=== PATIENT | female | born 1960 | race Caucasian/White ===

== ENCOUNTER 2018-05-06 18:03 | Inpatient (IN) | payer MEDICARE, MEDICAID, SELFPAY ==
[2018-05-06] VITALS (24 sets, daily range): BP systolic 73–143; BP diastolic 42–113; PULSE 85–133; RESP 4–28; TEMP 36.5–38.4; O2SAT 88–95
[2018-05-06 19:19] LABS: Lactate-non-spesis 2.2 mmol/l (0.6-1.4)
[2018-05-06 19:21] LABS: Abs Immature Grans 0.01 k/cumm (0.0-0.09); Absolute Basophil Count 0.02 k/cumm (0.0-0.2); Absolute Eosinophil Count 0.13 k/cumm (0.0-0.7); Absolute Lymphocyte Count 1.55 k/cumm (1.2-3.4); Absolute Monocyte Count 0.46 k/cumm (0.11-0.7); Absolute Neutrophil Count 4.17 k/cumm (1.2-6.7); Basophils % 0.3; Eosinophils % 2.1; HGB 12.2 g/dL (12.0-15.5); Immature Grans % 0.2; Lymphocytes % 24.4; Mean Corp. HGB Concentration 32.1 g/dL (32.0-36.0); Mean Corpuscular Hemoglobin 29.7 pg (27.0-33.0); Mean Corpuscular Volume 92.5 fL (80-95); Mean Platelet Volume 9.3 fL (8.0-11.0); Monocytes % 7.3; Neutrophils % 65.7; Platelet Count 204 x1000/uL (130-400); RBC 4.11 m/cumm (4.00-5.20); RBC Distribution Width 14.9 % (11.7-14.6); White Blood Cell Count 6.34 k/cumm (4.4-10.8)
[2018-05-06 19:34] LABS: ALT 21 U/L (12-78); AST 27 U/L (15-37); Albumin 3.3 g/dL (3.4-5.0); Alkaline Phosphatase 113 U/L (46-116); Anion Gap 7.9 mmol/L (3-11); BUN 12 mg/dL (7-18); Bilirubin, Total 0.4 mg/dL (0.2-1.0); CO2 28.1 mmol/L (21.0-32.0); CREATININE 1.47 mg/dL (0.55-1.02); Calcium 8.2 mg/dL (8.5-10.1); Chloride 100 mmol/L (98-107); Estimated GFR 36.38 (mL/min/1.73m2); Glucose 111 mg/dL (70-100); Potassium 3.7 mmol/L (3.5-5.1); Sodium 136 mmol/L (136-145); Total Protein 7.7 g/dL (6.4-8.2)
[2018-05-06 19:43] LABS: NT-proBNP 284 pg/mL; Troponin I < 0.02 ng/mL (0.00-0.06)
--- NOTE | 2018-05-06 19:50 | NUR.NOTE ---
Nursing Note: Pt awake and alert, no acute distress. currently off unit getting XR. states she normally does not wear oxygen, sating 92% on 2L NC. Port-a-cath accessed by Tyler GRACIA. Pt states she has hx of breat cancer but it not currently on radiation or chemo tx. will continue to monitor.
[2018-05-06 19:53] LABS: D-Dimer 1315 ng/mlFEU (<500)
--- NOTE | 2018-05-06 19:55 | DI.RAD_ITS ---
SYMPTOM/DIAGNOSIS: COUGH, SOB, H/O BREAST CA PA AND LATERAL CHEST: Comparison is made with 04/03/17. Cardiac silhouette appears stable. The tip of the indwelling central venous catheter is in good position in the superior vena cava. Pulmonary vasculature is within normal limits. There are increased lung markings in the left base medially. This may represent atelectasis or pneumonia. No other infiltrates, effusions or pneumothoraces are identified. Degenerative changes are seen in the spine. IMPRESSION: Left basilar infiltrate medially. This may represent atelectasis or pneumonia.
--- NOTE | 2018-05-06 20:05 | DI.VRAD_ITS ---
EXAM: XR Chest, 2 Views EXAM DATE/TIME: 05/06/2018 6:49 PM CLINICAL HISTORY: 58 years old, female; Signs and symptoms; Cough; Prior surgery; Surgery date: 1-6 months; Surgery type: Left mastectomy in march. ; Patient HX: Cough, SOB, abdominal issues since today. TECHNIQUE: XR of the chest, 2 views. COMPARISON: CR CHEST 2 VIEWS PA,LAT 04/03/2017 10:07 AM FINDINGS: Tubes, catheters and devices: Indwelling central venous catheter port tip superimposed over the lower SVC. Lungs: Minimal patchy density in the left medial lung base on the PA radiograph, likely posterior on the lateral study. Differential diagnosis includes atelectasis and small pneumonia. Clear right lung. Pleural space: No pleural effusion or pneumothorax. Heart/Mediastinum: Unremarkable. No cardiomegaly. Bones/joints: Unremarkable. IMPRESSION: Small area of left lower lobe airspace disease. Differential diagnosis includes atelectasis and pneumonia. Dictated and Authenticated by: Ortiz Mclean MD. Ordering:SIMIN Cuevas MD
[2018-05-06] MEDS: Hydrocortisone 10 MG TAB 20 MG PO (20:07)
[2018-05-06] MEDS: Albuterol/Ipratropium 3 ML UPD VIAL UPD (20:20)
[2018-05-06] MEDS: Oseltamivir 75 MG CAP PO (20:21)
--- NOTE | 2018-05-06 20:23 | NUR.NOTE ---
Nursing Note: Pt on neb tx, no acute resp ditress, sob at rest 89% on 2L NC, bumped to 3L . + flu, meds given as ordered. LS exp wheezes and dim throughout. occ productive cough. IVF running through port-a-cath. NSR on personnel monitor. taklen po fluids with out issue. awaiting bed placement for med surg admission. will continue to monitor, call light in reach.
--- NOTE | 2018-05-06 20:43 | ED.GENADUL_ITS ---
Discharge Plan Disposition Condition: Improving Discharge Details Chief Complaint: GenMedical Reason For Visit: INFLUENZA, HYPOTENSION, HYPOXIA Admit Date/Time: 05/06/18 20:30 Admit Provider: Gm Hutson Attending Provider: Terry Fernandez Primary Care Provider: JENNI DELUNA ED Provider: Faith Alcazar Discharge Instructions Activity:: Activity as Tolerated Equipment/Supplies:: Resume home health services and [facility] oxygen home o2 Diet:: Carb Counting Discharge Orders Discharge Orders: Discharge Order (Routine); Ordered 05/10/18 Ordered By: Ami Sanchez Discharge Data Discharge Date/Time-TO BE ENTERED AT DEPARTURE: 05/06/18 21:45 Medical Decision Making Candace Austin is a 58-year-old woman with history of breast cancer status post recent resection now in remission on oral hormonal therapy, COPD, diabetes, hypo-pituitaries him presenting to the emergency department with cough, generalized body aches, mild shortness of breath with exertion for the past week and diarrhea today. On exam patient is hypotensive 91/55. Nontoxic appearing. Lungs are clear to auscultation. Concern for pneumonia versus influenza versus less likely PE, ACS, CHF versus other. Possible early sepsis. Exam/history is not consistent with meningitis, acute aortic process, acute emergent abdominal process. Plan for EKG, chest x-ray, screening labs, flu swab, IV fluid hydration. I discussed the patient with Dr. Johnson of endocrinology at [facility], who recommended patient receive 20 mg of hydrocortisone at this time, with doubling of her hydrocortisone dose for tomorrow. No further recommendations at this time. EKG interpreted by me: Shows sinus rhythm at 89, normal axis, no acute ischemic changes, nondiagnostic EKG. Lactate 2.2, creatinine elevated at 1.47. Normal white count. Influenza positive. On reassessment patient reports that she feels unchanged. She does have some hypoxia to 88-89% on room air. Patient placed on 3 L of nasal cannula with O2 sat 91-92%. Plan for Tamiflu. Chest x-ray shows small area of left lower lobe airspace disease, possible atelectasis versus pneumonia. Given patient is afebrile, no white count and flu positive, will hold antibiotics at this time. D-dimer is elevated, however given patient is not tachycardic, has no chest pain, and shortness of breath is only mild with exertion doubt PE as etiology in setting of overall clinical picture. Will hold CT chest at this time. Plan for admission for influenza and hypoxia, hypotension with underlying comorbidities. Clinical impression: Influenza, hypertension, hypoxia Disposition: [facility] inpatient Medical Records Medical records reviewed: Yes I reviewed the patient's medical records. Lab Data Lab results reviewed: Yes I reviewed the patient's lab results. 05/06/18 19:14 Nasopharynx Influenza Types A,B Antigen - Final Laboratory Tests Range/Units 05/06/18 05/06/18 05/06/18 19:13 19:13 19:13 WBC (4.4-10.8) k/cumm RBC (4.00-5.20) m/cumm Hgb (12.0-15.5) g/dL Hct (36.0-46.0) % MCV (80-95) fL MCH (27.0-33.0) pg MCHC (32.0-36.0) g/dL RDW (11.7-14.6) % Plt Count (130-400) x1000/uL MPV (8.0-11.0) fL Immature Gran % Neutrophils % Lymphocytes % Monocytes % Eosinophils % Basophils % Absolute Neutrophils (1.2-6.7) k/cumm Absolute Lymphocytes (1.2-3.4) k/cumm Absolute Monocytes (0.11-0.7) k/cumm Absolute Eosinophils (0.0-0.7) k/cumm Absolute Basophils (0.0-0.2) k/cumm D-Dimer (<500) ng/mlFEU Sodium (136-145) mmol/L 136 Potassium (3.5-5.1) mmol/L 3.7 Chloride (98-107) mmol/L 100 Carbon Dioxide (21.0-32.0) mmol/L 28.1 Anion Gap (3-11) mmol/L 7.9 BUN (7-18) mg/dL 12 Creatinine (0.55-1.02) mg/dL 1.47 H Estimated GFR/1.73 m2 (mL/min/1.73m2) 36.38 Glucose (70-100) mg/dL 111 H Lactate (0.6-1.4) mmol/l 2.2 H Calcium (8.5-10.1) mg/dL 8.2 L Total Bilirubin (0.2-1.0) mg/dL 0.4 AST (15-37) U/L 27 ALT (12-78) U/L 21 Alkaline Phosphatase (46-116) U/L 113 Troponin I (0.00-0.06) ng/mL < 0.02 NT-Pro-B Natriuret Pep ( - 299) pg/mL 284 Total Protein (6.4-8.2) g/dL 7.7 Albumin (3.4-5.0) g/dL 3.3 L Range/Units 05/06/18 05/06/18 19:13 19:13 WBC (4.4-10.8) k/cumm 6.34 RBC (4.00-5.20) m/cumm 4.11 Hgb (12.0-15.5) g/dL 12.2 Hct (36.0-46.0) % 38.0 MCV (80-95) fL 92.5 MCH (27.0-33.0) pg 29.7 MCHC (32.0-36.0) g/dL 32.1 RDW (11.7-14.6) % 14.9 H Plt Count (130-400) x1000/uL 204 MPV (8.0-11.0) fL 9.3 Immature Gran % 0.2 Neutrophils % 65.7 Lymphocytes % 24.4 Monocytes % 7.3 Eosinophils % 2.1 Basophils % 0.3 Absolute Neutrophils (1.2-6.7) k/cumm 4.17 Absolute Lymphocytes (1.2-3.4) k/cumm 1.55 Absolute Monocytes (0.11-0.7) k/cumm 0.46 Absolute Eosinophils (0.0-0.7) k/cumm 0.13 Absolute Basophils (0.0-0.2) k/cumm 0.02 D-Dimer (<500) ng/mlFEU 1315 H Sodium (136-145) mmol/L Potassium (3.5-5.1) mmol/L Chloride (98-107) mmol/L Carbon Dioxide (21.0-32.0) mmol/L Anion Gap (3-11) mmol/L BUN (7-18) mg/dL Creatinine (0.55-1.02) mg/dL Estimated GFR/1.73 m2 (mL/min/1.73m2) Glucose (70-100) mg/dL Lactate (0.6-1.4) mmol/l Calcium (8.5-10.1) mg/dL Total Bilirubin (0.2-1.0) mg/dL AST (15-37) U/L ALT (12-78) U/L Alkaline Phosphatase (46-116) U/L Troponin I (0.00-0.06) ng/mL NT-Pro-B Natriuret Pep ( - 299) pg/mL Total Protein (6.4-8.2) g/dL Albumin (3.4-5.0) g/dL ECG Data Attestation: I personally reviewed and interpreted this ECG (s) as follows: HPI General Mode of arrival: wheelchair . Date/Time Provider Initiated Documentation: 05/06/18 18:24 . Limitations to Documentation: no limitations . Information obtained by: patient, RN notes reviewed and old records reviewed . HPI Narrative: Candace Austin is a 58-year-old woman with history of obesity, COPD, breast cancer, diabetes, pituitary gland resection presenting to the cough, shortness of breath, diarrhea, generalized body aches. Patient reports that she had left breast resection for breast cancer 1 month ago, and is currently on oral hormonal therapy. No chemotherapy, no radiation. Patient reports that for the past week she has had cough body aches, and mild shortness of breath. She has been drinking fluids but has had some decreased appetite. Had 3 episodes of diarrhea earlier today, the diarrhea seems to have stopped. No vomiting, no fever, no rash, no numbness/weakness. Patient takes hydrocortisone 25 mg daily after pituitary resection in the past. Patient reports that she does have oxygen at home, though very rarely uses it for her COPD. She reports that her baseline O2 saturation is 93%. Related Data Home Medications Medication Instructions Recorded Confirmed Lantus U-100 Insulin 50 units SQ BID 04/03/17 05/06/18 Lyrica 200 mg PO TID 04/03/17 05/06/18 Novolog U-100 Insulin aspart 30 units SQ TID 04/03/17 05/06/18 Spiriva Respimat 1 puff INHALATION DAILY 04/03/17 05/06/18 Symbicort 2 puff INHALATION BID 04/03/17 05/06/18 aspirin [Aspir-81] 81 mg PO DAILY 04/03/17 05/06/18 atorvastatin [Lipitor] 20 mg PO HS 04/03/17 05/06/18 carbamazepine 200 mg PO BID 04/03/17 05/06/18 cetirizine [Zyrtec] 10 mg PO DAILY 04/03/17 05/06/18 cyanocobalamin (vitamin B-12) 1,000 mcg PO DAILY 04/03/17 05/06/18 [Vitamin B-12] diphenoxylate-atropine [Lomotil] 1 tab PO PRN PRN 04/03/17 05/06/18 duloxetine [Cymbalta] 60 mg PO HS 04/03/17 05/06/18 ferrous sulfate 325 mg PO TID 04/03/17 05/06/18 folic acid 1 mg PO DAILY 04/03/17 05/06/18 montelukast [Singulair] 10 mg PO DAILY 04/03/17 05/06/18 ondansetron HCl [Zofran] 8 mg PO TID PRN 04/03/17 05/06/18 dulaglutide [Trulicity] 1.5 mg SUBCUT QWEEK 05/06/18 05/06/18 hydrocortisone 5 mg PO DAILY 05/06/18 05/06/18 hydrocortisone 20 mg PO DAILY 05/06/18 05/06/18 levothyroxine 150 mcg PO DAILY 05/06/18 05/06/18 lisinopril 5 mg PO DAILY 05/06/18 05/06/18 benzonatate 200 mg PO TID PRN #15 cap 05/10/18 guaifenesin [Mucinex] 600 mg PO BID #10 tab 05/10/18 hydrocortisone 10 mg PO DAILY #61 tab 05/10/18 levofloxacin [Levaquin] 750 mg PO DAILY #5 tab 05/10/18 oseltamivir [Tamiflu] 75 mg PO BID #6 cap 05/10/18 Previous Rx's Medication Instructions Recorded benzonatate 200 mg PO TID PRN #15 cap 05/10/18 guaifenesin [Mucinex] 600 mg PO BID #10 tab 05/10/18 hydrocortisone 10 mg PO DAILY #61 tab 05/10/18 levofloxacin [Levaquin] 750 mg PO DAILY #5 tab 05/10/18 oseltamivir [Tamiflu] 75 mg PO BID #6 cap 05/10/18 Allergies Allergy/AdvReac Type Severity Reaction Status Date / Time bee venom protein (honey bee) Allergy Unknown Unverified 05/06/18 18:23 Latex, Natural Rubber AdvReac Intermediate Unverified 05/06/18 18:23 adhesive tape AdvReac Mild Unverified 05/06/18 18:23 General Stated Complaint: GenMedical CARMEN: 3 Review of Systems Review of Systems Constitutional: denies fevers Eyes: denies eye pain ENT: denies facial pain, dental pain, sore throat Cardiovascular: denies chest pain, edema Respiratory: Reports SOB, cough GI: denies abdominal pain, vomiting, diarrhea : denies flank pain MSK: denies back pain, neck pain, arthralgias, myalgias Skin: denies rash Neuro: denies headaches, numbness, weakness PFSH Medical History Obesity (Chronic) Dyslipidemia (Chronic) Hypothyroidism (Chronic) Depression (Chronic) Pneumonia (Acute) Influenza B (Acute) Diabetes mellitus (Chronic) COPD (chronic obstructive pulmonary disease) (Chronic) History of breast cancer (Chronic) Hypopituitarism (Chronic) Social History Smoking/Tobacco Use Status: Former Tobacco Use Do you feel safe in your relationship?: Yes Additional Social history: , with 2 children. She is not working and on disability. Has a history of tobacco, quit in 1992. Reports rare use of alcohol only. Exam Narrative Exam Narrative: Constitutional: [id number], pleasant, conversing normally HENT: head atraumatic/normocephalic/normal inspection, mucous membranes moist Eyes: conjunctiva normal, sclera normal, pupils 3mm b/l Neck: no stridor, normal ROM, trachea midline Chest: Healing surgical incision over left chest, no drainage or fluctuance Resp: normal work of breathing, LCTAB Cardio: normal rate, normal rhythm, no murmur appreciated Back: normal inspection, no rash Skin: warm, dry, normal color, no rash Neuro: alert, not altered, grossly non-focal, normal tone Psych: normal mood, normal affect, normal behavior Course Vital Signs Temperature 36.9 C 05/06/18 18:21 Pulse 97 H 05/06/18 18:21 Respiratory Rate 18 05/06/18 18:21 Blood Pressure 91/55 L 05/06/18 18:21 Pulse Oximetry 91 L 05/06/18 18:21 Temperature 36.9 C 05/06/18 18:21 Pulse 97 H 05/06/18 18:21 Respiratory Rate 18 05/06/18 18:21 Respiratory Effort Incrsd Work of Breathing 05/06/18 18:22 Blood Pressure 91/55 L 05/06/18 18:21 Blood Pressure Position Sitting 05/06/18 18:21 Pulse Oximetry 91 L 05/06/18 18:21 Oxygen Delivery Method Room Air 05/06/18 18:21 Oxygen Flow Rate 0 05/06/18 18:21 Pain Level 0 05/06/18 18:21
--- NOTE | 2018-05-06 22:51 | HPE_ITS ---
Date of service: 05/06/18 Time of Service: 22:48 Assessment and Plan (1) Influenza B: Current visit: Yes Status: Acute Continue oseltamivir. Monitor creatinine carefully and renally dose medication if warranted. (2) Pneumonia: Current visit: Yes Status: Acute Evidence of potential left lower lobe infiltrate by imaging in patient complaining of cough with purulent sputum and found to be hypoxic. Potential for bacterial co-infection with pneumonia in patient currently diagnosed with influenza. Continue oseltamivir as above, and as the patient is at a high risk for serious complications from influenza given her history of chronic lung disease, DM, and morbid obesity will cover her aggressively with broad-spectrum antibiotics for potential pneumonia as well. Initiate Levo floxacin as well as vancomycin for additional MRSA coverage. Also check blood cultures and sputum culture, initiate IV fluids, monitor blood pressure carefully, and recheck lactate. (3) SIERRA (acute kidney injury): Current visit: Yes Status: Acute Potentially prerenal in the setting of fever and acute illness. Continue IV fluids, renally dose medications when appropriate, and avoid nephrotoxins. (4) COPD (chronic obstructive pulmonary disease): Current visit: Yes Status: Chronic Continue home inhalers, duo nebs on a as needed basis. (5) Hypopituitarism: Current visit: Yes Status: Chronic Patient chronically takes hydrocortisone at home. Given acute illness will stress dose with IV hydrocortisone, and wean as infection is treated. (6) DVT prophylaxis: Current visit: Yes Status: Acute Heparin SC. PPI for GI prophylaxis as well, given acute illness as well as need for steroid therapy. (7) Advance directive discussed with patient: Current visit: Yes Status: Acute DNR/DNI confirmed. Daughter present during discussion with patient. History of Present Illness Chief Complaint: Dyspnea Narrative: 58 year woman with a past medical history significant for Obesity and IDDM, being admitted from [facility] Emergency Department with a diagnosis of Influenza and potential pneumonia. Mrs. Maynard has a prior medical history significant for IDDM, COPD, dyslipid emia, depression, hypothyroidism, and obesity. She was diagnosed with breast cancer in the past, s/p resections in the past and now a left-sided mastectomy, chronically maintained on hormonal therapy. She also endorses a history of a pituitary mass, s/p resection with resultant Hypopituitarism. The patient presented to the ED at the behest of her daughter, with complaints of a 2-day history of cough with green sputum production, dyspnea, and myalgias. Workup in the ED was remarkable for mildly elevated lactate, SIERRA, and a positive flu swab. Her CXR also showed a LLL opacity, potentially on the basis of infiltrate and pneumonia. She was also found to be mildly hypoxic on room air, and hypotensive by exam. She was admitted for further evaluation and treatment. Review of Systems Review of Systems All systems reviewed & are unremarkable except as noted in HPI and below [facility] Medical History Obesity (Chronic) Dyslipidemia (Chronic) Hypothyroidism (Chronic) Depression (Chronic) Pneumonia (Acute) Influenza B (Acute) Diabetes mellitus (Chronic) COPD (chronic obstructive pulmonary disease) (Chronic) History of breast cancer (Chronic) Hypopituitarism (Chronic) Social History additional social history: , with 2 children. She is not working and on disability. Has a history of tobacco, quit in 1992. Reports rare use of alcohol only. Meds Home Medications Medication Instructions Recorded Confirmed Type Lantus U-100 Insulin 50 units SQ BID 04/03/17 05/06/18 History Lyrica 200 mg PO TID 04/03/17 05/06/18 History Novolog U-100 Insulin aspart 30 units SQ TID 04/03/17 05/06/18 History Spiriva Respimat 1 puff INHALATION DAILY 04/03/17 05/06/18 History Symbicort 2 puff INHALATION BID 04/03/17 05/06/18 History aspirin [Aspir-81] 81 mg PO DAILY 04/03/17 05/06/18 History atorvastatin [Lipitor] 20 mg PO HS 04/03/17 05/06/18 History carbamazepine 200 mg PO BID 04/03/17 05/06/18 History cetirizine [Zyrtec] 10 mg PO DAILY 04/03/17 05/06/18 History cyanocobalamin (vitamin B-12) 1,000 mcg PO DAILY 04/03/17 05/06/18 History [Vitamin B-12] diphenoxylate-atropine [Lomotil] 1 tab PO PRN PRN 04/03/17 05/06/18 History duloxetine [Cymbalta] 60 mg PO HS 04/03/17 05/06/18 History ferrous sulfate 325 mg PO TID 04/03/17 05/06/18 History folic acid 1 mg PO DAILY 04/03/17 05/06/18 History montelukast [Singulair] 10 mg PO DAILY 04/03/17 05/06/18 History ondansetron HCl [Zofran] 8 mg PO TID PRN 04/03/17 05/06/18 History dulaglutide [Trulicity] 1.5 mg SUBCUT QWEEK 05/06/18 05/06/18 History hydrocortisone 5 mg PO DAILY 05/06/18 05/06/18 History hydrocortisone 20 mg PO DAILY 05/06/18 05/06/18 History levothyroxine 150 mcg PO DAILY 05/06/18 05/06/18 History lisinopril 5 mg PO DAILY 05/06/18 05/06/18 History Allergies Allergy/AdvReac Type Severity Reaction Status Date / Time bee venom protein (honey bee) Allergy Unknown Unverified 05/06/18 18:23 Latex, Natural Rubber AdvReac Intermediate Unverified 05/06/18 18:23 adhesive tape AdvReac Mild Unverified 05/06/18 18:23 Exam Narrative Exam Narrative: General: Patient appears comfortable, AAOX3, NAD Neck: Supple CV: Regular, mildly tachycardic, S1S2, No rubs, murmurs, or gallops. Pulmonary: Minimal bibasilar crackles with clear air entry otherwise. Minimal wheezing limited to the bases Abdomen: + Bowel Sounds, soft, nontender, nondistended, obese in contour Vascular: Bilateral nonpitting lower extremity edema, with chronic appearing hyperpigmentation of the skin Neurologic: CN II-XII grossly intact. No focal deficits. Psych: Normal mood and affect. Results Imaging Chest x-ray: report reviewed Additional studies: EXAM: XR Chest, 2 Views EXAM DATE/TIME: 05/06/2018 6:49 PM CLINICAL HISTORY: 58 years old, female; Signs and symptoms; Cough; Prior surgery; Surgery date: 1-6 months; Surgery type: Left mastectomy in march. ; Patient HX: Cough, SOB, abdominal issues since today. TECHNIQUE: XR of the chest, 2 views. COMPARISON: CR CHEST 2 VIEWS PA,LAT 04/03/2017 10:07 AM FINDINGS: Tubes, catheters and devices: Indwelling central venous catheter port tip superimposed over the lower SVC. Lungs: Minimal patchy density in the left medial lung base on the PA radiograph, likely posterior on the lateral study. Differential diagnosis includes atelectasis and small pneumonia. Clear right lung. Pleural space: No pleural effusion or pneumothorax. Heart/Mediastinum: Unremarkable. No cardiomegaly. Bones/joints: Unremarkable. IMPRESSION: Small area of left lower lobe airspace disease. Differential diagnosis includes atelectasis and pneumonia. Labs : 05/06/18 19:13 05/06/18 19:13 Laboratory Results - last 24 hr 05/06/18 05/06/18 05/06/18 19:13 19:13 19:13 WBC RBC Hgb Hct MCV MCH MCHC RDW Plt Count MPV Immature Gran % Neutrophils % Lymphocytes % Monocytes % Eosinophils % Basophils % Absolute Neutrophils Absolute Lymphocytes Absolute Monocytes Absolute Eosinophils Absolute Basophils D-Dimer Sodium 136 Potassium 3.7 Chloride 100 Carbon Dioxide 28.1 Anion Gap 7.9 BUN 12 Creatinine 1.47 H Estimated GFR/1.73 m2 36.38 Glucose 111 H Lactate 2.2 H Calcium 8.2 L Total Bilirubin 0.4 AST 27 ALT 21 Alkaline Phosphatase 113 Troponin I < 0.02 NT-Pro-B Natriuret Pep 284 Total Protein 7.7 Albumin 3.3 L 05/06/18 05/06/18 19:13 19:13 WBC 6.34 RBC 4.11 Hgb 12.2 Hct 38.0 MCV 92.5 MCH 29.7 MCHC 32.1 RDW 14.9 H Plt Count 204 MPV 9.3 Immature Gran % 0.2 Neutrophils % 65.7 Lymphocytes % 24.4 Monocytes % 7.3 Eosinophils % 2.1 Basophils % 0.3 Absolute Neutrophils 4.17 Absolute Lymphocytes 1.55 Absolute Monocytes 0.46 Absolute Eosinophils 0.13 Absolute Basophils 0.02 D-Dimer 1315 H Sodium Potassium Chloride Carbon Dioxide Anion Gap BUN Creatinine Estimated GFR/1.73 m2 Glucose Lactate Calcium Total Bilirubin AST ALT Alkaline Phosphatase Troponin I NT-Pro-B Natriuret Pep Total Protein Albumin Rapid Influenza A & B Final 05/06/18-1932 RESULT POSITIVE FOR FLU B ANTIGEN. If influenza is suspected and treatment is clinically indicated, antiviral treatment should NOT be withheld from patients despite negative rapid antigen screening result. When a positive rapid antigen screening result would initiate prophylactic treatment of many potential contacts, Last Vital Signs Temp 36.5 C 05/06/18 19:38 Pulse 133 H 05/06/18 21:00 Resp 22 05/06/18 21:00 BP 122/103 H 05/06/18 21:00 Pulse Ox 91 L 05/06/18 20:30
[2018-05-06] MEDS: Pantoprazole 40 MG VIAL IVP (23:29)
[2018-05-06] MEDS: LEVOFLOXACIN 750 MG/150 ML BAG 100 MG IVPB (23:29)
[2018-05-06] MEDS: Normal Saline Flush 10 ML SYR IVP (23:29)
[2018-05-06] MEDS: Acetaminophen 325 MG TAB PO (23:30)
[2018-05-06] MEDS: Heparin 5,000 UNITS/ML VIAL 5000 UNITS SC (23:30)
[2018-05-06] MEDS: Hydrocortisone SOD SUC. 100 MG VIAL 50 MG IVP (23:30)
[2018-05-06] MEDS: DULoxetine 30 MG CAP 60 MG PO (23:30)
[2018-05-06] MEDS: Atorvastatin 20 MG TAB PO (23:30)
[2018-05-06] MEDS: Insulin Glargine 300 UNITS/3 ML PEN 50 UNITS SC (23:46)
[2018-05-07] VITALS (16 sets, daily range): BP systolic 107–152; BP diastolic 48–77; PULSE 86–100; RESP 17–22; TEMP 36.5–37.5; O2SAT 91–96
[2018-05-07] MEDS: Heparin 5,000 UNITS/ML VIAL 5000 UNITS SC ×3 (06:16→22:16)
[2018-05-07] MEDS: Hydrocortisone SOD SUC. 100 MG VIAL 50 MG IVP ×3 (06:16→22:16)
[2018-05-07] MEDS: Levothyroxine 150 MCG TAB PO (06:16)
[2018-05-07 07:13] LABS: Lactate-non-spesis 0.9 mmol/l (0.6-1.4)
[2018-05-07 07:28] LABS: Absolute Basophil Count 0.01 k/cumm (0.0-0.2); Absolute Eosinophil Count 0.04 k/cumm (0.0-0.7); Absolute Lymphocyte Count 0.67 k/cumm (1.2-3.4); Absolute Monocyte Count 0.25 k/cumm (0.11-0.7); Absolute Neutrophil Count 2.83 k/cumm (1.2-6.7); Basophils % 0.3; Eosinophils % 1.1; HCT 34.5 % (36.0-46.0); HGB 10.8 g/dL (12.0-15.5); Lymphocytes % 17.6; Mean Corp. HGB Concentration 31.3 g/dL (32.0-36.0); Mean Corpuscular Hemoglobin 29.3 pg (27.0-33.0); Mean Corpuscular Volume 93.5 fL (80-95); Mean Platelet Volume 9.5 fL (8.0-11.0); Monocytes % 6.6; Neutrophils % 74.4; Platelet Count 194 x1000/uL (130-400); RBC 3.69 m/cumm (4.00-5.20); RBC Distribution Width 14.9 % (11.7-14.6)
[2018-05-07 07:29] LABS: Anion Gap 8.6 mmol/L (3-11); BUN 12 mg/dL (7-18); CO2 27.4 mmol/L (21.0-32.0); CREATININE 1.25 mg/dL (0.55-1.02); Calcium 8.2 mg/dL (8.5-10.1); Chloride 101 mmol/L (98-107); Estimated GFR 43.87 (mL/min/1.73m2); Magnesium 1.8 mg/dL (1.8-2.4); Potassium 4.3 mmol/L (3.5-5.1); Sodium 137 mmol/L (136-145)
[2018-05-07 07:40] LABS: Glucose 212 mg/dL (70-100)
--- NOTE | 2018-05-07 08:11 | PDOC.CMIN ---
- If Service Date Differs Date of service: 05/07/18 Time of Service: 08:11 Care Management Initial Assess REASON FOR HOSPITALIZATION:: Influenza, hypotension, hypoxia PAST MEDICAL HISTORY/PAST SURGICAL HISTORY:: DM, breast CA with left mastectomy, right mastectomy planned for June 2018, COPD, hypothyroid, hypopituitary PREVIOUS FUNCTIONAL STATUS/SOCIAL/FAMILY SUPPORTS:: Candace lives at home with her daughter in [facility]. She is disabled. She has 2 daughters locally. She receives choices for care highest needs, and her daughter Kiki is her primary provider. She uses a walker for ambulation, in a wheeled walker for distance. She is dependent on her daughter for transportation to and from appointments. Her primary care is in [facility]. CURRENT FUNCTIONAL STATUS:: Candace is lying in bed, she is alert and engaged with memory care director during assessment. She states she had a left mastectomy in March 2018 she is planned to have a right mastectomy in June 2018. She is a patient of cancer Center at [facility]. She states she does well at home with her daughter, and that her daughter Kiki is her DPOA ADVANCE DIRECTIVES:: None on file at [facility] Has patient been provided with information about the portal?: Yes Did the patient sign up for the portal?: No INSURANCE COVERAGE / FINANCIAL ISSUES:: Medicare, Medicaid, choices for care highest needs. CURRENT HOME/COMMUNITY SERVICES/EQUIPMENT:: Wheeled walker, choices for care highest needs, caregiver is her daughter Kiki. PRIMARY CARE PHYSICIAN:: Jan [facility] POTENTIAL DISCHARGE NEEDS:: Follow-up appointment scheduled primary care provider prior to discharge. PATIENT/FAMILY EDUCATION NEEDS:: Discharge education, limitations, follow-up plan of care, ask me 3 and self-management. ANTICIPATED BARRIERS TO DISCHARGE:: None identified at this time peer TRANSPORTATION:: Via private car with daughter at time of discharge. PLAN:: Candace is currently receiving antibiotics, and Tamiflu. She remains on precautions in the intensive care unit. Anticipate she will be discharged home resumption of highest needs through choices for care. She will return home with her daughter in [facility].
--- NOTE | 2018-05-07 08:14 | INITIAL_ITS ---
- If Service Date Differs Date of service: 05/07/18 Time of Service: 08:11 Care Management Initial Assess REASON FOR HOSPITALIZATION:: Influenza, hypotension, hypoxia PAST MEDICAL HISTORY/PAST SURGICAL HISTORY:: DM, breast CA with left mastectomy, right mastectomy planned for June 2018, COPD, hypothyroid, hypopituitary PREVIOUS FUNCTIONAL STATUS/SOCIAL/FAMILY SUPPORTS:: Candace lives at home with her daughter in [facility]. She is disabled. She has 2 daughters locally. She receives choices for care highest needs, and her daughter Kiki is her primary provider. She uses a walker for ambulation, in a wheeled walker for distance. She is dependent on her daughter for transportation to and from appointments. Her primary care is in [facility]. CURRENT FUNCTIONAL STATUS:: Candace is lying in bed, she is alert and engaged with care management coordinator during assessment. She states she had a left mastectomy in March 2018 she is planned to have a right mastectomy in June 2018. She is a patient of cancer Center at [facility]. She states she does well at home with her daughter, and that her daughter Kiki is her DPOA ADVANCE DIRECTIVES:: None on file at [facility] Has patient been provided with information about the portal?: Yes Did the patient sign up for the portal?: No INSURANCE COVERAGE / FINANCIAL ISSUES:: Medicare, Medicaid, choices for care highest needs. CURRENT HOME/COMMUNITY SERVICES/EQUIPMENT:: Wheeled walker, choices for care highest needs, caregiver is her daughter Kiki. PRIMARY CARE PHYSICIAN:: Jan Coleman [facility] POTENTIAL DISCHARGE NEEDS:: Follow-up appointment scheduled primary care provider prior to discharge. PATIENT/FAMILY EDUCATION NEEDS:: Discharge education, limitations, follow-up plan of care, ask me 3 and self-management. ANTICIPATED BARRIERS TO DISCHARGE:: None identified at this time peer TRANSPORTATION:: Via private car with daughter at time of discharge. PLAN:: Candace is currently receiving antibiotics, and Tamiflu. She remains on precautions in the intensive care unit. Anticipate she will be discharged home resumption of highest needs through choices for care. She will return home with her daughter in [facility].
[2018-05-07] MEDS: Ferrous Sulfate 325 MG TAB PO ×3 (08:42→19:54)
[2018-05-07] MEDS: Oseltamivir 75 MG CAP PO ×2 (08:43→19:54)
[2018-05-07] MEDS: Aspirin E.C. 81 MG TABEC PO (08:43)
[2018-05-07] MEDS: Folic Acid 1 MG TAB PO (08:43)
[2018-05-07] MEDS: carBAMazepine 200 MG TAB PO ×2 (08:43→19:54)
[2018-05-07] MEDS: Cetirizine 10 MG TAB PO (08:43)
[2018-05-07] MEDS: Montelukast 10 MG TAB PO (08:43)
[2018-05-07] MEDS: Cyanocobalamin 500 MCG TAB 1000 MCG PO (08:43)
[2018-05-07] MEDS: Pregabalin 100 MG CAP 200 MG PO ×3 (08:43→19:54)
[2018-05-07] MEDS: Insulin Aspart 300 UNITS/3 ML PEN SC ×4 (09:12→22:17)
[2018-05-07] MEDS: Insulin Glargine 300 UNITS/3 ML PEN 50 UNITS SC ×2 (09:12→19:55)
--- NOTE | 2018-05-07 09:24 | PHARADMIT ---
Addendum entered by Macarena Johnson 05/08/18 11:04: Pharmacy Note Subjective pt with oneumonia,COPD, influenza, per morning report pt getting better Objective on 3L O2 with saO2 94%, Assessment vancomycin, levofloxacin, tamiflu continues Plan port culture to be drawn, PT/OT to be ordered, nystatin to be ordered Original Note: Admission Pharmacy Clinical Review INFLUENZA, HYPOTENSION, HYPOXIA, (Flu-positive) (nned to check port-tip culture) Code Status DNR/DNI Current Weight Wgt- 157.4 kg Renally Cleared and Narrow Therapeutic Index Meds CrCl~48.8 mL/min Meds-OK QTc Value / Action Taken QTc-423 na BP Control, Fever BP-139/77 Tmax- 38.4C Electrolytes reviewed Na- 137 K+4.3 Mag-1.8 DVT Prophylaxis ASA, Heparin SC Opiate Usage / Scheduled Bowel Regimen Ordered No Yes Plt/SCr for Heparin / Enoxaparin Plts-194 SCr-1.25 INR for Warfarin na H/H stable, WBC/Bands H&H- 10.8/34.5 WBC- 3.80 Antibiotic appropriateness Levaquin, Vancomycin, Tamiflu Cultures and Sensitivities Fliu-Posiitive, Blood-pending Surgical ABX d/c within 24 hr na DM control / Insulin Dosing BG-212 Aspart, Glargine Heart Failure (Check EF%) (MCKENNA's, B-Block, Diuretics) none IV to PO Switch No Home Meds Reviewed Yes Home Meds Not Ordered Lisinopril, Hydrocortisone tabs on hold while on IV Comments PATIENTS' OWN (Dulaglutide [Trulicity] 1.5 MG)
[2018-05-07 10:50] LABS: Troponin I < 0.02 ng/mL (0.00-0.06)
[2018-05-07] MEDS: Acetaminophen 325 MG TAB PO (12:06)
[2018-05-07] MEDS: Normal Saline 1,000 ML 150 ML IV (13:51)
--- NOTE | 2018-05-07 18:15 | W.PM.PROGNOT ---
Date of Service Date of service: 05/07/18 Time of Service: 12:00 Assessment and Plan (1) Influenza B: Current visit: Yes Status: Acute Continue oseltamivir. Improving (2) Pneumonia: Current visit: Yes Status: Acute CAP with hypoxia, present on admission. Now at her baseline oxygen requirement. Continue levofloxacin and vancomycin. Sputum culture pending. Blood cultures still pending. Keep current dose of steroids for tonight, start to taper tomorrow. D/c IVF. (3) COPD (chronic obstructive pulmonary disease): Current visit: Yes Status: Chronic d/c spiriva as duonebs will be scheduled. Continue symbicort, hydrocortisone; add prn albuterol, antitussives (4) SIERRA (acute kidney injury): Current visit: Yes Status: Acute Improved. At this point, clinically euvolemic - will d/c IVF and recheck Cr in am. (5) Hypopituitarism: Current visit: Yes Status: Chronic Continue IV hydrocortisone, and wean as infection is treated. (6) DVT prophylaxis: Current visit: Yes Status: Acute Heparin SC. PPI for GI prophylaxis as well, given acute illness as well as need for steroid therapy. (7) Advance directive discussed with patient: Current visit: Yes Status: Acute DNR/DNI (8) Discharge planning issues: Current visit: Yes Status: Acute Anticipated discharge home within 48 hours Subjective Interval history since last seen: Ms Maynard states she feels a lot better. She denies dizziness, chest pain. She is less short of breath. Her cough is better, but still productive of yellow green stuff. Denies nausea and vomiting. Exam Narrative Exam Narrative: General: Very pleasant obese female, laying comfortably in bed, A&OX3 HEENT: EOMI, MMM Heart: RRR, no m/r/g Lungs: wheezing on expiration B GI: abdomen is soft, nontender, nondidstended Extremities: nonpitting edema BLE's, no clubbing or cyanosis Objective Objective Clinical Data: Abnormal lab results 05/06/18 05/06/18 05/06/18 Range/Units 19:13 19:13 19:13 WBC (4.4-10.8) k/cumm RBC (4.00-5.20) m/cumm Hgb (12.0-15.5) g/dL Hct (36.0-46.0) % MCHC (32.0-36.0) g/dL RDW 14.9 H (11.7-14.6) % Absolute Lymphocytes (1.2-3.4) k/cumm D-Dimer (<500) ng/mlFEU Creatinine 1.47 H (0.55-1.02) mg/dL Glucose 111 H (70-100) mg/dL Lactate 2.2 H (0.6-1.4) mmol/l Calcium 8.2 L (8.5-10.1) mg/dL Albumin 3.3 L (3.4-5.0) g/dL 05/06/18 05/07/18 05/07/18 Range/Units 19:13 06:58 06:58 WBC 3.80 L D (4.4-10.8) k/cumm RBC 3.69 L (4.00-5.20) m/cumm Hgb 10.8 L (12.0-15.5) g/dL Hct 34.5 L (36.0-46.0) % MCHC 31.3 L (32.0-36.0) g/dL RDW 14.9 H (11.7-14.6) % Absolute Lymphocytes 0.67 L (1.2-3.4) k/cumm D-Dimer 1315 H (<500) ng/mlFEU Creatinine 1.25 H (0.55-1.02) mg/dL Glucose 212 H D (70-100) mg/dL Lactate (0.6-1.4) mmol/l Calcium 8.2 L (8.5-10.1) mg/dL Albumin (3.4-5.0) g/dL Vital Signs Temperature 36.5 C 05/07/18 14:48 Temperature Source Temporal Artery Scan 05/07/18 14:48 Pulse 88 05/07/18 14:48 Pulse Rhythm Regular 05/07/18 14:48 Pulse 92 H 05/07/18 08:00 Respiratory Rate 18 05/07/18 14:48 Respiratory Effort 05/07/18 14:48 Respiratory Depth Normal 05/07/18 14:48 Respiratory Pattern Normal 05/07/18 14:48 Blood Pressure 123/54 L 05/07/18 14:48 Blood Pressure Mean 68 05/07/18 12:12 Blood Pressure Position Supine 05/07/18 08:40 Pulse Oximetry 95 05/07/18 14:48 Oxygen Delivery Method Nasal Cannula 05/07/18 14:48 Oxygen Flow Rate 2 05/07/18 14:48 Pain Level 8 05/07/18 14:48 Comment 05/07/18 14:48 Intake & Output 05/06/18 05/07/18 05/07/18 23:59 11:59 23:59 Intake Total 1090 / 1720 630 / 1720 Output Total 250 / 250 Balance 840 / 1470 630 / 1470 Weight 157.397 kg 157.397 kg Intake: IV 500 / 650 150 / 650 Oral 590 / 1070 480 / 1070 Output: Urine 250 / 250 Other: Urine Color Yellow Urine Appearance Clear Urine Odor None Comment incontinent a very large amount Voiding Methods Bedside Commode Laboratory Results WBC 3.80 k/cumm (4.4-10.8) L D 05/07/18 06:58 RBC 3.69 m/cumm (4.00-5.20) L 05/07/18 06:58 Hgb 10.8 g/dL (12.0-15.5) L 05/07/18 06:58 Hct 34.5 % (36.0-46.0) L 05/07/18 06:58 MCV 93.5 fL (80-95) 05/07/18 06:58 MCH 29.3 pg (27.0-33.0) 05/07/18 06:58 MCHC 31.3 g/dL (32.0-36.0) L 05/07/18 06:58 RDW 14.9 % (11.7-14.6) H 05/07/18 06:58 Plt Count 194 x1000/uL (130-400) 05/07/18 06:58 MPV 9.5 fL (8.0-11.0) 05/07/18 06:58 Immature Gran % 0.0 05/07/18 06:58 Neutrophils % 74.4 05/07/18 06:58 Lymphocytes % 17.6 05/07/18 06:58 Monocytes % 6.6 05/07/18 06:58 Eosinophils % 1.1 05/07/18 06:58 Basophils % 0.3 05/07/18 06:58 Absolute Neutrophils 2.83 k/cumm (1.2-6.7) 05/07/18 06:58 Absolute Lymphocytes 0.67 k/cumm (1.2-3.4) L 05/07/18 06:58 Absolute Monocytes 0.25 k/cumm (0.11-0.7) 05/07/18 06:58 Absolute Eosinophils 0.04 k/cumm (0.0-0.7) 05/07/18 06:58 Absolute Basophils 0.01 k/cumm (0.0-0.2) 05/07/18 06:58 D-Dimer 1315 ng/mlFEU (<500) H 05/06/18 19:13 Sodium 137 mmol/L (136-145) 05/07/18 06:58 Potassium 4.3 mmol/L (3.5-5.1) 05/07/18 06:58 Chloride 101 mmol/L (98-107) 05/07/18 06:58 Carbon Dioxide 27.4 mmol/L (21.0-32.0) 05/07/18 06:58 Anion Gap 8.6 mmol/L (3-11) 05/07/18 06:58 BUN 12 mg/dL (7-18) 05/07/18 06:58 Creatinine 1.25 mg/dL (0.55-1.02) H 05/07/18 06:58 Estimated GFR/1.73 m2 43.87 (mL/min/1.73m2) 05/07/18 06:58 Glucose 212 mg/dL (70-100) H D 05/07/18 06:58 Lactate 0.9 mmol/l (0.6-1.4) 05/07/18 06:58 Calcium 8.2 mg/dL (8.5-10.1) L 05/07/18 06:58 Magnesium 1.8 mg/dL (1.8-2.4) 05/07/18 06:58 Total Bilirubin 0.4 mg/dL (0.2-1.0) 05/06/18 19:13 AST 27 U/L (15-37) 05/06/18 19:13 ALT 21 U/L (12-78) 05/06/18 19:13 Alkaline Phosphatase 113 U/L (46-116) 05/06/18 19:13 Troponin I < 0.02 ng/mL (0.00-0.06) 05/07/18 06:58 NT-Pro-B Natriuret Pep 284 pg/mL (-299) 05/06/18 19:13 Total Protein 7.7 g/dL (6.4-8.2) 05/06/18 19:13 Albumin 3.3 g/dL (3.4-5.0) L 05/06/18 19:13
[2018-05-07] MEDS: guaiFENesin 600 MG TABCR PO (19:54)
[2018-05-07] MEDS: DULoxetine 30 MG CAP 60 MG PO (22:16)
[2018-05-07] MEDS: Atorvastatin 20 MG TAB PO (22:16)
[2018-05-07] MEDS: Pantoprazole 40 MG VIAL IVP (23:19)
[2018-05-07] MEDS: LEVOFLOXACIN 750 MG/150 ML BAG 100 MG IVPB (23:19)
[2018-05-07] MEDS: Normal Saline Flush 10 ML SYR IVP (23:20)
[2018-05-08] MEDS: Hydrocortisone SOD SUC. 100 MG VIAL 50 MG IVP ×2 (05:54→13:56)
[2018-05-08] MEDS: Heparin 5,000 UNITS/ML VIAL 5000 UNITS SC ×3 (05:54→21:24)
[2018-05-08] MEDS: Normal Saline Flush 10 ML SYR IVP ×3 (05:54→13:57)
[2018-05-08] MEDS: Levothyroxine 150 MCG TAB PO (05:54)
--- NOTE | 2018-05-08 08:25 | PDOC.CMPRO ---
- If Service Date Differs Date of service: 05/08/18 Time of Service: 08:25 Care Management Progress Note S/O: Candace remains acute today she continues on IV antibiotics and Tamiflu. She will be discharged home when she is medically ready per provider. Her daughter is here with her today providing support. A:Candace is a 58 year old female admitted with influenza and pneumonia P:Candace remains acute she will return home when medically ready. Resumption of choices for care highest needs and oxygen through [facility]. Her daughter will transport her home when medically ready.
--- NOTE | 2018-05-08 08:33 | CMPROGNOTE_ITS ---
- If Service Date Differs Date of service: 05/08/18 Time of Service: 08:25 Care Management Progress Note S/O: Candace remains acute today she continues on IV antibiotics and Tamiflu. She will be discharged home when she is medically ready per provider. Her daughter is here with her today providing support. A:Candace is a 58 year old female admitted with influenza and pneumonia P:Candace remains acute she will return home when medically ready. Resumption of choices for care highest needs and oxygen through [facility]. Her daughter will transport her home when medically ready.
[2018-05-08 08:38] LABS: Absolute Basophil Count 0.01 k/cumm (0.0-0.2); Absolute Eosinophil Count 0.04 k/cumm (0.0-0.7); Absolute Lymphocyte Count 0.79 k/cumm (1.2-3.4); Absolute Monocyte Count 0.36 k/cumm (0.11-0.7); Absolute Neutrophil Count 3.42 k/cumm (1.2-6.7); Basophils % 0.2; Eosinophils % 0.9; HCT 32.6 % (36.0-46.0); HGB 10.5 g/dL (12.0-15.5); Lymphocytes % 17.1; Mean Corp. HGB Concentration 32.2 g/dL (32.0-36.0); Mean Corpuscular Hemoglobin 29.8 pg (27.0-33.0); Mean Corpuscular Volume 92.6 fL (80-95); Mean Platelet Volume 9.5 fL (8.0-11.0); Monocytes % 7.8; Platelet Count 187 x1000/uL (130-400); RBC 3.52 m/cumm (4.00-5.20); RBC Distribution Width 14.8 % (11.7-14.6); White Blood Cell Count 4.62 k/cumm (4.4-10.8)
[2018-05-08 08:54] VITALS: BP 123/78; PULSE 84; RESP 20; TEMP 36.7; O2SAT 92
[2018-05-08] MEDS: Insulin Glargine 300 UNITS/3 ML PEN 50 UNITS SC ×2 (08:55→19:28)
[2018-05-08] MEDS: Insulin Aspart 300 UNITS/3 ML PEN SC ×4 (08:55→21:28)
[2018-05-08] MEDS: Folic Acid 1 MG TAB PO (08:57)
[2018-05-08] MEDS: guaiFENesin 600 MG TABCR PO ×2 (08:57→19:27)
[2018-05-08] MEDS: Pregabalin 100 MG CAP 200 MG PO ×3 (08:57→19:27)
[2018-05-08] MEDS: Ferrous Sulfate 325 MG TAB PO ×3 (08:58→19:27)
[2018-05-08] MEDS: Cyanocobalamin 500 MCG TAB 1000 MCG PO (08:58)
[2018-05-08] MEDS: Oseltamivir 75 MG CAP PO ×2 (08:58→19:27)
[2018-05-08] MEDS: Montelukast 10 MG TAB PO (08:58)
[2018-05-08] MEDS: carBAMazepine 200 MG TAB PO ×2 (08:58→19:27)
[2018-05-08] MEDS: Cetirizine 10 MG TAB PO (08:58)
[2018-05-08] MEDS: Aspirin E.C. 81 MG TABEC PO (08:58)
[2018-05-08 09:05] LABS: Anion Gap 8.9 mmol/L (3-11); BUN 14 mg/dL (7-18); CO2 27.1 mmol/L (21.0-32.0); Calcium 8.3 mg/dL (8.5-10.1); Chloride 101 mmol/L (98-107); Glucose 222 mg/dL (70-100); Magnesium 1.7 mg/dL (1.8-2.4); Potassium 4.2 mmol/L (3.5-5.1); Sodium 137 mmol/L (136-145)
--- NOTE | 2018-05-08 11:37 | W.INDIABCONS ---
Date of service: 05/08/18 Time of Service: 11:37 Diabetes Inpatient Consult DESCRIPTION/ASSESSMENT: Appreciate diabetes consult for Candace Maynard who is hospitalized with influenza. A1c 7.9 BMI 52 Ms. Maynard manages diabetes at home with Trulicity, glargine 50units twice daily, and Novolog 30u with each meal. Here she is receiving the same basal insulin, but only moderate insulin correction, and trulicity. Blood sugars 217-271 during this stay. She is eating ~30-35 grams carbohydrate for recorded meals. She is not visited today due to her condition. INTERVENTION: Suggest addition of mealtime insulin for food given her high blood sugars. She may benefit from a trial of half her usual mealtime insulin at 15 units and increase insulin correction to resistant given her BMI. PLAN: Suggest addition of mealtime insulin at half her usual dose and/or resistant insulin correction Will f/u with her when her condition is improved. Time Spent in Nutritional Counseling and Treatment: 0 face to face inpatient
--- NOTE | 2018-05-08 11:46 | DM INPTCON_ITS ---
Date of service: 05/08/18 Time of Service: 11:37 Diabetes Inpatient Consult DESCRIPTION/ASSESSMENT: Appreciate diabetes consult for Candace Maynard who is hospitalized with influenza. A1c 7.9 BMI 52 Ms. Maynard manages diabetes at home with Trulicity, glargine 50units twice daily, and Novolog 30u with each meal. Here she is receiving the same basal insulin, but only moderate insulin correction, and trulicity. Blood sugars 217- 271 during this stay. She is eating ~30-35 grams carbohydrate for recorded meals. She is not visited today due to her condition. INTERVENTION: Suggest addition of mealtime insulin for food given her high blood sugars. She may benefit from a trial of half her usual mealtime insulin at 15 units and increase insulin correction to resistant given her BMI. PLAN: Suggest addition of mealtime insulin at half her usual dose and/or resistant insulin correction Will f/u with her when her condition is improved. Time Spent in Nutritional Counseling and Treatment: 0 face to face inpatient
[2018-05-08 11:47] VITALS: BP 121/67; PULSE 57; RESP 22; TEMP 36.5; O2SAT 91
[2018-05-08] MEDS: MAGNESIUM SULFATE 1 GM/100 ML BAG IVPB (11:59)
--- NOTE | 2018-05-08 12:05 | OT.INIE ---
Occupational Therapy Notes Inpatient Occupational Therapy Evaluation Date: 05/08/18 Referring Doctor:Sheyla Reno MD OT Orders: Eval and Treat Precautions: Droplet, Standard and Fall PATIENT PROFILE/ADMITTING DIAGNOSIS: Pt is a 58 year old female who was admitted through the ER on 05/06/18 for Influenza B and pneumonia. Past Medical History: Obesity (Chronic) Dyslipidemia (Chronic) Hypothyroidism (Chronic) Depression (Chronic) Pneumonia (Acute) Influenza B (Acute) Diabetes mellitus (Chronic) COPD (chronic obstructive pulmonary disease) (Chronic) History of breast cancer (Chronic) Hypopituitarism (Chronic) Social History/Home Situation: Pt refers to herself as disabled. She lives in a private home with her daughter and reports that her other daughter lives up the road. Pt uses a walker for ambulation. Her daughter is her primary provider and cares for her 24 hours a day. Pt reports that her bathroom is on the second floor of her house so she is unable to access her shower. She reports that she washes up in her room with (A) from her daughter. She uses a commode for toileting. Pt reports that she is able to perform dressing routine with max (A) for (B) socks. She does not perform teeth hygiene and brushes her hair sitting in her bed (I). Pts daughter performs all the driving and pt relies on daughter for meals which pt reports that sometimes she cooks but not as often anymore. Equipment owned/DME: FWW SUBJECTIVE: Pt was sitting in bed when OT arrived. She reports that she was agreeable to OT consult. OBJECTIVE: General Observation: Obese, IV PICC Line chest, Nasal cannula O2, 3 liters Mental Status: A&Ox3 Pain: No c/o pain. ROM: RUE AROM WNL L UE AROM WNL STRENGTH: RUE 5/5 throughout, motorcoach driver is strong and symmetrical LUE 5/5 throughout, motorcoach driver is strong and symmetrical BALANCE: Static sitting Good Dynamic Sitting Good SPECIAL TESTS: Daily Activity Limitations Standardized Measure [facility] AM -PAC ?6 clicks? Daily Activity Inpatient Short Form: Raw score: 15 Standardized score: 34.69 CMS score: 56.46% INFORMED CONSENT/EDUCATION: Pt instructed in purpose of OT Consult and plan of care. ASSESSMENT: Patient is a 58-year-old female referred to occupational therapy services with diagnosis of influenza B and pneumonia. Patient presents with clinical signs and symptoms consistent with dx, as demonstrated by the following impairment level findings/functional limitations: Decreased functional activity tolerance, decreased (I) in LE dressing, not able to perform ADLs at baseline level of function. AMPAC score 15, CMS score 56.46% Patient is assessed as a Moderate 30637 complexity based on the following: History: See Above Examination: See Above Presentation: Evolving Decision Making: AMPAC score 15, CMS score 56.46% GOALS Goals x1 week in hospital setting 1. Transfers SBA, FWW 2. Dressing Sitting in chair with will be able to don and doff LE dressing with min (A) and UE dressing (I) 3. Bathing Standing at sink with FWW, (I) With face, (B) UE and abdomen 4. Toileting on commode (I) PLAN OF CARE/TREATMENT PLAN: 1x/day, 5 days/ week x 1week Initiate Occupational Therapy Services for bathing, dressing, grooming, toileting, eating, transfer training. DISCHARGE RECOMMENDATIONS Home with Home health OT when medically cleared per MD. TREATMENT TIME/MINUTES/CODES 90215, 24 minutes (11:40) Morenita Guajardo OTR/L [facility]
--- NOTE | 2018-05-08 12:10 | OTIE_ITS ---
Occupational Therapy Notes Inpatient Occupational Therapy Evaluation Date: 05/08/18 Referring Doctor:Sheyla Reno MD OT Orders: Eval and Treat Precautions: Droplet, Standard and Fall PATIENT PROFILE/ADMITTING DIAGNOSIS: Pt is a 58 year old female who was admitted through the ER on 05/06/18 for Influenza B and pneumonia. Past Medical History: Obesity (Chronic) Dyslipidemia (Chronic) Hypothyroidism (Chronic) Depression (Chronic) Pneumonia (Acute) Influenza B (Acute) Diabetes mellitus (Chronic) COPD (chronic obstructive pulmonary disease) (Chronic) History of breast cancer (Chronic) Hypopituitarism (Chronic) Social History/Home Situation: Pt refers to herself as disabled. She lives in a private home with her daughter and reports that her other daughter lives up the road. Pt uses a walker for ambulation. Her daughter is her primary provider and cares for her 24 hours a day. Pt reports that her bathroom is on the second floor of her house so she is unable to access her shower. She reports that she washes up in her room with (A) from her daughter. She uses a commode for toileting. Pt reports that she is able to perform dressing routine with max (A) for (B) socks. She does not perform teeth hygiene and brushes her hair sitting in her bed (I). Pts daughter performs all the driving and pt relies on daughter for meals which pt reports that sometimes she cooks but not as often anymore. Equipment owned/DME: [facility]WW SUBJECTIVE: Pt was sitting in bed when OT arrived. She reports that she was agreeable to OT consult. OBJECTIVE: General Observation: Obese, IV PICC Line chest, Nasal cannula O2, 3 liters Mental Status: A&Ox3 Pain: No c/o pain. ROM: RUE AROM WNL L UE AROM WNL STRENGTH: RUE 5/5 throughout, briquette machine operator helper is strong and symmetrical LUE 5/5 throughout, briquette machine operator helper is strong and symmetrical BALANCE: Static sitting Good Dynamic Sitting Good SPECIAL TESTS: Daily Activity Limitations Standardized Measure [facility] AM -PAC ?6 clicks? Daily Activity Inpatient Short Form: Raw score: 15 Standardized score: 34.69 CMS score: 56.46% INFORMED CONSENT/EDUCATION: Pt instructed in purpose of OT Consult and plan of care. ASSESSMENT: Patient is a 58-year-old female referred to occupational therapy services with diagnosis of influenza B and pneumonia. Patient presents with clinical signs and symptoms consistent with dx, as demonstrated by the following impairment level findings/functional limitations: Decreased functional activity tolerance, decreased (I) in LE dressing, not able to perform ADLs at baseline level of function. AMPAC score 15, CMS score 56.46% Patient is assessed as a Moderate 82055 complexity based on the following: History: See Above Examination: See Above Presentation: Evolving Decision Making: AMPAC score 15, CMS score 56.46% GOALS Goals x1 week in hospital setting 1. Transfers SBA, FWW 2. Dressing Sitting in chair with will be able to don and doff LE dressing with min (A) and UE dressing (I) 3. Bathing Standing at sink with FWW, (I) With face, (B) UE and abdomen 4. Toileting on commode (I) PLAN OF CARE/TREATMENT PLAN: 1x/day, 5 days/ week x 1week Initiate Occupational Therapy Services for bathing, dressing, grooming, toileting, eating, transfer training. DISCHARGE RECOMMENDATIONS Home with Home health OT when medically cleared per MD. TREATMENT TIME/MINUTES/CODES 91569, 24 minutes (11:40) Morenita Guajardo OTR/L [facility]
[2018-05-08] MEDS: Nystatin POWDER 60 GM JAR TP ×2 (14:00→19:28)
--- NOTE | 2018-05-08 14:15 | PT.INIE ---
Date of service: 05/08/18 Time of Service: 13:05 PT Notes Inpatient Physical Therapy Evaluation Date: 05/08/2018 Referring Doctor: Sheyla Reno MD PT Orders: PT CONSULT: Eval/treat Precautions: Fall. Standard. Droplet. Morbidly obese. Patient Profile/Admitting Diagnosis: 58-year-old female admitted on 05/06/2018 referred for physical therapy to address impairments and functional deficits resulting from hypotension, hypoxia with diagnoses of Influenza and Pneumonia. PMHX: IDDM, breast CA with left mastectomy, right mastectomy planned for June 2018, COPD, hypothyroid, hypopituitarism. Social History/Home Situation: Candace lives with her daughter in [place], [place] in a two-story house with a ramp to enter rails on both sides. Patient has stairs to the second floor of the house but has everything she needs on the first floor. She is disabled. She has 2 daughters locally. She receives choices for care highest needs, and her daughter Kiki is her primary provider for 12 years now. Kiki's provides assistance with bathing and does although patient states she is able to cook for herself very infrequently. She was independent with walker for ambulation and has to walk about 80-90 feet to get to her car. She is dependent on her daughter for transportation to and from appointments. Daughter also provides assistance with bathing back as patient is only able to do her front part. Equipment Owned/DME: bariatric FWW, bariatric hospital bed, bariatric recliner, bariatric front wheeled walker Subjective: When asked about how she is doing she states Just having my usual pain. Patient was seen resting in bed and is agreeable to a PT evaluation. Objective: General Observation: Patient is seen for this evaluation resting in bed IV in right UE. Hemosiderin staining observed in bilateral distal legs. Abdomen protuberant. Mental Status: Alert and oriented x3 Pain: Patient describes her usual pain as 6-8/10 ROM: Right Upper Extremity: Shoulder flexion 90-100 degrees. Elbow flexion WFL. Good functional opening of hand. Left Upper Extremity: Shoulder flexion 90-100 degrees. Elbow flexion WFL. Good functional opening of hand. Right Lower Extremity: Patient is able to perform straight leg raise to approximately 20-25 degrees. Able to bend knee to about 10 degrees. Dorsiflexion/plantarflexion WFL. Left Lower Extremity: Patient able to perform straight leg raise to 10 degrees. Able to actively bend knee to about 5 degrees. Dorsiflexion/plantarflexion WFL Strength: Right Upper Extremity: Shoulder flexion 3-/5. Elbow flexion 4/5. Shop Fitter strong and functional Left Upper Extremity: Shoulder flexion 3-/5. Elbow flexion 4/5. Shop Fitter strong and functional. Right Lower Extremity: Hip flexion 3-/5. Hip extension 3/5. Knee flexion 3-/5. Knee extension 3+/5. Ankle dorsiflexion/plantarflexion 4/5. Left Lower Extremity: Hip flexion 3-/5. Hip extension 3/5. Knee flexion 3-/5. Knee extension 3+/5. Ankle dorsiflexion/plantarflexion 4/5. Bed Mobility/Transfers: Supine to sit: Mod A, HOB 30 degrees elevated Sit to supine: Mod A, HOB 30 degrees elevated Sit to stand: Min A, requires use of both hands for support on FWW. Patient able to support self while holding onto bed rail and onto recliner armrest. Stand to sit: Min A, requires use of both hands for support on FWW. Patient able to support self while holding onto bed rail and onto recliner armrest. Bed to chair: Min A, requires use of both hands for support on FWW. Patient able to support self while holding onto bed rail and onto recliner armrest. Chair to bed: Min A, requires use of both hands for support on FWW. Patient able to support self while holding onto bed rail and onto recliner armrest. Gait: Patient only able to sidesteps 3-5 times onto her recliner for transfers with BUE support needed and minimal assist provided. Gait deferred today due to fatigue. Balance: Static Sitting: Fair Dynamic Sitting: Fair Static Standing: Fair Dynamic Standing: Fair fluorine 19 over in bed to stand Special Tests: Mobility Limitations Standardized Measure [facility] [place] [facility]-PAC 6 clicks Basic Mobility Inpatient Short Form: Raw Score: 16 CMS Score: 54.16 % deficit Informed Consent/Education: Patient instructed in purpose of PT consult and plan of care. Assessment: Patient is a 58-year-old year old female referred to physical therapy services with the diagnosis of Influenza, pneumonia. Patient presents with clinical signs and symptoms consistent with mobility decline and transfer/ambulation dependence resulting from medical condition. Patient does have chronic functional mobility deficits and has a daughter for her longtime caregiver. PT goals will be aimed at addressing the following impairment level findings: 1. Decreased range of motion for hip and knee bilaterally 2. Impaired strength to BLE 3. Impaired activity tolerance 4. Decreased balance skills Impairments are contributing to the following functional limitations: 1. Increase dependence with bed mobility performance 2. Reduced transfer skills 3. Increased risk for falls due to balance impairments 4. Limited ambulation distance Patient is assessed as a [] Moderate 88461 complexity based on the following: History: Increased dependence with mobility ADL performance due to acute medical issues related to influenza and pneumonia. Patient has been receiving mobility assistance for over 10 years now with a daughter Kiki as a primary caregiver. Full medical history can be found as noted above. Examination: Functional limitations as noted above Presentation: Evolving Decision Making: Moderate complexity 18880 Goals: Goals X1 week 1. Supine-Sit independent 2. Sit-Supine independent 3. Sit-Stand independent 4. Stand-Sit independent 5. Bed-Chair supervision 6. Chair-Bed supervision 7. Gait indoor and outdoor ambulation using FWW for at least 100 feet 8. Independent with home exercise program 9. Balance good Plan of Care/Treatment Plan: 1-2x/day, 7 days/week x 1 week. Plan of care has been reviewed with the TEST TECHNICIAN providing the service under Physical Therapy direction. Initiate Physical Therapy intervention for strengthening, bed mobility, transfers, gait, stairs, balance training, use of assistive device, HEP education/training. DISCHARGE RECOMMENDATIONS: To home with previous support services in place. May benefit from home health services to ensure a smooth transition to home and reduce fall risk. TREATMENT CODE/TIME: 44682, 62306 30 minutes beginning at 13:05 PM. Thank you for this referral. Allie Miguel, PT, DPT, CLT [facility]
--- NOTE | 2018-05-08 14:19 | IN_ITS ---
Date of service: 05/08/18 Time of Service: 13:05 PT Notes Inpatient Physical Therapy Evaluation Date: 05/08/2018 Referring Doctor: Sheyla Reno MD PT Orders: PT CONSULT: Eval/treat Precautions: Fall. Standard. Droplet. Morbidly obese. Patient Profile/Admitting Diagnosis: 58-year-old female admitted on 05/06/2018 referred for physical therapy to address impairments and functional deficits resulting from hypotension, hypoxia with diagnoses of Influenza and Pneumonia. PMHX: IDDM, breast CA with left mastectomy, right mastectomy planned for June 2018, COPD, hypothyroid, hypopituitarism. Social History/Home Situation: Candace lives with her daughter in [place], [place] in a two-story house with a ramp to enter rails on both sides. Patient has stairs to the second floor of the house but has everything she needs on the first floor. She is disabled. She has 2 daughters locally. She receives choices for care highest needs, and her daughter Kiki is her primary provider for 12 years now. Kiki's provides assistance with bathing and does although patient states she is able to cook for herself very infrequently. She was independent with walker for ambulation and has to walk about 80-90 feet to get to her car. She is dependent on her daughter for transportation to and from appointments. Daughter also provides assistance with bathing back as patient is only able to do her front part. Equipment Owned/DME: bariatric FWW, bariatric hospital bed, bariatric recliner, bariatric front wheeled walker Subjective: When asked about how she is doing she states Just having my usual pain. Patient was seen resting in bed and is agreeable to a PT evaluation. Objective: General Observation: Patient is seen for this evaluation resting in bed IV in right UE. Hemosiderin staining observed in bilateral distal legs. Abdomen protuberant. Mental Status: Alert and oriented x3 Pain: Patient describes her usual pain as 6-8/10 ROM: Right Upper Extremity: Shoulder flexion 90-100 degrees. Elbow flexion WFL. Good functional opening of hand. Left Upper Extremity: Shoulder flexion 90-100 degrees. Elbow flexion WFL. Good functional opening of hand. Right Lower Extremity: Patient is able to perform straight leg raise to approximately 20-25 degrees. Able to bend knee to about 10 degrees. Dorsiflexion/plantarflexion WFL. Left Lower Extremity: Patient able to perform straight leg raise to 10 degrees. Able to actively bend knee to about 5 degrees. Dorsiflexion/plantarflexion WFL Strength: Right Upper Extremity: Shoulder flexion 3-/5. Elbow flexion 4/5. Semiconductor Packages Sealer strong and functional Left Upper Extremity: Shoulder flexion 3-/5. Elbow flexion 4/5. Semiconductor Packages Sealer strong and functional. Right Lower Extremity: Hip flexion 3-/5. Hip extension 3/5. Knee flexion 3-/5. Knee extension 3+/5. Ankle dorsiflexion/plantarflexion 4/5. Left Lower Extremity: Hip flexion 3-/5. Hip extension 3/5. Knee flexion 3-/5. Knee extension 3+/5. Ankle dorsiflexion/plantarflexion 4/5. Bed Mobility/Transfers: Supine to sit: Mod A, HOB 30 degrees elevated Sit to supine: Mod A, HOB 30 degrees elevated Sit to stand: Min A, requires use of both hands for support on FWW. Patient able to support self while holding onto bed rail and onto recliner armrest. Stand to sit: Min A, requires use of both hands for support on FWW. Patient able to support self while holding onto bed rail and onto recliner armrest. Bed to chair: Min A, requires use of both hands for support on FWW. Patient a ble to support self while holding onto bed rail and onto recliner armrest. Chair to bed: Min A, requires use of both hands for support on FWW. Patient able to support self while holding onto bed rail and onto recliner armrest. Gait: Patient only able to sidesteps 3-5 times onto her recliner for transfers with BUE support needed and minimal assist provided. Gait deferred today due to fatigue. Balance: Static Sitting: Fair Dynamic Sitting: Fair Static Standing: Fair Dynamic Standing: Fair fluorine 19 over in bed to stand Special Tests: Mobility Limitations Standardized Measure [facility]-PAC 6 clicks Basic Mobility Inpatient Short Form: Raw Score: 16 CMS Score: 54.16 % deficit Informed Consent/Education: Patient instructed in purpose of PT consult and plan of care. Assessment: Patient is a 58-year-old year old female referred to physical therapy services with the diagnosis of Influenza, pneumonia. Patient presents with clinical signs and symptoms consistent with mobility decline and transfer/ambulation dependence resulting from medical condition. Patient does have chronic functional mobility deficits and has a daughter for her longtime caregiver. PT goals will be aimed at addressing the following impairment level findings: 1. Decreased range of motion for hip and knee bilaterally 2. Impaired strength to BLE 3. Impaired activity tolerance 4. Decreased balance skills Impairments are contributing to the following functional limitations: 1. Increase dependence with bed mobility performance 2. Reduced transfer skills 3. Increased risk for falls due to balance impairments 4. Limited ambulation distance Patient is assessed as a [] Moderate 56514 complexity based on the following: History: Increased dependence with mobility ADL performance due to acute medical issues related to influenza and pneumonia. Patient has been receiving mobility assistance for over 10 years now with a daughter Kiki as a primary caregiver. Full medical history can be found as noted above. Examination: Functional limitations as noted above Presentation: Evolving Decision Making: Moderate complexity 28026 Goals: Goals X1 week 1. Supine-Sit independent 2. Sit-Supine independent 3. Sit-Stand independent 4. Stand-Sit independent 5. Bed-Chair supervision 6. Chair-Bed supervision 7. Gait indoor and outdoor ambulation using FWW for at least 100 feet 8. Independent with home exercise program 9. Balance good Plan of Care/Treatment Plan: 1-2x/day, 7 days/week x 1 week. Plan of care has been reviewed with the [employer] providing the service under Physical Therapy direction. Initiate Physical Therapy intervention for strengthening, bed mobility, transfers, gait, stairs, balance training, use of assistive device, HEP education/training. DISCHARGE RECOMMENDATIONS: To home with previous support services in place. May benefit from home health services to ensure a smooth transition to home and reduce fall risk. TREATMENT CODE/TIME: 97116, 29335 30 minutes beginning at 13:05 PM. Thank you for this referral. Allie Miguel, PT, DPT, CLT [facility]
--- NOTE | 2018-05-08 15:26 | CHAPLAIN ---
I had a short visit with Candace and her daughter. I explained my role and offered support. Candace said she lives with he daughter who provides care for her.
[2018-05-08 16:10] VITALS: BP 131/70; PULSE 83; RESP 20; TEMP 36.4; O2SAT 93
--- NOTE | 2018-05-08 20:47 | W.PM.PROGNOT ---
Date of Service Date of service: 05/08/18 Time of Service: 16:00 Assessment and Plan (1) Influenza B: Current visit: Yes Status: Acute Continue oseltamivir. Improving rapidly (2) Pneumonia: Current visit: Yes Status: Acute CAP with hypoxia, present on admission. Now at her baseline oxygen requirement. Continue levofloxacin; d/c vancomyin Sputum culture with normal beverly. Blood cultures show no growth to date. Start to taper hydorcortisone. Will need a steroid taper on discharge to get back to her home hydrocortisone. D/c IVF. (3) COPD (chronic obstructive pulmonary disease): Current visit: Yes Status: Chronic Make duonebs prn. Continue symbicort, hydrocortisone; Continue antitussives (4) SIERRA (acute kidney injury): Current visit: Yes Status: Acute Resolved (5) Hypopituitarism: Current visit: Yes Status: Chronic weaning IV hydrocortisone; to go home on a steroid taper to get back to her outpatient dose (6) DVT prophylaxis: Current visit: Yes Status: Acute Heparin SC. PPI for GI prophylaxis as well, given acute illness as well as need for steroid therapy. (7) Advance directive discussed with patient: Current visit: Yes Status: Acute DNR/DNI (8) Discharge planning issues: Current visit: Yes Status: Acute Anticipated discharge home tomorrow Subjective Interval history since last seen: The patient states she is feeling better today. She has had very little cough today, and sputum is still greenish, but clearing up. Has not heard herself wheeze today. Denies chest pain, shortness of breath, nausea, vomiting. She would like to go home tomorrow. Exam Narrative Exam Narrative: General: Very pleasant obese female, laying comfortably in bed, A&OX3 HEENT: EOMI, MMM Heart: RRR, no m/r/g Lungs: very minimal wheezing on expiration B GI: abdomen is soft, nontender, nondidstended Extremities: nonpitting edema BLE's, no clubbing or cyanosis Objective Objective Clinical Data: Abnormal lab results 05/08/18 05/08/18 Range/Units 08:00 08:00 RBC 3.52 L (4.00-5.20) m/cumm Hgb 10.5 L (12.0-15.5) g/dL Hct 32.6 L (36.0-46.0) % RDW 14.8 H (11.7-14.6) % Absolute Lymphocytes 0.79 L (1.2-3.4) k/cumm Glucose 222 H (70-100) mg/dL Calcium 8.3 L (8.5-10.1) mg/dL Magnesium 1.7 L (1.8-2.4) mg/dL Vital Signs Temperature 36.4 C L 05/08/18 16:10 Temperature Source Tympanic 05/08/18 16:10 Pulse 83 05/08/18 16:10 Pulse Rhythm Regular 05/08/18 19:49 Pulse 92 H 05/07/18 08:00 Respiratory Rate 20 05/08/18 16:10 Respiratory Effort Non-Labored 05/08/18 19:49 Respiratory Depth Normal 05/08/18 19:49 Respiratory Pattern Normal 05/08/18 19:49 Blood Pressure 131/70 05/08/18 16:10 Blood Pressure Mean 70 05/07/18 14:48 Blood Pressure Position Supine 05/07/18 08:40 Pulse Oximetry 93 L 05/08/18 16:10 Oxygen Delivery Method Nasal Cannula 05/08/18 16:10 Oxygen Flow Rate 3 05/08/18 16:10 Pain Level 6 05/07/18 21:31 Comment 05/07/18 14:48 Intake & Output 05/07/18 05/08/18 05/08/18 23:59 11:59 23:59 Intake Total 1930 / 3020 680 / 1160 480 / 1160 Output Total 150 / 400 Balance 1780 / 2620 680 / 1160 480 / 1160 Intake: IV 1150 / 1650 430 / 430 Oral 780 / 1370 250 / 730 480 / 730 Output: Urine 150 / 400 Other: Urine Color Yellow Yellow Urine Appearance Clear Clear Clear Urine Odor None Normal Comment incontinent a very large amount Patient voided urine with stool , Patient was continent Stool Size Large Stool Characteristics Soft Voiding Methods Bedside Commode Incontinent Laboratory Results WBC 4.62 k/cumm (4.4-10.8) 05/08/18 08:00 RBC 3.52 m/cumm (4.00-5.20) L 05/08/18 08:00 Hgb 10.5 g/dL (12.0-15.5) L 05/08/18 08:00 Hct 32.6 % (36.0-46.0) L 05/08/18 08:00 MCV 92.6 fL (80-95) 05/08/18 08:00 MCH 29.8 pg (27.0-33.0) 05/08/18 08:00 MCHC 32.2 g/dL (32.0-36.0) 05/08/18 08:00 RDW 14.8 % (11.7-14.6) H 05/08/18 08:00 Plt Count 187 x1000/uL (130-400) 05/08/18 08:00 MPV 9.5 fL (8.0-11.0) 05/08/18 08:00 Immature Gran % 0.0 05/08/18 08:00 Neutrophils % 74.0 05/08/18 08:00 Lymphocytes % 17.1 05/08/18 08:00 Monocytes % 7.8 05/08/18 08:00 Eosinophils % 0.9 05/08/18 08:00 Basophils % 0.2 05/08/18 08:00 Absolute Neutrophils 3.42 k/cumm (1.2-6.7) 05/08/18 08:00 Absolute Lymphocytes 0.79 k/cumm (1.2-3.4) L 05/08/18 08:00 Absolute Monocytes 0.36 k/cumm (0.11-0.7) 05/08/18 08:00 Absolute Eosinophils 0.04 k/cumm (0.0-0.7) 05/08/18 08:00 Absolute Basophils 0.01 k/cumm (0.0-0.2) 05/08/18 08:00 D-Dimer 1315 ng/mlFEU (<500) H 05/06/18 19:13 Sodium 137 mmol/L (136-145) 05/08/18 08:00 Potassium 4.2 mmol/L (3.5-5.1) 05/08/18 08:00 Chloride 101 mmol/L (98-107) 05/08/18 08:00 Carbon Dioxide 27.1 mmol/L (21.0-32.0) 05/08/18 08:00 Anion Gap 8.9 mmol/L (3-11) 05/08/18 08:00 BUN 14 mg/dL (7-18) 05/08/18 08:00 Creatinine 0.90 mg/dL (0.55-1.02) 05/08/18 08:00 Estimated GFR/1.73 m2 >= 60.00 (mL/min/1.73m2) 05/08/18 08:00 Glucose 222 mg/dL (70-100) H 05/08/18 08:00 Lactate 0.9 mmol/l (0.6-1.4) 05/07/18 06:58 Calcium 8.3 mg/dL (8.5-10.1) L 05/08/18 08:00 Magnesium 1.7 mg/dL (1.8-2.4) L 05/08/18 08:00 Total Bilirubin 0.4 mg/dL (0.2-1.0) 05/06/18 19:13 AST 27 U/L (15-37) 05/06/18 19:13 ALT 21 U/L (12-78) 05/06/18 19:13 Alkaline Phosphatase 113 U/L (46-116) 05/06/18 19:13 Troponin I < 0.02 ng/mL (0.00-0.06) 05/07/18 06:58 NT-Pro-B Natriuret Pep 284 pg/mL (-299) 05/06/18 19:13 Total Protein 7.7 g/dL (6.4-8.2) 05/06/18 19:13 Albumin 3.3 g/dL (3.4-5.0) L 05/06/18 19:13
[2018-05-08] MEDS: DULoxetine 30 MG CAP 60 MG PO (21:24)
[2018-05-08] MEDS: Atorvastatin 20 MG TAB PO (21:24)
[2018-05-08 23:35] VITALS: BP 140/86; PULSE 78; RESP 19; TEMP 36.6; O2SAT 95
[2018-05-09] MEDS: LEVOFLOXACIN 750 MG/150 ML BAG 100 MG IVPB ×2 (00:25→23:08)
[2018-05-09] MEDS: Pantoprazole 40 MG VIAL IVP ×2 (00:25→23:08)
[2018-05-09 03:30] VITALS: BP 158/73; PULSE 86; RESP 18; TEMP 36.5; O2SAT 94
[2018-05-09] MEDS: Heparin 5,000 UNITS/ML VIAL 5000 UNITS SC ×3 (05:04→22:50)
[2018-05-09] MEDS: Levothyroxine 150 MCG TAB PO (05:04)
[2018-05-09 07:10] LABS: Abs Immature Grans 0.01 k/cumm (0.0-0.09); Absolute Basophil Count 0.01 k/cumm (0.0-0.2); Absolute Lymphocyte Count 1.26 k/cumm (1.2-3.4); Absolute Monocyte Count 0.36 k/cumm (0.11-0.7); Basophils % 0.3; Eosinophils % 5.2; HCT 32.4 % (36.0-46.0); HGB 10.4 g/dL (12.0-15.5); Immature Grans % 0.3; Lymphocytes % 32.5; Mean Corp. HGB Concentration 32.1 g/dL (32.0-36.0); Mean Corpuscular Hemoglobin 29.8 pg (27.0-33.0); Mean Corpuscular Volume 92.8 fL (80-95); Mean Platelet Volume 9.6 fL (8.0-11.0); Monocytes % 9.3; Neutrophils % 52.4; Platelet Count 185 x1000/uL (130-400); RBC 3.49 m/cumm (4.00-5.20); RBC Distribution Width 14.9 % (11.7-14.6); White Blood Cell Count 3.88 k/cumm (4.4-10.8)
[2018-05-09 07:12] LABS: Absolute Neutrophil Count 2.03 k/cumm (1.2-6.7)
[2018-05-09 07:30] VITALS: BP 125/78; PULSE 77; RESP 20; TEMP 36.8; O2SAT 95
[2018-05-09 07:40] LABS: Anion Gap 5.6 mmol/L (3-11); BUN 14 mg/dL (7-18); CO2 31.4 mmol/L (21.0-32.0); CREATININE 0.81 mg/dL (0.55-1.02); Calcium 8.5 mg/dL (8.5-10.1); Chloride 103 mmol/L (98-107); Glucose 146 mg/dL (70-100); Magnesium 1.9 mg/dL (1.8-2.4); Potassium 3.7 mmol/L (3.5-5.1); Sodium 140 mmol/L (136-145)
[2018-05-09] MEDS: Hydrocortisone SOD SUC. 100 MG VIAL 50 MG IVP ×2 (08:10→19:52)
[2018-05-09] MEDS: Insulin Aspart 300 UNITS/3 ML PEN SC ×4 (08:12→23:09)
[2018-05-09] MEDS: Insulin Glargine 300 UNITS/3 ML PEN 50 UNITS SC ×2 (08:12→19:53)
[2018-05-09] MEDS: Nystatin POWDER 60 GM JAR TP ×3 (08:12→19:51)
[2018-05-09] MEDS: Pregabalin 100 MG CAP 200 MG PO ×3 (08:13→19:52)
[2018-05-09] MEDS: carBAMazepine 200 MG TAB PO ×2 (08:13→19:52)
[2018-05-09] MEDS: guaiFENesin 600 MG TABCR PO ×2 (08:13→19:52)
[2018-05-09] MEDS: Montelukast 10 MG TAB PO (08:13)
[2018-05-09] MEDS: Cyanocobalamin 500 MCG TAB 1000 MCG PO (08:13)
[2018-05-09] MEDS: Oseltamivir 75 MG CAP PO ×2 (08:13→19:52)
[2018-05-09] MEDS: Ferrous Sulfate 325 MG TAB PO ×3 (08:13→19:53)
[2018-05-09] MEDS: Cetirizine 10 MG TAB PO (08:13)
[2018-05-09] MEDS: Folic Acid 1 MG TAB PO (08:13)
[2018-05-09] MEDS: Aspirin E.C. 81 MG TABEC PO (08:13)
--- NOTE | 2018-05-09 09:54 | CMDISCH_ITS ---
LACE Index Scoring Tool - Questions: Length of Stay (in days): 3 Acuity (Admit via E.D.?): Yes Comorbidities: Diabetes w/o Complication, Chronic Pulmonary Disease, Any Tumor, Liver or Renal Disease E.D. Visits: 3 - Answers: Total Score: 14 Risk of Readmission: High Risk Care Management Discharge Reason for Hospitalization: Influenza, hypotension, hypoxia Discharge Plan: Candace will return home when medically ready. She will follow up with her PCP, resume [facility] highest needs and home O2 through [facility]. She will transport via private vehicle with her daughter. Patient/Family Education Needs: Review of discharge instructions, discuss Ask Me Three. Services Needed at Discharge: Home Health Care Services ([facility]), Homemaking Services (Moderate Needs), Oxygen Therapy ([facility])
--- NOTE | 2018-05-09 11:04 | PT.INNT ---
Date of service: 05/09/18 Time of Service: 11:04 PT Notes 05/09/18 Patient refused PT session x2 today. Will attempt to resume PT services tomorrow morning.
[2018-05-09 11:40] VITALS: BP 128/61; PULSE 86; RESP 20; TEMP 36.9; O2SAT 94
--- NOTE | 2018-05-09 15:20 | W.PM.PROGNOT ---
Date of Service Date of service: 05/09/18 Time of Service: 15:24 Assessment and Plan (1) Influenza B: Start date: 05/09/18 Start time: 15:21 Current visit: Yes Status: Acute Improving, day 2 of tamiflu, continue. (2) Pneumonia: Start date: 05/09/18 Start time: 15:22 Current visit: Yes Status: Acute CAP with hypoxia, present on admission. Now at her baseline oxygen requirement. levaquin day 3 Sputum culture with normal beverly. Blood cultures show no growth to date. Start to taper hydorcortisone. Will need a steroid taper on discharge to get back to her home hydrocortisone. D/c IVF. Discharge tomorrow if feeling ready (3) COPD (chronic obstructive pulmonary disease): Start date: 05/09/18 Start time: 15:23 Current visit: Yes Status: Chronic Make duonebs prn. Continue symbicort, hydrocortisone; Continue antitussives, (4) Hypopituitarism: Start date: 05/09/18 Start time: 15:23 Current visit: Yes Status: Chronic weaning IV hydrocortisone; to go home on a steroid taper to get back to her outpatient dose of 25 mg will taper slowly (5) DVT prophylaxis: Start date: 05/09/18 Start time: 15:24 Current visit: Yes Status: Acute Heparin SC. PPI for GI prophylaxis as well, given acute illness as well as need for steroid therapy. (6) Advance directive discussed with patient: Start date: 05/09/18 Start time: 15:24 Current visit: Yes Status: Acute DNR/DNI (7) Discharge planning issues: Start date: 05/09/18 Start time: 15:24 Current visit: Yes Status: Acute Anticipated discharge home tomorrow (8) SIERRA (acute kidney injury): Current visit: Yes Status: Acute Resolved Subjective Patient reports: feels better Interval history since last seen: Today the patient states she is feeling better. She does have wheezing bilaterally inspiratory and expiratory.She would benefit from one more night with IV steroids. She is breathing easier and should be improved enough to go home tomorrow. Continue to wean down steroids to tapering dose for discharge, she will need services at home. Exam Narrative Exam Narrative: General: Very pleasant obese female, laying comfortably in bed, A&OX3 HEENT: EOMI, MMM Heart: RRR, no m/r/g Lungs: very minimal wheezing on expiration and inspiration GI: abdomen is soft, nontender, nondidstended Extremities: no edema, no clubbing or cyanosis Objective Objective Clinical Data: Abnormal lab results 05/09/18 05/09/18 Range/Units 06:14 06:14 WBC 3.88 L (4.4-10.8) k/cumm RBC 3.49 L (4.00-5.20) m/cumm Hgb 10.4 L (12.0-15.5) g/dL Hct 32.4 L (36.0-46.0) % RDW 14.9 H (11.7-14.6) % Glucose 146 H D (70-100) mg/dL Vital Signs Temperature 36.9 C 05/09/18 11:40 Temperature Source Tympanic 05/09/18 11:40 Pulse 86 05/09/18 11:40 Pulse Rhythm Regular 05/09/18 14:02 Pulse 92 H 05/07/18 08:00 Respiratory Rate 20 05/09/18 11:40 Respiratory Effort 05/09/18 14:02 Respiratory Depth Normal 05/09/18 14:02 Respiratory Pattern Normal 05/09/18 14:02 Blood Pressure 128/61 05/09/18 11:40 Blood Pressure Mean 70 05/07/18 14:48 Blood Pressure Position Supine 05/07/18 08:40 Pulse Oximetry 94 L 05/09/18 11:40 Oxygen Delivery Method Nasal Cannula 05/09/18 11:40 Oxygen Flow Rate 3 05/09/18 11:40 Pain Level 0 05/09/18 03:30 Comment 05/09/18 03:30 Intake & Output 05/08/18 05/09/18 05/09/18 23:59 11:59 23:59 Intake Total 480 / 1160 1000 / 1000 Output Total 240 / 240 Balance 480 / 1160 760 / 760 Weight 158.9 kg Intake: Oral 480 / 730 1000 / 1000 Output: Urine 240 / 240 Other: Urine Color Yellow Urine Appearance Clear Clear Clear Urine Odor None Comment pt went in commode some but was also INC Voiding Methods Diaper Incontinent Laboratory Results WBC 3.88 k/cumm (4.4-10.8) L 05/09/18 06:14 RBC 3.49 m/cumm (4.00-5.20) L 05/09/18 06:14 Hgb 10.4 g/dL (12.0-15.5) L 05/09/18 06:14 Hct 32.4 % (36.0-46.0) L 05/09/18 06:14 MCV 92.8 fL (80-95) 05/09/18 06:14 MCH 29.8 pg (27.0-33.0) 05/09/18 06:14 MCHC 32.1 g/dL (32.0-36.0) 05/09/18 06:14 RDW 14.9 % (11.7-14.6) H 05/09/18 06:14 Plt Count 185 x1000/uL (130-400) 05/09/18 06:14 MPV 9.6 fL (8.0-11.0) 05/09/18 06:14 Immature Gran % 0.3 05/09/18 06:14 Neutrophils % 52.4 05/09/18 06:14 Lymphocytes % 32.5 05/09/18 06:14 Monocytes % 9.3 05/09/18 06:14 Eosinophils % 5.2 05/09/18 06:14 Basophils % 0.3 05/09/18 06:14 Absolute Neutrophils 2.03 k/cumm (1.2-6.7) 05/09/18 06:14 Absolute Lymphocytes 1.26 k/cumm (1.2-3.4) 05/09/18 06:14 Absolute Monocytes 0.36 k/cumm (0.11-0.7) 05/09/18 06:14 Absolute Eosinophils 0.20 k/cumm (0.0-0.7) 05/09/18 06:14 Absolute Basophils 0.01 k/cumm (0.0-0.2) 05/09/18 06:14 D-Dimer 1315 ng/mlFEU (<500) H 05/06/18 19:13 Sodium 140 mmol/L (136-145) 05/09/18 06:14 Potassium 3.7 mmol/L (3.5-5.1) 05/09/18 06:14 Chloride 103 mmol/L (98-107) 05/09/18 06:14 Carbon Dioxide 31.4 mmol/L (21.0-32.0) 05/09/18 06:14 Anion Gap 5.6 mmol/L (3-11) 05/09/18 06:14 BUN 14 mg/dL (7-18) 05/09/18 06:14 Creatinine 0.81 mg/dL (0.55-1.02) 05/09/18 06:14 Estimated GFR/1.73 m2 >= 60.00 (mL/min/1.73m2) 05/09/18 06:14 Glucose 146 mg/dL (70-100) H D 05/09/18 06:14 Lactate 0.9 mmol/l (0.6-1.4) 05/07/18 06:58 Calcium 8.5 mg/dL (8.5-10.1) 05/09/18 06:14 Magnesium 1.9 mg/dL (1.8-2.4) 05/09/18 06:14 Total Bilirubin 0.4 mg/dL (0.2-1.0) 05/06/18 19:13 AST 27 U/L (15-37) 05/06/18 19:13 ALT 21 U/L (12-78) 05/06/18 19:13 Alkaline Phosphatase 113 U/L (46-116) 05/06/18 19:13 Troponin I < 0.02 ng/mL (0.00-0.06) 05/07/18 06:58 NT-Pro-B Natriuret Pep 284 pg/mL (-299) 05/06/18 19:13 Total Protein 7.7 g/dL (6.4-8.2) 05/06/18 19:13 Albumin 3.3 g/dL (3.4-5.0) L 05/06/18 19:13 Vancomycin Trough Cancelled 05/09/18 11:00
--- NOTE | 2018-05-09 16:06 | PDOC.CMPRO ---
Care Management Progress Note S/O: Per Provider, IVF discontinued; Candace will be monitored on orals and will be discharged home when she is medically ready per provider; as soon as tomorrow. No change to overall plan. A: 58 year old female admitted 05/06/18 with influenza and pneumonia P: Candace will return home when medically ready. She will follow up with her PCP, resume [facility] highest needs and home O2 through [facility]. She will transport via private vehicle with her daughter.
[2018-05-09 16:50] VITALS: BP 121/78; PULSE 79; RESP 20; TEMP 36.6; O2SAT 94
[2018-05-09] MEDS: Acetaminophen 325 MG TAB PO (18:00)
[2018-05-09 21:01] VITALS: BP 120/76; PULSE 80; RESP 19; TEMP 36.6; O2SAT 95
[2018-05-09] MEDS: DULoxetine 30 MG CAP 60 MG PO (22:50)
[2018-05-09] MEDS: Normal Saline Flush 10 ML SYR IVP (23:08)
[2018-05-09] MEDS: Atorvastatin 20 MG TAB PO (23:08)
[2018-05-09 23:44] VITALS: BP 143/80; PULSE 74; RESP 20; TEMP 36.3; O2SAT 92
[2018-05-10 03:54] VITALS: BP 126/74; PULSE 62; RESP 20; TEMP 36.4; O2SAT 95
[2018-05-10] MEDS: Heparin 5,000 UNITS/ML VIAL 5000 UNITS SC (05:15)
[2018-05-10] MEDS: Levothyroxine 150 MCG TAB PO (05:15)
[2018-05-10 07:20] VITALS: BP 133/78; PULSE 83; RESP 18; TEMP 36.4; O2SAT 95
[2018-05-10] MEDS: Nystatin POWDER 60 GM JAR TP (09:36)
[2018-05-10] MEDS: Cetirizine 10 MG TAB PO (09:37)
[2018-05-10] MEDS: Ferrous Sulfate 325 MG TAB PO (09:37)
[2018-05-10] MEDS: guaiFENesin 600 MG TABCR PO (09:37)
[2018-05-10] MEDS: Aspirin E.C. 81 MG TABEC PO (09:37)
[2018-05-10] MEDS: carBAMazepine 200 MG TAB PO (09:37)
[2018-05-10] MEDS: Pregabalin 100 MG CAP 200 MG PO (09:37)
[2018-05-10] MEDS: Folic Acid 1 MG TAB PO (09:37)
[2018-05-10] MEDS: Montelukast 10 MG TAB PO (09:37)
[2018-05-10] MEDS: Cyanocobalamin 500 MCG TAB 1000 MCG PO (09:37)
[2018-05-10] MEDS: Oseltamivir 75 MG CAP PO (09:37)
[2018-05-10] MEDS: Insulin Aspart 300 UNITS/3 ML PEN SC (09:38)
[2018-05-10] MEDS: Insulin Glargine 300 UNITS/3 ML PEN 50 UNITS SC (09:38)
--- NOTE | 2018-05-10 10:07 | DSE_ITS ---
Date of service: 05/10/18 Time of Service: 10:01 DS: Diagnosis Discharge Diagnosis (1) Influenza B: Status: Acute (2) Pneumonia: Status: Acute (3) COPD (chronic obstructive pulmonary disease): Status: Chronic (4) Hypopituitarism: Status: Chronic (5) DVT prophylaxis: Status: Acute (6) Advance directive discussed with patient: Status: Acute (7) Discharge planning issues: Status: Acute (8) SIERRA (acute kidney injury): Status: Acute Discharge Plan Disposition Patient Disposition: HOME Condition: Improving Discharge Details Reason For Visit: INFLUENZA, HYPOTENSION, HYPOXIA Admit Date/Time: 05/06/18 20:30 Admit Provider: Gm Hutson Attending Provider: Gm Hutson Primary Care Provider: JENNI DELUNA Hospital Course Hospital Course: Mrs. Maynard has a prior medical history significant for IDDM, COPD, dyslipidemia, depression, hypothyroidism, and obesity. She was diagnosed with breast cancer in the past, s/p resections in the past and now a left-sided mastectomy, chronically maintained on hormonal therapy. She also endorses a history of a pituitary mass, s/p resection with resultant Hypopituitarism. The patient presented to the ED at the behest of her daughter, with complaints of a 2-day history of cough with green sputum production, dyspnea, and myalgias. Workup in the ED was remarkable for mildly elevated lactate, SIERRA, and a positive flu swab. Her CXR also showed a LLL opacity, potentially on the basis of infi ltrate and pneumonia. She was also found to be mildly hypoxic on room air, and hypotensive by exam. She was admitted for further evaluation and treatment. Today she at baseline oxygenation of 3 L and maintaining saturations. Lungs are diminished but clear. She feels much better is ready to go home. She will be going home on Levaquin po 5 day dose, tapering steroid dose, and tamiflu. 1) Influenza B: Improving, day 2 of tamiflu, continue. (2) Pneumonia: CAP with hypoxia, present on admission. Now at her baseline oxygen requirement. levaquin day 3 Sputum culture with normal beverly. Blood cultures show no growth to date. Start to taper hydorcortisone. Will need a steroid taper on discharge to get back to her home hydrocortisone. D/c IVF. Discharge tomorrow if feeling ready (3) COPD (chronic obstructive pulmonary disease): Make duonebs prn. Continue symbicort, hydrocortisone; Continue antitussives, (4) Hypopituitarism: Start date: 05/09/18 weaning IV hydrocortisone; to go home on a steroid taper to get back to her outpatient dose of 25 mg will taper slowly (5) DVT prophylaxis: Heparin SC. PPI for GI prophylaxis as well, given acute illness as well as need for steroid therapy. (6) Advance directive discussed with patient: DNR/DNI (7) Discharge planning issues: Anticipated discharge home tomorrow (8) SIERRA (acute kidney injury): Resolved Home Meds and New Rx's Prescriptions: New benzonatate 200 mg Capsule 200 mg PO TID PRN (Reason: cough) Qty: 15 RF: 0 oseltamivir [Tamiflu] 75 mg Capsule 75 mg PO BID Qty: 6 RF: 0 guaifenesin [Mucinex] 600 mg Tablet Extended Release 12hr 600 mg PO BID Qty: 10 RF: 0 hydrocortisone 10 mg tablet 10 mg PO DAILY Qty: 61 RF: 0 levofloxacin [Levaquin] 750 mg tablet 750 mg PO DAILY Qty: 5 RF: 0 Continued Lyrica 200 MG capsule 200 mg PO TID RF: 0 montelukast [Singulair] 10 MG tablet 10 mg PO DAILY RF: 0 cetirizine [Zyrtec] 10 MG tablet 10 mg PO DAILY RF: 0 ferrous sulfate 325 MG tablet 325 mg PO TID RF: 0 atorvastatin [Lipitor] 20 MG tablet 20 mg PO HS RF: 0 cyanocobalamin (vitamin B-12) [Vitamin B-12] 1,000 MCG tablet 1,000 mcg PO DAILY RF: 0 aspirin [Aspir-81] 81 MG tablet,delayed release (DR/EC) 81 mg PO DAILY RF: 0 folic acid 1 MG tablet 1 mg PO DAILY RF: 0 duloxetine [Cymbalta] 60 MG capsule,delayed release(DR/EC) 60 mg PO HS RF: 0 Spiriva Respimat 4 GM mist 1 puff Inhalation DAILY RF: 0 Symbicort 10.2 GM HFA aerosol inhaler 2 puff Inhalation BID RF: 0 Novolog U-100 Insulin aspart 100 UNITS/ML solution 30 units SQ TID RF: 0 Lantus U-100 Insulin 100 UNIT/ML solution 50 units SQ BID RF: 0 ondansetron HCl [Zofran] 8 MG tablet 8 mg PO TID PRNRF: 0 diphenoxylate-atropine [Lomotil] 1 TAB tablet 1 tab PO PRN PRNRF: 0 hydrocortisone 5 mg Tablet 5 mg PO DAILY RF: 0 levothyroxine 150 mcg Tablet 150 mcg PO DAILY RF: 0 lisinopril 5 mg Tablet 5 mg PO DAILY RF: 0 hydrocortisone 10 mg Tablet 20 mg PO DAILY RF: 0 Trulicity 1.5 mg/0.5 mL Pen Injector 1.5 mg SUBCUT QWEEK RF: 0 No Action carbamazepine 200 MG tablet 200 mg PO BID RF: 0 Discharge Instructions Instructions: Influenza (GEN), COPD (Chronic Obstructive Pulmonary Disease) (GEN), Community Acquired Pneumonia (GEN) Additional Instructions: Follow up with PCP in one week. Take all medications as prescribed. If symptoms worsen, you have chest pain, Shortness of breath, fevers, report to the emergency department immediately. Stand Alone Forms: Nursing Discharge Form Referrals: JENNI DELUNA [Primary Care Provider] - Activity:: Activity as Tolerated Equipment/Supplies:: Resume home health services and [facility] home o2 Diet:: Carb Counting Discharge Orders Discharge Orders: Discharge Order (Routine); Ordered 05/10/18 Ordered By: Ami Sanchez Exam Narrative Exam Narrative: General: Very pleasant obese female, sitting up in chair. HEENT: EOMI, MMM Heart: RRR, no m/r/g Lungs: clear diminshed. on 3 l which is baseline GI: abdomen is soft, nontender, nondidstended Extremities: no edema, no clubbing or cyanosis DS: Data Vitals/I&O Vitals and I&O: Vital Signs Temperature 36.4 C L 05/10/18 07:20 Temperature Source Tympanic 05/10/18 07:20 Pulse 83 05/10/18 07:20 Pulse Rhythm Regular 05/09/18 23:48 Pulse 92 H 05/07/18 08:00 Respiratory Rate 18 05/10/18 07:20 Respiratory Effort Non-Labored 05/09/18 23:48 Respiratory Depth Normal 05/09/18 23:48 Respiratory Pattern Normal 05/09/18 23:48 Blood Pressure 133/78 05/10/18 07:20 Blood Pressure Mean 70 05/07/18 14:48 Blood Pressure Position Supine 05/07/18 08:40 Pulse Oximetry 95 05/10/18 07:20 Oxygen Delivery Method Nasal Cannula 05/10/18 07:20 Oxygen Flow Rate 3 05/10/18 07:20 Pain Level 8 05/10/18 07:20 Comment 05/09/18 03:30 Intake & Output 05/09/18 05/09/18 05/10/18 11:59 23:59 12:59 Intake Total 1150 / 1150 510 / 510 Output Total 240 / 240 400 / 400 Balance 910 / 910 110 / 110 Weight 158.9 kg Intake: IV 150 / 150 170 / 170 Oral 1000 / 1000 340 / 340 Output: Urine 240 / 240 400 / 400 Other: Urine Color Yellow Light Giselle Urine Appearance Clear Clear Clear Urine Odor None Comment pt went in commode some but was also INC moderate amount unmeasured , mixed with stool Stool Size Large Stool Characteristics Soft Formed Voiding Methods Diaper Bedside Commode Incontinent Completed studies during hospitalization [Text1]: EXAM DATE/TIME: 05/06/2018 6:49 PM CLINICAL HISTORY: 58 years old, female; Signs and symptoms; Cough; Prior surgery; Surgery date: 1-6 months; Surgery type: Left mastectomy in march. ; Patient HX: Cough, SOB, abdominal issues since today. TECHNIQUE: XR of the chest, 2 views. COMPARISON: CR CHEST 2 VIEWS PA,LAT 04/03/2017 10:07 AM FINDINGS: Tubes, catheters and devices: Indwelling central venous catheter port tip superimposed over the lower SVC. Lungs: Minimal patchy density in the left medial lung base on the PA radiograph, likely posterior on the lateral study. Differential diagnosis includes atelectasis and small pneumonia. Clear right lung. Pleural space: No pleural effusion or pneumothorax. Heart/Mediastinum: Unremarkable. No cardiomegaly. Bones/joints: Unremarkable. IMPRESSION: Small area of left lower lobe airspace disease. Differential diagnosis includes atelectasis and pneumonia. Admission Date: 05/06/18 : 1960 Age: 58 Exam(s) a RAD:XR chest 2V PA & lateral SYMPTOM/DIAGNOSIS: COUGH, SOB, H/O BREAST CA PA AND LATERAL CHEST: Comparison is made with 04/03/17. Cardiac silhouette appears stable. The tip of the indwelling central venous catheter is in good position in the superior vena cava. Pulmonary vasculature is within normal limits. There are increased lung markings in the left base medially. This may represent atelectasis or pneumonia. No other infiltrates, effusions or pneumothoraces are identified. Degenerative changes are seen in the spine. IMPRESSION: Left basilar infiltrate medially. This may represent atelectasis or pneumonia. Sputum Culture Final 05/10/18-0904 Day 1 Result ISOLATES BELOW DAY 1 GROWTH MODERATE GROWTH ISOLATE 1 APPEARANCE Normal Beverly Day 2 Result ISOLATES BELOW DAY 2 GROWTH HEAVY GROWTH ISOLATE 1 APPEARANCE Normal Beverly Day 3 Result ISOLATES BELOW DAY 3 GROWTH HEAVY GROWTH ISOLATE 1 APPEARANCE Normal Beverly Organism 1 NORMAL BEVERLY GROWTH HEAVY GROWTH Gram Stain Final 05/07/18-1424 GRAM STAIN Moderate White Blood Cells Rare Epithelial Cells Rare Gram Positive Cocci Labs on day of discharge: Labs from last 24 hours 05/10/18 05/10/18 05/09/18 07:30 07:30 11:00 WBC Cancelled RBC Cancelled Hgb Cancelled Hct Cancelled MCV Cancelled MCH Cancelled MCHC Cancelled RDW Cancelled Plt Count Cancelled MPV Cancelled Abs Immat Gran (auto) Cancelled Immature Gran % Cancelled Neutrophils % Cancelled Band Neutrophils % Cancelled Lymphocytes % Cancelled Atypical Lymphs % Cancelled Monocytes % Cancelled Eosinophils % Cancelled Basophils % Cancelled Metamyelocytes % Cancelled Myelocytes % Cancelled Promyelocytes % Cancelled Absolute Neutrophils Cancelled Absolute Lymphocytes Cancelled Absolute Monocytes Cancelled Absolute Eosinophils Cancelled Absolute Basophils Cancelled Nucleated RBCs Cancelled Differential Comment Cancelled Other Cell Type Cancelled RBC Morphology Cancelled Polychromasia Cancelled Hypochromasia Cancelled Poikilocytosis Cancelled Basophilic Stippling Cancelled Anisocytosis Cancelled Microcytosis Cancelled Macrocytosis Cancelled Spherocytes Cancelled Target Cells Cancelled Tear Drop Cells Cancelled Ovalocytes Cancelled Stomatocytes Cancelled [place] Bodies Cancelled Fence Cells Cancelled Acanthocytes (Spur) Cancelled Schistocytes Cancelled Sodium Cancelled Potassium Cancelled Chloride Cancelled Carbon Dioxide Cancelled Anion Gap Cancelled BUN Cancelled Creatinine Cancelled Estimated GFR/1.73 m2 Cancelled Glucose Cancelled Calcium Cancelled Vancomycin Trough Cancelled Preliminary micro results at discharge 05/06/18 19:20 Blood Culture - Preliminary Blood NO GROWTH 72 HOURS 05/06/18 19:20 Blood Culture - Preliminary Blood NO GROWTH 72 HOURS 05/08/18 11:25 Blood Culture - Preliminary Blood NO GROWTH 24 HOURS 05/07/18 10:48 Blood Culture - Preliminary Blood NO GROWTH 48 HOURS [facility] Medical History Obesity (Chronic) Dyslipidemia (Chronic) Hypothyroidism (Chronic) Depression (Chronic) Pneumonia (Acute) Influenza B (Acute) Diabetes mellitus (Chronic) COPD (chronic obstructive pulmonary disease) (Chronic) History of breast cancer (Chronic) Hypopituitarism (Chronic) Social History Smoking and Tabacco status: Former Tobacco Use additional social history: , with 2 children. She is not working and on disability. Has a history of tobacco, quit in 1992. Reports rare use of alcohol only.
[2018-05-10] MEDS: Heparin 500 UNITS/5 ML SYRINGE IVP (10:09)
--- NOTE | 2018-05-10 10:24 | PT.INNT ---
Date of service: 05/10/18 Time of Service: 10:24 PT Notes 05/10/18 Patient refused PT session, stating I'm going home.
[2018-05-10] MEDS: Hydrocortisone 10 MG TAB 50 MG PO (10:55)
--- NOTE | 2018-05-11 08:00 | OT.INDS ---
Date of service: 05/11/18 Time of Service: 08:00 Occupational Therapy Notes Occupational Therapy Inpatient Discharge Summary Dates of Service: 05/08/18-05/10/18 Date: 05/11/18 for 05/10/18 Referring Doctor:Sheyla Reno MD OT Orders: Eval and Treat Precautions: Droplet, Standard and Fall PATIENT PROFILE/ADMITTING DIAGNOSIS: Pt is a 58 year old female who was admitted through the ER on 05/06/18 for Influenza B and pneumonia. Past Medical History: Obesity (Chronic) Dyslipidemia (Chronic) Hypothyroidism (Chronic) Depression (Chronic) Pneumonia (Acute) Influenza B (Acute) Diabetes mellitus (Chronic) COPD (chronic obstructive pulmonary disease) (Chronic) History of breast cancer (Chronic) Hypopituitarism (Chronic) Social History/Home Situation: Pt refers to herself as disabled. She lives in a private home with her daughter and reports that her other daughter lives up the road. Pt uses a walker for ambulation. Her daughter is her primary provider and cares for her 24 hours a day. Pt reports that her bathroom is on the second floor of her house so she is unable to access her shower. She reports that she washes up in her room with (A) from her daughter. She uses a commode for toileting. Pt reports that she is able to perform dressing routine with max (A) for (B) socks. She does not perform teeth hygiene and brushes her hair sitting in her bed (I). Pts daughter performs all the driving and pt relies on daughter for meals which pt reports that sometimes she cooks but not as often anymore. Equipment owned/DME: FWW THIS DOCUMENT SERVES A SUMMARY OF CARE FOR PATIENT, NO SKILLED OT SERVICES PROVIDED FOR THIS NOTE. SUBJECTIVE: NT OBJECTIVE: ROM: RUE AROM WNL L UE AROM WNL STRENGTH: RUE 5/5 throughout, high school coach is strong and symmetrical LUE 5/5 throughout, high school coach is strong and symmetrical BALANCE: Static sitting Good Dynamic Sitting Good ASSESSMENT: Patient is a 58-year-old female referred to occupational therapy services with diagnosis of influenza B and pneumonia. Pt was seen for OT consult only. OT was unable to assess goals at this time. Pt was discharged on 05/10/18 and medically cleared per MD. GOALS (NOT MET) 1. Transfers SBA, FWW 2. Dressing Sitting in chair with will be able to don and doff LE dressing with min (A) and UE dressing (I) 3. Bathing Standing at sink with FWW, (I) With face, (B) UE and abdomen 4. Toileting on commode (I) PLAN OF CARE/TREATMENT PLAN: Pt was discharged on 05/10/18 DISCHARGE RECOMMENDATIONS Home with Home health OT when medically cleared per MD. TREATMENT TIME/MINUTES/CODES N/A Morenita Guajardo OTR/L [facility]
--- NOTE | 2018-05-14 13:03 | PT.INDS ---
PT Notes Patient Location: Med Surg Referring Provider: Sheyla Reno MD Inpatient Physical Therapy Discharge Summary Date: 05/14/2018 Dates of service: 05/08/2018 only PT Orders: PT CONSULT: Eval/treat Precautions: Fall. Standard. Droplet. Morbidly obese. Patient Profile/Admitting Diagnosis: 58-year-old female admitted on 05/06/2018 and referred for physical therapy to address impairments and functional deficits resulting from hypotension, hypoxia with diagnoses of Influenza and Pneumonia. PMHX: IDDM, Breast CA with left mastectomy, right mastectomy planned for June 2018, COPD, hypothyroid, hypopituitarism. Social History/Home Situation: Candace lives with her daughter in [place], [place] in a two-story house with a ramp to enter rails on both sides. Patient has stairs to the second floor of the house but has everything she needs on the first floor. She is disabled. She has 2 daughters locally. She receives choices for care highest needs, and her daughter Kiki is her primary provider for 12 years now. Kiki's provides assistance with bathing and does although patient states she is able to cook for herself very infrequently. She was independent with walker for ambulation and has to walk about 80-90 feet to get to her car. She is dependent on her daughter for transportation to and from appointments. Daughter also provides assistance with bathing back as patient is only able to do her front part. Equipment Owned/DME: bariatric FWW, bariatric hospital bed, bariatric recliner, bariatric front wheeled walker This is a summary of care providd by physical therapy team for the duration of service listed above. No charge was made for this discharge. Subjective: NT Objective: General Observation: Hemosiderin staining observed in bilateral distal legs. Abdomen protuberant. Mental Status: Alert and oriented x3 Pain: NT ROM: Right Upper Extremity: Shoulder flexion 90-100 degrees. Elbow flexion WFL. Good functional opening of hand. Left Upper Extremity: Shoulder flexion 90-100 degrees. Elbow flexion WFL. Good functional opening of hand. Right Lower Extremity: Patient is able to perform straight leg raise to approximately 20-25 degrees. Able to bend knee to about 10 degrees. Dorsiflexion/plantarflexion WFL. Left Lower Extremity: Patient able to perform straight leg raise to 10 degrees. Able to actively bend knee to about 5 degrees. Dorsiflexion/plantarflexion WFL Strength: Right Upper Extremity: Shoulder flexion 3-/5. Elbow flexion 4/5. Leadership Recruiter strong and functional Left Upper Extremity: Shoulder flexion 3-/5. Elbow flexion 4/5. Leadership Recruiter strong and functional. Right Lower Extremity: Hip flexion 3-/5. Hip extension 3/5. Knee flexion 3-/5. Knee extension 3+/5. Ankle dorsiflexion/plantarflexion 4/5. Left Lower Extremity: Hip flexion 3-/5. Hip extension 3/5. Knee flexion 3-/5. Knee extension 3+/5. Ankle dorsiflexion/plantarflexion 4/5. Bed Mobility/Transfers: Supine to sit: Mod A, HOB 30 degrees elevated Sit to supine: Mod A, HOB 30 degrees elevated Sit to stand: Min A, requires use of both hands for support on FWW. Patient able to support self while holding onto bed rail and onto recliner armrest. Stand to sit: Min A, requires use of both hands for support on FWW. Patient able to support self while holding onto bed rail and onto recliner armrest. Bed to chair: Min A, requires use of both hands for support on FWW. Patient able to support self while holding onto bed rail and onto recliner armrest. Chair to bed: Min A, requires use of both hands for support on FWW. Patient able to support self while holding onto bed rail and onto recliner armrest. Gait: As of 05/08/2018, patient only able to sidesteps 3-5 times onto her recliner for transfers with BUE support needed and minimal assist provided. Gait deferred today due to fatigue. Balance: Static Sitting: Fair Dynamic Sitting: Fair Static Standing: Fair Dynamic Standing: Fair fluorine 19 over in bed to stand Special Tests: Mobility Limitations Standardized Measure [facility] AM-PAC 6 clicks Basic Mobility Inpatient Short Form: Raw Score: 16 CMS Score: 54.16 % deficit Assessment: Patient is a 58-year-old year old female referred to physical therapy services with the diagnosis of Influenza, pneumonia. Patient presents with clinical signs and symptoms consistent with mobility decline and transfer/ambulation dependence resulting from medical condition. Patient does have chronic functional mobility deficits and has a daughter for her longtime caregiver. PT goals will be aimed at addressing the following impairment level findings: 1. Decreased range of motion for hip and knee bilaterally 2. Impaired strength to BLE 3. Impaired activity tolerance 4. Decreased balance skills Impairments are contributing to the following functional limitations: 1. Increase dependence with bed mobility performance 2. Reduced transfer skills 3. Increased risk for falls due to balance impairments 4. Limited ambulation distance Goals: Goals X1 week 1. Supine-Sit independent MET 2. Sit-Supine independent MET 3. Sit-Stand independent NOT MET 4. Stand-Sit independent NOT MET 5. Bed-Chair supervision NOT MET 6. Chair-Bed supervision NOT MET 7. Gait indoor and outdoor ambulation using FWW for at least 100 feet NOT MET 8. Independent with home exercise program MET 9. Balance good NOT MET DISCHARGE RECOMMENDATIONS: To home with previous support services in place. May benefit from home health PT services to ensure a smooth transition to home and reduce fall risk. Thank you for this referral. Allie Miguel, PT, DPT, CLT [facility]
== END 2018-05-10 11:12 | disposition home or self-care (01) | DRG 194 ==
LOC: ER 20:47 → ICU 23:58 → MS 05-10 10:00 → ICU 05-18 14:05 → MS 05-18 14:05
PROVIDERS: Internal Medicine; Admitting Provider Internal Medicine; Emergency Provider Student in an Organized Health Care Education/Training Program; PCP Family Medicine; Visit Provider Internal Medicine
DX: J10.00 Influenza due to other identified influenza virus with unspecified type of pneumonia (principal); J44.0 Chronic obstructive pulmonary disease with (acute) lower respiratory infection; E23.0 Hypopituitarism; N17.9 Acute kidney failure, unspecified; R09.02 Hypoxemia; I95.9 Hypotension, unspecified; J44.9 Chronic obstructive pulmonary disease, unspecified; E11.9 Type 2 diabetes mellitus without complications; Z79.4 Long term (current) use of insulin; Z79.810 Long term (current) use of selective estrogen receptor modulators (SERMs); Z85.3 Personal history of malignant neoplasm of breast
CPT/HCPCS: 36415; 36591; 80048; 80053; 87040; 87449; 93005; 94640; 97162; 97166; 97530; 99223; 99232; 99233; 99239; 99285; 71046; 80202; 83605; 83735; 83880; 84484; 85025; 85379; 87070; 87205; 93010; J1644; J1720; J1815; J1956; J3370; J3475; J7620

== ENCOUNTER 2018-10-29 15:38 | Outpatient (REF) | payer MEDICARE, MEDICAID, SELFPAY ==
[2018-10-29 21:46] LABS: Absolute Basophil Count 0.02 k/cumm (0.0-0.2); Absolute Eosinophil Count 0.09 k/cumm (0.0-0.7); Absolute Lymphocyte Count 1.46 k/cumm (1.2-3.4); Absolute Monocyte Count 0.28 k/cumm (0.11-0.7); Absolute Neutrophil Count 2.52 k/cumm (1.2-6.7); Basophils % 0.5; Eosinophils % 2.1; HCT 37.3 % (36.0-46.0); HGB 11.6 g/dL (12.0-15.5); Lymphocytes % 33.4; Mean Corp. HGB Concentration 31.1 g/dL (32.0-36.0); Mean Corpuscular Hemoglobin 29.1 pg (27.0-33.0); Mean Corpuscular Volume 93.5 fL (80-95); Monocytes % 6.4; Neutrophils % 57.6; Platelet Count 261 x1000/uL (130-400); RBC 3.99 m/cumm (4.00-5.20); White Blood Cell Count 4.37 k/cumm (4.4-10.8)
[2018-10-29 22:09] LABS: BUN 16 mg/dL (7-18); CREATININE 1.01 mg/dL (0.55-1.02); Calcium 8.5 mg/dL (8.5-10.1); Chloride 103 mmol/L (98-107); Glucose 230 mg/dL (70-100); Potassium 4.5 mmol/L (3.5-5.1); Sodium 141 mmol/L (136-145)
== END 2018-10-29 15:58 ==
LOC: NCHCN 15:38
PROVIDERS: PCP Family Medicine; Visit Provider Registered Nurse
DX: D69.6 Thrombocytopenia, unspecified (principal); N17.9 Acute kidney failure, unspecified
CPT/HCPCS: 80048; 85025

== ENCOUNTER 2019-02-02 12:12 | Inpatient (IN) | payer MEDICARE, MEDICAID, SELFPAY ==
[2019-02-02] VITALS (7 sets, daily range): BP systolic 82–146; BP diastolic 39–75; PULSE 89–92; RESP 20–22; TEMP 36.7–37.9; O2SAT 89–94
--- NOTE | 2019-02-02 12:43 | W.ED.GENAD ---
Discharge Plan Disposition Patient Disposition: [facility] INPATIENT Condition: Stable Discharge Details Chief Complaint: Nausea/Vomit/Diar Clinical Impression: Recurrent Clostridium difficile diarrhea Admit Date/Time: 02/02/19 15:13 Admit Provider: Sheyla Reno Attending Provider: Sheyla Reno Primary Care Provider: Jan Coleman ED Provider: Gavi Cervantes Medical Decision Making 1230 -- 58-year-old female with a history of morbid obesity, COPD, depression, diabetes, breast cancer, hypothyroidism and recent treatment for C. difficile diarrhea presents with diarrhea for the past 6 days. She was admitted to [facility] earlier last month for diarrhea and diagnosed with C C. difficile colitis. She states she was treated with antibiotics which she finished 3 days after discharge from there 2 weeks ago. She does not know the name of the antibiotics. She states her symptoms completely resolved until 6 days ago after Thanksgiving dinner. She states she has had numerous episodes of watery brown diarrhea daily. She also states the stool is sometimes black and she is taking iron. She denies any fever, vomiting, urinary symptoms. She states she has occasional nausea and abdominal pain but states this is minimal. BP 97/33. O2 sat 91% but patient has a history of COPD and does not appear in any acute respiratory distress. Afebrile. She appears nontoxic. She is morbidly obese. Abdomen is soft and nontender. Will place an IV, bolus IV fluids, screening labs and stool culture. I do not see an indication for imaging at this time as pt symptoms appear c/w previous recent c diff and her abdomen is nontender. 1445 --labs reviewed. White blood cell count 3.49. Hemoglobin 10.9, decreased from 11.6. Lactate 2.3. BP improved to 122/48. 1500 --case d/w hospitalist who accepts pt for admission. Would like IV flagyl and PO Vanc. Confirmed with [facility] and pt was taking PO vancomycin x 10 days and PO levaquin x 4 days recently after her d/c from [facility] for c diff. 1600 --C. difficile screen antigen positive. Medical Records Medical records reviewed: Yes I reviewed the patient's medical records. Lab Data Lab results reviewed: Yes I reviewed the patient's lab results. Labs: Laboratory Tests Range/Units 02/02/19 02/02/19 02/02/19 12:50 12:50 12:50 WBC (4.4-10.8) k/cumm 3.49 L RBC (4.00-5.20) m/cumm 3.53 L Hgb (12.0-15.5) g/dL 10.9 L Hct (36.0-46.0) % 33.8 L MCV (80-95) fL 95.8 H MCH (27.0-33.0) pg 30.9 MCHC (32.0-36.0) g/dL 32.2 RDW (11.7-14.6) % 15.6 H Plt Count (130-400) x1000/uL 222 MPV (8.0-11.0) fL 9.4 Immature Gran % 0.0 Neutrophils % 50.0 Band Neutrophils % Lymphocytes % 35.0 Atypical Lymphs % Monocytes % 9.2 Eosinophils % 5.2 Basophils % 0.6 Metamyelocytes % Myelocytes % Promyelocytes % Absolute Neutrophils (1.2-6.7) k/cumm 1.75 Absolute Lymphocytes (1.2-3.4) k/cumm 1.22 Absolute Monocytes (0.11-0.7) k/cumm 0.32 Absolute Eosinophils (0.0-0.7) k/cumm 0.18 Absolute Basophils (0.0-0.2) k/cumm 0.02 Nucleated RBCs Differential Comment Other Cell Type RBC Morphology Polychromasia Hypochromasia Poikilocytosis Basophilic Stippling Anisocytosis Microcytosis Macrocytosis Spherocytes Target Cells Tear Drop Cells Ovalocytes Stomatocytes [place] Bodies Yoselin Cells Acanthocytes (Spur) Schistocytes Sodium (136-145) mmol/L 139 Potassium (3.5-5.1) mmol/L 3.9 Chloride (98-107) mmol/L 102 Carbon Dioxide (21.0-32.0) mmol/L 29.5 Anion Gap (3-11) mmol/L 7.5 BUN (7-18) mg/dL 20 H Creatinine (0.55-1.02) mg/dL 1.25 H Estimated GFR/1.73 m2 (mL/min/1.73m2) 43.87 Glucose (74-106) mg/dL 164 H Lactate (0.6-1.4) mmol/L 2.3 H* Calcium (8.5-10.1) mg/dL 9.0 Total Bilirubin (0.2-1.0) mg/dL 0.1 L AST (15-37) U/L 24 ALT (14-59) U/L 21 Alkaline Phosphatase (46-116) U/L 115 Troponin I Total Protein (6.4-8.2) g/dL 8.0 Albumin (3.4-5.0) g/dL 3.3 L Lipase (73-393) U/L 119 TSH Free T4 Range/Units 02/02/19 02/02/19 12:58 12:58 WBC (4.4-10.8) k/cumm Cancelled RBC (4.00-5.20) m/cumm Cancelled Hgb (12.0-15.5) g/dL Cancelled Hct (36.0-46.0) % Cancelled MCV (80-95) fL Cancelled MCH (27.0-33.0) pg Cancelled MCHC (32.0-36.0) g/dL Cancelled RDW (11.7-14.6) % Cancelled Plt Count (130-400) x1000/uL Cancelled MPV (8.0-11.0) fL Cancelled Immature Gran % Cancelled Neutrophils % Cancelled Band Neutrophils % Cancelled Lymphocytes % Cancelled Atypical Lymphs % Cancelled Monocytes % Cancelled Eosinophils % Cancelled Basophils % Cancelled Metamyelocytes % Cancelled Myelocytes % Cancelled Promyelocytes % Cancelled Absolute Neutrophils (1.2-6.7) k/cumm Cancelled Absolute Lymphocytes (1.2-3.4) k/cumm Cancelled Absolute Monocytes (0.11-0.7) k/cumm Cancelled Absolute Eosinophils (0.0-0.7) k/cumm Cancelled Absolute Basophils (0.0-0.2) k/cumm Cancelled Nucleated RBCs Cancelled Differential Comment Cancelled Other Cell Type Cancelled RBC Morphology Cancelled Polychromasia Cancelled Hypochromasia Cancelled Poikilocytosis Cancelled Basophilic Stippling Cancelled Anisocytosis Cancelled Microcytosis Cancelled Macrocytosis Cancelled Spherocytes Cancelled Target Cells Cancelled Tear Drop Cells Cancelled Ovalocytes Cancelled Stomatocytes Cancelled [place] Bodies Cancelled Yoselin Cells Cancelled Acanthocytes (Spur) Cancelled Schistocytes Cancelled Sodium (136-145) mmol/L Cancelled Potassium (3.5-5.1) mmol/L Cancelled Chloride (98-107) mmol/L Cancelled Carbon Dioxide (21.0-32.0) mmol/L Cancelled Anion Gap (3-11) mmol/L Cancelled BUN (7-18) mg/dL Cancelled Creatinine (0.55-1.02) mg/dL Cancelled Estimated GFR/1.73 m2 (mL/min/1.73m2) Cancelled Glucose (74-106) mg/dL Cancelled Lactate (0.6-1.4) mmol/L Calcium (8.5-10.1) mg/dL Cancelled Total Bilirubin (0.2-1.0) mg/dL Cancelled AST (15-37) U/L Cancelled ALT (14-59) U/L Cancelled Alkaline Phosphatase (46-116) U/L Cancelled Troponin I Cancelled Total Protein (6.4-8.2) g/dL Cancelled Albumin (3.4-5.0) g/dL Cancelled Lipase (73-393) U/L TSH Cancelled Free T4 Cancelled HPI General Mode of arrival: wheelchair. Date/Time Provider Initiated Documentation: 02/02/19 12:24. Limitations to Documentation: no limitations. Information obtained by: patient. History of Present Illness 58 year old F presents to the emergency department with the chief complaint of Diarrhea, Quality is described as aching and other (Occasional intermittent upper abdominal pain), and is localized to the abdomen. Patient reports no radiation. Patient started experiencing this day(s) (6) and it has been constant. No relieving factors improve symptom(s), No exacerbating factors reported . Patient notes denies confusion, chest pain, cough, diaphoresis, fever/chills, headaches, loss of appetite, malaise, nausea/vomiting, rash, seizure, shortness of breath, syncope and weakness. Patient did receive the following treatments prior to arrival, none Related Data Home Medications Medication Instructions Recorded Confirmed Spiriva Respimat 1 puff INHALATION DAILY 04/03/17 02/02/19 Symbicort 2 puff INHALATION BID 04/03/17 02/02/19 aspirin [Aspir-81] 81 mg PO DAILY 04/03/17 02/02/19 atorvastatin [Lipitor] 40 mg PO HS 04/03/17 02/02/19 carbamazepine 200 mg PO BID 04/03/17 02/02/19 cetirizine [Zyrtec] 10 mg PO DAILY 04/03/17 02/02/19 cyanocobalamin (vitamin B-12) 1,000 mcg PO DAILY 04/03/17 02/02/19 [Vitamin B-12] diphenoxylate-atropine [Lomotil] 1 tab PO PRN PRN 04/03/17 02/02/19 duloxetine [Cymbalta] 60 mg PO HS 04/03/17 02/02/19 ferrous sulfate 325 mg PO TID 04/03/17 02/02/19 folic acid 1 mg PO DAILY 04/03/17 02/02/19 montelukast [Singulair] 10 mg PO DAILY 04/03/17 02/02/19 ondansetron HCl [Zofran] 8 mg PO TID PRN 04/03/17 02/02/19 pregabalin [Lyrica] 200 mg PO TID 04/03/17 02/02/19 dulaglutide [Trulicity] 1.5 mg SUBCUT QWEEK 05/06/18 02/02/19 hydrocortisone 5 mg PO QNOON 05/06/18 02/02/19 hydrocortisone 20 mg PO QAM 05/06/18 02/02/19 levothyroxine 150 mcg PO DAILY 05/06/18 02/02/19 benzonatate 200 mg PO TID PRN #15 cap 05/10/18 02/02/19 guaifenesin [Mucinex] 600 mg PO BID #10 tab 05/10/18 02/02/19 Letozole 2.5 mg PO DAILY 02/02/19 abemaciclib [Verzenio] 150 mg PO BID 02/02/19 02/02/19 duloxetine [Cymbalta] 60 mg PO HS 02/02/19 02/02/19 insulin regular hum U-500 conc 45 unit SUBCUT QNOON 02/02/19 02/02/19 [Humulin R U-500 (Conc) Kwikpen] insulin regular hum U-500 conc 45 unit SUBCUT QPM 02/02/19 02/02/19 [Humulin R U-500 (Conc) Kwikpen] insulin regular hum U-500 conc 85 unit SUBCUT QAM 02/02/19 02/02/19 [Humulin R U-500 (Conc) Kwikpen] loratadine 10 mg PO DAILY 02/02/19 02/02/19 omeprazole 40 mg PO DAILY 02/02/19 02/02/19 Previous Rx's Medication Instructions Recorded benzonatate 200 mg PO TID PRN #15 cap 05/10/18 guaifenesin [Mucinex] 600 mg PO BID #10 tab 05/10/18 Allergies Allergy/AdvReac Type Severity Reaction Status Date / Time bee venom protein (honey bee) Allergy Unknown Unverified 02/02/19 14:22 Latex, Natural Rubber AdvReac Intermediate Unverified 02/02/19 14:22 adhesive tape AdvReac Mild Unverified 02/02/19 14:22 General Stated Complaint: Nausea/Vomit/Diar CARMEN: 3 Review of Systems All systems reviewed & are unremarkable except as noted in HPI and below Constitutional Constitutional: Reports as per HPI, Denies chills and Denies fever(s) Eyes Eyes: Denies blurry vision ENT Ears, Nose, Mouth, and Throat: Denies dizziness, Denies sore throat and Denies throat swelling Cardiovascular Cardiovascular: Denies chest pain and Denies dyspnea Respiratory Respiratory: Denies cough and Denies dyspnea Gastrointestinal Gastrointestinal: Reports abdominal pain, Reports diarrhea and Denies vomiting Genitourinary Genitourinary: Denies hematuria and Denies dysuria Musculoskeletal Musculoskeletal: Denies back pain and Denies numbness Integumentary/Breasts Skin/Breast: Denies lesions and Denies rash Neurologic Neurologic: Denies dizziness, Denies focal weakness and Denies numbness Allergic/Immunologic Allergic/Immunologic: Denies throat swelling [facility] Medical History (Updated 02/02/19 @ 17:13 by Ellen Chapin) C. difficile diarrhea (Acute) COPD (chronic obstructive pulmonary disease) (Chronic) Depression (Chronic) Diabetes mellitus (Chronic) Diverticulosis (Acute) Dyslipidemia (Chronic) History of breast cancer (Chronic) Hypopituitarism (Chronic) Hypothyroidism (Chronic) Influenza B (Acute) Obesity (Chronic) Pneumonia (Acute) Social History Smoking/Tobacco Use Status: Former Tobacco Use Alcohol Intake: never Substance use type: does not use Do you feel safe at home: Yes Do you feel safe in your relationship?: Yes Additional Social history: , with 2 children. She is not working and on disability. Has a history of tobacco, quit in 1992. Reports rare use of alcohol only. Exam Const General: cooperative and no acute distress Nutritional Appearance: obese morbidly obese Orientation: alert, awake and oriented x3 HENMT Head: normal to inspection Face and sinus: normal facial exam Eyes General: appearance normal, both eyes and all related structures Neck Neck: normal visual inspection and No submandibular swelling Lymphatic: no lymphadenopathy noted Chest Chest: normal inspection of the chest and no tenderness Resp Effort & Inspection: normal respiratory effort and able to speak in complete sentences Auscultation: clear to auscultation bilaterally Cardio Rate: regular rate Rhythm: regular rhythm GI Inspection: normal to inspection and obesity Palpation: soft, not firm, not rigid and nontender Auscultation: normal bowel sounds Skin General skin exam: no rashes or lesions noted Neuro General: alert, awake and oriented x3 Cognition: normal cognition Speech: speech normal Motor: muscle tone normal throughout Sensory Exam: no sensory deficits noted Extrem General: normal to inspection, full ROM, normal capillary refill, no calf tenderness bilaterally and no edema Psych Appearance: grossly normal Mental Status: mental status grossly normal Speech and Movement: speech and movement normal Affect: normal affect Course Vital Signs Vital signs: Vital Signs Temperature 98.1 F 02/02/19 12:18 Pulse 89 02/02/19 12:18 Respiratory Rate 20 02/02/19 12:18 Blood Pressure 97/39 L 02/02/19 12:18 Pulse Oximetry 91 L 02/02/19 12:18 Temperature 98.1 F 02/02/19 12:18 Temperature Source Temporal Artery Scan 02/02/19 12:18 Pulse 89 02/02/19 12:18 Respiratory Rate 20 02/02/19 12:18 Respiratory Effort 02/02/19 12:30 Blood Pressure 97/39 L 02/02/19 12:18 Pulse Oximetry 91 L 02/02/19 12:18 Oxygen Delivery Method Room Air 02/02/19 12:18 Oxygen Flow Rate 0 02/02/19 12:18 Pain Level 8 02/02/19 12:18
[2019-02-02] MEDS: Normal Saline 1,000 ML 1000 ML IV ×2 (13:00→14:48)
[2019-02-02 13:15] LABS: Lactate 2.3 mmol/L (0.6-1.4)
[2019-02-02 13:28] LABS: ALT 21 U/L (14-59); AST 24 U/L (15-37); Albumin 3.3 g/dL (3.4-5.0); Alkaline Phosphatase 115 U/L (46-116); Anion Gap 7.5 mmol/L (3-11); BUN 20 mg/dL (7-18); Bilirubin, Total 0.1 mg/dL (0.2-1.0); CO2 29.5 mmol/L (21.0-32.0); CREATININE 1.25 mg/dL (0.55-1.02); Chloride 102 mmol/L (98-107); Estimated GFR 43.87 (mL/min/1.73m2); Glucose 164 mg/dL (74-106); Lipase 119 U/L (73-393); Potassium 3.9 mmol/L (3.5-5.1); Sodium 139 mmol/L (136-145)
[2019-02-02 14:03] LABS: Absolute Basophil Count 0.02 k/cumm (0.0-0.2); Absolute Eosinophil Count 0.18 k/cumm (0.0-0.7); Absolute Lymphocyte Count 1.22 k/cumm (1.2-3.4); Absolute Monocyte Count 0.32 k/cumm (0.11-0.7); Absolute Neutrophil Count 1.75 k/cumm (1.2-6.7); Basophils % 0.6; Eosinophils % 5.2; HCT 33.8 % (36.0-46.0); HGB 10.9 g/dL (12.0-15.5); Mean Corp. HGB Concentration 32.2 g/dL (32.0-36.0); Mean Corpuscular Hemoglobin 30.9 pg (27.0-33.0); Mean Corpuscular Volume 95.8 fL (80-95); Mean Platelet Volume 9.4 fL (8.0-11.0); Monocytes % 9.2; Platelet Count 222 x1000/uL (130-400); RBC 3.53 m/cumm (4.00-5.20); RBC Distribution Width 15.6 % (11.7-14.6); White Blood Cell Count 3.49 k/cumm (4.4-10.8)
[2019-02-02] MEDS: metroNIDAZOLE 500 MG/100 ML BAG 100 MG IVPB (15:30)
[2019-02-02] MEDS: Normal Saline 1,000 ML 150 ML IV ×2 (16:39→18:55)
--- NOTE | 2019-02-02 18:18 | HPE_ITS ---
Date of service: 02/02/19 Time of Service: 18:19 Assessment and Plan Assessment and plan (1) Recurrent Clostridium difficile diarrhea: Status: Acute Assessment and plan: Will treat with IV metronidazole, PO vancomycin; questran to help bind stools. IVF. Hold verzenio. Will discuss safety of probiotics in patients on Verzenio with pharmacy. (2) Diabetes mellitus: Status: Chronic Assessment and plan: Continue home regimen with addition of a resistant SSI. Hold trulicity. (3) Hypopituitarism: Status: Chronic Assessment and plan: No evidence of acute adrenal insufficiency at this time - but low threshold to give stress dose steroids. Will monitor. (4) History of breast cancer: Status: Chronic Assessment and plan: Continue letrozole; hold Verzenio in setting of acute illness. (5) Dehydration: Status: Acute Assessment and plan: IVF (6) Physical deconditioning: Status: Acute Assessment and plan: PT consult (7) Chronic venous stasis dermatitis: Status: Acute Assessment and plan: wound care consult (8) Discharge planning issues: Status: Acute Assessment and plan: Per my conversation with the patient, her code status is full. (9) DVT prophylaxis: Status: Acute Assessment and plan: lovenox sc History of Present Illness History of Present Illness Chief Complaint: Diarrhea, weakness Narrative: Ms Maynard is a 58 year old female with PMHx of metastatic breast cancer with mets to lymphatic spread and bony metastases, s/p B mastectomies, on chemotherapy with Verzenio as well as Letrozole therapy, as well as postsurgical hypopituitarism and chronic adrenal insufficiency, steroid dependent on h ydrocortisone, IDDM2, and 2 prior episodes of C.Diff, most recently treated for this at [facility] in January and finishing her therapy with PO vancomycin in the middle of January, who for the last 2 days has had 8 watery bowel movements a day. She also has been feeling weak, but denies fevers, abdominal pain, diarrhea or blood in stool. Bowel movements have been green in color. She tested positive for C.Diff in the ED, was initiated on IV metronidazole and PO vancomycin. We were asked to admit the patient for further care as she is deconditioned and would be unlikely to succeed in treatment at home. Review of Systems Narrative: 12 systems reviewed. Pertinent positives and negatives are as per HPI. REPLACED BY [facility] Medical History (Updated 02/02/19 @ 18:51 by Sheyla Reno MD) C. difficile diarrhea (Acute) Carpal tunnel syndrome (Acute) Chronic adrenal insufficiency (Acute) Chronic pain (Chronic) Chronic respiratory failure with hypoxia (Acute) Chronic venous stasis dermatitis (Acute) COPD (chronic obstructive pulmonary disease) (Chronic) On nocturnal oxygen - 2L prn Depression (Chronic) Diabetes mellitus (Chronic) Insulin dependent Diverticulosis (Acute) Dyslipidemia (Chronic) History of breast cancer (Chronic) metastatic, with lymphatic spread and bone mets Hyperlipidemia (Acute) Hypopituitarism (Chronic) Hypothyroidism (Chronic) Influenza B (Acute) Iron deficiency anemia (Acute) Obesity (Chronic) Obstructive sleep apnea (Chronic) per [facility] records Pneumonia (Acute) Restless leg syndrome (Acute) Spinal stenosis (Acute) Surgical History (Updated 02/02/19 @ 18:43 by Sheyla Reno MD) H/O bilateral mastectomy (Acute) H/O colonoscopy with polypectomy (Acute) History of carpal tunnel release of both wrists (Acute) Port-A-Cath in place (Acute) Status post transsphenoidal pituitary resection (Acute) Family History (Updated 02/02/19 @ 18:43 by Sheyla Reno MD) Father Prostate cancer Diabetes Social History (Updated 02/02/19 @ 18:44 by Sheyla Reno MD) Smoking/Tobacco Use Status: Former Tobacco Use Alcohol Intake: never Substance use type: does not use Do you feel safe at home: Yes Do you feel safe in your relationship?: Yes Additional Social history: , with 2 children. She is not working and on disability. Has a history of tobacco, quit in 1992. Reports rare use of alcohol only. Lives with daughter. Uses a walker to ambulate. Meds Home Medications and Allergies Home Medications Medication Instructions Recorded Confirmed Type Spiriva Respimat 1 puff INHALATION DAILY 04/03/17 02/02/19 History Symbicort 2 puff INHALATION BID 04/03/17 02/02/19 History aspirin [Aspir-81] 81 mg PO DAILY 04/03/17 02/02/19 History atorvastatin [Lipitor] 40 mg PO HS 04/03/17 02/02/19 History carbamazepine 200 mg PO BID 04/03/17 02/02/19 History cetirizine [Zyrtec] 10 mg PO DAILY 04/03/17 02/02/19 History cyanocobalamin (vitamin B-12) 1,000 mcg PO DAILY 04/03/17 02/02/19 History [Vitamin B-12] diphenoxylate-atropine [Lomotil] 1 tab PO PRN PRN 04/03/17 02/02/19 History duloxetine [Cymbalta] 60 mg PO HS 04/03/17 02/02/19 History ferrous sulfate 325 mg PO TID 04/03/17 02/02/19 History folic acid 1 mg PO DAILY 04/03/17 02/02/19 History montelukast [Singulair] 10 mg PO DAILY 04/03/17 02/02/19 History ondansetron HCl [Zofran] 8 mg PO TID PRN 04/03/17 02/02/19 History pregabalin [Lyrica] 200 mg PO TID 04/03/17 02/02/19 History dulaglutide [Trulicity] 1.5 mg SUBCUT QWEEK 05/06/18 02/02/19 History hydrocortisone 5 mg PO QNOON 05/06/18 02/02/19 History hydrocortisone 20 mg PO QAM 05/06/18 02/02/19 History levothyroxine 150 mcg PO DAILY 05/06/18 02/02/19 History benzonatate 200 mg PO TID PRN #15 cap 05/10/18 02/02/19 Rx guaifenesin [Mucinex] 600 mg PO BID #10 tab 05/10/18 02/02/19 Rx Letozole 2.5 mg PO DAILY 02/02/19 History abemaciclib [Verzenio] 150 mg PO BID 02/02/19 02/02/19 History duloxetine [Cymbalta] 60 mg PO HS 02/02/19 02/02/19 History insulin regular hum U-500 conc 45 unit SUBCUT QNOON 02/02/19 02/02/19 History [Humulin R U-500 (Conc) Kwikpen] insulin regular hum U-500 conc 45 unit SUBCUT QPM 02/02/19 02/02/19 History [Humulin R U-500 (Conc) Kwikpen] insulin regular hum U-500 conc 85 unit SUBCUT QAM 02/02/19 02/02/19 History [Humulin R U-500 (Conc) Kwikpen] loratadine 10 mg PO DAILY 02/02/19 02/02/19 History omeprazole 40 mg PO DAILY 02/02/19 02/02/19 History Allergies Allergy/AdvReac Type Severity Reaction Status Date / Time bee venom protein (honey bee) Allergy Unknown Unverified 02/02/19 14:22 Latex, Natural Rubber AdvReac Intermediate Unverified 02/02/19 14:22 adhesive tape AdvReac Mild Unverified 02/02/19 14:22 Exam Narrative Exam Narrative: General: very pleasant obese female, somewhat forgetful, laying comfortably in bed, A&Ox3 Neuro: A&Ox3, no focal deficits Psych: appropriate speech pattern/content Skin: BLE chronic venous dermatitis with skin tearing - being dressed at the time of my exam HEENT: Atraumatic, normocephalic, EOMI, MMM, clear oropharynx, large neck katie meter, no submandibular or cervical lymphadenopathy, no goiter or JVD Heart: RRR, no m/r/g Lungs: CTAB GI: abdomen is obese, soft, nontender, nondistended Extremities: no e/c/c BLE's, skin changes as above, +1 pedal pulses B Results Labs Result diagrams: 02/02/19 12:58 02/02/19 12:58 Labs: Laboratory Results - last 24 hr 02/02/19 02/02/19 02/02/19 12:50 12:50 12:50 WBC 3.49 L RBC 3.53 L Hgb 10.9 L Hct 33.8 L MCV 95.8 H MCH 30.9 MCHC 32.2 RDW 15.6 H Plt Count 222 MPV 9.4 Immature Gran % 0.0 Neutrophils % 50.0 Band Neutrophils % Lymphocytes % 35.0 Atypical Lymphs % Monocytes % 9.2 Eosinophils % 5.2 Basophils % 0.6 Metamyelocytes % Myelocytes % Promyelocytes % Absolute Neutrophils 1.75 Absolute Lymphocytes 1.22 Absolute Monocytes 0.32 Absolute Eosinophils 0.18 Absolute Basophils 0.02 Nucleated RBCs Differential Comment Other Cell Type RBC Morphology Polychromasia Hypochromasia Poikilocytosis Basophilic Stippling Anisocytosis Microcytosis Macrocytosis Spherocytes Target Cells Tear Drop Cells Ovalocytes Stomatocytes [place] Bodies [place] Cells Acanthocytes (Spur) Schistocytes Sodium 139 Potassium 3.9 Chloride 102 Carbon Dioxide 29.5 Anion Gap 7.5 BUN 20 H Creatinine 1.25 H Estimated GFR/1.73 m2 43.87 Glucose 164 H Lactate 2.3 H* Calcium 9.0 Total Bilirubin 0.1 L AST 24 ALT 21 Alkaline Phosphatase 115 Troponin I Total Protein 8.0 Albumin 3.3 L Lipase 119 TSH Free T4 02/02/19 02/02/19 12:58 12:58 WBC Cancelled RBC Cancelled Hgb Cancelled Hct Cancelled MCV Cancelled MCH Cancelled MCHC Cancelled RDW Cancelled Plt Count Cancelled MPV Cancelled Immature Gran % Cancelled Neutrophils % Cancelled Band Neutrophils % Cancelled Lymphocytes % Cancelled Atypical Lymphs % Cancelled Monocytes % Cancelled Eosinophils % Cancelled Basophils % Cancelled Metamyelocytes % Cancelled Myelocytes % Cancelled Promyelocytes % Cancelled Absolute Neutrophils Cancelled Absolute Lymphocytes Cancelled Absolute Monocytes Cancelled Absolute Eosinophils Cancelled Absolute Basophils Cancelled Nucleated RBCs Cancelled Differential Comment Cancelled Other Cell Type Cancelled RBC Morphology Cancelled Polychromasia Cancelled Hypochromasia Cancelled Poikilocytosis Cancelled Basophilic Stippling Cancelled Anisocytosis Cancelled Microcytosis Cancelled Macrocytosis Cancelled Spherocytes Cancelled Target Cells Cancelled Tear Drop Cells Cancelled Ovalocytes Cancelled Stomatocytes Cancelled [place] Bodies Cancelled Yoselin Cells Cancelled Acanthocytes (Spur) Cancelled Schistocytes Cancelled Sodium Cancelled Potassium Cancelled Chloride Cancelled Carbon Dioxide Cancelled Anion Gap Cancelled BUN Cancelled Creatinine Cancelled Estimated GFR/1.73 m2 Cancelled Glucose Cancelled Lactate Calcium Cancelled Total Bilirubin Cancelled AST Cancelled ALT Cancelled Alkaline Phosphatase Cancelled Troponin I Cancelled Total Protein Cancelled Albumin Cancelled Lipase TSH Cancelled Free T4 Cancelled Last Vital Signs Temp 37.2 C 02/02/19 17:54 Pulse 92 H 02/02/19 17:54 Resp 22 02/02/19 17:54 BP 109/68 02/02/19 17:54 Pulse Ox 94 L 02/02/19 17:54
[2019-02-02] MEDS: Enoxaparin 40 MG/0.4 ML SYR SC (18:55)
[2019-02-02] MEDS: carBAMazepine 200 MG TAB PO (20:50)
[2019-02-02] MEDS: guaiFENesin 600 MG TABCR PO (20:51)
[2019-02-02] MEDS: Cholestyramine/Aspartame PKT 1 EACH PO (20:51)
[2019-02-02] MEDS: Pregabalin 100 MG CAP 200 MG PO (20:51)
[2019-02-02] MEDS: Ferrous Sulfate 325 MG TAB PO (20:51)
[2019-02-02] MEDS: Insulin Aspart 300 UNITS/3 ML PEN SC (21:52)
[2019-02-02] MEDS: DULoxetine 30 MG CAP 60 MG PO (21:53)
[2019-02-02] MEDS: Montelukast 10 MG TAB PO (21:53)
[2019-02-02] MEDS: Atorvastatin 20 MG TAB 40 MG PO (21:53)
[2019-02-02] MEDS: Budesonide/Formoterol 160/4.5 6 GM 60 PUFF INH IH (21:53)
[2019-02-03] VITALS (7 sets, daily range): BP systolic 108–168; BP diastolic 66–87; PULSE 82–92; RESP 16–20; TEMP 36.7–37.3; O2SAT 88–93
[2019-02-03] MEDS: metroNIDAZOLE 500 MG/100 ML BAG 100 MG IVPB ×2 (00:05→08:59)
[2019-02-03] MEDS: Acetaminophen 325 MG TAB PO (00:07)
[2019-02-03] MEDS: Normal Saline 1,000 ML 150 ML IV ×2 (02:41→12:44)
[2019-02-03] MEDS: Levothyroxine 150 MCG TAB PO (05:55)
[2019-02-03 06:45] LABS: Absolute Basophil Count 0.02 k/cumm (0.0-0.2); Absolute Eosinophil Count 0.17 k/cumm (0.0-0.7); Absolute Lymphocyte Count 1.47 k/cumm (1.2-3.4); Absolute Monocyte Count 0.16 k/cumm (0.11-0.7); Absolute Neutrophil Count 1.05 k/cumm (1.2-6.7); Basophils % 0.7; Eosinophils % 5.9; HCT 31.8 % (36.0-46.0); HGB 10.2 g/dL (12.0-15.5); Lymphocytes % 51.2; Mean Corp. HGB Concentration 32.1 g/dL (32.0-36.0); Mean Corpuscular Hemoglobin 30.5 pg (27.0-33.0); Mean Corpuscular Volume 95.2 fL (80-95); Monocytes % 5.6; Neutrophils % 36.6; Platelet Count 185 x1000/uL (130-400); RBC 3.34 m/cumm (4.00-5.20); RBC Distribution Width 15.8 % (11.7-14.6); White Blood Cell Count 2.87 k/cumm (4.4-10.8)
[2019-02-03 06:52] LABS: Anion Gap 8.5 mmol/L (3-11); BUN 17 mg/dL (7-18); CO2 26.5 mmol/L (21.0-32.0); CREATININE 1.14 mg/dL (0.55-1.02); Calcium 8.2 mg/dL (8.5-10.1); Chloride 104 mmol/L (98-107); Estimated GFR 48.79 (mL/min/1.73m2); Glucose 240 mg/dL (74-106); Magnesium 1.6 mg/dL (1.8-2.4); Potassium 3.8 mmol/L (3.5-5.1); Sodium 139 mmol/L (136-145)
[2019-02-03] MEDS: Budesonide/Formoterol 160/4.5 6 GM 60 PUFF INH IH ×2 (07:47→19:28)
[2019-02-03] MEDS: Tiotropium Bromide-Respimat 10 PUFF INH IH (07:58)
--- NOTE | 2019-02-03 08:19 | PDOC.CMIN ---
- If Service Date Differs Date of service: 02/03/19 Time of Service: 08:19 Care Management Initial Assess REASON FOR HOSPITALIZATION:: Recurrent coltits, cdiff. dehydrated PAST MEDICAL HISTORY/PAST SURGICAL HISTORY:: DM, breast CA with left mastectomy, right mastectomy planned for June 2018, COPD, hypothyroid, hypopituitary PREVIOUS FUNCTIONAL STATUS/SOCIAL/FAMILY SUPPORTS:: Candace lives at home with her daughter in [facility]. She is disabled. She has 2 daughters locally. She receives choices for care highest needs, and her daughter Kiki is her primary provider. She uses a walker for ambulation, in a wheeled walker for distance. She is dependent on her daughter for transportation to and from appointments. Her primary care is in [facility]. CURRENT FUNCTIONAL STATUS:: Candace is sitting up in the chair in her room she had just completed her lunch. Candace is engaged with CM during assessment. Candace states she relies on her daughter Kiki to review her medical informaiton.Candace states she was discharged from [facility] [place] [facility] two weeks ago she feels she was not cared for well there. She states this time she had her daughter bring her to [facility] instead of [facility]. Candace states she has been having several bowel movements a day. She has been feeling week at home, her daughter states she would like Candace to stay over the weekend if she remains acute. Candace declines any addtional services in the home she states her daughter takes good care of her and does not need services. CM reviewed this with Kiki over the phone and she agrees to no additional services. Candace's oncology providers are in [place], [place]. ADVANCE DIRECTIVES:: None on file, does not want to complete without her daughter present. Has patient been provided with information about the portal?: Yes Did the patient sign up for the portal?: No CODE STATUS:: Full Code INSURANCE COVERAGE / FINANCIAL ISSUES:: Medicaid, and Medicare CURRENT HOME/COMMUNITY SERVICES/EQUIPMENT:: Medicare, Medicaid, choices for care highest needs. PRIMARY CARE PHYSICIAN:: [facility] POTENTIAL DISCHARGE NEEDS:: Follow up appointment with primary care provider and ongoing follow up with Oncology. New Medications at time of discharge anticipated. PATIENT/FAMILY EDUCATION NEEDS:: Discharge education, limitations and follow up plan of care including ask me three and self management. Daughter should be present for education. ANTICIPATED BARRIERS TO DISCHARGE:: None TRANSPORTATION:: Via private car with daughter PLAN:: Candace will be discharged home when medically ready with her daughter. She is not interested in any additional services at this time. CM will continue to provide support and ongoing discharged planning.
[2019-02-03 08:38] LABS: Lactate 1.1 mmol/L (0.6-1.4)
[2019-02-03] MEDS: Ferrous Sulfate 325 MG TAB PO ×3 (09:00→19:29)
[2019-02-03] MEDS: Omeprazole 20 MG CAPCR 40 MG PO (09:00)
[2019-02-03] MEDS: guaiFENesin 600 MG TABCR PO ×2 (09:00→19:29)
[2019-02-03] MEDS: Loratidine 10 MG TAB PO (09:00)
[2019-02-03] MEDS: Hydrocortisone 10 MG TAB 20 MG PO (09:01)
[2019-02-03] MEDS: Aspirin E.C. 81 MG TABEC PO (09:01)
[2019-02-03] MEDS: Cyanocobalamin 500 MCG TAB 1000 MCG PO (09:01)
[2019-02-03] MEDS: Folic Acid 1 MG TAB PO (09:01)
[2019-02-03] MEDS: Pregabalin 100 MG CAP 200 MG PO ×3 (09:02→19:29)
[2019-02-03] MEDS: Insulin Aspart 300 UNITS/3 ML PEN SC ×2 (09:02→12:42)
[2019-02-03] MEDS: Cetirizine 10 MG TAB PO (09:02)
[2019-02-03] MEDS: carBAMazepine 200 MG TAB PO ×2 (09:02→19:29)
[2019-02-03] MEDS: Letrozole 2.5 MG TAB PO (09:02)
[2019-02-03] MEDS: MAGNESIUM SULFATE 2 GM/50 ML BAG IVPB (10:16)
[2019-02-03] MEDS: Cholestyramine/Aspartame PKT 1 EACH PO ×2 (10:39→19:29)
--- NOTE | 2019-02-03 11:18 | PT.INIE ---
Date of service: 02/03/19 Time of Service: 10:44 PT Notes Visit Reasons: RECURRENT COLITIS,SUSPECTED C.DIFF, DEHYDRATION Physical Therapy Inpatient Initial Evaluation Date: 02/03/2019 Referring Doctor: Sheyla Reno MD PT Orders: PT CONSULT: Limited ability Precautions: Fall. Enteric contact precautions. Activity as tolerated. Patient Profile/Admitting Diagnosis: Patient is a 58-year-old female with past medical history significant for breast carcinoma with metastases to the ymphatic system and bones. She presented to the ED on 02/02/2019 with chief complaints of nausea, vomiting, diarrhea, abdominal pain, and generalized weakness. Patient is diagnosed with recurrent C. difficile infection, dehydration, physical deconditioning, and chronic venous stasis dermatitis. PMHX: Medical History (Updated 02/02/19 @ 18:51 by Sheyla Reno MD) C. difficile diarrhea (Acute) Carpal tunnel syndrome (Acute) Chronic adrenal insufficiency (Acute) Chronic pain (Chronic) Chronic respiratory failure with hypoxia (Acute) Chronic venous stasis dermatitis (Acute) COPD (chronic obstructive pulmonary disease) (Chronic) On nocturnal oxygen - 2L prn Depression (Chronic) Diabetes mellitus (Chronic) Insulin dependent Diverticulosis (Acute) Dyslipidemia (Chronic) History of breast cancer (Chronic) metastatic, with lymphatic spread and bone mets Hyperlipidemia (Acute) Hypopituitarism (Chronic) Hypothyroidism (Chronic) Influenza B (Acute) Iron deficiency anemia (Acute) Obesity (Chronic) Obstructive sleep apnea (Chronic) per [facility] records Pneumonia (Acute) Restless leg syndrome (Acute) Spinal stenosis (Acute) Surgical History (Updated 02/02/19 @ 18:43 by Sheyla Reno MD) H/O bilateral mastectomy (Acute) H/O colonoscopy with polypectomy (Acute) History of carpal tunnel release of both wrists (Acute) Port-A-Cath in place (Acute) Status post transsphenoidal pituitary resection (Acute) Social History/Home Situation: Candace lives with her daughter in [place], [place] in a two-story house with a ramp to enter rails on both sides. Patient has stairs to the second floor of the house but has everything she needs on the first floor. She is disabled. She has 2 daughters locally. She receives choices for care highest needs, and her daughter Kiki is her primary provider for 12 years now. Kiki's provides assistance with bathing and does meal preapration and assistance with lower body dressing. She was independent with front-wheeled walker for in-house ambulation and uses the 4-wheeled walker for outdoor ambulation. She has to walk about 80-90 feet to get to her car. She is dependent on her daughter for transportation to and from appointments. Daughter also provides assistance with bathing patient's back due to body habitus. Equipment Owned/DME: bariatric FWW, bariatric hospital bed, bariatric recliner, bariatric front wheeled walker Subjective: Patient is seen resting in bed and is agreeable to a PT evaluation. She feels just a bit better compared to yesterday but feels tired and week. She reported pain on L knee with weight bearing. She also complained of pain in her low back during mobility assessment. Objective: General Observation: Patient is seen for this evaluation resting in bed IV in right UE. Hemosiderin staining observed in bilateral distal legs. Abdomen protuberant. Mental Status: Alert and oriented x3 Pain: Patient describes her usual pain as 4-5/10 ROM: Right Upper Extremity: Shoulder flexion 90-100 degrees. Elbow flexion WFL. Hands/wrsits and fingers WFL. Left Upper Extremity: Shoulder flexion 90-100 degrees. Elbow flexion WFL. Hands/wrsits and fingers WFL. Right Lower Extremity: Patient is able to bend hip to about 10 degrees beyond 90 whiel seated at edge of bed. She is able to perform straight leg raise to approximately 20-25 degrees. Kne flexion WFL. Dorsiflexion/plantarflexion WFL. Left Lower Extremity: Patient is able to bend hip to about 10 degrees beyond 90 whiel seated at edge of bed. She is able to perform straight leg raise to approximately 20-25 degrees. Kne flexion WFL. Dorsiflexion/plantarflexion WFL. Strength: Right Upper Extremity: Shoulder flexion 3-/5. Elbow flexion 4/5. Auto Clocks Repairer strong and functional Left Upper Extremity: Shoulder flexion 3-/5. Elbow flexion 4/5. Auto Clocks Repairer strong and functional. Right Lower Extremity: Hip flexion 3-/5. Hip extension 3/5. Knee flexion 4-/5. Knee extension 3+/5. Ankle dorsiflexion/plantarflexion 4/5. Left Lower Extremity: Hip flexion 3-/5. Hip extension 3/5. Knee flexion 4-/5. Knee extension 3+/5. Ankle dorsiflexion/plantarflexion 4/5. Bed Mobility/Transfers: Supine to sit: Supervision Sit to supine: Supervision Sit to stand: Supervision Stand to sit:Supervision Bed to chair: Supervision Chair to bed: Supervision Gait: Patient only able to do short distance ambulation of 8 feet to transfer from bedside to recliner chair with FWW requiring only SBA with verbal cues needed for walker management and safety. Decreased step height and length. Reported pain on L knee with weight bearing. Balance: Static Sitting: Normal Dynamic Sitting: Normal Static Standing: Fair Dynamic Standing: Fair Special Tests: Mobility Limitations Standardized Measure [facility] AM-PAC 6 clicks Basic Mobility Inpatient Short Form: Raw Score: 22 CMS Score: 21% deficit Informed Consent/Education: Patient instructed in purpose of PT consult and plan of care. Assessment: Patient is a 58-year-old female with past medical history significant for breast carcinoma with metastases to the ymphatic system and bones. She presented to the ED on 02/02/2019 with chief complaints of nausea, vomiting, diarrhea, abdominal pain, and generalized weakness. Patient is diagnosed with recurrent C. difficile infection, dehydration, physical deconditioning, and chronic venous stasis dermatitis which have contributed to the impairments and functional limitations listed below. Her daughter is her 23/09 caregiver. Her prognosis for regaining prior level of function is fair to good. Patient does have chronic functional mobility deficits and has a daughter for her longtime caregiver. PT goals will be aimed at addressing the following impairment level findings: 1. Decreased range of motion for hip and knee bilaterally 2. Impaired strength to BLE 3. Impaired activity tolerance 4. Decreased balance skills Impairments are contributing to the following functional limitations: 1. Reduced transfer skills 2. Increased risk for falls due to balance impairments 3. Limited ambulation distance Patient is assessed as a Moderate 08508 complexity based on the following: History: Increased dependence with mobility ADL performance due to acute medical issues related to influenza and pneumonia. Patient has been receiving mobility assistance for over 10 years now with a daughter Kiki as a primary caregiver. Full medical history can be found as noted above. Examination: Functional limitations as noted above Presentation: Evolving Decision Making: Moderate complexity 27910 Goals: Goals X1 week 1. Supine-Sit independent 2. Sit-Supine independent 3. Sit-Stand independent 4. Stand-Sit independent 5. Bed-Chair supervision 6. Chair-Bed supervision 7. Gait indoor and outdoor ambulation using FWW for at least 100 feet 8. Independent with home exercise program 9. Balance good Plan of Care/Treatment Plan: 1-2x/day, 7 days/week x 1 week. Plan of care has been reviewed with the ENTRY LEVEL MECHANICAL ENGINEER providing the service under Physical Therapy direction. Initiate Physical Therapy intervention for strengthening, bed mobility, transfers, gait, stairs, balance training, use of assistive device, HEP education/training. DISCHARGE RECOMMENDATIONS: Patient will benefit from home health PT services in order to progress mobility level using four-wheeled walker, assess home safety, identify additional equipment needs, and establish a functional maintenance program that will increase ability of patient to remain at home with daughter. TREATMENT CODE/TIME: 56741 x 26 minutes beginning at 10:44 AM. Thank you for this referral. Allie Miguel, PT, DPT, CLT [facility]
[2019-02-03] MEDS: Hydrocortisone 10 MG TAB 5 MG PO (12:45)
--- NOTE | 2019-02-03 14:31 | CHAPLAIN ---
Candace was sitting up in a chair when I visited. She told me about breast cancer with metastases and has had a tumor removed from her frontal lobe and has had both breasts removed. She said he cancer has now been found in lymph node under her arm and in her tailbone. Her daughter Kiki takes care of her. Candace said she takes chemo pills, and that she will not have radiation. They are not going to burn me, she said. Candace said she has been motivated to get through all this because of her daughters and her grandchildren. 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 Candace is [employer], but believes people don't have to be in temple to connect to God. She talked about times at her home that was remotely located, and sitting on the porch with a cup of coffee and having a garcia come visit her each morning. That experience brought her a great deal of comfort and peace, she said.
--- NOTE | 2019-02-03 14:40 | PGE_ITS ---
Date of Service Date of service: 02/03/19 Time of Service: 14:45 Assessment and Plan Assessment and plan (1) Recurrent Clostridium difficile diarrhea: Status: Acute Assessment and plan: Improved. D/c IV flagyl - transition to PO. Continue PO vanco. D/c IVF. Continue questran and probiotics. Hold verzenio. . (2) Diabetes mellitus: Status: Chronic Assessment and plan: Continue home regimen with addition of a resistant SSI. Hold trulicity. (3) Hypopituitarism: Status: Chronic Assessment and plan: No evidence of acute adrenal insufficiency at this time - but low threshold to give stress dose steroids. Will monitor. (4) History of breast cancer: Status: Chronic Assessment and plan: Continue letrozole; hold Verzenio in setting of acute illness. (5) Dehydration: Status: Resolved Assessment and plan: d/c IVF (6) Physical deconditioning: Status: Acute Assessment and plan: PT consult (7) Chronic venous stasis dermatitis: Status: Acute Assessment and plan: wound care consult (8) Discharge planning issues: Status: Acute Assessment and plan: Per my conversation with the patient, her code status is full. (9) DVT prophylaxis: Status: Acute Assessment and plan: lovenox sc Subjective Subjective Interval history since last seen: Ms Maria states she is feeling much better. No diarrhea since last night. Denies dizziness, chest pain, shortness of breath, nausea, vomiting. Exam Narrative Exam Narrative: General: very pleasant obese female, looks better, laying comfortably in bed, A&Ox3 HEENT: Atraumatic, normocephalic, EOMI, MMM Heart: RRR, no m/r/g Lungs: CTAB GI: abdomen is obese, soft, nontender, nondistended Extremities: no e/c/c BLE's, BLE's dressed, +1 pedal pulses B Objective Objective Clinical Data: Abnormal lab results 02/03/19 02/03/19 Range/Units 06:07 06:07 WBC 2.87 L (4.4-10.8) k/cumm RBC 3.34 L (4.00-5.20) m/cumm Hgb 10.2 L (12.0-15.5) g/dL Hct 31.8 L (36.0-46.0) % MCV 95.2 H (80-95) fL RDW 15.8 H (11.7-14.6) % Absolute Neutrophils 1.05 L (1.2-6.7) k/cumm Creatinine 1.14 H (0.55-1.02) mg/dL Glucose 240 H D (74-106) mg/dL Calcium 8.2 L (8.5-10.1) mg/dL Magnesium 1.6 L (1.8-2.4) mg/dL Vital Signs Temperature 37.1 C 02/03/19 07:40 Temperature Source Temporal Artery Scan 02/03/19 07:40 Pulse 86 02/03/19 07:40 Pulse Rhythm Regular 02/03/19 08:02 Respiratory Rate 16 02/03/19 07:40 Respiratory Effort Non-Labored 02/03/19 08:02 Respiratory Depth Normal 02/03/19 08:02 Respiratory Pattern Normal 02/03/19 08:02 Blood Pressure 168/87 H 02/03/19 07:40 Pulse Oximetry 92 L 02/03/19 07:48 Oxygen Delivery Method Room Air 02/03/19 07:48 Oxygen Flow Rate 0 02/03/19 07:48 Pain Level 0 02/03/19 07:40 Comment 02/03/19 07:40 Intake & Output 02/02/19 02/03/19 02/03/19 23:59 11:59 23:59 Intake Total 3220 / 3220 2099 / 2100 Output Total 900 / 900 300 / 300 Balance 2320 / 2320 1800 / 1800 Weight 155.582 kg 154.3 kg Intake: IV 2450 / 2450 2099 / 2099 Oral 770 / 770 Output: Urine 800 / 800 300 / 300 Stool 100 / 100 Other: Urine Color Yellow Yellow Urine Appearance Clear Clear Urine Odor None Normal Stool Size Copious Small Stool Characteristics Black Formed Voiding Methods Toilet Toilet Laboratory Results WBC 2.87 k/cumm (4.4-10.8) L 02/03/19 06:07 RBC 3.34 m/cumm (4.00-5.20) L 02/03/19 06:07 Hgb 10.2 g/dL (12.0-15.5) L 02/03/19 06:07 Hct 31.8 % (36.0-46.0) L 02/03/19 06:07 MCV 95.2 fL (80-95) H 02/03/19 06:07 MCH 30.5 pg (27.0-33.0) 02/03/19 06:07 MCHC 32.1 g/dL (32.0-36.0) 02/03/19 06:07 RDW 15.8 % (11.7-14.6) H 02/03/19 06:07 Plt Count 185 x1000/uL (130-400) 02/03/19 06:07 MPV 9.0 fL (8.0-11.0) 02/03/19 06:07 Immature Gran % 0.0 02/03/19 06:07 Neutrophils % 36.6 02/03/19 06:07 Band Neutrophils % Cancelled 02/02/19 12:58 Lymphocytes % 51.2 02/03/19 06:07 Atypical Lymphs % Cancelled 02/02/19 12:58 Monocytes % 5.6 02/03/19 06:07 Eosinophils % 5.9 02/03/19 06:07 Basophils % 0.7 02/03/19 06:07 Metamyelocytes % Cancelled 02/02/19 12:58 Myelocytes % Cancelled 02/02/19 12:58 Promyelocytes % Cancelled 02/02/19 12:58 Absolute Neutrophils 1.05 k/cumm (1.2-6.7) L 02/03/19 06:07 Absolute Lymphocytes 1.47 k/cumm (1.2-3.4) 02/03/19 06:07 Absolute Monocytes 0.16 k/cumm (0.11-0.7) 02/03/19 06:07 Absolute Eosinophils 0.17 k/cumm (0.0-0.7) 02/03/19 06:07 Absolute Basophils 0.02 k/cumm (0.0-0.2) 02/03/19 06:07 Nucleated RBCs Cancelled 02/02/19 12:58 Differential Comment Cancelled 02/02/19 12:58 Other Cell Type Cancelled 02/02/19 12:58 RBC Morphology Cancelled 02/02/19 12:58 Polychromasia Cancelled 02/02/19 12:58 Hypochromasia Cancelled 02/02/19 12:58 Poikilocytosis Cancelled 02/02/19 12:58 Basophilic Stippling Cancelled 02/02/19 12:58 Anisocytosis Cancelled 02/02/19 12:58 Microcytosis Cancelled 02/02/19 12:58 Macrocytosis Cancelled 02/02/19 12:58 Spherocytes Cancelled 02/02/19 12:58 Target Cells Cancelled 02/02/19 12:58 Tear Drop Cells Cancelled 02/02/19 12:58 Ovalocytes Cancelled 02/02/19 12:58 Stomatocytes Cancelled 02/02/19 12:58 Flores-Rutherford Bodies Cancelled 02/02/19 12:58 Marcellus Cells Cancelled 02/02/19 12:58 Acanthocytes (Spur) Cancelled 02/02/19 12:58 Schistocytes Cancelled 02/02/19 12:58 Sodium 139 mmol/L (136-145) 02/03/19 06:07 Potassium 3.8 mmol/L (3.5-5.1) 02/03/19 06:07 Chloride 104 mmol/L (98-107) 02/03/19 06:07 Carbon Dioxide 26.5 mmol/L (21.0-32.0) 02/03/19 06:07 Anion Gap 8.5 mmol/L (3-11) 02/03/19 06:07 BUN 17 mg/dL (7-18) 02/03/19 06:07 Creatinine 1.14 mg/dL (0.55-1.02) H 02/03/19 06:07 Estimated GFR/1.73 m2 48.79 (mL/min/1.73m2) 02/03/19 06:07 Glucose 240 mg/dL (74-106) H D 02/03/19 06:07 Lactate 1.1 mmol/L (0.6-1.4) 02/03/19 08:30 Calcium 8.2 mg/dL (8.5-10.1) L 02/03/19 06:07 Magnesium 1.6 mg/dL (1.8-2.4) L 02/03/19 06:07 Total Bilirubin Cancelled 02/02/19 12:58 AST Cancelled 02/02/19 12:58 ALT Cancelled 02/02/19 12:58 Alkaline Phosphatase Cancelled 02/02/19 12:58 Troponin I Cancelled 02/02/19 12:58 Total Protein Cancelled 02/02/19 12:58 Albumin Cancelled 02/02/19 12:58 Lipase 119 U/L (73-393) 02/02/19 12:50 TSH Cancelled 02/02/19 12:58 Free T4 Cancelled 02/02/19 12:58
--- NOTE | 2019-02-03 16:36 | PT.INTREAT ---
Date of service: 02/03/19 Time of Service: 13:16 PT Notes Visit Reasons: RECURRENT COLITIS,SUSPECTED C.DIFF, DEHYDRATION Inpatient Physical Therapy Treatment Note [facility] Date: PRECAUTIONS: Fall. Enteric contact precautions. Activity as tolerated. Morbidly obese. SUBJECTIVE: Patient reports being tired but is agreeable to a PT consult. OBJECTIVE: Patient seen sitting on toilet trying to do a bowel movement upon arrival of PT. Wound dressing to bilateral legs. PAIN: 2-3/10 BED MOBILITY/TRANSFERS Sit-supine: SBA Sit-stand: SBA Stand-sit: SBA Bed-Chair: SBA Chair-bed: SBA GAIT Assistive Device: Front-wheeled walker Weight bearing: Full weightbearing Assist: Distance: SBA 18 feet Deviation: Decreased step height. Decreased step length. Wide-based gait. Decrease gait velocity. THEREX: Seated level exercises consisting of ankle pumps, long arc quads, and seated hip flexion x10 reps with report of increasing fatigue right after activity. 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
[2019-02-03] MEDS: metroNIDAZOLE 500 MG TAB PO ×2 (17:32→21:52)
[2019-02-03] MEDS: Enoxaparin 40 MG/0.4 ML SYR SC (17:39)
--- NOTE | 2019-02-03 18:18 | WOUNDCARE ---
Wound Care Report : 02/03/19 Pt is a 58 year old female seen for bilateral lower leg wounds. Chart reviewed, including H&P, recent labs, and vital signs, and other providers? reports. Medical Hx and labs pertinent to wound healing: Patient has bilat mastectomies and per patient report has been told :about two months ago? that ?my cancer spread to my lymph nodes and my tailbone?. Wound Hx if applicable: Pt reports that these current wounds have been there for about two weeks, although she has had a history of ?ulcers on my legs?. Pt states her doctor told her ?to put Vaseline on them and cover them? which she has been doing at home. Pt reports that she has used ?the pink calamine? unna boots in the past. Wound Assessment Findings Right greco wound: Wound is irregularly round measuring 7.2 cm x 8.3 cm x approximately 0.2 cm in height. Wound is 90 percent hypergranulation tissue which is friable. Serous drainage noted on dressing, with bloody drainage when cleansed. Edges are adherent with islands of purplish skin on 10 percent of wound bed. Pt denies pain, no increased warmth on surrounding skin. Hemocederin staining noted on greco. L Lateral leg wounds: Upper wound measures 1.8 cm x 2.3 cm x less than 0.1 cm. Lower wound measures 1 cm x 1.2 cm x less than 0.1 cm. Both wounds have red non- granulating tissue in 100 percent of wound bed. Scant serous drainage noted. Surround wounds slightly pink with hemocederin staining noted on lower leg. Patients Mobility status- Patient spends much of her day in the chair, occasionally using walker to ambulate. Nutritional Status- nutrition consult recommended Circulatory status Patient has good pedal pulses, LUIS left 1.16, right 1.23. Pain Patient denies pain Recommendations: Right greco: Cleanse wound with normal saline, pat dry. Apply foam dressing. L Lateral lower leg- Cleanse with normal saline, pat dry. Apply calamine unna boots over bilateral lower legs. Please remove if pain or itching occurs Thank you for the consult.
[2019-02-03] MEDS: Heparin 500 UNITS/5 ML SYRINGE IVP (18:39)
[2019-02-03] MEDS: Montelukast 10 MG TAB PO (21:52)
[2019-02-03] MEDS: Atorvastatin 20 MG TAB 40 MG PO (21:53)
[2019-02-03] MEDS: DULoxetine 30 MG CAP 60 MG PO (21:53)
[2019-02-04 00:26] VITALS: BP 114/64; PULSE 80; RESP 20; TEMP 37; O2SAT 92
[2019-02-04 03:29] VITALS: BP 159/81; PULSE 75; RESP 20; TEMP 36.7; O2SAT 92
[2019-02-04] MEDS: metroNIDAZOLE 500 MG TAB PO (05:57)
[2019-02-04] MEDS: Levothyroxine 150 MCG TAB PO (05:57)
[2019-02-04 07:06] LABS: Absolute Basophil Count 0.01 k/cumm (0.0-0.2); Absolute Eosinophil Count 0.15 k/cumm (0.0-0.7); Absolute Lymphocyte Count 1.41 k/cumm (1.2-3.4); Absolute Monocyte Count 0.16 k/cumm (0.11-0.7); Absolute Neutrophil Count 1.23 k/cumm (1.2-6.7); Basophils % 0.3; Eosinophils % 5.1; HGB 10.5 g/dL (12.0-15.5); Lymphocytes % 47.6; Mean Corp. HGB Concentration 32.8 g/dL (32.0-36.0); Mean Corpuscular Hemoglobin 31.3 pg (27.0-33.0); Mean Corpuscular Volume 95.5 fL (80-95); Mean Platelet Volume 9.2 fL (8.0-11.0); Monocytes % 5.4; Neutrophils % 41.6; Platelet Count 177 x1000/uL (130-400); RBC 3.35 m/cumm (4.00-5.20); RBC Distribution Width 15.7 % (11.7-14.6); White Blood Cell Count 2.96 k/cumm (4.4-10.8)
[2019-02-04 07:14] LABS: Anion Gap 7.4 mmol/L (3-11); BUN 13 mg/dL (7-18); CO2 26.6 mmol/L (21.0-32.0); CREATININE 1.03 mg/dL (0.55-1.02); Calcium 8.9 mg/dL (8.5-10.1); Chloride 107 mmol/L (98-107); Estimated GFR 54.85 (mL/min/1.73m2); Glucose 132 mg/dL (74-106); Magnesium 2.1 mg/dL (1.8-2.4); Sodium 141 mmol/L (136-145)
[2019-02-04 07:24] VITALS: BP 139/79; PULSE 78; RESP 20; TEMP 36.7; O2SAT 93
[2019-02-04] MEDS: carBAMazepine 200 MG TAB PO (08:07)
[2019-02-04] MEDS: Pregabalin 100 MG CAP 200 MG PO (08:07)
[2019-02-04] MEDS: Folic Acid 1 MG TAB PO (08:07)
[2019-02-04] MEDS: guaiFENesin 600 MG TABCR PO (08:07)
[2019-02-04] MEDS: Omeprazole 20 MG CAPCR 40 MG PO (08:07)
[2019-02-04] MEDS: Cetirizine 10 MG TAB PO (08:08)
[2019-02-04] MEDS: Ferrous Sulfate 325 MG TAB PO (08:08)
[2019-02-04] MEDS: Letrozole 2.5 MG TAB PO (08:08)
[2019-02-04] MEDS: Aspirin E.C. 81 MG TABEC PO (08:08)
[2019-02-04] MEDS: Hydrocortisone 10 MG TAB 20 MG PO (08:08)
[2019-02-04] MEDS: Loratidine 10 MG TAB PO (08:09)
[2019-02-04] MEDS: Cyanocobalamin 500 MCG TAB 1000 MCG PO (08:09)
[2019-02-04] MEDS: Budesonide/Formoterol 160/4.5 6 GM 60 PUFF INH IH (08:33)
[2019-02-04] MEDS: Tiotropium Bromide-Respimat 10 PUFF INH IH (08:33)
[2019-02-04 08:46] LABS: C Difficile PCR Positive (Negative)
[2019-02-04] MEDS: Cholestyramine/Aspartame PKT 1 EACH PO (09:48)
[2019-02-04 11:10] VITALS: BP 141/75; PULSE 87; RESP 17; TEMP 36.6; O2SAT 93
--- NOTE | 2019-02-04 11:19 | DSE_ITS ---
Date of service: 02/04/19 Time of Service: 11:19 DS: Diagnosis Discharge Diagnosis (1) Recurrent Clostridium difficile diarrhea: Status: Acute (2) Diabetes mellitus: Status: Chronic (3) Hypopituitarism: Status: Chronic (4) Dehydration: Status: Resolved (5) Physical deconditioning: Status: Acute (6) Chronic venous stasis dermatitis: Status: Chronic (7) Venous stasis ulcer: Status: Acute Asessment and Plan: RLE (8) Metastatic breast cancer: Status: Acute (9) COPD (chronic obstructive pulmonary disease): Status: Chronic (10) Obstructive sleep apnea: Status: Chronic (11) Chronic respiratory failure with hypoxia: Status: Chronic Discharge Plan Disposition Patient Disposition: HOME W/HOME HEALTH SERVICE Condition: Stable Discharge Details Chief Complaint: Nausea/Vomit/Diar Clinical Impression: Recurrent Clostridium difficile diarrhea Reason For Visit: RECURRENT COLITIS,SUSPECTED C.DIFF, DEHYDRATION Admit Date/Time: 02/02/19 15:13 Admit Provider: Sheyla Reno Attending Provider: Sheyla Reno Primary Care Provider: Jan Coleman ED Provider: Gavi Cervantes Hospital Course Hospital Course: Ms Maynard is a 58 year old female with PMHx of metastatic breast cancer, on oral chemo with Verzenio as well as on lestrazole, post-surgical hypopituitarsim with chronic adrenal insufficiency, steroid dependent, IDDM2, chronic venous stasis, 2 prior bouts of C.Diff, who was admitted to [facility] 02/02/19 with recurrent C.Diff diarrhea causing dehydration and mild SIERRA. She was treated with IV metronidazole as well as PO vancomycin, started on probiotics with BioK and questran with significant improvement of symptoms and resolution of diarrhea within 24 hours. She was switched to PO metronidazole and continued on PO vancomycin at that point. She did not require stress dose steroids as she presented relatively early in her disease. She was hydrated intravenously with improvement of her kidney function. She was seen by wound care for her BLE venous stasis dermatitis - a wound present on admission on her RLE is thought to be a venous stasis ulcer, and foam dressing to wound as well as B calamine unna boots are recommended. The patient was evaluated by PT for her weakness on presentation - she would benefit from home health PT, but the patient perceives herself to be at her baseline on the day of discharge and refuses home health PT. She agrees to home health nursing services for wound care at least initially. The patient is medically stable for discharge home today with 12 more days of oral metronidazole and vancomycin, home health nursing. Care for patient and completion of her discharge paperwork took 45 minutes on the day of discharge. Home Meds and New Rx's Prescriptions: New Prevalite 4 gram Powder In Packet 4 g PO BID@1000,2000 PRN (Reason: prn diarrhea) Qty: 10 RF: 0 metronidazole 500 mg Tablet 500 mg PO Q8H Qty: 36 RF: 0 vancomycin 250 mg Capsule 250 mg PO Q6H Qty: 48 RF: 0 ranitidine HCl 300 mg capsule 300 mg PO QHS Qty: 30 RF: 0 Lactobacillus acidophilus Capsule 1,000 mmu cells PO DAILY Qty: 30 RF: 0 Continued pregabalin [Lyrica] 200 MG capsule 200 mg PO TID RF: 0 montelukast [Singulair] 10 MG tablet 10 mg PO DAILY RF: 0 cetirizine [Zyrtec] 10 MG tablet 10 mg PO DAILY RF: 0 ferrous sulfate 325 MG tablet 325 mg PO TID RF: 0 carbamazepine 200 MG tablet 200 mg PO BID RF: 0 atorvastatin [Lipitor] 20 MG tablet 40 mg PO HS RF: 0 cyanocobalamin (vitamin B-12) [Vitamin B-12] 1,000 MCG tablet 1,000 mcg PO DAILY RF: 0 aspirin [Aspir-81] 81 MG tablet,delayed release (DR/EC) 81 mg PO DAILY RF: 0 folic acid 1 MG tablet 1 mg PO DAILY RF: 0 duloxetine [Cymbalta] 60 MG capsule,delayed release(DR/EC) 60 mg PO HS RF: 0 Spiriva Respimat 4 GM mist 1 puff Inhalation DAILY RF: 0 Symbicort 10.2 GM HFA aerosol inhaler 2 puff Inhalation BID RF: 0 ondansetron HCl [Zofran] 8 MG tablet 8 mg PO TID PRNRF: 0 hydrocortisone 5 mg Tablet 5 mg PO QNOON RF: 0 levothyroxine 150 mcg Tablet 150 mcg PO DAILY RF: 0 hydrocortisone 10 mg Tablet 20 mg PO QAM RF: 0 Trulicity 1.5 mg/0.5 mL Pen Injector 1.5 mg SUBCUT QWEEK RF: 0 benzonatate 200 mg Capsule 200 mg PO TID PRN (Reason: cough) Qty: 15 RF: 0 guaifenesin [Mucinex] 600 mg Tablet Extended Release 12hr 600 mg PO BID Qty: 10 RF: 0 loratadine 10 mg Tablet 10 mg PO DAILY RF: 0 duloxetine [Cymbalta] 60 mg Capsule,Delayed Release(Dr/Ec) 60 mg PO HS RF: 0 Humulin R U-500 (Conc) Kwikpen 500 unit/mL (3 mL) Insulin Pen 85 unit SUBCUT QAM RF: 0 Humulin R U-500 (Conc) Kwikpen 500 unit/mL (3 mL) Insulin Pen 45 unit SUBCUT QNOON RF: 0 Humulin R U-500 (Conc) Kwikpen 500 unit/mL (3 mL) Insulin Pen 45 unit SUBCUT QPM RF: 0 letrozole 2.5 mg Tablet 2.5 mg PO DAILY RF: 0 Verzenio 150 mg Tablet 150 mg PO BID Qty: 0 RF: 0 Discontinued diphenoxylate-atropine [Lomotil] 1 TAB tablet 1 tab PO PRN PRNRF: 0 omeprazole 40 mg Capsule,Delayed Release(Dr/Ec) 40 mg PO DAILY RF: 0 Discharge Instructions Additional Instructions: Return to the hospital with any fever, bleeding, chest pain, shortness of breath, worsening diarrhea. Finish your antibiotics as prescribed. Home health wound care orders: RLE wound on tibial surface: cleanse with normal saline, pat dry. Apply foam dressing. LLE wounds: cleanse with normal saline, pat dry. Cover bilateral lower legs with calamine unna boots, change Q3 days and prn. Remove for pain or itching on legs. Care Plan Goals: Home with home health nursing for wound care. Stand Alone Forms: Nursing Discharge Form Referrals: Jan Coleman [Primary Care Provider] - Activity:: Activity as Tolerated Equipment/Supplies:: No Equipment Needed Diet:: Carb Counting Discharge Orders Discharge Orders: Discharge Order (Routine); Ordered 02/04/19 Ordered By: Sheyla Reno DS: Summary Status at Discharge Functional status at discharge: uses cane/walker Overall status at discharge: patient is back to baseline Mental Status: mental status grossly normal Speech and Movement: speech and movement normal Mood: congruent mood Affect: normal affect Exam Narrative Exam Narrative: General: very pleasant obese female, looks better, laying comfortably in bed, A&Ox3 HEENT: Atraumatic, normocephalic, EOMI, MMM Heart: RRR, no m/r/g Lungs: CTAB GI: abdomen is obese, soft, nontender, nondistended Extremities: BLE venous stasis dermatitis; venous stasis ulceration without evidence of infection on RLE, 2+ pedal pulses B Psych Mental Status: mental status grossly normal Speech and Movement: speech and movement normal Mood: congruent mood Affect: normal affect DS: Data Vitals/I&O Vitals and I&O: Vital Signs Temperature 36.7 C 02/04/19 07:24 Temperature Source Tympanic 02/04/19 07:24 Pulse 78 02/04/19 07:24 Pulse Rhythm Regular 02/04/19 00:05 Respiratory Rate 20 02/04/19 07:24 Respiratory Effort Non-Labored 02/04/19 00:05 Respiratory Depth Normal 02/04/19 00:05 Respiratory Pattern Normal 02/04/19 00:05 Blood Pressure 139/79 02/04/19 07:24 Pulse Oximetry 93 L 02/04/19 07:24 Oxygen Delivery Method Room Air 02/04/19 07:24 Oxygen Flow Rate 0 02/04/19 07:24 Pain Level 0 02/04/19 07:24 Comment 02/03/19 07:40 Intake & Output 02/03/19 02/03/19 02/04/19 11:59 23:59 11:59 Intake Total 2130 / 3132.95 1002.95 / 3132.95 240 / 240 Output Total 300 / 600 300 / 600 300 / 300 Balance 1830 / 2532.95 702.95 / 2532.95 -60 / -60 Weight 154.3 kg 155 kg Intake: IV 2130 / 2412.95 282.95 / 2412.95 Oral 720 / 720 240 / 240 Output: Urine 300 / 600 300 / 600 300 / 300 Other: Urine Color Yellow Yellow Yellow Urine Appearance Clear Clear Clear Urine Odor Normal Normal Normal Comment pt reports voided 2 or three times today. Not seen by this nurse. pt reports also that she has occasional incontinence Stool Size Small Large Stool Characteristics Formed Soft Brown Black Voiding Methods Toilet Toilet Toilet Diaper Incontinent Data Completed and Pending Labs on day of discharge: Labs from last 24 hours 12/07/1902/04/19 02/02/19 06:50 06:50 13:29 WBC 2.96 L RBC 3.35 L Hgb 10.5 L Hct 32.0 L MCV 95.5 H MCH 31.3 MCHC 32.8 RDW 15.7 H Plt Count 177 MPV 9.2 Immature Gran % 0.0 Neutrophils % 41.6 Lymphocytes % 47.6 Monocytes % 5.4 Eosinophils % 5.1 Basophils % 0.3 Absolute Neutrophils 1.23 Absolute Lymphocytes 1.41 Absolute Monocytes 0.16 Absolute Eosinophils 0.15 Absolute Basophils 0.01 Sodium 141 Potassium 4.0 Chloride 107 Carbon Dioxide 26.6 Anion Gap 7.4 BUN 13 Creatinine 1.03 H Estimated GFR/1.73 m2 54.85 Glucose 132 H D Calcium 8.9 Magnesium 2.1 Stl C.difficile Tox PCR Positive A Preliminary micro results at discharge 02/02/19 13:50 Blood Culture - Preliminary Blood NO GROWTH 24 HOURS 02/02/19 12:50 Blood Culture - Preliminary Blood NO GROWTH 24 HOURS [facility] Medical History (Updated 02/04/19 @ 11:24 by Sheyla Reno MD) C. difficile diarrhea (Acute) Carpal tunnel syndrome (Acute) Chronic adrenal insufficiency (Acute) Chronic pain (Chronic) Chronic respiratory failure with hypoxia (Chronic) Chronic venous stasis dermatitis (Chronic) COPD (chronic obstructive pulmonary disease) (Chronic) On nocturnal oxygen - 2L prn Depression (Chronic) Diabetes mellitus (Chronic) Insulin dependent Diverticulosis (Acute) Dyslipidemia (Chronic) History of breast cancer (Chronic) metastatic, with lymphatic spread and bone mets Hyperlipidemia (Acute) Hypopituitarism (Chronic) Hypothyroidism (Chronic) Influenza B (Acute) Iron deficiency anemia (Acute) Metastatic breast cancer (Acute) Obesity (Chronic) Obstructive sleep apnea (Chronic) per [facility] records Pneumonia (Acute) Restless leg syndrome (Acute) Spinal stenosis (Acute) Surgical History (Updated 02/02/19 @ 18:43 by Sheyla Reno MD) H/O bilateral mastectomy (Acute) H/O colonoscopy with polypectomy (Acute) History of carpal tunnel release of both wrists (Acute) Port-A-Cath in place (Acute) Status post transsphenoidal pituitary resection (Acute) Family History (Updated 02/02/19 @ 18:43 by Sheyla Reno MD) Father Prostate cancer Diabetes Social History (Updated 02/02/19 @ 18:44 by Sheyla Reno MD) Smoking/Tobacco Use Status: Former Tobacco Use Alcohol Intake: never Substance use type: does not use Do you feel safe at home: Yes Do you feel safe in your relationship?: Yes Additional Social history: , with 2 children. She is not working and on disability. Has a history of tobacco, quit in 1992. Reports rare use of alcohol only. Lives with daughter. Uses a walker to ambulate.
--- NOTE | 2019-02-04 11:44 | PDOC.HHF2F ---
Home Health Certification Home Health Certification: 1. Encounter Date and Reason I certify that LITO GONZALEZ was seen by Sheyla Reno on 02/04/19 and that I had a [id number] encounter with this patient that meets the physician face to face encounter requirements. 2. Clinical Findings Supporting Skilled Need and Homebound Status I certify that home health services are medically necessary, include either intermittent detention and/or physical/speech therapy, and that this patient is homebound in that absences from the home require considerable and taxing effort and are infrequent or of short duration, or are attributable to the need to receive medical care. [X] (a) Attached documentation from encounter provides clinical findings supporting skilled need and homebound status (including what assistance patient requires to leave the home). The encounter with the patient was in whole, or in part, for the following medical condition, which is the primary reason for home health care: RECURRENT COLITIS,SUSPECTED C.DIFF, DEHYDRATION Penitentiary: Wound care: RLE wound on tibial surface: cleanse with normal saline, pat dry. Apply foam dressing. LLE wounds: cleanse with normal saline, pat dry. Cover bilateral lower legs with calamine unna boots, change Q3 days and prn. Remove for pain or itching on legs. Homebound: unable to leave home without assistance 3. Certification and Authentication I certify that I composed the above information based on my clinical judgement relating to this patient's medical condition and, if applicable, clinical findings communicated to me by the NPP or inpatient physician who performed the Home Health Referral. All further orders will be obtained through __Dr Coleman (Community Based Physician - PCP)
[2019-02-04] MEDS: Insulin Aspart 300 UNITS/3 ML PEN SC (12:18)
[2019-02-04] MEDS: Hydrocortisone 10 MG TAB 5 MG PO (12:18)
--- NOTE | 2019-02-04 12:37 | PT.INTREAT ---
Date of service: 02/04/19 Time of Service: 12:37 PT Notes Visit Reasons: RECURRENT COLITIS,SUSPECTED C.DIFF, DEHYDRATION Inpatient Physical Therapy Treatment Note [facility] Date: 02/04/19 PRECAUTIONS: Fall, Contact SUBJECTIVE: Candace is agreeable to participating in PT. She states that she is feeling much better compared to several days ago. OBJECTIVE: PAIN: No c/o pain BED MOBILITY/TRANSFERS Supine-sit: I Sit-stand: S Stand-sit: S GAIT Assistive Device: FWW Weight bearing: Full Assist: SBA Distance: 10' + 80' Deviation: C/o L knee pain with gait training TOILETING: Patient toileted with assist for personal care ASSESSMENT: Patient tolerated session well with c/o L knee pain with gait training. She was able to tolerate a progression in gait distance with FWW support and SBA. PLAN: As per primary PT TREATMENT CODE/TIME: 25 minutes; 54891 x2
--- NOTE | 2019-02-04 17:26 | CMDISCH_ITS ---
- If Service Date Differs Date of service: 02/04/19 Time of Service: 17:26 LACE Index Scoring Tool - Questions: Length of Stay (in days): 3 Acuity (Admit via E.D.?): Yes Comorbidities: Diabetes w/o Complication, Chronic Pulmonary Disease E.D. Visits: 4 - Answers: Total Score: 13 Risk of Readmission: High Risk Care Management Discharge Reason for Hospitalization: Recurrent coltits, cdiff. dehydrated Discharge Plan: Candace is being discharged home with new home health services for nursing. CM contacted [facility] and faxed referral including the face to face. CM spoke with Rafaela in intake and provided warm handoff. Candace will be given four doses of vancomycin at time of discharge and CM confirmed with Oliver Vincent that all medications are covered and the Vancomycin will be ready on Friday. Candace will be transported home via private car with her daughter at time of discharge. CM contacted daughter and provided information over the phone. Patient/Family Education Needs: Discharge education, limitations and follow up plan of care including ask me three and self management. Services Needed at Discharge: Home Health Care Services
== END 2019-02-04 13:25 | disposition home health service (06) | DRG 372 ==
LOC: ER 15:26 → MS 17:28
PROVIDERS: Admitting Provider Internal Medicine; Emergency Provider Physician Assistant; PCP Family Medicine; Visit Provider Internal Medicine
DX: A04.71 Enterocolitis due to Clostridium difficile, recurrent (principal); E27.49 Other adrenocortical insufficiency; N17.9 Acute kidney failure, unspecified; Z68.43 Body mass index [BMI] 50.0-59.9, adult; E86.0 Dehydration; C50.919 Malignant neoplasm of unspecified site of unspecified female breast; Z79.899 Other long term (current) drug therapy; Z87.19 Personal history of other diseases of the digestive system; E89.3 Postprocedural hypopituitarism; Z79.52 Long term (current) use of systemic steroids; E11.9 Type 2 diabetes mellitus without complications; Z79.4 Long term (current) use of insulin; I87.2 Venous insufficiency (chronic) (peripheral); I87.8 Other specified disorders of veins; R53.1 Weakness; E03.9 Hypothyroidism, unspecified; E66.9 Obesity, unspecified; G25.81 Restless legs syndrome
CPT/HCPCS: 36415; 36591; 80048; 80053; 82962; 83690; 87040; 94640; 96361; 96365; 97110; 97530; 99223; 99232; 99239; 99285; J1650; 83605; 83735; 84439; 84443; 84484; 85025; 87324; 87798; 99284

== ENCOUNTER 2019-02-18 09:14 | Inpatient (IN) | payer MEDICARE, MEDICAID, SELFPAY ==
[2019-02-18] VITALS (44 sets, daily range): BP systolic 107–151; BP diastolic 49–93; PULSE 88–102; RESP 4–29; TEMP 36.6–37.7; O2SAT 83–100
--- NOTE | 2019-02-18 09:33 | ED.GENADUL_ITS ---
Discharge Plan Disposition Patient Disposition: [facility] INPATIENT Discharge Details Chief Complaint: GenMedical Clinical Impression: Acute UTI, Hyperglycemia, Weakness Admit Date/Time: 02/18/19 11:35 Admit Provider: Liv Gunn Attending Provider: Liv Gunn Primary Care Provider: Jan Coleman ED Provider: Trace Perez Discharge Data Discharge Date/Time-TO BE ENTERED AT DEPARTURE: 02/18/19 12:27 Medical Decision Making This is a chronically ill morbidly obese 58-year-old female who presents to the emergency department with constitutional symptoms of weakness and fatigue. She describes some right hip tenderness with which I was able to elicit with range of motion of the right hip. Vital signs demonstrate slight sinus tachycardia with a stable blood pressure. Physical exam is generally unremarkable. Her work-up thus far demonstrates elevated blood sugars in the 450 range. No DKA. Normal white blood cell count. Urine analysis significant for blood and white blood cells along with leuks and nitrates. Concern for urinary tract infection with her incomplete bladder emptying. She is at risk for opportunistic infections secondary to poorly controlled diabetes along with chemotherapy for metastatic CA. Discussed admission with hospitalist who is in alignment with this plan. Ceftriaxone 2 g IV given. ECG Data Interpretation: Sinus tachycardia. No ST changes. ECG reviewed by Dr. Chang HPI General Date/Time Provider Initiated Documentation: 02/18/19 09:21 . HPI Narrative: Patient is a 58-year-old female with a significant past medical history for recent C. difficile diarrhea on metronidazole status post hospitalization, morbid obesity, COPD, chronic venous stasis dermatitis, chronic adrenal insufficiency, history of metastatic breast cancer who presents to the emergency department with generalized fatigue and weakness. She states that her biggest complaint this time is right hip pain. She denies any nausea vomiting or diarrhea. She states that her C. difficile symptoms have completely resolved. She has had a cough with some yellow/green sputum production, however this is chronic for her. She denies any shortness of breath or chest pain. No abdominal pain. No rashes. She has had elevated sugars in the 360 range at home today. She did not take any insulin prior to arrival. She denies any dysuria or hematuria. Related Data Home Medications Medication Instructions Recorded Confirmed Spiriva Respimat 1 puff INHALATION DAILY 04/03/17 02/18/19 Symbicort 2 puff INHALATION BID 04/03/17 02/18/19 aspirin [Aspir-81] 81 mg PO DAILY 04/03/17 02/18/19 atorvastatin [Lipitor] 40 mg PO HS 04/03/17 02/18/19 carbamazepine 200 mg PO BID 04/03/17 02/18/19 cetirizine [Zyrtec] 10 mg PO DAILY 04/03/17 02/18/19 cyanocobalamin (vitamin B-12) 1,000 mcg PO DAILY 04/03/17 02/18/19 [Vitamin B-12] duloxetine [Cymbalta] 60 mg PO HS 04/03/17 02/18/19 ferrous sulfate 325 mg PO TID 04/03/17 02/18/19 folic acid 1 mg PO DAILY 04/03/17 02/18/19 montelukast [Singulair] 10 mg PO DAILY 04/03/17 02/18/19 ondansetron HCl [Zofran] 8 mg PO TID PRN 04/03/17 02/18/19 pregabalin [Lyrica] 200 mg PO TID 04/03/17 02/18/19 Trulicity 1.5 mg SUBCUT QWEEK 05/06/18 02/18/19 hydrocortisone 5 mg PO QNOON 05/06/18 02/18/19 hydrocortisone 20 mg PO QAM 05/06/18 02/18/19 levothyroxine 150 mcg PO DAILY 05/06/18 02/18/19 benzonatate 200 mg PO TID PRN #15 cap 05/10/18 02/18/19 guaifenesin [Mucinex] 600 mg PO BID #10 tab 05/10/18 02/18/19 Humulin R U-500 (Conc) Kwikpen 45 unit SUBCUT QNOON 02/02/19 02/18/19 Humulin R U-500 (Conc) Kwikpen 45 unit SUBCUT QPM 02/02/19 02/18/19 Humulin R U-500 (Conc) Kwikpen 85 unit SUBCUT QAM 02/02/19 02/18/19 duloxetine [Cymbalta] 60 mg PO HS 02/02/19 02/18/19 loratadine 10 mg PO DAILY 02/02/19 02/18/19 Lactobacillus acidophilus 1,000 mmu cells PO DAILY #30 cap 02/04/19 02/18/19 Verzenio 150 mg PO BID #0 tab 02/04/19 02/18/19 cholestyramine-aspartame 4 g PO BID@1000,2000 PRN #10 each 02/04/19 02/18/19 [Prevalite] letrozole 2.5 mg PO DAILY 02/04/19 02/18/19 metronidazole 500 mg PO Q8H #36 tab 02/04/19 02/18/19 ranitidine HCl 300 mg PO QHS #30 cap 02/04/19 02/18/19 vancomycin 250 mg PO Q6H #48 cap 02/04/19 02/18/19 Previous Rx's Medication Instructions Recorded benzonatate 200 mg PO TID PRN #15 cap 05/10/18 guaifenesin [Mucinex] 600 mg PO BID #10 tab 05/10/18 Lactobacillus acidophilus 1,000 mmu cells PO DAILY #30 cap 02/04/19 Verzenio 150 mg PO BID #0 tab 02/04/19 cholestyramine-aspartame 4 g PO BID@1000,2000 PRN #10 each 02/04/19 [Prevalite] metronidazole 500 mg PO Q8H #36 tab 02/04/19 ranitidine HCl 300 mg PO QHS #30 cap 02/04/19 vancomycin 250 mg PO Q6H #48 cap 02/04/19 Allergies Allergy/AdvReac Type Severity Reaction Status Date / Time bee venom protein (honey bee) Allergy Unknown Unverified 02/18/19 09:27 Latex, Natural Rubber AdvReac Intermediate Unverified 02/18/19 09:27 adhesive tape AdvReac Mild Unverified 02/18/19 09:27 General Stated Complaint: GenMedical CARMEN: 3 Review of Systems Constitutional Constitutional: Denies chills, Reports fatigue, Denies fever(s), Denies headache(s), Reports lethargy, Denies night sweats and Reports weakness Eyes Eyes: Denies floaters, Denies irritation and Denies photophobia ENT Ears, Nose, Mouth, and Throat: Denies dental pain, Denies dysphagia, Denies dizziness, Denies headache(s), Denies neck pain, Denies sinus pain, Denies sinus pressure, Denies sore throat and Denies throat swelling Cardiovascular Cardiovascular: Denies chest pain, Denies chest pain at rest, Reports edema, Denies claudication, Denies dyspnea, Reports dyspnea on exertion and Denies orthopnea Respiratory Respiratory: Denies dyspnea and Reports dyspnea on exertion Gastrointestinal Gastrointestinal: Denies abdominal pain, Denies dysphagia, Denies diarrhea, Denies nausea and Denies vomiting Genitourinary Genitourinary: Denies hematuria, Denies dysuria and Denies pelvic pain Musculoskeletal Musculoskeletal: Denies neck pain and Denies numbness Integumentary/Breasts Skin/Breast: Denies rash Neurologic Neurologic: Denies dizziness, Denies headache(s), Denies numbness and Reports weakness Endocrine Endocrine: Reports fatigue Hematologic/Lymphatic Hematologic/Lymphatic: Denies easy bleeding, Denies easy bruising and Denies lymphadenopathy Allergic/Immunologic Allergic/Immunologic: Denies throat swelling [facility] Medical History C. difficile diarrhea (Acute) Carpal tunnel syndrome (Acute) Chronic adrenal insufficiency (Acute) Chronic pain (Chronic) Chronic respiratory failure with hypoxia (Chronic) Chronic venous stasis dermatitis (Chronic) COPD (chronic obstructive pulmonary disease) (Chronic) On nocturnal oxygen - 2L prn Depression (Chronic) Diabetes mellitus (Chronic) Insulin dependent Diverticulosis (Acute) Dyslipidemia (Chronic) History of breast cancer (Chronic) metastatic, with lymphatic spread and bone mets Hyperlipidemia (Acute) Hypopituitarism (Chronic) Hypothyroidism (Chronic) Influenza B (Acute) Iron deficiency anemia (Acute) Metastatic breast cancer (Acute) Obesity (Chronic) Obstructive sleep apnea (Chronic) per [facility] records Pneumonia (Acute) Restless leg syndrome (Acute) Spinal stenosis (Acute) Surgical History H/O bilateral mastectomy (Acute) H/O colonoscopy with polypectomy (Acute) History of carpal tunnel release of both wrists (Acute) Port-A-Cath in place (Acute) Status post transsphenoidal pituitary resection (Acute) Family History Father Prostate cancer Diabetes Social History Smoking/Tobacco Use Status: Former Tobacco Use Alcohol Intake: never Substance use type: does not use Do you feel safe at home: Yes Do you feel safe in your relationship?: Yes Additional Social history: , with 2 children. She is not working and on disability. Has a history of tobacco, quit in 1992. Reports rare use of alcohol only. Lives with daughter. Uses a walker to ambulate. Exam Const General: cooperative Nutritional Appearance: obese morbidly obese Orientation: alert, awake and oriented x3 HENMT Head: normal to inspection, no palpable skull fracture, normocephalic and atraumatic Ears: hearing grossly normal bilaterally General nose exam: external nose normal Face and sinus: normal facial exam Mouth: oral mucosae normal Eyes General: appearance normal, both eyes and all related structures Pupils: PERRL EOM: EOM intact bilaterally Neck Neck: normal visual inspection and full ROM Chest Chest: normal inspection of the chest and normal palpation of entire chest wall Resp Effort & Inspection: normal respiratory effort and able to speak in complete sentences Auscultation: wheezes expiratory wheezes and upper bilaterally Cardio Rate: regular rate Rhythm: regular rhythm Pulses: normal peripheral pulses GI Inspection: normal to inspection Palpation: soft and nontender Skin Other: Brawny and edema 2+ involving the lower extremities extending from the mid calf to the ankle. Area is nontender. No evidence of secondary infection. Neuro General: alert, awake and oriented x3 Extrem Right lower extremity: normal to inspection and hip/thigh Details: normal to inspection, tenderness Location: of the hip and of the proximal upper leg and abnormal ROM Details: pain with passive ROM during Course Vital Signs Vital signs: Vital Signs Temperature 37 C 02/18/19 09:24 Pulse 95 H 02/18/19 09:24 Respiratory Rate 23 02/18/19 09:24 Blood Pressure 107/93 H 02/18/19 09:24 Pulse Oximetry 90 L 02/18/19 09:24 Temperature 37 C 02/18/19 09:24 Temperature Source Skin 02/18/19 09:24 Pulse 95 H 02/18/19 09:24 Respiratory Rate 23 02/18/19 09:24 Respiratory Effort Non-Labored 02/18/19 09:24 Blood Pressure 107/93 H 02/18/19 09:24 Blood Pressure Position Sitting 02/18/19 09:24 Pulse Oximetry 90 L 02/18/19 09:24 Oxygen Delivery Method Room Air 02/18/19 09:24 Oxygen Flow Rate 0 02/18/19 09:24 Pain Level 8 02/18/19 09:24
[2019-02-18] MEDS: Normal Saline-STERILE FIELD 0.9% 10 ML SYR (09:45)
[2019-02-18 09:52] LABS: Abs Immature Grans 0.02 k/cumm (0.0-0.09); Absolute Basophil Count 0.02 k/cumm (0.0-0.2); Absolute Eosinophil Count 0.01 k/cumm (0.0-0.7); Absolute Lymphocyte Count 1.09 k/cumm (1.2-3.4); Absolute Monocyte Count 0.77 k/cumm (0.11-0.7); Basophils % 0.2; Eosinophils % 0.1; HCT 32.8 % (36.0-46.0); HGB 10.5 g/dL (12.0-15.5); Immature Grans % 0.2; Lymphocytes % 12.5; Mean Corpuscular Hemoglobin 30.3 pg (27.0-33.0); Mean Corpuscular Volume 94.5 fL (80-95); Mean Platelet Volume 9.6 fL (8.0-11.0); Monocytes % 8.8; Neutrophils % 78.2; Platelet Count 244 x1000/uL (130-400); RBC 3.47 m/cumm (4.00-5.20); RBC Distribution Width 15.5 % (11.7-14.6); White Blood Cell Count 8.71 k/cumm (4.4-10.8)
[2019-02-18] MEDS: Normal Saline 1,000 ML 500 ML IV (09:57)
[2019-02-18] MEDS: Albuterol/Ipratropium 3 ML UPD VIAL UPD (10:04)
[2019-02-18 10:15] LABS: AST 19 U/L (15-37); Alkaline Phosphatase 104 U/L (46-116); Anion Gap 10.4 mmol/L (3-11); BUN 16 mg/dL (7-18); Bilirubin, Total 0.7 mg/dL (0.2-1.0); CO2 24.6 mmol/L (21.0-32.0); CREATININE 1.41 mg/dL (0.55-1.02); Calcium 8.4 mg/dL (8.5-10.1); Chloride 96 mmol/L (98-107); Estimated GFR 38.17 (mL/min/1.73m2); Glucose 448 mg/dL (74-106); Magnesium 1.7 mg/dL (1.8-2.4); Potassium 4.1 mmol/L (3.5-5.1); Sodium 131 mmol/L (136-145); Total Protein 7.9 g/dL (6.4-8.2)
[2019-02-18 10:19] LABS: ALT < 6 U/L (14-59); Troponin I < 0.05 ng/Ml (<0.06)
--- NOTE | 2019-02-18 10:50 | DI.RAD_ITS ---
EXAM: XR CHEST 2V PA LATERAL CLINICAL HISTORY: Generalized weakness, fatigue cough TECHNIQUE: COMPARISON: No exams were available for comparison FINDINGS: There is a right subclavian indwelling catheter tip of which overlies the superior vena cava. Cardia c size is mildly enlarged. Lungs are grossly clear. No pleural effusion seen. IMPRESSION: No evidence of acute process.
[2019-02-18 10:52] LABS: Bilirubin Negative (Negative); Blood Moderate (Negative); Clarity Cloudy (Clear); Glucose 500 mg/dL (Negative); Ketones 15 mg/dL (Negative); Leukocyte Esterase Small (Negative); Nitrite Positive (Negative); Specific Gravity 1.015 (1.005-1.025); Urobilinogen 0.2 EU/dL (Up TO 0.2); pH 5.5 (5-8)
[2019-02-18 11:09] LABS: Bacteria Many HPF (Negative); C & S Indicated? C&S Done As Ordered; Casts 0-2 Coarse Granular LPF (Negative); Crystals Negative HPF (Negative); Epithelial Cells Rare HPF (Negative); Mucus Negative (Negative); RBC >50 HPF (0-2); WBC >50 HPF (0-5)
--- NOTE | 2019-02-18 11:20 | DI.RAD_ITS ---
EXAM: XR HIP RT COMPLETE AP PELVIS CLINICAL HISTORY: Severe right hip pain. No trauma. History of CA TECHNIQUE: COMPARISON: No exams were available for comparison FINDINGS: Five views were obtained. There is suboptimal visualization the bones due to the patient's body habi tus. No gross fracture seen, no gross erosive or destructive process. There are osteophytes and sof t tissue calcifications associated with the greater trochanters of the femurs bilaterally. Clinical correlation requested regarding the possibility of trochanteric bursitis. IMPRESSION: No gross fracture or destructive lesion.
--- NOTE | 2019-02-18 11:37 | W.PM.HP.N ---
Date of service: 02/18/19 Time of Service: 11:37 Assessment and Plan Assessment and plan (1) Urinary tract infection: Status: Acute Assessment and plan: UA suggestive of UTI, this may explain lower abdominal pain as well. no prevoius cx date on file. will begin empiric ceftriaxone and follow cultures (2) SIERRA (acute kidney injury): Status: Acute Assessment and plan: likely secondary to UTI. she also appears to have some component of CKD with proteinuria in the setting of her DMII, her baseline cr seems to fluctuate from 1-1.4 (3) Hyperglycemia: Status: Acute Assessment and plan: in setting DMII and infection. she does not have an anion gap to suggest DKA, however she does have ketones in her urine, may be some component of starvation ketosis however she does not report significantly decreased PO intake (4) Adrenal insufficiency: Status: Acute Assessment and plan: continue hydrocortisone. she is HD stable and does not meet crtieria for sepsis, however would have low threshold to increase to stress dose steroids (5) Hyponatremia: Status: Acute Assessment and plan: pseudohyponatremia in setting hyperglycemia, corrected sodium is 139 (6) Recurrent Clostridium difficile diarrhea: Status: Acute Assessment and plan: today is last dose of vancomycin and metronidazole, treated in January for second episode of c. diff. she will be at risk for relapse with initiation of abx for UTI. will continu pro biotics. she may ultimately benefit from fecal transplant if infection recurs (7) Weakness: Status: Acute Assessment and plan: she has poor ambulatory status at baseline and was recommended for home PT which she declined last admission, acute exacerbation may be due to infection (8) Peripheral vascular disease: Status: Chronic Assessment and plan: with RLE wounds, cont wound care (9) History of breast cancer: Status: Chronic Assessment and plan: her verzenio has been held in the setting of infection, will cont letrazole (10) DVT prophylaxis: Status: Acute Assessment and plan: sub q lovenox 40mg daily- currently gfr is above 30 (11) Right hip pain: Status: Acute Assessment and plan: no acute abnormality on x-ray, she does have bilateral osteophytes, likely osteoarthitis, clinical picture not consistent with bursitis. will treat symptomatically with tylenol and lidocaine patch, will avoid NSAIDs in setting SIERRA History of Present Illness History of Present Illness Chief Complaint: weakness, lethargy Narrative: 58 y/o F with PMH morbid obestiy, metastatic breast cancer (with lymphatic spread and shauna metasasis or verzenia and letrozole), steroid dependent chronic adrenal insufficiency, postsurgical hypopitutarism , and recurrent c. diff who presents with weakness and R hip pain and lower abdominal pain. She denies fevers, chills, dysuria, hematuria, cough. Her diarrhea from her c. diff has resolved. She was admitted 02/02-02/04 with recurrent c/ diff and treated with metronidazole and PO vancomycin, with last dose of treatment today. She also had mild SIERRA during this admission which resolved with fluids. She also has RLE venous stasis ulcer which was evaluated by wound care and unna boots recommended Upon arrival to the ED today she was afebrile, slightly tachycardic with stable BP. SHe has no leukocytosis, however her WBC was 8 and baseline appears to be around 3-4 . Labs notable for glucose of 448, no elevation of anion gap and cr of 1.41. UA was suggestive of UTI. SHe was started on ceftriaxone and received 1L NS. CXR negative. hip x rays negative. patient ambulates with walker. lives with her daughter [facility] Medical History C. difficile diarrhea (Acute) Carpal tunnel syndrome (Acute) Chronic adrenal insufficiency (Acute) Chronic pain (Chronic) Chronic respiratory failure with hypoxia (Chronic) Chronic venous stasis dermatitis (Chronic) COPD (chronic obstructive pulmonary disease) (Chronic) On nocturnal oxygen - 2L prn Depression (Chronic) Diabetes mellitus (Chronic) Insulin dependent Diverticulosis (Acute) Dyslipidemia (Chronic) History of breast cancer (Chronic) metastatic, with lymphatic spread and bone mets Hyperlipidemia (Acute) Hypopituitarism (Chronic) Hypothyroidism (Chronic) Influenza B (Acute) Iron deficiency anemia (Acute) Metastatic breast cancer (Acute) Obesity (Chronic) Obstructive sleep apnea (Chronic) per [facility] records Pneumonia (Acute) Restless leg syndrome (Acute) Spinal stenosis (Acute) Surgical History H/O bilateral mastectomy (Acute) H/O colonoscopy with polypectomy (Acute) History of carpal tunnel release of both wrists (Acute) Port-A-Cath in place (Acute) Status post transsphenoidal pituitary resection (Acute) Family History Father Prostate cancer Diabetes Social History Smoking/Tobacco Use Status: Former Tobacco Use Alcohol Intake: never Substance use type: does not use Do you feel safe at home: Yes Do you feel safe in your relationship?: Yes Additional Social history: , with 2 children. She is not working and on disability. Has a history of tobacco, quit in 1992. Reports rare use of alcohol only. Lives with daughter. Uses a walker to ambulate. Meds Home Medications and Allergies Home Medications Medication Instructions Recorded Confirmed Type Spiriva Respimat 1 puff INHALATION DAILY 04/03/17 02/18/19 History Symbicort 2 puff INHALATION BID 04/03/17 02/18/19 History aspirin [Aspir-81] 81 mg PO DAILY 04/03/17 02/18/19 History atorvastatin [Lipitor] 40 mg PO HS 04/03/17 02/18/19 History carbamazepine 200 mg PO BID 04/03/17 02/18/19 History cetirizine [Zyrtec] 10 mg PO DAILY 04/03/17 02/18/19 History cyanocobalamin (vitamin B-12) 1,000 mcg PO DAILY 04/03/17 02/18/19 History [Vitamin B-12] duloxetine [Cymbalta] 60 mg PO HS 04/03/17 02/18/19 History ferrous sulfate 325 mg PO TID 04/03/17 02/18/19 History folic acid 1 mg PO DAILY 04/03/17 02/18/19 History montelukast [Singulair] 10 mg PO DAILY 04/03/17 02/18/19 History ondansetron HCl [Zofran] 8 mg PO TID PRN 04/03/17 02/18/19 History pregabalin [Lyrica] 200 mg PO TID 04/03/17 02/18/19 History Trulicity 1.5 mg SUBCUT QWEEK 05/06/18 02/18/19 History hydrocortisone 5 mg PO QNOON 05/06/18 02/18/19 History hydrocortisone 20 mg PO QAM 05/06/18 02/18/19 History levothyroxine 150 mcg PO DAILY 05/06/18 02/18/19 History benzonatate 200 mg PO TID PRN #15 cap 05/10/18 02/18/19 Rx guaifenesin [Mucinex] 600 mg PO BID #10 tab 05/10/18 02/18/19 Rx Humulin R U-500 (Conc) Kwikpen 45 unit SUBCUT QNOON 02/02/19 02/18/19 History Humulin R U-500 (Conc) Kwikpen 45 unit SUBCUT QPM 02/02/19 02/18/19 History Humulin R U-500 (Conc) Kwikpen 85 unit SUBCUT QAM 02/02/19 02/18/19 History duloxetine [Cymbalta] 60 mg PO HS 02/02/19 02/18/19 History loratadine 10 mg PO DAILY 02/02/19 02/18/19 History Lactobacillus acidophilus 1,000 mmu cells PO DAILY #30 cap 02/04/19 02/18/19 Rx Verzenio 150 mg PO BID #0 tab 02/04/19 02/18/19 Rx cholestyramine-aspartame 4 g PO BID@1000,2000 PRN #10 each 02/04/19 02/18/19 Rx [Prevalite] letrozole 2.5 mg PO DAILY 02/04/19 02/18/19 History metronidazole 500 mg PO Q8H #36 tab 02/04/19 02/18/19 Rx ranitidine HCl 300 mg PO QHS #30 cap 02/04/19 02/18/19 Rx vancomycin 250 mg PO Q6H #48 cap 02/04/19 02/18/19 Rx Allergies Allergy/AdvReac Type Severity Reaction Status Date / Time bee venom protein (honey bee) Allergy Unknown Unverified 02/18/19 09:27 Latex, Natural Rubber AdvReac Intermediate Unverified 02/18/19 09:27 adhesive tape AdvReac Mild Unverified 02/18/19 09:27 Exam Narrative Exam Narrative: GEN: morbidly obese, non toxic HEENT: NCAT, MMM CV: tachycardic, regular, normal s1 and s2 LUNGS: CTAB, no w/r/r ABD: obese, NABS, soft, NT, ND : no suprapubic tenderness, no cva tenderness EXT: severe chronic venous stasis changes, symmetrical, trace edema SKIN: R chest wall port CDI, mild skin breakdown over anterior right greco without drainage Results Labs Result diagrams: 02/18/19 09:45 02/18/19 09:45 Labs: Laboratory Results - last 24 hr 02/18/19 02/18/19 12 09:45 09:45 10:33 WBC 8.71 RBC 3.47 L Hgb 10.5 L Hct 32.8 L MCV 94.5 MCH 30.3 MCHC 32.0 RDW 15.5 H Plt Count 244 MPV 9.6 Immature Gran % 0.2 Neutrophils % 78.2 Lymphocytes % 12.5 Monocytes % 8.8 Eosinophils % 0.1 Basophils % 0.2 Absolute Neutrophils 6.80 H Absolute Lymphocytes 1.09 L Absolute Monocytes 0.77 H Absolute Eosinophils 0.01 Absolute Basophils 0.02 Sodium 131 L Potassium 4.1 Chloride 96 L Carbon Dioxide 24.6 Anion Gap 10.4 BUN 16 Creatinine 1.41 H Estimated GFR/1.73 m2 38.17 Glucose 448 H Calcium 8.4 L Magnesium 1.7 L Total Bilirubin 0.7 AST 19 ALT < 6 L Alkaline Phosphatase 104 Troponin I < 0.05 Total Protein 7.9 Albumin 3.0 L Urine Color Yellow Urine Clarity Cloudy Urine pH 5.5 Ur Specific [place] 1.015 Urine Protein 100 H Urine Ketones 15 H Urine Blood Moderate H Urine Nitrite Positive H Urine Bilirubin Negative Urine Urobilinogen 0.2 Ur Leukocyte Esterase Small H Urine RBC >50 H Urine WBC >50 H Ur Epithelial Cells Rare Urine Crystals Negative Urine Bacteria Many Urine Casts 0-2 coarse granular Urine Mucus Negative Ur Culture Indicated? C&s done as ordered Urine Glucose 500 H Last Vital Signs Temp 37.5 C 02/18/19 11:20 Pulse 100 H 02/18/19 11:22 Resp 26 H 02/18/19 11:22 BP 137/72 02/18/19 11:22 Pulse Ox 92 L 02/18/19 11:22
[2019-02-18] MEDS: cefTRIAXone 2 GM/50 ML BAG IVPB (11:40)
[2019-02-18] MEDS: Ferrous Sulfate 325 MG TAB PO ×2 (13:49→20:21)
[2019-02-18] MEDS: Enoxaparin 40 MG/0.4 ML SYR SC (13:49)
[2019-02-18] MEDS: metroNIDAZOLE 500 MG TAB PO (14:35)
[2019-02-18] MEDS: Insulin Aspart 300 UNITS/3 ML PEN SC (16:46)
[2019-02-18] MEDS: Lidocaine 5% Patch 1 PATCH TP (17:30)
[2019-02-18] MEDS: carBAMazepine 200 MG TAB PO (20:21)
[2019-02-18] MEDS: Pregabalin 100 MG CAP 200 MG PO (20:21)
[2019-02-18] MEDS: Budesonide/Formoterol 160/4.5 6 GM 60 PUFF INH IH (20:23)
[2019-02-18] MEDS: Acetaminophen 500 MG TAB 1000 MG PO (21:35)
[2019-02-18] MEDS: Atorvastatin 20 MG TAB 40 MG PO (21:36)
[2019-02-18] MEDS: DULoxetine 30 MG CAP 60 MG PO (21:36)
[2019-02-19] VITALS (8 sets, daily range): BP systolic 113–127; BP diastolic 65–75; PULSE 85–98; RESP 18–20; TEMP 36.5–38.3; O2SAT 91–94
[2019-02-19] MEDS: Patch Removal 1 EACH TP (05:54)
[2019-02-19] MEDS: Levothyroxine 150 MCG TAB PO (07:05)
[2019-02-19 07:12] LABS: Abs Immature Grans 0.01 k/cumm (0.0-0.09); Absolute Basophil Count 0.01 k/cumm (0.0-0.2); Absolute Eosinophil Count 0.08 k/cumm (0.0-0.7); Absolute Lymphocyte Count 1.22 k/cumm (1.2-3.4); Absolute Monocyte Count 0.43 k/cumm (0.11-0.7); Basophils % 0.2; Eosinophils % 1.4; HCT 31.9 % (36.0-46.0); Immature Grans % 0.2; Mean Corp. HGB Concentration 31.3 g/dL (32.0-36.0); Mean Corpuscular Hemoglobin 29.9 pg (27.0-33.0); Mean Corpuscular Volume 95.2 fL (80-95); Mean Platelet Volume 9.9 fL (8.0-11.0); Monocytes % 7.4; Neutrophils % 69.8; Platelet Count 241 x1000/uL (130-400); RBC 3.35 m/cumm (4.00-5.20); RBC Distribution Width 15.5 % (11.7-14.6); White Blood Cell Count 5.82 k/cumm (4.4-10.8)
[2019-02-19 07:13] LABS: Absolute Neutrophil Count 4.06 k/cumm (1.2-6.7)
[2019-02-19 07:18] LABS: Anion Gap 9.8 mmol/L (3-11); BUN 13 mg/dL (7-18); CO2 27.2 mmol/L (21.0-32.0); CREATININE 1.21 mg/dL (0.55-1.02); Calcium 8.5 mg/dL (8.5-10.1); Chloride 101 mmol/L (98-107); Estimated GFR 45.54 (mL/min/1.73m2); Glucose 219 mg/dL (74-106); Potassium 3.9 mmol/L (3.5-5.1); Sodium 138 mmol/L (136-145)
[2019-02-19] MEDS: Budesonide/Formoterol 160/4.5 6 GM 60 PUFF INH IH ×2 (08:01→21:25)
[2019-02-19] MEDS: Tiotropium Bromide-Respimat 10 PUFF INH IH (08:01)
[2019-02-19] MEDS: Cetirizine 10 MG TAB PO (08:12)
[2019-02-19] MEDS: Pregabalin 100 MG CAP 200 MG PO ×3 (08:13→21:22)
[2019-02-19] MEDS: Hydrocortisone 10 MG TAB 20 MG PO (08:13)
[2019-02-19] MEDS: Aspirin E.C. 81 MG TABEC PO (08:14)
[2019-02-19] MEDS: Cyanocobalamin 500 MCG TAB 1000 MCG PO (08:14)
[2019-02-19] MEDS: Folic Acid 1 MG TAB PO (08:15)
[2019-02-19] MEDS: Montelukast 10 MG TAB PO (08:15)
[2019-02-19] MEDS: Letrozole 2.5 MG TAB PO (08:15)
[2019-02-19] MEDS: Lactobacillus Acidophilus CAP 1 CAP PO (08:15)
[2019-02-19] MEDS: carBAMazepine 200 MG TAB PO ×2 (08:15→21:23)
[2019-02-19] MEDS: Ferrous Sulfate 325 MG TAB PO ×3 (08:16→21:23)
[2019-02-19] MEDS: Loratidine 10 MG TAB PO (08:16)
[2019-02-19] MEDS: Insulin Aspart 300 UNITS/3 ML PEN SC ×2 (08:16→12:47)
[2019-02-19] MEDS: Hydrocortisone 10 MG TAB 5 MG PO (13:04)
[2019-02-19] MEDS: cefTRIAXone 2 GM/50 ML BAG IVPB (13:10)
--- NOTE | 2019-02-19 13:22 | W.NUTCONSULT ---
Date of service: 02/19/19 Time of Service: 13:22 Nutritional Consult ASSESSMENT: 58 year old female hospitalized for rehydration as with C. diff diarrhea s/p chemotherapy for metastatic breast CA. Also presented with hyponatremia, UTI, PVD, hyper glycemia. Nursing reports not taking her insulin and had blood sugar of 450 mg/dl in ER. Attempted to met with Candace today but she declined and wanted to rest. Following CHO diet with poor intake (approx. 25% of breakfast). BMI indicates class 3 obesity. At high nutritional risk in view of poor nutrition intake, high losses as with c. diff diarrhea and uncontrolled IDDM. Will attempt to visit with Candace when more receptive to receive nutrition information regarding nutrient/fluid needs and importance of including probiotics as with C. diff. Currently not meeting nutrient needs, fluid provided by IV hydration. Time Spent in Nutritional Counseling and Treatment: 0 time spent face to face
[2019-02-19] MEDS: Acetaminophen 500 MG TAB 1000 MG PO (13:24)
[2019-02-19] MEDS: Normal Saline Flush 10 ML SYR IVP ×2 (13:52→14:26)
[2019-02-19] MEDS: Enoxaparin 40 MG/0.4 ML SYR SC (14:27)
--- NOTE | 2019-02-19 15:04 | DM INPTCON_ITS ---
Date of service: 02/19/19 Time of Service: 15:05 Diabetes Inpatient Consult DESCRIPTION/ASSESSMENT: Appreciate diabetes consult for Candace Austin who is hospitalized with UTI and c. difficile. BMI 51 A1c not available; states she will be getting this when she goes to her PCP next week. Blood sugars here 327-400 yesterday down to 171=659 today taking her usual 85u U500 at breakfast; 45u U500 at lunch and supper in addition to resistant insulin correction. Candace states she knows what food to eat to manage her diabetes and states her daughter does most of the meal preparation; monitors her blood sugars 3 times a day. States she has had hypoglycemia in the 50s once recently. INTERVENTION: Candace declines invitation for intervention at this time. Her PCP is attentive to her diabetes and without A1c we have little insight into how alva barreto diabetes is managed as outpatient. PLAN: Will follow blood sugars and follow up as she desires Time Spent in Nutritional Counseling and Treatment: 10 minutes face to face
--- NOTE | 2019-02-19 16:09 | CHAPLAIN ---
Candace remembered that we'd met during a previous admission. She is hoping to discharged later today. She gave me updates on her daughters. She is a breast cancer patient and we had talked about who that has changed her life and perspective during her last admission.
--- NOTE | 2019-02-19 17:19 | PGE_ITS ---
Date of Service Date of service: 02/19/19 Time of Service: 17:19 Assessment and Plan Assessment and plan (1) Urinary tract infection: Status: Acute Assessment and plan: Complicated UTI and that she is having fevers now. The preliminary urine culture is showing greater than 100,000 gram-negative rods. Suspicious for E. coli. Further identification and sensitivities are pe nding. Continue on IV ceftriaxone. Blood cultures are pending. (2) Right hip pain: Status: Acute Assessment and plan: X-rays showed no evidence of a fracture. She might have a bursitis there. There is nothing on exam. She is not complaining of right hip pain today. (3) Peripheral vascular disease: Status: Chronic (4) Weakness: Status: Acute Assessment and plan: She is weak and deconditioned. We will ask physical therapy to work with her. (5) Adrenal insufficiency: Status: Acute Assessment and plan: She is on chronic steroids. Her blood pressures stable. (6) Metastatic breast cancer: Status: Acute Assessment and plan: On maintenance doses of the letrozole and biologic for her metastatic breast cancer. This is stable. (7) Venous stasis ulcer: Status: Acute Assessment and plan: The venous stasis ulcer is stable. She was supposed to start on [place] boots. (8) Discharge planning issues: Status: Acute Assessment and plan: She is a full code admitted to observation. If she remains afebrile and normal white count she could transition to an oral antibiotic. She was written for nitrofurantoin which would probably be a good choice for her. Subjective Subjective Interval history since last seen: Patient overall feels well. Denies any dysuria. She is not sure why her blood sugars were so difficult to control as she has been taking her insulin as prescribed. She describes several low blood sugars last week, blood sugar 48, blood sugar 57. She had to eat something to bring her sugar up. She just finished her vancomycin and metronidazole oral tablets to finish a 14- day course to treat her C. difficile. She was set up for discharge but spiked a fever to 38.4 and blood cultures were obtained. Her discharge is delayed. Exam Narrative Exam Narrative: On exam she is lying comfortably in bed. She is in good spirits, joking with the nurses. She has no respiratory difficulty at all. Her heart sounds are regular. Her lungs are clear on the right and left. Her abdomen is quite massively obese but overall nontender. Her lower extremities show fat replacement over the normal contours. She has bandlike venous stasis changes with hemosiderin deposits around both lower legs. She has a small venous stasis ulcer that is bandaged on the right lateral leg. Objective Objective Clinical Data: Abnormal lab results 02/19/19 02/19/19 Range/Units 06:08 06:08 RBC 3.35 L (4.00-5.20) m/cumm Hgb 10.0 L (12.0-15.5) g/dL Hct 31.9 L (36.0-46.0) % MCV 95.2 H (80-95) fL MCHC 31.3 L (32.0-36.0) g/dL RDW 15.5 H (11.7-14.6) % Creatinine 1.21 H (0.55-1.02) mg/dL Glucose 219 H D (74-106) mg/dL Vital Signs Temperature 37.2 C 02/19/19 15:35 Temperature Source Tympanic 02/19/19 15:35 Pulse 91 H 02/19/19 15:35 Pulse Rhythm Regular 02/19/19 10:30 Pulse 99 H 02/18/19 12:20 Respiratory Rate 18 02/19/19 15:35 Respiratory Effort Non-Labored 02/19/19 10:30 Respiratory Depth Shallow 02/19/19 10:30 Respiratory Pattern Normal 02/19/19 10:30 Blood Pressure 123/69 02/19/19 15:35 Blood Pressure Mean 84 02/18/19 12:16 Blood Pressure Position Sitting 02/18/19 09:24 Pulse Oximetry 91 L 02/19/19 15:35 Respiratory End-tidal CO2 33 02/18/19 12:20 Oxygen Delivery Method Room Air 02/19/19 15:35 Oxygen Flow Rate 0 02/19/19 15:35 Pain Level 0 02/19/19 15:35 Intake & Output 02/18/19 02/19/19 02/19/19 23:59 11:59 23:59 Intake Total 50 / 600 50 / 50 Balance 50 / 200 50 / 50 Weight 156.6 kg Intake: IV 50 / 600 50 / 50 Other: Urine Color Yellow Urine Appearance Clear Clear Urine Odor None Voiding Methods Diaper Incontinent Laboratory Results WBC 5.82 k/cumm (4.4-10.8) D 02/19/19 06:08 RBC 3.35 m/cumm (4.00-5.20) L 02/19/19 06:08 Hgb 10.0 g/dL (12.0-15.5) L 02/19/19 06:08 Hct 31.9 % (36.0-46.0) L 02/19/19 06:08 MCV 95.2 fL (80-95) H 02/19/19 06:08 MCH 29.9 pg (27.0-33.0) 02/19/19 06:08 MCHC 31.3 g/dL (32.0-36.0) L 02/19/19 06:08 RDW 15.5 % (11.7-14.6) H 02/19/19 06:08 Plt Count 241 x1000/uL (130-400) 02/19/19 06:08 MPV 9.9 fL (8.0-11.0) 02/19/19 06:08 Immature Gran % 0.2 02/19/19 06:08 Neutrophils % 69.8 02/19/19 06:08 Lymphocytes % 21.0 02/19/19 06:08 Monocytes % 7.4 02/19/19 06:08 Eosinophils % 1.4 02/19/19 06:08 Basophils % 0.2 02/19/19 06:08 Absolute Neutrophils 4.06 k/cumm (1.2-6.7) 02/19/19 06:08 Absolute Lymphocytes 1.22 k/cumm (1.2-3.4) 02/19/19 06:08 Absolute Monocytes 0.43 k/cumm (0.11-0.7) 02/19/19 06:08 Absolute Eosinophils 0.08 k/cumm (0.0-0.7) 02/19/19 06:08 Absolute Basophils 0.01 k/cumm (0.0-0.2) 02/19/19 06:08 Sodium 138 mmol/L (136-145) 02/19/19 06:08 Potassium 3.9 mmol/L (3.5-5.1) 02/19/19 06:08 Chloride 101 mmol/L (98-107) 02/19/19 06:08 Carbon Dioxide 27.2 mmol/L (21.0-32.0) 02/19/19 06:08 Anion Gap 9.8 mmol/L (3-11) 02/19/19 06:08 BUN 13 mg/dL (7-18) 02/19/19 06:08 Creatinine 1.21 mg/dL (0.55-1.02) H 02/19/19 06:08 Estimated GFR/1.73 m2 45.54 (mL/min/1.73m2) 02/19/19 06:08 Glucose 219 mg/dL (74-106) H D 02/19/19 06:08 Calcium 8.5 mg/dL (8.5-10.1) 02/19/19 06:08 Magnesium 1.7 mg/dL (1.8-2.4) L 02/18/19 09:45 Total Bilirubin 0.7 mg/dL (0.2-1.0) 02/18/19 09:45 AST 19 U/L (15-37) 02/18/19 09:45 ALT < 6 U/L (14-59) L 02/18/19 09:45 Alkaline Phosphatase 104 U/L (46-116) 02/18/19 09:45 Troponin I < 0.05 ng/Ml (<0.06) 02/18/19 09:45 Total Protein 7.9 g/dL (6.4-8.2) 02/18/19 09:45 Albumin 3.0 g/dL (3.4-5.0) L 02/18/19 09:45 Urine Color Yellow (Yellow) 02/18/19 10:33 Urine Clarity Cloudy (Clear) 02/18/19 10:33 Urine pH 5.5 (5-8) 02/18/19 10:33 Ur Specific [place] 1.015 (1.005-1.025) 02/18/19 10:33 Urine Protein 100 mg/dL (Negative) H 02/18/19 10:33 Urine Ketones 15 mg/dL (Negative) H 02/18/19 10:33 Urine Blood Moderate (Negative) H 02/18/19 10:33 Urine Nitrite Positive (Negative) H 02/18/19 10:33 Urine Bilirubin Negative (Negative) 02/18/19 10:33 Urine Urobilinogen 0.2 EU/dL (Up TO 0.2) 02/18/19 10:33 Ur Leukocyte Esterase Small (Negative) H 02/18/19 10:33 Urine RBC >50 HPF (0-2) H 02/18/19 10:33 Urine WBC >50 HPF (0-5) H 02/18/19 10:33 Ur Epithelial Cells Rare HPF (Negative) 02/18/19 10:33 Urine Crystals Negative HPF (Negative) 02/18/19 10:33 Urine Bacteria Many HPF (Negative) 02/18/19 10:33 Urine Casts 0-2 coarse granular LPF (Negative) 02/18/19 10:33 Urine Mucus Negative (Negative) 02/18/19 10:33 Ur Culture Indicated? C&s done as ordered 02/18/19 10:33 Urine Glucose 500 mg/dL (Negative) H 02/18/19 10:33
--- NOTE | 2019-02-19 18:12 | PDOC.CMIN ---
- If Service Date Differs Date of service: 02/19/19 Time of Service: 18:12 Care Management Initial Assess REASON FOR HOSPITALIZATION:: UTI PAST MEDICAL HISTORY/PAST SURGICAL HISTORY:: Medical History . C. difficile diarrhea (Acute). Carpal tunnel syndrome (Acute). Chronic adrenal insufficiency (Acute). Chronic pain (Chronic). Chronic respiratory failure with hypoxia (Chronic). Chronic venous stasis dermatitis (Chronic). COPD (chronic obstructive pulmonary disease) (Chronic). On nocturnal oxygen - 2L prn. Depression (Chronic). Diabetes mellitus (Chronic). Insulin dependent. Diverticulosis (Acute). Dyslipidemia (Chronic). History of breast cancer (Chronic). metastatic, with lymphatic spread and bone mets. Hyperlipidemia (Acute). Hypopituitarism (Chronic). Hypothyroidism (Chronic). Influenza B (Acute). Iron deficiency anemia (Acute). Metastatic breast cancer (Acute). Obesity (Chronic). Obstructive sleep apnea (Chronic). per [facility] records. Pneumonia (Acute). Restless leg syndrome (Acute). Spinal stenosis (Acute). Surgical History . H/O bilateral mastectomy (Acute). H/O colonoscopy with polypectomy (Acute). History of carpal tunnel release of both wrists (Acute). Port-A-Cath in place (Acute). Status post transsphenoidal pituitary resection (Acute) PREVIOUS FUNCTIONAL STATUS/SOCIAL/FAMILY SUPPORTS:: Candace lives at home with her daughter in [facility]. She is disabled. She has 2 daughters locally. She receives choices for care highest needs, and her daughter Kiki is her primary provider. She uses a walker for ambulation, in a wheeled walker for distance. She is dependent on her daughter for transportation to and from appointments. Her primary care is in [facility]. CURRENT FUNCTIONAL STATUS:: Candace was sitting up in bed when CM met with her. She was pleasant and cooperated fully with CM. Candace shared that she has been hospitalized twice before in the past couple of months with c. difficile and urinary tract infectioons. She received care at [facility] and most recently has been at [facility]. Candace stated that she does not care for the hospital in [place] but has had wonderful care at [facility]. She was scheduled for discharge today but spiked a fever so will remain until at least tomorrow. ADVANCE DIRECTIVES:: none on file Has patient been provided with information about the portal?: Yes Did the patient sign up for the portal?: No CODE STATUS:: Full Code INSURANCE COVERAGE / FINANCIAL ISSUES:: Medicare. Medicaid CURRENT HOME/COMMUNITY SERVICES/EQUIPMENT:: [facility] highest needs. Has a walker. Has HH nursing through [facility]. PRIMARY CARE PHYSICIAN:: [facility] POTENTIAL DISCHARGE NEEDS:: Follow up with PCP and resumption of nursing PATIENT/FAMILY EDUCATION NEEDS:: Discharge plan, limitations, follow up plan, Ask me Three. TRANSPORTATION:: via private care with daughter PLAN:: Candace will discharge home with a resumption of services through [facility]. She will transport with her daughter via private vehicle. Candace will follow up with her PCP and discharge plan of care. CM will continue to support patient, family and discharge planning needs. Readmission - Within the Past 30 Days Yes or No: Y - Date of First Admission Date of 1st Admission: 02/02/19 - Date of this Admission Date of Admission: 02/18/19 - Office Visit Since 1st Admission Have you seen your PCP in the office since discharge?: Yes - I. Interview patient and/or Family Difficulty reaching your doctor or getting an office appt?: No Have you had trouble purchasing/ or taking medication?: No Have you had trouble with getting meals at home?: No Did you feel ready for discharge when you left the last time: Yes Were services received that you thought were set up on disch: Yes What services were received?: VNA Did you call your physician beore you came to the ED?: No How do you think you became sick enough to come back?: It just happened - If the patient had a VNA ordered Did the patient have a VNA order?: Yes Did you call the VNA before you came?: No - If the patient had home care service Call them to discuss the patient's admission: not available on weekend - Ask the Care Team Members: What do you think caused the patient to be readmitted: she developed another UTI - ED visits How many ED visits in the past 12 months: 3 - Assessment for Readmission Summary of readmission circumstances, based upon interviews: Candace was readmitted because of weakness and hip pain. She did not have symptoms of a UTI however today she spiked a fever and her urine culture is growing >100,000 colonies of gram negative rods. Blood cultures were drawn at that time. Candace does not feel her 2 hospital stays were related.
[2019-02-19] MEDS: DULoxetine 30 MG CAP 60 MG PO (21:22)
[2019-02-19] MEDS: Atorvastatin 20 MG TAB 40 MG PO (21:23)
[2019-02-20] VITALS (9 sets, daily range): BP systolic 112–137; BP diastolic 68–76; PULSE 75–91; RESP 18–24; TEMP 36.3–37; O2SAT 86–94
[2019-02-20] MEDS: Acetaminophen 500 MG TAB 1000 MG PO (03:11)
[2019-02-20 06:43] LABS: Abs Immature Grans 0.02 k/cumm (0.0-0.09); Absolute Basophil Count 0.01 k/cumm (0.0-0.2); Absolute Eosinophil Count 0.15 k/cumm (0.0-0.7); Absolute Lymphocyte Count 1.29 k/cumm (1.2-3.4); Absolute Monocyte Count 0.45 k/cumm (0.11-0.7); Absolute Neutrophil Count 2.89 k/cumm (1.2-6.7); Basophils % 0.2; Eosinophils % 3.1; HCT 31.2 % (36.0-46.0); HGB 9.8 g/dL (12.0-15.5); Immature Grans % 0.4; Lymphocytes % 26.8; Mean Corp. HGB Concentration 31.4 g/dL (32.0-36.0); Mean Corpuscular Hemoglobin 29.9 pg (27.0-33.0); Mean Corpuscular Volume 95.1 fL (80-95); Mean Platelet Volume 9.8 fL (8.0-11.0); Monocytes % 9.4; Neutrophils % 60.1; Platelet Count 246 x1000/uL (130-400); RBC 3.28 m/cumm (4.00-5.20); White Blood Cell Count 4.81 k/cumm (4.4-10.8)
[2019-02-20 06:53] LABS: Anion Gap 9.3 mmol/L (3-11); BUN 14 mg/dL (7-18); CO2 27.7 mmol/L (21.0-32.0); CREATININE 0.97 mg/dL (0.55-1.02); Calcium 8.7 mg/dL (8.5-10.1); Chloride 102 mmol/L (98-107); Estimated GFR 58.78 (mL/min/1.73m2); Glucose 102 mg/dL (74-106); Potassium 3.7 mmol/L (3.5-5.1); Sodium 139 mmol/L (136-145)
[2019-02-20 07:00] LABS: Diff Comment RBC Morph Reviewed
[2019-02-20 07:01] LABS: Anisocytosis 1+; Polychromasia Present
[2019-02-20] MEDS: Levothyroxine 150 MCG TAB PO (07:15)
[2019-02-20] MEDS: Tiotropium Bromide-Respimat 10 PUFF INH IH (08:07)
[2019-02-20] MEDS: Budesonide/Formoterol 160/4.5 6 GM 60 PUFF INH IH ×2 (08:07→19:33)
[2019-02-20] MEDS: Aspirin E.C. 81 MG TABEC PO (08:31)
[2019-02-20] MEDS: Cetirizine 10 MG TAB PO (08:31)
[2019-02-20] MEDS: Letrozole 2.5 MG TAB PO (08:31)
[2019-02-20] MEDS: carBAMazepine 200 MG TAB PO ×2 (08:31→19:33)
[2019-02-20] MEDS: Ferrous Sulfate 325 MG TAB PO ×3 (08:32→19:33)
[2019-02-20] MEDS: Hydrocortisone 10 MG TAB 20 MG PO (08:32)
[2019-02-20] MEDS: Loratidine 10 MG TAB PO (08:32)
[2019-02-20] MEDS: Montelukast 10 MG TAB PO (08:32)
[2019-02-20] MEDS: Lactobacillus Acidophilus CAP 1 CAP PO (08:33)
[2019-02-20] MEDS: Pregabalin 100 MG CAP 200 MG PO ×3 (08:33→19:33)
[2019-02-20] MEDS: Cyanocobalamin 500 MCG TAB 1000 MCG PO (08:33)
[2019-02-20] MEDS: Folic Acid 1 MG TAB PO (08:33)
[2019-02-20] MEDS: cefTRIAXone 2 GM/50 ML BAG IVPB (12:01)
[2019-02-20] MEDS: Normal Saline Flush 10 ML SYR IVP ×3 (12:05→16:28)
[2019-02-20] MEDS: Insulin Aspart 300 UNITS/3 ML PEN SC ×2 (12:06→17:03)
[2019-02-20] MEDS: Hydrocortisone 10 MG TAB 5 MG PO (12:07)
[2019-02-20] MEDS: Ondansetron 4 MG/2 ML VIAL IVP (12:14)
--- NOTE | 2019-02-20 12:40 | PDOC.CMPRO ---
- If Service Date Differs Date of service: 02/20/19 Time of Service: 12:41 Care Management Progress Note S/O: Candace was sitting up in a chair during CM visit. She was smiling and stated that her UTI seemed better. When asked if she felt ready to go home, she answered not yet. She was not clear with CM why she did not feel ready, although this is her third hospitalization in the past couple of months. She did share with Dr. Reno that she had nausea and epigastric pressure. She will be changed from observation to inpatient and remain hospitalized. A: Candace is a 58 year old woman admitted on 02/18/19 with a urinary tract infection and hyperglycemia. P:Candace will discharge home with a resumption of services through [facility]. She will transport with her daughter via private vehicle. Candace will follow up with her PCP and discharge plan of care. CM will continue to support patient, family and discharge planning needs.
--- NOTE | 2019-02-20 12:57 | PGE_ITS ---
Date of Service Date of service: 02/20/19 Time of Service: 12:57 Assessment and Plan Assessment and plan (1) Urinary tract infection: Status: Acute Assessment and plan: Due to Citrobacter Freundii, present on admission. Blood cultures with no growth to date. Citrobacter is sensitive to ceftriaxone - day 3. Continue ceftriaxone. Consider imaging if fevers respike. (2) Right hip pain: Status: Acute Assessment and plan: X-rays showed no evidence of a fracture. ?bursitis - not complaining of pain today. (3) Peripheral vascular disease: Status: Chronic Assessment and plan: with venous insufficiency ulcer on RLE. Continue wound care. (4) Weakness: Status: Acute Assessment and plan: PT consulted. (5) Adrenal insufficiency: Status: Acute Assessment and plan: Continue current therapy (hydrocortisone). No indication for stress dose steroids at this time. (6) Metastatic breast cancer: Status: Acute Assessment and plan: On maintenance doses of the letrozole and biologic for her metastatic breast cancer. Follow up as outpatient (7) Venous stasis ulcer: Status: Acute Assessment and plan: The venous stasis ulcer is stable. Place a wound care consult. (8) Nausea: Status: Acute Assessment and plan: Possible side effect of anticancer meds; however, could also be due to constipation, gastritis, abx. Continue ranitidine; add prn reglan. (9) Discharge planning issues: Status: Acute Assessment and plan: Full code Admit to inpatient status (10) DVT prophylaxis: Status: Acute Assessment and plan: lovenox Subjective Subjective Interval history since last seen: Complains of not feeling well at all today - specifically, nausea and epigastric pressure. She says zofran usually helps her - but it has not so far today. This happens at home sometimes too - the patient believes that her cancer medications makes her feel like this sometimes. I offered her an alternative antiemetic and pain medication - she says she will try rest first and, if she does not feel better soon, then she will ask for the medications. She does not feel well enough to go home. Denies dizziness, chest pain, shortness of breath, dysuria. Exam Narrative Exam Narrative: General: Very pleasant middle-aged female who does not appear to be feeling well HEENT: EOMI, MMM Heart: RRR, no m/r/g Lungs: CTAB Abdomen: abdomen full, soft, minimally tender in epigastrium Extremities: BLE chronic venous stasis changes, mild woody edema, RLE wound dressed - c/d/i Objective Objective Clinical Data: Abnormal lab results 02/20/19 Range/Units 06:25 RBC 3.28 L (4.00-5.20) m/cumm Hgb 9.8 L (12.0-15.5) g/dL Hct 31.2 L (36.0-46.0) % MCV 95.1 H (80-95) fL MCHC 31.4 L (32.0-36.0) g/dL RDW 15.0 H (11.7-14.6) % Vital Signs Temperature 36.5 C 02/20/19 11:40 Temperature Source Tympanic 02/20/19 11:40 Pulse 83 02/20/19 11:40 Pulse Rhythm Regular 02/20/19 07:15 Pulse 99 H 02/18/19 12:20 Respiratory Rate 18 02/20/19 11:40 Respiratory Effort Non-Labored 02/20/19 07:15 Respiratory Depth Normal 02/20/19 07:15 Respiratory Pattern Normal 02/20/19 07:15 Blood Pressure 112/70 02/20/19 11:40 Blood Pressure Mean 84 02/18/19 12:16 Blood Pressure Position Sitting 02/18/19 09:24 Pulse Oximetry 92 L 02/20/19 11:40 Respiratory End-tidal CO2 33 02/18/19 12:20 Oxygen Delivery Method Room Air 02/20/19 11:40 Oxygen Flow Rate 0 02/20/19 11:40 Pain Level 0 02/20/19 11:40 Comment 02/19/19 19:02 Intake & Output 02/19/19 02/20/19 02/20/19 23:59 11:59 23:59 Intake Total 540 / 540 Output Total 300 / 300 Balance 540 / 540 -300 / -300 Intake: IV 50 / 50 Oral 490 / 490 Output: Urine 300 / 300 Other: Urine Color [place] Urine Appearance Clear Urine Odor None Comment pT was incontinent as well as using the commode. Voiding Methods Bedside Commode Diaper Incontinent Laboratory Results WBC 4.81 k/cumm (4.4-10.8) 02/20/19 06:25 RBC 3.28 m/cumm (4.00-5.20) L 02/20/19 06:25 Hgb 9.8 g/dL (12.0-15.5) L 02/20/19 06:25 Hct 31.2 % (36.0-46.0) L 02/20/19 06:25 MCV 95.1 fL (80-95) H 02/20/19 06:25 MCH 29.9 pg (27.0-33.0) 02/20/19 06:25 MCHC 31.4 g/dL (32.0-36.0) L 02/20/19 06:25 RDW 15.0 % (11.7-14.6) H 02/20/19 06:25 Plt Count 246 x1000/uL (130-400) 02/20/19 06:25 MPV 9.8 fL (8.0-11.0) 02/20/19 06:25 Immature Gran % 0.4 02/20/19 06:25 Neutrophils % 60.1 02/20/19 06:25 Lymphocytes % 26.8 02/20/19 06:25 Monocytes % 9.4 02/20/19 06:25 Eosinophils % 3.1 02/20/19 06:25 Basophils % 0.2 02/20/19 06:25 Absolute Neutrophils 2.89 k/cumm (1.2-6.7) 02/20/19 06:25 Absolute Lymphocytes 1.29 k/cumm (1.2-3.4) 02/20/19 06:25 Absolute Monocytes 0.45 k/cumm (0.11-0.7) 02/20/19 06:25 Absolute Eosinophils 0.15 k/cumm (0.0-0.7) 02/20/19 06:25 Absolute Basophils 0.01 k/cumm (0.0-0.2) 02/20/19 06:25 Differential Comment Rbc morph reviewed 02/20/19 06:25 RBC Morphology See below 02/20/19 06:25 Polychromasia Present 02/20/19 06:25 Anisocytosis 1+ 02/20/19 06:25 Sodium 139 mmol/L (136-145) 02/20/19 06:25 Potassium 3.7 mmol/L (3.5-5.1) 02/20/19 06:25 Chloride 102 mmol/L (98-107) 02/20/19 06:25 Carbon Dioxide 27.7 mmol/L (21.0-32.0) 02/20/19 06:25 Anion Gap 9.3 mmol/L (3-11) 02/20/19 06:25 BUN 14 mg/dL (7-18) 02/20/19 06:25 Creatinine 0.97 mg/dL (0.55-1.02) 02/20/19 06:25 Estimated GFR/1.73 m2 58.78 (mL/min/1.73m2) 02/20/19 06:25 Glucose 102 mg/dL (74-106) D 02/20/19 06:25 Calcium 8.7 mg/dL (8.5-10.1) 02/20/19 06:25 Magnesium 1.7 mg/dL (1.8-2.4) L 02/18/19 09:45 Total Bilirubin 0.7 mg/dL (0.2-1.0) 02/18/19 09:45 AST 19 U/L (15-37) 02/18/19 09:45 ALT < 6 U/L (14-59) L 02/18/19 09:45 Alkaline Phosphatase 104 U/L (46-116) 02/18/19 09:45 Troponin I < 0.05 ng/Ml (<0.06) 02/18/19 09:45 Total Protein 7.9 g/dL (6.4-8.2) 02/18/19 09:45 Albumin 3.0 g/dL (3.4-5.0) L 02/18/19 09:45 Urine Color Yellow (Yellow) 02/18/19 10:33 Urine Clarity Cloudy (Clear) 02/18/19 10:33 Urine pH 5.5 (5-8) 02/18/19 10:33 Ur Specific [place] 1.015 (1.005-1.025) 02/18/19 10:33 Urine Protein 100 mg/dL (Negative) H 02/18/19 10:33 Urine Ketones 15 mg/dL (Negative) H 02/18/19 10:33 Urine Blood Moderate (Negative) H 02/18/19 10:33 Urine Nitrite Positive (Negative) H 02/18/19 10:33 Urine Bilirubin Negative (Negative) 02/18/19 10:33 Urine Urobilinogen 0.2 EU/dL (Up TO 0.2) 02/18/19 10:33 Ur Leukocyte Esterase Small (Negative) H 02/18/19 10:33 Urine RBC >50 HPF (0-2) H 02/18/19 10:33 Urine WBC >50 HPF (0-5) H 02/18/19 10:33 Ur Epithelial Cells Rare HPF (Negative) 02/18/19 10:33 Urine Crystals Negative HPF (Negative) 02/18/19 10:33 Urine Bacteria Many HPF (Negative) 02/18/19 10:33 Urine Casts 0-2 coarse granular LPF (Negative) 02/18/19 10:33 Urine Mucus Negative (Negative) 02/18/19 10:33 Ur Culture Indicated? C&s done as ordered 02/18/19 10:33 Urine Glucose 500 mg/dL (Negative) H 02/18/19 10:33
[2019-02-20] MEDS: Enoxaparin 40 MG/0.4 ML SYR SC (14:37)
--- NOTE | 2019-02-20 14:37 | PHARADMIT ---
Admission Pharmacy Clinical Review UTI, hyperglycemia, C.diff Code Status Full Code Current Weight 156.6 kg Renally Cleared and Narrow Therapeutic Index Meds Crcl ~65.2 mL/min (greater if use adjusted body weight) current meds okay QTc Value / Action Taken QTc 456 BP Control, Fever BP 112/70 Tmax 38.3 yesterday afternoon Electrolytes reviewed within normal limits DVT Prophylaxis enoxaparin Opiate Usage / Scheduled Bowel Regimen Ordered no/prn Plt/SCr for Heparin / Enoxaparin plt 246 SCr 0.97 INR for Warfarin n/a H/H stable, WBC/Bands h/h 9.8/31.2 WBC 4.81 Antibiotic appropriateness ceftriaxone day 3 Cultures and Sensitivities blood cultures pending rapid flu negative urine growing Citrobacter freundii- sensitive to ceftriaxone Surgical ABX d/c within 24 hr n/a DM control / Insulin Dosing Bg 102 scheduled insulin regular and sliding scale aspart Heart Failure (Check EF%) (MCKENNA's, B-Block, Diuretics) none IV to PO Switch n/a Home Meds Reviewed -multiple anticholinergic meds increases risk of toxicity: tiotropium, cetirizine, loratadine -carbamazepine may decrease the serum concentration of verzenio/lead to decreased efficacy: avoid concomitant use -carbamazepine may increase the metabolism of atorvastatin and ondansetron: consider alternatives to avoid treatment failure -separate admin of levothyroxine from ferrous sulfate and prevalite -consider insulin dose reductions when using trulicity and insulin together (may enhance hypoglycemic effects) Home Meds Not Ordered guaifenesin, nitrofurantoin(has other abx ordered), prevalite, trulicity, verzenio Comments watch for change to po abx or discontinuation
[2019-02-20] MEDS: Metoclopramide 10 MG/2 ML VIAL IVP (16:27)
[2019-02-20] MEDS: Ondansetron 4 MG TAB 8 MG PO (17:17)
--- NOTE | 2019-02-20 17:46 | NUR.NOTE ---
Nursing Note: Patient rang and complained of feeling dizzy. Patient assisted back to bed. pt still dizzy lying in a semi-sitting position. Vital signs obtained see intervention. Patient states that it is not unusual for her to get dizzy just not this bad
[2019-02-20] MEDS: DULoxetine 30 MG CAP 60 MG PO (19:34)
[2019-02-20] MEDS: Atorvastatin 20 MG TAB 40 MG PO (19:34)
[2019-02-21 04:08] VITALS: BP 119/70; PULSE 80; RESP 18; TEMP 36.3; O2SAT 93
[2019-02-21] MEDS: Levothyroxine 150 MCG TAB PO (06:29)
[2019-02-21] MEDS: Patch Removal 1 EACH TP (06:29)
[2019-02-21 07:05] LABS: Abs Immature Grans 0.01 k/cumm (0.0-0.09); Absolute Basophil Count 0.02 k/cumm (0.0-0.2); Absolute Eosinophil Count 0.16 k/cumm (0.0-0.7); Absolute Lymphocyte Count 1.47 k/cumm (1.2-3.4); Absolute Monocyte Count 0.34 k/cumm (0.11-0.7); Absolute Neutrophil Count 2.19 k/cumm (1.2-6.7); Basophils % 0.5; Eosinophils % 3.8; HCT 30.9 % (36.0-46.0); HGB 9.7 g/dL (12.0-15.5); Immature Grans % 0.2; Lymphocytes % 35.1; Mean Corp. HGB Concentration 31.4 g/dL (32.0-36.0); Mean Corpuscular Hemoglobin 30.1 pg (27.0-33.0); Mean Platelet Volume 9.6 fL (8.0-11.0); Monocytes % 8.1; Neutrophils % 52.3; Platelet Count 273 x1000/uL (130-400); RBC 3.22 m/cumm (4.00-5.20); RBC Distribution Width 14.9 % (11.7-14.6); White Blood Cell Count 4.19 k/cumm (4.4-10.8)
[2019-02-21 07:12] LABS: Anion Gap 7.4 mmol/L (3-11); BUN 15 mg/dL (7-18); CO2 30.6 mmol/L (21.0-32.0); CREATININE 0.96 mg/dL (0.55-1.02); Calcium 8.7 mg/dL (8.5-10.1); Chloride 103 mmol/L (98-107); Estimated GFR 59.49 (mL/min/1.73m2); Glucose 107 mg/dL (74-106); Magnesium 2.2 mg/dL (1.8-2.4); Sodium 141 mmol/L (136-145)
[2019-02-21] MEDS: Tiotropium Bromide-Respimat 10 PUFF INH IH (07:39)
[2019-02-21] MEDS: Budesonide/Formoterol 160/4.5 6 GM 60 PUFF INH IH (07:39)
[2019-02-21 07:40] VITALS: BP 99/63; PULSE 75; RESP 19; TEMP 36; O2SAT 91
[2019-02-21] MEDS: Lactobacillus Acidophilus CAP 1 CAP PO (08:35)
[2019-02-21] MEDS: carBAMazepine 200 MG TAB PO (08:35)
[2019-02-21] MEDS: Hydrocortisone 10 MG TAB 20 MG PO (08:35)
[2019-02-21] MEDS: Cetirizine 10 MG TAB PO (08:35)
[2019-02-21] MEDS: Pregabalin 100 MG CAP 200 MG PO (08:35)
[2019-02-21] MEDS: Montelukast 10 MG TAB PO (08:35)
[2019-02-21] MEDS: Loratidine 10 MG TAB PO (08:35)
[2019-02-21] MEDS: Folic Acid 1 MG TAB PO (08:36)
[2019-02-21] MEDS: Ferrous Sulfate 325 MG TAB PO (08:36)
[2019-02-21] MEDS: Letrozole 2.5 MG TAB PO (08:36)
[2019-02-21] MEDS: Cyanocobalamin 500 MCG TAB 1000 MCG PO (08:36)
[2019-02-21] MEDS: Aspirin E.C. 81 MG TABEC PO (08:36)
[2019-02-21 08:43] VITALS: O2SAT 91
[2019-02-21] MEDS: Acetaminophen 500 MG TAB 1000 MG PO (09:01)
--- NOTE | 2019-02-21 10:31 | W.PM.DS.N ---
Date of service: 02/21/19 Time of Service: 10:31 DS: Diagnosis Discharge Diagnosis (1) Urinary tract infection: Start date: 02/21/19 Start time: 10:32 Status: Acute Asessment and Plan: Symptoms improving with ceftriaxone. Culture with Citrobacter Freundii, sensitive to ceftriaxone. Will send home with cefpodoxime po for a 7 day course of antibiotics, afebrile, no leukocytosis. (2) Right hip pain: Start date: 02/21/19 Start time: 10:38 Status: Acute Asessment and Plan: Likely brusitis, continue tylenol for pain. (3) Peripheral vascular disease: Status: Chronic (4) Weakness: Status: Acute (5) Adrenal insufficiency: Status: Acute (6) Metastatic breast cancer: Status: Acute (7) Venous stasis ulcer: Status: Acute (8) Nausea: Status: Acute (9) Discharge planning issues: Status: Acute (10) DVT prophylaxis: Status: Acute Discharge Plan Disposition Patient Disposition: HOME Condition: Improving Discharge Details Chief Complaint: GenMedical Clinical Impression: Acute UTI, Hyperglycemia, Weakness Reason For Visit: UTI, HYPERGLYCEMIA, C. DIFF Admit Date/Time: 02/20/19 13:15 Admit Provider: Liv Gunn Attending Provider: Liv Gunn Primary Care Provider: Jan Coleman ED Provider: Trace Perez Hospital Course Hospital Course: This is a 58-year-old woman recently recovering from C. difficile infection. She just finished a course of oral antibiotics in the last couple of days. She presented with weakness and lethargy. She was complaining of right hip pain and lower abdominal pain. She denied fever chills or dysuria. Evaluation here in the emergency room showed her to be afebrile without leukocytosis. The urinalysis showed nitrites and leukocytes. Preliminary culture shows greater than 100,000 gram-negative rods citro bacter freundii. She was empirically started on ceftriaxone and received IV fluids. Hip imaging revealing no acute abnormality. She was feeling nauseated yesterday and not ready for discharge. She does have episodes of dizziness, brought on by hypoxia requiring her to wear oxygen, this is not new and patient states happens mainly at night. Chronic wound to lower extremity improving. Continue current mepliex.Overnight she is feeling better. Her blood sugars which were in the 400s have come down to 100's. She is back on her usual insulin regimen. Plan is for discharge with further follow-up as an outpatient on cefpodoxime. She will resume home health services upon discharge. Home Meds and New Rx's Prescriptions: New cefpodoxime 100 mg tablet 100 mg PO BID Qty: 6 RF: 0 Continued pregabalin [Lyrica] 200 MG capsule 200 mg PO TID RF: 0 montelukast [Singulair] 10 MG tablet 10 mg PO DAILY RF: 0 cetirizine [Zyrtec] 10 MG tablet 10 mg PO DAILY RF: 0 ferrous sulfate 325 MG tablet 325 mg PO TID RF: 0 carbamazepine 200 MG tablet 200 mg PO BID RF: 0 atorvastatin [Lipitor] 20 MG tablet 40 mg PO HS RF: 0 cyanocobalamin (vitamin B-12) [Vitamin B-12] 1,000 MCG tablet 1,000 mcg PO DAILY RF: 0 aspirin [Aspir-81] 81 MG tablet,delayed release (DR/EC) 81 mg PO DAILY RF: 0 folic acid 1 MG tablet 1 mg PO DAILY RF: 0 duloxetine [Cymbalta] 60 MG capsule,delayed release(DR/EC) 60 mg PO HS RF: 0 Spiriva Respimat 4 GM mist 1 puff Inhalation DAILY RF: 0 Symbicort 10.2 GM HFA aerosol inhaler 2 puff Inhalation BID RF: 0 ondansetron HCl [Zofran] 8 MG tablet 8 mg PO TID PRNRF: 0 hydrocortisone 5 mg Tablet 5 mg PO QNOON RF: 0 levothyroxine 150 mcg Tablet 150 mcg PO DAILY RF: 0 hydrocortisone 10 mg Tablet 20 mg PO QAM RF: 0 Trulicity 1.5 mg/0.5 mL Pen Injector 1.5 mg SUBCUT QWEEK RF: 0 benzonatate 200 mg Capsule 200 mg PO TID PRN (Reason: cough) Qty: 15 RF: 0 guaifenesin [Mucinex] 600 mg Tablet Extended Release 12hr 600 mg PO BID Qty: 10 RF: 0 loratadine 10 mg Tablet 10 mg PO DAILY RF: 0 duloxetine [Cymbalta] 60 mg Capsule,Delayed Release(Dr/Ec) 60 mg PO HS RF: 0 Humulin R U-500 (Conc) Kwikpen 500 unit/mL (3 mL) Insulin Pen 85 unit SUBCUT QAM RF: 0 Humulin R U-500 (Conc) Kwikpen 500 unit/mL (3 mL) Insulin Pen 45 unit SUBCUT QNOON RF: 0 Humulin R U-500 (Conc) Kwikpen 500 unit/mL (3 mL) Insulin Pen 45 unit SUBCUT QPM RF: 0 letrozole 2.5 mg Tablet 2.5 mg PO DAILY RF: 0 Prevalite 4 gram Powder In Packet 4 g PO BID@1000,2000 PRN (Reason: prn diarrhea) Qty: 10 RF: 0 ranitidine HCl 300 mg capsule 300 mg PO QHS Qty: 30 RF: 0 Verzenio 150 mg Tablet 150 mg PO BID Qty: 0 RF: 0 Lactobacillus acidophilus Capsule 1,000 mmu cells PO DAILY Qty: 30 RF: 0 Discontinued metronidazole 500 mg Tablet 500 mg PO Q8H Qty: 36 RF: 0 vancomycin 250 mg Capsule 250 mg PO Q6H Qty: 48 RF: 0 Discharge Instructions Instructions: Urinary Tract Infection in Women (DC), Managing Diabetes During Sick Days (DC) Additional Instructions: Finish course of antibiotics, take a probiotic with and eat a daily yorgurt. Wear compression boots when not up and moving around. Follow up with PCP in 1 week. Stand Alone Forms: Nursing Discharge Form Referrals: MICHAEL OCHOA NP [NURSE PRACTITIONER] - 02/22/19 9:00 am Activity:: Activity as Tolerated Equipment/Supplies:: No Equipment Needed Diet:: Carb Counting Discharge Orders Discharge Orders: Discharge Order (Routine); Ordered 02/21/19 Ordered By: Ami Sanchez DS: Summary Status at Discharge Functional status at discharge: uses cane/walker Overall status at discharge: patient is progressing back to baseline Mental Status: mental status grossly normal Speech and Movement: speech and movement normal Mood: congruent mood Affect: normal affect Exam Narrative Exam Narrative: General: Very pleasant middle-aged female who appears to be feeling much better today HEENT: EOMI, MMM Heart: RRR, no m/r/g Lungs: CTAB Abdomen: abdomen full, soft, minimally tender in epigastrium Extremities: BLE chronic venous stasis changes, mild woody edema, RLE wound dressed - c/d/i Psych Mental Status: mental status grossly normal Speech and Movement: speech and movement normal Mood: congruent mood Affect: normal affect DS: Data Vitals/I&O Vitals and I&O: Vital Signs Temperature 36.0 C L 02/21/19 07:40 Temperature Source Temporal Artery Scan 02/21/19 07:40 Pulse 75 02/21/19 07:40 Pulse Rhythm Regular 02/21/19 08:44 Pulse 99 H 02/18/19 12:20 Respiratory Rate 19 02/21/19 07:40 Respiratory Effort Non-Labored 02/21/19 08:44 Respiratory Depth Normal 02/21/19 08:44 Respiratory Pattern Normal 02/21/19 08:44 Blood Pressure 99/63 L 02/21/19 07:40 Blood Pressure Mean 84 02/18/19 12:16 Blood Pressure Position Sitting 02/18/19 09:24 Pulse Oximetry 91 L 02/21/19 08:43 Respiratory End-tidal CO2 33 02/18/19 12:20 Oxygen Delivery Method Room Air 02/21/19 08:43 Oxygen Flow Rate 0 02/21/19 08:43 Pain Level 8 02/21/19 09:01 Comment 02/19/19 19:02 Intake & Output 02/20/19 02/20/19 02/21/19 11:59 23:59 11:59 Intake Total 240 / 540 300 / 540 760 / 760 Output Total 300 / 550 250 / 550 Balance -60 / -10 50 / -10 760 / 760 Intake: IV 60 / 60 Oral 240 / 480 240 / 480 760 / 760 Output: Urine 300 / 550 250 / 550 Other: Urine Color [place] Yellow Yellow Urine Appearance Clear Clear Clear Urine Odor None Strong Comment pT was incontinent as well as using the commode. pt was also incontinent of a large amount of urine Stool Size Small Moderate Stool Characteristics Soft Formed Formed Black Black Voiding Methods Bedside Commode Bedside Commode Diaper Diaper Incontinent Incontinent Data Completed and Pending Completed studies during hospitalization [Text1]: a RAD:XR chest 2V PA & lateral EXAM: XR CHEST 2V PA LATERAL CLINICAL HISTORY: Generalized weakness, fatigue cough TECHNIQUE: COMPARISON: No exams were available for comparison FINDINGS: There is a right subclavian indwelling catheter tip of which overlies the superior vena cava. Cardiac size is mildly enlarged. Lungs are grossly clear. No pleural effusion seen. IMPRESSION: No evidence of acute process. EXAM: XR HIP RT COMPLETE AP PELVIS CLINICAL HISTORY: Severe right hip pain. No trauma. History of CA TECHNIQUE: COMPARISON: No exams were available for comparison FINDINGS: Five views were obtained. There is suboptimal visualization the bones due to the patient's body habitus. No gross fracture seen, no gross erosive or destructive process. There are osteophytes and soft tissue calcifications associated with the greater trochanters of the femurs bilaterally. Clinical correlation requested regarding the possibility of trochanteric bursitis. IMPRESSION: No gross fracture or destructive lesion. Labs on day of discharge: Labs from last 24 hours 02/21/19 02/21/19 06:35 06:35 WBC 4.19 L RBC 3.22 L Hgb 9.7 L Hct 30.9 L MCV 96.0 H MCH 30.1 MCHC 31.4 L RDW 14.9 H Plt Count 273 MPV 9.6 Immature Gran % 0.2 Neutrophils % 52.3 Lymphocytes % 35.1 Monocytes % 8.1 Eosinophils % 3.8 Basophils % 0.5 Absolute Neutrophils 2.19 Absolute Lymphocytes 1.47 Absolute Monocytes 0.34 Absolute Eosinophils 0.16 Absolute Basophils 0.02 Sodium 141 Potassium 4.0 Chloride 103 Carbon Dioxide 30.6 Anion Gap 7.4 BUN 15 Creatinine 0.96 Estimated GFR/1.73 m2 59.49 Glucose 107 H Calcium 8.7 Magnesium 2.2 Preliminary micro results at discharge 02/19/19 14:30 Blood Culture - Preliminary Blood NO GROWTH 24 HOURS 02/19/19 14:20 Blood Culture - Preliminary Blood NO GROWTH 24 HOURS [facility] Medical History C. difficile diarrhea (Acute) Carpal tunnel syndrome (Acute) Chronic adrenal insufficiency (Acute) Chronic pain (Chronic) Chronic respiratory failure with hypoxia (Chronic) Chronic venous stasis dermatitis (Chronic) COPD (chronic obstructive pulmonary disease) (Chronic) On nocturnal oxygen - 2L prn Depression (Chronic) Diabetes mellitus (Chronic) Insulin dependent Diverticulosis (Acute) Dyslipidemia (Chronic) History of breast cancer (Chronic) metastatic, with lymphatic spread and bone mets Hyperlipidemia (Acute) Hypopituitarism (Chronic) Hypothyroidism (Chronic) Influenza B (Acute) Iron deficiency anemia (Acute) Metastatic breast cancer (Acute) Obesity (Chronic) Obstructive sleep apnea (Chronic) per [facility] records Pneumonia (Acute) Restless leg syndrome (Acute) Spinal stenosis (Acute) Surgical History H/O bilateral mastectomy (Acute) H/O colonoscopy with polypectomy (Acute) History of carpal tunnel release of both wrists (Acute) Port-A-Cath in place (Acute) Status post transsphenoidal pituitary resection (Acute) Family History Father Prostate cancer Diabetes Social History Smoking/Tobacco Use Status: Former Tobacco Use Alcohol Intake: never Substance use type: does not use Do you feel safe at home: Yes Do you feel safe in your relationship?: Yes Additional Social history: , with 2 children. She is not working and on disability. Has a history of tobacco, quit in 1992. Reports rare use of alcohol only. Lives with daughter. Uses a walker to ambulate.
[2019-02-21 10:43] VITALS: PULSE 105; PULSE 88; O2SAT 89; O2SAT 91; O2SAT 93
--- NOTE | 2019-02-21 10:49 | IN_ITS ---
Date of service: 02/21/19 Time of Service: 10:30 PT Notes Visit Reasons: UTI, HYPERGLYCEMIA, C. DIFF Inpatient Physical Therapy Evaluation Date: 02/21/19 Referring Doctor: Sheyla Reno MD PT Orders: PT CONSULT: Limited Ability Precautions: Standard Patient Profile/Admitting Diagnosis: Orders received for this 58-year-old female who was suffering from nausea at home. Patient states that she was feeling quite under the weather and not able to sustain her home care and was taken to the hospital admitted for monitoring and for medical management. She does state to be feeling quite better and apparently discharge orders have already been signed. PMHX: C. difficile diarrhea (Acute) Carpal tunnel syndrome (Acute) Chronic adrenal insufficiency (Acute) Chronic pain (Chronic) Chronic respiratory failure with hypoxia (Chronic) Chronic venous stasis dermatitis (Chronic) COPD (chronic obstructive pulmonary disease) (Chronic) On nocturnal oxygen - 2L prn Depression (Chronic) Diabetes mellitus (Chronic) Insulin dependent Diverticulosis (Acute) Dyslipidemia (Chronic) History of breast cancer (Chronic) metastatic, with lymphatic spread and bone mets Hyperlipidemia (Acute) Hypopituitarism (Chronic) Hypothyroidism (Chronic) Influenza B (Acute) Iron deficiency anemia (Acute) Metastatic breast cancer (Acute) Obesity (Chronic) Obstructive sleep apnea (Chronic) per [facility] records Pneumonia (Acute) Restless leg syndrome (Acute) Spinal stenosis (Acute) Surgical History H/O bilateral mastectomy (Acute) H/O colonoscopy with polypectomy (Acute) History of carpal tunnel release of both wrists (Acute) Port-A-Cath in place (Acute) Status post transsphenoidal pituitary resection (Acute) Social History/Home Situation: Patient lives at home in [place] Equipment Owned/DME: Front wheel walker Subjective: Patient states she is doing quite better and has already been told that she is going home Objective: Patient sitting in the reclining chair eating oranges no medical lines in place Mental Status: Well oriented alert to person place and time Pain: 0-10 ROM: Right Upper Extremity: Within normal limits Left Upper Extremity: Within normal limits Right Lower Extremity: Within functional limits Left Lower Extremity: Within functional limits Strength: Right Upper Extremity: Globally 5/5 Left Upper Extremity: Globally 5/5 Right Lower Extremity: 5/5 globally Left Lower Extremity: 5/5 globally Bed Mobility/Transfers: NOt assessed Supine-sit: Not assesed Sit-stand: Min A Stand-sit: Min A Gait: 20 feet in room under stand by assist and with FWW Respiratory also with patient at this time when ambulating checking pulse oximetry Balance: Static Sitting: Normal Dynamic Sitting: Normal Static Standing: Good Dynamic Standing: Good Special Tests: Mobility Limitations Standardized Measure [facility] AM-PAC 6 clicks Basic Mobility Inpatient Short Form: Raw Score: 20 Standardized Score: 47.67 CMS Score: 4.06 CMS Modifier: CJ Informed Consent/Education: Patient instructed in purpose of PT consult and plan of care. ASSESSMENT: Patient is a 58 year old female with hx of obesity and good physical health Admitted with Nausea and poor functional status Patient presents with the following impairment level findings: Ambulation intolerance, assist needed for sit to stand Patient is currently in discharge planning and is heading home soon. Physical therapy will not be utilized and patient appears to be ambulating and functioning at baseline level. Impairments are contributing to the following functional limitations: AMPAC score 47.67 CMS Score: 35.83% Patient is assessed as a Moderate complexity initial evaluation 22517 based on the following: History: see above Examination: see above Presentation: evolving Decision Making: moderate based on AMPAC of 35.83% No goals as patient will not be continued on service at this time. Plan of Care/Treatment Plan: DISCHARGE RECOMMENDATIONS: To home once medically stable and cleared by medical staff. TREATMENT CODE/TIME: Moderate Complexity Initial Evaluation [id number] [facility]
[2019-02-21] MEDS: Heparin 500 UNITS/5 ML SYRINGE IVP (11:45)
[2019-02-21] MEDS: Normal Saline Flush 10 ML SYR IVP (11:45)
--- NOTE | 2019-02-21 16:38 | PDOC.CMDIS ---
- If Service Date Differs Date of service: 02/21/19 Time of Service: 16:38 LACE Index Scoring Tool - Questions: Length of Stay (in days): 3 Acuity (Admit via E.D.?): Yes Comorbidities: Diabetes w/o Complication, Chronic Pulmonary Disease, Metastatic Solid Tumor E.D. Visits: 3 - Answers: Total Score: 14 Risk of Readmission: High Risk Care Management Discharge Reason for Hospitalization: UTI Discharge Plan: Candace will discharge home with a resumption of services which includes [facility] highest needs, and nursing for would and lymphedema care. She will transport with her daughter and follow up with her PCP and discharge plan of care. Patient/Family Education Needs: Discharge plan, limitations, follow up plan, Ask Me Three.
== END 2019-02-21 12:06 | disposition home or self-care (01) | DRG 690 ==
LOC: ER 11:57 → MS 12:29
PROVIDERS: Family Medicine; Admitting Provider Internal Medicine; Emergency Provider Physician Assistant; PCP Family Medicine; Visit Provider Internal Medicine
DX: N39.0 Urinary tract infection, site not specified (principal); E27.40 Unspecified adrenocortical insufficiency; L97.919 Non-pressure chronic ulcer of unspecified part of right lower leg with unspecified severity; N17.9 Acute kidney failure, unspecified; E87.1 Hypo-osmolality and hyponatremia; A04.71 Enterocolitis due to Clostridium difficile, recurrent; Z68.43 Body mass index [BMI] 50.0-59.9, adult; Z16.19 Resistance to other specified beta lactam antibiotics; B96.89 Other specified bacterial agents as the cause of diseases classified elsewhere; M70.71 Other bursitis of hip, right hip; I73.9 Peripheral vascular disease, unspecified; R53.1 Weakness; I83.019 Varicose veins of right lower extremity with ulcer of unspecified site; R11.0 Nausea; E11.65 Type 2 diabetes mellitus with hyperglycemia; E66.01 Morbid (severe) obesity due to excess calories; C50.919 Malignant neoplasm of unspecified site of unspecified female breast; Z79.811 Long term (current) use of aromatase inhibitors; E78.5 Hyperlipidemia, unspecified; G47.33 Obstructive sleep apnea (adult) (pediatric); G25.81 Restless legs syndrome; Z79.4 Long term (current) use of insulin; Z71.3 Dietary counseling and surveillance; M25.551 Pain in right hip; Z45.2 Encounter for adjustment and management of vascular access device; E03.9 Hypothyroidism, unspecified
CPT/HCPCS: 36415; 36591; 51701; 80048; 80053; 87040; 87077; 87449; 93005; 94618; 94640; 96361; 96365; 97162; 99222; 99225; 99232; 99239; 99285; J1650; 71046; 73502; 81003; 81015; 83735; 84484; 85025; 87086; 87186; 93010; 99219; G0378; J2405; J2765; J3490; J7620; J8597

== ENCOUNTER 2019-03-18 01:34 | Outpatient (CLI) | payer MEDICARE, MEDICAID, SELFPAY ==
[2019-03-18 09:17] LABS: Hemoglobin A1C 7.9 % (3.8-5.6)
[2019-03-18 09:22] LABS: CREATININE 1.08 mg/dL (0.55-1.02); Calculated LDL 65 mg/dL; Cholesterol 195 mg/dL (<200); Estimated GFR 51.75 (mL/min/1.73m2); HDL Cholesterol 85 mg/dL (40-60); Sodium 142 mmol/L (136-145); Triglyceride 228 mg/dL (<150)
[2019-03-19 16:20] LABS: Adrenocorticotropic Hormone, P 12 pg/mL
== END 2019-03-18 01:54 ==
PROVIDERS: PCP Family Medicine; Visit Provider Internal Medicine
DX: E11.65 Type 2 diabetes mellitus with hyperglycemia (principal); Z79.4 Long term (current) use of insulin
CPT/HCPCS: 36415; 80061; 82533; 82024; 82565; 83036; 84295

== ENCOUNTER 2019-03-23 14:03 | Inpatient (IN) | payer MEDICARE, MEDICAID, SELFPAY ==
[2019-03-23] VITALS (90 sets, daily range): BP systolic 81–161; BP diastolic 24–115; PULSE 86–160; RESP 11–30; TEMP 37.2–39.8; O2SAT 85–97
[2019-03-23] MEDS: Normal Saline 1,000 ML 1000 ML IV (14:46)
[2019-03-23 14:52] LABS: Bilirubin Negative (Negative); Blood Moderate (Negative); Clarity Cloudy (Clear); Glucose 250 mg/dL (Negative); Ketones Negative (Negative); Leukocyte Esterase Small (Negative); Nitrite Negative (Negative); Specific Gravity >= 1.030 (1.005-1.025); Urobilinogen 0.2 EU/dL (Up TO 0.2)
[2019-03-23] MEDS: Ondansetron 4 MG/2 ML VIAL IVP (14:54)
[2019-03-23 14:57] LABS: Abs Immature Grans 0.01 k/cumm (0.0-0.09); Absolute Basophil Count 0.01 k/cumm (0.0-0.2); Absolute Eosinophil Count 0.03 k/cumm (0.0-0.7); Absolute Lymphocyte Count 0.74 k/cumm (1.2-3.4); Absolute Monocyte Count 0.29 k/cumm (0.11-0.7); Absolute Neutrophil Count 3.76 k/cumm (1.2-6.7); Basophils % 0.2; Eosinophils % 0.6; HCT 35.7 % (36.0-46.0); HGB 11.6 g/dL (12.0-15.5); Immature Grans % 0.2 %; Lymphocytes % 15.3; Mean Corp. HGB Concentration 32.5 g/dL (32.0-36.0); Mean Corpuscular Volume 95.5 fL (80-95); Mean Platelet Volume 9.3 fL (8.0-11.0); Neutrophils % 77.7; Platelet Count 208 x1000/uL (130-400); RBC 3.74 m/cumm (4.00-5.20); RBC Distribution Width 16.1 % (11.7-14.6); White Blood Cell Count 4.84 k/cumm (4.4-10.8)
[2019-03-23 14:58] LABS: Lactate 3.6 mmol/L (0.6-1.4)
[2019-03-23 15:03] LABS: Bacteria Packed HPF (Negative); C & S Indicated? C&S Done As Ordered; WBC >50 HPF (0-5)
[2019-03-23 15:20] LABS: ALT 22 U/L (14-59); AST 24 U/L (15-37); Albumin 3.1 g/dL (3.4-5.0); Alkaline Phosphatase 127 U/L (46-116); Anion Gap 10.3 mmol/L (3-11); BUN 18 mg/dL (7-18); Bilirubin, Total 0.5 mg/dL (0.2-1.0); CO2 27.7 mmol/L (21.0-32.0); Calcium 8.8 mg/dL (8.5-10.1); Chloride 99 mmol/L (98-107); Estimated GFR 25.42 (mL/min/1.73m2); Glucose 220 mg/dL (74-106); Potassium 4.1 mmol/L (3.5-5.1); Sodium 137 mmol/L (136-145); Total Protein 7.8 g/dL (6.4-8.2)
[2019-03-23 15:25] LABS: Troponin I < 0.05 ng/Ml (<0.06)
[2019-03-23 15:31] LABS: Lipase 80 U/L (73-393)
[2019-03-23 16:18] LABS: Lactate 2.7 mmol/L (0.6-1.4)
--- NOTE | 2019-03-23 16:18 | DI.CT_ITS ---
EXAM: CT CHEST/ABD/PEL WO CLINICAL HISTORY: back pain, malaise, abd distension. TECHNIQUE: Imaging Protocol: Axial computed tomography images with coronal and sagittal reformatted images were created and reviewed CONTRAST MATERIAL: Intravenous: Omnipaque 350 Contrast volume:0 mL contrast route:IV - Oral: No COMPARISON: No exams were available for comparison FINDINGS: CHEST: Tracheobronchial tree: Patent where visualized. Mediastinum and [place]: No dominant adenopathy or fluid collection. Pulmonary parenchyma: No consolidation or dominant measurable mass. No architectural distortion. Pleura: No effusion or pneumothorax. Aorta: Atherosclerosis. No aneurysmal dilatation. Heart: Cardiomegaly. No pericardial effusion. No significant coronary artery calcification. Bones: Degenerative changes seen in the spine no acute fracture or subluxation. Tubes, catheters and devices: There is an Pjavxy-O-Vjhg catheter in the right chest wall. The tip te rminates in the superior vena cava. Soft tissues: There is a 5 x 2.7 centimeter soft tissue mass in the left axilla with calcification. ABDOMEN: Liver: Normal density. No measurable mass. Hepatomegaly. Gallbladder and biliary tract: No calculi. Distended. Pancreas: Normal density, no abnormal calcifications or inflammatory process. Spleen: Normal. Kidneys: Normal size, contour and axis. No radiodense stones or obstructive uropathy. No masses seen. Adrenal glands: 2.3 centimeter fat density left adrenal mass. This likely reflects a benign adenoma or myelolipoma. Lymph nodes: Within normal limits. Aorta: Mild atherosclerosis. No aneurysmal dilatation. PELVIS: Bladder: Poorly distended which limits evaluation. Bowel: Colonic diverticulosis but no evidence of acute diverticulitis. No evidence of acute appendici tis. Peritoneal cavity: No ascites. Mild stranding in the right retroperitoneum of uncertain if any clini yuko significance. Bones: Sclerosis of the right iliac bone. No associated soft tissue mass or fracture. Degenerative changes seen in the lumbar spine. Reproductive organs: Within normal limits. Soft tissues: Edema in the subcutaneous tissues which may represent anasarca. IMPRESSION: 1. 5 x 2.7 centimeter soft tissue mass in the left axilla. Follow-up with ultrasound is recommended. Biopsy should be considered. 2. Sclerosis of the right iliac bone. Osseous metastatic disease cannot be excluded. Bone scan may b e considered for further evaluation. 3. Colonic diverticulosis but no evidence of acute diverticulitis. 4. Please see the above discussion for complete details. DATA REPOSITORY: All CT scans at this facility are submitted to the National Radiology Data Registry (NRDR) Dose Index Registry (DIR) with the [employer] ([employer]). RADIATION OPTIMIZATION: All CT scans at this facility use at least one of these dose optimization te chniques: automated exposure control; mA and/or kV adjustment per patient size (includes targeted exa ms where dose is matched to clinical indication); or iterative reconstruction.
--- NOTE | 2019-03-23 16:20 | ED.GENADUL_ITS ---
Discharge Plan Disposition Patient Disposition: [facility] INPATIENT Condition: Serious Discharge Details Chief Complaint: Nausea/Vomit/Diar Clinical Impression: UTI (urinary tract infection), Sepsis, Hypoxia Admit Date/Time: 03/23/19 18:37 Admit Provider: Robert Collado Attending Provider: Robert Collado Primary Care Provider: Jan Coleman ED Provider: Payton Gale Discharge Data Discharge Date/Time-TO BE ENTERED AT DEPARTURE: 03/23/19 19:24 Medical Decision Making <MARYSOL Musa - Last Filed: 03/26/19 00:45> Is a 59-year-old patient presenting to the emergency room for vague complaints of malaise and 2 episodes of vomiting since yesterday. Denies nausea at this time. Patient denies any focal complaints of pain although does report a mild headache. Denies striking her head neck or back. Denies any recent falls. Denies fevers or chills. Patient's history is somewhat limited as she very vaguely will answer questions although is alert and oriented. Patient denies any focal weakness of extremities either upper or lower. Patient does report abdominal pain noted yesterday but resolved today. Denies any bowel changes. Patient reports feeling mildly dehydrated. Patient is mildly dry mucous membranes noted on exam. Patient's breath sounds are clear however she does have notable hypoxia per EMS which persists intermittently in the ER, improved with 3 L of nasal cannula patient is tolerating without difficulty. Patient denies any associated chest pain, difficulty breathing or shortness of breath. Denies significant cough. Patient does have a odor of urine possibly incontinent during transfer however is notably malodorous. Patient denies associated dysuria urgency or frequency. On exam patient has mild periumbilical abdominal pain and appears somewhat distended. Again patient reported abdominal pain yesterday but since resolved today. IV fluids ordered, labs ordered, urinalysis via catheter ordered following. Patient did have elevation of lactic acid however patient nurse reports that the lactic acid sat out and they question whether the results are accurate. Patient did receive 1 L of IV fluid and lactic acid was repeated. Patient signed out to oncoming provider pending CT results. <MARYSOL Patton - Last Filed: 03/24/19 00:39> Care transition to Angelica Garcia PA-C, with imaging pending. Please see her initial note regarding presentation, exam and history. In brief, the patient began feeling ill yesterday. Reportedly fatigue and generalized malaise. Denies any fevers or chills. She is endorsing some chronic back pain which she associates with known metastasis from breast cancer to her lumbar spine. No acute change in this pain at this time. Patient was admitted last week, discharged home on 02/21/2019, at which time she had been admitted for UTI with acute kidney injury. Patient was also admitted a month prior to that at [facility] and was treated at that time for C. difficile. She denies any recent diarrhea. No abdominal pain. Denies any chest pain. Endorses shortness of breath, denies any leg pain. Denies history of DVT, PE or other clot that she is aware of. Patient's daughter reports that her mother used to be on oxygen at home. Has not needed this in the past 3 years since her pituitary tumor was excised. However, states that occasionally when she becomes ill she will use it for brief periods. Initial labs show no leukocytosis. She did have an initial lactate of 3.6 but Angelica had question of this associated with the time it took to send the labs and repeat was noted to be 2.7. Creatinine is up to 2.0, this is up from 1.085 days ago. GFR is 25, this is down from 51 5 days ago. Initial troponin is less than 0.05. Urine showed packed bacteria and small leukocyte esterase. This was a catheter obtained urine. Thus far, patient appears to be suffering from urosepsis and hypoxia. At the time I assumed care, patient was in diagnostic imaging for her CT scan. She is requiring 3 L of nasal cannula oxygen. Upon return, plan to have the patient begun on IV ceftriaxone for her urinary tract infection. I am concerned that this does not account for her acute hypoxia. The patient is a fairly poor historian, daughter feels that she is not at her baseline mentation. Chart review shows the patient is typically in the low 90s but is reported today to be 85% on presentation. She is a tachycardic at 112. With the recent admissions, known cancer diagnosis and other comorbidities, patient is at high risk for pulmonary embolism. Will screen a d- dimer. Patient is not able to undergo CTA for PE at this time secondary to her acute kidney injury. S-dimer is elevated at 1660. We will give subcu Lovenox and discuss admission for urosepsis with concern for PE with hospitalist. Hoping that correction of her acute kidney injury may allow for testing later or patient may undergo VQ scan. Spoke with pharmacist regarding sub Q dosing given patients BMI, she recommended QD 150mg SC dosing. Did not recommend the typical BID dosing with her SIERRA. While here, patients BP has been fluctuating greatly, she has not been persistantly hypotensive. Systolic ranging from high 90s to 160s. Has been afebrile. She has receied 1L bolus followed by rate, 1g ceftriaxone and SC lovenox. Discussed case with Dr. Collado who agrees to admission. Patient wishes to be full code. She is eating and drinking while here. All of their questions and concerns were addressed, they are in agreement iwth this plan. HPI <MARYSOL Musa - Last Filed: 03/26/19 00:45> General Date/Time Provider Initiated Documentation: 03/23/19 14:08 . HPI Narrative: This is a 59-year-old patient presenting for complaints of 2 episodes of vomiting, malaise which began yesterday. Patient complaining of back pain which she reports is chronic due to known metastatic disease. Patient presents via EMS due to complaints of malaise, fatigue and vomiting. No measured fever. Patient specifically reports mild headache, no falls or trauma recently. Denies chest pain, patient presents via EMS with mild hypoxia noted in the mid and upper 80s. Patient again denies difficulty breathing at this time. Denies any cough. Patient reports abdominal pain yesterday which has since resolved. Patient denies nasal congestion. Patient denies ear pain. Patient denies obvious bowel changes. Patient was recently admitted for urinary tract infection. Patient discharged on 21 February. Patient also has recent history of C. difficile. Patient denies any bowel changes currently. Patient denies dysuria, urgency or frequency. Patient does present with a odor of urine and likely incontinence. History is limited provided from patient, as she is a poor historian. Does not appear obtunded or confused at this time. Related Data Home Medications Medication Instructions Recorded Confirmed Spiriva Respimat 1 puff INHALATION DAILY 04/03/17 03/23/19 Symbicort 2 puff INHALATION BID 04/03/17 03/23/19 aspirin [Aspir-81] 81 mg PO DAILY 04/03/17 03/23/19 atorvastatin [Lipitor] 40 mg PO HS 04/03/17 03/23/19 carbamazepine 200 mg PO BID 04/03/17 03/23/19 cetirizine [Zyrtec] 10 mg PO DAILY 04/03/17 03/23/19 cyanocobalamin (vitamin B-12) 1,000 mcg PO DAILY 04/03/17 03/23/19 [Vitamin B-12] duloxetine [Cymbalta] 60 mg PO HS 04/03/17 03/23/19 ferrous sulfate 325 mg PO TID 04/03/17 03/23/19 folic acid 1 mg PO DAILY 04/03/17 03/23/19 montelukast [Singulair] 10 mg PO DAILY 04/03/17 03/23/19 ondansetron HCl [Zofran] 8 mg PO TID PRN 04/03/17 03/23/19 pregabalin [Lyrica] 200 mg PO TID 04/03/17 03/23/19 Trulicity 1.5 mg SUBCUT QWEEK 05/06/18 03/23/19 hydrocortisone 5 mg PO QNOON 05/06/18 03/23/19 hydrocortisone 20 mg PO QAM 05/06/18 03/23/19 levothyroxine 150 mcg PO DAILY 05/06/18 03/23/19 benzonatate 200 mg PO TID PRN #15 cap 05/10/18 03/23/19 guaifenesin [Mucinex] 600 mg PO BID #10 tab 05/10/18 03/23/19 Humulin R U-500 (Conc) Kwikpen 50 unit SUBCUT QNOON 02/02/19 03/23/19 Humulin R U-500 (Conc) Kwikpen 50 unit SUBCUT QPM 02/02/19 03/23/19 Humulin R U-500 (Conc) Kwikpen 100 unit SUBCUT QAM 02/02/19 03/23/19 duloxetine [Cymbalta] 60 mg PO HS 02/02/19 03/23/19 loratadine 10 mg PO DAILY 02/02/19 03/23/19 Lactobacillus acidophilus 1,000 mmu cells PO DAILY #30 cap 02/04/19 03/23/19 Prevalite 4 g PO BID@1000,1999 PRN #10 each 02/04/19 02/18/19 Verzenio 150 mg PO BID #0 tab 02/04/19 03/23/19 letrozole 2.5 mg PO DAILY 02/04/19 03/23/19 ranitidine HCl 300 mg PO QHS #30 cap 02/04/19 03/23/19 Previous Rx's Medication Instructions Recorded benzonatate 200 mg PO TID PRN #15 cap 05/10/18 guaifenesin [Mucinex] 600 mg PO BID #10 tab 05/10/18 Lactobacillus acidophilus 1,000 mmu cells PO DAILY #30 cap 02/04/19 Prevalite 4 g PO BID@1000,2000 PRN #10 each 02/04/19 Verzenio 150 mg PO BID #0 tab 02/04/19 ranitidine HCl 300 mg PO QHS #30 cap 02/04/19 Allergies Allergy/AdvReac Type Severity Reaction Status Date / Time bee venom protein (honey bee) Allergy Unknown Unverified 03/23/19 14:18 Latex, Natural Rubber AdvReac Intermediate Unverified 03/23/19 14:18 adhesive tape AdvReac Mild Unverified 03/23/19 14:18 General Stated Complaint: Nausea/Vomit/Diar CARMEN: 2 Review of Systems <MARYSOL Musa - Last Filed: 03/26/19 00:45> All systems reviewed & are unremarkable except as noted in HPI and below Constitutional Constitutional: Denies chills, Denies fever(s), Reports headache(s) and Reports malaise ENT Ears, Nose, Mouth, and Throat: Denies vertigo, Denies dizziness, Reports headache(s), Denies nasal congestion, Denies sinus pain and Denies sore throat Cardiovascular Cardiovascular: Denies chest pain and Denies palpitations Respiratory Respiratory: Denies cough Gastrointestinal Gastrointestinal: Reports abdominal pain, Denies diarrhea, Denies nausea and Reports vomiting Genitourinary Genitourinary: Denies dysuria Integumentary/Breasts Skin/Breast: Denies rash Neurologic Neurologic: Denies vertigo, Denies dizziness and Reports headache(s) Endocrine Endocrine: Denies palpitations PFSH <MARYSOL Musa - Last Filed: 03/26/19 00:45> Medical History (Updated 03/25/19 @ 18:10 by Sheyla Reno MD) C. difficile diarrhea (Acute) Carpal tunnel syndrome (Acute) Chronic adrenal insufficiency (Acute) Chronic pain (Chronic) Chronic respiratory failure with hypoxia (Chronic) Chronic venous stasis dermatitis (Chronic) COPD (chronic obstructive pulmonary disease) (Chronic) On nocturnal oxygen - 2L prn Depression (Chronic) Diabetes mellitus (Chronic) Insulin dependent Diverticulosis (Acute) Dyslipidemia (Chronic) Goals of care, counseling/discussion (Acute) History of breast cancer (Chronic) metastatic, with lymphatic spread and bone mets Hyperlipidemia (Acute) Hypopituitarism (Chronic) Hypothyroidism (Chronic) Influenza B (Acute) Iron deficiency anemia (Acute) Metastatic breast cancer (Chronic) Obesity (Chronic) Obstructive sleep apnea (Chronic) per [facility] records Palliative care patient (Acute) Pneumonia (Acute) Restless leg syndrome (Acute) Spinal stenosis (Acute) Uncontrolled pain (Chronic) Surgical History H/O bilateral mastectomy (Acute) H/O colonoscopy with polypectomy (Acute) History of carpal tunnel release of both wrists (Acute) Port-A-Cath in place (Acute) Status post transsphenoidal pituitary resection (Acute) Family History (Updated 03/24/19 @ 20:43 by Nevaeh Royal MD) Father , age 83 from complications of diabetes Prostate cancer Diabetes Mother , age 79 from complications of Crohn's disease and colitis Crohn's disease Colitis Daughter No problems noted. Daughter No problems noted. Brother No problems noted. Sister Diabetes Obesity Sister No problems noted. Sister No problems noted. Sister No problems noted. Social History (Updated 03/24/19 @ 20:47 by Nevaeh Royal MD) Smoking/Tobacco Use Status: Former Tobacco Use Alcohol Intake: never Substance use type: does not use Caregiver/Support person: Yes Household members: children Number of Children: 2 Communication Needs: Hard of Hearing and Corrective Lenses Education Level: middle school Do you need help understanding health information?: Always current occupation: on disability What is your relationship status?: How often do you talk on the phone with friends or family?: once per week How often do you get together with friends or relatives?: three or more times per week Panel score (0-1 are the most socially isolated patients): 1 What type of physical activity do you participate in: none, sedentary lifestyle, wheelchair-bound and additional Details: needs a new wheelchair, cannot walk far, just a few steps Special pedro pablo needs: No Do you feel safe at home: Yes Do you feel safe in your relationship?: Yes Additional Social history: , with 2 children. She is not working and on disability. Has a history of tobacco, quit in 1992. Reports rare use of alcohol only. Lives with daughter. Uses a walker to ambulate. Hard to do recently, depending more on WC. In a lot of pain. Recent scans show progression of breast cancer. Exam <MARYSOL Musa - Last Filed: 03/26/19 00:45> Narrative Exam Narrative: CONST: Ill appearing patient, in no acute distress. Alert and oriented. HENMT: Head nomocephalic, normal to inspection. Atraumatic. Hearing grossly normal. External ear canal no erythema or swelling. TM normal bilaterally. Nose normal to inspection. No rhinnorhea. Normal facial exam. Oral mucosa appears dry. Tounge normal. Dentition normal. Normal posterior oropharynx. Uvula midline. EYES: General normal appearance. Alignment normal. Eyelids normal. Conjunctiva normal. Sclera normal. PERRL. NECK: Normal visual inspection. FROM. No lymphadenopathy. Trachea midline. No Midline tenderness. CHEST: Normal insepection of the chest. RESP: Normal respiratory effort. Speaking full sentences. No cough. No wheezing. No retractions. Clear to auscaltation. Breath sound equal and present bilaterally. CARDIO: No JVD. Normal PMI. Regular Rate. Regular Rhythm. Normal peripheral pulses. GI: Abdomen appears distended. Soft. Mild periumbilical discomfort with palpation. Bowel sounds hypoactive in all 4 quadrants. No rebound. No gaurding. No peritoneal signs Back no CVA tenderness bilaterally. Mid and lower back pain with palpation. No obvious rashes, skin changes or step-offs. MUSCULOSKELETAL: Normal Gait. FROM of all extremities. Distal neurovascularly intact. Sensation intact distally. Chronic hyperpigmentation bilateral lower extremities without associated edema. SKIN: Normal. Dry. No rashes. NEURO: Alert and awake. Speech clear. Course <MARYSOL Musa - Last Filed: 03/26/19 00:45> Vital Signs Vital signs: Vital Signs Temperature 37.2 C 03/23/19 14:11 Pulse 112 H 03/23/19 14:11 Respiratory Rate 28 H 03/23/19 14:11 Blood Pressure 111/68 03/23/19 14:11 Pulse Oximetry 85 L 03/23/19 14:11 Temperature 37.2 C 03/23/19 14:11 Temperature Source Oral 03/23/19 14:11 Pulse 93 H 03/23/19 15:02 Pulse 108 H 03/23/19 15:20 Respiratory Rate 27 H 03/23/19 15:20 Respiratory Effort 03/23/19 14:11 Blood Pressure 143/98 H 03/23/19 15:02 Blood Pressure Mean 107 03/23/19 15:02 Blood Pressure Position Supine 03/23/19 14:11 Pulse Oximetry 92 L 03/23/19 15:00 Oxygen Delivery Method Room Air 03/23/19 14:11 Oxygen Flow Rate 0 03/23/19 14:11 Lab/Test Results Lab/Test Results: 03/23/19 15:30 Blood Blood Culture - Pending 03/23/19 15:10 Blood Blood Culture - Pending 03/23/19 14:42 Urine - Cath Straight Urine Culture - Pending Laboratory Tests Range/Units 03/23/19 03/23/19 03/23/19 14:35 14:35 14:35 WBC (4.4-10.8) k/cumm 4.84 RBC (4.00-5.20) m/cumm 3.74 L Hgb (12.0-15.5) g/dL 11.6 L Hct (36.0-46.0) % 35.7 L MCV (80-95) fL 95.5 H MCH (27.0-33.0) pg 31.0 MCHC (32.0-36.0) g/dL 32.5 RDW (11.7-14.6) % 16.1 H Plt Count (130-400) x1000/uL 208 MPV (8.0-11.0) fL 9.3 Immature Gran % % 0.2 Neutrophils % 77.7 Lymphocytes % 15.3 Monocytes % 6.0 Eosinophils % 0.6 Basophils % 0.2 Absolute Neutrophils (1.2-6.7) k/cumm 3.76 Absolute Lymphocytes (1.2-3.4) k/cumm 0.74 L Absolute Monocytes (0.11-0.7) k/cumm 0.29 Absolute Eosinophils (0.0-0.7) k/cumm 0.03 Absolute Basophils (0.0-0.2) k/cumm 0.01 Sodium (136-145) mmol/L 137 Potassium (3.5-5.1) mmol/L 4.1 Chloride (98-107) mmol/L 99 Carbon Dioxide (21.0-32.0) mmol/L 27.7 Anion Gap (3-11) mmol/L 10.3 BUN (7-18) mg/dL 18 Creatinine (0.55-1.02) mg/dL 2.00 H Estimated GFR/1.73 m2 (mL/min/1.73m2) 25.42 Glucose (74-106) mg/dL 220 H Lactate (0.6-1.4) mmol/L 3.6 H* Calcium (8.5-10.1) mg/dL 8.8 Total Bilirubin (0.2-1.0) mg/dL 0.5 AST (15-37) U/L 24 ALT (14-59) U/L 22 Alkaline Phosphatase (46-116) U/L 127 H Troponin I (<0.06) ng/Ml < 0.05 Total Protein (6.4-8.2) g/dL 7.8 Albumin (3.4-5.0) g/dL 3.1 L Lipase (73-393) U/L 80 Urine Color (Yellow) Urine Clarity (Clear) Urine pH (5-8) Ur Specific Argyle (1.005-1.025) Urine Protein (Negative) mg/dL Urine Ketones (Negative) mg/dL Urine Blood (Negative) Urine Nitrite (Negative) Urine Bilirubin (Negative) Urine Urobilinogen (Up TO 0.2) EU/dL Ur Leukocyte Esterase (Negative) Urine RBC Urine WBC (0-5) HPF Ur Epithelial Cells Urine Crystals Urine Bacteria (Negative) HPF Urine Mucus Ur Culture Indicated? Urine Glucose (Negative) mg/dL Range/Units 03/23/19 03/23/19 14:42 16:08 WBC (4.4-10.8) k/cumm RBC (4.00-5.20) m/cumm Hgb (12.0-15.5) g/dL Hct (36.0-46.0) % MCV (80-95) fL MCH (27.0-33.0) pg MCHC (32.0-36.0) g/dL RDW (11.7-14.6) % Plt Count (130-400) x1000/uL MPV (8.0-11.0) fL Immature Gran % % Neutrophils % Lymphocytes % Monocytes % Eosinophils % Basophils % Absolute Neutrophils (1.2-6.7) k/cumm Absolute Lymphocytes (1.2-3.4) k/cumm Absolute Monocytes (0.11-0.7) k/cumm Absolute Eosinophils (0.0-0.7) k/cumm Absolute Basophils (0.0-0.2) k/cumm Sodium (136-145) mmol/L Potassium (3.5-5.1) mmol/L Chloride (98-107) mmol/L Carbon Dioxide (21.0-32.0) mmol/L Anion Gap (3-11) mmol/L BUN (7-18) mg/dL Creatinine (0.55-1.02) mg/dL Estimated GFR/1.73 m2 (mL/min/1.73m2) Glucose (74-106) mg/dL Lactate (0.6-1.4) mmol/L 2.7 H* Calcium (8.5-10.1) mg/dL Total Bilirubin (0.2-1.0) mg/dL AST (15-37) U/L ALT (14-59) U/L Alkaline Phosphatase (46-116) U/L Troponin I (<0.06) ng/Ml Total Protein (6.4-8.2) g/dL Albumin (3.4-5.0) g/dL Lipase (73-393) U/L Urine Color (Yellow) Yellow Urine Clarity (Clear) Cloudy Urine pH (5-8) 5.0 Ur Specific Arg[place] (1.005-1.025) >= 1.030 H Urine Protein (Negative) mg/dL 30 H Urine Ketones (Negative) mg/dL Negative Urine Blood (Negative) Moderate H Urine Nitrite (Negative) Negative Urine Bilirubin (Negative) Negative Urine Urobilinogen (Up TO 0.2) EU/dL 0.2 Ur Leukocyte Esterase (Negative) Small H Urine RBC Not Applicable Urine WBC (0-5) HPF >50 H Ur Epithelial Cells Not Applicable Urine Crystals Not Applicable Urine Bacteria (Negative) HPF Packed Urine Mucus Not Applicable Ur Culture Indicated? C&s done as ordered Urine Glucose (Negative) mg/dL 250 H Sign Out <MARYSOL Musa - Last Filed: 03/26/19 00:45> Sign Out Data: Sign Out Comment: Signed out pending the remainder of labs, CT imaging. Last updated by Scarlett Jama PA at 03/23/19 16:28
[2019-03-23] MEDS: cefTRIAXone 1 GM/50 ML BAG IVPB (16:43)
[2019-03-23 16:58] LABS: NT-proBNP 309 pg/mL (<300)
[2019-03-23 17:15] LABS: D-Dimer 1660 ng/mlFEU (<500)
--- NOTE | 2019-03-23 17:24 | DI.VRAD_ITS ---
PROCEDURE INFORMATION: Exam: CT Chest Without Contrast Exam date and time: 03/23/2019 4:10 PM Age: 59 years old Clinical indication: Other: Back pain, malaise, abd distension TECHNIQUE: Imaging protocol: Computed tomography of the chest without contrast. Radiation optimization: All CT scans at this facility use at least one of these dose optimization techniques: automated exposure control; mA and/or kV adjustment per patient size (includes targeted exams where dose is matched to clinical indication); or iterative reconstruction. COMPARISON: CR XR HIP RT COMPLETE AP PELVIS 02/18/2019 11:03 AM FINDINGS: Tubes, catheters and devices: Right chest port terminates in the mid SVC. Lungs: Clear lungs. Respiratory motion limits evaluation for small pulmonary nodules. Pleural space: Unremarkable. No pneumothorax. No pleural effusion. Heart: Cardiomegaly. Small pericardial effusion. Aorta: The aorta demonstrates mild atherosclerotic calcification. Lymph nodes: Unremarkable. No enlarged lymph nodes. Bones/joints: No acute fracture. Vertebral body heights are maintained. Mild degenerative changes of the thoracic spine. Soft tissues: Numerous surgical clips about both anterior chest sparrow. 5.0 x 2.7 cm soft tissue lesion with internal punctate mineralization in the left axilla. IMPRESSION: 1. No acute abnormality in the chest. 2. 5.0 x 2.7 cm soft tissue lesion in the left axilla. Consider further evaluation with ultrasound and tissue sampling if not already performed. PROCEDURE INFORMATION: Exam: CT Abdomen And Pelvis Without Contrast Exam date and time: 03/23/2019 4:10 PM Age: 59 years old Clinical indication: Other: Back pain, malaise, abd distension TECHNIQUE: Imaging protocol: Computed tomography of the abdomen and pelvis without contrast. Radiation optimization: All CT scans at this facility use at least one of these dose optimization techniques: automated exposure control; mA and/or kV adjustment per patient size (includes targeted exams where dose is matched to clinical indication); or iterative reconstruction. COMPARISON: CR XR HIP RT COMPLETE AP PELVIS 02/18/2019 11:03 AM FINDINGS: Liver: The liver is normal. Gallbladder and bile ducts: Distended gallbladder is otherwise unremarkable. Pancreas: The pancreas is normal. Spleen: The spleen is normal. Adrenals: Fat containing left adrenal nodule consistent with benign adenoma or myelolipoma. Kidneys and ureters: The kidneys are normal. Stomach and bowel: Mild diverticulosis is present in the distal colon. Appendix: A normal appendix is identified. Intraperitoneal space: Unremarkable. No free air. No significant fluid collection. Retroperitoneal space: Nonspecific fat stranding and scarring in the right retroperitoneum. Vasculature: The aorta demonstrates mild atherosclerotic calcification. Lymph nodes: Unremarkable. No enlarged lymph nodes. Bladder: Decompressed bladder limits evaluation Reproductive: Unremarkable as visualized. Bones/joints: Irregular sclerotic appearance of the right iliac bone along the right sacroiliac joint. No acute fracture. Soft tissues: Anasarca. IMPRESSION: 1. Sclerotic appearance of the right iliac bone is nonspecific but could represent osseous metastasis in the setting of malignancy. Consider further evaluation with bone scan or PET-CT. 2. Nonspecific fat stranding and scarring in the right retroperitoneum of unclear clinical significance. 3. Mild diverticulosis. Dictated and Authenticated by: Kam Ryan MD. Ordering:RUSH Pantoja MD
[2019-03-23 18:02] LABS: Troponin I < 0.05 ng/Ml (<0.06)
[2019-03-23] MEDS: Normal Saline 1,000 ML 250 ML IV ×2 (18:21→21:30)
--- NOTE | 2019-03-23 18:53 | HPE_ITS ---
Date of service: 03/23/19 Time of Service: 18:53 Assessment and Plan Assessment and plan (1) Urinary tract infection: Start date: 03/23/19 Status: Acute Assessment and plan: This is a 59-year-old lady with acute onset of illness of the last 48 hours now appearing septic with low systolic blood pressure below 100, tachycardic and fever with lactic acidosis clearing with IV hydration in the ED but continues to appear obtunded from her acute process. This is most likely was is a urinary tract infection and we did place a Mendoza to monitor fluid because of fluid resuscitation with her sepsis. She does have a port that can be used if she does require vasopressors. She is a full code. Because of her recent hospitalizations and acute decompensation once brought from the ED, we will place her in ICU for close monitoring with fluid resuscitation and broadening her antibiotic coverage from Rocephin to vancomycin and Zosyn. CT scan of the chest did not reveal any infiltrates at the time of scanning. There was a question of PE with her hypoxemia and for now she is on a once a day dose of Lovenox adjusted to renal function. If there is still concer n of PE once she is hydrated, she may be able to have a repeat CTA of the chest. Qualifiers: Hematuria presence: without hematuria Urinary tract infection type: site unspecified Qualified Code(s): N39.0 - Urinary tract infection, site not specified (2) SIERRA (acute kidney injury): Start date: 03/23/19 Status: Acute Assessment and plan: Patient's renal functions appear to be half of her baseline and she does appear dehydrated. We will acutely rehydrate aggressively with normal saline at 250 cc an hour watching for fluid overload. For now continue Mendoza catheter for monitoring fluid intake and output but this should be removed soon as possible with her UTI. (3) Chronic respiratory failure with hypoxia: Status: Chronic Assessment and plan: Patient appears to be obtunded as if she has RAKAN but is not on treatment for this. Venous blood gas did not reveal CO2 retention and did reveal hypoxemia persisting. We will continue O2 supplementation and consider positive pressure respiratory treatment if necessary. Now she is oxygenating well and breathing comfortably. (4) Adrenal insufficiency: Status: Chronic Assessment and plan: Status post pituitary surgery with patient requiring stress steroids and her acute situation. She does have diabetes and this will be exacerbated by steroid use but also she is a risk for hypoglycemia and hypotension with her inability to respond to acute distress being on chronic prednisone. (5) Diabetes mellitus: Status: Chronic Assessment and plan: While in the hospital we will place her on a before meals and at bedtime sliding scale of insulin with her Trulicity ordered for weekly but no basal insulin. Qualifiers: Chronic kidney disease stage: stage 3 (moderate) Diabetes mellitus complication detail: with chronic kidney disease Diabetes mellitus complication status: with kidney complications Diabetes mellitus jail insulin use: with intermodal customer service use Diabetes mellitus type: type 2 Qualified Code(s): E11.22 - Type 2 diabetes mellitus with diabetic chronic kidney disease; N18.3 - Chronic kidney disease, stage 3 (moderate); Z79.4 - terminal supervisor (current) use of insulin (6) History of breast cancer: Status: Chronic Assessment and plan: Patient does have metastatic breast cancer on treatment presently and she is a full code. It has metastasized to her spine which causes some pain and immobility. History of Present Illness History of Present Illness Chief Complaint: Emesis with malaise and change in mental status Narrative: This is a 59-year-old lady who was admitted through the ED for possible UTI after reporting for evaluation when she had at least 24 to 48 hours feeling ill. She had 2 episodes of vomiting and malaise which started the day prior and in the ED she was slightly more confused than her baseline, requiring oxygen when she uses does not wear this at home though she is morbidly obese and fairly immobile looking and a mild headache though she had no fever or chills. When she was admitted to the [facility] floor she did become febrile and continued to have change in mental status. In the ED a PE was contemplated because of her tachycardia and low blood pressure intermittently though the measurements were not accurate. He did not have fever in the ED and presently she appears to have more for sepsis syndrome with possible urinary tract as a source but also we need to consider pneumonia with the patient in the hospital several times over the last month. Her daughter did not offer much more history and the patient is a poor historian. She states that she does walk at home and usually does not require oxygen and takes care of herself. She is on treatment for metastatic cancer in the pill form at this time and is a full code. She has multiple comorbidities including adrenal insufficiency status post removal of a pituitary tumor, diabetes and morbid obesity. She does have COPD on inhalers and chronic pain with her metastatic breast cancer to her back but also from immobility with chronic myalgias. Review of Systems Narrative: 13 point review of systems otherwise unrevealing or unobtainable. [facility] Medical History C. difficile diarrhea (Acute) Carpal tunnel syndrome (Acute) Chronic adrenal insufficiency (Acute) Chronic pain (Chronic) Chronic respiratory failure with hypoxia (Chronic) Chronic venous stasis dermatitis (Chronic) COPD (chronic obstructive pulmonary disease) (Chronic) On nocturnal oxygen - 2L prn Depression (Chronic) Diabetes mellitus (Chronic) Insulin dependent Diverticulosis (Acute) Dyslipidemia (Chronic) History of breast cancer (Chronic) metastatic, with lymphatic spread and bone mets Hyperlipidemia (Acute) Hypopituitarism (Chronic) Hypothyroidism (Chronic) Influenza B (Acute) Iron deficiency anemia (Acute) Metastatic breast cancer (Acute) Obesity (Chronic) Obstructive sleep apnea (Chronic) per [facility] records Pneumonia (Acute) Restless leg syndrome (Acute) Spinal stenosis (Acute) Surgical History H/O bilateral mastectomy (Acute) H/O colonoscopy with polypectomy (Acute) History of carpal tunnel release of both wrists (Acute) Port-A-Cath in place (Acute) Status post transsphenoidal pituitary resection (Acute) Family History Father Prostate cancer Diabetes Social History Smoking/Tobacco Use Status: Former Tobacco Use Alcohol Intake: never Substance use type: does not use Do you feel safe at home: Yes Do you feel safe in your relationship?: Yes Additional Social history: , with 2 children. She is not working and on disability. Has a history of tobacco, quit in 1992. Reports rare use of alcohol only. Lives with daughter. Uses a walker to ambulate. Meds Home Medications and Allergies Home Medications Medication Instructions Recorded Confirmed Type Spiriva Respimat 1 puff INHALATION DAILY 04/03/17 03/23/19 History Symbicort 2 puff INHALATION BID 04/03/17 03/23/19 History aspirin [Aspir-81] 81 mg PO DAILY 04/03/17 03/23/19 History atorvastatin [Lipitor] 40 mg PO HS 04/03/17 03/23/19 History carbamazepine 200 mg PO BID 04/03/17 03/23/19 History cetirizine [Zyrtec] 10 mg PO DAILY 04/03/17 03/23/19 History cyanocobalamin (vitamin B-12) 1,000 mcg PO DAILY 04/03/17 03/23/19 History [Vitamin B-12] duloxetine [Cymbalta] 60 mg PO HS 04/03/17 03/23/19 History ferrous sulfate 325 mg PO TID 04/03/17 03/23/19 History folic acid 1 mg PO DAILY 04/03/17 03/23/19 History montelukast [Singulair] 10 mg PO DAILY 04/03/17 03/23/19 History ondansetron HCl [Zofran] 8 mg PO TID PRN 04/03/17 03/23/19 History pregabalin [Lyrica] 200 mg PO TID 04/03/17 03/23/19 History Trulicity 1.5 mg SUBCUT QWEEK 05/06/18 03/23/19 History hydrocortisone 5 mg PO QNOON 05/06/18 03/23/19 History hydrocortisone 20 mg PO QAM 05/06/18 03/23/19 History levothyroxine 150 mcg PO DAILY 05/06/18 03/23/19 History benzonatate 200 mg PO TID PRN #15 cap 05/10/18 03/23/19 Rx guaifenesin [Mucinex] 600 mg PO BID #10 tab 05/10/18 03/23/19 Rx Humulin R U-500 (Conc) Kwikpen 50 unit SUBCUT QNOON 02/02/19 03/23/19 History Humulin R U-500 (Conc) Kwikpen 50 unit SUBCUT QPM 02/02/19 03/23/19 History Humulin R U-500 (Conc) Kwikpen 100 unit SUBCUT QAM 02/02/19 03/23/19 History duloxetine [Cymbalta] 60 mg PO HS 02/02/19 03/23/19 History loratadine 10 mg PO DAILY 02/02/19 03/23/19 History Lactobacillus acidophilus 1,000 mmu cells PO DAILY #30 cap 02/04/19 03/23/19 Rx Prevalite 4 g PO BID@1000,2000 PRN #10 each 02/04/19 02/18/19 Rx Verzenio 150 mg PO BID #0 tab 02/04/19 03/23/19 Rx letrozole 2.5 mg PO DAILY 02/04/19 03/23/19 History ranitidine HCl 300 mg PO QHS #30 cap 02/04/19 03/23/19 Rx Allergies Allergy/AdvReac Type Severity Reaction Status Date / Time bee venom protein (honey bee) Allergy Unknown Unverified 03/23/19 14:18 Latex, Natural Rubber AdvReac Intermediate Unverified 03/23/19 14:18 adhesive tape AdvReac Mild Unverified 03/23/19 14:18 Exam Narrative Exam Narrative: General: Patient appears older than stated age in no acute distress and in fact lethargic with slightly slurred speech though she does attempt to answer questions and appears to be alert and oriented at least to person and place. She appears dry. HEENT: Normocephalic, eyes with pupils equal and reactive to light symmetrically and extraocular intact with sclera anicteric. Oropharynx with dry mucosa and the patient being edentulous, no erythema. Ears normal external without drainage. Neck: Supple without JVD. Lungs: Bronchovesicular breath sounds diffusely with fair aeration, no focalizing rales or rhonchi and no expiratory wheeze. Poor respiratory effort with the patient lying supine. Heart: Tachycardic with regular rhythm and 3/6 systolic murmur left sternal border with no gallop or rub appreciated. Chest: Status post bilateral mastectomy. Back: Stooped posture with tenderness over the mid spine. Abdomen: Large pannus with obese contour, soft and nontender without guarding. Bowel sounds are positive all quadrants and normoactive. Genitalia/rectal: Exam deferred, patient has Mendoza catheter intact with cloudy dark urine in the catheter tubing. Extremities: Nonpitting gross edema lower extremities with hyperpigmented circumferential atrophic skin over both ankles and calf areas without ulceration, no cyanosis but decreased capillary refill and decreased pulses with skin dry and cool over the lower extremities. No mottling. No clubbing. Skin: Hot and dry, pale with chronic skin changes lower extremities as mentioned and dry scaly skin over most of her body. No rashes noted. Neuro: Cranial nerves II through XII appear to be grossly intact, motor decreased diffusely but no focalizing. Patient does have slight flexion contracture of her left foot which appears to be from disuse. Psych: Patient has a flattened affect and appears depressed with slow monotonous tone to her voice. She does not have any delusional thoughts. Remote and recent memory is difficult to assess to the patient's obtundation with her acute illness. Results Imaging Imaging Studies: Exam(s) PROCEDURE INFORMATION: Exam: CT Chest Without Contrast Exam date and time: 03/23/2019 4:10 PM Age: 59 years old Clinical indication: Other: Back pain, malaise, abd distension TECHNIQUE: Imaging protocol: Computed tomography of the chest without contrast. Radiation optimization: All CT scans at this facility use at least one of these dose optimization techniques: automated exposure control; mA and/or kV adjustment per patient size (includes targeted exams where dose is matched to clinical indication); or iterative reconstruction. COMPARISON: CR XR HIP RT COMPLETE AP PELVIS 02/18/2019 11:03 AM FINDINGS: Tubes, catheters and devices: Right chest port terminates in the mid SVC. Lungs: Clear lungs. Respiratory motion limits evaluation for small pulmonary nodules. Pleural space: Unremarkable. No pneumothorax. No pleural effusion. Heart: Cardiomegaly. Small pericardial effusion. Aorta: The aorta demonstrates mild atherosclerotic calcification. Lymph nodes: Unremarkable. No enlarged lymph nodes. Bones/joints: No acute fracture. Vertebral body heights are maintained. Mild degenerative changes of the thoracic spine. Soft tissues: Numerous surgical clips about both anterior chest sparrow. 5.0 x 2.7 cm soft tissue lesion with internal punctate mineralization in the left axilla. IMPRESSION: 1. No acute abnormality in the chest. 2. 5.0 x 2.7 cm soft tissue lesion in the left axilla. Consider further evaluation with ultrasound and tissue sampling if not already performed. PROCEDURE INFORMATION: Exam: CT Abdomen And Pelvis Without Contrast Exam date and time: 03/23/2019 4:10 PM Age: 59 years old Clinical indication: Other: Back pain, malaise, abd distension TECHNIQUE: Imaging protocol: Computed tomography of the abdomen and pelvis without contrast. Radiation optimization: All CT scans at this facility use at least one of these dose optimization techniques: automated exposure control; mA and/or kV adjustment per patient size (includes targeted exams where dose is matched to clinical indication); or iterative reconstruction. COMPARISON: CR XR HIP RT COMPLETE AP PELVIS 02/18/2019 11:03 AM FINDINGS: Liver: The liver is normal. Gallbladder and bile ducts: Distended gallbladder is otherwise unremarkable. Pancreas: The pancreas is normal. Spleen: The spleen is normal. Adrenals: Fat containing left adrenal nodule consistent with benign adenoma or myelolipoma. Kidneys and ureters: The kidneys are normal. Stomach and bowel: Mild diverticulosis is present in the distal colon. Appendix: A normal appendix is identified. Intraperitoneal space: Unremarkable. No free air. No significant fluid collection. Retroperitoneal space: Nonspecific fat stranding and scarring in the right retroperitoneum. Vasculature: The aorta demonstrates mild atherosclerotic calcification. Lymph nodes: Unremarkable. No enlarged lymph nodes. Bladder: Decompressed bladder limits evaluation Reproductive: Unremarkable as visualized. Bones/joints: Irregular sclerotic appearance of the right iliac bone along the right sacroiliac joint. No acute fracture. Soft tissues: Anasarca. IMPRESSION: 1. Sclerotic appearance of the right iliac bone is nonspecific but could represent osseous metastasis in the setting of malignancy. Consider further evaluation with bone scan or PET-CT. 2. Nonspecific fat stranding and scarring in the right retroperitoneum of unclear clinical significance. 3. Mild diverticulosis. Dictated and Authenticated by: Kam Ryan MD. Labs Result diagrams: 03/23/19 14:35 03/23/19 14:35 Labs: Laboratory Results - last 24 hr 03/23/19 03/23/19 03/23/19 14:35 14:35 14:35 WBC 4.84 RBC 3.74 L Hgb 11.6 L Hct 35.7 L MCV 95.5 H MCH 31.0 MCHC 32.5 RDW 16.1 H Plt Count 208 MPV 9.3 Immature Gran % 0.2 Neutrophils % 77.7 Lymphocytes % 15.3 Monocytes % 6.0 Eosinophils % 0.6 Basophils % 0.2 Absolute Neutrophils 3.76 Absolute Lymphocytes 0.74 L Absolute Monocytes 0.29 Absolute Eosinophils 0.03 Absolute Basophils 0.01 D-Dimer Sodium 137 Potassium 4.1 Chloride 99 Carbon Dioxide 27.7 Anion Gap 10.3 BUN 18 Creatinine 2.00 H Estimated GFR/1.73 m2 25.42 Glucose 220 H Lactate 3.6 H* Calcium 8.8 Total Bilirubin 0.5 AST 24 ALT 22 Alkaline Phosphatase 127 H Troponin I < 0.05 NT-Pro-B Natriuret Pep Total Protein 7.8 Albumin 3.1 L Lipase 80 Urine Color Urine Clarity Urine pH Ur Specific Sharon Urine Protein Urine Ketones Urine Blood Urine Nitrite Urine Bilirubin Urine Urobilinogen Ur Leukocyte Esterase Urine RBC Urine WBC Ur Epithelial Cells Urine Crystals Urine Bacteria Urine Mucus Ur Culture Indicated? Urine Glucose 03/23/19 03/23/19 03/23/19 14:35 14:35 14:42 WBC RBC Hgb Hct MCV MCH MCHC RDW Plt Count MPV Immature Gran % Neutrophils % Lymphocytes % Monocytes % Eosinophils % Basophils % Absolute Neutrophils Absolute Lymphocytes Absolute Monocytes Absolute Eosinophils Absolute Basophils D-Dimer 1660 H Sodium Potassium Chloride Carbon Dioxide Anion Gap BUN Creatinine Estimated GFR/1.73 m2 Glucose Lactate Calcium Total Bilirubin AST ALT Alkaline Phosphatase Troponin I NT-Pro-B Natriuret Pep 309 H Total Protein Albumin Lipase Urine Color Yellow Urine Clarity Cloudy Urine pH 5.0 Ur Specific Sharon >= 1.030 H Urine Protein 30 H Urine Ketones Negative Urine Blood Moderate H Urine Nitrite Negative Urine Bilirubin Negative Urine Urobilinogen 0.2 Ur Leukocyte Esterase Small H Urine RBC Not Applicable Urine WBC >50 H Ur Epithelial Cells Not Applicable Urine Crystals Not Applicable Urine Bacteria Packed Urine Mucus Not Applicable Ur Culture Indicated? C&s done as ordered Urine Glucose 250 H 03/23/19 03/23/19 16:08 17:38 WBC RBC Hgb Hct MCV MCH MCHC RDW Plt Count MPV Immature Gran % Neutrophils % Lymphocytes % Monocytes % Eosinophils % Basophils % Absolute Neutrophils Absolute Lymphocytes Absolute Monocytes Absolute Eosinophils Absolute Basophils D-Dimer Sodium Potassium Chloride Carbon Dioxide Anion Gap BUN Creatinine Estimated GFR/1.73 m2 Glucose Lactate 2.7 H* Calcium Total Bilirubin AST ALT Alkaline Phosphatase Troponin I < 0.05 NT-Pro-B Natriuret Pep Total Protein Albumin Lipase Urine Color Urine Clarity Urine pH Ur Specific Sharon Urine Protein Urine Ketones Urine Blood Urine Nitrite Urine Bilirubin Urine Urobilinogen Ur Leukocyte Esterase Urine RBC Urine WBC Ur Epithelial Cells Urine Crystals Urine Bacteria Urine Mucus Ur Culture Indicated? Urine Glucose Last Vital Signs Temp 37.2 C 03/23/19 14:11 Pulse 78 03/23/19 17:41 Resp 18 03/23/19 16:48 BP 202/184 H 03/23/19 17:41 Pulse Ox 95 03/23/19 17:58
[2019-03-23 19:34] LABS: Magnesium 1.5 mg/dL (1.8-2.4)
[2019-03-23] MEDS: Hydrocortisone SOD SUC. 100 MG VIAL IVP (20:24)
[2019-03-23] MEDS: Normal Saline Flush 10 ML SYR IVP ×2 (20:24→23:34)
[2019-03-23] MEDS: PIPERACILLIN/TAZO 2.25 GM in Normal Saline 50 ML IV (21:33)
[2019-03-23 22:24] LABS: BE (Venous) 1.1 mmol/L (-3-3); HCO3 (Venous) 26 mmol/L (22-28); O2 Sat (Venous) 89 % (70-80); TCO2 (Venous) 24 mmol/L (22-29); pCO2 (Venous) 40 mm/Hg (34-47); pH (Venous) 7.42 (7.35-7.45); pO2 (Venous) 54 mm/Hg (28-44)
[2019-03-23 22:24] LABS: FREE T4 1.12 ng/dL (0.76-1.46)
[2019-03-23] MEDS: VANCOMYCIN 2,000 MG in Normal Saline 500 ML 250 MG IV (22:27)
[2019-03-23] MEDS: Atorvastatin 20 MG TAB 40 MG PO (23:32)
[2019-03-23] MEDS: Montelukast 10 MG TAB PO (23:33)
[2019-03-23] MEDS: DULoxetine 30 MG CAP 60 MG PO (23:33)
[2019-03-23] MEDS: Acetaminophen 325 MG TAB 650 MG PO (23:33)
[2019-03-23] MEDS: carBAMazepine 200 MG TAB PO (23:33)
[2019-03-23] MEDS: Pregabalin 50 MG CAP 200 MG PO (23:33)
[2019-03-23] MEDS: guaiFENesin 600 MG TABCR PO (23:33)
[2019-03-23] MEDS: Ferrous Sulfate 325 MG TAB PO (23:33)
[2019-03-23] MEDS: Pantoprazole 40 MG VIAL IVP (23:34)
[2019-03-24] VITALS (65 sets, daily range): BP systolic 82–135; BP diastolic 35–71; PULSE 90–117; RESP 0–26; TEMP 36.5–37.4; O2SAT 79–95
[2019-03-24] MEDS: PIPERACILLIN/TAZO 2.25 GM in Normal Saline 50 ML IV ×4 (03:16→21:32)
[2019-03-24] MEDS: Hydrocortisone SOD SUC. 100 MG VIAL IVP ×2 (04:01→12:13)
[2019-03-24] MEDS: Normal Saline 1,000 ML 250 ML IV ×2 (04:06→08:35)
[2019-03-24] MEDS: Normal Saline Flush 10 ML SYR IVP ×2 (06:23→17:01)
[2019-03-24] MEDS: Levothyroxine 75 MCG TAB 150 MCG PO (06:30)
[2019-03-24 06:52] LABS: HCT 31.2 % (36.0-46.0); HGB 9.7 g/dL (12.0-15.5); Mean Corp. HGB Concentration 31.1 g/dL (32.0-36.0); Mean Corpuscular Hemoglobin 30.2 pg (27.0-33.0); Mean Corpuscular Volume 97.2 fL (80-95); Mean Platelet Volume 9.3 fL (8.0-11.0); Platelet Count 171 x1000/uL (130-400); RBC 3.21 m/cumm (4.00-5.20); RBC Distribution Width 16.3 % (11.7-14.6); White Blood Cell Count 6.36 k/cumm (4.4-10.8)
[2019-03-24 07:09] LABS: ALT 18 U/L (14-59); AST 27 U/L (15-37); Albumin 2.5 g/dL (3.4-5.0); Alkaline Phosphatase 100 U/L (46-116); Anion Gap 9.4 mmol/L (3-11); BUN 24 mg/dL (7-18); Bilirubin, Total 0.7 mg/dL (0.2-1.0); CO2 25.6 mmol/L (21.0-32.0); CREATININE 2.13 mg/dL (0.55-1.02); Calcium 7.8 mg/dL (8.5-10.1); Chloride 102 mmol/L (98-107); Estimated GFR 23.63 (mL/min/1.73m2); Glucose 276 mg/dL (74-106); Sodium 137 mmol/L (136-145); Total Protein 6.8 g/dL (6.4-8.2)
--- NOTE | 2019-03-24 08:18 | W.PM.PROGNOT ---
Date of Service Date of service: 03/24/19 Time of Service: 14:19 Assessment and Plan Assessment and plan (1) Urinary tract infection: Status: Acute Assessment and plan: Present on admission. Urine C&S mixed - GNR, mixed gram positive beverly. Await speciation. Continue empiric vancomycin/zosyn (day 2). D/c vancomycin tomorrow pending results of urine culture. 2/4 blood cultures on admission were positive but for 2 different organisms and are likely contaminated. Qualifiers: Urinary tract infection type: site unspecified Hematuria presence: without hematuria Qualified Code(s): N39.0 - Urinary tract infection, site not specified (2) Adrenal insufficiency: Status: Chronic Assessment and plan: Improved BP's indicate resolution of adrenal crisis. Start stress dose steroid taper. (3) Toxic metabolic encephalopathy: Status: Resolved Assessment and plan: Likely due to UTI. Completely resolved, per patient, daughter. I am also familiar with the patient - she is at her baseline. Monitor mental status. (4) Obstructive sleep apnea: Status: Chronic Assessment and plan: Provide HS O2. Suspicion for PE low. (5) Acute kidney injury superimposed on chronic kidney disease: Status: Acute Assessment and plan: Likely due to sepsis/hypoperfused state of adrenal insufficiency. Recheck chemistry pending - we expect improvement in Cr. Would like to d/c IVF as soon as possible - but would like to see Cr improved first. (6) Positive blood cultures: Status: Acute Assessment and plan: As above - likely contaminant. (7) Discharge planning issues: Status: Acute Assessment and plan: Full code. Likely discharge home within the next 48-72 hours. (8) DVT prophylaxis: Status: Acute Assessment and plan: Heparin SC. Also, will rule out current DVT with venous dopplers BLE's. Subjective Subjective Interval history since last seen: Per daughter, the patient is back to baseline mentally. The patient states that she can't remember whether or not she had any UTI symptoms because she was confused, and UTI's usually make her confused. She does not feel them. She denies diarrhea, dizziness, chest pain, states her breathing is at baseline. Denies n/v. States her legs are more swollen than her normal. Afebrile. On 3L overnight. On room air currently. HR now low 100's. last BP 104/52. FBG 225 this am. Exam Narrative Exam Narrative: General: Very pleasant obese female, A&OX3, laying in bed on her side at the time of my exam, getting cleaned up HEENT: EOMI, MMM Heart: RRR, mildly tachycardic Lungs: CTAB Abdomen: soft, obese Extremities: 1+ BLE edema, trace pedal pulses, venous stasis dermatitis; RLE wound nearly completely healed Objective Objective Clinical Data: Abnormal lab results 03/23/19 03/23/19 03/23/19 Range/Units 14:35 14:35 14:35 RBC 3.74 L (4.00-5.20) m/cumm Hgb 11.6 L (12.0-15.5) g/dL Hct 35.7 L (36.0-46.0) % MCV 95.5 H (80-95) fL MCHC (32.0-36.0) g/dL RDW 16.1 H (11.7-14.6) % Absolute Lymphocytes 0.74 L (1.2-3.4) k/cumm D-Dimer (<500) ng/mlFEU VBG pO2 (28-44) mm/Hg VBG O2 Saturation (70-80) % BUN (7-18) mg/dL Creatinine 2.00 H (0.55-1.02) mg/dL Glucose 220 H (74-106) mg/dL Lactate 3.6 H* (0.6-1.4) mmol/L Calcium (8.5-10.1) mg/dL Magnesium (1.8-2.4) mg/dL Alkaline Phosphatase 127 H (46-116) U/L NT-Pro-B Natriuret Pep (<300) pg/mL Albumin 3.1 L (3.4-5.0) g/dL TSH (0.36-3.74) uIU/mL Ur Specific [place] (1.005-1.025) Urine Protein (Negative) mg/dL Urine Blood (Negative) Ur Leukocyte Esterase (Negative) Urine WBC (0-5) HPF Urine Glucose (Negative) mg/dL 03/23/19 03/23/19 03/23/19 Range/Units 14:35 14:35 14:42 RBC (4.00-5.20) m/cumm Hgb (12.0-15.5) g/dL Hct (36.0-46.0) % MCV (80-95) fL MCHC (32.0-36.0) g/dL RDW (11.7-14.6) % Absolute Lymphocytes (1.2-3.4) k/cumm D-Dimer 1660 H (<500) ng/mlFEU VBG pO2 (28-44) mm/Hg VBG O2 Saturation (70-80) % BUN (7-18) mg/dL Creatinine (0.55-1.02) mg/dL Glucose (74-106) mg/dL Lactate (0.6-1.4) mmol/L Calcium (8.5-10.1) mg/dL Magnesium (1.8-2.4) mg/dL Alkaline Phosphatase (46-116) U/L NT-Pro-B Natriuret Pep 309 H (<300) pg/mL Albumin (3.4-5.0) g/dL TSH (0.36-3.74) uIU/mL Ur Specific [place] >= 1.030 H (1.005-1.025) Urine Protein 30 H (Negative) mg/dL Urine Blood Moderate H (Negative) Ur Leukocyte Esterase Small H (Negative) Urine WBC >50 H (0-5) HPF Urine Glucose 250 H (Negative) mg/dL 03/23/19 03/23/19 03/23/19 Range/Units 16:08 18:43 22:17 RBC (4.00-5.20) m/cumm Hgb (12.0-15.5) g/dL Hct (36.0-46.0) % MCV (80-95) fL MCHC (32.0-36.0) g/dL RDW (11.7-14.6) % Absolute Lymphocytes (1.2-3.4) k/cumm D-Dimer (<500) ng/mlFEU VBG pO2 54 H (28-44) mm/Hg VBG O2 Saturation 89 H (70-80) % BUN (7-18) mg/dL Creatinine (0.55-1.02) mg/dL Glucose (74-106) mg/dL Lactate 2.7 H* (0.6-1.4) mmol/L Calcium (8.5-10.1) mg/dL Magnesium 1.5 L (1.8-2.4) mg/dL Alkaline Phosphatase (46-116) U/L NT-Pro-B Natriuret Pep (<300) pg/mL Albumin (3.4-5.0) g/dL TSH 0.10 L (0.36-3.74) uIU/mL Ur Specific [place] (1.005-1.025) Urine Protein (Negative) mg/dL Urine Blood (Negative) Ur Leukocyte Esterase (Negative) Urine WBC (0-5) HPF Urine Glucose (Negative) mg/dL 03/24/19 03/24/19 Range/Units 06:30 06:30 RBC 3.21 L (4.00-5.20) m/cumm Hgb 9.7 L (12.0-15.5) g/dL Hct 31.2 L (36.0-46.0) % MCV 97.2 H (80-95) fL MCHC 31.1 L (32.0-36.0) g/dL RDW 16.3 H (11.7-14.6) % Absolute Lymphocytes (1.2-3.4) k/cumm D-Dimer (<500) ng/mlFEU VBG pO2 (28-44) mm/Hg VBG O2 Saturation (70-80) % BUN 24 H (7-18) mg/dL Creatinine 2.13 H (0.55-1.02) mg/dL Glucose 276 H (74-106) mg/dL Lactate (0.6-1.4) mmol/L Calcium 7.8 L (8.5-10.1) mg/dL Magnesium (1.8-2.4) mg/dL Alkaline Phosphatase (46-116) U/L NT-Pro-B Natriuret Pep (<300) pg/mL Albumin 2.5 L (3.4-5.0) g/dL TSH (0.36-3.74) uIU/mL Ur Specific [place] (1.005-1.025) Urine Protein (Negative) mg/dL Urine Blood (Negative) Ur Leukocyte Esterase (Negative) Urine WBC (0-5) HPF Urine Glucose (Negative) mg/dL Vital Signs Temperature 36.6 C 03/24/19 07:50 Temperature Source Temporal Artery Scan 03/24/19 07:50 Pulse 104 H 01/22/20 07:50 Pulse 104 H 03/24/19 05:01 Respiratory Rate 22 03/24/19 07:50 Respiratory Effort Non-Labored 03/24/19 07:50 Respiratory Depth Normal 03/24/19 07:50 Respiratory Pattern Normal 03/24/19 07:50 Blood Pressure 104/52 L 03/24/19 07:50 Blood Pressure Mean 69 03/24/19 07:50 Blood Pressure Position Supine 03/24/19 07:50 Pulse Oximetry 94 L 03/24/19 07:50 Oxygen Delivery Method Room Air 03/24/19 07:50 Oxygen Flow Rate 3 03/24/19 07:50 Pain Level 0 03/24/19 07:50 Comment 03/23/19 20:01 Intake & Output 03/23/19 03/23/19 03/24/19 11:59 23:59 11:59 Intake Total 2333.333 / 2333.333 740 / 740 Output Total 300 / 300 Balance 2333.333 / 2333.333 440 / 440 Weight 154.6 kg Intake: IV 2333.333 / 2333.333 500 / 500 Oral 240 / 240 Output: Urine 300 / 300 Other: Urine Color Light Giselle Yellow Titus Urine Appearance Cloudy Clear Comment Mendoza in place, patient has baseline urinary incontinence Stool Size Moderate Stool Characteristics Soft Formed Brown Emesis Description Undigested Food Bile Voiding Methods Indwelling Catheter Laboratory Results WBC 6.36 k/cumm (4.4-10.8) D 03/24/19 06:30 RBC 3.21 m/cumm (4.00-5.20) L 03/24/19 06:30 Hgb 9.7 g/dL (12.0-15.5) L 03/24/19 06:30 Hct 31.2 % (36.0-46.0) L 03/24/19 06:30 MCV 97.2 fL (80-95) H 03/24/19 06:30 MCH 30.2 pg (27.0-33.0) 03/24/19 06:30 MCHC 31.1 g/dL (32.0-36.0) L 03/24/19 06:30 RDW 16.3 % (11.7-14.6) H 03/24/19 06:30 Plt Count 171 x1000/uL (130-400) 03/24/19 06:30 MPV 9.3 fL (8.0-11.0) 03/24/19 06:30 Immature Gran % 0.2 % 03/23/19 14:35 Neutrophils % 77.7 03/23/19 14:35 Lymphocytes % 15.3 03/23/19 14:35 Monocytes % 6.0 03/23/19 14:35 Eosinophils % 0.6 03/23/19 14:35 Basophils % 0.2 03/23/19 14:35 Absolute Neutrophils 3.76 k/cumm (1.2-6.7) 03/23/19 14:35 Absolute Lymphocytes 0.74 k/cumm (1.2-3.4) L 03/23/19 14:35 Absolute Monocytes 0.29 k/cumm (0.11-0.7) 03/23/19 14:35 Absolute Eosinophils 0.03 k/cumm (0.0-0.7) 03/23/19 14:35 Absolute Basophils 0.01 k/cumm (0.0-0.2) 03/23/19 14:35 D-Dimer 1660 ng/mlFEU (<500) H 03/23/19 14:35 VBG pH 7.42 (7.35-7.45) 03/23/19 22:17 VBG pCO2 40 mm/Hg (34-47) 03/23/19 22:17 VBG pO2 54 mm/Hg (28-44) H 03/23/19 22:17 VBG HCO3 26 mmol/L (22-28) 03/23/19 22:17 VBG Total CO2 24 mmol/L (22-29) 03/23/19 22:17 VBG O2 Saturation 89 % (70-80) H 03/23/19 22:17 VBG Base Excess 1.1 mmol/L (-3-3) 03/23/19 22:17 Sodium 137 mmol/L (136-145) 03/24/19 06:30 Potassium 5.0 mmol/L (3.5-5.1) D 03/24/19 06:30 Chloride 102 mmol/L (98-107) 03/24/19 06:30 Carbon Dioxide 25.6 mmol/L (21.0-32.0) 03/24/19 06:30 Anion Gap 9.4 mmol/L (3-11) 03/24/19 06:30 BUN 24 mg/dL (7-18) H 03/24/19 06:30 Creatinine 2.13 mg/dL (0.55-1.02) H 03/24/19 06:30 Estimated GFR/1.73 m2 23.63 (mL/min/1.73m2) 03/24/19 06:30 Glucose 276 mg/dL (74-106) H 03/24/19 06:30 Lactate 2.7 mmol/L (0.6-1.4) H* 03/23/19 16:08 Calcium 7.8 mg/dL (8.5-10.1) L 03/24/19 06:30 Magnesium 1.5 mg/dL (1.8-2.4) L 03/23/19 18:43 Total Bilirubin 0.7 mg/dL (0.2-1.0) 03/24/19 06:30 AST 27 U/L (15-37) 03/24/19 06:30 ALT 18 U/L (14-59) 03/24/19 06:30 Alkaline Phosphatase 100 U/L (46-116) 03/24/19 06:30 Troponin I < 0.05 ng/Ml (<0.06) 03/23/19 17:38 NT-Pro-B Natriuret Pep 309 pg/mL (<300) H 03/23/19 14:35 Total Protein 6.8 g/dL (6.4-8.2) 03/24/19 06:30 Albumin 2.5 g/dL (3.4-5.0) L 03/24/19 06:30 Lipase 80 U/L (73-393) 03/23/19 14:35 TSH 0.10 uIU/mL (0.36-3.74) L 03/23/19 18:43 Free T4 1.12 ng/dL (0.76-1.46) 03/23/19 18:43 Urine Color Yellow (Yellow) 03/23/19 14:42 Urine Clarity Cloudy (Clear) 03/23/19 14:42 Urine pH 5.0 (5-8) 03/23/19 14:42 Ur Specific [place] >= 1.030 (1.005-1.025) H 03/23/19 14:42 Urine Protein 30 mg/dL (Negative) H 03/23/19 14:42 Urine Ketones Negative mg/dL (Negative) 03/23/19 14:42 Urine Blood Moderate (Negative) H 03/23/19 14:42 Urine Nitrite Negative (Negative) 03/23/19 14:42 Urine Bilirubin Negative (Negative) 03/23/19 14:42 Urine Urobilinogen 0.2 EU/dL (Up TO 0.2) 03/23/19 14:42 Ur Leukocyte Esterase Small (Negative) H 03/23/19 14:42 Urine RBC Not Applicable 03/23/19 14:42 Urine WBC >50 HPF (0-5) H 03/23/19 14:42 Ur Epithelial Cells Not Applicable 03/23/19 14:42 Urine Crystals Not Applicable 03/23/19 14:42 Urine Bacteria Packed HPF (Negative) 03/23/19 14:42 Urine Mucus Not Applicable 03/23/19 14:42 Ur Culture Indicated? C&s done as ordered 03/23/19 14:42 Urine Glucose 250 mg/dL (Negative) H 03/23/19 14:42
[2019-03-24] MEDS: Insulin Aspart 300 UNITS/3 ML PEN SC ×4 (08:36→22:13)
[2019-03-24] MEDS: carBAMazepine 200 MG TAB PO ×2 (08:38→21:59)
[2019-03-24] MEDS: Pregabalin 50 MG CAP 200 MG PO ×3 (08:38→22:00)
[2019-03-24] MEDS: Ferrous Sulfate 325 MG TAB PO ×3 (08:39→21:59)
[2019-03-24] MEDS: Folic Acid 1 MG TAB PO (08:39)
[2019-03-24] MEDS: guaiFENesin 600 MG TABCR PO ×2 (08:40→21:59)
[2019-03-24] MEDS: Cyanocobalamin 500 MCG TAB 1000 MCG PO (08:40)
[2019-03-24] MEDS: Aspirin E.C. 81 MG TABEC PO (08:40)
[2019-03-24] MEDS: Loratidine 10 MG TAB PO (08:40)
[2019-03-24] MEDS: Letrozole 2.5 MG TAB PO (08:40)
[2019-03-24 09:01] LABS: Magnesium 1.6 mg/dL (1.8-2.4); TSH 0.05 uIU/mL (0.36-3.74)
[2019-03-24] MEDS: Budesonide/Formoterol 160/4.5 6 GM 60 PUFF INH IH ×2 (09:21→22:01)
[2019-03-24 10:38] LABS: Lactate 1.2 mmol/L (0.6-1.4)
--- NOTE | 2019-03-24 11:11 | PHARADMIT ---
Addendum entered by Thee Edwards III 03/25/19 16:37: Pharmacy Note Subjective Here for UTI & SIERRA, Vancomycin & Zosyn continue. Had Palliative consult yesterday, ordered one time Fentanyl Patch which comes off in 2 days. Harris need new order to continue. Objective VS-OK SCr-1.40 FSBS-223 H&H-down (dilutional ?) IV fluids dC'd, Assessment MD weaning steroids, Spiriva (home med ordered) Uses U-500 reguar insulin Plan Patient transferred to [facility] today. Her Home meds (Trulicity & Humalin our in our fridge) Vanco trough not ordered yet. Original Note: Admission Pharmacy Clinical Review UTI, ACUTE KIDNEY INJURY (hx of C-diff) Code Status Full Code Current Weight Wgt-154.6 kg Renally Cleared and Narrow Therapeutic Index Meds CrCl~ 28.3 mL/min Meds-OK QTc Value / Action Taken QTc-456 (in Jan-2019 BP Control, Fever BP-104/52 Tmax- 38.2C Electrolytes reviewed Na- 137 K+5.0 Mag-1.6 DVT Prophylaxis ASA, Opiate Usage / Scheduled Bowel Regimen Ordered No Yes Plt/SCr for Heparin / Enoxaparin Plts- 171 SCr-2.13 INR for Warfarin na H/H stable, WBC/Bands H&H- 9.7/31.2 WBC- 6.36 Antibiotic appropriateness Zosyn, Vancomycin Cultures and Sensitivities Blood- gram-neg Db&Cocci, Repeat Bld & Urine pending Surgical ABX d/c within 24 hr na DM control / Insulin Dosing BG-276 Aspart Heart Failure (Check EF%) (MCKENNA's, B-Block, Diuretics) IV to PO Switch none Home Meds Reviewed YesNo Home Meds Not Ordered Prevalite, Zyrtec, Singulair, Ranitidine, Spiriva Comments Patient's own Verzeio, Trulicity, Humulin-R in Pharmacy Fridge
--- NOTE | 2019-03-24 13:31 | W.NUTCONSULT ---
Date of service: 03/24/19 Time of Service: 13:31 Nutritional Consult ASSESSMENT: 59 year old female admitted with UTI, sepsis, SIERRA. PMH: IDDM, morbid obesity, CKD, metastatic breast cancer (receiving treatment), adrenal insufficiency. DM consult pending as blood sugars elevated and poorly controlled. Poorly controlled diabetes and BMI of 50 puts Candace at high nutritional risk, CDE to follow and educate. NUTRITIONAL DIAGNOSIS: morbid obesity INTERVENTION: DM consult pending MONITORING AND EVALUATION: po intake weights labs Time Spent in Nutritional Counseling and Treatment: 0 time spent face to face
[2019-03-24 14:48] LABS: Anion Gap 8.2 mmol/L (3-11); BUN 25 mg/dL (7-18); CO2 24.8 mmol/L (21.0-32.0); Calcium 7.6 mg/dL (8.5-10.1); Chloride 101 mmol/L (98-107); Estimated GFR 26.96 (mL/min/1.73m2); Glucose 318 mg/dL (74-106); Potassium 4.6 mmol/L (3.5-5.1); Sodium 134 mmol/L (136-145)
--- NOTE | 2019-03-24 14:57 | DI.US_ITS ---
EXAM: US EXTREMITY VENOUS BI CLINICAL HISTORY: BLE EDEMA, CONCERN FOR DVT TECHNIQUE: Ultrasound performed using standard protocol. COMPARISON: No exams were available for comparison FINDINGS: The examination was extremely difficult due to the patient's body habitus. On the right, the femoral vein was visualized and shows normal blood flow and augmentation. On the left, the femoral vein and posterior tibialis veins were visualized and show augmentation and color flow. IMPRESSION: 1. Severely limited examination due to patient body habitus. 2. The visualized vessels show color flow and augmentation. 3. The findings were discussed with Dr. Reno on the date of the examination.
[2019-03-24] MEDS: MAGNESIUM SULFATE 2 GM/50 ML BAG IVPB (15:04)
[2019-03-24] MEDS: Acetaminophen 325 MG TAB 650 MG PO (15:52)
--- NOTE | 2019-03-24 16:18 | PDOC.CMIN ---
- If Service Date Differs Date of service: 03/24/19 Time of Service: 16:18 Care Management Initial Assess REASON FOR HOSPITALIZATION:: UTI PAST MEDICAL HISTORY/PAST SURGICAL HISTORY:: Medical History . C. difficile diarrhea (Acute). Carpal tunnel syndrome (Acute). Chronic adrenal insufficiency (Acute). Chronic pain (Chronic). Chronic respiratory failure with hypoxia (Chronic). Chronic venous stasis dermatitis (Chronic). COPD (chronic obstructive pulmonary disease) (Chronic). On nocturnal oxygen - 2L prn. Depression (Chronic). Diabetes mellitus (Chronic). Insulin dependent. Diverticulosis (Acute). Dyslipidemia (Chronic). History of breast cancer (Chronic). metastatic, with lymphatic spread and bone mets. Hyperlipidemia (Acute). Hypopituitarism (Chronic). Hypothyroidism (Chronic). Influenza B (Acute). Iron deficiency anemia (Acute). Metastatic breast cancer (Acute). Obesity (Chronic). Obstructive sleep apnea (Chronic). per [facility] records. Pneumonia (Acute). Restless leg syndrome (Acute). Spinal stenosis (Acute). Surgical History . H/O bilateral mastectomy (Acute). H/O colonoscopy with polypectomy (Acute). History of carpal tunnel release of both wrists (Acute). Port-A-Cath in place (Acute). Status post transsphenoidal pituitary resection (Acute) PREVIOUS FUNCTIONAL STATUS/SOCIAL/FAMILY SUPPORTS:: Candace lives at home with her daughter in [facility]. She is disabled. She has 2 daughters locally. She receives [facility] highest needs, and her daughter Kiki is her primary provider. She uses a walker for ambulation, and a wheeled walker for distance. She is dependent on her daughter for transportation to and from appointments. Her primary care is in [facility]. CURRENT FUNCTIONAL STATUS:: Candace was sitting up in bed when CM met with her. She stated that she got sick Friday morning when she developed a fever and came to the ED. Candace shared that since her last admission she has had a PET scan that showed cancerous lesions in her hip, shoulders, neck, back and liver. She is not planning to have radiation therapy but may have chemotherapy. Her Oncologist is Dr.Leslie Walden in [place] ([phone]). Candace stated that she is determined to beat the devl (cancer). ADVANCE DIRECTIVES:: Candace wants to complete this admission. CM provided copy of forms and will assist with completion if requested. Has patient been provided with information about the portal?: Yes Did the patient sign up for the portal?: No CODE STATUS:: Full Code INSURANCE COVERAGE / FINANCIAL ISSUES:: Medicare. Medicaid CURRENT HOME/COMMUNITY SERVICES/EQUIPMENT:: walker, wheelchair. was receiving nursing but is soon to be discharged from service PRIMARY CARE PHYSICIAN:: Jan Coleman POTENTIAL DISCHARGE NEEDS:: Follow up with discharge plan, PCP and Oncologist. PATIENT/FAMILY EDUCATION NEEDS:: Discharge plan, limitations, follow up plan and Ask Me Three. TRANSPORTATION:: via private vehicle with daughter PLAN:: Candace will likely be discharged home with new home health services. She will need a new bariatric walker. Candace will transport via private vehicle with her daughter.CM will continue to provide support to patient, family and discharge planning needs.
[2019-03-24] MEDS: fentaNYL 25 MCG PATCH TD (17:00)
[2019-03-24] MEDS: HYDROmorphone 2 MG/ML VIAL IVP (17:00)
--- NOTE | 2019-03-24 17:19 | NT_ITS ---
Date of service: 03/24/19 Time of Service: 17:19 PT Notes Visit Reasons: UTI, ACUTE KIDNEY INJURY Nurse was in patient's room upon arrival of PT who states patient is in significant pain and fatigue and just had a palliative visit with Dr. Royal. Patient refused today's offer at PT assessment as well stating that she needs to rest. Another attempt will be made at evaluation tomorrow morning. Thank you very much for this referral. Allie Miguel PT, DPT, CLT [facility] Inpatient [facility] at [facility]
[2019-03-24] MEDS: Hydrocortisone SOD SUC. 100 MG VIAL 50 MG IVP (18:25)
--- NOTE | 2019-03-24 20:21 | PCNE_ITS ---
Date of service: 03/24/19 History of Present Illness History of Present Illness Chief Complaint: uncontrolled pain, breast cancer mets to bone Narrative: Candace is a 59 severely morbidly obese woman (BMI >50) diagnosed with bilateral breast cancer, s/p bilateral mastectomies, under the care of Dr Walden ([phone]), oncologist. She reports she was diagnosed 2 or 3 years ago. She knows her cancer has spread to her bones and liver and lymph nodes. She is having more pain in the last month. She has had 3 admissions to [facility] recently: on 02/02, 02/18 and now on 03/23. She used to get her inpatient care at [facility]. She lives with her daughter Bhargavi in [place]. However, she now feels more comfortable coming to [facility]. She was admitted with SIERRA on CKD, + blood cultures, UTI and toxic metabolic encephalopathy with delirium. She has cleared since admission. She is in 9/10 pain during most of my visit, despite first treatment with tylenol and then with hydromorphone. She says her pain makes it hard for her to think. Nursing and Care Management report that the family requested palliative care services and want help with AD/COLST, however, given Candace's level of pain, this appears too taxing to address today. Consults Consult date: 03/24/19 Requesting physician: Sheyla Reno Assessment and Plan Assessment and plan (1) Right hip pain: Status: Acute Assessment and plan: Multiple areas of bone pain, but right hip is worst. Not responding to tylenol. Given her CKD, morphine is not the best choice of mary ann n med due to toxic metabolites. Explained to her that fentanyl patches and methadone are the best options for people with CKD. She chose to try fentanyl patches. Given her body habitus, I am starting her on 25 mcg rather than the usual 12 mcg. Certainly, we can back down if needed, but she explained that her pain has been uncontrolled for more than one month, to the point that she is nearly bedridden due to pain. Her goal is get up and moving again. (2) Metastatic breast cancer: Status: Chronic Assessment and plan: Put a call in to Dr Walden to let him know I was starting Candace on fentanyl patch. Did not speak to him directly. I am concerned that increase in pain indicates progression of disease. (3) Physical deconditioning: Status: Chronic Assessment and plan: Candace has asked for a new WC, as the one she was given is in rough shape, hard for her to maneuver. I let Care Management know of her request. (4) Dehydration: Status: Resolved Assessment and plan: Has IVF running. Managed by hospitalist Dr Reno. (5) Weakness: Status: Acute (6) Uncontrolled pain: Status: Chronic Assessment and plan: Ordered 2 mg IVP of hydromorphone x [address] fentanyl patch 25 mcg as soon as it arrives on floor. She was too uncomfortable to day to have a detailed conversation about her CODE status and AD. Asked CM to see if they could set up a meeting on Friday afternoon with her daughter Bhargavi present, too, to fill out COLST, etc. Review of Systems Constitutional Constitutional: Reports body ache(s), Reports fatigue, Reports snoring and Reports weakness Eyes Eyes: Reports dry eyes and Reports requires corrective lenses ENT Ears, Nose, Mouth, and Throat: Reports dizziness, Reports dry mouth, Reports neck pain, Reports disequilibrium and Reports sore throat Cardiovascular Cardiovascular: Reports rapid heart rate, Reports lightheadedness, Reports palpitations and Reports dyspnea on exertion Respiratory Respiratory: Reports dyspnea on exertion and Reports snoring Gastrointestinal Gastrointestinal: Reports constipation and Reports early satiety Genitourinary Genitourinary: Reports urinary incontinence Comments: reports she hit menopause at 24 or 29 years old Musculoskeletal Musculoskeletal: Reports abnormal gait (she reports; was in ICU bed during my visit), Reports back pain, Reports myalgias, Reports arthralgias, Reports limited range of motion, Reports muscle weakness and Reports neck pain Comments: hips and neck and shoulder hurt the most today has not had her pain controlled in a long time --since before Integumentary/Breasts Skin/Breast: Reports breast pain (left axillary pain, has known tumor burden there) and Reports other (bilateral mastectomies) Neurologic Neurologic: Reports abnormal gait (she reports; was in ICU bed during my visit), Reports dizziness, Reports disequilibrium and Reports weakness Psychiatric Psychiatric: Reports abnormal sleep pattern, Reports difficulty concentrating (pain is very distracting), Reports hopelessness and Reports anhedonia Endocrine Endocrine: Reports fatigue, Reports heat intolerance and Reports palpitations Hematologic/Lymphatic Hematologic/Lymphatic: Reports easy bruising [facility] Medical History (Updated 03/24/19 @ 20:59 by Nevaeh Royal MD) C. difficile diarrhea (Acute) Carpal tunnel syndrome (Acute) Chronic adrenal insufficiency (Acute) Chronic pain (Chronic) Chronic respiratory failure with hypoxia (Chronic) Chronic venous stasis dermatitis (Chronic) COPD (chronic obstructive pulmonary disease) (Chronic) On nocturnal oxygen - 2L prn Depression (Chronic) Diabetes mellitus (Chronic) Insulin dependent Diverticulosis (Acute) Dyslipidemia (Chronic) Goals of care, counseling/discussion (Acute) History of breast cancer (Chronic) metastatic, with lymphatic spread and bone mets Hyperlipidemia (Acute) Hypopituitarism (Chronic) Hypothyroidism (Chronic) Influenza B (Acute) Iron deficiency anemia (Acute) Metastatic breast cancer (Chronic) Obesity (Chronic) Obstructive sleep apnea (Chronic) per [facility] records Palliative care patient (Acute) Pneumonia (Acute) Restless leg syndrome (Acute) Spinal stenosis (Acute) Uncontrolled pain (Chronic) Surgical History H/O bilateral mastectomy (Acute) H/O colonoscopy with polypectomy (Acute) History of carpal tunnel release of both wrists (Acute) Port-A-Cath in place (Acute) Status post transsphenoidal pituitary resection (Acute) Family History (Updated 03/24/19 @ 20:43 by Nevaeh Royal MD) Father , age 83 from complications of diabetes Prostate cancer Diabetes Mother , age 79 from complications of Crohn's disease and colitis Crohn's disease Colitis Daughter No problems noted. Daughter No problems noted. Brother No problems noted. Sister Diabetes Obesity Sister No problems noted. Sister No problems noted. Sister No problems noted. Social History (Updated 03/24/19 @ 20:47 by Nevaeh Royal MD) Smoking/Tobacco Use Status: Former Tobacco Use Alcohol Intake: never Substance use type: does not use Caregiver/Support person: Yes Household members: children Number of Children: 2 Communication Needs: Hard of Hearing and Corrective Lenses Education Level: middle school Do you need help understanding health information?: Always current occupation: on disability What is your relationship status?: How often do you talk on the phone with friends or family?: once per week How often do you get together with friends or relatives?: three or more times per week Panel score (0-1 are the most socially isolated patients): 1 What type of physical activity do you participate in: none, sedentary lifestyle, wheelchair-bound and additional Details: needs a new wheelchair, cannot walk far, just a few steps Special pedro pablo needs: No Do you feel safe at home: Yes Do you feel safe in your relationship?: Yes Additional Social history: , with 2 children. She is not working and on disability. Has a history of tobacco, quit in 1992. Reports rare use of alcohol only. Lives with daughter. Uses a walker to ambulate. Hard to do recently, depending more on WC. In a lot of pain. Recent scans show progression of breast cancer. Exam Const General: in distress (pain) moderate and ill appearing Nutritional Appearance: obese Orientation: alert, awake and oriented x3 HENMT Head: normocephalic and atraumatic Ears: hearing grossly normal bilaterally General nose exam: external nose normal Face and sinus: normal facial exam, face symmetric, dry mucous membranes and other (furrowed brow, indicative of pain, most of the time) Eyes Conjunctivae: conjunctivae normal Sclera: sclerae normal Neck Neck: tender and no JVD Chest Breast inspection: abnormal inspection of the breast (bilateral mastectomies) Breast palpation: axillary lymphadenopathy (left) Resp Effort & Inspection: normal respiratory effort and able to speak in complete sentences Auscultation: clear to auscultation bilaterally and diminished lung sounds Cardio Rate: tachycardic Rhythm: regular rhythm Heart Sounds: S1 normal and S2 normal GI Inspection: obesity and striae Palpation: firm Auscultation: normal bowel sounds Back/Spine/Pelvis Cervical Spine: cervical spasm and cervical spinal tenderness Skin General skin exam: dry skin, pallor and scars Hair: general thinning Neuro General: alert, awake and oriented x3 Cognition: normal cognition Speech: speech normal Motor: strength abnormal Extrem General: edema Psych Appearance: grossly normal Mental Status: mental status grossly normal Speech and Movement: speech and movement normal Mood: dysthymic mood (due to physical discomfort, it appeared) Affect: blunted Attitude: cooperative Thought Process: impoverished (low educational level, but appears to understand a fair amount) Insight: fair Judgment: fair Results Last Vital Signs Temp 99.3 F 03/24/19 16:36 Pulse 90 03/24/19 16:36 Resp 21 03/24/19 14:00 BP 117/62 03/24/19 16:35 Pulse Ox 90 L 03/24/19 16:35 Labs Result diagrams: 03/24/19 06:30 03/24/19 14:25 Labs: Laboratory Results - last 24 hr 03/23/19 03/23/19 03/24/19 18:43 22:17 06:30 WBC RBC Hgb Hct MCV MCH MCHC RDW Plt Count MPV VBG pH 7.42 VBG pCO2 40 VBG pO2 54 H VBG HCO3 26 VBG Total CO2 24 VBG O2 Saturation 89 H VBG Base Excess 1.1 Sodium 137 Potassium 5.0 D Chloride 102 Carbon Dioxide 25.6 Anion Gap 9.4 BUN 24 H Creatinine 2.13 H Estimated GFR/1.73 m2 23.63 Glucose 276 H Lactate Calcium 7.8 L Magnesium 1.6 L Total Bilirubin 0.7 AST 27 ALT 18 Alkaline Phosphatase 100 Total Protein 6.8 Albumin 2.5 L TSH 0.05 L Free T4 1.12 03/24/19 03/24/19 03/24/19 06:30 10:30 14:25 WBC 6.36 D RBC 3.21 L Hgb 9.7 L Hct 31.2 L MCV 97.2 H MCH 30.2 MCHC 31.1 L RDW 16.3 H Plt Count 171 MPV 9.3 VBG pH VBG pCO2 VBG pO2 VBG HCO3 VBG Total CO2 VBG O2 Saturation VBG Base Excess Sodium 134 L Potassium 4.6 Chloride 101 Carbon Dioxide 24.8 Anion Gap 8.2 BUN 25 H Creatinine 1.90 H Estimated GFR/1.73 m2 26.96 Glucose 318 H Lactate 1.2 Calcium 7.6 L Magnesium Total Bilirubin AST ALT Alkaline Phosphatase Total Protein Albumin TSH Free T4
[2019-03-24] MEDS: DULoxetine 30 MG CAP 60 MG PO (21:59)
[2019-03-24] MEDS: Atorvastatin 20 MG TAB 40 MG PO (21:59)
[2019-03-24] MEDS: VANCOMYCIN 1,500 MG in Normal Saline 250 ML 166.667 MG IVPB (22:00)
[2019-03-24] MEDS: Heparin 5,000 UNITS/ML VIAL 5000 UNITS SC (22:00)
[2019-03-24] MEDS: Montelukast 10 MG TAB PO (22:00)
[2019-03-25] VITALS (9 sets, daily range): BP systolic 84–133; BP diastolic 51–76; PULSE 72–100; RESP 16–22; TEMP 36.3–37.2; O2SAT 92–97
[2019-03-25] MEDS: PIPERACILLIN/TAZO 2.25 GM in Normal Saline 50 ML IV ×4 (00:58→20:42)
[2019-03-25] MEDS: Hydrocortisone SOD SUC. 100 MG VIAL 50 MG IVP ×4 (00:58→18:09)
[2019-03-25] MEDS: Levothyroxine 150 MCG TAB PO (06:10)
[2019-03-25] MEDS: Heparin 5,000 UNITS/ML VIAL 5000 UNITS SC ×3 (06:10→21:55)
[2019-03-25] MEDS: Normal Saline Flush 10 ML SYR IVP ×4 (06:10→20:42)
[2019-03-25 07:07] LABS: Abs Immature Grans 0.01 k/cumm (0.0-0.09); Absolute Basophil Count 0.01 k/cumm (0.0-0.2); Absolute Lymphocyte Count 0.44 k/cumm (1.2-3.4); Absolute Monocyte Count 0.24 k/cumm (0.11-0.7); Absolute Neutrophil Count 3.35 k/cumm (1.2-6.7); Basophils % 0.2; HCT 27.8 % (36.0-46.0); HGB 8.7 g/dL (12.0-15.5); Immature Grans % 0.2 %; Lymphocytes % 10.9; Mean Corp. HGB Concentration 31.3 g/dL (32.0-36.0); Mean Corpuscular Hemoglobin 30.5 pg (27.0-33.0); Mean Corpuscular Volume 97.5 fL (80-95); Mean Platelet Volume 9.3 fL (8.0-11.0); Monocytes % 5.9; Neutrophils % 82.8; Platelet Count 159 x1000/uL (130-400); RBC 2.85 m/cumm (4.00-5.20); RBC Distribution Width 15.9 % (11.7-14.6); White Blood Cell Count 4.05 k/cumm (4.4-10.8)
[2019-03-25 07:22] LABS: BUN 24 mg/dL (7-18); Calcium 7.2 mg/dL (8.5-10.1); Chloride 104 mmol/L (98-107); Estimated GFR 38.36 (mL/min/1.73m2); Glucose 234 mg/dL (74-106); Magnesium 2.1 mg/dL (1.8-2.4); Potassium 4.3 mmol/L (3.5-5.1); Sodium 139 mmol/L (136-145)
--- NOTE | 2019-03-25 07:35 | HOME_ITS ---
Home Oxygen Equipment: Home care [employer] Home oxygen qualifier: Sleep Qualifying SaO2: Date: 03/25/19 LPM: 2 Useage (hours/day) Portability: Comments: Using Oxygen at night for RAKAN
[2019-03-25] MEDS: Insulin Aspart 300 UNITS/3 ML PEN SC ×4 (07:42→20:32)
[2019-03-25 07:46] LABS: Anisocytosis 1+; Diff Comment RBC Morph Reviewed; Hypochromasia 1+; Polychromasia Present
[2019-03-25 07:47] LABS: Poikilocytes 1+
[2019-03-25] MEDS: Budesonide/Formoterol 160/4.5 6 GM 60 PUFF INH IH ×2 (07:58→20:31)
[2019-03-25] MEDS: Aspirin E.C. 81 MG TABEC PO (08:06)
[2019-03-25] MEDS: carBAMazepine 200 MG TAB PO ×2 (08:06→20:30)
[2019-03-25] MEDS: Ferrous Sulfate 325 MG TAB PO ×3 (08:07→20:30)
[2019-03-25] MEDS: Cetirizine 10 MG TAB PO (08:07)
[2019-03-25] MEDS: Cyanocobalamin 500 MCG TAB 1000 MCG PO (08:07)
[2019-03-25] MEDS: Folic Acid 1 MG TAB PO (08:07)
[2019-03-25] MEDS: Letrozole 2.5 MG TAB PO (08:08)
[2019-03-25] MEDS: guaiFENesin 600 MG TABCR PO ×2 (08:08→20:30)
[2019-03-25] MEDS: Loratidine 10 MG TAB PO (08:08)
[2019-03-25] MEDS: Pregabalin 50 MG CAP 200 MG PO ×3 (08:10→20:30)
--- NOTE | 2019-03-25 08:18 | RESPIRATORY ---
RT spoke with patient concerning her RAKAN that listing in her medical records per [facility]. Pt stated she does not have a machine or uses one. Currently, patient wears 2L NC at night and the DME: [facility].
--- NOTE | 2019-03-25 08:36 | W.PM.PROGNOT ---
Date of Service Date of service: 03/25/19 Time of Service: 17:03 Assessment and Plan Assessment and plan (1) Sepsis: Status: Acute Assessment and plan: Due to E. Coli UTI, POA, with E. Coli bacteremia. Defervesced and improving clinically. D/c vancomyin. Repeat blood cultures pending. Continue zosyn, await sensitivity testing. (2) E. coli bacteremia: Status: Acute Assessment and plan: As above (3) Urinary tract infection: Status: Acute Assessment and plan: Present on admission. As above. Qualifiers: Urinary tract infection type: site unspecified Hematuria presence: without hematuria Qualified Code(s): N39.0 - Urinary tract infection, site not specified (4) Adrenal insufficiency: Status: Chronic Assessment and plan: Continue stress dose steroid taper (5) Toxic metabolic encephalopathy: Status: Resolved Assessment and plan: Likely due to UTI. Completely resolved, per patient, daughter. I am also familiar with the patient - she is at her baseline. Monitor mental status. (6) Obstructive sleep apnea: Status: Chronic Assessment and plan: Provide HS O2. Suspicion for PE low. (7) Acute kidney injury superimposed on chronic kidney disease: Status: Acute Assessment and plan: Improved. IVF d/c'ed. Will diurese gently. (8) Discharge planning issues: Status: Acute Assessment and plan: Full code. Likely discharge home within the next 48-72 hours. (9) DVT prophylaxis: Status: Acute Assessment and plan: Heparin SC. Venous dopplers could not definitively rule out DVT - poor study - but no obvious clots seen. Subjective Subjective Interval history since last seen: States she feels better, but the legs are still bothering her, especially her left knee. Denies dizziness, chest pain, nausea. 2L overnight - No desaturations. 129/69. Good PO intake. Fentanyl patch on. FBG 198. 2/4 blood cultures positive for E. Coli. Exam Narrative Exam Narrative: General: Very pleasant obese female, A&OX3, laying nearly flat in bed, mildly tachypneic HEENT: EOMI, MMM Heart: RRR Lungs: CTAB Abdomen: soft, obese Extremities: 1+ BLE edema, trace pedal pulses, venous stasis dermatitis; RLE wound dressed Objective Objective Clinical Data: Abnormal lab results 03/24/19 03/24/19 03/25/19 Range/Units 06:30 14:25 06:15 WBC (4.4-10.8) k/cumm RBC (4.00-5.20) m/cumm Hgb (12.0-15.5) g/dL Hct (36.0-46.0) % MCV (80-95) fL MCHC (32.0-36.0) g/dL RDW (11.7-14.6) % Absolute Lymphocytes (1.2-3.4) k/cumm Sodium 134 L (136-145) mmol/L BUN 24 H 25 H 24 H (7-18) mg/dL Creatinine 2.13 H 1.90 H 1.40 H (0.55-1.02) mg/dL Glucose 276 H 318 H 234 H D (74-106) mg/dL Calcium 7.8 L 7.6 L 7.2 L (8.5-10.1) mg/dL Magnesium 1.6 L (1.8-2.4) mg/dL Albumin 2.5 L (3.4-5.0) g/dL TSH 0.05 L (0.36-3.74) uIU/mL 03/25/19 Range/Units 06:15 WBC 4.05 L D (4.4-10.8) k/cumm RBC 2.85 L (4.00-5.20) m/cumm Hgb 8.7 L (12.0-15.5) g/dL Hct 27.8 L (36.0-46.0) % MCV 97.5 H (80-95) fL MCHC 31.3 L (32.0-36.0) g/dL RDW 15.9 H (11.7-14.6) % Absolute Lymphocytes 0.44 L (1.2-3.4) k/cumm Sodium (136-145) mmol/L BUN (7-18) mg/dL Creatinine (0.55-1.02) mg/dL Glucose (74-106) mg/dL Calcium (8.5-10.1) mg/dL Magnesium (1.8-2.4) mg/dL Albumin (3.4-5.0) g/dL TSH (0.36-3.74) uIU/mL Vital Signs Temperature 36.3 C L 03/25/19 07:28 Temperature Source Temporal Artery Scan 03/25/19 07:28 Pulse 72 03/25/19 07:28 Pulse Rhythm Regular 03/24/19 23:40 Pulse 104 H 03/24/19 14:00 Respiratory Rate 22 03/25/19 07:28 Respiratory Effort 03/24/19 23:40 Respiratory Depth Normal 03/24/19 23:40 Respiratory Pattern Normal 03/24/19 23:40 Blood Pressure 112/71 03/25/19 07:28 Blood Pressure Mean 81 03/25/19 06:21 Blood Pressure Position Supine 03/24/19 07:50 Pulse Oximetry 94 L 03/25/19 08:15 Oxygen Delivery Method Nasal Cannula 03/25/19 08:15 Oxygen Flow Rate 2 03/25/19 08:15 Pain Level 6 03/25/19 07:28 Comment 03/23/19 20:01 Intake & Output 03/24/19 03/24/19 03/25/19 11:59 23:59 11:59 Intake Total 2090 / 3340 1250 / 3340 900 / 900 Output Total 300 / 1850 1550 / 1850 Balance 1790 / 1490 -300 / 1490 900 / 900 Intake: IV 1600 / 2200 600 / 2200 550 / 550 Oral 490 / 1140 650 / 1140 350 / 350 Output: Urine 300 / 1850 1550 / 1850 Other: Urine Color Yellow Yellow Urine Appearance Clear Sediment Comment Mendoza in place, patient has baseline urinary incontinence Voiding Methods Indwelling Catheter Laboratory Results WBC 4.05 k/cumm (4.4-10.8) L D 03/25/19 06:15 RBC 2.85 m/cumm (4.00-5.20) L 03/25/19 06:15 Hgb 8.7 g/dL (12.0-15.5) L 03/25/19 06:15 Hct 27.8 % (36.0-46.0) L 03/25/19 06:15 MCV 97.5 fL (80-95) H 03/25/19 06:15 MCH 30.5 pg (27.0-33.0) 03/25/19 06:15 MCHC 31.3 g/dL (32.0-36.0) L 03/25/19 06:15 RDW 15.9 % (11.7-14.6) H 03/25/19 06:15 Plt Count 159 x1000/uL (130-400) 03/25/19 06:15 MPV 9.3 fL (8.0-11.0) 03/25/19 06:15 Immature Gran % 0.2 % 03/25/19 06:15 Neutrophils % 82.8 03/25/19 06:15 Lymphocytes % 10.9 03/25/19 06:15 Monocytes % 5.9 03/25/19 06:15 Eosinophils % 0.0 03/25/19 06:15 Basophils % 0.2 03/25/19 06:15 Absolute Neutrophils 3.35 k/cumm (1.2-6.7) 03/25/19 06:15 Absolute Lymphocytes 0.44 k/cumm (1.2-3.4) L 03/25/19 06:15 Absolute Monocytes 0.24 k/cumm (0.11-0.7) 03/25/19 06:15 Absolute Eosinophils 0.00 k/cumm (0.0-0.7) 03/25/19 06:15 Absolute Basophils 0.01 k/cumm (0.0-0.2) 03/25/19 06:15 Differential Comment Rbc morph reviewed 03/25/19 06:15 RBC Morphology See below 03/25/19 06:15 Polychromasia Present 03/25/19 06:15 Hypochromasia 1+ 03/25/19 06:15 Poikilocytosis 1+ 03/25/19 06:15 Anisocytosis 1+ 03/25/19 06:15 D-Dimer 1660 ng/mlFEU (<500) H 03/23/19 14:35 VBG pH 7.42 (7.35-7.45) 03/23/19 22:17 VBG pCO2 40 mm/Hg (34-47) 03/23/19 22:17 VBG pO2 54 mm/Hg (28-44) H 03/23/19 22:17 VBG HCO3 26 mmol/L (22-28) 03/23/19 22:17 VBG Total CO2 24 mmol/L (22-29) 03/23/19 22:17 VBG O2 Saturation 89 % (70-80) H 03/23/19 22:17 VBG Base Excess 1.1 mmol/L (-3-3) 03/23/19 22:17 Sodium 139 mmol/L (136-145) 03/25/19 06:15 Potassium 4.3 mmol/L (3.5-5.1) 03/25/19 06:15 Chloride 104 mmol/L (98-107) 03/25/19 06:15 Carbon Dioxide 26.0 mmol/L (21.0-32.0) 03/25/19 06:15 Anion Gap 9.0 mmol/L (3-11) 03/25/19 06:15 BUN 24 mg/dL (7-18) H 03/25/19 06:15 Creatinine 1.40 mg/dL (0.55-1.02) H 03/25/19 06:15 Estimated GFR/1.73 m2 38.36 (mL/min/1.73m2) 03/25/19 06:15 Glucose 234 mg/dL (74-106) H D 03/25/19 06:15 Lactate 1.2 mmol/L (0.6-1.4) 03/24/19 10:30 Calcium 7.2 mg/dL (8.5-10.1) L 03/25/19 06:15 Magnesium 2.1 mg/dL (1.8-2.4) 03/25/19 06:15 Total Bilirubin 0.7 mg/dL (0.2-1.0) 03/24/19 06:30 AST 27 U/L (15-37) 03/24/19 06:30 ALT 18 U/L (14-59) 03/24/19 06:30 Alkaline Phosphatase 100 U/L (46-116) 03/24/19 06:30 Troponin I < 0.05 ng/Ml (<0.06) 03/23/19 17:38 NT-Pro-B Natriuret Pep 309 pg/mL (<300) H 03/23/19 14:35 Total Protein 6.8 g/dL (6.4-8.2) 03/24/19 06:30 Albumin 2.5 g/dL (3.4-5.0) L 03/24/19 06:30 Lipase 80 U/L (73-393) 03/23/19 14:35 TSH 0.05 uIU/mL (0.36-3.74) L 03/24/19 06:30 Free T4 1.12 ng/dL (0.76-1.46) 03/23/19 18:43 Urine Color Yellow (Yellow) 03/23/19 14:42 Urine Clarity Cloudy (Clear) 03/23/19 14:42 Urine pH 5.0 (5-8) 03/23/19 14:42 Ur Specific [place] >= 1.030 (1.005-1.025) H 03/23/19 14:42 Urine Protein 30 mg/dL (Negative) H 03/23/19 14:42 Urine Ketones Negative mg/dL (Negative) 03/23/19 14:42 Urine Blood Moderate (Negative) H 03/23/19 14:42 Urine Nitrite Negative (Negative) 03/23/19 14:42 Urine Bilirubin Negative (Negative) 03/23/19 14:42 Urine Urobilinogen 0.2 EU/dL (Up TO 0.2) 03/23/19 14:42 Ur Leukocyte Esterase Small (Negative) H 03/23/19 14:42 Urine RBC Not Applicable 03/23/19 14:42 Urine WBC >50 HPF (0-5) H 03/23/19 14:42 Ur Epithelial Cells Not Applicable 03/23/19 14:42 Urine Crystals Not Applicable 03/23/19 14:42 Urine Bacteria Packed HPF (Negative) 03/23/19 14:42 Urine Mucus Not Applicable 03/23/19 14:42 Ur Culture Indicated? C&s done as ordered 03/23/19 14:42 Urine Glucose 250 mg/dL (Negative) H 03/23/19 14:42
[2019-03-25] MEDS: Tiotropium Bromide-Respimat 10 PUFF INH IH (11:23)
[2019-03-25 12:36] LABS: HCT 29.8 % (36.0-46.0); HGB 9.2 g/dL (12.0-15.5)
--- NOTE | 2019-03-25 13:12 | IN_ITS ---
Date of service: 03/25/19 Time of Service: 11:55 PT Notes Visit Reasons: UTI, ACUTE KIDNEY INJURY Physical Therapy Inpatient Initial Evaluation Date: 03/25/2019 Referring Doctor: Sheyla Reno MD PT Orders: PT CONSULT: Limited ability Precautions: Fall. Standard. Activity as tolerated. 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 She presented to the ED on 03/23/2018 with chief complaints of nausea, vomiting, diarrhea, abdominal pain, and generalized body malaise. Patient is diagnosed with urinary tract infection and acute kidney injury. PMHX: Medical History C. difficile diarrhea (Acute) Carpal tunnel syndrome (Acute) Chronic adrenal insufficiency (Acute) Chronic pain (Chronic) Chronic respiratory failure with hypoxia (Chronic) Chronic venous stasis dermatitis (Chronic) COPD (chronic obstructive pulmonary disease) (Chronic) On nocturnal oxygen - 2L prn Depression (Chronic) Diabetes mellitus (Chronic) Insulin dependent Diverticulosis (Acute) Dyslipidemia (Chronic) History of breast cancer (Chronic) metastatic, with lymphatic spread and bone mets Hyperlipidemia (Acute) Hypopituitarism (Chronic) Hypothyroidism (Chronic) Influenza B (Acute) Iron deficiency anemia (Acute) Metastatic breast cancer (Acute) Obesity (Chronic) Obstructive sleep apnea (Chronic) per [facility] records Pneumonia (Acute) Restless leg syndrome (Acute) Spinal stenosis (Acute) Surgical History H/O bilateral mastectomy (Acute) H/O colonoscopy with polypectomy (Acute) History of carpal tunnel release of both wrists (Acute) Port-A-Cath in place (Acute) Status post transsphenoidal pituitary resection (Acute) Social History/Home Situation: Candace lives with her daughter in [place], [place] in a two-story house with a ramp to enter rails on both sides. Patient has stairs to the second floor of the house but has everything she needs on the first floor. She is disabled. She has 2 daughters locally. She receives choices for care highest needs, and her daughter Kiki is her primary provider f or 12 years now. Kiki's provides assistance with bathing and does meal preapration and assistance with lower body dressing. She was independent with front-wheeled walker for in-house ambulation and uses the 4-wheeled walker for outdoor ambulation. She has to walk about 80-90 feet to get to her car. She is dependent on her daughter for transportation to and from appointments. Daughter also provides assistance with bathing patient's back due to body habitus. Equipment Owned/DME: bariatric FWW, bariatric hospital bed, bariatric recliner, bariatric front wheeled walker Subjective: Patient is seen resting in bed and is agreeable to a PT evaluation. She feels just a lot better compared to yesterday but continues to feel tired and weak. She reported pain on L knee with weight bearing. Objective: General Observation: Patient is seen for this evaluation resting in bed. IV in right UE open. Hemosiderin staining observed in bilateral distal legs from CVI. Abdominal panniculus. Obese.. Mental Status: Alert and oriented x 4 Pain: Patient describes her usual pain as 4-5/10 ROM: Right Upper Extremity: Shoulder flexion 90-100 degrees. Elbow flexion WFL. Hands/wrist and fingers are WFL. Left Upper Extremity: Shoulder flexion 90-100 degrees. Elbow flexion WFL. Hands/wrist and fingers are WFL. Right Lower Extremity: Patient is able to bend hip to about 10 degrees beyond 90 while seated at edge of bed. She is able to perform straight leg raise to approximately 20-25 degrees. Kne flexion WFL. Dorsiflexion/plantarflexion WFL. Left Lower Extremity: Patient is able to bend hip to about 10 degrees beyond 90 while seated at edge of bed. She is able to perform straight leg raise to approximately 20-25 degrees. Kne flexion WFL. Dorsiflexion/plantarflexion WFL. Strength: Right Upper Extremity: Shoulder flexion 3-/5. Elbow flexion 4/5. Registration Scheduling Specialist strong and functional Left Upper Extremity: Shoulder flexion 3-/5. Elbow flexion 4/5. Registration Scheduling Specialist strong and functional. Right Lower Extremity: Hip flexion 3-/5. Hip extension 3/5. Knee flexion 4-/5. Knee extension 3+/5. Ankle dorsiflexion/plantarflexion 4/5. Left Lower Extremity: Hip flexion 3-/5. Hip extension 3/5. Knee flexion 4-/5. Knee extension 3+/5. Ankle dorsiflexion/plantarflexion 4/5. Bed Mobility/Transfers: Supine to sit: moderate assist Sit to supine: moderate assist Sit to stand: moderate assist Stand to sit: moderate assist Bed to chair: moderate assist Chair to bed: moderate assist Gait: Patient only able to do 2-3 sidesteps to transfer from bedside to recliner chair with FWW requiring only minimal assist of 2 with verbal cues needed for walker management and safety. Decreased step height and length. Reported pain on L knee with weight bearing. Balance: Static Sitting: Good Dynamic Sitting: Good Static Standing: Poor Dynamic Standing: Poor Special Tests: Mobility Limitations Standardized Measure [facility] AM-PAC 6 clicks Basic Mobility Inpatient Short Form: Raw Score: 11 CMS Score: 73 % deficit Informed Consent/Education: Patient instructed in purpose of PT consult and plan of care. Assessment: Patient is a 58-year-old female with past medical history significant for breast carcinoma with metastases to the ymphatic system and bones. She presented to the ED on 03/23/2018 with chief complaints of nausea, vomiting, diarrhea, abdominal pain, and generalized body malaise. Patient is diagnosed with urinary tract infection and acute kidney injury. Her daughter is her 23/09 caregiver. Her prognosis for regaining prior level of function is fair to good. Patient does have chronic functional mobility deficits and has a daughter for her longtime caregiver. PT goals will be aimed at addressing the following impairment level findings: 1. Decreased range of motion for hip and knee bilaterally 2. Impaired strength to BLE 3. Impaired activity tolerance 4. Decreased balance skills Impairments are contributing to the following functional limitations: 1. Reduced transfer skills 2. Increased risk for falls due to balance impairments 3. Limited ambulation distance Patient is assessed as a Moderate 33096 complexity based on the following: History: Increased dependence with mobility ADL performance due to acute medical issues related to influenza and pneumonia. Patient has been receiving mobility assistance for over 10 years now with a daughter Kiki as a primary caregiver. Full medical history can be found as noted above. Examination: Impairment level findings and functional limitations as noted above Presentation: Evolving Decision Making: Moderate complexity 64047 Goals: Goals X1 week 1. Supine-Sit independent 2. Sit-Supine independent 3. Sit-Stand independent 4. Stand-Sit independent 5. Bed-Chair supervision 6. Chair-Bed supervision 7. Gait indoor and outdoor ambulation using FWW for at least 100 feet 8. Independent with home exercise program 9. Balance good Plan of Care/Treatment Plan: 1-2x/day, 7 days/week x 1 week. Plan of care has been reviewed with the STRAIGHT TRUCK DRIVER providing the service under Physical Therapy direction. Initiate Physical Therapy intervention for strengthening, bed mobility, transfers, gait, stairs, balance training, use of assistive device, HEP education/training. DISCHARGE RECOMMENDATIONS: Patient will highly benefit from the use of a regular bariatric wheelchair upon discharge to home to maximize mobility garments and reduce fall risk. Patient will benefit from home health PT services in order to progress mobility level using four-wheeled walker, assess home safety, identify additional equipment needs, and establish a functional maintenance program that will increase ability of patient to remain at home with daughter. TREATMENT CODE/TIME: 32290 x 30 minutes beginning at 11:55 AM. Thank you very much for this referral. Allie Miguel PT, DPT, CLT [facility] Inpatient PT at [facility]
--- NOTE | 2019-03-25 15:07 | CHAPLAIN ---
I had a short visits with Candace, introduced myself and offered support. She had a friend visiting. After reading the career education teacher's assessment, I realize I have met Candace during other admissions. I will continue to visit.
--- NOTE | 2019-03-25 15:56 | PT.INTREAT ---
Date of service: 03/25/19 Time of Service: 14:40 PT Notes Visit Reasons: UTI, ACUTE KIDNEY INJURY Inpatient Physical Therapy Treatment Note [facility] Date: 03/25/2019 PRECAUTIONS: Fall. Standard. Activity as tolerated. SUBJECTIVE: Patient reports being tired and was wanting to go back to bed. OBJECTIVE: Mendoza catheter in place. IV access open in the right UE. 3 episodes of diarrhea during assistance with sit to stand and bedside commode to bed transfers. PAIN: Reported pain on left popliteal area and bilateral knees with weightbearing. BED MOBILITY/TRANSFERS Sit-supine: Moderate assist of 3 Sit-stand: Moderate assist of 3 Stand-sit: Moderate assist of 3 Bed-Chair: Moderate assist of 3 Chair-bed: Moderate assist of 3 GAIT Assistive Device: FWW Weight bearing: FWB Assist: Moderate assist of 3 Distance: 3 steps forward +3 sidesteps +1 step back from wheelchair to bedside commode and then the same steps from bedside commode to the bed. Deviation: Patient is unable to assume erect standing position with excessive trunk flexion increasing risk for falling despite assistance of 3 caregivers. Patient's activity tolerance is also significantly reduced which required resting x2 prior to transferring back to bed. Assessment: Patient demonstrates significant functional mobility decline since last admission to this hospital in January 2019. Patient is a 58-year-old female with past medical history significant for breast carcinoma with metastases to the ymphatic system and bones. She presented to the ED on 03/23/2018 with chief complaints of nausea, vomiting, diarrhea, abdominal pain, and generalized body malaise. Patient is diagnosed with urinary tract infection and acute kidney injury. Her daughter is her 23/09 caregiver. Her prognosis for regaining prior level of function is fair to good. Patient does have chronic functional mobility deficits and has a daughter for her longtime caregiver. Plan of Care/Treatment Plan: 1-2x/day, 7 days/week x 1 week. Plan of care has been reviewed with the RECEIVING MANAGER providing the service under Physical Therapy direction. Initiate Physical Therapy intervention for strengthening, bed mobility, transfers, gait, stairs, balance training, use of assistive device, HEP education/training. DISCHARGE RECOMMENDATIONS: Patient will highly benefit from the use of a regular bariatric wheelchair upon discharge to home to maximize mobility garments and reduce fall risk. Patient will benefit [facility] for continued skilled physical therapy services in order to progress mobility level, strength, and balance in preparation for a safe discharge to home. Treatment time/code: 9716 2 x 30 minutes beginning at 14:40 p.m.
--- NOTE | 2019-03-25 16:26 | PDOC.CMPRO ---
- If Service Date Differs Date of service: 03/25/19 Time of Service: 16:26 Care Management Progress Note S/O: Candace was sitting up in bed when CM met with her. Her daughter, Bhargavi was in the room. CM assisted Candace with filling out her AD, at her request. CM faxed the AD to the [facility], and also provided Candace with several copies and the original for her records. Candace requested a bariatric w/c. CM stated that she would need to be evaluated by PT prior to ordering one, which she was agreeable to. Candace was transferred out of the ICU to [facility] of care this afternoon. CM will continue to follow. A: Candace is a 59 year old female admitted to [facility] on 03/23/2019 for UTI, SIERRA. P: Anticipate Candace will return home when medically cleared, possibly with new services. She has requested a bariatric w/c, which CM will send orders for. Her daughter will drive her home via private vehicle when ready. She will follow up with her PCP, as recommended. CM will continue to follow and support discharge planning considerations.
[2019-03-25] MEDS: Furosemide 20 MG/2 ML VIAL IVP (17:23)
[2019-03-25] MEDS: Lidocaine 5% Patch 1 PATCH TP (18:10)
[2019-03-25] MEDS: Atorvastatin 20 MG TAB 40 MG PO (21:54)
[2019-03-25] MEDS: DULoxetine 30 MG CAP 60 MG PO (21:54)
[2019-03-25] MEDS: Montelukast 10 MG TAB PO (21:55)
[2019-03-26] VITALS (9 sets, daily range): BP systolic 113–143; BP diastolic 65–75; PULSE 76–88; RESP 18–20; TEMP 35.3–36.8; O2SAT 92–98
[2019-03-26] MEDS: Hydrocortisone SOD SUC. 100 MG VIAL 25 MG IVP ×4 (00:53→18:34)
[2019-03-26] MEDS: Normal Saline Flush 10 ML SYR IVP ×5 (00:55→18:34)
[2019-03-26] MEDS: PIPERACILLIN/TAZO 2.25 GM in Normal Saline 50 ML IV ×2 (01:44→08:35)
[2019-03-26] MEDS: Heparin 5,000 UNITS/ML VIAL 5000 UNITS SC ×3 (05:44→21:33)
[2019-03-26] MEDS: Levothyroxine 150 MCG TAB PO (05:45)
[2019-03-26] MEDS: Patch Removal 1 EACH TP (05:46)
[2019-03-26 07:39] LABS: Abs Immature Grans 0.01 k/cumm (0.0-0.09); Absolute Eosinophil Count 0.02 k/cumm (0.0-0.7); Absolute Lymphocyte Count 0.68 k/cumm (1.2-3.4); Absolute Monocyte Count 0.28 k/cumm (0.11-0.7); Absolute Neutrophil Count 2.77 k/cumm (1.2-6.7); Eosinophils % 0.5; HCT 28.4 % (36.0-46.0); HGB 8.7 g/dL (12.0-15.5); Immature Grans % 0.3 %; Lymphocytes % 18.1; Mean Corp. HGB Concentration 30.6 g/dL (32.0-36.0); Mean Corpuscular Hemoglobin 29.6 pg (27.0-33.0); Mean Corpuscular Volume 96.6 fL (80-95); Mean Platelet Volume 9.4 fL (8.0-11.0); Monocytes % 7.4; Neutrophils % 73.7; Platelet Count 184 x1000/uL (130-400); RBC 2.94 m/cumm (4.00-5.20); RBC Distribution Width 15.5 % (11.7-14.6); White Blood Cell Count 3.76 k/cumm (4.4-10.8)
[2019-03-26 07:54] LABS: Anion Gap 6.9 mmol/L (3-11); BUN 23 mg/dL (7-18); CO2 29.1 mmol/L (21.0-32.0); CREATININE 1.14 mg/dL (0.55-1.02); Calcium 7.7 mg/dL (8.5-10.1); Chloride 105 mmol/L (98-107); Estimated GFR 48.62 (mL/min/1.73m2); Glucose 162 mg/dL (74-106); Magnesium 2.1 mg/dL (1.8-2.4); Potassium 3.6 mmol/L (3.5-5.1); Sodium 141 mmol/L (136-145)
[2019-03-26] MEDS: Furosemide 20 MG/2 ML VIAL IVP (08:34)
[2019-03-26] MEDS: Insulin Aspart 300 UNITS/3 ML PEN SC ×3 (08:35→17:22)
[2019-03-26] MEDS: Cetirizine 10 MG TAB PO (08:36)
[2019-03-26] MEDS: Letrozole 2.5 MG TAB PO (08:36)
[2019-03-26] MEDS: Hydrocortisone 10 MG TAB 20 MG PO (08:36)
[2019-03-26] MEDS: Pregabalin 50 MG CAP 200 MG PO ×3 (08:36→20:04)
[2019-03-26] MEDS: Folic Acid 1 MG TAB PO (08:37)
[2019-03-26] MEDS: Ferrous Sulfate 325 MG TAB PO ×3 (08:37→20:04)
[2019-03-26] MEDS: Loratidine 10 MG TAB PO (08:37)
[2019-03-26] MEDS: Cyanocobalamin 500 MCG TAB 1000 MCG PO (08:37)
[2019-03-26] MEDS: guaiFENesin 600 MG TABCR PO ×2 (08:37→20:04)
[2019-03-26] MEDS: carBAMazepine 200 MG TAB PO ×2 (08:37→20:04)
[2019-03-26] MEDS: Aspirin E.C. 81 MG TABEC PO (08:37)
--- NOTE | 2019-03-26 09:49 | NUR.NOTE ---
Nursing Note: 0845: primary RN, Reyes Mccall pulled out 2 extra lyrica caps when removing medications from [facility]. this scribe hands the lyrica to pharmacist, Zenaida, at the [facility] explaining that it could not easily be returned to [facility] as the count was correct and lyrica is considered a controlled medication so staff cannot return to [facility] properly. this scribe reports to primary RN that pharmacist Zenaida took medication to return to [facility].
[2019-03-26] MEDS: Budesonide/Formoterol 160/4.5 6 GM 60 PUFF INH IH ×2 (10:00→20:04)
[2019-03-26] MEDS: Tiotropium Bromide-Respimat 10 PUFF INH IH (10:01)
[2019-03-26] MEDS: cefTRIAXone 2 GM/50 ML BAG IVPB (12:23)
[2019-03-26] MEDS: Vancomycin 125 MG CAP PO ×3 (12:24→23:46)
[2019-03-26] MEDS: Hydrocortisone 10 MG TAB 5 MG PO (12:24)
--- NOTE | 2019-03-26 12:50 | PT.INTREAT ---
Date of service: 03/27/19 PT Notes Visit Reasons: UTI, ACUTE KIDNEY INJURY PT Inpatient Treatment Note Date: 03/26/2019 PRECAUTIONS: Fall. Contact precautions for suspected C. Difficile infection. Activity as tolerated. SUBJECTIVE: Patient continues to report fatigue and weakness. Hopes that diarrhea will resolve. OBJECTIVE: Mendoza catheter in place. IV access open in the right UE. 2 episodes of diarrhea during PT session. PAIN: Reported pain on left popliteal area and bilateral knees with weightbearing. BED MOBILITY/TRANSFERS Sit-supine: Moderate assist of 3 Sit-stand: Moderate assist of 3 Stand-sit: Moderate assist of 3 Bed-Chair: Moderate assist of 3 Chair-bed: Moderate assist of 3 GAIT Assistive Device: FWW Weight bearing: FWB Assist: Moderate assist of 2, minimal assist of a third CG Distance: 3 steps forward +3 sidesteps +1 step back from wheelchair to bedside commode and then the same steps from bedside commode to the bed. Deviation: Patient is requires moderate cueing to increase trunk extension to increase ant-post stability which is more than she did in yesterday's session. Goes back into flexion after 2-3 minutes of standing when fatigued. Assessment: Patient continues to demonstrate significant functional mobility decline since last admission to this hospital in January 2019. Awaiting results from C.Dificile testing this afternoon. Patient is a 58-year-old female with past medical history significant for breast carcinoma with metastases to the ymphatic system and bones. She presented to the ED on 03/23/2018 with chief complaints of nausea, vomiting, diarrhea, abdominal pain, and generalized body malaise. Patient is diagnosed with urinary tract infection and acute kidney injury. Her daughter is her 23/09 caregiver. Her prognosis for regaining prior level of function is fair to good. Patient does have chronic functional mobility deficits and has a daughter for her longtime caregiver. Plan of Care/Treatment Plan: 1-2x/day, 7 days/week x 1 week. Plan of care has been continually reviewed with the LAWN CARE TECHNICIAN providing the service under Physical Therapy direction. Initiate Physical Therapy intervention for strengthening, bed mobility, transfers, gait, stairs, balance training, use of assistive device, HEP education/training. DISCHARGE RECOMMENDATIONS: Patient will highly benefit from the use of a regular bariatric wheelchair with bariatric gel cushion upon discharge to home to maximize mobility performance, reduce skin breakdown, and minimize fall risk. Patient will benefit from care home facility placement for continued skilled physical therapy services in order to progress mobility level, strength, and balance in preparation for a safe discharge to home. Treatment time/code: 03373 x 45 minutes beginning at 12:50 p.m.
--- NOTE | 2019-03-26 15:27 | W.PALPGNOTE ---
Date of service: 03/26/19 Assessment and Plan Assessment and plan (1) POLST (Physician Orders for Life-Sustaining Treatment): Status: Acute Assessment and plan: Done today, sent to all her care providers. She is a minimalist. Wants little to no intervention, with the exception of ongoing cancer treatment from Dr Walden, as long as she doesn't have to be admitted to hospital. (2) Goals of care, counseling/discussion: Status: Acute Assessment and plan: She looks much better than she was 3 days prior to today's visit. Her sepsis is nearly resolved. She is thinking clearly. Her pain is controlled. She opted for minimal interventions on her COLST form. She has no evidence of any cognitive compromise. (3) Cancer related pain: Status: Chronic Assessment and plan: Well controlled on fentanyl 25 mcg patch. (4) Stage IV breast cancer in female: Status: Chronic Assessment and plan: Followed by Dr Walden. Wants to continue cancer treatment as long as it is offered, depending on side effects. (5) Palliative care patient: Status: Chronic Assessment and plan: Doesn't want IV abx again in the future. Willing to change to po and finish this treatment. Elected PROMOTIONS EXECUTIVE on her COLST form. Subjective Subjective Patient reports: no new complaints, feels better, pain is less (25 mcg fentanyl patch working well), tolerating liquids well, bowel movement and diarrhea Interval history since last seen: She is on precautions for possible c. diff, which she has had before. Results pending. Having multiple stools per day, but they lack the distinctive quality of c diff stools, both she and her nurse report. She filled out an Advance Directive with CM yesterday. Wants to do a COLST form today with me. Is still interested in receiving chemotherapy and other treatment from Dr Walden, her oncologist, for her stage IV breast cancer. but DOES NOT WANT any further hospitalizations or antibiotics. She elected PROMOTIONS EXECUTIVE measures, with the exception of outpatient treatment for her cancer. Exam Const Nutritional Appearance: obese Orientation: alert, awake and oriented x3 HENMT Head: normocephalic and atraumatic Ears: hearing grossly normal bilaterally General nose exam: external nose normal Face and sinus: normal facial exam and face symmetric Eyes Conjunctivae: conjunctivae normal Sclera: sclerae normal Neck Neck: no JVD Chest Breast inspection: abnormal inspection of the breast (bilateral mastectomies) Resp Effort & Inspection: normal respiratory effort and able to speak in complete sentences Auscultation: clear to auscultation bilaterally and diminished lung sounds Cardio Rate: tachycardic Rhythm: regular rhythm Heart Sounds: S1 normal and S2 normal GI Inspection: obesity Palpation: firm Auscultation: normal bowel sounds Skin General skin exam: dry skin and pallor Hair: general thinning Neuro General: alert, awake and oriented x3 Cognition: normal cognition Speech: speech normal Psych Appearance: grossly normal Mental Status: mental status grossly normal Speech and Movement: speech and movement normal Mood: congruent mood Affect: normal affect Attitude: cooperative Thought Content: normal Insight: insight good Judgment: judgment good Other: she understands she has a terminal illness she is willing to accept medical treatment as long as it doesn't cause her side effects that bother her Objective Objective Clinical Data: Abnormal lab results 03/26/19 03/26/19 Range/Units 06:50 06:50 WBC 3.76 L (4.4-10.8) k/cumm RBC 2.94 L (4.00-5.20) m/cumm Hgb 8.7 L (12.0-15.5) g/dL Hct 28.4 L (36.0-46.0) % MCV 96.6 H (80-95) fL MCHC 30.6 L (32.0-36.0) g/dL RDW 15.5 H (11.7-14.6) % Absolute Lymphocytes 0.68 L (1.2-3.4) k/cumm BUN 23 H (7-18) mg/dL Creatinine 1.14 H (0.55-1.02) mg/dL Glucose 162 H (74-106) mg/dL Calcium 7.7 L (8.5-10.1) mg/dL Vital Signs Temperature 97.9 F 03/26/19 11:30 Temperature Source Tympanic 03/26/19 11:30 Pulse 88 03/26/19 11:30 Pulse Rhythm Regular 03/26/19 05:45 Pulse 104 H 03/24/19 14:00 Respiratory Rate 18 03/26/19 11:30 Respiratory Effort Short of Breath 03/26/19 10:37 Respiratory Depth Normal 03/26/19 10:37 Respiratory Pattern Normal 03/26/19 10:37 Blood Pressure 116/68 03/26/19 11:30 Blood Pressure Mean 81 03/25/19 06:21 Blood Pressure Position Supine 03/24/19 07:50 Pulse Oximetry 98 03/26/19 11:30 Oxygen Delivery Method Nasal Cannula 03/26/19 11:30 Oxygen Flow Rate 2 03/26/19 11:30 Pain Level 0 03/26/19 11:30 Comment 03/25/19 12:48 Intake & Output 03/25/19 03/26/19 03/26/19 23:59 11:59 23:59 Intake Total 150 / 1220 320 / 320 Output Total 1300 / 1900 1900 / 2250 350 / 2250 Balance -1150 / -680 -1580 / -1930 -350 / -1930 Weight 347 lb 3.649 oz Intake: IV 150 / 750 80 / 80 Oral 240 / 240 Output: Urine 1300 / 1900 1900 / 2250 350 / 2250 Other: Urine Color Yellow Pale Pale Yellow Yellow Urine Appearance Cloudy Clear Clear Stool Occult Blood Positive Negative Stool Size Large Large Moderate Stool Characteristics Liquid Foamy Soft Brown Liquid Laboratory Results WBC 3.76 k/cumm (4.4-10.8) L 03/26/19 06:50 RBC 2.94 m/cumm (4.00-5.20) L 03/26/19 06:50 Hgb 8.7 g/dL (12.0-15.5) L 03/26/19 06:50 Hct 28.4 % (36.0-46.0) L 03/26/19 06:50 MCV 96.6 fL (80-95) H 03/26/19 06:50 MCH 29.6 pg (27.0-33.0) 03/26/19 06:50 MCHC 30.6 g/dL (32.0-36.0) L 03/26/19 06:50 RDW 15.5 % (11.7-14.6) H 03/26/19 06:50 Plt Count 184 x1000/uL (130-400) 03/26/19 06:50 MPV 9.4 fL (8.0-11.0) 03/26/19 06:50 Immature Gran % 0.3 % 03/26/19 06:50 Neutrophils % 73.7 03/26/19 06:50 Lymphocytes % 18.1 03/26/19 06:50 Monocytes % 7.4 03/26/19 06:50 Eosinophils % 0.5 03/26/19 06:50 Basophils % 0.0 03/26/19 06:50 Absolute Neutrophils 2.77 k/cumm (1.2-6.7) 03/26/19 06:50 Absolute Lymphocytes 0.68 k/cumm (1.2-3.4) L 03/26/19 06:50 Absolute Monocytes 0.28 k/cumm (0.11-0.7) 03/26/19 06:50 Absolute Eosinophils 0.02 k/cumm (0.0-0.7) 03/26/19 06:50 Absolute Basophils 0.00 k/cumm (0.0-0.2) 03/26/19 06:50 Differential Comment Rbc morph reviewed 03/25/19 06:15 RBC Morphology See below 03/25/19 06:15 Polychromasia Present 03/25/19 06:15 Hypochromasia 1+ 03/25/19 06:15 Poikilocytosis 1+ 03/25/19 06:15 Anisocytosis 1+ 03/25/19 06:15 D-Dimer 1660 ng/mlFEU (<500) H 03/23/19 14:35 VBG pH 7.42 (7.35-7.45) 03/23/19 22:17 VBG pCO2 40 mm/Hg (34-47) 03/23/19 22:17 VBG pO2 54 mm/Hg (28-44) H 03/23/19 22:17 VBG HCO3 26 mmol/L (22-28) 03/23/19 22:17 VBG Total CO2 24 mmol/L (22-29) 03/23/19 22:17 VBG O2 Saturation 89 % (70-80) H 03/23/19 22:17 VBG Base Excess 1.1 mmol/L (-3-3) 03/23/19 22:17 Sodium 141 mmol/L (136-145) 03/26/19 06:50 Potassium 3.6 mmol/L (3.5-5.1) 03/26/19 06:50 Chloride 105 mmol/L (98-107) 03/26/19 06:50 Carbon Dioxide 29.1 mmol/L (21.0-32.0) 03/26/19 06:50 Anion Gap 6.9 mmol/L (3-11) 03/26/19 06:50 BUN 23 mg/dL (7-18) H 03/26/19 06:50 Creatinine 1.14 mg/dL (0.55-1.02) H 03/26/19 06:50 Estimated GFR/1.73 m2 48.62 (mL/min/1.73m2) 03/26/19 06:50 Glucose 162 mg/dL (74-106) H 03/26/19 06:50 Lactate 1.2 mmol/L (0.6-1.4) 03/24/19 10:30 Calcium 7.7 mg/dL (8.5-10.1) L 03/26/19 06:50 Magnesium 2.1 mg/dL (1.8-2.4) 03/26/19 06:50 Total Bilirubin 0.7 mg/dL (0.2-1.0) 03/24/19 06:30 AST 27 U/L (15-37) 03/24/19 06:30 ALT 18 U/L (14-59) 03/24/19 06:30 Alkaline Phosphatase 100 U/L (46-116) 03/24/19 06:30 Troponin I < 0.05 ng/Ml (<0.06) 03/23/19 17:38 NT-Pro-B Natriuret Pep 309 pg/mL (<300) H 03/23/19 14:35 Total Protein 6.8 g/dL (6.4-8.2) 03/24/19 06:30 Albumin 2.5 g/dL (3.4-5.0) L 03/24/19 06:30 Lipase 80 U/L (73-393) 03/23/19 14:35 TSH 0.05 uIU/mL (0.36-3.74) L 03/24/19 06:30 Free T4 1.12 ng/dL (0.76-1.46) 03/23/19 18:43 Urine Color Yellow (Yellow) 03/23/19 14:42 Urine Clarity Cloudy (Clear) 03/23/19 14:42 Urine pH 5.0 (5-8) 03/23/19 14:42 Ur Specific [place] >= 1.030 (1.005-1.025) H 03/23/19 14:42 Urine Protein 30 mg/dL (Negative) H 03/23/19 14:42 Urine Ketones Negative mg/dL (Negative) 03/23/19 14:42 Urine Blood Moderate (Negative) H 03/23/19 14:42 Urine Nitrite Negative (Negative) 03/23/19 14:42 Urine Bilirubin Negative (Negative) 03/23/19 14:42 Urine Urobilinogen 0.2 EU/dL (Up TO 0.2) 03/23/19 14:42 Ur Leukocyte Esterase Small (Negative) H 03/23/19 14:42 Urine RBC Not Applicable 03/23/19 14:42 Urine WBC >50 HPF (0-5) H 03/23/19 14:42 Ur Epithelial Cells Not Applicable 03/23/19 14:42 Urine Crystals Not Applicable 03/23/19 14:42 Urine Bacteria Packed HPF (Negative) 03/23/19 14:42 Urine Mucus Not Applicable 03/23/19 14:42 Ur Culture Indicated? C&s done as ordered 03/23/19 14:42 Urine Glucose 250 mg/dL (Negative) H 03/23/19 14:42
--- NOTE | 2019-03-26 16:43 | CMPROGNOTE_ITS ---
- If Service Date Differs Date of service: 03/26/19 Time of Service: 16:43 Care Management Progress Note S/O: Candace was sitting up in bed when CM met with her. She was pleasant and friendly and engaged quickly in conversation. Candace talked about what she would do if she won $1 million. She would want to pay all of her bills and those of her children. She also stated that she would buy [address] land and clear a spot in the middle to build homes for her family and would fence off an area to care for animals. Dr. Royal met with Candace again today and completed COLST forms. (see Dr. Royal's note for details). A: Candace is a 59 year old female admitted to [facility] on 03/23/2019 for UTI, [facility]. P: Anticipate Candace will return home when medically cleared, possibly with new services. She has requested a bariatric w/c, which CM will send orders for. Her daughter will drive her home via private vehicle when ready. She will follow up with her PCP, as recommended. CM will continue to follow and support discharge planning considerations.
[2019-03-26] MEDS: Lidocaine 5% Patch 1 PATCH TP (18:33)
[2019-03-26] MEDS: Cefpodoxime 200 MG TAB 400 MG PO (18:34)
--- NOTE | 2019-03-26 19:33 | PGE_ITS ---
Date of Service Date of service: 03/26/19 Time of Service: 19:34 Assessment and Plan Assessment and plan (1) Sepsis: Status: Acute Assessment and plan: Due to E. Coli UTI, POA, with E. Coli bacteremia. Defervesced and improving clinically. Discussed with [facility] ID: recommended switching to PO cefpodoxime; 10 day course from 1st negative blood culture - end date would be 04/03/2019. Provide PO vancomycin for C. diff prophylaxis. C. diff testing was apparently already sent today. (2) E. coli bacteremia: Status: Acute Assessment and plan: As above (3) Urinary tract infection: Status: Acute Assessment and plan: Present on admission. As above. Qualifiers: Urinary tract infection type: site unspecified Hematuria presence: without hematuria Qualified Code(s): N39.0 - Urinary tract infection, site not specified (4) Adrenal insufficiency: Status: Chronic Assessment and plan: Continue stress dose steroid taper (5) Toxic metabolic encephalopathy: Status: Resolved Assessment and plan: Likely due to UTI. Completely resolved, per patient, daughter. I am also familiar with the patient - she is at her baseline. Monitor mental status. (6) Obstructive sleep apnea: Status: Chronic Assessment and plan: Provide HS O2. Suspicion for PE low. (7) Acute kidney injury superimposed on chronic kidney disease: Status: Acute Assessment and plan: Nearly resolved. Tolerated diuresis. (8) Discharge planning issues: Status: Acute Assessment and plan: Full code. Likely discharge home this weekend. (9) DVT prophylaxis: Status: Acute Assessment and plan: Heparin SC. Venous dopplers could not definitively rule out DVT - poor study - but no obvious clots seen. Subjective Subjective Interval history since last seen: Ms Maynard states that she is feeling well today. Denies dizziness, chest pain, shortness of breath, abdominal pain, nausea, vomiting. Nursing notes fecal oozing, but the patient states that she does not feel like she has C. Diff at this time. She does not think that she is having diarrhea. Having said that, she requests prn questran. Exam Narrative Exam Narrative: General: Very pleasant obese female, A&OX3, laying nearly flat in bed, no tachypnea noted HEENT: EOMI, MMM Heart: RRR Lungs: CTAB Abdomen: soft, obese Extremities: trace BLE edema, trace pedal pulses, venous stasis dermatitis; RLE wound dressed Objective Objective Clinical Data: Abnormal lab results 03/26/19 03/26/19 Range/Units 06:50 06:50 WBC 3.76 L (4.4-10.8) k/cumm RBC 2.94 L (4.00-5.20) m/cumm Hgb 8.7 L (12.0-15.5) g/dL Hct 28.4 L (36.0-46.0) % MCV 96.6 H (80-95) fL MCHC 30.6 L (32.0-36.0) g/dL RDW 15.5 H (11.7-14.6) % Absolute Lymphocytes 0.68 L (1.2-3.4) k/cumm BUN 23 H (7-18) mg/dL Creatinine 1.14 H (0.55-1.02) mg/dL Glucose 162 H (74-106) mg/dL Calcium 7.7 L (8.5-10.1) mg/dL Vital Signs Temperature 36.8 C 03/26/19 15:39 Temperature Source Tympanic 03/26/19 15:39 Pulse 79 03/26/19 15:39 Pulse Rhythm Regular 03/26/19 05:45 Pulse 104 H 03/24/19 14:00 Respiratory Rate 20 03/26/19 15:39 Respiratory Effort Short of Breath 03/26/19 16:39 Respiratory Depth Normal 03/26/19 16:39 Respiratory Pattern Normal 03/26/19 16:39 Blood Pressure 115/72 03/26/19 15:39 Blood Pressure Mean 81 03/25/19 06:21 Blood Pressure Position Supine 03/24/19 07:50 Pulse Oximetry 96 03/26/19 15:39 Oxygen Delivery Method Nasal Cannula 03/26/19 15:39 Oxygen Flow Rate 2 03/26/19 15:39 Pain Level 8 03/26/19 15:39 Comment 03/26/19 15:39 Intake & Output 03/25/19 03/26/19 03/26/19 23:59 11:59 23:59 Intake Total 150 / 1220 320 / 470 150 / 470 Output Total 1300 / 1900 1900 / 2250 350 / 2250 Balance -1150 / -680 -1580 / -1780 -200 / -1780 Weight 157.5 kg Intake: IV 150 / 750 80 / 80 Oral 240 / 390 150 / 390 Output: Urine 1300 / 1900 1900 / 2250 350 / 2250 Other: Urine Color Yellow Pale Pale Yellow Yellow Urine Appearance Cloudy Clear Clear Stool Occult Blood Positive Negative Stool Size Large Large Moderate Stool Characteristics Liquid Foamy Soft Brown Liquid Laboratory Results WBC 3.76 k/cumm (4.4-10.8) L 03/26/19 06:50 RBC 2.94 m/cumm (4.00-5.20) L 03/26/19 06:50 Hgb 8.7 g/dL (12.0-15.5) L 03/26/19 06:50 Hct 28.4 % (36.0-46.0) L 03/26/19 06:50 MCV 96.6 fL (80-95) H 03/26/19 06:50 MCH 29.6 pg (27.0-33.0) 03/26/19 06:50 MCHC 30.6 g/dL (32.0-36.0) L 03/26/19 06:50 RDW 15.5 % (11.7-14.6) H 03/26/19 06:50 Plt Count 184 x1000/uL (130-400) 03/26/19 06:50 MPV 9.4 fL (8.0-11.0) 03/26/19 06:50 Immature Gran % 0.3 % 03/26/19 06:50 Neutrophils % 73.7 03/26/19 06:50 Lymphocytes % 18.1 03/26/19 06:50 Monocytes % 7.4 03/26/19 06:50 Eosinophils % 0.5 03/26/19 06:50 Basophils % 0.0 03/26/19 06:50 Absolute Neutrophils 2.77 k/cumm (1.2-6.7) 03/26/19 06:50 Absolute Lymphocytes 0.68 k/cumm (1.2-3.4) L 03/26/19 06:50 Absolute Monocytes 0.28 k/cumm (0.11-0.7) 03/26/19 06:50 Absolute Eosinophils 0.02 k/cumm (0.0-0.7) 03/26/19 06:50 Absolute Basophils 0.00 k/cumm (0.0-0.2) 03/26/19 06:50 Differential Comment Rbc morph reviewed 03/25/19 06:15 RBC Morphology See below 03/25/19 06:15 Polychromasia Present 03/25/19 06:15 Hypochromasia 1+ 03/25/19 06:15 Poikilocytosis 1+ 03/25/19 06:15 Anisocytosis 1+ 03/25/19 06:15 D-Dimer 1660 ng/mlFEU (<500) H 03/23/19 14:35 VBG pH 7.42 (7.35-7.45) 03/23/19 22:17 VBG pCO2 40 mm/Hg (34-47) 03/23/19 22:17 VBG pO2 54 mm/Hg (28-44) H 03/23/19 22:17 VBG HCO3 26 mmol/L (22-28) 03/23/19 22:17 VBG Total CO2 24 mmol/L (22-29) 03/23/19 22:17 VBG O2 Saturation 89 % (70-80) H 03/23/19 22:17 VBG Base Excess 1.1 mmol/L (-3-3) 03/23/19 22:17 Sodium 141 mmol/L (136-145) 03/26/19 06:50 Potassium 3.6 mmol/L (3.5-5.1) 03/26/19 06:50 Chloride 105 mmol/L (98-107) 03/26/19 06:50 Carbon Dioxide 29.1 mmol/L (21.0-32.0) 03/26/19 06:50 Anion Gap 6.9 mmol/L (3-11) 03/26/19 06:50 BUN 23 mg/dL (7-18) H 03/26/19 06:50 Creatinine 1.14 mg/dL (0.55-1.02) H 03/26/19 06:50 Estimated GFR/1.73 m2 48.62 (mL/min/1.73m2) 03/26/19 06:50 Glucose 162 mg/dL (74-106) H 03/26/19 06:50 Lactate 1.2 mmol/L (0.6-1.4) 03/24/19 10:30 Calcium 7.7 mg/dL (8.5-10.1) L 03/26/19 06:50 Magnesium 2.1 mg/dL (1.8-2.4) 03/26/19 06:50 Total Bilirubin 0.7 mg/dL (0.2-1.0) 03/24/19 06:30 AST 27 U/L (15-37) 03/24/19 06:30 ALT 18 U/L (14-59) 03/24/19 06:30 Alkaline Phosphatase 100 U/L (46-116) 03/24/19 06:30 Troponin I < 0.05 ng/Ml (<0.06) 03/23/19 17:38 NT-Pro-B Natriuret Pep 309 pg/mL (<300) H 03/23/19 14:35 Total Protein 6.8 g/dL (6.4-8.2) 03/24/19 06:30 Albumin 2.5 g/dL (3.4-5.0) L 03/24/19 06:30 Lipase 80 U/L (73-393) 03/23/19 14:35 TSH 0.05 uIU/mL (0.36-3.74) L 03/24/19 06:30 Free T4 1.12 ng/dL (0.76-1.46) 03/23/19 18:43 Urine Color Yellow (Yellow) 03/23/19 14:42 Urine Clarity Cloudy (Clear) 03/23/19 14:42 Urine pH 5.0 (5-8) 03/23/19 14:42 Ur Specific [place] >= 1.030 (1.005-1.025) H 03/23/19 14:42 Urine Protein 30 mg/dL (Negative) H 03/23/19 14:42 Urine Ketones Negative mg/dL (Negative) 03/23/19 14:42 Urine Blood Moderate (Negative) H 03/23/19 14:42 Urine Nitrite Negative (Negative) 03/23/19 14:42 Urine Bilirubin Negative (Negative) 03/23/19 14:42 Urine Urobilinogen 0.2 EU/dL (Up TO 0.2) 03/23/19 14:42 Ur Leukocyte Esterase Small (Negative) H 03/23/19 14:42 Urine RBC Not Applicable 03/23/19 14:42 Urine WBC >50 HPF (0-5) H 03/23/19 14:42 Ur Epithelial Cells Not Applicable 03/23/19 14:42 Urine Crystals Not Applicable 03/23/19 14:42 Urine Bacteria Packed HPF (Negative) 03/23/19 14:42 Urine Mucus Not Applicable 03/23/19 14:42 Ur Culture Indicated? C&s done as ordered 03/23/19 14:42 Urine Glucose 250 mg/dL (Negative) H 03/23/19 14:42
[2019-03-26] MEDS: DULoxetine 30 MG CAP 60 MG PO (21:32)
[2019-03-26] MEDS: Atorvastatin 20 MG TAB 40 MG PO (21:32)
[2019-03-26] MEDS: Montelukast 10 MG TAB PO (21:32)
[2019-03-27] VITALS (9 sets, daily range): BP systolic 100–136; BP diastolic 64–78; PULSE 71–83; RESP 18–20; TEMP 36.4–37.6; O2SAT 86–96
[2019-03-27] MEDS: Hydrocortisone SOD SUC. 100 MG VIAL 25 MG IVP (06:10)
[2019-03-27] MEDS: Cefpodoxime 200 MG TAB 400 MG PO ×2 (06:10→18:21)
[2019-03-27] MEDS: Vancomycin 125 MG CAP PO ×3 (06:10→18:20)
[2019-03-27] MEDS: Heparin 5,000 UNITS/ML VIAL 5000 UNITS SC (06:10)
[2019-03-27] MEDS: Levothyroxine 150 MCG TAB PO (06:10)
[2019-03-27] MEDS: Normal Saline Flush 10 ML SYR IVP ×2 (06:11→08:07)
[2019-03-27] MEDS: Patch Removal 1 EACH TP (06:13)
[2019-03-27 07:35] LABS: Abs Immature Grans 0.01 k/cumm (0.0-0.09); Absolute Eosinophil Count 0.03 k/cumm (0.0-0.7); Absolute Lymphocyte Count 1.25 k/cumm (1.2-3.4); Absolute Monocyte Count 0.41 k/cumm (0.11-0.7); Absolute Neutrophil Count 2.47 k/cumm (1.2-6.7); Eosinophils % 0.7; HCT 29.8 % (36.0-46.0); HGB 9.3 g/dL (12.0-15.5); Immature Grans % 0.2 %; Mean Corp. HGB Concentration 31.2 g/dL (32.0-36.0); Mean Corpuscular Hemoglobin 30.2 pg (27.0-33.0); Mean Corpuscular Volume 96.8 fL (80-95); Mean Platelet Volume 9.4 fL (8.0-11.0); Monocytes % 9.8; Neutrophils % 59.3; Platelet Count 205 x1000/uL (130-400); RBC 3.08 m/cumm (4.00-5.20); RBC Distribution Width 15.4 % (11.7-14.6); White Blood Cell Count 4.17 k/cumm (4.4-10.8)
[2019-03-27 07:37] LABS: Anion Gap 6.5 mmol/L (3-11); BUN 20 mg/dL (7-18); CO2 31.5 mmol/L (21.0-32.0); CREATININE 0.95 mg/dL (0.55-1.02); Calcium 8.1 mg/dL (8.5-10.1); Chloride 106 mmol/L (98-107); Magnesium 1.8 mg/dL (1.8-2.4); Potassium 3.1 mmol/L (3.5-5.1); Sodium 144 mmol/L (136-145)
[2019-03-27 07:52] LABS: Glucose 50 mg/dL (74-106)
[2019-03-27] MEDS: Dextrose 50%-Water 25 GM/50 ML SYR IVP (08:06)
[2019-03-27] MEDS: Furosemide 20 MG/2 ML VIAL IVP (08:47)
[2019-03-27] MEDS: fentaNYL 25 MCG PATCH TD (08:48)
[2019-03-27] MEDS: Aspirin E.C. 81 MG TABEC PO (08:49)
[2019-03-27] MEDS: Pregabalin 50 MG CAP 200 MG PO ×3 (08:49→20:30)
[2019-03-27] MEDS: carBAMazepine 200 MG TAB PO ×2 (08:49→20:31)
[2019-03-27] MEDS: Ferrous Sulfate 325 MG TAB PO ×3 (08:49→20:31)
[2019-03-27] MEDS: Letrozole 2.5 MG TAB PO (08:49)
[2019-03-27] MEDS: Folic Acid 1 MG TAB PO (08:50)
[2019-03-27] MEDS: Cetirizine 10 MG TAB PO (08:50)
[2019-03-27] MEDS: guaiFENesin 600 MG TABCR PO ×2 (08:50→20:30)
[2019-03-27] MEDS: Cyanocobalamin 500 MCG TAB 1000 MCG PO (08:50)
[2019-03-27] MEDS: Loratidine 10 MG TAB PO (08:50)
[2019-03-27] MEDS: Potassium Chloride 20 MEQ TABCR 40 MEQ PO ×2 (09:07→15:08)
[2019-03-27] MEDS: Hydrocortisone 10 MG TAB 20 MG PO (09:07)
--- NOTE | 2019-03-27 09:49 | PT.INTREAT ---
Date of service: 03/27/19 Time of Service: 09:49 PT Notes Visit Reasons: UTI, ACUTE KIDNEY INJURY 03/27/19 SUBJECTIVE: Pt refuses to get out of bed this morning. She notes feeling weak. She did get up out of bed to get on the scale this AM. OBJECTIVE: Supine in bed. Agreeable to supine exercises. Refuses OOB. TRANSFERS/GAIT: No observed. THEREX: Bed exercises performed bilateral UE/R LE. AA ROM at the right LE. Refuses L LE strengthening due to knee pain. See flow sheet for specifics. ASSESSMENT: Refuses mobility today despite encouragement. She notes she will try again tomorrow. Pt continues to require skilled PT services to maximize her mobility and strength. PLAN: Continue current POC. Treatment time: 12 minutes [id number] Adrianne Mera PTA
[2019-03-27] MEDS: Tiotropium Bromide-Respimat 10 PUFF INH IH (10:50)
[2019-03-27] MEDS: Budesonide/Formoterol 160/4.5 6 GM 60 PUFF INH IH ×2 (10:51→20:28)
[2019-03-27] MEDS: Hydrocortisone 10 MG TAB 5 MG PO (12:30)
[2019-03-27] MEDS: Insulin Aspart 300 UNITS/3 ML PEN SC ×3 (12:31→22:31)
[2019-03-27] MEDS: Hydrocortisone 10 MG TAB 25 MG PO ×2 (14:06→20:30)
--- NOTE | 2019-03-27 14:34 | W.PM.PROGNOT ---
Date of Service Date of service: 03/27/19 Time of Service: 14:35 Assessment and Plan Assessment and plan (1) Sepsis: Start date: 03/27/19 Start time: 14:38 Status: Acute Assessment and plan: Due to E. Coli UTI, POA, with E. Coli bacteremia. Defervesced and improving clinically. Discussed with [facility]: recommended switching to PO cefpodoxime; 10 day course from 1st negative blood culture - end date would be 04/04/2019. Provide PO vancomycin for C. diff prophylaxis. C. diff pending. (2) E. coli bacteremia: Start date: 03/27/19 Start time: 14:39 Status: Acute Assessment and plan: As above (3) Urinary tract infection: Start date: 03/27/19 Start time: 14:39 Status: Acute Assessment and plan: Present on admission. As above. Qualifiers: Hematuria presence: without hematuria Urinary tract infection type: site unspecified Qualified Code(s): N39.0 - Urinary tract infection, site not specified (4) Adrenal insufficiency: Start date: 03/27/19 Start time: 14:39 Status: Chronic Assessment and plan: Continue stress dose steroid taper (5) Toxic metabolic encephalopathy: Start date: 03/27/19 Start time: 14:39 Status: Resolved Assessment and plan: Likely due to UTI. Completely resolved, per patient, daughter. Monitor mental status. (6) Obstructive sleep apnea: Start date: 03/27/19 Start time: 14:40 Status: Chronic Assessment and plan: Provide HS O2. Suspicion for PE low. (7) Acute kidney injury superimposed on chronic kidney disease: Start date: 03/27/19 Start time: 14:40 Status: Acute Assessment and plan: Resolved. Tolerated diuresis. (8) Discharge planning issues: Start date: 03/27/19 Start time: 14:43 Status: Acute Assessment and plan: Full code. Likely discharge home this weekend. (9) DVT prophylaxis: Start date: 03/27/19 Start time: 14:43 Status: Acute Assessment and plan: Heparin SC. Venous dopplers could not definitively rule out DVT - poor study - but no obvious clots seen. (10) Hypokalemia: Start date: 03/27/19 Start time: 14:43 Status: Acute Assessment and plan: Replete with PO k+ and recheck bmp in am (11) Hypoglycemia: Start date: 03/27/19 Start time: 14:44 Status: Acute Assessment and plan: By am labs and fingerstick. Feeling weaker. Will monitor overnight and watch fingersticks. Above case discussed with Dr. Huynh who is in agreement. Subjective Subjective Patient reports: other Interval history since last seen: Feeling weaker today. Am glucose 50, fingerstick 64 given amp d50 and meal repeat fingerstick 96. States this does not happen often but when it does usually takes her all day to feel less weak and increase sugar. Will keep overnight. Repeat BMP. She denies CP, SOB, N/V/D Exam Narrative Exam Narrative: General: Very pleasant obese female, A&OX3, sitting up in bed, no tachypnea noted, feeling weaker today HEENT: EOMI, MMM Heart: RRR Lungs: CTAB Abdomen: soft, obese, rash under pannus Extremities: trace BLE edema, trace pedal pulses, venous stasis dermatitis; RLE wound dressed Objective Objective Clinical Data: Abnormal lab results 03/27/19 03/27/19 Range/Units 06:47 06:47 WBC 4.17 L (4.4-10.8) k/cumm RBC 3.08 L (4.00-5.20) m/cumm Hgb 9.3 L (12.0-15.5) g/dL Hct 29.8 L (36.0-46.0) % MCV 96.8 H (80-95) fL MCHC 31.2 L (32.0-36.0) g/dL RDW 15.4 H (11.7-14.6) % Potassium 3.1 L (3.5-5.1) mmol/L BUN 20 H (7-18) mg/dL Glucose 50 L D (74-106) mg/dL Calcium 8.1 L (8.5-10.1) mg/dL Vital Signs Temperature 36.9 C 03/27/19 07:58 Temperature Source Tympanic 03/27/19 07:58 Pulse 83 03/27/19 07:58 Pulse Rhythm Regular 03/27/19 10:48 Pulse 104 H 03/24/19 14:00 Respiratory Rate 18 03/27/19 07:58 Respiratory Effort 03/27/19 10:48 Respiratory Depth Normal 03/27/19 10:48 Respiratory Pattern Normal 03/27/19 10:48 Blood Pressure 109/74 03/27/19 07:58 Blood Pressure Mean 81 03/25/19 06:21 Blood Pressure Position Supine 03/24/19 07:50 Pulse Oximetry 96 03/27/19 07:58 Oxygen Delivery Method Nasal Cannula 03/27/19 07:58 Oxygen Flow Rate 2 03/27/19 07:58 Pain Level 0 03/27/19 07:58 Comment 03/26/19 15:39 Intake & Output 03/26/19 03/27/19 03/27/19 23:59 11:59 23:59 Intake Total 550 / 920 Output Total 1050 / 2950 550 / 550 Balance -500 / -2030 -550 / -550 Weight 153.5 kg Intake: Oral 550 / 790 Output: Urine 1050 / 2950 550 / 550 Other: Urine Color Light Giselle Yellow Urine Appearance Clear Clear Stool Occult Blood Negative Positive Stool Size Moderate Moderate Small Stool Characteristics Soft Liquid Liquid Liquid Laboratory Results WBC 4.17 k/cumm (4.4-10.8) L 03/27/19 06:47 RBC 3.08 m/cumm (4.00-5.20) L 03/27/19 06:47 Hgb 9.3 g/dL (12.0-15.5) L 03/27/19 06:47 Hct 29.8 % (36.0-46.0) L 03/27/19 06:47 MCV 96.8 fL (80-95) H 03/27/19 06:47 MCH 30.2 pg (27.0-33.0) 03/27/19 06:47 MCHC 31.2 g/dL (32.0-36.0) L 03/27/19 06:47 RDW 15.4 % (11.7-14.6) H 03/27/19 06:47 Plt Count 205 x1000/uL (130-400) 03/27/19 06:47 MPV 9.4 fL (8.0-11.0) 03/27/19 06:47 Immature Gran % 0.2 % 03/27/19 06:47 Neutrophils % 59.3 03/27/19 06:47 Lymphocytes % 30.0 03/27/19 06:47 Monocytes % 9.8 03/27/19 06:47 Eosinophils % 0.7 03/27/19 06:47 Basophils % 0.0 03/27/19 06:47 Absolute Neutrophils 2.47 k/cumm (1.2-6.7) 03/27/19 06:47 Absolute Lymphocytes 1.25 k/cumm (1.2-3.4) 03/27/19 06:47 Absolute Monocytes 0.41 k/cumm (0.11-0.7) 03/27/19 06:47 Absolute Eosinophils 0.03 k/cumm (0.0-0.7) 03/27/19 06:47 Absolute Basophils 0.00 k/cumm (0.0-0.2) 03/27/19 06:47 Differential Comment Rbc morph reviewed 03/25/19 06:15 RBC Morphology See below 03/25/19 06:15 Polychromasia Present 03/25/19 06:15 Hypochromasia 1+ 03/25/19 06:15 Poikilocytosis 1+ 03/25/19 06:15 Anisocytosis 1+ 03/25/19 06:15 D-Dimer 1660 ng/mlFEU (<500) H 03/23/19 14:35 VBG pH 7.42 (7.35-7.45) 03/23/19 22:17 VBG pCO2 40 mm/Hg (34-47) 03/23/19 22:17 VBG pO2 54 mm/Hg (28-44) H 03/23/19 22:17 VBG HCO3 26 mmol/L (22-28) 03/23/19 22:17 VBG Total CO2 24 mmol/L (22-29) 03/23/19 22:17 VBG O2 Saturation 89 % (70-80) H 03/23/19 22:17 VBG Base Excess 1.1 mmol/L (-3-3) 03/23/19 22:17 Sodium 144 mmol/L (136-145) 03/27/19 06:47 Potassium 3.1 mmol/L (3.5-5.1) L 03/27/19 06:47 Chloride 106 mmol/L (98-107) 03/27/19 06:47 Carbon Dioxide 31.5 mmol/L (21.0-32.0) 03/27/19 06:47 Anion Gap 6.5 mmol/L (3-11) 03/27/19 06:47 BUN 20 mg/dL (7-18) H 03/27/19 06:47 Creatinine 0.95 mg/dL (0.55-1.02) 03/27/19 06:47 Estimated GFR/1.73 m2 >= 60.00 (mL/min/1.73m2) 03/27/19 06:47 Glucose 50 mg/dL (74-106) L D 03/27/19 06:47 Lactate 1.2 mmol/L (0.6-1.4) 03/24/19 10:30 Calcium 8.1 mg/dL (8.5-10.1) L 03/27/19 06:47 Magnesium 1.8 mg/dL (1.8-2.4) 03/27/19 06:47 Total Bilirubin 0.7 mg/dL (0.2-1.0) 03/24/19 06:30 AST 27 U/L (15-37) 03/24/19 06:30 ALT 18 U/L (14-59) 03/24/19 06:30 Alkaline Phosphatase 100 U/L (46-116) 03/24/19 06:30 Troponin I < 0.05 ng/Ml (<0.06) 03/23/19 17:38 NT-Pro-B Natriuret Pep 309 pg/mL (<300) H 03/23/19 14:35 Total Protein 6.8 g/dL (6.4-8.2) 03/24/19 06:30 Albumin 2.5 g/dL (3.4-5.0) L 03/24/19 06:30 Lipase 80 U/L (73-393) 03/23/19 14:35 TSH 0.05 uIU/mL (0.36-3.74) L 03/24/19 06:30 Free T4 1.12 ng/dL (0.76-1.46) 03/23/19 18:43 Urine Color Yellow (Yellow) 03/23/19 14:42 Urine Clarity Cloudy (Clear) 03/23/19 14:42 Urine pH 5.0 (5-8) 03/23/19 14:42 Ur Specific [place] >= 1.030 (1.005-1.025) H 03/23/19 14:42 Urine Protein 30 mg/dL (Negative) H 03/23/19 14:42 Urine Ketones Negative mg/dL (Negative) 03/23/19 14:42 Urine Blood Moderate (Negative) H 03/23/19 14:42 Urine Nitrite Negative (Negative) 03/23/19 14:42 Urine Bilirubin Negative (Negative) 03/23/19 14:42 Urine Urobilinogen 0.2 EU/dL (Up TO 0.2) 03/23/19 14:42 Ur Leukocyte Esterase Small (Negative) H 03/23/19 14:42 Urine RBC Not Applicable 03/23/19 14:42 Urine WBC >50 HPF (0-5) H 03/23/19 14:42 Ur Epithelial Cells Not Applicable 03/23/19 14:42 Urine Crystals Not Applicable 03/23/19 14:42 Urine Bacteria Packed HPF (Negative) 03/23/19 14:42 Urine Mucus Not Applicable 03/23/19 14:42 Ur Culture Indicated? C&s done as ordered 03/23/19 14:42 Urine Glucose 250 mg/dL (Negative) H 03/23/19 14:42
[2019-03-27] MEDS: Lidocaine 5% Patch 1 PATCH TP (18:21)
--- NOTE | 2019-03-27 19:11 | CMPROGNOTE_ITS ---
- If Service Date Differs Date of service: 03/27/19 Time of Service: 19:11 Care Management Progress Note S/O: Candace was sitting up in a chair when CM met with her briefly. She was having diarrhea and stated that she was not feeling well. She needed to use the commode. CM left the room and Candace was asleep when CM returned. She is scheduled to be discharged tomorrow. A: Candace is a 59 year old female admitted to [facility] on 03/23/2019 for UTI, [place]. P: Anticipate Candace will return home when medically cleared, possibly with new services. She has requested a bariatric w/c, which CM will send orders for. Her daughter will drive her home via private vehicle when ready. She will follow up with her PCP, as recommended. CM will continue to follow and support discharge planning considerations.
[2019-03-27] MEDS: DULoxetine 30 MG CAP 60 MG PO (22:30)
[2019-03-27] MEDS: Atorvastatin 20 MG TAB 40 MG PO (22:30)
[2019-03-27] MEDS: Montelukast 10 MG TAB PO (22:31)
[2019-03-28] VITALS (7 sets, daily range): BP systolic 103–143; BP diastolic 67–78; PULSE 70–78; RESP 18–20; TEMP 36.1–37; O2SAT 88–94
[2019-03-28] MEDS: Vancomycin 125 MG CAP PO ×3 (00:10→12:13)
[2019-03-28] MEDS: Cefpodoxime 200 MG TAB 400 MG PO (05:25)
[2019-03-28] MEDS: Levothyroxine 150 MCG TAB PO (05:26)
[2019-03-28] MEDS: Patch Removal 1 EACH TP (05:27)
[2019-03-28 07:20] LABS: HGB 9.2 g/dL (12.0-15.5); Mean Corp. HGB Concentration 31.7 g/dL (32.0-36.0); Mean Corpuscular Hemoglobin 30.6 pg (27.0-33.0); Mean Corpuscular Volume 96.3 fL (80-95); Mean Platelet Volume 9.3 fL (8.0-11.0); Platelet Count 211 x1000/uL (130-400); RBC 3.01 m/cumm (4.00-5.20); RBC Distribution Width 15.4 % (11.7-14.6); White Blood Cell Count 3.54 k/cumm (4.4-10.8)
[2019-03-28 07:32] LABS: Anion Gap 5.5 mmol/L (3-11); BUN 20 mg/dL (7-18); CO2 31.5 mmol/L (21.0-32.0); CREATININE 0.84 mg/dL (0.55-1.02); Calcium 8.5 mg/dL (8.5-10.1); Chloride 107 mmol/L (98-107); Glucose 85 mg/dL (74-106); Potassium 3.9 mmol/L (3.5-5.1); Sodium 144 mmol/L (136-145)
[2019-03-28] MEDS: Tiotropium Bromide-Respimat 10 PUFF INH IH (08:08)
[2019-03-28] MEDS: Budesonide/Formoterol 160/4.5 6 GM 60 PUFF INH IH (08:08)
[2019-03-28] MEDS: Cyanocobalamin 500 MCG TAB 1000 MCG PO (08:39)
[2019-03-28] MEDS: Folic Acid 1 MG TAB PO (08:39)
[2019-03-28] MEDS: Ferrous Sulfate 325 MG TAB PO ×2 (08:40→13:34)
[2019-03-28] MEDS: Cetirizine 10 MG TAB PO (08:40)
[2019-03-28] MEDS: Loratidine 10 MG TAB PO (08:40)
[2019-03-28] MEDS: Pregabalin 50 MG CAP 200 MG PO ×2 (08:41→13:38)
[2019-03-28] MEDS: carBAMazepine 200 MG TAB PO (08:41)
[2019-03-28] MEDS: Letrozole 2.5 MG TAB PO (08:48)
[2019-03-28] MEDS: Aspirin E.C. 81 MG TABEC PO (08:48)
[2019-03-28] MEDS: guaiFENesin 600 MG TABCR PO (08:48)
[2019-03-28] MEDS: Hydrocortisone 10 MG TAB 50 MG PO (09:57)
--- NOTE | 2019-03-28 10:39 | PTTR_ITS ---
Date of service: 03/28/19 Time of Service: 10:39 PT Notes Visit Reasons: UTI, ACUTE KIDNEY INJURY 03/28/19 SUBJECTIVE: Candace stating she is feeling better today. She may be going home. OBJECTIVE: Agreeable to PT treatment. TRANSFERS Supine to sit: Min A Sit to stand: Mod A x2 Stand to sit: min A x 1 GAIT Device: FWW Weight bearing: WBAT Assist: MIn A x 1 Distance: 3 steps to the chair ASSESSMENT: Progressing well today with her mobility. She has a stander chair at home and this assist her from sit to stand position which is where she requires most of her assist from us today. PLAN: Continue current POC. Treatment time: 15 Adrianne Mera, DIRECTOR [employer] SYSTEM[employer]
--- NOTE | 2019-03-28 11:08 | W.PM.DS.N ---
Date of service: 03/28/19 Time of Service: 11:08 DS: Diagnosis Discharge Diagnosis (1) Sepsis: Start date: 03/28/19 Start time: 11:08 Status: Acute Asessment and Plan: Resolved due to e.coli bacteremia. Will finish a full 10 day course cefpodoxime end date 04/04/2019 (2) E. coli bacteremia: Start date: 03/28/19 Start time: 11:09 Status: Acute Asessment and Plan: from UTI. see above (3) Urinary tract infection: Status: Acute (4) Adrenal insufficiency: Start date: 03/28/19 Start time: 11:10 Status: Chronic Asessment and Plan: Taper stress dose steroids. (5) Toxic metabolic encephalopathy: Start date: 03/28/19 Start time: 11:11 Status: Resolved Asessment and Plan: Back to baseline, from UTI, see above. (6) Obstructive sleep apnea: Start date: 03/28/19 Start time: 11:11 Status: Chronic Asessment and Plan: Continue PRN oxygen (7) Acute kidney injury superimposed on chronic kidney disease: Start date: 03/28/19 Start time: 11:11 Status: Acute Asessment and Plan: Resolved. Back to baseline (8) Discharge planning issues: Start date: 03/28/19 Start time: 11:11 Status: Acute (9) DVT prophylaxis: Status: Acute (10) Hypokalemia: Start date: 03/28/19 Start time: 11:12 Status: Acute Asessment and Plan: Resolved (11) Hypoglycemia: Start date: 03/28/19 Start time: 11:12 Status: Acute Asessment and Plan: Resolved Discharge Plan Disposition Patient Disposition: HOME Condition: Improving Discharge Details Chief Complaint: Nausea/Vomit/Diar Clinical Impression: UTI (urinary tract infection), Sepsis, Hypoxia Reason For Visit: UTI, ACUTE KIDNEY INJURY Admit Date/Time: 03/23/19 18:37 Admit Provider: Robert Collado Attending Provider: Robert Collado Primary Care Provider: Jan Coleman ED Provider: [facility] Course Hospital Course: 59 y.o female with history breast cancer with mets to the bone, adrenal insufficiency, CKD, RAKAN, COPD, DM, and obesity admitted from [facility] ED for sepsis from UTI. She was found to have metabolic encephalopathy, chills, and septic syndrome. Initially thought to have a PE, CT with contrast revealed left axilla mass, metastatic disease, low suspicion for PE though U/S BLE done, was limited due to large body habitus. U/A with small leukocyte estrase, urine culture grew e coli with bacteremia growing e. coli. both pansensitive. [facility] contacted with results recommend cefpodoxime from st negative blood culture. Will finish full course cefpodoxime on 04/04/2019. While in the hospital also found to be in fluid overload, diuresised with good effect. Mental status back to baseline. On stress dose taper, which will be completed over next 2 days at home. Patient is doing well. Ready for discharge. She will need follow up as an outpatient in about 1 week. Palliative will follow her in the community. She denies CP, SOB, N/V/D. Home Meds and New Rx's Prescriptions: New hydrocodone-acetaminophen 5-325 mg Tablet 2 tab PO Q4H PRN PRNQty: 5 RF: 0 fentanyl [Duragesic] 25 mcg/hr Patch 72 Hour 25 mcg transdermal Q72H Qty: 3 RF: 0 vancomycin 125 mg Capsule 125 mg PO Q6H Qty: 30 RF: 0 cefpodoxime 200 mg tablet 400 mg PO BID Qty: 30 RF: 0 Continued pregabalin [Lyrica] 200 MG capsule 200 mg PO TID RF: 0 montelukast [Singulair] 10 MG tablet 10 mg PO DAILY RF: 0 cetirizine [Zyrtec] 10 MG tablet 10 mg PO DAILY RF: 0 ferrous sulfate 325 MG tablet 325 mg PO TID RF: 0 carbamazepine 200 MG tablet 200 mg PO BID RF: 0 atorvastatin [Lipitor] 20 MG tablet 40 mg PO HS RF: 0 cyanocobalamin (vitamin B-12) [Vitamin B-12] 1,000 MCG tablet 1,000 mcg PO DAILY RF: 0 aspirin [Aspir-81] 81 MG tablet,delayed release (DR/EC) 81 mg PO DAILY RF: 0 folic acid 1 MG tablet 1 mg PO DAILY RF: 0 duloxetine [Cymbalta] 60 MG capsule,delayed release(DR/EC) 60 mg PO HS RF: 0 Spiriva Respimat 4 GM mist 1 puff Inhalation DAILY RF: 0 Symbicort 10.2 GM HFA aerosol inhaler 2 puff Inhalation BID RF: 0 ondansetron HCl [Zofran] 8 MG tablet 8 mg PO TID PRNRF: 0 hydrocortisone 5 mg Tablet 5 mg PO QNOON RF: 0 levothyroxine 150 mcg Tablet 150 mcg PO DAILY RF: 0 hydrocortisone 10 mg Tablet 20 mg PO QAM RF: 0 Trulicity 1.5 mg/0.5 mL Pen Injector 1.5 mg SUBCUT QWEEK RF: 0 benzonatate 200 mg Capsule 200 mg PO TID PRN (Reason: cough) Qty: 15 RF: 0 guaifenesin [Mucinex] 600 mg Tablet Extended Release 12hr 600 mg PO BID Qty: 10 RF: 0 loratadine 10 mg Tablet 10 mg PO DAILY RF: 0 duloxetine [Cymbalta] 60 mg Capsule,Delayed Release(Dr/Ec) 60 mg PO HS RF: 0 Humulin R U-500 (Conc) Kwikpen 500 unit/mL (3 mL) Insulin Pen 100 unit SUBCUT QAM RF: 0 Humulin R U-500 (Conc) Kwikpen 500 unit/mL (3 mL) Insulin Pen 50 unit SUBCUT QNOON RF: 0 Humulin R U-500 (Conc) Kwikpen 500 unit/mL (3 mL) Insulin Pen 50 unit SUBCUT QPM RF: 0 letrozole 2.5 mg Tablet 2.5 mg PO DAILY RF: 0 Prevalite 4 gram Powder In Packet 4 g PO BID@1000,2000 PRN (Reason: prn diarrhea) Qty: 10 RF: 0 ranitidine HCl 300 mg capsule 300 mg PO QHS Qty: 30 RF: 0 Verzenio 150 mg Tablet 150 mg PO BID Qty: 0 RF: 0 Lactobacillus acidophilus Capsule 1,000 mmu cells PO DAILY Qty: 30 RF: 0 Discharge Instructions Instructions: Urinary Tract Infection in Women (DC), Pharmacological Management of Cancer Pain (DC), Secondary Adrenal Insufficiency (DC) Additional Instructions: Take all of antibiotics until finished. Take probiotic and eat a yogurt daily, until one month after taking antibiotics Follow up with your primary provider in 1 week. Take an extra 25 mg of hydrocortisone for today for a total of 50 then resume usual dose tomorrow. Make sure to eat a snack before bed so you do not wake up with low blood sugar. Stand Alone Forms: Nursing Discharge Form Referrals: Jan Coleman [Primary Care Provider] - (Please call Friday for make a follow up appointment. ) Activity:: Activity as Tolerated Equipment/Supplies:: No Equipment Needed Diet:: Carb Counting Discharge Orders Discharge Orders: Discharge Order (Routine); Ordered 03/28/19 Ordered By: Ami Sanchez DS: Summary Status at Discharge Functional status at discharge: uses cane/walker Overall status at discharge: patient is back to baseline Mental Status: mental status grossly normal Speech and Movement: speech and movement normal Mood: congruent mood Affect: normal affect Exam Narrative Exam Narrative: General: Very pleasant obese female, A&OX3, sitting up in chair HEENT: EOMI, MMM Heart: RRR Lungs: CTAB Abdomen: soft, obese, rash under pannus Extremities: trace BLE edema, trace pedal pulses, venous stasis dermatitis; RLE wound dressed Psych Mental Status: mental status grossly normal Speech and Movement: speech and movement normal Mood: congruent mood Affect: normal affect DS: Data Vitals/I&O Vitals and I&O: Vital Signs Temperature 36.8 C 03/28/19 07:00 Temperature Source Tympanic 03/28/19 07:00 Pulse 72 03/28/19 07:00 Pulse Rhythm Regular 03/28/19 08:30 Pulse 104 H 03/24/19 14:00 Respiratory Rate 18 03/28/19 07:00 Respiratory Effort Non-Labored 03/28/19 08:30 Respiratory Depth Normal 03/28/19 08:30 Respiratory Pattern Normal 03/28/19 08:30 Blood Pressure 141/75 H 03/28/19 07:00 Blood Pressure Mean 81 03/25/19 06:21 Blood Pressure Position Supine 03/24/19 07:50 Pulse Oximetry 93 L 03/28/19 08:12 Oxygen Delivery Method Nasal Cannula 03/28/19 08:12 Oxygen Flow Rate 1 03/28/19 08:12 Pain Level 0 03/28/19 07:00 Comment 03/26/19 15:39 Intake & Output 03/27/19 03/27/19 03/28/19 11:59 23:59 11:59 Intake Total 170 / 170 Output Total 550 / 1000 450 / 1000 650 / 650 Balance -550 / -830 -280 / -830 -650 / -650 Weight 153.5 kg 153.5 kg Intake: IV 50 / 50 Oral 120 / 120 Output: Urine 550 / 1000 450 / 1000 650 / 650 Other: Urine Color Yellow Light Giselle Straw Urine Appearance Clear Clear Clear Stool Occult Blood Positive Stool Size Moderate Moderate Stool Characteristics Liquid Formed Data Completed and Pending Completed studies during hospitalization [Text1]: Tracheobronchial tree: Patent where visualized. Mediastinum and Mariely: No dominant adenopathy or fluid collection. Pulmonary parenchyma: No consolidation or dominant measurable mass. No architectural distortion. Pleura: No effusion or pneumothorax. Aorta: Atherosclerosis. No aneurysmal dilatation. Heart: Cardiomegaly. No pericardial effusion. No significant coronary artery calcification. Bones: Degenerative changes seen in the spine no acute fracture or subluxation. Tubes, catheters and devices: There is an Mhzfhb-N-Soif catheter in the right chest wall. The tip terminates in the superior vena cava. Soft tissues: There is a 5 x 2.7 centimeter soft tissue mass in the left axilla with calcification. ABDOMEN: Liver: Normal density. No measurable mass. Hepatomegaly. Gallbladder and biliary tract: No calculi. Distended. Pancreas: Normal density, no abnormal calcifications or inflammatory process. Spleen: Normal. Kidneys: Normal size, contour and axis. No radiodense stones or obstructive uropathy. No masses seen. Adrenal glands: 2.3 centimeter fat density left adrenal mass. This likely reflects a benign adenoma or myelolipoma. Lymph nodes: Within normal limits. Aorta: Mild atherosclerosis. No aneurysmal dilatation. PELVIS: Bladder: Poorly distended which limits evaluation. Bowel: Colonic diverticulosis but no evidence of acute diverticulitis. No evidence of acute appendicitis. Peritoneal cavity: No ascites. Mild stranding in the right retroperitoneum of uncertain if any clinical significance. Bones: Sclerosis of the right iliac bone. No associated soft tissue mass or fracture. Degenerative changes seen in the lumbar spine. Reproductive organs: Within normal limits. Soft tissues: Edema in the subcutaneous tissues which may represent anasarca. IMPRESSION: 1. 5 x 2.7 centimeter soft tissue mass in the left axilla. Follow-up with ultrasound is recommended. Biopsy should be considered. 2. Sclerosis of the right iliac bone. Osseous metastatic disease cannot be excluded. Bone scan may be considered for further evaluation. 3. Colonic diverticulosis but no evidence of acute diverticulitis. 4. Please see the above discussion for complete details. Exam(s) PROCEDURE INFORMATION: Exam: CT Chest Without Contrast Exam date and time: 03/23/2019 4:10 PM Age: 59 years old Clinical indication: Other: Back pain, malaise, abd distension TECHNIQUE: Imaging protocol: Computed tomography of the chest without contrast. Radiation optimization: All CT scans at this facility use at least one of these dose optimization techniques: automated exposure control; mA and/or kV adjustment per patient size (includes targeted exams where dose is matched to clinical indication); or iterative reconstruction. COMPARISON: CR XR HIP RT COMPLETE AP PELVIS 02/18/2019 11:03 AM FINDINGS: Tubes, catheters and devices: Right chest port terminates in the mid SVC. Lungs: Clear lungs. Respiratory motion limits evaluation for small pulmonary nodules. Pleural space: Unremarkable. No pneumothorax. No pleural effusion. Heart: Cardiomegaly. Small pericardial effusion. Aorta: The aorta demonstrates mild atherosclerotic calcification. Lymph nodes: Unremarkable. No enlarged lymph nodes. Bones/joints: No acute fracture. Vertebral body heights are maintained. Mild degenerative changes of the thoracic spine. Soft tissues: Numerous surgical clips about both anterior chest sparrow. 5.0 x 2.7 cm soft tissue lesion with internal punctate mineralization in the left axilla. IMPRESSION: 1. No acute abnormality in the chest. 2. 5.0 x 2.7 cm soft tissue lesion in the left axilla. Consider further evaluation with ultrasound and tissue sampling if not already performed. Exam(s) a US:US extremity venous BI EXAM: US EXTREMITY VENOUS BI CLINICAL HISTORY: BLE EDEMA, CONCERN FOR DVT TECHNIQUE: Ultrasound performed using standard protocol. COMPARISON: No exams were available for comparison FINDINGS: The examination was extremely difficult due to the patient's body habitus. On the right, the femoral vein was visualized and shows normal blood flow and augmentation. On the left, the femoral vein and posterior tibialis veins were visualized and show augmentation and color flow. IMPRESSION: 1. Severely limited examination due to patient body habitus. 2. The visualized vessels show color flow and augmentation. 3. The findings were discussed with Dr. Reno on the date of the examinatio Labs on day of discharge: Labs from last 24 hours 03/28/19 03/28/19 07:05 07:05 WBC 3.54 L RBC 3.01 L Hgb 9.2 L Hct 29.0 L MCV 96.3 H MCH 30.6 MCHC 31.7 L RDW 15.4 H Plt Count 211 MPV 9.3 Sodium 144 Potassium 3.9 D Chloride 107 Carbon Dioxide 31.5 Anion Gap 5.5 BUN 20 H Creatinine 0.84 Estimated GFR/1.73 m2 >= 60.00 Glucose 85 Calcium 8.5 Preliminary micro results at discharge 03/25/19 06:15 Blood Culture - Preliminary Blood NO GROWTH 72 HOURS 03/25/19 06:12 Blood Culture - Preliminary Blood NO GROWTH 72 HOURS 03/23/19 15:10 Blood Culture - Preliminary Blood NO GROWTH 96 HOURS [facility] Medical History C. difficile diarrhea (Acute) Cancer related pain (Chronic) much improved with fentanyl patch Carpal tunnel syndrome (Acute) Chronic adrenal insufficiency (Acute) Chronic pain (Chronic) Chronic respiratory failure with hypoxia (Chronic) Chronic venous stasis dermatitis (Chronic) COPD (chronic obstructive pulmonary disease) (Chronic) On nocturnal oxygen - 2L prn Depression (Chronic) Diabetes mellitus (Chronic) Insulin dependent Diverticulosis (Acute) Dyslipidemia (Chronic) Goals of care, counseling/discussion (Acute) History of breast cancer (Chronic) metastatic, with lymphatic spread and bone mets Hyperlipidemia (Acute) Hypopituitarism (Chronic) Hypothyroidism (Chronic) Influenza B (Acute) Iron deficiency anemia (Acute) Metastatic breast cancer (Chronic) Obesity (Chronic) Obstructive sleep apnea (Chronic) per [facility] records Palliative care patient (Chronic) Pneumonia (Acute) POLST (Physician Orders for Life-Sustaining Treatment) (Acute) done 03/26/19; sent to [facility], [facility], [facility], original to her Restless leg syndrome (Acute) Spinal stenosis (Acute) Stage IV breast cancer in female (Chronic) Uncontrolled pain (Resolved) Surgical History H/O bilateral mastectomy (Acute) H/O colonoscopy with polypectomy (Acute) History of carpal tunnel release of both wrists (Acute) Port-A-Cath in place (Acute) Status post transsphenoidal pituitary resection (Acute) Family History Father , age 83 from complications of diabetes Prostate cancer Diabetes Mother , age 79 from complications of Crohn's disease and colitis Crohn's disease Colitis Daughter No problems noted. Daughter No problems noted. Brother No problems noted. Sister Diabetes Obesity Sister No problems noted. Sister No problems noted. Sister No problems noted. Social History Smoking/Tobacco Use Status: Former Tobacco Use Alcohol Intake: never Substance use type: does not use Caregiver/Support person: Yes Household members: children Number of Children: 2 Communication Needs: Hard of Hearing and Corrective Lenses Education Level: middle school Do you need help understanding health information?: Always current occupation: on disability What is your relationship status?: How often do you talk on the phone with friends or family?: once per week How often do you get together with friends or relatives?: three or more times per week Panel score (0-1 are the most socially isolated patients): 1 What type of physical activity do you participate in: none, sedentary lifestyle, wheelchair-bound and additional Details: needs a new wheelchair, cannot walk far, just a few steps Special pedro pablo needs: No Do you feel safe at home: Yes Do you feel safe in your relationship?: Yes Additional Social history: , with 2 children. She is not working and on disability. Has a history of tobacco, quit in 1992. Reports rare use of alcohol only. Lives with daughter. Uses a walker to ambulate. Hard to do recently, depending more on WC. In a lot of pain. Recent scans show progression of breast cancer.
[2019-03-28] MEDS: Insulin Aspart 300 UNITS/3 ML PEN SC (12:07)
[2019-03-28] MEDS: Hydrocortisone 10 MG TAB 25 MG PO (13:34)
[2019-03-28] MEDS: Normal Saline Flush 10 ML SYR IVP (15:08)
[2019-03-28] MEDS: Heparin 500 UNITS/5 ML SYRINGE IVP (15:08)
--- NOTE | 2019-03-28 17:33 | CMPROGNOTE_ITS ---
- If Service Date Differs Date of service: 03/28/19 Time of Service: 17:33 Care Management Progress Note CM was asked to see Candace and her daughter this morning before discharge. There was some confusion about her Advanced Directives completed earlier this admission and they wanted to review them. new AD were completed with [facility] based on changes requested. These were faxed to the [facility] as well as Access by [facility].
--- NOTE | 2019-03-28 17:36 | PDOC.CMDIS ---
- If Service Date Differs Date of service: 03/28/19 Time of Service: 17:36 LACE Index Scoring Tool - Questions: Length of Stay (in days): 4 - 6 Acuity (Admit via E.D.?): Yes Comorbidities: Diabetes w/o Complication, Chronic Pulmonary Disease, Metastatic Solid Tumor E.D. Visits: 3 - Answers: Total Score: 15 Risk of Readmission: High Risk Care Management Discharge Reason for Hospitalization: UTI Discharge Plan: Candace will be discharged home with no new services. She will follow up with her PCP and discharge plan of care. She will transport with family via private vehicle. Patient/Family Education Needs: Discharge plan, limitations, Ask Me Three.
[2019-03-29 14:50] LABS: C Difficile PCR Positive (Negative)
--- NOTE | 2019-03-30 14:59 | PT.INDS ---
Date of service: 03/30/19 Time of Service: 14:59 PT Notes Visit Reasons: UTI, ACUTE KIDNEY INJURY Inpatient Physical Therapy Discharge Summary Dates: 03/30/2019 Dates of Service: 03/25/2019 through 03/28/2019 Referring Doctor: Sheyla Reno MD PT Orders: PT CONSULT: Limited ability Precautions: Fall. Standard. Activity as tolerated. 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 She presented to the ED on 03/23/2018 with chief complaints of nausea, vomiting, diarrhea, abdominal pain, and generalized body malaise. Patient is diagnosed with urinary tract infection and acute kidney injury. PMHX: Medical History C. difficile diarrhea (Acute) Carpal tunnel syndrome (Acute) Chronic adrenal insufficiency (Acute) Chronic pain (Chronic) Chronic respiratory failure with hypoxia (Chronic) Chronic venous stasis dermatitis (Chronic) COPD (chronic obstructive pulmonary disease) (Chronic) On nocturnal oxygen - 2L prn Depression (Chronic) Diabetes mellitus (Chronic) Insulin dependent Diverticulosis (Acute) Dyslipidemia (Chronic) History of breast cancer (Chronic) metastatic, with lymphatic spread and bone mets Hyperlipidemia (Acute) Hypopituitarism (Chronic) Hypothyroidism (Chronic) Influenza B (Acute) Iron deficiency anemia (Acute) Metastatic breast cancer (Acute) Obesity (Chronic) Obstructive sleep apnea (Chronic) per [facility] records Pneumonia (Acute) Restless leg syndrome (Acute) Spinal stenosis (Acute) Surgical History H/O bilateral mastectomy (Acute) H/O colonoscopy with polypectomy (Acute) History of carpal tunnel release of both wrists (Acute) Port-A-Cath in place (Acute) Status post transsphenoidal pituitary resection (Acute) Social History/Home Situation: Candace lives with her daughter in [place], [place] in a two-story house with a ramp to enter rails on both sides. Patient has stairs to the second floor of the house but has everything she needs on the first floor. She is disabled. She has 2 daughters locally. She receives choices for care highest needs, and her daughter Kiki is her primary provider for 12 years now. [facility] provides assistance with bathing and does meal preapration and assistance with lower body dressing. She was independent with front-wheeled walker for in-house ambulation and uses the 4-wheeled walker for outdoor ambulation. She has to walk about 80-90 feet to get to her car. She is dependent on her daughter for transportation to and from appointments. Daughter also provides assistance with bathing patient's back due to body habitus. Equipment Owned/DME: bariatric FWW, bariatric hospital bed, bariatric recliner, bariatric front wheeled walker Subjective: NT Objective: General Observation: NT Mental Status: NT Pain: NT ROM: Right Upper Extremity: Shoulder flexion 90-100 degrees. Elbow flexion WFL. Hands/wrist and fingers are WFL. Left Upper Extremity: Shoulder flexion 90-100 degrees. Elbow flexion WFL. Hands/wrist and fingers are WFL. Right Lower Extremity: Patient is able to bend hip to about 10 degrees beyond 90 while seated at edge of bed. She is able to perform straight leg raise to approximately 20-25 degrees. Kne flexion WFL. Dorsiflexion/plantarflexion WFL. Left Lower Extremity: Patient is able to bend hip to about 10 degrees beyond 90 while seated at edge of bed. She is able to perform straight leg raise to approximately 20-25 degrees. Kne flexion WFL. Dorsiflexion/plantarflexion WFL. Strength: Right Upper Extremity: Shoulder flexion 3-/5. Elbow flexion 4/5. Meter Inspector strong and functional Left Upper Extremity: Shoulder flexion 3-/5. Elbow flexion 4/5. Meter Inspector strong and functional. Right Lower Extremity: Hip flexion 3-/5. Hip extension 3/5. Knee flexion 4-/5. Knee extension 3+/5. Ankle dorsiflexion/plantarflexion 4/5. Left Lower Extremity: Hip flexion 3-/5. Hip extension 3/5. Knee flexion 4-/5. Knee extension 3+/5. Ankle dorsiflexion/plantarflexion 4/5. Bed Mobility/Transfers: Supine to sit: Minimal assist Sit to supine: Minimal assist Sit to stand: Mod assist of 2 Stand to sit: Mod assist of 2 Bed to chair: Minimal assist Chair to bed: Minimal assist Gait: Patient only able to do 2-3 sidesteps to transfer from bedside to recliner chair with FWW requiring only minimal assist of 2 with verbal cues needed for walker management and safety. Decreased step height and length. Reported pain on L knee with weight bearing. Balance: Static Sitting: Good Dynamic Sitting: Good Static Standing: Poor Dynamic Standing: Poor Assessment: Patient is a 58-year-old female with past medical history significant for breast carcinoma with metastases to the ymphatic system and bones. She presented to the ED on 03/23/2018 with chief complaints of nausea, vomiting, diarrhea, abdominal pain, and generalized body malaise. Patient is diagnosed with urinary tract infection and acute kidney injury. Her daughter is her 23/09 caregiver. Her prognosis for regaining prior level of function is fair to good. Patient does have chronic functional mobility deficits and has a daughter for her longtime caregiver. PT goals will be aimed at addressing the following impairment level findings: 1. Decreased range of motion for hip and knee bilaterally 2. Impaired strength to BLE 3. Impaired activity tolerance 4. Decreased balance skills Impairments contributed to the following functional limitations: 1. Reduced transfer skills 2. Increased risk for falls due to balance impairments 3. Limited ambulation distance Goals: Goals X1 week 1. Supine-Sit independent NOT MET 2. Sit-Supine independent NOT MET 3. Sit-Stand independent NOT MET 4. Stand-Sit independent NOT MET 5. Bed-Chair supervision NOT MET 6. Chair-Bed supervision NOT MET 7. Gait indoor and outdoor ambulation using FWW for at least 100 feet NOT MET 8. Independent with home exercise program NOT MET 9. Balance good NOT MET DISCHARGE RECOMMENDATIONS: Patient will highly benefit from the use of a regular bariatric wheelchair upon discharge to home to maximize mobility garments and reduce fall risk. Patient will benefit from home health PT services in order to progress mobility level using four-wheeled walker, assess home safety, identify additional equipment needs, and establish a functional maintenance program that will increase ability of patient to remain at home with daughter. TREATMENT CODE/TIME: NC. Thank you very much for this referral. Allie Miguel PT, DPT, CLT [facility] Inpatient PT at [facility]
== END 2019-03-28 15:07 | disposition home or self-care (01) | DRG 871 ==
LOC: ER 19:18 → MS 19:21 → ICU 03-24 11:13 → MS 03-25 12:42 → ICU 03-29 10:26
PROVIDERS: Nurse Practitioner Family; Physician Assistant; Admitting Provider Family Medicine; Emergency Provider Physician Assistant; PCP Family Medicine; Visit Provider Internal Medicine
DX: A41.51 Sepsis due to Escherichia coli [E. coli] (principal); G92 Toxic encephalopathy; N39.0 Urinary tract infection, site not specified; E27.40 Unspecified adrenocortical insufficiency; N17.9 Acute kidney failure, unspecified; Z68.43 Body mass index [BMI] 50.0-59.9, adult; C79.51 Secondary malignant neoplasm of bone; J96.11 Chronic respiratory failure with hypoxia; G47.33 Obstructive sleep apnea (adult) (pediatric); E11.22 Type 2 diabetes mellitus with diabetic chronic kidney disease; N18.9 Chronic kidney disease, unspecified; E87.6 Hypokalemia; E86.0 Dehydration; G89.3 Neoplasm related pain (acute) (chronic); E11.649 Type 2 diabetes mellitus with hypoglycemia without coma; Z79.4 Long term (current) use of insulin; C50.919 Malignant neoplasm of unspecified site of unspecified female breast; J44.9 Chronic obstructive pulmonary disease, unspecified; E66.9 Obesity, unspecified; E87.70 Fluid overload, unspecified; Z51.5 Encounter for palliative care; E03.9 Hypothyroidism, unspecified; F32.9 Major depressive disorder, single episode, unspecified; E78.5 Hyperlipidemia, unspecified; G25.81 Restless legs syndrome; Z87.891 Personal history of nicotine dependence; Z95.828 Presence of other vascular implants and grafts; Z73.89 Other problems related to life management difficulty; R53.1 Weakness; Z90.13 Acquired absence of bilateral breasts and nipples
CPT/HCPCS: 36410; 36415; 36591; 51701; 71250; 80048; 80053; 82805; 83690; 85027; 87040; 87077; 94640; 96361; 96365; 96372; 96375; 97110; 97162; 97530; 99223; 99232; 99233; 99239; 99255; 99285; 74176; 81003; 81015; 83605; 83735; 83880; 84439; 84443; 84484; 85014; 85018; 85025; 85379; 87086; 87186; 87324; 87798; 93970; 99281; J0696; J1644; J1650; J1720; J1941; J2405; J2543; J3490

== ENCOUNTER 2019-04-16 08:29 | Inpatient (IN) | payer MEDICARE, MEDICAID, SELFPAY ==
[2019-04-16] VITALS (8 sets, daily range): BP systolic 105–157; BP diastolic 54–72; PULSE 87–104; RESP 16–20; TEMP 36.3–37.2; O2SAT 90–98
--- NOTE | 2019-04-16 08:30 | DI.RAD_ITS ---
EXAM: XR CHEST 2V PA LATERAL INDICATION: weakness, SOB. COMPARISON: XR CHEST 2V PA LATERAL from 02/18/2019 TECHNIQUE: 2D digital imaging was performed. FINDINGS: The heart and pulmonary vasculature are within normal limits. The tip of the indwelling central veno us catheter is in good position in the superior vena cava. No focal infiltrates, effusions or pneumo thoraces are identified. There are degenerative changes seen in the spine. IMPRESSION: No acute pulmonary process.
--- NOTE | 2019-04-16 08:33 | ED.GENADUL_ITS ---
Discharge Plan Disposition Patient Disposition: [facility] INPATIENT Condition: Poor Discharge Details Chief Complaint: GenMedical Clinical Impression: Urinary tract infection Admit Date/Time: 04/16/19 10:38 Admit Provider: Vince Ta Attending Provider: Vince Ta Primary Care Provider: Jan Coleman ED Provider: Payton Gale Medical Decision Making Patient is a pleasant 59-year-old female presenting today with chief complaint of fatigue x3 days. She denies any pain. States that she is short of breath with exertion. She denies any chest pain. Is not currently short of breath. She is intermittently on oxygen at home she reports she did use 2 L of O2 last night. She denies any abdominal pain. No change in her bladder or bowel habits per patient report. Denies any recent travel. No recent cough. No fevers or chills. Patient has chronic back pain for which she has a fentanyl patch on and she associates this with her known metastasis. On exam, patient appears chronically ill. She smells strongly of urine. Lungs are clear, normal cardiac exam. Patient has chronic discoloration of the lower extremities, no lower extremity edema. She is centrally obese. No CVA tenderness. No abdominal pain elicited with palpation. Return, patient was admitted a few weeks ago with urosepsis. She does report feeling quite similar. She smells very strongly of urine and I am concerned that she has another UTI. EKG was reviewed by Dr. Encarnacion. Patient does have low voltage in precordial leads but this is similar symptoms previous EKGs no acute ischemic changes. Patient's otherwise a normal sinus rhythm with a rate of 97. We are contacted by the lab who advised the patient's lactate is 5.0. Patient is afebrile and actually looks quite improved when I saw her at the time of her last admission. We are hydrating the patient but I am hesitant to give her large quantities of fluid, I am concerned for possible fluid overload. BNP is pending. We will start with a 500 cc bolus and increase is appropriate. Patient does have hx of CHF Labs reviewed. No leukocytosis. Her creatinine is elevated once again at 2.07. This is up 1.84 on 03/28/2019. Glucose is 153. TSH 1.27 with free T4 pending. BNP is within normal limits. Will increase fluids. There was an error in patient's urinalysis being obtained. Awaiting for second. However, as the patient's lungs are clear, she has no evidence of upper respiratory infection, abdomen is benign and she has had multiple UTIs recently, I feel that treatment for UTI is appropriate again. We will begin with 1 g of IV ceftriaxone continue with IV hydration. Patient has been normotensive. FINDINGS: The heart and pulmonary vasculature are within normal limits. The tip of the indwelling central venous catheter is in good position in the superior vena cava. No focal infiltrates, effusions or pneumothoraces are identified. There are degenerative changes seen in the spine. IMPRESSION: No acute pulmonary process. With the patient's degree of weakness, feel that admission is appropriate. Patients daughter is reporting that she started having confusion last night. Discussed case with Dr. Ta who agrees to admission. Patient is continuing with fluids, has received IV antibiotics. I did also speak with chronic care nurse. We discussed that the patient's repeat admissions, I feel the rehab would be appropriate for this patient. She appears chronically unwell and is morbidly obese. I am concerned that these recurrent admissions are decreasing her overall reserve and strength which may be contributing to the repeat symptoms and inability to cope at home. Patient adamantly declines this at this time and I am hoping that during the admission this may be discussed further. Postvoid 44. Reviewed recent notes from [facility]. Patient was actually seen by urology on 03/11/2019. They advised the patient has a stress incontinence particularly with coughing, laughing, sneezing. Also exhibited features of urge incontinence. Patient does wear briefs continuously. Patient reported to me that she typically changes these 3-4 times daily. At this time they are evaluated, they did discuss urinary habits, behavioral therapies, skin care, weight loss, physical therapy for pelvic floor strengthening, restarted on oxybutynin. Patient denies any improvement with this. Also reviewed primary care note from follow-up after her recent admission. Visit was dated 03/30/2019. At that time they had discussed starting prophylaxis and per patient, she was recently started on daily keflex. HPI General Mode of arrival: wheelchair . Date/Time Provider Initiated Documentation: 04/16/19 08:33 . Limitations to Documentation: no limitations . Information obtained by: patient, family (daughter who is primary home care provider) and RN notes reviewed . History of Present Illness 59 year old F presents to the emergency department with the chief complaint of weakness/fatigue, described as moderate and similar to prior episodes, Patient started experiencing this day(s) (4) and it has been constant. No relieving factors improve symptom(s), No exacerbating factors reported . Patient notes confusion and headaches; denies chest pain, cough, diaphoresis, fever/chills, loss of appetite, nausea/vomiting, rash and shortness of breath. Patient did receive the following treatments prior to arrival, none Related Data Home Medications Medication Instructions Recorded Confirmed Spiriva Respimat 1 puff INHALATION DAILY 04/03/17 04/16/19 aspirin [Aspir-81] 81 mg PO DAILY 04/03/17 04/16/19 atorvastatin [Lipitor] 40 mg PO HS 04/03/17 04/16/19 budesonide-formoterol [Symbicort] 2 puff INHALATION BID 04/03/17 04/16/19 carbamazepine 200 mg PO BID 04/03/17 04/16/19 cetirizine [Zyrtec] 10 mg PO DAILY 04/03/17 04/16/19 cyanocobalamin (vitamin B-12) 1,000 mcg PO DAILY 04/03/17 04/16/19 [Vitamin B-12] duloxetine [Cymbalta] 60 mg PO HS 04/03/17 04/16/19 ferrous sulfate 325 mg PO TID 04/03/17 04/16/19 folic acid 1 mg PO DAILY 04/03/17 04/16/19 montelukast [Singulair] 10 mg PO DAILY 04/03/17 04/16/19 ondansetron HCl [Zofran] 8 mg PO TID PRN 04/03/17 04/16/19 pregabalin [Lyrica] 200 mg PO TID 04/03/17 04/16/19 Trulicity 1.5 mg SUBCUT QWEEK 05/06/18 04/16/19 hydrocortisone 5 mg PO QNOON 05/06/18 04/16/19 hydrocortisone 20 mg PO QAM 05/06/18 04/16/19 levothyroxine 150 mcg PO DAILY 05/06/18 04/16/19 benzonatate 200 mg PO TID PRN #15 cap 05/10/18 04/16/19 guaifenesin [Mucinex] 600 mg PO BID #10 tab 05/10/18 04/16/19 Humulin R U-500 (Conc) Kwikpen 50 unit SUBCUT QNOON 02/02/19 04/16/19 Humulin R U-500 (Conc) Kwikpen 50 unit SUBCUT QPM 02/02/19 04/16/19 Humulin R U-500 (Conc) Kwikpen 100 unit SUBCUT QAM 02/02/19 04/16/19 duloxetine [Cymbalta] 60 mg PO HS 02/02/19 04/16/19 loratadine 10 mg PO DAILY 02/02/19 04/16/19 Lactobacillus acidophilus 1,000 mmu cells PO DAILY #30 cap 02/04/19 04/16/19 Prevalite 4 g PO BID@1000,2000 PRN #10 each 02/04/19 04/16/19 Verzenio 150 mg PO BID #0 tab 02/04/19 04/16/19 letrozole 2.5 mg PO DAILY 02/04/19 04/16/19 ranitidine HCl 300 mg PO QHS #30 cap 02/04/19 04/16/19 cefpodoxime 400 mg PO BID #30 tab 03/28/19 04/16/19 fentanyl [Duragesic] 25 mcg TRANSDERMAL Q72H #3 ea 03/28/19 04/16/19 hydrocodone-acetaminophen 2 tab PO Q4H PRN PRN #5 tab 03/28/19 04/16/19 vancomycin 125 mg PO Q6H #30 cap 03/28/19 04/16/19 cholestyramine-aspartame 4 g PO BID PRN 04/16/19 04/16/19 [Cholestyramine Light] Previous Rx's Medication Instructions Recorded benzonatate 200 mg PO TID PRN #15 cap 05/10/18 guaifenesin [Mucinex] 600 mg PO BID #10 tab 05/10/18 Lactobacillus acidophilus 1,000 mmu cells PO DAILY #30 cap 02/04/19 Prevalite 4 g PO BID@1000,2000 PRN #10 each 02/04/19 Verzenio 150 mg PO BID #0 tab 02/04/19 ranitidine HCl 300 mg PO QHS #30 cap 02/04/19 cefpodoxime 400 mg PO BID #30 tab 03/28/19 fentanyl [Duragesic] 25 mcg TRANSDERMAL Q72H #3 ea 03/28/19 hydrocodone-acetaminophen 2 tab PO Q4H PRN PRN #5 tab 03/28/19 vancomycin 125 mg PO Q6H #30 cap 03/28/19 Allergies Allergy/AdvReac Type Severity Reaction Status Date / Time bee venom protein (honey bee) Allergy Unknown Unverified 03/23/19 14:18 Latex, Natural Rubber AdvReac Intermediate Unverified 03/23/19 14:18 adhesive tape AdvReac Mild Unverified 03/23/19 14:18 General CARMEN: 2 Review of Systems Constitutional Constitutional: Reports as per HPI, Denies chills, Reports fatigue, Denies fever(s), Reports headache(s), Denies lethargy and Reports poor appetite Eyes Eyes: Denies change in vision ENT Ears, Nose, Mouth, and Throat: Denies dizziness and Reports headache(s) Cardiovascular Cardiovascular: Reports as per HPI, Denies chest pain, Denies chest pain at rest, Denies chest pain with activity, Denies pedal edema, Denies lightheaded ness, Denies radiating jaw, neck or arm pain, Denies palpitations, Denies dyspnea and Reports dyspnea on exertion Respiratory Respiratory: Reports as per HPI, Denies chest congestion, Denies cough, Denies pain on inspiration, Denies pain with cough, Denies dyspnea, Reports dyspnea on exertion and Denies wheezing Gastrointestinal Gastrointestinal: Reports as per HPI, Denies abdominal pain, Denies diarrhea, Denies nausea and Denies vomiting Genitourinary Genitourinary: Reports system reviewed and no additional complaints, except as docu (patient is incontinent at baseline, no change in urinary habits, no dysurea) Musculoskeletal Musculoskeletal: Reports as per HPI and Denies back pain Integumentary/Breasts Skin/Breast: Reports as per HPI and Denies rash Neurologic Neurologic: Reports as per HPI, Denies dizziness and Reports headache(s) Endocrine Endocrine: Reports fatigue and Denies palpitations Allergic/Immunologic Allergic/Immunologic: Denies wheezing [facility] Medical History C. difficile diarrhea (Acute) Cancer related pain (Chronic) much improved with fentanyl patch Carpal tunnel syndrome (Acute) Chronic adrenal insufficiency (Acute) Chronic pain (Chronic) Chronic respiratory failure with hypoxia (Chronic) Chronic venous stasis dermatitis (Chronic) COPD (chronic obstructive pulmonary disease) (Chronic) On nocturnal oxygen - 2L prn Depression (Chronic) Diabetes mellitus (Chronic) Insulin dependent Diverticulosis (Acute) Dyslipidemia (Chronic) Goals of care, counseling/discussion (Acute) History of breast cancer (Chronic) metastatic, with lymphatic spread and bone mets Hyperlipidemia (Acute) Hypopituitarism (Chronic) Hypothyroidism (Chronic) Influenza B (Acute) Iron deficiency anemia (Acute) Metastatic breast cancer (Chronic) Obesity (Chronic) Obstructive sleep apnea (Chronic) per [facility] records Palliative care patient (Chronic) Pneumonia (Acute) POLST (Physician Orders for Life-Sustaining Treatment) (Acute) done 03/26/19; sent to [facility], [facility], [facility], original to her Restless leg syndrome (Acute) Spinal stenosis (Acute) Stage IV breast cancer in female (Chronic) Uncontrolled pain (Resolved) Social History Smoking/Tobacco Use Status: Former Tobacco Use Alcohol Intake: never Substance use type: does not use Caregiver/Support person: Yes Household members: children Number of Children: 2 Communication Needs: Hard of Hearing and Corrective Lenses Education Level: middle school Do you need help understanding health information?: Always current occupation: on disability What is your relationship status?: How often do you talk on the phone with friends or family?: once per week How often do you get together with friends or relatives?: three or more times per week Panel score (0-1 are the most socially isolated patients): 1 What type of physical activity do you participate in: none, sedentary lifestyle, wheelchair-bound and additional Details: needs a new wheelchair, cannot walk far, just a few steps Special pedro pablo needs: No Do you feel safe at home: Yes Do you feel safe in your relationship?: Yes Additional Social history: , with 2 children. She is not working and on disability. Has a history of tobacco, quit in 1992. Reports rare use of alcohol only. Lives with daughter. Uses a walker to ambulate. Hard to do recently, depending more on WC. In a lot of pain. Recent scans show progression of breast cancer. Exam Const General: cooperative, not healthy appearing, comfortable, no acute distress, well developed, No well groomed and ill appearing chronically Nutritional Appearance: well nourished and obese morbidly obese Orientation: alert, awake and oriented x3 [facility] Head: normal to inspection Ears: hearing grossly normal bilaterally Mouth: mucous membranes dry (appears dry) Chest Chest: normal inspection of the chest, normal palpation of entire chest wall and no crepitus Resp Effort & Inspection: normal respiratory effort, able to speak in complete sentences and no respiratory distress Auscultation: clear to auscultation bilaterally, no rales, no rhonchi and no wheezes Cardio Rate: regular rate Rhythm: regular rhythm Heart Sounds: S1 normal and S2 normal GI Inspection: normal to inspection, no edema, non-distended, large pannus and obesity Palpation: soft, no hepatosplenomegaly, not firm, no guarding, not rigid and nontender Auscultation: normal bowel sounds Back/Spine/Pelvis Back: no CVA tenderness Thoracic/Lumbar Spine: thoracic and lumbar spine normal to inspection Skin General skin exam: no rashes or lesions noted Trauma: no lacerations or abrasions Neuro General: alert, awake and oriented x3 Cognition: normal cognition Speech: speech normal Gait: normal gait Extrem General: normal to inspection, normal capillary refill, no pedal edema, no calf tenderness and normal gait Psych Appearance: grossly normal and well kempt Mental Status: mental status grossly normal Speech and Movement: speech and movement normal
[2019-04-16 09:23] LABS: Abs Immature Grans 0.01 k/cumm (0.0-0.09); Absolute Basophil Count 0.02 k/cumm (0.0-0.2); Absolute Eosinophil Count 0.07 k/cumm (0.0-0.7); Absolute Lymphocyte Count 1.39 k/cumm (1.2-3.4); Absolute Monocyte Count 0.35 k/cumm (0.11-0.7); Absolute Neutrophil Count 3.22 k/cumm (1.2-6.7); Basophils % 0.4; Eosinophils % 1.4; HCT 36.9 % (36.0-46.0); HGB 11.9 g/dL (12.0-15.5); Immature Grans % 0.2 %; Lymphocytes % 27.5; Mean Corp. HGB Concentration 32.2 g/dL (32.0-36.0); Mean Corpuscular Hemoglobin 30.7 pg (27.0-33.0); Mean Corpuscular Volume 95.3 fL (80-95); Mean Platelet Volume 9.4 fL (8.0-11.0); Monocytes % 6.9; Neutrophils % 63.6; Platelet Count 239 x1000/uL (130-400); RBC 3.87 m/cumm (4.00-5.20); White Blood Cell Count 5.06 k/cumm (4.4-10.8)
[2019-04-16] MEDS: Normal Saline 500 ML IV (09:46)
[2019-04-16 09:51] LABS: ALT 14 U/L (14-59); AST 17 U/L (15-37); Albumin 3.4 g/dL (3.4-5.0); Alkaline Phosphatase 119 U/L (46-116); BUN 16 mg/dL (7-18); Bilirubin, Total 0.7 mg/dL (0.2-1.0); CREATININE 2.07 mg/dL (0.55-1.02); Calcium 9.6 mg/dL (8.5-10.1); Chloride 98 mmol/L (98-107); Estimated GFR 24.43 (mL/min/1.73m2); Glucose 153 mg/dL (74-106); Magnesium 1.5 mg/dL (1.8-2.4); NT-proBNP 79 pg/mL (<300); Potassium 3.5 mmol/L (3.5-5.1); Sodium 137 mmol/L (136-145); TSH (W/Ref FT4) 0.27 uIU/mL (0.36-3.74); Total Protein 8.6 g/dL (6.4-8.2)
[2019-04-16 09:53] LABS: Troponin I < 0.05 ng/Ml (<0.06)
[2019-04-16 10:09] LABS: FREE T4 0.99 ng/dL (0.76-1.46)
[2019-04-16] MEDS: cefTRIAXone 1 GM/50 ML BAG IVPB (10:28)
--- NOTE | 2019-04-16 10:28 | NUR.NOTE ---
Nursing Note: RA sat 90%, Pt placed on 2lpm NC.
--- NOTE | 2019-04-16 10:43 | NUR.NOTE ---
Nursing Note: bladder scan .44ml
[2019-04-16 11:33] LABS: Bilirubin Negative (Negative); Blood Small (Negative); Clarity Cloudy (Clear); Glucose Negative (Negative); Ketones Negative (Negative); Leukocyte Esterase Large (Negative); Nitrite Positive (Negative); Urobilinogen 0.2 EU/dL (Up TO 0.2)
[2019-04-16] MEDS: Normal Saline 1,000 ML 1000 ML IV (11:39)
[2019-04-16 11:43] LABS: WBC >50 HPF (0-5)
[2019-04-16 11:44] LABS: Bacteria Many HPF (Negative); C & S Indicated? Yes
--- NOTE | 2019-04-16 16:05 | W.PM.HP.N ---
Date of service: 04/16/19 Time of Service: 16:05 Assessment and Plan Assessment and plan (1) Weakness: Status: Acute Assessment and plan: Differential diagnosis is wide given the patient's complex medical history. Looks like she went up on her fentanyl from 25-50 at the end of March, and again up to 75 as of today. She is not clearly overtly opioid toxic, but this may be playing a role. Will back down on her fentanyl back to 50 mcg and use as needed hydrocodone. It does look like the patient has UTI we will treat this. This could be a cause of her mental status changes. Given the patient's body mass index, her untreated sleep apnea, and use of oxygen, I did have a concern for hypercapnia causing the status changes. Initially ordered ABG, but this point she is up moving around and is at her baseline mental status so unlikely to find current hypercapnia. Continue to monitor and consider blood gas if acute mental status changes recur. Patient is certainly at risk for over sedation due to polypharmacy with worsening renal function as well. Her PCP has a goal of decreasing her medication burden overall, which I agree would be a good idea. (2) Stage IV breast cancer in female: Status: Chronic Assessment and plan: Will continue outpatient oral therapy (3) Adrenal insufficiency: Status: Chronic Assessment and plan: Patient has a history of adrenal insufficiency secondary to pituitary apoplexy. She is on oral hydrocortisone chronically at 25 mg/day. I will give her moderate stress dose steroids at 50 mg IV hydrocortisone twice daily, consider increasing if she starts looking adrenal insufficient. (4) Obstructive sleep apnea: Status: Chronic Assessment and plan: Chronic obstructive sleep apnea, she does not tolerate BiPAP. (5) Cancer related pain: Status: Chronic Assessment and plan: Patient has a history of chronic pain that was disabling, is also has metastatic breast cancer and is maintained on chronic opiates. Her dose has increased a great deal of the past month with fentanyl patch going up from 25 to 75 mcg. As above concerned with oversedation. Decreased the patch to 50 mcg with as needed oral opioids. (6) Urinary tract infection: Status: Acute Assessment and plan: Her urinalysis is very consistent with UTI. Continue treatment ceftriaxone as her last culture was pansensitive E. coli, although she has been on oral cephalosporins to prevent UTIs and it does not seem to be working. Given her history of C. difficile, will start prophylactic oral vancomycin along with probiotics while she is on IV antibiotics. She was just seen within the month at [facility] [place] this issue of recurrent urine tract infections. Qualifiers: Hematuria presence: without hematuria Urinary tract infection type: site unspecified Qualified Code(s): N39.0 - Urinary tract infection, site not specified (7) SIERRA (acute kidney injury): Status: Acute Assessment and plan: Creatinine is up to 2 from baseline 0.8. She does seem to be dehydrated as she looks clinically improved after getting 2 L of fluid in emergency room. Her bladder scan is not consistent with retention. I will monitor her renal function. I will get a renal ultrasound to assess this and the recurrent infection. (8) COPD (chronic obstructive pulmonary disease): Status: Chronic Assessment and plan: Continue outpatient inhalers. Does not appear to be active at this point. (9) Hypothyroidism: Status: Chronic Assessment and plan: TSH low, but this is seen with central hypothyroidism. Free T4 is appropriate, so we will continue current levothyroxine dose. (10) Diabetes mellitus: Status: Chronic Assessment and plan: Last A1c is 7.9 last month. This is reasonable control given her comorbidities. She has experienced some recent hypoglycemia and her insulin was cut back. We will continue with a lower dose and follow her glucose. 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 She is stable on the medical floor. She has had a palliative care consult in the past, consider reconsulting palliative care if she still around on Friday History of Present Illness History of Present Illness Chief Complaint: Generalized weakness Narrative: 59-year-old female with complex medical history including morbid obesity, metastatic breast cancer on chronic opioids, type 2 diabetes on insulin, hypopituitarism, and recurrent UTIs with recent admission for E. coli bacteremia who is presenting with 2 days of generalized weakness and malaise. Patient states she was in her normal state of health until about 2 days ago. Her family is noted her more confused, sitting and staring into space this morning. She is not aware of any inciting events. She is urinating frequently with incontinence, but this is chronic. No dysuria or hematuria. She does she does confirm that she has been taking prophylactic antibiotics to prevent urine infection. She has chronic pain in her neck back and tailbone area related to metastatic breast cancer. She did just increase her fentanyl from 50 to 75 mcg patches, but the first patch was just placed on today and the symptoms started before the placement of the higher dose patch. She is presented with similar manner with previous urine infections. She has diagnosis of COPD and obstructive sleep apnea. She does not use her CPAP but uses oxygen at night and as needed during the day. Review of Systems Narrative: General: No fevers or chills. No recent weight changes. Appetite normal. No headaches or vision changes. No sore throat or congestion or other cold symptoms. No difficulty swallowing. No cough or wheezing. No chest pain or palpitations. No nausea or vomiting or abdominal pain. She is a history of C. difficile and was recently taken off of oral vancomycin, but no recurrence of her diarrhea. No blood in the stool or melena. No bleeding or bruising. No new joint pain, though she does have chronic back and neck pain as above. No open wounds and no rashes. Otherwise per HPI. [facility] Medical History C. difficile diarrhea (Acute) Cancer related pain (Chronic) much improved with fentanyl patch Carpal tunnel syndrome (Acute) Chronic adrenal insufficiency (Acute) Chronic pain (Chronic) Chronic respiratory failure with hypoxia (Chronic) Chronic venous stasis dermatitis (Chronic) COPD (chronic obstructive pulmonary disease) (Chronic) On nocturnal oxygen - 2L prn Depression (Chronic) Diabetes mellitus (Chronic) Insulin dependent Diverticulosis (Acute) Dyslipidemia (Chronic) Goals of care, counseling/discussion (Acute) History of breast cancer (Chronic) metastatic, with lymphatic spread and bone mets Hyperlipidemia (Acute) Hypopituitarism (Chronic) Hypothyroidism (Chronic) Influenza B (Acute) Iron deficiency anemia (Acute) Metastatic breast cancer (Chronic) Obesity (Chronic) Obstructive sleep apnea (Chronic) per [facility] records Palliative care patient (Chronic) Pneumonia (Acute) POLST (Physician Orders for Life-Sustaining Treatment) (Acute) done 03/26/19; sent to [facility], [facility], [facility] of [facility], original to her Restless leg syndrome (Acute) Spinal stenosis (Acute) Stage IV breast cancer in female (Chronic) Uncontrolled pain (Resolved) Surgical History H/O bilateral mastectomy (Acute) H/O colonoscopy with polypectomy (Acute) History of carpal tunnel release of both wrists (Acute) Port-A-Cath in place (Acute) Status post transsphenoidal pituitary resection (Acute) Family History Father , age 83 from complications of diabetes Prostate cancer Diabetes Mother , age 79 from complications of Crohn's disease and colitis Crohn's disease Colitis Daughter No problems noted. Daughter No problems noted. Brother No problems noted. Sister Diabetes Obesity Sister No problems noted. Sister No problems noted. Sister No problems noted. Social History Smoking/Tobacco Use Status: Former Tobacco Use Alcohol Intake: never Substance use type: does not use Caregiver/Support person: Yes Household members: children Number of Children: 2 Communication Needs: Hard of Hearing and Corrective Lenses Education Level: middle school Do you need help understanding health information?: Always current occupation: on disability What is your relationship status?: How often do you talk on the phone with friends or family?: once per week How often do you get together with friends or relatives?: three or more times per week Panel score (0-1 are the most socially isolated patients): 1 What type of physical activity do you participate in: none, sedentary lifestyle, wheelchair-bound and additional Details: needs a new wheelchair, cannot walk far, just a few steps Special pedro pablo needs: No Do you feel safe at home: Yes Do you feel safe in your relationship?: Yes Additional Social history: , with 2 children. She is not working and on disability. Has a history of tobacco, quit in 1992. Reports rare use of alcohol only. Lives with daughter. Uses a walker to ambulate. Hard to do recently, depending more on WC. In a lot of pain. Recent scans show progression of breast cancer. Meds Home Medications and Allergies Home Medications Medication Instructions Recorded Confirmed Type Spiriva Respimat 1 puff INHALATION DAILY 04/03/17 04/16/19 History aspirin [Aspir-81] 81 mg PO DAILY 04/03/17 04/16/19 History atorvastatin [Lipitor] 40 mg PO HS 04/03/17 04/16/19 History budesonide-formoterol [Symbicort] 2 puff INHALATION BID 04/03/17 04/16/19 History carbamazepine 200 mg PO BID 04/03/17 04/16/19 History cetirizine [Zyrtec] 10 mg PO DAILY 04/03/17 04/16/19 History cyanocobalamin (vitamin B-12) 1,000 mcg PO DAILY 04/03/17 04/16/19 History [Vitamin B-12] duloxetine [Cymbalta] 60 mg PO HS 04/03/17 04/16/19 History ferrous sulfate 325 mg PO TID 04/03/17 04/16/19 History folic acid 1 mg PO DAILY 04/03/17 04/16/19 History montelukast [Singulair] 10 mg PO DAILY 04/03/17 04/16/19 History ondansetron HCl [Zofran] 8 mg PO TID PRN 04/03/17 04/16/19 History pregabalin [Lyrica] 200 mg PO TID 04/03/17 04/16/19 History Trulicity 1.5 mg SUBCUT QWEEK 05/06/18 04/16/19 History hydrocortisone 5 mg PO QNOON 05/06/18 04/16/19 History hydrocortisone 20 mg PO QAM 05/06/18 04/16/19 History levothyroxine 150 mcg PO DAILY 05/06/18 04/16/19 History benzonatate 200 mg PO TID PRN #15 cap 05/10/18 04/16/19 Rx guaifenesin [Mucinex] 600 mg PO BID #10 tab 05/10/18 04/16/19 Rx Humulin R U-500 (Conc) Kwikpen 50 unit SUBCUT QNOON 02/02/19 04/16/19 History Humulin R U-500 (Conc) Kwikpen 50 unit SUBCUT QPM 02/02/19 04/16/19 History Humulin R U-500 (Conc) Kwikpen 100 unit SUBCUT QAM 02/02/19 04/16/19 History duloxetine [Cymbalta] 60 mg PO HS 02/02/19 04/16/19 History loratadine 10 mg PO DAILY 02/02/19 04/16/19 History Lactobacillus acidophilus 1,000 mmu cells PO DAILY #30 cap 02/04/19 04/16/19 Rx Prevalite 4 g PO BID@1000,2000 PRN #10 each 02/04/19 04/16/19 Rx Verzenio 150 mg PO BID #0 tab 02/04/19 04/16/19 Rx letrozole 2.5 mg PO DAILY 02/04/19 04/16/19 History ranitidine HCl 300 mg PO QHS #30 cap 02/04/19 04/16/19 Rx cefpodoxime 400 mg PO BID #30 tab 03/28/19 04/16/19 Rx fentanyl [Duragesic] 25 mcg TRANSDERMAL Q72H #3 ea 03/28/19 04/16/19 Rx hydrocodone-acetaminophen 2 tab PO Q4H PRN PRN #5 tab 03/28/19 04/16/19 Rx vancomycin 125 mg PO Q6H #30 cap 03/28/19 04/16/19 Rx cholestyramine-aspartame 4 g PO BID PRN 04/16/19 04/16/19 History [Cholestyramine Light] Allergies Allergy/AdvReac Type Severity Reaction Status Date / Time bee venom protein (honey bee) Allergy Unknown Unverified 03/23/19 14:18 Latex, Natural Rubber AdvReac Intermediate Unverified 03/23/19 14:18 adhesive tape AdvReac Mild Unverified 03/23/19 14:18 Exam Narrative Exam Narrative: General: Sleepy, but when aroused alert and oriented x3 and appropriately answers all questions and remembers recent events. She is not nodding off. She is able to sit up on side of the bed. HEENT: Normocephalic atraumatic. Pupils 3 mm in the room light with the window open, equal round reactive to light with extraocular motion intact. Conjunctiva clear, no icterus. No rhinorrhea. Mucous membranes moist with oropharynx benign. Neck is supple with no masses or lymphadenopathy. Lungs clear to auscultation bilaterally with normal effort Cardiovascular: Regular rate and rhythm no murmurs gallops or rubs. Abdomen: Active bowel sounds, soft, nontender, large pannus but not distended, no palpable organomegaly. Extremities: No cyanosis or clubbing. Trace bilateral edema the ankles, with dark venous stasis changes noted bilateral ankles. Legs nontender to palpation. Back: No focal point tenderness lumbar spine. No CVA tenderness Neurologic: Cranial nerves II through XII intact. Normal movement of 4 extremities with grossly normal coordination. No tremor. Skin: No rashes or open wounds. Psychiatric: Normal mood and affect. Normal thought process. Results Chest x-ray: No acute pulmonary process Labs Result diagrams: 04/16/19 09:07 04/16/19 09:07 Labs: Laboratory Results - last 24 hr 04/16/19 04/16/19 04/16/19 09:07 09:07 09:07 WBC 5.06 RBC 3.87 L Hgb 11.9 L Hct 36.9 MCV 95.3 H MCH 30.7 MCHC 32.2 RDW 17.0 H Plt Count 239 MPV 9.4 Immature Gran % 0.2 Neutrophils % 63.6 Lymphocytes % 27.5 Monocytes % 6.9 Eosinophils % 1.4 Basophils % 0.4 Absolute Neutrophils 3.22 Absolute Lymphocytes 1.39 Absolute Monocytes 0.35 Absolute Eosinophils 0.07 Absolute Basophils 0.02 Sodium 137 Potassium 3.5 Chloride 98 Carbon Dioxide 28.0 Anion Gap 11.0 BUN 16 Creatinine 2.07 H Estimated GFR/1.73 m2 24.43 Glucose 153 H Lactate 5.0 H* Calcium 9.6 Magnesium 1.5 L Total Bilirubin 0.7 AST 17 ALT 14 Alkaline Phosphatase 119 H Troponin I < 0.05 NT-Pro-B Natriuret Pep 79 Total Protein 8.6 H Albumin 3.4 TSH 0.27 L Free T4 0.99 Urine Color Urine Clarity Urine pH Ur Specific Parnell Urine Protein Urine Ketones Urine Blood Urine Nitrite Urine Bilirubin Urine Urobilinogen Ur Leukocyte Esterase Urine RBC Urine WBC Ur Epithelial Cells Urine Crystals Urine Bacteria Urine Mucus Ur Culture Indicated? Urine Glucose 04/16/19 11:03 WBC RBC Hgb Hct MCV MCH MCHC RDW Plt Count MPV Immature Gran % Neutrophils % Lymphocytes % Monocytes % Eosinophils % Basophils % Absolute Neutrophils Absolute Lymphocytes Absolute Monocytes Absolute Eosinophils Absolute Basophils Sodium Potassium Chloride Carbon Dioxide Anion Gap BUN Creatinine Estimated GFR/1.73 m2 Glucose Lactate Calcium Magnesium Total Bilirubin AST ALT Alkaline Phosphatase Troponin I NT-Pro-B Natriuret Pep Total Protein Albumin TSH Free T4 Urine Color Yellow Urine Clarity Cloudy Urine pH 6.0 Ur Specific Parnell 1.010 Urine Protein 30 H Urine Ketones Negative Urine Blood Small H Urine Nitrite Positive H Urine Bilirubin Negative Urine Urobilinogen 0.2 Ur Leukocyte Esterase Large H Urine RBC Urine WBC >50 H Ur Epithelial Cells Not Applicable Urine Crystals Not Applicable Urine Bacteria Many Urine Mucus Not Applicable Ur Culture Indicated? Yes Urine Glucose Negative Last Vital Signs Temp 37.2 C 04/16/19 15:25 Pulse 96 H 04/16/19 15:25 Resp 20 04/16/19 15:25 BP 157/69 H 04/16/19 15:25 Pulse Ox 95 04/16/19 15:25
[2019-04-16] MEDS: fentaNYL 50 MCG PATCH TD (17:00)
[2019-04-16] MEDS: Enoxaparin 30 MG/0.3 ML SYR SC (17:00)
[2019-04-16] MEDS: Patch Removal 1 EACH TP (17:11)
[2019-04-16] MEDS: carBAMazepine 200 MG TAB PO (19:11)
[2019-04-16] MEDS: Pregabalin 100 MG CAP 200 MG PO (19:11)
[2019-04-16] MEDS: Normal Saline Flush 10 ML SYR IVP (19:12)
[2019-04-16] MEDS: Hydrocortisone SOD SUC. 100 MG VIAL 50 MG IVP (19:14)
[2019-04-16] MEDS: Budesonide/Formoterol 160/4.5 6 GM 60 PUFF INH IH (19:23)
[2019-04-16] MEDS: DULoxetine 30 MG CAP 60 MG PO (21:09)
[2019-04-16] MEDS: Atorvastatin 20 MG TAB 40 MG PO (21:09)
[2019-04-17 01:45] VITALS: BP 114/66; PULSE 92; RESP 20; TEMP 37.2; O2SAT 94
[2019-04-17] MEDS: Hydrocortisone SOD SUC. 100 MG VIAL 50 MG IVP (06:27)
[2019-04-17] MEDS: Normal Saline Flush 10 ML SYR IVP ×3 (06:28→17:45)
[2019-04-17 06:43] LABS: Lactate 0.7 mmol/L (0.6-1.4)
[2019-04-17 06:45] LABS: Absolute Basophil Count 0.01 k/cumm (0.0-0.2); Absolute Eosinophil Count 0.06 k/cumm (0.0-0.7); Absolute Lymphocyte Count 1.35 k/cumm (1.2-3.4); Absolute Neutrophil Count 2.08 k/cumm (1.2-6.7); Basophils % 0.3; Eosinophils % 1.6; HCT 30.9 % (36.0-46.0); HGB 9.8 g/dL (12.0-15.5); Lymphocytes % 35.5; Mean Corp. HGB Concentration 31.7 g/dL (32.0-36.0); Mean Corpuscular Hemoglobin 30.4 pg (27.0-33.0); Mean Platelet Volume 9.1 fL (8.0-11.0); Monocytes % 7.9; Neutrophils % 54.7; Platelet Count 188 x1000/uL (130-400); RBC 3.22 m/cumm (4.00-5.20); RBC Distribution Width 16.3 % (11.7-14.6)
[2019-04-17 06:54] LABS: Anion Gap 5.4 mmol/L (3-11); BUN 15 mg/dL (7-18); CO2 32.6 mmol/L (21.0-32.0); CREATININE 1.46 mg/dL (0.55-1.02); Calcium 8.6 mg/dL (8.5-10.1); Chloride 100 mmol/L (98-107); Estimated GFR 36.54 (mL/min/1.73m2); Glucose 205 mg/dL (74-106); Magnesium 1.8 mg/dL (1.8-2.4); Potassium 4.2 mmol/L (3.5-5.1); Sodium 138 mmol/L (136-145)
[2019-04-17 07:06] LABS: Anisocytosis 1+; Basophilic Stippling Present; Diff Comment RBC Morph Reviewed; Hypochromasia 1+; Polychromasia Present
[2019-04-17 07:54] VITALS: O2SAT 93
[2019-04-17] MEDS: Budesonide/Formoterol 160/4.5 6 GM 60 PUFF INH IH ×2 (07:55→20:01)
[2019-04-17] MEDS: Tiotropium Bromide-Respimat 10 PUFF INH IH (07:57)
[2019-04-17 08:15] VITALS: BP 115/71; PULSE 88; RESP 18; TEMP 36.5; O2SAT 94
[2019-04-17 08:20] VITALS: O2SAT 94
[2019-04-17] MEDS: Letrozole 2.5 MG TAB PO (08:29)
[2019-04-17] MEDS: Pregabalin 100 MG CAP 200 MG PO ×3 (08:29→20:01)
[2019-04-17] MEDS: Levothyroxine 150 MCG TAB PO (08:29)
[2019-04-17] MEDS: Cyanocobalamin 500 MCG TAB 1000 MCG PO (08:29)
[2019-04-17] MEDS: carBAMazepine 200 MG TAB PO ×2 (08:30→20:01)
[2019-04-17] MEDS: Lactobacillus Acidophilus CAP 1 CAP PO (08:30)
[2019-04-17] MEDS: Montelukast 10 MG TAB PO (08:31)
[2019-04-17] MEDS: Folic Acid 1 MG TAB PO (08:31)
[2019-04-17] MEDS: Cetirizine 10 MG TAB PO (08:31)
[2019-04-17] MEDS: Aspirin E.C. 81 MG TABEC PO (08:31)
[2019-04-17] MEDS: Vancomycin 125 MG CAP PO ×3 (08:33→18:40)
[2019-04-17] MEDS: cefTRIAXone 1 GM/50 ML BAG IVPB ×2 (11:04→17:44)
--- NOTE | 2019-04-17 11:19 | PDOC.CMIN ---
Care Management Initial Assess REASON FOR HOSPITALIZATION:: UTI PAST MEDICAL HISTORY/PAST SURGICAL HISTORY:: C. diff, cancer related pain, carpal tunnel syndrome, chronic adrenal insufficency, chronic pain, chronic respiratory failure with hypoxia, chronic venous stasis dermatitis, COPD, Depression, DM, Diverticulosis, Dyslipidemia, hx of breast cancer, hyperlipidemia, hypopituitarism, hypothyroidism, influenza B, iron deficiency anemia, metastatic breast cancer, obesity, RAKAN, palliative care patient, pneumonia, POLST, restless leg syndrome, spinal stenosis, stage IV breast cancer in female, uncontrolled pain, bilateral mastectomy, colonoscopy with polypectomy, hx of carpal tunnel release bilat, port-a-cath in place, s/p transphenoidal pituitary resection PREVIOUS FUNCTIONAL STATUS/SOCIAL/FAMILY SUPPORTS:: Candace lives at home with her daughter in [facility]. She has two daughters who reside locally. She is currently disabled and receives [facility] highest needs; her daughter Kiki is her primary caregiver. Candace utilizes a walker for ambulation, and a wheeled walker for distance. She is dependent on her daughter for transportation to and from appointments. ADVANCE DIRECTIVES:: [facility]ST form on file states [employer], no hospitalization, no ABX. CM notifed provider. Has patient been provided with information about the portal?: Yes Did the patient sign up for the portal?: No CODE STATUS:: DNR/DNI INSURANCE COVERAGE / FINANCIAL ISSUES:: Medicare. Medicaid CURRENT HOME/COMMUNITY SERVICES/EQUIPMENT:: Her Oncologist is Dr.Leslie Walden in [place] ([phone]). FWW, rollator, wheelchair. VNA RN through [place] PRIMARY CARE PHYSICIAN:: Jan Coleman POTENTIAL DISCHARGE NEEDS:: Follow up with discharge plan, PCP and Oncologist. PATIENT/FAMILY EDUCATION NEEDS:: Discharge plan, limitations, follow up plan and Ask Me Three. ANTICIPATED BARRIERS TO DISCHARGE:: None identified. TRANSPORTATION:: Via private vehicle with daughter PLAN:: Candace will discharge home with resumption of home health services. She will transport via private vehicle with her daughter. CM will continue to provide support to patient, family and discharge planning needs.
--- NOTE | 2019-04-17 11:24 | PT.INIE ---
Date of service: 04/17/19 Time of Service: 10:55 PT Notes Visit Reasons: Urinary tract infection Physical Therapy Inpatient Initial Evaluation 04/17/2019 Referring Doctor: Sheyla Reno MD PT Orders: PT CONSULT: Limited ability Precautions: Fall. Standard. Activity as tolerated. Patient Profile/Admitting Diagnosis: Patient is a 59-year-old female with past medical history significant for stage IV breast carcinoma with metastases to the lymphatic system and bones, and renal insufficiency, RAKAN, and cancer related pain who presented to the ED on 04/16/2018 with chief complaints of fatigue and shortness of breath with exertion. Patient is diagnosed with urinary tract infection and acute kidney injury, acute kidney injury, and weakness with referral to skilled physical therapy services to address impairments and strength and activity tolerance. PMHX: Medical History C. difficile diarrhea (Acute) Cancer related pain (Chronic) much improved with fentanyl patch Carpal tunnel syndrome (Acute) Chronic adrenal insufficiency (Acute) Chronic pain (Chronic) Chronic respiratory failure with hypoxia (Chronic) Chronic venous stasis dermatitis (Chronic) COPD (chronic obstructive pulmonary disease) (Chronic) On nocturnal oxygen - 2L prn Depression (Chronic) Diabetes mellitus (Chronic) Insulin dependent Diverticulosis (Acute) Dyslipidemia (Chronic) Goals of care, counseling/discussion (Acute) History of breast cancer (Chronic) metastatic, with lymphatic spread and bone mets Hyperlipidemia (Acute) Hypopituitarism (Chronic) Hypothyroidism (Chronic) Influenza B (Acute) Iron deficiency anemia (Acute) Metastatic breast cancer (Chronic) Obesity (Chronic) Obstructive sleep apnea (Chronic) per [facility] records Palliative care patient (Chronic) Pneumonia (Acute) POLST (Physician Orders for Life-Sustaining Treatment) (Acute) done 03/26/19; sent to [facility], [facility], original to her Restless leg syndrome (Acute) Spinal stenosis (Acute) Stage IV breast cancer in female (Chronic) Uncontrolled pain (Resolved) Surgical History H/O bilateral mastectomy (Acute) H/O colonoscopy with polypectomy (Acute) History of carpal tunnel release of both wrists (Acute) Port-A-Cath in place (Acute) Status post transsphenoidal pituitary resection (Acute) Social History/Home Situation: Candace lives with her daughter in [place], [place] in a two-story house with a ramp to enter with rails on both sides. Patient has stairs to the second floor of the house but has everything she needs on the first floor. She is disabled. She has 2 daughters locally. She receives choices for care highest needs, and her daughter Kiki is her primary provider for 12 years now. Kiki's provides assistance with bathing and does meal preapration and assistance with lower body dressing. She was independent with front-wheeled walker for in-house ambulation and uses the 4-wheeled walker for outdoor ambulation. She has to walk about 80-90 feet to get to her car. She is dependent on her daughter for transportation to and from appointments. Daughter also provides assistance with bathing patient's back due to body habitus. Equipment Owned/DME: bariatric FWW, bariatric hospital bed, bariatric recliner, bariatric front wheeled walker Subjective: Patient is seen resting in bedside chair and is agreeable to a PT evaluation. She feels just a lot better compared to yesterday but continues to feel tired and weak. She continues to report continued weakness and tenderness on left knee. Objective: General Observation: IV in right UE open. Hemosiderin staining observed in bilateral distal legs from CVI. Abdominal panniculus. Obese. Mental Status: Alert and oriented x 4 Pain: Patient describes her usual pain as 4/10 ROM: Right Upper Extremity: Shoulder flexion 90-100 degrees. Elbow flexion WFL. Hands/wrist and fingers are WFL. Left Upper Extremity: Shoulder flexion 90-100 degrees. Elbow flexion WFL. Hands/wrist and fingers are WFL. Right Lower Extremity: Patient is able to bend hip to about 20 degrees beyond 90 while seated at edge of bed. Knee flexion WFL. Dorsiflexion/plantarflexion WFL. Left Lower Extremity: Patient is able to bend hip to about 10 degrees beyond 90 while seated at edge of bed. Knee flexion WFL. Dorsiflexion/plantarflexion WFL. Strength: Right Upper Extremity: Shoulder flexion 3-/5. Elbow flexion 4/5. Research Kennel [employer]visor strong and functional Left Upper Extremity: Shoulder flexion 3-/5. Elbow flexion 4/5. Research Kennel Supervisor strong and functional. Right Lower Extremity: Hip flexion 3-/5. Hip extension 3/5. Knee flexion 4/5. Knee extension 4/5. Ankle dorsiflexion/plantarflexion 4/5. Left Lower Extremity: Hip flexion 3-/5. Hip extension 3/5. Knee flexion 4-/5. Knee extension 4-/5. Ankle dorsiflexion/plantarflexion 4/5. Bed Mobility/Transfers: Sit to stand: SBA Stand to sit: SBA Bed to chair: SBA Chair to bed: SBA Gait: Patient tolerated level surface ambulation of 80 feet using bariatric front wheeled walker with CGA and wheelchair follow of PT. Decreased julia. Reciprocal step-to gait pattern. Reported some discomfort on left knee. Oxygen saturation went down to 86% on room air but was able to re-saturate back up to 96% after 1 to 2 minutes of rest without the need for oxygen supplementation. Balance: Static Sitting: Normal Dynamic Sitting: Good Static Standing: Fair Dynamic Standing: Fair Special Tests: Mobility Limitations Standardized Measure [facility] AM-PAC 6 clicks Basic Mobility Inpatient Short Form: Raw Score: 19 CMS Score: 42 % deficit Informed Consent/Education: Patient was instructed in purpose of PT consult and plan of care. 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 Patient is diagnosed with urinary tract infection, acute kidney injury, and weakness with referral to skilled physical therapy services to address impairments and strength and activity tolerance. Her daughter is her /7 caregiver. Her prognosis for regaining prior level of function is fair to good. Patient does have chronic functional mobility deficits and has a daughter for her longtime caregiver. PT goals will be aimed at addressing the following impairment level findings: 1. Decreased range of motion for hip and kneess bilaterally 2. Impaired strength to B LE 3. Impaired activity tolerance 4. Decreased balance skills Impairments are contributing to the following functional limitations: 1. Increased risk for falls due to balance impairments 2. Limited ambulation distance Patient is assessed as a Moderate 44435 complexity based on the following: History: 59-year-old female with past medical history, impairment level findings, functional limitations, and [facility] deficit score of 42% Examination: Decline in mobility level, strength deficits, and activity tolerance limitations as above due to current diagnoses Presentation: Evolving Decision Making: Moderate complexity [id number] Goals: Goals X1 week 1. Supine-Sit independent 2. Sit-Supine independent 3. Sit-Stand independent 4. Stand-Sit independent 5. Bed-Chair supervision 6. Chair-Bed supervision 7. Gait indoor and outdoor ambulation using FWW for at least 200 feet 8. Independent with home exercise program 9. Balance good Plan of Care/Treatment Plan: 1-2x/day, 7 days/week x 1 week. Plan of care has been reviewed with the CERTIFIED NEURODIAGNOSTIC TECHNOLOGIST providing the service under Physical Therapy direction. Initiate Physical Therapy intervention for strengthening, bed mobility, transfers, gait, stairs, balance training, use of assistive device, HEP education/training. DISCHARGE RECOMMENDATIONS: Patient will benefit from home health PT services in order to progress mobility level using four-wheeled walker, assess home safety, identify additional equipment needs, and cotninue with a functional maintenance program that will increase ability of patient to remain at home with daughter. TREATMENT CODE/TIME: 00392 x 30 minutes beginning at 10:55 AM. Thank you very much for this referral. Allie Miguel PT, DPT, CLT [facility] In[facility] at [place], [place]
[2019-04-17] MEDS: Cholestyramine/Aspartame PKT 1 EACH PO (12:26)
--- NOTE | 2019-04-17 13:54 | PHARADMIT ---
Addendum entered by Macarena Johnson 04/18/19 10:43: Pharmacy Note Subjective GNR UTI, present on admission. 1 bottle of blood cultures is also growing GNR - septic. Objective FS 194, Scr coming down. crcl ~62.5ml/min per global RPH using Adj body wt Assessment ceftriaxone stopped and levofloxacin started due to urine culture results. Plan need to repeat BC Original Note: Admission Pharmacy Clinical Review UTI Code Status DNR/DNI Current Weight 138 kg Renally Cleared and Narrow Therapeutic Index Meds CRCL ~37ML/MIN QTc Value / Action Taken 434 BP Control, Fever 115/71 AFEBRILE Electrolytes reviewed OK DVT Prophylaxis ENOXAPARIN Opiate Usage / Scheduled Bowel Regimen Ordered PRN/NO Plt/SCr for Heparin / Enoxaparin 188/1.46 INR for Warfarin NA H/H stable, WBC/Bands 9.8/30.9 WBC 3.8 Antibiotic appropriateness CEFTRIAXONE Cultures and Sensitivities UC GRAM NEG AIDAN Surgical ABX d/c within 24 hr NA DM control / Insulin Dosing FS 321, INSULIN REGULAR Heart Failure (Check EF%) (MCKENNA's, B-Block, Diuretics) IV to PO Switch Home Meds Reviewed Home Meds Not Ordered Spiriva Respimat 1 puff INHALATION DAILY ferrous sulfate 325 mg PO TID hydrocortisone 5 mg PO QNOON hydrocortisone 20 mg PO QAM guaifenesin [Mucinex] 600 mg PO BID #10 tab loratadine 10 mg PO DAILY Lactobacillus acidophilus 1,000 mmu cells PO DAILY #30 cap cefpodoxime 400 mg PO BID #30 tab 03/28/19 Comments
[2019-04-17 15:10] VITALS: BP 122/70; PULSE 79; RESP 18; TEMP 36.8; O2SAT 93
[2019-04-17] MEDS: Enoxaparin 30 MG/0.3 ML SYR SC (15:12)
[2019-04-17] MEDS: HYDROcodone 5/Acetaminophen 325 TAB PO (16:10)
--- NOTE | 2019-04-17 16:16 | PGE_ITS ---
Date of Service Date of service: 04/17/19 Time of Service: 16:18 Assessment and Plan Assessment and plan (1) Urinary tract infection: Status: Acute Assessment and plan: GNR UTI, present on admission. 1 bottle of blood cultures is also growing GNR - septic. Continue empiric ceftriaxone, awaiting speciation/sensitivities. Increase dose to 2 gram IV daily. As she is on systemic abx, will cover with prophylactic oral vancomycin given h/o C.Diff. Qualifiers: Urinary tract infection type: site unspecified Hematuria presence: without hematuria Qualified Code(s): N39.0 - Urinary tract infection, site not specified (2) Weakness: Status: Acute Assessment and plan: Multifactorial - due to GNR UTI Present on admission, as well as likely effects of fentanyl and possibly adrenal insufficiency setting in. Improving. Continue empiric abx, current dose of fentanyl, stress dose steroid taper. PT consulted. (3) Stage IV breast cancer in female: Status: Chronic Assessment and plan: Continue current tx. (4) Adrenal insufficiency: Status: Chronic Assessment and plan: Start to taper IV hydrocortisone. (5) Obstructive sleep apnea: Status: Chronic Assessment and plan: Continue home O2. (6) Cancer related pain: Status: Chronic Assessment and plan: Would not change dose of fentanyl patch today - ho wever, if still in a lot of pain tomorrow, would raise the dose then. (7) SIERRA (acute kidney injury): Status: Acute Assessment and plan: Cr better. Will attempt to obtain a renal US over the weekend. (8) COPD (chronic obstructive pulmonary disease): Status: Chronic Assessment and plan: Continue outpatient inhalers. Not in acute exacerbation. (9) Hypothyroidism: Status: Chronic Assessment and plan: continue current levothyroxine dose. 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 Consider palliative care consult. Subjective Subjective Interval history since last seen: Feels a lot better today. States she has not walked the way she did today with PT in a long time. Denies dizziness, chest pain, states she is no longer short of breath, though she was short of breath yesterday. Denies n/v. She thinks she might be ready to go home in 1 more day. Reports 8/10 pain in her lower back. Exam Narrative Exam Narrative: General: Very pleasant middle-aged female, laying comfortably in bed, quick to respond, recognizes me HEENT: EOMI, MMM Heart: RRR, no m/r/g Lungs: CTAB anteriorly; does cough several times Abdomen: soft, nontender, nondistended Extremities: chronic venous stasis dermatitis; no open wounds; trace edema BLE's, no c/c. Objective Objective Clinical Data: Abnormal lab results 04/17/19 04/17/19 Range/Units 06:35 06:35 WBC 3.80 L (4.4-10.8) k/cumm RBC 3.22 L (4.00-5.20) m/cumm Hgb 9.8 L D (12.0-15.5) g/dL Hct 30.9 L (36.0-46.0) % MCV 96.0 H (80-95) fL MCHC 31.7 L (32.0-36.0) g/dL RDW 16.3 H (11.7-14.6) % Carbon Dioxide 32.6 H (21.0-32.0) mmol/L Creatinine 1.46 H (0.55-1.02) mg/dL Glucose 205 H (74-106) mg/dL Vital Signs Temperature 36.8 C 04/17/19 15:10 Temperature Source Tympanic 04/17/19 15:10 Pulse 79 04/17/19 15:10 Pulse Rhythm Regular 04/17/19 08:20 Respiratory Rate 18 04/17/19 15:10 Respiratory Effort 04/17/19 08:20 Respiratory Depth Normal 04/16/19 11:00 Respiratory Pattern Normal 04/17/19 08:20 Blood Pressure 122/70 04/17/19 15:10 Pulse Oximetry 93 L 04/17/19 15:10 Oxygen Delivery Method Nasal Cannula 04/17/19 08:20 Oxygen Flow Rate 2 04/17/19 08:20 Pain Level 9 04/17/19 16:10 Intake & Output 04/16/19 04/17/19 04/17/19 23:59 11:59 23:59 Intake Total 1249 50 / 50 Output Total 300 / 300 Balance 1249 50 / -250 -300 / -250 Weight 138 kg Intake: IV 1000 / 1550 50 / 50 Oral 250 / 450 Output: Urine 300 / 300 Other: Urine Color Yellow Yellow Yellow Urine Appearance Cloudy Urine Odor Strong Normal Normal Comment sat on commode but had no more urine- Voiding Methods Diaper Bedside Commode Incontinent Laboratory Results WBC 3.80 k/cumm (4.4-10.8) L 04/17/19 06:35 RBC 3.22 m/cumm (4.00-5.20) L 04/17/19 06:35 Hgb 9.8 g/dL (12.0-15.5) L D 04/17/19 06:35 Hct 30.9 % (36.0-46.0) L 04/17/19 06:35 MCV 96.0 fL (80-95) H 04/17/19 06:35 MCH 30.4 pg (27.0-33.0) 04/17/19 06:35 MCHC 31.7 g/dL (32.0-36.0) L 04/17/19 06:35 RDW 16.3 % (11.7-14.6) H 04/17/19 06:35 Plt Count 188 x1000/uL (130-400) 04/17/19 06:35 MPV 9.1 fL (8.0-11.0) 04/17/19 06:35 Immature Gran % 0.0 % 04/17/19 06:35 Neutrophils % 54.7 04/17/19 06:35 Lymphocytes % 35.5 04/17/19 06:35 Monocytes % 7.9 04/17/19 06:35 Eosinophils % 1.6 04/17/19 06:35 Basophils % 0.3 04/17/19 06:35 Absolute Neutrophils 2.08 k/cumm (1.2-6.7) 04/17/19 06:35 Absolute Lymphocytes 1.35 k/cumm (1.2-3.4) 04/17/19 06:35 Absolute Monocytes 0.30 k/cumm (0.11-0.7) 04/17/19 06:35 Absolute Eosinophils 0.06 k/cumm (0.0-0.7) 04/17/19 06:35 Absolute Basophils 0.01 k/cumm (0.0-0.2) 04/17/19 06:35 Differential Comment Rbc morph reviewed 04/17/19 06:35 RBC Morphology See below 04/17/19 06:35 Polychromasia Present 04/17/19 06:35 Hypochromasia 1+ 04/17/19 06:35 Basophilic Stippling Present 04/17/19 06:35 Anisocytosis 1+ 04/17/19 06:35 ABG Sample Site Cancelled 04/16/19 Unknown ABG pH Cancelled 04/16/19 Unknown ABG pCO2 Cancelled 04/16/19 Unknown ABG pO2 Cancelled 04/16/19 Unknown ABG HCO3 Cancelled 04/16/19 Unknown ABG Total CO2 Cancelled 04/16/19 Unknown ABG O2 Saturation Cancelled 04/16/19 Unknown ABG Base Excess Cancelled 04/16/19 Unknown Oxygen Liter Flow Cancelled 04/16/19 Unknown FiO2 Cancelled 04/16/19 Unknown Sodium 138 mmol/L (136-145) 04/17/19 06:35 Potassium 4.2 mmol/L (3.5-5.1) 04/17/19 06:35 Chloride 100 mmol/L (98-107) 04/17/19 06:35 Carbon Dioxide 32.6 mmol/L (21.0-32.0) H 04/17/19 06:35 Anion Gap 5.4 mmol/L (3-11) 04/17/19 06:35 BUN 15 mg/dL (7-18) 04/17/19 06:35 Creatinine 1.46 mg/dL (0.55-1.02) H 04/17/19 06:35 Estimated GFR/1.73 m2 36.54 (mL/min/1.73m2) 04/17/19 06:35 Glucose 205 mg/dL (74-106) H 04/17/19 06:35 Lactate 0.7 mmol/L (0.6-1.4) 04/17/19 06:35 Calcium 8.6 mg/dL (8.5-10.1) 04/17/19 06:35 Magnesium 1.8 mg/dL (1.8-2.4) 04/17/19 06:35 Total Bilirubin 0.7 mg/dL (0.2-1.0) 04/16/19 09:07 AST 17 U/L (15-37) 04/16/19 09:07 ALT 14 U/L (14-59) 04/16/19 09:07 Alkaline Phosphatase 119 U/L (46-116) H 04/16/19 09:07 Troponin I < 0.05 ng/Ml (<0.06) 04/16/19 09:07 NT-Pro-B Natriuret Pep 79 pg/mL (<300) 04/16/19 09:07 Total Protein 8.6 g/dL (6.4-8.2) H 04/16/19 09:07 Albumin 3.4 g/dL (3.4-5.0) 04/16/19 09:07 TSH 0.27 uIU/mL (0.36-3.74) L 04/16/19 09:07 Free T4 0.99 ng/dL (0.76-1.46) 04/16/19 09:07 Urine Color Yellow (Yellow) 04/16/19 11:03 Urine Clarity Cloudy (Clear) 04/16/19 11:03 Urine pH 6.0 (5-8) 04/16/19 11:03 Ur Specific [place] 1.010 (1.005-1.025) 04/16/19 11:03 Urine Protein 30 mg/dL (Negative) H 04/16/19 11:03 Urine Ketones Negative mg/dL (Negative) 04/16/19 11:03 Urine Blood Small (Negative) H 04/16/19 11:03 Urine Nitrite Positive (Negative) H 04/16/19 11:03 Urine Bilirubin Negative (Negative) 04/16/19 11:03 Urine Urobilinogen 0.2 EU/dL (Up TO 0.2) 04/16/19 11:03 Ur Leukocyte Esterase Large (Negative) H 04/16/19 11:03 Urine RBC HPF (0-2) 04/16/19 11:03 Urine WBC >50 HPF (0-5) H 04/16/19 11:03 Ur Epithelial Cells Not Applicable 04/16/19 11:03 Urine Crystals Not Applicable 04/16/19 11:03 Urine Bacteria Many HPF (Negative) 04/16/19 11:03 Urine Mucus Not Applicable 04/16/19 11:03 Ur Culture Indicated? Yes 04/16/19 11:03 Urine Glucose Negative mg/dL (Negative) 04/16/19 11:03
[2019-04-17] MEDS: Hydrocortisone SOD SUC. 100 MG VIAL 25 MG IVP (17:45)
[2019-04-17] MEDS: Atorvastatin 20 MG TAB 40 MG PO (22:17)
[2019-04-17] MEDS: DULoxetine 30 MG CAP 60 MG PO (22:17)
[2019-04-17 23:03] VITALS: BP 118/68; PULSE 80; RESP 18; TEMP 36.7; O2SAT 92
[2019-04-18] MEDS: Vancomycin 125 MG CAP PO ×4 (00:32→17:50)
[2019-04-18] MEDS: Hydrocortisone SOD SUC. 100 MG VIAL 25 MG IVP ×2 (06:19→17:50)
[2019-04-18] MEDS: Normal Saline Flush 10 ML SYR IVP ×2 (06:20→06:21)
[2019-04-18 07:00] LABS: Abs Immature Grans 0.01 k/cumm (0.0-0.09); Absolute Basophil Count 0.02 k/cumm (0.0-0.2); Absolute Eosinophil Count 0.14 k/cumm (0.0-0.7); Absolute Lymphocyte Count 1.61 k/cumm (1.2-3.4); Absolute Monocyte Count 0.19 k/cumm (0.11-0.7); Absolute Neutrophil Count 1.64 k/cumm (1.2-6.7); Basophils % 0.6; Eosinophils % 3.9; HCT 30.2 % (36.0-46.0); HGB 9.6 g/dL (12.0-15.5); Immature Grans % 0.3 %; Lymphocytes % 44.6; Mean Corp. HGB Concentration 31.8 g/dL (32.0-36.0); Mean Corpuscular Hemoglobin 30.6 pg (27.0-33.0); Mean Corpuscular Volume 96.2 fL (80-95); Monocytes % 5.3; Neutrophils % 45.3; Platelet Count 191 x1000/uL (130-400); RBC 3.14 m/cumm (4.00-5.20); RBC Distribution Width 16.4 % (11.7-14.6); White Blood Cell Count 3.61 k/cumm (4.4-10.8)
[2019-04-18 07:45] LABS: Anion Gap 7.3 mmol/L (3-11); BUN 13 mg/dL (7-18); CO2 30.7 mmol/L (21.0-32.0); CREATININE 1.35 mg/dL (0.55-1.02); Calcium 8.5 mg/dL (8.5-10.1); Chloride 102 mmol/L (98-107); Glucose 162 mg/dL (74-106); Magnesium 1.9 mg/dL (1.8-2.4); Potassium 3.8 mmol/L (3.5-5.1); Sodium 140 mmol/L (136-145)
[2019-04-18 07:49] VITALS: O2SAT 93
[2019-04-18] MEDS: Budesonide/Formoterol 160/4.5 6 GM 60 PUFF INH IH ×2 (07:50→20:02)
[2019-04-18] MEDS: Tiotropium Bromide-Respimat 10 PUFF INH IH (07:50)
[2019-04-18 08:03] VITALS: BP 121/74; PULSE 71; RESP 22; TEMP 36.6; O2SAT 91
[2019-04-18 08:30] VITALS: O2SAT 92
[2019-04-18] MEDS: Cyanocobalamin 500 MCG TAB 1000 MCG PO (08:32)
[2019-04-18] MEDS: Folic Acid 1 MG TAB PO (08:32)
[2019-04-18] MEDS: Montelukast 10 MG TAB PO (08:32)
[2019-04-18] MEDS: Pregabalin 100 MG CAP 200 MG PO ×3 (08:33→20:04)
[2019-04-18] MEDS: Cetirizine 10 MG TAB PO (08:33)
[2019-04-18] MEDS: Letrozole 2.5 MG TAB PO (08:33)
[2019-04-18] MEDS: Aspirin E.C. 81 MG TABEC PO (08:33)
[2019-04-18] MEDS: Levothyroxine 150 MCG TAB PO (08:33)
[2019-04-18] MEDS: carBAMazepine 200 MG TAB PO ×2 (08:33→20:04)
--- NOTE | 2019-04-18 10:25 | PT.INNT ---
PT Notes Visit Reasons: Urinary tract infection pt refused exercises and walking today. Reports increased cancer pain from tailbone radiating into hip and knee. Will check back with her tomorrow.
[2019-04-18] MEDS: levoFLOXacin 750 MG/150 ML BAG 100 MG IVPB (12:16)
[2019-04-18 15:16] VITALS: BP 119/74; PULSE 71; RESP 20; TEMP 36.3; O2SAT 94
--- NOTE | 2019-04-18 16:49 | PGE_ITS ---
Date of Service Date of service: 04/18/19 Time of Service: 16:50 Assessment and Plan Assessment and plan (1) Urinary tract infection: Status: Acute Assessment and plan: Causing sepsis/bacteremia; due to citrobacter, present on admission. 1 bottle of blood cultures is also growing GNR - speciation not available until tomorrow. Sensitivity to ceftriaxone was intermediate - changed abx to levofloxacin. Continue prophylactic oral vancomycin given h/o C.Diff. Repeat blood cultures done today. Qualifiers: Urinary tract infection type: site unspecified Hematuria presence: without hematuria Qualified Code(s): N39.0 - Urinary tract infection, site not specified (2) Weakness: Status: Acute Assessment and plan: Multifactorial - due to UTI/sepsis, as well as likely effects of fentanyl and possibly adrenal insufficiency setting in. Improving. Continue current dose of fentanyl, stress dose steroids at current dose Continue PT. (3) Stage IV breast cancer in female: Status: Chronic Assessment and plan: Continue current tx. (4) Adrenal insufficiency: Status: Chronic Assessment and plan: Keep dose of hydrocortisone the same today. (5) Obstructive sleep apnea: Status: Chronic Assessment and plan: Continue home O2. (6) Cancer related pain: Status: Chronic Assessment and plan: Would not change dose of fentanyl patch today. (7) SIERRA (acute kidney injury): Status: Acute Assessment and plan: Cr better. Await renal US over the weekend. (8) COPD (chronic obstructive pulmonary disease): Status: Chronic Assessment and plan: Continue outpatient inhalers. Not in acute exacerbation. (9) Hypothyroidism: Status: Chronic Assessment and plan: continue current levothyroxine dose. 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 palliative care consult. Subjective Subjective Interval history since last seen: Feels better. Denies dizziness, chest pain, shortness of breath, nausea, vomiting. Didn't feel so good in general this morning, so did not work with PT. [place] better by afternoon - but PT was gone, so she did not get to walk in the hallway. Exam Narrative Exam Narrative: General: Very pleasant middle-aged female, laying comfortably in bed, looks tired HEENT: EOMI, MMM Heart: RRR, no m/r/g Lungs: CTAB anteriorly Abdomen: soft, nontender, nondistended Extremities: chronic venous stasis dermatitis; no open wounds; trace edema BLE's, no c/c. Objective Objective Clinical Data: Abnormal lab results 04/18/19 04/18/19 Range/Units 06:30 06:30 WBC 3.61 L (4.4-10.8) k/cumm RBC 3.14 L (4.00-5.20) m/cumm Hgb 9.6 L (12.0-15.5) g/dL Hct 30.2 L (36.0-46.0) % MCV 96.2 H (80-95) fL MCHC 31.8 L (32.0-36.0) g/dL RDW 16.4 H (11.7-14.6) % Creatinine 1.35 H (0.55-1.02) mg/dL Glucose 162 H (74-106) mg/dL Vital Signs Temperature 36.3 C L 04/18/19 15:16 Temperature Source Tympanic 04/18/19 15:16 Pulse 71 04/18/19 15:16 Pulse Rhythm Regular 04/18/19 08:30 Respiratory Rate 20 04/18/19 15:16 Respiratory Effort 04/18/19 08:30 Respiratory Depth Normal 04/16/19 11:00 Respiratory Pattern Normal 04/18/19 08:30 Blood Pressure 119/74 04/18/19 15:16 Pulse Oximetry 94 L 04/18/19 15:16 Oxygen Delivery Method Room Air 04/18/19 15:16 Oxygen Flow Rate 0 04/18/19 15:16 Pain Level 8 04/18/19 08:03 Intake & Output 04/17/19 04/18/19 04/18/19 23:59 11:59 23:59 Intake Total 530 / 830 250 / 500 250 / 500 Output Total 550 / 550 300 / 300 Balance -20 / 280 -50 / 200 250 / 200 Weight 138 kg Intake: IV 50 / 100 Oral 480 / 730 250 / 500 250 / 500 Output: Urine 550 / 550 300 / 300 Other: Urine Color Straw Yellow Yellow Urine Appearance Cloudy Clear Urine Odor Normal Normal Normal Voiding Methods Bedside Commode Incontinent Incontinent Laboratory Results WBC 3.61 k/cumm (4.4-10.8) L 04/18/19 06:30 RBC 3.14 m/cumm (4.00-5.20) L 04/18/19 06:30 Hgb 9.6 g/dL (12.0-15.5) L 04/18/19 06:30 Hct 30.2 % (36.0-46.0) L 04/18/19 06:30 MCV 96.2 fL (80-95) H 04/18/19 06:30 MCH 30.6 pg (27.0-33.0) 04/18/19 06:30 MCHC 31.8 g/dL (32.0-36.0) L 04/18/19 06:30 RDW 16.4 % (11.7-14.6) H 04/18/19 06:30 Plt Count 191 x1000/uL (130-400) 04/18/19 06:30 MPV 9.0 fL (8.0-11.0) 04/18/19 06:30 Immature Gran % 0.3 % 04/18/19 06:30 Neutrophils % 45.3 04/18/19 06:30 Lymphocytes % 44.6 04/18/19 06:30 Monocytes % 5.3 04/18/19 06:30 Eosinophils % 3.9 04/18/19 06:30 Basophils % 0.6 04/18/19 06:30 Absolute Neutrophils 1.64 k/cumm (1.2-6.7) 04/18/19 06:30 Absolute Lymphocytes 1.61 k/cumm (1.2-3.4) 04/18/19 06:30 Absolute Monocytes 0.19 k/cumm (0.11-0.7) 04/18/19 06:30 Absolute Eosinophils 0.14 k/cumm (0.0-0.7) 04/18/19 06:30 Absolute Basophils 0.02 k/cumm (0.0-0.2) 04/18/19 06:30 Differential Comment Rbc morph reviewed 04/17/19 06:35 RBC Morphology See below 04/17/19 06:35 Polychromasia Present 04/17/19 06:35 Hypochromasia 1+ 04/17/19 06:35 Basophilic Stippling Present 04/17/19 06:35 Anisocytosis 1+ 04/17/19 06:35 ABG Sample Site Cancelled 04/16/19 Unknown ABG pH Cancelled 04/16/19 Unknown ABG pCO2 Cancelled 04/16/19 Unknown ABG pO2 Cancelled 04/16/19 Unknown ABG HCO3 Cancelled 04/16/19 Unknown ABG Total CO2 Cancelled 04/16/19 Unknown ABG O2 Saturation Cancelled 04/16/19 Unknown ABG Base Excess Cancelled 04/16/19 Unknown Oxygen Liter Flow Cancelled 04/16/19 Unknown FiO2 Cancelled 04/16/19 Unknown Sodium 140 mmol/L (136-145) 04/18/19 06:30 Potassium 3.8 mmol/L (3.5-5.1) 04/18/19 06:30 Chloride 102 mmol/L (98-107) 04/18/19 06:30 Carbon Dioxide 30.7 mmol/L (21.0-32.0) 04/18/19 06:30 Anion Gap 7.3 mmol/L (3-11) 04/18/19 06:30 BUN 13 mg/dL (7-18) 04/18/19 06:30 Creatinine 1.35 mg/dL (0.55-1.02) H 04/18/19 06:30 Estimated GFR/1.73 m2 40.00 (mL/min/1.73m2) 04/18/19 06:30 Glucose 162 mg/dL (74-106) H 04/18/19 06:30 Lactate 0.7 mmol/L (0.6-1.4) 04/17/19 06:35 Calcium 8.5 mg/dL (8.5-10.1) 04/18/19 06:30 Magnesium 1.9 mg/dL (1.8-2.4) 04/18/19 06:30 Total Bilirubin 0.7 mg/dL (0.2-1.0) 04/16/19 09:07 AST 17 U/L (15-37) 04/16/19 09:07 ALT 14 U/L (14-59) 04/16/19 09:07 Alkaline Phosphatase 119 U/L (46-116) H 04/16/19 09:07 Troponin I < 0.05 ng/Ml (<0.06) 04/16/19 09:07 NT-Pro-B Natriuret Pep 79 pg/mL (<300) 04/16/19 09:07 Total Protein 8.6 g/dL (6.4-8.2) H 04/16/19 09:07 Albumin 3.4 g/dL (3.4-5.0) 04/16/19 09:07 TSH 0.27 uIU/mL (0.36-3.74) L 04/16/19 09:07 Free T4 0.99 ng/dL (0.76-1.46) 04/16/19 09:07 Urine Color Yellow (Yellow) 04/16/19 11:03 Urine Clarity Cloudy (Clear) 04/16/19 11:03 Urine pH 6.0 (5-8) 04/16/19 11:03 Ur Specific [place] 1.010 (1.005-1.025) 04/16/19 11:03 Urine Protein 30 mg/dL (Negative) H 04/16/19 11:03 Urine Ketones Negative mg/dL (Negative) 04/16/19 11:03 Urine Blood Small (Negative) H 04/16/19 11:03 Urine Nitrite Positive (Negative) H 04/16/19 11:03 Urine Bilirubin Negative (Negative) 04/16/19 11:03 Urine Urobilinogen 0.2 EU/dL (Up TO 0.2) 04/16/19 11:03 Ur Leukocyte Esterase Large (Negative) H 04/16/19 11:03 Urine RBC HPF (0-2) 04/16/19 11:03 Urine WBC >50 HPF (0-5) H 04/16/19 11:03 Ur Epithelial Cells Not Applicable 04/16/19 11:03 Urine Crystals Not Applicable 04/16/19 11:03 Urine Bacteria Many HPF (Negative) 04/16/19 11:03 Urine Mucus Not Applicable 04/16/19 11:03 Ur Culture Indicated? Yes 04/16/19 11:03 Urine Glucose Negative mg/dL (Negative) 04/16/19 11:03
[2019-04-18] MEDS: Enoxaparin 30 MG/0.3 ML SYR SC (17:51)
[2019-04-18] MEDS: HYDROcodone 5/Acetaminophen 325 TAB PO (20:03)
--- NOTE | 2019-04-18 20:14 | PDOC.CMPRO ---
- If Service Date Differs Date of service: 04/18/19 Time of Service: 20:14 Care Management Progress Note S/O: Candace continues to be monitored for UTI as it is causing sepsis/bacteremia. Palliative has been consulted to discuss goals of care. Candace's daughter lives with her and provides her care. Candace was unable to meet with CM when attempted today. CM will continue to follow. A: Candace is a 59 year old female admitted to [facility] on 04/16/19 with a UTI. P: Anticipate Candace will discharge home with resumption of home health services. She will transport via private vehicle with her daughter. CM will continue to provide support to patient, family and discharge planning needs.
[2019-04-18] MEDS: Atorvastatin 20 MG TAB 40 MG PO (22:57)
[2019-04-18] MEDS: DULoxetine 30 MG CAP 60 MG PO (22:57)
[2019-04-18 23:09] VITALS: BP 125/73; PULSE 22; RESP 22; TEMP 36.8; O2SAT 92
[2019-04-19] MEDS: Vancomycin 125 MG CAP PO ×5 (00:07→23:33)
[2019-04-19] MEDS: Hydrocortisone SOD SUC. 100 MG VIAL 25 MG IVP (06:18)
[2019-04-19] MEDS: Normal Saline Flush 10 ML SYR IVP ×2 (06:19→12:15)
[2019-04-19 06:28] LABS: Abs Immature Grans 0.01 k/cumm (0.0-0.09); Absolute Basophil Count 0.01 k/cumm (0.0-0.2); Absolute Eosinophil Count 0.06 k/cumm (0.0-0.7); Absolute Lymphocyte Count 1.55 k/cumm (1.2-3.4); Absolute Monocyte Count 0.23 k/cumm (0.11-0.7); Absolute Neutrophil Count 1.63 k/cumm (1.2-6.7); Basophils % 0.3; Eosinophils % 1.7; HCT 30.8 % (36.0-46.0); HGB 9.9 g/dL (12.0-15.5); Immature Grans % 0.3 %; Lymphocytes % 44.4; Mean Corp. HGB Concentration 32.1 g/dL (32.0-36.0); Mean Corpuscular Hemoglobin 30.7 pg (27.0-33.0); Mean Corpuscular Volume 95.4 fL (80-95); Monocytes % 6.6; Neutrophils % 46.7; Platelet Count 211 x1000/uL (130-400); RBC 3.23 m/cumm (4.00-5.20); RBC Distribution Width 16.1 % (11.7-14.6); White Blood Cell Count 3.49 k/cumm (4.4-10.8)
[2019-04-19 06:37] LABS: Anion Gap 6.5 mmol/L (3-11); BUN 17 mg/dL (7-18); CO2 32.5 mmol/L (21.0-32.0); CREATININE 1.26 mg/dL (0.55-1.02); Calcium 8.3 mg/dL (8.5-10.1); Chloride 102 mmol/L (98-107); Estimated GFR 43.32 (mL/min/1.73m2); Glucose 128 mg/dL (74-106); Potassium 4.1 mmol/L (3.5-5.1); Sodium 141 mmol/L (136-145)
[2019-04-19 07:56] VITALS: BP 108/62; PULSE 62; RESP 18; TEMP 36.8; O2SAT 98
--- NOTE | 2019-04-19 08:00 | DI.US_ITS ---
EXAM: US RENAL CLINICAL HISTORY: complicated UTI. TECHNIQUE: Heard scale, color and spectral Doppler were used. COMPARISON: US EXTREMITY VENOUS BI from 03/24/2019 FINDINGS: Renal size in cm: Right: 10.9 left: 11.3 Echogenicity: Normal Hydronephrosis: No Cyst or mass: No Nephrolithiasis: No Other findings: None Bladder:Not visualized on this examination. IMPRESSION: 1. The kidneys are grossly unremarkable. 2. Urinary bladder was not visualized during this examination.
[2019-04-19] MEDS: Budesonide/Formoterol 160/4.5 6 GM 60 PUFF INH IH ×2 (08:02→20:10)
[2019-04-19] MEDS: Tiotropium Bromide-Respimat 10 PUFF INH IH (08:02)
[2019-04-19 08:03] VITALS: O2SAT 99
[2019-04-19] MEDS: Aspirin E.C. 81 MG TABEC PO (08:26)
[2019-04-19] MEDS: carBAMazepine 200 MG TAB PO ×2 (08:26→20:11)
[2019-04-19] MEDS: Folic Acid 1 MG TAB PO (08:27)
[2019-04-19] MEDS: Cyanocobalamin 500 MCG TAB 1000 MCG PO (08:27)
[2019-04-19] MEDS: Cetirizine 10 MG TAB PO (08:27)
[2019-04-19] MEDS: Letrozole 2.5 MG TAB PO (08:28)
[2019-04-19] MEDS: Pregabalin 100 MG CAP 200 MG PO ×3 (08:28→20:10)
[2019-04-19] MEDS: Levothyroxine 150 MCG TAB PO (08:28)
[2019-04-19] MEDS: Montelukast 10 MG TAB PO (08:28)
--- NOTE | 2019-04-19 10:36 | CHAPLAIN ---
Candace was here about two weeks ago and said she is back to determine what is causing her UTI. She said she is feeling better. She has three daughters, one, Kiki lives with Candace and provides her care. Candace lives in [place], but prefers coming to [facility] for her care. One daughter visited on Friday, and she expects another may visit with granddaughters later today. I will continue to visit.
[2019-04-19] MEDS: Hydrocortisone 10 MG TAB 5 MG PO (12:11)
[2019-04-19] MEDS: levoFLOXacin 750 MG/150 ML BAG 100 MG IVPB (12:14)
[2019-04-19] MEDS: HYDROcodone 5/Acetaminophen 325 TAB PO ×2 (13:40→21:17)
--- NOTE | 2019-04-19 13:43 | W.NUTCONSULT ---
Date of service: 04/19/19 Time of Service: 13:43 Nutritional Consult ASSESSMENT: 59 year old female admitted with UTI. PMH: stage 4 breast cancer with mets, COPD, IDDM. Medicated with opiods for pain. Following Diabetic diet with adequate intake. BMI of 54 indicates morbid obesity. DM consult pending. Not at nutritional risk at this time. MONITORING AND EVALUATION: weight, po intake, labs Time Spent in Nutritional Counseling and Treatment: 0 time spent face to face
--- NOTE | 2019-04-19 14:23 | PT.INTREAT ---
Date of service: 04/19/19 Time of Service: 02:05 PT Notes Visit Reasons: Urinary tract infection Inpatient Physical Therapy Treatment Note [facility] Date: 04/19/2019 PRECAUTIONS: Fall. Standard. activity as tolerated. SUBJECTIVE: Patient reports significantly better being able to eat and sleep a lot better. She reports she has been going in and out of the bathroom on her own with the walker. She hopes to go back home as soon as she is cleared. B LE edema improving. States that her L knee feels better. OBJECTIVE: Central IV port in place. Morbidly obese. PAIN: Decreased distance covered compared to Friday due to discomfort on left knee with weight bearing. BED MOBILITY/TRANSFERS Sit-stand: SBA Stand-sit: SBA Bed-Chair: SBA Chair-bed: SBA GAIT Assistive Device: Bariatric FWW Weight bearing: FWB Assist: SBA Distance: 100 feet Deviation: Reciprocal step-to. Mild discomfort on L knee. THEREX: Patient tolerated seated LAQs, seated marches, and ankle pumps. ASSESSMENT: Patient is almost at baseline with her mobility level using the front-wheeled walker. She has her daughter as her caregiver for quite a while now. She has all equipment she needs at home. PLAN: Continue with PT POC as initially established. TREATMENT CODE/TIME: 45541 x 20 minutes beginning at 14:05 PM.
[2019-04-19 16:04] VITALS: BP 110/62; PULSE 66; RESP 18; TEMP 36.8; O2SAT 97
[2019-04-19] MEDS: fentaNYL 50 MCG PATCH TD (16:07)
[2019-04-19] MEDS: Patch Removal 1 EACH TP (16:08)
[2019-04-19] MEDS: Enoxaparin 30 MG/0.3 ML SYR SC (16:08)
--- NOTE | 2019-04-19 18:05 | PGE_ITS ---
Date of Service Date of service: 04/19/19 Time of Service: 17:20 Assessment and Plan Assessment and plan (1) Urinary tract infection: Status: Acute Assessment and plan: Causing sepsis/bacteremia; due to citrobacter, present on admission. Interestingly, sensitivities on urine and blood cultures are slightly discordant. The patient was changed to levofloxacin yesterday - officially on day 2. Repeat blood cultures are negative. Continue prophylactic oral vancomycin given h/o C.Diff. Will discuss length of antibiotics with ID. I expect the patient will be discharged home tomorrow on oral antibiotics. Qualifiers: Urinary tract infection type: site unspecified Hematuria presence: without hematuria Qualified Code(s): N39.0 - Urinary tract infection, site not specified (2) Weakness: Status: Resolved Assessment and plan: Multifactorial - due to UTI/sepsis, as well as likely effects of fentanyl and possibly adrenal insufficiency setting in. Resolved. Continue current dose of fentanyl, Transition stress dose steroids to PO. Continue PT. (3) Stage IV breast cancer in female: Status: Chronic Assessment and plan: Continue current tx. (4) Adrenal insufficiency: Status: Chronic Assessment and plan: Transition to PO hydrocortisone. (5) Obstructive sleep apnea: Status: Chronic Assessment and plan: Continue home O2. (6) Cancer related pain: Status: Chronic Assessment and plan: Would not change dose of fentanyl patch - pain is controlled, per patient. (7) SIERRA (acute kidney injury): Status: Acute Assessment and plan: Cr better. No renal pathology on the US. Will give 1 L of NS overnight. (8) COPD (chronic obstructive pulmonary disease): Status: Chronic Assessment and plan: Continue outpatient inhalers. Not in acute exacerbation. (9) Hypothyroidism: Status: Chronic Assessment and plan: continue current levothyroxine dose. 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 palliative care consult. Expect discharge home on oral abx tomorrow. Subjective Subjective Interval history since last seen: Ms Maynard states she is doing better today. She was able to ambulate 50 feet and transfer from bed to chair, chair to commode independently. She denies dizziness, chest pain, shortness of breath, nausea, vomiting. She feels she will be ready to go home tomorrow. Exam Narrative Exam Narrative: General: Very pleasant middle-aged female, laying comfortably in bed, looks more energetic, but slightly dry HEENT: EOMI, MMM Heart: RRR, no m/r/g Lungs: CTAB anteriorly Abdomen: soft, nontender, nondistended Extremities: chronic venous stasis dermatitis; no open wounds; trace edema BLE's, no c/c. Objective Objective Clinical Data: Abnormal lab results 04/19/19 04/19/19 Range/Units 06:14 06:14 WBC 3.49 L (4.4-10.8) k/cumm RBC 3.23 L (4.00-5.20) m/cumm Hgb 9.9 L (12.0-15.5) g/dL Hct 30.8 L (36.0-46.0) % MCV 95.4 H (80-95) fL RDW 16.1 H (11.7-14.6) % Carbon Dioxide 32.5 H (21.0-32.0) mmol/L Creatinine 1.26 H (0.55-1.02) mg/dL Glucose 128 H (74-106) mg/dL Calcium 8.3 L (8.5-10.1) mg/dL Vital Signs Temperature 36.8 C 04/19/19 16:04 Temperature Source Tympanic 04/19/19 16:04 Pulse 66 04/19/19 16:04 Pulse Rhythm Regular 04/19/19 15:25 Respiratory Rate 18 04/19/19 16:04 Respiratory Effort 04/19/19 15:25 Respiratory Depth Normal 04/19/19 15:25 Respiratory Pattern Normal 04/19/19 15:25 Blood Pressure 110/62 04/19/19 16:04 Pulse Oximetry 97 04/19/19 16:04 Oxygen Delivery Method Room Air 04/19/19 16:04 Oxygen Flow Rate 0 04/19/19 16:04 Pain Level 0 04/19/19 16:04 Intake & Output 04/18/19 04/19/19 04/19/19 23:59 11:59 23:59 Intake Total 640 / 890 240 / 240 Output Total 400 / 400 Balance 640 / 590 -160 / -160 Weight 148.8 kg Intake: IV 150 / 150 Oral 490 / 740 240 / 240 Output: Urine 400 / 400 Other: Urine Color Yellow Yellow Urine Appearance Clear Clear Clear Urine Odor Normal Stool Size Copious Stool Characteristics Formed Brown Voiding Methods Incontinent Incontinent Laboratory Results WBC 3.49 k/cumm (4.4-10.8) L 04/19/19 06:14 RBC 3.23 m/cumm (4.00-5.20) L 04/19/19 06:14 Hgb 9.9 g/dL (12.0-15.5) L 04/19/19 06:14 Hct 30.8 % (36.0-46.0) L 04/19/19 06:14 MCV 95.4 fL (80-95) H 04/19/19 06:14 MCH 30.7 pg (27.0-33.0) 04/19/19 06:14 MCHC 32.1 g/dL (32.0-36.0) 04/19/19 06:14 RDW 16.1 % (11.7-14.6) H 04/19/19 06:14 Plt Count 211 x1000/uL (130-400) 04/19/19 06:14 MPV 9.0 fL (8.0-11.0) 04/19/19 06:14 Immature Gran % 0.3 % 04/19/19 06:14 Neutrophils % 46.7 04/19/19 06:14 Lymphocytes % 44.4 04/19/19 06:14 Monocytes % 6.6 04/19/19 06:14 Eosinophils % 1.7 04/19/19 06:14 Basophils % 0.3 04/19/19 06:14 Absolute Neutrophils 1.63 k/cumm (1.2-6.7) 04/19/19 06:14 Absolute Lymphocytes 1.55 k/cumm (1.2-3.4) 04/19/19 06:14 Absolute Monocytes 0.23 k/cumm (0.11-0.7) 04/19/19 06:14 Absolute Eosinophils 0.06 k/cumm (0.0-0.7) 04/19/19 06:14 Absolute Basophils 0.01 k/cumm (0.0-0.2) 04/19/19 06:14 Differential Comment Rbc morph reviewed 04/17/19 06:35 RBC Morphology See below 04/17/19 06:35 Polychromasia Present 04/17/19 06:35 Hypochromasia 1+ 04/17/19 06:35 Basophilic Stippling Present 04/17/19 06:35 Anisocytosis 1+ 04/17/19 06:35 ABG Sample Site Cancelled 04/16/19 Unknown ABG pH Cancelled 04/16/19 Unknown ABG pCO2 Cancelled 04/16/19 Unknown ABG pO2 Cancelled 04/16/19 Unknown ABG HCO3 Cancelled 04/16/19 Unknown ABG Total CO2 Cancelled 04/16/19 Unknown ABG O2 Saturation Cancelled 04/16/19 Unknown ABG Base Excess Cancelled 04/16/19 Unknown Oxygen Liter Flow Cancelled 04/16/19 Unknown FiO2 Cancelled 04/16/19 Unknown Sodium 141 mmol/L (136-145) 04/19/19 06:14 Potassium 4.1 mmol/L (3.5-5.1) 04/19/19 06:14 Chloride 102 mmol/L (98-107) 04/19/19 06:14 Carbon Dioxide 32.5 mmol/L (21.0-32.0) H 04/19/19 06:14 Anion Gap 6.5 mmol/L (3-11) 04/19/19 06:14 BUN 17 mg/dL (7-18) 04/19/19 06:14 Creatinine 1.26 mg/dL (0.55-1.02) H 04/19/19 06:14 Estimated GFR/1.73 m2 43.32 (mL/min/1.73m2) 04/19/19 06:14 Glucose 128 mg/dL (74-106) H 04/19/19 06:14 Lactate 0.7 mmol/L (0.6-1.4) 04/17/19 06:35 Calcium 8.3 mg/dL (8.5-10.1) L 04/19/19 06:14 Magnesium 2.0 mg/dL (1.8-2.4) 04/19/19 06:14 Total Bilirubin 0.7 mg/dL (0.2-1.0) 04/16/19 09:07 AST 17 U/L (15-37) 04/16/19 09:07 ALT 14 U/L (14-59) 04/16/19 09:07 Alkaline Phosphatase 119 U/L (46-116) H 04/16/19 09:07 Troponin I < 0.05 ng/Ml (<0.06) 04/16/19 09:07 NT-Pro-B Natriuret Pep 79 pg/mL (<300) 04/16/19 09:07 Total Protein 8.6 g/dL (6.4-8.2) H 04/16/19 09:07 Albumin 3.4 g/dL (3.4-5.0) 04/16/19 09:07 TSH 0.27 uIU/mL (0.36-3.74) L 04/16/19 09:07 Free T4 0.99 ng/dL (0.76-1.46) 04/16/19 09:07 Urine Color Yellow (Yellow) 04/16/19 11:03 Urine Clarity Cloudy (Clear) 04/16/19 11:03 Urine pH 6.0 (5-8) 04/16/19 11:03 Ur Specific [place] 1.010 (1.005-1.025) 04/16/19 11:03 Urine Protein 30 mg/dL (Negative) H 04/16/19 11:03 Urine Ketones Negative mg/dL (Negative) 04/16/19 11:03 Urine Blood Small (Negative) H 04/16/19 11:03 Urine Nitrite Positive (Negative) H 04/16/19 11:03 Urine Bilirubin Negative (Negative) 04/16/19 11:03 Urine Urobilinogen 0.2 EU/dL (Up TO 0.2) 04/16/19 11:03 Ur Leukocyte Esterase Large (Negative) H 04/16/19 11:03 Urine RBC HPF (0-2) 04/16/19 11:03 Urine WBC >50 HPF (0-5) H 04/16/19 11:03 Ur Epithelial Cells Not Applicable 04/16/19 11:03 Urine Crystals Not Applicable 04/16/19 11:03 Urine Bacteria Many HPF (Negative) 04/16/19 11:03 Urine Mucus Not Applicable 04/16/19 11:03 Ur Culture Indicated? Yes 04/16/19 11:03 Urine Glucose Negative mg/dL (Negative) 04/16/19 11:03
--- NOTE | 2019-04-19 18:46 | PDOC.CMPRO ---
- If Service Date Differs Date of service: 04/19/19 Time of Service: 18:46 Care Management Progress Note Care Management Progress Note S/O: Candace was sitting up in bed when CM met with her. Her daughter and grandchildren were visiting at the time. Candace stated that she is feeling better and hopes to be discharged within the next couple of days. She shared that things had been going pretty well since her discharge before she got sick again. A: Candace is a 59 year old female admitted to [facility] on 04/16/19 with a UTI. P: Anticipate Candace will discharge home with resumption of home health services. She will transport via private vehicle with her daughter. CM will continue to provide support to patient, family and discharge planning needs.
[2019-04-19 20:00] VITALS: BP 115/81; PULSE 73; RESP 18; TEMP 35.9; O2SAT 94
[2019-04-19 20:02] VITALS: O2SAT 94
[2019-04-19] MEDS: Nystatin POWDER 60 GM JAR TP (20:10)
[2019-04-19] MEDS: Oseltamivir 75 MG CAP PO (20:11)
[2019-04-19 20:30] VITALS: O2SAT 94
[2019-04-19] MEDS: Normal Saline 1,000 ML 75 ML IV (20:40)
[2019-04-19] MEDS: Atorvastatin 20 MG TAB 40 MG PO (21:17)
[2019-04-19] MEDS: DULoxetine 30 MG CAP 60 MG PO (21:17)
[2019-04-20 00:25] VITALS: BP 116/54; PULSE 67; RESP 18; TEMP 36.2; O2SAT 91
[2019-04-20] MEDS: Vancomycin 125 MG CAP PO ×2 (05:58→11:58)
[2019-04-20 07:27] VITALS: BP 91/58; PULSE 66; RESP 17; TEMP 37; O2SAT 95
[2019-04-20 07:34] LABS: Anion Gap 8.6 mmol/L (3-11); BUN 20 mg/dL (7-18); CO2 30.4 mmol/L (21.0-32.0); CREATININE 1.42 mg/dL (0.55-1.02); Calcium 8.7 mg/dL (8.5-10.1); Chloride 102 mmol/L (98-107); Estimated GFR 37.73 (mL/min/1.73m2); Glucose 106 mg/dL (74-106); Magnesium 2.1 mg/dL (1.8-2.4); Potassium 3.8 mmol/L (3.5-5.1); Sodium 141 mmol/L (136-145)
[2019-04-20] MEDS: HYDROcodone 5/Acetaminophen 325 TAB PO (08:06)
[2019-04-20] MEDS: Budesonide/Formoterol 160/4.5 6 GM 60 PUFF INH IH (08:10)
[2019-04-20] MEDS: Tiotropium Bromide-Respimat 10 PUFF INH IH (08:11)
[2019-04-20] MEDS: Nystatin POWDER 60 GM JAR TP (08:45)
[2019-04-20] MEDS: Pregabalin 100 MG CAP 200 MG PO ×2 (08:45→14:13)
[2019-04-20] MEDS: Levothyroxine 150 MCG TAB PO (08:45)
[2019-04-20] MEDS: Montelukast 10 MG TAB PO (08:46)
[2019-04-20] MEDS: Letrozole 2.5 MG TAB PO (08:46)
[2019-04-20] MEDS: Hydrocortisone 10 MG TAB 20 MG PO (08:47)
[2019-04-20] MEDS: carBAMazepine 200 MG TAB PO (08:48)
[2019-04-20] MEDS: Oseltamivir 75 MG CAP PO (08:48)
[2019-04-20] MEDS: Aspirin E.C. 81 MG TABEC PO (08:48)
[2019-04-20] MEDS: Cyanocobalamin 500 MCG TAB 1000 MCG PO (08:48)
[2019-04-20] MEDS: Folic Acid 1 MG TAB PO (08:48)
[2019-04-20] MEDS: Cetirizine 10 MG TAB PO (08:48)
[2019-04-20 09:27] VITALS: O2SAT 95
--- NOTE | 2019-04-20 11:28 | PTTR_ITS ---
Date of service: 04/20/19 Time of Service: 11:28 PT Notes Visit Reasons: Urinary tract infection 04/20/2019 SUBJECTIVE: Candace stating she is feeling quite good. She thinks she is going to be discharged home today. OBJECTIVE: Pt seated in her recliner. Agreeable to PT treatment. TRANSFERS Sit to stand: S Stand to sit: S GAIT Device: Bariatric walker Weight bearing: Full Assist: S Distance: 100' Deviation: Step to pattern THEREX: Seated LAQ, march and ankle pumps x 20 each. ASSESSMENT: Pt mobilizing well with PT. She feels she is back to her baseline level of mobility. She demonstrates good safety awareness with her transfers and gait. PLAN: Continue per POC. Treatment time: 20 minutes [id number] Adrianne Mera, CENTER MACHINE SET UP OPERATOR
[2019-04-20 11:41] VITALS: BP 96/67; PULSE 68; RESP 16; TEMP 36.4; O2SAT 94
[2019-04-20] MEDS: levoFLOXacin 750 MG/150 ML BAG 100 MG IVPB (11:58)
[2019-04-20] MEDS: Hydrocortisone 10 MG TAB 5 MG PO (11:58)
--- NOTE | 2019-04-20 12:37 | W.PM.DS.N ---
Date of service: 04/20/19 Time of Service: 13:47 DS: Diagnosis Discharge Diagnosis (1) Urinary tract infection: Status: Acute Asessment and Plan: Due to citrobacter, present on admission (2) Bacteremia: Status: Acute Asessment and Plan: Due to citrobacter, present on admission (3) Weakness: Status: Resolved (4) Stage IV breast cancer in female: Status: Chronic (5) Adrenal insufficiency: Status: Chronic (6) Obstructive sleep apnea: Status: Chronic Asessment and Plan: on nocturnal oxygen (7) Cancer related pain: Status: Chronic (8) SIERRA (acute kidney injury): Status: Acute (9) COPD (chronic obstructive pulmonary disease): Status: Chronic Asessment and Plan: not in acute exacerbation (10) Hypothyroidism: Status: Chronic (11) Diabetes mellitus: Status: Chronic (12) Toxic metabolic encephalopathy: Status: Resolved Discharge Plan Disposition Patient Disposition: HOME W/HOME HEALTH SERVICE Condition: Improving Discharge Details Chief Complaint: GenMedical Clinical Impression: Urinary tract infection Reason For Visit: UTI Admit Date/Time: 04/16/19 10:38 Admit Provider: Vince Ta Attending Provider: Vince Ta Primary Care Provider: Jan Coleman [facility]: Ms Maynard is a 59 year old female with PMHx of Stage IV breast ca, on oral chemo, as well as chronic adrenal insufficiency on hydrocortisone, prior h/o recurrent UTIs and COPD, who was admitted to [facility] hospitalist service on 04/16/2019 with sepsis due to citrobacter UTI with bacteremia, acute on chronic adrenal insufficiency, and toxic metabolic encephalopathy due to UTI. She also had evidence of SIERRA, likely in setting of sepsis, but with likely contribution by her oral chemotherapy. She was initiated on empiric IV ceftriaxone, to which she had been previously sensitive. Unfortunately, her urine and blood cultures grew Citrobacter, which this time was resistant to ceftriaxone, so she had to be transitioned to levofloxacin. Repeat blood cultures done on 04/18/2019 were negative. Given the patient's history of C. Diff, the duration of antibiotics for this patient will be 10 days since the first negative blood culture, i.e. 1 week from the day of discharge. Meanwhile, to prevent recurrence of C.Diff, the patient will continue on prophylactic oral vancomycin for 4 more days after finishing levofloxacin. She was transitioned from stress dose steroids to her regular dose of hydrocortisone. Her insulin requirement is not as high at the time of this hospitalization - her insulin doses had been decreased as below. She does not have evidence of acute adrenal insufficiency at this time - her BP is 104/56, sodium and glucoses are normal, potassium is normal, and she is not hypothermic. Her SIERRA improved on this admission, but ultimately will need to be monitored as outpatient with oral chemotherapy on hold. The patient is being ordered home health nursing for a blood draw (BMP) on 04/22/2019 - results to PCP. She is also being ordered home health PT. Finally, because the patient was exposed to influenza on her hospitalization here, she is getting discharged home with a balance of 14 days of prophylactic course of tamiflu (total of 12 doses remain). She is medically stable for discharge home today. Her discharge summary and process took 1 hour to complete. Home Meds and New Rx's Prescriptions: New fentanyl [Duragesic] 50 mcg/hr Patch 72 Hour 50 mcg transdermal Q72H Qty: 2 RF: 0 oseltamivir [Tamiflu] 75 mg Capsule 75 mg PO DAILY Qty: 12 RF: 0 levofloxacin 750 mg tablet 750 mg PO DAILY Qty: 11 RF: 0 Continued pregabalin [Lyrica] 200 MG capsule 200 mg PO TID RF: 0 montelukast [Singulair] 10 MG tablet 10 mg PO DAILY RF: 0 cetirizine [Zyrtec] 10 MG tablet 10 mg PO DAILY RF: 0 ferrous sulfate 325 MG tablet 325 mg PO TID RF: 0 carbamazepine 200 MG tablet 200 mg PO BID RF: 0 atorvastatin [Lipitor] 20 MG tablet 40 mg PO HS RF: 0 cyanocobalamin (vitamin B-12) [Vitamin B-12] 1,000 MCG tablet 1,000 mcg PO DAILY RF: 0 aspirin [Aspir-81] 81 MG tablet,delayed release (DR/EC) 81 mg PO DAILY RF: 0 folic acid 1 MG tablet 1 mg PO DAILY RF: 0 duloxetine [Cymbalta] 60 MG capsule,delayed release(DR/EC) 60 mg PO HS RF: 0 Spiriva Respimat 4 GM mist 1 puff Inhalation DAILY RF: 0 budesonide-formoterol [Symbicort] 10.2 GM HFA aerosol inhaler 2 puff Inhalation BID RF: 0 ondansetron HCl [Zofran] 8 MG tablet 8 mg PO TID PRNRF: 0 hydrocortisone 5 mg Tablet 5 mg PO QNOON RF: 0 levothyroxine 150 mcg Tablet 150 mcg PO DAILY RF: 0 hydrocortisone 10 mg Tablet 20 mg PO QAM RF: 0 Trulicity 1.5 mg/0.5 mL Pen Injector 1.5 mg SUBCUT QWEEK RF: 0 benzonatate 200 mg Capsule 200 mg PO TID PRN (Reason: cough) Qty: 15 RF: 0 guaifenesin [Mucinex] 600 mg Tablet Extended Release 12hr 600 mg PO BID Qty: 10 RF: 0 Cholestyramine Light 4 gram Powder 4 g PO BID PRNRF: 0 loratadine 10 mg Tablet 10 mg PO DAILY RF: 0 duloxetine [Cymbalta] 60 mg Capsule,Delayed Release(Dr/Ec) 60 mg PO HS RF: 0 letrozole 2.5 mg Tablet 2.5 mg PO DAILY RF: 0 Prevalite 4 gram Powder In Packet 4 g PO BID@1000,2000 PRN (Reason: prn diarrhea) Qty: 10 RF: 0 ranitidine HCl 300 mg capsule 300 mg PO QHS Qty: 30 RF: 0 Lactobacillus acidophilus Capsule 1,000 mmu cells PO DAILY Qty: 30 RF: 0 hydrocodone-acetaminophen 5-325 mg Tablet 2 tab PO Q4H PRN PRNQty: 5 RF: 0 Changed vancomycin 125 mg Capsule 125 mg PO Q12H Qty: 30 RF: 0 Humulin R U-500 (Conc) Kwikpen 500 unit/mL (3 mL) Insulin Pen 30 unit SUBCUT QNOON Qty: 0 RF: 0 Humulin R U-500 (Conc) Kwikpen 500 unit/mL (3 mL) Insulin Pen 70 unit SUBCUT QAM Qty: 0 RF: 0 Humulin R U-500 (Conc) Kwikpen 500 unit/mL (3 mL) Insulin Pen 30 unit SUBCUT QPM Qty: 0 RF: 0 Discontinued Verzenio 150 mg Tablet 150 mg PO BID Qty: 0 RF: 0 fentanyl [Duragesic] 25 mcg/hr Patch 72 Hour 25 mcg transdermal Q72H Qty: 3 RF: 0 cefpodoxime 200 mg tablet 400 mg PO BID Qty: 30 RF: 0 Discharge Instructions Instructions: Levofloxacin (By mouth), Urinary Tract Infection in Women (DC), Bacteremia (DC) Additional Instructions: Return to the hospital with any fever, bleeding, chest pain, shortness of breath, changes to mental status. Finish your antibiotics as prescribed. Do not take your oral chemotherapy until cleared by your oncologist. Care Plan Goals: Home with home health nursing/PT. Home health nursing to check BMP on 04/22/2019 - results to PCP. Stand Alone Forms: Nursing Discharge Form Referrals: Jan Coleman [Primary Care Provider] - Activity:: Activity as Tolerated Equipment/Supplies:: No Equipment Needed Diet:: Normal Diet Discharge Orders Discharge Orders: Discharge Order (Routine); Ordered 04/20/19 Ordered By: Sheyla Reno DS: Summary Status at Discharge Functional status at discharge: uses cane/walker Overall status at discharge: patient is back to baseline Mental Status: mental status grossly normal Speech and Movement: speech and movement normal Mood: congruent mood Affect: normal affect Exam Narrative Exam Narrative: General: Very pleasant middle-aged female, sitting in a chair, appears to be doing well HEENT: EOMI, MMM Heart: RRR, no m/r/g Lungs: CTAB anteriorly Abdomen: soft, nontender, nondistended Extremities: chronic venous stasis dermatitis; no open wounds; trace edema BLE's, no c/c. Psych Mental Status: mental status grossly normal Speech and Movement: speech and movement normal Mood: congruent mood Affect: normal affect DS: Data Vitals/I&O Vitals and I&O: Vital Signs Temperature 36.4 C L 04/20/19 11:41 Temperature Source Tympanic 04/20/19 11:41 Pulse 68 04/20/19 11:41 Pulse Rhythm Regular 04/20/19 07:37 Respiratory Rate 16 04/20/19 11:41 Respiratory Effort Non-Labored 04/20/19 07:37 Respiratory Depth Normal 04/20/19 07:37 Respiratory Pattern Normal 04/20/19 07:37 Blood Pressure 96/67 L 04/20/19 11:41 Pulse Oximetry 94 L 04/20/19 11:41 Oxygen Delivery Method Room Air 04/20/19 11:41 Oxygen Flow Rate 0 04/20/19 11:41 Pain Level 0 04/20/19 11:41 Comment 04/20/19 07:27 Intake & Output 04/19/19 04/20/19 04/20/19 23:59 11:59 23:59 Intake Total 880 / 1120 1177.5 / 1177.5 Output Total 300 / 300 Balance 880 / 720 877.5 / 877.5 Weight 149.2 kg Intake: IV 150 / 150 937.5 / 937.5 Oral 730 / 970 240 / 240 Output: Urine 300 / 300 Other: Urine Color Pale Yellow Urine Appearance Clear Clear Urine Odor None Stool Occult Blood Negative Stool Size Copious Stool Characteristics Soft Liquid Voiding Methods Bedside Commode Data Completed and Pending Completed studies during hospitalization [Text1]: CXR 04/16/2019: No acute pulmonary process. US Renal 04/19/2019: 1. The kidneys are grossly unremarkable. 2. Urinary bladder was not visualized during this examination. Labs on day of discharge: Labs from last 24 hours 04/20/19 06:54 Sodium 141 Potassium 3.8 Chloride 102 Carbon Dioxide 30.4 Anion Gap 8.6 BUN 20 H Creatinine 1.42 H Estimated GFR/1.73 m2 37.73 Glucose 106 Calcium 8.7 Magnesium 2.1 Preliminary micro results at discharge 04/16/19 09:07 Blood Culture - Preliminary Blood NO GROWTH 96 HOURS 04/16/19 10:10 Blood Culture - Preliminary Blood Citrobacter Freundii 04/18/19 10:55 Blood Culture - Preliminary Blood NO GROWTH 24 HOURS 04/18/19 10:45 Blood Culture - Preliminary Blood NO GROWTH 24 HOURS [facility] Medical History C. difficile diarrhea (Acute) Cancer related pain (Chronic) much improved with fentanyl patch Carpal tunnel syndrome (Acute) Chronic adrenal insufficiency (Acute) Chronic pain (Chronic) Chronic respiratory failure with hypoxia (Chronic) Chronic venous stasis dermatitis (Chronic) COPD (chronic obstructive pulmonary disease) (Chronic) On nocturnal oxygen - 2L prn Depression (Chronic) Diabetes mellitus (Chronic) Insulin dependent Diverticulosis (Acute) Dyslipidemia (Chronic) Goals of care, counseling/discussion (Acute) History of breast cancer (Chronic) metastatic, with lymphatic spread and bone mets Hyperlipidemia (Acute) Hypopituitarism (Chronic) Hypothyroidism (Chronic) Influenza B (Acute) Iron deficiency anemia (Acute) Metastatic breast cancer (Chronic) Obesity (Chronic) Obstructive sleep apnea (Chronic) per [facility] records Palliative care patient (Chronic) Pneumonia (Acute) POLST (Physician Orders for Life-Sustaining Treatment) (Acute) done 03/26/19; sent to [facility], [facility], original to her Restless leg syndrome (Acute) Spinal stenosis (Acute) Stage IV breast cancer in female (Chronic) Uncontrolled pain (Resolved) Surgical History H/O bilateral mastectomy (Acute) H/O colonoscopy with polypectomy (Acute) History of carpal tunnel release of both wrists (Acute) Port-A-Cath in place (Acute) Status post transsphenoidal pituitary resection (Acute) Family History Father , age 83 from complications of diabetes Prostate cancer Diabetes Mother , age 79 from complications of Crohn's disease and colitis Crohn's disease Colitis Daughter No problems noted. Daughter No problems noted. Brother No problems noted. Sister Diabetes Obesity Sister No problems noted. Sister No problems noted. Sister No problems noted. Social History Smoking/Tobacco Use Status: Former Tobacco Use Alcohol Intake: never Substance use type: does not use Caregiver/Support person: Yes Household members: children Number of Children: 2 Communication Needs: Hard of Hearing and Corrective Lenses Education Level: middle school Do you need help understanding health information?: Always current occupation: on disability What is your relationship status?: How often do you talk on the phone with friends or family?: once per week How often do you get together with friends or relatives?: three or more times per week Panel score (0-1 are the most socially isolated patients): 1 What type of physical activity do you participate in: none, sedentary lifestyle, wheelchair-bound and additional Details: needs a new wheelchair, cannot walk far, just a few steps Special pedro pablo needs: No Do you feel safe at home: Yes Do you feel safe in your relationship?: Yes Additional Social history: , with 2 children. She is not working and on disability. Has a history of tobacco, quit in 1992. Reports rare use of alcohol only. Lives with daughter. Uses a walker to ambulate. Hard to do recently, depending more on WC. In a lot of pain. Recent scans show progression of breast cancer.
--- NOTE | 2019-04-20 14:29 | PDOC.HHF2F_ITS ---
Home Health Certification Home Health Certification: 1. Encounter Date and Reason I certify that LITO GONZALEZ was seen by Sheyla Reno on 04/20/19 and that I had a [id number] encounter with this patient that meets the physician face to face encounter requirements. 2. Clinical Findings Supporting Skilled Need and Homebound Status I certify that home health services are medically necessary, include either intermittent long term and/or physical/speech therapy, and that this patient is homebound in that absences from the home require considerable and taxing effort and are infrequent or of short duration, or are attributable to the need to receive medical care. [X] (a) Attached documentation from encounter provides clinical findings supporting skilled need and homebound status (including what assistance patient requires to leave the home). The encounter with the patient was in whole, or in part, for the following medical condition, which is the primary reason for home health care: UTI Mcc: UTI/sepsis; adjustments to insulin doses. SIERRA - need BMP checked on 04/22/2019 - results to PCP Physical Therapy: eval and treat Homebound: unable to leave home without assistance 3. Certification and Authentication I certify that I composed the above information based on my clinical judgement relating to this patient's medical condition and, if applicable, clinical findings communicated to me by the NPP or inpatient physician who performed the Home Health Referral. All further orders will be obtained through __Jan Nicholas her (Community Based Physician - PCP)
[2019-04-20] MEDS: Normal Saline Flush 10 ML SYR IVP (15:49)
[2019-04-20] MEDS: Heparin 500 UNITS/5 ML SYRINGE IVP (15:50)
--- NOTE | 2019-04-20 18:49 | PDOC.CMDIS ---
- If Service Date Differs Date of service: 04/20/19 Time of Service: 18:49 LACE Index Scoring Tool - Questions: Length of Stay (in days): 4 - 6 Acuity (Admit via E.D.?): Yes Comorbidities: Diabetes w/o Complication, Chronic Pulmonary Disease, Metastatic Solid Tumor E.D. Visits: 5 - Answers: Total Score: 16 Risk of Readmission: High Risk Care Management Discharge Reason for Hospitalization: UTI Discharge Plan: Candace will be discharged home with new orders for PT and nursing. She will follow up with her PCP, Oncologist and discharge plan of care. Candace will transport with her daughter via private vehicle. Patient/Family Education Needs: Discharge plan, limitations, follow up plan and Ask Me Three. Services Needed at Discharge: Home Health Care Services
--- NOTE | 2019-04-21 10:08 | INDS_ITS ---
Date of service: 04/21/19 Time of Service: 10:08 PT Notes Visit Reasons: Urinary tract infection Physical Therapy Inpatient Discharge Summary Date: 04/21/2019 Date of service: 04/17/2019 through 03/04/20172019 This is a clinical summary of care provided on the duration of dates listed above. No charge was made in the completion of this documentation. Referring Doctor: Sheyla Reno MD PT Orders: PT CONSULT: Limited ability Precautions: Fall. Standard. Activity as tolerated. Patient Profile/Admitting Diagnosis: Patient is a 59-year-old female with past medical history significant for stage IV breast carcinoma with metastases to the lymphatic system and bones, and renal insufficiency, RAKAN, and cancer related pain who presented to the ED on 04/16/2018 with chief complaints of fatigue and shortness of breath with exertion. Patient is diagnosed with urinary tract infection and acute kidney injury, acute kidney injury, and weakness with referral to skilled physical therapy services to address impairments and strength and activity tolerance. PMHX: Medical History C. difficile diarrhea (Acute) Cancer related pain (Chronic) much improved with fentanyl patch Carpal tunnel syndrome (Acute) Chronic adrenal insufficiency (Acute) Chronic pain (Chronic) Chronic respiratory failure with hypoxia (Chronic) Chronic venous stasis dermatitis (Chronic) COPD (chronic obstructive pulmonary disease) (Chronic) On nocturnal oxygen - 2L prn Depression (Chronic) Diabetes mellitus (Chronic) Insulin dependent Diverticulosis (Acute) Dyslipidemia (Chronic) Goals of care, counseling/discussion (Acute) History of breast cancer (Chronic) metastatic, with lymphatic spread and bone mets Hyperlipidemia (Acute) Hypopituitarism (Chronic) Hypothyroidism (Chronic) Influenza B (Acute) Iron deficiency anemia (Acute) Metastatic breast cancer (Chronic) Obesity (Chronic) Obstructive sleep apnea (Chronic) per [facility] records Palliative care patient (Chronic) Pneumonia (Acute) POLST (Physician Orders for Life-Sustaining Treatment) (Acute) done 03/26/19; sent to [facility], [facility], original to her Restless leg syndrome (Acute) Spinal stenosis (Acute) Stage IV breast cancer in female (Chronic) Uncontrolled pain (Resolved) Surgical History H/O bilateral mastectomy (Acute) H/O colonoscopy with polypectomy (Acute) History of carpal tunnel release of both wrists (Acute) Port-A-Cath in place (Acute) Status post transsphenoidal pituitary resection (Acute) Social History/Home Situation: Candace lives with her daughter in [place], [place] in a two-story house with a ramp to enter with rails on both sides. Patient has stairs to the second floor of the house but has everything she needs on the first floor. She is disabled. She has 2 daughters locally. She receives choices for care highest needs, and her daughter Kiki is her primary provider for 12 years now. [facility] provides assistance with bathing and does meal preapration and assistance with lower body dressing. She was independent with front-wheeled walker for in-house ambulation and uses the 4-wheeled walker for outdoor ambulation. She has to walk about 80-90 feet to get to her car. She is dependent on her daughter for transportation to and from appointments. Daughter also provides assistance with bathing patient's back due to body habitus. Equipment Owned/DME: bariatric FWW, bariatric hospital bed, bariatric recliner, bariatric front wheeled walker Subjective: NT Objective: General Observation: NT Mental Status: NT Pain: NT ROM: Right Upper Extremity: Shoulder flexion 90-100 degrees. Elbow flexion WFL. Hands/wrist and fingers are WFL. Left Upper Extremity: Shoulder flexion 90-100 degrees. Elbow flexion WFL. Hands/wrist and fingers are WFL. Right Lower Extremity: Patient is able to bend hip to about 20 degrees beyond 90 while seated at edge of bed. Knee flexion WFL. Dorsiflexion/plantarflexion WFL. Left Lower Extremity: Patient is able to bend hip to about 10 degrees beyond 90 while seated at edge of bed. Knee flexion WFL. Dorsiflexion/plantarflexion WFL. Strength: Right Upper Extremity: Shoulder flexion 3-/5. Elbow flexion 4/5. Film Splicer strong and functional Left Upper Extremity: Shoulder flexion 3-/5. Elbow flexion 4/5. Film Splicer strong and functional. Right Lower Extremity: Hip flexion 3-/5. Hip extension 3/5. Knee flexion 4/5. Knee extension 4/5. Ankle dorsiflexion/plantarflexion 4/5. Left Lower Extremity: Hip flexion 3-/5. Hip extension 3/5. Knee flexion 4-/5. Knee extension 4-/5. Ankle dorsiflexion/plantarflexion 4/5. Bed Mobility/Transfers: Sit to stand: Supervision Stand to sit: Supervision Bed to chair: Supervision Chair to bed: Supervision BA Gait: Patient tolerated level surface ambulation of 100 feet using bariatric front wheeled walker with CGA and wheelchair follow of PT. Decreased julia. Reciprocal step-to gait pattern. Balance: Static Sitting: Normal Dynamic Sitting: Good Static Standing: Fair Dynamic Standing: Fair Assessment: Patient is a 59-year-old female with past medical history significant for stage IV breast carcinoma with metastases to the lymphatic system and bones, and renal insufficiency, RAKAN, and cancer related pain who presented to the ED on 04/16/2018 with chief complaints of fatigue and shortness of breath with exertion. Patient is diagnosed with urinary tract infection, acute kidney injury, and weakness with referral to skilled physical therapy services to address impairments and strength and activity tolerance. Her daughter is her 23/09 caregiver. Her prognosis for regaining prior level of function is fair to good. Patient does have chronic functional mobility deficits and has a daughter for her longtime caregiver. Goals: Goals X1 week 1. Supine-Sit independent MET 2. Sit-Supine independent MET 3. Sit-Stand independent NOT MET 4. Stand-Sit independent NOT MET 5. Bed-Chair supervision NOT MET 6. Chair-Bed supervision NOT MET 7. Gait indoor and outdoor ambulation using FWW for at least 200 feet NOT MET 8. Independent with home exercise program NOT MET 9. Balance good NOT MET DISCHARGE RECOMMENDATIONS: Patient will benefit from home health PT services in order to progress mobility level using four-wheeled walker, assess home safety, identify additional equipment needs, and cotninue with a functional maintenance program that will increase ability of patient to remain at home with daughter. TREATMENT CODE/TIME: NC. Thank you very much for this referral. Allie Miguel PT, DPT, CLT [facility] Inpatient PT at [place], [place]
== END 2019-04-20 16:07 | disposition home health service (06) | DRG 871 ==
LOC: ER 09:45 → MS 11:49
PROVIDERS: Admitting Provider Family Medicine; Emergency Provider Physician Assistant; PCP Family Medicine; Visit Provider Internal Medicine
DX: A41.89 Other specified sepsis (principal); G92 Toxic encephalopathy; N39.0 Urinary tract infection, site not specified; Z16.23 Resistance to quinolones and fluoroquinolones; E27.49 Other adrenocortical insufficiency; N17.9 Acute kidney failure, unspecified; Z68.43 Body mass index [BMI] 50.0-59.9, adult; E23.0 Hypopituitarism; Z16.19 Resistance to other specified beta lactam antibiotics; Z87.440 Personal history of urinary (tract) infections; J44.9 Chronic obstructive pulmonary disease, unspecified; B96.89 Other specified bacterial agents as the cause of diseases classified elsewhere; E86.0 Dehydration; C50.919 Malignant neoplasm of unspecified site of unspecified female breast; Z79.899 Other long term (current) drug therapy; G47.33 Obstructive sleep apnea (adult) (pediatric); G89.3 Neoplasm related pain (acute) (chronic); E03.9 Hypothyroidism, unspecified; E11.22 Type 2 diabetes mellitus with diabetic chronic kidney disease; N18.3 Chronic kidney disease, stage 3 (moderate); Z79.4 Long term (current) use of insulin; Z20.828 Contact with and (suspected) exposure to other viral communicable diseases; Z79.52 Long term (current) use of systemic steroids; Z86.19 Personal history of other infectious and parasitic diseases; Z87.19 Personal history of other diseases of the digestive system; R53.1 Weakness; E66.9 Obesity, unspecified; Z79.2 Long term (current) use of antibiotics; Z66 Do not resuscitate
CPT/HCPCS: 36415; 76770; 80048; 80053; 87040; 87077; 93005; 94640; 96361; 96374; 97162; 97530; 99223; 99232; 99239; 99285; 71046; 81003; 81015; 83605; 83735; 83880; 84439; 84443; 84484; 85025; 87086; 87186; 93010; J0696; J1650; J1720; J1956; J3490

== ENCOUNTER 2019-05-06 10:15 | Inpatient (IN) | payer MEDICARE, MEDICAID, SELFPAY ==
[2019-05-06] VITALS (83 sets, daily range): BP systolic 73–141; BP diastolic 46–81; PULSE 88–104; RESP 20–22; TEMP 36–38.2; O2SAT 88–100
[2019-05-06 11:56] LABS: Abs Immature Grans 0.01 k/cumm (0.0-0.09); Absolute Basophil Count 0.01 k/cumm (0.0-0.2); Absolute Eosinophil Count 0.04 k/cumm (0.0-0.7); Absolute Lymphocyte Count 0.91 k/cumm (1.2-3.4); Absolute Neutrophil Count 3.83 k/cumm (1.2-6.7); Basophils % 0.2; Eosinophils % 0.8; HCT 30.4 % (36.0-46.0); HGB 9.8 g/dL (12.0-15.5); Immature Grans % 0.2 %; Lymphocytes % 17.5; Mean Corp. HGB Concentration 32.2 g/dL (32.0-36.0); Mean Platelet Volume 8.9 fL (8.0-11.0); Monocytes % 7.7; Neutrophils % 73.6; Platelet Count 230 x1000/uL (130-400); RBC 3.27 m/cumm (4.00-5.20); RBC Distribution Width 15.7 % (11.7-14.6)
[2019-05-06 12:22] LABS: ALT 13 U/L (14-59); AST 21 U/L (15-37); Albumin 2.8 g/dL (3.4-5.0); Alkaline Phosphatase 130 U/L (46-116); Anion Gap 7.4 mmol/L (3-11); BUN 15 mg/dL (7-18); Bilirubin, Total 0.3 mg/dL (0.2-1.0); CO2 29.6 mmol/L (21.0-32.0); CREATININE 1.36 mg/dL (0.55-1.02); Calcium 8.7 mg/dL (8.5-10.1); Chloride 98 mmol/L (98-107); Estimated GFR 39.66 (mL/min/1.73m2); Glucose 286 mg/dL (74-106); Potassium 4.2 mmol/L (3.5-5.1); Sodium 135 mmol/L (136-145); Total Protein 7.2 g/dL (6.4-8.2)
[2019-05-06 12:38] LABS: Bilirubin Negative (Negative); Blood Small (Negative); Clarity Sl Cloudy (Clear); Glucose 100 mg/dL (Negative); Ketones Negative (Negative); Leukocyte Esterase Small (Negative); Nitrite Negative (Negative); Urobilinogen 0.2 EU/dL (Up TO 0.2); pH 5.5 (5-8)
[2019-05-06 12:48] LABS: Epithelial Cells Few HPF (Negative); WBC >50 HPF (0-5)
[2019-05-06] MEDS: Normal Saline 1,000 ML 1000 ML IV (12:48)
[2019-05-06] MEDS: Normal Saline Flush 10 ML SYR IVP ×3 (12:48→21:54)
[2019-05-06 12:49] LABS: Bacteria Many HPF (Negative); C & S Indicated? C&S Done As Ordered; Crystals Negative HPF (Negative); Mucus Trace (Negative)
[2019-05-06] MEDS: Vancomycin 125 MG CAP PO (14:28)
[2019-05-06] MEDS: Hydrocortisone SOD SUC. 100 MG VIAL IVP (15:11)
[2019-05-06] MEDS: Normal Saline 1,000 ML 75 ML IV (17:57)
[2019-05-06] MEDS: Insulin Aspart 300 UNITS/3 ML PEN SC ×2 (17:57→21:55)
[2019-05-06] MEDS: Heparin 5,000 UNITS/ML VIAL 5000 UNITS SC (17:58)
[2019-05-06] MEDS: metroNIDAZOLE 500 MG/100 ML BAG 100 MG IVPB (18:09)
--- NOTE | 2019-05-06 18:39 | W.PM.HP.N ---
Date of service: 05/06/19 Time of Service: 18:40 Assessment and Plan Assessment and plan (1) C. difficile colitis: Status: Acute Assessment and plan: Recurrent. Treating with PO vanco/IV flagyl. Avoid PPI - on pepcid. Contiue questran BID, probiotics. Will talk to [facility] re possibility of stool transplant. (2) Adrenal insufficiency: Status: Chronic Assessment and plan: Acute on chronic, as evidenced by borderline low BPs, hypoglycemia yesterday, weakness. Will be receiving stress dose steroids in a taper. (3) Stage IV breast cancer in female: Status: Chronic Assessment and plan: Hold oral chemo (4) Diabetes mellitus: Status: Chronic Assessment and plan: Family to bring in U500 insulin if we do not have it Qualifiers: Diabetes mellitus type: type 2 Diabetes mellitus moth exterminator insulin use: with moth exterminator use Diabetes mellitus complication status: with kidney complications Diabetes mellitus complication detail: with chronic kidney disease Chronic kidney disease stage: stage 3 (moderate) Qualified Code(s): E11.22 - Type 2 diabetes mellitus with diabetic chronic kidney disease; N18.3 - Chronic kidney disease, stage 3 (moderate); Z79.4 - senior care (current) use of insulin (5) Discharge planning issues: Status: Acute Assessment and plan: DNR/DNI (6) DVT prophylaxis: Status: Acute Assessment and plan: heparin/TEDs/SCDs History of Present Illness History of Present Illness Chief Complaint: Diarrhea Narrative: Ms Maynard is a 59 year old female with PMHx of 3 episodes of prior C.diff, breast cancer on oral chemotherapy, recent UTI with bacteremia, having completed antibiotics last week with prophylactic oral vancomycin, as well as chronic adrenal insufficiency and IDDM2, who presented to [facility] today complaining of 2 days of pasty diarrhea without fevers, abdominal pain, or nausea. She again tested positive for C.Diff. While there was a suspicion for a UTI in the ED, the patient does not have any symptoms of it and, while it usually presents with Ms Maynard being confused/lethargic, she is not at all this way today. She was started on oral vancomycin/IV metronidazole. Review of Systems Narrative: 12 systems reviewed. Pertinent positives and negatives are as per HPI. Additionally, was hypoglycemic to 60-70 yesterday - recovered with food. Endorses gurgling sound in her abdomen. [facility] Social History Smoking/Tobacco Use Status: Former Tobacco Use Alcohol Intake: never Drug use: Never Substance use type: does not use Caregiver/Support person: Yes Household members: children Number of Children: 2 Communication Needs: Hard of Hearing and Corrective Lenses Education Level: middle school Do you need help understanding health information?: Always current occupation: on disability What is your relationship status?: How often do you talk on the phone with friends or family?: once per week How often do you get together with friends or relatives?: three or more times per week Panel score (0-1 are the most socially isolated patients): 1 What type of physical activity do you participate in: none, sedentary lifestyle, wheelchair-bound and additional Details: needs a new wheelchair, cannot walk far, just a few steps Special pedro pablo needs: No Do you feel safe at home: Yes Do you feel safe in your relationship?: Yes Additional Social history: , with 2 children. She is not working and on disability. Has a history of tobacco, quit in 1992. Reports rare use of alcohol only. Lives with daughter. Uses a walker to ambulate. Hard to do recently, depending more on WC. In a lot of pain. Recent scans show progression of breast cancer. Meds Home Medications and Allergies Home Medications Medication Instructions Recorded Confirmed Type Spiriva Respimat 1 puff INHALATION DAILY 04/03/17 05/06/19 History atorvastatin [Lipitor] 40 mg PO HS 04/03/17 05/06/19 History budesonide-formoterol [Symbicort] 2 puff INHALATION BID 04/03/17 05/06/19 History carbamazepine 200 mg PO BID 04/03/17 05/06/19 History cetirizine [Zyrtec] 10 mg PO DAILY 04/03/17 05/06/19 History cyanocobalamin (vitamin B-12) 1,000 mcg PO DAILY 04/03/17 05/06/19 History [Vitamin B-12] ferrous sulfate 325 mg PO TID 04/03/17 05/06/19 History folic acid 1 mg PO DAILY 04/03/17 05/06/19 History montelukast [Singulair] 10 mg PO DAILY 04/03/17 05/06/19 History ondansetron HCl [Zofran] 8 mg PO TID PRN 04/03/17 05/06/19 History pregabalin [Lyrica] 200 mg PO TID 04/03/17 05/06/19 History Trulicity 1.5 mg SUBCUT QWEEK 05/06/18 05/06/19 History hydrocortisone 5 mg PO QNOON 05/06/18 05/06/19 History hydrocortisone 20 mg PO QAM 05/06/18 05/06/19 History levothyroxine 150 mcg PO DAILY 05/06/18 05/06/19 History benzonatate 200 mg PO TID PRN #15 cap 05/10/18 05/06/19 Rx guaifenesin [Mucinex] 600 mg PO BID #10 tab 05/10/18 05/06/19 Rx duloxetine [Cymbalta] 60 mg PO HS 02/02/19 05/06/19 History loratadine 10 mg PO DAILY 02/02/19 05/06/19 History Lactobacillus acidophilus 1,000 mmu cells PO DAILY #30 cap 02/04/19 05/06/19 Rx Prevalite 4 g PO BID@1000,2000 PRN #10 each 02/04/19 05/06/19 Rx letrozole 2.5 mg PO DAILY 02/04/19 05/06/19 History ranitidine HCl 300 mg PO QHS #30 cap 02/04/19 05/06/19 Rx hydrocodone-acetaminophen 2 tab PO Q4H PRN PRN #5 tab 03/28/19 05/06/19 Rx Cholestyramine Light 4 g PO BID PRN 04/16/19 05/06/19 History Humulin R U-500 (Conc) Kwikpen 30 unit SUBCUT QNOON #0 ml 04/20/19 05/06/19 Rx Humulin R U-500 (Conc) Kwikpen 30 unit SUBCUT QPM #0 ml 04/20/19 05/06/19 Rx Humulin R U-500 (Conc) Kwikpen 70 unit SUBCUT QAM #0 ml 04/20/19 05/06/19 Rx fentanyl 1 patch TD Q72H #2 each 04/20/19 05/06/19 Rx Allergies Allergy/AdvReac Type Severity Reaction Status Date / Time bee venom protein (honey bee) Allergy Unknown Unverified 05/06/19 10:35 Latex, Natural Rubber AdvReac Intermediate Unverified 05/06/19 10:35 adhesive tape AdvReac Mild Unverified 05/06/19 10:35 Exam Narrative Exam Narrative: General: Very pleasant, obese female, feels warm to touch, at her baseline mental status Neurological: A&Ox3, no focal deficits Psychiatric: appropriate speech pattern/content Skin: visible skin intact HEENT: ATraumatic, normocephalic, EOMI, dry MM, clear oropharynx, no submandibular or cervical lymphadenopathy, ?small goiter, no JVD Cardiovascular: RRR, slightly tachycardic, no m/r/g Lungs: CTAB Gastrointestinal: soft, distended, nontender, + BS Genitourinary: deferred Extremities: chronic edema BLE's, no c/c Results Labs Result diagrams: 05/06/19 11:43 05/06/19 11:43 Labs: Laboratory Results - last 24 hr 05/06/19 05/06/19 05/06/19 11:43 11:43 11:43 WBC 5.20 RBC 3.27 L Hgb 9.8 L Hct 30.4 L MCV 93.0 MCH 30.0 MCHC 32.2 RDW 15.7 H Plt Count 230 MPV 8.9 Immature Gran % 0.2 Neutrophils % 73.6 Lymphocytes % 17.5 Monocytes % 7.7 Eosinophils % 0.8 Basophils % 0.2 Absolute Neutrophils 3.83 Absolute Lymphocytes 0.91 L Absolute Monocytes 0.40 Absolute Eosinophils 0.04 Absolute Basophils 0.01 Sodium 135 L Potassium 4.2 Chloride 98 Carbon Dioxide 29.6 Anion Gap 7.4 BUN 15 Creatinine 1.36 H Estimated GFR/1.73 m2 39.66 Glucose 286 H Lactate 2.0 H Calcium 8.7 Total Bilirubin 0.3 AST 21 ALT 13 L Alkaline Phosphatase 130 H Total Protein 7.2 Albumin 2.8 L Urine Color Urine Clarity Urine pH Ur Specific [place] Urine Protein Urine Ketones Urine Blood Urine Nitrite Urine Bilirubin Urine Urobilinogen Ur Leukocyte Esterase Urine RBC Urine WBC Ur Epithelial Cells Urine Crystals Urine Bacteria Urine Casts Urine Mucus Urine Other Ur Culture Indicated? Urine Glucose 05/06/19 12:24 WBC RBC Hgb Hct MCV MCH MCHC RDW Plt Count MPV Immature Gran % Neutrophils % Lymphocytes % Monocytes % Eosinophils % Basophils % Absolute Neutrophils Absolute Lymphocytes Absolute Monocytes Absolute Eosinophils Absolute Basophils Sodium Potassium Chloride Carbon Dioxide Anion Gap BUN Creatinine Estimated GFR/1.73 m2 Glucose Lactate Calcium Total Bilirubin AST ALT Alkaline Phosphatase Total Protein Albumin Urine Color Yellow Urine Clarity Sl cloudy Urine pH 5.5 Ur Specific [place] 1.020 Urine Protein 30 H Urine Ketones Negative Urine Blood Small H Urine Nitrite Negative Urine Bilirubin Negative Urine Urobilinogen 0.2 Ur Leukocyte Esterase Small H Urine RBC 10-20 H Urine WBC >50 H Ur Epithelial Cells Few Urine Crystals Negative Urine Bacteria Many Urine Casts >50 coarse granular Urine Mucus Trace Urine Other Many yeast Ur Culture Indicated? C&s done as ordered Urine Glucose 100 Last Vital Signs Temp 37.7 C H 05/06/19 16:21 Pulse 89 05/06/19 16:21 Resp 20 05/06/19 16:21 BP 103/69 05/06/19 16:21 Pulse Ox 92 L 05/06/19 16:21
[2019-05-06] MEDS: Acetaminophen 325 MG TAB PO (20:34)
[2019-05-06] MEDS: HYDROcodone 5/Acetaminophen 325 TAB PO (20:34)
[2019-05-06] MEDS: Ferrous Sulfate 325 MG TAB PO (20:35)
[2019-05-06] MEDS: carBAMazepine 200 MG TAB PO (20:36)
[2019-05-06 21:46] LABS: Lactate 0.9 mmol/L (0.6-1.4)
[2019-05-06] MEDS: Budesonide/Formoterol 160/4.5 6 GM 60 PUFF INH IH (21:51)
[2019-05-06] MEDS: Hydrocortisone SOD SUC. 100 MG VIAL 50 MG IVP (21:53)
[2019-05-06] MEDS: DULoxetine 30 MG CAP 60 MG PO (21:55)
[2019-05-06] MEDS: Atorvastatin 20 MG TAB 40 MG PO (21:55)
[2019-05-06] MEDS: fentaNYL 50 MCG PATCH TD (21:56)
[2019-05-06] MEDS: MEROPENEM 1 GM in Normal Saline 100 ML IVPB (22:31)
[2019-05-06 22:50] LABS: Procalcitonin 0.2 ng/mL
[2019-05-07] VITALS (10 sets, daily range): BP systolic 114–141; BP diastolic 61–80; PULSE 63–76; RESP 16–20; TEMP 35.6–36.8; O2SAT 90–98
[2019-05-07] MEDS: Heparin 5,000 UNITS/ML VIAL 5000 UNITS SC ×3 (01:42→17:52)
[2019-05-07] MEDS: metroNIDAZOLE 500 MG/100 ML BAG 100 MG IVPB ×3 (01:42→17:52)
[2019-05-07] MEDS: Hydrocortisone SOD SUC. 100 MG VIAL 50 MG IVP ×4 (04:11→21:35)
[2019-05-07] MEDS: Normal Saline Flush 10 ML SYR IVP ×3 (04:12→21:35)
[2019-05-07] MEDS: Levothyroxine 150 MCG TAB PO (06:09)
[2019-05-07] MEDS: Normal Saline 1,000 ML 75 ML IV (06:11)
[2019-05-07 07:30] LABS: Absolute Eosinophil Count 0.01 k/cumm (0.0-0.7); Absolute Lymphocyte Count 0.76 k/cumm (1.2-3.4); Absolute Monocyte Count 0.19 k/cumm (0.11-0.7); Absolute Neutrophil Count 2.82 k/cumm (1.2-6.7); Eosinophils % 0.3; HCT 29.5 % (36.0-46.0); HGB 9.5 g/dL (12.0-15.5); Lymphocytes % 20.1; Mean Corp. HGB Concentration 32.2 g/dL (32.0-36.0); Mean Corpuscular Volume 93.1 fL (80-95); Mean Platelet Volume 8.8 fL (8.0-11.0); Neutrophils % 74.6; Platelet Count 211 x1000/uL (130-400); RBC 3.17 m/cumm (4.00-5.20); RBC Distribution Width 14.9 % (11.7-14.6); White Blood Cell Count 3.78 k/cumm (4.4-10.8)
[2019-05-07 07:48] LABS: Anion Gap 6.9 mmol/L (3-11); BUN 17 mg/dL (7-18); CO2 29.1 mmol/L (21.0-32.0); CREATININE 1.13 mg/dL (0.55-1.02); Calcium 8.9 mg/dL (8.5-10.1); Chloride 100 mmol/L (98-107); Estimated GFR 49.12 (mL/min/1.73m2); Glucose 318 mg/dL (74-106); Magnesium 2.1 mg/dL (1.8-2.4); Potassium 4.7 mmol/L (3.5-5.1); Sodium 136 mmol/L (136-145)
[2019-05-07 08:03] LABS: Anisocytosis 2+; Diff Comment RBC Morph Reviewed
[2019-05-07 08:04] LABS: Polychromasia Present
[2019-05-07] MEDS: Cyanocobalamin 500 MCG TAB 1000 MCG PO (08:40)
[2019-05-07] MEDS: Loratidine 10 MG TAB PO (08:41)
[2019-05-07] MEDS: Hydrocortisone 10 MG TAB 20 MG PO (08:41)
[2019-05-07] MEDS: Ferrous Sulfate 325 MG TAB PO ×3 (08:42→19:37)
[2019-05-07] MEDS: Cetirizine 10 MG TAB PO (08:42)
[2019-05-07] MEDS: Insulin Aspart 300 UNITS/3 ML PEN SC ×4 (08:43→21:31)
[2019-05-07] MEDS: Folic Acid 1 MG TAB PO (08:43)
[2019-05-07] MEDS: carBAMazepine 200 MG TAB PO ×2 (08:43→19:37)
--- NOTE | 2019-05-07 08:48 | IN_ITS ---
Date of service: 05/07/19 Time of Service: 08:48 PT Notes Visit Reasons: RECURRENT C. DIFF Physical Therapy Inpatient Initial Evaluation Date: 05/07/2019 Referring Doctor: Sheyla Reno MD PT Orders: PT CONSULT: Limited ability Precautions: Fall. Enteric contact precautions. Activity as tolerated. Patient Profile/Admitting Diagnosis: Patient is a 59-year-old female with past medical history significant for stage IV breast carcinoma with metastases to the lymphatic system and bones, and renal insufficiency, RAKAN, and cancer related pain who presented to the ED on 05/06/2019 with chief complaints of diarrhea for the past 2 days prior to admission. Patient is diagnosed with C. difficile colitis with referral to skilled physical therapy services to address impairments in strength and activity tolerance. PMHX: Medical History C. difficile diarrhea (Acute) Cancer related pain (Chronic) much improved with fentanyl patch Carpal tunnel syndrome (Acute) Chronic adrenal insufficiency (Acute) Chronic pain (Chronic) Chronic respiratory failure with hypoxia (Chronic) Chronic venous stasis dermatitis (Chronic) COPD (chronic obstructive pulmonary disease) (Chronic) On nocturnal oxygen - 2L prn Depression (Chronic) Diabetes mellitus (Chronic) Insulin dependent Diverticulosis (Acute) Dyslipidemia (Chronic) Goals of care, counseling/discussion (Acute) History of breast cancer (Chronic) metastatic, with lymphatic spread and bone mets Hyperlipidemia (Acute) Hypopituitarism (Chronic) Hypothyroidism (Chronic) Influenza B (Acute) Iron deficiency anemia (Acute) Metastatic breast cancer (Chronic) Obesity (Chronic) Obstructive sleep apnea (Chronic) per [facility] records Palliative care patient (Chronic) Pneumonia (Acute) POLST (Physician Orders for Life-Sustaining Treatment) (Acute) done 03/26/19; sent to [facility], [facility], [facility], original to her Restless leg syndrome (Acute) Spinal stenosis (Acute) Stage IV breast cancer in female (Chronic) Uncontrolled pain (Resolved) Surgical History H/O bilateral mastectomy (Acute) H/O colonoscopy with polypectomy (Acute) History of carpal tunnel release of both wrists (Acute) Port-A-Cath in place (Acute) Status post transsphenoidal pituitary resection (Acute) Social History/Home Situation: Candace lives with her daughter in [place], [place] in a two-story house with a ramp to enter with rails on both sides. Patient has stairs to the second floor of the house but has everything she needs on the first floor. She is disabled. She has 2 daughters locally. She receives choices for care highest needs, and her daughter Kiki is her primary provider for 12 years now. Kiki's provides assistance with bathing and does meal preapration and assistance with lower body dressing. She was independent with front-wheeled walker for in-house ambulation and uses the 4-wheeled walker for outdoor ambulation. She has to walk about 80-90 feet to get to her car. She is dependent on her daughter for transportation to and from appointments. Daughter also provides assistance with bathing patient's back due to body habitus. Equipment Owned/DME: Bariatric FWW, bariatric hospital bed, bariatric recliner, bariatric front wheeled walker, new bariatric wheelchair with seat and back cushions Subjective: Patient is seen resting in bed and is agreeable to a PT evaluation. Denies any headache, chest pain, and lightheadedness. Objective: General Observation: IV in right UE open. Hemosiderin staining observed in bilateral distal legs from CVI. Abdominal panniculus. Mental Status: Alert and oriented x 4 Pain: 0/10 ROM: Right Upper Extremity: Shoulder flexion 90-100 degrees. Elbow flexion WFL. Hands/wrist and fingers are WFL. Left Upper Extremity: Shoulder flexion 90-100 degrees. Elbow flexion WFL. Hands/wrist and fingers are WFL. Right Lower Extremity: Patient is able to bend hip to about 20 degrees beyond 90 while seated at edge of bed. Knee flexion WFL. Dorsiflexion/plantarflexion WFL. Left Lower Extremity: Patient is able to bend hip to about 10 degrees beyond 90 while seated at edge of bed. Knee flexion WFL. Dorsiflexion/plantarflexion WFL. Strength: Right Upper Extremity: Shoulder flexion 3-/5. Elbow flexion 4/5. Plug Paster strong and functional Left Upper Extremity: Shoulder flexion 3-/5. Elbow flexion 4/5. Plug Paster strong and functional. Right Lower Extremity: Hip flexion 3-/5. Hip extension 3/5. Knee flexion 4/-5. Knee extension 4-/5. Ankle dorsiflexion/plantarflexion 4/5. Left Lower Extremity: Hip flexion 3-/5. Hip extension 3/5. Knee flexion 4-/5. Knee extension 4-/5. Ankle dorsiflexion/plantarflexion 4/5. Bed Mobility/Transfers: Sit to stand: CGA Stand to sit: CGA Bed to chair: CGA Chair to bed: CGA Gait: Patient tolerated level surface ambulation of 12 feet using front wheeled walker with minimal assist. Decreased julia. Reciprocal step-to gait pattern. Balance: Static Sitting: Normal Dynamic Sitting: Good Static Standing: Fair Dynamic Standing: Fair Special Tests: Mobility Limitations Standardized Measure [facility] 6 clicks Basic Mobility Inpatient Short Form: Raw Score: 17 CMS Score: 50 % deficit Informed Consent/Education: Patient was instructed in purpose of PT consult and plan of care. Assessment: Patient is a 59-year-old female with past medical history significant for stage IV breast carcinoma with metastases to the lymphatic system and bones, and renal insufficiency, RAKAN, and cancer related pain with difficulty with walking, impaired mobility ADL performance, and generalized weakness who presented to the ED on 05/06/2019 with chief complaints of diarrhea for the past 2 days prior to admission. Patient is diagnosed with C. difficile colitis with referral to skilled physical therapy services to address impairments in strength and activity tolerance. Her daughter is her 23/09 caregiver. Her prognosis for regaining prior level of function is fair to good. PT goals will be aimed at addressing the following impairment level findings: 1. Decreased range of motion for hip and knees bilaterally 2. Impaired strength to B LE 3. Impaired activity tolerance 4. Decreased balance skills Impairments are contributing to the following functional limitations: 1. Increased risk for falls due to balance impairments 2. Limited ambulation distance 3. Need for assistive device for all mobility ADL performance 4. Increased fall risk Patient is assessed as a Moderate 24136 complexity based on the following: History: 59-year-old female with impairment level findings, functional limitations, and [facility] deficits score of Examination: Decline in mobility level, strength deficits, and activity tolerance limitations as above due to current diagnoses Presentation: Evolving Decision Making: Moderate complexity [id number] Goals: Goals X1 week 1. Supine-Sit independent 2. Sit-Supine independent 3. Sit-Stand independent 4. Stand-Sit independent 5. Bed-Chair independent 6. Chair-Bed independent 7. Gait indoor and outdoor ambulation using FWW for at least 200 feet 8. Independent with home exercise program 9. Static/dynamic standing balance/tolerance good Plan of Care/Treatment Plan: 1-2x/day, 7 days/week x 1 week. Plan of care has been reviewed with the BARREL TURNER providing the service under Physical Therapy direction. Initiate Physical Therapy intervention for strengthening, bed mobility, transfers, gait, stairs, balance training, use of assistive device, HEP education/training. DISCHARGE RECOMMENDATIONS: Patient will benefit from home health PT services in order to progress mobility level using four-wheeled walker, assess home safety, identify additional equipment needs, and cotninue with a functional maintenance program that will increase ability of patient to remain at home with daughter. TREATMENT CODE/TIME: 22693 x 27 minutes beginning at 8:48 AM. Thank you very much for this referral. Allie Miguel PT, DPT, CLT [facility] Inpatient PT at [place], [place]
[2019-05-07] MEDS: Letrozole 2.5 MG TAB PO (08:49)
[2019-05-07] MEDS: Tiotropium Bromide-Respimat 10 PUFF INH IH (09:53)
[2019-05-07] MEDS: Budesonide/Formoterol 160/4.5 6 GM 60 PUFF INH IH ×2 (09:56→19:36)
[2019-05-07] MEDS: MEROPENEM 1 GM in Normal Saline 100 ML IVPB (11:41)
[2019-05-07] MEDS: Hydrocortisone 10 MG TAB 5 MG PO (13:11)
[2019-05-07] MEDS: HYDROcodone 5/Acetaminophen 325 TAB PO (14:14)
--- NOTE | 2019-05-07 14:41 | W.NUTCONSULT ---
Date of service: 05/07/19 Time of Service: 14:41 Nutritional Consult ASSESSMENT: 59 year old female admitted with n/v/d with C diff colitis (has had 3 episodes) may need fecal transplant. PMH: stage 4 breast cancer s/p chemo. Now with hypoglycemia, hypokalemia, IV repletion in place. Labs indicate elevated blood sugars (>300 mg/dl), CDE on board making warranted recommendations for optimal blood sugar management. Following diabetic diet with 100% intake per documentation. BMI >50 indicating morbid obesity. At risk for nutritional decline in view of multiple episodes of c. diff colitis, n/v/d limiting po intake episodically. Currently meeting 100% nutrient and fluid needs by mouth. Dietary aware to provide yogurt daily, avoid beets for optimal digestion. NUTRITIONAL DIAGNOSIS: Morbid Obesity as evidenced by BMI of 55 INTERVENTION: Diabetic Diet daily weight daily meal monitoring MONITORING AND EVALUATION: po intake, labs, weights, stool frequency Time Spent in Nutritional Counseling and Treatment: 0 time spent face to face
--- NOTE | 2019-05-07 15:10 | NT_ITS ---
Date of service: 05/07/19 Time of Service: 15:10 PT Notes Visit Reasons: RECURRENT C. DIFF 05/07/2019 Pt declined PT services this afternoon. Adrianne Mera, HOUSING COUNSELOR
--- NOTE | 2019-05-07 15:28 | PDOC.CMIN ---
- If Service Date Differs Date of service: 05/07/19 Time of Service: 15:28 Care Management Initial Assess REASON FOR HOSPITALIZATION:: C. difficile colitis PAST MEDICAL HISTORY/PAST SURGICAL HISTORY:: C. diff, cancer related pain, carpal tunnel syndrome, chronic adrenal insufficency, chronic pain, chronic respiratory failure with hypoxia, chronic venous stasis dermatitis, COPD, Depression, DM, Diverticulosis, Dyslipidemia, hx of breast cancer, hyperlipidemia, hypopituitarism, hypothyroidism, influenza B, iron deficiency anemia, metastatic breast cancer, obesity, RAKAN, palliative care patient, pneumonia, POLST, restless leg syndrome, spinal stenosis, stage IV breast cancer in female, uncontrolled pain, bilateral mastectomy, colonoscopy with polypectomy, hx of carpal tunnel release bilat, port-a-cath in place, s/p transphenoidal pituitary resection PREVIOUS FUNCTIONAL STATUS/SOCIAL/FAMILY SUPPORTS:: Candace lives at home with her daughter in [facility]. She has two daughters who reside locally. She is currently disabled and receives [facility] highest needs; her daughter Kiki is her primary caregiver. Candace utilizes a walker for ambulation, and a wheeled walker for distance. She is dependent on her daughter for transportation to and from appointments. CURRENT FUNCTIONAL STATUS:: Candace was sitting up in a chair when CM met with her. She acknowledged that she is becoming discouraged with all of the hospitalizations (6) she has had in the past year. Candace shared that she just completed her course of antibiotics on Friday and her symptoms began Friday. She rstated that she really hopes that a permanent cure for her colitis can be found. ADVANCE DIRECTIVES:: yes. Thuy Swanson [facility] Has patient been provided with information about the portal?: Yes Did the patient sign up for the portal?: No CODE STATUS:: DNR/DNI INSURANCE COVERAGE / FINANCIAL ISSUES:: Medicaid CURRENT HOME/COMMUNITY SERVICES/EQUIPMENT:: FWW, rollater, wheelchair, VNA nursing and PT PRIMARY CARE PHYSICIAN:: Jan Coleman POTENTIAL DISCHARGE NEEDS:: Follow up with PCP, Oncologist and discharge plan of care PATIENT/FAMILY EDUCATION NEEDS:: Discharge plan, limitations, follow up plan and Ask Me Three. TRANSPORTATION:: via private vehicle with family PLAN:: Candace will likely be discharged home with a resumption of home health services. She will follow up with her oncologist, PCP and discharghe plan. CM will continue to support patient, family and discharge planning concerns. Readmission - Within the Past 30 Days Yes or No: Y - Date of First Admission Date of 1st Admission: 04/16/19 - Date of this Admission Date of Admission: 05/06/19 This admission was: Through ED - Office Visit Since 1st Admission Have you seen your PCP in the office since discharge?: Yes - I. Interview patient and/or Family Difficulty reaching your doctor or getting an office appt?: No Have you had trouble purchasing/ or taking medication?: No Have you had trouble with getting meals at home?: No Did you feel ready for discharge when you left the last time: Yes Were services received that you thought were set up on disch: Yes Did you call your physician beore you came to the ED?: Yes Did your physician tell you to come in?: Yes How do you think you became sick enough to come back?: Took antibiotics and C. difficile returned. Has had it 3 or 4 times before. - If the patient had a VNA ordered Did the patient have a VNA order?: Yes Did you call the VNA before you came?: No - If the patient had home care service Call them to discuss the patient's admission: CM called [facility] to inform them that Candace has been hospitalized again. They were unaware. She had been doing well until Friday.The C. difficile had onset late Friday and Candace knew, from past experience, what it most likely was. - Assessment for Readmission Summary of readmission circumstances, based upon interviews: Candace has had 6 hospitalizations at [facility] and at least 1 in [facility] [place] [facility] in the past year. Most of these were for infections. She has taken many courses of antibiotics and has developed C. difficile 4 times.
--- NOTE | 2019-05-07 19:57 | W.PM.PROGNOT ---
Date of Service Date of service: 05/07/19 Time of Service: 19:57 Assessment and Plan Assessment and plan (1) C. difficile colitis: Status: Acute Assessment and plan: Recurrent. Improving on PO vanco/IV flagyl - continue. Avoid PPI - on pepcid. Contiue questran BID, probiotics. Conversation with [facility] re stool transplant: patient is felt to be stable to follow up for this with GI at [facility] as outpatient. On discharge, she is recommended a vancomycin taper as per UpToDate guidelines. (2) Adrenal insufficiency: Status: Chronic Assessment and plan: Acute on chronic, as evidenced by borderline low BPs, hypoglycemia, weakness as outpatient. Today, hypothermic and hyponatremic; Continue stress dose steroids. (3) Stage IV breast cancer in female: Status: Chronic Assessment and plan: Hold oral chemo (4) Diabetes mellitus: Status: Chronic Assessment and plan: Increase current doses of insulins Qualifiers: Diabetes mellitus type: type 2 Diabetes mellitus alf insulin use: with termite exterminator use Diabetes mellitus complication status: with kidney complications Diabetes mellitus complication detail: with chronic kidney disease Chronic kidney disease stage: stage 3 (moderate) Qualified Code(s): E11.22 - Type 2 diabetes mellitus with diabetic chronic kidney disease; N18.3 - Chronic kidney disease, stage 3 (moderate); Z79.4 - [employer] (current) use of insulin (5) Discharge planning issues: Status: Acute Assessment and plan: DNR/DNI (6) DVT prophylaxis: Status: Acute Assessment and plan: heparin/TEDs/SCDs Subjective Subjective Interval history since last seen: Ms Maynard feels much better today. Denies dizziness, chest pains, shortness of breath, nausea, vomiting. Reports her diarrhea has stopped. Was initiated on empiric meropenem overnight as spiked a fever for a presumed UTI. Her daughter also agrees that she does not behave like she has a UTI. This is her 4th or 5th episode of C.Diff, depending on which one of them you ask. Exam Narrative Exam Narrative: General: Very pleasant, obese female, in great spirits, looks to be at her baseline, A&Ox3 HEENT: ATraumatic, normocephalic, EOMI, MMM Cardiovascular: RRR, slightly tachycardic, no m/r/g Lungs: CTAB Gastrointestinal: soft, distended, nontender, + BS Extremities: chronic edema BLE's, no c/c Objective Objective Clinical Data: Abnormal lab results 05/07/19 05/07/19 Range/Units 07:20 07:20 WBC 3.78 L (4.4-10.8) k/cumm RBC 3.17 L (4.00-5.20) m/cumm Hgb 9.5 L (12.0-15.5) g/dL Hct 29.5 L (36.0-46.0) % RDW 14.9 H (11.7-14.6) % Absolute Lymphocytes 0.76 L (1.2-3.4) k/cumm Creatinine 1.13 H (0.55-1.02) mg/dL Glucose 318 H (74-106) mg/dL Vital Signs Temperature 36.2 C L 05/07/19 19:03 Temperature Source Tympanic 05/07/19 19:03 Pulse 75 05/07/19 19:03 Pulse Rhythm Regular 05/07/19 16:34 Respiratory Rate 17 05/07/19 19:03 Respiratory Effort 05/07/19 16:34 Respiratory Depth Normal 05/07/19 16:34 Respiratory Pattern Normal 05/07/19 16:34 Blood Pressure 115/61 05/07/19 19:03 Blood Pressure Mean 74 05/06/19 15:30 Blood Pressure Position Sitting 05/06/19 12:06 Pulse Oximetry 91 L 05/07/19 19:03 Oxygen Delivery Method Room Air 05/07/19 19:03 Oxygen Flow Rate 0 05/07/19 19:03 Pain Level 0 05/07/19 19:03 Intake & Output 05/06/19 05/07/19 05/07/19 23:59 11:59 23:59 Intake Total 1200 / 1210 1617.5 / 1817.5 200 / 1817.5 Balance 1200 / 1210 1617.5 / 1817.5 200 / 1817.5 Weight 153 kg 152.1 kg Intake: IV 1200 / 1210 1377.5 / 1577.5 200 / 1577.5 Oral 240 / 240 0 / 240 Other: Urine Color Yellow Yellow Yellow Urine Appearance Clear Clear Urine Odor None Normal Voiding Methods Incontinent Incontinent Laboratory Results WBC 3.78 k/cumm (4.4-10.8) L 05/07/19 07:20 RBC 3.17 m/cumm (4.00-5.20) L 05/07/19 07:20 Hgb 9.5 g/dL (12.0-15.5) L 05/07/19 07:20 Hct 29.5 % (36.0-46.0) L 05/07/19 07:20 MCV 93.1 fL (80-95) 05/07/19 07:20 MCH 30.0 pg (27.0-33.0) 05/07/19 07:20 MCHC 32.2 g/dL (32.0-36.0) 05/07/19 07:20 RDW 14.9 % (11.7-14.6) H 05/07/19 07:20 Plt Count 211 x1000/uL (130-400) 05/07/19 07:20 MPV 8.8 fL (8.0-11.0) 05/07/19 07:20 Immature Gran % 0.0 % 05/07/19 07:20 Neutrophils % 74.6 05/07/19 07:20 Lymphocytes % 20.1 05/07/19 07:20 Monocytes % 5.0 05/07/19 07:20 Eosinophils % 0.3 05/07/19 07:20 Basophils % 0.0 05/07/19 07:20 Absolute Neutrophils 2.82 k/cumm (1.2-6.7) 05/07/19 07:20 Absolute Lymphocytes 0.76 k/cumm (1.2-3.4) L 05/07/19 07:20 Absolute Monocytes 0.19 k/cumm (0.11-0.7) 05/07/19 07:20 Absolute Eosinophils 0.01 k/cumm (0.0-0.7) 05/07/19 07:20 Absolute Basophils 0.00 k/cumm (0.0-0.2) 05/07/19 07:20 Differential Comment Rbc morph reviewed 05/07/19 07:20 RBC Morphology See below 05/07/19 07:20 Polychromasia Present 05/07/19 07:20 Anisocytosis 2+ 05/07/19 07:20 Sodium 136 mmol/L (136-145) 05/07/19 07:20 Potassium 4.7 mmol/L (3.5-5.1) 05/07/19 07:20 Chloride 100 mmol/L (98-107) 05/07/19 07:20 Carbon Dioxide 29.1 mmol/L (21.0-32.0) 05/07/19 07:20 Anion Gap 6.9 mmol/L (3-11) 05/07/19 07:20 BUN 17 mg/dL (7-18) 05/07/19 07:20 Creatinine 1.13 mg/dL (0.55-1.02) H 05/07/19 07:20 Estimated GFR/1.73 m2 49.12 (mL/min/1.73m2) 05/07/19 07:20 Glucose 318 mg/dL (74-106) H 05/07/19 07:20 Lactate 0.9 mmol/L (0.6-1.4) 05/06/19 21:25 Calcium 8.9 mg/dL (8.5-10.1) 05/07/19 07:20 Magnesium 2.1 mg/dL (1.8-2.4) 05/07/19 07:20 Total Bilirubin 0.3 mg/dL (0.2-1.0) 05/06/19 11:43 AST 21 U/L (15-37) 05/06/19 11:43 ALT 13 U/L (14-59) L 05/06/19 11:43 Alkaline Phosphatase 130 U/L (46-116) H 05/06/19 11:43 Total Protein 7.2 g/dL (6.4-8.2) 05/06/19 11:43 Albumin 2.8 g/dL (3.4-5.0) L 05/06/19 11:43 Procalcitonin 0.2 ng/mL 05/06/19 21:25 Urine Color Yellow (Yellow) 05/06/19 12:24 Urine Clarity Sl cloudy (Clear) 05/06/19 12:24 Urine pH 5.5 (5-8) 05/06/19 12:24 Ur Specific [place] 1.020 (1.005-1.025) 05/06/19 12:24 Urine Protein 30 mg/dL (Negative) H 05/06/19 12:24 Urine Ketones Negative mg/dL (Negative) 05/06/19 12:24 Urine Blood Small (Negative) H 05/06/19 12:24 Urine Nitrite Negative (Negative) 05/06/19 12:24 Urine Bilirubin Negative (Negative) 05/06/19 12:24 Urine Urobilinogen 0.2 EU/dL (Up TO 0.2) 05/06/19 12:24 Ur Leukocyte Esterase Small (Negative) H 05/06/19 12:24 Urine RBC 10-20 HPF (0-2) H 05/06/19 12:24 Urine WBC >50 HPF (0-5) H 05/06/19 12:24 Ur Epithelial Cells Few HPF (Negative) 05/06/19 12:24 Urine Crystals Negative HPF (Negative) 05/06/19 12:24 Urine Bacteria Many HPF (Negative) 05/06/19 12:24 Urine Casts >50 coarse granular LPF (Negative) 05/06/19 12:24 Urine Mucus Trace (Negative) 05/06/19 12:24 Urine Other Many yeast (Negative) 05/06/19 12:24 Ur Culture Indicated? C&s done as ordered 05/06/19 12:24 Urine Glucose 100 mg/dL (Negative) 05/06/19 12:24
[2019-05-07] MEDS: Atorvastatin 20 MG TAB 40 MG PO (21:36)
[2019-05-07] MEDS: Pregabalin 100 MG CAP PO (21:36)
[2019-05-07] MEDS: DULoxetine 30 MG CAP 60 MG PO (21:36)
[2019-05-07] MEDS: Montelukast 10 MG TAB PO (21:37)
[2019-05-08] MEDS: Heparin 5,000 UNITS/ML VIAL 5000 UNITS SC ×2 (01:02→10:07)
[2019-05-08] MEDS: metroNIDAZOLE 500 MG/100 ML BAG 100 MG IVPB ×3 (01:03→09:56)
[2019-05-08] MEDS: Normal Saline Flush 10 ML SYR IVP ×2 (01:36→09:58)
[2019-05-08] MEDS: Hydrocortisone SOD SUC. 100 MG VIAL 50 MG IVP ×3 (03:22→09:57)
[2019-05-08] MEDS: HYDROcodone 5/Acetaminophen 325 TAB PO (03:22)
[2019-05-08 03:37] VITALS: BP 131/79; PULSE 56; RESP 18; TEMP 36.5; O2SAT 97
[2019-05-08] MEDS: Levothyroxine 150 MCG TAB PO (06:09)
[2019-05-08 07:24] VITALS: BP 122/78; PULSE 60; RESP 16; TEMP 36.4; O2SAT 96
[2019-05-08] MEDS: Tiotropium Bromide-Respimat 10 PUFF INH IH (07:52)
[2019-05-08] MEDS: Budesonide/Formoterol 160/4.5 6 GM 60 PUFF INH IH (07:52)
[2019-05-08 07:55] LABS: Abs Immature Grans 0.01 k/cumm (0.0-0.09); Absolute Basophil Count 0.01 k/cumm (0.0-0.2); Absolute Eosinophil Count 0.01 k/cumm (0.0-0.7); Absolute Lymphocyte Count 1.05 k/cumm (1.2-3.4); Absolute Monocyte Count 0.29 k/cumm (0.11-0.7); Absolute Neutrophil Count 3.56 k/cumm (1.2-6.7); Basophils % 0.2; Eosinophils % 0.2; HCT 29.2 % (36.0-46.0); HGB 9.3 g/dL (12.0-15.5); Immature Grans % 0.2 %; Lymphocytes % 21.3; Mean Corp. HGB Concentration 31.8 g/dL (32.0-36.0); Mean Corpuscular Hemoglobin 29.5 pg (27.0-33.0); Mean Corpuscular Volume 92.7 fL (80-95); Mean Platelet Volume 9.4 fL (8.0-11.0); Monocytes % 5.9; Neutrophils % 72.2; Platelet Count 222 x1000/uL (130-400); RBC 3.15 m/cumm (4.00-5.20); RBC Distribution Width 14.8 % (11.7-14.6); White Blood Cell Count 4.93 k/cumm (4.4-10.8)
[2019-05-08 07:59] LABS: Anion Gap 5.8 mmol/L (3-11); BUN 20 mg/dL (7-18); CO2 30.2 mmol/L (21.0-32.0); CREATININE 1.04 mg/dL (0.55-1.02); Chloride 102 mmol/L (98-107); Estimated GFR 54.05 (mL/min/1.73m2); Glucose 219 mg/dL (74-106); Potassium 4.2 mmol/L (3.5-5.1); Sodium 138 mmol/L (136-145)
[2019-05-08] MEDS: Cyanocobalamin 500 MCG TAB 1000 MCG PO (08:17)
[2019-05-08] MEDS: Folic Acid 1 MG TAB PO (08:17)
[2019-05-08] MEDS: Ferrous Sulfate 325 MG TAB PO ×2 (08:18→13:23)
[2019-05-08] MEDS: Pregabalin 100 MG CAP PO ×2 (08:18→13:23)
[2019-05-08] MEDS: Cetirizine 10 MG TAB PO (08:18)
[2019-05-08] MEDS: Loratidine 10 MG TAB PO (08:18)
[2019-05-08] MEDS: Letrozole 2.5 MG TAB PO (08:18)
[2019-05-08] MEDS: Hydrocortisone 10 MG TAB 20 MG PO (08:18)
[2019-05-08] MEDS: carBAMazepine 200 MG TAB PO (08:18)
[2019-05-08] MEDS: Insulin Aspart 300 UNITS/3 ML PEN SC ×2 (08:27→11:44)
[2019-05-08 08:44] VITALS: O2SAT 96
--- NOTE | 2019-05-08 09:13 | CMPROGNOTE_ITS ---
Care Management Progress Note S/O: Candace continues to be closely monitored at this time. CM continues to follow. A: 59 year old female admitted to [facility] with recurrent C.Diff P: Candace will be discharged home with a resumption of home health services. She will follow up with her oncologist, PCP and discharge plan as prescribed. CM will continue to support patient, family and discharge planning concerns.
[2019-05-08] MEDS: Cholestyramine/Aspartame PKT 1 EACH PO (09:52)
--- NOTE | 2019-05-08 10:33 | W.ED.GENAD ---
Discharge Plan Discharge Details Chief Complaint: Abd Prob Admit Date/Time: 05/06/19 14:14 Admit Provider: Sheyla Reno Attending Provider: Sheyla Reno Primary Care Provider: ANNA TORO ED Provider: Scarlett Jama Discharge Data Discharge Date/Time-TO BE ENTERED AT DEPARTURE: 05/06/19 15:54 HPI General Date/Time Provider Initiated Documentation: 05/06/19 10:44. HPI Narrative: This is a 59-year-old patient presenting to the emergency room for complaints of onset of nausea which she does report she has at baseline but is increased to the last 2 days as well as development of diarrhea in the last 2 days. Patient reports in the last 24 hours noting onset of diffuse weakness. Family at the bedside with whom she lives reports she had some difficulty transitioning to get her into the emergency room today. Patient reports feeling weak overall. Patient does report 6 episodes of diarrhea in the last 48 hours. Patient reports watery diarrhea. Patient does report a history of recent C. difficile. Patient also reports serial urinary tract infections. Patient recently discharged from the hospital within the week after completing a course of antibiotics for UTI. Patient does have a history of urosepsis. Patient denies any headache or dizziness currently. Patient reports she is able to eat and drink without difficulty although does have nausea intermittently which she has taken Zofran with mild relief. Patient denies any active vomiting. Patient denies any abdominal pain whatsoever. No radiating pain to her back. Patient denies cough, difficulty breathing of shortness of breath or wheezing. No chest pain associated. Patient predominantly concerned with the possibility of return of C. difficile as she was on antibiotics for her UTI 1 week ago. Patient reports symptoms are remnant of early C. difficile. Patient denies any blood in bowel movements. Patient reports urinating without difficulty, frequency, urgency or dysuria. No hematuria noted. No other concerns or complaints at this time. Related Data Home Medications Medication Instructions Recorded Confirmed Spiriva Respimat 1 puff INHALATION DAILY 04/03/17 05/06/19 atorvastatin [Lipitor] 40 mg PO HS 04/03/17 05/06/19 budesonide-formoterol [Symbicort] 2 puff INHALATION BID 04/03/17 05/06/19 carbamazepine 200 mg PO BID 04/03/17 05/06/19 cetirizine [Zyrtec] 10 mg PO DAILY 04/03/17 05/06/19 cyanocobalamin (vitamin B-12) 1,000 mcg PO DAILY 04/03/17 05/06/19 [Vitamin B-12] ferrous sulfate 325 mg PO TID 04/03/17 05/06/19 folic acid 1 mg PO DAILY 04/03/17 05/06/19 montelukast [Singulair] 10 mg PO DAILY 04/03/17 05/06/19 ondansetron HCl [Zofran] 8 mg PO TID PRN 04/03/17 05/06/19 pregabalin [Lyrica] 200 mg PO TID 04/03/17 05/06/19 Trulicity 1.5 mg SUBCUT QWEEK 05/06/18 05/06/19 hydrocortisone 5 mg PO QNOON 05/06/18 05/06/19 hydrocortisone 20 mg PO QAM 05/06/18 05/06/19 levothyroxine 150 mcg PO DAILY 05/06/18 05/06/19 benzonatate 200 mg PO TID PRN #15 cap 05/10/18 05/06/19 guaifenesin [Mucinex] 600 mg PO BID #10 tab 05/10/18 05/06/19 duloxetine [Cymbalta] 60 mg PO HS 02/02/19 05/06/19 loratadine 10 mg PO DAILY 02/02/19 05/06/19 Lactobacillus acidophilus 1,000 mmu cells PO DAILY #30 cap 02/04/19 05/06/19 Prevalite 4 g PO BID@1000,2000 PRN #10 each 02/04/19 05/06/19 letrozole 2.5 mg PO DAILY 02/04/19 05/06/19 ranitidine HCl 300 mg PO QHS #30 cap 02/04/19 05/06/19 hydrocodone-acetaminophen 2 tab PO Q4H PRN PRN #5 tab 03/28/19 05/06/19 Cholestyramine Light 4 g PO BID PRN 04/16/19 05/06/19 Humulin R U-500 (Conc) Kwikpen 30 unit SUBCUT QNOON #0 ml 04/20/19 05/06/19 Humulin R U-500 (Conc) Kwikpen 30 unit SUBCUT QPM #0 ml 04/20/19 05/06/19 Humulin R U-500 (Conc) Kwikpen 70 unit SUBCUT QAM #0 ml 04/20/19 05/06/19 fentanyl 1 patch TD Q72H #2 each 04/20/19 05/06/19 Previous Rx's Medication Instructions Recorded benzonatate 200 mg PO TID PRN #15 cap 05/10/18 guaifenesin [Mucinex] 600 mg PO BID #10 tab 05/10/18 Lactobacillus acidophilus 1,000 mmu cells PO DAILY #30 cap 02/04/19 Prevalite 4 g PO BID@1000,2000 PRN #10 each 02/04/19 ranitidine HCl 300 mg PO QHS #30 cap 02/04/19 hydrocodone-acetaminophen 2 tab PO Q4H PRN PRN #5 tab 03/28/19 Humulin R U-500 (Conc) Kwikpen 30 unit SUBCUT QNOON #0 ml 04/20/19 Humulin R U-500 (Conc) Kwikpen 30 unit SUBCUT QPM #0 ml 04/20/19 Humulin R U-500 (Conc) Kwikpen 70 unit SUBCUT QAM #0 ml 04/20/19 fentanyl 1 patch TD Q72H #2 each 04/20/19 Allergies Allergy/AdvReac Type Severity Reaction Status Date / Time bee venom protein (honey bee) Allergy Unknown Unverified 05/06/19 10:35 Latex, Natural Rubber AdvReac Intermediate Unverified 05/06/19 10:35 adhesive tape AdvReac Mild Unverified 05/06/19 10:35 General Stated Complaint: Abd Prob CARMEN: 3 Review of Systems All systems reviewed & are unremarkable except as noted in HPI and below Constitutional Constitutional: Denies chills, Reports fatigue, Denies fever(s), Denies headache(s) and Reports malaise ENT Ears, Nose, Mouth, and Throat: Denies vertigo, Denies dizziness, Denies otalgia, Denies headache(s), Denies neck pain, Denies sinus pain, Denies sinus pressure and Denies sore throat Cardiovascular Cardiovascular: Denies chest pain, Denies chest pain with activity, Denies palpitations, Denies dyspnea and Denies dyspnea on exertion Respiratory Respiratory: Denies cough, Denies pain on inspiration, Denies pain with cough, Denies dyspnea, Denies dyspnea on exertion and Denies wheezing Gastrointestinal Gastrointestinal: Denies abdominal pain, Denies cramping, Reports diarrhea, Reports nausea and Denies vomiting Genitourinary Genitourinary: Denies hematuria, Denies dysuria, Denies flank pain, Denies urinary incontinence, Denies urinary hesitancy and Denies urinary urgency Musculoskeletal Musculoskeletal: Denies back pain and Denies neck pain Neurologic Neurologic: Denies vertigo, Denies dizziness and Denies headache(s) Endocrine Endocrine: Reports fatigue and Denies palpitations Allergic/Immunologic Allergic/Immunologic: Denies wheezing [facility] Medical History C. difficile diarrhea (Acute) Cancer related pain (Chronic) much improved with fentanyl patch Carpal tunnel syndrome (Acute) Chronic adrenal insufficiency (Acute) Chronic pain (Chronic) Chronic respiratory failure with hypoxia (Chronic) Chronic venous stasis dermatitis (Chronic) COPD (chronic obstructive pulmonary disease) (Chronic) On nocturnal oxygen - 2L prn Depression (Chronic) Diabetes mellitus (Chronic) Insulin dependent Diverticulosis (Acute) Dyslipidemia (Chronic) Goals of care, counseling/discussion (Acute) History of breast cancer (Chronic) metastatic, with lymphatic spread and bone mets Hyperlipidemia (Acute) Hypopituitarism (Chronic) Hypothyroidism (Chronic) Influenza B (Acute) Iron deficiency anemia (Acute) Metastatic breast cancer (Chronic) Obesity (Chronic) Obstructive sleep apnea (Chronic) per [facility] records Palliative care patient (Chronic) Pneumonia (Acute) POLST (Physician Orders for Life-Sustaining Treatment) (Acute) done 03/26/19; sent to [facility], [place], original to her Restless leg syndrome (Acute) Spinal stenosis (Acute) Stage IV breast cancer in female (Chronic) Uncontrolled pain (Resolved) Social History Smoking/Tobacco Use Status: Former Tobacco Use Alcohol Intake: never Drug use: Never Substance use type: does not use Caregiver/Support person: Yes Household members: children Number of Children: 2 Communication Needs: Hard of Hearing and Corrective Lenses Education Level: middle school Do you need help understanding health information?: Always current occupation: on disability What is your relationship status?: How often do you talk on the phone with friends or family?: once per week How often do you get together with friends or relatives?: three or more times per week Panel score (0-1 are the most socially isolated patients): 1 What type of physical activity do you participate in: none, sedentary lifestyle, wheelchair-bound and additional Details: needs a new wheelchair, cannot walk far, just a few steps Special pedro pablo needs: No Do you feel safe at home: Yes Do you feel safe in your relationship?: Yes Additional Social history: , with 2 children. She is not working and on disability. Has a history of tobacco, quit in 1992. Reports rare use of alcohol only. Lives with daughter. Uses a walker to ambulate. Hard to do recently, depending more on WC. In a lot of pain. Recent scans show progression of breast cancer. Exam Narrative Exam Narrative: Is a 59-year-old patient presenting to the emergency room today for complaints of diarrhea and nausea for the last 2 days now associated with weakness in the last 24 hours. Family concerned as she typically will quickly decline once she develops weakness. Patient reports she was recently discharged from the hospital after urinary tract infection and recently completed her course of antibiotics this week. Patient is concerned as she is had 6 episodes of diarrhea in the last 2 days and has a recent history of C. difficile 4 months ago. Patient is concerned she is redeveloping C. difficile. Patient denies associated abdominal or back pain. Denies fever, chills. Patient is eating and drinking without difficulty although has mild decrease in appetite in the last 24 hours. Patient denies headache, dizziness, chest pain. Patient again is predominantly concerned with the possibility of C. difficile today. Patient denies any dysuria or new urinary tract symptoms. 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 Patient reports pain in the area due to cancer. Patient denies any change. Patient does a history of chronic adrenal insufficiency, chronic pain, chronic respiratory hypoxia as well as COPD occasionally requiring oxygen at home. History of depression, diabetes, hyperlipidemia, hypopituitary is him, hypothyroidism, anemia, obesity which is noted predominantly central obesity, spinal stenosis, sleep apnea. On exam patient has clear breath sounds bilaterally, initial O2 sat noted to be 88 however at the bedside she is approximately 95 improves to 98 with a few liters of oxygen nasal cannula. Again patient has no respiratory complaints at this time she reports this to be her baseline. Patient has notable central obesity however has no significant abdominal pain on palpation, patient does report increase in bowel sounds, gurgling for the last 2 days since onset of symptoms but again benign abdominal exam is noted with no peritoneal signs at this time. No CVA tenderness noted. Patient has chronic peripheral skin changes in the lower extremities which appears unchanged and is patient's baseline. Denies any new swelling of the lower legs or pain. Patient's vital signs reviewed. We will check baseline labs as well C. difficile testing and urinalysis. Will recommend IV fluids given patient's complaint of weakness and recent diarrhea to be sure patient is well hydrated. Patient denies any history of congestive heart failure, none listed in her medical chart. Will provide 1 L of fluid. Patient's initial labs reveal no significant leukocytosis, BUN and creatinine at patient's baseline, blood sugar is mildly elevated. Of note patient did report an episode of hypoglycemia last evening. She reports her blood sugar at home was approximately 70 then when rechecked was 60 she required dextrose tabs and had pumpkin pie. Patient reports blood sugars improved this morning. Patient's urinalysis is consistent with urinary tract infection currently 2 months patient with leukocyte esterase small amount positive, small blood and greater than 50 white blood cells noted on differential. Will send for urine culture. Patient C. difficile testing is positive today. Discussed patient's C. difficile result being positive. Initial dose of vancomycin orally was ordered. Patient agrees with this plan of care. Discussed admission versus outpatient management. Patient and family both feel inpatient admission is best plan of action at this time as patient is moderately weak today and they did have difficulty transitioning her and if she continues to decline in the next few days they will be unable to transfer her. Patient's preference is hospital admission until feeling stronger. Patient did have a brief episode of hypotension in the ER however blood pressures improved with fluids. Patient reports low blood pressure is typical for her. Patient denies any dizziness associated. Again continues to deny chest pain or abdominal pain. Spoke with the hospitalist who agrees with plan of care and admission for C. difficile management and weakness. Course Vital Signs Vital signs: Vital Signs Temperature 37.2 C 05/06/19 10:28 Pulse 104 H 03/05/20 10:28 Blood Pressure 133/66 05/06/19 10:28 Pulse Oximetry 88 L 05/06/19 10:28 Temperature 36.4 C L 05/08/19 07:24 Temperature Source Tympanic 05/08/19 07:24 Pulse 60 05/08/19 07:24 Pulse Rhythm Regular 05/08/19 08:45 Respiratory Rate 16 05/08/19 07:24 Respiratory Effort 05/08/19 08:45 Respiratory Depth Normal 05/08/19 08:45 Respiratory Pattern Normal 05/08/19 08:45 Blood Pressure 122/78 05/08/19 07:24 Blood Pressure Mean 74 05/06/19 15:30 Blood Pressure Position Sitting 05/06/19 12:06 Pulse Oximetry 96 05/08/19 08:44 Oxygen Delivery Method Nasal Cannula 05/08/19 08:44 Oxygen Flow Rate 2.5 05/08/19 08:44 Pain Level 0 05/08/19 07:24 Lab/Test Results Lab/Test Results: 05/06/19 12:24 Urine - Clean Catch Urine Culture - Preliminary YEAST 05/06/19 12:00 Stool Clostridioides difficile Screen - Final 05/06/19 12:10 Nasopharynx Influenza Types A,B Antigen - Final Laboratory Tests Range/Units 05/06/19 05/06/19 05/06/19 11:43 11:43 11:43 WBC (4.4-10.8) k/cumm 5.20 RBC (4.00-5.20) m/cumm 3.27 L Hgb (12.0-15.5) g/dL 9.8 L Hct (36.0-46.0) % 30.4 L MCV (80-95) fL 93.0 MCH (27.0-33.0) pg 30.0 MCHC (32.0-36.0) g/dL 32.2 RDW (11.7-14.6) % 15.7 H Plt Count (130-400) x1000/uL 230 MPV (8.0-11.0) fL 8.9 Immature Gran % % 0.2 Neutrophils % 73.6 Lymphocytes % 17.5 Monocytes % 7.7 Eosinophils % 0.8 Basophils % 0.2 Absolute Neutrophils (1.2-6.7) k/cumm 3.83 Absolute Lymphocytes (1.2-3.4) k/cumm 0.91 L Absolute Monocytes (0.11-0.7) k/cumm 0.40 Absolute Eosinophils (0.0-0.7) k/cumm 0.04 Absolute Basophils (0.0-0.2) k/cumm 0.01 Sodium (136-145) mmol/L 135 L Potassium (3.5-5.1) mmol/L 4.2 Chloride (98-107) mmol/L 98 Carbon Dioxide (21.0-32.0) mmol/L 29.6 Anion Gap (3-11) mmol/L 7.4 BUN (7-18) mg/dL 15 Creatinine (0.55-1.02) mg/dL 1.36 H Estimated GFR/1.73 m2 (mL/min/1.73m2) 39.66 Glucose (74-106) mg/dL 286 H Lactate (0.6-1.4) mmol/L 2.0 H Calcium (8.5-10.1) mg/dL 8.7 Total Bilirubin (0.2-1.0) mg/dL 0.3 AST (15-37) U/L 21 ALT (14-59) U/L 13 L Alkaline Phosphatase (46-116) U/L 130 H Total Protein (6.4-8.2) g/dL 7.2 Albumin (3.4-5.0) g/dL 2.8 L Urine Color (Yellow) Urine Clarity (Clear) Urine pH (5-8) Ur Specific Broussard (1.005-1.025) Urine Protein (Negative) mg/dL Urine Ketones (Negative) mg/dL Urine Blood (Negative) Urine Nitrite (Negative) Urine Bilirubin (Negative) Urine Urobilinogen (Up TO 0.2) EU/dL Ur Leukocyte Esterase (Negative) Urine RBC (0-2) HPF Urine WBC (0-5) HPF Ur Epithelial Cells (Negative) HPF Urine Crystals (Negative) HPF Urine Bacteria (Negative) HPF Urine Casts (Negative) LPF Urine Mucus (Negative) Urine Other (Negative) Ur Culture Indicated? Urine Glucose (Negative) mg/dL Range/Units 05/06/19 12:24 WBC (4.4-10.8) k/cumm RBC (4.00-5.20) m/cumm Hgb (12.0-15.5) g/dL Hct (36.0-46.0) % MCV (80-95) fL MCH (27.0-33.0) pg MCHC (32.0-36.0) g/dL RDW (11.7-14.6) % Plt Count (130-400) x1000/uL MPV (8.0-11.0) fL Immature Gran % % Neutrophils % Lymphocytes % Monocytes % Eosinophils % Basophils % Absolute Neutrophils (1.2-6.7) k/cumm Absolute Lymphocytes (1.2-3.4) k/cumm Absolute Monocytes (0.11-0.7) k/cumm Absolute Eosinophils (0.0-0.7) k/cumm Absolute Basophils (0.0-0.2) k/cumm Sodium (136-145) mmol/L Potassium (3.5-5.1) mmol/L Chloride (98-107) mmol/L Carbon Dioxide (21.0-32.0) mmol/L Anion Gap (3-11) mmol/L BUN (7-18) mg/dL Creatinine (0.55-1.02) mg/dL Estimated GFR/1.73 m2 (mL/min/1.73m2) Glucose (74-106) mg/dL Lactate (0.6-1.4) mmol/L Calcium (8.5-10.1) mg/dL Total Bilirubin (0.2-1.0) mg/dL AST (15-37) U/L ALT (14-59) U/L Alkaline Phosphatase (46-116) U/L Total Protein (6.4-8.2) g/dL Albumin (3.4-5.0) g/dL Urine Color (Yellow) Yellow Urine Clarity (Clear) Sl cloudy Urine pH (5-8) 5.5 Ur Specific Broussard (1.005-1.025) 1.020 Urine Protein (Negative) mg/dL 30 H Urine Ketones (Negative) mg/dL Negative Urine Blood (Negative) Small H Urine Nitrite (Negative) Negative Urine Bilirubin (Negative) Negative Urine Urobilinogen (Up TO 0.2) EU/dL 0.2 Ur Leukocyte Esterase (Negative) Small H Urine RBC (0-2) HPF 10-20 H Urine WBC (0-5) HPF >50 H Ur Epithelial Cells (Negative) HPF Few Urine Crystals (Negative) HPF Negative Urine Bacteria (Negative) HPF Many Urine Casts (Negative) LPF >50 coarse granular Urine Mucus (Negative) Trace Urine Other (Negative) Many yeast Ur Culture Indicated? C&s done as ordered Urine Glucose (Negative) mg/dL 100
[2019-05-08 11:37] VITALS: BP 126/68; PULSE 64; RESP 18; TEMP 36; O2SAT 94
[2019-05-08] MEDS: Hydrocortisone 10 MG TAB 5 MG PO (11:42)
--- NOTE | 2019-05-08 11:56 | PT.INTREAT ---
PT Notes Visit Reasons: RECURRENT C. DIFF Pt refused x2
--- NOTE | 2019-05-08 12:03 | DSE_ITS ---
Date of service: 05/08/19 Time of Service: 12:03 DS: Diagnosis Discharge Diagnosis (1) C. difficile colitis: Start date: 05/08/19 Start time: 12:03 Status: Acute Asessment and Plan: No BM since . Continue taper vanco, if reoccurrence consider Dificid. Continue flagyl. Follow up with PCP in 1 week will give taper for vanco with follow up by PCP. Probiotic, pepcid, questran as needed. Follow up with [facility] (2) Adrenal insufficiency: Start date: 05/08/19 Start time: 12:06 Status: Chronic Asessment and Plan: Resolved. Continue steroid taper until baseline dose. (3) Stage IV breast cancer in female: Start date: 05/08/19 Start time: 12:06 Status: Chronic Asessment and Plan: on oral chemo, continue (4) Diabetes mellitus: Start date: 05/08/19 Start time: 12:07 Status: Chronic Asessment and Plan: Continue fingersticks and home regimen of insulin Discharge Plan Disposition Patient Disposition: HOME Condition: Improving Discharge Details Chief Complaint: Abd Prob Reason For Visit: RECURRENT C. DIFF Admit Date/Time: 05/06/19 14:14 Admit Provider: Sheyla Reno Attending Provider: Sheyla Reno Primary Care Provider: ANNA TORO ED Provider: Scarlett Jama Hospital Course Hospital Course: 59 y.o female PMH 3 episodes c-diff, breast ca on oral therapy, UTI with bactermia, adrenal insufficiency, IDDM2 admitted from [facility] ED after cc of 2 days pasty diarrhea without fevers, abd. pain or nausea. She was found to have a positive antigen and toxin for cdiff and started on vancomycin with IV flagyl. This is her 4th round of c-diff, she will be treated with both po flagyl and v anco taper per guidelines. She has a follow up appt with [facility] to discuss fecal transplant. On admission she was in acute on chronic adrenal insufficiency, today her electrolytes have normalized she will be discharged with PO taper of steroids. She feels well. She did not present with symptoms of UTI this admission however her urine culture grew yeast greater than 100,000 colonies. She will be treated with fluconizole 200 mg daily x 2 weeks for yeast given her risk for bacteremia and immune suppression. She states no BM since , she feels well and is agreeable to discharge. She denies CP, SOB, N/V/D Home Meds and New Rx's Prescriptions: New hydrocortisone 20 mg tablet 20 mg PO DAILY Qty: 29 RF: 0 fluconazole 200 mg tablet 200 mg PO DAILY Qty: 14 RF: 0 metronidazole [Flagyl] 500 mg tablet 500 mg PO TID Qty: 27 RF: 0 vancomycin [Vancocin] 125 mg capsule 125 mg PO QID Qty: 56 RF: 0 vancomycin [Vancocin] 125 mg capsule 125 mg PO BID Qty: 14 RF: 0 vancomycin [Vancocin] 125 mg capsule 125 mg PO DAILY Qty: 7 RF: 0 vancomycin [Vancocin] 125 mg capsule 125 mg PO .Q2-3D Qty: 16 RF: 0 Continued pregabalin [Lyrica] 200 MG capsule 200 mg PO TID RF: 0 montelukast [Singulair] 10 MG tablet 10 mg PO DAILY RF: 0 cetirizine [Zyrtec] 10 MG tablet 10 mg PO DAILY RF: 0 ferrous sulfate 325 MG tablet 325 mg PO TID RF: 0 carbamazepine 200 MG tablet 200 mg PO BID RF: 0 atorvastatin [Lipitor] 20 MG tablet 40 mg PO HS RF: 0 cyanocobalamin (vitamin B-12) [Vitamin B-12] 1,000 MCG tablet 1,000 mcg PO DAILY RF: 0 folic acid 1 MG tablet 1 mg PO DAILY RF: 0 Spiriva Respimat 4 GM mist 1 puff Inhalation DAILY RF: 0 budesonide-formoterol [Symbicort] 10.2 GM HFA aerosol inhaler 2 puff Inhalation BID RF: 0 ondansetron HCl [Zofran] 8 MG tablet 8 mg PO TID PRNRF: 0 hydrocortisone 5 mg Tablet 5 mg PO QNOON RF: 0 levothyroxine 150 mcg Tablet 150 mcg PO DAILY RF: 0 hydrocortisone 10 mg Tablet 20 mg PO QAM RF: 0 Trulicity 1.5 mg/0.5 mL Pen Injector 1.5 mg SUBCUT QWEEK RF: 0 benzonatate 200 mg Capsule 200 mg PO TID PRN (Reason: cough) Qty: 15 RF: 0 guaifenesin [Mucinex] 600 mg Tablet Extended Release 12hr 600 mg PO BID Qty: 10 RF: 0 Cholestyramine Light 4 gram Powder 4 g PO BID PRNRF: 0 Humulin R U-500 (Conc) Kwikpen 500 unit/mL (3 mL) Insulin Pen 30 unit SUBCUT QNOON Qty: 0 RF: 0 Humulin R U-500 (Conc) Kwikpen 500 unit/mL (3 mL) Insulin Pen 70 unit SUBCUT QAM Qty: 0 RF: 0 Humulin R U-500 (Conc) Kwikpen 500 unit/mL (3 mL) Insulin Pen 30 unit SUBCUT QPM Qty: 0 RF: 0 fentanyl 50 mcg/hr patch 72 hour 1 patch TD Q72H Qty: 2 RF: 0 loratadine 10 mg Tablet 10 mg PO DAILY RF: 0 duloxetine [Cymbalta] 60 mg Capsule,Delayed Release(Dr/Ec) 60 mg PO HS RF: 0 letrozole 2.5 mg Tablet 2.5 mg PO DAILY RF: 0 Prevalite 4 gram Powder In Packet 4 g PO BID@1000,2000 PRN (Reason: prn diarrhea) Qty: 10 RF: 0 ranitidine HCl 300 mg capsule 300 mg PO QHS Qty: 30 RF: 0 Lactobacillus acidophilus Capsule 1,000 mmu cells PO DAILY Qty: 30 RF: 0 hydrocodone-acetaminophen 5-325 mg Tablet 2 tab PO Q4H PRN PRNQty: 5 RF: 0 Discharge Instructions Instructions: Urinary Tract Infection in Women (DC), Secondary Adrenal Insufficiency (DC), Infectious Colitis (GEN) Additional Instructions: Follow up with your PCP in 1 week. Follow up with [facility] for possible stool transplant. YOUR PRESCRIPTIONS WILL BE READY AT [facility] New medications prescribed: Vancomycin pulsed-tapered regimen: 125 mg orally 4 times daily for 10 to 14 days, then 125 mg orally twice daily for 7 days, then 125 mg orally once daily for 7 days, then 125 mg orally every 2 or 3 days for 2 to 8 weeks, Fluconzaole 200 mg daily x 14 days, for yeast infection in your urine. Hydrocortisone: 100 mg po x 2 days 75 mg po x 3 days 50 mg po x 3 days Resume 25 mg daily Stand Alone Forms: Nursing Discharge Form Referrals: [facility] [Other] (Please go to your schdulded appointment [facility]. ) ANNA TORO [Primary Care Provider] - (Please call PCP office on Friday to make a 1 week follow up appointment. ) Activity:: Activity as Tolerated Equipment/Supplies:: No Equipment Needed Diet:: Carb Counting Discharge Orders Discharge Orders: Discharge Order (Routine); Ordered 05/08/19 Ordered By: Ami Sanchez DS: Summary Status at Discharge Functional status at discharge: independent ambulation Overall status at discharge: patient is progressing back to baseline Mental Status: mental status grossly normal Speech and Movement: speech and movement normal Mood: congruent mood Affect: normal affect Exam Narrative Exam Narrative: General: Very pleasant, obese female, in great spirits, looks to be at her baseline, A&Ox3 sitting up in chair. HEENT: ATraumatic, normocephalic, EOMI, MMM Cardiovascular: RRR, slightly tachycardic, no m/r/g Lungs: CTAB Gastrointestinal: soft, distended, nontender, + BS Extremities: chronic edema BLE's, no c/c Psych Mental Status: mental status grossly normal Speech and Movement: speech and movement normal Mood: congruent mood Affect: normal affect DS: Data Vitals/I&O Vitals and I&O: Vital Signs Temperature 36 C L 05/08/19 11:37 Temperature Source Tympanic 05/08/19 11:37 Pulse 64 05/08/19 11:37 Pulse Rhythm Regular 05/08/19 08:45 Respiratory Rate 18 05/08/19 11:37 Respiratory Effort 05/08/19 08:45 Respiratory Depth Normal 05/08/19 08:45 Respiratory Pattern Normal 05/08/19 08:45 Blood Pressure 126/68 05/08/19 11:37 Blood Pressure Mean 74 05/06/19 15:30 Blood Pressure Position Sitting 05/06/19 12:06 Pulse Oximetry 94 L 05/08/19 11:37 Oxygen Delivery Method Room Air 05/08/19 11:37 Oxygen Flow Rate 0 05/08/19 11:37 Pain Level 0 05/08/19 11:37 Intake & Output 05/07/19 05/08/19 05/08/19 23:59 11:59 23:59 Intake Total 620 / 2237.5 140 / 140 Balance 620 / 2237.5 140 / 140 Intake: IV 320 / 1697.5 140 / 140 Oral 300 / 540 Other: Urine Color Yellow Urine Odor Normal Comment Incontinent large amount of urine Voiding Methods Incontinent Data Completed and Pending Labs on day of discharge: Labs from last 24 hours 05/08/19 05/08/19 06:15 06:15 WBC 4.93 D RBC 3.15 L Hgb 9.3 L Hct 29.2 L MCV 92.7 MCH 29.5 MCHC 31.8 L RDW 14.8 H Plt Count 222 MPV 9.4 Immature Gran % 0.2 Neutrophils % 72.2 Lymphocytes % 21.3 Monocytes % 5.9 Eosinophils % 0.2 Basophils % 0.2 Absolute Neutrophils 3.56 Absolute Lymphocytes 1.05 L Absolute Monocytes 0.29 Absolute Eosinophils 0.01 Absolute Basophils 0.01 Sodium 138 Potassium 4.2 Chloride 102 Carbon Dioxide 30.2 Anion Gap 5.8 BUN 20 H Creatinine 1.04 H Estimated GFR/1.73 m2 54.05 Glucose 219 H D Calcium 8.0 L Magnesium 2.0 Preliminary micro results at discharge 05/06/19 21:36 Blood Culture - Preliminary Blood NO GROWTH 24 HOURS 05/06/19 21:25 Blood Culture - Preliminary Blood NO GROWTH 24 HOURS [facility] Medical History C. difficile diarrhea (Acute) Cancer related pain (Chronic) much improved with fentanyl patch Carpal tunnel syndrome (Acute) Chronic adrenal insufficiency (Acute) Chronic pain (Chronic) Chronic respiratory failure with hypoxia (Chronic) Chronic venous stasis dermatitis (Chronic) COPD (chronic obstructive pulmonary disease) (Chronic) On nocturnal oxygen - 2L prn Depression (Chronic) Diabetes mellitus (Chronic) Insulin dependent Diverticulosis (Acute) Dyslipidemia (Chronic) Goals of care, counseling/discussion (Acute) History of breast cancer (Chronic) metastatic, with lymphatic spread and bone mets Hyperlipidemia (Acute) Hypopituitarism (Chronic) Hypothyroidism (Chronic) Influenza B (Acute) Iron deficiency anemia (Acute) Metastatic breast cancer (Chronic) Obesity (Chronic) Obstructive sleep apnea (Chronic) per [facility] records Palliative care patient (Chronic) Pneumonia (Acute) POLST (Physician Orders for Life-Sustaining Treatment) (Acute) done 03/26/19; sent to [facility], [facility], [facility], original to her Restless leg syndrome (Acute) Spinal stenosis (Acute) Stage IV breast cancer in female (Chronic) Uncontrolled pain (Resolved) Social History Smoking/Tobacco Use Status: Former Tobacco Use Alcohol Intake: never Drug use: Never Substance use type: does not use Caregiver/Support person: Yes Household members: children Number of Children: 2 Communication Needs: Hard of Hearing and Corrective Lenses Education Level: middle school Do you need help understanding health information?: Always current occupation: on disability What is your relationship status?: How often do you talk on the phone with friends or family?: once per week How often do you get together with friends or relatives?: three or more times per week Panel score (0-1 are the most socially isolated patients): 1 What type of physical activity do you participate in: none, sedentary lifestyle, wheelchair-bound and additional Details: needs a new wheelchair, cannot walk far, just a few steps Special pedro pablo needs: No Do you feel safe at home: Yes Do you feel safe in your relationship?: Yes Additional Social history: , with 2 children. She is not working and on disability. Has a history of tobacco, quit in 1992. Reports rare use of alcohol only. Lives with daughter. Uses a walker to ambulate. Hard to do recently, depending more on WC. In a lot of pain. Recent scans show progression of breast cancer.
[2019-05-08] MEDS: Heparin 500 UNITS/5 ML SYRINGE IVP (13:39)
--- NOTE | 2019-05-08 15:30 | PDOC.CMDIS ---
LACE Index Scoring Tool - Questions: Length of Stay (in days): 2 Acuity (Admit via E.D.?): Yes Comorbidities: Diabetes w/o Complication, Chronic Pulmonary Disease, Mild Liver/Renal Disease, Any Tumor E.D. Visits: 6 - Answers: Total Score: 14 Risk of Readmission: High Risk Care Management Discharge Reason for Hospitalization: C. difficile colitis Discharge Plan: Candace will be discharged home with a resumption of home health services. She will follow up with her oncologist, PCP and discharge plan as prescribed. CM will continue to support patient, family and discharge planning concerns. Patient/Family Education Needs: Review discharge instructions, discuss Ask Me Three. Services Needed at Discharge: DME Agency (Resume), Home Health Care Services (Resume RN/PT. )
--- NOTE | 2019-05-10 13:05 | PT.INDS ---
Date of service: 05/10/19 PT Notes Visit Reasons: RECURRENT C. DIFF Inpatient Physical Therapy Discharge Summary Dates: 05/10/2019 Dates of Service: 05/07/2019 through 05/08/2019 This is a clinical summary of care provided on the duration of dates listed above. No charge was made in the completion of this documentation. Referring Doctor: Sheyla Reno MD PT Orders: PT CONSULT: Limited ability Precautions: Fall. Enteric contact precautions. Activity as tolerated. Patient Profile/Admitting Diagnosis: Patient is a 59-year-old female with past medical history significant for stage IV breast carcinoma with metastases to the lymphatic system and bones, and renal insufficiency, RAKAN, and cancer related pain who presented to the ED on 05/06/2019 with chief complaints of diarrhea for the past 2 days prior to admission. Patient is diagnosed with C. difficile colitis with referral to skilled physical therapy services to address impairments in strength and activity tolerance. PMHX: Medical History C. difficile diarrhea (Acute) Cancer related pain (Chronic) much improved with fentanyl patch Carpal tunnel syndrome (Acute) Chronic adrenal insufficiency (Acute) Chronic pain (Chronic) Chronic respiratory failure with hypoxia (Chronic) Chronic venous stasis dermatitis (Chronic) COPD (chronic obstructive pulmonary disease) (Chronic) On nocturnal oxygen - 2L prn Depression (Chronic) Diabetes mellitus (Chronic) Insulin dependent Diverticulosis (Acute) Dyslipidemia (Chronic) Goals of care, counseling/discussion (Acute) History of breast cancer (Chronic) metastatic, with lymphatic spread and bone mets Hyperlipidemia (Acute) Hypopituitarism (Chronic) Hypothyroidism (Chronic) Influenza B (Acute) Iron deficiency anemia (Acute) Metastatic breast cancer (Chronic) Obesity (Chronic) Obstructive sleep apnea (Chronic) per [facility] records Palliative care patient (Chronic) Pneumonia (Acute) POLST (Physician Orders for Life-Sustaining Treatment) (Acute) done 03/26/19; sent to [facility], [facility], original to her Restless leg syndrome (Acute) Spinal stenosis (Acute) Stage IV breast cancer in female (Chronic) Uncontrolled pain (Resolved) Surgical History H/O bilateral mastectomy (Acute) H/O colonoscopy with polypectomy (Acute) History of carpal tunnel release of both wrists (Acute) Port-A-Cath in place (Acute) Status post transsphenoidal pituitary resection (Acute) Social History/Home Situation: Candace lives with her daughter in [place], [place] in a two-story house with a ramp to enter with rails on both sides. Patient has stairs to the second floor of the house but has everything she needs on the first floor. She is disabled. She has 2 daughters locally. She receives choices for care highest needs, and her daughter Kiki is her primary provider for 12 years now. [facility] provides assistance with bathing and does meal preapration and assistance with lower body dressing. She was independent with front-wheeled walker for in-house ambulation and uses the 4-wheeled walker for outdoor ambulation. She has to walk about 80-90 feet to get to her car. She is dependent on her daughter for transportation to and from appointments. Daughter also provides assistance with bathing patient's back due to body habitus. Equipment Owned/DME: Bariatric FWW, bariatric hospital bed, bariatric recliner, bariatric front wheeled walker, new bariatric wheelchair with seat and back cushions Subjective: NT Objective: General Observation: NT Mental Status: NT Pain: NT ROM: Right Upper Extremity: Shoulder flexion 90-100 degrees. Elbow flexion WFL. Hands/wrist and fingers are WFL. Left Upper Extremity: Shoulder flexion 90-100 degrees. Elbow flexion WFL. Hands/wrist and fingers are WFL. Right Lower Extremity: Patient is able to bend hip to about 20 degrees beyond 90 while seated at edge of bed. Knee flexion WFL. Dorsiflexion/plantarflexion WFL. Left Lower Extremity: Patient is able to bend hip to about 10 degrees beyond 90 while seated at edge of bed. Knee flexion WFL. Dorsiflexion/plantarflexion WFL. Strength: Right Upper Extremity: Shoulder flexion 3-/5. Elbow flexion 4/5. Footwear Sales Representative strong and functional Left Upper Extremity: Shoulder flexion 3-/5. Elbow flexion 4/5. Footwear Sales Representative strong and functional. Right Lower Extremity: Hip flexion 3-/5. Hip extension 3/5. Knee flexion 4/-5. Knee extension 4-/5. Ankle dorsiflexion/plantarflexion 4/5. Left Lower Extremity: Hip flexion 3-/5. Hip extension 3/5. Knee flexion 4-/5. Knee extension 4-/5. Ankle dorsiflexion/plantarflexion 4/5. Bed Mobility/Transfers: Sit to stand: CGA Stand to sit: CGA Bed to chair: CGA Chair to bed: CGA Gait: Patient tolerated level surface ambulation of 12 feet using front wheeled walker with minimal assist. Decreased julia. Reciprocal step-to gait pattern. Balance: Static Sitting: Normal Dynamic Sitting: Good Static Standing: Fair Dynamic Standing: Fair Assessment: Patient is a 59-year-old female with past medical history significant for stage IV breast carcinoma with metastases to the lymphatic system and bones, and renal insufficiency, RAKAN, and cancer related pain with difficulty with walking, impaired mobility ADL performance, and generalized weakness who presented to the ED on 05/06/2019 with chief complaints of diarrhea for the past 2 days prior to admission. Patient is diagnosed with C. difficile colitis with referral to skilled physical therapy services to address impairments in strength and activity tolerance. Her daughter is her 23/09 caregiver. Her prognosis for regaining prior level of function is fair to good. PT goals was aimed at addressing the following impairment level findings: 1. Decreased range of motion for hip and knees bilaterally 2. Impaired strength to B LE 3. Impaired activity tolerance 4. Decreased balance skills Impairments constipated to the following functional limitations: 1. Increased risk for falls due to balance impairments 2. Limited ambulation distance 3. Need for assistive device for all mobility ADL performance 4. Increased fall risk Goals: Goals X1 week 1. Supine-Sit independent NOT MET 2. Sit-Supine independent NOT MET 3. Sit-Stand independent NOT MET 4. Stand-Sit independent NOT MET 5. Bed-Chair independent NOT MET 6. Chair-Bed independent NOT MET 7. Gait indoor and outdoor ambulation using FWW for at least 200 feet NOT MET 8. Independent with home exercise program NOT MET 9. Static/dynamic standing balance/tolerance good NOT MET DISCHARGE RECOMMENDATIONS: Patient will benefit from home health PT services in order to progress mobility level using four-wheeled walker, assess home safety, identify additional equipment needs, and cotninue with a functional maintenance program that will increase ability of patient to remain at home with daughter. TREATMENT CODE/TIME: NC. Thank you very much for this referral. Allie Miguel PT, DPT, CLT [facility] Inpatient PT at [place], [place]
== END 2019-05-08 14:17 | disposition home or self-care (01) | DRG 372 ==
LOC: ER 14:50 → MS 15:50
PROVIDERS: Internal Medicine; Admitting Provider Internal Medicine; Emergency Provider Physician Assistant; PCP Nurse Practitioner Family; Visit Provider Internal Medicine
DX: J96.11 Chronic respiratory failure with hypoxia; C77.9 Secondary and unspecified malignant neoplasm of lymph node, unspecified; C79.51 Secondary malignant neoplasm of bone; E23.0 Hypopituitarism; E27.49 Other adrenocortical insufficiency; Z68.43 Body mass index [BMI] 50.0-59.9, adult; E87.1 Hypo-osmolality and hyponatremia; C50.919 Malignant neoplasm of unspecified site of unspecified female breast; Z87.440 Personal history of urinary (tract) infections; Z79.899 Other long term (current) drug therapy; I87.8 Other specified disorders of veins; J44.9 Chronic obstructive pulmonary disease, unspecified; Z99.81 Dependence on supplemental oxygen; F32.9 Major depressive disorder, single episode, unspecified; E78.5 Hyperlipidemia, unspecified; G89.3 Neoplasm related pain (acute) (chronic); E03.9 Hypothyroidism, unspecified; D50.9 Iron deficiency anemia, unspecified; G25.81 Restless legs syndrome; Z87.891 Personal history of nicotine dependence; Z66 Do not resuscitate; E66.8 Other obesity; A04.71 Enterocolitis due to Clostridium difficile, recurrent
CPT/HCPCS: 36410; 36415; 36591; 51701; 80048; 80053; 84145; 87040; 87449; 94640; 96361; 96374; 97162; 99223; 99232; 99239; 99285; 81003; 81015; 83605; 83735; 85025; 87086; 87324; 99284; J1644; J1720

== ENCOUNTER 2019-06-11 20:04 | Emergency (ER) | payer MEDICARE, MEDICAID, SELFPAY ==
[2019-06-11 20:19] VITALS: BP 120/67; PULSE 88; RESP 16; TEMP 36.6; O2SAT 94
--- NOTE | 2019-06-11 20:40 | ED.GENADUL_ITS ---
Discharge Plan Disposition Patient Disposition: HOME Condition: Stable Discharge Details Chief Complaint: Nk/Back Pain Clinical Impression: Urinary tract infection Primary Care Provider: ANNA TORO ED Provider: Kenia Melgoza Home Meds and New Rx's Prescriptions: New cephalexin 500 mg tablet 500 mg PO BID 7 Days Qty: 14 RF: 0 Continued pregabalin [Lyrica] 200 MG capsule 200 mg PO TID RF: 0 montelukast [Singulair] 10 MG tablet 10 mg PO DAILY RF: 0 cetirizine [Zyrtec] 10 MG tablet 10 mg PO DAILY RF: 0 ferrous sulfate 325 MG tablet 325 mg PO TID RF: 0 carbamazepine 200 MG tablet 200 mg PO BID RF: 0 atorvastatin [Lipitor] 20 MG tablet 40 mg PO HS RF: 0 cyanocobalamin (vitamin B-12) [Vitamin B-12] 1,000 MCG tablet 1,000 mcg PO DAILY RF: 0 folic acid 1 MG tablet 1 mg PO DAILY RF: 0 Spiriva Respimat 4 GM mist 1 puff Inhalation DAILY RF: 0 budesonide-formoterol [Symbicort] 10.2 GM HFA aerosol inhaler 2 puff Inhalation BID RF: 0 ondansetron HCl [Zofran] 8 MG tablet 8 mg PO TID PRNRF: 0 hydrocortisone 5 mg Tablet 5 mg PO QNOON RF: 0 levothyroxine 150 mcg Tablet 150 mcg PO DAILY RF: 0 Trulicity 1.5 mg/0.5 mL Pen Injector 1.5 mg SUBCUT QWEEK RF: 0 benzonatate 200 mg Capsule 200 mg PO TID PRN (Reason: cough) Qty: 15 RF: 0 guaifenesin [Mucinex] 600 mg Tablet Extended Release 12hr 600 mg PO BID Qty: 10 RF: 0 Cholestyramine Light 4 gram Powder 4 g PO BID PRNRF: 0 Humulin R U-500 (Conc) Kwikpen 500 unit/mL (3 mL) Insulin Pen 30 unit SUBCUT QNOON Qty: 0 RF: 0 Humulin R U-500 (Conc) Kwikpen 500 unit/mL (3 mL) Insulin Pen 70 unit SUBCUT QAM Qty: 0 RF: 0 Humulin R U-500 (Conc) Kwikpen 500 unit/mL (3 mL) Insulin Pen 30 unit SUBCUT QPM Qty: 0 RF: 0 fentanyl 50 mcg/hr patch 72 hour 1 patch TD Q72H Qty: 2 RF: 0 loratadine 10 mg Tablet 10 mg PO DAILY RF: 0 duloxetine [Cymbalta] 60 mg Capsule,Delayed Release(Dr/Ec) 60 mg PO HS RF: 0 letrozole 2.5 mg Tablet 2.5 mg PO DAILY RF: 0 Prevalite 4 gram Powder In Packet 4 g PO BID@1000,2000 PRN (Reason: prn diarrhea) Qty: 10 RF: 0 ranitidine HCl 300 mg capsule 300 mg PO QHS Qty: 30 RF: 0 Lactobacillus acidophilus Capsule 1,000 mmu cells PO DAILY Qty: 30 RF: 0 hydrocodone-acetaminophen 5-325 mg Tablet 2 tab PO Q4H PRN PRNQty: 5 RF: 0 metronidazole [Flagyl] 500 mg tablet 500 mg PO TID Qty: 27 RF: 0 vancomycin [Vancocin] 125 mg capsule 125 mg PO DAILY Qty: 7 RF: 0 vancomycin [Vancocin] 125 mg capsule 125 mg PO .Q2-3D Qty: 16 RF: 0 Discharge Instructions Instructions: Urinary Tract Infection in Women (ED) Additional Instructions: Follow up with primary care provider in 3-5 days. Return to ED sooner if any worsening or concerns. Increase oral fluids. Take medications as directed. You were given your first dose of antibiotic here in the department tonight so begin your twice a day antibiotic tomorrow. Return if greater than 7-10 episodes of diarrhea a day, increased abdominal pain, fever, vomiting. Referrals: ANNA TORO [Primary Care Provider] - Medical Decision Making 59-year-old female presents with weakness right flank pain diarrhea and weakness. She does have a history of C. difficile diagnosed approximately 1 month ago she states that she has 4-6 episodes of diarrhea day. Associated with abdominal bloating. She also is concerned for UTI. No chest pain, no cough no shortness of breath. She lives with her daughter who is her caregiver. She has a history of hypoglycemia hypokalemia stage IV breast cancer sepsis, obesity, COPD, diabetes. 2215: Spoke with patient's daughter Bhargavi who is her caregiver relayed information that patient is due to be discharged home soon as she does have a UTI. Daughter states that she will call Dr. Kitchen with [facility] regarding increasing her vancomycin dose while on current antibiotics. Instructed to follow-up with her primary care for this to return if any worsening fever vomiting or any concerns. At this time patient's labs are largely at baseline, no leukocytosis, patient remained afebrile while in department. She is received approximately 500 cc of normal saline and she is states upon reevaluation that she feels better. At this time I feel it is safe for her to be discharged home. Antibiotic order cephalexin 500 mg twice daily x7 days first dose given in d epartment. Patient remained hemodynamically stable throughout her stay ambulated without difficulty upon discharge. C. difficile order requisition filled out for outpatient stool collection. Differential diagnosis includes kidney stone, pyelonephritis, worsening C. difficile, gastroenteritis, dehydration, electrolyte abnormality. This text was generated using [employer] system, please disregard any oddities of phrase or misspellings. HPI General Mode of arrival: wheelchair . Date/Time Provider Initiated Documentation: 06/11/19 20:24 . Limitations to Documentation: no limitations . Information obtained by: patient . HPI Narrative: 59-year-old female presents with weakness right flank pain diarrhea and weakness. She does have a history of C. difficile diagnosed approximately 1 month ago she states that she has 4-6 episodes of diarrhea day. Associated with abdominal bloating. She also is concerned for UTI. No chest pain, no cough no shortness of breath. She lives with her daughter who is her caregiver. She has a history of hypoglycemia hypokalemia stage IV breast cancer sepsis, obesity, COPD, diabetes. Related Data Home Medications Medication Instructions Recorded Confirmed Spiriva Respimat 1 puff INHALATION DAILY 04/03/17 06/11/19 atorvastatin [Lipitor] 40 mg PO HS 04/03/17 06/11/19 budesonide-formoterol [Symbicort] 2 puff INHALATION BID 04/03/17 06/11/19 carbamazepine 200 mg PO BID 04/03/17 06/11/19 cetirizine [Zyrtec] 10 mg PO DAILY 04/03/17 06/11/19 cyanocobalamin (vitamin B-12) 1,000 mcg PO DAILY 04/03/17 06/11/19 [Vitamin B-12] ferrous sulfate 325 mg PO TID 04/03/17 06/11/19 folic acid 1 mg PO DAILY 04/03/17 06/11/19 montelukast [Singulair] 10 mg PO DAILY 04/03/17 06/11/19 ondansetron HCl [Zofran] 8 mg PO TID PRN 04/03/17 06/11/19 pregabalin [Lyrica] 200 mg PO TID 04/03/17 06/11/19 Trulicity 1.5 mg SUBCUT QWEEK 05/06/18 06/11/19 hydrocortisone 5 mg PO QNOON 05/06/18 06/11/19 levothyroxine 150 mcg PO DAILY 05/06/18 06/11/19 benzonatate 200 mg PO TID PRN #15 cap 05/10/18 06/11/19 guaifenesin [Mucinex] 600 mg PO BID #10 tab 05/10/18 06/11/19 duloxetine [Cymbalta] 60 mg PO HS 02/02/19 06/11/19 loratadine 10 mg PO DAILY 02/02/19 06/11/19 Lactobacillus acidophilus 1,000 mmu cells PO DAILY #30 cap 02/04/19 06/11/19 Prevalite 4 g PO BID@1000,2000 PRN #10 each 02/04/19 06/11/19 letrozole 2.5 mg PO DAILY 02/04/19 06/11/19 ranitidine HCl 300 mg PO QHS #30 cap 02/04/19 06/11/19 hydrocodone-acetaminophen 2 tab PO Q4H PRN PRN #5 tab 03/28/19 06/11/19 Cholestyramine Light 4 g PO BID PRN 04/16/19 06/11/19 Humulin R U-500 (Conc) Kwikpen 30 unit SUBCUT QNOON #0 ml 04/20/19 06/11/19 Humulin R U-500 (Conc) Kwikpen 30 unit SUBCUT QPM #0 ml 04/20/19 06/11/19 Humulin R U-500 (Conc) Kwikpen 70 unit SUBCUT QAM #0 ml 04/20/19 06/11/19 fentanyl 1 patch TD Q72H #2 each 04/20/19 06/11/19 metronidazole [Flagyl] 500 mg PO TID #27 tab 05/08/19 vancomycin [Vancocin] 125 mg PO .Q2-3D #16 cap 05/08/19 vancomycin [Vancocin] 125 mg PO DAILY #7 cap 05/08/19 06/11/19 cephalexin 500 mg PO BID 7 Days #14 tab 06/11/19 Previous Rx's Medication Instructions Recorded benzonatate 200 mg PO TID PRN #15 cap 05/10/18 guaifenesin [Mucinex] 600 mg PO BID #10 tab 05/10/18 Lactobacillus acidophilus 1,000 mmu cells PO DAILY #30 cap 02/04/19 Prevalite 4 g PO BID@1000,2000 PRN #10 each 02/04/19 ranitidine HCl 300 mg PO QHS #30 cap 02/04/19 hydrocodone-acetaminophen 2 tab PO Q4H PRN PRN #5 tab 03/28/19 Humulin R U-500 (Conc) Kwikpen 30 unit SUBCUT QNOON #0 ml 04/20/19 Humulin R U-500 (Conc) Kwikpen 30 unit SUBCUT QPM #0 ml 04/20/19 Humulin R U-500 (Conc) Kwikpen 70 unit SUBCUT QAM #0 ml 04/20/19 fentanyl 1 patch TD Q72H #2 each 04/20/19 metronidazole [Flagyl] 500 mg PO TID #27 tab 05/08/19 vancomycin [Vancocin] 125 mg PO .Q2-3D #16 cap 05/08/19 vancomycin [Vancocin] 125 mg PO DAILY #7 cap 05/08/19 cephalexin 500 mg PO BID 7 Days #14 tab 06/11/19 Allergies Allergy/AdvReac Type Severity Reaction Status Date / Time bee venom protein (honey bee) Allergy Unknown Unverified 06/11/19 20:23 Latex, Natural Rubber AdvReac Intermediate Unverified 06/11/19 20:23 adhesive tape AdvReac Mild Unverified 06/11/19 20:23 General Stated Complaint: Nk/Back Pain CARMEN: 3 Review of Systems Narrative: Constitutional: Negative for weight loss, alert and oriented, well groomed morbidly obese body habitus, appears comfortable. HEENT: Denies trauma, headaches, blurry vision, nasal discharge, sore throat, trouble swallowing. Chest: Denies chest pain, palpitations, irregular rhythm, hypertension. Respiratory: Denies Shortness of breath, cough, hemoptysis. GI: Reports abdominal bloating, diarrhea, denies nausea or vomiting. : Denies rectal bleeding, positive flank pain, positive increased frequency. Neuro: Denies dizziness, blurry vision, syncope, headache or facial numbness. Positive weakness Hematologic: Denies easy bruising, intolerance to heat or cold, hair loss. [facility] Medical History C. difficile diarrhea (Acute) Cancer related pain (Chronic) much improved with fentanyl patch Carpal tunnel syndrome (Acute) Chronic adrenal insufficiency (Acute) Chronic pain (Chronic) Chronic respiratory failure with hypoxia (Chronic) Chronic venous stasis dermatitis (Chronic) COPD (chronic obstructive pulmonary disease) (Chronic) On nocturnal oxygen - 2L prn Depression (Chronic) Diabetes mellitus (Chronic) Insulin dependent Diverticulosis (Acute) Dyslipidemia (Chronic) Goals of care, counseling/discussion (Acute) History of breast cancer (Chronic) metastatic, with lymphatic spread and bone mets Hyperlipidemia (Acute) Hypopituitarism (Chronic) Hypothyroidism (Chronic) Influenza B (Acute) Iron deficiency anemia (Acute) Metastatic breast cancer (Chronic) Obesity (Chronic) Obstructive sleep apnea (Chronic) per [facility] records Palliative care patient (Chronic) Pneumonia (Acute) POLST (Physician Orders for Life-Sustaining Treatment) (Acute) done 03/26/19; sent to [facility], [facility], [facility], original to her Restless leg syndrome (Acute) Spinal stenosis (Acute) Stage IV breast cancer in female (Chronic) Uncontrolled pain (Resolved) Surgical History H/O bilateral mastectomy (Acute) H/O colonoscopy with polypectomy (Acute) History of carpal tunnel release of both wrists (Acute) Port-A-Cath in place (Acute) Status post transsphenoidal pituitary resection (Acute) Family History Father , age 83 from complications of diabetes Prostate cancer Diabetes Mother , age 79 from complications of Crohn's disease and colitis Crohn's disease Colitis Daughter No problems noted. Daughter No problems noted. Brother No problems noted. Sister Diabetes Obesity Sister No problems noted. Sister No problems noted. Sister No problems noted. Social History Smoking/Tobacco Use Status: Former Tobacco Use Alcohol Intake: never Drug use: Never Substance use type: does not use Caregiver/Support person: Yes Household members: children Number of Children: 2 Communication Needs: Hard of Hearing and Corrective Lenses Education Level: middle school Do you need help understanding health information?: Always current occupation: on disability What is your relationship status?: How often do you talk on the phone with friends or family?: once per week How often do you get together with friends or relatives?: three or more times per week Panel score (0-1 are the most socially isolated patients): 1 What type of physical activity do you participate in: none, sedentary lifestyle, wheelchair-bound and additional Details: needs a new wheelchair, cannot walk far, just a few steps Special pedro pablo needs: No Do you feel safe at home: Yes Do you feel safe in your relationship?: Yes Additional Social history: , with 2 children. She is not working and on disability. Has a history of tobacco, quit in 1992. Reports rare use of alcohol only. Lives with daughter. Uses a walker to ambulate. Hard to do recently, depending more on WC. In a lot of pain. Recent scans show progression of breast cancer. Exam Narrative Exam Narrative: Constitutional: Alert and oriented x3. Appears older than stated age. Obese body habitus. Head: Normocephalic, no trauma. Eyes: Pupils PERRLA, Red reflex noted, EOM's intact. Eyelids symmetrical without lesions, discharge, or swelling. ENT: Bilateral TM's WNL, External ear normal to inspection, no mastoid TTP, swelling, or erythema, Nasal turbinates WNL, no nasal discharge. Normal dentition, Posterior pharynx WNL, no exudate. Chest: RRR, Normal S1, S2, distal pulses intact. Resp: Lungs clear to auscultation bilaterally, no wheezes, rales, or rhonchi. Musculoskeletal: Normal gait, 5/5 strength to all four extremities. Abdomen: Obese, firm, nondistended. Hypoactive bowel sounds. Skin: No suspicious rashes or lesions. Bilateral lower extremities are darkened peripheral vascular disease. Dry. Capillary refill less than 2 sec. Neurologic: Cranial nerves II-XII intact. Alert and oriented x 3. DTR's intact. Hematologic/Lymphatic: No ecchymosis, no lymphadenopathy. Course Vital Signs Vital signs: Vital Signs Temperature 36.6 C 06/11/19 20:19 Pulse 88 06/11/19 20:19 Respiratory Rate 16 06/11/19 20:19 Blood Pressure 120/67 06/11/19 20:19 Pulse Oximetry 94 L 06/11/19 20:19 Temperature 36.6 C 06/11/19 20:19 Temperature Source Skin 06/11/19 20:19 Pulse 88 06/11/19 20:19 Respiratory Rate 16 06/11/19 20:19 Respiratory Effort Non-Labored 06/11/19 20:29 Blood Pressure 120/67 06/11/19 20:19 Pulse Oximetry 94 L 06/11/19 20:19 Oxygen Delivery Method Room Air 06/11/19 20:19 Oxygen Flow Rate 0 06/11/19 20:19 Pain Level 7 06/11/19 20:19
[2019-06-11] MEDS: Normal Saline 1,000 ML 150 ML IV (21:05)
[2019-06-11 21:06] LABS: Abs Immature Grans 0.01 k/cumm (0.0-0.09); Absolute Basophil Count 0.01 k/cumm (0.0-0.2); Absolute Eosinophil Count 0.05 k/cumm (0.0-0.7); Absolute Monocyte Count 0.24 k/cumm (0.11-0.7); Basophils % 0.2; Eosinophils % 1.2; HCT 31.3 % (36.0-46.0); HGB 10.3 g/dL (12.0-15.5); Immature Grans % 0.2 %; Lymphocytes % 36.5; Mean Corp. HGB Concentration 32.9 g/dL (32.0-36.0); Mean Corpuscular Hemoglobin 30.2 pg (27.0-33.0); Mean Corpuscular Volume 91.8 fL (80-95); Mean Platelet Volume 8.8 fL (8.0-11.0); Monocytes % 5.8; Neutrophils % 56.1; Platelet Count 318 x1000/uL (130-400); RBC 3.41 m/cumm (4.00-5.20); RBC Distribution Width 16.4 % (11.7-14.6); White Blood Cell Count 4.11 k/cumm (4.4-10.8)
[2019-06-11 21:07] LABS: Absolute Neutrophil Count 2.31 k/cumm (1.2-6.7)
[2019-06-11 21:19] LABS: ALT 13 U/L (14-59); AST 20 U/L (15-37); Alkaline Phosphatase 113 U/L (46-116); Anion Gap 7.7 mmol/L (3-11); BUN 10 mg/dL (7-18); Bilirubin, Total 0.3 mg/dL (0.2-1.0); CO2 27.3 mmol/L (21.0-32.0); CREATININE 1.29 mg/dL (0.55-1.02); Calcium 8.8 mg/dL (8.5-10.1); Chloride 102 mmol/L (98-107); Estimated GFR 42.16 (mL/min/1.73m2); Glucose 140 mg/dL (74-106); Magnesium 2.1 mg/dL (1.8-2.4); Sodium 137 mmol/L (136-145); Total Protein 7.9 g/dL (6.4-8.2)
[2019-06-11 22:07] LABS: Bilirubin Negative (Negative); Blood Small (Negative); Clarity Cloudy (Clear); Glucose Negative (Negative); Ketones Negative (Negative); Leukocyte Esterase Small (Negative); Nitrite Positive (Negative); Specific Gravity >= 1.030 (1.005-1.025); Urobilinogen 0.2 EU/dL (Up TO 0.2); pH 5.5 (5-8)
[2019-06-11 22:20] LABS: WBC >50 HPF (0-5)
[2019-06-11 22:21] LABS: C & S Indicated? Yes
[2019-06-11] MEDS: Cephalexin 500 MG CAP PO (22:41)
[2019-06-11] MEDS: Heparin 500 UNITS/5 ML SYRINGE (22:41)
[2019-06-11 22:42] VITALS: BP 126/61; PULSE 79; RESP 16; O2SAT 93
[2019-06-15 22:11] LABS: C Difficile PCR Negative (Negative)
== END 2019-06-11 23:05 | disposition home or self-care (01) ==
PROVIDERS: Emergency Provider Registered Nurse Emergency; PCP Nurse Practitioner Family
DX: N39.0 Urinary tract infection, site not specified (principal); B96.20 Unspecified Escherichia coli [E. coli] as the cause of diseases classified elsewhere; Z86.19 Personal history of other infectious and parasitic diseases; J44.9 Chronic obstructive pulmonary disease, unspecified; Z87.891 Personal history of nicotine dependence; E11.9 Type 2 diabetes mellitus without complications; Z79.4 Long term (current) use of insulin
CPT/HCPCS: 80053; 87077; 96360; 96361; 99284; 81003; 81015; 83735; 85025; 87086; 87186; 87798

== ENCOUNTER 2019-06-29 12:55 | Observation (INO) | payer MEDICARE, MEDICAID, SELFPAY ==
[2019-06-29] VITALS (22 sets, daily range): BP systolic 105–131; BP diastolic 42–88; PULSE 73–107; RESP 17–22; TEMP 36.8; O2SAT 69–100
--- NOTE | 2019-06-29 13:00 | DI.CT_ITS ---
EXAM: CT CHEST PE CTA CLINICAL HISTORY: breast cancer, SOB, r/o PE TECHNIQUE: COMPARISON: CT CHEST/ABD/PEL WO from 03/23/2019 FINDINGS: CT angiography of the chest was performed with intravenous infusion of 100 cc of Omnipaque 350. Imag es obtained through the upper abdomen show probable splenomegaly. Visualized portions of liver appea r intact. There is no gross mediastinal or hilar adenopathy. The heart appears mildly enlarged with a small pe ricardial effusion dependently. Thoracic aorta and major branches are unremarkable. There is signif icant motion artifact limiting evaluation of lower lobe pulmonary segmental and subsegmental vessels, no definite pulmonary embolus identified, but there are a couple of tiny questionable subsegmental f illing defects noted and a question of minimal peripheral emboli in subsegmental vessels in left lowe r lobe is raised. The lungs are generally clear. No pleural effusion. IMPRESSION: There is question of a a couple tiny peripheral emboli in left lower lobe subsegmental pulmonary heraclio rial vessels, otherwise the examination is within normal limits.
--- NOTE | 2019-06-29 13:14 | W.ED.GENAD ---
Discharge Plan Disposition Patient Disposition: [facility] INPATIENT Condition: Good Discharge Details Chief Complaint: SOB Clinical Impression: Pulmonary embolism, Acute dyspnea Admit Date/Time: 06/29/19 16:03 Admit Provider: Sheyla Reno Attending Provider: Sheyla Reno Primary Care Provider: ANNA TORO ED Provider: Jairon Olivera Medical Decision Making 59-year-old female with a past medical history of breast cancer currently receiving oral letrozole, as well as recent hospital admission with adrenal insufficiency, diabetes complication, and C. difficile colitis, with still taking oral therapy for her C. difficile but states that her diarrhea has completely resolved. She presents today for evaluation of shortness of breath. She states that for the last 2 to 3 days she has had mild to moderate shortness of breath, productive cough with green and epstein sputum, she denies fever or chills. She denies long trips surgeries or procedures. She denies any calf tenderness. She denies history of blood clots. She denies any chest pain, chest tightness, chest heaviness or pleuritic chest pain. She denies any nausea vomiting or diarrhea. No other complaints at this time. No other modifying factors. Physical exam demonstrates unremarkable vital signs, mild tachycardia. Blood pressure stable. Differential includes PE, pneumonia, less likely coronavirus as she has been self isolating. We will monitor closely, and CTA, laboratory work-up, and reassess. Cardiac etiology unlikely. 4 PM Patient's laboratory work-up is returned, no white count, bandemia or other abnormality, oxygenation stable. Renal function is certainly reduced, however clinical suspicion and concern for PE is notably high. Reduce dye load was used, CT scan was ordered, and does demonstrate evidence of small emboli peripherally in the left lower lobe. proBNP normal which in the [place] no evidence of significant right heart strain, troponin normal, also indicative of no signs of significant strain. Initially the option was discussed for potential outpatient management however because of insurance, medication availability, patient compliance, and patient comorbidities the decision was made to keep the patient here overnight. I did contact the patient's primary care provider about these options and they to requested and recommended inpatient care. Discussed the case with the hospitalist Dr. Reno, she agrees with the assessment and plan the patient will be started on heparin and Coumadin, admitted for further management. I have extensively reviewed the treatment plan with the patient. I have addressed all patient concerns at this time. I have also discussed the plan with the admitting physician and they agree with the current assessment and plan and have agreed to assume responsibility for the patient. All parties demonstrate verbal understanding and agreement with our assessment and plan at this time. EKG 13: 39 Rate 94, intervals normal, sinus rhythm, no significant ST elevations or depressions, patient does demonstrate Q waves in lead III, as well as inverted T waves there as well. However review of prior EKG from 04/16/2019 demonstrates similar findings. IMPRESSION: There is question of a a couple tiny peripheral emboli in left lower lobe subsegmental pulmonary arterial vessels, otherwise the examination is within normal limits. HPI General Date/Time Provider Initiated Documentation: 06/29/19 12:56. HPI Narrative: 59-year-old female with a past medical history of breast cancer currently receiving oral letrozole, as well as recent hospital admission with adrenal insufficiency, diabetes complication, and C. difficile colitis, with still taking oral therapy for her C. difficile but states that her diarrhea has completely resolved. She presents today for evaluation of shortness of breath. She states that for the last 2 to 3 days she has had mild to moderate shortness of breath, productive cough with green and epstein sputum, she denies fever or chills. She denies long trips surgeries or procedures. She denies any calf tenderness. She denies history of blood clots. She denies any chest pain, chest tightness, chest heaviness or pleuritic chest pain. She denies any nausea vomiting or diarrhea. No other complaints at this time. No other modifying factors. Related Data Home Medications Medication Instructions Recorded Confirmed Spiriva Respimat 1 puff INHALATION DAILY 04/03/17 06/29/19 atorvastatin [Lipitor] 40 mg PO HS 04/03/17 06/29/19 budesonide-formoterol [Symbicort] 2 puff INHALATION BID 04/03/17 06/29/19 carbamazepine 200 mg PO BID 04/03/17 06/29/19 cetirizine [Zyrtec] 10 mg PO DAILY 04/03/17 06/29/19 cyanocobalamin (vitamin B-12) 1,000 mcg PO DAILY 04/03/17 06/29/19 [Vitamin B-12] ferrous sulfate 325 mg PO TID 04/03/17 06/29/19 folic acid 1 mg PO DAILY 04/03/17 06/29/19 montelukast [Singulair] 10 mg PO DAILY 04/03/17 06/29/19 ondansetron HCl [Zofran] 8 mg PO TID PRN 04/03/17 06/29/19 pregabalin [Lyrica] 200 mg PO TID 04/03/17 06/29/19 Trulicity 1.5 mg SUBCUT QWEEK 05/06/18 06/29/19 hydrocortisone 5 mg PO QNOON 05/06/18 06/29/19 levothyroxine 150 mcg PO DAILY 05/06/18 06/29/19 benzonatate 200 mg PO TID PRN #15 cap 05/10/18 06/29/19 guaifenesin [Mucinex] 600 mg PO BID #10 tab 05/10/18 06/29/19 duloxetine [Cymbalta] 60 mg PO HS 02/02/19 06/29/19 loratadine 10 mg PO DAILY 02/02/19 06/29/19 Lactobacillus acidophilus 1,000 mmu cells PO DAILY #30 cap 02/04/19 06/29/19 Prevalite 4 g PO BID@1000,2000 PRN #10 each 02/04/19 06/29/19 letrozole 2.5 mg PO DAILY 02/04/19 06/29/19 ranitidine HCl 300 mg PO QHS #30 cap 02/04/19 06/29/19 hydrocodone-acetaminophen 2 tab PO Q4H PRN PRN #5 tab 03/28/19 06/29/19 Cholestyramine Light 4 g PO BID PRN 04/16/19 06/29/19 Humulin R U-500 (Conc) Kwikpen 30 unit SUBCUT QNOON #0 ml 04/20/19 06/29/19 Humulin R U-500 (Conc) Kwikpen 30 unit SUBCUT QPM #0 ml 04/20/19 06/29/19 Humulin R U-500 (Conc) Kwikpen 70 unit SUBCUT QAM #0 ml 04/20/19 06/29/19 fentanyl 1 patch TD Q72H #2 each 04/20/19 06/29/19 metronidazole [Flagyl] 500 mg PO TID #27 tab 05/08/19 06/29/19 vancomycin [Vancocin] 125 mg PO .Q2-3D #16 cap 05/08/19 06/29/19 vancomycin [Vancocin] 125 mg PO DAILY #7 cap 05/08/19 06/29/19 Previous Rx's Medication Instructions Recorded benzonatate 200 mg PO TID PRN #15 cap 05/10/18 guaifenesin [Mucinex] 600 mg PO BID #10 tab 05/10/18 Lactobacillus acidophilus 1,000 mmu cells PO DAILY #30 cap 02/04/19 Prevalite 4 g PO BID@1000,2000 PRN #10 each 02/04/19 ranitidine HCl 300 mg PO QHS #30 cap 02/04/19 hydrocodone-acetaminophen 2 tab PO Q4H PRN PRN #5 tab 03/28/19 Humulin R U-500 (Conc) Kwikpen 30 unit SUBCUT QNOON #0 ml 04/20/19 Humulin R U-500 (Conc) Kwikpen 30 unit SUBCUT QPM #0 ml 04/20/19 Humulin R U-500 (Conc) Kwikpen 70 unit SUBCUT QAM #0 ml 04/20/19 fentanyl 1 patch TD Q72H #2 each 04/20/19 metronidazole [Flagyl] 500 mg PO TID #27 tab 05/08/19 vancomycin [Vancocin] 125 mg PO .Q2-3D #16 cap 05/08/19 vancomycin [Vancocin] 125 mg PO DAILY #7 cap 05/08/19 Allergies Allergy/AdvReac Type Severity Reaction Status Date / Time bee venom protein (honey bee) Allergy Unknown Unverified 06/11/19 20:23 Latex, Natural Rubber AdvReac Intermediate Unverified 06/11/19 20:23 adhesive tape AdvReac Mild Unverified 06/11/19 20:23 General Stated Complaint: SOB CARMEN: 2 Review of Systems All systems reviewed & are unremarkable except as noted in HPI and below PFSH Social History Smoking/Tobacco Use Status: Former Tobacco Use Alcohol Intake: never Drug use: Never Substance use type: does not use Caregiver/Support person: Yes Household members: children Number of Children: 2 Communication Needs: Hard of Hearing and Corrective Lenses Education Level: middle school Do you need help understanding health information?: Always current occupation: on disability What is your relationship status?: How often do you talk on the phone with friends or family?: once per week How often do you get together with friends or relatives?: three or more times per week Panel score (0-1 are the most socially isolated patients): 1 What type of physical activity do you participate in: none, sedentary lifestyle, wheelchair-bound and additional Details: needs a new wheelchair, cannot walk far, just a few steps Special pedro pablo needs: No Do you feel safe at home: Yes Do you feel safe in your relationship?: Yes Additional Social history: , with 2 children. She is not working and on disability. Has a history of tobacco, quit in 1992. Reports rare use of alcohol only. Lives with daughter. Uses a walker to ambulate. Hard to do recently, depending more on WC. In a lot of pain. Recent scans show progression of breast cancer. Exam Narrative Exam Narrative: 1.Const: Well-nourished, Well-developed, appearing stated age 2.Eyes: PERRL, no conjunctival injection, and symmetrical lids. 3.ENT: Atraumatic external nose and ears. Moist MM. Neck: Symmetric, trachea midline, No thyromegaly. 4.CVS: +S1/S2, No murmurs or gallops. Peripheral pulses 2+ and equal in all extremities. Brisk capillary refill in all extremities. 5.RESP: Unlabored respiratory effort. Clear to auscultation bilaterally. No wheezes rales or rhonchi 6.GI: Soft, Nontender/Nondistended, No hepatosplenomegaly. No guarding or rebound. 7.MSK: Normocephalic/Atraumatic, Extremities w/o deformity or ttp No cyanosis or clubbing, Normal movement of all extremities. No calf tenderness. 8.Skin: Warm, Dry. No rashes or lesions. 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 Sensation grossly intact, no focal neurologic deficits. 10.Psych: (AAO) x3. Appropriate mood and affect Course Vital Signs Vital signs: Vital Signs Temperature 36.8 C 06/29/19 13:07 Pulse 107 H 06/29/19 13:07 Respiratory Rate 22 06/29/19 13:07 Blood Pressure 105/53 L 06/29/19 13:07 Pulse Oximetry 95 06/29/19 13:07 Temperature 36.8 C 06/29/19 13:07 Temperature Source Tympanic 06/29/19 13:07 Pulse 107 H 06/29/19 13:07 Respiratory Rate 22 06/29/19 13:07 Respiratory Effort 06/29/19 13:11 Blood Pressure 105/53 L 06/29/19 13:07 Pulse Oximetry 95 06/29/19 13:07 Oxygen Delivery Method Nasal Cannula 06/29/19 13:07 Oxygen Flow Rate 2 06/29/19 13:07 Pain Level 0 06/29/19 13:07
[2019-06-29 13:47] LABS: Abs Immature Grans 0.01 k/cumm (0.0-0.09); Absolute Basophil Count 0.02 k/cumm (0.0-0.2); Absolute Eosinophil Count 0.14 k/cumm (0.0-0.7); Absolute Lymphocyte Count 1.32 k/cumm (1.2-3.4); Absolute Monocyte Count 0.15 k/cumm (0.11-0.7); Absolute Neutrophil Count 3.23 k/cumm (1.2-6.7); Basophils % 0.4; Eosinophils % 2.9; HCT 32.6 % (36.0-46.0); HGB 10.5 g/dL (12.0-15.5); Immature Grans % 0.2 %; Lymphocytes % 27.1; Mean Corp. HGB Concentration 32.2 g/dL (32.0-36.0); Mean Corpuscular Hemoglobin 30.3 pg (27.0-33.0); Mean Corpuscular Volume 94.2 fL (80-95); Mean Platelet Volume 9.2 fL (8.0-11.0); Monocytes % 3.1; Neutrophils % 66.3; Platelet Count 275 x1000/uL (130-400); RBC 3.46 m/cumm (4.00-5.20); RBC Distribution Width 16.9 % (11.7-14.6); White Blood Cell Count 4.87 k/cumm (4.4-10.8)
[2019-06-29 13:50] LABS: BE (Venous) 0.4 mmol/L (-3-3); HCO3 (Venous) 26 mmol/L (22-28); O2 Sat (Venous) 98 % (70-80); TCO2 (Venous) 24 mmol/L (22-29); pCO2 (Venous) 44 mm/Hg (34-47); pH (Venous) 7.37 (7.35-7.45); pO2 (Venous) 108 mm/Hg (28-44)
[2019-06-29 14:15] LABS: ALT 41 U/L (14-59); AST 44 U/L (15-37); Alkaline Phosphatase 165 U/L (46-116); Anion Gap 8.9 mmol/L (3-11); BUN 18 mg/dL (7-18); Bilirubin, Total 0.3 mg/dL (0.2-1.0); CO2 26.1 mmol/L (21.0-32.0); CREATININE 1.51 mg/dL (0.55-1.02); Calcium 8.7 mg/dL (8.5-10.1); Chloride 98 mmol/L (98-107); Estimated GFR 35.15 (mL/min/1.73m2); Glucose 392 mg/dL (74-106); NT-proBNP 52 pg/mL (<300); Potassium 4.1 mmol/L (3.5-5.1); Sodium 133 mmol/L (136-145); Total Protein 7.7 g/dL (6.4-8.2); Troponin I < 0.05 ng/Ml (<0.06)
[2019-06-29] MEDS: Omnipaque 350 MG/ML 100 ML BTL IJ (14:46)
[2019-06-29] MEDS: Normal Saline - Diluent 50 ML VIAL IV (14:46)
--- NOTE | 2019-06-29 16:08 | HPE_ITS ---
Date of service: 06/29/19 Time of Service: 16:08 Assessment and Plan Assessment and plan (1) Pulmonary emboli: Status: Chronic Assessment and plan: will treat with enoxaparin bridge to coumadin. will start with 5 mg daily and adjust as needed for INR goal of 2-3. will consult with hem/onc at [facility]. echo, bilateral venous US lower extremities for tomorrow. (2) Diabetes mellitus: Status: Chronic Assessment and plan: diabetic diet, continue home insulin regimen, check blood sugars ac/hs and cover as needed. continue trulicity, blood sugar poorly controlled on admission. add A1C last A1C was 7.9 in Mar 2019. 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 continue home medications and inhalers (4) History of breast cancer: Status: Chronic Assessment and plan: on letrozole daily. palliative patient (5) Acute kidney injury superimposed on chronic kidney disease: Status: Acute Assessment and plan: creatinine baseline appears to be around 1.1-1.3, will avoid nephrotoxic drugs, provide gentle IV hydration, renal dose medications as needed. (6) Palliative care patient: Status: Chronic Assessment and plan: DNR/DNI (7) Recurrent Clostridium difficile diarrhea: Status: Acute Assessment and plan: on vanco and flagyl, questran and lactobacillus. (8) Hypothyroidism: Status: Chronic Assessment and plan: continue levothyroxine . last TSH april 2019 0.27 (9) DVT prophylaxis: Status: Acute Assessment and plan: will be fully anticoagulated. (10) Discharge planning issues: Status: Acute Assessment and plan: anticipate a discharge to home when medically stable. History of Present Illness History of Present Illness Chief Complaint: shortness of breath Narrative: 59-year-old female with a past medical history of breast cancer currently receiving oral letrozole, as well as recent hospital admission with adrenal insufficiency, diabetes complication, and C. difficile colitis, with still taking oral therapy for her C. difficile but states that her diarrhea has completely resolved. She presents today for evaluation of shortness of breath. She states that for the last 2 to 3 days she has had mild to moderate shortness of breath, productive cough with green and epstein sputum, she denies fever or chills. She denies long trips surgeries or procedures. She denies any calf te nderness. She denies history of blood clots. She denies any chest pain, chest tightness, chest heaviness or pleuritic chest pain. She denies any nausea vomiting or diarrhea. work up in the ED included a chest CT which showed a question of tiny peripheral emboli in left lower subsegmental pulmonary arterial vessels Review of Systems Constitutional Constitutional: Denies fever(s) Eyes Eyes: Denies change in vision ENT Ears, Nose, Mouth, and Throat: Denies dysphagia and Denies vertigo Cardiovascular Cardiovascular: Denies chest pain, Reports dyspnea and Reports dyspnea on exertion Respiratory Respiratory: Denies change in phlegm color, Denies cough, Reports dyspnea and Reports dyspnea on exertion Gastrointestinal Gastrointestinal: Denies dysphagia and Denies diarrhea Musculoskeletal Musculoskeletal: Denies myalgias Neurologic Neurologic: Denies confusion and Denies vertigo Psychiatric Psychiatric: Denies confusion Hematologic/Lymphatic Hematologic/Lymphatic: Denies easy bleeding and Denies easy bruising [facility] Social History Smoking/Tobacco Use Status: Former Tobacco Use Alcohol Intake: never Drug use: Never Substance use type: does not use Caregiver/Support person: Yes Household members: children Number of Children: 2 Communication Needs: Hard of Hearing and Corrective Lenses Education Level: middle school Do you need help understanding health information?: Always current occupation: on disability What is your relationship status?: How often do you talk on the phone with friends or family?: once per week How often do you get together with friends or relatives?: three or more times per week Panel score (0-1 are the most socially isolated patients): 1 What type of physical activity do you participate in: none, sedentary lifestyle, wheelchair-bound and additional Details: needs a new wheelchair, cannot walk far, just a few steps Special pedro pablo needs: No Do you feel safe at home: Yes Do you feel safe in your relationship?: Yes Additional Social history: , with 2 children. She is not working and on disability. Has a history of tobacco, quit in 1992. Reports rare use of alcohol only. Lives with daughter. Uses a walker to ambulate. Hard to do recently, depending more on WC. In a lot of pain. Recent scans show progression of breast cancer. Meds Home Medications and Allergies Home Medications Medication Instructions Recorded Confirmed Type Spiriva Respimat 1 puff INHALATION DAILY 04/03/17 06/29/19 History atorvastatin [Lipitor] 40 mg PO HS 04/03/17 06/29/19 History budesonide-formoterol [Symbicort] 2 puff INHALATION BID 04/03/17 06/29/19 History carbamazepine 200 mg PO BID 04/03/17 06/29/19 History cetirizine [Zyrtec] 10 mg PO DAILY 04/03/17 06/29/19 History cyanocobalamin (vitamin B-12) 1,000 mcg PO DAILY 04/03/17 06/29/19 History [Vitamin B-12] ferrous sulfate 325 mg PO TID 04/03/17 06/29/19 History folic acid 1 mg PO DAILY 04/03/17 06/29/19 History montelukast [Singulair] 10 mg PO DAILY 04/03/17 06/29/19 History ondansetron HCl [Zofran] 8 mg PO TID PRN 04/03/17 06/29/19 History pregabalin [Lyrica] 200 mg PO TID 04/03/17 06/29/19 History Trulicity 1.5 mg SUBCUT QWEEK 05/06/18 06/29/19 History hydrocortisone 5 mg PO QNOON 05/06/18 06/29/19 History levothyroxine 150 mcg PO DAILY 05/06/18 06/29/19 History benzonatate 200 mg PO TID PRN #15 cap 05/10/18 06/29/19 Rx guaifenesin [Mucinex] 600 mg PO BID #10 tab 05/10/18 06/29/19 Rx duloxetine [Cymbalta] 60 mg PO HS 02/02/19 06/29/19 History loratadine 10 mg PO DAILY 02/02/19 06/29/19 History Lactobacillus acidophilus 1,000 mmu cells PO DAILY #30 cap 02/04/19 06/29/19 Rx Prevalite 4 g PO BID@1000,2000 PRN #10 each 02/04/19 06/29/19 Rx letrozole 2.5 mg PO DAILY 02/04/19 06/29/19 History ranitidine HCl 300 mg PO QHS #30 cap 02/04/19 06/29/19 Rx hydrocodone-acetaminophen 2 tab PO Q4H PRN PRN #5 tab 03/28/19 06/29/19 Rx Cholestyramine Light 4 g PO BID PRN 04/16/19 06/29/19 History Humulin R U-500 (Conc) Kwikpen 30 unit SUBCUT QNOON #0 ml 04/20/19 06/29/19 Rx Humulin R U-500 (Conc) Kwikpen 30 unit SUBCUT QPM #0 ml 04/20/19 06/29/19 Rx Humulin R U-500 (Conc) Kwikpen 70 unit SUBCUT QAM #0 ml 04/20/19 06/29/19 Rx fentanyl 1 patch TD Q72H #2 each 04/20/19 06/29/19 Rx metronidazole [Flagyl] 500 mg PO TID #27 tab 05/08/19 06/29/19 Rx vancomycin [Vancocin] 125 mg PO .Q2-3D #16 cap 05/08/19 06/29/19 Rx vancomycin [Vancocin] 125 mg PO DAILY #7 cap 05/08/19 06/29/19 Rx Allergies Allergy/AdvReac Type Severity Reaction Status Date / Time bee venom protein (honey bee) Allergy Unknown Unverified 06/11/19 20:23 Latex, Natural Rubber AdvReac Intermediate Unverified 06/11/19 20:23 adhesive tape AdvReac Mild Unverified 06/11/19 20:23 Exam Const General: cooperative, no acute distress, frail appearing and ill appearing chronically Nutritional Appearance: obese morbidly obese Orientation: alert, awake and oriented x3 HENMT Head: normal to inspection, normocephalic and atraumatic Mouth: oral mucosae normal Resp Effort & Inspection: normal respiratory effort, able to speak in complete sent ences, no cough and not labored Auscultation: diminished lung sounds bilaterally Cardio Rate: regular rate Rhythm: regular rhythm GI Inspection: large pannus and obesity Palpation: soft Auscultation: normal bowel sounds Neuro General: patient alert, patient awake and patient oriented x3 Cranial Nerves: CN's II-XI intact bilaterally Extrem General: normal to inspection, full ROM and edema (generalized obesity) Laterality: bilateral Psych Appearance: grossly normal Mental Status: mental status grossly normal Mood: congruent mood Affect: normal affect Results Labs Result diagrams: 06/30/19 06:20 06/30/19 06:20 Labs: Laboratory Results - last 24 hr 06/29/19 06/29/19 06/29/19 13:23 13:23 13:23 WBC 4.87 RBC 3.46 L Hgb 10.5 L Hct 32.6 L MCV 94.2 MCH 30.3 MCHC 32.2 RDW 16.9 H Plt Count 275 MPV 9.2 Immature Gran % 0.2 Neutrophils % 66.3 Band Neutrophils % Lymphocytes % 27.1 Atypical Lymphs % Monocytes % 3.1 Eosinophils % 2.9 Basophils % 0.4 Metamyelocytes % Myelocytes % Promyelocytes % Absolute Neutrophils 3.23 Absolute Lymphocytes 1.32 Absolute Monocytes 0.15 Absolute Eosinophils 0.14 Absolute Basophils 0.02 Nucleated RBCs Differential Comment Other Cell Type RBC Morphology Polychromasia Hypochromasia Poikilocytosis Basophilic Stippling Anisocytosis Microcytosis Macrocytosis Spherocytes Target Cells Tear Drop Cells Ovalocytes Stomatocytes [place] Bodies [place] Cells Acanthocytes (Spur) Schistocytes VBG pH 7.37 VBG pCO2 44 VBG pO2 108 H VBG HCO3 26 VBG Total CO2 24 VBG O2 Saturation 98 H VBG Base Excess 0.4 Sodium 133 L Potassium 4.1 Chloride 98 Carbon Dioxide 26.1 Anion Gap 8.9 BUN 18 Creatinine 1.51 H Estimated GFR/1.73 m2 35.15 Glucose 392 H Calcium 8.7 Total Bilirubin 0.3 AST 44 H ALT 41 Alkaline Phosphatase 165 H Troponin I < 0.05 NT-Pro-B Natriuret Pep 52 Total Protein 7.7 Albumin 3.0 L 06/29/19 16:06 WBC Cancelled RBC Cancelled Hgb Cancelled Hct Cancelled MCV Cancelled MCH Cancelled MCHC Cancelled RDW Cancelled Plt Count Cancelled MPV Cancelled Immature Gran % Cancelled Neutrophils % Cancelled Band Neutrophils % Cancelled Lymphocytes % Cancelled Atypical Lymphs % Cancelled Monocytes % Cancelled Eosinophils % Cancelled Basophils % Cancelled Metamyelocytes % Cancelled Myelocytes % Cancelled Promyelocytes % Cancelled Absolute Neutrophils Cancelled Absolute Lymphocytes Cancelled Absolute Monocytes Cancelled Absolute Eosinophils Cancelled Absolute Basophils Cancelled Nucleated RBCs Cancelled Differential Comment Cancelled Other Cell Type Cancelled RBC Morphology Cancelled Polychromasia Cancelled Hypochromasia Cancelled Poikilocytosis Cancelled Basophilic Stippling Cancelled Anisocytosis Cancelled Microcytosis Cancelled Macrocytosis Cancelled Spherocytes Cancelled Target Cells Cancelled Tear Drop Cells Cancelled Ovalocytes Cancelled Stomatocytes Cancelled [place] Bodies Cancelled [place] Cells Cancelled Acanthocytes (Spur) Cancelled Schistocytes Cancelled VBG pH VBG pCO2 VBG pO2 VBG HCO3 VBG Total CO2 VBG O2 Saturation VBG Base Excess Sodium Potassium Chloride Carbon Dioxide Anion Gap BUN Creatinine Estimated GFR/1.73 m2 Glucose Calcium Total Bilirubin AST ALT Alkaline Phosphatase Troponin I NT-Pro-B Natriuret Pep Total Protein Albumin Last Vital Signs Temp 36.8 C 06/29/19 13:07 Pulse 92 H 06/29/19 15:31 Resp 20 06/29/19 14:40 BP 124/59 L 06/29/19 15:31 Pulse Ox 99 06/29/19 15:50 COVID-19 Screening Traveled to [place] from one of the affected countries or regions?: NO Recent travel in the [place] within the last 14 days?: No Recent out of the country travel within the last 14 days?: No Exposure or possible exposure to illness during travel?: No Had IN PERSON contact w/suspected or confirmed C-19 person: No Have you had the following symptoms in the past few days?: No
[2019-06-29 16:53] LABS: Troponin I < 0.05 ng/Ml (<0.06)
[2019-06-29 17:23] LABS: Anion Gap 5.9 mmol/L (3-11); BUN 16 mg/dL (7-18); CO2 30.1 mmol/L (21.0-32.0); CREATININE 1.37 mg/dL (0.55-1.02); Calcium 8.6 mg/dL (8.5-10.1); Chloride 98 mmol/L (98-107); Estimated GFR 39.33 (mL/min/1.73m2); Glucose 300 mg/dL (74-106); Sodium 134 mmol/L (136-145)
[2019-06-29] MEDS: Insulin Aspart 300 UNITS/3 ML PEN SC (18:19)
[2019-06-29] MEDS: Normal Saline 500 ML 100 ML IV (18:29)
[2019-06-29] MEDS: Pregabalin 100 MG CAP 200 MG PO (20:32)
[2019-06-29] MEDS: metroNIDAZOLE 500 MG TAB PO (20:32)
[2019-06-29] MEDS: Vancomycin 125 MG CAP PO (20:32)
[2019-06-29] MEDS: Warfarin 5 MG TAB PO (20:32)
[2019-06-29] MEDS: guaiFENesin 600 MG TABCR PO (20:32)
[2019-06-29] MEDS: carBAMazepine 200 MG TAB PO (20:33)
[2019-06-29] MEDS: Ferrous Sulfate 325 MG TAB PO (20:33)
[2019-06-29] MEDS: Budesonide/Formoterol 160/4.5 6 GM 60 PUFF INH IH (20:33)
[2019-06-29 21:05] LABS: Hemoglobin A1C 8.5 % (3.8-5.6); Troponin I < 0.05 ng/Ml (<0.06)
[2019-06-29] MEDS: DULoxetine 30 MG CAP 60 MG PO (22:19)
[2019-06-29] MEDS: Atorvastatin 20 MG TAB 40 MG PO (22:19)
[2019-06-29] MEDS: Melatonin 3 MG TAB 6 MG PO (22:19)
--- NOTE | 2019-06-30 | DI.US_ITS ---
EXAM: US EXTREMITY VENOUS BI CLINICAL HISTORY: pulmonary embolism TECHNIQUE: Ultrasound performed using standard protocol. COMPARISON: US RENAL from 04/19/2019 FINDINGS: Duplex venous ultrasound was performed according to the usual protocol. The deep veins are freely com pressible throughout and there is normal flow augmentation with manual calf compression. 2D and Doppl er evaluation are unremarkable. IMPRESSION: No evidence of deep venous thrombosis of the right or left lower extremity
[2019-06-30] MEDS: HYDROcodone 5/Acetaminophen 325 TAB PO ×2 (00:37→08:56)
[2019-06-30 03:21] VITALS: BP 131/81; PULSE 81; RESP 19; TEMP 36.6; O2SAT 91
[2019-06-30 05:37] VITALS: BP 114/67; PULSE 81; RESP 22; TEMP 36.4; O2SAT 92
[2019-06-30 06:46] LABS: Absolute Basophil Count 0.01 k/cumm (0.0-0.2); Absolute Eosinophil Count 0.12 k/cumm (0.0-0.7); Absolute Lymphocyte Count 1.28 k/cumm (1.2-3.4); Absolute Monocyte Count 0.24 k/cumm (0.11-0.7); Absolute Neutrophil Count 2.36 k/cumm (1.2-6.7); Basophils % 0.2; HCT 30.5 % (36.0-46.0); HGB 9.6 g/dL (12.0-15.5); Lymphocytes % 31.9; Mean Corp. HGB Concentration 31.5 g/dL (32.0-36.0); Mean Corpuscular Hemoglobin 29.9 pg (27.0-33.0); Mean Platelet Volume 9.1 fL (8.0-11.0); Neutrophils % 58.9; Platelet Count 244 x1000/uL (130-400); RBC 3.21 m/cumm (4.00-5.20); RBC Distribution Width 16.8 % (11.7-14.6); White Blood Cell Count 4.01 k/cumm (4.4-10.8)
[2019-06-30 06:55] LABS: COVID-19 RT-PCR UVMMC Result Negative (Negative)
[2019-06-30 07:02] LABS: Anion Gap 5.4 mmol/L (3-11); BUN 15 mg/dL (7-18); CO2 29.6 mmol/L (21.0-32.0); CREATININE 1.28 mg/dL (0.55-1.02); Calcium 8.7 mg/dL (8.5-10.1); Chloride 101 mmol/L (98-107); Estimated GFR 42.54 (mL/min/1.73m2); Glucose 163 mg/dL (74-106); Potassium 3.7 mmol/L (3.5-5.1); Sodium 136 mmol/L (136-145)
[2019-06-30 07:10] LABS: INR 1.1 (0.9-1.1); Prothrombin Time 11.2 sec (9.3-11.0)
[2019-06-30 07:25] LABS: Anisocytosis 1+; Diff Comment RBC Morph Reviewed; Hypochromasia 1+
[2019-06-30 07:32] VITALS: BP 115/69; PULSE 76; RESP 17; TEMP 36.5; O2SAT 90
[2019-06-30] MEDS: Insulin Aspart 300 UNITS/3 ML PEN SC ×2 (08:49→11:59)
[2019-06-30] MEDS: Letrozole 2.5 MG TAB PO (08:51)
[2019-06-30] MEDS: Pregabalin 100 MG CAP 200 MG PO ×3 (08:51→20:49)
[2019-06-30] MEDS: Montelukast 10 MG TAB PO (08:51)
[2019-06-30] MEDS: Ferrous Sulfate 325 MG TAB PO ×3 (08:52→20:49)
[2019-06-30] MEDS: Cetirizine 10 MG TAB PO (08:52)
[2019-06-30] MEDS: Loratidine 10 MG TAB PO (08:52)
[2019-06-30] MEDS: metroNIDAZOLE 500 MG TAB PO ×3 (08:52→20:49)
[2019-06-30] MEDS: Levothyroxine 75 MCG TAB 150 MCG PO (08:52)
[2019-06-30] MEDS: Folic Acid 1 MG TAB PO (08:52)
[2019-06-30] MEDS: carBAMazepine 200 MG TAB PO ×2 (08:52→20:50)
[2019-06-30] MEDS: Cyanocobalamin 500 MCG TAB 1000 MCG PO (08:52)
[2019-06-30] MEDS: guaiFENesin 600 MG TABCR PO ×2 (08:52→20:50)
--- NOTE | 2019-06-30 11:44 | DI.US_ITS ---
APPROVED REPORT EXAM: Comprehensive 2D, Doppler, and color-flow Echocardiogram Patient Location: In-Patient Room/Bed: 217 Director Of Marketing: Samra Yanez RDCS (AE) Indications: Pulmonary Embolism, COPD, SOB Other Information Study Quality: Poor. Technically limited study due to body habitus. Conclusion This is a technically limited study. Left Ventricle : The left ventricle is normal size. The left ventricular systolic function is normal. The left ventricular ejection fraction is within the normal range. There is normal left ventricular wall thickness. There is normal LV segmental wall motion. Transmitral Doppler flow pattern suggests i mpaired LV relaxation. Ejection fraction is estimated to be 55???60%. Right Ventricle : Right ventricle is not well visualized. Right ventricular systolic function could n ot be assessed. The RVSP is 23 mmHg. Atria : The left atrium size is normal. Right atrium is not well visualized. Valves: There are no hemodynamically significant valvular lesions. Great Vessels : IVC is normal in size and collapses >50% with inspiration. There is no prior echocardiogram available for comparison. Wall motion Left Ventricle The left ventricle is normal size. The left ventricular systolic function is normal. The left ventric ular ejection fraction is within the normal range. There is normal left ventricular wall thickness. T here is normal LV segmental wall motion. Transmitral Doppler flow pattern suggests impaired LV relaxa tion. There is no ventricular septal defect visualized. Ejection fraction is estimated to be 55???60% . Right Ventricle Right ventricle is not well visualized. Right ventricular systolic function could not be assessed. Th e RVSP is 23 mmHg. Atria The left atrium size is normal. Right atrium is not well visualized. The interatrial septum is intact with no evidence for an atrial septal defect. Aortic Valve Aortic valve is trileaflet. There is no aortic valvular stenosis. No aortic regurgitation is present. Mitral Valve There is mitral annular calcification. No evidence of mitral valve stenosis. Trace mitral regurgitati on. Tricuspid Valve The tricuspid valve is normal in structure. There is no tricuspid valve stenosis. Trace tricuspid reg urgitation. Pulmonic Valve The pulmonary valve is normal in structure. There is no pulmonic valvular stenosis. Trace pulmonic re gurgitation. Great Vessels The aortic root is normal in size. The ascending aorta is normal in size. IVC is normal in size and c ollapses >50% with inspiration. Pericardium Mild circumferential pericardial effusion. 2D Dimensions IVSD d PLAX 0.88 cm F: 0.6-1.0 LVPW d PLAX 0.90 cm F: 0.6 - 1.0 LVID d PLAX 4.81 cm F: 3.8 - 5.2 LVDs 3.15 cm F: 2.2 - 3.5 Ao Root d 2.80 cm F: 2.7 - 3.3 Ao Asc Diam d 2.56 cm F: 2.3 - 3.1 LV EF Teichholz 62.4 % FS 33.65 % LV Diastology E Decel Time 323.00 (160-240 msec) E/A Ratio 1.0 MV E' medial 0.053 (>0.07 m/s) MV E Vmax 0.74 (0.4-1.3 m/s) LV E/e MED 14.00 (<14) MV A Vmax 0.75 (0.4-1.3 m/s) MV E' lateral 0.087 (>0.1 m/s) MV E/A Ratio 0.94 LV E/e LAT 8.50 (<14) MV E/E' medial 14.00 MV E/E' lateral 8.50 E Peak Velocity 0.74 m/s A Peak Velocity 0.79 m/s Aortic Valve LVOT Vmax 1.02 m/s LVOT Mean Ramos. 0.80 m/s LVOT Peak Grad 4.1 mmHg LVOT Mean Grad 2.8 mmHg LVOT VTI 0.212 m LVOT Diam s 1.80 cm (M/F) 1.5-2.5 AoV Vmax 1.33 (0.5-1.3 m/s) Velocity Ratio 0.76 AoV Mean Ramos. 1.01 m/s AoV Peak Grad 7.0 mmHg AoV Mean Grad 4.4 (<5 mmHg) AoV VTI 0.293 (0.18-0.25 m) AoV Area VTI 1.90 (2.5-4.5 cm2) AoV Area/ BSA (VTI) 0.74 cm/m2 Mitral Valve MV DT 323 (160-240 msec) MV PHT 94 msec MV Area PHT 2.35 cm2 Pulmonary Valve PV Vmax 1.30 (0.5-1.5 m/s) RVOT Peak Gr. 2.86 mmHg PV Peak Grad 6.8 mmHg RVOT Mean Gr. 1.35 mmHg PV Mean Grad 3.4 mmHg RVOT VTI 0.180 m PV VTI 0.266 m RVOT Vmax 0.85 m/s Tricuspid Valve TR Peak Grad 20.7 mmHg TR Vmax 2.28 m/s RA Pressure 3.00 mmHg RVSP (TR) 23.8 mmHg
[2019-06-30] MEDS: Hydrocortisone 10 MG TAB 5 MG PO (11:58)
[2019-06-30] MEDS: Tiotropium Bromide-Respimat 10 PUFF INH IH (12:07)
[2019-06-30] MEDS: Budesonide/Formoterol 160/4.5 6 GM 60 PUFF INH IH ×2 (12:08→20:48)
--- NOTE | 2019-06-30 12:34 | PHACLINREV_ITS ---
Pharmacy Admission Review - Admission Clinical Review (Last Reviewed 06/11/19 @ 20:44 by Kenia Melgoza) Discharge planning issues (Acute) Acute kidney injury superimposed on chronic kidney disease (Acute) Recurrent Clostridium difficile diarrhea (Acute) DVT prophylaxis (Acute) bee venom protein (honey bee) Allergy (Unknown, Unverified 06/11/19 20:23) Latex, Natural Rubber Adverse Reaction (Intermediate, Unverified 06/11/19 20:23) adhesive tape Adverse Reaction (Mild, Unverified 06/11/19 20:23) Height 5 ft 9 in Weight 155.1 kg - Comments Comments/Follow Ups: [place] [facility] [place] can start eliquis 10mg BID x10 days, will do this as opposed to original plan to start coumadin with a LMWH bridge - Renal Dosing Renal Dosing: BUN 15 mg/dL (7-18) 06/30/19 06:20 Creatinine 1.28 mg/dL (0.55-1.02) H 06/30/19 06:20 Medications needing adjustments: Reviewed - Anticoagulation Anticoagulation: Hgb 9.6 g/dL (12.0-15.5) L 06/30/19 06:20 Hct 30.5 % (36.0-46.0) L 06/30/19 06:20 Plt Count 244 x1000/uL (130-400) 06/30/19 06:20 INR 1.1 (0.9-1.1) 06/30/19 06:20 Creatinine 1.28 mg/dL (0.55-1.02) H 06/30/19 06:20 DVT Prohphylaxis: N/A Therapeutic Anticoagulation: Reviewed Medications: Apixaban - Opiate Usage Evaluate Pain Scale/Pains Meds: Reviewed (chronic pain tx with fentanyl patch) Scheduled Bowel Reg ordered if on Opiates?: No - Relevant Labs Sodium 136 mmol/L (136-145) 06/30/19 06:20 Potassium 3.7 mmol/L (3.5-5.1) 06/30/19 06:20 Chloride 101 mmol/L (98-107) 06/30/19 06:20 - DM Control DM Control: Glucose 163 mg/dL (74-106) H D 06/30/19 06:20 Hemoglobin A1c 8.5 % (3.8-5.6) H 06/29/19 20:26 Finger Stick Blood Glucose 165 Finger Stick Blood Glucose 165 Finger Stick Blood Glucose 198 Finger Stick Blood Glucose 198 Insulin Dosing: Reviewed (Humulin TID + aspart per SS) - Heart Failure/MA Heart Failure/MA: Troponin I < 0.05 ng/Ml (<0.06) 06/29/19 20:26 NT-Pro-B Natriuret Pep 52 pg/mL (<300) 06/29/19 13:23 EF%, MCKENNA's, B-Blockers, Diuretics: N/A - BP Control BP Control: Blood Pressure 115/69 Blood Pressure 114/67 If elevated: N/A - Qtc Review If Elevated: Reviewed (QTc 450) - Current meds Current Medication Order Review: Reviewed - Comments Comments/Follow Ups: Recurrent C. Diff -- on oral vanco and metronidazole
--- NOTE | 2019-06-30 13:59 | W.PM.PROGNOT ---
Date of Service Date of service: 06/30/19 Time of Service: 13:59 Assessment and Plan Assessment and plan (1) Pulmonary emboli: Status: Chronic Assessment and plan: discussed anticoagulation with Dr Gatica from Hem/onc at [facility] [place]. she states coagulation team discussed patient case with CKD, morbid obesity and history of breast cancer and their recommendations at this time are for apixaban with dosing of 10 mg BID for one week and then reduce to 5 mg BID. patient is oxygenating well on room air and reports improvement in symptoms. (2) Diabetes mellitus: Status: Chronic Assessment and plan: hemoglobin A1C increased from 7.9 to 8.5 blood sugars seem controlled on diet and home medications here while hospitalized. continue current regimen with sliding scale with meals prn. Qualifiers: Chronic kidney disease stage: stage 3 (moderate) Diabetes mellitus complication detail: with chronic kidney disease Diabetes mellitus complication status: with kidney complications Diabetes mellitus superintendent terminal insulin use: with retirement use Diabetes mellitus type: type 2 Qualified Code(s): E11.22 - Type 2 diabetes mellitus with diabetic chronic kidney disease; N18.3 - Chronic kidney disease, stage 3 (moderate); Z79.4 - prison (current) use of insulin (3) Recurrent Clostridium difficile diarrhea: Status: Acute Assessment and plan: will recheck stool. continue flagyl, increase vancomycin to 250 mg qid, continue questran and lactobacillus. (4) Hypothyroidism: Status: Chronic Assessment and plan: continue levothyroxine . last TSH april 2019 0.27 (5) DVT prophylaxis: Status: Acute Assessment and plan: will be fully anticoagulated on apixaban (6) Discharge planning issues: Status: Acute Assessment and plan: anticipate a discharge to home tomorrow if remains stable. Subjective Subjective Patient reports: no new complaints and feels better Interval history since last seen: reports breathing is better. has some episodes of diarrhea overnight. no abdominal pain or nausea, eating and drinking well. Exam Const General: cooperative, no acute distress, frail appearing and ill appearing chronically Nutritional Appearance: obese Orientation: alert, awake and oriented x3 HENMT Head: normal to inspection, normocephalic and atraumatic Mouth: oral mucosae normal Resp Effort & Inspection: normal respiratory effort Auscultation: clear to auscultation bilaterally and diminished lung sounds Cardio Rate: regular rate Rhythm: regular rhythm Skin Rashes: no rashes Neuro General: patient alert, patient awake and patient oriented x3 Cognition: normal cognition Speech: speech normal Extrem General: edema Laterality: bilateral Psych Mental Status: mental status grossly normal Speech and Movement: speech and movement normal Affect: blunted Attitude: cooperative Objective Objective Clinical Data: Abnormal lab results 06/29/19 06/29/19 06/29/19 Range/Units 13:23 16:00 20:26 WBC (4.4-10.8) k/cumm RBC (4.00-5.20) m/cumm Hgb (12.0-15.5) g/dL Hct (36.0-46.0) % MCHC (32.0-36.0) g/dL RDW (11.7-14.6) % PT (9.3-11.0) sec Sodium 133 L 134 L (136-145) mmol/L Creatinine 1.51 H 1.37 H (0.55-1.02) mg/dL Glucose 392 H 300 H (74-106) mg/dL Hemoglobin A1c 8.5 H (3.8-5.6) % AST 44 H (15-37) U/L Alkaline Phosphatase 165 H (46-116) U/L Albumin 3.0 L (3.4-5.0) g/dL 06/30/19 06/30/19 06/30/19 Range/Units 06:20 06:20 06:20 WBC 4.01 L (4.4-10.8) k/cumm RBC 3.21 L (4.00-5.20) m/cumm Hgb 9.6 L (12.0-15.5) g/dL Hct 30.5 L (36.0-46.0) % MCHC 31.5 L (32.0-36.0) g/dL RDW 16.8 H (11.7-14.6) % PT 11.2 H (9.3-11.0) sec Sodium (136-145) mmol/L Creatinine 1.28 H (0.55-1.02) mg/dL Glucose 163 H D (74-106) mg/dL Hemoglobin A1c (3.8-5.6) % AST (15-37) U/L Alkaline Phosphatase (46-116) U/L Albumin (3.4-5.0) g/dL Vital Signs Temperature 36.5 C 06/30/19 07:32 Temperature Source Temporal Artery Scan 06/30/19 07:32 Pulse 76 06/30/19 07:32 Pulse Rhythm Regular 06/30/19 11:01 Pulse 93 H 06/29/19 14:40 Respiratory Rate 17 06/30/19 07:32 Respiratory Effort 06/30/19 11:01 Respiratory Depth Normal 06/30/19 11:01 Respiratory Pattern Normal 06/30/19 03:08 Blood Pressure 115/69 06/30/19 07:32 Blood Pressure Mean 73 06/29/19 15:31 Pulse Oximetry 90 L 06/30/19 07:32 Oxygen Delivery Method Room Air 06/30/19 07:32 Oxygen Flow Rate 0 06/30/19 07:32 Pain Level 9 06/30/19 08:56 Intake & Output 06/29/19 06/30/19 06/30/19 23:59 11:59 23:59 Intake Total 200 / 200 700 / 700 Output Total 100 / 100 Balance 100 / 100 700 / 700 Weight 153.314 kg 155.1 kg Intake: IV 500 / 500 Oral 200 / 200 200 / 200 Output: Urine 100 / 100 Other: Urine Color Yellow Urine Odor Normal Comment estimated 100ml plus large incontinence lg incontinence Stool Size Small Large Stool Characteristics Soft Brown Formed Voiding Methods Toilet Laboratory Results WBC 4.01 k/cumm (4.4-10.8) L 06/30/19 06:20 RBC 3.21 m/cumm (4.00-5.20) L 06/30/19 06:20 Hgb 9.6 g/dL (12.0-15.5) L 06/30/19 06:20 Hct 30.5 % (36.0-46.0) L 06/30/19 06:20 MCV 95.0 fL (80-95) 06/30/19 06:20 MCH 29.9 pg (27.0-33.0) 06/30/19 06:20 MCHC 31.5 g/dL (32.0-36.0) L 06/30/19 06:20 RDW 16.8 % (11.7-14.6) H 06/30/19 06:20 Plt Count 244 x1000/uL (130-400) 06/30/19 06:20 MPV 9.1 fL (8.0-11.0) 06/30/19 06:20 Immature Gran % 0.0 % 06/30/19 06:20 Neutrophils % 58.9 06/30/19 06:20 Band Neutrophils % Cancelled 06/29/19 16:06 Lymphocytes % 31.9 06/30/19 06:20 Atypical Lymphs % Cancelled 06/29/19 16:06 Monocytes % 6.0 06/30/19 06:20 Eosinophils % 3.0 06/30/19 06:20 Basophils % 0.2 06/30/19 06:20 Metamyelocytes % Cancelled 06/29/19 16:06 Myelocytes % Cancelled 06/29/19 16:06 Promyelocytes % Cancelled 06/29/19 16:06 Absolute Neutrophils 2.36 k/cumm (1.2-6.7) 06/30/19 06:20 Absolute Lymphocytes 1.28 k/cumm (1.2-3.4) 06/30/19 06:20 Absolute Monocytes 0.24 k/cumm (0.11-0.7) 06/30/19 06:20 Absolute Eosinophils 0.12 k/cumm (0.0-0.7) 06/30/19 06:20 Absolute Basophils 0.01 k/cumm (0.0-0.2) 06/30/19 06:20 Nucleated RBCs Cancelled 06/29/19 16:06 Differential Comment Rbc morph reviewed 06/30/19 06:20 Other Cell Type Cancelled 06/29/19 16:06 RBC Morphology See below 06/30/19 06:20 Polychromasia Cancelled 06/29/19 16:06 Hypochromasia 1+ 06/30/19 06:20 Poikilocytosis Cancelled 06/29/19 16:06 Basophilic Stippling Cancelled 06/29/19 16:06 Anisocytosis 1+ 06/30/19 06:20 Microcytosis Cancelled 06/29/19 16:06 Macrocytosis Cancelled 06/29/19 16:06 Spherocytes Cancelled 06/29/19 16:06 Target Cells Cancelled 06/29/19 16:06 Tear Drop Cells Cancelled 06/29/19 16:06 Ovalocytes Cancelled 06/29/19 16:06 Stomatocytes Cancelled 06/29/19 16:06 [place] Bodies Cancelled 06/29/19 16:06 [place] Cells Cancelled 06/29/19 16:06 Acanthocytes (Spur) Cancelled 06/29/19 16:06 Schistocytes Cancelled 06/29/19 16:06 PT 11.2 sec (9.3-11.0) H 06/30/19 06:20 INR 1.1 (0.9-1.1) 06/30/19 06:20 VBG pH 7.37 (7.35-7.45) 06/29/19 13:23 VBG pCO2 44 mm/Hg (34-47) 06/29/19 13:23 VBG pO2 108 mm/Hg (28-44) H 06/29/19 13:23 VBG HCO3 26 mmol/L (22-28) 06/29/19 13:23 VBG Total CO2 24 mmol/L (22-29) 06/29/19 13:23 VBG O2 Saturation 98 % (70-80) H 06/29/19 13:23 VBG Base Excess 0.4 mmol/L (-3-3) 06/29/19 13:23 Sodium 136 mmol/L (136-145) 06/30/19 06:20 Potassium 3.7 mmol/L (3.5-5.1) 06/30/19 06:20 Chloride 101 mmol/L (98-107) 06/30/19 06:20 Carbon Dioxide 29.6 mmol/L (21.0-32.0) 06/30/19 06:20 Anion Gap 5.4 mmol/L (3-11) 06/30/19 06:20 BUN 15 mg/dL (7-18) 06/30/19 06:20 Creatinine 1.28 mg/dL (0.55-1.02) H 06/30/19 06:20 Estimated GFR/1.73 m2 42.54 (mL/min/1.73m2) 06/30/19 06:20 Glucose 163 mg/dL (74-106) H D 06/30/19 06:20 Hemoglobin A1c 8.5 % (3.8-5.6) H 06/29/19 20:26 Calcium 8.7 mg/dL (8.5-10.1) 06/30/19 06:20 Total Bilirubin 0.3 mg/dL (0.2-1.0) 06/29/19 13:23 AST 44 U/L (15-37) H 06/29/19 13:23 ALT 41 U/L (14-59) 06/29/19 13:23 Alkaline Phosphatase 165 U/L (46-116) H 06/29/19 13:23 Troponin I < 0.05 ng/Ml (<0.06) 06/29/19 20:26 NT-Pro-B Natriuret Pep 52 pg/mL (<300) 06/29/19 13:23 Total Protein 7.7 g/dL (6.4-8.2) 06/29/19 13:23 Albumin 3.0 g/dL (3.4-5.0) L 06/29/19 13:23 COVID-19 PCR Negative (Negative) 06/29/19 16:35 Nasopharyn COVID-19 PCR Not Applicable 06/29/19 16:35 Ref Test Perform Site [facility] hospital lab 06/29/19 16:35
--- NOTE | 2019-06-30 16:44 | PDOC.CMIN ---
- If Service Date Differs Date of service: 06/30/19 Time of Service: 16:44 Care Management Initial Assess REASON FOR HOSPITALIZATION:: Pulmonary Embolism PAST MEDICAL HISTORY/PAST SURGICAL HISTORY:: C. diff, cancer related pain, carpal tunnel syndrome, chronic adrenal insufficency, chronic pain, chronic respiratory failure with hypoxia, chronic venous stasis dermatitis, COPD, Depression, DM, Diverticulosis, Dyslipidemia, hx of breast cancer, hyperlipidemia, hypopituitarism, hypothyroidism, influenza B, iron deficiency anemia, metastatic breast cancer, obesity, RAKAN, palliative care patient, pneumonia, POLST, restless leg syndrome, spinal stenosis, stage IV breast cancer in female, uncontrolled pain, bilateral mastectomy, colonoscopy with polypectomy, hx of carpal tunnel release bilat, port-a-cath in place, s/p transphenoidal pituitary resection PREVIOUS FUNCTIONAL STATUS/SOCIAL/FAMILY SUPPORTS:: Candace lives at home with her daughter in [facility]. She has two daughters who reside locally. She is currently disabled and receives [facility] highest needs; her daughter Kiki is her primary caregiver. Candace utilizes a walker for ambulation, and a wheeled walker for distance. She is dependent on her daughter for transportation to and from appointments. CURRENT FUNCTIONAL STATUS:: Candace was lying in bed when CM met with her. She stated that she was doing ok. CM asked if she still had HH services at this time, which she replied stating that she no longer has nursing, but she has PT. CM asked how things were going at home, which she said they were going well. She reported that, per provider, she may be ready for discharge tomorrow. She stated that she will be happy to return home. CM will continue to follow. ADVANCE DIRECTIVES:: On file, Kiki, daughter, listed as agent Has patient been provided with information about the portal?: Yes Did the patient sign up for the portal?: No CODE STATUS:: DNR/DNI INSURANCE COVERAGE / FINANCIAL ISSUES:: [employer], [employer] Highest Needs CURRENT HOME/COMMUNITY SERVICES/EQUIPMENT:: FWW, rollater, wheelchair, VNA PT PRIMARY CARE PHYSICIAN:: Jan Coleman POTENTIAL DISCHARGE NEEDS:: Follow up with PCP, Oncologist and discharge plan of care PATIENT/FAMILY EDUCATION NEEDS:: Review discharge instructions regarding activity levels and medications, discussion of goals of care ANTICIPATED BARRIERS TO DISCHARGE:: None identified at this time. TRANSPORTATION:: Candace will transport home via private vehicle. PLAN:: Candace will likely be discharged home with a resumption of home health services. She will follow up with her oncologist, PCP and discharghe plan. CM will continue to support patient, family and discharge planning concerns.
[2019-06-30] MEDS: fentaNYL 50 MCG PATCH TD (17:21)
[2019-06-30] MEDS: Patch Removal 1 EACH TP (17:22)
--- NOTE | 2019-06-30 18:52 | NUR.NOTE ---
Nursing Note: Patient s IV extravasated, amiphase was ordered and administered to the patient per protocol.
--- NOTE | 2019-06-30 20:41 | PCNE_ITS ---
Date of service: 06/30/19 History of Present Illness History of Present Illness Chief Complaint: c diff diarrhea, fatigue, small peripheral PE, SOB Narrative: I am familiar with Candace from previous admissions. She is chronically ill with a h.o breast cancer, recurrent sepsis, CKD, DM2, PVD. Her ECHO done today, though technially limited due to her body habitus, was relatively normal. She appears significantly older than stated age. She is very sedentary for mu ltiple reasons. Her severe obesity limits her mobility and causes dyspnea. Her CT scan was not that impressive. She was started on oral anti-coagulation today. She will transition home on it tomorrow. She looked exhausted, as she usually does. She was minimally communicative. Consults Consult date: 06/30/19 Requesting physician: Bhargavi Myers Assessment and Plan Assessment and plan (1) Pulmonary emboli: Status: Chronic Assessment and plan: small, peripheral likely due to combination of cancer and sedentary lifestyle will try oral anticoagulation (2) Toxic metabolic encephalopathy: Status: Resolved Assessment and plan: very sleepy when I was seeing her drowsy not alert (3) C. difficile colitis: Status: Acute Assessment and plan: on appropriate abx from hospitalist team (4) Stage IV breast cancer in female: Status: Chronic Assessment and plan: continuing treatment pain is well controlled Review of Systems Narrative: Constitutional: Negative for weight loss, alert and oriented, well groomed morbidly obese body habitus, appears comfortable. HEENT: Denies trauma, headaches, blurry vision, nasal discharge, sore throat, trouble swallowing. Chest: Denies chest pain, palpitations, irregular rhythm, hypertension. Respiratory: Denies Shortness of breath, cough, hemoptysis. GI: Reports abdominal bloating, diarrhea, denies nausea or vomiting. : Denies rectal bleeding, positive flank pain, positive increased frequency. Neuro: Denies dizziness, blurry vision, syncope, headache or facial numbness. Positive weakness Hematologic: Denies easy bruising, intolerance to heat or cold, hair loss. [facility] Medical History C. difficile diarrhea (Acute) Cancer related pain (Chronic) much improved with fentanyl patch Carpal tunnel syndrome (Acute) Chronic adrenal insufficiency (Acute) Chronic pain (Chronic) Chronic respiratory failure with hypoxia (Chronic) Chronic venous stasis dermatitis (Chronic) COPD (chronic obstructive pulmonary disease) (Chronic) On nocturnal oxygen - 2L prn Depression (Chronic) Diabetes mellitus (Chronic) Insulin dependent Diverticulosis (Acute) Dyslipidemia (Chronic) Goals of care, counseling/discussion (Acute) History of breast cancer (Chronic) metastatic, with lymphatic spread and bone mets Hyperlipidemia (Acute) Hypopituitarism (Chronic) Hypothyroidism (Chronic) Influenza B (Acute) Iron deficiency anemia (Acute) Metastatic breast cancer (Chronic) Obesity (Chronic) Obstructive sleep apnea (Chronic) per [facility] records Palliative care patient (Chronic) Pneumonia (Acute) POLST (Physician Orders for Life-Sustaining Treatment) (Acute) done 03/26/19; sent to [facility], [facility], [facility], original to her Restless leg syndrome (Acute) Spinal stenosis (Acute) Stage IV breast cancer in female (Chronic) Uncontrolled pain (Resolved) Surgical History H/O bilateral mastectomy (Acute) H/O colonoscopy with polypectomy (Acute) History of carpal tunnel release of both wrists (Acute) Port-A-Cath in place (Acute) Status post transsphenoidal pituitary resection (Acute) Family History Father , age 83 from complications of diabetes Prostate cancer Diabetes Mother , age 79 from complications of Crohn's disease and colitis Crohn's disease Colitis Daughter No problems noted. Daughter No problems noted. Brother No problems noted. Sister Diabetes Obesity Sister No problems noted. Sister No problems noted. Sister No problems noted. Social History Smoking/Tobacco Use Status: Former Tobacco Use Alcohol Intake: never Drug use: Never Substance use type: does not use Caregiver/Support person: Yes Household members: children Number of Children: 2 Communication Needs: Hard of Hearing and Corrective Lenses Education Level: middle school Do you need help understanding health information?: Always current occupation: on disability What is your relationship status?: How often do you talk on the phone with friends or family?: once per week How often do you get together with friends or relatives?: three or more times per week Panel score (0-1 are the most socially isolated patients): 1 What type of physical activity do you participate in: none, sedentary lifestyle, wheelchair-bound and additional Details: needs a new wheelchair, cannot walk far, just a few steps Special pedro pablo needs: No Do you feel safe at home: Yes Do you feel safe in your relationship?: Yes Additional Social history: , with 2 children. She is not working and on disability. Has a history of tobacco, quit in 1992. Reports rare use of alco hol only. Lives with daughter. Uses a walker to ambulate. Hard to do recently, depending more on WC. In a lot of pain. Recent scans show progression of breast cancer. Exam Const General: cooperative, no acute distress and ill appearing chronically Nutritional Appearance: obese Orientation: alert, awake and oriented x3 HENMT Head: normal to inspection, normocephalic and atraumatic Mouth: oral mucosae normal Resp Effort & Inspection: normal respiratory effort Auscultation: clear to auscultation bilaterally and diminished lung sounds Cardio Rate: regular rate Rhythm: regular rhythm Skin Rashes: no rashes Neuro General: patient alert, patient awake and patient oriented x3 Cognition: normal cognition Speech: speech normal Extrem General: edema Laterality: bilateral Psych Mental Status: mental status grossly normal Speech and Movement: speech and movement normal Affect: blunted Attitude: cooperative Results Last Vital Signs Temp 97.7 F 06/30/19 07:32 Pulse 76 06/30/19 07:32 Resp 17 06/30/19 07:32 BP 115/69 06/30/19 07:32 Pulse Ox 90 L 06/30/19 07:32 Labs Result diagrams: 06/30/19 06:20 06/30/19 06:20 Labs: Laboratory Results - last 24 hr 06/29/19 06/29/19 06/29/19 16:35 20:26 20:26 WBC RBC Hgb Hct MCV MCH MCHC RDW Plt Count MPV Immature Gran % Neutrophils % Lymphocytes % Monocytes % Eosinophils % Basophils % Absolute Neutrophils Absolute Lymphocytes Absolute Monocytes Absolute Eosinophils Absolute Basophils Differential Comment RBC Morphology Hypochromasia Anisocytosis PT INR Sodium Potassium Chloride Carbon Dioxide Anion Gap BUN Creatinine Estimated GFR/1.73 m2 Glucose Hemoglobin A1c 8.5 H Calcium Troponin I < 0.05 COVID-19 PCR Negative Nasopharyn COVID-19 PCR Not Applicable Ref Test Perform Site [facility] lab 06/30/19 06/30/19 06/30/19 06:20 06:20 06:20 WBC 4.01 L RBC 3.21 L Hgb 9.6 L Hct 30.5 L MCV 95.0 MCH 29.9 MCHC 31.5 L RDW 16.8 H Plt Count 244 MPV 9.1 Immature Gran % 0.0 Neutrophils % 58.9 Lymphocytes % 31.9 Monocytes % 6.0 Eosinophils % 3.0 Basophils % 0.2 Absolute Neutrophils 2.36 Absolute Lymphocytes 1.28 Absolute Monocytes 0.24 Absolute Eosinophils 0.12 Absolute Basophils 0.01 Differential Comment Rbc morph reviewed RBC Morphology See below Hypochromasia 1+ Anisocytosis 1+ PT 11.2 H INR 1.1 Sodium 136 Potassium 3.7 Chloride 101 Carbon Dioxide 29.6 Anion Gap 5.4 BUN 15 Creatinine 1.28 H Estimated GFR/1.73 m2 42.54 Glucose 163 H D Hemoglobin A1c Calcium 8.7 Troponin I COVID-19 PCR Nasopharyn COVID-19 PCR Ref Test Perform Site
[2019-06-30] MEDS: Apixaban 5 MG TAB 10 MG PO (20:50)
[2019-06-30] MEDS: DULoxetine 30 MG CAP 60 MG PO (21:20)
[2019-06-30] MEDS: Atorvastatin 20 MG TAB 40 MG PO (21:20)
[2019-06-30] MEDS: Melatonin 3 MG TAB 6 MG PO (21:20)
[2019-07-01 00:54] VITALS: BP 97/53; PULSE 80; RESP 18; TEMP 37.3; O2SAT 88
[2019-07-01 07:06] LABS: INR 1.2 (0.9-1.1); Prothrombin Time 11.6 sec (9.3-11.0)
[2019-07-01 07:15] VITALS: BP 127/66; PULSE 78; RESP 19; TEMP 36.6; O2SAT 92
[2019-07-01] MEDS: Tiotropium Bromide-Respimat 10 PUFF INH IH (08:01)
[2019-07-01] MEDS: Budesonide/Formoterol 160/4.5 6 GM 60 PUFF INH IH (08:01)
[2019-07-01 08:05] VITALS: O2SAT 87
[2019-07-01 08:06] VITALS: O2SAT 93
[2019-07-01] MEDS: Insulin Aspart 300 UNITS/3 ML PEN SC (08:21)
[2019-07-01] MEDS: metroNIDAZOLE 500 MG TAB PO (08:22)
[2019-07-01] MEDS: Pregabalin 100 MG CAP 200 MG PO (08:22)
[2019-07-01] MEDS: Ferrous Sulfate 325 MG TAB PO (08:22)
[2019-07-01] MEDS: Folic Acid 1 MG TAB PO (08:22)
[2019-07-01] MEDS: guaiFENesin 600 MG TABCR PO (08:22)
[2019-07-01] MEDS: Cetirizine 10 MG TAB PO (08:22)
[2019-07-01] MEDS: Levothyroxine 75 MCG TAB 150 MCG PO (08:22)
[2019-07-01] MEDS: Montelukast 10 MG TAB PO (08:22)
[2019-07-01] MEDS: Loratidine 10 MG TAB PO (08:23)
[2019-07-01] MEDS: carBAMazepine 200 MG TAB PO (08:23)
[2019-07-01] MEDS: Cyanocobalamin 500 MCG TAB 1000 MCG PO (08:23)
[2019-07-01] MEDS: Apixaban 5 MG TAB 10 MG PO (08:23)
[2019-07-01] MEDS: Letrozole 2.5 MG TAB PO (08:23)
--- NOTE | 2019-07-01 09:47 | DM INPTCON_ITS ---
Date of service: 07/05/19 Time of Service: 09:47 Diabetes Inpatient Consult DESCRIPTION/ASSESSMENT: 59 year old female admitted with pulmonary emboli and C diff colitis. History of Breast CA, IDDM, COPD, CKD3. BMI of 50 indicates morbid obesity. Blood sugar since admission moderately elevated (150-200 mg/dl), recent A1C 8.5%(06/29/19) indicating elevated blood sugars in last 90 days. Met with Candace today bedside and provided diabetes and weight management education. She was very tired but accepted written materials ([facility] Diabetes Meal Guidelines) and contact information. Recommended follow up with PCP when discharged to fine tune insulin dosage for optimal blood sugar control and follow up with [facility] CDE outpatient counseling. Following diabetic diet with adequate intake (>75%), colitis not affecting po intake at this time. Not at risk for nutritional decline at this time. INTERVENTION: Diabetes education Diabetic Diet PLAN: Follow up with PCP and CDE after discharge for optimal blood sugar contrik will monitor po intake, labs and weight and adjust meal plan as needed while in house Time Spent in Nutritional Counseling and Treatment: 10 min spent face to face
--- NOTE | 2019-07-01 10:36 | W.PM.DS.N ---
Date of service: 07/01/19 Time of Service: 10:36 DS: Diagnosis Discharge Diagnosis (1) Pulmonary emboli: Status: Chronic Asessment and Plan: Was started on apixaban and is receiving 10 milligrams twice daily for total of 7 days and then will reduce to 5 mg twice daily as recommended per heme-onc at [facility]. Respiratory status has been stable and echocardiogram shows no RV strain (2) C. difficile colitis: Status: Acute Asessment and Plan: , No longer having loose stools will continue her previous regimen with Flagyl and vancomycin as previously recommended. (3) Stage IV breast cancer in female: Status: Chronic Asessment and Plan: Palliative care patient Discharge Plan Disposition Patient Disposition: HOME W/HOME HEALTH SERVICE Condition: Good Discharge Details Chief Complaint: SOB Clinical Impression: Pulmonary embolism, Acute dyspnea Reason For Visit: PULMONARY EMBOLISM Admit Date/Time: 06/29/19 16:03 Admit Provider: Sheyla Reno Attending Provider: Sheyla Reno Primary Care Provider: ANNA TORO ED Provider: Jairon Olivera Hospital Course Hospital Course: , This is a chronically ill 59-year-old female patient with a past medical history significant for breast cancer diabetes mellitus type 2 chronic kidney disease who [facility] with a 2 to 3-day history of what she reports shortness of breath she denied any chest pain. Work-up in the emergency department included a CT a which did show left subsegmental suspicion for pulmonary emboli the rest of her work-up was unremarkable. There was no evidence of pneumonia she was not wheezing so no evidence of COPD exacerbation. There was no cough her COVID screen was negative. She initially was placed on Lovenox with plan to transition to warfarin but after discussion with heme-onc at [facility] it was decided that she would be best on apixaban. She was complaining of vague complaints of fatigue she reported her respiratory status was improved. She was eating and drinking and hemodynamically stable. She did have an echocardiogram which did not demonstrate any strain on her right ventricle. EKG echo limited due to her body habitus but was relatively normal. She did see Dr Nevaeh Braswell who follows her on palliative care. She did not have any new recommendations to the current treatment plan. When discussing discharge to home patient was reluctant to go appearing quite fatigued with that is her chief complaint but when we discussed rehab potential as a discharge option she became quite alert and much more at what is likely her baseline. I do wonder if there is a component of depression with her vague symptoms. Plan for discharge home was discussed with patient and her daughter and both are in agreement as she is medically stable. She will be discharged on apixaban 10 mg twice daily to complete 7 days of a loading dose then will decrease to 5 mg twice daily as recommended by Dr. Gatica at [facility]. Her home health services including nursing PT and certified medical transcriptionist will continue as prior to observation stay. Home Meds and New Rx's Prescriptions: New Eliquis 5 mg Tablet 10 mg PO BID Qty: 41 RF: 0 Continued pregabalin [Lyrica] 200 MG capsule 200 mg PO TID RF: 0 montelukast [Singulair] 10 MG tablet 10 mg PO DAILY RF: 0 cetirizine [Zyrtec] 10 MG tablet 10 mg PO DAILY RF: 0 ferrous sulfate 325 MG tablet 325 mg PO TID RF: 0 carbamazepine 200 MG tablet 200 mg PO BID RF: 0 atorvastatin [Lipitor] 20 MG tablet 40 mg PO HS RF: 0 cyanocobalamin (vitamin B-12) [Vitamin B-12] 1,000 MCG tablet 1,000 mcg PO DAILY RF: 0 folic acid 1 MG tablet 1 mg PO DAILY RF: 0 Spiriva Respimat 4 GM mist 1 puff Inhalation DAILY RF: 0 budesonide-formoterol [Symbicort] 10.2 GM HFA aerosol inhaler 2 puff Inhalation BID RF: 0 ondansetron HCl [Zofran] 8 MG tablet 8 mg PO TID PRNRF: 0 hydrocortisone 5 mg Tablet 5 mg PO QNOON RF: 0 levothyroxine 150 mcg Tablet 150 mcg PO DAILY RF: 0 Trulicity 1.5 mg/0.5 mL Pen Injector 1.5 mg SUBCUT QWEEK RF: 0 benzonatate 200 mg Capsule 200 mg PO TID PRN (Reason: cough) Qty: 15 RF: 0 guaifenesin [Mucinex] 600 mg Tablet Extended Release 12hr 600 mg PO BID Qty: 10 RF: 0 Cholestyramine Light 4 gram Powder 4 g PO BID PRNRF: 0 Humulin R U-500 (Conc) Kwikpen 500 unit/mL (3 mL) Insulin Pen 30 unit SUBCUT QNOON Qty: 0 RF: 0 Humulin R U-500 (Conc) Kwikpen 500 unit/mL (3 mL) Insulin Pen 70 unit SUBCUT QAM Qty: 0 RF: 0 Humulin R U-500 (Conc) Kwikpen 500 unit/mL (3 mL) Insulin Pen 30 unit SUBCUT QPM Qty: 0 RF: 0 fentanyl 50 mcg/hr patch 72 hour 1 patch TD Q72H Qty: 2 RF: 0 loratadine 10 mg Tablet 10 mg PO DAILY RF: 0 duloxetine [Cymbalta] 60 mg Capsule,Delayed Release(Dr/Ec) 60 mg PO HS RF: 0 letrozole 2.5 mg Tablet 2.5 mg PO DAILY RF: 0 Prevalite 4 gram Powder In Packet 4 g PO BID@1000,2000 PRN (Reason: prn diarrhea) Qty: 10 RF: 0 ranitidine HCl 300 mg capsule 300 mg PO QHS Qty: 30 RF: 0 Lactobacillus acidophilus Capsule 1,000 mmu cells PO DAILY Qty: 30 RF: 0 hydrocodone-acetaminophen 5-325 mg Tablet 2 tab PO Q4H PRN PRNQty: 5 RF: 0 metronidazole [Flagyl] 500 mg tablet 500 mg PO TID Qty: 27 RF: 0 vancomycin [Vancocin] 125 mg capsule 125 mg PO DAILY Qty: 7 RF: 0 vancomycin [Vancocin] 125 mg capsule 125 mg PO .Q2-3D Qty: 16 RF: 0 Discharge Instructions Instructions: Pulmonary Embolism (DC) Additional Instructions: you need to continue taking eliquis 10 mg 2 times daily for 5 more days, then decreased to 5 mg twice daily. Stand Alone Forms: Nursing Discharge Form Referrals: ANNA TORO [Primary Care Provider] - 07/08/19 10:20 am (BY [facility]) Activity:: Activity as Tolerated Equipment/Supplies:: No Equipment Needed Diet:: Carb Counting Discharge Orders Discharge Orders: Discharge Order (Routine); Ordered 07/01/19 Ordered By: Bhargavi Myers Discharge Data Discharge Date/Time-TO BE ENTERED AT DEPARTURE: 07/01/19 11:48 DS: Summary Status at Discharge Functional status at discharge: bed bound Overall status at discharge: other (patient plan of care was discussed with Dr Reno who is in agreement, covid 19 testing was negative.) Mental Status: mental status grossly normal and other (Depressed) Speech and Movement: speech and movement normal Mood: other (Depressed) Affect: other (Flat affect) Exam Const General: no acute distress, frail appearing and ill appearing chronically Nutritional Appearance: obese Orientation: awake and oriented x3 HENMT Head: normal to inspection, normocephalic and atraumatic Face and sinus: normal facial exam Mouth: oral mucosae normal Resp Effort & Inspection: normal respiratory effort, able to speak in complete sentences, no cough, no respiratory distress and not tachypneic Auscultation: clear to auscultation bilaterally and diminished lung sounds (Due to body habitus and poor inspiratory effort) bilaterally Cardio Rate: regular rate Rhythm: regular rhythm GI Inspection: large pannus and obesity Skin General skin exam: no rashes or lesions noted Neuro General: patient awake and patient oriented x3 Cognition: normal cognition Speech: speech normal Motor: muscle tone normal throughout Extrem General: normal to inspection and full ROM Psych Appearance: grossly normal Mental Status: mental status grossly normal and other (Depressed) Speech and Movement: speech and movement normal Mood: other (Depressed) Affect: other (Flat affect) Attitude: cooperative and guarded Thought Process: normal Thought Content: normal Insight: fair Judgment: fair DS: Data Vitals/I&O Vitals and I&O: Vital Signs Temperature 36.6 C 07/01/19 07:15 Temperature Source Tympanic 07/01/19 07:15 Pulse 78 07/01/19 07:15 Pulse Rhythm Regular 07/01/19 02:10 Pulse 93 H 06/29/19 14:40 Respiratory Rate 19 07/01/19 07:15 Respiratory Effort Non-Labored 07/01/19 02:10 Respiratory Depth Normal 07/01/19 02:10 Respiratory Pattern Normal 07/01/19 02:10 Blood Pressure 127/66 07/01/19 07:15 Blood Pressure Mean 73 06/29/19 15:31 Pulse Oximetry 93 L 07/01/19 08:06 Oxygen Delivery Method Nasal Cannula 07/01/19 08:06 Oxygen Flow Rate 1 07/01/19 08:06 Pain Level 9 07/01/19 07:15 Comment 07/01/19 00:54 Intake & Output 06/30/19 06/30/19 07/01/19 11:59 23:59 11:59 Intake Total 700 / 700 Balance 700 / 700 Weight 155.1 kg 155.1 kg Intake: IV 500 / 500 Oral 200 / 200 Other: Urine Color Yellow Straw Urine Appearance Clear Clear Urine Odor None Normal Comment lg incontinence patient is incontinent of urine +++++ Stool Size Large Moderate Stool Characteristics Brown Soft Liquid Voiding Methods Diaper Diaper Incontinent Data Completed and Pending Labs on day of discharge: Labs from last 24 hours 07/01/19 06:05 PT 11.6 H INR 1.2 H PFSH Medical History C. difficile diarrhea (Acute) Cancer related pain (Chronic) much improved with fentanyl patch Carpal tunnel syndrome (Acute) Chronic adrenal insufficiency (Acute) Chronic pain (Chronic) Chronic respiratory failure with hypoxia (Chronic) Chronic venous stasis dermatitis (Chronic) COPD (chronic obstructive pulmonary disease) (Chronic) On nocturnal oxygen - 2L prn Depression (Chronic) Diabetes mellitus (Chronic) Insulin dependent Diverticulosis (Acute) Dyslipidemia (Chronic) Goals of care, counseling/discussion (Acute) History of breast cancer (Chronic) metastatic, with lymphatic spread and bone mets Hyperlipidemia (Acute) Hypopituitarism (Chronic) Hypothyroidism (Chronic) Influenza B (Acute) Iron deficiency anemia (Acute) Metastatic breast cancer (Chronic) Obesity (Chronic) Obstructive sleep apnea (Chronic) per [facility] records Palliative care patient (Chronic) Pneumonia (Acute) POLST (Physician Orders for Life-Sustaining Treatment) (Acute) done 03/26/19; sent to [facility], [facility], [facility], original to her Restless leg syndrome (Acute) Spinal stenosis (Acute) Stage IV breast cancer in female (Chronic) Uncontrolled pain (Resolved) Surgical History H/O bilateral mastectomy (Acute) H/O colonoscopy with polypectomy (Acute) History of carpal tunnel release of both wrists (Acute) Port-A-Cath in place (Acute) Status post transsphenoidal pituitary resection (Acute) Family History Father , age 83 from complications of diabetes Prostate cancer Diabetes Mother , age 79 from complications of Crohn's disease and colitis Crohn's disease Colitis Daughter No problems noted. Daughter No problems noted. Brother No problems noted. Sister Diabetes Obesity Sister No problems noted. Sister No problems noted. Sister No problems noted. Social History Smoking/Tobacco Use Status: Former Tobacco Use Alcohol Intake: never Drug use: Never Substance use type: does not use Caregiver/Support person: Yes Household members: children Number of Children: 2 Communication Needs: Hard of Hearing and Corrective Lenses Education Level: middle school Do you need help understanding health information?: Always current occupation: on disability What is your relationship status?: How often do you talk on the phone with friends or family?: once per week How often do you get together with friends or relatives?: three or more times per week Panel score (0-1 are the most socially isolated patients): 1 What type of physical activity do you participate in: none, sedentary lifestyle, wheelchair-bound and additional Details: needs a new wheelchair, cannot walk far, just a few steps Special pedro pablo needs: No Do you feel safe at home: Yes Do you feel safe in your relationship?: Yes Additional Social history: , with 2 children. She is not working and on disability. Has a history of tobacco, quit in 1992. Reports rare use of alcohol only. Lives with daughter. Uses a walker to ambulate. Hard to do recently, depending more on WC. In a lot of pain. Recent scans show progression of breast cancer.
[2019-07-01 11:10] VITALS: BP 133/24; PULSE 77; RESP 18; TEMP 37.2; O2SAT 93
--- NOTE | 2019-07-01 15:39 | CMDISCH_ITS ---
- If Service Date Differs Date of service: 07/01/19 Time of Service: 15:39 LACE Index Scoring Tool - Questions: Length of Stay (in days): 3 Acuity (Admit via E.D.?): Yes Comorbidities: Diabetes w/o Complication, Chronic Pulmonary Disease, Mild Liver/Renal Disease E.D. Visits: 7 - Answers: Total Score: 15 Risk of Readmission: High Risk Care Management Discharge Reason for Hospitalization: Pulmonary Embolism Discharge Plan: Candace will return home with a resumption of services. Her daughter, Kiki, who is her primary personal care service provider, will drive her home via private vehicle. She will have a new prescription for Eloquis, which CM called to confirm copay from the pharmacy ($0 copay). She will follow up with her PCP, and discharge plan of care. She is agreeable to returning home. Patient/Family Education Needs: Review discharge instructions regarding activity levels and medications, discussion of self care needs including ask me three and goals of care. Services Needed at Discharge: Home Health Care Services (Chuy daniel/Janel ELI)
== END 2019-07-01 11:48 | disposition home health service (06) ==
LOC: ER 16:40 → MS 16:43
PROVIDERS: Nurse Practitioner Acute Care; Admitting Provider Internal Medicine; Emergency Provider Student in an Organized Health Care Education/Training Program; PCP Nurse Practitioner Family; Visit Provider Internal Medicine
DX: I26.94 Multiple subsegmental thrombotic pulmonary emboli without acute cor pulmonale (principal); A04.71 Enterocolitis due to Clostridium difficile, recurrent; C34.90 Malignant neoplasm of unspecified part of unspecified bronchus or lung; N17.9 Acute kidney failure, unspecified; Z11.59 Encounter for screening for other viral diseases; R53.83 Other fatigue; Z51.5 Encounter for palliative care; E11.22 Type 2 diabetes mellitus with diabetic chronic kidney disease; N18.9 Chronic kidney disease, unspecified; R06.09 Other forms of dyspnea; E03.9 Hypothyroidism, unspecified; E66.01 Morbid (severe) obesity due to excess calories; Z68.43 Body mass index [BMI] 50.0-59.9, adult
CPT/HCPCS: 36415; 71275; 80048; 80053; 82805; 93005; 93306; 94640; 97161; 99220; 99226; 99239; 99253; 99285; U0003; 83036; 83880; 84484; 85025; 85610; 93010; 93970; 99217; G0378; J1650; J3490

== ENCOUNTER 2019-07-25 11:32 | Emergency (ER) | payer MEDICARE, MEDICAID, SELFPAY ==
[2019-07-25] VITALS (10 sets, daily range): BP systolic 123; BP diastolic 49; PULSE 93–100; RESP 18; TEMP 36.5; O2SAT 93–97
--- NOTE | 2019-07-25 11:35 | ED.GENADUL_ITS ---
Discharge Plan Disposition Patient Disposition: HOME Condition: Fair Discharge Details Chief Complaint: GenMedical Clinical Impression: Acute kidney injury superimposed on chronic kidney disease, Pneumonia, Hyperglycemia, Acute dehydration Primary Care Provider: ANNA TORO ED Provider: Payton Gale Home Meds and New Rx's Prescriptions: New doxycycline hyclate 100 mg capsule 100 mg PO BID Qty: 14 RF: 0 Continued pregabalin [Lyrica] 200 MG capsule 200 mg PO TID RF: 0 montelukast [Singulair] 10 MG tablet 10 mg PO DAILY RF: 0 cetirizine [Zyrtec] 10 MG tablet 10 mg PO DAILY RF: 0 carbamazepine 200 MG tablet 200 mg PO BID RF: 0 atorvastatin [Lipitor] 20 MG tablet 40 mg PO HS RF: 0 cyanocobalamin (vitamin B-12) [Vitamin B-12] 1,000 MCG tablet 1,000 mcg PO DAILY RF: 0 folic acid 1 MG tablet 1 mg PO DAILY RF: 0 Spiriva Respimat 4 GM mist 1 puff Inhalation DAILY RF: 0 budesonide-formoterol [Symbicort] 10.2 GM HFA aerosol inhaler 2 puff Inhalation BID RF: 0 ondansetron HCl [Zofran] 8 MG tablet 8 mg PO TID PRNRF: 0 hydrocortisone 5 mg Tablet 5 mg PO QNOON RF: 0 levothyroxine 150 mcg Tablet 150 mcg PO DAILY RF: 0 Trulicity 1.5 mg/0.5 mL Pen Injector 1.5 mg SUBCUT QWEEK RF: 0 benzonatate 200 mg Capsule 200 mg PO TID PRN (Reason: cough) Qty: 15 RF: 0 guaifenesin [Mucinex] 600 mg Tablet Extended Release 12hr 600 mg PO BID Qty: 10 RF: 0 Cholestyramine Light 4 gram Powder 4 g PO BID PRNRF: 0 Humulin R U-500 (Conc) Kwikpen 500 unit/mL (3 mL) Insulin Pen 30 unit SUBCUT QNOON Qty: 0 RF: 0 Humulin R U-500 (Conc) Kwikpen 500 unit/mL (3 mL) Insulin Pen 70 unit SUBCUT QAM Qty: 0 RF: 0 Humulin R U-500 (Conc) Kwikpen 500 unit/mL (3 mL) Insulin Pen 30 unit SUBCUT QPM Qty: 0 RF: 0 fentanyl 50 mcg/hr patch 72 hour 1 patch TD Q72H Qty: 2 RF: 0 Eliquis 5 mg Tablet 10 mg PO BID Qty: 41 RF: 0 loratadine 10 mg Tablet 10 mg PO DAILY RF: 0 duloxetine [Cymbalta] 60 mg Capsule,Delayed Release(Dr/Ec) 60 mg PO HS RF: 0 letrozole 2.5 mg Tablet 2.5 mg PO DAILY RF: 0 Prevalite 4 gram Powder In Packet 4 g PO BID@1000,2000 PRN (Reason: prn diarrhea) Qty: 10 RF: 0 ranitidine HCl 300 mg capsule 300 mg PO QHS Qty: 30 RF: 0 Lactobacillus acidophilus Capsule 1,000 mmu cells PO DAILY Qty: 30 RF: 0 hydrocodone-acetaminophen 5-325 mg Tablet 2 tab PO Q4H PRN PRNQty: 5 RF: 0 metronidazole [Flagyl] 500 mg tablet 500 mg PO TID Qty: 27 RF: 0 vancomycin [Vancocin] 125 mg capsule 125 mg PO DAILY Qty: 7 RF: 0 vancomycin [Vancocin] 125 mg capsule 125 mg PO .Q2-3D Qty: 16 RF: 0 Discontinued ferrous sulfate 325 MG tablet 325 mg PO TID RF: 0 Discharge Instructions Instructions: Dehydration (ED), Pneumonia (ED) Additional Instructions: Encourage water intake. You had a change in your kidney function likely associated with dehydration. I would like for this to be reassessed by her primary care this week. Your x-rays show findings of pneumonia. Please take the doxycycline as prescribed. Please hold off on taking your iron supplement while on the doxycycline. Please contact your primary care on Friday to schedule prompt follow-up appointment and to discuss continuation of the vancomycin as discussed. You may continue with your home oxygen as she typically would. Your oxygen has been maintained while here. COVID-19 testing will be ordered to be completed at outpatient tent. Please remain quarantined until testing has been completed and you have results. If you develop chest pain, increased work of breathing or other new/worsening symptoms please seek care urgently once again. Referrals: ANNA TORO [Primary Care Provider] - Medical Decision Making Patient is a pleasant 59-year-old female, well-known to myself, presenting today with chief complaint of shortness of breath that began suddenly yesterday at 2 PM. She reports that this is worse with exertion. She is chronically on home O2. Past medical history significant for pulmonary emboli for which the patient is on Eliquis. She has states that she has been taking this as prescribed. Also significant for C. difficile colitis, toxic metabolic encephalopathy, peripheral vascular disease, weakness, RAKAN, metastatic breast cancer, DVT, dyslipidemia morbid obesity, diabetes, COPD, hypopituitary. Patient is chronically on vancomycin for her C. difficile. Patient has chronic shortness of breath for which she uses home O2 intermittently. She reports that this does not feel like her previous pulmonary emboli. Denies any GI upset. Denies fevers or chills. No cough. Denies any recent change in medications. Has been taking her medications on a daily basis. On exam, patient appears to be at her baseline. Patient is morbidly obese. She does appear short of breath with exertion and movement but otherwise is oxygenating well. Oxygen is 95% on room air. Her lungs are clear. Normal cardiac exam. Patient does have some lower extremity edema that this is baseline and reported to be unchanged. Chronic skin discoloration of bilateral lower extremities are also noted. Abdominal exam is benign. EKG was reviewed by Dr. Encarnacion. Patient she also showed more than 98. No acute ischemic changes noted. Patient is not hypoxic, not tachycardic. Patient reports this does not feel like her pulmonary embolism has historically. She has been taking her Eliquis as prescribed and has not missed any doses. For this reason, I do not feel that screening for pulmonary embolism is warranted at this time and may lead to a needed testing BNP will be obtained as the patient has been short of breath and has a history of CHF. Patient is denying any infectious symptoms but pneumonia is on the differential, as is COPD exacerbation or ACS. Patient has had no chest pain and is otherwise appearing well, I find ACS less likely. Lungs are clear without wheezing. Labs reviewed. No leukocytosis. Patient is anemic but this is baseline. Creatinine is elevated 1.60. This is not unusual for her. She did appear dehydrated on exam. Will give a 500 cc bolus. Hesitant to give more than this the patient's history of CHF. Glucose is elevated at 325 but this is baseline for the patient. Troponin less than 0.05. BNP within normal limits. FINDINGS: Lungs: Opacity in the left base may represent atelectasis or pneumonia. Pleural space: Unremarkable. No pleural effusion. No pneumothorax. Heart/Mediastinum: Cardiomegaly Vasculature: MediPort terminates in the superior vena cava Bones/joints: Stable IMPRESSION: Opacity in the left base may represent atelectasis or pneumonia. Discussed these findings with patient. She is feeling improved after the 500 cc bolus. Tolerated the doxycycline well. Advised that she hold off on her own and will take the doxycycline. At the patient's request, I did speak with her daughter. The daughter advised that she must complete her course of vancomycin. She has enough the next few days. However, team concern with patient doxycycline she should likely continue on the oral Vanco and will defer this change to primary care. I have asked that she have her kidney function rechecked this week as she did have the bump in her creatinine. Patient feels that she is to be discharged home. We discussed return precautions. As patient was endorsing shortness of breath, I feel that COVID-19 testing is appropriate although patient denies any sick contacts. #8 outpatient testing and will asked that the 10 to call to schedule follow-up appointment. In the interim, I have asked the patient to quarantine. All of the patient's questions and concerns were addressed and she is in agreement with this plan. HPI General Mode of arrival: wheelchair . Date/Time Provider Initiated Documentation: 07/25/19 11:35 . Limitations to Documentation: no limitations . Information obtained by: patient and RN notes reviewed . History of Present Illness 59 year old F presents to the emergency department with the chief complaint of SOB, fatigue and weakness, described as moderate, and is localized to the chest. Patient started experiencing this day(s) (1400 yesterday) and it has been constant. Immobilization improves symptom(s), Movement worsens symptoms . Patient notes shortness of breath and weakness ( generalized); denies chest pain, cough, diaphoresis, fever/chills, loss of appetite and nausea/vomiting. Patient did receive the following treatments prior to arrival, none Related Data Home Medications Medication Instructions Recorded Confirmed Spiriva Respimat 1 puff INHALATION DAILY 04/03/17 06/29/19 atorvastatin [Lipitor] 40 mg PO HS 04/03/17 06/29/19 budesonide-formoterol [Symbicort] 2 puff INHALATION BID 04/03/17 06/29/19 carbamazepine 200 mg PO BID 04/03/17 06/29/19 cetirizine [Zyrtec] 10 mg PO DAILY 04/03/17 06/29/19 cyanocobalamin (vitamin B-12) 1,000 mcg PO DAILY 04/03/17 06/29/19 [Vitamin B-12] folic acid 1 mg PO DAILY 04/03/17 06/29/19 montelukast [Singulair] 10 mg PO DAILY 04/03/17 06/29/19 ondansetron HCl [Zofran] 8 mg PO TID PRN 04/03/17 06/29/19 pregabalin [Lyrica] 200 mg PO TID 04/03/17 06/29/19 Trulicity 1.5 mg SUBCUT QWEEK 05/06/18 06/29/19 hydrocortisone 5 mg PO QNOON 05/06/18 06/29/19 levothyroxine 150 mcg PO DAILY 05/06/18 06/29/19 benzonatate 200 mg PO TID PRN #15 cap 05/10/18 06/29/19 guaifenesin [Mucinex] 600 mg PO BID #10 tab 05/10/18 06/29/19 duloxetine [Cymbalta] 60 mg PO HS 02/02/19 06/29/19 loratadine 10 mg PO DAILY 02/02/19 06/29/19 Lactobacillus acidophilus 1,000 mmu cells PO DAILY #30 cap 02/04/19 06/29/19 Prevalite 4 g PO BID@1000,2000 PRN #10 each 02/04/19 06/29/19 letrozole 2.5 mg PO DAILY 02/04/19 06/29/19 ranitidine HCl 300 mg PO QHS #30 cap 02/04/19 06/29/19 hydrocodone-acetaminophen 2 tab PO Q4H PRN PRN #5 tab 03/28/19 06/29/19 Cholestyramine Light 4 g PO BID PRN 04/16/19 06/29/19 Humulin R U-500 (Conc) Kwikpen 30 unit SUBCUT QNOON #0 ml 04/20/19 06/29/19 Humulin R U-500 (Conc) Kwikpen 30 unit SUBCUT QPM #0 ml 04/20/19 06/29/19 Humulin R U-500 (Conc) Kwikpen 70 unit SUBCUT QAM #0 ml 04/20/19 06/29/19 fentanyl 1 patch TD Q72H #2 each 04/20/19 06/29/19 metronidazole [Flagyl] 500 mg PO TID #27 tab 05/08/19 06/29/19 vancomycin [Vancocin] 125 mg PO .Q2-3D #16 cap 05/08/19 06/29/19 vancomycin [Vancocin] 125 mg PO DAILY #7 cap 05/08/19 06/29/19 Eliquis 10 mg PO BID #41 tab 07/01/19 doxycycline hyclate 100 mg PO BID #14 cap 07/25/19 Previous Rx's Medication Instructions Recorded benzonatate 200 mg PO TID PRN #15 cap 05/10/18 guaifenesin [Mucinex] 600 mg PO BID #10 tab 05/10/18 Lactobacillus acidophilus 1,000 mmu cells PO DAILY #30 cap 02/04/19 Prevalite 4 g PO BID@1000,2000 PRN #10 each 02/04/19 ranitidine HCl 300 mg PO QHS #30 cap 02/04/19 hydrocodone-acetaminophen 2 tab PO Q4H PRN PRN #5 tab 03/28/19 Humulin R U-500 (Conc) Kwikpen 30 unit SUBCUT QNOON #0 ml 04/20/19 Humulin R U-500 (Conc) Kwikpen 30 unit SUBCUT QPM #0 ml 04/20/19 Humulin R U-500 (Conc) Kwikpen 70 unit SUBCUT QAM #0 ml 04/20/19 fentanyl 1 patch TD Q72H #2 each 04/20/19 metronidazole [Flagyl] 500 mg PO TID #27 tab 05/08/19 vancomycin [Vancocin] 125 mg PO .Q2-3D #16 cap 05/08/19 vancomycin [Vancocin] 125 mg PO DAILY #7 cap 05/08/19 Eliquis 10 mg PO BID #41 tab 07/01/19 doxycycline hyclate 100 mg PO BID #14 cap 07/25/19 Allergies Allergy/AdvReac Type Severity Reaction Status Date / Time bee venom protein (honey bee) Allergy Unknown Unverified 07/25/19 11:57 Latex, Natural Rubber AdvReac Intermediate Unverified 07/25/19 11:57 adhesive tape AdvReac Mild Unverified 07/25/19 11:57 General CARMEN: 2 Review of Systems Constitutional Constitutional: Reports as per HPI, Denies chills, Denies fever(s), Denies headache(s), Denies lethargy and Denies poor appetite Eyes Eyes: Denies change in vision ENT Ears, Nose, Mouth, and Throat: Denies dizziness and Denies headache(s) Cardiovascular Cardiovascular: Reports as per HPI, Denies chest pain, Denies chest pain at rest, Denies chest pain with activity, Denies edema, Denies leg edema, Denies lightheadedness, Denies radiating jaw, neck or arm pain, Denies palpitations, Reports dyspnea and Reports dyspnea on exertion Respiratory Respiratory: Reports as per HPI, Denies chest congestion, Denies cough, Denies pain on inspiration, Denies pain with cough, Reports dyspnea, Reports dyspnea on exertion and Denies wheezing Gastrointestinal Gastrointestinal: Reports as per HPI, Denies abdominal pain, Denies diarrhea, Denies nausea and Denies vomiting Musculoskeletal Musculoskeletal: Reports as per HPI and Denies back pain Integumentary/Breasts Skin/Breast: Reports as per HPI and Denies rash Neurologic Neurologic: Reports as per HPI, Denies dizziness and Denies headache(s) Endocrine Endocrine: Denies palpitations Allergic/Immunologic Allergic/Immunologic: Denies wheezing PFSH Social History Smoking/Tobacco Use Status: Former Tobacco Use Alcohol Intake: never Drug use: Never Substance use type: does not use Caregiver/Support person: Yes Household members: children Number of Children: 2 Communication Needs: Hard of Hearing and Corrective Lenses Education Level: middle school Do you need help understanding health information?: Always current occupation: on disability What is your relationship status?: How often do you talk on the phone with friends or family?: once per week How often do you get together with friends or relatives?: three or more times per week Panel score (0-1 are the most socially isolated patients): 1 What type of physical activity do you participate in: none, sedentary lifest yle, wheelchair-bound and additional Details: needs a new wheelchair, cannot walk far, just a few steps Special pedro pablo needs: No Do you feel safe at home: Yes Do you feel safe in your relationship?: Yes Additional Social history: , with 2 children. She is not working and on disability. Has a history of tobacco, quit in 1992. Reports rare use of alcohol only. Lives with daughter. Uses a walker to ambulate. Hard to do rec ently, depending more on WC. In a lot of pain. Recent scans show progression of breast cancer. Exam Const General: cooperative, comfortable, no acute distress, well developed and ill appearing (appears to be at baseline from previous visits) chronically Nutritional Appearance: well nourished and obese Orientation: alert, awake and oriented x3 HENMT Head: normal to inspection Ears: hearing grossly normal bilaterally Mouth: mucous membranes dry Chest Chest: normal inspection of the chest, normal palpation of entire chest wall and no crepitus Resp Effort & Inspection: normal respiratory effort, able to speak in complete sentences and no respiratory distress Auscultation: clear to auscultation bilaterally, no rales, no rhonchi and no wheezes Cardio Rate: regular rate Rhythm: regular rhythm Heart Sounds: S1 normal and S2 normal GI Inspection: normal to inspection, no edema, non-distended and obesity Palpation: soft, no hepatosplenomegaly, not firm, no guarding, not rigid and nontender Auscultation: normal bowel sounds Back/Spine/Pelvis Back: no CVA tenderness Thoracic/Lumbar Spine: thoracic and lumbar spine normal to inspection Skin General skin exam: no rashes or lesions noted Trauma: no lacerations or abrasions Neuro General: patient alert, patient awake and patient oriented x3 Cognition: normal cognition Speech: speech normal Gait: gait abnormal (needed assistance, baseline) Extrem General: normal to inspection, capillary refill normal, no calf tenderness and pedal edema Psych Appearance: grossly normal and well kempt Mental Status: mental status grossly normal Speech and Movement: speech and movement normal
[2019-07-25 12:44] LABS: Abs Immature Grans 0.02 k/cumm (0.0-0.09); Absolute Basophil Count 0.01 k/cumm (0.0-0.2); Absolute Eosinophil Count 0.02 k/cumm (0.0-0.7); Absolute Monocyte Count 0.24 k/cumm (0.11-0.7); Absolute Neutrophil Count 4.27 k/cumm (1.2-6.7); Basophils % 0.2; Eosinophils % 0.4; HCT 31.7 % (36.0-46.0); HGB 10.1 g/dL (12.0-15.5); Immature Grans % 0.4 %; Mean Corp. HGB Concentration 31.9 g/dL (32.0-36.0); Mean Corpuscular Hemoglobin 30.1 pg (27.0-33.0); Mean Corpuscular Volume 94.3 fL (80-95); Monocytes % 4.3; Neutrophils % 76.7; Platelet Count 202 x1000/uL (130-400); RBC 3.36 m/cumm (4.00-5.20); RBC Distribution Width 16.9 % (11.7-14.6); White Blood Cell Count 5.56 k/cumm (4.4-10.8)
--- NOTE | 2019-07-25 12:58 | DI.RAD_ITS ---
EXAM: XR PORTABLE CHEST AP CLINICAL HISTORY: SOB TECHNIQUE: 2D digital imaging was performed. COMPARISON: CR XR CHEST 2V PA LATERAL from 02/18/2019 CR XR CHEST 2V PA LATERAL from 04/16/[address] CHEST PE CTA from 06/29/2019 FINDINGS: The exam is limited by the patient's body habitus. The left lung base is not well penetrated. Left basilar infiltrate and a small effusion cannot be excluded. The heart size is within normal limits. A port is again noted of over the right upper chest. Electronic device projects in the midline. S urgical clips are noted bilaterally in the anterior chest wall. IMPRESSION: Somewhat limited exam. Left basilar infiltrate cannot be excluded.
[2019-07-25 13:03] LABS: ALT 15 U/L (14-59); AST 24 U/L (15-37); Albumin 3.1 g/dL (3.4-5.0); Alkaline Phosphatase 117 U/L (46-116); Anion Gap 7.5 mmol/L (3-11); BUN 13 mg/dL (7-18); Bilirubin, Total 0.4 mg/dL (0.2-1.0); CO2 27.5 mmol/L (21.0-32.0); Calcium 8.9 mg/dL (8.5-10.1); Chloride 99 mmol/L (98-107); Estimated GFR 32.88 (mL/min/1.73m2); Glucose 325 mg/dL (74-106); Magnesium 1.9 mg/dL (1.8-2.4); NT-proBNP 293 pg/mL (<300); Potassium 4.3 mmol/L (3.5-5.1); Sodium 134 mmol/L (136-145)
[2019-07-25 13:04] LABS: Troponin I < 0.05 ng/Ml (<0.06)
--- NOTE | 2019-07-25 13:10 | DI.VRAD_ITS ---
PROCEDURE INFORMATION: Exam: XR Chest, 1 View Exam date and time: 07/25/2019 12:51 PM Age: 59 years old Clinical indication: Shortness of breath TECHNIQUE: Imaging protocol: XR of the chest Views: 1 view. COMPARISON: CR XR CHEST 2V PA LATERAL 04/16/2019 9:30 AM FINDINGS: Lungs: Opacity in the left base may represent atelectasis or pneumonia. Pleural space: Unremarkable. No pleural effusion. No pneumothorax. Heart/Mediastinum: Cardiomegaly Vasculature: MediPort terminates in the superior vena cava Bones/joints: Stable IMPRESSION: Opacity in the left base may represent atelectasis or pneumonia. Dictated and Authenticated by: Olga Mckenna MD. Ordering:ELVIA Cain MD
[2019-07-25] MEDS: Lactated Ringers 500 ML IV (13:42)
[2019-07-25] MEDS: Doxycycline Hyclate 100 MG CAP PO (13:42)
[2019-07-26 01:27] LABS: Bilirubin Negative (Negative); Blood Large (Negative); Clarity Clear (Clear); Glucose 100 mg/dL (Negative); Ketones Negative (Negative); Leukocyte Esterase Small (Negative); Nitrite Positive (Negative); Specific Gravity 1.025 (1.005-1.025); Urobilinogen 0.2 EU/dL (Up TO 0.2); pH 5.5 (5-8)
[2019-07-26 01:30] LABS: WBC 20-50 HPF (0-5)
[2019-07-26 01:31] LABS: Bacteria Few HPF (Negative); C & S Indicated? Yes; Casts Negative LPF (Negative); Crystals Negative HPF (Negative); Epithelial Cells Few HPF (Negative); Mucus Negative (Negative)
== END 2019-07-25 14:26 | disposition home or self-care (01) ==
PROVIDERS: Emergency Provider Physician Assistant; PCP Nurse Practitioner Family
DX: N17.8 Other acute kidney failure (principal); N18.9 Chronic kidney disease, unspecified; J18.9 Pneumonia, unspecified organism; E86.0 Dehydration; J44.9 Chronic obstructive pulmonary disease, unspecified; Z99.81 Dependence on supplemental oxygen; Z87.891 Personal history of nicotine dependence; E11.22 Type 2 diabetes mellitus with diabetic chronic kidney disease; Z79.4 Long term (current) use of insulin; Z86.711 Personal history of pulmonary embolism; Z79.01 Long term (current) use of anticoagulants
CPT/HCPCS: 80053; 71045; 83735; 83880; 84484; 85025; 85379

== ENCOUNTER 2019-07-25 17:04 | Inpatient (IN) | payer MEDICARE, MEDICAID, SELFPAY ==
[2019-07-25] VITALS (11 sets, daily range): BP systolic 107–129; BP diastolic 45–93; PULSE 93–100; RESP 15–25; TEMP 36.9–39; O2SAT 91–100
--- NOTE | 2019-07-25 17:52 | W.ED.GENAD ---
Discharge Plan Disposition Patient Disposition: [facility] INPATIENT Condition: Stable Discharge Details Chief Complaint: SOB Clinical Impression: Pneumonia, SOB (shortness of breath) Admit Date/Time: 07/25/19 17:53 Admit Provider: Robert Collado Attending Provider: Robert Collado Primary Care Provider: ANNA TORO ED Provider: Scarlett Jama Discharge Data Discharge Date/Time-TO BE ENTERED AT DEPARTURE: 07/25/19 18:43 Medical Decision Making This is a 59-year-old patient who has a complicated medical history most specifically history of COPD, diabetes, dyslipidemia, morbid obesity, pulmonary embolism, acute kidney injury, breast cancer, weakness, peripheral vascular disease, C. difficile colitis, electrolyte abnormalities. Patient was seen earlier today in the emergency room for complaints of shortness of breath and malaise. Patient reports that her symptoms began 1-1/2 days ago. Patient ultimately was diagnosed with pneumonia, acute kidney injury and dehydration. She received doxycycline p.o. as well as 500 cc of fluid IV. Patient had a chest x-ray which revealed FINDINGS: Lungs: Opacity in the left base may represent atelectasis or pneumonia. Pleural space: Unremarkable. No pleural effusion. No pneumothorax. Heart/Mediastinum: Cardiomegaly Vasculature: MediPort terminates in the superior vena cava Bones/joints: Stable IMPRESSION: Opacity in the left base may represent atelectasis or pneumonia. Dictated and Authenticated by: Olga Mckenna MD. Ordering:ELVIA Cain MD Patient was discharged home. She did report that she felt presyncopal at home, did not feel strong enough to be at home, feels as if she requires admission. Patient was not feeling well, called EMS. EMS reported temperature of 102.9 and transfer her back to the ER. Spoke with hospitalist regarding plan of admission to the hospital. Hospitalist preference is to repeat CBC and CMP after patient had previously received fluids. He will order fluid management, antibiotics IV and admission orders. Spoke with the patient's daughter who is also her security lead agrees with this plan of care of admission. She does add that the patient was Covid testing 2 weeks ago when admitted to the hospital. Will order blood cultures prior to any new antibiotic administration although patient is chronically on vancomycin due to C. difficile and did receive doxycycline this morning. Plan to admit HPI General Date/Time Provider Initiated Documentation: 07/25/19 17:07. HPI Narrative: This is a 59-year-old patient presenting to the emergency room for shortness of breath complaints of malaise per approximately 1-1/2 days. Patient is complaining of weakness. Patient was seen in the emergency room earlier today for her complaints. Patient reportedly was diagnosed with pneumonia, acute kidney injury as well as dehydration received IV fluids and a dose of doxycycline. Patient was discharged home. Patient lives at home with her family. Patient reports that she went home felt syncopal. She called EMS. Per EMS patient had a temperature of 102.9 noted. Vital signs otherwise normal. Patient's daughter concerned that she is not appropriate for home care at this time and family is requesting patient be admitted. Patient is requesting admission to the hospital as she does not feel well at home. Patient denies any active chest pain. Patient denies abdominal pain. Patient denies dysuria, urgency or frequency. Denies any changes in bowels. Patient denies any lower extremity swelling outside of her baseline. Denies numbness, tingling or weakness of extremities. Patient denies headache or dizziness but does report chills. No rashes. Related Data Home Medications Medication Instructions Recorded Confirmed Spiriva Respimat 1 puff INHALATION DAILY 04/03/17 07/25/19 budesonide-formoterol [Symbicort] 2 puff INHALATION BID 04/03/17 07/25/19 cyanocobalamin (vitamin B-12) 1,000 mcg PO DAILY 04/03/17 07/25/19 [Vitamin B-12] folic acid 1 mg PO DAILY 04/03/17 07/25/19 montelukast [Singulair] 10 mg PO DAILY 04/03/17 07/25/19 ondansetron HCl [Zofran] 8 mg PO TID PRN 04/03/17 07/25/19 pregabalin [Lyrica] 200 mg PO TID 04/03/17 07/25/19 Trulicity 1.5 mg SUBCUT QWEEK 05/06/18 07/25/19 hydrocortisone 25 mg PO DAILY 05/06/18 07/25/19 levothyroxine 150 mcg PO DAILY 05/06/18 07/25/19 benzonatate 200 mg PO TID PRN #15 cap 05/10/18 07/25/19 duloxetine [Cymbalta] 60 mg PO HS 02/02/19 07/25/19 loratadine 10 mg PO DAILY 02/02/19 07/25/19 Lactobacillus acidophilus 1,000 mmu cells PO DAILY #30 cap 02/04/19 07/25/19 letrozole 2.5 mg PO DAILY 02/04/19 07/25/19 hydrocodone-acetaminophen 2 tab PO Q4H PRN PRN #5 tab 03/28/19 07/25/19 Cholestyramine Light 4 g PO BID PRN 04/16/19 07/25/19 fentanyl 1 patch TD Q72H #2 each 04/20/19 07/25/19 vancomycin [Vancocin] 125 mg PO .Q2-3D #16 cap 05/08/19 07/25/19 Eliquis 5 mg PO BID 07/25/19 07/25/19 Humulin R U-500 (Conc) Kwikpen 50 unit SUBCUT QNOON 07/25/19 07/25/19 Humulin R U-500 (Conc) Kwikpen 50 unit SUBCUT QPM 07/25/19 07/25/19 Humulin R U-500 (Conc) Kwikpen 100 unit SUBCUT QAM 07/25/19 07/25/19 Lactobacillus acidophilus 1 cap DAILY 07/25/19 07/25/19 [Acidophilus] abemaciclib [Verzenio] 150 mg PO BID 07/25/19 07/25/19 carbamazepine [Tegretol XR] 200 mg PO BID 07/25/19 07/25/19 cranberry 450 mg PO DAILY 07/25/19 07/25/19 ferrous sulfate 325 mg PO DAILY 07/25/19 07/25/19 glucagon HCl [Glucagon (HCl) 1 mg PRN PRN 07/25/19 07/25/19 Emergency Kit] guaifenesin [Mucinex] 600 mg PO BID PRN 07/25/19 07/25/19 naloxone [Narcan] 1 spray INTRANASAL PRN PRN 07/25/19 07/25/19 omeprazole 40 mg PO DAILY 07/25/19 07/25/19 oxybutynin chloride 5 mg PO TID 07/25/19 07/25/19 Previous Rx's Medication Instructions Recorded benzonatate 200 mg PO TID PRN #15 cap 05/10/18 Lactobacillus acidophilus 1,000 mmu cells PO DAILY #30 cap 02/04/19 hydrocodone-acetaminophen 2 tab PO Q4H PRN PRN #5 tab 03/28/19 fentanyl 1 patch TD Q72H #2 each 04/20/19 vancomycin [Vancocin] 125 mg PO .Q2-3D #16 cap 05/08/19 Allergies Allergy/AdvReac Type Severity Reaction Status Date / Time bee venom protein (honey bee) Allergy Unknown Unverified 07/25/19 17:16 Latex, Natural Rubber AdvReac Intermediate Unverified 07/25/19 17:16 adhesive tape AdvReac Mild Unverified 07/25/19 17:16 General Stated Complaint: SOB CARMEN: 3 Review of Systems All systems reviewed & are unremarkable except as noted in HPI and below PFSH Medical History C. difficile diarrhea (Acute) Cancer related pain (Chronic) much improved with fentanyl patch Carpal tunnel syndrome (Acute) Chronic adrenal insufficiency (Acute) Chronic pain (Chronic) Chronic respiratory failure with hypoxia (Chronic) Chronic venous stasis dermatitis (Chronic) COPD (chronic obstructive pulmonary disease) (Chronic) On nocturnal oxygen - 2L prn Depression (Chronic) Diabetes mellitus (Chronic) Insulin dependent Diverticulosis (Acute) Dyslipidemia (Chronic) Goals of care, counseling/discussion (Acute) History of breast cancer (Chronic) metastatic, with lymphatic spread and bone mets Hyperlipidemia (Acute) Hypopituitarism (Chronic) Hypothyroidism (Chronic) Influenza B (Acute) Iron deficiency anemia (Acute) Metastatic breast cancer (Chronic) Obesity (Chronic) Obstructive sleep apnea (Chronic) per [facility] records Palliative care patient (Chronic) Pneumonia (Acute) POLST (Physician Orders for Life-Sustaining Treatment) (Acute) done 03/26/19; sent to [facility], [facility], original to her Restless leg syndrome (Acute) Spinal stenosis (Acute) Stage IV breast cancer in female (Chronic) Uncontrolled pain (Resolved) Surgical History H/O bilateral mastectomy (Acute) H/O colonoscopy with polypectomy (Acute) History of carpal tunnel release of both wrists (Acute) Port-A-Cath in place (Acute) Status post transsphenoidal pituitary resection (Acute) Family History Father , age 83 from complications of diabetes Prostate cancer Diabetes Mother , age 79 from complications of Crohn's disease and colitis Crohn's disease Colitis Daughter No problems noted. Daughter No problems noted. Brother No problems noted. Sister Diabetes Obesity Sister No problems noted. Sister No problems noted. Sister No problems noted. Social History Smoking/Tobacco Use Status: Former Tobacco Use Alcohol Intake: never Drug use: Never Substance use type: does not use Caregiver/Support person: Yes Household members: children Number of Children: 2 Communication Needs: Hard of Hearing and Corrective Lenses Education Level: middle school Do you need help understanding health information?: Always current occupation: on disability What is your relationship status?: How often do you talk on the phone with friends or family?: once per week How often do you get together with friends or relatives?: three or more times per week Panel score (0-1 are the most socially isolated patients): 1 What type of physical activity do you participate in: none, sedentary lifestyle, wheelchair-bound and additional Details: needs a new wheelchair, cannot walk far, just a few steps Special pedro pablo needs: No Do you feel safe at home: Yes Do you feel safe in your relationship?: Yes Additional Social history: , with 2 children. She is not working and on disability. Has a history of tobacco, quit in 1992. Reports rare use of alcohol only. Lives with daughter. Uses a walker to ambulate. Hard to do recently, depending more on WC. In a lot of pain. Recent scans show progression of breast cancer. Exam Narrative Exam Narrative: CONST: Morbidly obese. patient in no acute distress. Alert and oriented. HENMT: Head nomocephalic, normal to inspection. Atraumatic. Hearing grossly normal. External ear canal no erythema or swelling. TM normal bilaterally. Nose normal to inspection. No rhinnorhea. Normal facial exam. Oral mucosa mildly dry. Tounge normal. Dentition normal. Normal posterior oropharynx. Uvula midline. EYES: General normal appearance. Alignment normal. Eyelids normal. Conjunctiva normal. Sclera normal. PERRL. NECK: Normal visual inspection. FROM. No lymphadenopathy. Trachea midline. No Midline tenderness. CHEST: Normal insepection of the chest. RESP: Normal respiratory effort. Speaking full sentences. No cough. No wheezing. No retractions. Clear to auscaltation. Breath sound equal and present bilaterally. CARDIO: No JVD. Normal PMI. Regular Rate. Regular Rhythm. Normal peripheral pulses. GI: Normal inspection of abdomen. No distension. Soft. Nontender. Bowel sounds present in all 4 quadrants. No rebound. No gaurding. MUSCULOSKELETAL: Normal Gait. FROM of all extremities. Distal neurovascularly intact. Sensation intact distally. Patient is able to straight leg raise with significant effort. Patient is clearly not mobile in her bed. Chronic vascular changes noted bilaterally to the pretibial greco. SKIN: Normal. Dry. No rashes. NEURO: Alert and awake. Speech clear. PSYCH: Normal affect. Cooperative. Course Vital Signs Vital signs: Vital Signs Temperature 36.9 C 07/25/19 17:02 Pulse 94 H 07/25/19 17:02 Respiratory Rate 15 07/25/19 17:02 Blood Pressure 129/93 H 07/25/19 17:02 Pulse Oximetry 95 07/25/19 17:02 Temperature 36.9 C 07/25/19 17:02 Temperature Source Oral 07/25/19 17:02 Pulse 93 H 07/25/19 17:47 Pulse 94 H 07/25/19 17:47 Respiratory Rate 22 07/25/19 17:47 Respiratory Effort Non-Labored 07/25/19 17:14 Blood Pressure 127/88 07/25/19 17:47 Blood Pressure Mean 95 07/25/19 17:47 Blood Pressure Position Supine 07/25/19 17:02 Pulse Oximetry 100 07/25/19 17:47 Oxygen Delivery Method Nasal Cannula 07/25/19 17:02 Oxygen Flow Rate 3 07/25/19 17:02
[2019-07-25 17:55] LABS: Abs Immature Grans 0.01 k/cumm (0.0-0.09); Absolute Basophil Count 0.01 k/cumm (0.0-0.2); Absolute Eosinophil Count 0.02 k/cumm (0.0-0.7); Absolute Lymphocyte Count 1.14 k/cumm (1.2-3.4); Absolute Monocyte Count 0.32 k/cumm (0.11-0.7); Absolute Neutrophil Count 4.05 k/cumm (1.2-6.7); Basophils % 0.2; Eosinophils % 0.4; HCT 30.5 % (36.0-46.0); HGB 9.8 g/dL (12.0-15.5); Immature Grans % 0.2 %; Lymphocytes % 20.5; Mean Corp. HGB Concentration 32.1 g/dL (32.0-36.0); Mean Corpuscular Hemoglobin 30.2 pg (27.0-33.0); Mean Corpuscular Volume 94.1 fL (80-95); Mean Platelet Volume 9.4 fL (8.0-11.0); Monocytes % 5.8; Neutrophils % 72.9; Platelet Count 190 x1000/uL (130-400); RBC 3.24 m/cumm (4.00-5.20); RBC Distribution Width 16.8 % (11.7-14.6); White Blood Cell Count 5.55 k/cumm (4.4-10.8)
--- NOTE | 2019-07-25 18:07 | HPE_ITS ---
Date of service: 07/25/19 Time of Service: 18:07 Assessment and Plan Assessment and plan (1) Pneumonia: Start date: 07/25/19 Status: Acute Assessment and plan: This is a 59-year-old lady with multiple medical problems and end-stage metastatic breast cancer who reported to the ED this morning and then later today with shortness of breath and weakness. She has a left lower lobe pneumonia and is severely deconditioned with her morbid obesity and lack of mobility. She had a fever upon presentation later in the day and has had a fever while in the hospital. She has been cultured and is on Rocephin with doxycycline IV which will be continued. We will also continue her respiratory medicines and encourage mobility once she is improved. Prognosis is poor for her to become more active and mobile with her restrictions physically with obesity and metastatic disease with pain. Qualifiers: Laterality: left Lung location: lower lobe of lung Pneumonia type: due to unspecified organism Qualified Code(s): J18.9 - Pneumonia, unspecified organism (2) Acute dehydration: Start date: 07/25/19 Status: Acute Assessment and plan: IV hydration watching for fluid overload and then encourage oral hydration with patient has improved. (3) Stage IV breast cancer in female: Status: Chronic Assessment and plan: Continue pain control and patient on oral hormone therapy. Prognosis poor and she should consider hospice with maximized comfort measures at home to avoid repeated hospitalizations for anticipated recurrent acute processes associated with her immobility and progressive disease. (4) Adrenal insufficiency: Status: Chronic Assessment and plan: Patient will receive IV hydrocortisone 100 mg every 8 hours for stress steroids while she is in hospital. (5) Obstructive sleep apnea: Status: Chronic Assessment and plan: Patient not wearing CPAP at home and will continue oxygen supplementation while in the hospital. (6) Obesity: Status: Chronic Assessment and plan: This is a comorbid but significant associated medical problem with her end-stage disease. She appears to be less active at home over time this will increase risk of infections and decompensation. This is an unchangable problem. Qualifiers: Body mass index: BMI 50.0-59.9 Obesity classification: adult class 3 (BMI >= 40) Obesity type: due to excess calories Serious obesity comorbidity presence: with serious comorbidity Qualified Code(s): E66.01 - Morbid (severe) obesity due to excess calories; Z68.43 - Body mass index (BMI) 50.0-59.9, adult (7) C. difficile colitis: Status: Acute Assessment and plan: Patient has had a problem with recurrent and persistent C. difficile colitis and is on a weaning course of oral vancomycin which needs to be reviewed and restarted in the morning. History of Present Illness History of Present Illness Chief Complaint: Leg weakness with shortness of breath. Narrative: This is unfortunate 59-year-old lady with stage IV metastatic breast cancer status post bilateral mastectomy presents with general malaise and shortness of breath been evaluated in the ED earlier this morning and discharged home after IV hydration and being started on doxycycline. She is a DNR/DNI but not yet on hospice. She has multiple hospitalizations for complications of her morbid obesity, immobility and respiratory symptoms. She returned to the ED with continued malaise and weakness with shortness of breath and was admitted for treatment of her pneumonia with IV therapy. She also spiked a fever at home and had a recurrent fever once hospitalized. Blood cultures and urine cultures were obtained. She does have some adrenal insufficiency and this will be treated with stress steroids while she is in the hospital. She has not had any recent diarrhea but does have C. difficile colitis on a weaning course of oral vancomycin which needs to be verified in the morning. She also has sleep apnea with her morbid obesity but only wears oxygen at home. Patient is a very poor historian and her family was not available at my visit. I did review the ED visits. Review of Systems Narrative: 13 point review of systems otherwise unrevealing or stable and as allowed to review with the patient being confused. This was by review of chart. The patient is deconditioned and worsening with her end-stage disease process though she continues to report to the ED at hospital for treatments. Hopefully she will consider hospice in the near future. [facility] Medical History (Updated 07/26/19 @ 02:12 by Robert Collado) C. difficile diarrhea (Acute) Cancer related pain (Chronic) much improved with fentanyl patch Carpal tunnel syndrome (Acute) Chronic adrenal insufficiency (Acute) Chronic pain (Chronic) Chronic respiratory failure with hypoxia (Chronic) Chronic venous stasis dermatitis (Chronic) COPD (chronic obstructive pulmonary disease) (Chronic) On nocturnal oxygen - 2L prn Depression (Chronic) Diabetes mellitus (Chronic) Insulin dependent Diverticulosis (Acute) Dyslipidemia (Chronic) Goals of care, counseling/discussion (Acute) History of breast cancer (Chronic) metastatic, with lymphatic spread and bone mets Hyperlipidemia (Acute) Hypopituitarism (Chronic) Hypothyroidism (Chronic) Influenza B (Acute) Iron deficiency anemia (Acute) Metastatic breast cancer (Chronic) Obesity (Chronic) Obstructive sleep apnea (Chronic) per [facility] records Palliative care patient (Chronic) Pneumonia (Acute) POLST (Physician Orders for Life-Sustaining Treatment) (Acute) done 03/26/19; sent to [facility], [facility], [facility], original to her Restless leg syndrome (Acute) Spinal stenosis (Acute) Stage IV breast cancer in female (Chronic) Uncontrolled pain (Resolved) Surgical History H/O bilateral mastectomy (Acute) H/O colonoscopy with polypectomy (Acute) History of carpal tunnel release of both wrists (Acute) Port-A-Cath in place (Acute) Status post transsphenoidal pituitary resection (Acute) Family History Father , age 83 from complications of diabetes Prostate cancer Diabetes Mother , age 79 from complications of Crohn's disease and colitis Crohn's disease Colitis Daughter No problems noted. Daughter No problems noted. Brother No problems noted. Sister Diabetes Obesity Sister No problems noted. Sister No problems noted. Sister No problems noted. Social History Smoking/Tobacco Use Status: Former Tobacco Use Alcohol Intake: never Drug use: Never Substance use type: does not use Caregiver/Support person: Yes Household members: children Number of Children: 2 Communication Needs: Hard of Hearing and Corrective Lenses Education Level: middle school Do you need help understanding health information?: Always current occupation: on disability What is your relationship status?: How often do you talk on the phone with friends or family?: once per week How often do you get together with friends or relatives?: three or more times per week Panel score (0-1 are the most socially isolated patients): 1 What type of physical activity do you participate in: none, sedentary lifestyle, wheelchair-bound and additional Details: needs a new wheelchair, cannot walk far, just a few steps Special pedro pablo needs: No Do you feel safe at home: Yes Do you feel safe in your relationship?: Yes Additional Social history: , with 2 children. She is not working and on disability. Has a history of tobacco, quit in 1992. Reports rare use of alcohol only. Lives with daughter. Uses a walker to ambulate. Hard to do recently, depending more on WC. In a lot of pain. Recent scans show progression of breast cancer. Meds Home Medications and Allergies Home Medications Medication Instructions Recorded Confirmed Type Spiriva Respimat 1 puff INHALATION DAILY 04/03/17 07/25/19 History budesonide-formoterol [Symbicort] 2 puff INHALATION BID 04/03/17 07/25/19 History cyanocobalamin (vitamin B-12) 1,000 mcg PO DAILY 04/03/17 07/25/19 History [Vitamin B-12] folic acid 1 mg PO DAILY 04/03/17 07/25/19 History montelukast [Singulair] 10 mg PO DAILY 04/03/17 07/25/19 History ondansetron HCl [Zofran] 8 mg PO TID PRN 04/03/17 07/25/19 History pregabalin [Lyrica] 200 mg PO TID 04/03/17 07/25/19 History Trulicity 1.5 mg SUBCUT QWEEK 05/06/18 07/25/19 History hydrocortisone 25 mg PO DAILY 05/06/18 07/25/19 History levothyroxine 150 mcg PO DAILY 05/06/18 07/25/19 History benzonatate 200 mg PO TID PRN #15 cap 05/10/18 07/25/19 Rx duloxetine [Cymbalta] 60 mg PO HS 02/02/19 07/25/19 History loratadine 10 mg PO DAILY 02/02/19 07/25/19 History Lactobacillus acidophilus 1,000 mmu cells PO DAILY #30 cap 02/04/19 07/25/19 Rx letrozole 2.5 mg PO DAILY 02/04/19 07/25/19 History hydrocodone-acetaminophen 2 tab PO Q4H PRN PRN #5 tab 03/28/19 07/25/19 Rx Cholestyramine Light 4 g PO BID PRN 04/16/19 07/25/19 History fentanyl 1 patch TD Q72H #2 each 04/20/19 07/25/19 Rx vancomycin [Vancocin] 125 mg PO .Q2-3D #16 cap 05/08/19 07/25/19 Rx Eliquis 5 mg PO BID 07/25/19 07/25/19 History Humulin R U-500 (Conc) Kwikpen 50 unit SUBCUT QNOON 07/25/19 07/25/19 History Humulin R U-500 (Conc) Kwikpen 50 unit SUBCUT QPM 07/25/19 07/25/19 History Humulin R U-500 (Conc) Kwikpen 100 unit SUBCUT QAM 07/25/19 07/25/19 History Lactobacillus acidophilus 1 cap DAILY 07/25/19 07/25/19 History [Acidophilus] abemaciclib [Verzenio] 150 mg PO BID 07/25/19 07/25/19 History carbamazepine [Tegretol XR] 200 mg PO BID 07/25/19 07/25/19 History cranberry 450 mg PO DAILY 07/25/19 07/25/19 History ferrous sulfate 325 mg PO DAILY 07/25/19 07/25/19 History glucagon HCl [Glucagon (HCl) 1 mg PRN PRN 07/25/19 07/25/19 History Emergency Kit] guaifenesin [Mucinex] 600 mg PO BID PRN 07/25/19 07/25/19 History naloxone [Narcan] 1 spray INTRANASAL PRN PRN 07/25/19 07/25/19 History omeprazole 40 mg PO DAILY 07/25/19 07/25/19 History oxybutynin chloride 5 mg PO TID 07/25/19 07/25/19 History Allergies Allergy/AdvReac Type Severity Reaction Status Date / Time bee venom protein (honey bee) Allergy Unknown Unverified 07/25/19 17:16 Latex, Natural Rubber AdvReac Intermediate Unverified 07/25/19 17:16 adhesive tape AdvReac Mild Unverified 07/25/19 17:16 Exam Narrative Exam Narrative: General: Patient is morbidly obese with flattened affect and poor eye contact as well as slow speech with some slurring. She is not oriented to time and does know that she is in the hospital and knows herself. She appears confused. She does not appear to be in acute distress. She is lethargic. HEENT: Normocephalic with thinning hair, face with pain and swelling and coarsened features, eyes with pupils equal and reactive light symmetrically, extraocular movement intact and sclera anicteric. Oropharynx with dry oral mucosa and patient being edentulous. Neck: Supple without JVD. Lungs: Limited exam with patient not able to sit up reveals fair aeration with poor inspiratory effort, no focalizing rales or rhonchi and no expiratory wheeze or increased expiratory phase. Heart: Distant heart sounds with regular rhythm and rate and by systolic murmur over left sternal border which is variable. No gallops. No rubs. Chest: Bilateral mastectomy with clean scars. Abdomen: Morbidly obese contour, soft with no appreciable hepatosplenomegaly but difficult exam because of obesity. Bowel sounds hypoactive but present in all quadrants. Genitalia/rectal: Exam deferred. Extremities: Chronic, nonpitting edema both lower extremities with chronic venous stasis changes of both legs with circumferential hyperpigmentation which is confluent, shiny atrophic skin with atrophy over these hyperpigmented areas. Peripheral pulses are not palpated but capillary refill is fair. Skin: Pale, warm and dry with skin changes over lower extremities as described. Neuro: Got agitated 12 appear to be grossly intact, no focalizing motor or sensory deficits and the patient is lethargic and moving slowly with difficulty moving secondary to obesity. He has very gentle leg weightbearing with her acute illness. Psych: Patient appears to have short-term memory loss, unable to give history with lethargy but manifesting no delusions or abnormal thought processes. Results Imaging Imaging Studies: PROCEDURE INFORMATION: Exam: XR Chest, 1 View Exam date and time: 07/25/2019 12:51 PM Age: 59 years old Clinical indication: Shortness of breath TECHNIQUE: Imaging protocol: XR of the chest Views: 1 view. COMPARISON: CR XR CHEST 2V PA LATERAL 04/16/2019 9:30 AM FINDINGS: Lungs: Opacity in the left base may represent atelectasis or pneumonia. Pleural space: Unremarkable. No pleural effusion. No pneumothorax. Heart/Mediastinum: Cardiomegaly Vasculature: MediPort terminates in the superior vena cava Bones/joints: Stable IMPRESSION: Opacity in the left base may represent atelectasis or pneumonia. Dictated and Authenticated by: Olga Mckenna MD. Labs Result diagrams: 07/25/19 17:11 07/25/19 17:11 Labs: Laboratory Results - last 24 hr 07/25/19 17:11 WBC 5.55 RBC 3.24 L Hgb 9.8 L Hct 30.5 L MCV 94.1 MCH 30.2 MCHC 32.1 RDW 16.8 H Plt Count 190 MPV 9.4 Immature Gran % 0.2 Neutrophils % 72.9 Lymphocytes % 20.5 Monocytes % 5.8 Eosinophils % 0.4 Basophils % 0.2 Absolute Neutrophils 4.05 Absolute Lymphocytes 1.14 L Absolute Monocytes 0.32 Absolute Eosinophils 0.02 Absolute Basophils 0.01 Last Vital Signs Temp 36.9 C 07/25/19 17:02 Pulse 93 H 07/25/19 17:47 Resp 22 07/25/19 17:47 BP 127/88 07/25/19 17:47 Pulse Ox 100 07/25/19 17:47 COVID-19 Screening In the past 14 days, have you traveled outside of [place] or [place]?: NO Had IN PERSON contact w/suspected or confirmed C-19 person: No
[2019-07-25 18:11] LABS: ALT 15 U/L (14-59); AST 25 U/L (15-37); Albumin 3.1 g/dL (3.4-5.0); Alkaline Phosphatase 112 U/L (46-116); Anion Gap 6.7 mmol/L (3-11); BUN 13 mg/dL (7-18); Bilirubin, Total 0.5 mg/dL (0.2-1.0); CO2 28.3 mmol/L (21.0-32.0); CREATININE 1.58 mg/dL (0.55-1.02); Calcium 8.6 mg/dL (8.5-10.1); Chloride 98 mmol/L (98-107); Estimated GFR 33.36 (mL/min/1.73m2); Glucose 225 mg/dL (74-106); Potassium 3.9 mmol/L (3.5-5.1); Sodium 133 mmol/L (136-145); Total Protein 8.1 g/dL (6.4-8.2)
[2019-07-25] MEDS: cefTRIAXone 1 GM/50 ML BAG IVPB (20:22)
[2019-07-25] MEDS: Normal Saline 1,000 ML 125 ML IV (20:22)
[2019-07-25] MEDS: Acetaminophen 325 MG TAB PO (20:36)
[2019-07-25] MEDS: DOXYCYCLINE 100 MG in Normal Saline 100 ML IVPB (21:04)
[2019-07-25 21:08] LABS: TSH 0.06 uIU/mL (0.36-3.74)
[2019-07-25] MEDS: Insulin Aspart 300 UNITS/3 ML PEN SC (21:58)
[2019-07-25] MEDS: DULoxetine 30 MG CAP 60 MG PO (23:09)
[2019-07-26] MEDS: Hydrocortisone SOD SUC. 100 MG VIAL IVP ×2 (00:32→08:14)
[2019-07-26] MEDS: Normal Saline Flush 10 ML SYR IVP ×2 (00:32→08:18)
[2019-07-26] MEDS: HYDROcodone 5/Acetaminophen 325 TAB PO ×2 (02:48→14:23)
[2019-07-26] MEDS: Levothyroxine 150 MCG TAB PO (05:56)
[2019-07-26] MEDS: Normal Saline 1,000 ML 125 ML IV (05:57)
[2019-07-26 07:41] LABS: HCT 29.2 % (36.0-46.0); HGB 9.3 g/dL (12.0-15.5); Mean Corp. HGB Concentration 31.8 g/dL (32.0-36.0); Mean Corpuscular Hemoglobin 29.8 pg (27.0-33.0); Mean Corpuscular Volume 93.6 fL (80-95); Mean Platelet Volume 9.3 fL (8.0-11.0); Platelet Count 181 x1000/uL (130-400); RBC 3.12 m/cumm (4.00-5.20); RBC Distribution Width 16.3 % (11.7-14.6); White Blood Cell Count 4.25 k/cumm (4.4-10.8)
[2019-07-26 07:55] LABS: ALT 14 U/L (14-59); AST 26 U/L (15-37); Albumin 2.7 g/dL (3.4-5.0); Alkaline Phosphatase 99 U/L (46-116); Anion Gap 10.6 mmol/L (3-11); BUN 14 mg/dL (7-18); Bilirubin, Total 0.6 mg/dL (0.2-1.0); CO2 23.4 mmol/L (21.0-32.0); CREATININE 1.32 mg/dL (0.55-1.02); Calcium 8.3 mg/dL (8.5-10.1); Chloride 99 mmol/L (98-107); Estimated GFR 41.05 (mL/min/1.73m2); Glucose 344 mg/dL (74-106); Potassium 4.5 mmol/L (3.5-5.1); Sodium 133 mmol/L (136-145); Total Protein 7.5 g/dL (6.4-8.2)
[2019-07-26 08:07] VITALS: BP 123/75; PULSE 97; RESP 20; TEMP 35.7; O2SAT 93
[2019-07-26] MEDS: DOXYCYCLINE 100 MG in Normal Saline 100 ML IVPB ×2 (08:14→19:49)
[2019-07-26] MEDS: Omeprazole 20 MG CAPCR 40 MG PO (08:14)
[2019-07-26] MEDS: Insulin Aspart 300 UNITS/3 ML PEN SC ×4 (08:26→21:54)
[2019-07-26] MEDS: Budesonide/Formoterol 160/4.5 6 GM 60 PUFF INH IH ×2 (09:33→19:47)
[2019-07-26] MEDS: Tiotropium Bromide-Respimat 10 PUFF INH IH (09:34)
[2019-07-26 09:36] VITALS: O2SAT 93
[2019-07-26 10:15] LABS: FREE T4 1.07 ng/dL (0.76-1.46)
[2019-07-26] MEDS: Montelukast 10 MG TAB PO (10:37)
[2019-07-26] MEDS: Oxybutynin 5 MG TAB PO ×3 (10:37→19:46)
[2019-07-26] MEDS: Loratidine 10 MG TAB PO (10:37)
[2019-07-26] MEDS: carBAMazepine 200 MG TAB PO ×2 (10:37→19:47)
[2019-07-26] MEDS: Pregabalin 100 MG CAP 200 MG PO ×3 (10:37→19:46)
[2019-07-26] MEDS: Apixaban 5 MG TAB PO ×2 (10:37→19:47)
[2019-07-26] MEDS: Cyanocobalamin 500 MCG TAB 1000 MCG PO (10:37)
[2019-07-26] MEDS: Ferrous Sulfate 325 MG TAB PO (10:37)
[2019-07-26] MEDS: Folic Acid 1 MG TAB PO (10:38)
[2019-07-26] MEDS: fentaNYL 50 MCG PATCH TD (10:38)
[2019-07-26] MEDS: Cholestyramine/Aspartame PKT 1 EACH PO ×2 (11:56→19:45)
[2019-07-26] MEDS: Vancomycin 125 MG CAP PO ×2 (11:57→17:32)
[2019-07-26] MEDS: Hydrocortisone SOD SUC. 100 MG VIAL 50 MG IVP ×2 (14:08→19:50)
[2019-07-26 14:18] VITALS: BP 92/51; PULSE 83; RESP 18; TEMP 36.2; O2SAT 93
--- NOTE | 2019-07-26 15:01 | PGE_ITS ---
Date of Service Date of service: 07/26/19 Time of Service: 15:01 Assessment and Plan Assessment and plan (1) Pneumonia: Status: Acute Assessment and plan: Present on admission. Given presence of adrenal insufficiency and cough productive of green sputum, I do think the patient has it. While pneumonia can be considered health care acquired (discharged from our service on 06/30), the patient seems to be clinically improving on chronic IV doxycycline and ceftriaxone. Will obtain sputum sample. COVID-19 SUBCONTRACT MANAGER PCR pending. Continue stress dose steroids. Wean O2 as tolerated. Will schedule combivent. Continue prn albuterol. Given h/o recurrent CDiff infections, start prophylactic PO vancomycin and probiotics. Hold oral chemo. Qualifiers: Pneumonia type: due to unspecified organism Laterality: left Lung location: lower lobe of lung Qualified Code(s): J18.9 - Pneumonia, unspecified organism (2) Acute dehydration: Status: Acute Assessment and plan: Clinically resolved. D/c IVF. (3) Stage IV breast cancer in female: Status: Chronic Assessment and plan: Continue pain control with fentanyl patch and prn norco. Consult palliative care. Hold oral chemo while getting treatment for acute infection. (4) Adrenal insufficiency: Status: Chronic Assessment and plan: Taper stress dose steroids. (5) Obstructive sleep apnea: Status: Chronic Assessment and plan: Continue O2 HS. (6) History of pulmonary embolism: Status: Acute Assessment and plan: Continue eliquis as recommended by hematology, despite her weight. (7) Discharge planning issues: Status: Acute Assessment and plan: DNR/DNI Consult palliative care. Subjective Subjective Interval history since last seen: Candace states she is feeling better. She was able to produce green sputum today. Denies diarrhea. Breathing is better. Denies dizziness, chest pain, nausea. Still does not feel overall. Exam Narrative Exam Narrative: General: Very pleasant obese female, A&Ox3, appears more tired than I am used to seeing HEENT: EOMI, MMM Heart: RRR, no m/r/g Lungs: diminished breath sounds B, no adventitious sounds Abdomen: soft, obese, nontender Extremities: +1 BLE edema, chronic venous stasis dermatitis Objective Objective Clinical Data: Abnormal lab results 07/25/19 07/25/19 07/25/19 Range/Units 17:11 17:11 17:11 WBC (4.4-10.8) k/cumm RBC 3.24 L (4.00-5.20) m/cumm Hgb 9.8 L (12.0-15.5) g/dL Hct 30.5 L (36.0-46.0) % MCHC (32.0-36.0) g/dL RDW 16.8 H (11.7-14.6) % Absolute Lymphocytes 1.14 L (1.2-3.4) k/cumm Sodium 133 L (136-145) mmol/L Creatinine 1.58 H (0.55-1.02) mg/dL Glucose 225 H D (74-106) mg/dL Calcium (8.5-10.1) mg/dL Albumin 3.1 L (3.4-5.0) g/dL TSH 0.06 L (0.36-3.74) uIU/mL 07/26/19 07/26/19 Range/Units 06:30 06:30 WBC 4.25 L (4.4-10.8) k/cumm RBC 3.12 L (4.00-5.20) m/cumm Hgb 9.3 L (12.0-15.5) g/dL Hct 29.2 L (36.0-46.0) % MCHC 31.8 L (32.0-36.0) g/dL RDW 16.3 H (11.7-14.6) % Absolute Lymphocytes (1.2-3.4) k/cumm Sodium 133 L (136-145) mmol/L Creatinine 1.32 H (0.55-1.02) mg/dL Glucose 344 H D (74-106) mg/dL Calcium 8.3 L (8.5-10.1) mg/dL Albumin 2.7 L (3.4-5.0) g/dL TSH (0.36-3.74) uIU/mL Vital Signs Temperature 36.2 C L 07/26/19 14:18 Temperature Source Tympanic 07/26/19 14:18 Pulse 83 07/26/19 14:18 Pulse Rhythm Regular 07/26/19 05:52 Pulse 94 H 07/25/19 17:47 Respiratory Rate 18 07/26/19 14:18 Respiratory Effort 07/26/19 05:52 Respiratory Depth Normal 07/26/19 05:52 Respiratory Pattern Normal 07/26/19 05:52 Blood Pressure 92/51 L 07/26/19 14:18 Blood Pressure Mean 95 07/25/19 17:47 Blood Pressure Position Supine 07/25/19 17:02 Pulse Oximetry 93 L 07/26/19 14:18 Oxygen Delivery Method Hi Flow Nasal Cannula 07/26/19 14:18 Oxygen Flow Rate 2 07/26/19 14:18 Pain Level 8 07/26/19 14:23 Intake & Output 07/25/19 07/26/19 07/26/19 23:59 11:59 23:59 Intake Total 350 / 350 1100 / 1100 Output Total 300 / 1200 900 / 1200 Balance 350 / 350 800 / -100 -900 / -100 Weight 154.2 kg Intake: IV 100 / 100 1100 / 1100 Oral 250 / 250 Output: Urine 300 / 1200 900 / 1200 Other: Urine Color Yellow Light Giselle Light Giselle Urine Appearance Clear Clear Urine Odor Strong Comment Moderate incontinent Diaper. Stool Size Moderate Smear Stool Characteristics Soft Brown Voiding Methods Diaper Diaper Incontinent Laboratory Results WBC 4.25 k/cumm (4.4-10.8) L 07/26/19 06:30 RBC 3.12 m/cumm (4.00-5.20) L 07/26/19 06:30 Hgb 9.3 g/dL (12.0-15.5) L 07/26/19 06:30 Hct 29.2 % (36.0-46.0) L 07/26/19 06:30 MCV 93.6 fL (80-95) 07/26/19 06:30 MCH 29.8 pg (27.0-33.0) 07/26/19 06:30 MCHC 31.8 g/dL (32.0-36.0) L 07/26/19 06:30 RDW 16.3 % (11.7-14.6) H 07/26/19 06:30 Plt Count 181 x1000/uL (130-400) 07/26/19 06:30 MPV 9.3 fL (8.0-11.0) 07/26/19 06:30 Immature Gran % 0.2 % 07/25/19 17:11 Neutrophils % 72.9 07/25/19 17:11 Lymphocytes % 20.5 07/25/19 17:11 Monocytes % 5.8 07/25/19 17:11 Eosinophils % 0.4 07/25/19 17:11 Basophils % 0.2 07/25/19 17:11 Absolute Neutrophils 4.05 k/cumm (1.2-6.7) 07/25/19 17:11 Absolute Lymphocytes 1.14 k/cumm (1.2-3.4) L 07/25/19 17:11 Absolute Monocytes 0.32 k/cumm (0.11-0.7) 07/25/19 17:11 Absolute Eosinophils 0.02 k/cumm (0.0-0.7) 07/25/19 17:11 Absolute Basophils 0.01 k/cumm (0.0-0.2) 07/25/19 17:11 Sodium 133 mmol/L (136-145) L 07/26/19 06:30 Potassium 4.5 mmol/L (3.5-5.1) 07/26/19 06:30 Chloride 99 mmol/L (98-107) 07/26/19 06:30 Carbon Dioxide 23.4 mmol/L (21.0-32.0) 07/26/19 06:30 Anion Gap 10.6 mmol/L (3-11) 07/26/19 06:30 BUN 14 mg/dL (7-18) 07/26/19 06:30 Creatinine 1.32 mg/dL (0.55-1.02) H 07/26/19 06:30 Estimated GFR/1.73 m2 41.05 (mL/min/1.73m2) 07/26/19 06:30 Glucose 344 mg/dL (74-106) H D 07/26/19 06:30 Calcium 8.3 mg/dL (8.5-10.1) L 07/26/19 06:30 Magnesium 2.0 mg/dL (1.8-2.4) 07/25/19 17:11 Total Bilirubin 0.6 mg/dL (0.2-1.0) 07/26/19 06:30 AST 26 U/L (15-37) 07/26/19 06:30 ALT 14 U/L (14-59) 07/26/19 06:30 Alkaline Phosphatase 99 U/L (46-116) 07/26/19 06:30 Total Protein 7.5 g/dL (6.4-8.2) 07/26/19 06:30 Albumin 2.7 g/dL (3.4-5.0) L 07/26/19 06:30 TSH 0.06 uIU/mL (0.36-3.74) L 07/25/19 17:11 Free T4 1.07 ng/dL (0.76-1.46) 07/26/19 06:30 Urine Color Cancelled 07/26/19 01:18 Urine Clarity Cancelled 07/26/19 01:18 Urine pH Cancelled 07/26/19 01:18 Ur Specific [place] Cancelled 07/26/19 01:18 Urine Protein Cancelled 07/26/19 01:18 Urine Ketones Cancelled 07/26/19 01:18 Urine Blood Cancelled 07/26/19 01:18 Urine Nitrite Cancelled 07/26/19 01:18 Urine Bilirubin Cancelled 07/26/19 01:18 Urine Urobilinogen Cancelled 07/26/19 01:18 Ur Leukocyte Esterase Cancelled 07/26/19 01:18 Urine Glucose Cancelled 07/26/19 01:18
--- NOTE | 2019-07-26 16:28 | INITIAL_ITS ---
- If Service Date Differs Date of service: 07/26/19 Time of Service: 16:28 Care Management Initial Assess REASON FOR HOSPITALIZATION:: Pneumonia, dehydration PAST MEDICAL HISTORY/PAST SURGICAL HISTORY:: Medical History (Updated 07/26/19 @ 02:12 by Robert Collado). C. difficile diarrhea (Acute). Cancer related pain (Chronic). much improved with fentanyl patch. Carpal tunnel syndrome (Acute). Chronic adrenal insufficiency (Acute). Chronic pain (Chronic). Chronic respiratory failure with hypoxia (Chronic). Chronic venous stasis dermatitis (Chronic). COPD (chronic obstructive pulmonary disease) (Chronic). On nocturnal oxygen - 2L prn. Depression (Chronic). Diabetes mellitus (Chronic). Insulin dependent. Diverticulosis (Acute). Dyslipidemia (Chronic). Goals of care, counseling/discussion (Acute). History of breast cancer (Chronic). metastatic, with lymphatic spread and bone mets. Hyperlipidemia (Acute). Hypopituitarism (Chronic). Hypothyroidism (Chronic). Influenza B (Acute). Iron deficiency anemia (Acute). Metastatic breast cancer (Chronic). Obesity (Chronic). Obstructive sleep apnea (Chronic). per [facility] records. Palliative care patient (Chronic). Pneumonia (Acute). POLST (Physician Orders for Life-Sustaining Treatment) (Acute). done 03/26/19; sent to [facility], [facility], [facility] to her. Restless leg syndrome (Acute). Spinal stenosis (Acute). Stage IV breast cancer in female (Chronic). Uncontrolled pain (Resolved). Surgical History . H/O bilateral mastectomy (Acute). H/O colonoscopy with polypectomy (Acute). History of carpal tunnel release of both wrists (Acute). Port-A-Cath in place (Acute). Status post transsphenoidal pituitary resection (Acute) PREVIOUS FUNCTIONAL STATUS/SOCIAL/FAMILY SUPPORTS:: Candace lives at home with her daughter in [facility]. She has two daughters who reside locally. She is currently disabled and receives [employer] highest needs; her daughter Kiki is her primary caregiver. Candace utilizes a walker for ambulation, and a wheeled walker for distance. She is dependent on her daughter for transportation to and from appointments. CURRENT FUNCTIONAL STATUS:: Candace is on precautions for Covid 19 rule out, so CM did not attempt to visit with her today. CM inquired about contacting her daughter, Kiki, but the RN had already given her an update and did not feel it necessary at this time. Per report, Candace is being treated for pneumonia. Palliative care was consulted. CM will continue to follow. ADVANCE DIRECTIVES:: On file, Kiki, daughter, listed as agent. Has patient been provided with information about the portal?: Yes Did the patient sign up for the portal?: No CODE STATUS:: DNR/DNI INSURANCE COVERAGE / FINANCIAL ISSUES:: [employer], [employer] highest needs CURRENT HOME/COMMUNITY SERVICES/EQUIPMENT:: FWW, rollater, wheelchair, VNA PT. Home care provided by her daughterKiki. PRIMARY CARE PHYSICIAN:: Jan Coleman POTENTIAL DISCHARGE NEEDS:: Follow up with PCP, Oncologist and discharge plan of care PATIENT/FAMILY EDUCATION NEEDS:: Review discharge instructions regarding activity levels and medications, discussion of goals of care. ANTICIPATED BARRIERS TO DISCHARGE:: None identified at this time. TRANSPORTATION:: Private vehicle by her daughterKiki. PLAN:: Candace will likely be discharged home with a resumption of home health services. She will follow up with her oncologist, PCP and discharghe plan. CM will continue to support patient, family and discharge planning concerns.
[2019-07-26] MEDS: Acetaminophen 325 MG TAB PO (16:45)
[2019-07-26] MEDS: cefTRIAXone 1 GM/50 ML BAG IVPB (17:32)
[2019-07-26 19:20] VITALS: BP 97/63; PULSE 75; RESP 16; TEMP 37.1; O2SAT 94
[2019-07-26] MEDS: DULoxetine 30 MG CAP 60 MG PO (21:47)
[2019-07-26 22:02] VITALS: BP 98/64; PULSE 73; RESP 17; TEMP 37; O2SAT 94
[2019-07-27] MEDS: Vancomycin 125 MG CAP PO ×4 (01:00→18:18)
[2019-07-27] MEDS: Hydrocortisone SOD SUC. 100 MG VIAL 50 MG IVP ×3 (01:00→13:53)
[2019-07-27] MEDS: Normal Saline Flush 10 ML SYR IVP ×2 (01:01→08:05)
[2019-07-27 03:15] VITALS: BP 105/61; PULSE 72; RESP 17; TEMP 36.8; O2SAT 94
[2019-07-27] MEDS: Levothyroxine 150 MCG TAB PO (06:54)
[2019-07-27 07:15] LABS: Absolute Eosinophil Count 0.01 k/cumm (0.0-0.7); Absolute Lymphocyte Count 0.81 k/cumm (1.2-3.4); Absolute Monocyte Count 0.17 k/cumm (0.11-0.7); Absolute Neutrophil Count 3.24 k/cumm (1.2-6.7); Eosinophils % 0.2; HCT 27.9 % (36.0-46.0); HGB 8.9 g/dL (12.0-15.5); Lymphocytes % 19.1; Mean Corp. HGB Concentration 31.9 g/dL (32.0-36.0); Mean Corpuscular Hemoglobin 29.8 pg (27.0-33.0); Mean Corpuscular Volume 93.3 fL (80-95); Mean Platelet Volume 9.5 fL (8.0-11.0); Neutrophils % 76.7; Platelet Count 224 x1000/uL (130-400); RBC 2.99 m/cumm (4.00-5.20); RBC Distribution Width 15.9 % (11.7-14.6); White Blood Cell Count 4.23 k/cumm (4.4-10.8)
[2019-07-27 07:22] LABS: Anion Gap 6.2 mmol/L (3-11); BUN 17 mg/dL (7-18); CO2 27.8 mmol/L (21.0-32.0); CREATININE 1.17 mg/dL (0.55-1.02); Calcium 8.6 mg/dL (8.5-10.1); Chloride 100 mmol/L (98-107); Estimated GFR 47.18 (mL/min/1.73m2); Glucose 290 mg/dL (74-106); Magnesium 1.9 mg/dL (1.8-2.4); Potassium 4.3 mmol/L (3.5-5.1); Sodium 134 mmol/L (136-145)
[2019-07-27 07:39] LABS: Anisocytosis 1+; Diff Comment RBC Morph Reviewed; Polychromasia Present
[2019-07-27 08:03] VITALS: BP 121/65; PULSE 76; RESP 20; TEMP 36.3; O2SAT 94
[2019-07-27] MEDS: Ferrous Sulfate 325 MG TAB PO (08:04)
[2019-07-27] MEDS: Apixaban 5 MG TAB PO ×2 (08:04→20:06)
[2019-07-27] MEDS: Oxybutynin 5 MG TAB PO ×3 (08:04→20:06)
[2019-07-27] MEDS: Pregabalin 100 MG CAP 200 MG PO ×3 (08:05→20:06)
[2019-07-27] MEDS: Folic Acid 1 MG TAB PO (08:05)
[2019-07-27] MEDS: DOXYCYCLINE 100 MG in Normal Saline 100 ML IVPB ×2 (08:05→20:07)
[2019-07-27] MEDS: carBAMazepine 200 MG TAB PO ×2 (08:05→20:06)
[2019-07-27] MEDS: Cyanocobalamin 500 MCG TAB 1000 MCG PO (08:05)
[2019-07-27] MEDS: Montelukast 10 MG TAB PO (08:06)
[2019-07-27] MEDS: Omeprazole 20 MG CAPCR 40 MG PO (08:06)
[2019-07-27] MEDS: Loratidine 10 MG TAB PO (08:06)
[2019-07-27] MEDS: Insulin Aspart 300 UNITS/3 ML PEN SC ×4 (08:08→23:05)
[2019-07-27] MEDS: Ipratropium/Albuterol 4 GM 120 PUFF INH IH ×4 (08:57→20:08)
[2019-07-27] MEDS: Budesonide/Formoterol 160/4.5 6 GM 60 PUFF INH IH ×2 (08:58→20:05)
[2019-07-27] MEDS: HYDROcodone 5/Acetaminophen 325 TAB PO ×2 (09:53→13:53)
[2019-07-27] MEDS: Cholestyramine/Aspartame PKT 1 EACH PO ×2 (09:53→18:46)
--- NOTE | 2019-07-27 10:37 | CMPROGNOTE_ITS ---
- If Service Date Differs Date of service: 07/27/19 Time of Service: 10:37 Care Management Progress Note S/O: Candace was sitting up in bed when CM met with her. She was pleasant and readily engaged in conversation with CM. She shared that she has been doing well at home until Friday when she became very weak. She denied having fever or cough at home. She is still receiving chemotherapy with an oral agent and is possibly going to start a new IV treatment. Candace visits with her Oncologist on line on her tablet. She is currently receiving nursing and will likely need a resumption of services. A: Candace is a 59 year old woman admitted to [facility] on 07/25/19 with pneumonia P: Candace will likely be discharged home with a resumption of home health services. She will follow up with her oncologist, PCP and discharge plan. CM will continue to support patient, family and discharge planning concerns.
[2019-07-27 11:59] VITALS: BP 122/67; PULSE 78; RESP 20; TEMP 36.4; O2SAT 92
--- NOTE | 2019-07-27 11:59 | PHA.REVIEW ---
Pharmacy Admission Review - Admission Clinical Review (Last Updated 07/26/19 @ 02:11 by Robert Collado) Discharge planning issues (Acute) History of pulmonary embolism (Acute) Pneumonia (Acute) Acute dehydration (Acute) Pneumonia (Acute) SOB (shortness of breath) (Acute) C. difficile colitis (Acute) bee venom protein (honey bee) Allergy (Unknown, Unverified 07/25/19 17:16) Latex, Natural Rubber Adverse Reaction (Intermediate, Unverified 07/25/19 17:16) adhesive tape Adverse Reaction (Mild, Unverified 07/25/19 17:16) Height 5 ft 8.9 in Weight 154.2 kg - Renal Dosing Renal Dosing: BUN 17 mg/dL (7-18) 07/27/19 06:20 Creatinine 1.17 mg/dL (0.55-1.02) H 07/27/19 06:20 Medications needing adjustments: Reviewed (CRCL ~52ML/MIN) - Anticoagulation Anticoagulation: Hgb 8.9 g/dL (12.0-15.5) L 07/27/19 06:20 Hct 27.9 % (36.0-46.0) L 07/27/19 06:20 Plt Count 224 x1000/uL (130-400) 07/27/19 06:20 Creatinine 1.17 mg/dL (0.55-1.02) H 07/27/19 06:20 DVT Prohphylaxis: Reviewed Medications: Apixaban Therapeutic Anticoagulation: Reviewed Medications: Apixaban - Opiate Usage Scheduled Bowel Reg ordered if on Opiates?: No (PRN LAST BM 07/24) - Relevant Labs Sodium 134 mmol/L (136-145) L 07/27/19 06:20 Potassium 4.3 mmol/L (3.5-5.1) 07/27/19 06:20 Chloride 100 mmol/L (98-107) 07/27/19 06:20 Magnesium 1.9 mg/dL (1.8-2.4) 07/27/19 06:20 Electrolytes, C-Reactive P, ESR: Reviewed (NA 134) - DM Control DM Control: Glucose 290 mg/dL (74-106) H 07/27/19 06:20 Finger Stick Blood Glucose 286 Finger Stick Blood Glucose 286 Finger Stick Blood Glucose 292 Finger Stick Blood Glucose 292 Insulin Dosing: Reviewed (HUMAN REGULAR ADJUSTED TODAY) - Heart Failure/PA EF%, MCKENNA's, B-Blockers, Diuretics: N/A - BP Control BP Control: Blood Pressure 121/65 Blood Pressure 105/61 If elevated: N/A - Qtc Review If Elevated: Reviewed (444) - IV to PO Switch IV Medications: Reviewed (ABX IV,) - Home Meds Home Med List reviewed: Reviewed (NOT ORDERED: VERZENIO, TRULICITY, GUAIFENESIN, BENZONATATE, spiriva(pt on combivent)) - Current meds Current Medication Order Review: Reviewed (covid testing pending, pt has recurrent CDiff and adreanl insuff, stage 4 breast CA)
[2019-07-27 13:32] LABS: COVID-19 RT-PCR UVMMC Result Negative (Negative)
[2019-07-27 15:30] VITALS: BP 111/55; PULSE 75; RESP 20; TEMP 36.4; O2SAT 97
[2019-07-27] MEDS: fentaNYL 50 MCG PATCH TD (16:05)
--- NOTE | 2019-07-27 16:33 | W.PM.PROGNOT ---
Date of Service Date of service: 07/27/19 Time of Service: 16:33 Assessment and Plan Assessment and plan (1) Pneumonia: Status: Acute Assessment and plan: Present on admission. Continue IV doxycycline and ceftriaxone. COVID-19 negative Taper stress dose steroids. Wean O2 as tolerated. Will schedule combivent. Continue prn albuterol. Given h/o recurrent CDiff infections, continue prophylactic PO vancomycin and probiotics. Hold oral chemo. Qualifiers: Pneumonia type: due to unspecified organism Laterality: left Lung location: lower lobe of lung Qualified Code(s): J18.9 - Pneumonia, unspecified organism (2) UTI (urinary tract infection): Status: Acute Assessment and plan: present on admission. Urine C&S with GNR. Await culture. Continue empiric abx (3) Acute dehydration: Status: Resolved Assessment and plan: Clinically resolved. (4) Stage IV breast cancer in female: Status: Chronic Assessment and plan: Continue pain control with fentanyl patch and prn norco. Palliative care consulted. Hold oral chemo while getting treatment for acute infection. (5) Adrenal insufficiency: Status: Chronic Assessment and plan: Taper stress dose steroids. (6) Obstructive sleep apnea: Status: Chronic Assessment and plan: Continue O2 HS. (7) History of pulmonary embolism: Status: Acute Assessment and plan: Continue eliquis as recommended by hematology, despite her weight. (8) Discharge planning issues: Status: Acute Assessment and plan: DNR/DNI Consult palliative care. Subjective Subjective Interval history since last seen: Ms Maynard states she is feeling better today. No dizziness, chest pain, breathing is better, no n/v, diarrhea. Exam Narrative Exam Narrative: General: Very pleasant obese female, A&Ox3, looks better HEENT: EOMI, MMM Heart: RRR, no m/r/g Lungs: diminished breath sounds B, no adventitious sounds Abdomen: soft, obese, nontender Extremities: +1 BLE edema, chronic venous stasis dermatitis Objective Objective Clinical Data: Abnormal lab results 07/27/19 07/27/19 Range/Units 06:20 06:20 WBC 4.23 L (4.4-10.8) k/cumm RBC 2.99 L (4.00-5.20) m/cumm Hgb 8.9 L (12.0-15.5) g/dL Hct 27.9 L (36.0-46.0) % MCHC 31.9 L (32.0-36.0) g/dL RDW 15.9 H (11.7-14.6) % Absolute Lymphocytes 0.81 L (1.2-3.4) k/cumm Sodium 134 L (136-145) mmol/L Creatinine 1.17 H (0.55-1.02) mg/dL Glucose 290 H (74-106) mg/dL Vital Signs Temperature 36.4 C L 07/27/19 11:59 Temperature Source Temporal Artery Scan 07/27/19 11:59 Pulse 78 07/27/19 11:59 Pulse Rhythm Regular 07/27/19 08:00 Pulse 94 H 07/25/19 17:47 Respiratory Rate 20 07/27/19 11:59 Respiratory Effort Non-Labored 07/27/19 08:00 Respiratory Depth Normal 07/27/19 08:00 Respiratory Pattern Normal 07/27/19 08:00 Blood Pressure 122/67 07/27/19 11:59 Blood Pressure Mean 95 07/25/19 17:47 Blood Pressure Position Supine 07/25/19 17:02 Pulse Oximetry 92 L 07/27/19 11:59 Oxygen Delivery Method Nasal Cannula 07/27/19 11:59 Oxygen Flow Rate 1.5 07/27/19 11:59 Pain Level 9 07/27/19 13:53 Intake & Output 07/26/19 07/27/19 07/27/19 23:59 11:59 23:59 Intake Total 0 / 3170 100 / 100 Output Total 900 / 1200 850 / 850 Balance 1170 / 1970 -750 / -750 Intake: IV 1200 / 2300 100 / 100 Oral 870 / 870 Output: Urine 900 / 1200 850 / 850 Other: Urine Color Light Giselle Yellow Urine Appearance Clear Clear Laboratory Results WBC 4.23 k/cumm (4.4-10.8) L 07/27/19 06:20 RBC 2.99 m/cumm (4.00-5.20) L 07/27/19 06:20 Hgb 8.9 g/dL (12.0-15.5) L 07/27/19 06:20 Hct 27.9 % (36.0-46.0) L 07/27/19 06:20 MCV 93.3 fL (80-95) 07/27/19 06:20 MCH 29.8 pg (27.0-33.0) 07/27/19 06:20 MCHC 31.9 g/dL (32.0-36.0) L 07/27/19 06:20 RDW 15.9 % (11.7-14.6) H 07/27/19 06:20 Plt Count 224 x1000/uL (130-400) 07/27/19 06:20 MPV 9.5 fL (8.0-11.0) 07/27/19 06:20 Immature Gran % 0.0 % 07/27/19 06:20 Neutrophils % 76.7 07/27/19 06:20 Lymphocytes % 19.1 07/27/19 06:20 Monocytes % 4.0 07/27/19 06:20 Eosinophils % 0.2 07/27/19 06:20 Basophils % 0.0 07/27/19 06:20 Absolute Neutrophils 3.24 k/cumm (1.2-6.7) 07/27/19 06:20 Absolute Lymphocytes 0.81 k/cumm (1.2-3.4) L 07/27/19 06:20 Absolute Monocytes 0.17 k/cumm (0.11-0.7) 07/27/19 06:20 Absolute Eosinophils 0.01 k/cumm (0.0-0.7) 07/27/19 06:20 Absolute Basophils 0.00 k/cumm (0.0-0.2) 07/27/19 06:20 Differential Comment Rbc morph reviewed 07/27/19 06:20 RBC Morphology See below 07/27/19 06:20 Polychromasia Present 07/27/19 06:20 Anisocytosis 1+ 07/27/19 06:20 Sodium 134 mmol/L (136-145) L 07/27/19 06:20 Potassium 4.3 mmol/L (3.5-5.1) 07/27/19 06:20 Chloride 100 mmol/L (98-107) 07/27/19 06:20 Carbon Dioxide 27.8 mmol/L (21.0-32.0) 07/27/19 06:20 Anion Gap 6.2 mmol/L (3-11) 07/27/19 06:20 BUN 17 mg/dL (7-18) 07/27/19 06:20 Creatinine 1.17 mg/dL (0.55-1.02) H 07/27/19 06:20 Estimated GFR/1.73 m2 47.18 (mL/min/1.73m2) 07/27/19 06:20 Glucose 290 mg/dL (74-106) H 07/27/19 06:20 Calcium 8.6 mg/dL (8.5-10.1) 07/27/19 06:20 Magnesium 1.9 mg/dL (1.8-2.4) 07/27/19 06:20 Total Bilirubin 0.6 mg/dL (0.2-1.0) 07/26/19 06:30 AST 26 U/L (15-37) 07/26/19 06:30 ALT 14 U/L (14-59) 07/26/19 06:30 Alkaline Phosphatase 99 U/L (46-116) 07/26/19 06:30 Total Protein 7.5 g/dL (6.4-8.2) 07/26/19 06:30 Albumin 2.7 g/dL (3.4-5.0) L 07/26/19 06:30 TSH 0.06 uIU/mL (0.36-3.74) L 07/25/19 17:11 Free T4 1.07 ng/dL (0.76-1.46) 07/26/19 06:30 Urine Color Cancelled 07/26/19 01:18 Urine Clarity Cancelled 07/26/19 01:18 Urine pH Cancelled 07/26/19 01:18 Ur Specific [place] Cancelled 07/26/19 01:18 Urine Protein Cancelled 07/26/19 01:18 Urine Ketones Cancelled 07/26/19 01:18 Urine Blood Cancelled 07/26/19 01:18 Urine Nitrite Cancelled 07/26/19 01:18 Urine Bilirubin Cancelled 07/26/19 01:18 Urine Urobilinogen Cancelled 07/26/19 01:18 Ur Leukocyte Esterase Cancelled 07/26/19 01:18 Urine Glucose Cancelled 07/26/19 01:18 COVID-19 PCR Negative (Negative) 07/25/19 17:58 Nasopharyn COVID-19 PCR Not Applicable 05/24/20 17:58 Ref Test Perform Site [facility] lab 07/25/19 17:58
[2019-07-27] MEDS: cefTRIAXone 1 GM/50 ML BAG IVPB (18:18)
[2019-07-27 19:05] VITALS: BP 122/72; PULSE 77; RESP 20; TEMP 36.7; O2SAT 96
[2019-07-27] MEDS: DULoxetine 30 MG CAP 60 MG PO (20:06)
[2019-07-27] MEDS: Hydrocortisone SOD SUC. 100 MG VIAL 25 MG IVP (20:07)
[2019-07-27 23:10] VITALS: BP 123/73; PULSE 74; RESP 21; TEMP 36.6; O2SAT 94
[2019-07-28] MEDS: Vancomycin 125 MG CAP PO ×5 (00:47→23:38)
[2019-07-28] MEDS: Hydrocortisone SOD SUC. 100 MG VIAL 25 MG IVP ×4 (00:47→22:27)
[2019-07-28 03:54] VITALS: BP 103/64; PULSE 70; RESP 19; TEMP 36.9; O2SAT 96
[2019-07-28] MEDS: Levothyroxine 150 MCG TAB PO (06:05)
[2019-07-28 07:01] LABS: Abs Immature Grans 0.01 k/cumm (0.0-0.09); Absolute Eosinophil Count 0.03 k/cumm (0.0-0.7); Absolute Lymphocyte Count 1.64 k/cumm (1.2-3.4); Absolute Monocyte Count 0.27 k/cumm (0.11-0.7); Absolute Neutrophil Count 2.83 k/cumm (1.2-6.7); Eosinophils % 0.6; HCT 27.2 % (36.0-46.0); HGB 8.9 g/dL (12.0-15.5); Immature Grans % 0.2 %; Lymphocytes % 34.3; Mean Corp. HGB Concentration 32.7 g/dL (32.0-36.0); Mean Corpuscular Volume 91.6 fL (80-95); Monocytes % 5.6; Neutrophils % 59.3; Platelet Count 236 x1000/uL (130-400); RBC 2.97 m/cumm (4.00-5.20); RBC Distribution Width 15.8 % (11.7-14.6); White Blood Cell Count 4.78 k/cumm (4.4-10.8)
[2019-07-28 07:03] LABS: Anion Gap 7.8 mmol/L (3-11); BUN 20 mg/dL (7-18); CO2 26.2 mmol/L (21.0-32.0); Calcium 8.3 mg/dL (8.5-10.1); Chloride 101 mmol/L (98-107); Estimated GFR 50.67 (mL/min/1.73m2); Glucose 93 mg/dL (74-106); Magnesium 1.8 mg/dL (1.8-2.4); Potassium 3.9 mmol/L (3.5-5.1); Sodium 135 mmol/L (136-145)
[2019-07-28 07:28] VITALS: BP 118/72; PULSE 90; RESP 18; TEMP 36.2; O2SAT 93
[2019-07-28] MEDS: DOXYCYCLINE 100 MG in Normal Saline 100 ML IVPB ×2 (08:41→20:53)
[2019-07-28] MEDS: Pregabalin 100 MG CAP 200 MG PO ×3 (08:42→20:45)
[2019-07-28] MEDS: Montelukast 10 MG TAB PO (08:42)
[2019-07-28] MEDS: Omeprazole 20 MG CAPCR 40 MG PO (08:42)
[2019-07-28] MEDS: Normal Saline Flush 10 ML SYR IVP ×4 (08:42→22:28)
[2019-07-28] MEDS: Apixaban 5 MG TAB PO ×2 (08:42→20:45)
[2019-07-28] MEDS: Folic Acid 1 MG TAB PO (08:42)
[2019-07-28] MEDS: Cyanocobalamin 500 MCG TAB 1000 MCG PO (08:42)
[2019-07-28] MEDS: Oxybutynin 5 MG TAB PO ×3 (08:42→20:45)
[2019-07-28] MEDS: Loratidine 10 MG TAB PO (08:43)
[2019-07-28] MEDS: carBAMazepine 200 MG TAB PO ×2 (08:43→20:45)
[2019-07-28] MEDS: HYDROcodone 5/Acetaminophen 325 TAB PO ×3 (08:43→20:46)
[2019-07-28] MEDS: Ferrous Sulfate 325 MG TAB PO (08:43)
[2019-07-28] MEDS: Ipratropium/Albuterol 4 GM 120 PUFF INH IH ×4 (09:30→20:42)
[2019-07-28] MEDS: Budesonide/Formoterol 160/4.5 6 GM 60 PUFF INH IH ×2 (09:30→20:44)
--- NOTE | 2019-07-28 09:45 | PT.INIE ---
Date of service: 07/28/19 PT Notes Visit Reasons: PNEUMONIA, DEHYDRATION Physical Therapy Inpatient Initial Evaluation Date: 07/28/2019 Referring Doctor: Sheyla Reno MD PT Orders: PT CONSULT: Limited ability Precautions: Fall. Standard. Activity as tolerated. Patient Profile/Admitting Diagnosis: Candace is a 59-year-old female who presented to the ED on 07/25/2019 with chief complaints of SOB and generalized body malaise worsened for the past 1 to 1-1/2 days prior to admission. Patient is diagnosed with pneumonia, UTI, and acute dehydration with referral for skilled physical therapy services in order to address resulting impairments in mobility performance. PMHX: Medical History (Updated 07/26/19 @ 02:12 by Robert Collado) C. difficile diarrhea (Acute) Cancer related pain (Chronic) Carpal tunnel syndrome (Acute) Chronic adrenal insufficiency (Acute) Chronic pain (Chronic) Chronic respiratory failure with hypoxia (Chronic) Chronic venous stasis dermatitis (Chronic) COPD (chronic obstructive pulmonary disease) (Chronic) On nocturnal oxygen - 2L prn Depression (Chronic) Diabetes mellitus (Chronic) Insulin dependent Diverticulosis (Acute) Dyslipidemia (Chronic) Goals of care, counseling/discussion (Acute) History of breast cancer (Chronic) metastatic, with lymphatic spread and bone mets Hyperlipidemia (Acute) Hypopituitarism (Chronic) Hypothyroidism (Chronic) Influenza B (Acute) Iron deficiency anemia (Acute) Metastatic breast cancer (Chronic) Obesity (Chronic) Obstructive sleep apnea (Chronic) per [facility] records Palliative care patient (Chronic) Pneumonia (Acute) hospitalized once they come homeocial History/Home Situation: POLST (Physician Orders for Life-Sustaining Treatment) (Acute) done 03/26/19; sent to [facility], [facility], original to her Restless leg syndrome (Acute) Spinal stenosis (Acute) Stage IV breast cancer in female (Chronic) Uncontrolled pain (Resolved) Surgical History H/O bilateral mastectomy (Acute) H/O colonoscopy with polypectomy (Acute) History of carpal tunnel release of both wrists (Acute) Port-A-Cath in place (Acute) Status post transsphenoidal pituitary resection (Acute) Social History/Home Situation: Candace lives with her daughter in [place], [place] in a two-story house with a ramp to enter with rails on both sides. Patient has stairs to the second floor of the house but has everything she needs on the first floor. She is disabled. She has 2 daughters locally. She receives choices for care highest needs, and her daughter Kiki is her primary provider for 12 years now. [facility] provides assistance with bathing and does meal preapration and assistance with lower body dressing. She was independent with front-wheeled walker for in-house ambulation and uses the 4-wheeled walker for outdoor ambulation. She has to walk about 80-90 feet to get to her car. She is dependent on her daughter for transportation to and from appointments. Daughter also provides assistance with bathing patient's back due to body habitus. Equipment Owned/DME: Bariatric FWW, bariatric hospital bed, bariatric recliner, bariatric front wheeled walker, new bariatric wheelchair with seat and back cushions Subjective: Patient is seen resting in bed and is agreeable to a PT evaluation. Denies any headache, chest pain, and lightheadedness. Patient reports that 8?9/10 has been her baseline pain level for the past several months. Objective: General Observation: IV in right UE open. Hemosiderin staining observed in bilateral distal legs from CVI. Abdominal panniculus. Mental Status: Alert and oriented x 4 Pain: 9/10 ROM: Right Upper Extremity: Shoulder flexion 90-100 degrees. Elbow flexion WFL. Hands/wrist and fingers are WFL. Left Upper Extremity: Shoulder flexion 90-100 degrees. Elbow flexion WFL. Hands/wrist and fingers are WFL. Right Lower Extremity: Patient is able to bend hip to about 20 degrees beyond 90 while seated at edge of bed. Knee flexion WFL. Dorsiflexion/plantarflexion WFL. Left Lower Extremity: Patient is able to bend hip to about 10 degrees beyond 90 while seated at edge of bed. Knee flexion WFL. Dorsiflexion/plantarflexion WFL. Strength: Right Upper Extremity: Shoulder flexion 3-/5. Elbow flexion 4/5. Volleyball Referee strong and functional Left Upper Extremity: Shoulder flexion 3-/5. Elbow flexion 4/5. Volleyball Referee strong and functional. Right Lower Extremity: Hip flexion 3-/5. Hip extension 3/5. Knee flexion 4/-5. Knee extension 4-/5. Ankle dorsiflexion/plantarflexion 4/5. Left Lower Extremity: Hip flexion 3-/5. Hip extension 3/5. Knee flexion 4-/5. Knee extension 4-/5. Ankle dorsiflexion/plantarflexion 4/5. Bed Mobility/Transfers: Refused transfer and ambulation assessment due to severe cancer pain in hips with movement Gait: NT Balance: Static Sitting: NT Dynamic Sitting: NT Static Standing: NT Dynamic Standing: NT Special Tests: Mobility Limitations Standardized Measure [facility] 6 clicks Basic Mobility Inpatient Short Form: Raw Score: 9 CMS Score: 81% deficit Informed Consent/Education: Patient was instructed in purpose of PT consult and plan of care. Assessment: Patient declined any out of activities today due to report of significant pain on bilateral hips with any kind of movement she states that she feels most comfortable lying in bed at this time. She did agree to attempting to get out of bed tomorrow morning hoping that she can get the rest that she needed today. Patient demonstrates significant functional mobility decline, need for assistive device for all mobility ADL performance, inability to bear weight on B LE due to pain, and decreased activity tolerance resulting from admitting diagnoses. Candace is a 59-year-old female who presented to the ED on 07/25/2019 with chief complaints of SOB and generalized body malaise that worsened for the past 1 to 1-1/2 days prior to admission. Patient is diagnosed with pneumonia, UTI, and acute dehydration with referral for skilled physical therapy services in order to address resulting impairments in mobility performance. PT goals will be aimed at addressing the following impairment level findings: 1. Decreased range of motion for hip and knees bilaterally 2. Impaired strength to B LE 3. Impaired activity tolerance 4. Decreased balance skills 5. Pain on B hips Impairments are contributing to the following functional limitations: 1. Increased risk for falls due to balance impairments 2. Limited ambulation distance 3. Need for assistive device for all mobility ADL performance 4. Increased fall risk 5. Dependent bed mobility 6. Inability to perform transfer activities due to pain on both in both hips Patient is assessed as a high 74308 complexity based on the following: History: 59-year-old female with impairment level findings, functional limitations, and [facility] deficits score of Examination: Decline in mobility level, strength deficits, and activity tolerance limitations as above due to current diagnoses Presentation: Evolving Decision Making: High complexity [id number] Goals: Goals X 1 week 1. Supine-Sit minimal assist 2. Sit-Supine minimal assist 3. Sit-Stand minimal assist 4. Stand-Sit minimal assist 5. Bed-Chair minimal assist 6. Chair-Bed minimal assist 7. Indoor ambulation using FWW for at least 50 feet 8. Independent with home exercise program 9. Static/dynamic standing balance/tolerance good Plan of Care/Treatment Plan: 1-2x/day, 7 days/week x 1 week. Plan of care has been reviewed with the OPERATING ROOM SPECIALIST providing the service under Physical Therapy direction. Initiate Physical Therapy intervention for strengthening, bed mobility, transfers, gait, stairs, balance training, use of assistive device, HEP education/training. DISCHARGE RECOMMENDATIONS: Patient will benefit from home health PT services in order to progress mobility level using four-wheeled walker, assess home safety, identify additional equipment needs, and cotninue with a functional maintenance program that will increase ability of patient to remain at home with daughter. TREATMENT CODE/TIME: 99843 x 30, 60923 x 10 minutes beginning at 9:45 AM. Thank you very much for this referral. Allie Miguel PT, DPT, CLT [facility] at [place], [place]
--- NOTE | 2019-07-28 10:46 | CMPROGNOTE_ITS ---
- If Service Date Differs Date of service: 07/28/19 Time of Service: 10:46 Care Management Progress Note S/O: Candace was sitting up in bed when CM met with her. She was pleasant and cooperative but sleepy. Candace stated that her bed broke last night and that she did not get much sleep. 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 She stated that she misses that life. A: Candace is a 59 year old woman admitted to [facility] on 07/25/19 with pneumonia P: Candace will likely be discharged home with a resumption of home health services. She will follow up with her oncologist, PCP and discharge plan. CM will continue to support patient, family and discharge planning concerns.
[2019-07-28] MEDS: Cholestyramine/Aspartame PKT 1 EACH PO ×2 (10:53→19:08)
--- NOTE | 2019-07-28 11:09 | DM INPTCON_ITS ---
Date of service: 07/28/19 Time of Service: 11:10 Diabetes Inpatient Consult DESCRIPTION/ASSESSMENT: Diabetes Education Consult received. Candace admitted with PNA, hyperglycmia, dehydration with morbid obesity and end stage metastatic Breast CA. On pallative care currently. Following CHO diet but FS continue to have wide fluctuations from 93-344mg/dl in last couple of days. Elevated BS most likely due to infection. Most recent A1C 8.5% (06/29/19. Candace reports she checks her blood sugars regularly and tends to follow a lower carb diet. She is frustrated that she no longer can get out of bed and that her blood sugars get elevated whenever she gets ill. Reviewed diet principles for optimal blood sugar control. She reports checking her sugars 3 times daily. Home insulin regime may need to be adjusted at d/c as recent A1C elevated. Home meds include humulin R-U 500 70 units q am, 40 u q noon, 40 units q pm. INTERVENTION: Provided education on DM including Hyper/hypoglycemia s/s with action plan for each scenario. Definition and types of CHO with examples, CHO counting, DASH diet materials, DM meal planning and label reading literature. Reviewed desirable BG levels with patient with food choices and portions for optimal outcomes. Provided contact information for this RD and encouraged her to call with any f/u questions r/t to DM self management. CDM from [employer] has been helping Candace to count his CHO's and achieve intake of ~65g/CHO per meal period. PLAN: Candace will review literature provided, use hospital resources and home health services for support of DM self management techniques. Time Spent in Nutritional Counseling and Treatment: 15 min spent face to face
[2019-07-28] MEDS: Insulin Aspart 300 UNITS/3 ML PEN SC (12:08)
[2019-07-28 15:50] VITALS: BP 91/58; PULSE 79; RESP 19; TEMP 36.5; O2SAT 96
--- NOTE | 2019-07-28 16:00 | PT.INNT ---
Date of service: 07/28/19 Time of Service: 04:00 PT Notes Visit Reasons: PNEUMONIA, DEHYDRATION Patient reported significant pain on bilateral hips which she stresses has been due to the spread of her cancer. She states that her baseline right now is a 8?9/10 pain level and any movement aggravates the pain. She stated that she would like to rest for today and would be glad to try out out of bed activities tomorrow. Patient reports that nurse is aware of said complaint. We will plan on seeing patient as scheduled for functional mobility training.
--- NOTE | 2019-07-28 16:32 | PGE_ITS ---
Date of Service Date of service: 07/28/19 Time of Service: 16:32 Assessment and Plan Assessment and plan (1) Pneumonia: Status: Acute Assessment and plan: Present on admission. Continue IV doxycycline and ceftriaxone (day 4). COVID-19 negative Continue to taper stress dose steroids. Wean O2 as tolerated. Will schedule combivent. Continue prn albuterol. Given h/o recurrent C.Diff infections, continue prophylactic PO vancomycin and probiotics. Hold oral chemo. Qualifiers: Pneumonia type: due to unspecified organism Laterality: left Lung location: lower lobe of lung Qualified Code(s): J18.9 - Pneumonia, unspecified organism (2) UTI (urinary tract infection): Status: Acute Assessment and plan: Due to E. Coli and gram positive beverly, present on admission. Sensitivities of E. Coli are pending, but previously has grown pansensitive organism. Continue ceftriaxone. (3) Acute dehydration: Status: Resolved Assessment and plan: Clinically resolved. (4) Stage IV breast cancer in female: Status: Chronic Assessment and plan: Continue pain control with fentanyl patch and prn norco. Palliative care consulted. Hold oral chemo while getting treatment for acute infection. (5) Adrenal insufficiency: Status: Chronic Assessment and plan: Continue to taper stress dose steroids. (6) Obstructive sleep apnea: Status: Chronic Assessment and plan: Continue O2 HS. (7) History of pulmonary embolism: Status: Acute Assessment and plan: Continue eliquis as recommended by hematology, despite her weight. (8) Discharge planning issues: Status: Acute Assessment and plan: DNR/DNI Consult palliative care. Subjective Subjective Interval history since last seen: Feels a lot better. Denies dizziness, chest pain, states breathing is good, denies n/v. Didn't sleep last night due to the bed malfunction. Exam Narrative Exam Narrative: General: Very pleasant obese female, A&Ox3, looks herself today HEENT: EOMI, MMM Heart: RRR, no m/r/g Lungs: diminished breath sounds B, no adventitious sounds Abdomen: soft, obese, nontender; has a alex Extremities: trace BLE edema, chronic venous stasis dermatitis Objective Objective Clinical Data: Abnormal lab results 07/28/19 07/28/19 Range/Units 06:10 06:10 RBC 2.97 L (4.00-5.20) m/cumm Hgb 8.9 L (12.0-15.5) g/dL Hct 27.2 L (36.0-46.0) % RDW 15.8 H (11.7-14.6) % Sodium 135 L (136-145) mmol/L BUN 20 H (7-18) mg/dL Creatinine 1.10 H (0.55-1.02) mg/dL Calcium 8.3 L (8.5-10.1) mg/dL Vital Signs Temperature 36.2 C L 07/28/19 07:28 Temperature Source Tympanic 07/28/19 07:28 Pulse 90 07/28/19 07:28 Pulse Rhythm Regular 07/27/19 15:30 Pulse 94 H 07/25/19 17:47 Respiratory Rate 18 07/28/19 07:28 Respiratory Effort Non-Labored 07/27/19 15:30 Respiratory Depth Normal 07/27/19 15:30 Respiratory Pattern Normal 07/27/19 15:30 Blood Pressure 118/72 07/28/19 07:28 Blood Pressure Mean 95 07/25/19 17:47 Blood Pressure Position Supine 07/25/19 17:02 Pulse Oximetry 93 L 07/28/19 07:28 Oxygen Delivery Method Room Air 07/28/19 07:28 Oxygen Flow Rate 0 07/28/19 07:28 Pain Level 9 07/28/19 14:41 Intake & Output 07/27/19 07/28/19 07/28/19 23:59 11:59 23:59 Intake Total 400 / 740 730 / 730 Output Total 400 / 1250 1725 / 1725 Balance 0 / -510 -995 / -995 Weight 152.4 kg Intake: IV 250 / 250 Oral 400 / 640 480 / 480 Output: Urine 400 / 1250 1725 / 1725 Other: Urine Color Yellow Yellow Urine Appearance Clear Clear Urine Odor Normal Stool Size Moderate Stool Characteristics Soft Voiding Methods Indwelling Catheter Laboratory Results WBC 4.78 k/cumm (4.4-10.8) 07/28/19 06:10 RBC 2.97 m/cumm (4.00-5.20) L 07/28/19 06:10 Hgb 8.9 g/dL (12.0-15.5) L 07/28/19 06:10 Hct 27.2 % (36.0-46.0) L 07/28/19 06:10 MCV 91.6 fL (80-95) 07/28/19 06:10 MCH 30.0 pg (27.0-33.0) 07/28/19 06:10 MCHC 32.7 g/dL (32.0-36.0) 07/28/19 06:10 RDW 15.8 % (11.7-14.6) H 07/28/19 06:10 Plt Count 236 x1000/uL (130-400) 07/28/19 06:10 MPV 9.0 fL (8.0-11.0) 07/28/19 06:10 Immature Gran % 0.2 % 07/28/19 06:10 Neutrophils % 59.3 07/28/19 06:10 Lymphocytes % 34.3 07/28/19 06:10 Monocytes % 5.6 07/28/19 06:10 Eosinophils % 0.6 07/28/19 06:10 Basophils % 0.0 07/28/19 06:10 Absolute Neutrophils 2.83 k/cumm (1.2-6.7) 07/28/19 06:10 Absolute Lymphocytes 1.64 k/cumm (1.2-3.4) 07/28/19 06:10 Absolute Monocytes 0.27 k/cumm (0.11-0.7) 07/28/19 06:10 Absolute Eosinophils 0.03 k/cumm (0.0-0.7) 07/28/19 06:10 Absolute Basophils 0.00 k/cumm (0.0-0.2) 07/28/19 06:10 Differential Comment Rbc morph reviewed 07/27/19 06:20 RBC Morphology See below 07/27/19 06:20 Polychromasia Present 07/27/19 06:20 Anisocytosis 1+ 07/27/19 06:20 Sodium 135 mmol/L (136-145) L 07/28/19 06:10 Potassium 3.9 mmol/L (3.5-5.1) 07/28/19 06:10 Chloride 101 mmol/L (98-107) 07/28/19 06:10 Carbon Dioxide 26.2 mmol/L (21.0-32.0) 07/28/19 06:10 Anion Gap 7.8 mmol/L (3-11) 07/28/19 06:10 BUN 20 mg/dL (7-18) H 07/28/19 06:10 Creatinine 1.10 mg/dL (0.55-1.02) H 07/28/19 06:10 Estimated GFR/1.73 m2 50.67 (mL/min/1.73m2) 07/28/19 06:10 Glucose 93 mg/dL (74-106) D 07/28/19 06:10 Calcium 8.3 mg/dL (8.5-10.1) L 07/28/19 06:10 Magnesium 1.8 mg/dL (1.8-2.4) 07/28/19 06:10 Total Bilirubin 0.6 mg/dL (0.2-1.0) 07/26/19 06:30 AST 26 U/L (15-37) 07/26/19 06:30 ALT 14 U/L (14-59) 07/26/19 06:30 Alkaline Phosphatase 99 U/L (46-116) 07/26/19 06:30 Total Protein 7.5 g/dL (6.4-8.2) 07/26/19 06:30 Albumin 2.7 g/dL (3.4-5.0) L 07/26/19 06:30 TSH 0.06 uIU/mL (0.36-3.74) L 07/25/19 17:11 Free T4 1.07 ng/dL (0.76-1.46) 07/26/19 06:30 Urine Color Cancelled 07/26/19 01:18 Urine Clarity Cancelled 07/26/19 01:18 Urine pH Cancelled 07/26/19 01:18 Ur Specific [place] Cancelled 07/26/19 01:18 Urine Protein Cancelled 07/26/19 01:18 Urine Ketones Cancelled 07/26/19 01:18 Urine Blood Cancelled 07/26/19 01:18 Urine Nitrite Cancelled 07/26/19 01:18 Urine Bilirubin Cancelled 07/26/19 01:18 Urine Urobilinogen Cancelled 07/26/19 01:18 Ur Leukocyte Esterase Cancelled 07/26/19 01:18 Urine Glucose Cancelled 07/26/19 01:18 COVID-19 PCR Negative (Negative) 07/25/19 17:58 Nasopharyn COVID-19 PCR Not Applicable 07/25/19 17:58 Ref Test [facility] 07/25/19 17:58
[2019-07-28] MEDS: cefTRIAXone 1 GM/50 ML BAG IVPB (17:49)
[2019-07-28 20:00] VITALS: BP 112/69; PULSE 80; RESP 20; TEMP 36.2; O2SAT 95
[2019-07-28] MEDS: DULoxetine 30 MG CAP 60 MG PO (22:25)
[2019-07-29] VITALS (8 sets, daily range): BP systolic 107–148; BP diastolic 61–77; PULSE 65–81; RESP 17–20; TEMP 36.1–36.9; O2SAT 95–100
[2019-07-29] MEDS: Levothyroxine 150 MCG TAB PO (06:22)
[2019-07-29] MEDS: Vancomycin 125 MG CAP PO ×3 (06:22→18:18)
[2019-07-29] MEDS: Normal Saline Flush 10 ML SYR IVP ×2 (06:23→11:03)
[2019-07-29] MEDS: Hydrocortisone SOD SUC. 100 MG VIAL 25 MG IVP (06:23)
[2019-07-29] MEDS: Ipratropium/Albuterol 4 GM 120 PUFF INH IH ×4 (08:12→19:42)
[2019-07-29] MEDS: Budesonide/Formoterol 160/4.5 6 GM 60 PUFF INH IH ×2 (08:12→19:42)
[2019-07-29] MEDS: Pregabalin 100 MG CAP 200 MG PO ×3 (08:36→19:43)
[2019-07-29] MEDS: Cyanocobalamin 500 MCG TAB 1000 MCG PO (08:36)
[2019-07-29] MEDS: Apixaban 5 MG TAB PO ×2 (08:36→19:43)
[2019-07-29] MEDS: HYDROcodone 5/Acetaminophen 325 TAB PO (08:36)
[2019-07-29] MEDS: Folic Acid 1 MG TAB PO (08:36)
[2019-07-29] MEDS: Omeprazole 20 MG CAPCR 40 MG PO (08:37)
[2019-07-29] MEDS: Loratidine 10 MG TAB PO (08:37)
[2019-07-29] MEDS: carBAMazepine 200 MG TAB PO ×2 (08:37→19:43)
[2019-07-29] MEDS: Oxybutynin 5 MG TAB PO ×3 (08:37→19:43)
[2019-07-29] MEDS: Ferrous Sulfate 325 MG TAB PO (08:37)
[2019-07-29] MEDS: Montelukast 10 MG TAB PO (08:38)
[2019-07-29] MEDS: DOXYCYCLINE 100 MG in Normal Saline 100 ML IVPB ×2 (08:38→19:42)
--- NOTE | 2019-07-29 10:31 | CHAPLAIN ---
Candace was up in a chair when I visited this morning. We know each other from previous admissions. Candace is familiar with many of the staff and seems to feel very comfortable with them. She told me about having trouble sleeping because of the bed she's been in before she moved to this room. Candace reminisced about visiting with her cousins when she was young. They came to visit her in [place] and she visited them in [facility] and visited [facility] with them. Candace recently got back in touch with a cousin she hasn't seen in 35 years. Candace's daughter Kiki is her primary care givers. She said it's frustrating that Kiki can't visit here because Kiki knows Candace's medication and can better answer some of the hospitalists questions. Candace is in touch with both her daughters by phone.
[2019-07-29] MEDS: Cholestyramine/Aspartame PKT 1 EACH PO ×2 (10:35→19:43)
[2019-07-29] MEDS: Insulin Aspart 300 UNITS/3 ML PEN SC (11:48)
--- NOTE | 2019-07-29 12:56 | PCNE_ITS ---
Date of service: 07/29/19 Time of Service: 12:56 History of Present Illness Narrative: Candace Maynard is a 59 year old female, currently being treated for pneumonia with doxycycline and ceftriaxone (COVID negative), also being treated for UTI, and on prophylactic oral vancomycin and probiotics for recurrent c.diff. She also has stage IV breast cancer, currently being treated with oral chemo, followed by [facility]. She reports that the cancer has spread all over her body, in her bones, causes pain. She is on fentanyl patch 50 mcg which helps, she takes hydrocodone 7.5 mg for breakthrough pain (PCP Rx). Today, she reports that her breathing has been better, worse today, little more short of breath, denies coughing except when she was eating her lunch, she had some pork go down the wrong way. Denies wheezing. Denies CP/Pressure, palpitations, appetite is up and down, denies nausea,vomiting or diarrhea. Stools are soft, not watery. Sometimes has stool incontinence and urinary incontinence. Has had recurrent c-diff. Hoping to go to [facility] for fecal transplant in the near future. She sleeps well at home, has been sleeping well in hospital also. Candace lives with daughter, Kiki, in [place], she reports that her daughter takes good care of her. She helps with everything including helping getting her bathed and dressed. Her granddaughter, Anne helps as well, she is 12 years old. She uses walker around the house, uses wheelchair when she goes out. Has 2 dogs, 4 cats, a rabbit, and a bird. She states that life is important to her. She enjoys being with her children, grandchildren, friends and siblings. She has 2, daughter Kiki and daughter Nevaeh. Lives with Kiki. Nevaeh lives nearby. She has 3 grandkids that she is close to and 5 or 6 that she does not see as much. Some are from step children. She has a great-grandson as well. She has a brother that she is close to and talks to frequently but does not see often. She feels sad that she has had to give up a lot. She cannot drive anymore due to difficulty moving her legs. She used to enjoy walking outside, cannot go out walking now. Used to enjoy bird and rabbit hunting. Feels like she is losing a l ot of her independence. She is dealing with changes well. She has good family support. Goals: In regard to cancer treatment, she states she is, doing what I have to do. She received PET scan results recently, shows cancer progression. We discussed what she expects from her cancer treatment, she states she wants to live. I'm a fighter. Wants to keep pain under control. Wants to stay living at home with her daughter. Hopes for next few months: Wants to be doing better than she is right now, wants to stay out of the hospital. Hopes to have fecal transplant and be able to get out. Does not like to leave house because she is worried about fecal incontinence. Used to go to [facility], scared to go now due to recurrent C-diff and fecal incontinence. She would like to get back to [facility], goes to [facility] in [place]. Has own spiritual beliefs and pedro pablo. Has beliefs, she is part . Part of [facility] [place]. Assessment and Plan Assessment and plan (1) UTI (urinary tract infection): Status: Acute Assessment and plan: Alex in place. Has been treated with doxycycline and ceftriaxone, should cover urinary tract infection as well. Previous cultures have grown E. coli. (2) History of pulmonary embolism: Status: Acute Assessment and plan: Chronically on anticoagulation with Eliquis, despite weight. (3) Pneumonia: Status: Acute Assessment and plan: Has been treated with doxycycline and ceftriaxone as well as stress dose steroids. Also has adrenal insufficiency. Qualifiers: Laterality: left Lung location: lower lobe of lung Pneumonia type: due to unspecified organism Qualified Code(s): J18.9 - Pneumonia, unspecified organism (4) C. difficile colitis: Status: Acute Assessment and plan: Has had several episodes of C. difficile colitis. Had visit with GI at [facility] to discuss possibility of fecal transplant. She is hopeful that she will receive a fecal transplant in the near future. Is c urrently on oral vancomycin and probiotics for prophylaxis while on antibiotics. (5) Stage IV breast cancer in female: Status: Chronic Assessment and plan: She is followed by Dr. Walden in [place]. She has a history of bilateral mastectomies. She is currently on oral chemo therapy. S he reports that her recent PET scan showed progression of her cancer, she reports that she has cancer all through her bones. She has cancer related pain for which she is on a fentanyl patch and takes hydromorphone for breakthrough pain. Her pain is well controlled at this time. She wishes to continue treatment for her breast cancer as her goal is to live longer. We discussed palliative care following her as an outpatient after her discharge and she is agreeable. (6) Cancer related pain: Status: Chronic Assessment and plan: As above. (7) POLST (Physician Orders for Life-Sustaining Treatment): Status: Acute Assessment and plan: She is a DNR/DNI. (8) Palliative care patient: Status: Chronic Assessment and plan: Candace has multiple medical comorbidities including m etastatic breast cancer. She is currently on palliative oral chemo. She reports that her most recent scan showed progression of the cancer. She wishes to continue with the oral chemotherapy at this time. She has had 7 hospital admissions here at [facility] in the last 6 months. She would benefit from being followed by palliative care as an outpatient as her disease and cancer burden progress. She is agreeable to follow-up in the palliative care office as she lives in [place], [place]. Follow-up as an outpatient in the next 2 to 3 months. Review of Systems Narrative: As noted in HPI. Also denies CP/pressure, palpitations. Reports that she occasionally has swelling in her lower extremities, not often. Has alex in place. [facility] Medical History C. difficile diarrhea (Acute) Cancer related pain (Chronic) much improved with fentanyl patch Carpal tunnel syndrome (Acute) Chronic adrenal insufficiency (Acute) Chronic pain (Chronic) Chronic respiratory failure with hypoxia (Chronic) Chronic venous stasis dermatitis (Chronic) COPD (chronic obstructive pulmonary disease) (Chronic) On nocturnal oxygen - 2L prn Depression (Chronic) Diabetes mellitus (Chronic) Insulin dependent Diverticulosis (Acute) Dyslipidemia (Chronic) Goals of care, counseling/discussion (Acute) History of breast cancer (Chronic) metastatic, with lymphatic spread and bone mets Hyperlipidemia (Acute) Hypopituitarism (Chronic) Hypothyroidism (Chronic) Influenza B (Acute) Iron deficiency anemia (Acute) Metastatic breast cancer (Chronic) Obesity (Chronic) Obstructive sleep apnea (Chronic) per [facility] records Palliative care patient (Chronic) Pneumonia (Acute) POLST (Physician Orders for Life-Sustaining Treatment) (Acute) done 03/26/19; sent to [facility], original to her Restless leg syndrome (Acute) Spinal stenosis (Acute) Stage IV breast cancer in female (Chronic) Uncontrolled pain (Resolved) Surgical History H/O bilateral mastectomy (Acute) H/O colonoscopy with polypectomy (Acute) History of carpal tunnel release of both wrists (Acute) Port-A-Cath in place (Acute) Status post transsphenoidal pituitary resection (Acute) Family History Father , age 83 from complications of diabetes Prostate cancer Diabetes Mother , age 79 from complications of Crohn's disease and coli tis Crohn's disease Colitis Daughter No problems noted. Daughter No problems noted. Brother No problems noted. Sister Diabetes Obesity Sister No problems noted. Sister No problems noted. Sister No problems noted. Social History Smoking/Tobacco Use Status: Former Tobacco Use Alcohol Intake: never Drug use: Never Substance use type: does not use Caregiver/Support person: Yes Household members: children Number of Children: 2 Communication Needs: Hard of Hearing and Corrective Lenses Education Level: middle school Do you need help understanding health information?: Always current occupation: on disability What is your relationship status?: How often do you talk on the phone with friends or family?: once per week How often do you get together with friends or relatives?: three or more times per week Panel score (0-1 are the most socially isolated patients): 1 What type of physical activity do you participate in: none, sedentary lifestyle, wheelchair-bound and additional Details: needs a new wheelchair, cannot walk far, just a few steps Special pedro pablo needs: No Do you feel safe at home: Yes Do you feel safe in your relationship?: Yes Additional Social history: , with 2 children. She is not working and on disability. Has a history of tobacco, quit in 1992. Reports rare use of alcohol only. Lives with daughter. Uses a walker to ambulate. Hard to do recently, depending more on WC. In a lot of pain. Recent scans show progression of breast cancer. Exam Narrative Exam Narrative: General: awake, alert and oriented, pleasant and talkative. HEENT: normocephalic, atraumatic. Pupils equal and round. Edentulous. mucous membranes moist. Neck: supple, large, unable to assess for JVD. Respiratory: respirations even and unlabored, Lungs sounds clear bilaterally. Cardiovascular: distand heart sounds, regular, no murmur appreciated. On oxygen via nasal cannula. Breasts: Bilateral mastectomy. GI: abdomen large, round, +BS, nontender on palpation. Extremities: venous stasis changes BLEs. Trace pitting edema bilaterally. Pedal pulses are faint but palpable. Results Last Vital Signs Temp 36.7 C 07/29/19 11:13 Pulse 81 07/29/19 11:13 Resp 17 07/29/19 11:13 BP 130/73 07/29/19 11:13 Pulse Ox 95 07/29/19 11:13 Labs Result diagrams: 07/28/19 06:10 07/28/19 06:10
--- NOTE | 2019-07-29 14:38 | PTTR_ITS ---
Date of service: 07/29/19 Time of Service: 14:38 PT Notes Visit Reasons: PNEUMONIA, DEHYDRATION Inpatient Physical Therapy Treatment Note [facility] Date: 07/29/2019 PRECAUTIONS: Fall. Standard. Activity as tolerated. SUBJECTIVE: Patient was looking forward to working with physical therapy this afternoon. She reports less pain on her hips that allowed her to do more for this session. She states that she may go home on Friday if everything goes well. OBJECTIVE: Telemetry monitoring in place. Morbidly obese. PAIN: Reported discomfort in bilateral hips with weight bearing. BED MOBILITY/TRANSFERS Sit-stand: From bedside recliner required minimal assist of 2 using both hands for support and needed help with preventing bilateral feet from sliding forward Stand-sit: Onto the edge of bed standby assist with minimal verbal cueing for hand placement Bed-Chair: Standby assist requiring minimal verbal cueing for hand placement Chair-bed: Standby assist requiring minimal verbal cueing for hand placement GAIT Assistive Device: Front wheeled walker Weight bearing: Full weightbearing Assist: Contact-guard assist with wheelchair follow of nurse Christoph Distance: 40 feet Deviation: Wide-based gait, reciprocal swing to gait pattern, decreased julia, minimal shortness of breath seen at end of activity, distance limited by fatigue and chronic hip pain Assessment: Patient demonstrates better pain control with mobility ADL performance today. Will continue to coordinate with nurse for pre-medication for pain for physical therapy. Mobility-ryan, patient is nearing her baseline as she does not require to be walk too far when she is at home. She is seen once a day to achieve the remainder of her goals with a tentative discharge date on Friday. Plan of Care/Treatment Plan: 1-2x/day, 7 days/week x 1 week. Plan of care has been reviewed with the MARKETING PROGRAM COORDINATOR providing the service under Physical Therapy direction. Initiate Physical Therapy intervention for strengthening, bed mobility, transfers, gait, stairs, balance training, use of assistive device, HEP education/training. DISCHARGE RECOMMENDATIONS: Patient will benefit from home health PT services in order to progress mobility level using four-wheeled walker, assess home safety, identify additional equipment needs, and cotninue with a functional maintenance program that will increase ability of patient to remain at home with daughter. TREATMENT CODE/TIME: 95210 x 31 minutes beginning at 14:38 PM.
[2019-07-29] MEDS: Hydrocortisone 10 MG TAB PO (14:39)
[2019-07-29] MEDS: Hydrocortisone 10 MG TAB 25 MG PO (17:05)
--- NOTE | 2019-07-29 17:55 | CMPROGNOTE_ITS ---
- If Service Date Differs Date of service: 07/29/19 Time of Service: 17:55 Care Management Progress Note S/O: Candace was sitting up in a chair when CM met with her. As usual, she was pleasant and engaged. She stated that she had a much better night last night but was still tired. This afternoon Candace had a visit from Aarti Kaye, Palliative Care OUTBOUND TELEMARKETING REPRESENTATIVE. Candace lives in [facility] but has agreed to come to [facility] to meet with Aarti again after discharge. She found the interaction helpful. A: Candace is a 59 year old woman admitted to [facility] on 07/25/19 with pneumonia P: Candace will likely be discharged home with a resumption of home health services. She will follow up with her oncologist, PCP and discharge plan. CM will continue to support patient, family and discharge planning concerns.
--- NOTE | 2019-07-29 17:59 | PGE_ITS ---
Date of Service Date of service: 07/29/19 Time of Service: 17:59 Assessment and Plan Assessment and plan (1) Pneumonia: Status: Resolved Assessment and plan: Present on admission. Finished doxycycline; continue ceftriaxone (day 5). COVID-19 negative Continue to taper stress dose steroids, but more slowly. On room air during the day - at baseline. Continue prn albuterol. Given h/o recurrent C.Diff infections, continue prophylactic PO vancomycin and probiotics. Hold oral chemo. Qualifiers: Pneumonia type: due to unspecified organism Laterality: left Lung location: lower lobe of lung Qualified Code(s): J18.9 - Pneumonia, unspecified organism (2) UTI (urinary tract infection): Status: Acute Assessment and plan: Due to E. Coli and gram positive beverly, present on admission. Sensitive to ceftriaxone - continue for 2 more days. (3) Acute dehydration: Status: Resolved Assessment and plan: Clinically resolved. (4) Stage IV breast cancer in female: Status: Chronic Assessment and plan: Continue pain control with fentanyl patch and prn norco. Palliative care consulted. Hold oral chemo while getting treatment for acute infection. (5) Adrenal insufficiency: Status: Chronic Assessment and plan: I think the taper was too quick, as evidenced by hypoglycemia. There is also a question of whether the patient is absorbing the hydrocortisone because she is on questran. Giving a dose of IV hydrocortisone 50 mg (in case 20 mg PO did not get absorbed). Start D5 fluids for now as repeat BG only 76. Hold evening insulin - decrease dose for tomorrow (6) Obstructive sleep apnea: Status: Chronic Assessment and plan: Continue O2 HS. (7) History of pulmonary embolism: Status: Acute Assessment and plan: Continue eliquis as recommended by hematology, despite her weight. (8) Discharge planning issues: Status: Acute Assessment and plan: DNR/DNI Consult palliative care. Subjective Subjective Interval history since last seen: Hypoglycemic to 51 before dinner. Denies feeling it. Per daughter, was only hypoglycemic a couple of times at home. Denies dizziness, chest pain, shortness of breath, nausea. Exam Narrative Exam Narrative: General: Very pleasant obese female, A&Ox3, drinking coca cola when I saw her (hypoglycemic) HEENT: EOMI, MMM Heart: RRR, no m/r/g Lungs: diminished breath sounds B, no adventitious sounds Abdomen: soft, obese, nontender; has a alex Extremities: trace BLE edema, chronic venous stasis dermatitis Objective Objective Clinical Data: Vital Signs Temperature 36.8 C 07/29/19 15:15 Temperature Source Tympanic 07/29/19 15:15 Pulse 69 07/29/19 15:15 Pulse Rhythm Regular 07/29/19 14:40 Pulse 94 H 07/25/19 17:47 Respiratory Rate 19 07/29/19 15:15 Respiratory Effort Non-Labored 07/29/19 14:40 Respiratory Depth Normal 07/29/19 14:40 Respiratory Pattern Normal 07/29/19 14:40 Blood Pressure 120/72 07/29/19 15:15 Blood Pressure Mean 95 07/25/19 17:47 Blood Pressure Position Supine 07/25/19 17:02 Pulse Oximetry 96 07/29/19 15:15 Oxygen Delivery Method Room Air 07/29/19 15:15 Oxygen Flow Rate 0 07/29/19 15:15 Pain Level 0 07/29/19 15:15 Intake & Output 07/28/19 07/29/19 07/29/19 23:59 11:59 23:59 Intake Total 490 / 1250 240 / 480 240 / 480 Output Total 600 / 2325 2600 / 2600 Balance -110 / -1075 -2360 / -2120 240 / -2120 Weight 153.1 kg Intake: IV 250 / 530 Oral 240 / 720 240 / 480 240 / 480 Output: Urine 600 / 2325 2600 / 2600 Other: Urine Color Yellow Yellow Urine Appearance Cloudy Clear Clear Stool Occult Blood Positive Stool Size Moderate Large Stool Characteristics Soft Soft Black Laboratory Results WBC 4.78 k/cumm (4.4-10.8) 07/28/19 06:10 RBC 2.97 m/cumm (4.00-5.20) L 07/28/19 06:10 Hgb 8.9 g/dL (12.0-15.5) L 07/28/19 06:10 Hct 27.2 % (36.0-46.0) L 07/28/19 06:10 MCV 91.6 fL (80-95) 07/28/19 06:10 MCH 30.0 pg (27.0-33.0) 07/28/19 06:10 MCHC 32.7 g/dL (32.0-36.0) 07/28/19 06:10 RDW 15.8 % (11.7-14.6) H 07/28/19 06:10 Plt Count 236 x1000/uL (130-400) 07/28/19 06:10 MPV 9.0 fL (8.0-11.0) 07/28/19 06:10 Immature Gran % 0.2 % 07/28/19 06:10 Neutrophils % 59.3 07/28/19 06:10 Lymphocytes % 34.3 07/28/19 06:10 Monocytes % 5.6 07/28/19 06:10 Eosinophils % 0.6 07/28/19 06:10 Basophils % 0.0 07/28/19 06:10 Absolute Neutrophils 2.83 k/cumm (1.2-6.7) 07/28/19 06:10 Absolute Lymphocytes 1.64 k/cumm (1.2-3.4) 07/28/19 06:10 Absolute Monocytes 0.27 k/cumm (0.11-0.7) 07/28/19 06:10 Absolute Eosinophils 0.03 k/cumm (0.0-0.7) 07/28/19 06:10 Absolute Basophils 0.00 k/cumm (0.0-0.2) 07/28/19 06:10 Differential Comment Rbc morph reviewed 07/27/19 06:20 RBC Morphology See below 07/27/19 06:20 Polychromasia Present 07/27/19 06:20 Anisocytosis 1+ 07/27/19 06:20 Sodium 135 mmol/L (136-145) L 07/28/19 06:10 Potassium 3.9 mmol/L (3.5-5.1) 07/28/19 06:10 Chloride 101 mmol/L (98-107) 07/28/19 06:10 Carbon Dioxide 26.2 mmol/L (21.0-32.0) 07/28/19 06:10 Anion Gap 7.8 mmol/L (3-11) 07/28/19 06:10 BUN 20 mg/dL (7-18) H 07/28/19 06:10 Creatinine 1.10 mg/dL (0.55-1.02) H 07/28/19 06:10 Estimated GFR/1.73 m2 50.67 (mL/min/1.73m2) 07/28/19 06:10 Glucose 93 mg/dL (74-106) D 07/28/19 06:10 Calcium 8.3 mg/dL (8.5-10.1) L 07/28/19 06:10 Magnesium 1.8 mg/dL (1.8-2.4) 07/28/19 06:10 Total Bilirubin 0.6 mg/dL (0.2-1.0) 07/26/19 06:30 AST 26 U/L (15-37) 07/26/19 06:30 ALT 14 U/L (14-59) 07/26/19 06:30 Alkaline Phosphatase 99 U/L (46-116) 07/26/19 06:30 Total Protein 7.5 g/dL (6.4-8.2) 07/26/19 06:30 Albumin 2.7 g/dL (3.4-5.0) L 07/26/19 06:30 TSH 0.06 uIU/mL (0.36-3.74) L 07/25/19 17:11 Free T4 1.07 ng/dL (0.76-1.46) 07/26/19 06:30 Urine Color Cancelled 07/26/19 01:18 Urine Clarity Cancelled 07/26/19 01:18 Urine pH Cancelled 07/26/19 01:18 Ur Specific [place] Cancelled 07/26/19 01:18 Urine Protein Cancelled 07/26/19 01:18 Urine Ketones Cancelled 07/26/19 01:18 Urine Blood Cancelled 07/26/19 01:18 Urine Nitrite Cancelled 07/26/19 01:18 Urine Bilirubin Cancelled 07/26/19 01:18 Urine Urobilinogen Cancelled 07/26/19 01:18 Ur Leukocyte Esterase Cancelled 07/26/19 01:18 Urine Glucose Cancelled 07/26/19 01:18 COVID-19 PCR Negative (Negative) 07/25/19 17:58 Nasopharyn COVID-19 PCR Not Applicable 07/25/19 17:58 Ref Test Perform Site [facility] 07/25/19 17:58
[2019-07-29] MEDS: DEXTROSE 5%-0.9% SALINE 1,000 ML 100 ML IV (18:16)
[2019-07-29] MEDS: Hydrocortisone SOD SUC. 100 MG VIAL 50 MG IVP (18:17)
[2019-07-29] MEDS: cefTRIAXone 1 GM/50 ML BAG IVPB (18:17)
[2019-07-29] MEDS: DULoxetine 30 MG CAP 60 MG PO (22:10)
[2019-07-30] VITALS (9 sets, daily range): BP systolic 105–143; BP diastolic 65–79; PULSE 66–75; RESP 16–19; TEMP 36.2–36.6; O2SAT 93–98
[2019-07-30] MEDS: Vancomycin 125 MG CAP PO ×4 (00:41→18:10)
[2019-07-30] MEDS: HYDROcodone 5/Acetaminophen 325 TAB PO ×3 (05:54→16:39)
[2019-07-30] MEDS: Levothyroxine 150 MCG TAB PO (05:54)
[2019-07-30] MEDS: DEXTROSE 5%-0.9% SALINE 1,000 ML 100 ML IV (05:54)
[2019-07-30] MEDS: Omeprazole 20 MG CAPCR 40 MG PO (08:03)
[2019-07-30] MEDS: Oxybutynin 5 MG TAB PO ×3 (08:03→20:30)
[2019-07-30] MEDS: Cyanocobalamin 500 MCG TAB 1000 MCG PO (08:03)
[2019-07-30] MEDS: Folic Acid 1 MG TAB PO (08:04)
[2019-07-30] MEDS: Apixaban 5 MG TAB PO ×2 (08:04→20:30)
[2019-07-30] MEDS: Hydrocortisone 10 MG TAB 30 MG PO (08:04)
[2019-07-30] MEDS: Pregabalin 100 MG CAP 200 MG PO ×3 (08:04→20:30)
[2019-07-30] MEDS: Montelukast 10 MG TAB PO (08:05)
[2019-07-30] MEDS: carBAMazepine 200 MG TAB PO ×2 (08:05→20:30)
[2019-07-30] MEDS: Loratidine 10 MG TAB PO (08:05)
[2019-07-30] MEDS: Ferrous Sulfate 325 MG TAB PO (08:05)
--- NOTE | 2019-07-30 08:25 | CMPROGNOTE_ITS ---
- If Service Date Differs Date of service: 07/30/19 Time of Service: 08:25 Care Management Progress Note S/O: Candace was sitting up in bed when CM met with her. As usual, she was pleasant and engaged. Candace stated that she is feeling tired today. This morning it appeared that Candace had stool in her vagina. After consultation with Gynecology, her provider ordered a barium enema to determine if there is a colo-vaginal fistula. Candace and her daughter Kiki agreed to the procedure. Candace shared that she is bored in the hospital so CM provided her with colored pencils and pictures from an adult coloring book. A: Candace is a 59 year old woman admitted to [facility] on 07/25/19 with pneumonia P: Candaec will likely be discharged home with a resumption of home health services. She will follow up with her oncologist, PCP and discharge plan. CM will continue to support patient, family and discharge planning concerns.
[2019-07-30] MEDS: Ipratropium/Albuterol 4 GM 120 PUFF INH IH ×4 (10:05→20:30)
[2019-07-30] MEDS: Budesonide/Formoterol 160/4.5 6 GM 60 PUFF INH IH ×2 (10:05→20:30)
[2019-07-30] MEDS: Cholestyramine/Aspartame PKT 1 EACH PO (10:29)
[2019-07-30] MEDS: Insulin Aspart 300 UNITS/3 ML PEN SC (12:34)
[2019-07-30] MEDS: Acetaminophen 325 MG TAB PO (12:40)
--- NOTE | 2019-07-30 14:00 | DI.RAD_ITS ---
EXAM: RF BARIUM ENEMA CLINICAL HISTORY: CONCERN FOR RECTOVAGINAL FISTULA COMPARISON: No exams were available for comparison TECHNIQUE: 2D and realtime digital imaging was performed. CONTRAST MATERIAL: Water soluble contrast was administered. FINDINGS: A limited exam was performed to assess for a rectovaginal fistula. Exam is limited by patient body h abitus and immobility. No contrast extravasation is seen from the rectum. The rectal contour appear s smooth and normal in diameter. IMPRESSION: No evidence of rectovaginal fistula. Fluoro Time: 50 seconds
--- NOTE | 2019-07-30 14:42 | W.PM.PROGNOT ---
Date of Service Date of service: 07/30/19 Time of Service: 14:42 Assessment and Plan Assessment and plan (1) Rectovaginal fistula: Status: Suspected Assessment and plan: While it is entirely possible that the findings today happened simply because of geographic proximity, the patient is at high risk for developing a fistula, given her recurrent bouts of C.Diff and chronic inflammation in the area. It would also explain her frequent UTIs. Await barium enema. If exam positive, consult general surgery. (2) Pneumonia: Status: Resolved Assessment and plan: Present on admission. Finished doxycycline; continue ceftriaxone (day 6). COVID-19 negative Continue current dose of hydrocortisone (30 mg in am, 10 in the pm). On room air during the day - at baseline. Continue prn albuterol. Given h/o recurrent C.Diff infections, continue prophylactic PO vancomycin and probiotics. (Was on vancomycin taper as outpatient, could have it repeated on discharge). Hold oral chemo. Qualifiers: Pneumonia type: due to unspecified organism Laterality: left Lung location: lower lobe of lung Qualified Code(s): J18.9 - Pneumonia, unspecified organism (3) UTI (urinary tract infection): Status: Acute Assessment and plan: Due to E. Coli and gram positive beverly, present on admission. Sensitive to ceftriaxone - continue through tomorrow. (4) Acute dehydration: Status: Resolved Assessment and plan: Clinically resolved. (5) Stage IV breast cancer in female: Status: Chronic Assessment and plan: Continue pain control with fentanyl patch and prn norco. Palliative care saw patient on this admission. Hold oral chemo while getting treatment for acute infection. (6) Adrenal insufficiency: Status: Chronic Assessment and plan: There is also a question of whether the patient is absorbing the oral hydrocortisone because she is on questran. No hypoglycemia today, but Candace looks and feels a little tired today, and we did have to decrease her insulin yesterday, put her on D5 and increase her hydrocortisone. Low threshould to repeat IV stress dose steroids. (7) Obstructive sleep apnea: Status: Chronic Assessment and plan: Continue O2 HS. (8) History of pulmonary embolism: Status: Acute Assessment and plan: Continue eliquis as recommended by hematology, despite her weight. (9) Discharge planning issues: Status: Acute Assessment and plan: DNR/DNI Not yet medically ready for discharge. Subjective Subjective Interval history since last seen: Feels tired today, but no hypoglycemia since yesterday early evening. Denies dizziness, chest pain, shortness of breath, nausea. Nursing this morning found stool in patient's vaginal vault. The patient agreed to go for barium enema. Exam Narrative Exam Narrative: General: Very pleasant obese female, A&Ox3, looks tired HEENT: EOMI, MMM Heart: RRR, no m/r/g Lungs: diminished breath sounds B, no adventitious sounds Abdomen: soft, obese, nontender; has a alex Extremities: trace BLE edema, chronic venous stasis dermatitis Objective Objective Clinical Data: Vital Signs Temperature 36.4 C L 07/30/19 11:35 Temperature Source Tympanic 07/30/19 11:35 Pulse 75 07/30/19 11:35 Pulse Rhythm Regular 07/29/19 20:00 Pulse 94 H 07/25/19 17:47 Respiratory Rate 18 07/30/19 11:35 Respiratory Effort Non-Labored 07/29/19 20:00 Respiratory Depth Normal 07/29/19 20:00 Respiratory Pattern Normal 07/29/19 20:00 Blood Pressure 138/72 07/30/19 11:35 Blood Pressure Mean 95 07/25/19 17:47 Blood Pressure Position Supine 07/25/19 17:02 Pulse Oximetry 94 L 07/30/19 11:35 Oxygen Delivery Method Room Air 07/30/19 11:35 Oxygen Flow Rate 0 07/30/19 11:35 Pain Level 5 07/30/19 11:35 Intake & Output 07/29/19 07/30/19 07/30/19 23:59 11:59 23:59 Intake Total 480 / 820 1240 / 1480 240 / 1480 Output Total 1000 / 3600 1350 / 1700 350 / 1700 Balance -520 / -2780 -110 / -220 -110 / -220 Weight 153 kg Intake: IV 1000 / 1000 Oral 480 / 720 240 / 480 240 / 480 Output: Urine 1000 / 3600 1350 / 1700 350 / 1700 Other: Urine Color Yellow Yellow Yellow Urine Appearance Clear Clear Clear Stool Size Moderate Small Stool Characteristics Soft Soft [place] Brown Laboratory Results WBC 4.78 k/cumm (4.4-10.8) 07/28/19 06:10 RBC 2.97 m/cumm (4.00-5.20) L 07/28/19 06:10 Hgb 8.9 g/dL (12.0-15.5) L 07/28/19 06:10 Hct 27.2 % (36.0-46.0) L 07/28/19 06:10 MCV 91.6 fL (80-95) 07/28/19 06:10 MCH 30.0 pg (27.0-33.0) 07/28/19 06:10 MCHC 32.7 g/dL (32.0-36.0) 07/28/19 06:10 RDW 15.8 % (11.7-14.6) H 07/28/19 06:10 Plt Count 236 x1000/uL (130-400) 07/28/19 06:10 MPV 9.0 fL (8.0-11.0) 07/28/19 06:10 Immature Gran % 0.2 % 07/28/19 06:10 Neutrophils % 59.3 07/28/19 06:10 Lymphocytes % 34.3 07/28/19 06:10 Monocytes % 5.6 07/28/19 06:10 Eosinophils % 0.6 07/28/19 06:10 Basophils % 0.0 07/28/19 06:10 Absolute Neutrophils 2.83 k/cumm (1.2-6.7) 07/28/19 06:10 Absolute Lymphocytes 1.64 k/cumm (1.2-3.4) 07/28/19 06:10 Absolute Monocytes 0.27 k/cumm (0.11-0.7) 07/28/19 06:10 Absolute Eosinophils 0.03 k/cumm (0.0-0.7) 07/28/19 06:10 Absolute Basophils 0.00 k/cumm (0.0-0.2) 07/28/19 06:10 Differential Comment Rbc morph reviewed 07/27/19 06:20 RBC Morphology See below 07/27/19 06:20 Polychromasia Present 07/27/19 06:20 Anisocytosis 1+ 07/27/19 06:20 Sodium 135 mmol/L (136-145) L 07/28/19 06:10 Potassium 3.9 mmol/L (3.5-5.1) 07/28/19 06:10 Chloride 101 mmol/L (98-107) 07/28/19 06:10 Carbon Dioxide 26.2 mmol/L (21.0-32.0) 07/28/19 06:10 Anion Gap 7.8 mmol/L (3-11) 07/28/19 06:10 BUN 20 mg/dL (7-18) H 07/28/19 06:10 Creatinine 1.10 mg/dL (0.55-1.02) H 07/28/19 06:10 Estimated GFR/1.73 m2 50.67 (mL/min/1.73m2) 07/28/19 06:10 Glucose 93 mg/dL (74-106) D 07/28/19 06:10 Calcium 8.3 mg/dL (8.5-10.1) L 07/28/19 06:10 Magnesium 1.8 mg/dL (1.8-2.4) 07/28/19 06:10 Total Bilirubin 0.6 mg/dL (0.2-1.0) 07/26/19 06:30 AST 26 U/L (15-37) 07/26/19 06:30 ALT 14 U/L (14-59) 07/26/19 06:30 Alkaline Phosphatase 99 U/L (46-116) 07/26/19 06:30 Total Protein 7.5 g/dL (6.4-8.2) 07/26/19 06:30 Albumin 2.7 g/dL (3.4-5.0) L 07/26/19 06:30 TSH 0.06 uIU/mL (0.36-3.74) L 07/25/19 17:11 Free T4 1.07 ng/dL (0.76-1.46) 07/26/19 06:30 Urine Color Cancelled 07/26/19 01:18 Urine Clarity Cancelled 07/26/19 01:18 Urine pH Cancelled 07/26/19 01:18 Ur Specific [place] Cancelled 07/26/19 01:18 Urine Protein Cancelled 07/26/19 01:18 Urine Ketones Cancelled 07/26/19 01:18 Urine Blood Cancelled 07/26/19 01:18 Urine Nitrite Cancelled 07/26/19 01:18 Urine Bilirubin Cancelled 07/26/19 01:18 Urine Urobilinogen Cancelled 07/26/19 01:18 Ur Leukocyte Esterase Cancelled 07/26/19 01:18 Urine Glucose Cancelled 07/26/19 01:18 COVID-19 PCR Negative (Negative) 07/25/19 17:58 Nasopharyn COVID-19 PCR Not Applicable 07/25/19 17:58 Ref Test [facility] 07/25/19 17:58
[2019-07-30] MEDS: Hydrocortisone 10 MG TAB PO (14:43)
[2019-07-30] MEDS: fentaNYL 50 MCG PATCH TD (14:43)
--- NOTE | 2019-07-30 15:05 | PT.INTREAT ---
Date of service: 07/30/19 Time of Service: 15:05 PT Notes Visit Reasons: PNEUMONIA, DEHYDRATION Inpatient Physical Therapy Treatment Note [facility] Date: 07/30/2019 PRECAUTIONS: Fall. Standard. Activity as tolerated. SUBJECTIVE: Patient states that her sugar crashed yesterday afternoon to the low 50s which gave her quite the scare. She did not have a good night. She only is agreeable to one day sessions as she states that she does not do a lot at home and does not walk too far to reach most frequently visited areas of the house. OBJECTIVE: Telemetry monitoring in place. Morbidly obese. PAIN: Reported discomfort in bilateral hips with weight bearing. BED MOBILITY/TRANSFERS Sit-stand: From bedside recliner required minimal assist of 2 using both hands for support and needed help with preventing bilateral feet from sliding forward Bed-Chair: Minimal assist requiring minimal verbal cueing for hand placement Chair-bed: Minimal assist requiring minimal verbal cueing for hand placement GAIT Assistive Device: Front wheeled walker Weight bearing: Full weightbearing Assist: Contact-guard assist with wheelchair follow of nurse Christoph Distance: 8 feet Deviation: Wide-based gait, reciprocal swing to gait pattern, decreased julia, minimal shortness of breath seen at end of activity, distance limited by fatigue and chronic hip pain Assessment: Patient was not able to do a lot today due to previous night's sugar issue which made her feel tired and weak early this morning. She needed to go down for testing which limited time spent with patient for physical therapy. Mobility-ryan, patient is nearing her baseline as she does not require to be walk too far when she is at home. She is seen once a day to achieve the remainder of her goals with a tentative discharge date on Friday. Plan of Care/Treatment Plan: Continue with PT POC as initially established DISCHARGE RECOMMENDATIONS: Patient will benefit from home health PT services in order to progress mobility level using four-wheeled walker, assess home safety, identify additional equipment needs, and cotninue with a functional maintenance program that will increase ability of patient to remain at home with daughter. TREATMENT CODE/TIME: 78190 x 10 minutes beginning at 15:05 PM.
[2019-07-30] MEDS: Omnipaque 350 MG/ML 100 ML BTL PO ×2 (16:13→16:14)
[2019-07-30] MEDS: Omnipaque 350 MG/ML 50 ML BTL PO (16:14)
[2019-07-30] MEDS: cefTRIAXone 1 GM/50 ML BAG IVPB (18:09)
[2019-07-30] MEDS: DULoxetine 30 MG CAP 60 MG PO (22:18)
--- NOTE | 2019-07-31 | DI.RAD_ITS ---
EXAM: XR CHEST 1V IN DI DEPT CLINICAL HISTORY: follow up pneumonia vs atelectasis TECHNIQUE: COMPARISON: CR,XR XR PORTABLE CHEST AP from 07/25/2019 FINDINGS: Heart is enlarged. There is a right Port-A-Cath in position. The lungs appear generally clear. No pleural effusion seen on this frontal film. IMPRESSION: No evidence of acute process.
[2019-07-31] MEDS: Normal Saline Flush 10 ML SYR IVP ×3 (00:15→17:05)
[2019-07-31] MEDS: Vancomycin 125 MG CAP PO ×5 (00:15→23:24)
[2019-07-31 03:30] VITALS: BP 134/69; PULSE 73; RESP 18; TEMP 36.4; O2SAT 95
[2019-07-31] MEDS: Levothyroxine 150 MCG TAB PO (06:14)
[2019-07-31 07:40] VITALS: BP 118/71; PULSE 73; RESP 17; TEMP 36.7; O2SAT 97
[2019-07-31] MEDS: Ipratropium/Albuterol 4 GM 120 PUFF INH IH ×3 (08:01→19:29)
[2019-07-31] MEDS: Budesonide/Formoterol 160/4.5 6 GM 60 PUFF INH IH ×2 (08:01→19:29)
[2019-07-31] MEDS: Cyanocobalamin 500 MCG TAB 1000 MCG PO (08:45)
[2019-07-31] MEDS: Apixaban 5 MG TAB PO ×2 (08:45→19:29)
[2019-07-31] MEDS: Omeprazole 20 MG CAPCR 40 MG PO (08:45)
[2019-07-31] MEDS: Pregabalin 100 MG CAP 200 MG PO ×3 (08:45→19:29)
[2019-07-31] MEDS: Acetaminophen 325 MG TAB PO (08:45)
[2019-07-31] MEDS: Montelukast 10 MG TAB PO (08:45)
[2019-07-31] MEDS: Hydrocortisone 10 MG TAB 30 MG PO (08:46)
[2019-07-31] MEDS: Ferrous Sulfate 325 MG TAB PO (08:46)
[2019-07-31] MEDS: Oxybutynin 5 MG TAB PO ×3 (08:47→19:29)
[2019-07-31] MEDS: Loratidine 10 MG TAB PO (08:47)
[2019-07-31] MEDS: carBAMazepine 200 MG TAB PO ×2 (08:47→19:29)
[2019-07-31] MEDS: Folic Acid 1 MG TAB PO (08:57)
[2019-07-31] MEDS: HYDROcodone 5/Acetaminophen 325 TAB PO ×2 (10:17→14:24)
[2019-07-31 11:10] VITALS: BP 134/79; PULSE 72; RESP 18; TEMP 36.5; O2SAT 94
--- NOTE | 2019-07-31 11:27 | PT.INNT ---
Date of service: 07/31/19 Time of Service: 11:25 PT Notes Visit Reasons: PNEUMONIA, DEHYDRATION Patient denies treatment today. She is uncomfortable and tired from procedures completed yesterday. She will try tomorrow.
[2019-07-31] MEDS: Insulin Aspart 300 UNITS/3 ML PEN SC (12:07)
--- NOTE | 2019-07-31 14:06 | DI.VRAD_ITS ---
PROCEDURE INFORMATION: Exam: XR Chest, 1 View Exam date and time: 07/31/2019 1:49 PM Age: 59 years old Clinical indication: Other: Follow up pneumonia vs atelectasis TECHNIQUE: Imaging protocol: XR of the chest Views: 1 view. COMPARISON: CR XR PORTABLE CHEST AP 07/25/2019 12:46 PM FINDINGS: Tubes, catheters and devices: Right-sided Port-A-Cath in good position. Lungs: Mild interstitial lung scarring. No focal pulmonary consolidation. Pleural space: No pleural effusion. No pneumothorax. Heart/Mediastinum: Moderate cardiomegaly unchanged. Bones/joints: Unremarkable. IMPRESSION: No definite evidence of acute cardiopulmonary disease. Dictated and Authenticated by: Tanner Reyez MD. Ordering:[facility] Amina Butler MD
[2019-07-31] MEDS: Hydrocortisone 10 MG TAB PO (14:24)
--- NOTE | 2019-07-31 14:28 | W.PM.PROGNOT ---
Date of Service Date of service: 07/31/19 Time of Service: 14:28 Assessment and Plan Assessment and plan (1) Rectovaginal fistula: Status: Resolved Assessment and plan: Limited barium enema was performed yesterday. No rectovaginal fistula was seen. Rectal wall was intact. (2) Pneumonia: Status: Ruled-out Assessment and plan: It is my opinion that the patient never had a pneumonia to begin with. I reviewed her admission chest x-ray and compared to the one done today. While the left base along was somewhat obscured clearly you can see the left hemidiaphragm and Dr. Dumont was equivocal as to whether there was an infiltrate or not. The patient denies ever having any shortness of breath or cough or sputum production. For this reason I am going to consider her pneumonia as having been ruled out. Qualifiers: Pneumonia type: due to unspecified organism Laterality: left Lung location: lower lobe of lung Qualified Code(s): J18.9 - Pneumonia, unspecified organism (3) UTI (urinary tract infection): Status: Acute Assessment and plan: Due to E. Coli and gram positive beverly, present on admission. Sensitive to ceftriaxone - Patient will complete her ceftriaxone today and be discharged home tomorrow. I will have nursing staff obtain a fresh urine specimen from her Mendoza catheter and then discontinue her catheter. She did not have an indwelling Mendoza catheter on admission Qualifiers: Urinary tract infection type: acute cystitis (4) Acute dehydration: Status: Resolved Assessment and plan: Clinically resolved. (5) Stage IV breast cancer in female: Status: Chronic Assessment and plan: Continue pain control with fentanyl patch and prn norco. Palliative care saw patient on this admission. Hold oral chemo while getting treatment for acute infection. (6) Adrenal insufficiency: Status: Chronic Assessment and plan: Patient is currently on hydrocortisone 30 mg in the morning and 10 mg in the afternoon. Her home dose is 25 mg daily. She is not experiencing any hypotension. I am not going to increase her hydrocortisone at this point. Blood sugars however are running in the low normal range I think is related to the fact she is on a controlled diet here in the hospital. Her doses of U 500 have been decreased from her usual doses at home (U500 70 units at breakfast and 40 units at lunch and dinner) and currently she is on U500 50 units at breakfast and 20 units at lunch and supper. Her glucose this a.m. was 130 and 160 at lunch. I think that her glucose will run higher once she is home as she will be back on her home diet. I will monitor overnight and make adjustments as needed. She does feel some fatigue but attributes this to her back pain from her metastatic disease. (7) Obstructive sleep apnea: Status: Chronic Assessment and plan: Continue O2 HS. (8) History of pulmonary embolism: Status: Acute Assessment and plan: Continue eliquis as recommended by hematology, despite her weight. (9) Discharge planning issues: Status: Acute Assessment and plan: DNR/DNI Probable discharge in the morning Subjective Subjective Interval history since last seen: Overall the patient continues to improve. She denies any shortness of breath or cough or sputum production. She has no fever. She still has a urinary catheter in place. Her can have that removed today. I will have the nurse recheck her urine culture and urinalysis. Today is day 7 of ceftriaxone. Once this is completed we will discontinue antibiotics and discharge her home. I repeat her chest x-ray today and there is no acute pulmonary process. I doubt that she ever had a pneumonia to begin with. Exam Narrative Exam Narrative: Obese female lying in bed in no acute distress. She is alert and oriented person place time circumstance. Lungs are clear to auscultation. Heart regular rate and rhythm without murmur rub or gallop. Abdomen is obese soft and nontender with no guarding or rebound tenderness she has normal active bowel sounds. Mendoza catheter is draining clear yellow urine. Lower extremities without peripheral cyanosis or calf tenderness. She has chronic bilateral leg edema. Objective Objective Clinical Data: Vital Signs Temperature 36.5 C 07/31/19 11:10 Temperature Source Tympanic 07/31/19 11:10 Pulse 72 07/31/19 11:10 Pulse Rhythm Regular 07/31/19 10:32 Pulse 94 H 07/25/19 17:47 Respiratory Rate 18 07/31/19 11:10 Respiratory Effort Non-Labored 07/31/19 10:32 Respiratory Depth Normal 07/31/19 10:32 Respiratory Pattern Normal 07/31/19 10:32 Blood Pressure 134/79 07/31/19 11:10 Blood Pressure Mean 95 07/25/19 17:47 Blood Pressure Position Supine 07/25/19 17:02 Pulse Oximetry 94 L 07/31/19 11:10 Oxygen Delivery Method Room Air 07/31/19 11:10 Oxygen Flow Rate 0 07/31/19 11:10 Pain Level 8 07/31/19 14:24 Intake & Output 07/30/19 07/31/19 07/31/19 23:59 11:59 23:59 Intake Total 530 / 1770 200 / 440 240 / 440 Output Total 1974 1050 / 1650 600 / 1650 Balance -95 / -205 -850 / -1210 -360 / -1210 Weight 145 kg Intake: IV 50 / 1050 Oral 480 / 720 200 / 440 240 / 440 Output: Urine 1974 1050 / 1650 600 / 1650 Other: Urine Color Yellow Yellow Yellow Urine Appearance Clear Clear Clear Stool Size Smear Stool Characteristics Soft Laboratory Results WBC 4.78 k/cumm (4.4-10.8) 07/28/19 06:10 RBC 2.97 m/cumm (4.00-5.20) L 07/28/19 06:10 Hgb 8.9 g/dL (12.0-15.5) L 07/28/19 06:10 Hct 27.2 % (36.0-46.0) L 07/28/19 06:10 MCV 91.6 fL (80-95) 07/28/19 06:10 MCH 30.0 pg (27.0-33.0) 07/28/19 06:10 MCHC 32.7 g/dL (32.0-36.0) 07/28/19 06:10 RDW 15.8 % (11.7-14.6) H 07/28/19 06:10 Plt Count 236 x1000/uL (130-400) 07/28/19 06:10 MPV 9.0 fL (8.0-11.0) 07/28/19 06:10 Immature Gran % 0.2 % 07/28/19 06:10 Neutrophils % 59.3 07/28/19 06:10 Lymphocytes % 34.3 07/28/19 06:10 Monocytes % 5.6 07/28/19 06:10 Eosinophils % 0.6 07/28/19 06:10 Basophils % 0.0 07/28/19 06:10 Absolute Neutrophils 2.83 k/cumm (1.2-6.7) 07/28/19 06:10 Absolute Lymphocytes 1.64 k/cumm (1.2-3.4) 07/28/19 06:10 Absolute Monocytes 0.27 k/cumm (0.11-0.7) 07/28/19 06:10 Absolute Eosinophils 0.03 k/cumm (0.0-0.7) 07/28/19 06:10 Absolute Basophils 0.00 k/cumm (0.0-0.2) 07/28/19 06:10 Differential Comment Rbc morph reviewed 07/27/19 06:20 RBC Morphology See below 07/27/19 06:20 Polychromasia Present 07/27/19 06:20 Anisocytosis 1+ 07/27/19 06:20 Sodium 135 mmol/L (136-145) L 07/28/19 06:10 Potassium 3.9 mmol/L (3.5-5.1) 07/28/19 06:10 Chloride 101 mmol/L (98-107) 07/28/19 06:10 Carbon Dioxide 26.2 mmol/L (21.0-32.0) 07/28/19 06:10 Anion Gap 7.8 mmol/L (3-11) 07/28/19 06:10 BUN 20 mg/dL (7-18) H 07/28/19 06:10 Creatinine 1.10 mg/dL (0.55-1.02) H 07/28/19 06:10 Estimated GFR/1.73 m2 50.67 (mL/min/1.73m2) 07/28/19 06:10 Glucose 93 mg/dL (74-106) D 07/28/19 06:10 Calcium 8.3 mg/dL (8.5-10.1) L 07/28/19 06:10 Magnesium 1.8 mg/dL (1.8-2.4) 07/28/19 06:10 Total Bilirubin 0.6 mg/dL (0.2-1.0) 07/26/19 06:30 AST 26 U/L (15-37) 07/26/19 06:30 ALT 14 U/L (14-59) 07/26/19 06:30 Alkaline Phosphatase 99 U/L (46-116) 07/26/19 06:30 Total Protein 7.5 g/dL (6.4-8.2) 07/26/19 06:30 Albumin 2.7 g/dL (3.4-5.0) L 07/26/19 06:30 TSH 0.06 uIU/mL (0.36-3.74) L 07/25/19 17:11 Free T4 1.07 ng/dL (0.76-1.46) 07/26/19 06:30 Urine Color Cancelled 07/26/19 01:18 Urine Clarity Cancelled 07/26/19 01:18 Urine pH Cancelled 07/26/19 01:18 Ur Specific [place] Cancelled 07/26/19 01:18 Urine Protein Cancelled 07/26/19 01:18 Urine Ketones Cancelled 07/26/19 01:18 Urine Blood Cancelled 07/26/19 01:18 Urine Nitrite Cancelled 07/26/19 01:18 Urine Bilirubin Cancelled 07/26/19 01:18 Urine Urobilinogen Cancelled 07/26/19 01:18 Ur Leukocyte Esterase Cancelled 07/26/19 01:18 Urine Glucose Cancelled 07/26/19 01:18 COVID-19 PCR Negative (Negative) 07/25/19 17:58 Nasopharyn COVID-19 PCR Not Applicable 07/25/19 17:58 Ref Test Perform Site [facility] 07/25/19 17:58
[2019-07-31 15:34] VITALS: BP 118/63; PULSE 72; RESP 21; TEMP 36.4; O2SAT 96
[2019-07-31] MEDS: cefTRIAXone 1 GM/50 ML BAG IVPB (17:02)
[2019-07-31 17:46] LABS: Bilirubin Negative (Negative); Blood Moderate (Negative); Clarity Clear (Clear); Glucose Negative (Negative); Ketones Negative (Negative); Leukocyte Esterase Trace (Negative); Nitrite Negative (Negative); Urobilinogen 0.2 EU/dL (Up TO 0.2); pH 5.5 (5-8)
[2019-07-31 18:00] LABS: Bacteria Rare HPF (Negative); C & S Indicated? Yes; Casts 0-2 Hyaline LPF (Negative); Crystals Negative HPF (Negative); Epithelial Cells Few HPF (Negative); Mucus Negative (Negative); Other Cells Few Transitional (Negative); RBC >50 HPF (0-2)
--- NOTE | 2019-07-31 18:21 | PDOC.CMPRO ---
Care Management Progress Note S/O: Candace continues to be closely monitored at this time. She continues to feel weak and was unable to engage with PT today due to fatigue. CM continues to follow. A: Candace is a 59 year old woman admitted to [facility] on 07/25/19 with pneumonia P: Candace will likely be discharged home with a resumption of home health services to include RN, PT. She will follow up with her oncologist, PCP and discharge plan. CM will continue to support patient, family and discharge planning concerns.
[2019-07-31] MEDS: DULoxetine 30 MG CAP 60 MG PO (21:22)
[2019-07-31 22:10] VITALS: O2SAT 95
[2019-07-31 23:30] VITALS: BP 143/72; PULSE 64; RESP 19; TEMP 36.4; O2SAT 97
[2019-08-01] MEDS: Levothyroxine 150 MCG TAB PO (06:02)
[2019-08-01] MEDS: Vancomycin 125 MG CAP PO (06:02)
[2019-08-01 06:53] LABS: Abs Immature Grans 0.03 k/cumm (0.0-0.09); Absolute Basophil Count 0.01 k/cumm (0.0-0.2); Absolute Eosinophil Count 0.12 k/cumm (0.0-0.7); Absolute Lymphocyte Count 1.78 k/cumm (1.2-3.4); Absolute Monocyte Count 0.38 k/cumm (0.11-0.7); Absolute Neutrophil Count 2.27 k/cumm (1.2-6.7); Basophils % 0.2; Eosinophils % 2.6; HCT 29.2 % (36.0-46.0); HGB 9.3 g/dL (12.0-15.5); Immature Grans % 0.7 %; Lymphocytes % 38.8; Mean Corp. HGB Concentration 31.8 g/dL (32.0-36.0); Mean Corpuscular Hemoglobin 29.9 pg (27.0-33.0); Mean Corpuscular Volume 93.9 fL (80-95); Monocytes % 8.3; Neutrophils % 49.4; Platelet Count 260 x1000/uL (130-400); RBC 3.11 m/cumm (4.00-5.20); RBC Distribution Width 16.7 % (11.7-14.6); White Blood Cell Count 4.59 k/cumm (4.4-10.8)
[2019-08-01 07:12] VITALS: BP 143/75; PULSE 68; RESP 19; TEMP 36.5; O2SAT 97
[2019-08-01 07:18] LABS: Anion Gap 7.6 mmol/L (3-11); BUN 20 mg/dL (7-18); CO2 27.4 mmol/L (21.0-32.0); CREATININE 1.06 mg/dL (0.55-1.02); Calcium 8.8 mg/dL (8.5-10.1); Chloride 102 mmol/L (98-107); Estimated GFR 52.88 (mL/min/1.73m2); Glucose 108 mg/dL (74-106); Potassium 3.9 mmol/L (3.5-5.1); Sodium 137 mmol/L (136-145)
[2019-08-01] MEDS: Hydrocortisone 10 MG TAB 30 MG PO (07:55)
[2019-08-01] MEDS: Loratidine 10 MG TAB PO (07:55)
[2019-08-01] MEDS: Ferrous Sulfate 325 MG TAB PO (07:55)
[2019-08-01] MEDS: Montelukast 10 MG TAB PO (07:55)
[2019-08-01] MEDS: Oxybutynin 5 MG TAB PO (07:55)
[2019-08-01] MEDS: Cyanocobalamin 500 MCG TAB 1000 MCG PO (07:55)
[2019-08-01] MEDS: Folic Acid 1 MG TAB PO (07:55)
[2019-08-01] MEDS: Apixaban 5 MG TAB PO (07:55)
[2019-08-01] MEDS: Omeprazole 20 MG CAPCR 40 MG PO (07:55)
[2019-08-01] MEDS: Pregabalin 100 MG CAP 200 MG PO (07:55)
[2019-08-01] MEDS: carBAMazepine 200 MG TAB PO (07:55)
[2019-08-01] MEDS: Acetaminophen 325 MG TAB PO (07:56)
[2019-08-01] MEDS: Normal Saline Flush 10 ML SYR IVP ×2 (08:02→11:19)
[2019-08-01] MEDS: Ipratropium/Albuterol 4 GM 120 PUFF INH IH (08:05)
[2019-08-01] MEDS: Budesonide/Formoterol 160/4.5 6 GM 60 PUFF INH IH (08:05)
--- NOTE | 2019-08-01 09:49 | PDOC.CMDIS ---
Care Management Discharge Reason for Hospitalization: Pneumonia, dehydration
--- NOTE | 2019-08-01 11:16 | W.PM.DS.N ---
Date of service: 08/01/19 Time of Service: 11:17 DS: Diagnosis Discharge Diagnosis (1) Pneumonia: Status: Resolved Asessment and Plan: Patient completed 7 days of Rocephin and 5 days of doxycycline. follow up CXR from 07/30 showed resolution of her L basilar infiltrate. She showed improved oxygenation w/ no daytime oxygen desaturation. She requires chronic home oxygen at night and whenever she sleeps d/t RAKAN and hypoventilation. (2) UTI (urinary tract infection): Status: Resolved Asessment and Plan: she completed adequate treatment (7 days of Rocephin) for simple UTI of E. coli. Repeat urine culture is pending from 07/30 which was taken from her catheter. Mendoza catheter has been removed on 07/30 and she is voiding freely w/out dysuria. Barium enema was performed to rule out rectal-vaginal fistula and none was found. (3) Acute dehydration: Status: Resolved Asessment and Plan: resolved w/ iv fluid hydration. (4) Stage IV breast cancer in female: Status: Chronic Asessment and Plan: follow up w/ Dr. Yary Walden (5) Adrenal insufficiency: Status: Chronic Asessment and Plan: patient was treated w/ stress dose iv hydrocortisone and then transitioned back to oral hydrocortisone but at increased dose of 30 mg qam and 10 mg q pm. This dose will need to be tapered over the next week by the patient's PCP. (6) Obstructive sleep apnea: Status: Chronic Asessment and Plan: continue home oxygen at 3 lpm while asleep. (7) History of pulmonary embolism: Status: Chronic Asessment and Plan: continue current dose of apixaban. I would recommend monitoring factor Xa levels to ensure that she is adequately anticoagulated. (8) C. difficile colitis: Status: Acute Asessment and Plan: stool for C diff screen including antigen and toxin were negative this admission. cont. current oral vancomycin taper and follow up with [facility] regarding fecal transplant (9) Diabetes mellitus: Status: Chronic Asessment and Plan: continue home dose of insulin. discuss management w/ your PCP. (10) Rectovaginal fistula: Status: Ruled-out Asessment and Plan: has been ruled out by normal barium enema (11) Discharge planning issues: Status: Resolved Asessment and Plan: discharge home w/ resumption of home health services including visiting nurse to treat skin wounds (superficial ulcerations of groin and gluteal folds from diarrhea) as well as monitoring of hydration/electrolytes, diabetes and adrenal insufficiency, monitor BP and oxygen levels. P.T. to assess and treat for generalized weakness and ambulatory dysfunction from acute and chronic illnesses. Discharge Plan Disposition Patient Disposition: HOME W/HOME HEALTH SERVICE Condition: Good Discharge Details Chief Complaint: SOB Clinical Impression: Pneumonia, SOB (shortness of breath) Reason For Visit: PNEUMONIA, DEHYDRATION, UTI Admit Date/Time: 07/25/19 17:53 Admit Provider: Robert Collado Attending Provider: Robert Collado Primary Care Provider: ANNA TORO ED Provider: Scarlett Jama Hospital Course Hospital Course: 59-year-old female with advanced breast cancer status post previous bilateral mastectomies now with bone metastasis, COPD, type 2 diabetes mellitus requiring insulin, dyslipidemia, morbid obesity, pulmonary embolism, recurrent C. difficile colitis who was admitted through the emergency department on 07/25/2019 after she was initially seen in the morning and diagnosed with pneumonia and treated with IV fluids and p.o. doxycycline. Patient had had symptoms of fatigue shortness of breath decreased oral intake for the last couple days. However she felt severe weakness and had a fever 102.9 and had near syncopal feeling at home and called EMS and was brought back to the emergency department. Patient is currently on tapering dose of vancomycin orally for recurrent C. difficile diarrhea. Blood and urine cultures were obtained and a chest x-ray had been obtained. Initial CBC failed to show a leukocytosis as her total white cell count was 5500. She has a stable chronic anemia with a hemoglobin 9.8 g hematocrit 30% normal platelet count 108,000. Chemistry panel on admission showed elevated creatinine 1.32 with a normal BUN of 14 and a glucose of 344 rest her electrolytes are unremarkable. Magnesium was 1.9. Blood cultures from 10/25/2019 eventually came back no growth. Urine culture came back positive for E. coli and stool for C. difficile screen was negative for antigen and toxin. The E. coli in her urine culture was pansensitive with the exception of nitrofurantoin for which there was an intermediate sensitivity. Patient was admitted to the hospital given IV fluids started on IV Rocephin and iv doxycycline. Doxycycline was continued from July 24 through July 29, 2019 and Rocephin was continued up through July 31, 2019. Repeat urinalysis was performed on the day prior to discharge and was taken from a Mendoza catheter specimen it showed 30 mg/dL of protein moderate amount of blood but was negative for nitrites but had a trace of leukocyte Estrace. Rare bacteria was seen. Repeat urine culture is pending at this time however is felt the patient had sufficient antibiotic coverage for both community-acquired pneumonia as well as simple cystitis. During her hospital stay there was concern that she may have rectovaginal fistula as the patient was found to be sitting in stool which was found in the opening to her vagina. Patient underwent a barium enema which showed complete integrity of the rectal wall and no fistula was seen. She complete her course of doxycycline and finished out her ceftriaxone the day prior to discharge. There is a said repeat urine culture is pending at this time however she has no fever and no urinary tract symptoms. Because of her history of C. difficile colitis it is felt that we should minimize the duration of her antibiotics to the least amount of time necessary. She had a repeat chest x-ray taken on the day prior to discharge and this showed resolution of the previously seen infiltrate. The initial x-ray diagnosis of a left basilar infiltrate was speculative as the left lung base was not well penetrated and the radiologist indicated that a left basilar infiltrate or small effusion could not be excluded however the repeat chest x-ray from July 31, 2019 was read as showing no acute pulmonary pathology. During her hospital stay she did require stress dose IV hydrocortisone which was then transition to oral hydrocortisone. Because of some transient low blood glucose readings her oral dose of hydrocortisone was increased. She will go home on a higher dose of hydrocortisone at 30 mg in the morning and 10 mg in the evening. Her PCP can taper her over the next week back to her home maintenance dose. Patient should follow-up with [facility] gastroenterology service regarding her recurrent C. difficile infections. At present time her stool was negative for both antigen and toxin. However the patient was under consideration for fecal transplant by [facility] gastroenterology. Patient should also follow-up with her all round logger/oncologist Dr. Vicente in [place], [place]. Home Meds and New Rx's Prescriptions: New hydrocortisone 10 mg Tablet 10 mg PO DAILY@1500 Qty: 0 RF: 0 Continued pregabalin [Lyrica] 200 MG capsule 200 mg PO TID RF: 0 montelukast [Singulair] 10 MG tablet 10 mg PO DAILY RF: 0 cyanocobalamin (vitamin B-12) [Vitamin B-12] 1,000 MCG tablet 1,000 mcg PO DAILY RF: 0 folic acid 1 MG tablet 1 mg PO DAILY RF: 0 Spiriva Respimat 4 GM mist 1 puff Inhalation DAILY RF: 0 budesonide-formoterol [Symbicort] 10.2 GM HFA aerosol inhaler 2 puff Inhalation BID RF: 0 ondansetron HCl [Zofran] 8 MG tablet 8 mg PO TID PRNRF: 0 levothyroxine 150 mcg Tablet 150 mcg PO DAILY RF: 0 Trulicity 1.5 mg/0.5 mL Pen Injector 1.5 mg SUBCUT QWEEK RF: 0 benzonatate 200 mg Capsule 200 mg PO TID PRN (Reason: cough) Qty: 15 RF: 0 fentanyl 50 mcg/hr patch 72 hour 1 patch TD Q72H Qty: 2 RF: 0 loratadine 10 mg Tablet 10 mg PO DAILY RF: 0 duloxetine [Cymbalta] 60 mg Capsule,Delayed Release(Dr/Ec) 60 mg PO HS RF: 0 letrozole 2.5 mg Tablet 2.5 mg PO DAILY RF: 0 hydrocodone-acetaminophen 5-325 mg Tablet 2 tab PO Q4H PRN PRNQty: 5 RF: 0 vancomycin [Vancocin] 125 mg capsule 125 mg PO .Q2-3D Qty: 16 RF: 0 omeprazole 40 mg Capsule,Delayed Release(Dr/Ec) 40 mg PO DAILY RF: 0 carbamazepine [Tegretol XR] 200 mg Tablet Extended Release 12 Hr 200 mg PO BID RF: 0 ferrous sulfate 325 mg (65 mg iron) Tablet 325 mg PO DAILY RF: 0 Verzenio 150 mg Tablet 150 mg PO BID RF: 0 oxybutynin chloride 5 mg Tablet 5 mg PO TID RF: 0 cranberry 450 mg Tablet 450 mg PO DAILY RF: 0 Narcan 4 mg/actuation Center [place],Non-Aerosol 1 spray INTRANASAL PRN PRNRF: 0 Glucagon (HCl) Emergency Kit 1 mg Recon Soln 1 mg PRN PRNRF: 0 Eliquis 5 mg tablet 5 mg PO BID RF: 0 guaifenesin [Mucinex] 600 mg tablet extended release 12hr 600 mg PO BID PRNRF: 0 Humulin R U-500 (Conc) Kwikpen 500 unit/mL (3 mL) insulin pen 40 unit SUBCUT QNOON RF: 0 Humulin R U-500 (Conc) Kwikpen 500 unit/mL (3 mL) insulin pen 40 unit SUBCUT QPM RF: 0 Humulin R U-500 (Conc) Kwikpen 500 unit/mL (3 mL) insulin pen 70 unit SUBCUT QAM RF: 0 Changed hydrocortisone 5 mg Tablet 30 mg PO DAILY Qty: 0 RF: 0 Lactobacillus acidophilus Capsule 1,000 mmu cells PO BID Qty: 30 RF: 0 Discontinued Cholestyramine Light 4 gram Powder 4 g PO BID PRNRF: 0 No Action Lactobacillus acidophilus [Acidophilus] Capsule 1 cap DAILY RF: 0 Discharge Instructions Instructions: Dehydration (DC), Urinary Tract Infection in Women (DC), C Diff (Clostridium Difficile) Infection (DC), Bacterial Pneumonia (DC) Stand Alone Forms: Nursing Discharge Form Referrals: ANNA TORO [Primary Care Provider] - (call the office tomorrow for follow up appointment in the next week) Activity:: Activity as Tolerated Equipment/Supplies:: No Equipment Needed Diet:: Carb Counting Discharge Orders Discharge Orders: Discharge Order (Routine); Ordered 08/01/19 Ordered By: Luke Huynh Discharge Data Discharge Date/Time-TO BE ENTERED AT DEPARTURE: 08/01/19 11:48 DS: Summary Status at Discharge Functional status at discharge: uses cane/walker Overall status at discharge: patient is progressing back to baseline Mental Status: mental status grossly normal Speech and Movement: speech and movement normal Mood: congruent mood Affect: normal affect Time Spent with Patient providing and/or coordinating discharge services: Greater than 30 minutes Exam Narrative Exam Narrative: Obese female lying in bed in no acute distress. She is alert and oriented person place time circumstance. Lungs are clear to auscultation. Heart regular rate and rhythm without murmur rub or gallop. Abdomen is obese soft and nontender with no guarding or rebound tenderness she has normal active bowel sounds. Lower extremities without peripheral cyanosis or calf tenderness. She has chronic bilateral leg edema. Psych Mental Status: mental status grossly normal Speech and Movement: speech and movement normal Mood: congruent mood Affect: normal affect DS: Data Vitals/I&O Vitals and I&O: Vital Signs Temperature 36.5 C 08/01/19 07:12 Temperature Source Tympanic 08/01/19 07:12 Pulse 68 08/01/19 07:12 Pulse Rhythm Regular 08/01/19 09:32 Pulse 94 H 07/25/19 17:47 Respiratory Rate 19 08/01/19 07:12 Respiratory Effort Non-Labored 08/01/19 09:32 Respiratory Depth Normal 08/01/19 09:32 Respiratory Pattern Normal 08/01/19 09:32 Blood Pressure 143/75 H 08/01/19 07:12 Blood Pressure Mean 95 07/25/19 17:47 Blood Pressure Position Supine 07/25/19 17:02 Pulse Oximetry 97 08/01/19 07:12 Oxygen Delivery Method Room Air 08/01/19 07:12 Oxygen Flow Rate 0 08/01/19 07:12 Pain Level 9 08/01/19 07:56 Intake & Output 07/31/19 07/31/19 08/01/19 11:59 23:59 11:59 Intake Total 300 / 550 250 / 550 Output Total 1050 / 1950 900 / 1950 Balance -750 / -1400 -650 / -1400 Weight 145 kg 152 kg Intake: IV Oral 300 / 540 240 / 540 Output: Urine 1050 / 1950 900 / 1950 Other: Urine Color Yellow Pale Yellow Yellow Urine Appearance Clear Clear Clear Cloudy Urine Odor None Normal Comment via F/C urine mixed with stool Stool Size Moderate Large Stool Characteristics Soft Soft Liquid Formed Brown Brown Black Voiding Methods Incontinent Bedside Commode Data Completed and Pending Labs on day of discharge: Labs from last 24 hours 08/01/19 08/01/19 07/31/19 06:25 06:25 17:21 WBC 4.59 RBC 3.11 L Hgb 9.3 L Hct 29.2 L MCV 93.9 MCH 29.9 MCHC 31.8 L RDW 16.7 H Plt Count 260 MPV 9.0 Immature Gran % 0.7 Neutrophils % 49.4 Lymphocytes % 38.8 Monocytes % 8.3 Eosinophils % 2.6 Basophils % 0.2 Absolute Neutrophils 2.27 Absolute Lymphocytes 1.78 Absolute Monocytes 0.38 Absolute Eosinophils 0.12 Absolute Basophils 0.01 Sodium 137 Potassium 3.9 Chloride 102 Carbon Dioxide 27.4 Anion Gap 7.6 BUN 20 H Creatinine 1.06 H Estimated GFR/1.73 m2 52.88 Glucose 108 H Calcium 8.8 Urine Color Yellow Urine Clarity Clear Urine pH 5.5 Ur Specific [place] 1.020 Urine Protein 30 H Urine Ketones Negative Urine Blood Moderate H Urine Nitrite Negative Urine Bilirubin Negative Urine Urobilinogen 0.2 Ur Leukocyte Esterase Trace H Urine RBC >50 H Urine WBC 5-10 Ur Epithelial Cells Few Urine Crystals Negative Urine Bacteria Rare Urine Casts 0-2 hyaline Urine Mucus Negative Urine Other Few transitional Ur Culture Indicated? Yes Urine Glucose Negative 07/31/19 17:21 Urine - Reflex from Urine Culture - Pending Preliminary micro results at discharge 07/31/19 17:21 Urine Culture - Pending Urine - Reflex from [facility] Medical History C. difficile diarrhea (Acute) Cancer related pain (Chronic) much improved with fentanyl patch Carpal tunnel syndrome (Acute) Chronic adrenal insufficiency (Acute) Chronic pain (Chronic) Chronic respiratory failure with hypoxia (Chronic) Chronic venous stasis dermatitis (Chronic) COPD (chronic obstructive pulmonary disease) (Chronic) On nocturnal oxygen - 2L prn Depression (Chronic) Diabetes mellitus (Chronic) Insulin dependent Diverticulosis (Acute) Dyslipidemia (Chronic) Goals of care, counseling/discussion (Acute) History of breast cancer (Chronic) metastatic, with lymphatic spread and bone mets Hyperlipidemia (Acute) Hypopituitarism (Chronic) Hypothyroidism (Chronic) Influenza B (Acute) Iron deficiency anemia (Acute) Metastatic breast cancer (Chronic) Obesity (Chronic) Obstructive sleep apnea (Chronic) per [facility] records Palliative care patient (Chronic) Pneumonia (Acute) POLST (Physician Orders for Life-Sustaining Treatment) (Acute) done 03/26/19; sent to [facility], [facility], [facility], original to her Restless leg syndrome (Acute) Spinal stenosis (Acute) Stage IV breast cancer in female (Chronic) Uncontrolled pain (Resolved) Surgical History H/O bilateral mastectomy (Acute) H/O colonoscopy with polypectomy (Acute) History of carpal tunnel release of both wrists (Acute) Port-A-Cath in place (Acute) Status post transsphenoidal pituitary resection (Acute) Family History Father , age 83 from complications of diabetes Prostate cancer Diabetes Mother , age 79 from complications of Crohn's disease and colitis Crohn's disease Colitis Daughter No problems noted. Daughter No problems noted. Brother No problems noted. Sister Diabetes Obesity Sister No problems noted. Sister No problems noted. Sister No problems noted. Social History Smoking/Tobacco Use Status: Former Tobacco Use Alcohol Intake: never Drug use: Never Substance use type: does not use Caregiver/Support person: Yes Household members: children Number of Children: 2 Communication Needs: Hard of Hearing and Corrective Lenses Education Level: middle school Do you need help understanding health information?: Always current occupation: on disability What is your relationship status?: How often do you talk on the phone with friends or family?: once per week How often do you get together with friends or relatives?: three or more times per week Panel score (0-1 are the most socially isolated patients): 1 What type of physical activity do you participate in: none, sedentary lifestyle, wheelchair-bound and additional Details: needs a new wheelchair, cannot walk far, just a few steps Special pedro pablo needs: No Do you feel safe at home: Yes Do you feel safe in your relationship?: Yes Additional Social history: , with 2 children. She is not working and on disability. Has a history of tobacco, quit in 1992. Reports rare use of alcohol only. Lives with daughter. Uses a walker to ambulate. Hard to do recently, depending more on WC. In a lot of pain. Recent scans show progression of breast cancer.
[2019-08-01] MEDS: Heparin 500 UNITS/5 ML SYRINGE IVP (11:19)
--- NOTE | 2019-08-01 11:30 | PDOC.CMDIS ---
LACE Index Scoring Tool - Questions: Length of Stay (in days): 7 - 13 Acuity (Admit via E.D.?): Yes Comorbidities: Diabetes w/o Complication, Chronic Pulmonary Disease, Mild Liver/Renal Disease, Metastatic Solid Tumor E.D. Visits: 9 - Answers: Total Score: 17 Risk of Readmission: High Risk Care Management Discharge Reason for Hospitalization: Pneumonia, dehydration Discharge Plan: Candace will discharged home with new orders for [facility]: RN, PT. CM faxed orders and clinical information to [facility]. Candace will follow up with her oncologist, PCP and discharge plan. Candace will transport via private vehicle with her daughter. Patient/Family Education Needs: Review discharge instructions, discuss Ask Me Three. Services Needed at Discharge: Home Health Care Services
--- NOTE | 2019-08-01 11:35 | PDOC.HHF2F ---
Home Health Certification Home Health Certification: 1. Encounter Date and Reason I certify that LITO GONZALEZ was seen by Luke Huynh on 08/01/19 and that I had a [id number] encounter with this patient that meets the physician face to face encounter requirements. 2. Clinical Findings Supporting Skilled Need and Homebound Status I certify that home health services are medically necessary, include either intermittent intermediate and/or physical/speech therapy, and that this patient is homebound in that absences from the home require considerable and taxing effort and are infrequent or of short duration, or are attributable to the need to receive medical care. [X] (a) Attached documentation from encounter provides clinical findings supporting skilled need and homebound status (including what assistance patient requires to leave the home). The encounter with the patient was in whole, or in part, for the following medical condition, which is the primary reason for home health care: PNEUMONIA, DEHYDRATION, UTI Mcc: Patient needs home intermediate to monitor/treat and prevent dehydration, medication managment and wound care for superficial skin ulcerations d/t chronic diarrhea; also to obtain blood work for monitoring of anemia, electrolytes and renal function. Monitor blood pressures and monitor of her diabetes. Physical Therapy: to evaluate and treat for deconditioning and generalized weakness related to her acute hospitalization for pneumonia, UTI and diarrhea and dehydration and her chronic illness from metastatic breast cancer and adrenal insufficiency. Work on independent ambulation, strength exericises and work towards independent peformance of ADL Speech Therapy: Homebound: due to severity of her weakness from her acute and chronic illnesses, puts her at risk for further injury or illness with any unnecessary travel outside of her home 3. Certification and Authentication I certify that I composed the above information based on my clinical judgement relating to this patient's medical condition and, if applicable, clinical findings communicated to me by the NPP or inpatient physician who performed the Home Health Referral. All further orders will be obtained through __Nurys Martinez (Community Based Physician - PCP)
--- NOTE | 2019-08-02 08:33 | PT.INDS ---
Date of service: 08/02/19 PT Notes Visit Reasons: PNEUMONIA, DEHYDRATION, UTI Inpatient Physical Therapy Discharge Summary Dates: 08/02/2019 Dates of Service: 07/28/2019 through 07/30/2019 This is a clinical summary of care provided on the duration of dates listed above. No charge was made in the completion of this documentation. Referring Doctor: Sheyla Reno MD PT Orders: PT CONSULT: Limited ability Precautions: Fall. Standard. Activity as tolerated. Patient Profile/Admitting Diagnosis: Candace is a 59-year-old female who presented to the ED on 07/25/2019 with chief complaints of SOB and generalized body malaise worsened for the past 1 to 1-1/2 days prior to admission. Patient is diagnosed with pneumonia, UTI, and acute dehydration with referral for skilled physical therapy services in order to address resulting impairments in mobility performance. PMHX: Medical History (Updated 07/26/19 @ 02:12 by Robert Collado) C. difficile diarrhea (Acute) Cancer related pain (Chronic) Carpal tunnel syndrome (Acute) Chronic adrenal insufficiency (Acute) Chronic pain (Chronic) Chronic respiratory failure with hypoxia (Chronic) Chronic venous stasis dermatitis (Chronic) COPD (chronic obstructive pulmonary disease) (Chronic) On nocturnal oxygen - 2L prn Depression (Chronic) Diabetes mellitus (Chronic) Insulin dependent Diverticulosis (Acute) Dyslipidemia (Chronic) Goals of care, counseling/discussion (Acute) History of breast cancer (Chronic) metastatic, with lymphatic spread and bone mets Hyperlipidemia (Acute) Hypopituitarism (Chronic) Hypothyroidism (Chronic) Influenza B (Acute) Iron deficiency anemia (Acute) Metastatic breast cancer (Chronic) Obesity (Chronic) Obstructive sleep apnea (Chronic) per [facility] [place] [facility] records Palliative care patient (Chronic) Pneumonia (Acute) hospitalized once they come homeocial History/Home Situation: POLST (Physician Orders for Life-Sustaining Treatment) (Acute) done 03/26/19; sent to [facility], [facility], original to her Restless leg syndrome (Acute) Spinal stenosis (Acute) Stage IV breast cancer in female (Chronic) Uncontrolled pain (Resolved) Surgical History H/O bilateral mastectomy (Acute) H/O colonoscopy with polypectomy (Acute) History of carpal tunnel release of both wrists (Acute) Port-A-Cath in place (Acute) Status post transsphenoidal pituitary resection (Acute) Social History/Home Situation: Candace lives with her daughter in [place], [place] in a two-story house with a ramp to enter with rails on both sides. Patient has stairs to the second floor of the house but has everything she needs on the first floor. She is disabled. She has 2 daughters locally. She receives choices for care highest needs, and her daughter Kiki is her primary provider for 12 years now. Kiki's provides assistance with bathing and does meal preapration and assistance with lower body dressing. She was independent with front-wheeled walker for in-house ambulation and uses the 4-wheeled walker for outdoor ambulation. She has to walk about 80-90 feet to get to her car. She is dependent on her daughter for transportation to and from appointments. Daughter also provides assistance with bathing patient's back due to body habitus. Equipment Owned/DME: Bariatric FWW, bariatric hospital bed, bariatric recliner, bariatric front wheeled walker, new bariatric wheelchair with seat and back cushions Subjective: NT Objective: General Observation: NT Mental Status: NT Pain: NT ROM: Right Upper Extremity: Shoulder flexion 90-100 degrees. Elbow flexion WFL. Hands/wrist and fingers are WFL. Left Upper Extremity: Shoulder flexion 90-100 degrees. Elbow flexion WFL. Hands/wrist and fingers are WFL. Right Lower Extremity: Patient is able to bend hip to about 20 degrees beyond 90 while seated at edge of bed. Knee flexion WFL. Dorsiflexion/plantarflexion WFL. Left Lower Extremity: Patient is able to bend hip to about 10 degrees beyond 90 while seated at edge of bed. Knee flexion WFL. Dorsiflexion/plantarflexion WFL. Strength: Right Upper Extremity: Shoulder flexion 3-/5. Elbow flexion 4/5. [employer] strong and functional Left Upper Extremity: Shoulder flexion 3-/5. Elbow flexion 4/5. [employer] Operator strong and functional. Right Lower Extremity: Hip flexion 3-/5. Hip extension 3/5. Knee flexion 4/-5. Knee extension 4-/5. Ankle dorsiflexion/plantarflexion 4/5. Left Lower Extremity: Hip flexion 3-/5. Hip extension 3/5. Knee flexion 4-/5. Knee extension 4-/5. Ankle dorsiflexion/plantarflexion 4/5. Bed Mobility/Transfers: Supine to sit minimal assist with HOB elevated to 30 degrees Sit to supine minimal assist Sit to stand minimal assist Stand to sit minimal assist with use of BUE for support, requires front wheeled walker Bed to chair minimal assist with use of BUE for support, requires front wheeled walker Chair to bed minimal assist with use of BUE for support, requires front wheeled walker Gait: Patient is able to tolerate up to 40 feet of level surface ambulation but requires front wheeled walker and wheelchair follow and contact-guard assist for safety with moderate breathlessness seen at the end of activity. Decreased julia. Balance: Static Sitting: NT Dynamic Sitting: NT Static Standing: NT Dynamic Standing: NT Assessment: Candace is a 59-year-old female who presented to the ED on 07/25/2019 with chief complaints of SOB and generalized body malaise that worsened for the past 1 to 1-1/2 days prior to admission. Patient is diagnosed with pneumonia, UTI, and acute dehydration with referral for skilled physical therapy services in order to address resulting impairments in mobility performance. She will continue to benefit from skilled PT services to facilitate a smooth transition to home. PT goals will be aimed at addressing the following impairment level findings: 1. Decreased range of motion for hip and knees bilaterally 2. Impaired strength to B LE 3. Impaired activity tolerance 4. Decreased balance skills 5. Pain on B hips Impairments are contributing to the following functional limitations: 1. Increased risk for falls due to balance impairments 2. Limited ambulation distance 3. Need for assistive device for all mobility ADL performance 4. Increased fall risk 5. Dependent bed mobility 6. Inability to perform transfer activities due to pain on both in both hips Goals: Goals X 1 week 1. Supine-Sit minimal assist MET 2. Sit-Supine minimal assist MET 3. Sit-Stand minimal assist NOT MET 4. Stand-Sit minimal assist NOT MET 5. Bed-Chair minimal assist NOT MET 6. Chair-Bed minimal assist NOT MET 7. Indoor ambulation using FWW for at least 50 feet NOT MET 8. Independent with home exercise program NOT MET 9. Static/dynamic standing balance/tolerance good NOT MET DISCHARGE RECOMMENDATIONS: Patient will benefit from home health PT services in order to progress mobility level using four-wheeled walker, assess home safety, identify additional equipment needs, and cotninue with a functional maintenance program that will increase ability of patient to remain at home with daughter. TREATMENT CODE/TIME: NC. Thank you very much for this referral. Allie Miguel PT, DPT, CLT [facility] Inpatient PT at [place], [place]
== END 2019-08-01 11:48 | disposition home health service (06) | DRG 194 ==
LOC: ER 18:36 → MS 18:42
PROVIDERS: Internal Medicine; Admitting Provider Family Medicine; Emergency Provider Physician Assistant; PCP Nurse Practitioner Family; Visit Provider Internal Medicine
DX: J18.9 Pneumonia, unspecified organism (principal); N39.0 Urinary tract infection, site not specified; E27.40 Unspecified adrenocortical insufficiency; A04.71 Enterocolitis due to Clostridium difficile, recurrent; C79.51 Secondary malignant neoplasm of bone; Z68.42 Body mass index [BMI] 45.0-49.9, adult; B96.20 Unspecified Escherichia coli [E. coli] as the cause of diseases classified elsewhere; E86.0 Dehydration; G47.33 Obstructive sleep apnea (adult) (pediatric); G47.36 Sleep related hypoventilation in conditions classified elsewhere; C50.919 Malignant neoplasm of unspecified site of unspecified female breast; Z79.01 Long term (current) use of anticoagulants; Z86.711 Personal history of pulmonary embolism; E11.649 Type 2 diabetes mellitus with hypoglycemia without coma; Z79.4 Long term (current) use of insulin; L98.411 Non-pressure chronic ulcer of buttock limited to breakdown of skin; L98.491 Non-pressure chronic ulcer of skin of other sites limited to breakdown of skin; R53.1 Weakness; R26.2 Difficulty in walking, not elsewhere classified; J44.9 Chronic obstructive pulmonary disease, unspecified; E78.5 Hyperlipidemia, unspecified; E66.01 Morbid (severe) obesity due to excess calories; D50.9 Iron deficiency anemia, unspecified; F32.9 Major depressive disorder, single episode, unspecified; Z45.2 Encounter for adjustment and management of vascular access device; E03.9 Hypothyroidism, unspecified; Z03.818 Encounter for observation for suspected exposure to other biological agents ruled out; Z79.899 Other long term (current) drug therapy; Z51.5 Encounter for palliative care; Z71.3 Dietary counseling and surveillance; Z66 Do not resuscitate
CPT/HCPCS: 36415; 80048; 80053; 85027; 87040; 87077; 93005; 94640; 96360; 97163; 97530; 99223; 99232; 99233; 99239; 99255; 99284; 99285; U0003; 71045; 74270; 81003; 81015; 83735; 84439; 84443; 85025; 87086; 87186; 87324; 93010; J0696; J1720; J3490; J7042; Q9967

== ENCOUNTER 2019-08-10 12:17 | Inpatient (IN) | payer MEDICARE, MEDICAID, SELFPAY ==
[2019-08-10] VITALS (41 sets, daily range): BP systolic 103–145; BP diastolic 52–88; PULSE 83–105; RESP 15–23; TEMP 36.6–37; O2SAT 91–98
[2019-08-10] MEDS: Normal Saline Flush 10 ML SYR IVP (12:40)
[2019-08-10] MEDS: Normal Saline 1,000 ML 125 ML IV ×2 (12:45→21:40)
[2019-08-10 13:01] LABS: Abs Immature Grans 0.01 k/cumm (0.0-0.09); Absolute Basophil Count 0.01 k/cumm (0.0-0.2); Absolute Eosinophil Count 0.05 k/cumm (0.0-0.7); Absolute Lymphocyte Count 0.77 k/cumm (1.2-3.4); Absolute Monocyte Count 0.25 k/cumm (0.11-0.7); Absolute Neutrophil Count 3.91 k/cumm (1.2-6.7); Basophils % 0.2; HCT 30.2 % (36.0-46.0); HGB 9.3 g/dL (12.0-15.5); Immature Grans % 0.2 %; Lymphocytes % 15.4; Mean Corp. HGB Concentration 30.8 g/dL (32.0-36.0); Mean Corpuscular Hemoglobin 29.4 pg (27.0-33.0); Mean Corpuscular Volume 95.6 fL (80-95); Mean Platelet Volume 9.4 fL (8.0-11.0); Neutrophils % 78.2; Platelet Count 246 x1000/uL (130-400); RBC 3.16 m/cumm (4.00-5.20); RBC Distribution Width 16.4 % (11.7-14.6)
[2019-08-10 13:13] LABS: ALT 22 U/L (14-59); AST 62 U/L (15-37); Albumin 3.1 g/dL (3.4-5.0); Alkaline Phosphatase 162 U/L (46-116); BUN 25 mg/dL (7-18); Bilirubin, Total 0.4 mg/dL (0.2-1.0); CREATININE 1.53 mg/dL (0.55-1.02); Calcium 9.3 mg/dL (8.5-10.1); Chloride 101 mmol/L (98-107); Estimated GFR 34.62 (mL/min/1.73m2); Glucose 320 mg/dL (74-106); Lipase 56 U/L (73-393); Magnesium 1.8 mg/dL (1.8-2.4); Potassium 4.5 mmol/L (3.5-5.1); Sodium 135 mmol/L (136-145); Total Protein 7.7 g/dL (6.4-8.2)
[2019-08-10 13:26] LABS: Bilirubin Negative (Negative); Blood Small (Negative); Clarity Clear (Clear); Glucose 100 mg/dL (Negative); Ketones Trace mg/dL (Negative); Leukocyte Esterase Negative (Negative); Nitrite Negative (Negative); Urobilinogen 0.2 EU/dL (Up TO 0.2); pH 5.5 (5-8)
--- NOTE | 2019-08-10 13:35 | W.ED.GENAD ---
Discharge Plan Disposition Patient Disposition: [facility] INPATIENT Condition: Stable Discharge Details Chief Complaint: Abd Prob Clinical Impression: C. difficile colitis, Intractable diarrhea Admit Date/Time: 08/10/19 16:37 Admit Provider: Sheyla Reno Attending Provider: Sheyla Reno Primary Care Provider: ANNA TORO ED Provider: Kenia Melgoza Medical Decision Making <Kenia Melgoza - Last Filed: 08/10/19 17:01> 59-year-old female presents with abdominal pain diarrhea. She does have a history of C. difficile, obesity, diabetes mellitus, COPD, breast cancer with bilateral mastectomy, in place Port-A-Cath, hyponatremia, pneumonia, UTI.. She was on vancomycin for approximately 8 weeks in May was recently admitted to the hospital with pneumonia and UTI and discharged on 08/05/2019. She reports diarrhea began Friday night after eating a questionable meal. She has generalized abdominal pain associated with this complaint. 1338: Patient did have an episode of diarrhea while in department, she does state that she continued to have diarrhea for the last 4 days. Associated with abdominal pain and bloating. At this time work-up is ordered including CBC, CMP, lipase, urinalysis, BUN and creatinine are slightly elevated from previous results but are also largely within baseline. Glucose is 320 upon initial presentation. 1425: Patient requesting hydrocodone is complaining of pain low back pain, which is chronic. Hydrocodone/acetaminophen 1 tablet p.o. given. 1555: Spoke with radiologist Dr. Abdi regarding CT result, nothing acute, no diverticulitis no small bowel obstruction. There is some diverticula. On patient reevaluation she is still complaining of abdominal pain, shared decision making discussed with patient versus for admission for pending C. difficile work-up and diarrhea. Versus discharge home. At this time patient does live with her daughter does not feel safe going home at this time due to constant diarrhea, wearing a depends. Patient has received 1 L normal saline at 125 mL an hour, Zofran 4 mg IV, hydrocodone Tylenol 1 tablet p.o. She is hyponatremic at a level of 135,, slightly anemic, labs are largely within patient's baseline. 1608: Hospitalist paged for possible admission, for irretractable diarrhea and positive C. difficile diarrhea. 1625: Spoke with Dr. Reno regarding patient who with whom she is aware of. She states that per the GI note, patient is on fecal transplant list and may need a different medication than vancomycin and is calling pharmacy to see if we carry that medication and will call back. 1652: Spoke with patients daughter who reports that patient has been off vancomycin for approximately 1 month but this is questionable. She states the patient has to be off any antibiotics for approximately 1 month in order to qualify for fecal transplant. Patient sees Dr. Luda Thompson with gastroenterology at [facility]. 1701: Patient to be admitted for C. difficile colitis.. <MARYSOL Patton - Last Filed: 08/10/19 18:38> Name entered in error, I did not see the patient. HPI <Kenia Melgoza - Last Filed: 08/10/19 17:01> General Date/Time Provider Initiated Documentation: 08/10/19 12:34. Limitations to Documentation: physical limitation. Information obtained by: patient. HPI Narrative: 59-year-old female presents with abdominal pain diarrhea. She does have a history of C. difficile, obesity, diabetes mellitus, COPD, breast cancer with bilateral mastectomy, in place Port-A-Cath, hyponatremia, pneumonia, UTI.. She was on vancomycin for approximately 8 weeks in May was recently admitted to the hospital with pneumonia and UTI and discharged on 08/05/2019. She reports diarrhea began Friday night after eating a questionable meal. She has generalized abdominal pain associated with this complaint. Related Data Home Medications Medication Instructions Recorded Confirmed Spiriva Respimat 1 puff INHALATION DAILY 04/03/17 08/10/19 budesonide-formoterol [Symbicort] 2 puff INHALATION BID 04/03/17 08/10/19 cyanocobalamin (vitamin B-12) 1,000 mcg PO DAILY 04/03/17 08/10/19 [Vitamin B-12] folic acid 1 mg PO DAILY 04/03/17 08/10/19 montelukast [Singulair] 10 mg PO DAILY 04/03/17 08/10/19 ondansetron HCl [Zofran] 8 mg PO TID PRN 04/03/17 08/10/19 pregabalin [Lyrica] 200 mg PO TID 04/03/17 08/10/19 Trulicity 1.5 mg SUBCUT QWEEK 05/06/18 08/10/19 levothyroxine 150 mcg PO DAILY 05/06/18 08/10/19 benzonatate 200 mg PO TID PRN #15 cap 05/10/18 08/10/19 duloxetine [Cymbalta] 60 mg PO HS 02/02/19 08/10/19 loratadine 10 mg PO DAILY 02/02/19 08/10/19 letrozole 2.5 mg PO DAILY 02/04/19 08/10/19 hydrocodone-acetaminophen 2 tab PO Q4H PRN PRN #5 tab 03/28/19 08/10/19 fentanyl 1 patch TD Q72H #2 each 04/20/19 08/10/19 Eliquis 5 mg PO BID 07/25/19 08/10/19 Glucagon (HCl) Emergency Kit 1 mg PRN PRN 07/25/19 08/10/19 Humulin R U-500 (Conc) Kwikpen 40 unit SUBCUT QNOON 07/25/19 08/10/19 Humulin R U-500 (Conc) Kwikpen 40 unit SUBCUT QPM 07/25/19 08/10/19 Humulin R U-500 (Conc) Kwikpen 70 unit SUBCUT QAM 07/25/19 08/10/19 Lactobacillus acidophilus 1 cap DAILY 07/25/19 08/10/19 [Acidophilus] Narcan 1 spray INTRANASAL PRN PRN 07/25/19 08/10/19 Verzenio 150 mg PO BID 07/25/19 08/10/19 carbamazepine [Tegretol XR] 200 mg PO BID 07/25/19 08/10/19 cranberry 450 mg PO DAILY 07/25/19 08/10/19 ferrous sulfate 325 mg PO DAILY 07/25/19 08/10/19 guaifenesin [Mucinex] 600 mg PO BID PRN 07/25/19 08/10/19 omeprazole 40 mg PO DAILY 07/25/19 08/10/19 oxybutynin chloride 5 mg PO TID 07/25/19 08/10/19 Lactobacillus acidophilus 1,000 mmu cells PO BID #30 cap 08/01/19 08/10/19 hydrocortisone 10 mg PO DAILY@1500 #0 tab 08/01/19 08/10/19 hydrocortisone 30 mg PO DAILY #0 tab 08/01/19 08/10/19 Previous Rx's Medication Instructions Recorded benzonatate 200 mg PO TID PRN #15 cap 05/10/18 hydrocodone-acetaminophen 2 tab PO Q4H PRN PRN #5 tab 03/28/19 fentanyl 1 patch TD Q72H #2 each 04/20/19 Lactobacillus acidophilus 1,000 mmu cells PO BID #30 cap 08/01/19 hydrocortisone 10 mg PO DAILY@1500 #0 tab 08/01/19 hydrocortisone 30 mg PO DAILY #0 tab 08/01/19 Allergies Allergy/AdvReac Type Severity Reaction Status Date / Time bee venom protein (honey bee) Allergy Unknown Unverified 08/10/19 12:34 Latex, Natural Rubber AdvReac Intermediate Unverified 08/10/19 12:34 adhesive tape AdvReac Mild Unverified 08/10/19 12:34 General Stated Complaint: Abd Prob CARMEN: 3 Review of Systems <Kenia Melgoza - Last Filed: 08/10/19 17:01> Narrative: Constitutional: Negative for weight loss, alert and oriented, well groomed, normal body habitus, appears comfortable. HEENT: Denies trauma, headaches, blurry vision, nasal discharge, sore throat, trouble swallowing. Chest: Denies chest pain, palpitations, irregular rhythm, hypertension. Respiratory: Denies Shortness of breath, cough, hemoptysis. GI: Denies positive diarrhea and generalized abdominal pain. : Denies dysuria, hematuria, flank pain, rectal bleeding. Neuro: Denies dizziness, blurry vision, weakness, syncope, headache or facial numbness. Hematologic: Denies easy bruising, intolerance to heat or cold, hair loss. All systems reviewed & are unremarkable except as noted in HPI and below PFSH <Kenia Melgoza - Last Filed: 08/10/19 17:01> Medical History C. difficile diarrhea (Acute) Cancer related pain (Chronic) much improved with fentanyl patch Carpal tunnel syndrome (Acute) Chronic adrenal insufficiency (Acute) Chronic pain (Chronic) Chronic respiratory failure with hypoxia (Chronic) Chronic venous stasis dermatitis (Chronic) COPD (chronic obstructive pulmonary disease) (Chronic) On nocturnal oxygen - 2L prn Depression (Chronic) Diabetes mellitus (Chronic) Insulin dependent Diverticulosis (Acute) Dyslipidemia (Chronic) Goals of care, counseling/discussion (Acute) History of breast cancer (Chronic) metastatic, with lymphatic spread and bone mets Hyperlipidemia (Acute) Hypopituitarism (Chronic) Hypothyroidism (Chronic) Influenza B (Acute) Iron deficiency anemia (Acute) Metastatic breast cancer (Chronic) Obesity (Chronic) Obstructive sleep apnea (Chronic) per [facility] records Palliative care patient (Chronic) Pneumonia (Acute) POLST (Physician Orders for Life-Sustaining Treatment) (Acute) done 03/26/19; sent to [facility], [facility], original to her Restless leg syndrome (Acute) Spinal stenosis (Acute) Stage IV breast cancer in female (Chronic) Uncontrolled pain (Resolved) Surgical History H/O bilateral mastectomy (Acute) H/O colonoscopy with polypectomy (Acute) History of carpal tunnel release of both wrists (Acute) Port-A-Cath in place (Acute) Status post transsphenoidal pituitary resection (Acute) Family History Father , age 83 from complications of diabetes Prostate cancer Diabetes Mother , age 79 from complications of Crohn's disease and colitis Crohn's disease Colitis Daughter No problems noted. Daughter No problems noted. Brother No problems noted. Sister Diabetes Obesity Sister No problems noted. Sister No problems noted. Sister No problems noted. Social History Smoking/Tobacco Use Status: Former Tobacco Use Alcohol Intake: never Drug use: Never Substance use type: does not use Caregiver/Support person: Yes Household members: children Number of Children: 2 Communication Needs: Hard of Hearing and Corrective Lenses Education Level: middle school Do you need help understanding health information?: Always current occupation: on disability What is your relationship status?: How often do you talk on the phone with friends or family?: once per week How often do you get together with friends or relatives?: three or more times per week Panel score (0-1 are the most socially isolated patients): 1 What type of physical activity do you participate in: none, sedentary lifestyle, wheelchair-bound and additional Details: needs a new wheelchair, cannot walk far, just a few steps Special pedro pablo needs: No Do you feel safe at home: Yes Do you feel safe in your relationship?: Yes Additional Social history: , with 2 children. She is not working and on disability. Has a history of tobacco, quit in 1992. Reports rare use of alcohol only. Lives with daughter. Uses a walker to ambulate. Hard to do recently, depending more on WC. In a lot of pain. Recent scans show progression of breast cancer. Exam <Kenia Melgoza - [facility] Filed: 08/10/19 17:01> Narrative Exam Narrative: Constitutional: Alert and oriented x3. Appears stated age. Obese body habitus. Head: Normocephalic, no trauma. Eyes: Pupils PERRLA, Red reflex noted, EOM's intact. Eyelids symmetrical without lesions, discharge, or swelling. ENT: Bilateral TM's WNL, External ear normal to inspection, no mastoid TTP, swelling, or erythema, Nasal turbinates WNL, no nasal discharge. Normal dentition, Posterior pharynx WNL, no exudate. Chest: RRR, Normal S1, S2, distal pulses intact. Port-A-Cath noted to the right anterior chest, no surrounding erythema or swelling easily accessed Resp: Lungs clear to auscultation bilaterally, no wheezes, rales, or rhonchi. Musculoskeletal: Normal gait, 5/5 strength to all four extremities. Skin: Has bilateral lower extremity ecchymosis consistent with peripheral vascular disease which appears chronic in nature. Neurologic: Cranial nerves II-XII intact. Alert and oriented x 3. DTR's intact. Hematologic/Lymphatic: No ecchymosis, no lymphadenopathy. Course <eKnia Melgoza - [facility] Filed: 08/10/19 17:01> Vital Signs Vital signs: Vital Signs Temperature 36.6 C 08/10/19 12:29 Pulse 96 H 08/10/19 12:29 Respiratory Rate 18 08/10/19 12:29 Blood Pressure 126/59 L 08/10/19 12:29 Pulse Oximetry 95 08/10/19 12:29 Temperature 36.6 C 08/10/19 12:29 Temperature Source Temporal Artery Scan 08/10/19 12:29 Pulse 96 H 08/10/19 12:29 Respiratory Rate 18 08/10/19 12:29 Respiratory Effort Non-Labored 08/10/19 12:33 Blood Pressure 126/59 L 08/10/19 12:29 Blood Pressure Position Supine 08/10/19 12:29 Pulse Oximetry 95 08/10/19 12:29 Oxygen Delivery Method Room Air 08/10/19 12:29 Oxygen Flow Rate 0 08/10/19 12:29 Pain Level 10 08/10/19 12:29 Lab/Test Results Lab/Test Results: Laboratory Tests Range/Units 08/10/19 08/10/19 08/10/19 12:30 12:40 12:40 WBC (4.4-10.8) k/cumm 5.00 RBC (4.00-5.20) m/cumm 3.16 L Hgb (12.0-15.5) g/dL 9.3 L Hct (36.0-46.0) % 30.2 L MCV (80-95) fL 95.6 H MCH (27.0-33.0) pg 29.4 MCHC (32.0-36.0) g/dL 30.8 L RDW (11.7-14.6) % 16.4 H Plt Count (130-400) x1000/uL 246 MPV (8.0-11.0) fL 9.4 Immature Gran % % 0.2 Neutrophils % 78.2 Lymphocytes % 15.4 Monocytes % 5.0 Eosinophils % 1.0 Basophils % 0.2 Absolute Neutrophils (1.2-6.7) k/cumm 3.91 Absolute Lymphocytes (1.2-3.4) k/cumm 0.77 L Absolute Monocytes (0.11-0.7) k/cumm 0.25 Absolute Eosinophils (0.0-0.7) k/cumm 0.05 Absolute Basophils (0.0-0.2) k/cumm 0.01 Sodium (136-145) mmol/L 135 L Potassium (3.5-5.1) mmol/L 4.5 Chloride (98-107) mmol/L 101 Carbon Dioxide (21.0-32.0) mmol/L 26.0 Anion Gap (3-11) mmol/L 8.0 BUN (7-18) mg/dL 25 H Creatinine (0.55-1.02) mg/dL 1.53 H Estimated GFR/1.73 m2 (mL/min/1.73m2) 34.62 Glucose (74-106) mg/dL 320 H Calcium (8.5-10.1) mg/dL 9.3 Magnesium (1.8-2.4) mg/dL 1.8 Total Bilirubin (0.2-1.0) mg/dL 0.4 AST (15-37) U/L 62 H ALT (14-59) U/L 22 Alkaline Phosphatase (46-116) U/L 162 H Total Protein (6.4-8.2) g/dL 7.7 Albumin (3.4-5.0) g/dL 3.1 L Lipase (73-393) U/L 56 Urine Color (Yellow) Yellow Urine Clarity (Clear) Clear Urine pH (5-8) 5.5 Ur Specific [place] (1.005-1.025) 1.020 Urine Protein (Negative) mg/dL 30 H Urine Ketones (Negative) mg/dL Trace H Urine Blood (Negative) Small H Urine Nitrite (Negative) Negative Urine Bilirubin (Negative) Negative Urine Urobilinogen (Up TO 0.2) EU/dL 0.2 Ur Leukocyte Esterase (Negative) Negative Urine Glucose (Negative) mg/dL 100
[2019-08-10 13:39] LABS: Epithelial Cells Moderate HPF (Negative); RBC 20-50 HPF (0-2)
[2019-08-10 13:40] LABS: Bacteria Moderate HPF (Negative); C & S Indicated? No/Sq. Contamination; Crystals Negative HPF (Negative); Mucus Moderate (Negative)
[2019-08-10] MEDS: Ondansetron 4 MG/2 ML VIAL IVP (13:53)
[2019-08-10] MEDS: HYDROcodone 5/Acetaminophen 325 TAB PO ×2 (14:25→16:29)
--- NOTE | 2019-08-10 15:35 | DI.CT_ITS ---
EXAM: CT ABDOMEN PELVIS WO CLINICAL HISTORY: Generalized abdominal pain history of C. difficile. TECHNIQUE: Imaging Protocol: Axial computed tomography images with coronal and sagittal reformatted images were created and reviewed. COMPARISON: CT CT CHEST/ABD/PEL WO from 03/23/[address] CHEST PE CTA from 06/29/2019 CR,RF RF BARIUM ENEMA from 07/30/2019 FINDINGS: Patient motion artifact is present. ABDOMEN: Lung Bases: Dependent atelectasis bilaterally Liver: Normal density. No measurable mass. Hepatomegaly. Gallbladder and biliary tract: No radiodense calculus or biliary ductal dilation. Pancreas: Normal density, no abnormal calcifications or inflammatory process. Spleen: Normal. Kidneys: Normal size, contour and axis. No radiodense stones or obstructive uropathy. No masses seen. Adrenal glands: Stable left adrenal nodule. Lymph nodes: Within normal limits. Abdominal Aorta: Abdominal portion non-dilated. Atherosclerosis. PELVIS: Bladder: Symmetric distention, no gross wall thickening. Bowel: No obstruction or bowel wall thickening. No evidence of acute appendicitis. Colonic diverticu losis but no evidence of acute diverticulitis. Peritoneal cavity: No ascites, collection or mesenteric inflammatory response. Reproductive organs: Within normal limits. Bones: There is again seen sclerosis associated with the right iliac bone. Soft Tissues: Within normal limits. IMPRESSION: No acute abdominal or pelvic process. Findings were discussed with the emergency department on the date of the examination. RADIATION DOSE DELIVERED: 1,647.25mGy.cm Total DLP DATA REPOSITORY: All CT scans at this facility are submitted to the National Radiology Data Registry (NRDR) Dose Index Registry (DIR) with the [employer] (A[employer]). RADIATION OPTIMIZATION: All CT scans at this facility use at least one of these dose optimization te chniques: automated exposure control; mA and/or kV adjustment per patient size (includes targeted exa ms where dose is matched to clinical indication); or iterative reconstruction.
--- NOTE | 2019-08-10 16:50 | W.PM.HP.N ---
Date of service: 08/10/19 Time of Service: 16:50 Assessment and Plan Assessment and plan (1) Recurrent Clostridium difficile diarrhea: Status: Acute Assessment and plan: admit to med/surg. will order dificid per previous GI recommendations, this is not available tonight so will given PO vanco and IV flagyl. contact precautions. (2) Acute kidney injury superimposed on chronic kidney disease: Status: Acute Assessment and plan: creatinine up to 1.53 from baseline of 1.1, likely pre-renal from GI losses. (3) History of pulmonary embolism: Status: Chronic Assessment and plan: respiratory status stable, continue anticoagulation (4) Adrenal insufficiency: Status: Chronic Assessment and plan: no evidence of untreated adrenal insufficiency at this time. will continue home hydrocortisone dosing, give stress dose steroids if needed. monitor closely (5) Diabetes mellitus: Status: Chronic Assessment and plan: continue diabetic diet and current insulin regimen. will check blood sugar ac/hs and provide sliding scale coverage as needed. 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 (7) Stage IV breast cancer in female: Status: Chronic Assessment and plan: followed outpatient (8) DVT prophylaxis: Status: Acute Assessment and plan: fully anticoagulated on eliquis (9) Discharge planning issues: Status: Acute Assessment and plan: case management following for discharge planning. anticipate discharge to home once medically stable. plan of care discussed with Dr Reno who is in agreement. History of Present Illness History of Present Illness Chief Complaint: diarrhea Narrative: This is a 59-year-old female well known to the hospitalist services who presents to the ED with abdominal pain and diarrhea. She does have a history of C. difficile, obesity, diabetes mellitus, COPD, breast cancer with bilateral mastectomy, in place Port-A-Cath, hyponatremia, pneumonia, UTI.. She was on vancomycin for approximately 8 weeks in May was recently admitted to the hospital with pneumonia and UTI and discharged on 08/05/2019. She reports diarrhea began Friday night. She has generalized abdominal pain associated with this complaint. work up in the ED shows dehydration and cdiff colitis. She had about 4 loose stools while in the ED and required max nursing assistance for personal hygiene. she will be admitted to hospitalist services for IV hydration and further management and monitoring of her chronic diseases. She will be started on vancomycin and flagyl pending arrival of dificid anticipated tomorrow. Review of Systems Constitutional Constitutional: Reports system reviewed and no additional complaints, except as documented, Reports fatigue, Denies fever(s) and Reports lethargy Cardiovascular Cardiovascular: Denies chest pain and Denies dyspnea Respiratory Respiratory: Denies dyspnea Gastrointestinal Gastrointestinal: Reports change in bowel habits, Reports fecal incontinence, Reports diarrhea and Reports nausea Neurologic Neurologic: Denies confusion Psychiatric Psychiatric: Denies confusion Endocrine Endocrine: Reports fatigue COUNTS INCLUDE 234 BEDS AT THE [facility] Medical History C. difficile diarrhea (Acute) Cancer related pain (Chronic) much improved with fentanyl patch Carpal tunnel syndrome (Acute) Chronic adrenal insufficiency (Acute) Chronic pain (Chronic) Chronic respiratory failure with hypoxia (Chronic) Chronic venous stasis dermatitis (Chronic) COPD (chronic obstructive pulmonary disease) (Chronic) On nocturnal oxygen - 2L prn Depression (Chronic) Diabetes mellitus (Chronic) Insulin dependent Diverticulosis (Acute) Dyslipidemia (Chronic) Goals of care, counseling/discussion (Acute) History of breast cancer (Chronic) metastatic, with lymphatic spread and bone mets Hyperlipidemia (Acute) Hypopituitarism (Chronic) Hypothyroidism (Chronic) Influenza B (Acute) Iron deficiency anemia (Acute) Metastatic breast cancer (Chronic) Obesity (Chronic) Obstructive sleep apnea (Chronic) per [facility] records Palliative care patient (Chronic) Pneumonia (Acute) POLST (Physician Orders for Life-Sustaining Treatment) (Acute) done 03/26/19; sent to [facility], [facility], [facility], original to her Restless leg syndrome (Acute) Spinal stenosis (Acute) Stage IV breast cancer in female (Chronic) Uncontrolled pain (Resolved) Surgical History H/O bilateral mastectomy (Acute) H/O colonoscopy with polypectomy (Acute) History of carpal tunnel release of both wrists (Acute) Port-A-Cath in place (Acute) Status post transsphenoidal pituitary resection (Acute) Family History Father , age 83 from complications of diabetes Prostate cancer Diabetes Mother , age 79 from complications of Crohn's disease and colitis Crohn's disease Colitis Daughter No problems noted. Daughter No problems noted. Brother No problems noted. Sister Diabetes Obesity Sister No problems noted. Sister No problems noted. Sister No problems noted. Social History Smoking/Tobacco Use Status: Former Tobacco Use Alcohol Intake: never Drug use: Never Substance use type: does not use Caregiver/Support person: Yes Household members: children Number of Children: 2 Communication Needs: Hard of Hearing and Corrective Lenses Education Level: middle school Do you need help understanding health information?: Always current occupation: on disability What is your relationship status?: How often do you talk on the phone with friends or family?: once per week How often do you get together with friends or relatives?: three or more times per week Panel score (0-1 are the most socially isolated patients): 1 What type of physical activity do you participate in: none, sedentary lifestyle, wheelchair-bound and additional Details: needs a new wheelchair, cannot walk far, just a few steps Special pedro pablo needs: No Do you feel safe at home: Yes Do you feel safe in your relationship?: Yes Additional Social history: , with 2 children. She is not working and on disability. Has a history of tobacco, quit in 1992. Reports rare use of alcohol only. Lives with daughter. Uses a walker to ambulate. Hard to do recently, depending more on WC. In a lot of pain. Recent scans show progression of breast cancer. Meds Home Medications and Allergies Home Medications Medication Instructions Recorded Confirmed Type Spiriva Respimat 1 puff INHALATION DAILY 04/03/17 08/10/19 History budesonide-formoterol [Symbicort] 2 puff INHALATION BID 04/03/17 08/10/19 History cyanocobalamin (vitamin B-12) 1,000 mcg PO DAILY 04/03/17 08/10/19 History [Vitamin B-12] folic acid 1 mg PO DAILY 04/03/17 08/10/19 History montelukast [Singulair] 10 mg PO DAILY 04/03/17 08/10/19 History ondansetron HCl [Zofran] 8 mg PO TID PRN 04/03/17 08/10/19 History pregabalin [Lyrica] 200 mg PO TID 04/03/17 08/10/19 History Trulicity 1.5 mg SUBCUT QWEEK 05/06/18 08/10/19 History levothyroxine 150 mcg PO DAILY 05/06/18 08/10/19 History benzonatate 200 mg PO TID PRN #15 cap 05/10/18 08/10/19 Rx duloxetine [Cymbalta] 60 mg PO HS 02/02/19 08/10/19 History loratadine 10 mg PO DAILY 02/02/19 08/10/19 History letrozole 2.5 mg PO DAILY 02/04/19 08/10/19 History hydrocodone-acetaminophen 2 tab PO Q4H PRN PRN #5 tab 03/28/19 08/10/19 Rx fentanyl 1 patch TD Q72H #2 each 04/20/19 08/10/19 Rx Eliquis 5 mg PO BID 07/25/19 08/10/19 History Glucagon (HCl) Emergency Kit 1 mg PRN PRN 07/25/19 08/10/19 History Humulin R U-500 (Conc) Kwikpen 40 unit SUBCUT QNOON 07/25/19 08/10/19 History Humulin R U-500 (Conc) Kwikpen 40 unit SUBCUT QPM 07/25/19 08/10/19 History Humulin R U-500 (Conc) Kwikpen 70 unit SUBCUT QAM 07/25/19 08/10/19 History Lactobacillus acidophilus 1 cap DAILY 07/25/19 08/10/19 History [Acidophilus] Narcan 1 spray INTRANASAL PRN PRN 07/25/19 08/10/19 History Verzenio 150 mg PO BID 07/25/19 08/10/19 History carbamazepine [Tegretol XR] 200 mg PO BID 07/25/19 08/10/19 History cranberry 450 mg PO DAILY 07/25/19 08/10/19 History ferrous sulfate 325 mg PO DAILY 07/25/19 08/10/19 History guaifenesin [Mucinex] 600 mg PO BID PRN 07/25/19 08/10/19 History omeprazole 40 mg PO DAILY 07/25/19 08/10/19 History oxybutynin chloride 5 mg PO TID 07/25/19 08/10/19 History Lactobacillus acidophilus 1,000 mmu cells PO BID #30 cap 08/01/19 08/10/19 Rx hydrocortisone 10 mg PO DAILY@1500 #0 tab 08/01/19 08/10/19 Rx hydrocortisone 30 mg PO DAILY #0 tab 08/01/19 08/10/19 Rx Allergies Allergy/AdvReac Type Severity Reaction Status Date / Time bee venom protein (honey bee) Allergy Unknown Unverified 08/10/19 12:34 Latex, Natural Rubber AdvReac Intermediate Unverified 08/10/19 12:34 adhesive tape AdvReac Mild Unverified 08/10/19 12:34 Exam Const General: cooperative and no acute distress Nutritional Appearance: obese Orientation: alert, awake and oriented x3 Results Labs Result diagrams: 08/11/19 06:30 08/11/19 06:30 Labs: Laboratory Results - last 24 hr 08/10/19 08/10/19 08/10/19 12:30 12:40 12:40 WBC 5.00 RBC 3.16 L Hgb 9.3 L Hct 30.2 L MCV 95.6 H MCH 29.4 MCHC 30.8 L RDW 16.4 H Plt Count 246 MPV 9.4 Immature Gran % 0.2 Neutrophils % 78.2 Lymphocytes % 15.4 Monocytes % 5.0 Eosinophils % 1.0 Basophils % 0.2 Absolute Neutrophils 3.91 Absolute Lymphocytes 0.77 L Absolute Monocytes 0.25 Absolute Eosinophils 0.05 Absolute Basophils 0.01 Sodium 135 L Potassium 4.5 Chloride 101 Carbon Dioxide 26.0 Anion Gap 8.0 BUN 25 H Creatinine 1.53 H Estimated GFR/1.73 m2 34.62 Glucose 320 H Calcium 9.3 Magnesium 1.8 Total Bilirubin 0.4 AST 62 H ALT 22 Alkaline Phosphatase 162 H Total Protein 7.7 Albumin 3.1 L Lipase 56 Urine Color Yellow Urine Clarity Clear Urine pH 5.5 Ur Specific [place] 1.020 Urine Protein 30 H Urine Ketones Trace H Urine Blood Small H Urine Nitrite Negative Urine Bilirubin Negative Urine Urobilinogen 0.2 Ur Leukocyte Esterase Negative Urine RBC 20-50 H Urine WBC 3-5 Ur Epithelial Cells Moderate Urine Crystals Negative Urine Bacteria Moderate Urine Casts 5-10 coarse granular Urine Mucus Moderate Urine Other Ur Culture Indicated? No/sq. contamination Urine Glucose 100 Last Vital Signs Temp 36.6 C 08/10/19 12:29 Pulse 89 08/10/19 16:17 Resp 19 08/10/19 16:30 BP 133/61 08/10/19 16:17 Pulse Ox 93 L 08/10/19 16:30 COVID-19 Screening In the past 14 days, have you traveled outside of [place] or [place]?: NO Had IN PERSON contact w/suspected or confirmed C-19 person: No
[2019-08-10] MEDS: metroNIDAZOLE 500 MG/100 ML BAG 100 MG IVPB (18:17)
[2019-08-10] MEDS: Insulin Aspart 300 UNITS/3 ML PEN SC (18:25)
[2019-08-10] MEDS: Budesonide/Formoterol 160/4.5 6 GM 60 PUFF INH IH (20:08)
[2019-08-10] MEDS: fentaNYL 50 MCG PATCH TD (20:08)
[2019-08-10] MEDS: Pregabalin 100 MG CAP 200 MG PO (20:09)
[2019-08-10] MEDS: Oxybutynin 5 MG TAB PO (20:10)
[2019-08-10] MEDS: Famotidine 20 MG TAB PO (20:10)
[2019-08-10] MEDS: Apixaban 5 MG TAB PO (20:10)
[2019-08-10] MEDS: DULoxetine 30 MG CAP 60 MG PO (21:39)
[2019-08-11] MEDS: metroNIDAZOLE 500 MG/100 ML BAG 100 MG IVPB ×2 (00:11→05:24)
[2019-08-11] MEDS: Levothyroxine 150 MCG TAB PO (05:23)
[2019-08-11] MEDS: Normal Saline 1,000 ML 125 ML IV ×3 (05:24→22:49)
[2019-08-11 06:57] LABS: Absolute Basophil Count 0.01 k/cumm (0.0-0.2); Absolute Eosinophil Count 0.08 k/cumm (0.0-0.7); Absolute Lymphocyte Count 1.07 k/cumm (1.2-3.4); Absolute Monocyte Count 0.23 k/cumm (0.11-0.7); Basophils % 0.3; HCT 27.7 % (36.0-46.0); HGB 8.6 g/dL (12.0-15.5); Lymphocytes % 26.8; Mean Corpuscular Hemoglobin 29.6 pg (27.0-33.0); Mean Corpuscular Volume 95.2 fL (80-95); Mean Platelet Volume 9.2 fL (8.0-11.0); Monocytes % 5.8; Neutrophils % 65.1; Platelet Count 220 x1000/uL (130-400); RBC 2.91 m/cumm (4.00-5.20); RBC Distribution Width 16.2 % (11.7-14.6); White Blood Cell Count 3.99 k/cumm (4.4-10.8)
[2019-08-11 07:07] LABS: Anion Gap 9.6 mmol/L (3-11); BUN 18 mg/dL (7-18); CO2 25.4 mmol/L (21.0-32.0); CREATININE 1.23 mg/dL (0.55-1.02); Calcium 8.7 mg/dL (8.5-10.1); Chloride 102 mmol/L (98-107); Estimated GFR 44.54 (mL/min/1.73m2); Glucose 180 mg/dL (74-106); Potassium 3.6 mmol/L (3.5-5.1); Sodium 137 mmol/L (136-145)
[2019-08-11 07:30] VITALS: BP 127/73; PULSE 83; RESP 19; TEMP 36.5; O2SAT 93
[2019-08-11] MEDS: Famotidine 20 MG TAB PO ×2 (07:43→19:25)
[2019-08-11] MEDS: Folic Acid 1 MG TAB PO (07:43)
[2019-08-11] MEDS: Letrozole 2.5 MG TAB PO (07:43)
[2019-08-11] MEDS: Hydrocortisone 10 MG TAB 30 MG PO (07:43)
[2019-08-11] MEDS: Oxybutynin 5 MG TAB PO ×3 (07:43→19:25)
[2019-08-11] MEDS: Montelukast 10 MG TAB PO (07:43)
[2019-08-11] MEDS: Cyanocobalamin 500 MCG TAB 1000 MCG PO (07:43)
[2019-08-11] MEDS: Pregabalin 100 MG CAP 200 MG PO ×3 (07:43→19:25)
[2019-08-11] MEDS: Apixaban 5 MG TAB PO ×2 (07:44→19:25)
[2019-08-11] MEDS: Ferrous Sulfate 325 MG TAB PO (07:44)
[2019-08-11] MEDS: Loratidine 10 MG TAB PO (07:44)
[2019-08-11] MEDS: Insulin Aspart 300 UNITS/3 ML PEN SC ×3 (07:45→16:53)
[2019-08-11] MEDS: HYDROcodone 5/Acetaminophen 325 TAB PO (08:03)
[2019-08-11] MEDS: Fidaxomicin 200 MG TAB PO ×2 (08:45→19:25)
--- NOTE | 2019-08-11 09:36 | PDOC.CMIN ---
- If Service Date Differs Date of service: 08/11/19 Time of Service: 09:36 Care Management Initial Assess REASON FOR HOSPITALIZATION:: Recurrent C. difficile colitis PAST MEDICAL HISTORY/PAST SURGICAL HISTORY:: Medical History . C. difficile diarrhea (Acute). Cancer related pain (Chronic). much improved with fentanyl patch. Carpal tunnel syndrome (Acute). Chronic adrenal insufficiency (Acute). Chronic pain (Chronic). Chronic respiratory failure with hypoxia (Chronic). Chronic venous stasis dermatitis (Chronic). COPD (chronic obstructive pulmonary disease) (Chronic). On nocturnal oxygen - 2L prn. Depression (Chronic). Diabetes mellitus (Chronic). Insulin dependent. Diverticulosis (Acute). Dyslipidemia (Chronic). Goals of care, counseling/discussion (Acute). History of breast cancer (Chronic). metastatic, with lymphatic spread and bone mets. Hyperlipidemia (Acute). Hypopituitarism (Chronic). Hypothyroidism (Chronic). Influenza B (Acute). Iron deficiency anemia (Acute). Metastatic breast cancer (Chronic). Obesity (Chronic). Obstructive sleep apnea (Chronic). per [facility] records. Palliative care patient (Chronic). Pneumonia (Acute). POLST (Physician Orders for Life-Sustaining Treatment) (Acute). done 03/26/19; sent to [facility], [facility], [facility], [facility] to her. Restless leg syndrome (Acute). Spinal stenosis (Acute). Stage IV breast cancer in female (Chronic). Uncontrolled pain (Resolved). Surgical History . H/O bilateral mastectomy (Acute). H/O colonoscopy with polypectomy (Acute). History of carpal tunnel release of both wrists (Acute). Port-A-Cath in place (Acute). Status post transsphenoidal pituitary resection (Acute) PREVIOUS FUNCTIONAL STATUS/SOCIAL/FAMILY SUPPORTS:: Candace lives in a single family home with her daughter Kiki and her children, in [facility] [place] [place]. She has two daughters who reside locally. She is currently disabled and receives [facility] highest needs. Kiki is her primary caregiver. Candace utilizes a walker for ambulation, and a wheeled walker for distance. She is dependent on her daughter for transportation to and from appointments. CURRENT FUNCTIONAL STATUS:: Candace was sitting up in bed eating lunch when CM met with her. She was pleasant, as always, but discouraged about being back in the hospital. Candace shared the details of what transpired over the weekend and how she believes she came to be sick again. She shared that her daughter brought her home a dinner from a [employer] function and that she began vomiting shortly after eating it. Candace also discussed that she has C. difficile again and that she really hopes she will be able to have a fecal transplant as has been discussed with her. ADVANCE DIRECTIVES:: On file. Kiki MARIE. Has patient been provided with info about the portal/API?: Yes Did the patient sign up for the portal?: No CODE STATUS:: DNR/DNI INSURANCE COVERAGE / FINANCIAL ISSUES:: Medicare. Medicaid CURRENT HOME/COMMUNITY SERVICES/EQUIPMENT:: Candace has [employer] [facility], high highest. She uses a walker for ambulation and has home health nursing through [facility] PRIMARY CARE PHYSICIAN:: Nurys Martinez POTENTIAL DISCHARGE NEEDS:: Follow up with PCP and discharge plan of care PATIENT/FAMILY EDUCATION NEEDS:: Discharge plan, limitations, follow up plan, Ask Me Three TRANSPORTATION:: via private vehicle with Kiki PLAN:: Candace will likely be discharged home with a resumption of home health services through [facility]. She will follow up with her PCP, computer trainer and discharge plan of care.CM will continue to support patient, family and discharge planning concerns.
[2019-08-11] MEDS: Tiotropium Bromide-Respimat 10 PUFF INH IH (09:52)
[2019-08-11] MEDS: Budesonide/Formoterol 160/4.5 6 GM 60 PUFF INH IH ×2 (09:53→19:25)
[2019-08-11 09:54] VITALS: O2SAT 95
--- NOTE | 2019-08-11 10:19 | W.PM.PROGNOT ---
Date of Service Date of service: 08/11/19 Time of Service: 10:19 Assessment and Plan Assessment and plan (1) Recurrent Clostridium difficile diarrhea: Status: Acute Assessment and plan: started dificid per previous GI recommendations, reports symptoms improving. continue contact precautions. case discussed with GI [facility] Dr Tinoco. recommendations to complete 10 day course as ordered and to f/u outpatient with GI if symptoms reoccur or continue. (2) Acute kidney injury superimposed on chronic kidney disease: Status: Acute Assessment and plan: creatinine improved overnight with hydration, likely pre-renal from GI losses. (3) History of pulmonary embolism: Status: Chronic Assessment and plan: respiratory status stable, continue anticoagulation (4) Adrenal insufficiency: Status: Chronic Assessment and plan: no evidence of untreated adrenal insufficiency at this time. will continue home hydrocortisone dosing, give stress dose steroids if needed. monitor closely (5) Diabetes mellitus: Status: Chronic Assessment and plan: blood sugars have been controlled. continue diabetic diet and current insulin regimen. will check blood sugar ac/hs and provide sliding scale coverage as needed. 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 (7) Stage IV breast cancer in female: Status: Chronic Assessment and plan: followed outpatient (8) DVT prophylaxis: Status: Acute Assessment and plan: fully anticoagulated on eliquis (9) Discharge planning issues: Status: Acute Assessment and plan: case management following for discharge planning. anticipate discharge to home once medically stable. plan of care discussed with Dr Reno who is in agreement. Subjective Subjective Patient reports: no new complaints, feels better, tolerating liquids well and tolerating a regular diet Exam Const General: cooperative and no acute distress Nutritional Appearance: obese Orientation: alert, awake and oriented x3 HENMT Head: normal to inspection, normocephalic and atraumatic Mouth: oral mucosae normal Teeth and gingiva: edentulous Resp Effort & Inspection: normal respiratory effort Auscultation: clear to auscultation bilaterally and diminished lung sounds bilaterally Cardio Rate: regular rate Rhythm: regular rhythm GI Inspection: large pannus and obesity Palpation: soft Auscultation: normal bowel sounds Skin Lesions: lesion noted Neuro General: patient alert, patient awake and patient oriented x3 Cranial Nerves: CN's II-XI intact bilaterally Cognition: normal cognition Speech: speech normal Motor: muscle tone normal throughout Extrem General: full ROM and edema (trace, reports no increased edema, chronic discoloration to BLE) Laterality: bilateral Objective Objective Clinical Data: Abnormal lab results 08/10/19 08/10/19 08/10/19 Range/Units 12:30 12:40 12:40 WBC (4.4-10.8) k/cumm RBC 3.16 L (4.00-5.20) m/cumm Hgb 9.3 L (12.0-15.5) g/dL Hct 30.2 L (36.0-46.0) % MCV 95.6 H (80-95) fL MCHC 30.8 L (32.0-36.0) g/dL RDW 16.4 H (11.7-14.6) % Absolute Lymphocytes 0.77 L (1.2-3.4) k/cumm Sodium 135 L (136-145) mmol/L BUN 25 H (7-18) mg/dL Creatinine 1.53 H (0.55-1.02) mg/dL Glucose 320 H (74-106) mg/dL AST 62 H (15-37) U/L Alkaline Phosphatase 162 H (46-116) U/L Albumin 3.1 L (3.4-5.0) g/dL Urine Protein 30 H (Negative) mg/dL Urine Ketones Trace H (Negative) mg/dL Urine Blood Small H (Negative) Urine RBC 20-50 H (0-2) HPF 08/11/19 08/11/19 Range/Units 06:30 06:30 WBC 3.99 L (4.4-10.8) k/cumm RBC 2.91 L (4.00-5.20) m/cumm Hgb 8.6 L (12.0-15.5) g/dL Hct 27.7 L (36.0-46.0) % MCV 95.2 H (80-95) fL MCHC 31.0 L (32.0-36.0) g/dL RDW 16.2 H (11.7-14.6) % Absolute Lymphocytes 1.07 L (1.2-3.4) k/cumm Sodium (136-145) mmol/L BUN (7-18) mg/dL Creatinine 1.23 H (0.55-1.02) mg/dL Glucose 180 H D (74-106) mg/dL AST (15-37) U/L Alkaline Phosphatase (46-116) U/L Albumin (3.4-5.0) g/dL Urine Protein (Negative) mg/dL Urine Ketones (Negative) mg/dL Urine Blood (Negative) Urine RBC (0-2) HPF Vital Signs Temperature 36.5 C 08/11/19 07:30 Temperature Source Tympanic 08/11/19 07:30 Pulse 83 08/11/19 07:30 Pulse Rhythm Regular 08/11/19 01:34 Pulse 88 08/10/19 16:30 Respiratory Rate 19 08/11/19 07:30 Respiratory Effort Non-Labored 08/11/19 01:34 Respiratory Depth Normal 08/11/19 01:34 Respiratory Pattern Normal 08/11/19 01:34 Blood Pressure 127/73 08/11/19 07:30 Blood Pressure Mean 76 08/10/19 16:17 Blood Pressure Position Supine 08/10/19 12:29 Pulse Oximetry 95 08/11/19 09:54 Oxygen Delivery Method Room Air 08/11/19 09:54 Oxygen Flow Rate 0 08/11/19 09:54 Pain Level 8 08/11/19 08:03 Intake & Output 08/10/19 08/10/19 08/11/19 11:59 23:59 11:59 Intake Total 1350 / 1350 1086.667 / 1086.667 Balance 1350 / 1350 1086.667 / 1086.667 Weight 152.407 kg 146 kg Intake: IV 1100 / 1100 1086.667 / 1086.667 Oral 250 / 250 Other: Urine Color Yellow Yellow Urine Appearance Clear Clear Urine Odor None None Comment urine was mixed with liquid stool unable to measure urine. pt was also incontinent before getting her to the commode Stool Size Large Stool Characteristics Liquid Brown Voiding Methods Incontinent Bedside Commode Incontinent Laboratory Results WBC 3.99 k/cumm (4.4-10.8) L 08/11/19 06:30 RBC 2.91 m/cumm (4.00-5.20) L 08/11/19 06:30 Hgb 8.6 g/dL (12.0-15.5) L 08/11/19 06:30 Hct 27.7 % (36.0-46.0) L 08/11/19 06:30 MCV 95.2 fL (80-95) H 08/11/19 06:30 MCH 29.6 pg (27.0-33.0) 08/11/19 06:30 MCHC 31.0 g/dL (32.0-36.0) L 08/11/19 06:30 RDW 16.2 % (11.7-14.6) H 08/11/19 06:30 Plt Count 220 x1000/uL (130-400) 08/11/19 06:30 MPV 9.2 fL (8.0-11.0) 08/11/19 06:30 Immature Gran % 0.0 % 08/11/19 06:30 Neutrophils % 65.1 08/11/19 06:30 Lymphocytes % 26.8 08/11/19 06:30 Monocytes % 5.8 08/11/19 06:30 Eosinophils % 2.0 08/11/19 06:30 Basophils % 0.3 08/11/19 06:30 Absolute Neutrophils 2.60 k/cumm (1.2-6.7) 08/11/19 06:30 Absolute Lymphocytes 1.07 k/cumm (1.2-3.4) L 08/11/19 06:30 Absolute Monocytes 0.23 k/cumm (0.11-0.7) 08/11/19 06:30 Absolute Eosinophils 0.08 k/cumm (0.0-0.7) 08/11/19 06:30 Absolute Basophils 0.01 k/cumm (0.0-0.2) 08/11/19 06:30 Sodium 137 mmol/L (136-145) 08/11/19 06:30 Potassium 3.6 mmol/L (3.5-5.1) 08/11/19 06:30 Chloride 102 mmol/L (98-107) 08/11/19 06:30 Carbon Dioxide 25.4 mmol/L (21.0-32.0) 08/11/19 06:30 Anion Gap 9.6 mmol/L (3-11) 08/11/19 06:30 BUN 18 mg/dL (7-18) D 08/11/19 06:30 Creatinine 1.23 mg/dL (0.55-1.02) H 08/11/19 06:30 Estimated GFR/1.73 m2 44.54 (mL/min/1.73m2) 08/11/19 06:30 Glucose 180 mg/dL (74-106) H D 08/11/19 06:30 Calcium 8.7 mg/dL (8.5-10.1) 08/11/19 06:30 Magnesium 1.8 mg/dL (1.8-2.4) 08/10/19 12:40 Total Bilirubin 0.4 mg/dL (0.2-1.0) 08/10/19 12:40 AST 62 U/L (15-37) H 08/10/19 12:40 ALT 22 U/L (14-59) 08/10/19 12:40 Alkaline Phosphatase 162 U/L (46-116) H 08/10/19 12:40 Total Protein 7.7 g/dL (6.4-8.2) 08/10/19 12:40 Albumin 3.1 g/dL (3.4-5.0) L 08/10/19 12:40 Lipase 56 U/L (73-393) 08/10/19 12:40 Urine Color Yellow (Yellow) 08/10/19 12:30 Urine Clarity Clear (Clear) 08/10/19 12:30 Urine pH 5.5 (5-8) 08/10/19 12:30 Ur Specific [place] 1.020 (1.005-1.025) 08/10/19 12:30 Urine Protein 30 mg/dL (Negative) H 08/10/19 12:30 Urine Ketones Trace mg/dL (Negative) H 08/10/19 12:30 Urine Blood Small (Negative) H 08/10/19 12:30 Urine Nitrite Negative (Negative) 08/10/19 12:30 Urine Bilirubin Negative (Negative) 08/10/19 12:30 Urine Urobilinogen 0.2 EU/dL (Up TO 0.2) 08/10/19 12:30 Ur Leukocyte Esterase Negative (Negative) 08/10/19 12:30 Urine RBC 20-50 HPF (0-2) H 08/10/19 12:30 Urine WBC 3-5 HPF (0-5) 08/10/19 12:30 Ur Epithelial Cells Moderate HPF (Negative) 08/10/19 12:30 Urine Crystals Negative HPF (Negative) 08/10/19 12:30 Urine Bacteria Moderate HPF (Negative) 08/10/19 12:30 Urine Casts 5-10 coarse granular LPF (Negative) 08/10/19 12:30 Urine Mucus Moderate (Negative) 08/10/19 12:30 Urine Other (Negative) 08/10/19 12:30 Ur Culture Indicated? No/sq. contamination 08/10/19 12:30 Urine Glucose 100 mg/dL (Negative) 08/10/19 12:30
[2019-08-11 10:42] LABS: Campylobacter PCR Negative (Negative); Salmonella PCR Negative (Negative); Shiga Toxin PCR Negative (Negative); Shigella/Enteroinvasive Ecoli Negative (Negative)
[2019-08-11 13:09] LABS: C Difficile PCR Positive (Negative)
--- NOTE | 2019-08-11 15:21 | CHAPLAIN ---
Candace and I know each other from previous admissions. She said on Friday her daughter brought her home a meal from a auto body repair teacher dinner, and Candace go began throwing up and having diarrhea after that. Symptoms continued for a couple of days so she came into the ER yesterday. She's in touch with her daughter,Kiki, who is her caregiver, by phone. Candace's frustrated that Kiki can go into the ER with her and visit her on Med/Surg because Kiki knows more about Candace's medication and care than Candace does.
[2019-08-11] MEDS: Hydrocortisone 10 MG TAB PO (15:37)
[2019-08-11 16:45] VITALS: BP 115/72; PULSE 74; RESP 18; TEMP 36.2; O2SAT 97
[2019-08-11] MEDS: Melatonin 3 MG TAB 9 MG PO (21:18)
[2019-08-11] MEDS: DULoxetine 30 MG CAP 60 MG PO (21:18)
[2019-08-12 04:37] VITALS: BP 107/69; PULSE 71; RESP 18; TEMP 36.6; O2SAT 97
[2019-08-12] MEDS: Levothyroxine 150 MCG TAB PO (06:03)
[2019-08-12] MEDS: Normal Saline 1,000 ML 125 ML IV ×3 (06:03→22:30)
[2019-08-12] MEDS: Budesonide/Formoterol 160/4.5 6 GM 60 PUFF INH IH ×2 (07:40→20:28)
[2019-08-12 07:45] VITALS: BP 106/62; PULSE 68; RESP 20; TEMP 36.5; O2SAT 92
[2019-08-12] MEDS: Ferrous Sulfate 325 MG TAB PO (07:59)
[2019-08-12] MEDS: Apixaban 5 MG TAB PO ×2 (07:59→20:34)
[2019-08-12] MEDS: Cyanocobalamin 500 MCG TAB 1000 MCG PO (07:59)
[2019-08-12] MEDS: Oxybutynin 5 MG TAB PO ×3 (07:59→20:28)
[2019-08-12] MEDS: Letrozole 2.5 MG TAB PO (08:00)
[2019-08-12] MEDS: Pregabalin 100 MG CAP 200 MG PO ×3 (08:00→20:28)
[2019-08-12] MEDS: Hydrocortisone 10 MG TAB 30 MG PO (08:00)
[2019-08-12] MEDS: Montelukast 10 MG TAB PO (08:00)
[2019-08-12] MEDS: Folic Acid 1 MG TAB PO (08:01)
[2019-08-12] MEDS: Fidaxomicin 200 MG TAB PO ×2 (08:01→20:28)
[2019-08-12] MEDS: HYDROcodone 5/Acetaminophen 325 TAB PO ×2 (08:01→17:21)
[2019-08-12] MEDS: Famotidine 20 MG TAB PO ×2 (08:01→20:29)
[2019-08-12] MEDS: Loratidine 10 MG TAB PO (08:01)
[2019-08-12] MEDS: Tiotropium Bromide-Respimat 10 PUFF INH IH (08:17)
--- NOTE | 2019-08-12 08:40 | CMPROGNOTE_ITS ---
- If Service Date Differs Date of service: 08/12/19 Time of Service: 08:40 Care Management Progress Note S/O:Candace was OOB sitting up in a chair when CM met with her. She was dozing at the time and admitted that she had not slept last night, even after taking Melatonin. She was not sure why, she stated that she just couldn't get to sleep. Candace shared that her diarrhea is much improved and that her provider informed her that she will likely be discharged tomorrow. A: Candace is a 59 year old woman admitted on 08/10/19 with C. difficile colitis P:Candace will likely be discharged home with a resumption of home health services through [facility]. 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
--- NOTE | 2019-08-12 09:07 | PGE_ITS ---
Date of Service Date of service: 08/12/19 Time of Service: 09:07 Assessment and Plan Assessment and plan (1) Recurrent Clostridium difficile diarrhea: Status: Acute Assessment and plan: started dificid per previous GI recommendations, reports symptoms improving. continue contact precautions. case discussed with GI [facility] Dr Tinoco. recommendations to complete 10 day course as ordered and to f/u outpatient with GI if symptoms reoccur or continue. labs and CT scan sent to [facility] gastroenterology yesterday afternoon as requested (2) Acute kidney injury superimposed on chronic kidney disease: Status: Acute Assessment and plan: creatinine improved overnight with hydration, likely pre-renal from GI losses. IV fluids stopped (3) History of pulmonary embolism: Status: Chronic Assessment and plan: respiratory status stable, continue anticoagulation (4) Adrenal insufficiency: Status: Chronic Assessment and plan: no evidence of untreated adrenal insufficiency at this time. will continue home hydrocortisone dosing, give stress dose steroids if needed. monitor closely (5) Diabetes mellitus: Status: Chronic Assessment and plan: blood sugars have been controlled 81-195. continue diabetic diet and current insulin regimen. will check blood sugar ac/hs and provide sliding scale coverage as needed. hemoglobin A1C 8.06 June 2019 Qualifiers: Chronic kidney disease stage: stage 3 (moderate) Diabetes mellitus complication detail: with chronic kidney disease Diabetes mellitus complication status: with kidney complications Diabetes mellitus supervisor intermediates insulin use: with supervisor intermediates use Diabetes mellitus type: type 2 Qualified Code(s): E11.22 - Type 2 diabetes mellitus with diabetic chronic kidney disease; N18.3 - Chronic kidney disease, stage 3 (moderate); Z79.4 - shelter (current) use of insulin (6) COPD (chronic obstructive pulmonary disease): Status: Chronic Assessment and plan: stable, continue home medications. (7) Stage IV breast cancer in female: Status: Chronic Assessment and plan: followed outpatient (8) DVT prophylaxis: Status: Acute Assessment and plan: fully anticoagulated on eliquis (9) Discharge planning issues: Status: Acute Assessment and plan: case management following for discharge planning. anticipate discharge to home once medically stable. plan of care discussed with Dr Reno who is in agreement. Subjective Subjective Patient reports: no new complaints, feels better, tolerating liquids well and tolerating a regular diet Exam Const General: cooperative and no acute distress Nutritional Appearance: obese Orientation: alert, awake and oriented x3 HENMT Head: normal to inspection, normocephalic and atraumatic Mouth: oral mucosae normal Teeth and gingiva: edentulous Resp Effort & Inspection: normal respiratory effort Auscultation: clear to auscultation bilaterally and diminished lung sounds bilaterally Cardio Rate: regular rate Rhythm: regular rhythm GI Inspection: large pannus and obesity Palpation: soft Auscultation: normal bowel sounds Skin Lesions: lesion noted Neuro General: patient alert, patient awake and patient oriented x3 Cranial Nerves: CN's II-XI intact bilaterally Cognition: normal cognition Speech: speech normal Motor: muscle tone normal throughout Extrem General: full ROM and edema (trace, reports no increased edema, chronic discoloration to BLE) Laterality: bilateral Objective Objective Clinical Data: Abnormal lab results 08/10/19 Range/Units 15:00 Stl C.difficile Tox PCR Positive A (Negative) Vital Signs Temperature 36.5 C 08/12/19 07:45 Temperature Source Tympanic 08/12/19 07:45 Pulse 68 08/12/19 07:45 Pulse Rhythm Regular 08/11/19 19:45 Pulse 88 08/10/19 16:30 Respiratory Rate 20 08/12/19 07:45 Respiratory Effort 08/11/19 19:45 Respiratory Depth Normal 08/11/19 19:45 Respiratory Pattern Normal 08/11/19 19:45 Blood Pressure 106/62 08/12/19 07:45 Blood Pressure Mean 76 08/10/19 16:17 Blood Pressure Position Supine 08/10/19 12:29 Pulse Oximetry 92 L 08/12/19 07:45 Oxygen Delivery Method Room Air 08/12/19 07:45 Oxygen Flow Rate 0 08/12/19 07:45 Pain Level 8 08/12/19 08:01 Intake & Output 08/11/19 08/11/19 08/12/19 11:59 23:59 11:59 Intake Total 1326.667 / 3566.667 2240 / 3566.667 904.167 / 904.167 Balance 1326.667 / 3566.667 224 / 3566.667 904.167 / 904.167 Weight 146 kg 147.3 kg Intake: IV 1086.667 / 3086.667 1999 / 3086.667 904.167 / 904.167 Oral 240 / 480 240 / 480 Other: Urine Color Yellow Urine Appearance Clear Urine Odor None Comment urine was mixed with liquid stool unable to measure urine. pt was also incontinent before getting her to the commode incontinent Stool Size Large Small Stool Characteristics Liquid Liquid Brown Brown Voiding Methods Bedside Commode Incontinent Incontinent Laboratory Results WBC 3.99 k/cumm (4.4-10.8) L 08/11/19 06:30 RBC 2.91 m/cumm (4.00-5.20) L 08/11/19 06:30 Hgb 8.6 g/dL (12.0-15.5) L 08/11/19 06:30 Hct 27.7 % (36.0-46.0) L 08/11/19 06:30 MCV 95.2 fL (80-95) H 08/11/19 06:30 MCH 29.6 pg (27.0-33.0) 08/11/19 06:30 MCHC 31.0 g/dL (32.0-36.0) L 08/11/19 06:30 RDW 16.2 % (11.7-14.6) H 08/11/19 06:30 Plt Count 220 x1000/uL (130-400) 08/11/19 06:30 MPV 9.2 fL (8.0-11.0) 08/11/19 06:30 Immature Gran % 0.0 % 08/11/19 06:30 Neutrophils % 65.1 08/11/19 06:30 Lymphocytes % 26.8 08/11/19 06:30 Monocytes % 5.8 08/11/19 06:30 Eosinophils % 2.0 08/11/19 06:30 Basophils % 0.3 08/11/19 06:30 Absolute Neutrophils 2.60 k/cumm (1.2-6.7) 08/11/19 06:30 Absolute Lymphocytes 1.07 k/cumm (1.2-3.4) L 08/11/19 06:30 Absolute Monocytes 0.23 k/cumm (0.11-0.7) 08/11/19 06:30 Absolute Eosinophils 0.08 k/cumm (0.0-0.7) 08/11/19 06:30 Absolute Basophils 0.01 k/cumm (0.0-0.2) 08/11/19 06:30 Sodium 137 mmol/L (136-145) 08/11/19 06:30 Potassium 3.6 mmol/L (3.5-5.1) 08/11/19 06:30 Chloride 102 mmol/L (98-107) 08/11/19 06:30 Carbon Dioxide 25.4 mmol/L (21.0-32.0) 08/11/19 06:30 Anion Gap 9.6 mmol/L (3-11) 08/11/19 06:30 BUN 18 mg/dL (7-18) D 08/11/19 06:30 Creatinine 1.23 mg/dL (0.55-1.02) H 08/11/19 06:30 Estimated GFR/1.73 m2 44.54 (mL/min/1.73m2) 08/11/19 06:30 Glucose 180 mg/dL (74-106) H D 08/11/19 06:30 Calcium 8.7 mg/dL (8.5-10.1) 08/11/19 06:30 Magnesium 1.8 mg/dL (1.8-2.4) 08/10/19 12:40 Total Bilirubin 0.4 mg/dL (0.2-1.0) 08/10/19 12:40 AST 62 U/L (15-37) H 08/10/19 12:40 ALT 22 U/L (14-59) 08/10/19 12:40 Alkaline Phosphatase 162 U/L (46-116) H 08/10/19 12:40 Total Protein 7.7 g/dL (6.4-8.2) 08/10/19 12:40 Albumin 3.1 g/dL (3.4-5.0) L 08/10/19 12:40 Lipase 56 U/L (73-393) 08/10/19 12:40 Urine Color Yellow (Yellow) 08/10/19 12:30 Urine Clarity Clear (Clear) 08/10/19 12:30 Urine pH 5.5 (5-8) 08/10/19 12:30 Ur Specific [place] 1.020 (1.005-1.025) 08/10/19 12:30 Urine Protein 30 mg/dL (Negative) H 08/10/19 12:30 Urine Ketones Trace mg/dL (Negative) H 08/10/19 12:30 Urine Blood Small (Negative) H 08/10/19 12:30 Urine Nitrite Negative (Negative) 08/10/19 12:30 Urine Bilirubin Negative (Negative) 08/10/19 12:30 Urine Urobilinogen 0.2 EU/dL (Up TO 0.2) 08/10/19 12:30 Ur Leukocyte Esterase Negative (Negative) 08/10/19 12:30 Urine RBC 20-50 HPF (0-2) H 08/10/19 12:30 Urine WBC 3-5 HPF (0-5) 08/10/19 12:30 Ur Epithelial Cells Moderate HPF (Negative) 08/10/19 12:30 Urine Crystals Negative HPF (Negative) 08/10/19 12:30 Urine Bacteria Moderate HPF (Negative) 08/10/19 12:30 Urine Casts 5-10 coarse granular LPF (Negative) 08/10/19 12:30 Urine Mucus Moderate (Negative) 08/10/19 12:30 Urine Other (Negative) 08/10/19 12:30 Ur Culture Indicated? No/sq. contamination 08/10/19 12:30 Urine Glucose 100 mg/dL (Negative) 08/10/19 12:30 Stool Campylobacter PCR Negative (Negative) 08/10/19 15:00 Stl C.difficile Tox PCR Positive (Negative) A 08/10/19 15:00 Stool Salmonella PCR Negative (Negative) 08/10/19 15:00 Stool Shigella PCR Negative (Negative) 08/10/19 15:00 Shiga Toxin (PCR) Negative (Negative) 08/10/19 15:00
[2019-08-12] MEDS: Insulin Aspart 300 UNITS/3 ML PEN SC ×2 (11:53→17:04)
[2019-08-12 11:56] VITALS: BP 110/70; PULSE 72; RESP 15; TEMP 36.1; O2SAT 95
--- NOTE | 2019-08-12 13:43 | DM INPTCON_ITS ---
Date of service: 08/12/19 Time of Service: 13:43 Diabetes Inpatient Consult DESCRIPTION/ASSESSMENT: 59 year old female admitted with intractiable diarrhea, reoccurent C. Diff. PMH: Uncontrolled DM, morbid obesity, stage 4 breast CA. 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 Recent labs include A1C 8.5% (06/29/19) indicating elevated BS. Met with Candace again and she declined diabetes education at this time. She states she know what to eat. Provided Candace with my contact information if has future concerns. Time Spent in Nutritional Counseling and Treatment: 10 min
[2019-08-12] MEDS: Hydrocortisone 10 MG TAB PO (14:05)
--- NOTE | 2019-08-12 14:59 | PHA.REVIEW ---
Pharmacy Admission Review - Admission Clinical Review (Last Reviewed 08/10/19 @ 13:37 by Kenia Melgoza) Intractable diarrhea (Acute) Discharge planning issues (Acute) C. difficile colitis (Acute) Acute kidney injury superimposed on chronic kidney disease (Acute) Recurrent Clostridium difficile diarrhea (Acute) DVT prophylaxis (Acute) bee venom protein (honey bee) Allergy (Unknown, Unverified 08/10/19 12:34) Latex, Natural Rubber Adverse Reaction (Intermediate, Unverified 08/10/19 12:34) adhesive tape Adverse Reaction (Mild, Unverified 08/10/19 12:34) Height 5 ft 9 in Weight 147.3 kg - Comments Comments/Follow Ups: C-DIFF ( RECURRENT) COLITIS, DEHYDRATION - Renal Dosing Renal Dosing: BUN 18 mg/dL (7-18) D 08/11/19 06:30 Creatinine 1.23 mg/dL (0.55-1.02) H 08/11/19 06:30 Medications needing adjustments: Reviewed (est CrCl~ 50.8 ml/min Meds-OK) - Anticoagulation Anticoagulation: Hgb 8.6 g/dL (12.0-15.5) L 08/11/19 06:30 Hct 27.7 % (36.0-46.0) L 08/11/19 06:30 Plt Count 220 x1000/uL (130-400) 08/11/19 06:30 Creatinine 1.23 mg/dL (0.55-1.02) H 08/11/19 06:30 Medications: Apixaban - Opiate Usage Evaluate Pain Scale/Pains Meds: Reviewed (Fentanyl Patch 50mcg, [place] 5/325 2 tabs po q4h prn) Scheduled Bowel Reg ordered if on Opiates?: No (having diarrhea) - Relevant Labs Sodium 137 mmol/L (136-145) 08/11/19 06:30 Potassium 3.6 mmol/L (3.5-5.1) 08/11/19 06:30 Chloride 102 mmol/L (98-107) 08/11/19 06:30 Magnesium 1.8 mg/dL (1.8-2.4) 08/10/19 12:40 - DM Control DM Control: Glucose 180 mg/dL (74-106) H D 08/11/19 06:30 Finger Stick Blood Glucose 259 Finger Stick Blood Glucose 259 Finger Stick Blood Glucose 126 Finger Stick Blood Glucose 126 Insulin Dosing: Reviewed (Uses Regular Insulin U-500 home dose ordered) - Heart Failure/AL EF%, MCKENNA's, B-Blockers, Diuretics: N/A - BP Control BP Control: Blood Pressure 110/70 Blood Pressure 106/62 Blood Pressure 107/69 If elevated: N/A - Qtc Review If Elevated: Reviewed (Last EKG 07/25/19 QTc- 444) - IV to PO Switch IV Medications: N/A - Home Meds Home Med List reviewed: Reviewed (ordered) - Current meds Current Medication Order Review: Reviewed (Patient own meds Jose and Judi) - Comments Comments/Follow Ups: Patient was ordered Dificid tablets 200mg ( Fidaxomicin) po id x 10 days. all 20 tablets were loaded into the pyxis.
[2019-08-12 19:10] VITALS: BP 141/66; PULSE 68; RESP 19; TEMP 36.5; O2SAT 94
[2019-08-12] MEDS: Melatonin 3 MG TAB 9 MG PO (21:48)
[2019-08-12] MEDS: DULoxetine 30 MG CAP 60 MG PO (21:49)
[2019-08-13 00:25] VITALS: BP 127/70; PULSE 71; RESP 18; TEMP 36.5; O2SAT 98
[2019-08-13] MEDS: Levothyroxine 150 MCG TAB PO (06:23)
[2019-08-13] MEDS: Normal Saline 1,000 ML 125 ML IV (06:23)
[2019-08-13 07:45] LABS: Abs Immature Grans 0.01 k/cumm (0.0-0.09); Absolute Basophil Count 0.01 k/cumm (0.0-0.2); Absolute Lymphocyte Count 1.41 k/cumm (1.2-3.4); Absolute Monocyte Count 0.26 k/cumm (0.11-0.7); Basophils % 0.2; Eosinophils % 2.4; HCT 26.4 % (36.0-46.0); HGB 8.2 g/dL (12.0-15.5); Immature Grans % 0.2 %; Lymphocytes % 34.5; Mean Corp. HGB Concentration 31.1 g/dL (32.0-36.0); Mean Corpuscular Hemoglobin 29.6 pg (27.0-33.0); Mean Corpuscular Volume 95.3 fL (80-95); Mean Platelet Volume 9.4 fL (8.0-11.0); Monocytes % 6.4; Neutrophils % 56.3; Platelet Count 218 x1000/uL (130-400); RBC 2.77 m/cumm (4.00-5.20); White Blood Cell Count 4.09 k/cumm (4.4-10.8)
[2019-08-13 08:05] VITALS: BP 108/64; PULSE 72; RESP 18; TEMP 36.9; O2SAT 95
[2019-08-13] MEDS: Tiotropium Bromide-Respimat 10 PUFF INH IH (08:10)
[2019-08-13] MEDS: Budesonide/Formoterol 160/4.5 6 GM 60 PUFF INH IH (08:10)
[2019-08-13] MEDS: Folic Acid 1 MG TAB PO (08:13)
[2019-08-13] MEDS: Hydrocortisone 10 MG TAB 30 MG PO (08:13)
[2019-08-13] MEDS: Cyanocobalamin 500 MCG TAB 1000 MCG PO (08:14)
[2019-08-13] MEDS: Famotidine 20 MG TAB PO (08:14)
[2019-08-13] MEDS: Fidaxomicin 200 MG TAB PO (08:14)
[2019-08-13] MEDS: Ferrous Sulfate 325 MG TAB PO (08:14)
[2019-08-13] MEDS: Montelukast 10 MG TAB PO (08:14)
[2019-08-13] MEDS: Letrozole 2.5 MG TAB PO (08:14)
[2019-08-13] MEDS: Apixaban 5 MG TAB PO (08:14)
[2019-08-13] MEDS: Loratidine 10 MG TAB PO (08:15)
[2019-08-13] MEDS: Pregabalin 100 MG CAP 200 MG PO (08:15)
[2019-08-13] MEDS: HYDROcodone 5/Acetaminophen 325 TAB PO (08:15)
[2019-08-13] MEDS: Oxybutynin 5 MG TAB PO (08:15)
[2019-08-13 08:39] LABS: Anisocytosis 1+; Diff Comment RBC Morph Reviewed; Hypochromasia 1+; Polychromasia Present
[2019-08-13 08:43] LABS: Anion Gap 9.9 mmol/L (3-11); BUN 10 mg/dL (7-18); CO2 25.1 mmol/L (21.0-32.0); CREATININE 1.16 mg/dL (0.55-1.02); Calcium 8.2 mg/dL (8.5-10.1); Chloride 103 mmol/L (98-107); Estimated GFR 47.65 (mL/min/1.73m2); Glucose 114 mg/dL (74-106); Potassium 3.6 mmol/L (3.5-5.1); Sodium 138 mmol/L (136-145)
--- NOTE | 2019-08-13 11:12 | DSE_ITS ---
Date of service: 08/13/19 Time of Service: 11:12 DS: Diagnosis Discharge Diagnosis (1) Recurrent Clostridium difficile diarrhea: Status: Acute (2) Acute kidney injury superimposed on chronic kidney disease: Status: Acute (3) History of pulmonary embolism: Status: Chronic (4) Adrenal insufficiency: Status: Chronic (5) Diabetes mellitus: Status: Chronic (6) COPD (chronic obstructive pulmonary disease): Status: Chronic (7) Stage IV breast cancer in female: Status: Chronic Discharge Plan Disposition Patient Disposition: HOME W/HOME HEALTH SERVICE Condition: Stable Discharge Details Chief Complaint: Abd Prob Clinical Impression: C. difficile colitis, Intractable diarrhea Reason For Visit: CDIFF COLITIS DEHYDRATION Admit Date/Time: 08/10/19 16:37 Admit Provider: Sheyla Reno Attending Provider: Sheyla Reno Primary Care Provider: ANNA TORO ED Provider: [facility] Course Hospital Course: This is a 59-year-old female well known to the hospitalist services who presents to the ED with abdominal pain and diarrhea. She does have a history of C. difficile, obesity, diabetes mellitus, COPD, breast cancer with bilateral mastectomy, in place Port-A-Cath, hyponatremia, pneumonia, UTI.. She was on vancomycin for approximately 8 weeks in May was recently admitted to the hospital with pneumonia and UTI and discharged on 08/05/2019. She reports diarrhea began Friday night. She has generalized abdominal pain associated with this complaint. work up in the ED shows dehydration and cdiff colitis. Her case discussed with GI [facility] Dr Tinoco. recommendations to complete 10 day course as ordered and to f/u outpatient with GI if symptoms reoccur or continue. labs and CT scan sent to [facility] gastroenterology yesterday afternoon as requested. She will be discharged to home with the prescription for dificid from this pharmacy. She was advised to resume the rest of her medications as previously prescribed. She will follow up outpatient with her primary care provider and gastroenterology at [facility]. She has remained hemodynamically stable she is tolerating oral intake without difficulties her abdominal pain has resolved as well as her diarrhea she is now passing soft formed stools. Her case and discharge plan was discussed with Dr. Reno who is in agreement Home Meds and New Rx's Prescriptions: New Dificid 200 mg Tablet 200 mg PO BID Qty: 15 RF: 0 Continued pregabalin [Lyrica] 200 MG capsule 200 mg PO TID RF: 0 montelukast [Singulair] 10 MG tablet 10 mg PO DAILY RF: 0 cyanocobalamin (vitamin B-12) [Vitamin B-12] 1,000 MCG tablet 1,000 mcg PO DAILY RF: 0 folic acid 1 MG tablet 1 mg PO DAILY RF: 0 Spiriva Respimat 4 GM mist 1 puff Inhalation DAILY RF: 0 budesonide-formoterol [Symbicort] 10.2 GM HFA aerosol inhaler 2 puff Inhalation BID RF: 0 ondansetron HCl [Zofran] 8 MG tablet 8 mg PO TID PRNRF: 0 levothyroxine 150 mcg Tablet 150 mcg PO DAILY RF: 0 Trulicity 1.5 mg/0.5 mL Pen Injector 1.5 mg SUBCUT QWEEK RF: 0 benzonatate 200 mg Capsule 200 mg PO TID PRN (Reason: cough) Qty: 15 RF: 0 fentanyl 50 mcg/hr patch 72 hour 1 patch TD Q72H Qty: 2 RF: 0 loratadine 10 mg Tablet 10 mg PO DAILY RF: 0 duloxetine [Cymbalta] 60 mg Capsule,Delayed Release(Dr/Ec) 60 mg PO HS RF: 0 letrozole 2.5 mg Tablet 2.5 mg PO DAILY RF: 0 hydrocodone-acetaminophen 5-325 mg Tablet 2 tab PO Q4H PRN PRNQty: 5 RF: 0 omeprazole 40 mg Capsule,Delayed Release(Dr/Ec) 40 mg PO DAILY RF: 0 carbamazepine [Tegretol XR] 200 mg Tablet Extended Release 12 Hr 200 mg PO BID RF: 0 ferrous sulfate 325 mg (65 mg iron) Tablet 325 mg PO DAILY RF: 0 Lactobacillus acidophilus [Acidophilus] Capsule 1 cap DAILY RF: 0 Verzenio 150 mg Tablet 150 mg PO BID RF: 0 oxybutynin chloride 5 mg Tablet 5 mg PO TID RF: 0 cranberry 450 mg Tablet 450 mg PO DAILY RF: 0 Narcan 4 mg/actuation [place],Non-Aerosol 1 spray INTRANASAL PRN PRNRF: 0 Glucagon (HCl) Emergency Kit 1 mg Recon Soln 1 mg PRN PRNRF: 0 Eliquis 5 mg tablet 5 mg PO BID RF: 0 guaifenesin [Mucinex] 600 mg tablet extended release 12hr 600 mg PO BID PRNRF: 0 Humulin R U-500 (Conc) Kwikpen 500 unit/mL (3 mL) insulin pen 40 unit SUBCUT QNOON RF: 0 Humulin R U-500 (Conc) Kwikpen 500 unit/mL (3 mL) insulin pen 40 unit SUBCUT QPM RF: 0 Humulin R U-500 (Conc) Kwikpen 500 unit/mL (3 mL) insulin pen 70 unit SUBCUT QAM RF: 0 hydrocortisone 10 mg Tablet 10 mg PO DAILY@1500 Qty: 0 RF: 0 hydrocortisone 5 mg Tablet 30 mg PO DAILY Qty: 0 RF: 0 Lactobacillus acidophilus Capsule 1,000 mmu cells PO BID Qty: 30 RF: 0 Discharge Instructions Instructions: C Diff (Clostridium Difficile) Infection (DC) Additional Instructions: resume usual medications complete the 10 day course of dificid as directed. Stand Alone Forms: Nursing Discharge Form Referrals: GASTROENTEROLOGY,[facility] [OTHER] - (Dr Tinoco) Karley Vu [NURSE PRACTITIONER] - 08/23/19 1:00 pm Activity:: Activity as Tolerated Equipment/Supplies:: No Equipment Needed Diet:: Carb Counting Discharge Orders Discharge Orders: Discharge Order (Routine); Ordered 08/13/19 Ordered By: Bhargavi Meyrs Discharge Data Discharge Date/Time-TO BE ENTERED AT DEPARTURE: 08/13/19 13:26 DS: Summary Status at Discharge Functional status at discharge: wheelchair bound Overall status at discharge: patient is progressing back to baseline Mental Status: mental status grossly normal Speech and Movement: speech and movement normal Mood: congruent mood Affect: normal affect Exam Const General: cooperative and no acute distress Nutritional Appearance: obese Orientation: alert, awake and oriented x3 HENMT Head: normal to inspection, normocephalic and atraumatic Mouth: oral mucosae normal Teeth and gingiva: edentulous Resp Effort & Inspection: normal respiratory effort Auscultation: clear to auscultation bilaterally and diminished lung sounds bilaterally Cardio Rate: regular rate Rhythm: regular rhythm GI Inspection: large pannus and obesity Palpation: soft Auscultation: normal bowel sounds Skin Lesions: lesion noted Neuro General: patient alert, patient awake and patient oriented x3 Cranial Nerves: CN's II-XI intact bilaterally Cognition: normal cognition Speech: speech normal Motor: muscle tone normal throughout Extrem General: full ROM and edema (trace, reports no increased edema, chronic discoloration to BLE) Laterality: bilateral Psych Mental Status: mental status grossly normal Speech and Movement: speech and movement normal Mood: congruent mood Affect: normal affect DS: Data Vitals/I&O Vitals and I&O: Vital Signs Temperature 36.5 C 08/13/19 00:25 Temperature Source Tympanic 08/13/19 00:25 Pulse 71 08/13/19 00:25 Pulse Rhythm Regular 08/13/19 08:15 Pulse 88 08/10/19 16:30 Respiratory Rate 18 08/13/19 00:25 Respiratory Effort Non-Labored 08/13/19 08:15 Respiratory Depth Normal 08/13/19 08:15 Respiratory Pattern Normal 08/13/19 08:15 Blood Pressure 127/70 08/13/19 00:25 Blood Pressure Mean 76 08/10/19 16:17 Blood Pressure Position Supine 08/10/19 12:29 Pulse Oximetry 98 08/13/19 00:25 Oxygen Delivery Method Nasal Cannula 08/13/19 00:25 Oxygen Flow Rate 2 08/13/19 00:25 Pain Level 8 08/13/19 08:15 Intake & Output 08/12/19 08/12/19 08/13/19 11:59 23:59 11:59 Intake Total 1384.167 / 3847.084 2462.917 / 3847.084 1225.417 / 1225.417 Balance 1384.167 / 3847.084 2462.917 / 3847.084 1225.417 / 1225.417 Weight 147.3 kg 149 kg Intake: IV 904.167 / 2877.084 1972.917 / 2877.084 985.417 / 985.417 Oral 480 / 970 490 / 970 240 / 240 Other: Urine Color Yellow Stool Size Moderate Stool Characteristics Liquid Brown Voiding Methods Incontinent Incontinent Data Completed and Pending Labs on day of discharge: Labs from last 24 hours 08/13/19 08/13/19 06:45 06:45 WBC 4.09 L RBC 2.77 L Hgb 8.2 L Hct 26.4 L MCV 95.3 H MCH 29.6 MCHC 31.1 L RDW 16.0 H Plt Count 218 MPV 9.4 Immature Gran % 0.2 Neutrophils % 56.3 Lymphocytes % 34.5 Monocytes % 6.4 Eosinophils % 2.4 Basophils % 0.2 Absolute Neutrophils 2.30 Absolute Lymphocytes 1.41 Absolute Monocytes 0.26 Absolute Eosinophils 0.10 Absolute Basophils 0.01 Differential Comment Rbc morph reviewed RBC Morphology See below Polychromasia Present Hypochromasia 1+ Anisocytosis 1+ Sodium 138 Potassium 3.6 Chloride 103 Carbon Dioxide 25.1 Anion Gap 9.9 BUN 10 D Creatinine 1.16 H Estimated GFR/1.73 m2 47.65 Glucose 114 H Calcium 8.2 L [facility] Medical History C. difficile diarrhea (Acute) Cancer related pain (Chronic) much improved with fentanyl patch Carpal tunnel syndrome (Acute) Chronic adrenal insufficiency (Acute) Chronic pain (Chronic) Chronic respiratory failure with hypoxia (Chronic) Chronic venous stasis dermatitis (Chronic) COPD (chronic obstructive pulmonary disease) (Chronic) On nocturnal oxygen - 2L prn Depression (Chronic) Diabetes mellitus (Chronic) Insulin dependent Diverticulosis (Acute) Dyslipidemia (Chronic) Goals of care, counseling/discussion (Acute) History of breast cancer (Chronic) metastatic, with lymphatic spread and bone mets Hyperlipidemia (Acute) Hypopituitarism (Chronic) Hypothyroidism (Chronic) Influenza B (Acute) Iron deficiency anemia (Acute) Metastatic breast cancer (Chronic) Obesity (Chronic) Obstructive sleep apnea (Chronic) per [facility] records Palliative care patient (Chronic) Pneumonia (Acute) POLST (Physician Orders for Life-Sustaining Treatment) (Acute) done 03/26/19; [facility], original to her Restless leg syndrome (Acute) Spinal stenosis (Acute) Stage IV breast cancer in female (Chronic) Uncontrolled pain (Resolved) Surgical History H/O bilateral mastectomy (Acute) H/O colonoscopy with polypectomy (Acute) History of carpal tunnel release of both wrists (Acute) Port-A-Cath in place (Acute) Status post transsphenoidal pituitary resection (Acute) Family History Father , age 83 from complications of diabetes Prostate cancer Diabetes Mother , age 79 from complications of Crohn's disease and colitis Crohn's disease Colitis Daughter No problems noted. Daughter No problems noted. Brother No problems noted. Sister Diabetes Obesity Sister No problems noted. Sister No problems noted. Sister No problems noted. Social History Smoking/Tobacco Use Status: Former Tobacco Use Alcohol Intake: never Drug use: Never Substance use type: does not use Caregiver/Support person: Yes Household members: children Number of Children: 2 Communication Needs: Hard of Hearing and Corrective Lenses Education Level: middle school Do you need help understanding health information?: Always current occupation: on disability What is your relationship status?: How often do you talk on the phone with friends or family?: once per week How often do you get together with friends or relatives?: three or more times per week Panel score (0-1 are the most socially isolated patients): 1 What type of physical activity do you participate in: none, sedentary lifestyle, wheelchair-bound and additional Details: needs a new wheelchair, cannot walk far, just a few steps Special pedro pablo needs: No Do you feel safe at home: Yes Do you feel safe in your relationship?: Yes Additional Social history: , with 2 children. She is not working and on disability. Has a history of tobacco, quit in 1992. Reports rare use of alcohol only. Lives with daughter. Uses a walker to ambulate. Hard to do recently, depending more on WC. In a lot of pain. Recent scans show progression of breast cancer.
[2019-08-13] MEDS: Insulin Aspart 300 UNITS/3 ML PEN SC (12:21)
[2019-08-13] MEDS: Heparin 500 UNITS/5 ML SYRINGE IVP (12:40)
[2019-08-13] MEDS: Normal Saline Flush 10 ML SYR IVP (12:40)
--- NOTE | 2019-08-13 13:31 | PDOC.CMDIS ---
- If Service Date Differs Date of service: 08/13/19 Time of Service: 13:31 LACE Index Scoring Tool - Questions: Length of Stay (in days): 3 Acuity (Admit via E.D.?): Yes Comorbidities: Diabetes w/o Complication, Chronic Pulmonary Disease, Metastatic Solid Tumor E.D. Visits: 10 - Answers: Total Score: 15 Risk of Readmission: High Risk Care Management Discharge Reason for Hospitalization: Recurrent C. difficile colitis Discharge Plan: Candace will discharge home with a resumption of home health nursing and new PT from [facility]. CM communicated the discharge to the agency. Candace will transport with her daughter Kiki via private vehicle and follow up with her PCP and discharge plan of care. She will also follow up with [facility] regarding the possibility of having a fecal implant. Patient/Family Education Needs: Discharge plan, limitations, follow up plan and Ask Me Three.
== END 2019-08-13 13:26 | disposition home health service (06) | DRG 372 ==
LOC: ER 17:29 → MS 17:54
PROVIDERS: Nurse Practitioner Acute Care; Admitting Provider Internal Medicine; Emergency Provider Registered Nurse Emergency; PCP Nurse Practitioner Family; Visit Provider Family Medicine
DX: A04.71 Enterocolitis due to Clostridium difficile, recurrent (principal); N17.9 Acute kidney failure, unspecified; E27.40 Unspecified adrenocortical insufficiency; Z68.42 Body mass index [BMI] 45.0-49.9, adult; E86.0 Dehydration; N18.3 Chronic kidney disease, stage 3 (moderate); Z86.711 Personal history of pulmonary embolism; J44.9 Chronic obstructive pulmonary disease, unspecified; E11.22 Type 2 diabetes mellitus with diabetic chronic kidney disease; Z71.3 Dietary counseling and surveillance; E66.9 Obesity, unspecified; Z90.13 Acquired absence of bilateral breasts and nipples; Z45.2 Encounter for adjustment and management of vascular access device; Z79.01 Long term (current) use of anticoagulants; Z79.4 Long term (current) use of insulin; E03.9 Hypothyroidism, unspecified; E78.5 Hyperlipidemia, unspecified; G25.81 Restless legs syndrome; Z87.891 Personal history of nicotine dependence; F32.9 Major depressive disorder, single episode, unspecified
CPT/HCPCS: 36591; 80048; 80053; 83690; 87505; 94640; 96361; 96374; 99223; 99233; 99239; 99285; 74176; 81003; 81015; 82270; 83630; 83735; 85025; 87324; 87798; J2405

== ENCOUNTER 2019-08-17 08:57 | Inpatient (IN) | payer MEDICARE, MEDICAID, SELFPAY ==
[2019-08-17 08:59] VITALS: BP 109/39; PULSE 91; RESP 13; TEMP 36.6; O2SAT 93
--- NOTE | 2019-08-17 09:26 | ED.GENADUL_ITS ---
Discharge Plan Discharge Details Chief Complaint: GenMedical Admit Date/Time: 08/17/19 10:59 Admit Provider: Luke Huynh Attending Provider: Luke Huynh Primary Care Provider: ANNA TORO ED Provider: Inocencio Alcazar Discharge Data Discharge Date/Time-TO BE ENTERED AT DEPARTURE: 08/17/19 11:37 Medical Decision Making 9:30 --59 year-old female with multiple medical problems, recently hospitalized and discharged on 08/13/2019 after being treated for C. difficile colitis, returns now with generalized weakness since this morning. Unable to ambulate. Patient does appear dehydrated. Suspect hypovolemia likely secondary to recent diarrheal disease and decreased fluid intake. We will give IV fluid resuscitation. Consider acute kidney injury. I will check creatinine. Weakness is generalized with no focal neurologic deficits. Consider ACS. Screening ECG was reviewed and interpreted by me: Sinus rhythm 90 bpm, normal axis, no STEMI. Will check troponin. Consider infectious etiology as patient has had chills. Will check lactate, CBC, blood cultures, urinalysis and chest x-ray. 10:30 --labs reviewed and acute kidney injury noted. Creatinine elevated from prior recent. Continue IV fluid volume resuscitation. Patient received 500 bolus. Will repeat additional 500 bolus. Urinalysis reviewed: Positive nitrite. Large blood. Small leukocyte esterase. Lactate is 3.5. We will initiate treatment for urinary tract infection with ceftriaxone 1 g IV, this is in addition to Dificid which she is currently prescribed for the C. difficile colitis. Patient reassessed and continues to be generally weak. Plan to admit given ambulatory dysfunction, hypovolemia with acute kidney injury, and superimposed urinary tract infection. 10:58 --I spoke with hospitalist on-call, Dr. Cosme, discussed ED presentation and course. He will admit the patient. Care transition to Dr. Huynh. Diagnosis: Generalized weakness, hyperkalemia with acute kidney injury, UTI Disposition: Admit HPI General Mode of arrival: EMS . Date/Time Provider Initiated Documentation: 08/17/19 09:00 . Limitations to Documentation: other (Patient is poor historian) . Information obtained by: patient, EMS and old records reviewed . HPI Narrative: 59-year-old female with multiple medical problems including history of recent recurrent C. difficile colitis, recent acute kidney injury superimposed on chronic kidney disease, history of pulmonary embolism, adrenal insufficiency, diabetes, COPD, stage IV breast cancer, metastatic cancer to her spine, recently hospitalized for C. difficile colitis and intractable diarrhea and discharged on 08/13/2019 on Dificid. Patient is on a chemotherapeutic agent. Patient presents today with chief complaint of weakness. Weakness is generalized. She has no focal weakness or numbness. Symptoms started this morning. She notes she feels she was doing pretty well after discharge on the but today woke up and was quite weak and unable to ambulate. Patient notes she does have some chills. Denies fever. Denies cough. No shortness of breath. No chest pain. No abdominal pain. No dysuria, hematuria, or increased urinary frequency. Patient notes she is not currently having diarrhea. Related Data Home Medications Medication Instructions Recorded Confirmed Spiriva Respimat 1 puff INHALATION DAILY 04/03/17 08/17/19 budesonide-formoterol [Symbicort] 2 puff INHALATION BID 04/03/17 08/17/19 cyanocobalamin (vitamin B-12) 1,000 mcg PO DAILY 04/03/17 08/17/19 [Vitamin B-12] folic acid 1 mg PO DAILY 04/03/17 08/17/19 montelukast [Singulair] 10 mg PO DAILY 04/03/17 08/17/19 ondansetron HCl [Zofran] 8 mg PO TID PRN 04/03/17 08/17/19 pregabalin [Lyrica] 200 mg PO TID 04/03/17 08/17/19 Trulicity 1.5 mg SUBCUT QWEEK 05/06/18 08/17/19 levothyroxine 150 mcg PO DAILY 05/06/18 08/17/19 benzonatate 200 mg PO TID PRN #15 cap 05/10/18 08/17/19 duloxetine [Cymbalta] 60 mg PO HS 02/02/19 08/17/19 loratadine 10 mg PO DAILY 02/02/19 08/17/19 letrozole 2.5 mg PO DAILY 02/04/19 08/17/19 hydrocodone-acetaminophen 2 tab PO Q4H PRN PRN #5 tab 03/28/19 08/17/19 fentanyl 1 patch TD Q72H #2 each 04/20/19 08/17/19 Eliquis 5 mg PO BID 07/25/19 08/17/19 Glucagon (HCl) Emergency Kit 1 mg PRN PRN 07/25/19 08/17/19 Humulin R U-500 (Conc) Kwikpen 40 unit SUBCUT QNOON 07/25/19 08/17/19 Humulin R U-500 (Conc) Kwikpen 40 unit SUBCUT QPM 07/25/19 08/17/19 Humulin R U-500 (Conc) Kwikpen 70 unit SUBCUT QAM 07/25/19 08/17/19 Lactobacillus acidophilus 1 cap DAILY 07/25/19 08/17/19 [Acidophilus] Narcan 1 spray INTRANASAL PRN PRN 07/25/19 08/17/19 Verzenio 150 mg PO BID 07/25/19 08/17/19 carbamazepine [Tegretol XR] 200 mg PO BID 07/25/19 08/17/19 cranberry 450 mg PO DAILY 07/25/19 08/17/19 ferrous sulfate 325 mg PO DAILY 07/25/19 08/17/19 guaifenesin [Mucinex] 600 mg PO BID PRN 07/25/19 08/17/19 omeprazole 40 mg PO DAILY 07/25/19 08/17/19 oxybutynin chloride 5 mg PO TID 07/25/19 08/17/19 Lactobacillus acidophilus 1,000 mmu cells PO BID #30 cap 08/01/19 08/17/19 hydrocortisone 10 mg PO DAILY@1500 #0 tab 08/01/19 08/17/19 hydrocortisone 30 mg PO DAILY #0 tab 08/01/19 08/17/19 fidaxomicin [Dificid] 200 mg PO BID #15 tab 08/13/19 08/17/19 Previous Rx's Medication Instructions Recorded benzonatate 200 mg PO TID PRN #15 cap 05/10/18 hydrocodone-acetaminophen 2 tab PO Q4H PRN PRN #5 tab 03/28/19 fentanyl 1 patch TD Q72H #2 each 04/20/19 Lactobacillus acidophilus 1,000 mmu cells PO BID #30 cap 08/01/19 hydrocortisone 10 mg PO DAILY@1500 #0 tab 08/01/19 hydrocortisone 30 mg PO DAILY #0 tab 08/01/19 fidaxomicin [Dificid] 200 mg PO BID #15 tab 08/13/19 Allergies Allergy/AdvReac Type Severity Reaction Status Date / Time bee venom protein (honey bee) Allergy Unknown Unverified 08/17/19 09:07 Latex, Natural Rubber AdvReac Intermediate Unverified 08/17/19 09:07 adhesive tape AdvReac Mild Unverified 08/17/19 09:07 General Stated Complaint: GenMedical CARMEN: 3 Review of Systems All systems reviewed & are unremarkable except as noted in HPI and below Constitutional Constitutional: Reports as per HPI Respiratory Respiratory: Denies cough Gastrointestinal Gastrointestinal: Denies abdominal pain and Denies diarrhea Genitourinary Genitourinary: Reports as per HPI [facility] Medical History C. difficile diarrhea (Acute) Cancer related pain (Chronic) much improved with fentanyl patch Carpal tunnel syndrome (Acute) Chronic adrenal insufficiency (Acute) Chronic pain (Chronic) Chronic respiratory failure with hypoxia (Chronic) Chronic venous stasis dermatitis (Chronic) COPD (chronic obstructive pulmonary disease) (Chronic) On nocturnal oxygen - 2L prn Depression (Chronic) Diabetes mellitus (Chronic) Insulin dependent Diverticulosis (Acute) Dyslipidemia (Chronic) Goals of care, counseling/discussion (Acute) History of breast cancer (Chronic) metastatic, with lymphatic spread and bone mets Hyperlipidemia (Acute) Hypopituitarism (Chronic) Hypothyroidism (Chronic) Influenza B (Acute) Iron deficiency anemia (Acute) Metastatic breast cancer (Chronic) Obesity (Chronic) Obstructive sleep apnea (Chronic) per [facility] records Palliative care 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 (Chronic) Pneumonia (Acute) POLST (Physician Orders for Life-Sustaining Treatment) (Acute) done 03/26/19; sent to [facility], [facility], original to her Restless leg syndrome (Acute) Spinal stenosis (Acute) Stage IV breast cancer in female (Chronic) Uncontrolled pain (Resolved) Surgical History H/O bilateral mastectomy (Acute) H/O colonoscopy with polypectomy (Acute) History of carpal tunnel release of both wrists (Acute) Port-A-Cath in place (Acute) Status post transsphenoidal pituitary resection (Acute) Family History Father , age 83 from complications of diabetes Prostate cancer Diabetes Mother , age 79 from complications of Crohn's disease and colitis Crohn's disease Colitis Daughter No problems noted. Daughter No problems noted. Brother No problems noted. Sister Diabetes Obesity Sister No problems noted. Sister No problems noted. Sister No problems noted. Social History Smoking/Tobacco Use Status: Former Tobacco Use Alcohol Intake: never Drug use: Never Substance use type: does not use Caregiver/Support person: Yes Household members: children Number of Children: 2 Communication Needs: Hard of Hearing and Corrective Lenses Education Level: middle school Do you need help understanding health information?: Always current occupation: on disability What is your relationship status?: How often do you talk on the phone with friends or family?: once per week How often do you get together with friends or relatives?: three or more times per week Panel score (0-1 are the most socially isolated patients): 1 What type of physical activity do you participate in: none, sedentary lifestyle , wheelchair-bound and additional Details: needs a new wheelchair, cannot walk far, just a few steps Special pedro pablo needs: No Do you feel safe at home: Yes Do you feel safe in your relationship?: Yes Additional Social history: , with 2 children. She is not working and on disability. Has a history of tobacco, quit in 1992. Reports rare use of alcohol only. Lives with daughter. Uses a walker to ambulate. Hard to do recent ly, depending more on WC. In a lot of pain. Recent scans show progression of breast cancer. Exam Const General: cooperative and no acute distress HENMT Mouth: mucous membranes dry Eyes Conjunctivae: normal conjunctivae Sclera: normal sclerae Neck Neck: supple Resp Auscultation: clear to auscultation bilaterally, no rales, no rhonchi and no wheezes Cardio Jugular venous pressure: no JVD Rate: regular rate and not tachycardic Rhythm: regular rhythm GI Palpation: soft, not firm, no guarding, no masses, not rigid and nontender Skin General skin exam: no rashes or lesions noted Neuro General: patient alert, patient awake, patient oriented x3 and tone normal Extrem General: edema Laterality: bilateral (Trace, patient notes chronic) Psych Appearance: grossly normal Course Vital Signs Vital signs: Vital Signs Temperature 36.6 C 08/17/19 08:59 Pulse 91 H 08/17/19 08:59 Respiratory Rate 13 08/17/19 08:59 Blood Pressure 109/39 L 08/17/19 08:59 Pulse Oximetry 93 L 08/17/19 08:59 Temperature 36.6 C 08/17/19 08:59 Temperature Source Skin 08/17/19 08:59 Pulse 91 H 08/17/19 08:59 Respiratory Rate 13 08/17/19 08:59 Blood Pressure 109/39 L 08/17/19 08:59 Blood Pressure Position Sitting 08/17/19 08:59 Pulse Oximetry 93 L 08/17/19 08:59 Oxygen Delivery Method Nasal Cannula 08/17/19 08:59 Oxygen Flow Rate 2 08/17/19 08:59 Pain Level 10 08/17/19 08:59 Comment 08/17/19 08:59 Lab/Test Results Lab/Test Results: 08/17/19 09:17 Blood Blood Culture - Pending 08/17/19 09:17 Blood Blood Culture - Pending
[2019-08-17 09:39] LABS: Abs Immature Grans 0.01 k/cumm (0.0-0.09); Absolute Basophil Count 0.01 k/cumm (0.0-0.2); Absolute Eosinophil Count 0.09 k/cumm (0.0-0.7); Absolute Lymphocyte Count 1.27 k/cumm (1.2-3.4); Absolute Monocyte Count 0.32 k/cumm (0.11-0.7); Absolute Neutrophil Count 4.07 k/cumm (1.2-6.7); Basophils % 0.2; Eosinophils % 1.6; HCT 31.5 % (36.0-46.0); HGB 9.8 g/dL (12.0-15.5); Immature Grans % 0.2 %; Mean Corp. HGB Concentration 31.1 g/dL (32.0-36.0); Mean Corpuscular Hemoglobin 29.7 pg (27.0-33.0); Mean Corpuscular Volume 95.5 fL (80-95); Mean Platelet Volume 9.2 fL (8.0-11.0); Monocytes % 5.5; Neutrophils % 70.5; Platelet Count 306 x1000/uL (130-400); RBC Distribution Width 16.4 % (11.7-14.6); White Blood Cell Count 5.77 k/cumm (4.4-10.8)
[2019-08-17 09:41] LABS: Lactate 3.5 mmol/L (0.6-1.4)
[2019-08-17 09:53] LABS: INR 1.1 (0.9-1.1); Prothrombin Time 11.5 sec (9.3-11.0)
--- NOTE | 2019-08-17 09:53 | DI.RAD_ITS ---
EXAM: XR PORTABLE CHEST AP CLINICAL HISTORY: chills, weakness TECHNIQUE: 2D digital imaging was performed. COMPARISON: CR,XR XR CHEST 1V IN DI DEPT from 07/31/2019 FINDINGS: The exam is somewhat limited by the patient's body habitus. The heart is enlarged, stable. The left lung base is partially obscured by overlying abdominal soft tissues. The lungs appear grossly clear .. A port is an noted over the right upper chest with the tip in the SVC. IMPRESSION: No acute pulmonary findings. Cardiomegaly. DATA REPOSITORY: RADIATION DOSE DELIVERED:
[2019-08-17] MEDS: Lactated Ringers 500 ML IV ×2 (09:54→10:22)
[2019-08-17] MEDS: HYDROcodone 10/Acetaminophen 325 TAB PO (09:54)
[2019-08-17 09:55] VITALS: RESP 14
[2019-08-17 09:59] LABS: Troponin I < 0.05 ng/mL (<0.06)
[2019-08-17 10:09] LABS: ALT 13 U/L (14-59); AST 25 U/L (15-37); Albumin 2.9 g/dL (3.4-5.0); Alkaline Phosphatase 133 U/L (46-116); Anion Gap 11.4 mmol/L (3-11); BUN 10 mg/dL (7-18); Bilirubin, Total 0.5 mg/dL (0.2-1.0); CO2 25.6 mmol/L (21.0-32.0); CREATININE 1.84 mg/dL (0.55-1.02); Calcium 8.6 mg/dL (8.5-10.1); Chloride 101 mmol/L (98-107); Estimated GFR 27.98 (mL/min/1.73m2); Glucose 244 mg/dL (74-106); Potassium 3.5 mmol/L (3.5-5.1); Sodium 138 mmol/L (136-145); Total Protein 7.5 g/dL (6.4-8.2)
[2019-08-17 10:26] LABS: Bilirubin Negative (Negative); Blood Large (Negative); Clarity Clear (Clear); Glucose Negative (Negative); Ketones Negative (Negative); Leukocyte Esterase Small (Negative); Nitrite Positive (Negative); Specific Gravity 1.025 (1.005-1.025); Urobilinogen 0.2 EU/dL (Up TO 0.2); pH 5.5 (5-8)
[2019-08-17 10:35] LABS: Bacteria Many HPF (Negative); RBC >50 HPF (0-2); WBC >50 HPF (0-5)
[2019-08-17 10:36] LABS: C & S Indicated? Yes
--- NOTE | 2019-08-17 11:09 | HPE_ITS ---
Date of service: 08/17/19 Time of Service: 11:09 Assessment and Plan Assessment and plan (1) Urinary tract infection: Status: Acute Assessment and plan: admit to med/surg, continue ceftriaxone day 1 while awaiting culture for ID and sensitivites. Qualifiers: Urinary tract infection type: site unspecified Hematuria presence: without hematuria Qualified Code(s): N39.0 - Urinary tract infection, site not specified (2) C. difficile colitis: Status: Acute Assessment and plan: stable at this time, continue dificid (3) Acute kidney injury superimposed on chronic kidney disease: Status: Acute Assessment and plan: likely prerenal, will continue IV fluids, monitor kidney function, I&O, renal dose medication, (4) History of pulmonary embolism: Status: Chronic Assessment and plan: respiratory status stable, continue anticoagulation (5) Adrenal insufficiency: Status: Chronic Assessment and plan: low threshold for stress dose steroids. (6) Diabetes mellitus: Status: Chronic Assessment and plan: continue diabetic diet and current insulin regimen. will check blood sugar ac/hs and provide sliding scale coverage as needed. 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 History of Present Illness History of Present Illness Chief Complaint: weakness Narrative: Review of Systems Constitutional Constitutional: Reports lethargy, Reports poor appetite and Reports weakness Neurologic Neurologic: Reports weakness [facility] Medical History C. difficile diarrhea (Acute) Cancer related pain (Chronic) much improved with fentanyl patch Carpal tunnel syndrome (Acute) Chronic adrenal insufficiency (Acute) Chronic pain (Chronic) Chronic respiratory failure with hypoxia (Chronic) Chronic venous stasis dermatitis (Chronic) COPD (chronic obstructive pulmonary disease) (Chronic) On nocturnal oxygen - 2L prn Depression (Chronic) Diabetes mellitus (Chronic) Insulin dependent Diverticulosis (Acute) Dyslipidemia (Chronic) Goals of care, counseling/discussion (Acute) History of breast cancer (Chronic) metastatic, with lymphatic spread and bone mets Hyperlipidemia (Acute) Hypopituitarism (Chronic) Hypothyroidism (Chronic) Influenza B (Acute) Iron deficiency anemia (Acute) Metastatic breast cancer (Chronic) Obesity (Chronic) Obstructive sleep apnea (Chronic) per [facility] records Palliative care patient (Chronic) Pneumonia (Acute) POLST (Physician Orders for Life-Sustaining Treatment) (Acute) done 03/26/19; sent to [facility], [facility], [facility], original to her Restless leg syndrome (Acute) Spinal stenosis (Acute) Stage IV breast cancer in female (Chronic) Uncontrolled pain (Resolved) Surgical History H/O bilateral mastectomy (Acute) H/O colonoscopy with polypectomy (Acute) History of carpal tunnel release of both wrists (Acute) Port-A-Cath in place (Acute) Status post transsphenoidal pituitary resection (Acute) Family History Father , age 83 from complications of diabetes Prostate cancer Diabetes Mother , age 79 from complications of Crohn's disease and colitis Crohn's disease Colitis Daughter No problems noted. Daughter No problems noted. Brother No problems noted. Sister Diabetes Obesity Sister No problems noted. Sister No problems noted. Sister No problems noted. Social History Smoking/Tobacco Use Status: Former Tobacco Use Alcohol Intake: never Drug use: Never Substance use type: does not use Caregiver/Support person: Yes Household members: children Number of Children: 2 Communication Needs: Hard of Hearing and Corrective Lenses Education Level: middle school Do you need help understanding health information?: Always current occupation: on disability What is your relationship status?: How often do you talk on the phone with friends or family?: once per week How often do you get together with friends or relatives?: three or more times per week Panel score (0-1 are the most socially isolated patients): 1 What type of physical activity do you participate in: none, sedentary lifestyle, wheelchair-bound and additional Details: needs a new wheelchair, cannot walk far, just a few steps Special pedro pablo needs: No Do you feel safe at home: Yes Do you feel safe in your relationship?: Yes Additional Social history: , with 2 children. She is not working and on disability. Has a history of tobacco, quit in 1992. Reports rare use of alcohol only. Lives with daughter. Uses a walker to ambulate. Hard to do recently, depending more on WC. In a lot of pain. Recent scans show progression of breast cancer. Meds Home Medications and Allergies Home Medications Medication Instructions Recorded Confirmed Type Spiriva Respimat 1 puff INHALATION DAILY 04/03/17 08/17/19 History budesonide-formoterol [Symbicort] 2 puff INHALATION BID 04/03/17 08/17/19 History cyanocobalamin (vitamin B-12) 1,000 mcg PO DAILY 04/03/17 08/17/19 History [Vitamin B-12] folic acid 1 mg PO DAILY 04/03/17 08/17/19 History montelukast [Singulair] 10 mg PO DAILY 04/03/17 08/17/19 History ondansetron HCl [Zofran] 8 mg PO TID PRN 04/03/17 08/17/19 History pregabalin [Lyrica] 200 mg PO TID 04/03/17 08/17/19 History Trulicity 1.5 mg SUBCUT QWEEK 05/06/18 08/17/19 History levothyroxine 150 mcg PO DAILY 05/06/18 08/17/19 History benzonatate 200 mg PO TID PRN #15 cap 05/10/18 08/17/19 Rx duloxetine [Cymbalta] 60 mg PO HS 02/02/19 08/17/19 History loratadine 10 mg PO DAILY 02/02/19 08/17/19 History letrozole 2.5 mg PO DAILY 02/04/19 08/17/19 History hydrocodone-acetaminophen 2 tab PO Q4H PRN PRN #5 tab 03/28/19 08/17/19 Rx fentanyl 1 patch TD Q72H #2 each 04/20/19 08/17/19 Rx Eliquis 5 mg PO BID 07/25/19 08/17/19 History Glucagon (HCl) Emergency Kit 1 mg PRN PRN 07/25/19 08/17/19 History Humulin R U-500 (Conc) Kwikpen 40 unit SUBCUT QNOON 07/25/19 08/17/19 History Humulin R U-500 (Conc) Kwikpen 40 unit SUBCUT QPM 07/25/19 08/17/19 History Humulin R U-500 (Conc) Kwikpen 70 unit SUBCUT QAM 07/25/19 08/17/19 History Lactobacillus acidophilus 1 cap DAILY 07/25/19 08/17/19 History [Acidophilus] Narcan 1 spray INTRANASAL PRN PRN 07/25/19 08/17/19 History Verzenio 150 mg PO BID 07/25/19 08/17/19 History carbamazepine [Tegretol XR] 200 mg PO BID 07/25/19 08/17/19 History cranberry 450 mg PO DAILY 07/25/19 08/17/19 History ferrous sulfate 325 mg PO DAILY 07/25/19 08/17/19 History guaifenesin [Mucinex] 600 mg PO BID PRN 07/25/19 08/17/19 History omeprazole 40 mg PO DAILY 07/25/19 08/17/19 History oxybutynin chloride 5 mg PO TID 07/25/19 08/17/19 History Lactobacillus acidophilus 1,000 mmu cells PO BID #30 cap 08/01/19 08/17/19 Rx hydrocortisone 10 mg PO DAILY@1500 #0 tab 08/01/19 08/17/19 Rx hydrocortisone 30 mg PO DAILY #0 tab 08/01/19 08/17/19 Rx fidaxomicin [Dificid] 200 mg PO BID #15 tab 08/13/19 08/17/19 Rx Allergies Allergy/AdvReac Type Severity Reaction Status Date / Time bee venom protein (honey bee) Allergy Unknown Unverified 08/17/19 09:07 Latex, Natural Rubber AdvReac Intermediate Unverified 08/17/19 09:07 adhesive tape AdvReac Mild Unverified 08/17/19 09:07 Results Labs Result diagrams: 08/17/19 09:20 08/17/19 09:20 Labs: Laboratory Results - last 24 hr 08/17/19 08/17/19 08/17/19 09:20 09:20 09:20 WBC 5.77 RBC 3.30 L Hgb 9.8 L Hct 31.5 L MCV 95.5 H MCH 29.7 MCHC 31.1 L RDW 16.4 H Plt Count 306 MPV 9.2 Immature Gran % 0.2 Neutrophils % 70.5 Lymphocytes % 22.0 Monocytes % 5.5 Eosinophils % 1.6 Basophils % 0.2 Absolute Neutrophils 4.07 Absolute Lymphocytes 1.27 Absolute Monocytes 0.32 Absolute Eosinophils 0.09 Absolute Basophils 0.01 PT INR Sodium 138 Potassium 3.5 Chloride 101 Carbon Dioxide 25.6 Anion Gap 11.4 H BUN 10 Creatinine 1.84 H Estimated GFR/1.73 m2 27.98 Glucose 244 H Lactate 3.5 H* Calcium 8.6 Total Bilirubin 0.5 AST 25 ALT 13 L Alkaline Phosphatase 133 H Troponin I Total Protein 7.5 Albumin 2.9 L Urine Color Urine Clarity Urine pH Ur Specific [place] Urine Protein Urine Ketones Urine Blood Urine Nitrite Urine Bilirubin Urine Urobilinogen Ur Leukocyte Esterase Urine RBC Urine WBC Ur Epithelial Cells Urine Crystals Urine Bacteria Urine Mucus Ur Culture Indicated? Urine Glucose 08/17/19 08/17/19 08/17/19 09:20 09:20 10:18 WBC RBC Hgb Hct MCV MCH MCHC RDW Plt Count MPV Immature Gran % Neutrophils % Lymphocytes % Monocytes % Eosinophils % Basophils % Absolute Neutrophils Absolute Lymphocytes Absolute Monocytes Absolute Eosinophils Absolute Basophils PT 11.5 H INR 1.1 Sodium Potassium Chloride Carbon Dioxide Anion Gap BUN Creatinine Estimated GFR/1.73 m2 Glucose Lactate Calcium Total Bilirubin AST ALT Alkaline Phosphatase Troponin I < 0.05 Total Protein Albumin Urine Color Green Urine Clarity Clear Urine pH 5.5 Ur Specific [place] 1.025 Urine Protein >=300 H Urine Ketones Negative Urine Blood Large H Urine Nitrite Positive H Urine Bilirubin Negative Urine Urobilinogen 0.2 Ur Leukocyte Esterase Small H Urine RBC >50 H Urine WBC >50 H Ur Epithelial Cells Not Applicable Urine Crystals Not Applicable Urine Bacteria Many Urine Mucus Not Applicable Ur Culture Indicated? Yes Urine Glucose Negative Last Vital Signs Temp 36.6 C 08/17/19 08:59 Pulse 91 H 08/17/19 08:59 Resp 14 08/17/19 09:55 BP 109/39 L 08/17/19 08:59 Pulse Ox 93 L 08/17/19 08:59 COVID-19 Screening In the past 14 days, have you traveled outside of [place] or [place]?: NO Had IN PERSON contact w/suspected or confirmed C-19 person: No
[2019-08-17] MEDS: cefTRIAXone 1 GM/50 ML BAG IVPB (11:34)
[2019-08-17 12:17] VITALS: BP 95/61; PULSE 84; RESP 20; TEMP 37.9; O2SAT 99
[2019-08-17] MEDS: Lactated Ringers 1,000 ML 125 ML IV ×2 (12:25→20:01)
[2019-08-17 12:27] VITALS: BP 95/61; PULSE 84; RESP 20; TEMP 37.9; O2SAT 99
[2019-08-17] MEDS: Insulin Aspart 300 UNITS/3 ML PEN SC ×2 (12:54→17:44)
[2019-08-17 13:09] LABS: Troponin I < 0.05 ng/mL (<0.06)
--- NOTE | 2019-08-17 14:12 | NUR.NOTE ---
Nursing Note: pt arrived from ED at 1200. See page 2 for initial assessment and vitals
[2019-08-17] MEDS: Hydrocortisone 10 MG TAB PO (14:47)
[2019-08-17] MEDS: Pregabalin 100 MG CAP 200 MG PO ×2 (14:47→19:40)
[2019-08-17] MEDS: Oxybutynin 5 MG TAB PO ×2 (14:48→19:41)
[2019-08-17 15:31] VITALS: BP 145/69; PULSE 99; RESP 20; TEMP 37.6; O2SAT 96
[2019-08-17] MEDS: HYDROcodone 5/Acetaminophen 325 TAB PO (16:28)
--- NOTE | 2019-08-17 17:05 | PT.INNT ---
Date of service: 08/17/19 Time of Service: 13:18 PT Notes Visit Reasons: UTI,DEHYDRATION Patient declined to be seen for PT evaluation today stating that she would want to rest as she had a very exhausting day. She requested to be seen tomorrow morning instead. We will plan to see patient for initial physical therapy evaluation as ordered. Thank you very much for this referral. Allie Miguel PT, DPT, CLT [facility] In[facility] at [place], [place]
[2019-08-17 19:14] LABS: Lactate 1.8 mmol/L (0.6-1.4)
[2019-08-17] MEDS: Apixaban 5 MG TAB PO (19:40)
[2019-08-17] MEDS: Budesonide/Formoterol 160/4.5 6 GM 60 PUFF INH IH (19:42)
[2019-08-17] MEDS: DULoxetine 30 MG CAP 60 MG PO (21:29)
[2019-08-17 22:04] LABS: COVID-19 RT-PCR UVMMC Result Negative (Negative)
[2019-08-17 23:45] VITALS: BP 91/54; PULSE 98; RESP 22; TEMP 39.2; O2SAT 95
[2019-08-18] MEDS: Hydrocortisone SOD SUC. 100 MG VIAL IVP (00:15)
[2019-08-18] MEDS: Acetaminophen 325 MG TAB 650 MG PO (00:15)
[2019-08-18] MEDS: CIPROFLOXACIN 400 MG/200 ML BAG 200 MG IVPB ×3 (00:15→12:19)
[2019-08-18 00:26] VITALS: BP 126/52
[2019-08-18] MEDS: Lactated Ringers 500 ML IV (01:36)
[2019-08-18] MEDS: Lactated Ringers 1,000 ML 125 ML IV ×3 (02:42→19:43)
[2019-08-18 02:49] VITALS: BP 100/58; PULSE 107; RESP 16; TEMP 38; O2SAT 93
[2019-08-18] MEDS: Hydrocortisone SOD SUC. 100 MG VIAL 50 MG IVP ×3 (05:32→17:55)
[2019-08-18 05:35] VITALS: BP 107/64; PULSE 104; RESP 18; TEMP 37.4; O2SAT 93
[2019-08-18] MEDS: Levothyroxine 50 MCG TAB ×2 (05:59→06:06)
[2019-08-18] MEDS: Levothyroxine 100 MCG TAB (06:00)
[2019-08-18 07:29] LABS: Abs Immature Grans 0.01 k/cumm (0.0-0.09); Absolute Eosinophil Count 0.01 k/cumm (0.0-0.7); Absolute Lymphocyte Count 0.63 k/cumm (1.2-3.4); Absolute Monocyte Count 0.22 k/cumm (0.11-0.7); Absolute Neutrophil Count 4.23 k/cumm (1.2-6.7); Eosinophils % 0.2; HCT 26.2 % (36.0-46.0); HGB 8.1 g/dL (12.0-15.5); Immature Grans % 0.2 %; Lymphocytes % 12.4; Mean Corp. HGB Concentration 30.9 g/dL (32.0-36.0); Mean Corpuscular Hemoglobin 29.6 pg (27.0-33.0); Mean Corpuscular Volume 95.6 fL (80-95); Mean Platelet Volume 8.7 fL (8.0-11.0); Monocytes % 4.3; Neutrophils % 82.9; Platelet Count 201 x1000/uL (130-400); RBC 2.74 m/cumm (4.00-5.20); RBC Distribution Width 16.2 % (11.7-14.6)
[2019-08-18 07:32] VITALS: BP 92/63; PULSE 103; RESP 16; TEMP 37; O2SAT 94
[2019-08-18 07:45] LABS: Anion Gap 8.6 mmol/L (3-11); BUN 14 mg/dL (7-18); CO2 26.4 mmol/L (21.0-32.0); CREATININE 1.71 mg/dL (0.55-1.02); Calcium 8.7 mg/dL (8.5-10.1); Chloride 103 mmol/L (98-107); Estimated GFR 30.45 (mL/min/1.73m2); Glucose 218 mg/dL (74-106); Magnesium 1.9 mg/dL (1.8-2.4); Potassium 4.3 mmol/L (3.5-5.1); Sodium 138 mmol/L (136-145)
[2019-08-18] MEDS: Tiotropium Bromide-Respimat 10 PUFF INH IH (07:54)
[2019-08-18] MEDS: Budesonide/Formoterol 160/4.5 6 GM 60 PUFF INH IH ×2 (07:54→19:46)
[2019-08-18 08:00] LABS: Anisocytosis 1+; Diff Comment RBC Morph Reviewed; Hypochromasia 1+
[2019-08-18] MEDS: Insulin Aspart 300 UNITS/3 ML PEN SC ×3 (08:16→17:11)
[2019-08-18] MEDS: Pregabalin 100 MG CAP 200 MG PO ×3 (08:25→19:49)
[2019-08-18] MEDS: Oxybutynin 5 MG TAB PO ×3 (08:26→19:49)
[2019-08-18] MEDS: Montelukast 10 MG TAB PO (08:26)
[2019-08-18] MEDS: Loratidine 10 MG TAB PO (08:26)
[2019-08-18] MEDS: Famotidine 20 MG TAB PO (08:26)
[2019-08-18] MEDS: Ferrous Sulfate 325 MG TAB PO (08:27)
[2019-08-18] MEDS: Cyanocobalamin 500 MCG TAB 1000 MCG PO (08:27)
[2019-08-18] MEDS: Folic Acid 1 MG TAB PO (08:27)
[2019-08-18] MEDS: Apixaban 5 MG TAB PO ×2 (08:27→19:49)
--- NOTE | 2019-08-18 09:21 | W.PM.PROGNOT ---
Date of Service Date of service: 08/18/19 Time of Service: 09:21 Assessment and Plan Assessment and plan (1) Urinary tract infection: Status: Acute Assessment and plan: awaiting culture reports, continue ceftriaxone day 2 cipro added as she was febrile last night. Qualifiers: Hematuria presence: without hematuria Urinary tract infection type: site unspecified Qualified Code(s): N39.0 - Urinary tract infection, site not specified (2) C. difficile colitis: Status: Acute Assessment and plan: stable at this time, continue dificid (3) Acute kidney injury superimposed on chronic kidney disease: Status: Acute Assessment and plan: likely prerenal, improving with IV fluids, monitor kidney function, I&O, renal dose medication, (4) History of pulmonary embolism: Status: Chronic Assessment and plan: respiratory status stable, continue anticoagulation (5) Adrenal insufficiency: Status: Chronic Assessment and plan: on stress dose steroids as she was hypotensive last night. will resume usual dosing after completed. (6) Diabetes mellitus: Status: Chronic Assessment and plan: continue diabetic diet and current insulin regimen. will check blood sugar ac/hs and provide sliding scale coverage as needed. hemoglobin A1C 8.06 June 2019 Qualifiers: Chronic kidney disease stage: stage 3 (moderate) Diabetes mellitus complication detail: with chronic kidney disease Diabetes mellitus complication status: with kidney complications Diabetes mellitus retirement insulin use: with bed bug exterminator use Diabetes mellitus type: type 2 Qualified Code(s): E11.22 - Type 2 diabetes mellitus with diabetic chronic kidney disease; N18.3 - Chronic kidney disease, stage 3 (moderate); Z79.4 - FPC (current) use of insulin (7) COPD (chronic obstructive pulmonary disease): Status: Chronic Assessment and plan: stable, continue home medication (8) Physical deconditioning: Status: Chronic Assessment and plan: PT consult (9) DVT prophylaxis: Status: Acute Assessment and plan: fully anticoagulated (10) Discharge planning issues: Status: Acute Assessment and plan: case management will be following. plan is to discharge to home with resumption of services. case and plan of care discussed with Dr Bahena who is in agreement Subjective Subjective Patient reports: afebrile Interval history since last seen: no diarrhea or abdominal pain, reports she feels weak and tired still. last night with hypotension and fever. received stress dose steroids and cipro added. still awaking cultures. Exam Narrative Exam Narrative: Const General: cooperative and no acute distress Nutritional Appearance: obese Orientation: alert, awake and oriented x3 HENMT Head: normal to inspection, normocephalic and atraumatic Mouth: oral mucosae normal Teeth and gingiva: edentulous Resp Effort & Inspection: normal respiratory effort Auscultation: clear to auscultation bilaterally and diminished lung sounds bilaterally Cardio Rate: regular rate Rhythm: regular rhythm GI Inspection: large pannus and obesity Palpation: soft Auscultation: normal bowel sounds Skin Lesions: lesion noted Neuro General: patient alert, patient awake and patient oriented x3 Cranial Nerves: CN's II-XI intact bilaterally Cognition: normal cognition Speech: speech normal Motor: muscle tone normal throughout Extrem General: full ROM and edema (trace, reports no increased edema, chronic discoloration to BLE) Laterality: bilateral Psych Mental Status: mental status grossly normal Speech and Movement: speech and movement normal Mood: congruent mood Affect: normal affect Objective Objective Clinical Data: Abnormal lab results 08/17/19 08/17/19 08/17/19 Range/Units 09:20 09:20 09:20 RBC 3.30 L (4.00-5.20) m/cumm Hgb 9.8 L (12.0-15.5) g/dL Hct 31.5 L (36.0-46.0) % MCV 95.5 H (80-95) fL MCHC 31.1 L (32.0-36.0) g/dL RDW 16.4 H (11.7-14.6) % Absolute Lymphocytes (1.2-3.4) k/cumm PT (9.3-11.0) sec Anion Gap 11.4 H (3-11) mmol/L Creatinine 1.84 H (0.55-1.02) mg/dL Glucose 244 H (74-106) mg/dL Lactate 3.5 H* (0.6-1.4) mmol/L ALT 13 L (14-59) U/L Alkaline Phosphatase 133 H (46-116) U/L Albumin 2.9 L (3.4-5.0) g/dL Urine Protein (Negative) mg/dL Urine Blood (Negative) Urine Nitrite (Negative) Ur Leukocyte Esterase (Negative) Urine RBC (0-2) HPF Urine WBC (0-5) HPF 08/17/19 08/17/19 08/17/19 Range/Units 09:20 10:18 19:00 RBC (4.00-5.20) m/cumm Hgb (12.0-15.5) g/dL Hct (36.0-46.0) % MCV (80-95) fL MCHC (32.0-36.0) g/dL RDW (11.7-14.6) % Absolute Lymphocytes (1.2-3.4) k/cumm PT 11.5 H (9.3-11.0) sec Anion Gap (3-11) mmol/L Creatinine (0.55-1.02) mg/dL Glucose (74-106) mg/dL Lactate 1.8 H (0.6-1.4) mmol/L ALT (14-59) U/L Alkaline Phosphatase (46-116) U/L Albumin (3.4-5.0) g/dL Urine Protein >=300 H (Negative) mg/dL Urine Blood Large H (Negative) Urine Nitrite Positive H (Negative) Ur Leukocyte Esterase Small H (Negative) Urine RBC >50 H (0-2) HPF Urine WBC >50 H (0-5) [facility] 08/18/19 08/18/19 Range/Units 07:15 07:15 RBC 2.74 L (4.00-5.20) m/cumm Hgb 8.1 L (12.0-15.5) g/dL Hct 26.2 L (36.0-46.0) % MCV 95.6 H (80-95) fL MCHC 30.9 L (32.0-36.0) g/dL RDW 16.2 H (11.7-14.6) % Absolute Lymphocytes 0.63 L (1.2-3.4) k/cumm PT (9.3-11.0) sec Anion Gap (3-11) mmol/L Creatinine 1.71 H (0.55-1.02) mg/dL Glucose 218 H (74-106) mg/dL Lactate (0.6-1.4) mmol/L ALT (14-59) U/L Alkaline Phosphatase (46-116) U/L Albumin (3.4-5.0) g/dL Urine Protein (Negative) mg/dL Urine Blood (Negative) Urine Nitrite (Negative) Ur Leukocyte Esterase (Negative) Urine RBC (0-2) HPF Urine WBC (0-5) HPF Vital Signs Temperature 37.4 C 08/18/19 05:35 Temperature Source Tympanic 08/18/19 05:35 Pulse 104 H 08/18/19 05:35 Pulse Rhythm Regular 08/18/19 02:16 Respiratory Rate 18 08/18/19 05:35 Respiratory Effort 08/18/19 02:16 Respiratory Depth Shallow 08/18/19 02:16 Respiratory Pattern Normal 08/18/19 02:16 Blood Pressure 107/64 08/18/19 05:35 Blood Pressure Position Sitting 08/17/19 08:59 Pulse Oximetry 93 L 08/18/19 05:35 Oxygen Delivery Method Nasal Cannula 08/18/19 05:35 Oxygen Flow Rate 2 08/18/19 05:35 Pain Level 0 08/18/19 05:35 Comment 08/18/19 00:26 Intake & Output 08/17/19 08/17/19 08/18/19 11:59 23:59 11:59 Intake Total 243.333 / 5908.226 9230 / 9251.557 8859.417 / 1565.417 Output Total 200 / 275 75 / 275 1700 / 1700 Balance 43.333 / 1153.429 8634 / 1218.333 -134.583 / -134.583 Weight 152.4 kg 152.4 kg 154.6 kg Intake: IV 243.333 / 4786.057 3018 / 2560.822 6195.417 / 1035.417 Oral 250 / 250 530 / 530 Output: Urine 200 / 275 75 / 275 1700 / 1700 Other: Urine Color Dark Giselle Dark Giselle Yellow Urine Appearance Cloudy Cloudy Clear Urine Odor Normal Voiding Methods Indwelling Catheter Laboratory Results WBC 5.10 k/cumm (4.4-10.8) 08/18/19 07:15 RBC 2.74 m/cumm (4.00-5.20) L 08/18/19 07:15 Hgb 8.1 g/dL (12.0-15.5) L 08/18/19 07:15 Hct 26.2 % (36.0-46.0) L 08/18/19 07:15 MCV 95.6 fL (80-95) H 08/18/19 07:15 MCH 29.6 pg (27.0-33.0) 08/18/19 07:15 MCHC 30.9 g/dL (32.0-36.0) L 08/18/19 07:15 RDW 16.2 % (11.7-14.6) H 08/18/19 07:15 Plt Count 201 x1000/uL (130-400) D 08/18/19 07:15 MPV 8.7 fL (8.0-11.0) 08/18/19 07:15 Immature Gran % 0.2 % 08/18/19 07:15 Neutrophils % 82.9 08/18/19 07:15 Lymphocytes % 12.4 08/18/19 07:15 Monocytes % 4.3 08/18/19 07:15 Eosinophils % 0.2 08/18/19 07:15 Basophils % 0.0 08/18/19 07:15 Absolute Neutrophils 4.23 k/cumm (1.2-6.7) 08/18/19 07:15 Absolute Lymphocytes 0.63 k/cumm (1.2-3.4) L 08/18/19 07:15 Absolute Monocytes 0.22 k/cumm (0.11-0.7) 08/18/19 07:15 Absolute Eosinophils 0.01 k/cumm (0.0-0.7) 08/18/19 07:15 Absolute Basophils 0.00 k/cumm (0.0-0.2) 08/18/19 07:15 Differential Comment Rbc morph reviewed 08/18/19 07:15 RBC Morphology See below 08/18/19 07:15 Hypochromasia 1+ 08/18/19 07:15 Anisocytosis 1+ 08/18/19 07:15 PT 11.5 sec (9.3-11.0) H 08/17/19 09:20 INR 1.1 (0.9-1.1) 08/17/19 09:20 Sodium 138 mmol/L (136-145) 08/18/19 07:15 Potassium 4.3 mmol/L (3.5-5.1) D 08/18/19 07:15 Chloride 103 mmol/L (98-107) 08/18/19 07:15 Carbon Dioxide 26.4 mmol/L (21.0-32.0) 08/18/19 07:15 Anion Gap 8.6 mmol/L (3-11) 08/18/19 07:15 BUN 14 mg/dL (7-18) 08/18/19 07:15 Creatinine 1.71 mg/dL (0.55-1.02) H 08/18/19 07:15 Estimated GFR/1.73 m2 30.45 (mL/min/1.73m2) 08/18/19 07:15 Glucose 218 mg/dL (74-106) H 08/18/19 07:15 Lactate 1.8 mmol/L (0.6-1.4) H 08/17/19 19:00 Calcium 8.7 mg/dL (8.5-10.1) 08/18/19 07:15 Magnesium 1.9 mg/dL (1.8-2.4) 08/18/19 07:15 Total Bilirubin 0.5 mg/dL (0.2-1.0) 08/17/19 09:20 AST 25 U/L (15-37) 08/17/19 09:20 ALT 13 U/L (14-59) L 08/17/19 09:20 Alkaline Phosphatase 133 U/L (46-116) H 08/17/19 09:20 Troponin I < 0.05 ng/mL (<0.06) 08/17/19 12:15 Total Protein 7.5 g/dL (6.4-8.2) 08/17/19 09:20 Albumin 2.9 g/dL (3.4-5.0) L 08/17/19 09:20 Urine Color Loyal (Yellow) 08/17/19 10:18 Urine Clarity Clear (Clear) 08/17/19 10:18 Urine pH 5.5 (5-8) 08/17/19 10:18 Ur Specific [place]ley 1.025 (1.005-1.025) 08/17/19 10:18 Urine Protein >=300 mg/dL (Negative) H 08/17/19 10:18 Urine Ketones Negative mg/dL (Negative) 08/17/19 10:18 Urine Blood Large (Negative) H 08/17/19 10:18 Urine Nitrite Positive (Negative) H 08/17/19 10:18 Urine Bilirubin Negative (Negative) 08/17/19 10:18 Urine Urobilinogen 0.2 EU/dL (Up TO 0.2) 08/17/19 10:18 Ur Leukocyte Esterase Small (Negative) H 08/17/19 10:18 Urine RBC >50 HPF (0-2) H 08/17/19 10:18 Urine WBC >50 HPF (0-5) H 08/17/19 10:18 Ur Epithelial Cells Not Applicable 08/17/19 10:18 Urine Crystals Not Applicable 08/17/19 10:18 Urine Bacteria Many HPF (Negative) 08/17/19 10:18 Urine Mucus Not Applicable 08/17/19 10:18 Ur Culture Indicated? Yes 08/17/19 10:18 Urine Glucose Negative mg/dL (Negative) 08/17/19 10:18 COVID-19 PCR Negative (Negative) 08/17/19 11:00 Nasopharyn COVID-19 PCR Not Applicable 08/17/19 11:00 Ref Test [facility] 08/17/19 11:00
--- NOTE | 2019-08-18 09:35 | IN_ITS ---
Date of service: 08/18/19 Time of Service: 09:35 PT Notes Visit Reasons: UTI,DEHYDRATION Physical Therapy Inpatient Initial Evaluation Date: 08/18/2019 Referring Doctor: Bhargavi Myers NP PT Orders: PT CONSULT: Limited ability Precautions: Fall. Standard. Activity as tolerated. Patient Profile/Admitting Diagnosis: Candace is a 59-year-old female who presented to the ED on 08/17/2019 with chief complaints of generalized weakness and inability to safely ambulate. Patient is diagnosed with UTI,acute dehydration, C. difficile colitis, acute kidney injury, and pulmonary embolism and with referral for skilled physical therapy services in order to address resulting impairments in mobility performance. PMHX: Medical History C. difficile diarrhea (Acute) Cancer related pain (Chronic) much improved with fentanyl patch Carpal tunnel syndrome (Acute) Chronic adrenal insufficiency (Acute) Chronic pain (Chronic) Chronic respiratory failure with hypoxia (Chronic) Chronic venous stasis dermatitis (Chronic) COPD (chronic obstructive pulmonary disease) (Chronic) On nocturnal oxygen - 2L prn Depression (Chronic) Diabetes mellitus (Chronic) Insulin dependent Diverticulosis (Acute) Dyslipidemia (Chronic) Goals of care, counseling/discussion (Acute) History of breast cancer (Chronic) metastatic, with lymphatic spread and bone mets Hyperlipidemia (Acute) Hypopituitarism (Chronic) Hypothyroidism (Chronic) Influenza B (Acute) Iron deficiency anemia (Acute) Metastatic breast cancer (Chronic) Obesity (Chronic) Obstructive sleep apnea (Chronic) per [facility] [place] [facility] records Palliative care patient (Chronic) Pneumonia (Acute) POLST (Physician Orders for Life-Sustaining Treatment) (Acute) done 03/26/19; sent to [facility], [facility], [facility] to her Restless leg syndrome (Acute) Spinal stenosis (Acute) Stage IV breast cancer in female (Chronic) Uncontrolled pain (Resolved) Surgical History H/O bilateral mastectomy (Acute) H/O colonoscopy with polypectomy (Acute) History of carpal tunnel release of both wrists (Acute) Port-A-Cath in place (Acute) Status post transsphenoidal pituitary resection (Acute) Social History/Home Situation: Candace lives with her daughter in [place], [place] in a two-story house with a ramp to enter with rails on both sides. Patient has stairs to the second floor of the house but has everything she needs on the first floor. She is disabled. She has 2 daughters locally. She receives choices for care highest needs, and her daughter Kiki is her primary provider for 12 years now. Kiki's provides assistance with bathing and does meal preapration and assistance with lower body dressing. She was independent with front-wheeled walker for in-house ambulation and uses the 4-wheeled walker for outdoor ambulation. She has to walk about 80-90 feet to get to her car. She is dependent on her daughter for transportation to and from appointments. Daughter also provides assistance with bathing patient's back due to body habitus. Equipment Owned/DME: Bariatric FWW, bariatric hospital bed, bariatric recliner, bariatric front wheeled walker, new bariatric wheelchair with seat and back cushions Subjective: Patient is seen resting recliner chair. Denies any headache, chest pain, and lightheadedness. Patient reports that 6-7/10 in her low back area that is aggravated with weight bearing activity Objective: General Observation: Hemosiderin staining observed in bilateral distal legs from CVI. Abdominal panniculus. Mental Status: Alert and oriented x 4 Pain: 6-7/10 low back area ROM: Right Upper Extremity: Shoulder flexion 90-100 degrees. Elbow flexion WFL. Hands/wrist and fingers are WFL. Left Upper Extremity: Shoulder flexion 90-100 degrees. Elbow flexion WFL. Hands/wrist and fingers are WFL. Right Lower Extremity: Patient is able to bend hip to about 20 degrees beyond 90 while seated at edge of bed. Knee flexion WFL. Dorsiflexion/plantarflexion WFL. Left Lower Extremity: Patient is able to bend hip to about 10 degrees beyond 90 while seated at edge of bed. Knee flexion WFL. Dorsiflexion/plantarflexion WFL. Strength: Right Upper Extremity: Shoulder flexion 3-/5. Elbow flexion 4/5. Palm And Back Forger strong and functional Left Upper Extremity: Shoulder flexion 3-/5. Elbow flexion 4/5. Palm And Back Forger strong and functional. Right Lower Extremity: Hip flexion 3-/5. Hip extension 3/5. Knee flexion 4/-5. Knee extension 4-/5. Ankle dorsiflexion/plantarflexion 4/5. Left Lower Extremity: Hip flexion 3-/5. Hip extension 3/5. Knee flexion 4-/5. Knee extension 4-/5. Ankle dorsiflexion/plantarflexion 4/5. Bed Mobility/Transfers: Sit to stand from bedside recliner moderate assist of 2 requiring use of B hands and assistance of CATTLE EXAMINER Mary Carmen and PT for safety Stand to sit minimal assist of 1 Bed to chair moderate assist of 2 requiring use of B hands and assistance of CATTLE EXAMINER Mary Carmen and PT for safety Chair to bed moderate assist of 2 requiring use of B hands and assistance of CATTLE EXAMINER Mary Carmen and PT for safety Gait: Patient tolerated level surface ambulation of 50 feet using bariatric front wheeled walker with minimal assist of PT and wheelchair follow of nurse Amy for safety. Patient demonstrated significant breathlessness and fatigue after activity. Step to gait pattern. Balance: Static Sitting: Good Dynamic Sitting: Good Static Standing: Fair Dynamic Standing: Fair Special Tests: Mobility Limitations Standardized Measure [facility] 6 clicks Basic Mobility Inpatient Short Form: Raw Score: 12 CMS Score: 69 % deficit Informed Consent/Education: Patient was instructed in purpose of PT consult and plan of care. Assessment: Candace demonstrates functional mobility decline requiring use of front wheeled walker for mobility ADL performance, unsteadiness of gait, decreased activity tolerance, and generalized weakness resulting from admitting diagnoses. Candace is a 59-year-old female who presented to the ED on 08/17/2019 with chief complaints generalized weakness, and inability to safely ambulate. Patient presents with clinical signs and symptoms consistent with current/ad mitting diagnoses that have resulted to mobility limitations, gait instability, generalized weakness, and impairment of motor control as demonstrated by the following impairment level findings: 1. Decreased range of motion for hip and knees bilaterally 2. Impaired strength to B LE 3. Impaired activity tolerance 4. Decreased balance skills 5. Pain on B hips Impairments are contributing to the following functional limitations: 1. Increased risk for falls due to balance impairments 2. Limited ambulation distance 3. Need for assistive device for all mobility ADL performance 4. Increased fall risk 5. Dependent bed mobility 6. Inability to perform transfer activities due to pain on both in both hips Patient is assessed as a moderate 45050 complexity based on the following: History: 59-year-old female with impairment level findings, functional limitations, and [facility] deficits score of Examination: Decline in mobility level, strength deficits, and activity tolerance limitations as above due to current diagnoses Presentation: Evolving Decision Making: Moderate complexity 99381 Goals: Goals X 1 week 1. Supine-Sit minimal assist 2. Sit-Supine minimal assist 3. Sit-Stand minimal assist 4. Stand-Sit minimal assist 5. Bed-Chair minimal assist 6. Chair-Bed minimal assist 7. Indoor ambulation using FWW for at least 50 feet 8. Independent with home exercise program 9. Static/dynamic standing balance/tolerance good Plan of Care/Treatment Plan: 1-2x/day, 7 days/week x 1 week. Plan of care has been reviewed with the ON AWAKE COUNSELOR providing the service under Physical Therapy direction. Initiate Physical Therapy intervention for strengthening, bed mobility, transfers, gait, stairs, balance training, use of assistive device, HEP education/training. DISCHARGE RECOMMENDATIONS: Patient will benefit from home health PT services in order to progress mobility level using four-wheeled walker, assess home safety, identify additional equipment needs, and cotninue with a functional maintenance program that will increase ability of patient to remain at home with daughter. TREATMENT CODE/TIME: 79311 x 20, 38796 x 15 minutes beginning at 9:35 AM. Thank you very much for this referral. Allie Miguel PT, DPT, CLT [facility] Inpatient PT at [place], [place]
--- NOTE | 2019-08-18 10:08 | INITIAL_ITS ---
- If Service Date Differs Date of service: 08/18/19 Time of Service: 10:08 Care Management Initial Assess REASON FOR HOSPITALIZATION:: UTI, Dehydration PAST MEDICAL HISTORY/PAST SURGICAL HISTORY:: Medical History . C. difficile diarrhea (Acute). Cancer related pain (Chronic). much improved with fentanyl patch. Carpal tunnel syndrome (Acute). Chronic adrenal insufficiency (Acute). Chronic pain (Chronic). Chronic respiratory failure with hypoxia (Chronic). Chronic venous stasis dermatitis (Chronic). COPD (chronic obstructive pulmonary disease) (Chronic). On nocturnal oxygen - 2L prn. Depression (Chronic). Diabetes mellitus (Chronic). Insulin dependent. Diverticulosis (Acute). Dyslipidemia (Chronic). Goals of care, counseling/discussion (Acute). History of breast cancer (Chronic). metastatic, with lymphatic spread and bone mets. Hyperlipidemia (Acute). Hypopituitarism (Chronic). Hypothyroidism (Chronic). Influenza B (Acute). Iron deficiency anemia (Acute). Metastatic breast cancer (Chronic). Obesity (Chronic). Obstructive sleep apnea (Chronic). per [facility] [place] [facility] records. Palliative care patient (Chronic). Pneumonia (Acute). POLST (Physician Orders for Life-Sustaining Treatment) (Acute). done 03/26/19; sent to [facility], [facility], [facility] to her. Restless leg syndrome (Acute). Spinal stenosis (Acute). Stage IV breast cancer in female (Chronic). Uncontrolled pain (Resolved). Surgical History . H/O bilateral mastectomy (Acute). H/O colonoscopy with polypectomy (Acute). History of carpal tunnel release of both wrists (Acute). Port-A-Cath in place (Acute). Status post transsphenoidal pituitary resection (Acute) PREVIOUS FUNCTIONAL STATUS/SOCIAL/FAMILY SUPPORTS:: Candace lives in a single family home with her daughter Kiki and her children, in [facility]. She has two daughters who reside locally. She is currently disabled and receives [facility] highest needs. Kiki is her primary caregiver. Candace utilizes a walker for ambulation, and a wheeled walker for distance. She is dependent on her daughter for transportation to and from appointments. CURRENT FUNCTIONAL STATUS:: Candace was sitting up in her chair when CM met with her. She was very pleasant and engaged in conversation. She stated that things have been going very well at home, but she is having recurrent infections. She is starting to feel better today. She will work with PT. CM will continue to follow. ADVANCE DIRECTIVES:: On file, Kiki MARIE. Has patient been provided with info about the portal/API?: Yes Did the patient sign up for the portal?: No CODE STATUS:: DNR/DNI INSURANCE COVERAGE / FINANCIAL ISSUES:: MCR/ KARUNA CURRENT HOME/COMMUNITY SERVICES/EQUIPMENT:: Candace has [facility], [facility]. She uses a walker for ambulation and has home health nursing through [facility] PRIMARY CARE PHYSICIAN:: Nurys Martinez POTENTIAL DISCHARGE NEEDS:: Evaluations for further needs, follow up appointments PATIENT/FAMILY EDUCATION NEEDS:: Discharge plan, limitations, follow up plan, Ask Me Three ANTICIPATED BARRIERS TO DISCHARGE:: None identified at this time. TRANSPORTATION:: via private vehicle by Kiki PLAN:: Candace will likely be discharged home with a resumption of home health services through [facility]. She will follow up with her PCP, rug cleaning supervisor and discharge plan of care.CM will continue to support patient, family and discharge planning concerns. Readmission - Within the Past 30 Days Yes or No: Y - Date of First Admission Date of 1st Admission: 08/10/19 - Date of this Admission Date of Admission: 08/17/19 This admission was: Through ED - If the patient had a VNA ordered Did the patient have a VNA order?: Yes Did you call the VNA before you came?: Yes Did the VNA tell you to come to the hospital?: Yes Do you know if the VNA called your physician?: No - If the patient had home care service Call them to discuss the patient's admission: CM talked to [facility], who stated that she currently has RN and PT. They stated that she is cared for by her daughter, Kiki, who is very supportive and does her best to keep her out of the hospital. They are unsure why there have been so many admissions recently. In the past they have not been open to Palliative/Hospice care, but they will discuss it again. - ED visits How many ED visits in the past 12 months: 11 - Assessment for Readmission Summary of readmission circumstances, based upon interviews: Candace has had several readmissions recently. CM spoke to Candace, who stated that things are going well at home, but she keeps having recurrent infections and is not sure how to stop them from happening. She reported that she may be a candidate for stool replacement, which she is happy about. CM spoke to [facility] who stated that Kiki takes good care of her at home, and that they were alerted that she was inpatient. CM will continue to follow.
[2019-08-18] MEDS: fentaNYL 50 MCG PATCH TD (10:20)
[2019-08-18] MEDS: cefTRIAXone 1 GM/50 ML BAG IVPB (11:40)
[2019-08-18] MEDS: Normal Saline Flush 10 ML SYR IVP ×2 (12:13→17:55)
--- NOTE | 2019-08-18 13:49 | CHAPLAIN ---
Candace was in her chair watching tv when I visited. She was here last week, and then a couple of weeks before that. She said she was mistakenly taken off one of her antibiotics that she was taking usp, and developed a UTI. Candace's daughter Kiki cares for Candace at home. Candace said she is missing being home and sitting outside listening to the birds. She is in touch with Kiki by phone.
--- NOTE | 2019-08-18 14:49 | PTTR_ITS ---
Date of service: 08/18/19 Time of Service: 14:49 PT Notes Visit Reasons: UTI,DEHYDRATION Inpatient Physical Therapy Treatment Note [facility] Date: 08/18/2019 PRECAUTIONS: Fall. Standard. Activity as tolerated. SUBJECTIVE: Patient reported that she did well after ambulation activity from this morning. She is agreeable to trying out another walk for this session. When asked if she would consider going to a group home facility, she was firm about not going anywhere else but home and she was adamant that her daughter would know best. OBJECTIVE: PAIN: Baseline pain of 6?7/10 in low back area specially during weightbearing activity. BED MOBILITY/TRANSFERS Sit-stand from bedside reclining chair moderate assist x2 Stand-sit: Minimal assist of 1 Bed to chair: Minimal assist x2 GAIT Assistive Device: Front wheeled walker Weight bearing: Full weight bearing Assist: Contact-guard assist Distance: 75 feet Deviation: Wide-based gait. Step to gait pattern. Decreased julia. Minimal breathlessness seen after gait activity. ASSESSMENT: Patient is agreeable to slow progression of ambulation activity twice a day. She will continue to benefit from skilled physical therapy services progress mobility level. PLAN: Patient will benefit from home health PT services in order to progress mobility level using least restrictive assistive ambulatory device, assess home safety, identify additional equipment needs, and establish a functional maintenance program that will increase ability of patient to remain at home. TREATMENT CODE/TIME: 86207 x 30 minutes beginning at 14:49 PM.
[2019-08-18 16:10] VITALS: BP 120/61; PULSE 88; RESP 20; TEMP 36.4; O2SAT 94
[2019-08-18 19:53] VITALS: BP 147/79; PULSE 89; RESP 20; TEMP 36.5; O2SAT 94
[2019-08-18] MEDS: DULoxetine 30 MG CAP 60 MG PO (21:44)
[2019-08-19] MEDS: Normal Saline Flush 10 ML SYR IVP ×5 (00:41→19:49)
[2019-08-19] MEDS: Hydrocortisone SOD SUC. 100 MG VIAL 50 MG IVP ×3 (00:42→12:22)
[2019-08-19] MEDS: CIPROFLOXACIN 400 MG/200 ML BAG 200 MG IVPB ×3 (00:43→23:28)
[2019-08-19 03:33] VITALS: BP 145/76; PULSE 79; RESP 18; TEMP 36.5; O2SAT 96
[2019-08-19] MEDS: Lactated Ringers 1,000 ML 125 ML IV (04:53)
[2019-08-19] MEDS: Levothyroxine 150 MCG TAB PO (06:39)
[2019-08-19 07:17] VITALS: BP 131/63; PULSE 74; RESP 16; TEMP 36.5; O2SAT 94
[2019-08-19] MEDS: Tiotropium Bromide-Respimat 10 PUFF INH IH (07:47)
[2019-08-19] MEDS: Budesonide/Formoterol 160/4.5 6 GM 60 PUFF INH IH ×2 (07:47→19:45)
[2019-08-19] MEDS: Pregabalin 100 MG CAP 200 MG PO ×3 (08:03→19:45)
[2019-08-19] MEDS: Montelukast 10 MG TAB PO (08:04)
[2019-08-19] MEDS: Oxybutynin 5 MG TAB PO ×3 (08:04→19:45)
[2019-08-19] MEDS: Ferrous Sulfate 325 MG TAB PO (08:04)
[2019-08-19] MEDS: Folic Acid 1 MG TAB PO (08:04)
[2019-08-19] MEDS: Loratidine 10 MG TAB PO (08:04)
[2019-08-19] MEDS: Famotidine 20 MG TAB PO (08:04)
[2019-08-19] MEDS: Apixaban 5 MG TAB PO ×2 (08:05→19:45)
[2019-08-19] MEDS: Insulin Aspart 300 UNITS/3 ML PEN SC ×3 (08:07→17:45)
[2019-08-19] MEDS: Cyanocobalamin 500 MCG TAB 1000 MCG PO (09:24)
[2019-08-19] MEDS: cefTRIAXone 1 GM/50 ML BAG IVPB (09:45)
--- NOTE | 2019-08-19 10:49 | W.PM.PROGNOT ---
Date of Service Date of service: 08/19/19 Time of Service: 10:49 Assessment and Plan Assessment and plan (1) Urinary tract infection: Status: Acute Assessment and plan: no further fevers, still awaiting culture reports, continue ceftriaxone day 3 cipro day 2. Qualifiers: Hematuria presence: without hematuria Urinary tract infection type: site unspecified Qualified Code(s): N39.0 - Urinary tract infection, site not specified (2) C. difficile colitis: Status: Acute Assessment and plan: stable at this time, continue dificid (3) Acute kidney injury superimposed on chronic kidney disease: Status: Acute Assessment and plan: likely prerenal, improving with IV fluids, monitor kidney function, I&O, renal dose medication, (4) History of pulmonary embolism: Status: Chronic Assessment and plan: respiratory status stable, continue anticoagulation (5) Adrenal insufficiency: Status: Chronic Assessment and plan: received stress dose steroids as she was hypotensive night of admission. will resume usual home dosing after completed. (6) Diabetes mellitus: Status: Chronic Assessment and plan: blood sugars elevated d/t increased steroid dosing, continue diabetic diet and current insulin regimen. will check blood sugar ac/hs and provide sliding scale coverage as needed. 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 plan is to discharge to home with resumption of services. case and plan of care discussed with Dr Bahena who is in agreement Subjective Subjective Patient reports: no new complaints, tolerating liquids well, tolerating a regular diet, bowel movement (soft) and afebrile Exam Narrative Exam Narrative: Const General: cooperative and no acute distress Nutritional Appearance: obese Orientation: alert, awake and oriented x3 HENMT Head: normal to inspection, normocephalic and atraumatic Mouth: oral mucosae normal Teeth and gingiva: edentulous Resp Effort & Inspection: normal respiratory effort Auscultation: clear to auscultation bilaterally and diminished lung sounds bilaterally Cardio Rate: regular rate Rhythm: regular rhythm GI Inspection: large pannus and obesity Palpation: soft Auscultation: normal bowel sounds Skin Lesions: lesion noted Neuro General: patient alert, patient awake and patient oriented x3 Cranial Nerves: CN's II-XI intact bilaterally Cognition: normal cognition Speech: speech normal Motor: muscle tone normal throughout Extrem General: full ROM and edema (trace, reports no increased edema, chronic discoloration to BLE) Laterality: bilateral Psych Mental Status: mental status grossly normal Speech and Movement: speech and movement normal Mood: congruent mood Affect: normal affect Objective Objective Clinical Data: Vital Signs Temperature 36.5 C 08/19/19 07:17 Temperature Source Tympanic 08/19/19 07:17 Pulse 74 08/19/19 07:17 Pulse Rhythm Regular 08/19/19 10:31 Respiratory Rate 16 08/19/19 07:17 Respiratory Effort Non-Labored 08/19/19 10:31 Respiratory Depth Normal 08/19/19 10:31 Respiratory Pattern Normal 08/19/19 10:31 Blood Pressure 131/63 08/19/19 07:17 Blood Pressure Position Sitting 08/17/19 08:59 Pulse Oximetry 94 L 08/19/19 07:17 Oxygen Delivery Method Room Air 08/19/19 07:17 Oxygen Flow Rate 0 08/19/19 07:17 Pain Level 6 08/19/19 07:17 Comment 08/18/19 00:26 Intake & Output 08/18/19 08/18/19 08/19/19 11:59 23:59 11:59 Intake Total 2632.917 / 4235.000 1602.083 / 4235.000 1300 / 1300 Output Total 1700 / 2550 850 / 2550 600 / 600 Balance 932.917 / 1685.000 752.083 / 1685.000 700 / 700 Weight 154.6 kg 155.1 kg Intake: IV 2102.917 / 3105.000 1002.083 / 3105.000 1000 / 1000 Oral 530 / 1130 600 / 1130 300 / 300 Output: Urine 1700 / 2550 850 / 2550 600 / 600 Other: Urine Color Yellow Yellow Straw Urine Appearance Cloudy Sediment Clear Urine Odor Normal Comment dk yellow Stool Occult Blood Negative Stool Size Large Stool Characteristics Soft Brown Heard Voiding Methods Indwelling Catheter Laboratory Results WBC 5.10 k/cumm (4.4-10.8) 08/18/19 07:15 RBC 2.74 m/cumm (4.00-5.20) L 08/18/19 07:15 Hgb 8.1 g/dL (12.0-15.5) L 08/18/19 07:15 Hct 26.2 % (36.0-46.0) L 08/18/19 07:15 MCV 95.6 fL (80-95) H 08/18/19 07:15 MCH 29.6 pg (27.0-33.0) 08/18/19 07:15 MCHC 30.9 g/dL (32.0-36.0) L 08/18/19 07:15 RDW 16.2 % (11.7-14.6) H 08/18/19 07:15 Plt Count 201 x1000/uL (130-400) D 08/18/19 07:15 MPV 8.7 fL (8.0-11.0) 08/18/19 07:15 Immature Gran % 0.2 % 08/18/19 07:15 Neutrophils % 82.9 08/18/19 07:15 Lymphocytes % 12.4 08/18/19 07:15 Monocytes % 4.3 08/18/19 07:15 Eosinophils % 0.2 08/18/19 07:15 Basophils % 0.0 08/18/19 07:15 Absolute Neutrophils 4.23 k/cumm (1.2-6.7) 08/18/19 07:15 Absolute Lymphocytes 0.63 k/cumm (1.2-3.4) L 08/18/19 07:15 Absolute Monocytes 0.22 k/cumm (0.11-0.7) 08/18/19 07:15 Absolute Eosinophils 0.01 k/cumm (0.0-0.7) 08/18/19 07:15 Absolute Basophils 0.00 k/cumm (0.0-0.2) 08/18/19 07:15 Differential Comment Rbc morph reviewed 08/18/19 07:15 RBC Morphology See below 08/18/19 07:15 Hypochromasia 1+ 08/18/19 07:15 Anisocytosis 1+ 08/18/19 07:15 PT 11.5 sec (9.3-11.0) H 08/17/19 09:20 INR 1.1 (0.9-1.1) 08/17/19 09:20 Sodium 138 mmol/L (136-145) 08/18/19 07:15 Potassium 4.3 mmol/L (3.5-5.1) D 08/18/19 07:15 Chloride 103 mmol/L (98-107) 08/18/19 07:15 Carbon Dioxide 26.4 mmol/L (21.0-32.0) 08/18/19 07:15 Anion Gap 8.6 mmol/L (3-11) 08/18/19 07:15 BUN 14 mg/dL (7-18) 08/18/19 07:15 Creatinine 1.71 mg/dL (0.55-1.02) H 08/18/19 07:15 Estimated GFR/1.73 m2 30.45 (mL/min/1.73m2) 08/18/19 07:15 Glucose 218 mg/dL (74-106) H 08/18/19 07:15 Lactate 1.8 mmol/L (0.6-1.4) H 08/17/19 19:00 Calcium 8.7 mg/dL (8.5-10.1) 08/18/19 07:15 Magnesium 1.9 mg/dL (1.8-2.4) 08/18/19 07:15 Total Bilirubin 0.5 mg/dL (0.2-1.0) 08/17/19 09:20 AST 25 U/L (15-37) 08/17/19 09:20 ALT 13 U/L (14-59) L 08/17/19 09:20 Alkaline Phosphatase 133 U/L (46-116) H 08/17/19 09:20 Troponin I < 0.05 ng/mL (<0.06) 08/17/19 12:15 Total Protein 7.5 g/dL (6.4-8.2) 08/17/19 09:20 Albumin 2.9 g/dL (3.4-5.0) L 08/17/19 09:20 Urine Color Mora (Yellow) 08/17/19 10:18 Urine Clarity Clear (Clear) 08/17/19 10:18 Urine pH 5.5 (5-8) 08/17/19 10:18 Ur Specific [place] 1.025 (1.005-1.025) 08/17/19 10:18 Urine Protein >=300 mg/dL (Negative) H 08/17/19 10:18 Urine Ketones Negative mg/dL (Negative) 08/17/19 10:18 Urine Blood Large (Negative) H 08/17/19 10:18 Urine Nitrite Positive (Negative) H 08/17/19 10:18 Urine Bilirubin Negative (Negative) 08/17/19 10:18 Urine Urobilinogen 0.2 EU/dL (Up TO 0.2) 08/17/19 10:18 Ur Leukocyte Esterase Small (Negative) H 08/17/19 10:18 Urine RBC >50 HPF (0-2) H 08/17/19 10:18 Urine WBC >50 HPF (0-5) H 08/17/19 10:18 Ur Epithelial Cells Not Applicable 08/17/19 10:18 Urine Crystals Not Applicable 08/17/19 10:18 Urine Bacteria Many HPF (Negative) 08/17/19 10:18 Urine Mucus Not Applicable 08/17/19 10:18 Ur Culture Indicated? Yes 08/17/19 10:18 Urine Glucose Negative mg/dL (Negative) 08/17/19 10:18 COVID-19 PCR Negative (Negative) 08/17/19 11:00 Nasopharyn COVID-19 PCR Not Applicable 08/17/19 11:00 Ref Test Perform Site [facility] 08/17/19 11:00
--- NOTE | 2019-08-19 11:45 | W.INDIABCONS ---
Date of service: 08/19/19 Time of Service: 11:45 Diabetes Inpatient Consult DESCRIPTION/ASSESSMENT: 59 year old female admitted with UTI. PMH: morbid obesity, poorly controlled DM, Hx of C. Diff, stage 4 breast CA. Familiar with pt from previous admissions. Candace states that her daughter cooks and cares for her. Reports taking regular insulin at meals: 50 u @730, 30 u 1130, 30 u 1730. Reports poorly controlled BS after previous discharge, often >250mg/dl. High sugars most likely due to underlying infection. Recent A1C in June 2019 elevated. Met with Candace today, she is very frustrated with her multiple conditions. She reports eating well balanced meals but due to meds, infection, inflammation gets freq. elevated BS. She is aware of diabetes management principles but is focused on quality of life and chooses to eat some meals that are not low glycemic. She is bed/chair bound. INTERVENTION: Provided education on DM including Hyper/hypoglycemia s/s with action plan for each scenario. Definition and types of CHO with examples, CHO counting, DASH diet materials, DM meal planning and label reading literature. Provided a blood sugar and food record chart and materials to reiterate CHO counting techniques. Reviewed desirable BG levels with patient with food choices and portions for optimal outcomes. Provided contact information for this RD and encouraged him to call with any f/u questions r/t to DM self management. CDM from kitchen has been helping to count CHO's and achieve intake of ~65g/CHO per meal period. PLAN: continue current meal plan, insulin regime for optimal BS management will continue to follow Time Spent in Nutritional Counseling and Treatment: 15 min
--- NOTE | 2019-08-19 13:50 | PT.INTREAT ---
Date of service: 08/19/19 Time of Service: 13:50 PT Notes Visit Reasons: UTI,DEHYDRATION [facility]patient Physical [facility] Date: 08/19/2019 PRECAUTIONS: Fall. Standard. Activity as tolerated. SUBJECTIVE: Patient is agreeable to continuing with ambulation distance progression as scheduled. OBJECTIVE: PAIN: Baseline pain of 6?7/10 in low back area specially during weight bearing activity. BED MOBILITY/TRANSFERS Sit-stand from bedside reclining chair moderate assist x2 Stand-sit: Minimal assist of 1 Bed to chair: Minimal assist x2 GAIT Assistive Device: Front wheeled walker Weight bearing: Full weight bearing Assist: Contact-guard assist Distance: 90 feet Deviation: Wide-based gait. Step to gait pattern. Increasing julia. Minimal breathlessness seen after gait activity. ASSESSMENT: Patient demonstrates continued assistance needed for all mobility ADL performance. Patient is agreeable to slow progression of ambulation activity twice a day. She will continue to benefit from skilled physical therapy services to progress mobility level. PLAN: Patient will benefit from home health PT services in order to progress mobility level using least restrictive assistive ambulatory device, assess home safety, identify additional equipment needs, and establish a functional maintenance program that will increase ability of patient to remain at home. TREATMENT CODE/TIME: 62535 x 43 minutes beginning at 13:50 PM.
--- NOTE | 2019-08-19 15:00 | PDOC.CMPRO ---
- If Service Date Differs Date of service: 08/19/19 Time of Service: 15:00 Care Management Progress Note S/O: Candace was sitting up in her chair when CM met with her. She reported that she is working with PT, and is hoping to gain her strength back. She stated that she has been able to recover in the past, and plans to again. She stated that per provider, she would remain at [facility] for a few more days for IV abx and to work with PT. CM will continue to follow. A: Candace is a 59 year old female admitted to [facility] on 08/17/19 for UTI, Dehydration. P: Anticipate Candace will return home when medically cleared with a resumption of RN, PT through [facility]. She will follow up with her PCP and discharge plan of care. Her daughter, Kiki will drive her home via private vehicle when ready. CM will continue to follow.
[2019-08-19 15:25] VITALS: BP 146/79; PULSE 72; RESP 19; TEMP 36.5; O2SAT 94
--- NOTE | 2019-08-19 16:19 | PHA.REVIEW ---
Pharmacy Admission Review - Admission Clinical Review (Last Reviewed 08/17/19 @ 09:30 by Inocencio Alcazar MD) C. difficile colitis (Acute) Acute kidney injury superimposed on chronic kidney disease (Acute) Urinary tract infection (Acute) DVT prophylaxis (Acute) Discharge planning issues (Acute) bee venom protein (honey bee) Allergy (Unknown, Unverified 08/17/19 09:07) Latex, Natural Rubber Adverse Reaction (Intermediate, Unverified 08/17/19 09:07) adhesive tape Adverse Reaction (Mild, Unverified 08/17/19 09:07) Height 5 ft 8.9 in Weight 155.1 kg - Renal Dosing Renal Dosing: BUN 14 mg/dL (7-18) 08/18/19 07:15 Creatinine 1.71 mg/dL (0.55-1.02) H 08/18/19 07:15 Medications needing adjustments: Reviewed - Anticoagulation Anticoagulation: Hgb 8.1 g/dL (12.0-15.5) L 08/18/19 07:15 Hct 26.2 % (36.0-46.0) L 08/18/19 07:15 Plt Count 201 x1000/uL (130-400) D 08/18/19 07:15 INR 1.1 (0.9-1.1) 08/17/19 09:20 Creatinine 1.71 mg/dL (0.55-1.02) H 08/18/19 07:15 DVT Prohphylaxis: N/A Therapeutic Anticoagulation: Reviewed Medications: Apixaban - Opiate Usage Evaluate Pain Scale/Pains Meds: Reviewed Scheduled Bowel Reg ordered if on Opiates?: Yes (PRN) - Relevant Labs Sodium 138 mmol/L (136-145) 08/18/19 07:15 Potassium 4.3 mmol/L (3.5-5.1) D 08/18/19 07:15 Chloride 103 mmol/L (98-107) 08/18/19 07:15 Magnesium 1.9 mg/dL (1.8-2.4) 08/18/19 07:15 - DM Control DM Control: Glucose 218 mg/dL (74-106) H 08/18/19 07:15 Finger Stick Blood Glucose 263 Finger Stick Blood Glucose 263 Insulin Dosing: Reviewed (U500 dosed TID -- 50 U@0730, 30U@1130 and 1630 with aspart per SS) - Heart Failure/MS Heart Failure/MS: Troponin I < 0.05 ng/mL (<0.06) 08/17/19 12:15 EF%, MCKENNA's, B-Blockers, Diuretics: N/A - BP Control BP Control: Blood Pressure 146/79 Blood Pressure 131/63 If elevated: Reviewed - Current meds Current Medication Order Review: Reviewed (PT to complete home order of Dificid on 08/20; ordered in and will send up evening of 08/20 for continuation of treatment while she is on antibiotics)
[2019-08-19 19:13] LABS: C Difficile PCR Negative (Negative)
[2019-08-19 20:06] VITALS: BP 142/68; PULSE 70; RESP 18; TEMP 36.4; O2SAT 94
[2019-08-19] MEDS: DULoxetine 30 MG CAP 60 MG PO (21:19)
[2019-08-20 03:36] VITALS: BP 114/20; PULSE 71; RESP 18; TEMP 36.1; O2SAT 98
[2019-08-20] MEDS: Levothyroxine 150 MCG TAB PO (05:40)
[2019-08-20 07:05] VITALS: BP 134/74; PULSE 69; RESP 16; TEMP 35.8; O2SAT 94
[2019-08-20] MEDS: Budesonide/Formoterol 160/4.5 6 GM 60 PUFF INH IH ×2 (07:54→20:10)
[2019-08-20] MEDS: Tiotropium Bromide-Respimat 10 PUFF INH IH (07:54)
[2019-08-20] MEDS: Pregabalin 100 MG CAP 200 MG PO ×3 (08:04→20:11)
[2019-08-20] MEDS: Hydrocortisone 10 MG TAB 30 MG PO (08:04)
[2019-08-20] MEDS: Ferrous Sulfate 325 MG TAB PO (08:05)
[2019-08-20] MEDS: Oxybutynin 5 MG TAB PO ×3 (08:05→20:11)
[2019-08-20] MEDS: Montelukast 10 MG TAB PO (08:05)
[2019-08-20] MEDS: Cyanocobalamin 500 MCG TAB 1000 MCG PO (08:05)
[2019-08-20] MEDS: Loratidine 10 MG TAB PO (08:05)
[2019-08-20] MEDS: Famotidine 20 MG TAB PO (08:06)
[2019-08-20] MEDS: Folic Acid 1 MG TAB PO (08:06)
[2019-08-20] MEDS: Apixaban 5 MG TAB PO ×2 (08:06→20:11)
[2019-08-20] MEDS: cefTRIAXone 1 GM/50 ML BAG IVPB (09:55)
[2019-08-20] MEDS: Normal Saline Flush 10 ML SYR IVP ×2 (09:56→12:03)
[2019-08-20 11:20] LABS: Abs Immature Grans 0.02 k/cumm (0.0-0.09); Absolute Basophil Count 0.01 k/cumm (0.0-0.2); Absolute Eosinophil Count 0.05 k/cumm (0.0-0.7); Absolute Lymphocyte Count 0.77 k/cumm (1.2-3.4); Absolute Monocyte Count 0.34 k/cumm (0.11-0.7); Absolute Neutrophil Count 3.43 k/cumm (1.2-6.7); Basophils % 0.2; Eosinophils % 1.1; HCT 24.9 % (36.0-46.0); HGB 7.9 g/dL (12.0-15.5); Immature Grans % 0.4 %; Lymphocytes % 16.7; Mean Corp. HGB Concentration 31.7 g/dL (32.0-36.0); Mean Corpuscular Hemoglobin 29.9 pg (27.0-33.0); Mean Corpuscular Volume 94.3 fL (80-95); Mean Platelet Volume 8.6 fL (8.0-11.0); Monocytes % 7.4; Neutrophils % 74.2; Platelet Count 216 x1000/uL (130-400); RBC 2.64 m/cumm (4.00-5.20); RBC Distribution Width 15.6 % (11.7-14.6); White Blood Cell Count 4.62 k/cumm (4.4-10.8)
[2019-08-20 11:28] LABS: Anion Gap 5.8 mmol/L (3-11); BUN 18 mg/dL (7-18); CO2 30.2 mmol/L (21.0-32.0); CREATININE 1.15 mg/dL (0.55-1.02); Calcium 8.4 mg/dL (8.5-10.1); Chloride 100 mmol/L (98-107); Estimated GFR 48.13 (mL/min/1.73m2); Glucose 171 mg/dL (74-106); Magnesium 1.7 mg/dL (1.8-2.4); Potassium 3.4 mmol/L (3.5-5.1); Sodium 136 mmol/L (136-145)
[2019-08-20] MEDS: Insulin Aspart 300 UNITS/3 ML PEN SC (11:35)
[2019-08-20] MEDS: CIPROFLOXACIN 400 MG/200 ML BAG 200 MG IVPB (12:02)
--- NOTE | 2019-08-20 15:19 | PT.INTREAT ---
Date of service: 08/20/19 Time of Service: 15:19 PT Notes Visit Reasons: UTI,DEHYDRATION Inpatient Physical Therapy Treatment Note [facility] Date: 08/20/2019 PRECAUTIONS: Fall. Standard. Activity as tolerated. SUBJECTIVE: Patient reports that last night was not a good night for her. She also is febrile when PT came in according to COTY Encarnacion. She requested that session be done tomorrow instead as she wants to rest. OBJECTIVE: PAIN: Baseline pain of 6?7/10 in low back area specially during weight bearing activity. BED MOBILITY/TRANSFERS Sit>supine minimal assist to B LE Straightening self up in bed: set up with use of overhead trapeze ASSESSMENT: Assistance with bed mobility was provided for patient with additional help from COTY Encarnacion. Patient refused any out of bed activities today stating that she does not feel up to it. Further session is withheld in light of new onset fever. PLAN: Patient will benefit from home health PT services in order to progress mobility level using least restrictive assistive ambulatory device, assess home safety, identify additional equipment needs, and establish a functional maintenance program that will increase ability of patient to remain at home. TREATMENT CODE/TIME: 24227 x 15 minutes beginning at 15:19 PM.
--- NOTE | 2019-08-20 15:28 | CHAPLAIN ---
Candace was sitting up in her chair when I visited. She shared some information and stories about her role in the [place] in the [facility]. 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 Candace said she will likely be be here a few more days to get more antibiotics and work with PT. She knows that she's now allowed one support person to visit and she said her daughter Kiki, who provides here care at home is likely to visit this weekend.
--- NOTE | 2019-08-20 16:03 | PGE_ITS ---
Date of Service Date of service: 08/20/19 Time of Service: 16:03 Assessment and Plan Assessment and plan (1) Urinary tract infection: Status: Acute Assessment and plan: recurrent fever this afternoon, still awaiting culture reports, growing gram negative rods > 100k, white count normal. Will continue ceftriaxone day 4 cipro day 3. blood cultures have been negative to date, repeat urine today as it's possible she has a MDRO. no other source of infection identified. will order I/S and recommend pulmonary toileting. Qualifiers: Hematuria presence: without hematuria Urinary tract infection type: site unspecified Qualified Code(s): N39.0 - Urinary tract infection, site not specified (2) C. difficile colitis: Status: Acute Assessment and plan: stable at this time, continue dificid while on antibiotics (3) Acute kidney injury superimposed on chronic kidney disease: Status: Acute Assessment and plan: likely prerenal, resolved with IV fluids, monitor kidney function, I&O, renal dose medication, (4) History of pulmonary embolism: Status: Chronic Assessment and plan: respiratory status stable, continue anticoagulation (5) Adrenal insufficiency: Status: Chronic Assessment and plan: received stress dose steroids stable on usual home dosing now. (6) Diabetes mellitus: Status: Chronic Assessment and plan: blood sugars elevated d/t increased steroid dosing, continue diabetic diet and current insulin regimen. will check blood sugar ac/hs and provide sliding scale coverage as needed. 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 plan is to discharge to home with resumption of services. case and plan of care discussed with Dr Bahena who is in agreement Subjective Subjective Patient reports: tolerating liquids well, tolerating a regular diet and fever Interval history since last seen: patient with non specific c/o fatigue and malaise, no shortness of breath or cough, no abdominal pain or nausea, no new rashes or lesions. no obvious source of infection other than UTI. Exam Narrative Exam Narrative: Const General: cooperative and no acute distress Nutritional Appearance: obese Orientation: alert, awake and oriented x3 HENMT Head: normal to inspection, normocephalic and atraumatic Mouth: oral mucosae normal Teeth and gingiva: edentulous Resp Effort & Inspection: normal respiratory effort Auscultation: clear to auscultation bilaterally and diminished lung sounds bilaterally Cardio Rate: regular rate Rhythm: regular rhythm GI Inspection: large pannus and obesity Palpation: soft Auscultation: normal bowel sounds Skin Lesions: lesion noted Neuro General: patient alert, patient awake and patient oriented x3 Cranial Nerves: CN's II-XI intact bilaterally Cognition: normal cognition Speech: speech normal Motor: muscle tone normal throughout Extrem General: full ROM and edema (trace, reports no increased edema, chronic discoloration to BLE) Laterality: bilateral Psych Mental Status: mental status grossly normal Speech and Movement: speech and movement normal Mood: congruent mood Affect: normal affect Objective Objective Clinical Data: Abnormal lab results 08/20/19 08/20/19 Range/Units 11:10 11:10 RBC 2.64 L (4.00-5.20) m/cumm Hgb 7.9 L (12.0-15.5) g/dL Hct 24.9 L (36.0-46.0) % MCHC 31.7 L (32.0-36.0) g/dL RDW 15.6 H (11.7-14.6) % Absolute Lymphocytes 0.77 L (1.2-3.4) k/cumm Potassium 3.4 L (3.5-5.1) mmol/L Creatinine 1.15 H D (0.55-1.02) mg/dL Glucose 171 H (74-106) mg/dL Calcium 8.4 L (8.5-10.1) mg/dL Magnesium 1.7 L (1.8-2.4) mg/dL Vital Signs Temperature 35.8 C L 08/20/19 07:05 Temperature Source Tympanic 08/20/19 07:05 Pulse 69 08/20/19 07:05 Pulse Rhythm Regular 08/20/19 09:28 Respiratory Rate 16 08/20/19 07:05 Respiratory Effort Non-Labored 08/20/19 09:28 Respiratory Depth Normal 08/20/19 09:28 Respiratory Pattern Normal 08/20/19 09:28 Blood Pressure 134/74 08/20/19 07:05 Blood Pressure Position Sitting 08/17/19 08:59 Pulse Oximetry 94 L 08/20/19 07:05 Oxygen Delivery Method Room Air 08/20/19 07:05 Oxygen Flow Rate 0 08/20/19 07:05 Pain Level 0 08/20/19 07:05 Comment 08/18/19 00:26 Intake & Output 08/19/19 08/20/19 08/20/19 23:59 11:59 23:59 Intake Total 610 / 3102.083 210 / 210 Output Total 500 / 1100 1000 / 1800 800 / 1800 Balance 110 / 2002.083 -790 / -1590 -800 / -1590 Weight 153.7 kg Intake: IV 260 / 2212.083 210 / 210 Oral 350 / 890 Output: Urine 500 / 1100 1000 / 1800 800 / 1800 Other: Urine Color Yellow Pale Straw Yellow Light Giselle Urine Appearance Clear Sediment Clear Stool Size Copious Stool Characteristics Soft Formed Laboratory Results WBC 4.62 k/cumm (4.4-10.8) 08/20/19 11:10 RBC 2.64 m/cumm (4.00-5.20) L 08/20/19 11:10 Hgb 7.9 g/dL (12.0-15.5) L 08/20/19 11:10 Hct 24.9 % (36.0-46.0) L 08/20/19 11:10 MCV 94.3 fL (80-95) 08/20/19 11:10 MCH 29.9 pg (27.0-33.0) 08/20/19 11:10 MCHC 31.7 g/dL (32.0-36.0) L 08/20/19 11:10 RDW 15.6 % (11.7-14.6) H 08/20/19 11:10 Plt Count 216 x1000/uL (130-400) 08/20/19 11:10 MPV 8.6 fL (8.0-11.0) 08/20/19 11:10 Immature Gran % 0.4 % 08/20/19 11:10 Neutrophils % 74.2 08/20/19 11:10 Lymphocytes % 16.7 08/20/19 11:10 Monocytes % 7.4 08/20/19 11:10 Eosinophils % 1.1 08/20/19 11:10 Basophils % 0.2 08/20/19 11:10 Absolute Neutrophils 3.43 k/cumm (1.2-6.7) 08/20/19 11:10 Absolute Lymphocytes 0.77 k/cumm (1.2-3.4) L 08/20/19 11:10 Absolute Monocytes 0.34 k/cumm (0.11-0.7) 08/20/19 11:10 Absolute Eosinophils 0.05 k/cumm (0.0-0.7) 08/20/19 11:10 Absolute Basophils 0.01 k/cumm (0.0-0.2) 08/20/19 11:10 Differential Comment Rbc morph reviewed 08/18/19 07:15 RBC Morphology See below 08/18/19 07:15 Hypochromasia 1+ 08/18/19 07:15 Anisocytosis 1+ 08/18/19 07:15 PT 11.5 sec (9.3-11.0) H 08/17/19 09:20 INR 1.1 (0.9-1.1) 08/17/19 09:20 Sodium 136 mmol/L (136-145) 08/20/19 11:10 Potassium 3.4 mmol/L (3.5-5.1) L 08/20/19 11:10 Chloride 100 mmol/L (98-107) 08/20/19 11:10 Carbon Dioxide 30.2 mmol/L (21.0-32.0) 08/20/19 11:10 Anion Gap 5.8 mmol/L (3-11) 08/20/19 11:10 BUN 18 mg/dL (7-18) 08/20/19 11:10 Creatinine 1.15 mg/dL (0.55-1.02) H D 08/20/19 11:10 Estimated GFR/1.73 m2 48.13 (mL/min/1.73m2) 08/20/19 11:10 Glucose 171 mg/dL (74-106) H 08/20/19 11:10 Lactate 1.8 mmol/L (0.6-1.4) H 08/17/19 19:00 Calcium 8.4 mg/dL (8.5-10.1) L 08/20/19 11:10 Magnesium 1.7 mg/dL (1.8-2.4) L 08/20/19 11:10 Total Bilirubin 0.5 mg/dL (0.2-1.0) 08/17/19 09:20 AST 25 U/L (15-37) 08/17/19 09:20 ALT 13 U/L (14-59) L 08/17/19 09:20 Alkaline Phosphatase 133 U/L (46-116) H 08/17/19 09:20 Troponin I < 0.05 ng/mL (<0.06) 08/17/19 12:15 Total Protein 7.5 g/dL (6.4-8.2) 08/17/19 09:20 Albumin 2.9 g/dL (3.4-5.0) L 08/17/19 09:20 Urine Color [place] (Yellow) 08/17/19 10:18 Urine Clarity Clear (Clear) 08/17/19 10:18 Urine pH 5.5 (5-8) 08/17/19 10:18 Ur Specific [place] 1.025 (1.005-1.025) 08/17/19 10:18 Urine Protein >=300 mg/dL (Negative) H 08/17/19 10:18 Urine Ketones Negative mg/dL (Negative) 08/17/19 10:18 Urine Blood Large (Negative) H 08/17/19 10:18 Urine Nitrite Positive (Negative) H 08/17/19 10:18 Urine Bilirubin Negative (Negative) 08/17/19 10:18 Urine Urobilinogen 0.2 EU/dL (Up TO 0.2) 08/17/19 10:18 Ur Leukocyte Esterase Small (Negative) H 08/17/19 10:18 Urine RBC >50 HPF (0-2) H 08/17/19 10:18 Urine WBC >50 HPF (0-5) H 08/17/19 10:18 Ur Epithelial Cells Not Applicable 08/17/19 10:18 Urine Crystals Not Applicable 08/17/19 10:18 Urine Bacteria Many HPF (Negative) 08/17/19 10:18 Urine Mucus Not Applicable 08/17/19 10:18 Ur Culture Indicated? Yes 08/17/19 10:18 Urine Glucose Negative mg/dL (Negative) 08/17/19 10:18 Stl C.difficile Tox PCR Negative (Negative) 08/19/19 09:40 COVID-19 PCR Negative (Negative) 08/17/19 11:00 Nasopharyn COVID-19 PCR Not Applicable 08/17/19 11:00 Ref Test Perform Site [facility] 08/17/19 11:00
[2019-08-20 16:11] VITALS: TEMP 38.9
[2019-08-20] MEDS: Acetaminophen 325 MG TAB 650 MG PO (16:11)
[2019-08-20] MEDS: MAGNESIUM SULFATE 1 GM/100 ML BAG IVPB (16:25)
[2019-08-20 16:28] LABS: Bilirubin Negative (Negative); Blood Moderate (Negative); Clarity Clear (Clear); Glucose Negative (Negative); Ketones Negative (Negative); Leukocyte Esterase Trace (Negative); Nitrite Negative (Negative); Specific Gravity 1.015 (1.005-1.025); Urobilinogen 0.2 EU/dL (Up TO 0.2); pH 5.5 (5-8)
[2019-08-20 16:43] LABS: Bacteria Moderate HPF (Negative); C & S Indicated? Yes; Casts Negative LPF (Negative); Crystals Few Uric Acid HPF (Negative); Epithelial Cells Few HPF (Negative); Mucus Negative (Negative); Other Cells Few Transitional (Negative); RBC >50 HPF (0-2); WBC 20-50 HPF (0-5)
[2019-08-20 16:55] VITALS: BP 118/76; PULSE 69; RESP 20; TEMP 38; O2SAT 93
[2019-08-20] MEDS: Potassium Chloride 20 MEQ TABCR PO ×2 (16:55→20:11)
[2019-08-20 17:35] VITALS: TEMP 36.5
--- NOTE | 2019-08-20 17:41 | CMPROGNOTE_ITS ---
- If Service Date Differs Date of service: 08/20/19 Time of Service: 17:41 Care Management Progress Note S/O: Candace was sitting up in her chair when CM met with her. She stated that she was feeling good today. She stated that per provider, she will need a couple more days of abx here prior to returning home. She is pleasant and engaged in conversation. All needs are met. CM will continue to follow. A: Candace is a 59 year old female admitted to [facility] on 08/17/19 for UTI, Dehydration. P: Anticipate Candace will return home when medically cleared with a resumption of RN, PT through [place]. She will follow up with her PCP and discharge plan of care. Her daughter, Kiki will drive her home via private vehicle when ready. CM will continue to follow.
[2019-08-20] MEDS: IMIPENEM/CILASTATIN 500 MG in Normal Saline 100 ML 200 MG IVPB (18:03)
[2019-08-20] MEDS: DULoxetine 30 MG CAP 60 MG PO (21:35)
[2019-08-20 23:10] VITALS: BP 141/75; PULSE 74; RESP 18; TEMP 36.6; O2SAT 97
[2019-08-21] MEDS: IMIPENEM/CILASTATIN 500 MG in Normal Saline 100 ML 200 MG IVPB ×4 (00:36→18:17)
[2019-08-21] MEDS: Normal Saline Flush 10 ML SYR IVP ×3 (00:37→18:18)
[2019-08-21] MEDS: Levothyroxine 150 MCG TAB PO (05:21)
[2019-08-21 07:15] VITALS: BP 133/73; PULSE 75; RESP 18; TEMP 36.3; O2SAT 91
[2019-08-21 07:18] LABS: Abs Immature Grans 0.02 k/cumm (0.0-0.09); Absolute Basophil Count 0.01 k/cumm (0.0-0.2); Absolute Lymphocyte Count 1.12 k/cumm (1.2-3.4); Absolute Monocyte Count 0.31 k/cumm (0.11-0.7); Absolute Neutrophil Count 1.71 k/cumm (1.2-6.7); Basophils % 0.3; Eosinophils % 3.1; HGB 7.8 g/dL (12.0-15.5); Immature Grans % 0.6 %; Lymphocytes % 34.3; Mean Corp. HGB Concentration 31.2 g/dL (32.0-36.0); Mean Corpuscular Hemoglobin 29.5 pg (27.0-33.0); Mean Corpuscular Volume 94.7 fL (80-95); Mean Platelet Volume 8.9 fL (8.0-11.0); Monocytes % 9.5; Neutrophils % 52.2; Platelet Count 217 x1000/uL (130-400); RBC 2.64 m/cumm (4.00-5.20); RBC Distribution Width 15.6 % (11.7-14.6); White Blood Cell Count 3.27 k/cumm (4.4-10.8)
[2019-08-21 07:32] LABS: Anion Gap 6.8 mmol/L (3-11); BUN 17 mg/dL (7-18); CO2 30.2 mmol/L (21.0-32.0); CREATININE 1.17 mg/dL (0.55-1.02); Calcium 8.3 mg/dL (8.5-10.1); Chloride 102 mmol/L (98-107); Estimated GFR 47.18 (mL/min/1.73m2); Glucose 139 mg/dL (74-106); Magnesium 1.9 mg/dL (1.8-2.4); Potassium 3.7 mmol/L (3.5-5.1); Sodium 139 mmol/L (136-145)
[2019-08-21] MEDS: fentaNYL 50 MCG PATCH TD (08:12)
[2019-08-21] MEDS: HYDROcodone 5/Acetaminophen 325 TAB PO (08:14)
[2019-08-21] MEDS: Pregabalin 100 MG CAP 200 MG PO ×3 (08:14→20:01)
[2019-08-21] MEDS: Hydrocortisone 10 MG TAB 30 MG PO (08:14)
[2019-08-21] MEDS: Cyanocobalamin 500 MCG TAB 1000 MCG PO (08:14)
[2019-08-21] MEDS: Folic Acid 1 MG TAB PO (08:14)
[2019-08-21] MEDS: Famotidine 20 MG TAB PO (08:15)
[2019-08-21] MEDS: Oxybutynin 5 MG TAB PO ×3 (08:15→20:02)
[2019-08-21] MEDS: Loratidine 10 MG TAB PO (08:15)
[2019-08-21] MEDS: Apixaban 5 MG TAB PO ×2 (08:15→20:02)
[2019-08-21] MEDS: Montelukast 10 MG TAB PO (08:15)
[2019-08-21] MEDS: Ferrous Sulfate 325 MG TAB PO (08:15)
[2019-08-21] MEDS: Insulin Aspart 300 UNITS/3 ML PEN SC ×2 (08:15→12:12)
--- NOTE | 2019-08-21 09:30 | PT.INTREAT ---
Date of service: 08/21/19 Time of Service: 09:30 PT Notes Visit Reasons: UTI,DEHYDRATION Inpatient Physical Therapy Treatment Note [facility] Date: 08/21/2019 PRECAUTIONS: Fall. Standard. Activity as tolerated. SUBJECTIVE: Patient feels very much invigorated with the bath that [employer]CE[employer]HER [employer] Joycelyn helped her with. She states that her fever broke last night and that she feels a lot better today. OBJECTIVE: PAIN: Baseline pain of 6?7/10 in low back area specially during weight bearing activity. BED MOBILITY/TRANSFERS Sit-stand from bedside reclining chair CGA with a new high recliner chair Stand-sit: SBA Bed to chair: CGA GAIT Assistive Device: Front wheeled walker Weight bearing: Full weight bearing Assist: Contact-guard assist Distance: 150 feet Deviation: Wide-based gait. Step to gait pattern. Increasing dianne. Minimal breathlessness seen after gait activity. THERA EX: Tolerated ankle DF/PF x 20, quadriceps sets x 10, and gluteal sets x 10 without any undue difficulty. ASSESSMENT: Patient demonstrates increased tolerance for longer distance during ambulation activity. Dianne has improved and with only minimal breathlessness reported that subsided with rest. Patient is agreeable to slow progression of ambulation activity twice a day. She will continue to benefit from skilled physical therapy services to progress mobility level. PLAN: Patient will benefit from home health PT services in order to progress mobility level using least restrictive assistive ambulatory device, assess home safety, identify additional equipment needs, and establish a functional maintenance program that will increase ability of patient to remain at home. TREATMENT CODE/TIME: 53773 x 15 minutes, 86545 x 10 minutes beginning at 9:30 AM.
[2019-08-21] MEDS: Budesonide/Formoterol 160/4.5 6 GM 60 PUFF INH IH ×2 (09:54→20:01)
[2019-08-21] MEDS: Tiotropium Bromide-Respimat 10 PUFF INH IH (09:54)
--- NOTE | 2019-08-21 10:38 | PDOC.CMPRO ---
- If Service Date Differs Date of service: 08/21/19 Time of Service: 10:38 Care Management Progress Note S/O: A review of Candace's medical chart reveals she is feeling better today and is currently afebrile. She worked with physical therapy this morning and showed improvement in her julia and ability to walk longer distances. PT recommends she continue with home health PT services at home to assist in progressing mobility level and to identify additional equipment needs. CM will continue to follow. A: Candace is a 59 year old female admitted to [facility] on 08/17/19 for UTI and dehydration. P: No change in plan. Anticipate Candace will return home when medically cleared with a resumption of RN, PT through [place]. She will follow up with her PCP and discharge plan of care as directed. Her daughter, Kiki, will drive her home via private vehicle when ready. CM will continue to follow.
--- NOTE | 2019-08-21 14:04 | PGE_ITS ---
Date of Service Date of service: 08/21/19 Time of Service: 14:04 Assessment and Plan Assessment and plan (1) Urinary tract infection: Status: Acute Assessment and plan: after having fevers day 4 (yesterday) on ceftriaxone day 4 cipro day 3 and growing gram negative rods > 100k, white count normal. repeat urine still shows pyuria so concern was for possible MDRO as no other source of infection identified. she was switched to imipenem now day 2. urine grew citrobacter freundii which is sensitive to imipenem. will change out alex catheter this afternoon. Qualifiers: Hematuria presence: without hematuria Urinary tract infection type: site unspecified Qualified Code(s): N39.0 - Urinary tract infection, site not specified (2) C. difficile colitis: Status: Acute Assessment and plan: stable at this time, continue dificid while on antibiotics. PCR negative (3) Acute kidney injury superimposed on chronic kidney disease: Status: Acute Assessment and plan: likely prerenal, resolved with IV fluids, monitor k idney function, I&O, renal dose medication, (4) History of pulmonary embolism: Status: Chronic Assessment and plan: respiratory status stable, continue anticoagulation (5) Adrenal insufficiency: Status: Chronic Assessment and plan: received stress dose steroids stable on usual home dosing now. (6) Diabetes mellitus: Status: Chronic Assessment and plan: blood sugars better controlled now that stress dose steroids done, continue diabetic diet and current insulin regimen. will check blood sugar ac/hs and provide sliding scale coverage as needed. hemoglobin A1C 8.06 June 2019 Qualifiers: Chronic kidney disease stage: stage 3 (moderate) Diabetes mellitus complication detail: with chronic kidney disease Diabetes mellitus complication status: with kidney complications Diabetes mellitus group home insulin use: with group home use Diabetes mellitus type: type 2 Qualified Code(s): E11.22 - Type 2 diabetes mellitus with diabetic chronic kidney disease; N18.3 - Chronic kidney disease, stage 3 (moderate); Z79.4 - intermediate (current) use of insulin (7) COPD (chronic obstructive pulmonary disease): Status: Chronic Assessment and plan: stable, continue home medication (8) Physical deconditioning: Status: Chronic Assessment and plan: PT consult (9) DVT prophylaxis: Status: Acute Assessment and plan: fully anticoagulated (10) Discharge planning issues: Status: Acute Assessment and plan: case management will be following. plan is to discharge to home with resumption of services. case and plan of care discussed with Dr Reno who is in agreement Subjective Subjective Patient reports: no new complaints, tolerating liquids well, tolerating a regular diet and afebrile Interval history since last seen: patient with no new c/o today. no fevers overnight, no diarrhea, eating and drinking well. Exam Narrative Exam Narrative: Const General: cooperative and no acute distress Nutritional Appearance: obese Orientation: alert, awake and oriented x3 HENMT Head: normal to inspection, normocephalic and atraumatic Mouth: oral mucosae normal Teeth and gingiva: edentulous Resp Effort & Inspection: normal respiratory effort Auscultation: clear to auscultation bilaterally and diminished lung sounds bilaterally Cardio Rate: regular rate Rhythm: regular rhythm GI Inspection: large pannus and obesity Palpation: soft Auscultation: normal bowel sounds Skin Lesions: lesion noted Neuro General: patient alert, patient awake and patient oriented x3 Cranial Nerves: CN's II-XI intact bilaterally Cognition: normal cognition Speech: speech normal Motor: muscle tone normal throughout Extrem General: full ROM and edema (trace, reports no increased edema, chronic discoloration to BLE) Laterality: bilateral Psych Mental Status: mental status grossly normal Speech and Movement: speech and movement normal Mood: congruent mood Affect: normal affect Objective Objective Clinical Data: Abnormal lab results 08/20/19 08/21/19 08/21/19 Range/Units 16:10 06:30 06:30 WBC 3.27 L (4.4-10.8) k/cumm RBC 2.64 L (4.00-5.20) m/cumm Hgb 7.8 L (12.0-15.5) g/dL Hct 25.0 L (36.0-46.0) % MCHC 31.2 L (32.0-36.0) g/dL RDW 15.6 H (11.7-14.6) % Absolute Lymphocytes 1.12 L (1.2-3.4) k/cumm Creatinine 1.17 H (0.55-1.02) mg/dL Glucose 139 H (74-106) mg/dL Calcium 8.3 L (8.5-10.1) mg/dL Urine Protein 100 H (Negative) mg/dL Urine Blood Moderate H (Negative) Ur Leukocyte Esterase Trace H (Negative) Urine RBC >50 H (0-2) HPF Urine WBC 20-50 H (0-5) HPF Vital Signs Temperature 36.3 C L 08/21/19 07:15 Temperature Source Tympanic 08/21/19 07:15 Pulse 75 08/21/19 07:15 Pulse Rhythm Regular 08/21/19 05:24 Respiratory Rate 18 08/21/19 07:15 Respiratory Effort Non-Labored 08/21/19 05:24 Respiratory Depth Normal 08/21/19 05:24 Respiratory Pattern Normal 08/21/19 05:24 Blood Pressure 133/73 08/21/19 07:15 Blood Pressure Position Sitting 08/17/19 08:59 Pulse Oximetry 91 L 08/21/19 07:15 Oxygen Delivery Method Room Air 08/21/19 07:15 Oxygen Flow Rate 0 08/21/19 07:15 Pain Level 5 08/21/19 08:14 Comment 08/20/19 23:10 Intake & Output 08/20/19 08/21/19 08/21/19 23:59 11:59 23:59 Intake Total 400 / 610 760 / 760 Output Total 1925 / 2925 1500 / 1500 Balance -1525 / -2315 -740 / -740 Weight 154.2 kg Intake: IV 200 / 410 200 / 200 Oral 200 / 200 560 / 560 Output: Urine 1925 / 2925 1500 / 1500 Other: Urine Color Pale Pale Urine Appearance Clear Clear Stool Size Moderate Stool Characteristics Soft Brown Laboratory Results WBC 3.27 k/cumm (4.4-10.8) L 08/21/19 06:30 RBC 2.64 m/cumm (4.00-5.20) L 08/21/19 06:30 Hgb 7.8 g/dL (12.0-15.5) L 08/21/19 06:30 Hct 25.0 % (36.0-46.0) L 08/21/19 06:30 MCV 94.7 fL (80-95) 08/21/19 06:30 MCH 29.5 pg (27.0-33.0) 08/21/19 06:30 MCHC 31.2 g/dL (32.0-36.0) L 08/21/19 06:30 RDW 15.6 % (11.7-14.6) H 08/21/19 06:30 Plt Count 217 x1000/uL (130-400) 08/21/19 06:30 MPV 8.9 fL (8.0-11.0) 08/21/19 06:30 Immature Gran % 0.6 % 08/21/19 06:30 Neutrophils % 52.2 08/21/19 06:30 Lymphocytes % 34.3 08/21/19 06:30 Monocytes % 9.5 08/21/19 06:30 Eosinophils % 3.1 08/21/19 06:30 Basophils % 0.3 08/21/19 06:30 Absolute Neutrophils 1.71 k/cumm (1.2-6.7) 08/21/19 06:30 Absolute Lymphocytes 1.12 k/cumm (1.2-3.4) L 08/21/19 06:30 Absolute Monocytes 0.31 k/cumm (0.11-0.7) 08/21/19 06:30 Absolute Eosinophils 0.10 k/cumm (0.0-0.7) 08/21/19 06:30 Absolute Basophils 0.01 k/cumm (0.0-0.2) 08/21/19 06:30 Differential Comment Rbc morph reviewed 08/18/19 07:15 RBC Morphology See below 08/18/19 07:15 Hypochromasia 1+ 08/18/19 07:15 Anisocytosis 1+ 08/18/19 07:15 PT 11.5 sec (9.3-11.0) H 08/17/19 09:20 INR 1.1 (0.9-1.1) 08/17/19 09:20 Sodium 139 mmol/L (136-145) 08/21/19 06:30 Potassium 3.7 mmol/L (3.5-5.1) 08/21/19 06:30 Chloride 102 mmol/L (98-107) 08/21/19 06:30 Carbon Dioxide 30.2 mmol/L (21.0-32.0) 08/21/19 06:30 Anion Gap 6.8 mmol/L (3-11) 08/21/19 06:30 BUN 17 mg/dL (7-18) 08/21/19 06:30 Creatinine 1.17 mg/dL (0.55-1.02) H 08/21/19 06:30 Estimated GFR/1.73 m2 47.18 (mL/min/1.73m2) 08/21/19 06:30 Glucose 139 mg/dL (74-106) H 08/21/19 06:30 Lactate 1.8 mmol/L (0.6-1.4) H 08/17/19 19:00 Calcium 8.3 mg/dL (8.5-10.1) L 08/21/19 06:30 Magnesium 1.9 mg/dL (1.8-2.4) 08/21/19 06:30 Total Bilirubin 0.5 mg/dL (0.2-1.0) 08/17/19 09:20 AST 25 U/L (15-37) 08/17/19 09:20 ALT 13 U/L (14-59) L 08/17/19 09:20 Alkaline Phosphatase 133 U/L (46-116) H 08/17/19 09:20 Troponin I < 0.05 ng/mL (<0.06) 08/17/19 12:15 Total Protein 7.5 g/dL (6.4-8.2) 08/17/19 09:20 Albumin 2.9 g/dL (3.4-5.0) L 08/17/19 09:20 Urine Color Yellow (Yellow) 08/20/19 16:10 Urine Clarity Clear (Clear) 08/20/19 16:10 Urine pH 5.5 (5-8) 08/20/19 16:10 Ur Specific [place] 1.015 (1.005-1.025) 08/20/19 16:10 Urine Protein 100 mg/dL (Negative) H 08/20/19 16:10 Urine Ketones Negative mg/dL (Negative) 08/20/19 16:10 Urine Blood Moderate (Negative) H 08/20/19 16:10 Urine Nitrite Negative (Negative) 08/20/19 16:10 Urine Bilirubin Negative (Negative) 08/20/19 16:10 Urine Urobilinogen 0.2 EU/dL (Up TO 0.2) 08/20/19 16:10 Ur Leukocyte Esterase Trace (Negative) H 08/20/19 16:10 Urine RBC >50 HPF (0-2) H 08/20/19 16:10 Urine WBC 20-50 HPF (0-5) H 08/20/19 16:10 Ur Epithelial Cells Few HPF (Negative) 08/20/19 16:10 Urine Crystals Few uric acid HPF (Negative) 08/20/19 16:10 Urine Bacteria Moderate HPF (Negative) 08/20/19 16:10 Urine Casts Negative LPF (Negative) 08/20/19 16:10 Urine Mucus Negative (Negative) 08/20/19 16:10 Urine Other Few transitional (Negative) 08/20/19 16:10 Ur Culture Indicated? Yes 08/20/19 16:10 Urine Glucose Negative mg/dL (Negative) 08/20/19 16:10 Stl C.difficile Tox PCR Negative (Negative) 08/19/19 09:40 COVID-19 PCR Negative (Negative) 08/17/19 11:00 Nasopharyn COVID-19 PCR Not Applicable 08/17/19 11:00 Ref Test Perform [facility] 08/17/19 11:00
[2019-08-21 15:20] VITALS: BP 142/73; PULSE 64; RESP 19; TEMP 37.5; O2SAT 96
[2019-08-21 19:10] VITALS: BP 149/76; PULSE 72; RESP 17; TEMP 36.3; O2SAT 97
[2019-08-21] MEDS: Fidaxomicin 200 MG TAB PO (20:02)
[2019-08-21] MEDS: DULoxetine 30 MG CAP 60 MG PO (22:25)
[2019-08-21 23:56] VITALS: BP 141/74; PULSE 68; RESP 17; TEMP 36; O2SAT 97
[2019-08-22] MEDS: Normal Saline Flush 10 ML SYR IVP ×3 (01:01→23:50)
[2019-08-22] MEDS: IMIPENEM/CILASTATIN 500 MG in Normal Saline 100 ML 200 MG IVPB ×5 (01:02→23:50)
[2019-08-22] MEDS: Normal Saline 500 ML IV (01:04)
[2019-08-22] MEDS: HYDROcodone 5/Acetaminophen 325 TAB PO ×2 (01:35→19:47)
[2019-08-22 04:15] VITALS: BP 130/77; PULSE 64; RESP 16; TEMP 36.1; O2SAT 97
[2019-08-22] MEDS: fentaNYL 50 MCG PATCH TD (06:42)
[2019-08-22] MEDS: Levothyroxine 150 MCG TAB PO (06:43)
[2019-08-22 07:15] VITALS: BP 146/81; PULSE 60; RESP 18; TEMP 36.7; O2SAT 94
[2019-08-22] MEDS: Fidaxomicin 200 MG TAB PO ×2 (08:03→19:43)
[2019-08-22] MEDS: Pregabalin 100 MG CAP 200 MG PO ×3 (08:03→19:43)
[2019-08-22] MEDS: Folic Acid 1 MG TAB PO (08:03)
[2019-08-22] MEDS: Apixaban 5 MG TAB PO ×2 (08:04→19:43)
[2019-08-22] MEDS: Cyanocobalamin 500 MCG TAB 1000 MCG PO (08:04)
[2019-08-22] MEDS: Famotidine 20 MG TAB PO (08:04)
[2019-08-22] MEDS: Ferrous Sulfate 325 MG TAB PO ×2 (08:04→19:43)
[2019-08-22] MEDS: Hydrocortisone 10 MG TAB 30 MG PO (08:04)
[2019-08-22] MEDS: Montelukast 10 MG TAB PO (08:04)
[2019-08-22] MEDS: Oxybutynin 5 MG TAB PO ×3 (08:04→19:43)
[2019-08-22] MEDS: Loratidine 10 MG TAB PO (08:04)
[2019-08-22] MEDS: Tiotropium Bromide-Respimat 10 PUFF INH IH (08:07)
[2019-08-22] MEDS: Budesonide/Formoterol 160/4.5 6 GM 60 PUFF INH IH ×2 (08:07→19:42)
--- NOTE | 2019-08-22 08:58 | W.PM.PROGNOT ---
Date of Service Date of service: 08/22/19 Time of Service: 08:58 Assessment and Plan Assessment and plan (1) Urinary tract infection: Status: Acute Assessment and plan: afebrile on imipenem now day 3. urine grew citrobacter freundii which is sensitive to imipenem. alex discontinued Qualifiers: Hematuria presence: without hematuria Urinary tract infection type: site unspecified Qualified Code(s): N39.0 - Urinary tract infection, site not specified (2) C. difficile colitis: Status: Acute Assessment and plan: stable at this time, continue dificid while on antibiotics. PCR negative (3) Acute kidney injury superimposed on chronic kidney disease: Status: Acute Assessment and plan: likely prerenal, resolved with IV fluids, monitor kidney function, I&O, renal dose medication, (4) History of pulmonary embolism: Status: Chronic Assessment and plan: respiratory status stable, continue anticoagulation (5) Adrenal insufficiency: Status: Chronic Assessment and plan: received stress dose steroids stable on usual home dosing now. (6) Diabetes mellitus: Status: Chronic Assessment and plan: blood sugars better controlled now that stress dose steroids done, continue diabetic diet and current insulin regimen. will check blood sugar ac/hs and provide sliding scale coverage as needed. hemoglobin A1C 8.06 June 2019 Qualifiers: Chronic kidney disease stage: stage 3 (moderate) Diabetes mellitus complication detail: with chronic kidney disease Diabetes mellitus complication status: with kidney complications Diabetes mellitus prison insulin use: with prison use Diabetes mellitus type: type 2 Qualified Code(s): E11.22 - Type 2 diabetes mellitus with diabetic chronic kidney disease; N18.3 - Chronic kidney disease, stage 3 (moderate); Z79.4 - FDC (current) use of insulin (7) COPD (chronic obstructive pulmonary disease): Status: Chronic Assessment and plan: stable, continue home medication (8) Physical deconditioning: Status: Chronic Assessment and plan: PT consult (9) DVT prophylaxis: Status: Acute Assessment and plan: fully anticoagulated (10) Discharge planning issues: Status: Acute Assessment and plan: case management will be following. plan is to discharge to home with resumption of services. case and plan of care discussed with Dr Reno who is in agreement Subjective Subjective Patient reports: no new complaints Interval history since last seen: patient with no new c/o today. no fevers overnight, no diarrhea, eating and drinking well. Exam Narrative Exam Narrative: Const General: cooperative and no acute distress Nutritional Appearance: obese Orientation: alert, awake and oriented x3 HENMT Head: normal to inspection, normocephalic and atraumatic Mouth: oral mucosae normal Teeth and gingiva: edentulous Resp Effort & Inspection: normal respiratory effort Auscultation: clear to auscultation bilaterally and diminished lung sounds bilaterally Cardio Rate: regular rate Rhythm: regular rhythm GI Inspection: large pannus and obesity Palpation: soft Auscultation: normal bowel sounds Skin Lesions: lesion noted Neuro General: patient alert, patient awake and patient oriented x3 Cranial Nerves: CN's II-XI intact bilaterally Cognition: normal cognition Speech: speech normal Motor: muscle tone normal throughout Extrem General: full ROM and edema (trace, reports no increased edema, chronic discoloration to BLE) Laterality: bilateral Psych Mental Status: mental status grossly normal Speech and Movement: speech and movement normal Mood: congruent mood Affect: normal affect Objective Objective Clinical Data: Vital Signs Temperature 36.7 C 08/22/19 07:15 Temperature Source Tympanic 08/22/19 07:15 Pulse 60 08/22/19 07:15 Pulse Rhythm Regular 08/22/19 01:05 Respiratory Rate 18 08/22/19 07:15 Respiratory Effort Non-Labored 08/22/19 01:05 Respiratory Depth Normal 08/22/19 01:05 Respiratory Pattern Normal 08/22/19 01:05 Blood Pressure 146/81 H 08/22/19 07:15 Blood Pressure Position Sitting 08/17/19 08:59 Pulse Oximetry 94 L 08/22/19 07:15 Oxygen Delivery Method Room Air 08/22/19 07:15 Oxygen Flow Rate 0 08/22/19 07:15 Pain Level 0 08/22/19 07:15 Comment 08/21/19 23:56 Intake & Output 08/21/19 08/21/19 08/22/19 11:59 23:59 11:59 Intake Total 760 / 1200 440 / 1200 170.052 / 170.052 Output Total 1500 / 2500 1000 / 2500 450 / 450 Balance -740 / -1300 -560 / -1300 -279.948 / -279.948 Weight 154.2 kg Intake: IV 200 / 400 200 / 400 170.052 / 170.052 Oral 560 / 800 240 / 800 Output: Urine 1500 / 2500 1000 / 2500 450 / 450 Other: Urine Color Pale Straw Yellow Urine Appearance Clear Clear Clear Urine Odor Strong Comment LARGE VOID EMPTIED BY ADZ WORKER AT THIS TIME, PT DRY. Stool Size Moderate Stool Characteristics Soft Brown Voiding Methods Incontinent Bedside Commode Incontinent Laboratory Results WBC 3.27 k/cumm (4.4-10.8) L 08/21/19 06:30 RBC 2.64 m/cumm (4.00-5.20) L 08/21/19 06:30 Hgb 7.8 g/dL (12.0-15.5) L 08/21/19 06:30 Hct 25.0 % (36.0-46.0) L 08/21/19 06:30 MCV 94.7 fL (80-95) 08/21/19 06:30 MCH 29.5 pg (27.0-33.0) 08/21/19 06:30 MCHC 31.2 g/dL (32.0-36.0) L 08/21/19 06:30 RDW 15.6 % (11.7-14.6) H 08/21/19 06:30 Plt Count 217 x1000/uL (130-400) 08/21/19 06:30 MPV 8.9 fL (8.0-11.0) 08/21/19 06:30 Immature Gran % 0.6 % 08/21/19 06:30 Neutrophils % 52.2 08/21/19 06:30 Lymphocytes % 34.3 08/21/19 06:30 Monocytes % 9.5 08/21/19 06:30 Eosinophils % 3.1 08/21/19 06:30 Basophils % 0.3 08/21/19 06:30 Absolute Neutrophils 1.71 k/cumm (1.2-6.7) 08/21/19 06:30 Absolute Lymphocytes 1.12 k/cumm (1.2-3.4) L 08/21/19 06:30 Absolute Monocytes 0.31 k/cumm (0.11-0.7) 08/21/19 06:30 Absolute Eosinophils 0.10 k/cumm (0.0-0.7) 08/21/19 06:30 Absolute Basophils 0.01 k/cumm (0.0-0.2) 08/21/19 06:30 Differential Comment Rbc morph reviewed 08/18/19 07:15 RBC Morphology See below 08/18/19 07:15 Hypochromasia 1+ 08/18/19 07:15 Anisocytosis 1+ 08/18/19 07:15 PT 11.5 sec (9.3-11.0) H 08/17/19 09:20 INR 1.1 (0.9-1.1) 08/17/19 09:20 Sodium 139 mmol/L (136-145) 08/21/19 06:30 Potassium 3.7 mmol/L (3.5-5.1) 08/21/19 06:30 Chloride 102 mmol/L (98-107) 08/21/19 06:30 Carbon Dioxide 30.2 mmol/L (21.0-32.0) 08/21/19 06:30 Anion Gap 6.8 mmol/L (3-11) 08/21/19 06:30 BUN 17 mg/dL (7-18) 08/21/19 06:30 Creatinine 1.17 mg/dL (0.55-1.02) H 08/21/19 06:30 Estimated GFR/1.73 m2 47.18 (mL/min/1.73m2) 08/21/19 06:30 Glucose 139 mg/dL (74-106) H 08/21/19 06:30 Lactate 1.8 mmol/L (0.6-1.4) H 08/17/19 19:00 Calcium 8.3 mg/dL (8.5-10.1) L 08/21/19 06:30 Magnesium 1.9 mg/dL (1.8-2.4) 08/21/19 06:30 Total Bilirubin 0.5 mg/dL (0.2-1.0) 08/17/19 09:20 AST 25 U/L (15-37) 08/17/19 09:20 ALT 13 U/L (14-59) L 08/17/19 09:20 Alkaline Phosphatase 133 U/L (46-116) H 08/17/19 09:20 Troponin I < 0.05 ng/mL (<0.06) 08/17/19 12:15 Total Protein 7.5 g/dL (6.4-8.2) 08/17/19 09:20 Albumin 2.9 g/dL (3.4-5.0) L 08/17/19 09:20 Urine Color Yellow (Yellow) 08/20/19 16:10 Urine Clarity Clear (Clear) 08/20/19 16:10 Urine pH 5.5 (5-8) 08/20/19 16:10 Ur Specific [place] 1.015 (1.005-1.025) 08/20/19 16:10 Urine Protein 100 mg/dL (Negative) H 08/20/19 16:10 Urine Ketones Negative mg/dL (Negative) 08/20/19 16:10 Urine Blood Moderate (Negative) H 08/20/19 16:10 Urine Nitrite Negative (Negative) 08/20/19 16:10 Urine Bilirubin Negative (Negative) 08/20/19 16:10 Urine Urobilinogen 0.2 EU/dL (Up TO 0.2) 08/20/19 16:10 Ur Leukocyte Esterase Trace (Negative) H 08/20/19 16:10 Urine RBC >50 HPF (0-2) H 08/20/19 16:10 Urine WBC 20-50 HPF (0-5) H 08/20/19 16:10 Ur Epithelial Cells Few HPF (Negative) 08/20/19 16:10 Urine Crystals Few uric acid HPF (Negative) 08/20/19 16:10 Urine Bacteria Moderate HPF (Negative) 08/20/19 16:10 Urine Casts Negative LPF (Negative) 08/20/19 16:10 Urine Mucus Negative (Negative) 08/20/19 16:10 Urine Other Few transitional (Negative) 08/20/19 16:10 Ur Culture Indicated? Yes 08/20/19 16:10 Urine Glucose Negative mg/dL (Negative) 08/20/19 16:10 Stl C.difficile Tox PCR Negative (Negative) 08/19/19 09:40 COVID-19 PCR Negative (Negative) 08/17/19 11:00 Nasopharyn COVID-19 PCR Not Applicable 08/17/19 11:00 Ref Test Perform Site [facility] 08/17/19 11:00
--- NOTE | 2019-08-22 09:33 | CMPROGNOTE_ITS ---
- If Service Date Differs Date of service: 08/22/19 Time of Service: 09:34 Care Management Progress Note S/O: Candace remains afebrile. Her alex catheter was removed yesterday. This is day 3 of her antibiotic treatment. CM will continue to follow. A: Candace is a 59 year old female admitted to [facility] on 08/17/19 for UTI and dehydration. P: No change in plan. Anticipate Candace will return home when medically cleared with a resumption of RN, PT through [facility]. She will follow up with her PCP and discharge plan of care as directed. Her daughter, Kiki, will drive her home via private vehicle when ready. CM will continue to follow.
--- NOTE | 2019-08-22 11:42 | PT.INTREAT ---
Date of service: 08/22/19 Time of Service: 11:42 PT Notes Visit Reasons: UTI,DEHYDRATION Inpatient Physical Therapy Treatment Note [facility] Date: 08/22/2019 PRECAUTIONS: Fall. Standard. Activity as tolerated. SUBJECTIVE: I do not feel safe walking today as my blood sugar is way below baseline (87mg/dL). Patient states that she is only agreeable to seated exercises right now and hopes to do more tomorrow. OBJECTIVE: PAIN: Baseline pain of 6?7/10 in low back area specially during weight bearing activity. THERA EX: Tolerated ankle DF/PF x 20, quadriceps sets x 10, and gluteal sets x 10, LAQ x 10 for 2 sets, and seated hip flexion x 10 for 2 sets without any undue difficulty. ASSESSMENT: Limited ability today due to low blood sugar. She will continue to benefit from skilled physical therapy services to progress mobility level. PLAN: Patient will benefit from home health PT services in order to progress mobility level using least restrictive assistive ambulatory device, assess home safety, identify additional equipment needs, and establish a functional maintenance program that will increase ability of patient to remain at home. TREATMENT CODE/TIME: 20994 x 28 minutes beginning at 11:42 AM.
[2019-08-22] MEDS: Ondansetron 4 MG TAB 8 MG PO (12:17)
[2019-08-22] MEDS: Potassium Chloride 20 MEQ TABCR PO (12:18)
[2019-08-22 16:00] VITALS: BP 148/77; PULSE 63; RESP 18; TEMP 36.8; O2SAT 93
[2019-08-22 16:04] VITALS: O2SAT 94
[2019-08-22 19:45] VITALS: O2SAT 98
[2019-08-22] MEDS: DULoxetine 30 MG CAP 60 MG PO (21:55)
[2019-08-22 22:00] VITALS: BP 144/74; PULSE 71; RESP 18; TEMP 35.9; O2SAT 98
[2019-08-23 03:50] VITALS: BP 142/78; PULSE 68; RESP 16; TEMP 36.8; O2SAT 98
[2019-08-23] MEDS: Normal Saline Flush 10 ML SYR IVP ×3 (05:47→18:03)
[2019-08-23] MEDS: IMIPENEM/CILASTATIN 500 MG in Normal Saline 100 ML 200 MG IVPB ×3 (05:48→18:03)
[2019-08-23] MEDS: Levothyroxine 150 MCG TAB PO (05:48)
[2019-08-23] MEDS: Hydrocortisone 10 MG TAB 30 MG PO (07:48)
[2019-08-23] MEDS: Cyanocobalamin 500 MCG TAB 1000 MCG PO (07:49)
[2019-08-23] MEDS: Apixaban 5 MG TAB PO ×2 (07:49→21:20)
[2019-08-23] MEDS: Famotidine 20 MG TAB PO (07:49)
[2019-08-23] MEDS: Ferrous Sulfate 325 MG TAB PO ×2 (07:49→21:20)
[2019-08-23] MEDS: Pregabalin 100 MG CAP 200 MG PO ×3 (07:49→21:20)
[2019-08-23] MEDS: Fidaxomicin 200 MG TAB PO ×2 (07:49→21:20)
[2019-08-23] MEDS: Loratidine 10 MG TAB PO (07:49)
[2019-08-23] MEDS: Montelukast 10 MG TAB PO (07:49)
[2019-08-23] MEDS: Oxybutynin 5 MG TAB PO ×3 (07:49→21:20)
[2019-08-23] MEDS: Folic Acid 1 MG TAB PO (07:49)
[2019-08-23] MEDS: Tiotropium Bromide-Respimat 10 PUFF INH IH (07:58)
[2019-08-23] MEDS: Budesonide/Formoterol 160/4.5 6 GM 60 PUFF INH IH ×2 (07:58→21:19)
[2019-08-23 08:08] VITALS: PULSE 50; O2SAT 95
[2019-08-23] MEDS: HYDROcodone 5/Acetaminophen 325 TAB PO ×2 (09:18→16:45)
[2019-08-23 11:05] LABS: Abs Immature Grans 0.04 k/cumm (0.0-0.09); Absolute Basophil Count 0.01 k/cumm (0.0-0.2); Absolute Eosinophil Count 0.11 k/cumm (0.0-0.7); Absolute Lymphocyte Count 1.17 k/cumm (1.2-3.4); Absolute Monocyte Count 0.31 k/cumm (0.11-0.7); Absolute Neutrophil Count 3.95 k/cumm (1.2-6.7); Basophils % 0.2; HCT 28.4 % (36.0-46.0); HGB 8.7 g/dL (12.0-15.5); Immature Grans % 0.7 %; Lymphocytes % 20.9; Mean Corp. HGB Concentration 30.6 g/dL (32.0-36.0); Mean Corpuscular Hemoglobin 29.2 pg (27.0-33.0); Mean Corpuscular Volume 95.3 fL (80-95); Mean Platelet Volume 8.6 fL (8.0-11.0); Monocytes % 5.5; Neutrophils % 70.7; Platelet Count 233 x1000/uL (130-400); RBC 2.98 m/cumm (4.00-5.20); RBC Distribution Width 15.9 % (11.7-14.6); White Blood Cell Count 5.59 k/cumm (4.4-10.8)
[2019-08-23 11:18] LABS: Anion Gap 4.3 mmol/L (3-11); BUN 18 mg/dL (7-18); CO2 32.7 mmol/L (21.0-32.0); CREATININE 1.05 mg/dL (0.55-1.02); Calcium 8.5 mg/dL (8.5-10.1); Chloride 101 mmol/L (98-107); Estimated GFR 53.46 (mL/min/1.73m2); Glucose 203 mg/dL (74-106); Magnesium 2.1 mg/dL (1.8-2.4); Sodium 138 mmol/L (136-145); Troponin I < 0.05 ng/mL (<0.06)
[2019-08-23 11:24] LABS: TSH (W/Ref FT4) 0.15 uIU/mL (0.36-3.74)
[2019-08-23 11:40] LABS: FREE T4 0.96 ng/dL (0.76-1.46)
[2019-08-23] MEDS: Insulin Aspart 300 UNITS/3 ML PEN SC (12:14)
[2019-08-23] MEDS: Ondansetron 4 MG TAB 8 MG PO (12:53)
[2019-08-23] MEDS: Hydrocortisone 10 MG TAB PO (14:57)
--- NOTE | 2019-08-23 15:58 | CHAPLAIN ---
Candace told me more personal history today, telling me about the pets she has adopted over the years and the care she has given them. She the weekend wasn't great because her blood sugar levels were low. Candace's Daughter Kiki, is her primary home care administrator, but she has not been able to see Candace lately because of visiting police. Candace is in touch with Kiki by phone. I will continue to visit.
[2019-08-23 16:21] VITALS: BP 124/75; PULSE 54; RESP 15; TEMP 36.5; O2SAT 97
--- NOTE | 2019-08-23 16:35 | W.PM.PROGNOT ---
Date of Service Date of service: 08/23/19 Time of Service: 16:36 Assessment and Plan Assessment and plan (1) Urinary tract infection: Status: Acute Assessment and plan: Due to ESBL citrobacter, present on admission. Seems to be improving on imipenem (day 4). Recheck UA tomorrow - if cured, can be d/c'ed home. Qualifiers: Urinary tract infection type: site unspecified Hematuria presence: without hematuria Qualified Code(s): N39.0 - Urinary tract infection, site not specified (2) C. difficile colitis: Status: Acute Assessment and plan: Continue dificid. No recurrences of diarrhea so far. (3) Acute kidney injury superimposed on chronic kidney disease: Status: Resolved Assessment and plan: Consider resuming lasix, (4) History of pulmonary embolism: Status: Chronic Assessment and plan: No evidence of unusual hypoxia/symptoms. Continue anticoagulation (5) Adrenal insufficiency: Status: Chronic Assessment and plan: Adjusted hydrocortisone to also include 10 mg in the afternoon. (6) Diabetes mellitus: Status: Chronic Assessment and plan: Would not change insulin dose at this time Qualifiers: Diabetes mellitus type: type 2 Diabetes mellitus manager terminal insulin use: with manager terminal use Diabetes mellitus complication status: with kidney complications Diabetes mellitus complication detail: with chronic kidney disease Chronic kidney disease stage: stage 3 (moderate) Qualified Code(s): E11.22 - Type 2 diabetes mellitus with diabetic chronic kidney disease; N18.3 - Chronic kidney disease, stage 3 (moderate); Z79.4 - terminal gauger (current) use of insulin (7) COPD (chronic obstructive pulmonary disease): Status: Chronic Assessment and plan: Not in acute exacerbation. Continue current management. (8) Physical deconditioning: Status: Chronic Assessment and plan: Continue working with PT (9) DVT prophylaxis: Status: Acute Assessment and plan: fully anticoagulated (10) Discharge planning issues: Status: Acute Assessment and plan: DNR/DNI Possible discharge tomorrow Subjective Subjective Interval history since last seen: Ms Maynard states she feels better this afternoon than she did this morning and definitely better than yesterday. Pills help with nausea. Denies dizziness, chest pain, shortness of breath. No diarrhea. No dysuria. Exam Narrative Exam Narrative: General: Very pleasant Obese female, A&Ox3, sitting comfortably in a chair HEENT: EOMI, MMM Heart: RRR, no m/r/g Lungs: CTAB Abdomen: soft, obese, nontender Extremities: +1 BLE edema, no c/c. Objective Objective Clinical Data: Abnormal lab results 08/23/19 08/23/19 08/23/19 Range/Units 10:20 10:20 10:20 RBC 2.98 L (4.00-5.20) m/cumm Hgb 8.7 L (12.0-15.5) g/dL Hct 28.4 L (36.0-46.0) % MCV 95.3 H (80-95) fL MCHC 30.6 L (32.0-36.0) g/dL RDW 15.9 H (11.7-14.6) % Absolute Lymphocytes 1.17 L (1.2-3.4) k/cumm Carbon Dioxide 32.7 H (21.0-32.0) mmol/L Creatinine 1.05 H (0.55-1.02) mg/dL Glucose 203 H (74-106) mg/dL TSH 0.15 L (0.36-3.74) uIU/mL Vital Signs Temperature 36.5 C 08/23/19 16:21 Temperature Source Tympanic 08/23/19 16:21 Pulse 54 L 08/23/19 16:21 Pulse Rhythm Regular 08/23/19 07:50 Respiratory Rate 15 08/23/19 16:21 Respiratory Effort Non-Labored 08/23/19 07:50 Respiratory Depth Normal 08/23/19 07:50 Respiratory Pattern Normal 08/23/19 07:50 Blood Pressure 124/75 08/23/19 16:21 Blood Pressure Position Sitting 08/17/19 08:59 Pulse Oximetry 97 08/23/19 16:21 Oxygen Delivery Method Room Air 08/23/19 16:21 Oxygen Flow Rate 0 08/23/19 16:21 Pain Level 8 08/23/19 09:18 Comment 08/21/19 23:56 Intake & Output 08/22/19 08/23/19 08/23/19 23:59 11:59 23:59 Intake Total 780 / 1660.052 200 / 200 Output Total 150 / 850 Balance 630 / 810.052 200 / 200 Weight 153.2 kg Intake: IV 300 / 570.052 200 / 200 Oral 480 / 1090 Output: Urine 150 / 850 Other: Urine Color Yellow Urine Appearance Clear Clear Urine Odor None Stool Size Copious Stool Characteristics Soft Voiding Methods Bedside Commode Laboratory Results WBC 5.59 k/cumm (4.4-10.8) 08/23/19 10:20 RBC 2.98 m/cumm (4.00-5.20) L 08/23/19 10:20 Hgb 8.7 g/dL (12.0-15.5) L 08/23/19 10:20 Hct 28.4 % (36.0-46.0) L 08/23/19 10:20 MCV 95.3 fL (80-95) H 08/23/19 10:20 MCH 29.2 pg (27.0-33.0) 08/23/19 10:20 MCHC 30.6 g/dL (32.0-36.0) L 08/23/19 10:20 RDW 15.9 % (11.7-14.6) H 08/23/19 10:20 Plt Count 233 x1000/uL (130-400) 08/23/19 10:20 MPV 8.6 fL (8.0-11.0) 08/23/19 10:20 Immature Gran % 0.7 % 08/23/19 10:20 Neutrophils % 70.7 08/23/19 10:20 Lymphocytes % 20.9 08/23/19 10:20 Monocytes % 5.5 08/23/19 10:20 Eosinophils % 2.0 08/23/19 10:20 Basophils % 0.2 08/23/19 10:20 Absolute Neutrophils 3.95 k/cumm (1.2-6.7) 08/23/19 10:20 Absolute Lymphocytes 1.17 k/cumm (1.2-3.4) L 08/23/19 10:20 Absolute Monocytes 0.31 k/cumm (0.11-0.7) 08/23/19 10:20 Absolute Eosinophils 0.11 k/cumm (0.0-0.7) 08/23/19 10:20 Absolute Basophils 0.01 k/cumm (0.0-0.2) 08/23/19 10:20 Differential Comment Rbc morph reviewed 08/18/19 07:15 RBC Morphology See below 08/18/19 07:15 Hypochromasia 1+ 08/18/19 07:15 Anisocytosis 1+ 08/18/19 07:15 PT 11.5 sec (9.3-11.0) H 08/17/19 09:20 INR 1.1 (0.9-1.1) 08/17/19 09:20 Sodium 138 mmol/L (136-145) 08/23/19 10:20 Potassium 4.0 mmol/L (3.5-5.1) 08/23/19 10:20 Chloride 101 mmol/L (98-107) 08/23/19 10:20 Carbon Dioxide 32.7 mmol/L (21.0-32.0) H 08/23/19 10:20 Anion Gap 4.3 mmol/L (3-11) 08/23/19 10:20 BUN 18 mg/dL (7-18) 08/23/19 10:20 Creatinine 1.05 mg/dL (0.55-1.02) H 08/23/19 10:20 Estimated GFR/1.73 m2 53.46 (mL/min/1.73m2) 08/23/19 10:20 Glucose 203 mg/dL (74-106) H 08/23/19 10:20 Lactate 1.8 mmol/L (0.6-1.4) H 08/17/19 19:00 Calcium 8.5 mg/dL (8.5-10.1) 08/23/19 10:20 Magnesium 2.1 mg/dL (1.8-2.4) 08/23/19 10:20 Total Bilirubin 0.5 mg/dL (0.2-1.0) 08/17/19 09:20 AST 25 U/L (15-37) 08/17/19 09:20 ALT 13 U/L (14-59) L 08/17/19 09:20 Alkaline Phosphatase 133 U/L (46-116) H 08/17/19 09:20 Troponin I < 0.05 ng/mL (<0.06) 08/23/19 10:20 Total Protein 7.5 g/dL (6.4-8.2) 08/17/19 09:20 Albumin 2.9 g/dL (3.4-5.0) L 06/16/20 09:20 TSH 0.15 uIU/mL (0.36-3.74) L 08/23/19 10:20 Free T4 0.96 ng/dL (0.76-1.46) 08/23/19 10:20 Urine Color Yellow (Yellow) 08/20/19 16:10 Urine Clarity Clear (Clear) 08/20/19 16:10 Urine pH 5.5 (5-8) 08/20/19 16:10 Ur Specific [place] 1.015 (1.005-1.025) 08/20/19 16:10 Urine Protein 100 mg/dL (Negative) H 08/20/19 16:10 Urine Ketones Negative mg/dL (Negative) 08/20/19 16:10 Urine Blood Moderate (Negative) H 08/20/19 16:10 Urine Nitrite Negative (Negative) 08/20/19 16:10 Urine Bilirubin Negative (Negative) 08/20/19 16:10 Urine Urobilinogen 0.2 EU/dL (Up TO 0.2) 08/20/19 16:10 Ur Leukocyte Esterase Trace (Negative) H 08/20/19 16:10 Urine RBC >50 HPF (0-2) H 08/20/19 16:10 Urine WBC 20-50 HPF (0-5) H 08/20/19 16:10 Ur Epithelial Cells Few HPF (Negative) 08/20/19 16:10 Urine Crystals Few uric acid HPF (Negative) 08/20/19 16:10 Urine Bacteria Moderate HPF (Negative) 08/20/19 16:10 Urine Casts Negative LPF (Negative) 08/20/19 16:10 Urine Mucus Negative (Negative) 08/20/19 16:10 Urine Other Few transitional (Negative) 08/20/19 16:10 Ur Culture Indicated? Yes 08/20/19 16:10 Urine Glucose Negative mg/dL (Negative) 08/20/19 16:10 Stl C.difficile Tox PCR Negative (Negative) 08/19/19 09:40 COVID-19 PCR Negative (Negative) 08/17/19 11:00 Nasopharyn COVID-19 PCR Not Applicable 08/17/19 11:00 [facility] 08/17/19 11:00
--- NOTE | 2019-08-23 17:10 | PDOC.CMPRO ---
- If Service Date Differs Date of service: 08/23/19 Time of Service: 17:14 Care Management Progress Note S/O: Candace was sitting up in her chair when CM met with her. She stated that she wasn't feeling well today. Per provider, if her UTI is cleared tomorrow she may be ready for discharge. CM will continue to follow. A: Candace is a 59 year old female admitted to [facility] on 08/17/19 for UTI and dehydration. P: No change in plan. Anticipate Candace will return home when medically cleared with a resumption of RN, PT [facility]. She will follow up with her PCP and discharge plan of care as directed. Her daughter, Kiki, will drive her home via private vehicle when ready. CM will continue to follow
[2019-08-23 17:24] LABS: Troponin I < 0.05 ng/mL (<0.06)
[2019-08-23 19:55] VITALS: BP 124/63; PULSE 61; RESP 19; TEMP 36.2; O2SAT 99
[2019-08-23] MEDS: DULoxetine 30 MG CAP 60 MG PO (21:19)
[2019-08-24] MEDS: IMIPENEM/CILASTATIN 500 MG in Normal Saline 100 ML 200 MG IVPB ×2 (00:04→05:56)
[2019-08-24 00:22] VITALS: BP 132/66; PULSE 73; RESP 21; TEMP 36.6; O2SAT 94
[2019-08-24] MEDS: Normal Saline Flush 10 ML SYR IVP (05:55)
[2019-08-24] MEDS: Levothyroxine 150 MCG TAB PO (05:56)
[2019-08-24] MEDS: Ondansetron 4 MG TAB 8 MG PO (05:56)
[2019-08-24 06:58] VITALS: BP 119/63; PULSE 57; RESP 19; TEMP 36.5; O2SAT 98
[2019-08-24 07:38] LABS: Anion Gap 4.2 mmol/L (3-11); BUN 18 mg/dL (7-18); CO2 32.8 mmol/L (21.0-32.0); CREATININE 1.08 mg/dL (0.55-1.02); Calcium 8.4 mg/dL (8.5-10.1); Chloride 102 mmol/L (98-107); Estimated GFR 51.75 (mL/min/1.73m2); Glucose 99 mg/dL (74-106); Sodium 139 mmol/L (136-145)
[2019-08-24] MEDS: Hydrocortisone 10 MG TAB 30 MG PO (08:45)
[2019-08-24] MEDS: Pregabalin 100 MG CAP 200 MG PO (08:46)
[2019-08-24] MEDS: Fidaxomicin 200 MG TAB PO (08:46)
[2019-08-24 08:47] LABS: Bilirubin Negative (Negative); Blood Negative (Negative); Clarity Clear (Clear); Glucose Negative (Negative); Ketones Negative (Negative); Leukocyte Esterase Negative (Negative); Nitrite Negative (Negative); Urobilinogen 0.2 EU/dL (Up TO 0.2); pH 5.5 (5-8)
[2019-08-24] MEDS: Ferrous Sulfate 325 MG TAB PO (08:48)
[2019-08-24] MEDS: Famotidine 20 MG TAB PO (08:48)
[2019-08-24] MEDS: Loratidine 10 MG TAB PO (08:48)
[2019-08-24] MEDS: Apixaban 5 MG TAB PO (08:48)
[2019-08-24] MEDS: Folic Acid 1 MG TAB PO (08:49)
[2019-08-24] MEDS: Oxybutynin 5 MG TAB PO (08:49)
[2019-08-24] MEDS: Montelukast 10 MG TAB PO (08:49)
[2019-08-24] MEDS: Cyanocobalamin 500 MCG TAB 1000 MCG PO (08:56)
[2019-08-24] MEDS: Budesonide/Formoterol 160/4.5 6 GM 60 PUFF INH IH (09:34)
[2019-08-24] MEDS: Tiotropium Bromide-Respimat 10 PUFF INH IH (09:34)
[2019-08-24] MEDS: HYDROcodone 5/Acetaminophen 325 TAB PO (11:44)
[2019-08-24] MEDS: Insulin Aspart 300 UNITS/3 ML PEN SC (11:45)
--- NOTE | 2019-08-24 12:02 | W.PM.DS.N ---
Date of service: 08/24/19 Time of Service: 12:02 DS: Diagnosis Discharge Diagnosis (1) Urinary tract infection: Status: Acute (2) C. difficile colitis: Status: Acute (3) Acute kidney injury superimposed on chronic kidney disease: Status: Resolved (4) History of pulmonary embolism: Status: Chronic (5) Adrenal insufficiency: Status: Chronic (6) Diabetes mellitus: Status: Chronic (7) COPD (chronic obstructive pulmonary disease): Status: Chronic (8) Physical deconditioning: Status: Chronic Discharge Plan Disposition Patient Disposition: HOME W/HOME HEALTH SERVICE Condition: Improving Discharge Details Chief Complaint: GenMedical Reason For Visit: UTI,DEHYDRATION Admit Date/Time: 08/17/19 10:59 Admit Provider: Luke Huynh Attending Provider: Luke Hyunh Primary Care Provider: ANNA TORO ED Provider: Inocencio Alcazar Hospital Course Hospital Course: This is a 59-year-old female patient well-known to the hospitalist service with a past medical history significant for recurrent C. difficile colitis stage IV breast cancer chronic kidney disease adrenal insufficiency on chronic steroids hypothyroidism morbid obesity diabetes mellitus recently hospitalized for C. difficilecolitis sent home on Dificid and was doing well until she developed weakness over the weekend she did come to the emergency department for evaluation and was found to have a urinary tract infection. She was admitted under hospitalist service on ceftriaxone. On her first hospital night she spiked a fever ciprofloxacin was added she also was placed on stress dose steroids for hypotension. Hemodynamically she stabilized and remained afebrile but she remained quite weak and fatigued. Day 3 of Cipro and 4 of ceftriaxone she started running fevers again. Hemodynamically she was stable but I did change her antibiotics to cover for ESBL urinary tract infection as she did not seem to be responding to the Cipro and ceftriaxone repeat urine did show ongoing pyuria. We started imipenem 500 mg 4 times daily. Her urine ultimately grew Citrobacter which was sensitive to the imipenem. She now began improving feeling stronger working with physical therapy. She no longer had fevers and feels at her baseline. A repeat urinalysis does show no evidence of ongoing pyuria. She is to be discharged to home with resumption of her home health services. She was advised to continue dificid for 2 more days. She was no longer having diarrhea on this hospitalization and a C. difficile result was negative for untreated infection. Case and discharge plan discussed with Dr. Reno who is in agreement Home Meds and New Rx's Prescriptions: Continued pregabalin [Lyrica] 200 MG capsule 200 mg PO TID RF: 0 montelukast [Singulair] 10 MG tablet 10 mg PO DAILY RF: 0 cyanocobalamin (vitamin B-12) [Vitamin B-12] 1,000 MCG tablet 1,000 mcg PO DAILY RF: 0 folic acid 1 MG tablet 1 mg PO DAILY RF: 0 Spiriva Respimat 4 GM mist 1 puff Inhalation DAILY RF: 0 budesonide-formoterol [Symbicort] 10.2 GM HFA aerosol inhaler 2 puff Inhalation BID RF: 0 ondansetron HCl [Zofran] 8 MG tablet 8 mg PO TID PRNRF: 0 levothyroxine 150 mcg Tablet 150 mcg PO DAILY RF: 0 Trulicity 1.5 mg/0.5 mL Pen Injector 1.5 mg SUBCUT QWEEK RF: 0 benzonatate 200 mg Capsule 200 mg PO TID PRN (Reason: cough) Qty: 15 RF: 0 fentanyl 50 mcg/hr patch 72 hour 1 patch TD Q72H Qty: 2 RF: 0 Dificid 200 mg Tablet 200 mg PO BID Qty: 15 RF: 0 loratadine 10 mg Tablet 10 mg PO DAILY RF: 0 duloxetine [Cymbalta] 60 mg Capsule,Delayed Release(Dr/Ec) 60 mg PO HS RF: 0 letrozole 2.5 mg Tablet 2.5 mg PO DAILY RF: 0 hydrocodone-acetaminophen 5-325 mg Tablet 2 tab PO Q4H PRN PRNQty: 5 RF: 0 omeprazole 40 mg Capsule,Delayed Release(Dr/Ec) 40 mg PO DAILY RF: 0 carbamazepine [Tegretol XR] 200 mg Tablet Extended Release 12 Hr 200 mg PO BID RF: 0 ferrous sulfate 325 mg (65 mg iron) Tablet 325 mg PO DAILY RF: 0 Lactobacillus acidophilus [Acidophilus] Capsule 1 cap DAILY RF: 0 Verzenio 150 mg Tablet 150 mg PO BID RF: 0 oxybutynin chloride 5 mg Tablet 5 mg PO TID RF: 0 cranberry 450 mg Tablet 450 mg PO DAILY RF: 0 Narcan 4 mg/actuation Hubert,Non-Aerosol 1 spray INTRANASAL PRN PRNRF: 0 Glucagon (HCl) Emergency Kit 1 mg Recon Soln 1 mg PRN PRNRF: 0 Eliquis 5 mg tablet 5 mg PO BID RF: 0 guaifenesin [Mucinex] 600 mg tablet extended release 12hr 600 mg PO BID PRNRF: 0 Humulin R U-500 (Conc) Kwikpen 500 unit/mL (3 mL) insulin pen 40 unit SUBCUT QNOON RF: 0 Humulin R U-500 (Conc) Kwikpen 500 unit/mL (3 mL) insulin pen 40 unit SUBCUT QPM RF: 0 Humulin R U-500 (Conc) Kwikpen 500 unit/mL (3 mL) insulin pen 70 unit SUBCUT QAM RF: 0 Lactobacillus acidophilus Capsule 1,000 mmu cells PO BID Qty: 30 RF: 0 Changed hydrocortisone 10 mg Tablet 5 mg PO DAILY@1500 Qty: 0 RF: 0 hydrocortisone 5 mg Tablet 20 mg PO DAILY Qty: 0 RF: 0 Discontinued hydrocortisone 5 mg Tablet 30 mg PO DAILY Qty: 0 RF: 0 Discharge Instructions Instructions: Urinary Tract Infection in Women (DC), C Diff (Clostridium Difficile) Infection (DC) Additional Instructions: you completed your antibiotics for urinary tract infection continue you dificid for 2 more days then stop. drink at least 6-8 glasses of water daily to stay well hydrated. Stand Alone Forms: Nursing Discharge Form Referrals: ANNA TORO [Primary Care Provider] - 08/30/19 2:40 pm (one week) Activity:: Activity as Tolerated Equipment/Supplies:: No Equipment Needed Diet:: As Tolerated Discharge Orders Discharge Orders: Discharge Order (Routine); Ordered 08/24/19 Ordered By: Bhargavi Myers DS: Summary Status at Discharge Functional status at discharge: uses cane/walker Overall status at discharge: patient is progressing back to baseline Mental Status: mental status grossly normal Speech and Movement: speech and movement normal Mood: congruent mood Affect: normal affect Exam Narrative Exam Narrative: Const General: cooperative and no acute distress Nutritional Appearance: obese Orientation: alert, awake and oriented x3 HENMT Head: normal to inspection, normocephalic and atraumatic Mouth: oral mucosae normal Teeth and gingiva: edentulous Resp Effort & Inspection: normal respiratory effort Auscultation: clear to auscultation bilaterally and diminished lung sounds bilaterally Cardio Rate: regular rate Rhythm: regular rhythm GI Inspection: large pannus and obesity Palpation: soft Auscultation: normal bowel sounds Skin Lesions: lesion noted Neuro General: patient alert, patient awake and patient oriented x3 Cranial Nerves: CN's II-XI intact bilaterally Cognition: normal cognition Speech: speech normal Motor: muscle tone normal throughout Extrem General: full ROM and edema (trace, reports no increased edema, chronic discoloration to BLE) Laterality: bilateral Psych Mental Status: mental status grossly normal Speech and Movement: speech and movement normal Mood: congruent mood Affect: normal affect Psych Mental Status: mental status grossly normal Speech and Movement: speech and movement normal Mood: congruent mood Affect: normal affect DS: Data Vitals/I&O Vitals and I&O: Vital Signs Temperature 36.5 C 08/24/19 06:58 Temperature Source Temporal Artery Scan 08/24/19 06:58 Pulse 57 L 08/24/19 06:58 Pulse Rhythm Regular 08/24/19 08:30 Respiratory Rate 19 08/24/19 06:58 Respiratory Effort Non-Labored 08/24/19 08:30 Respiratory Depth Normal 08/24/19 08:30 Respiratory Pattern Normal 08/24/19 08:30 Blood Pressure 119/63 08/24/19 06:58 Blood Pressure Position Sitting 08/17/19 08:59 Pulse Oximetry 98 08/24/19 06:58 Oxygen Delivery Method Room Air 08/24/19 06:58 Oxygen Flow Rate 0 08/24/19 06:58 Pain Level 8 08/24/19 06:58 Comment 08/21/19 23:56 Intake & Output 08/23/19 08/24/19 08/24/19 23:59 11:59 23:59 Intake Total 680 / 880 340 / 340 Output Total 350 / 350 Balance 680 / 880 -10 / -10 Weight 151.8 kg Intake: IV 200 / 400 100 / 100 Oral 480 / 480 240 / 240 Output: Urine 350 / 350 Other: Urine Color Pale Yellow Urine Appearance Clear Clear Urine Odor None Comment Pt got up to the commode to urinate Stool Size Moderate Moderate Stool Characteristics Soft Liquid Liquid Voiding Methods Incontinent Data Completed and Pending Labs on day of discharge: Labs from last 24 hours 08/24/19 08/24/19 08/23/19 06:49 06:08 16:50 Sodium 139 Potassium 4.0 Chloride 102 Carbon Dioxide 32.8 H Anion Gap 4.2 BUN 18 Creatinine 1.08 H Estimated GFR/1.73 m2 51.75 Glucose 99 D Calcium 8.4 L Magnesium 2.0 Troponin I < 0.05 Urine Color Yellow Urine Clarity Clear Urine pH 5.5 Ur Specific [place] 1.020 Urine Protein Negative Urine Ketones Negative Urine Blood Negative Urine Nitrite Negative Urine Bilirubin Negative Urine Urobilinogen 0.2 Ur Leukocyte Esterase Negative Urine Glucose Negative [facility] Medical History C. difficile diarrhea (Acute) Cancer related pain (Chronic) much improved with fentanyl patch Carpal tunnel syndrome (Acute) Chronic adrenal insufficiency (Acute) Chronic pain (Chronic) Chronic respiratory failure with hypoxia (Chronic) Chronic venous stasis dermatitis (Chronic) COPD (chronic obstructive pulmonary disease) (Chronic) On nocturnal oxygen - 2L prn Depression (Chronic) Diabetes mellitus (Chronic) Insulin dependent Diverticulosis (Acute) Dyslipidemia (Chronic) Goals of care, counseling/discussion (Acute) History of breast cancer (Chronic) metastatic, with lymphatic spread and bone mets Hyperlipidemia (Acute) Hypopituitarism (Chronic) Hypothyroidism (Chronic) Influenza B (Acute) Iron deficiency anemia (Acute) Metastatic breast cancer (Chronic) Obesity (Chronic) Obstructive sleep apnea (Chronic) per [facility] records Palliative care patient (Chronic) Pneumonia (Acute) POLST (Physician Orders for Life-Sustaining Treatment) (Acute) done 03/26/19; sent to [facility], [facility], [facility], original to her Restless leg syndrome (Acute) Spinal stenosis (Acute) Stage IV breast cancer in female (Chronic) Uncontrolled pain (Resolved) Surgical History H/O bilateral mastectomy (Acute) H/O colonoscopy with polypectomy (Acute) History of carpal tunnel release of both wrists (Acute) Port-A-Cath in place (Acute) Status post transsphenoidal pituitary resection (Acute) Family History Father , age 83 from complications of diabetes Prostate cancer Diabetes Mother , age 79 from complications of Crohn's disease and colitis Crohn's disease Colitis Daughter No problems noted. Daughter No problems noted. Brother No problems noted. Sister Diabetes Obesity Sister No problems noted. Sister No problems noted. Sister No problems noted. Social History Smoking/Tobacco Use Status: Former Tobacco Use Alcohol Intake: never Drug use: Never Substance use type: does not use Caregiver/Support person: Yes Household members: children Number of Children: 2 Communication Needs: Hard of Hearing and Corrective Lenses Education Level: middle school Do you need help understanding health information?: Always current occupation: on disability What is your relationship status?: How often do you talk on the phone with friends or family?: once per week How often do you get together with friends or relatives?: three or more times per week Panel score (0-1 are the most socially isolated patients): 1 What type of physical activity do you participate in: none, sedentary lifestyle, wheelchair-bound and additional Details: needs a new wheelchair, cannot walk far, just a few steps Special pedro pablo needs: No Do you feel safe at home: Yes Do you feel safe in your relationship?: Yes Additional Social history: , with 2 children. She is not working and on disability. Has a history of tobacco, quit in 1992. Reports rare use of alcohol only. Lives with daughter. Uses a walker to ambulate. Hard to do recently, depending more on WC. In a lot of pain. Recent scans show progression of breast cancer.
--- NOTE | 2019-08-24 14:18 | PDOC.CMDIS ---
- If Service Date Differs Date of service: 08/24/19 Time of Service: 14:19 LACE Index Scoring Tool - Questions: Length of Stay (in days): 7 - 13 Acuity (Admit via E.D.?): Yes Comorbidities: Diabetes w/o Complication, Chronic Pulmonary Disease, Metastatic Solid Tumor E.D. Visits: 11 - Answers: Total Score: 17 Risk of Readmission: High Risk Care Management Discharge Reason for Hospitalization: UTI, Dehydration Discharge Plan: Candace will return home with a resumption of HH RN, PT through [facility]. CM contacted [facility] to alert them of her d/c, and also sent her discharge summary to their intake. Her daughter, Kiki will drive her home via private vehicle. She will follow up with her PCP, Palliative Care and her discharge plan of care. She is happy to be going home. Patient/Family Education Needs: Review discharge instructions regarding activity levels and medications, discussion of self care needs and goals of care. Services Needed at Discharge: Home Health Care Services ([facility])
--- NOTE | 2019-08-24 17:00 | PT.INDS ---
Date of service: 08/24/19 Time of Service: 15:43 PT Notes Visit Reasons: UTI,DEHYDRATION Inpatient Physical Therapy Discharge Summary Dates: 08/24/2019 Dates of Service: 08/18/2019 through 08/24/2019 Referring Doctor: Bhargavi Myers NP PT Orders: PT CONSULT: Limited ability Precautions: Fall. Standard. Activity as tolerated. Patient Profile/Admitting Diagnosis: Candace is a 59-year-old female who presented to the ED on 08/17/2019 with chief complaints of generalized weakness and inability to safely ambulate. Patient is diagnosed with UTI,acute dehydration, C. difficile colitis, acute kidney injury, and pulmonary embolism and with referral for skilled physical therapy services in order to address resulting impairments in mobility performance. PMHX: Medical History C. difficile diarrhea (Acute) Cancer related pain (Chronic) much improved with fentanyl patch Carpal tunnel syndrome (Acute) Chronic adrenal insufficiency (Acute) Chronic pain (Chronic) Chronic respiratory failure with hypoxia (Chronic) Chronic venous stasis dermatitis (Chronic) COPD (chronic obstructive pulmonary disease) (Chronic) On nocturnal oxygen - 2L prn Depression (Chronic) Diabetes mellitus (Chronic) Insulin dependent Diverticulosis (Acute) Dyslipidemia (Chronic) Goals of care, counseling/discussion (Acute) History of breast cancer (Chronic) metastatic, with lymphatic spread and bone mets Hyperlipidemia (Acute) Hypopituitarism (Chronic) Hypothyroidism (Chronic) Influenza B (Acute) Iron deficiency anemia (Acute) Metastatic breast cancer (Chronic) Obesity (Chronic) Obstructive sleep apnea (Chronic) per [facility] records Palliative care patient (Chronic) Pneumonia (Acute) POLST (Physician Orders for Life-Sustaining Treatment) (Acute) done 03/26/19; sent to [facility], [facility], original to her Restless leg syndrome (Acute) Spinal stenosis (Acute) Stage IV breast cancer in female (Chronic) Uncontrolled pain (Resolved) Surgical History H/O bilateral mastectomy (Acute) H/O colonoscopy with polypectomy (Acute) History of carpal tunnel release of both wrists (Acute) Port-A-Cath in place (Acute) Status post transsphenoidal pituitary resection (Acute) Social History/Home Situation: Candace lives with her daughter in [place], [place] in a two-story house with a ramp to enter with rails on both sides. Patient has stairs to the second floor of the house but has everything she needs on the first floor. She is disabled. She has 2 daughters locally. She receives choices for care highest needs, and her daughter Kiki is her primary provider for 12 years now. Kiki's provides assistance with bathing and does meal preapration and assistance with lower body dressing. She was independent with front-wheeled walker for in-house ambulation and uses the 4-wheeled walker for outdoor ambulation. She has to walk about 80-90 feet to get to her car. She is dependent on her daughter for transportation to and from appointments. Daughter also provides assistance with bathing patient's back due to body habitus. Equipment Owned/DME: Bariatric FWW, bariatric hospital bed, bariatric recliner, bariatric front wheeled walker, new bariatric wheelchair with seat and back cushions Subjective: Candace is okay with going home today as long as her infection is resolved. She reports that her ability to move is very much improved and hopes to have HH PT once she goes home. Objective: General Observation: Hemosiderin staining observed in bilateral distal legs from CVI. Abdominal panniculus. Mental Status: Alert and oriented x 4 Pain: 3-4/10 low back area ROM: Right Upper Extremity: Shoulder flexion 90-100 degrees. Elbow flexion WFL. Hands/wrist and fingers are WFL. Left Upper Extremity: Shoulder flexion 90-100 degrees. Elbow flexion WFL. Hands/wrist and fingers are WFL. Right Lower Extremity: Patient is able to bend hip to about 20 degrees beyond 90 while seated at edge of bed. Knee flexion WFL. Dorsiflexion/plantarflexion WFL. Left Lower Extremity: Patient is able to bend hip to about 10 degrees beyond 90 while seated at edge of bed. Knee flexion WFL. Dorsiflexion/plantarflexion WFL. Strength: Right Upper Extremity: Shoulder flexion 3-/5. Elbow flexion 4/5. Flat Folding Machine Operator strong and functional Left Upper Extremity: Shoulder flexion 3-/5. Elbow flexion 4/5. Flat Folding Machine Operator strong and functional. Right Lower Extremity: Hip flexion 3-/5. Hip extension 3/5. Knee flexion 4/-5. Knee extension 4-/5. Ankle dorsiflexion/plantarflexion 4/5. Left Lower Extremity: Hip flexion 3-/5. Hip extension 3/5. Knee flexion 4-/5. Knee extension 4-/5. Ankle dorsiflexion/plantarflexion 4/5. Bed Mobility/Transfers: Sit to stand from bedside recliner SBA requiring use of B hands Stand to sit SBA Bed to chair SBA requiring use of B hands Chair to bed SBA requiring use of B hands Gait: Patient tolerated level surface ambulation of 150 feet using bariatric front wheeled walker with SBA of PT and NO wheelchair follow. Patient demonstrated minimal breathlessness and fatigue after activity. Step to gait pattern. Balance: Static Sitting: Good Dynamic Sitting: Good Static Standing: Fair Dynamic Standing: Fair Assessment: Candace demonstrates improved functional mobility level but continues to require use of front wheeled walker for mobility ADL performance. She will continue to benefit from continued services at home to facilitate a smooth transition and progress mobility level. Goals: Goals X 1 week 1. Supine-Sit minimal assist MET 2. Sit-Supine minimal assist MET 3. Sit-Stand minimal assist MET 4. Stand-Sit minimal assist MET 5. Bed-Chair minimal assist MET 6. Chair-Bed minimal assist MET 7. Indoor ambulation using FWW for at least 50 feet MET needing SBA 8. Independent with home exercise program MET 9. Static/dynamic standing balance/tolerance good NOT MET DISCHARGE RECOMMENDATIONS: Patient will benefit from home health PT services in order to progress mobility level using four-wheeled walker, assess home safety, identify additional equipment needs, and cotninue with a functional maintenance program that will increase ability of patient to remain at home with daughter. TREATMENT CODE/TIME: 31366 x 1 unit and 27424 for . Thank you very much for this referral. Allie Miguel PT, DPT, CLT [facility] at [place], [place]
== END 2019-08-24 13:46 | disposition home health service (06) | DRG 690 ==
LOC: ER 11:32 → MS 11:40
PROVIDERS: Internal Medicine; Nurse Practitioner Acute Care; Admitting Provider Internal Medicine; Emergency Provider Student in an Organized Health Care Education/Training Program; PCP Nurse Practitioner Family; Visit Provider Internal Medicine
DX: N39.0 Urinary tract infection, site not specified (principal); C79.51 Secondary malignant neoplasm of bone; J96.11 Chronic respiratory failure with hypoxia; E23.0 Hypopituitarism; Z68.42 Body mass index [BMI] 45.0-49.9, adult; Z16.29 Resistance to other single specified antibiotic; Z16.12 Extended spectrum beta lactamase (ESBL) resistance; E87.5 Hyperkalemia; R53.1 Weakness; C50.919 Malignant neoplasm of unspecified site of unspecified female breast; Z79.899 Other long term (current) drug therapy; I87.2 Venous insufficiency (chronic) (peripheral); F32.9 Major depressive disorder, single episode, unspecified; G89.3 Neoplasm related pain (acute) (chronic); E78.5 Hyperlipidemia, unspecified; E03.9 Hypothyroidism, unspecified; D50.9 Iron deficiency anemia, unspecified; E66.9 Obesity, unspecified; G47.33 Obstructive sleep apnea (adult) (pediatric); G25.81 Restless legs syndrome; M48.00 Spinal stenosis, site unspecified; Z90.13 Acquired absence of bilateral breasts and nipples; Z87.891 Personal history of nicotine dependence; B96.89 Other specified bacterial agents as the cause of diseases classified elsewhere; Z79.52 Long term (current) use of systemic steroids; E86.0 Dehydration; I95.9 Hypotension, unspecified; Z79.01 Long term (current) use of anticoagulants
CPT/HCPCS: 36410; 36415; 51702; 80048; 80053; 87040; 87077; 93005; 94640; 96361; 96374; 97110; 97162; 97530; 99223; 99232; 99233; 99239; 99285; U0003; 71045; 81003; 81015; 83605; 83735; 84439; 84443; 84484; 85025; 85610; 87086; 87186; 87324; 87798; 93010; J0696; J0743; J0744; J1720; J3475; J3490; J8597

== ENCOUNTER 2019-09-09 21:56 | Inpatient (IN) | payer MEDICARE, MEDICAID, SELFPAY ==
[2019-09-09] VITALS (14 sets, daily range): BP systolic 109–132; BP diastolic 66–99; PULSE 110–138; RESP 16–28; TEMP 38; O2SAT 93–97
--- NOTE | 2019-09-09 22:00 | RT.EKG_ITS ---
APPROVED REPORT Exam: Resting ECG Patient Location: E HR:115 bpm ECG Measurements Heart Rate 115 AXIS PA 178 P 66 QRSd 100 QRS 48 QT 315 T 39 QTc 435 <Conclusion> Sinus tachycardia...rate> 99 Low voltage, precordial leads...precordial leads <1.0mV Normal [place] Non-specific ST changes with mild ST depression laterally. No change from previous dated 08/17/2019.
--- NOTE | 2019-09-09 22:35 | ED.GENADUL_ITS ---
Discharge Plan Disposition Patient Disposition: [facility] INPATIENT Condition: Stable Discharge Details Chief Complaint: GenMedical Clinical Impression: Urinary tract infection, Weakness generalized, Acute confusion due to infection, Left lower lobe pneumonia Admit Date/Time: 09/10/19 00:43 Admit Provider: Vince Ta Attending Provider: Vince Ta Primary Care Provider: ANNA TORO ED Provider: Kenia Melgoza Discharge Data Discharge Date/Time-TO BE ENTERED AT DEPARTURE: 09/10/19 01:50 Medical Decision Making 59-year-old obese female presents to the ER via EMS with chief complaint of altered mental status. Patient was with her daughter who thought that patient was incoherent may be dehydrated. Patient's only complaint upon initial exam is that she is tired. She has no focal neuro deficits but does have confused verbal responses to questioning. Her BGL upon arrival was 231. She does have a history of chronic renal insufficiency, chronic regional adrenal insufficiency, C. difficile and UTI was recently admitted and discharged August 23. She is incontinent of urine upon arrival. She does have a history of diabetes mellitus, diverticulosis, stage IV breast cancer, obesity, sleep apnea, pneumonia. She does have an in place Port-A-Cath in her right anterior chest wall which is not been accessed in quite some time. 2245: At this time work-up ordered including CBC, CMP, lactate, blood cultures x2, urinalysis, serial troponins, magnesium head CT, chest x-ray, EKG was obtained and reviewed by ER attending Dr. Ramu Presley MD which is unchanged from previous. At this time strongly suspected of UTI or recurrence of C. difficile colitis due to patient's history. She is incontinent of urine and smell strongly foul urine. 2311: Spoke with Daughter Bhargavi who reports that at approximately 1600 patient became very confused and weak. Daughter states that this is the presentation when she has UTI's. Daughter states that she is not currently on any antibiotics at this time. At this time expected disposition is admission for recurrent UTI, confusion, and weakness. 0001: Imipenem 500 mg IV piggyback ordered due to med record review and noted that it last admission patient was treated with imipenem 500 mg 4 times a day and had a negative urine culture after that. COVID-19 test ordered in anticipation of patient admission. Additional 500 mils normal saline ordered. Initial output Mendoza catheter was 100 mils of dark urine or less. TECHNIQUE: Imaging protocol: XR of the chest Views: 2 views. COMPARISON: CR XR PORTABLE CHEST AP 08/17/2019 9:40 AM FINDINGS: Tubes, catheters and devices: Central infusion device unchanged in position. Lungs: Retrocardiac left lower lobe infiltrate. Pleural space: Unremarkable. No pleural effusion. No pneumothorax. Heart/Mediastinum: Unremarkable. No cardiomegaly. Bones/joints: Unremarkable. Soft tissues: Surgical clips inferolaterally about right chest wall as well as overlying lower left hemithorax and soft tissues about inferolateral left chest wall. IMPRESSION: Left lower lobe pneumonia. Thank you for allowing us to participate in the care of your patient COMPARISON: CT HEAD WITH/WITHOUT CONTRAST 04/03/2017 12:34 PM FINDINGS: Brain: There is moderate diffuse cerebral atrophy present, consistent with this patient's age. No hemorrhage. Unremarkable white matter. No mass effect. Ventricles: Normal. No ventriculomegaly. Bones/joints: Unremarkable. No acute fracture. Sinuses: Several opacified ethmoid air cells. Small cyst or polyp in right maxillary sinus. No fluid levels. Mastoid air cells: Visualized mastoid air cells are well aerated. Soft tissues: Unremarkable. IMPRESSION: 1. No acute intracranial abnormality. 2. Sinus disease. Differential diagnosis includes pneumonia, UTI, recurrence of C. difficile colitis, dehydration, CVA (low this is unlikely due to no focal neuro deficits), 0031: Spoke with Dr. Vince Ta who is on for hospitalist who agrees to accept patient for admission for left lower lobe pneumonia and recurrent UTI this is complicated by weakness and confusion. He does recommend stress dose of steroids IV due to adrenal insufficiency. 100 milligrams hydrocortisone IV piggyback ordered. At the time of this dictation patient was resting quietly in bed breathing eupneic on monitor, informed of plan to admit patient to the hospital, verbalized understanding. Will call and speak with Bhargavi her daughter again and inform her of the plan of care. Patient's vital signs are somewhat improving her heart rate is now 108, she is satting 100% on 2 L nasal cannula, blood pressure is 133/56, imipenem is done infusing and she is received 1 L normal saline. Patient remained hemodynamically stable throughout stay and was hemodynamically stable at the time of this dictation. This text was generated using Dragon dictation system, please disregard any oddities of phrase or misspellings. HPI General Mode of arrival: EMS . Date/Time Provider Initiated Documentation: 09/09/19 22:10 . Limitations to Documentation: altered mental status . Information obtained by: patient and EMS . HPI Narrative: 59-year-old obese female presents to the ER via EMS with chief complaint of altered mental status. Patient was with her daughter who thought that patient was incoherent may be dehydrated. Patient's only complaint upon initial exam is that she is tired. She has no focal neuro deficits but does have confused verbal responses to questioning. Her BGL upon arrival was 231. She does have a history of C. difficile and UTI was recently admitted and discharged August 23. She is incontinent of urine upon arrival. She does have a history of diabetes mellitus, diverticulosis, stage IV breast cancer, obesity, sleep apnea, pneumonia and she is on palliative care. Related Data Home Medications Medication Instructions Recorded Confirmed Spiriva Respimat 1 puff INHALATION DAILY 04/03/17 09/09/19 budesonide-formoterol [Symbicort] 2 puff INHALATION BID 04/03/17 09/09/19 cyanocobalamin (vitamin B-12) 1,000 mcg PO DAILY 04/03/17 09/09/19 [Vitamin B-12] folic acid 1 mg PO DAILY 04/03/17 09/09/19 montelukast [Singulair] 10 mg PO DAILY 04/03/17 09/09/19 ondansetron HCl [Zofran] 8 mg PO TID PRN 04/03/17 09/09/19 pregabalin [Lyrica] 200 mg PO TID 04/03/17 09/09/19 Trulicity 1.5 mg SUBCUT QWEEK 05/06/18 09/09/19 levothyroxine 150 mcg PO DAILY 05/06/18 09/09/19 benzonatate 200 mg PO TID PRN #15 cap 05/10/18 09/09/19 duloxetine [Cymbalta] 60 mg PO HS 02/02/19 09/09/19 loratadine 10 mg PO DAILY 02/02/19 09/09/19 letrozole 2.5 mg PO DAILY 02/04/19 09/09/19 hydrocodone-acetaminophen 2 tab PO Q4H PRN PRN #5 tab 03/28/19 09/09/19 fentanyl 1 patch TD Q72H #2 each 04/20/19 09/09/19 Eliquis 5 mg PO BID 07/25/19 09/09/19 Glucagon (HCl) Emergency Kit 1 mg PRN PRN 07/25/19 09/09/19 Humulin R U-500 (Conc) Kwikpen 40 unit SUBCUT QNOON 07/25/19 09/09/19 Humulin R U-500 (Conc) Kwikpen 40 unit SUBCUT QPM 07/25/19 09/09/19 Humulin R U-500 (Conc) Kwikpen 70 unit SUBCUT QAM 07/25/19 09/09/19 Lactobacillus acidophilus 1 cap DAILY 07/25/19 09/09/19 [Acidophilus] Narcan 1 spray INTRANASAL PRN PRN 07/25/19 09/09/19 Verzenio 150 mg PO BID 07/25/19 09/09/19 carbamazepine [Tegretol XR] 200 mg PO BID 07/25/19 09/09/19 cranberry 450 mg PO DAILY 07/25/19 09/09/19 ferrous sulfate 325 mg PO DAILY 07/25/19 09/09/19 guaifenesin [Mucinex] 600 mg PO BID PRN 07/25/19 09/09/19 omeprazole 40 mg PO DAILY 07/25/19 09/09/19 oxybutynin chloride 5 mg PO TID 07/25/19 09/09/19 Lactobacillus acidophilus 1,000 mmu cells PO BID #30 cap 08/01/19 09/09/19 Dificid 200 mg PO BID #15 tab 08/13/19 09/09/19 hydrocortisone 5 mg PO DAILY@1500 #0 tab 08/24/19 09/09/19 hydrocortisone 20 mg PO DAILY #0 tab 08/24/19 09/09/19 Previous Rx's Medication Instructions Recorded benzonatate 200 mg PO TID PRN #15 cap 05/10/18 hydrocodone-acetaminophen 2 tab PO Q4H PRN PRN #5 tab 03/28/19 fentanyl 1 patch TD Q72H #2 each 04/20/19 Lactobacillus acidophilus 1,000 mmu cells PO BID #30 cap 08/01/19 Dificid 200 mg PO BID #15 tab 08/13/19 hydrocortisone 5 mg PO DAILY@1500 #0 tab 08/24/19 hydrocortisone 20 mg PO DAILY #0 tab 08/24/19 Allergies Allergy/AdvReac Type Severity Reaction Status Date / Time bee venom protein (honey bee) Allergy Unknown Unverified 09/09/19 22:14 Latex, Natural Rubber AdvReac Intermediate Unverified 09/09/19 22:14 adhesive tape AdvReac Mild Unverified 09/09/19 22:14 General Stated Complaint: GenMedical CARMNE: 3 Review of Systems Narrative: Review of systems limited due to patient presentation and confusion. Constitutional: Negative for weight loss, obese body habitus, disheveled appearance, does have some feces noted to her bilateral lower extremities, appears uncomfortable, HEENT: Denies trauma, headaches, blurry vision, double vision,2 nasal discharge, sore throat, trouble swallowing. Chest: Denies chest pain, palpitations, irregular rhythm. Respiratory: Denies Shortness of breath, cough, hemoptysis. GI: Has a history of C. difficile colitis : Denies has a history of chronic UTIs patient is incontinent of urine upon arrival. Neuro: Denies headache or facial numbness, positive weakness and fatigue, is slightly confused upon initial exam.. Hematologic: Denies easy bruising, intolerance to heat or cold, hair loss. [facility] Medical History C. difficile diarrhea (Acute) Cancer related pain (Chronic) much improved with fentanyl patch Carpal tunnel syndrome (Acute) Chronic adrenal insufficiency (Acute) Chronic pain (Chronic) Chronic respiratory failure with hypoxia (Chronic) Chronic venous stasis dermatitis (Chronic) COPD (chronic obstructive pulmonary disease) (Chronic) On nocturnal oxygen - 2L prn Depression (Chronic) Diabetes mellitus (Chronic) Insulin dependent Diverticulosis (Acute) Dyslipidemia (Chronic) Goals of care, counseling/discussion (Acute) History of breast cancer (Chronic) metastatic, with lymphatic spread and bone mets Hyperlipidemia (Acute) Hypopituitarism (Chronic) Hypothyroidism (Chronic) Influenza B (Acute) Iron deficiency anemia (Acute) Metastatic breast cancer (Chronic) Obesity (Chronic) Obstructive sleep apnea (Chronic) per [facility] records Palliative care patient (Chronic) Pneumonia (Acute) POLST (Physician Orders for Life-Sustaining Treatment) (Acute) done 03/26/19; sent to [facility], original to her Restless leg syndrome (Acute) Spinal stenosis (Acute) Stage IV breast cancer in female (Chronic) Uncontrolled pain (Resolved) Surgical History H/O bilateral mastectomy (Acute) H/O colonoscopy with polypectomy (Acute) History of carpal tunnel release of both wrists (Acute) Port-A-Cath in place (Acute) Status post transsphenoidal pituitary resection (Acute) Family History Father , age 83 from complications of diabetes Prostate cancer Diabetes Mother , age 79 from complications of Crohn's disease and colitis Crohn's disease Colitis Daughter No problems noted. Daughter No problems noted. Brother No problems noted. Sister Diabetes Obesity Sister No problems noted. Sister No problems noted. Sister No problems noted. Social History (Updated 09/10/19 @ 06:31 by Vince Ta) Smoking/Tobacco Use Status: Former Tobacco Use Alcohol Intake: never Drug use: Never Substance use type: does not use Caregiver/Support person: Yes Household members: children Number of Children: 2 Communication Needs: Hard of Hearing and Corrective Lenses Education Level: middle school Do you need help understanding health information?: Always current occupation: on disability What is your relationship status?: How often do you talk on the phone with friends or family?: once per week How often do you get together with friends or relatives?: three or more times per week Panel score (0-1 are the most socially isolated patients): 1 What type of physical activity do you participate in: none, sedentary lifestyle, wheelchair-bound and additional Details: needs a new wheelchair, cannot walk far, just a few steps Special pedro pablo needs: No Do you feel safe at home: Yes Do you feel safe in your relationship?: Yes Additional Social history: , with 2 children. 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 She is not currently working and is on disability. Has a history of tobacco, quit in 1992. Reports rare use of alcohol only. Lives with daughter Bhargavi and Oliver, and her other daughter is close. Uses a walker to ambulate. Hard to do recently, depending more on WC. In a lot of pain. Recent scans show progression of breast cancer. Exam Narrative Exam Narrative: Constitutional: Alert and oriented x2. Appears stated age. Obese body habitus. Is disheveled, is febrile upon initial presentation, confused, weak. Head: Normocephalic, no trauma. Eyes: Pupils PERRLA, Red reflex noted, EOM's intact. Eyelids symmetrical without lesions, discharge, or swelling. ENT: Bilateral TM's WNL, External ear normal to inspection, no mastoid TTP, swelling, or erythema, Nasal turbinates WNL, no nasal discharge. Posterior pharynx WNL, no exudate. Chest: Tachycardic, RRR, Normal S1, S2, distal pulses intact. Resp: Lungs diminished to auscultation bilaterally, no wheezes, rales, or rhonchi. Abdomen: Obese girth, nondistended, soft nontender to palpation. Patient denies diarrhea but does have a history of C. difficile colitis and does have feces noted on her bilateral lower legs. : Patient is incontinent of urine, strong foul smell noted, Musculoskeletal: 5/5 strength to all four extremities. Appears to have chronic peripheral vascular disease noted to her bilateral lower extremities Skin: Capillary refill less than 3 sec. Neurologic: Cranial nerves II-XII intact. Alert and oriented x2, does have confused verbal responses with questioning, and slow responses, responses are somewhat garbled and incomprehensible, DTR's intact. No nystagmus no diplopia. Hematologic/Lymphatic: no palpable lymphadenopathy. Course Vital Signs Vital signs: Vital Signs Temperature 38 C H 09/09/19 21:54 Pulse 119 H 09/09/19 21:54 Respiratory Rate 16 09/09/19 21:54 Blood Pressure 109/85 09/09/19 21:54 Pulse Oximetry 94 L 09/09/19 21:54 Temperature 38 C H 09/09/19 21:54 Temperature Source Skin 09/09/19 21:54 Pulse 118 H 09/09/19 22:11 Pulse 115 H 09/09/19 22:12 Respiratory Rate 25 H 09/09/19 22:12 Respiratory Effort Non-Labored 09/09/19 22:13 Blood Pressure 109/85 09/09/19 22:11 Blood Pressure Mean 90 09/09/19 22:11 Blood Pressure Position Supine 09/09/19 21:54 Pulse Oximetry 94 L 09/09/19 22:12 Oxygen Delivery Method Nasal Cannula 09/09/19 21:54 Oxygen Flow Rate 4 09/09/19 21:54 Comment 09/09/19 21:54 Lab/Test Results Lab/Test Results: 09/09/19 22:15 Blood Blood Culture - Pending 09/09/19 22:15 Blood Blood Culture - Pending
[2019-09-09 22:58] LABS: Abs Immature Grans 0.03 k/cumm (0.0-0.09); Absolute Basophil Count 0.01 k/cumm (0.0-0.2); Absolute Eosinophil Count 0.06 k/cumm (0.0-0.7); Absolute Lymphocyte Count 1.43 k/cumm (1.2-3.4); Absolute Monocyte Count 0.32 k/cumm (0.11-0.7); Absolute Neutrophil Count 3.84 k/cumm (1.2-6.7); Basophils % 0.2; Eosinophils % 1.1; HCT 31.5 % (36.0-46.0); HGB 9.9 g/dL (12.0-15.5); Immature Grans % 0.5 %; Lymphocytes % 25.1; Mean Corp. HGB Concentration 31.4 g/dL (32.0-36.0); Mean Corpuscular Hemoglobin 29.6 pg (27.0-33.0); Mean Corpuscular Volume 94.3 fL (80-95); Mean Platelet Volume 8.9 fL (8.0-11.0); Monocytes % 5.6; Neutrophils % 67.5; Platelet Count 253 x1000/uL (130-400); RBC 3.34 m/cumm (4.00-5.20); RBC Distribution Width 15.8 % (11.7-14.6); White Blood Cell Count 5.69 k/cumm (4.4-10.8)
[2019-09-09 23:15] LABS: Bilirubin Negative (Negative); Blood Trace-intact (Negative); Clarity Cloudy (Clear); Glucose Negative (Negative); Ketones Negative (Negative); Leukocyte Esterase Small (Negative); Nitrite Positive (Negative); Specific Gravity 1.015 (1.005-1.025); Urobilinogen 0.2 EU/dL (Up TO 0.2)
[2019-09-09 23:15] LABS: ALT 29 U/L (14-59); AST 58 U/L (15-37); Albumin 3.1 g/dL (3.4-5.0); Alkaline Phosphatase 239 U/L (46-116); Anion Gap 7.6 mmol/L (3-11); BUN 17 mg/dL (7-18); Bilirubin, Total 0.4 mg/dL (0.2-1.0); CO2 29.4 mmol/L (21.0-32.0); CREATININE 1.32 mg/dL (0.55-1.02); Calcium 8.9 mg/dL (8.5-10.1); Chloride 99 mmol/L (98-107); Estimated GFR 41.05 (mL/min/1.73m2); Glucose 231 mg/dL (74-106); Magnesium 1.9 mg/dL (1.8-2.4); Potassium 4.6 mmol/L (3.5-5.1); Sodium 136 mmol/L (136-145); Total Protein 8.4 g/dL (6.4-8.2); Troponin I < 0.05 ng/mL (<0.06)
--- NOTE | 2019-09-09 23:28 | DI.CT_ITS ---
EXAM: CT HEAD WO CLINICAL HISTORY: Altered mental status, fever. TECHNIQUE: Imaging Protocol: Axial computed tomography images with coronal and sagittal reformatted images were created and reviewed COMPARISON: CT CERVICAL SPINE WITHOUT CONTRA from 08/13/2017 FINDINGS: Ventricles and Extra axial spaces: Normal in size and morphology for the patient's age. Hemorrhage: None. Cerebral parenchyma: Atrophy. White matter changes consistent with small vessel disease. Midline shift: None. Brainstem/Cerebellum: Normal. Calvarium: Normal. Visualized Paranasal sinuses/Mastoids: Previous sinus surgery. There is some mucosal thickening main ly in the ethmoid region.. Mastoid air cells are clear. IMPRESSION: No acute abnormality. RADIATION DOSE DELIVERED: 871.12mGy.cm Total DLP 871.12mGy.cm Total DLP DATA REPOSITORY: All CT scans at this facility are submitted to the National Radiology Data Registry (NRDR) Dose Index Registry (DIR) with the [employer] ([employer]). RADIATION OPTIMIZATION: All CT scans at this facility use at least one of these dose optimization te chniques: automated exposure control; mA and/or kV adjustment per patient size (includes targeted exa ms where dose is matched to clinical indication); or iterative reconstruction.
[2019-09-09 23:29] LABS: Bacteria Moderate HPF (Negative); C & S Indicated? Yes; Casts Negative LPF (Negative); Crystals Negative HPF (Negative); Epithelial Cells Negative HPF (Negative); Mucus Moderate (Negative); Other Cells Few Renal (Negative); RBC Negative HPF (0-2); WBC >50 HPF (0-5)
[2019-09-09] MEDS: Normal Saline 250 ML 500 ML IV (23:35)
--- NOTE | 2019-09-09 23:42 | DI.RAD_ITS ---
EXAM: XR CHEST 2V PA LATERAL CLINICAL HISTORY: Weakness AMS, R/O pneumonia TECHNIQUE: 2D digital imaging was performed. COMPARISON: CR XR PORTABLE CHEST AP from 08/17/2019 FINDINGS: The exam was performed with the patient in a stretcher. Abdominal soft tissues overlie the lung base s on the AP view. A port is again noted over the right upper chest. The heart is enlarged, unchange d. There is question of some increased densities at the lung bases which could represent dependent a telectasis versus pneumonia. IMPRESSION: Left lower lobe infiltrate versus atelectasis. Limited exam.
--- NOTE | 2019-09-09 23:59 | DI.VRAD_ITS ---
PROCEDURE INFORMATION: Exam: XR Chest, 2 Views Exam date and time: 09/09/2019 11:39 PM Age: 59 years old Clinical indication: Fever and other: AMS TECHNIQUE: Imaging protocol: XR of the chest Views: 2 views. COMPARISON: CR XR PORTABLE CHEST AP 08/17/2019 9:40 AM FINDINGS: Tubes, catheters and devices: Central infusion device unchanged in position. Lungs: Retrocardiac left lower lobe infiltrate. Pleural space: Unremarkable. No pleural effusion. No pneumothorax. Heart/Mediastinum: Unremarkable. No cardiomegaly. Bones/joints: Unremarkable. Soft tissues: Surgical clips inferolaterally about right chest wall as well as overlying lower left hemithorax and soft tissues about inferolateral left chest wall. IMPRESSION: Left lower lobe pneumonia. Dictated and Authenticated by: Angel Gonzalez MD. Ordering:LOUIS Aquino MD
[2019-09-10] VITALS (12 sets, daily range): BP systolic 92–130; BP diastolic 54–70; PULSE 89–111; RESP 18–29; TEMP 36.2–38.4; O2SAT 95–98
--- NOTE | 2019-09-10 00:08 | DI.VRAD_ITS ---
PROCEDURE INFORMATION: Exam: CT Head Without Contrast Exam date and time: 09/09/2019 11:28 PM Age: 59 years old Clinical indication: Alteration of consciousness and fever; Other: Not specified TECHNIQUE: Imaging protocol: Computed tomography of the head without contrast. Radiation optimization: All CT scans at this facility use at least one of these dose optimization techniques: automated exposure control; mA and/or kV adjustment per patient size (includes targeted exams where dose is matched to clinical indication); or iterative reconstruction. COMPARISON: CT HEAD WITH/WITHOUT CONTRAST 04/03/2017 12:34 PM FINDINGS: Brain: There is moderate diffuse cerebral atrophy present, consistent with this patient's age. No hemorrhage. Unremarkable white matter. No mass effect. Ventricles: Normal. No ventriculomegaly. Bones/joints: Unremarkable. No acute fracture. Sinuses: Several opacified ethmoid air cells. Small cyst or polyp in right maxillary sinus. No fluid levels. Mastoid air cells: Visualized mastoid air cells are well aerated. Soft tissues: Unremarkable. IMPRESSION: 1. No acute intracranial abnormality. 2. Sinus disease. Dictated and Authenticated by: Angel Gonzalez MD. Ordering:LOUIS Aquino MD
[2019-09-10] MEDS: IMIPENEM/CILASTATIN 500 MG in Normal Saline 100 ML 200 MG IVPB ×4 (00:17→23:18)
[2019-09-10] MEDS: Hydrocortisone SOD SUC. 100 MG VIAL IVP ×2 (00:30→09:17)
[2019-09-10] MEDS: Normal Saline 500 ML IV (00:51)
[2019-09-10 01:54] LABS: Troponin I < 0.05 ng/mL (<0.06)
[2019-09-10] MEDS: HYDROcodone 5/Acetaminophen 325 TAB PO ×2 (02:22→20:50)
[2019-09-10] MEDS: Normal Saline 1,000 ML 250 ML IV (03:02)
[2019-09-10] MEDS: Levothyroxine 150 MCG TAB PO (05:55)
--- NOTE | 2019-09-10 06:19 | W.PM.HP.N ---
Date of service: 09/10/19 Time of Service: 05:19 Assessment and Plan Assessment and plan (1) UTI (urinary tract infection): Status: Acute Assessment and plan: Patient's presentation is consistent with a recurrent urinary tract infection with resultant systemic inflammatory response and toxic metabolic encephalopathy. Mental status has cleared this morning. Given her history on recent admission, I agree with the use of independent/cilastatin with cultures pending. Her blood pressures have been soft, which is not uncommon for her. I gave additional liter this morning, but I will stop at this point with the crackles audible bilaterally on her lung exam (she does have a recent echocardiogram showing possible diastolic dysfunction but normal ejection fraction). Given the recurrent severe urinary infections, have ordered a renal ultrasound for today as well as urology consult. Prophylactic antibiotics may be considered, though their use must be balanced with the risk of recurrent C. difficile colitis. (2) Left lower lobe pneumonia: Status: Acute Assessment and plan: Patient has chest x-ray findings as well as some mild symptoms consistent with pneumonia, though the symptoms seem to started this morning. I do not think this is what precipitated her presentation. She may have had a mild aspiration while she was confused. She denies any dysphagia or aspiration issues chronically. Her current antibiotics will cover pneumonia as well. (3) C. difficile colitis: Status: Acute Assessment and plan: Symptoms of difficile have resolved. Continue probiotics. (4) Cancer related pain: Status: Chronic Assessment and plan: Patient is on chronic opioids for cancer related pain. She has been followed by palliative care, and have asked them to consult. Her pain appears adequately controlled at this point. She is not appear to be intoxicated or overdosed. Continue her outpatient regimen. (5) Stage IV breast cancer in female: Status: Chronic Assessment and plan: Patient is on Verzenio chronically, will continue. (6) Diabetes mellitus: Status: Chronic Assessment and plan: Patient is on a regular insulin regimen with meals, as well as Trulicity. We will continue these and follow blood sugars as inpatient. Her last A1c was 8.5 at the end of June 2019. Given her metastatic disease I think less than 9 is a reasonable level of control. Qualifiers: Diabetes mellitus type: type 2 Diabetes mellitus group home insulin use: with keno terminal operator use Diabetes mellitus complication status: with kidney complications Diabetes mellitus complication detail: with chronic kidney disease Chronic kidney disease stage: stage 3 (moderate) Qualified Code(s): E11.22 - Type 2 diabetes mellitus with diabetic chronic kidney disease; N18.3 - Chronic kidney disease, stage 3 (moderate); Z79.4 - custodial (current) use of insulin (7) COPD (chronic obstructive pulmonary disease): Status: Chronic Assessment and plan: No active wheezing. Continue do troponin. (8) Hypothyroidism: Status: Chronic Assessment and plan: Patient has had low TSH levels in the past 2 months. She may benefit from decreasing her levothyroxine dose, but I will defer this to her regular treating team. (9) History of pulmonary embolism: Status: Chronic Assessment and plan: Continue apixaban. Of note, the patient's carbamazepine will decrease levels of apixaban. The indication for carbamazepine is not totally clear to me on reviewing the record. Will defer to primary treating team. (10) Iron deficiency anemia: Status: Acute Assessment and plan: Anemia improved from last several visits. Continue iron supplementation. (11) Acute kidney injury superimposed on chronic kidney disease: Status: Resolved Assessment and plan: Mild increase in creatinine from baseline closer to 1, though she has frequently had similar episodes. Will monitor. (12) Chronic respiratory failure with hypoxia: Status: Chronic Assessment and plan: Patient has a diagnosis of COPD, as well as untreated sleep apnea, and respiratory failure is also likely complicated by her body mass index. She is at risk for hypercarbia causing confusion, but does not appear that this is what happened this case. (13) Adrenal insufficiency: Status: Chronic Assessment and plan: Given acute infection with systemic inflammatory response, I have treated Ms. Maynard with stress dose steroids IV. (14) Discharge planning issues: Status: Acute Assessment and plan: The patient is currently stable on the medical floor. I did confirm she is DNR/DNI. Palliative care consult as above. History of Present Illness History of Present Illness Chief Complaint: Confusion Narrative: 59-year-old female with several recent admissions and complex medical history that includes metastatic breast cancer on chronic opioids, recent resistant urinary tract infection, recent C. difficile colitis, BMI of 49, and chronic respiratory failure with untreated sleep apnea who was brought to the emergency room by her daughter after she was found to be incoherent at home. According to the daughter, the patient became confused and weak at around 1600 the afternoon prior to admission. She had a similar presentation with previous urine tract infection. At the time of presentation the emergency room, the patient feeling tired. This morning, she states she felt well until last night after dinner when she got confused. She felt well during the day, but she did note she needed a little more oxygen up to 3 L during the day which she attributed to the humidity. He only uses oxygen at night and as needed. She does endorse a mild cough that is productive of some stringy sputum, but she just noticed this in the morning while here at the hospital. Morning, she states she feels much better in terms of the overall weakness and confusion. Admitted August 16 for urosepsis. At that point, she did not respond to ceftriaxone or the addition of ciprofloxacin. She did finally improve with imipenem. The culture grew out Citrobacter, which was sensitive in the lab to ciprofloxacin. She was admitted August 09 with C. difficile colitis. She denies any ongoing diarrhea. Prior to that, she was admitted July 24 with pneumonia. Patient denies any change in her medication or additional medication use that may have triggered her confusion. Review of Systems All systems reviewed & are unremarkable except as noted in HPI and below ENT Ears, Nose, Mouth, and Throat: Reports dry mouth Comments: No runny nose, sore throat, or other cold symptoms. Integumentary/Breasts Comments: Lower extremity skin changes are chronic. [facility] Medical History C. difficile diarrhea (Acute) Cancer related pain (Chronic) much improved with fentanyl patch Carpal tunnel syndrome (Acute) Chronic adrenal insufficiency (Acute) Chronic pain (Chronic) Chronic respiratory failure with hypoxia (Chronic) Chronic venous stasis dermatitis (Chronic) COPD (chronic obstructive pulmonary disease) (Chronic) On nocturnal oxygen - 2L prn Depression (Chronic) Diabetes mellitus (Chronic) Insulin dependent Diverticulosis (Acute) Dyslipidemia (Chronic) Goals of care, counseling/discussion (Acute) History of breast cancer (Chronic) metastatic, with lymphatic spread and bone mets Hyperlipidemia (Acute) Hypopituitarism (Chronic) Hypothyroidism (Chronic) Influenza B (Acute) Iron deficiency anemia (Acute) Metastatic breast cancer (Chronic) Obesity (Chronic) Obstructive sleep apnea (Chronic) per [facility] records Palliative care patient (Chronic) Pneumonia (Acute) POLST (Physician Orders for Life-Sustaining Treatment) (Acute) done 03/26/19; sent to [facility], [facility], [facility], original to her Restless leg syndrome (Acute) Spinal stenosis (Acute) Stage IV breast cancer in female (Chronic) Uncontrolled pain (Resolved) Surgical History H/O bilateral mastectomy (Acute) H/O colonoscopy with polypectomy (Acute) History of carpal tunnel release of both wrists (Acute) Port-A-Cath in place (Acute) Status post transsphenoidal pituitary resection (Acute) Family History Father , age 83 from complications of diabetes Prostate cancer Diabetes Mother , age 79 from complications of Crohn's disease and colitis Crohn's disease Colitis Daughter No problems noted. Daughter No problems noted. Brother No problems noted. Sister Diabetes Obesity Sister No problems noted. Sister No problems noted. Sister No problems noted. Social History (Updated 09/10/19 @ 06:31 by Vince Ta) Smoking/Tobacco Use Status: Former Tobacco Use Alcohol Intake: never Drug use: Never Substance use type: does not use Caregiver/Support person: Yes Household members: children Number of Children: 2 Communication Needs: Hard of Hearing and Corrective Lenses Education Level: middle school Do you need help understanding health information?: Always current occupation: on disability What is your relationship status?: How often do you talk on the phone with friends or family?: once per week How often do you get together with friends or relatives?: three or more times per week Panel score (0-1 are the most socially isolated patients): 1 What type of physical activity do you participate in: none, sedentary lifestyle, wheelchair-bound and additional Details: needs a new wheelchair, cannot walk far, just a few steps Special pedro pablo needs: No Do you feel safe at home: Yes Do you feel safe in your relationship?: Yes Additional Social history: , with 2 children. 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 She is not currently working and is on disability. Has a history of tobacco, quit in 1992. Reports rare use of alcohol only. Lives with daughter Bhargavi and Oliver, and her other daughter is close. Uses a walker to ambulate. Hard to do recently, depending more on WC. In a lot of pain. Recent scans show progression of breast cancer. Meds Home Medications and Allergies Home Medications Medication Instructions Recorded Confirmed Type Spiriva Respimat 1 puff INHALATION DAILY 04/03/17 09/09/19 History budesonide-formoterol [Symbicort] 2 puff INHALATION BID 04/03/17 09/09/19 History cyanocobalamin (vitamin B-12) 1,000 mcg PO DAILY 04/03/17 09/09/19 History [Vitamin B-12] folic acid 1 mg PO DAILY 04/03/17 09/09/19 History montelukast [Singulair] 10 mg PO DAILY 04/03/17 09/09/19 History ondansetron HCl [Zofran] 8 mg PO TID PRN 04/03/17 09/09/19 History pregabalin [Lyrica] 200 mg PO TID 04/03/17 09/09/19 History Trulicity 1.5 mg SUBCUT QWEEK 05/06/18 09/09/19 History levothyroxine 150 mcg PO DAILY 05/06/18 09/09/19 History benzonatate 200 mg PO TID PRN #15 cap 05/10/18 09/09/19 Rx duloxetine [Cymbalta] 60 mg PO HS 02/02/19 09/09/19 History loratadine 10 mg PO DAILY 02/02/19 09/09/19 History letrozole 2.5 mg PO DAILY 02/04/19 09/09/19 History hydrocodone-acetaminophen 2 tab PO Q4H PRN PRN #5 tab 03/28/19 09/09/19 Rx fentanyl 1 patch TD Q72H #2 each 04/20/19 09/09/19 Rx Eliquis 5 mg PO BID 07/25/19 09/09/19 History Glucagon (HCl) Emergency Kit 1 mg PRN PRN 07/25/19 09/09/19 History Humulin R U-500 (Conc) Kwikpen 40 unit SUBCUT QNOON 07/25/19 09/09/19 History Humulin R U-500 (Conc) Kwikpen 40 unit SUBCUT QPM 07/25/19 09/09/19 History Humulin R U-500 (Conc) Kwikpen 70 unit SUBCUT QAM 07/25/19 09/09/19 History Lactobacillus acidophilus 1 cap DAILY 07/25/19 09/09/19 History [Acidophilus] Narcan 1 spray INTRANASAL PRN PRN 07/25/19 09/09/19 History Verzenio 150 mg PO BID 07/25/19 09/09/19 History carbamazepine [Tegretol XR] 200 mg PO BID 07/25/19 09/09/19 History cranberry 450 mg PO DAILY 07/25/19 09/09/19 History ferrous sulfate 325 mg PO DAILY 07/25/19 09/09/19 History guaifenesin [Mucinex] 600 mg PO BID PRN 07/25/19 09/09/19 History omeprazole 40 mg PO DAILY 07/25/19 09/09/19 History oxybutynin chloride 5 mg PO TID 07/25/19 09/09/19 History Lactobacillus acidophilus 1,000 mmu cells PO BID #30 cap 08/01/19 09/09/19 Rx Dificid 200 mg PO BID #15 tab 08/13/19 09/09/19 Rx hydrocortisone 5 mg PO DAILY@1500 #0 tab 08/24/19 09/09/19 Rx hydrocortisone 20 mg PO DAILY #0 tab 08/24/19 09/09/19 Rx Allergies Allergy/AdvReac Type Severity Reaction Status Date / Time bee venom protein (honey bee) Allergy Unknown Unverified 09/09/19 22:14 Latex, Natural Rubber AdvReac Intermediate Unverified 09/09/19 22:14 adhesive tape AdvReac Mild Unverified 09/09/19 22:14 Exam Narrative Exam Narrative: General: Alert and oriented x3, lying in bed comfortably, but mildly dyspneic when speaking in full sentences. Pleasant, coherent and appropriate when responding to questions. HEENT: Normocephalic and atraumatic. Conjunctive are clear with no icterus. Pupils 2 to 3 mm bilaterally, reactive to light. No rhinorrhea. Edentulous, no mouth or pharyngeal lesions. Mucous membranes are somewhat tacky. Neck is supple with no masses, thyromegaly, or lymphadenopathy palpable. No elevation of jugular venous distention, though exam is limited. Lungs: Mildly dyspneic patient as above. Lungs are clear to auscultation bilaterally with exception of slight crackles at the bases bilaterally. No wheezes. Cardiovascular: Regular rate and rhythm, no murmurs audible. Abdomen: Active bowel sounds. Soft, nontender and nondistended. No lesions on or under pannus. Extremities: No cyanosis, clubbing, or edema. Legs are nontender to palpation. MSK: No joint redness or swelling. Skin: Hyperpigmented patches on shins bilaterally, no open wounds. Port-A-Cath in right chest is clean and without any surrounding erythema. Neurologic: Cranial nerves II through XII grossly intact. Moving 4 extremities with normal coordination. No tremor. Normal speech. Psychiatric: Normal mood and affect. Normal thought process. Results Chest x-ray: Left cardiac infiltrate consistent with left lower lobe pneumonia CT head without contrast: No acute intracranial abnormality. Sinus disease and ethmoid sinuses and maxillary sinus polyp versus cyst. EKG: Sinus tachycardia with a rate of 115. Normal axis. Nonspecific mild ST depression laterally unchanged from August 16 Labs Result diagrams: 09/09/19 22:46 09/09/19 22:46 Labs: Laboratory Results - last 24 hr 09/09/19 09/09/19 09/09/19 22:46 22:46 22:46 WBC 5.69 RBC 3.34 L Hgb 9.9 L Hct 31.5 L MCV 94.3 MCH 29.6 MCHC 31.4 L RDW 15.8 H Plt Count 253 MPV 8.9 Immature Gran % 0.5 Neutrophils % 67.5 Lymphocytes % 25.1 Monocytes % 5.6 Eosinophils % 1.1 Basophils % 0.2 Absolute Neutrophils 3.84 Absolute Lymphocytes 1.43 Absolute Monocytes 0.32 Absolute Eosinophils 0.06 Absolute Basophils 0.01 Sodium 136 Potassium 4.6 Chloride 99 Carbon Dioxide 29.4 Anion Gap 7.6 BUN 17 Creatinine 1.32 H Estimated GFR/1.73 m2 41.05 Glucose 231 H Lactate 2.0 H Calcium 8.9 Magnesium 1.9 Total Bilirubin 0.4 AST 58 H ALT 29 Alkaline Phosphatase 239 H Troponin I < 0.05 Total Protein 8.4 H Albumin 3.1 L Urine Color Urine Clarity Urine pH Ur Specific Harper Urine Protein Urine Ketones Urine Blood Urine Nitrite Urine Bilirubin Urine Urobilinogen Ur Leukocyte Esterase Urine RBC Urine WBC Ur Epithelial Cells Urine Crystals Urine Bacteria Urine Casts Urine Mucus Urine Other Ur Culture Indicated? Urine Glucose 09/09/19 09/10/19 23:10 01:35 WBC RBC Hgb Hct MCV MCH MCHC RDW Plt Count MPV Immature Gran % Neutrophils % Lymphocytes % Monocytes % Eosinophils % Basophils % Absolute Neutrophils Absolute Lymphocytes Absolute Monocytes Absolute Eosinophils Absolute Basophils Sodium Potassium Chloride Carbon Dioxide Anion Gap BUN Creatinine Estimated GFR/1.73 m2 Glucose Lactate Calcium Magnesium Total Bilirubin AST ALT Alkaline Phosphatase Troponin I < 0.05 Total Protein Albumin Urine Color Yellow Urine Clarity Cloudy Urine pH 6.0 Ur Specific Harper 1.015 Urine Protein 30 H Urine Ketones Negative Urine Blood Trace-intact H Urine Nitrite Positive H Urine Bilirubin Negative Urine Urobilinogen 0.2 Ur Leukocyte Esterase Small H Urine RBC Negative Urine WBC >50 H Ur Epithelial Cells Negative Urine Crystals Negative Urine Bacteria Moderate Urine Casts Negative Urine Mucus Moderate Urine Other Few renal Ur Culture Indicated? Yes Urine Glucose Negative Last Vital Signs Temp 36.9 C 09/10/19 05:12 Pulse 106 H 09/10/19 05:12 Resp 18 09/10/19 05:12 BP 92/60 L 09/10/19 05:12 Pulse Ox 95 09/10/19 05:12 COVID-19 Screening Have you,or household,traveled outside [place] in last 14 days?: No Had IN PERSON contact w/suspected or confirmed C-19 person: No
--- NOTE | 2019-09-10 06:55 | UCONE_ITS ---
Date of service: 09/10/19 Time of Service: 12:30 Assessment and Plan Assessment and plan (1) UTI (urinary tract infection): Status: Acute Assessment and plan: With different organisms being present over the years, it is unlikely that we are dealing with any type of struvite stone. In fact, her most recent CT scan from a month ago is reassuring for the absence of hydronephrosis or stone. In the short-term, our recommendation will be antibiotics based on the culture and sensitivity of her admission urine sample. In the longer term, our general recommendations for postmenopausal women with recurrent UTIs include optimizing their urinary incontinence, optimizing their bowel function, using vaginal hormone replacement and making sure they are emptying the bladder appropriately. With her history of stage IV breast cancer, I certainly would not start her on hormone replacement. With her history of diabetes, her risk of voiding dysfunction/incomplete bladder emptying is increased. She likely will need a urodynamic study to evaluate her incontinence. Unfortunately, with her size and mobility issues, we would not be able to accommodate her on the equipment in our office. She will likely need to reschedule her previously canceled appointment with the urology service down at [facility]. Once her initial evaluation and testing has been completed, I would be more than happy to continue her care up in my office. History of Present Illness History of Present Illness Chief Complaint: Recurrent urinary tract infections Narrative: This is a 59-year-old morbidly obese woman who has a history of recurring urinary tract infections. She cannot really recall when her first infection was diagnosed. It appears that she has had multiple organisms over the years rather than the same organism over and over. She tells me she is not able to tell when she develops infections. She tends to have mental status changes prompting emergency room visits, here and samples and diagnosis of UTI. She did have a scheduled appointment with the urology service at [facility] this past spring. The appointment had to be canceled due to the COVID pandemic. She describes urinary incontinence without sensory awareness. She believes the incontinence started about 15 years ago and has gotten progressively worse. She has no history of constipation, but does have intractable diarrhea and fecal incontinence. She has a history of metastatic breast cancer. She has never had any type of urologic surgery. She has not had a hysterectomy. She has had 2 previous vaginal deliveries. Review of Systems Constitutional Constitutional: Denies chills and Denies fever(s) Cardiovascular Cardiovascular: Denies chest pain and Denies irregular heart rhythm Gastrointestinal Gastrointestinal: Reports fecal incontinence, Reports diarrhea and Reports loose stools Musculoskeletal Musculoskeletal: Reports abnormal gait and Reports back pain Neurologic Neurologic: Reports abnormal gait [facility] Medical History C. difficile diarrhea (Acute) Cancer related pain (Chronic) much improved with fentanyl patch Carpal tunnel syndrome (Acute) Chronic adrenal insufficiency (Acute) Chronic pain (Chronic) Chronic respiratory failure with hypoxia (Chronic) Chronic venous stasis dermatitis (Chronic) COPD (chronic obstructive pulmonary disease) (Chronic) On nocturnal oxygen - 2L prn Depression (Chronic) Diabetes mellitus (Chronic) Insulin dependent Diverticulosis (Acute) Dyslipidemia (Chronic) Goals of care, counseling/discussion (Acute) History of breast cancer (Chronic) metastatic, with lymphatic spread and bone mets Hyperlipidemia (Acute) Hypopituitarism (Chronic) Hypothyroidism (Chronic) Influenza B (Acute) Iron deficiency anemia (Acute) Metastatic breast cancer (Chronic) Obesity (Chronic) Obstructive sleep apnea (Chronic) per [facility] records Palliative care patient (Chronic) Pneumonia (Acute) POLST (Physician Orders for Life-Sustaining Treatment) (Acute) done 03/26/19; sent to [facility], [facility], [facility], original to her Restless leg syndrome (Acute) Spinal stenosis (Acute) Stage IV breast cancer in female (Chronic) Uncontrolled pain (Resolved) Surgical History H/O bilateral mastectomy (Acute) H/O colonoscopy with polypectomy (Acute) History of carpal tunnel release of both wrists (Acute) Port-A-Cath in place (Acute) Status post transsphenoidal pituitary resection (Acute) Family History Father , age 83 from complications of diabetes Prostate cancer Diabetes Mother , age 79 from complications of Crohn's disease and colitis Crohn's disease Colitis Daughter No problems noted. Daughter No problems noted. Brother No problems noted. Sister Diabetes Obesity Sister No problems noted. Sister No problems noted. Sister No problems noted. Social History (Updated 09/10/19 @ 06:31 by Vince Ta) Smoking/Tobacco Use Status: Former Tobacco Use Alcohol Intake: never Drug use: Never Substance use type: does not use Caregiver/Support person: Yes Household members: children Number of Children: 2 Communication Needs: Hard of Hearing and Corrective Lenses Education Level: middle school Do you need help understanding health information?: Always current occupation: on disability What is your relationship status?: How often do you talk on the phone with friends or family?: once per week How often do you get together with friends or relatives?: three or more times per week Panel score (0-1 are the most socially isolated patients): 1 What type of physical activity do you participate in: none, sedentary lifestyle, wheelchair-bound and additional Details: needs a new wheelchair, cannot walk far, just a few steps Special pedro pablo needs: No Do you feel safe at home: Yes Do you feel safe in your relationship?: Yes Additional Social history: , with 2 children. 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 She is not currently working and is on disability. Has a history of tobacco, quit in 1992. Reports rare use of alcohol only. Lives with daughter Bhargavi and Oliver, and her other daughter is close. Uses a walker to ambulate. Hard to do recently, depending more on WC. In a lot of pain. Recent scans show progression of breast cancer. Exam Narrative Exam Narrative: She is morbidly obese. She does not appear septic or toxic. Her vital signs are documented elsewhere Her abdomen is nontender with no mass palpable She is awake and alert Her urine culture is still pending I reviewed her records from [facility]. It looks as if she receives most of her medical care at that facility (heme-onc, endocrine, wound care, GI, neurosurgery). She did have an appointment with the urology service in June of this year (for evaluation of her incontinence and recurrent UTIs). That appointment had to be canceled due to the COVID-19 pandemic. I reviewed her previous positive urine cultures. She has had multiple organisms over the years including E. coli, Citrobacter and yeast. She does not have the same organism over and over. Results Last Vital Signs Temp 36.9 C 09/10/19 05:12 Pulse 106 H 09/10/19 05:12 Resp 18 09/10/19 05:12 BP 92/60 L 09/10/19 05:12 Pulse Ox 95 09/10/19 05:12 Labs Result diagrams: 09/10/19 06:35 09/10/19 06:35 Labs: Laboratory Results - last 24 hr 09/09/19 09/09/19 09/09/19 22:46 22:46 22:46 WBC 5.69 RBC 3.34 L Hgb 9.9 L Hct 31.5 L MCV 94.3 MCH 29.6 MCHC 31.4 L RDW 15.8 H Plt Count 253 MPV 8.9 Immature Gran % 0.5 Neutrophils % 67.5 Lymphocytes % 25.1 Monocytes % 5.6 Eosinophils % 1.1 Basophils % 0.2 Absolute Neutrophils 3.84 Absolute Lymphocytes 1.43 Absolute Monocytes 0.32 Absolute Eosinophils 0.06 Absolute Basophils 0.01 Sodium 136 Potassium 4.6 Chloride 99 Carbon Dioxide 29.4 Anion Gap 7.6 BUN 17 Creatinine 1.32 H Estimated GFR/1.73 m2 41.05 Glucose 231 H Lactate 2.0 H Calcium 8.9 Magnesium 1.9 Total Bilirubin 0.4 AST 58 H ALT 29 Alkaline Phosphatase 239 H Troponin I < 0.05 Total Protein 8.4 H Albumin 3.1 L Urine Color Urine Clarity Urine pH Ur Specific [place] Urine Protein Urine Ketones Urine Blood Urine Nitrite Urine Bilirubin Urine Urobilinogen Ur Leukocyte Esterase Urine RBC Urine WBC Ur Epithelial Cells Urine Crystals Urine Bacteria Urine Casts Urine Mucus Urine Other Ur Culture Indicated? Urine Glucose 09/09/19 09/10/19 23:10 01:35 WBC RBC Hgb Hct MCV MCH MCHC RDW Plt Count MPV Immature Gran % Neutrophils % Lymphocytes % Monocytes % Eosinophils % Basophils % Absolute Neutrophils Absolute Lymphocytes Absolute Monocytes Absolute Eosinophils Absolute Basophils Sodium Potassium Chloride Carbon Dioxide Anion Gap BUN Creatinine Estimated GFR/1.73 m2 Glucose Lactate Calcium Magnesium Total Bilirubin AST ALT Alkaline Phosphatase Troponin I < 0.05 Total Protein Albumin Urine Color Yellow Urine Clarity Cloudy Urine pH 6.0 Ur Specific [place] 1.015 Urine Protein 30 H Urine Ketones Negative Urine Blood Trace-intact H Urine Nitrite Positive H Urine Bilirubin Negative Urine Urobilinogen 0.2 Ur Leukocyte Esterase Small H Urine RBC Negative Urine WBC >50 H Ur Epithelial Cells Negative Urine Crystals Negative Urine Bacteria Moderate Urine Casts Negative Urine Mucus Moderate Urine Other Few renal Ur Culture Indicated? Yes Urine Glucose Negative
[2019-09-10 07:06] LABS: Abs Immature Grans 0.01 k/cumm (0.0-0.09); Absolute Eosinophil Count 0.01 k/cumm (0.0-0.7); Absolute Lymphocyte Count 0.84 k/cumm (1.2-3.4); Absolute Monocyte Count 0.36 k/cumm (0.11-0.7); Absolute Neutrophil Count 4.93 k/cumm (1.2-6.7); Eosinophils % 0.2; HCT 27.9 % (36.0-46.0); HGB 8.6 g/dL (12.0-15.5); Immature Grans % 0.2 %; Lymphocytes % 13.7; Mean Corp. HGB Concentration 30.8 g/dL (32.0-36.0); Mean Corpuscular Hemoglobin 29.2 pg (27.0-33.0); Mean Corpuscular Volume 94.6 fL (80-95); Mean Platelet Volume 9.2 fL (8.0-11.0); Monocytes % 5.9; Platelet Count 228 x1000/uL (130-400); RBC 2.95 m/cumm (4.00-5.20); White Blood Cell Count 6.15 k/cumm (4.4-10.8)
[2019-09-10 07:13] LABS: Anion Gap 9.3 mmol/L (3-11); BUN 16 mg/dL (7-18); CO2 25.7 mmol/L (21.0-32.0); CREATININE 1.32 mg/dL (0.55-1.02); Calcium 8.2 mg/dL (8.5-10.1); Chloride 101 mmol/L (98-107); Estimated GFR 41.05 (mL/min/1.73m2); Glucose 327 mg/dL (74-106); Potassium 4.1 mmol/L (3.5-5.1); Sodium 136 mmol/L (136-145)
[2019-09-10] MEDS: Pregabalin 100 MG CAP 200 MG PO ×3 (09:08→19:49)
[2019-09-10] MEDS: Letrozole 2.5 MG TAB PO (09:08)
[2019-09-10] MEDS: Omeprazole 20 MG CAPCR 40 MG PO (09:08)
[2019-09-10] MEDS: Montelukast 10 MG TAB PO (09:08)
[2019-09-10] MEDS: Apixaban 5 MG TAB PO ×2 (09:09→19:50)
[2019-09-10] MEDS: Loratidine 10 MG TAB PO (09:09)
[2019-09-10] MEDS: Folic Acid 1 MG TAB PO (09:09)
[2019-09-10] MEDS: carBAMazepine 200 MG TAB PO ×2 (09:09→19:50)
[2019-09-10] MEDS: Cyanocobalamin 500 MCG TAB 1000 MCG PO (09:09)
[2019-09-10] MEDS: Oxybutynin 5 MG TAB PO ×3 (09:09→19:50)
[2019-09-10] MEDS: Ferrous Sulfate 325 MG TAB PO (09:09)
--- NOTE | 2019-09-10 09:09 | DI.US_ITS ---
EXAM: US RENAL CLINICAL HISTORY: recurrent UTI. TECHNIQUE: Heard scale, color and spectral Doppler were used. COMPARISON: CT CT ABDOMEN PELVIS WO from 08/10/2019 FINDINGS: Exam is limited by patient body habitus. Renal size in cm: Right: 10.8 left: 11.5 Echogenicity: Normal Hydronephrosis: No Cyst or mass: No Nephrolithiasis: No Other findings: None Bladder:Not well evaluated due to under distension Prevoid vol:31 cc Postvoid vol:0 cc Ureteral jets not visualized IMPRESSION: Limited exam. No acute abnormality. DATA REPOSITORY:
[2019-09-10] MEDS: Lactobacillus Acidophilus CAP 1 CAP PO ×2 (09:10→19:50)
[2019-09-10] MEDS: Normal Saline Flush 10 ML SYR IVP ×2 (09:17→23:19)
[2019-09-10] MEDS: Budesonide/Formoterol 160/4.5 6 GM 60 PUFF INH IH ×2 (09:28→19:51)
[2019-09-10] MEDS: Tiotropium Bromide-Respimat 10 PUFF INH IH (09:28)
--- NOTE | 2019-09-10 10:07 | INITIAL_ITS ---
- If Service Date Differs Date of service: 09/10/19 Time of Service: 10:07 Care Management Initial Assess REASON FOR HOSPITALIZATION:: UTI PAST MEDICAL HISTORY/PAST SURGICAL HISTORY:: Medical History . C. difficile diarrhea (Acute). Cancer related pain (Chronic). much improved with fentanyl patch. Carpal tunnel syndrome (Acute). Chronic adrenal insufficiency (Acute). Chronic pain (Chronic). Chronic respiratory failure with hypoxia (Chronic). Chronic venous stasis dermatitis (Chronic). COPD (chronic obstructive pulmonary disease) (Chronic). On nocturnal oxygen - 2L prn. Depression (Chronic). Diabetes mellitus (Chronic). Insulin dependent. Diverticulosis (Acute). Dyslipidemia (Chronic). Goals of care, counseling/discussion (Acute). History of breast cancer (Chronic). metastatic, with lymphatic spread and bone mets. Hyperlipidemia (Acute). Hypopituitarism (Chronic). Hypothyroidism (Chronic). Influenza B (Acute). Iron deficiency anemia (Acute). Metastatic breast cancer (Chronic). Obesity (Chronic). Obstructive sleep apnea (Chronic). per [facility] records. Palliative care patient (Chronic). Pneumonia (Acute). POLST (Physician Orders for Life-Sustaining Treatment) (Acute). done 03/26/19; sent to [facility], [facility], [facility], [facility] to her. Restless leg syndrome (Acute). Spinal stenosis (Acute). Stage IV breast cancer in female (Chronic). Uncontrolled pain (Resolved). Surgical History . H/O bilateral mastectomy (Acute). H/O colonoscopy with polypectomy (Acute). History of carpal tunnel release of both wrists (Acute). Port-A-Cath in place (Acute). Status post transsphenoidal pituitary resection (Acute) PREVIOUS FUNCTIONAL STATUS/SOCIAL/FAMILY SUPPORTS:: Candace lives in a single family home with her daughter Kiki and her children, in [place]. She has two daughters who reside locally. She is currently disabled and receives [facility] highest needs. Kiki is her primary caregiver. Candace utilizes a walker for ambulation, and a wheeled walker for distance. She is dependent on her daughter for transportation to and from appointments. CURRENT FUNCTIONAL STATUS:: Candace was sitting up in a chair when CM met with her. She was pleasant and smiling and engaged readily with CM. Candace stated that she had been doing well until yesterday when her daughter Kiki found her to be cionfused and disoriented. Since this has happened in the past when Candace has developed a UTI, Kiki brought her to the ED. Candace stated that she is feeling much better today and had been unaware of what was happening until she got to [facility]. She is receiving IV antibiotics for the UTI and po vancomycin for c. difficile prevention. Candace shared pictures of her new puppy - an 8 week old puggle (pug/beagle mix) that joined their family about 10 days ago. Candace went on to discuss the many dogs she has or has had recently and some of their stories. ADVANCE DIRECTIVES:: On File at [facility]. Daughter Kiki is her HCA Has patient been provided with info about the portal/API?: Yes Did the patient sign up for the portal?: No CODE STATUS:: DNR/DNI INSURANCE COVERAGE / FINANCIAL ISSUES:: Medicare. Medicaid CURRENT HOME/COMMUNITY SERVICES/EQUIPMENT:: Candace has [facility], highest needs. She uses a walker for ambulation and has home health nursing through [facility] PRIMARY CARE PHYSICIAN:: Nurys Martinez POTENTIAL DISCHARGE NEEDS:: Follow up with PCP and discharge plan of care PATIENT/FAMILY EDUCATION NEEDS:: Discharge plan, limitations, follow up plan, Ask Me Three TRANSPORTATION:: via private vehicle with Kiki PLAN:: Candace will return home with a resumption of home health services through [facility] when medically cleared. She will follow up with her PCP and discharge plan of care. Candace will transport with Kiki via private vehicle. w [facility] continue to support Candace and her family and discharge planning needs Readmission - Within the Past 30 Days Yes or No: Y - Date of First Admission Date of 1st Admission: 08/17/19 - Date of this Admission Date of Admission: 09/10/19 This admission was: Through ED - Office Visit Since 1st Admission Have you seen your PCP in the office since discharge?: Yes - Speicalist Appointments Have you seen any other specialist since your 1st Admission?: No Specialist Seen: Candace will be following up with providers at [facility] after disch arge for a Urological procedure. - I. Interview patient and/or Family Difficulty reaching your doctor or getting an office appt?: No Have you had trouble purchasing/ or taking medication?: No Have you had trouble with getting meals at home?: No Did you feel ready for discharge when you left the last time: Yes Were services received that you thought were set up on disch: Yes Did you call your physician beore you came to the ED?: No How do you think you became sick enough to come back?: Candace has frequent, recurrent UTIs. She had a planned urological workup at [facility] scheduled for this spring but it was cancelled due to the covid epidemic. It will be rescheduled for after discharge. - If the patient had a VNA ordered Did the patient have a VNA order?: Yes Did you call the VNA before you came?: No - Assessment for Readmission Summary of readmission circumstances, based upon interviews: Candace is a very pleasant 59 year old woman who has had many admissions to [facility] in the past year, often for UTIs. She has metastatic breast cancer and a host of co-morbidities. Candace is incontinent of bowel and bladder and was going to have a urological workup when the Covid pandemic struck. This will be completed at [facility] after discharge in hopes of preventing future infections and hospitalizations and admissions.
[2019-09-10] MEDS: Vancomycin 125 MG CAP PO ×3 (12:07→23:19)
--- NOTE | 2019-09-10 12:57 | W.INDIABCONS ---
Date of service: 09/10/19 Time of Service: 12:57 Diabetes Inpatient Consult DESCRIPTION/ASSESSMENT: I met with Candace today. Familiar to me from previous admissions in last couple of weeks. Admitted with reoccurent UTI, anemia and mild PNA. PNH: stage 4 breast CA, DM, obesity. Following diabetic diet with excellent intake. Meeting 100% nutrient and fluid needs at this time. Endentulous however able to chew regular meal plan. A1C < 9 % on recent lab, reasonable control in view of multiple co morbidities. INTERVENTION: reviewed diabetic diet principles, no new recommendations at this time. Candace is cared for by her daughter. Diabetes reasonably well controlled. PLAN: Conitnue current meal plan, follow up with database report writer as outpatient if further diabetic education desired. Time Spent in Nutritional Counseling and Treatment: 15 min spent face to face
[2019-09-10 14:06] LABS: COVID-19 RT-PCR UVMMC Result Negative (Negative)
--- NOTE | 2019-09-10 14:33 | CHAPLAIN ---
Candace and I know each other from her frequent admissions. She said she spoke with Dr. Camargo today and she will be going to [facility] [place] to have some tests on her bladder to see if they can figure out why she keeps getting UTIs. She also has pneumonia, she said. Being readmitted is taking it's toll, Candace said, and she'd like to figure out what is causing the UTIs. Candace is aware that her daughter Kiki, who is her caregiver, can visit now, but Candace said Kiki wouldn't be in today. Candace remains pleasant despite all she is dealing with. She relies on Kiki for care and transportation.
--- NOTE | 2019-09-10 15:17 | PHA.REVIEW ---
Pharmacy Admission Review - Admission Clinical Review (Last Reviewed 09/10/19 @ 06:30 by Vince Ta) UTI (urinary tract infection) (Acute) Iron deficiency anemia (Acute) Weakness generalized (Acute) Acute confusion due to infection (Acute) Left lower lobe pneumonia (Acute) Discharge planning issues (Acute) C. difficile colitis (Acute) Urinary tract infection (Acute) bee venom protein (honey bee) Allergy (Unknown, Unverified 09/09/19 22:14) Latex, Natural Rubber Adverse Reaction (Intermediate, Unverified 09/09/19 22:14) adhesive tape Adverse Reaction (Mild, Unverified 09/09/19 22:14) Height 5 ft 8.9 in Weight 146.1 kg - Renal Dosing Renal Dosing: BUN 16 mg/dL (7-18) 09/10/19 06:35 Creatinine 1.32 mg/dL (0.55-1.02) H 09/10/19 06:35 Medications needing adjustments: Reviewed - Anticoagulation Anticoagulation: Hgb 8.6 g/dL (12.0-15.5) L 09/10/19 06:35 Hct 27.9 % (36.0-46.0) L 09/10/19 06:35 Plt Count 228 x1000/uL (130-400) 09/10/19 06:35 Creatinine 1.32 mg/dL (0.55-1.02) H 09/10/19 06:35 DVT Prohphylaxis: Reviewed Medications: Apixaban - Opiate Usage Evaluate Pain Scale/Pains Meds: Reviewed Scheduled Bowel Reg ordered if on Opiates?: No - Relevant Labs Sodium 136 mmol/L (136-145) 09/10/19 06:35 Potassium 4.1 mmol/L (3.5-5.1) 09/10/19 06:35 Chloride 101 mmol/L (98-107) 09/10/19 06:35 Magnesium 1.9 mg/dL (1.8-2.4) 09/09/19 22:46 Electrolytes, C-Reactive P, ESR: Reviewed - DM Control DM Control: Glucose 327 mg/dL (74-106) H 09/10/19 06:35 Finger Stick Blood Glucose 407 Finger Stick Blood Glucose 336 Insulin Dosing: Reviewed (U500 TID; aspart SS not ordered yet...) - Heart Failure/FL Heart Failure/FL: Troponin I < 0.05 ng/mL (<0.06) 09/10/19 01:35 EF%, MCKENNA's, B-Blockers, Diuretics: Reviewed - BP Control BP Control: Blood Pressure 110/70 Blood Pressure 92/60 If elevated: Reviewed - Qtc Review If Elevated: N/A - IV to PO Switch IV Medications: Reviewed - Home Meds Home Med List reviewed: Reviewed Relevent Home Meds Not ordered & why?: leteverardo, calli smith -- aware - Current meds Current Medication Order Review: Intervened (corrected a few order entries)
[2019-09-10] MEDS: Hydrocortisone SOD SUC. 100 MG VIAL 50 MG IVP ×2 (16:51→23:18)
[2019-09-10] MEDS: Insulin Aspart 300 UNITS/3 ML PEN SC ×2 (17:16→22:32)
--- NOTE | 2019-09-10 18:14 | PGE_ITS ---
Date of Service Date of service: 09/10/19 Time of Service: 18:16 Subjective Subjective Interval history since last seen: Candace states that she is feeling better. She did cough up some epstein sputum. Denies dizziness, chest pain, shortness of breath, nausea, abdominal pain, diarrhea. She feels better, but does not even remember yesterday. I discussed with her the fact that Dr Camargo is referring her to [facility]. I did add prophylactic PO vanco to her regimen because of Candace's frequent bouts of C.Diff. Palliative care consulted. Will also consult PT. Continue to wean stress dose steroids. Add insulin sliding scale and increase her U500. Objective Objective Clinical Data: Abnormal lab results 09/09/19 09/09/19 09/09/19 Range/Units 22:46 22:46 22:46 RBC 3.34 L (4.00-5.20) m/cumm Hgb 9.9 L (12.0-15.5) g/dL Hct 31.5 L (36.0-46.0) % MCHC 31.4 L (32.0-36.0) g/dL RDW 15.8 H (11.7-14.6) % Absolute Lymphocytes (1.2-3.4) k/cumm Creatinine 1.32 H (0.55-1.02) mg/dL Glucose 231 H (74-106) mg/dL Lactate 2.0 H (0.6-1.4) mmol/L Calcium (8.5-10.1) mg/dL AST 58 H (15-37) U/L Alkaline Phosphatase 239 H (46-116) U/L Total Protein 8.4 H (6.4-8.2) g/dL Albumin 3.1 L (3.4-5.0) g/dL Urine Protein (Negative) mg/dL Urine Blood (Negative) Urine Nitrite (Negative) Ur Leukocyte Esterase (Negative) Urine WBC (0-5) HPF 09/09/19 09/10/19 09/10/19 Range/Units 23:10 06:35 06:35 RBC 2.95 L (4.00-5.20) m/cumm Hgb 8.6 L (12.0-15.5) g/dL Hct 27.9 L (36.0-46.0) % MCHC 30.8 L (32.0-36.0) g/dL RDW 16.0 H (11.7-14.6) % Absolute Lymphocytes 0.84 L (1.2-3.4) k/cumm Creatinine 1.32 H (0.55-1.02) mg/dL Glucose 327 H (74-106) mg/dL Lactate (0.6-1.4) mmol/L Calcium 8.2 L (8.5-10.1) mg/dL AST (15-37) U/L Alkaline Phosphatase (46-116) U/L Total Protein (6.4-8.2) g/dL Albumin (3.4-5.0) g/dL Urine Protein 30 H (Negative) mg/dL Urine Blood Trace-intact H (Negative) Urine Nitrite Positive H (Negative) Ur Leukocyte Esterase Small H (Negative) Urine WBC >50 H (0-5) HPF Vital Signs Temperature 36.2 C L 09/10/19 07:45 Temperature Source Tympanic 09/10/19 07:45 Pulse 96 H 09/10/19 07:45 Pulse Rhythm Regular 09/10/19 10:32 Pulse 109 H 09/10/19 01:40 Respiratory Rate 20 09/10/19 07:45 Respiratory Effort Non-Labored 09/10/19 10:32 Respiratory Depth Normal 09/10/19 10:32 Respiratory Pattern Normal 09/10/19 10:32 Blood Pressure 110/70 09/10/19 07:45 Blood Pressure Mean 76 09/10/19 01:30 Blood Pressure Position Supine 09/09/19 21:54 Pulse Oximetry 98 09/10/19 09:25 Oxygen Delivery Method Nasal Cannula 09/10/19 09:25 Oxygen Flow Rate 2 09/10/19 09:25 Pain Level 0 09/10/19 07:45 Comment 09/10/19 02:15 Intake & Output 09/09/19 09/10/19 09/10/19 23:59 11:59 23:59 Intake Total 220 / 1220 1000 / 1220 Output Total 100 / 100 550 / 1050 500 / 1050 Balance -100 / -100 -330 / 170 500 / 170 Weight 150.593 kg 146.1 kg Intake: IV 100 / 1100 1000 / 1100 Oral 120 / 120 Output: Urine 100 / 100 550 / 1050 500 / 1050 Other: Urine Color Light Giselle Dark Giselle Dark Giselle Urine Appearance Clear Clear Clear Stool Size Large Stool Characteristics Soft Formed Brown Laboratory Results WBC 6.15 k/cumm (4.4-10.8) 09/10/19 06:35 RBC 2.95 m/cumm (4.00-5.20) L 09/10/19 06:35 Hgb 8.6 g/dL (12.0-15.5) L 09/10/19 06:35 Hct 27.9 % (36.0-46.0) L 09/10/19 06:35 MCV 94.6 fL (80-95) 09/10/19 06:35 MCH 29.2 pg (27.0-33.0) 09/10/19 06:35 MCHC 30.8 g/dL (32.0-36.0) L 09/10/19 06:35 RDW 16.0 % (11.7-14.6) H 09/10/19 06:35 Plt Count 228 x1000/uL (130-400) 09/10/19 06:35 MPV 9.2 fL (8.0-11.0) 09/10/19 06:35 Immature Gran % 0.2 % 09/10/19 06:35 Neutrophils % 80.0 09/10/19 06:35 Lymphocytes % 13.7 09/10/19 06:35 Monocytes % 5.9 09/10/19 06:35 Eosinophils % 0.2 09/10/19 06:35 Basophils % 0.0 09/10/19 06:35 Absolute Neutrophils 4.93 k/cumm (1.2-6.7) 09/10/19 06:35 Absolute Lymphocytes 0.84 k/cumm (1.2-3.4) L 09/10/19 06:35 Absolute Monocytes 0.36 k/cumm (0.11-0.7) 09/10/19 06:35 Absolute Eosinophils 0.01 k/cumm (0.0-0.7) 09/10/19 06:35 Absolute Basophils 0.00 k/cumm (0.0-0.2) 09/10/19 06:35 Sodium 136 mmol/L (136-145) 09/10/19 06:35 Potassium 4.1 mmol/L (3.5-5.1) 09/10/19 06:35 Chloride 101 mmol/L (98-107) 09/10/19 06:35 Carbon Dioxide 25.7 mmol/L (21.0-32.0) 09/10/19 06:35 Anion Gap 9.3 mmol/L (3-11) 09/10/19 06:35 BUN 16 mg/dL (7-18) 09/10/19 06:35 Creatinine 1.32 mg/dL (0.55-1.02) H 09/10/19 06:35 Estimated GFR/1.73 m2 41.05 (mL/min/1.73m2) 09/10/19 06:35 Glucose 327 mg/dL (74-106) H 09/10/19 06:35 Lactate 2.0 mmol/L (0.6-1.4) H 09/09/19 22:46 Calcium 8.2 mg/dL (8.5-10.1) L 09/10/19 06:35 Magnesium 1.9 mg/dL (1.8-2.4) 09/09/19 22:46 Total Bilirubin 0.4 mg/dL (0.2-1.0) 09/09/19 22:46 AST 58 U/L (15-37) H 09/09/19 22:46 ALT 29 U/L (14-59) 09/09/19 22:46 Alkaline Phosphatase 239 U/L (46-116) H 09/09/19 22:46 Troponin I < 0.05 ng/mL (<0.06) 09/10/19 01:35 Total Protein 8.4 g/dL (6.4-8.2) H 09/09/19 22:46 Albumin 3.1 g/dL (3.4-5.0) L 09/09/19 22:46 Urine Color Yellow (Yellow) 09/09/19 23:10 Urine Clarity Cloudy (Clear) 09/09/19 23:10 Urine pH 6.0 (5-8) 09/09/19 23:10 Ur Specific [place] 1.015 (1.005-1.025) 09/09/19 23:10 Urine Protein 30 mg/dL (Negative) H 09/09/19 23:10 Urine Ketones Negative mg/dL (Negative) 09/09/19 23:10 Urine Blood Trace-intact (Negative) H 09/09/19 23:10 Urine Nitrite Positive (Negative) H 09/09/19 23:10 Urine Bilirubin Negative (Negative) 09/09/19 23:10 Urine Urobilinogen 0.2 EU/dL (Up TO 0.2) 09/09/19 23:10 Ur Leukocyte Esterase Small (Negative) H 09/09/19 23:10 Urine RBC Negative HPF (0-2) 09/09/19 23:10 Urine WBC >50 HPF (0-5) H 09/09/19 23:10 Ur Epithelial Cells Negative HPF (Negative) 09/09/19 23:10 Urine Crystals Negative HPF (Negative) 09/09/19 23:10 Urine Bacteria Moderate HPF (Negative) 09/09/19 23:10 Urine Casts Negative LPF (Negative) 09/09/19 23:10 Urine Mucus Moderate (Negative) 09/09/19 23:10 Urine Other Few renal (Negative) 09/09/19 23:10 Ur Culture Indicated? Yes 09/09/19 23:10 Urine Glucose Negative mg/dL (Negative) 09/09/19 23:10 COVID-19 PCR Negative (Negative) 09/10/19 00:08 Nasopharyn COVID-19 PCR Not Applicable 09/10/19 00:08 Ref Test Perform Site [facility] lab 09/10/19 00:08
[2019-09-10] MEDS: DULoxetine 30 MG CAP 60 MG PO (22:32)
[2019-09-11] MEDS: Vancomycin 125 MG CAP PO ×4 (06:18→23:27)
[2019-09-11] MEDS: Levothyroxine 150 MCG TAB PO (06:18)
[2019-09-11 07:37] VITALS: BP 128/79; PULSE 74; RESP 19; TEMP 36.6; O2SAT 96
[2019-09-11] MEDS: IMIPENEM/CILASTATIN 500 MG in Normal Saline 100 ML 200 MG IVPB ×3 (08:13→23:28)
[2019-09-11] MEDS: Hydrocortisone SOD SUC. 100 MG VIAL 50 MG IVP ×3 (08:14→23:28)
[2019-09-11] MEDS: Normal Saline Flush 10 ML SYR IVP ×3 (08:14→23:02)
[2019-09-11] MEDS: Pregabalin 100 MG CAP 200 MG PO ×3 (08:15→20:18)
[2019-09-11] MEDS: Omeprazole 20 MG CAPCR 40 MG PO (08:15)
[2019-09-11] MEDS: Lactobacillus Acidophilus CAP 1 CAP PO ×2 (08:16→20:18)
[2019-09-11] MEDS: Loratidine 10 MG TAB PO (08:16)
[2019-09-11] MEDS: Cyanocobalamin 500 MCG TAB 1000 MCG PO (08:16)
[2019-09-11] MEDS: Folic Acid 1 MG TAB PO (08:16)
[2019-09-11] MEDS: Oxybutynin 5 MG TAB PO ×3 (08:16→20:18)
[2019-09-11] MEDS: Apixaban 5 MG TAB PO ×2 (08:16→20:18)
[2019-09-11] MEDS: carBAMazepine 200 MG TAB PO ×2 (08:16→20:18)
[2019-09-11] MEDS: Montelukast 10 MG TAB PO (08:16)
[2019-09-11] MEDS: Ferrous Sulfate 325 MG TAB PO (08:16)
[2019-09-11] MEDS: Insulin Aspart 300 UNITS/3 ML PEN SC ×3 (08:17→22:59)
[2019-09-11] MEDS: Budesonide/Formoterol 160/4.5 6 GM 60 PUFF INH IH ×2 (08:18→20:17)
[2019-09-11] MEDS: Tiotropium Bromide-Respimat 10 PUFF INH IH (08:19)
[2019-09-11 08:41] LABS: Lactate 1.1 mmol/L (0.6-1.4)
--- NOTE | 2019-09-11 08:42 | W.PM.PROGNOT ---
Date of Service Date of service: 09/11/19 Time of Service: 08:42 Assessment and Plan Assessment and plan (1) Positive blood cultures: Status: Acute Assessment and plan: possible contaminant, no antibiotic change she is improving significantly. (2) UTI (urinary tract infection): Status: Acute Assessment and plan: imipenem day 2 based on previous cultures the showed ESBL citrobacter that did not respond to ceftriaxone and cipro, ID and sensitivities pending. will need catheter change when infection cleared. (3) Recurrent Clostridium difficile diarrhea: Status: Acute Assessment and plan: stable at this time, will continue prophylactic vancomycin and continue to monitor. last admission infection cleared with dificid as recommended by GI at [facility]. her PCR was negative. she has been considered for stool transplant and should she have another cdiff infection she needs to follow up with them. (4) Diabetes mellitus: Status: Chronic Assessment and plan: blood sugars well controlled at 149-179 today. will continue diabetic diet, current insulin regimen with sliding scale coverage as needed. continue to monitor and adjust as needed. Her last A1c was 8.5 at the end of June 2019 Qualifiers: Chronic kidney disease stage: stage 3 (moderate) Diabetes mellitus complication detail: with chronic kidney disease Diabetes mellitus complication status: with kidney complications Diabetes mellitus senior living insulin use: with senior living use Diabetes mellitus type: type 2 Qualified Code(s): E11.22 - Type 2 diabetes mellitus with diabetic chronic kidney disease; N18.3 - Chronic kidney disease, stage 3 (moderate); Z79.4 - group home (current) use of insulin (5) Adrenal insufficiency: Status: Chronic Assessment and plan: received stress dose steroids and is hemodynamically stable. (6) Cancer related pain: Status: Chronic Assessment and plan: stable and well controlled, continue current regimen, no changes needed. (7) History of pulmonary embolism: Status: Chronic Assessment and plan: respiratory status is stable, continue eliquis (8) Hypothyroidism: Status: Chronic Assessment and plan: TSH 0.15 in august 2019. will continue current dose, defer changes to outpatient team (9) History of breast cancer: Status: Chronic Assessment and plan: on letrozole (10) DVT prophylaxis: Status: Acute Assessment and plan: fully anticoagulated on eliquis (11) Discharge planning issues: Status: Acute Assessment and plan: home with no services when medically stable. case and plan discussed with Dr Hernandes who is in agreement Subjective Subjective Patient reports: no new complaints, feels better, tolerating liquids well, tolerating a regular diet and afebrile; denies diarrhea Exam Const General: cooperative, no acute distress, frail appearing and ill appearing chronically Nutritional Appearance: obese Orientation: alert, awake and oriented x3 HENMT Head: normal to inspection, normocephalic and atraumatic Resp Effort & Inspection: normal respiratory effort Auscultation: diminished lung sounds bilaterally in the lower lung sinclair Cardio Rate: regular rate Rhythm: regular rhythm GI Inspection: normal to inspection and large pannus Palpation: soft Neuro General: patient alert, patient awake and patient oriented x3 Extrem General: normal to inspection, full ROM and edema (generalized) Objective Objective Clinical Data: Vital Signs Temperature 36.6 C 09/11/19 07:37 Temperature Source Temporal Artery Scan 09/11/19 07:37 Pulse 74 09/11/19 07:37 Pulse Rhythm Regular 09/11/19 03:49 Pulse 109 H 09/10/19 01:40 Respiratory Rate 19 09/11/19 07:37 Respiratory Effort Non-Labored 09/11/19 03:49 Respiratory Depth Normal 09/11/19 03:49 Respiratory Pattern Normal 09/11/19 03:49 Blood Pressure 128/79 09/11/19 07:37 Blood Pressure Mean 76 09/10/19 01:30 Blood Pressure Position Supine 09/09/19 21:54 Pulse Oximetry 96 09/11/19 07:37 Oxygen Delivery Method Nasal Cannula 09/11/19 07:37 Oxygen Flow Rate 2 09/11/19 07:37 Pain Level 0 09/11/19 07:37 Comment 09/10/19 02:15 Intake & Output 09/10/19 09/10/19 09/11/19 11:59 23:59 11:59 Intake Total 220 / 1670 1450 / 1670 400 / 400 Output Total 550 / 1650 1100 / 1650 425 / 425 Balance -330 / 20 350 / 20 -25 / -25 Weight 146.1 kg 144.2 kg Intake: IV 100 / 1300 1200 / 1300 Oral 120 / 370 250 / 370 400 / 400 Output: Urine 550 / 1650 1100 / 1650 425 / 425 Other: Urine Color Dark Giselle Yellow Light Giselle Urine Appearance Clear Clear Clear Stool Size Large Stool Characteristics Soft Formed Brown Laboratory Results WBC 6.15 k/cumm (4.4-10.8) 09/10/19 06:35 RBC 2.95 m/cumm (4.00-5.20) L 09/10/19 06:35 Hgb 8.6 g/dL (12.0-15.5) L 09/10/19 06:35 Hct 27.9 % (36.0-46.0) L 09/10/19 06:35 MCV 94.6 fL (80-95) 09/10/19 06:35 MCH 29.2 pg (27.0-33.0) 09/10/19 06:35 MCHC 30.8 g/dL (32.0-36.0) L 09/10/19 06:35 RDW 16.0 % (11.7-14.6) H 09/10/19 06:35 Plt Count 228 x1000/uL (130-400) 09/10/19 06:35 MPV 9.2 fL (8.0-11.0) 09/10/19 06:35 Immature Gran % 0.2 % 09/10/19 06:35 Neutrophils % 80.0 09/10/19 06:35 Lymphocytes % 13.7 09/10/19 06:35 Monocytes % 5.9 09/10/19 06:35 Eosinophils % 0.2 09/10/19 06:35 Basophils % 0.0 09/10/19 06:35 Absolute Neutrophils 4.93 k/cumm (1.2-6.7) 09/10/19 06:35 Absolute Lymphocytes 0.84 k/cumm (1.2-3.4) L 09/10/19 06:35 Absolute Monocytes 0.36 k/cumm (0.11-0.7) 09/10/19 06:35 Absolute Eosinophils 0.01 k/cumm (0.0-0.7) 09/10/19 06:35 Absolute Basophils 0.00 k/cumm (0.0-0.2) 09/10/19 06:35 Sodium 136 mmol/L (136-145) 09/10/19 06:35 Potassium 4.1 mmol/L (3.5-5.1) 09/10/19 06:35 Chloride 101 mmol/L (98-107) 09/10/19 06:35 Carbon Dioxide 25.7 mmol/L (21.0-32.0) 09/10/19 06:35 Anion Gap 9.3 mmol/L (3-11) 09/10/19 06:35 BUN 16 mg/dL (7-18) 09/10/19 06:35 Creatinine 1.32 mg/dL (0.55-1.02) H 09/10/19 06:35 Estimated GFR/1.73 m2 41.05 (mL/min/1.73m2) 09/10/19 06:35 Glucose 327 mg/dL (74-106) H 09/10/19 06:35 Lactate 2.0 mmol/L (0.6-1.4) H 09/09/19 22:46 Calcium 8.2 mg/dL (8.5-10.1) L 09/10/19 06:35 Magnesium 1.9 mg/dL (1.8-2.4) 09/09/19 22:46 Total Bilirubin 0.4 mg/dL (0.2-1.0) 09/09/19 22:46 AST 58 U/L (15-37) H 09/09/19 22:46 ALT 29 U/L (14-59) 09/09/19 22:46 Alkaline Phosphatase 239 U/L (46-116) H 09/09/19 22:46 Troponin I < 0.05 ng/mL (<0.06) 09/10/19 01:35 Total Protein 8.4 g/dL (6.4-8.2) H 09/09/19 22:46 Albumin 3.1 g/dL (3.4-5.0) L 09/09/19 22:46 Urine Color Yellow (Yellow) 09/09/19 23:10 Urine Clarity Cloudy (Clear) 09/09/19 23:10 Urine pH 6.0 (5-8) 09/09/19 23:10 Ur Specific [place] 1.015 (1.005-1.025) 09/09/19 23:10 Urine Protein 30 mg/dL (Negative) H 09/09/19 23:10 Urine Ketones Negative mg/dL (Negative) 09/09/19 23:10 Urine Blood Trace-intact (Negative) H 09/09/19 23:10 Urine Nitrite Positive (Negative) H 09/09/19 23:10 Urine Bilirubin Negative (Negative) 09/09/19 23:10 Urine Urobilinogen 0.2 EU/dL (Up TO 0.2) 09/09/19 23:10 Ur Leukocyte Esterase Small (Negative) H 09/09/19 23:10 Urine RBC Negative HPF (0-2) 09/09/19 23:10 Urine WBC >50 HPF (0-5) H 09/09/19 23:10 Ur Epithelial Cells Negative HPF (Negative) 09/09/19 23:10 Urine Crystals Negative HPF (Negative) 09/09/19 23:10 Urine Bacteria Moderate HPF (Negative) 09/09/19 23:10 Urine Casts Negative LPF (Negative) 09/09/19 23:10 Urine Mucus Moderate (Negative) 09/09/19 23:10 Urine Other Few renal (Negative) 09/09/19 23:10 Ur Culture Indicated? Yes 09/09/19 23:10 Urine Glucose Negative mg/dL (Negative) 09/09/19 23:10 COVID-19 PCR Negative (Negative) 09/10/19 00:08 Nasopharyn COVID-19 PCR Not Applicable 09/10/19 00:08 Ref Test Perform Site [place] [facility] lab 09/10/19 00:08
[2019-09-11 08:45] LABS: Abs Immature Grans 0.01 k/cumm (0.0-0.09); Absolute Eosinophil Count 0.01 k/cumm (0.0-0.7); Absolute Lymphocyte Count 1.25 k/cumm (1.2-3.4); Absolute Neutrophil Count 4.77 k/cumm (1.2-6.7); Eosinophils % 0.2; HCT 27.7 % (36.0-46.0); HGB 8.6 g/dL (12.0-15.5); Immature Grans % 0.2 %; Mean Corpuscular Hemoglobin 29.1 pg (27.0-33.0); Mean Corpuscular Volume 93.6 fL (80-95); Monocytes % 3.2; Neutrophils % 76.4; Platelet Count 236 x1000/uL (130-400); RBC 2.96 m/cumm (4.00-5.20); RBC Distribution Width 15.8 % (11.7-14.6); White Blood Cell Count 6.24 k/cumm (4.4-10.8)
[2019-09-11 08:56] LABS: Anion Gap 9.9 mmol/L (3-11); BUN 20 mg/dL (7-18); CO2 27.1 mmol/L (21.0-32.0); CREATININE 1.14 mg/dL (0.55-1.02); Calcium 8.8 mg/dL (8.5-10.1); Chloride 101 mmol/L (98-107); Estimated GFR 48.62 (mL/min/1.73m2); Glucose 150 mg/dL (74-106); Potassium 3.7 mmol/L (3.5-5.1); Sodium 138 mmol/L (136-145)
--- NOTE | 2019-09-11 11:26 | PDOC.CMPRO ---
- If Service Date Differs Date of service: 09/11/19 Time of Service: 11:29 Care Management Progress Note S/O: Candace was sitting up in her chair when CM met with her. She is very pleasant and engaged in conversation, as usual. She reports that she is feeling better. Per report, she is on day two of Imipenem, as the infection did not respond to ceftriaxone and cipro. CM will continue to follow. A: Candace is a 59 year old female admitted to [facility] on 09/10/19 with UTI. P: Anticipate Candace will return home with a resumption of HH services once she is medically ready for discharge. Her HH is through [facility], CM will send discharge summary once it is available. Her daughter, Kiki, is identified as her support person/visitor for this admission. Kiki will drive her home via private vehicle when ready. CM will continue to follow and support discharge planning considerations.
[2019-09-11 15:38] VITALS: BP 114/69; PULSE 77; RESP 20; TEMP 36.6; O2SAT 97
--- NOTE | 2019-09-11 16:49 | NUR.NOTE ---
Nursing Note: Told Kassy capacity analyst about positive blood cultures and that lab said that they might be contaminated.
[2019-09-11] MEDS: DULoxetine 30 MG CAP 60 MG PO (22:58)
[2019-09-12 00:01] VITALS: BP 128/76; PULSE 73; RESP 19; TEMP 36.6; O2SAT 95
[2019-09-12] MEDS: Vancomycin 125 MG CAP PO ×4 (06:05→23:14)
[2019-09-12] MEDS: Levothyroxine 150 MCG TAB PO (06:05)
[2019-09-12] MEDS: Loratidine 10 MG TAB PO (07:43)
[2019-09-12] MEDS: Montelukast 10 MG TAB PO (07:43)
[2019-09-12] MEDS: Apixaban 5 MG TAB PO ×2 (07:43→20:39)
[2019-09-12] MEDS: Folic Acid 1 MG TAB PO (07:43)
[2019-09-12] MEDS: Ferrous Sulfate 325 MG TAB PO (07:43)
[2019-09-12] MEDS: Oxybutynin 5 MG TAB PO ×3 (07:43→20:40)
[2019-09-12] MEDS: Pregabalin 100 MG CAP 200 MG PO ×3 (07:44→20:39)
[2019-09-12] MEDS: Cyanocobalamin 500 MCG TAB 1000 MCG PO (07:44)
[2019-09-12] MEDS: Lactobacillus Acidophilus CAP 1 CAP PO (07:44)
[2019-09-12] MEDS: carBAMazepine 200 MG TAB PO ×2 (07:44→20:39)
[2019-09-12] MEDS: Omeprazole 20 MG CAPCR 40 MG PO (07:44)
[2019-09-12] MEDS: guaiFENesin 600 MG TABCR PO ×2 (07:44→20:39)
[2019-09-12] MEDS: fentaNYL 50 MCG PATCH TD (07:45)
[2019-09-12] MEDS: IMIPENEM/CILASTATIN 500 MG in Normal Saline 100 ML 200 MG IVPB ×3 (07:45→23:15)
[2019-09-12] MEDS: HYDROcodone 5/Acetaminophen 325 TAB PO ×3 (07:46→20:40)
[2019-09-12] MEDS: Hydrocortisone SOD SUC. 100 MG VIAL 50 MG IVP ×2 (07:47→20:41)
[2019-09-12 07:50] VITALS: BP 123/73; PULSE 68; RESP 18; TEMP 35.6; O2SAT 96
[2019-09-12] MEDS: Normal Saline Flush 10 ML SYR IVP ×4 (07:55→23:14)
[2019-09-12] MEDS: Budesonide/Formoterol 160/4.5 6 GM 60 PUFF INH IH ×2 (08:05→20:42)
[2019-09-12] MEDS: Tiotropium Bromide-Respimat 10 PUFF INH IH (08:05)
[2019-09-12 09:09] LABS: Abs Immature Grans 0.01 k/cumm (0.0-0.09); Absolute Basophil Count 0.01 k/cumm (0.0-0.2); Absolute Eosinophil Count 0.03 k/cumm (0.0-0.7); Absolute Lymphocyte Count 1.54 k/cumm (1.2-3.4); Absolute Monocyte Count 0.22 k/cumm (0.11-0.7); Absolute Neutrophil Count 3.16 k/cumm (1.2-6.7); Basophils % 0.2; Eosinophils % 0.6; HCT 27.2 % (36.0-46.0); HGB 8.7 g/dL (12.0-15.5); Immature Grans % 0.2 %; Mean Corpuscular Hemoglobin 29.8 pg (27.0-33.0); Mean Corpuscular Volume 93.2 fL (80-95); Mean Platelet Volume 8.7 fL (8.0-11.0); Monocytes % 4.4; Neutrophils % 63.6; Platelet Count 226 x1000/uL (130-400); RBC 2.92 m/cumm (4.00-5.20); RBC Distribution Width 15.7 % (11.7-14.6); White Blood Cell Count 4.97 k/cumm (4.4-10.8)
[2019-09-12 09:16] LABS: Anion Gap 8.6 mmol/L (3-11); BUN 20 mg/dL (7-18); CO2 28.4 mmol/L (21.0-32.0); CREATININE 1.04 mg/dL (0.55-1.02); Calcium 8.8 mg/dL (8.5-10.1); Chloride 100 mmol/L (98-107); Estimated GFR 54.05 (mL/min/1.73m2); Glucose 100 mg/dL (74-106); Potassium 3.6 mmol/L (3.5-5.1); Sodium 137 mmol/L (136-145)
[2019-09-12 09:57] LABS: Bilirubin Negative (Negative); Blood Large (Negative); Clarity Sl Cloudy (Clear); Glucose Negative (Negative); Ketones Trace mg/dL (Negative); Leukocyte Esterase Negative (Negative); Nitrite Negative (Negative); Urobilinogen 0.2 EU/dL (Up TO 0.2)
[2019-09-12 10:10] LABS: C & S Indicated? No; Epithelial Cells Few HPF (Negative); Other Cells Moderate Renal (Negative)
[2019-09-12 10:11] LABS: RBC >50 HPF (0-2)
[2019-09-12 11:50] VITALS: BP 127/80; PULSE 64; RESP 20; TEMP 36.7; O2SAT 95
--- NOTE | 2019-09-12 12:01 | PGE_ITS ---
Date of Service Date of service: 09/12/19 Time of Service: 12:04 Assessment and Plan Assessment and plan (1) Positive blood cultures: Start date: 09/12/19 Start time: 12:10 Status: Acute Assessment and plan: possible contaminant, no antibiotic change she is improving significantly. Will repeat blood cultures. (2) UTI (urinary tract infection): Start date: 09/12/19 Start time: 12:10 Status: Acute Assessment and plan: Imipenem Day 3 sensitivities to Cipro, Levoflaxacin, Nitrofurantion, tobramycin, Repeat urine cx and exchage alex when negative cx will also change to PO antibiotic. (3) Recurrent Clostridium difficile diarrhea: Start date: 09/12/19 Start time: 12:12 Status: Acute Assessment and plan: stable at this time, will continue prophylactic vancomycin and continue to monitor. last admission infection cleared with dificid as [place] [facility] PCR was negative. she has been considered for stool transplant and should she have another cdiff infection she needs to follow up with them. (4) Diabetes mellitus: Start date: 09/12/19 Start time: 12:13 Status: Chronic Assessment and plan: blood sugars well controlled at 85-108 today. will continue diabetic diet, current insulin regimen with sliding scale coverage as needed. continue to monitor and adjust as needed. 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 (6) Cancer related pain: Start date: 09/12/19 Start time: 12:15 Status: Chronic Assessment and plan: stable and well controlled, continue current regimen, no changes needed. (7) History of pulmonary embolism: Start date: 09/12/19 Start time: 12:15 Status: Chronic Assessment and plan: respiratory status is stable, continue eliquis (8) Hypothyroidism: Start date: 09/12/19 Start time: Status: Chronic Assessment and plan: TSH 0.15 in august 2019. will continue current dose, defer changes to outpatient team (9) History of breast cancer: Start date: 09/12/19 Start time: Status: Chronic Assessment and plan: on letrozole (10) DVT prophylaxis: Start date: 09/12/19 Start time: Status: Acute Assessment and plan: fully anticoagulated on eliquis (11) Discharge planning issues: Start date: 09/12/19 Start time: Status: Acute Assessment and plan: home with no services when medically stable. case and plan discussed with Dr Hernandes who is in agreement Subjective Subjective Patient reports: no new complaints Interval history since last seen: sitting up in chair. States doing leg exercises trying to keep strength. Eating ok, toileting. Exam Const General: cooperative, no acute distress, frail appearing and ill appearing chronically Nutritional Appearance: obese Orientation: alert, awake and oriented x3 HENMT Head: normal to inspection, normocephalic and atraumatic Resp Effort & Inspection: normal respiratory effort Auscultation: diminished lung sounds bilaterally in the lower lung sinclair Cardio Rate: regular rate Rhythm: regular rhythm GI Inspection: normal to inspection and large pannus Palpation: soft Neuro General: patient alert, patient awake and patient oriented x3 Extrem General: normal to inspection, full ROM and edema (generalized) Objective Objective Clinical Data: Abnormal lab results 09/12/19 09/12/19 09/12/19 Range/Units 09:02 09:02 09:30 RBC 2.92 L (4.00-5.20) m/cumm Hgb 8.7 L (12.0-15.5) g/dL Hct 27.2 L (36.0-46.0) % RDW 15.7 H (11.7-14.6) % BUN 20 H (7-18) mg/dL Creatinine 1.04 H (0.55-1.02) mg/dL Urine Protein 30 H (Negative) mg/dL Urine Ketones Trace H (Negative) mg/dL Urine Blood Large H (Negative) Urine RBC >50 H (0-2) HPF Vital Signs Temperature 35.6 C L 07/12/20 07:50 Temperature Source Tympanic 09/12/19 07:50 Pulse 68 09/12/19 07:50 Pulse Rhythm Regular 09/12/19 11:46 Pulse 109 H 09/10/19 01:40 Respiratory Rate 18 09/12/19 07:50 Respiratory Effort Non-Labored 09/12/19 11:46 Respiratory Depth Normal 09/12/19 11:46 Respiratory Pattern Normal 09/12/19 11:46 Blood Pressure 123/73 09/12/19 07:50 Blood Pressure Mean 76 09/10/19 01:30 Blood Pressure Position Supine 09/09/19 21:54 Pulse Oximetry 96 09/12/19 07:50 Oxygen Delivery Method Room Air 09/12/19 07:50 Oxygen Flow Rate 0 09/12/19 07:50 Pain Level 8 09/12/19 07:46 Comment 09/10/19 02:15 Intake & Output 09/11/19 09/12/19 09/12/19 23:59 11:59 23:59 Intake Total 920 / 1420 1210 / 1210 Output Total 1150 / 1575 600 / 600 Balance -230 / -155 610 / 610 Weight 144.7 kg Intake: IV 200 / 300 230 / 230 Oral 720 / 1120 980 / 980 Output: Urine 1150 / 1575 600 / 600 Other: Urine Color Light Giselle Yellow Urine Appearance Clear Clear Laboratory Results WBC 4.97 k/cumm (4.4-10.8) 09/12/19 09:02 RBC 2.92 m/cumm (4.00-5.20) L 09/12/19 09:02 Hgb 8.7 g/dL (12.0-15.5) L 09/12/19 09:02 Hct 27.2 % (36.0-46.0) L 09/12/19 09:02 MCV 93.2 fL (80-95) 09/12/19 09:02 MCH 29.8 pg (27.0-33.0) 09/12/19 09:02 MCHC 32.0 g/dL (32.0-36.0) 09/12/19 09:02 RDW 15.7 % (11.7-14.6) H 09/12/19 09:02 Plt Count 226 x1000/uL (130-400) 09/12/19 09:02 MPV 8.7 fL (8.0-11.0) 09/12/19 09:02 Immature Gran % 0.2 % 09/12/19 09:02 Neutrophils % 63.6 09/12/19 09:02 Lymphocytes % 31.0 09/12/19 09:02 Monocytes % 4.4 09/12/19 09:02 Eosinophils % 0.6 09/12/19 09:02 Basophils % 0.2 09/12/19 09:02 Absolute Neutrophils 3.16 k/cumm (1.2-6.7) 09/12/19 09:02 Absolute Lymphocytes 1.54 k/cumm (1.2-3.4) 09/12/19 09:02 Absolute Monocytes 0.22 k/cumm (0.11-0.7) 09/12/19 09:02 Absolute Eosinophils 0.03 k/cumm (0.0-0.7) 09/12/19 09:02 Absolute Basophils 0.01 k/cumm (0.0-0.2) 09/12/19 09:02 Sodium 137 mmol/L (136-145) 09/12/19 09:02 Potassium 3.6 mmol/L (3.5-5.1) 09/12/19 09:02 Chloride 100 mmol/L (98-107) 09/12/19 09:02 Carbon Dioxide 28.4 mmol/L (21.0-32.0) 09/12/19 09:02 Anion Gap 8.6 mmol/L (3-11) 09/12/19 09:02 BUN 20 mg/dL (7-18) H 09/12/19 09:02 Creatinine 1.04 mg/dL (0.55-1.02) H 09/12/19 09:02 Estimated GFR/1.73 m2 54.05 (mL/min/1.73m2) 09/12/19 09:02 Glucose 100 mg/dL (74-106) D 09/12/19 09:02 Lactate 1.1 mmol/L (0.6-1.4) 09/11/19 08:38 Calcium 8.8 mg/dL (8.5-10.1) 09/12/19 09:02 Magnesium 2.0 mg/dL (1.8-2.4) 09/11/19 08:38 Total Bilirubin 0.4 mg/dL (0.2-1.0) 09/09/19 22:46 AST 58 U/L (15-37) H 09/09/19 22:46 ALT 29 U/L (14-59) 09/09/19 22:46 Alkaline Phosphatase 239 U/L (46-116) H 09/09/19 22:46 Troponin I < 0.05 ng/mL (<0.06) 09/10/19 01:35 Total Protein 8.4 g/dL (6.4-8.2) H 09/09/19 22:46 Albumin 3.1 g/dL (3.4-5.0) L 09/09/19 22:46 Urine Color [place] (Yellow) 09/12/19 09:30 Urine Clarity Sl cloudy (Clear) 09/12/19 09:30 Urine pH 6.0 (5-8) 09/12/19 09:30 Ur Specific [place] 1.020 (1.005-1.025) 09/12/19 09:30 Urine Protein 30 mg/dL (Negative) H 09/12/19 09:30 Urine Ketones Trace mg/dL (Negative) H 09/12/19 09:30 Urine Blood Large (Negative) H 09/12/19 09:30 Urine Nitrite Negative (Negative) 09/12/19 09:30 Urine Bilirubin Negative (Negative) 09/12/19 09:30 Urine Urobilinogen 0.2 EU/dL (Up TO 0.2) 09/12/19 09:30 Ur Leukocyte Esterase Negative (Negative) 09/12/19 09:30 Urine RBC >50 HPF (0-2) H 09/12/19 09:30 Urine WBC Not Applicable 09/12/19 09:30 Ur Epithelial Cells Few HPF (Negative) 09/12/19 09:30 Urine Crystals Not Applicable 09/12/19 09:30 Urine Bacteria Not Applicable 09/12/19 09:30 Urine Casts Negative LPF (Negative) 09/09/19 23:10 Urine Mucus Not Applicable 09/12/19 09:30 Urine Other Moderate renal (Negative) 09/12/19 09:30 Ur Culture Indicated? No 09/12/19 09:30 Urine Glucose Negative mg/dL (Negative) 09/12/19 09:30 COVID-19 PCR Negative (Negative) 09/10/19 00:08 Nasopharyn COVID-19 PCR Not Applicable 09/10/19 00:08 Ref Test Perform Site [facility] lab 09/10/19 00:08
[2019-09-12] MEDS: Hydrocortisone 10 MG TAB 5 MG PO (15:55)
--- NOTE | 2019-09-12 16:24 | PDOC.CMPRO ---
- If Service Date Differs Date of service: 09/12/19 Time of Service: 16:24 Care Management Progress Note S/O: Candace was sitting up in her chair when CM met with her. She is very pleasant and engaged in conversation, as usual. She reports that she is feeling better, although she feels that she is getting weaker. Candace talked a bit about her cancer history and past and current therapy. She stated that she has metastasis to her back and may need to receive a steroid injection from her oncologist to control the pain. A repeat urinalysis was done to see if her urine has cleared in preparation for changing her alex catheter. Candace will likely be discharged with a alex since it does not appear that she is emptying her bladder and this may be contributing to her recurrent UTIs. A: Candace is a 59 year old female admitted to [facility] on 09/10/19 with UTI. P: Anticipate Candace will return home with a resumption of services once she is medically ready for discharge. Her HH is through [facility], CM will send discharge summary once it is available. Her daughter, Kiki, is identified as her support person/visitor for this admission. Kiki will drive her home via private vehicle when ready. CM will continue to follow and support discharge planning considerations. cc:
[2019-09-12 17:20] VITALS: BP 117/74; PULSE 66; RESP 19; TEMP 36.6; O2SAT 96
--- NOTE | 2019-09-12 17:32 | NUR.NOTE ---
Nursing Note: Dinner BG 67,as per protocol gave pt snack containing 27 G of carbs. Pt totally asymptomatic.
[2019-09-12] MEDS: DULoxetine 30 MG CAP 60 MG PO (21:48)
[2019-09-12 23:43] VITALS: BP 151/71; PULSE 72; RESP 17; TEMP 36.5; O2SAT 97
[2019-09-13] MEDS: Vancomycin 125 MG CAP PO ×3 (05:39→17:12)
[2019-09-13] MEDS: Levothyroxine 150 MCG TAB PO (05:39)
[2019-09-13] MEDS: HYDROcodone 5/Acetaminophen 325 TAB PO ×2 (06:45→11:07)
[2019-09-13 06:50] LABS: Abs Immature Grans 0.03 k/cumm (0.0-0.09); Absolute Eosinophil Count 0.04 k/cumm (0.0-0.7); Absolute Lymphocyte Count 1.44 k/cumm (1.2-3.4); Absolute Monocyte Count 0.21 k/cumm (0.11-0.7); Eosinophils % 1.1; HGB 8.1 g/dL (12.0-15.5); Immature Grans % 0.8 %; Lymphocytes % 38.7; Mean Corp. HGB Concentration 31.2 g/dL (32.0-36.0); Mean Corpuscular Hemoglobin 29.3 pg (27.0-33.0); Mean Corpuscular Volume 94.2 fL (80-95); Mean Platelet Volume 9.1 fL (8.0-11.0); Monocytes % 5.6; Neutrophils % 53.8; Platelet Count 232 x1000/uL (130-400); RBC 2.76 m/cumm (4.00-5.20); RBC Distribution Width 15.7 % (11.7-14.6); White Blood Cell Count 3.72 k/cumm (4.4-10.8)
[2019-09-13 07:00] LABS: Anion Gap 6.5 mmol/L (3-11); BUN 19 mg/dL (7-18); CO2 30.5 mmol/L (21.0-32.0); CREATININE 1.01 mg/dL (0.55-1.02); Calcium 8.9 mg/dL (8.5-10.1); Chloride 101 mmol/L (98-107); Estimated GFR 55.91 (mL/min/1.73m2); Glucose 90 mg/dL (74-106); Potassium 4.1 mmol/L (3.5-5.1); Sodium 138 mmol/L (136-145)
[2019-09-13 07:12] LABS: Anisocytosis 1+; Diff Comment RBC Morph Reviewed; Polychromasia Present
[2019-09-13] MEDS: Pregabalin 100 MG CAP 200 MG PO ×3 (07:49→19:55)
[2019-09-13 07:50] VITALS: BP 121/51; PULSE 63; RESP 17; TEMP 36.5; O2SAT 98
[2019-09-13] MEDS: Loratidine 10 MG TAB PO (07:50)
[2019-09-13] MEDS: Omeprazole 20 MG CAPCR 40 MG PO (07:50)
[2019-09-13] MEDS: Montelukast 10 MG TAB PO (07:50)
[2019-09-13] MEDS: Oxybutynin 5 MG TAB PO ×3 (07:50→19:56)
[2019-09-13] MEDS: carBAMazepine 200 MG TAB PO ×2 (07:51→19:55)
[2019-09-13] MEDS: Folic Acid 1 MG TAB PO (07:51)
[2019-09-13] MEDS: Cyanocobalamin 500 MCG TAB 1000 MCG PO (07:51)
[2019-09-13] MEDS: Ferrous Sulfate 325 MG TAB PO (07:51)
[2019-09-13] MEDS: Apixaban 5 MG TAB PO ×2 (07:52→19:55)
[2019-09-13] MEDS: Hydrocortisone SOD SUC. 100 MG VIAL 50 MG IVP ×2 (07:52→19:55)
[2019-09-13] MEDS: Normal Saline Flush 10 ML SYR IVP ×3 (07:55→19:56)
[2019-09-13] MEDS: IMIPENEM/CILASTATIN 500 MG in Normal Saline 100 ML 200 MG IVPB ×2 (07:56→16:42)
[2019-09-13] MEDS: Budesonide/Formoterol 160/4.5 6 GM 60 PUFF INH IH ×2 (08:24→19:56)
[2019-09-13] MEDS: Tiotropium Bromide-Respimat 10 PUFF INH IH (08:25)
--- NOTE | 2019-09-13 08:34 | PDOC.CMPRO ---
- If Service Date Differs Date of service: 09/13/19 Time of Service: 08:35 Care Management Progress Note S/O: Candace was sitting up in a chair interacting with staff when CM met with her. She was in good spirits, as usual, and engaged readily. Candace appeared a bit more subdued today and admitted to being tired. Her last urinalysis was negative and so far her blood cultures are as well. If all cultures remain negative, Candace will likely discharge home tomorrow. A: Candace is a 59 year old female admitted to [facility] on 09/10/19 with UTI. P: Anticipate Candace will return home with a resumption of HH services once she is medically ready for discharge. Her HH is through [facility], CM will send discharge summary once it is available. Her daughter, Kiki, is identified as her support person/visitor for this admission. Kiki will drive her home via private vehicle when ready. CM will continue to follow and support discharge planning considerations. cc:
--- NOTE | 2019-09-13 08:57 | IN_ITS ---
Date of service: 09/13/19 Time of Service: 08:57 PT Notes Visit Reasons: UTI WITH SYSTEMIC INFLAMMATORY RESPONSE Physical Therapy Inpatient Initial Evaluation Dates: 09/13/2019 Referring Doctor: Ami Sanchez NP PT Orders: PT CONSULT: Limited ability Precautions: Fall. Standard. Activity as tolerated. Patient Profile/Admitting Diagnosis: Candace is a 59-year-old female who presented to the ED on 2019 with chief presentation of altered mental status and dehydration. Patient is diagnosed with UTI and lower lobe pneumonia with referral for skilled physical therapy services in order to address resulting impairments in mobility performance. PMHX: Medical History C. difficile diarrhea (Acute) Cancer related pain (Chronic) much improved with fentanyl patch Carpal tunnel syndrome (Acute) Chronic adrenal insufficiency (Acute) Chronic pain (Chronic) Chronic respiratory failure with hypoxia (Chronic) Chronic venous stasis dermatitis (Chronic) COPD (chronic obstructive pulmonary disease) (Chronic) On nocturnal oxygen - 2L prn Depression (Chronic) Diabetes mellitus (Chronic) Insulin dependent Diverticulosis (Acute) Dyslipidemia (Chronic) Goals of care, counseling/discussion (Acute) History of breast cancer (Chronic) metastatic, with lymphatic spread and bone mets Hyperlipidemia (Acute) Hypopituitarism (Chronic) Hypothyroidism (Chronic) Influenza B (Acute) Iron deficiency anemia (Acute) Metastatic breast cancer (Chronic) Obesity (Chronic) Obstructive sleep apnea (Chronic) per [facility] [place] [facility] records Palliative care patient (Chronic) Pneumonia (Acute) POLST (Physician Orders for Life-Sustaining Treatment) (Acute) done 03/26/19; sent to [facility] [place] [facility], [facility], [facility], [facility] to her Restless leg syndrome (Acute) Spinal stenosis (Acute) Stage IV breast cancer in female (Chronic) Uncontrolled pain (Resolved) Surgical History H/O bilateral mastectomy (Acute) H/O colonoscopy with polypectomy (Acute) History of carpal tunnel release of both wrists (Acute) Port-A-Cath in place (Acute) Status post transsphenoidal pituitary resection (Acute) Social History/Home Situation: Candace lives with her daughter in [place], [place] in a two-story house with a ramp to enter with rails on both sides. Patient has stairs to the second floor of the house but has everything she needs on the first floor. She is disabled. She has 2 daughters locally. She receives choices for care highest needs, and her daughter Kiki is her primary provider for 12 years now. Kiki provides assistance with bathing and does meal preapration and assistance with lower body dressing. She was independent with front-wheeled walker for in-house ambulation and uses the 4-wheeled walker for outdoor ambulation. She has to walk about 80-90 feet to get to her car. She is dependent on her daughter for transportation to and from appointments. Daughter also provides assistance with bathing patient's back due to body habitus. Equipment Owned/DME: Bariatric FWW, bariatric hospital bed, bariatric recliner, bariatric front wheeled walker, new bariatric wheelchair with seat and back cushions Subjective: Candace complains 8/10 pain in her right hip at rest and with movement. She says she is been dealing with this kind of pain for a long time now. She states that she has taken hydrocodone for it with good response. Objective: General Observation: [id number] in place. Hemosiderin staining observed in bilateral distal legs from CVI. Abdominal panniculus. Mental Status: Alert and oriented x 4 Pain: 8/10 in right hip at rest and with movement ROM: Right Upper Extremity: Shoulder flexion WFL. Elbow flexion WFL. Hands/wrist and fingers are WFL. Left Upper Extremity: Shoulder flexion WFL. Elbow flexion WFL. Hands/wrist and fingers are WFL. Right Lower Extremity: Patient is able to bend hip to about 20 degrees beyond 90 while seated at edge of bed. Knee flexion WFL. Dorsiflexion/plantarflexion WFL. Left Lower Extremity: Patient is able to bend hip to about 10 degrees beyond 90 while seated at edge of bed. Knee flexion WFL. Dorsiflexion/plantarflexion WFL. Strength: Right Upper Extremity: Shoulder flexion 4/5. Elbow flexion 4/5. Us Administrative Law Judge strong and functional Left Upper Extremity: Shoulder flexion 4/5. Elbow flexion 4/5. Us Administrative Law Judge strong and functional. Right Lower Extremity: Hip flexion 3-/5. Hip extension 3/5. Knee flexion 4/-5. Knee extension 4-/5. Ankle dorsiflexion/plantarflexion 4/5. Left Lower Extremity: Hip flexion 3-/5. Hip extension 3/5. Knee flexion 4-/5. Knee extension 4-/5. Ankle dorsiflexion/plantarflexion 4/5. Bed Mobility/Transfers: Sit to stand SBA, uses B UE for support Stand to sit SBA, needs front wheeled walker Bed to chair SBA, needs front wheeled walker Chair to bed SBA, needs front wheeled walker Gait: Patient tolerated level surface ambulation of 150 feet using bariatric front wheeled walker with SBA of PT, no wheelchair follow. Patient demonstrated minimal breathlessness and fatigue after activity that resolved with rest. Step-through gait pattern. 8/10 pain in the right hip with ambulation. Balance: Static Sitting: Good Dynamic Sitting: Good Static Standing: Fair Dynamic Standing: Fair Assessment: Candace demonstrates need for an assistive ambulatory device for all mobility ADL performance, minimal breathlessness, right hip pain limiting ambulation tolerance, and balance impairment diagnoses listed above. Candace is a 59-year-old female who presented to the ED on 2019 with chief presentation of altered mental status and dehydration. Patient is diagnosed with UTI and lower lobe pneumonia with referral for skilled physical therapy services in order to address resulting impairments in mobility performance. Goals: Goals X 1 week 1. Supine-Sit minimal assist 2. Sit-Supine minimal assist 3. Sit-Stand minimal assist 4. Stand-Sit minimal assist 5. Bed-Chair minimal assist 6. Chair-Bed minimal assist 7. Independent indoor ambulation using FWW for at least 200 feet without dyspnea and 2/10 pain in R hip 8. Independent with home exercise program 9. Static/dynamic standing balance/tolerance good DISCHARGE RECOMMENDATIONS: Patient will benefit from continued home health PT services in order to progress mobility level using four-wheeled walker, assess home safety, identify additional equipment needs, and cotninue with a functional maintenance program that will increase ability of patient to remain at home with daughter. No equipment needs at this time. PT Intervention: Session today consisted of initial physical therapy evaluation as well as education training on mobility ADL performance using front wheeled walker. TREATMENT CODE/TIME: 30288 x 30 minutes beginning at 8:57 AM. Thank you very much for this referral. Allie Miguel PT, DPT, CLT [facility] Inpatient PT at [place], [place]
[2019-09-13] MEDS: Insulin Aspart 300 UNITS/3 ML PEN SC (12:04)
--- NOTE | 2019-09-13 12:51 | PT.INTREAT ---
Date of service: 09/13/19 Time of Service: 12:51 PT Notes Visit Reasons: UTI WITH SYSTEMIC INFLAMMATORY RESPONSE Inpatient Physical Therapy Treatment Note [facility] Date: 09/13/2019 PRECAUTIONS: Fall. Standard. Activity as tolerated. SUBJECTIVE: Agreeable to a second PT session in the afternoon. Reported that she just got feel better in her right hip from walking this afternoon. She states that she may go home tomorrow if everything goes well. OBJECTIVE: General Observation: [id number]-i-[id number] in place. Hemosiderin staining observed in bilateral distal legs from CVI. Abdominal panniculus. Mental Status: Alert and oriented x 4 Pain: 8/10 in right hip at rest and with movement THERA EX: With 2.5 AW, patient tolerated long arc quads x10, seated hip abduction and adduction x10, and resisted knee flexion with additional use of a red TB x10.use of 1 pound dumbbell patient tolerated shoulder flexion x10, elbow extension times 10, elbow flexion x 10 with good response. ASSESSMENT: Patient tolerated exercise session this morning and this afternoon. His hips with ambulation activity Anette was notified. PLAN: Patient will benefit from home health PT services in order to progress mobility level using least restrictive assistive ambulatory device, assess home safety, identify additional equipment needs, and establish a functional maintenance program that will increase ability of patient to remain at home. TREATMENT CODE/TIME: 62915 x 23 minutes beginning at 12:51 PM.
--- NOTE | 2019-09-13 13:01 | PGE_ITS ---
Date of Service Date of service: 09/13/19 Time of Service: 13:11 Assessment and Plan Assessment and plan (1) Positive blood cultures: Start date: 09/13/19 Start time: 14:29 Status: Acute Assessment and plan: Repeat blood cultures NGTD at 24 hours. (2) UTI (urinary tract infection): Start date: 09/13/19 Start time: 14:29 Status: Acute Assessment and plan: Repeat ua, negative nitrates, negative Leukocyte est. Repeat culture. Pending at this time. She states feeling better. Continue current antbx regimen. (3) Recurrent Clostridium difficile diarrhea: Start date: 09/13/19 Start time: 14:30 Status: Acute Assessment and plan: stable at this time, will continue prophylactic vancomycin and continue to monitor. last admission infection cleared with dificid as recommended by GI at [facility]. her PCR was negative. she has been considered for stool transplant and should she have another cdiff infection she needs to follow up with them. (4) Diabetes mellitus: Start date: 09/13/19 Start time: 14:30 Status: Chronic Assessment and plan: Controlled, decreased am insulin yesterday, her steroids were decreased, bgl 163 today. Qualifiers: Diabetes mellitus type: type 2 Diabetes mellitus terminal operations supervisor insulin use: with group home use Diabetes mellitus complication status: with kidney complications Diabetes mellitus complication detail: with chronic kidney disease Chronic kidney disease stage: stage 3 (moderate) Qualified Code(s): E11.22 - Type 2 diabetes mellitus with diabetic chronic kidney disease; N18.3 - Chronic kidney disease, stage 3 (moderate); Z79.4 - joint terminal attack controller (current) use of insulin (5) Adrenal insufficiency: Start date: 09/13/19 Start time: 14:35 Status: Chronic Assessment and plan: receiving stress dose steroids in addition to daily dose steroids, weaning down IV and is hemodynamically stable. (6) Cancer related pain: Start date: 09/13/19 Start time: 14:35 Status: Chronic Assessment and plan: stable and well controlled, continue current regimen, no changes needed. (7) History of pulmonary embolism: Start date: 09/13/19 Start time: 14:35 Status: Chronic Assessment and plan: respiratory status is stable, continue eliquis (8) History of breast cancer: Start date: 09/13/19 Start time: 14:35 Status: Chronic Assessment and plan: on letrozole (9) DVT prophylaxis: Start date: 09/13/19 Start time: 14:35 Status: Acute Assessment and plan: fully anticoagulated on eliquis (10) Discharge planning issues: Start date: 09/13/19 Start time: 14:35 Status: Acute Assessment and plan: home with no services when medically stable. case and plan discussed with Dr Hernandes who is in agreement Subjective Subjective Patient reports: other Interval history since last seen: Candace, seemed not her self today. She was sitting up in the chair upon entering the room she stared with a confused look. I asked her if she remembered me she said oh yeah I know you, however she was not as talkative as usual and appeared distant. Repeat urine culture pending and repeat blood culture. She denies CP, SOB, N/V/D. Exam Const General: cooperative, no acute distress, frail appearing and ill appearing chronically Nutritional Appearance: obese Orientation: alert, awake and oriented x3 HENMT Head: normal to inspection, normocephalic and atraumatic Resp Effort & Inspection: normal respiratory effort Auscultation: diminished lung sounds bilaterally in the lower lung sinclair Cardio Rate: regular rate Rhythm: regular rhythm GI Inspection: normal to inspection and large pannus Palpation: soft Neuro General: patient alert, patient awake and patient oriented x3 Extrem General: normal to inspection, full ROM and edema (generalized) Objective Objective Clinical Data: Abnormal lab results 09/13/19 09/13/19 Range/Units 06:17 06:17 WBC 3.72 L (4.4-10.8) k/cumm RBC 2.76 L (4.00-5.20) m/cumm Hgb 8.1 L (12.0-15.5) g/dL Hct 26.0 L (36.0-46.0) % MCHC 31.2 L (32.0-36.0) g/dL RDW 15.7 H (11.7-14.6) % BUN 19 H (7-18) mg/dL Vital Signs Temperature 36.5 C 09/13/19 07:50 Temperature Source Tympanic 09/13/19 07:50 Pulse 63 09/13/19 07:50 Pulse Rhythm Regular 09/13/19 07:12 Pulse 109 H 09/10/19 01:40 Respiratory Rate 17 09/13/19 07:50 Respiratory Effort Non-Labored 09/13/19 07:12 Respiratory Depth Normal 09/13/19 07:12 Respiratory Pattern Normal 09/13/19 07:12 Blood Pressure 121/51 L 09/13/19 07:50 Blood Pressure Mean 76 09/10/19 01:30 Blood Pressure Position Supine 09/09/19 21:54 Pulse Oximetry 98 09/13/19 07:50 Oxygen Delivery Method Nasal Cannula 09/13/19 07:50 Oxygen Flow Rate 2 09/13/19 07:50 Pain Level 9 09/13/19 11:07 Comment 09/10/19 02:15 Intake & Output 09/12/19 09/13/19 09/13/19 23:59 11:59 23:59 Intake Total 560 / 1770 440 / 440 Output Total 800 / 1400 1000 / 1000 Balance -240 / 370 -560 / -560 Weight 147.3 kg Intake: IV 200 / 430 Oral 360 / 1340 440 / 440 Output: Urine 800 / 1400 1000 / 1000 Other: Urine Color Dark Giselle Yellow Urine Appearance Clear Clear Comment 1 small blood clot noted Laboratory Results WBC 3.72 k/cumm (4.4-10.8) L 09/13/19 06:17 RBC 2.76 m/cumm (4.00-5.20) L 09/13/19 06:17 Hgb 8.1 g/dL (12.0-15.5) L 09/13/19 06:17 Hct 26.0 % (36.0-46.0) L 09/13/19 06:17 MCV 94.2 fL (80-95) 09/13/19 06:17 MCH 29.3 pg (27.0-33.0) 09/13/19 06:17 MCHC 31.2 g/dL (32.0-36.0) L 09/13/19 06:17 RDW 15.7 % (11.7-14.6) H 09/13/19 06:17 Plt Count 232 x1000/uL (130-400) 09/13/19 06:17 MPV 9.1 fL (8.0-11.0) 09/13/19 06:17 Immature Gran % 0.8 % 09/13/19 06:17 Neutrophils % 53.8 09/13/19 06:17 Lymphocytes % 38.7 09/13/19 06:17 Monocytes % 5.6 09/13/19 06:17 Eosinophils % 1.1 09/13/19 06:17 Basophils % 0.0 09/13/19 06:17 Absolute Neutrophils 2.00 k/cumm (1.2-6.7) 09/13/19 06:17 Absolute Lymphocytes 1.44 k/cumm (1.2-3.4) 09/13/19 06:17 Absolute Monocytes 0.21 k/cumm (0.11-0.7) 09/13/19 06:17 Absolute Eosinophils 0.04 k/cumm (0.0-0.7) 09/13/19 06:17 Absolute Basophils 0.00 k/cumm (0.0-0.2) 09/13/19 06:17 Differential Comment Rbc morph reviewed 09/13/19 06:17 RBC Morphology See below 09/13/19 06:17 Polychromasia Present 09/13/19 06:17 Anisocytosis 1+ 09/13/19 06:17 Sodium 138 mmol/L (136-145) 09/13/19 06:17 Potassium 4.1 mmol/L (3.5-5.1) 09/13/19 06:17 Chloride 101 mmol/L (98-107) 09/13/19 06:17 Carbon Dioxide 30.5 mmol/L (21.0-32.0) 09/13/19 06:17 Anion Gap 6.5 mmol/L (3-11) 09/13/19 06:17 BUN 19 mg/dL (7-18) H 09/13/19 06:17 Creatinine 1.01 mg/dL (0.55-1.02) 09/13/19 06:17 Estimated GFR/1.73 m2 55.91 (mL/min/1.73m2) 09/13/19 06:17 Glucose 90 mg/dL (74-106) 09/13/19 06:17 Lactate 1.1 mmol/L (0.6-1.4) 09/11/19 08:38 Calcium 8.9 mg/dL (8.5-10.1) 09/13/19 06:17 Magnesium 2.0 mg/dL (1.8-2.4) 09/11/19 08:38 Total Bilirubin 0.4 mg/dL (0.2-1.0) 09/09/19 22:46 AST 58 U/L (15-37) H 09/09/19 22:46 ALT 29 U/L (14-59) 09/09/19 22:46 Alkaline Phosphatase 239 U/L (46-116) H 09/09/19 22:46 Troponin I < 0.05 ng/mL (<0.06) 09/10/19 01:35 Total Protein 8.4 g/dL (6.4-8.2) H 09/09/19 22:46 Albumin 3.1 g/dL (3.4-5.0) L 09/09/19 22:46 Urine Color [place] (Yellow) 09/12/19 09:30 Urine Clarity Sl cloudy (Clear) 09/12/19 09:30 Urine pH 6.0 (5-8) 09/12/19 09:30 Ur Specific [place] 1.020 (1.005-1.025) 09/12/19 09:30 Urine Protein 30 mg/dL (Negative) H 09/12/19 09:30 Urine Ketones Trace mg/dL (Negative) H 09/12/19 09:30 Urine Blood Large (Negative) H 09/12/19 09:30 Urine Nitrite Negative (Negative) 09/12/19 09:30 Urine Bilirubin Negative (Negative) 09/12/19 09:30 Urine Urobilinogen 0.2 EU/dL (Up TO 0.2) 09/12/19 09:30 Ur Leukocyte Esterase Negative (Negative) 09/12/19 09:30 Urine RBC >50 HPF (0-2) H 09/12/19 09:30 Urine WBC Not Applicable 09/12/19 09:30 Ur Epithelial Cells Few HPF (Negative) 09/12/19 09:30 Urine Crystals Not Applicable 09/12/19 09:30 Urine Bacteria Not Applicable 09/12/19 09:30 Urine Casts Negative LPF (Negative) 09/09/19 23:10 Urine Mucus Not Applicable 09/12/19 09:30 Urine Other Moderate renal (Negative) 09/12/19 09:30 Ur Culture Indicated? No 09/12/19 09:30 Urine Glucose Negative mg/dL (Negative) 09/12/19 09:30 COVID-19 PCR Negative (Negative) 09/10/19 00:08 Nasopharyn COVID-19 PCR Not Applicable 09/10/19 00:08 Ref Test Perform Site Pending sale to [facility] lab 09/10/19 00:08
--- NOTE | 2019-09-13 13:17 | CHAPLAIN ---
Candace was sitting up in the recliner, having a conversation with her nurse and showing photos of her dogs, when I visited. She said her back has been hurting, but medication is keeping in under control. Although she's allowed a visitor, Candace said she doesn't want her daughter Kiki, who is her caregiver, to come into the hospital, until it's time for Candace to be discharged. I will continue to visit.
[2019-09-13 15:10] VITALS: BP 123/71; PULSE 76; RESP 16; TEMP 36.6; O2SAT 93
[2019-09-13] MEDS: Hydrocortisone 10 MG TAB 5 MG PO (15:59)
[2019-09-13 19:30] VITALS: BP 137/81; PULSE 69; RESP 18; TEMP 35.9; O2SAT 99
[2019-09-13] MEDS: DULoxetine 30 MG CAP 60 MG PO (21:38)
[2019-09-14] MEDS: Vancomycin 125 MG CAP PO ×5 (00:06→23:28)
[2019-09-14] MEDS: Normal Saline Flush 10 ML SYR IVP ×5 (00:06→23:28)
[2019-09-14] MEDS: IMIPENEM/CILASTATIN 500 MG in Normal Saline 100 ML 200 MG IVPB ×4 (00:06→23:29)
[2019-09-14] MEDS: Levothyroxine 150 MCG TAB PO (06:12)
[2019-09-14] MEDS: HYDROcodone 5/Acetaminophen 325 TAB PO ×3 (06:55→22:39)
[2019-09-14 06:59] LABS: Abs Immature Grans 0.04 k/cumm (0.0-0.09); Absolute Basophil Count 0.01 k/cumm (0.0-0.2); Absolute Eosinophil Count 0.09 k/cumm (0.0-0.7); Absolute Lymphocyte Count 1.73 k/cumm (1.2-3.4); Absolute Monocyte Count 0.35 k/cumm (0.11-0.7); Absolute Neutrophil Count 2.25 k/cumm (1.2-6.7); Basophils % 0.2; HCT 27.6 % (36.0-46.0); HGB 8.6 g/dL (12.0-15.5); Immature Grans % 0.9 %; Lymphocytes % 38.7; Mean Corp. HGB Concentration 31.2 g/dL (32.0-36.0); Mean Corpuscular Hemoglobin 29.3 pg (27.0-33.0); Mean Corpuscular Volume 93.9 fL (80-95); Mean Platelet Volume 8.9 fL (8.0-11.0); Monocytes % 7.8; Neutrophils % 50.4; Platelet Count 263 x1000/uL (130-400); RBC 2.94 m/cumm (4.00-5.20); RBC Distribution Width 15.7 % (11.7-14.6); White Blood Cell Count 4.47 k/cumm (4.4-10.8)
[2019-09-14 07:20] LABS: Anion Gap 7.3 mmol/L (3-11); BUN 21 mg/dL (7-18); CO2 30.7 mmol/L (21.0-32.0); CREATININE 1.03 mg/dL (0.55-1.02); Calcium 8.8 mg/dL (8.5-10.1); Chloride 101 mmol/L (98-107); Estimated GFR 54.66 (mL/min/1.73m2); Glucose 90 mg/dL (74-106); Sodium 139 mmol/L (136-145)
[2019-09-14] MEDS: Omeprazole 20 MG CAPCR 40 MG PO (07:23)
[2019-09-14] MEDS: Budesonide/Formoterol 160/4.5 6 GM 60 PUFF INH IH ×2 (07:56→19:55)
[2019-09-14] MEDS: Tiotropium Bromide-Respimat 10 PUFF INH IH (07:56)
[2019-09-14 07:57] VITALS: O2SAT 94
[2019-09-14 08:13] VITALS: BP 133/78; PULSE 66; RESP 16; TEMP 36.4; O2SAT 96
[2019-09-14] MEDS: Hydrocortisone SOD SUC. 100 MG VIAL 50 MG IVP (09:02)
[2019-09-14] MEDS: Apixaban 5 MG TAB PO ×2 (09:03→19:56)
[2019-09-14] MEDS: Pregabalin 100 MG CAP 200 MG PO ×3 (09:03→19:56)
[2019-09-14] MEDS: Oxybutynin 5 MG TAB PO ×3 (09:04→19:56)
[2019-09-14] MEDS: carBAMazepine 200 MG TAB PO ×2 (09:04→19:56)
[2019-09-14] MEDS: Ferrous Sulfate 325 MG TAB PO (09:04)
[2019-09-14] MEDS: Cyanocobalamin 500 MCG TAB 1000 MCG PO (09:04)
[2019-09-14] MEDS: Folic Acid 1 MG TAB PO (09:04)
[2019-09-14] MEDS: Loratidine 10 MG TAB PO (09:05)
[2019-09-14] MEDS: Montelukast 10 MG TAB PO (09:05)
--- NOTE | 2019-09-14 12:17 | PGE_ITS ---
Date of Service Date of service: 09/14/19 Time of Service: 12:18 Assessment and Plan Assessment and plan (1) Positive blood cultures: Status: Acute Assessment and plan: possible contaminant, no antibiotic change she continues to improve. (2) UTI (urinary tract infection): Status: Acute Assessment and plan: imipenem day 07/10 ID and sensitivities show citrobacter freundii sensitive to imipenem. will discontinue catheter today, she does not have chronic catheter. (3) Recurrent Clostridium difficile diarrhea: Status: Acute Assessment and plan: stable at this time, will continue prophylactic vancomycin and continue to monitor. last admission infection cleared with dificid as recommended by GI at [facility]. her PCR was negative. she has been considered for stool transplant and should she have another cdiff infection she needs to follow up with them. (4) Diabetes mellitus: Status: Chronic Assessment and plan: blood sugars better controlled at 95-117 today. will continue diabetic diet, current insulin regimen with sliding scale coverage as needed. continue to monitor and adjust as needed. she is now on her home dosing. 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 weaning steroids. (6) Cancer related pain: Status: Chronic Assessment and plan: stable and well controlled, continue current regimen, no changes needed. (7) History of pulmonary embolism: Status: Chronic Assessment and plan: respiratory status is stable, continue eliquis (8) Hypothyroidism: Status: Chronic Assessment and plan: TSH 0.15 in august 2019. will continue current dose, defer changes to outpatient team (9) History of breast cancer: Status: Chronic Assessment and plan: on letrozole (10) DVT prophylaxis: Status: Acute Assessment and plan: fully anticoagulated on eliquis (11) Discharge planning issues: Status: Acute Assessment and plan: home with no services when medically stable. case and plan discussed with Dr Hernandes who is in agreement Subjective Subjective Patient reports: no new complaints, feels better, tolerating liquids well, tolerating a regular diet and afebrile; denies diarrhea Exam Const General: cooperative, no acute distress, frail appearing and ill appearing chronically Nutritional Appearance: obese Orientation: alert, awake and oriented x3 HENMT Head: normal to inspection, normocephalic and atraumatic Resp Effort & Inspection: normal respiratory effort Auscultation: diminished lung sounds bilaterally in the lower lung sinclair Cardio Rate: regular rate Rhythm: regular rhythm GI Inspection: normal to inspection and large pannus Palpation: soft Neuro General: patient alert, patient awake and patient oriented x3 Extrem General: normal to inspection, full ROM and edema (generalized) Objective Objective Clinical Data: Abnormal lab results 09/14/19 09/14/19 Range/Units 06:30 06:30 RBC 2.94 L (4.00-5.20) m/cumm Hgb 8.6 L (12.0-15.5) g/dL Hct 27.6 L (36.0-46.0) % MCHC 31.2 L (32.0-36.0) g/dL RDW 15.7 H (11.7-14.6) % BUN 21 H (7-18) mg/dL Creatinine 1.03 H (0.55-1.02) mg/dL Vital Signs Temperature 36.4 C L 09/14/19 08:13 Temperature Source Tympanic 09/14/19 08:13 Pulse 66 09/14/19 08:13 Pulse Rhythm Regular 09/14/19 07:20 Pulse 109 H 09/10/19 01:40 Respiratory Rate 16 09/14/19 08:13 Respiratory Effort Non-Labored 09/14/19 07:20 Respiratory Depth Normal 09/14/19 07:20 Respiratory Pattern Normal 09/14/19 07:20 Blood Pressure 133/78 09/14/19 08:13 Blood Pressure Mean 76 09/10/19 01:30 Blood Pressure Position Supine 09/09/19 21:54 Pulse Oximetry 96 09/14/19 08:13 Oxygen Delivery Method Room Air 09/14/19 08:13 Oxygen Flow Rate 0 09/14/19 08:13 Pain Level 9 09/14/19 08:13 Comment 09/10/19 02:15 Intake & Output 09/13/19 09/14/19 09/14/19 23:59 11:59 23:59 Intake Total 610 / 1150 340 / 340 Output Total / 1949 2374 / 237 Balance 310 / -800 -2034 / -2034 Weight 146.5 kg Intake: IV 130 / 230 100 / 100 Oral 480 / 920 240 / 240 Output: Urine 300 / 1949 2374 / 2374 Other: Urine Color Yellow Yellow Urine Appearance Clear Clear Stool Size Large Large Stool Characteristics Formed Soft Brown Brown Black Laboratory Results WBC 4.47 k/cumm (4.4-10.8) 09/14/19 06:30 RBC 2.94 m/cumm (4.00-5.20) L 09/14/19 06:30 Hgb 8.6 g/dL (12.0-15.5) L 09/14/19 06:30 Hct 27.6 % (36.0-46.0) L 09/14/19 06:30 MCV 93.9 fL (80-95) 09/14/19 06:30 MCH 29.3 pg (27.0-33.0) 09/14/19 06:30 MCHC 31.2 g/dL (32.0-36.0) L 09/14/19 06:30 RDW 15.7 % (11.7-14.6) H 09/14/19 06:30 Plt Count 263 x1000/uL (130-400) 09/14/19 06:30 MPV 8.9 fL (8.0-11.0) 09/14/19 06:30 Immature Gran % 0.9 % 09/14/19 06:30 Neutrophils % 50.4 09/14/19 06:30 Lymphocytes % 38.7 09/14/19 06:30 Monocytes % 7.8 09/14/19 06:30 Eosinophils % 2.0 09/14/19 06:30 Basophils % 0.2 09/14/19 06:30 Absolute Neutrophils 2.25 k/cumm (1.2-6.7) 09/14/19 06:30 Absolute Lymphocytes 1.73 k/cumm (1.2-3.4) 09/14/19 06:30 Absolute Monocytes 0.35 k/cumm (0.11-0.7) 09/14/19 06:30 Absolute Eosinophils 0.09 k/cumm (0.0-0.7) 09/14/19 06:30 Absolute Basophils 0.01 k/cumm (0.0-0.2) 09/14/19 06:30 Differential Comment Rbc morph reviewed 09/13/19 06:17 RBC Morphology See below 09/13/19 06:17 Polychromasia Present 09/13/19 06:17 Anisocytosis 1+ 09/13/19 06:17 Sodium 139 mmol/L (136-145) 09/14/19 06:30 Potassium 4.0 mmol/L (3.5-5.1) 09/14/19 06:30 Chloride 101 mmol/L (98-107) 09/14/19 06:30 Carbon Dioxide 30.7 mmol/L (21.0-32.0) 09/14/19 06:30 Anion Gap 7.3 mmol/L (3-11) 09/14/19 06:30 BUN 21 mg/dL (7-18) H 09/14/19 06:30 Creatinine 1.03 mg/dL (0.55-1.02) H 09/14/19 06:30 Estimated GFR/1.73 m2 54.66 (mL/min/1.73m2) 09/14/19 06:30 Glucose 90 mg/dL (74-106) 09/14/19 06:30 Lactate 1.1 mmol/L (0.6-1.4) 09/11/19 08:38 Calcium 8.8 mg/dL (8.5-10.1) 09/14/19 06:30 Magnesium 2.0 mg/dL (1.8-2.4) 09/11/19 08:38 Total Bilirubin 0.4 mg/dL (0.2-1.0) 09/09/19 22:46 AST 58 U/L (15-37) H 09/09/19 22:46 ALT 29 U/L (14-59) 09/09/19 22:46 Alkaline Phosphatase 239 U/L (46-116) H 09/09/19 22:46 Troponin I < 0.05 ng/mL (<0.06) 09/10/19 01:35 Total Protein 8.4 g/dL (6.4-8.2) H 09/09/19 22:46 Albumin 3.1 g/dL (3.4-5.0) L 09/09/19 22:46 Urine Color [place] (Yellow) 09/12/19 09:30 Urine Clarity Sl cloudy (Clear) 09/12/19 09:30 Urine pH 6.0 (5-8) 09/12/19 09:30 Ur Specific [place] 1.020 (1.005-1.025) 09/12/19 09:30 Urine Protein 30 mg/dL (Negative) H 09/12/19 09:30 Urine Ketones Trace mg/dL (Negative) H 09/12/19 09:30 Urine Blood Large (Negative) H 09/12/19 09:30 Urine Nitrite Negative (Negative) 09/12/19 09:30 Urine Bilirubin Negative (Negative) 09/12/19 09:30 Urine Urobilinogen 0.2 EU/dL (Up TO 0.2) 09/12/19 09:30 Ur Leukocyte Esterase Negative (Negative) 09/12/19 09:30 Urine RBC >50 HPF (0-2) H 09/12/19 09:30 Urine WBC Not Applicable 09/12/19 09:30 Ur Epithelial Cells Few HPF (Negative) 09/12/19 09:30 Urine Crystals Not Applicable 09/12/19 09:30 Urine Bacteria Not Applicable 09/12/19 09:30 Urine Casts Negative LPF (Negative) 09/09/19 23:10 Urine Mucus Not Applicable 09/12/19 09:30 Urine Other Moderate renal (Negative) 09/12/19 09:30 Ur Culture Indicated? No 09/12/19 09:30 Urine Glucose Negative mg/dL (Negative) 09/12/19 09:30 COVID-19 PCR Negative (Negative) 09/10/19 00:08 Nasopharyn COVID-19 PCR Not Applicable 09/10/19 00:08 Ref Test Perform Site [facility] 09/10/19 00:08
--- NOTE | 2019-09-14 12:22 | CMPROGNOTE_ITS ---
<Lauren Wilkerson - Last Filed: 09/14/19 12:22> - If Service Date Differs Date of service: 09/14/19 Time of Service: 12:22 Care Management Progress Note S/O: Candace was sitting up in a chair when CM met with her. She stated that she is having a lot of pain in her right hip and leg, which is from metastatic disease according to Candace. She also stated that she sees a physician in [place] who plans to inject the hip with steroids. Awaiting final results of urine and blood cultures; they are negative at 24 hours. If they remain negative, Candace will likely discharge home tomorrow. A: Candace is a 59 year old female admitted to [facility] on 09/10/19 with UTI. P: Anticipate Candace will return home with a resumption of HH services once she is medically ready for discharge. Her HH is through [facility], CM will send discharge summary once it is available. Her daughter, Kiki, is identified as her support person/visitor for this admission. Kiki will drive her home via private vehicle when ready. CM will continue to follow and support discharge planning considerations. <Adriana Pichardo - Last Filed: 09/14/19 14:42> Care Management Progress Note Jazz, [facility] called to inquire as to the plan for Candace as her recurrent UTIs have resulted in multiple admissions. Jazz shared concerns for the possibility of Candace becoming septic and was hopeful an intervention was being considered. CM reviewed MD notes with Jazz including Dr. Camargo's consultation and agreed to keep Jazz updated with discharge planning considerations. Appears Candace will follow up with [facility].
--- NOTE | 2019-09-14 12:27 | PT.INTREAT ---
Date of service: 09/14/19 Time of Service: 12:27 PT Notes Visit Reasons: UTI WITH SYSTEMIC INFLAMMATORY RESPONSE Inpatient Physical Therapy Treatment Note [facility] Date: 09/14/19 PRECAUTIONS: Fall, activity as tolerated SUBJECTIVE: Candace reports that her right lower extremity is really painful this morning. OBJECTIVE: PAIN: Patient c/o R LE pain at rest and with ther ex BED MOBILITY/TRANSFERS: Refused in a.m. due to R LE pain GAIT: Refused in a.m. due to R LE pain THEREX: Patient completed a LE strengthening and resisted UE strengthening program, in a seated position, as per flow sheet. ASSESSMENT: Patient tolerated session with continued c/o R LE pain with ther ex. Patient would benefit from continued global strengthening for improved mobility. PLAN: Continue with PT's POC TREATMENT CODE/TIME: 25 minutes; 30391 x2
--- NOTE | 2019-09-14 12:57 | NT_ITS ---
Date of service: 09/14/19 Time of Service: 12:58 PT Notes Visit Reasons: UTI WITH SYSTEMIC INFLAMMATORY RESPONSE 09/14/19 Patient refused PT services this afternoon, due to continued R LE pain. She reports that her pain increased following morning PT session. Will attempt to resume PT services tomorrow morning. Trudy Freeman, PLEATING SUPERVISOR
[2019-09-14] MEDS: Hydrocortisone 10 MG TAB 5 MG PO (15:48)
[2019-09-14 16:01] VITALS: BP 126/76; PULSE 60; RESP 17; TEMP 36.7; O2SAT 94
[2019-09-14] MEDS: DULoxetine 30 MG CAP 60 MG PO (21:22)
[2019-09-14 22:33] VITALS: BP 95/61; PULSE 68; RESP 19; TEMP 35.9; O2SAT 99
[2019-09-15] MEDS: Vancomycin 125 MG CAP PO ×4 (06:22→23:25)
[2019-09-15] MEDS: Levothyroxine 150 MCG TAB PO (06:22)
[2019-09-15 06:31] VITALS: BP 112/70; PULSE 65; RESP 16; TEMP 36.3; O2SAT 92
[2019-09-15] MEDS: HYDROcodone 5/Acetaminophen 325 TAB PO ×4 (06:39→23:25)
[2019-09-15 07:23] LABS: Abs Immature Grans 0.04 k/cumm (0.0-0.09); Absolute Basophil Count 0.01 k/cumm (0.0-0.2); Absolute Lymphocyte Count 1.66 k/cumm (1.2-3.4); Absolute Monocyte Count 0.34 k/cumm (0.11-0.7); Basophils % 0.2; Eosinophils % 1.8; HCT 28.5 % (36.0-46.0); HGB 8.6 g/dL (12.0-15.5); Immature Grans % 0.7 %; Lymphocytes % 30.5; Mean Corp. HGB Concentration 30.2 g/dL (32.0-36.0); Mean Corpuscular Hemoglobin 28.5 pg (27.0-33.0); Mean Corpuscular Volume 94.4 fL (80-95); Mean Platelet Volume 8.9 fL (8.0-11.0); Monocytes % 6.2; Neutrophils % 60.6; Platelet Count 260 x1000/uL (130-400); RBC 3.02 m/cumm (4.00-5.20); White Blood Cell Count 5.45 k/cumm (4.4-10.8)
[2019-09-15 07:27] LABS: Anion Gap 8.8 mmol/L (3-11); BUN 22 mg/dL (7-18); CO2 29.2 mmol/L (21.0-32.0); CREATININE 1.17 mg/dL (0.55-1.02); Calcium 8.5 mg/dL (8.5-10.1); Chloride 100 mmol/L (98-107); Estimated GFR 47.18 (mL/min/1.73m2); Glucose 84 mg/dL (74-106); Potassium 3.9 mmol/L (3.5-5.1); Sodium 138 mmol/L (136-145)
[2019-09-15 07:29] VITALS: BP 100/63; PULSE 61; RESP 17; TEMP 36.7; O2SAT 92
[2019-09-15] MEDS: Budesonide/Formoterol 160/4.5 6 GM 60 PUFF INH IH ×2 (07:48→19:47)
[2019-09-15 07:49] LABS: Anisocytosis 1+; Diff Comment RBC Morph Reviewed; Poikilocytes 1+; Polychromasia Present
[2019-09-15] MEDS: Tiotropium Bromide-Respimat 10 PUFF INH IH (07:49)
[2019-09-15] MEDS: Folic Acid 1 MG TAB PO (08:30)
[2019-09-15] MEDS: Cyanocobalamin 500 MCG TAB 1000 MCG PO (08:30)
[2019-09-15] MEDS: Apixaban 5 MG TAB PO ×2 (08:30→19:46)
[2019-09-15] MEDS: carBAMazepine 200 MG TAB PO ×2 (08:31→19:46)
[2019-09-15] MEDS: Ferrous Sulfate 325 MG TAB PO (08:31)
[2019-09-15] MEDS: Loratidine 10 MG TAB PO (08:31)
[2019-09-15] MEDS: Oxybutynin 5 MG TAB PO ×3 (08:31→19:46)
[2019-09-15] MEDS: Omeprazole 20 MG CAPCR 40 MG PO (08:32)
[2019-09-15] MEDS: Hydrocortisone 10 MG TAB 20 MG PO (08:32)
[2019-09-15] MEDS: Pregabalin 100 MG CAP 200 MG PO ×3 (08:33→19:46)
[2019-09-15] MEDS: Montelukast 10 MG TAB PO (08:33)
[2019-09-15] MEDS: fentaNYL 50 MCG PATCH TD (08:40)
[2019-09-15] MEDS: Normal Saline Flush 10 ML SYR IVP ×2 (08:45→17:11)
[2019-09-15] MEDS: IMIPENEM/CILASTATIN 500 MG in Normal Saline 100 ML 200 MG IVPB ×3 (08:46→23:26)
--- NOTE | 2019-09-15 09:43 | W.PM.PROGNOT ---
Date of Service Date of service: 09/15/19 Time of Service: 09:43 Assessment and Plan Assessment and plan (1) Positive blood cultures: Status: Acute Assessment and plan: possible contaminant, no antibiotic change she continues to improve. (2) UTI (urinary tract infection): Status: Acute Assessment and plan: imipenem day 08/10 ID and sensitivities show citrobacter freundii sensitive to imipenem. catheter discontinue yesterday, will repeat UA tomorrow morning, she does not have chronic catheter. (3) Recurrent Clostridium difficile diarrhea: Status: Acute Assessment and plan: stable at this time, will continue prophylactic vancomycin and continue to monitor. last admission infection cleared with dificid as recommended by GI at [facility] [place]. her PCR was negative. she has been considered for stool transplant and should she have another cdiff infection she needs to follow up with them. (4) Diabetes mellitus: Status: Chronic Assessment and plan: blood sugars low at 53. will continue diabetic diet, decreased insulin regimen with sliding scale coverage as needed. continue to monitor and adjust as needed. 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 weaning steroids. (6) Cancer related pain: Status: Chronic Assessment and plan: stable and well controlled, continue current regimen, no changes needed. (7) History of pulmonary embolism: Status: Chronic Assessment and plan: respiratory status is stable, continue eliquis (8) Hypothyroidism: Status: Chronic Assessment and plan: TSH 0.15 in august 2019. will continue current dose, defer changes to outpatient team (9) History of breast cancer: Status: Chronic Assessment and plan: on letrozole (10) DVT prophylaxis: Status: Acute Assessment and plan: fully anticoagulated on eliquis (11) Discharge planning issues: Status: Acute Assessment and plan: home with no services when medically stable. case and plan discussed with Dr Hernandes who is in agreement Subjective Subjective Patient reports: no new complaints, feels better, tolerating liquids well, tolerating a regular diet and afebrile; denies diarrhea Interval history since last seen: low blood sugars overnight, down to 53 Exam Const General: cooperative, no acute distress, frail appearing and ill appearing chronically Nutritional Appearance: obese Orientation: alert, awake and oriented x3 HENMT Head: normal to inspection, normocephalic and atraumatic Resp Effort & Inspection: normal respiratory effort Auscultation: diminished lung sounds bilaterally in the lower lung sinclair Cardio Rate: regular rate Rhythm: regular rhythm GI Inspection: normal to inspection and large pannus Palpation: soft Neuro General: patient alert, patient awake and patient oriented x3 Extrem General: normal to inspection, full ROM and edema (generalized) Objective Objective Clinical Data: Abnormal lab results 09/15/19 09/15/19 Range/Units 06:50 06:50 RBC 3.02 L (4.00-5.20) m/cumm Hgb 8.6 L (12.0-15.5) g/dL Hct 28.5 L (36.0-46.0) % MCHC 30.2 L (32.0-36.0) g/dL RDW 16.0 H (11.7-14.6) % BUN 22 H (7-18) mg/dL Creatinine 1.17 H (0.55-1.02) mg/dL Vital Signs Temperature 36.7 C 09/15/19 07:29 Temperature Source Tympanic 09/15/19 07:29 Pulse 61 09/15/19 07:29 Pulse Rhythm Regular 09/15/19 06:15 Pulse 109 H 09/10/19 01:40 Respiratory Rate 17 09/15/19 07:29 Respiratory Effort 09/15/19 06:15 Respiratory Depth Normal 09/15/19 06:15 Respiratory Pattern Normal 09/15/19 06:15 Blood Pressure 100/63 09/15/19 07:29 Blood Pressure Mean 76 09/10/19 01:30 Blood Pressure Position Supine 09/09/19 21:54 Pulse Oximetry 92 L 09/15/19 07:29 Oxygen Delivery Method Room Air 09/15/19 07:29 Oxygen Flow Rate 0 09/15/19 07:29 Pain Level 5 09/15/19 07:39 Comment 09/14/19 22:33 Intake & Output 09/14/19 09/14/19 09/15/19 11:59 23:59 11:59 Intake Total 440 / 1360 920 / 1360 250 / 250 Output Total 2375 / 3175 800 / 3175 Balance -1935 / -1815 120 / -1815 250 / 250 Weight 146.5 kg 146.6 kg Intake: IV 200 / 400 200 / 400 Oral 240 / 960 720 / 960 250 / 250 Output: Urine 2375 / 2675 300 / 2675 Stool 500 / 500 Other: Urine Color Yellow Yellow Urine Appearance Clear Clear Clear Urine Odor Normal Comment alex removed per order Grossly incontinent. Stool Size Large Moderate Moderate Stool Characteristics Soft Liquid Liquid Brown Brown Brown Black Voiding Methods Bedside Commode Incontinent Laboratory Results WBC 5.45 k/cumm (4.4-10.8) 09/15/19 06:50 RBC 3.02 m/cumm (4.00-5.20) L 09/15/19 06:50 Hgb 8.6 g/dL (12.0-15.5) L 09/15/19 06:50 Hct 28.5 % (36.0-46.0) L 09/15/19 06:50 MCV 94.4 fL (80-95) 09/15/19 06:50 MCH 28.5 pg (27.0-33.0) 09/15/19 06:50 MCHC 30.2 g/dL (32.0-36.0) L 09/15/19 06:50 RDW 16.0 % (11.7-14.6) H 09/15/19 06:50 Plt Count 260 x1000/uL (130-400) 09/15/19 06:50 MPV 8.9 fL (8.0-11.0) 09/15/19 06:50 Immature Gran % 0.7 % 09/15/19 06:50 Neutrophils % 60.6 09/15/19 06:50 Lymphocytes % 30.5 09/15/19 06:50 Monocytes % 6.2 09/15/19 06:50 Eosinophils % 1.8 09/15/19 06:50 Basophils % 0.2 09/15/19 06:50 Absolute Neutrophils 3.30 k/cumm (1.2-6.7) 09/15/19 06:50 Absolute Lymphocytes 1.66 k/cumm (1.2-3.4) 09/15/19 06:50 Absolute Monocytes 0.34 k/cumm (0.11-0.7) 09/15/19 06:50 Absolute Eosinophils 0.10 k/cumm (0.0-0.7) 09/15/19 06:50 Absolute Basophils 0.01 k/cumm (0.0-0.2) 09/15/19 06:50 Differential Comment Rbc morph reviewed 09/15/19 06:50 RBC Morphology See below 09/15/19 06:50 Polychromasia Present 09/15/19 06:50 Poikilocytosis 1+ 09/15/19 06:50 Anisocytosis 1+ 09/15/19 06:50 Sodium 138 mmol/L (136-145) 09/15/19 06:50 Potassium 3.9 mmol/L (3.5-5.1) 09/15/19 06:50 Chloride 100 mmol/L (98-107) 09/15/19 06:50 Carbon Dioxide 29.2 mmol/L (21.0-32.0) 09/15/19 06:50 Anion Gap 8.8 mmol/L (3-11) 09/15/19 06:50 BUN 22 mg/dL (7-18) H 09/15/19 06:50 Creatinine 1.17 mg/dL (0.55-1.02) H 09/15/19 06:50 Estimated GFR/1.73 m2 47.18 (mL/min/1.73m2) 09/15/19 06:50 Glucose 84 mg/dL (74-106) 09/15/19 06:50 Lactate 1.1 mmol/L (0.6-1.4) 09/11/19 08:38 Calcium 8.5 mg/dL (8.5-10.1) 09/15/19 06:50 Magnesium 2.0 mg/dL (1.8-2.4) 09/11/19 08:38 Total Bilirubin 0.4 mg/dL (0.2-1.0) 09/09/19 22:46 AST 58 U/L (15-37) H 09/09/19 22:46 ALT 29 U/L (14-59) 09/09/19 22:46 Alkaline Phosphatase 239 U/L (46-116) H 09/09/19 22:46 Troponin I < 0.05 ng/mL (<0.06) 09/10/19 01:35 Total Protein 8.4 g/dL (6.4-8.2) H 09/09/19 22:46 Albumin 3.1 g/dL (3.4-5.0) L 09/09/19 22:46 Urine Color [place] (Yellow) 09/12/19 09:30 Urine Clarity Sl cloudy (Clear) 09/12/19 09:30 Urine pH 6.0 (5-8) 09/12/19 09:30 Ur Specific [place] 1.020 (1.005-1.025) 09/12/19 09:30 Urine Protein 30 mg/dL (Negative) H 09/12/19 09:30 Urine Ketones Trace mg/dL (Negative) H 09/12/19 09:30 Urine Blood Large (Negative) H 09/12/19 09:30 Urine Nitrite Negative (Negative) 09/12/19 09:30 Urine Bilirubin Negative (Negative) 09/12/19 09:30 Urine Urobilinogen 0.2 EU/dL (Up TO 0.2) 09/12/19 09:30 Ur Leukocyte Esterase Negative (Negative) 09/12/19 09:30 Urine RBC >50 HPF (0-2) H 09/12/19 09:30 Urine WBC Not Applicable 09/12/19 09:30 Ur Epithelial Cells Few HPF (Negative) 09/12/19 09:30 Urine Crystals Not Applicable 09/12/19 09:30 Urine Bacteria Not Applicable 09/12/19 09:30 Urine Casts Negative LPF (Negative) 09/09/19 23:10 Urine Mucus Not Applicable 09/12/19 09:30 Urine Other Moderate renal (Negative) 09/12/19 09:30 Ur Culture Indicated? No 09/12/19 09:30 Urine Glucose Negative mg/dL (Negative) 09/12/19 09:30 COVID-19 PCR Negative (Negative) 09/10/19 00:08 Nasopharyn COVID-19 PCR Not Applicable 09/10/19 00:08 Ref Test Perform Site [place] [facility] 09/10/19 00:08
--- NOTE | 2019-09-15 12:36 | PT.INTREAT ---
Date of service: 09/15/19 Time of Service: 12:37 PT Notes Visit Reasons: UTI WITH SYSTEMIC INFLAMMATORY RESPONSE Inpatient Physical Therapy Treatment Note [facility] Date: 09/15/19 PRECAUTIONS: Fall, activity as tolerated SUBJECTIVE: Candace reports that her R LE is still very painful and she doesn't want to take a walk. OBJECTIVE: PAIN: Patient c/o R LE pain at rest, worsening with ther ex BED MOBILITY/TRANSFERS: Refused due to R LE pain GAIT: Refused due to R LE pain THEREX: Patient completed a LE strengthening and resisted UE strengthening program, in a seated position, as per flow sheet. ASSESSMENT: Patient tolerated session with c/o increased R LE pain with ther ex. Patient would benefit from continued global strengthening for improved mobility. PLAN: Continue with PT's POC TREATMENT CODE/TIME: 20 minutes; [id number]
--- NOTE | 2019-09-15 15:28 | NT_ITS ---
Date of service: 09/15/19 Time of Service: 15:28 PT Notes Visit Reasons: UTI WITH SYSTEMIC INFLAMMATORY RESPONSE 09/15/19 Patient refused PT services this afternoon, due to significant R LE pain. Will attempt to resume PT services tomorrow morning. Trudy Freeman, PAPER MACHINE OPERATOR
[2019-09-15 15:36] VITALS: BP 107/69; PULSE 63; RESP 18; TEMP 36.7; O2SAT 95
--- NOTE | 2019-09-15 16:07 | CMPROGNOTE_ITS ---
- If Service Date Differs Date of service: 09/15/19 Time of Service: 16:07 Care Management Progress Note S/O: Candace was sitting up in her chair when CM met with her. She stated that she was doing ok, but that she has been having low blood sugars, which don't make her feel well. Per report, she continues to improve. CM will continue to follow. A: Candace is a 59 year old female admitted to [facility] on 09/10/19 with UTI. P: Anticipate Candace will return home with a resumption of HH services once she is medically ready for discharge. Her HH is through [facility], CM will send discharge summary once it is available. Her daughter, Kiki, is identified as her support person/visitor for this admission. Kiki will drive her home via private vehicle when ready. CM will continue to follow and support discharge planning considerations.
--- NOTE | 2019-09-15 16:19 | CHAPLAIN ---
Candace was sitting in her chair when I visited. She said low blood sugar levels have kept her here, but she may be able to go home tomorrow. She was tired today. We talked about her dogs and her children. Candace said she takes things as they come, and had learned to be patient.
[2019-09-15] MEDS: Hydrocortisone 10 MG TAB 5 MG PO (17:06)
[2019-09-15 19:35] VITALS: BP 118/73; PULSE 74; RESP 20; TEMP 36.7; O2SAT 95
[2019-09-15] MEDS: DULoxetine 30 MG CAP 60 MG PO (23:25)
[2019-09-16 03:47] VITALS: BP 116/72; PULSE 71; RESP 17; TEMP 36; O2SAT 99
[2019-09-16] MEDS: Levothyroxine 150 MCG TAB PO (05:11)
[2019-09-16] MEDS: HYDROcodone 5/Acetaminophen 325 TAB PO ×3 (05:11→20:34)
[2019-09-16] MEDS: Vancomycin 125 MG CAP PO ×4 (05:11→23:39)
[2019-09-16] MEDS: Omeprazole 20 MG CAPCR 40 MG PO (07:21)
[2019-09-16] MEDS: Loratidine 10 MG TAB PO (08:01)
[2019-09-16] MEDS: Apixaban 5 MG TAB PO ×2 (08:01→20:11)
[2019-09-16 08:02] VITALS: BP 122/75; PULSE 63; RESP 17; TEMP 36.6; O2SAT 95
[2019-09-16] MEDS: Hydrocortisone 10 MG TAB 20 MG PO (08:02)
[2019-09-16] MEDS: Montelukast 10 MG TAB PO (08:02)
[2019-09-16] MEDS: Oxybutynin 5 MG TAB PO ×3 (08:02→20:11)
[2019-09-16] MEDS: Folic Acid 1 MG TAB PO (08:03)
[2019-09-16] MEDS: carBAMazepine 200 MG TAB PO ×2 (08:03→20:12)
[2019-09-16] MEDS: Pregabalin 100 MG CAP 200 MG PO ×3 (08:03→20:12)
[2019-09-16] MEDS: Ferrous Sulfate 325 MG TAB PO (08:03)
[2019-09-16] MEDS: Normal Saline Flush 10 ML SYR IVP ×2 (08:04→15:07)
[2019-09-16] MEDS: Cyanocobalamin 500 MCG TAB 1000 MCG PO (08:04)
[2019-09-16] MEDS: IMIPENEM/CILASTATIN 500 MG in Normal Saline 100 ML 200 MG IVPB ×3 (08:12→23:39)
[2019-09-16] MEDS: Budesonide/Formoterol 160/4.5 6 GM 60 PUFF INH IH ×2 (08:20→20:12)
[2019-09-16] MEDS: Tiotropium Bromide-Respimat 10 PUFF INH IH (08:20)
[2019-09-16 08:30] LABS: Bilirubin Negative (Negative); Blood Negative (Negative); Clarity Sl Cloudy (Clear); Glucose Negative (Negative); Ketones Negative (Negative); Leukocyte Esterase Small (Negative); Nitrite Negative (Negative); Urobilinogen 0.2 EU/dL (Up TO 0.2); pH 5.5 (5-8)
[2019-09-16 08:46] LABS: Bacteria Rare HPF (Negative); Casts Negative LPF (Negative); Crystals Negative HPF (Negative); Epithelial Cells Few HPF (Negative); Mucus Trace (Negative); RBC 0-2 HPF (0-2)
[2019-09-16 08:47] LABS: C & S Indicated? Yes
--- NOTE | 2019-09-16 14:05 | PGE_ITS ---
Date of Service Date of service: 09/16/19 Time of Service: 14:05 Assessment and Plan Assessment and plan (1) Positive blood cultures: Start date: 09/16/19 Start time: 14:07 Status: Acute Assessment and plan: Unlikely a contaminant. Per Up to date more than 2 positive blood culture with Stap epi within 24 hours should be treated for 5 days with oxicillin. Started on oxicillin will repeat bc in am. Echo negative for vegetations. (2) UTI (urinary tract infection): Start date: 09/16/19 Start time: 14:09 Status: Acute Assessment and plan: imipenem day &/10 ID and sensitivities show citrobacter freundii sensitive to imipenem. catheter discontinue yesterday, will repeat UA tomorrow morning, she does not have chronic catheter. (3) Recurrent Clostridium difficile diarrhea: Start date: 09/16/19 Start time: 14:09 Status: Acute Assessment and plan: stable at this time, will continue prophylactic vanc omycin and continue to monitor. last admission infection cleared with dificid as recommended by GI at [facility]. her PCR was negative. she has been considered for stool transplant and should she have another cdiff infection she needs to follow up with them. (4) Diabetes mellitus: Start date: 09/16/19 Start time: 14:09 Status: Chronic Assessment and plan: blood sugars stable continue to monitor. 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 weaning steroids. (6) Cancer related pain: Start date: 09/16/19 Start time: 14:11 Status: Chronic Assessment and plan: stable and well controlled, continue current regimen, no changes needed. (7) History of pulmonary embolism: Start date: 09/16/19 Start time: 14:11 Status: Chronic Assessment and plan: respiratory status is stable, continue eliquis (8) Hypothyroidism: Start date: 09/16/19 Start time: 14:11 Status: Chronic Assessment and plan: TSH 0.15 in august 2019. will continue current dose, defer changes to outpatient team (9) History of breast cancer: Start date: 09/16/19 Start time: 14:11 Status: Chronic Assessment and plan: on letrozole (10) DVT prophylaxis: Start date: 09/16/19 Start time: 14:11 Status: Acute Assessment and plan: fully anticoagulated on eliquis (11) Discharge planning issues: Start date: 09/16/19 Start time: 14:11 Status: Acute Assessment and plan: home with no services when medically stable. case and plan discussed with Dr Hernandes who is in agreement Subjective Subjective Patient reports: no new complaints Interval history since last seen: Patient sitting up in the chair. No complaints. Eating and drinking ok. Exam Const General: cooperative, no acute distress, frail appearing and ill appearing chronically Nutritional Appearance: obese Orientation: alert, awake and oriented x3 HENMT Head: normal to inspection, normocephalic and atraumatic Resp Effort & Inspection: normal respiratory effort Auscultation: diminished lung sounds bilaterally in the lower lung sinclair Cardio Rate: regular rate Rhythm: regular rhythm GI Inspection: normal to inspection and large pannus Palpation: soft Neuro General: patient alert, patient awake and patient oriented x3 Extrem General: normal to inspection, full ROM and edema (generalized) Objective Objective Clinical Data: Abnormal lab results 09/16/19 Range/Units 08:09 Ur Leukocyte Esterase Small H (Negative) Vital Signs Temperature 36.6 C 09/16/19 08:02 Temperature Source Temporal Artery Scan 09/16/19 08:02 Pulse 63 09/16/19 08:02 Pulse Rhythm Regular 09/16/19 02:23 Pulse 109 H 09/10/19 01:40 Respiratory Rate 17 09/16/19 08:02 Respiratory Effort Non-Labored 09/16/19 02:23 Respiratory Depth Normal 09/16/19 02:23 Respiratory Pattern Normal 09/16/19 02:23 Blood Pressure 122/75 09/16/19 08:02 Blood Pressure Mean 76 09/10/19 01:30 Blood Pressure Position Supine 09/09/19 21:54 Pulse Oximetry 95 09/16/19 08:02 Oxygen Delivery Method Room Air 09/16/19 08:02 Oxygen Flow Rate 0 09/16/19 08:02 Pain Level 9 09/16/19 11:30 Comment 09/14/19 22:33 Intake & Output 09/15/19 09/16/19 09/16/19 23:59 11:59 23:59 Intake Total 1167 / 1517 240 / 480 240 / 480 Output Total 1100 / 1300 Balance 67 / 217 240 / 480 240 / 480 Weight 147.7 kg Intake: IV 200 / 300 Oral 967 / 1217 240 / 480 240 / 480 Output: Urine 1100 / 1300 Other: Urine Color Yellow Urine Appearance Clear Clear Voiding Methods Incontinent Laboratory Results WBC 5.45 k/cumm (4.4-10.8) 09/15/19 06:50 RBC 3.02 m/cumm (4.00-5.20) L 09/15/19 06:50 Hgb 8.6 g/dL (12.0-15.5) L 09/15/19 06:50 Hct 28.5 % (36.0-46.0) L 09/15/19 06:50 MCV 94.4 fL (80-95) 09/15/19 06:50 MCH 28.5 pg (27.0-33.0) 09/15/19 06:50 MCHC 30.2 g/dL (32.0-36.0) L 09/15/19 06:50 RDW 16.0 % (11.7-14.6) H 09/15/19 06:50 Plt Count 260 x1000/uL (130-400) 09/15/19 06:50 MPV 8.9 fL (8.0-11.0) 09/15/19 06:50 Immature Gran % 0.7 % 09/15/19 06:50 Neutrophils % 60.6 09/15/19 06:50 Lymphocytes % 30.5 09/15/19 06:50 Monocytes % 6.2 09/15/19 06:50 Eosinophils % 1.8 09/15/19 06:50 Basophils % 0.2 09/15/19 06:50 Absolute Neutrophils 3.30 k/cumm (1.2-6.7) 09/15/19 06:50 Absolute Lymphocytes 1.66 k/cumm (1.2-3.4) 09/15/19 06:50 Absolute Monocytes 0.34 k/cumm (0.11-0.7) 09/15/19 06:50 Absolute Eosinophils 0.10 k/cumm (0.0-0.7) 09/15/19 06:50 Absolute Basophils 0.01 k/cumm (0.0-0.2) 09/15/19 06:50 Differential Comment Rbc morph reviewed 09/15/19 06:50 RBC Morphology See below 09/15/19 06:50 Polychromasia Present 09/15/19 06:50 Poikilocytosis 1+ 09/15/19 06:50 Anisocytosis 1+ 09/15/19 06:50 Sodium 138 mmol/L (136-145) 09/15/19 06:50 Potassium 3.9 mmol/L (3.5-5.1) 09/15/19 06:50 Chloride 100 mmol/L (98-107) 09/15/19 06:50 Carbon Dioxide 29.2 mmol/L (21.0-32.0) 09/15/19 06:50 Anion Gap 8.8 mmol/L (3-11) 09/15/19 06:50 BUN 22 mg/dL (7-18) H 09/15/19 06:50 Creatinine 1.17 mg/dL (0.55-1.02) H 09/15/19 06:50 Estimated GFR/1.73 m2 47.18 (mL/min/1.73m2) 09/15/19 06:50 Glucose 84 mg/dL (74-106) 09/15/19 06:50 Lactate 1.1 mmol/L (0.6-1.4) 09/11/19 08:38 Calcium 8.5 mg/dL (8.5-10.1) 09/15/19 06:50 Magnesium 2.0 mg/dL (1.8-2.4) 09/11/19 08:38 Total Bilirubin 0.4 mg/dL (0.2-1.0) 09/09/19 22:46 AST 58 U/L (15-37) H 09/09/19 22:46 ALT 29 U/L (14-59) 09/09/19 22:46 Alkaline Phosphatase 239 U/L (46-116) H 09/09/19 22:46 Troponin I < 0.05 ng/mL (<0.06) 09/10/19 01:35 Total Protein 8.4 g/dL (6.4-8.2) H 09/09/19 22:46 Albumin 3.1 g/dL (3.4-5.0) L 09/09/19 22:46 Urine Color Yellow (Yellow) 09/16/19 08:09 Urine Clarity Sl cloudy (Clear) 09/16/19 08:09 Urine pH 5.5 (5-8) 09/16/19 08:09 Ur Specific [place] 1.020 (1.005-1.025) 09/16/19 08:09 Urine Protein Negative mg/dL (Negative) 09/16/19 08:09 Urine Ketones Negative mg/dL (Negative) 09/16/19 08:09 Urine Blood Negative (Negative) 09/16/19 08:09 Urine Nitrite Negative (Negative) 09/16/19 08:09 Urine Bilirubin Negative (Negative) 09/16/19 08:09 Urine Urobilinogen 0.2 EU/dL (Up TO 0.2) 09/16/19 08:09 Ur Leukocyte Esterase Small (Negative) H 09/16/19 08:09 Urine RBC 0-2 HPF (0-2) 09/16/19 08:09 Urine WBC 5-10 HPF (0-5) 09/16/19 08:09 Ur Epithelial Cells Few HPF (Negative) 09/16/19 08:09 Urine Crystals Negative HPF (Negative) 09/16/19 08:09 Urine Bacteria Rare HPF (Negative) 09/16/19 08:09 Urine Casts Negative LPF (Negative) 09/16/19 08:09 Urine Mucus Trace (Negative) 09/16/19 08:09 Urine Other Moderate renal (Negative) 09/12/19 09:30 Ur Culture Indicated? Yes 09/16/19 08:09 Urine Glucose Negative mg/dL (Negative) 09/16/19 08:09 COVID-19 PCR Negative (Negative) 09/10/19 00:08 Nasopharyn COVID-19 PCR Not Applicable 09/10/19 00:08 Ref Test Perform Site [facility] [place] [facility] 09/10/19 00:08
--- NOTE | 2019-09-16 14:28 | CHAPLAIN ---
Candace said she had an echo cardiogram today, and now isn't sure when she'll be discharged. She has been having low blood sugars which need attention. Candace talked about her daughters, Kiki, who takes care of her, and her other daughter who lives about 5 minutes away, but doesn't visit as often as Candace would like. She's always coming up with excuses, Candace said.
--- NOTE | 2019-09-16 15:30 | PT.INNT ---
Date of service: 09/16/19 Time of Service: 15:30 PT Notes Visit Reasons: UTI WITH SYSTEMIC INFLAMMATORY RESPONSE Candace reports, I am not doing PT today. She c/o increased right LE pain. Will check on her again in am.
[2019-09-16 15:52] VITALS: BP 111/69; PULSE 62; RESP 20; TEMP 36; O2SAT 94
[2019-09-16] MEDS: Hydrocortisone 10 MG TAB 5 MG PO (15:55)
--- NOTE | 2019-09-16 16:45 | CMPROGNOTE_ITS ---
- If Service Date Differs Date of service: 09/16/19 Time of Service: 16:45 Care Management Progress Note S/O: Candace was sitting up in her chair when CM met with her. She reported that she is doing ok. Per report, she may need 5 days of abx for her positive blood cultures. She was started on oxicillin today. She was pleasant to speak with, as usual. She misses her family and her dog. CM will continue to follow. A: Candace is a 59 year old female admitted to [facility] on 09/10/19 with UTI. P: Anticipate Candace will return home with a resumption of HH services once she is medically ready for discharge. Her HH is through [facility], CM will send discharge summary once it is available. Her daughter, Kiki, is identified as her support person/visitor for this admission. Kiki will drive her home via private vehicle when ready. CM will continue to follow and support discharge planning considerations.
[2019-09-16 20:16] VITALS: BP 131/71; PULSE 66; RESP 18; TEMP 36; O2SAT 92
[2019-09-16] MEDS: DULoxetine 30 MG CAP 60 MG PO (21:32)
[2019-09-17] MEDS: Normal Saline Flush 10 ML SYR IVP ×3 (00:50→14:08)
[2019-09-17] MEDS: Levothyroxine 150 MCG TAB PO (05:24)
[2019-09-17] MEDS: Vancomycin 125 MG CAP PO ×2 (05:24→12:03)
[2019-09-17 05:29] VITALS: BP 135/61; PULSE 78; RESP 18; TEMP 36.4; O2SAT 94
[2019-09-17 07:23] VITALS: BP 126/79; PULSE 68; RESP 17; TEMP 36.2; O2SAT 94
[2019-09-17] MEDS: Omeprazole 20 MG CAPCR 40 MG PO (07:30)
[2019-09-17 07:49] LABS: Abs Immature Grans 0.02 k/cumm (0.0-0.09); Absolute Basophil Count 0.01 k/cumm (0.0-0.2); Absolute Eosinophil Count 0.06 k/cumm (0.0-0.7); Absolute Lymphocyte Count 1.38 k/cumm (1.2-3.4); Absolute Monocyte Count 0.32 k/cumm (0.11-0.7); Basophils % 0.3; Eosinophils % 1.6; HCT 27.6 % (36.0-46.0); HGB 8.5 g/dL (12.0-15.5); Immature Grans % 0.5 %; Lymphocytes % 35.7; Mean Corp. HGB Concentration 30.8 g/dL (32.0-36.0); Mean Corpuscular Hemoglobin 29.1 pg (27.0-33.0); Mean Corpuscular Volume 94.5 fL (80-95); Monocytes % 8.3; Neutrophils % 53.6; Platelet Count 213 x1000/uL (130-400); RBC 2.92 m/cumm (4.00-5.20); RBC Distribution Width 16.2 % (11.7-14.6); White Blood Cell Count 3.87 k/cumm (4.4-10.8)
[2019-09-17 07:58] LABS: Absolute Neutrophil Count 2.07 k/cumm (1.2-6.7)
[2019-09-17 07:59] LABS: BUN 21 mg/dL (7-18); C-Reactive Protein 8.58 mg/dL (0.0-0.3); CREATININE 1.04 mg/dL (0.55-1.02); Calcium 8.8 mg/dL (8.5-10.1); Chloride 100 mmol/L (98-107); Estimated GFR 54.05 (mL/min/1.73m2); Glucose 115 mg/dL (74-106); Potassium 3.9 mmol/L (3.5-5.1); Sodium 136 mmol/L (136-145)
[2019-09-17] MEDS: Tiotropium Bromide-Respimat 10 PUFF INH IH (08:01)
[2019-09-17] MEDS: Budesonide/Formoterol 160/4.5 6 GM 60 PUFF INH IH (08:01)
[2019-09-17] MEDS: Montelukast 10 MG TAB PO (08:19)
[2019-09-17] MEDS: Hydrocortisone 10 MG TAB PO ×2 (08:20→14:08)
[2019-09-17] MEDS: Cyanocobalamin 500 MCG TAB 1000 MCG PO (08:20)
[2019-09-17] MEDS: Pregabalin 100 MG CAP 200 MG PO ×2 (08:21→13:29)
[2019-09-17] MEDS: carBAMazepine 200 MG TAB PO (08:22)
[2019-09-17] MEDS: Ferrous Sulfate 325 MG TAB PO (08:22)
[2019-09-17] MEDS: Loratidine 10 MG TAB PO (08:22)
[2019-09-17] MEDS: Apixaban 5 MG TAB PO (08:23)
[2019-09-17] MEDS: IMIPENEM/CILASTATIN 500 MG in Normal Saline 100 ML 200 MG IVPB (08:24)
[2019-09-17] MEDS: Folic Acid 1 MG TAB PO (08:25)
[2019-09-17] MEDS: Oxybutynin 5 MG TAB PO ×2 (08:25→13:28)
--- NOTE | 2019-09-17 09:31 | PDOC.CMPRO ---
- If Service Date Differs Date of service: 09/17/19 Time of Service: 09:31 Care Management Progress Note S/O: Candace was sitting up in a chair when CM met with her. Her daughter Kiki was visiting and both appeared to be in good spirits. Candace admitted to feeling much better and is looking forward to discharge tomorrow. A: Candace is a 59 year old female admitted to [facility] on 09/10/19 with UTI. P: Anticipate Candace will return home with a resumption of HH services once she is medically ready for discharge. Her HH is through [facility], CM will send discharge summary once it is available. Her daughter, Kiki, is identified as her support person/visitor for this admission. Kiki will drive her home via private vehicle when ready. CM will continue to follow and support discharge planning considerations.
[2019-09-17] MEDS: HYDROcodone 5/Acetaminophen 325 TAB PO (09:54)
--- NOTE | 2019-09-17 11:07 | PT.INTREAT ---
Date of service: 09/17/19 Time of Service: 11:07 PT Notes Visit Reasons: UTI WITH SYSTEMIC INFLAMMATORY RESPONSE Inpatient Physical Therapy Treatment Note [facility] Date: 09/17/2019 SUBJECTIVE: Candace is agreeable to taking a walk with me today. OBJECTIVE: [] BED MOBILITY/TRANSFERS Sit-stand: S Stand-sit: S GAIT Assistive Device: FWW Weight bearing: FWB Assist:SBA Distance: 100' ASSESSMENT: tolerated session fairly well. She has increased pain in right hip and into leg with prolonged wt bearing. She is independent and safe with her transfers and functional mobility. PLAN: will continue per PT POC. TREATMENT CODE/TIME: 15 min. [id number].
[2019-09-17] MEDS: Insulin Aspart 300 UNITS/3 ML PEN SC (12:03)
--- NOTE | 2019-09-17 13:16 | DSE_ITS ---
Date of service: 09/17/19 Time of Service: 13:16 DS: Diagnosis Discharge Diagnosis (1) Positive blood cultures: Start date: 09/17/19 Start time: 13:17 Status: Ruled-out Asessment and Plan: Contaminate. Repeat cultures negative (2) UTI (urinary tract infection): Start date: 09/17/19 Start time: 13:18 Status: Acute Asessment and Plan: With AMS, Grew Cirtorbacter sensitive to levaquin, she did receive a 7 day course of imipenim transition to oral levaquin to finish 1o day course antibiotics. (3) Recurrent Clostridium difficile diarrhea: Start date: 09/17/19 Start time: 13:22 Status: Acute Asessment and Plan: Continue vanco po x 10 days for prophylaxis (4) Diabetes mellitus: Start date: 09/17/19 Start time: 13:24 Status: Chronic Asessment and Plan: She did have some low bgl. Her doses were adjusted accordingly she will be going home on same dosing prior to admission as she does endorsing snacking more at home. (5) Adrenal insufficiency: Start date: 09/17/19 Start time: 13:26 Status: Chronic Asessment and Plan: She received stress dose steroids. She appears at baseline and stable. (6) Cancer related pain: Start date: 09/17/19 Start time: 13:27 Status: Chronic Asessment and Plan: continue home dosing for pain (7) History of pulmonary embolism: Start date: 09/17/19 Start time: 13:28 Status: Chronic Asessment and Plan: resp status stable. Above case discussed with Dr. Huynh who is in agreement. Discharge Plan Disposition Patient Disposition: HOME W/HOME HEALTH SERVICE Condition: Stable Discharge Details Chief Complaint: GenMedical Clinical Impression: Urinary tract infection, Weakness generalized, Acute confusion due to infection, Left lower lobe pneumonia Reason For Visit: UTI WITH SYSTEMIC INFLAMMATORY RESPONSE Admit Date/Time: 09/10/19 00:43 Admit Provider: Vince Ta Attending Provider: Vince Ta Primary Care Provider: ANNA TORO [facility] Hospital Course: 59-year-old female with several recent admissions and complex medical history that includes metastatic breast cancer on chronic opioids, recent resistant urinary tract infection, recent C. difficile colitis, BMI of 49, and chronic respiratory failure with untreated sleep apnea who was brought to the emergency room by her daughter after she was found to be incoherent at home. According to the daughter, the patient became confused and weak in the afternoon prior to admission. She had a similar presentation with previous urine tract infection. At the time of presentation the emergency room, the patient was feeling tired. At morning of admission she states she felt well until the previous night after dinner when she got confused. She felt well during the day, but she did note she needed a little more oxygen up to 3 L during the day which she attributed to the humidity. She only uses oxygen at night and as needed. On presentation she did have a cough with sputum production. Admitted August 16 for urosepsis. At that point, she did not respond to ceftriaxone or the addition of ciprofloxacin. She did finally improve with imipenem. The culture grew out Citrobacter, which was sensitive in the lab to ciprofloxacin. She was admitted August 09 with C. difficile colitis. She denies any ongoing diarrhea. Prior to that, she was admitted July 24 with pneumonia. During this admission she did grow out Citrobacter sensitive to imipenem and l evaquin, she improved with stress dose steroids and antibx. She was transitioned to PO augmentin to finish a 10 day course, with a 10 day cours of vanco po for prophylaxis. She is being discharged home with follow up appt with urology at [facility] on at 140. All services will be resumed for home health, PT/OT and Nursing. Home Meds and New Rx's Prescriptions: New levofloxacin [Levaquin] 750 mg Tablet 750 mg PO QAM Qty: 3 RF: 0 Bio-K plus 50 billion cell Capsule,Delayed Release(Dr/Ec) 1 cap PO BID Qty: 30 RF: 0 vancomycin [Vancocin] 125 mg capsule 125 mg PO QID Qty: 140 RF: 0 Continued pregabalin [Lyrica] 200 MG capsule 200 mg PO TID RF: 0 montelukast [Singulair] 10 MG tablet 10 mg PO DAILY RF: 0 cyanocobalamin (vitamin B-12) [Vitamin B-12] 1,000 MCG tablet 1,000 mcg PO DAILY RF: 0 folic acid 1 MG tablet 1 mg PO DAILY RF: 0 Spiriva Respimat 4 GM mist 1 puff Inhalation DAILY RF: 0 budesonide-formoterol [Symbicort] 10.2 GM HFA aerosol inhaler 2 puff Inhalation BID RF: 0 ondansetron HCl [Zofran] 8 MG tablet 8 mg PO TID PRNRF: 0 levothyroxine 150 mcg Tablet 150 mcg PO DAILY RF: 0 Trulicity 1.5 mg/0.5 mL Pen Injector 1.5 mg SUBCUT QWEEK RF: 0 benzonatate 200 mg Capsule 200 mg PO TID PRN (Reason: cough) Qty: 15 RF: 0 fentanyl 50 mcg/hr patch 72 hour 1 patch TD Q72H Qty: 2 RF: 0 loratadine 10 mg Tablet 10 mg PO DAILY RF: 0 duloxetine [Cymbalta] 60 mg Capsule,Delayed Release(Dr/Ec) 60 mg PO HS RF: 0 letrozole 2.5 mg Tablet 2.5 mg PO DAILY RF: 0 hydrocodone-acetaminophen 5-325 mg Tablet 2 tab PO Q4H PRN PRNQty: 5 RF: 0 omeprazole 40 mg Capsule,Delayed Release(Dr/Ec) 40 mg PO DAILY RF: 0 carbamazepine [Tegretol XR] 200 mg Tablet Extended Release 12 Hr 200 mg PO BID RF: 0 ferrous sulfate 325 mg (65 mg iron) Tablet 325 mg PO DAILY RF: 0 Lactobacillus acidophilus [Acidophilus] Capsule 1 cap DAILY RF: 0 Verzenio 150 mg Tablet 150 mg PO BID RF: 0 oxybutynin chloride 5 mg Tablet 5 mg PO TID RF: 0 cranberry 450 mg Tablet 450 mg PO DAILY RF: 0 Narcan 4 mg/actuation [place],Non-Aerosol 1 spray INTRANASAL PRN PRNRF: 0 Glucagon (HCl) Emergency Kit 1 mg Recon Soln 1 mg PRN PRNRF: 0 Eliquis 5 mg tablet 5 mg PO BID RF: 0 guaifenesin [Mucinex] 600 mg tablet extended release 12hr 600 mg PO BID PRNRF: 0 Humulin R U-500 (Conc) Kwikpen 500 unit/mL (3 mL) insulin pen 40 unit SUBCUT QNOON RF: 0 Humulin R U-500 (Conc) Kwikpen 500 unit/mL (3 mL) insulin pen 40 unit SUBCUT QPM RF: 0 Humulin R U-500 (Conc) Kwikpen 500 unit/mL (3 mL) insulin pen 70 unit SUBCUT QAM RF: 0 Lactobacillus acidophilus Capsule 1,000 mmu cells PO BID Qty: 30 RF: 0 hydrocortisone 10 mg Tablet 5 mg PO DAILY@1500 Qty: 0 RF: 0 hydrocortisone 5 mg Tablet 20 mg PO DAILY Qty: 0 RF: 0 Discontinued Dificid 200 mg Tablet 200 mg PO BID Qty: 15 RF: 0 Discharge Instructions Instructions: Urinary Tract Infection in Women (DC) Additional Instructions: Follow up with [facility] Urology on 10/28/2019 at 140 pm. If you can not make this appointment please call and change it. Take levaquin for 3 more days. Take vancomycin for 10 days Continue Bio K twice daily for at least 15 days Referrals: UROLOGY,[facility] [OTHER] - (Needs follow up for further diagnostic testing. serial UTI's with sepsis) Activity:: Activity as Tolerated Equipment/Supplies:: No Equipment Needed Diet:: Carb Counting Discharge Orders Discharge Orders: Discharge Order (Routine); Ordered 09/17/19 Ordered By: Ami Sanchez DS: Summary Status at Discharge Functional status at discharge: uses cane/walker Overall status at discharge: patient is back to baseline Mental Status: mental status grossly normal Speech and Movement: speech and movement normal Mood: congruent mood Affect: normal affect Exam Const General: cooperative, no acute distress, frail appearing and ill appearing chronically Nutritional Appearance: obese Orientation: alert, awake and oriented x3 HENMT Head: normal to inspection, normocephalic and atraumatic Resp Effort & Inspection: normal respiratory effort Auscultation: diminished lung sounds bilaterally in the lower lung sinclair Cardio Rate: regular rate Rhythm: regular rhythm GI Inspection: normal to inspection and large pannus Palpation: soft Neuro General: patient alert, patient awake and patient oriented x3 Extrem General: normal to inspection, full ROM and edema (generalized) Psych Mental Status: mental status grossly normal Speech and Movement: speech and movement normal Mood: congruent mood Affect: normal affect DS: Data Vitals/I&O Vitals and I&O: Vital Signs Temperature 36.2 C L 09/17/19 07:23 Temperature Source Tympanic 09/17/19 07:23 Pulse 68 09/17/19 07:23 Pulse Rhythm Regular 09/17/19 07:25 Pulse 109 H 09/10/19 01:40 Respiratory Rate 17 09/17/19 07:23 Respiratory Effort Non-Labored 09/17/19 07:25 Respiratory Depth Normal 09/17/19 07:25 Respiratory Pattern Normal 09/17/19 07:25 Blood Pressure 126/79 09/17/19 07:23 Blood Pressure Mean 76 09/10/19 01:30 Blood Pressure Position Supine 09/09/19 21:54 Pulse Oximetry 94 L 09/17/19 07:23 Oxygen Delivery Method Room Air 09/17/19 07:23 Oxygen Flow Rate 0 09/17/19 07:23 Pain Level 0 09/17/19 07:23 Comment 09/14/19 22:33 Intake & Output 09/16/19 09/17/19 09/17/19 23:59 11:59 23:59 Intake Total 1100 / 1490 460 / 460 Output Total 450 / 450 Balance 650 / 1040 460 / 460 Weight 146.5 kg Intake: IV 260 / 410 210 / 210 Oral 840 / 1080 250 / 250 Output: Urine 450 / 450 Other: Urine Color Yellow Straw Urine Appearance Clear Clear Urine Odor Normal Stool Size Large Stool Characteristics Soft Brown Voiding Methods Bedside Commode Incontinent Data Completed and Pending Completed studies during hospitalization [Text1]: FINDINGS: Exam is limited by patient body habitus. Renal size in cm: Right: 10.8 left: 11.5 Echogenicity: Normal Hydronephrosis: No Cyst or mass: No Nephrolithiasis: No Other findings: None Bladder:Not well evaluated due to under distension Prevoid vol:31 cc Postvoid vol:0 cc Ureteral jets not visualized IMPRESSION: Limited exam. No acute abnormality. Left Ventricle The left ventricle is normal size. The left ventricular systolic function is normal. The left ventricular ejection fraction is within the normal range. There is normal left ventricular wall thickness. There is normal LV segmental wall motion. There is no ventricular septal defect visualized. Right Ventricle The right ventricle is normal size. The RVSP is 26.6mmHg. The right ventricular systolic function is normal. Atria The left atrium size is normal. The right atrium size is normal. The interatrial septum is intact with no evidence for an atrial septal defect. Aortic Valve Aortic valve is trileaflet. There is no aortic valvular stenosis. No aortic regurgitation is present. Mitral Valve Mild mitral annular calcification. No evidence of mitral valve stenosis. Trace mitral regurgitation. Tricuspid Valve The tricuspid valve is normal in structure. There is no tricuspid valve stenosis. Trace tricuspid regurgitation. Pulmonic Valve The pulmonary valve is normal in structure. There is no pulmonic valvular stenosis. Trace pulmonic regurgitation. Great Vessels The aortic root is normal in size. Ascending aorta is not well visualized. Aortic arch is not well visualized. IVC is normal in size and collapses >50% with inspiration. Labs on day of discharge: Labs from last 24 hours 09/17/19 09/17/19 07:30 07:30 WBC 3.87 L RBC 2.92 L Hgb 8.5 L Hct 27.6 L MCV 94.5 MCH 29.1 MCHC 30.8 L RDW 16.2 H Plt Count 213 MPV 9.0 Immature Gran % 0.5 Neutrophils % 53.6 Lymphocytes % 35.7 Monocytes % 8.3 Eosinophils % 1.6 Basophils % 0.3 Absolute Neutrophils 2.07 Absolute Lymphocytes 1.38 Absolute Monocytes 0.32 Absolute Eosinophils 0.06 Absolute Basophils 0.01 Sodium 136 Potassium 3.9 Chloride 100 Carbon Dioxide 30.0 Anion Gap 6.0 BUN 21 H Creatinine 1.04 H Estimated GFR/1.73 m2 54.05 Glucose 115 H Calcium 8.8 C-Reactive Protein 8.58 H 09/17/19 08:15 Blood Blood Culture - Pending 09/17/19 07:30 Blood Blood Culture - Pending Preliminary micro results at discharge 09/16/19 08:09 Urine Culture - Preliminary Urine - Reflex from Ua Gram Positive Candida Gram Negative Db 09/17/19 08:15 Blood Culture - Pending Blood 09/17/19 07:30 Blood Culture - Pending Blood [facility] Medical History C. difficile diarrhea (Acute) Cancer related pain (Chronic) much improved with fentanyl patch Carpal tunnel syndrome (Acute) Chronic adrenal insufficiency (Acute) Chronic pain (Chronic) Chronic respiratory failure with hypoxia (Chronic) Chronic venous stasis dermatitis (Chronic) COPD (chronic obstructive pulmonary disease) (Chronic) On nocturnal oxygen - 2L prn Depression (Chronic) Diabetes mellitus (Chronic) Insulin dependent Diverticulosis (Acute) Dyslipidemia (Chronic) Goals of care, counseling/discussion (Acute) History of breast cancer (Chronic) metastatic, with lymphatic spread and bone mets Hyperlipidemia (Acute) Hypopituitarism (Chronic) Hypothyroidism (Chronic) Influenza B (Acute) Iron deficiency anemia (Acute) Metastatic breast cancer (Chronic) Obesity (Chronic) Obstructive sleep apnea (Chronic) per [facility] records Palliative care patient (Chronic) Pneumonia (Acute) POLST (Physician Orders for Life-Sustaining Treatment) (Acute) done 03/26/19; sent to [facility], [facility], [facility], original to her Restless leg syndrome (Acute) Spinal stenosis (Acute) Stage IV breast cancer in female (Chronic) Uncontrolled pain (Resolved) Surgical History H/O bilateral mastectomy (Acute) H/O colonoscopy with polypectomy (Acute) History of carpal tunnel release of both wrists (Acute) Port-A-Cath in place (Acute) Status post transsphenoidal pituitary resection (Acute) Family History Father , age 83 from complications of diabetes Prostate cancer Diabetes Mother , age 79 from complications of Crohn's disease and colitis Crohn's disease Colitis Daughter No problems noted. Daughter No problems noted. Brother No problems noted. Sister Diabetes Obesity Sister No problems noted. Sister No problems noted. Sister No problems noted. Social History Smoking/Tobacco Use Status: Former Tobacco Use Alcohol Intake: never Drug use: Never Substance use type: does not use Caregiver/Support person: Yes Household members: children Number of Children: 2 Communication Needs: Hard of Hearing and Corrective Lenses Education Level: middle school Do you need help understanding health information?: Always current occupation: on disability What is your relationship status?: How often do you talk on the phone with friends or family?: once per week How often do you get together with friends or relatives?: three or more times per week Panel score (0-1 are the most socially isolated patients): 1 What type of physical activity do you participate in: none, sedentary lifestyle, wheelchair-bound and additional Details: needs a new wheelchair, cannot walk far, just a few steps Special pedro pablo needs: No Do you feel safe at home: Yes Do you feel safe in your relationship?: Yes Additional Social history: , with 2 children. 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 She is not currently working and is on disability. Has a history of tobacco, quit in 1992. Reports rare use of alcohol only. Lives with daughter Bhargavi and Oliver, and her other daughter is close. Uses a walker to ambulate. Hard to do recently, depending more on WC. In a lot of pain. Recent scans show progression of breast cancer.
[2019-09-17] MEDS: levoFLOXacin 500 MG, levoFLOXacin 250 MG 750 MG PO (13:28)
[2019-09-17] MEDS: Heparin 500 UNITS/5 ML SYRINGE IVP (14:11)
--- NOTE | 2019-09-17 15:06 | CHAPLAIN ---
After being told she was here for the weekend, Candace was discharged this afternoon. Her daughter Kiki came to pick her up and Candace was looking forward to being home, seeing her do and sleeping in her own bed.
--- NOTE | 2019-09-17 17:15 | PDOC.CMDIS ---
- If Service Date Differs Date of service: 09/17/19 Time of Service: 17:15 LACE Index Scoring Tool - Questions: Length of Stay (in days): 7 - 13 Acuity (Admit via E.D.?): Yes Comorbidities: PVD, Diabetes w/o Complication, Chronic Pulmonary Disease, Metastatic Solid Tumor E.D. Visits: 12 - Answers: Total Score: 17 Risk of Readmission: High Risk Care Management Discharge Reason for Hospitalization: UTI
--- NOTE | 2019-09-20 18:00 | PT.INDS ---
Date of service: 09/20/19 PT Notes Visit Reasons: UTI WITH SYSTEMIC INFLAMMATORY RESPONSE Inpatient Physical Therapy Discharge Summary Dates: 09/20/2019 Dates of Service: 09/13/2019 through 09/17/2019 This is a clinical summary of care provided on the duration of dates listed above. No charge was made in the completion of this documentation. Referring Doctor: Ami Sanchez NP PT Orders: PT CONSULT: Limited ability Precautions: Fall. Standard. Activity as tolerated. Patient Profile/Admitting Diagnosis: Candace is a 59-year-old female who presented to the ED on 2019 with chief presentation of altered mental status and dehydration. Patient is diagnosed with UTI and lower lobe pneumonia with referral for skilled physical therapy services in order to address resulting impairments in mobility performance. PMHX: Medical History C. difficile diarrhea (Acute) Cancer related pain (Chronic) much improved with fentanyl patch Carpal tunnel syndrome (Acute) Chronic adrenal insufficiency (Acute) Chronic pain (Chronic) Chronic respiratory failure with hypoxia (Chronic) Chronic venous stasis dermatitis (Chronic) COPD (chronic obstructive pulmonary disease) (Chronic) On nocturnal oxygen - 2L prn Depression (Chronic) Diabetes mellitus (Chronic) Insulin dependent Diverticulosis (Acute) Dyslipidemia (Chronic) Goals of care, counseling/discussion (Acute) History of breast cancer (Chronic) metastatic, with lymphatic spread and bone mets Hyperlipidemia (Acute) Hypopituitarism (Chronic) Hypothyroidism (Chronic) Influenza B (Acute) Iron deficiency anemia (Acute) Metastatic breast cancer (Chronic) Obesity (Chronic) Obstructive sleep apnea (Chronic) per [facility] records Palliative care patient (Chronic) Pneumonia (Acute) POLST (Physician Orders for Life-Sustaining Treatment) (Acute) done 03/26/19; sent to [facility], [facility], original to her Restless leg syndrome (Acute) Spinal stenosis (Acute) Stage IV breast cancer in female (Chronic) Uncontrolled pain (Resolved) Surgical History H/O bilateral mastectomy (Acute) H/O colonoscopy with polypectomy (Acute) History of carpal tunnel release of both wrists (Acute) Port-A-Cath in place (Acute) Status post transsphenoidal pituitary resection (Acute) Social History/Home Situation: Candace lives with her daughter in [place], [place] in a two-story house with a ramp to enter with rails on both sides. Patient has stairs to the second floor of the house but has everything she needs on the first floor. She is disabled. She has 2 daughters locally. She receives choices for care highest needs, and her daughter Kiki is her primary provider for 12 years now. Kiki provides assistance with bathing and does meal preapration and assistance with lower body dressing. She was independent with front-wheeled walker for in-house ambulation and uses the 4-wheeled walker for outdoor ambulation. She has to walk about 80-90 feet to get to her car. She is dependent on her daughter for transportation to and from appointments. Daughter also provides assistance with bathing patient's back due to body habitus. Equipment Owned/DME: Bariatric FWW, bariatric hospital bed, bariatric recliner, bariatric front wheeled walker, new bariatric wheelchair with seat and back cushions Subjective: NT. See most recent EMBOSSING MACHINE OPERATOR notes. Objective: General Observation: NT. See most recent EMBOSSING MACHINE OPERATOR notes. Mental Status: NT. See most recent EMBOSSING MACHINE OPERATOR notes. Pain:NT. See most recent EMBOSSING MACHINE OPERATOR notes. ROM: Right Upper Extremity: Shoulder flexion WFL. Elbow flexion WFL. Hands/wrist and fingers are WFL. Left Upper Extremity: Shoulder flexion WFL. Elbow flexion WFL. Hands/wrist and fingers are WFL. Right Lower Extremity: Patient is able to bend hip to about 20 degrees beyond 90 while seated at edge of bed. Knee flexion WFL. Dorsiflexion/plantarflexion WFL. Left Lower Extremity: Patient is able to bend hip to about 10 degrees beyond 90 while seated at edge of bed. Knee flexion WFL. Dorsiflexion/plantarflexion WFL. Strength: Right Upper Extremity: Shoulder flexion 4/5. Elbow flexion 4/5. Polysomnography Tech strong and functional Left Upper Extremity: Shoulder flexion 4/5. Elbow flexion 4/5. Polysomnography Tech strong and functional. Right Lower Extremity: Hip flexion 3-/5. Hip extension 3/5. Knee flexion 4/-5. Knee extension 4-/5. Ankle dorsiflexion/plantarflexion 4/5. Left Lower Extremity: Hip flexion 3-/5. Hip extension 3/5. Knee flexion 4-/5. Knee extension 4-/5. Ankle dorsiflexion/plantarflexion 4/5. Bed Mobility/Transfers: Sit to stand supervision Stand to sit supervision Bed to chair supervision Chair to bed supervision Gait: Patient tolerated level surface ambulation of 150 feet using bariatric front wheeled walker with SBA of PT, no wheelchair follow. Patient demonstrated minimal breathlessness and fatigue after activity that resolved with rest. Step-through gait pattern. 8/10 pain in the right hip with ambulation. Balance: Static Sitting: Good Dynamic Sitting: Good Static Standing: Fair Dynamic Standing: Fair Assessment: Candace continues to demonstrate need for an assistive ambulatory device for all mobility ADL performance, minimal breathlessness, right hip pain limiting ambulation tolerance, and balance impairment diagnoses listed above. Candace is a 59-year-old female who presented to the ED on 2019 with chief presentation of altered mental status and dehydration. Patient is diagnosed with UTI and lower lobe pneumonia with referral for skilled physical therapy services in order to address resulting impairments in mobility performance. She will continue to benefit from continued from skilled physical therapy services at home to maximize mobility level. Goals: Goals X 1 week 1. Supine-Sit minimal assist MET 2. Sit-Supine minimal assist MET 3. Sit-Stand minimal assist MET 4. Stand-Sit minimal assist MET 5. Bed-Chair minimal assist MET 6. Chair-Bed minimal assist MET 7. Independent indoor ambulation using FWW for at least 200 feet without dyspnea and 2/10 pain in R hip NOT MET 8. Independent with home exercise program NOT MET 9. Static/dynamic standing balance/tolerance good NOT MET DISCHARGE RECOMMENDATIONS: Patient will benefit from continued home health PT services in order to progress mobility level using four-wheeled walker, assess home safety, identify additional equipment needs, and cotninue with a functional maintenance program that will increase ability of patient to remain at home with daughter. No equipment needs at this time. TREATMENT CODE/TIME: FL Thank you very much for this referral. Allie Miguel PT, DPT, CLT [facility] Inpatient PT at [place], [place]
== END 2019-09-17 14:34 | disposition home health service (06) | DRG 689 ==
LOC: ER 09-10 00:56 → MS 09-10 01:35
PROVIDERS: Internal Medicine; Nurse Practitioner Acute Care; Nurse Practitioner Family; Admitting Provider Family Medicine; Emergency Provider Registered Nurse Emergency; PCP Nurse Practitioner Family; Visit Provider Internal Medicine
DX: N39.0 Urinary tract infection, site not specified (principal); J18.9 Pneumonia, unspecified organism; J96.11 Chronic respiratory failure with hypoxia; Z16.19 Resistance to other specified beta lactam antibiotics; A04.71 Enterocolitis due to Clostridium difficile, recurrent; E27.40 Unspecified adrenocortical insufficiency; C79.89 Secondary malignant neoplasm of other specified sites; N17.9 Acute kidney failure, unspecified; Z68.42 Body mass index [BMI] 45.0-49.9, adult; J44.0 Chronic obstructive pulmonary disease with (acute) lower respiratory infection; G89.3 Neoplasm related pain (acute) (chronic); R41.82 Altered mental status, unspecified; R53.83 Other fatigue; Z87.440 Personal history of urinary (tract) infections; G47.33 Obstructive sleep apnea (adult) (pediatric); B96.89 Other specified bacterial agents as the cause of diseases classified elsewhere; E11.649 Type 2 diabetes mellitus with hypoglycemia without coma; C50.919 Malignant neoplasm of unspecified site of unspecified female breast; Z79.891 Long term (current) use of opiate analgesic; Z86.711 Personal history of pulmonary embolism; Z79.01 Long term (current) use of anticoagulants; Z79.4 Long term (current) use of insulin; E03.9 Hypothyroidism, unspecified; Z87.891 Personal history of nicotine dependence; E11.22 Type 2 diabetes mellitus with diabetic chronic kidney disease; N18.3 Chronic kidney disease, stage 3 (moderate); D50.9 Iron deficiency anemia, unspecified; E66.01 Morbid (severe) obesity due to excess calories; Z71.3 Dietary counseling and surveillance; Z03.818 Encounter for observation for suspected exposure to other biological agents ruled out
CPT/HCPCS: 36415; 36416; 51702; 76770; 80048; 80053; 82962; 87040; 87077; 93005; 94640; 96361; 96365; 96375; 97110; 97162; 97530; 99222; 99233; 99239; 99253; 99285; NC; U0003; 70450; 71046; 81003; 81015; 83605; 83735; 84484; 85025; 86140; 87070; 87086; 87186; 87205; 93010; 93306; J0743; J1720; J2700

== ENCOUNTER 2019-09-28 07:56 | Emergency (ER) | payer MEDICARE, MEDICAID, SELFPAY ==
[2019-09-28] VITALS (94 sets, daily range): BP systolic 109–123; BP diastolic 35–58; PULSE 86–96; RESP 16–27; TEMP 36.6–36.7; O2SAT 75–99
[2019-09-28] MEDS: Normal Saline 1,000 ML 1000 ML IV (09:00)
--- NOTE | 2019-09-28 09:10 | W.ED.GENAD ---
Discharge Plan Disposition Patient Disposition: HOME Condition: Stable Discharge Details Chief Complaint: GenMedical Clinical Impression: Acute UTI Primary Care Provider: ANNA TROO ED Provider: Luke Leos Home Meds and New Rx's Prescriptions: New fosfomycin tromethamine 3 gram packet 3 gm PO Q3D Qty: 2 RF: 0 Continued pregabalin [Lyrica] 200 MG capsule 200 mg PO TID RF: 0 montelukast [Singulair] 10 MG tablet 10 mg PO DAILY RF: 0 cyanocobalamin (vitamin B-12) [Vitamin B-12] 1,000 MCG tablet 1,000 mcg PO DAILY RF: 0 folic acid 1 MG tablet 1 mg PO DAILY RF: 0 Spiriva Respimat 4 GM mist 1 puff Inhalation DAILY RF: 0 budesonide-formoterol [Symbicort] 10.2 GM HFA aerosol inhaler 2 puff Inhalation BID RF: 0 ondansetron HCl [Zofran] 8 MG tablet 8 mg PO TID PRNRF: 0 levothyroxine 150 mcg Tablet 150 mcg PO DAILY RF: 0 Trulicity 1.5 mg/0.5 mL Pen Injector 1.5 mg SUBCUT QWEEK RF: 0 benzonatate 200 mg Capsule 200 mg PO TID PRN (Reason: cough) Qty: 15 RF: 0 fentanyl 50 mcg/hr patch 72 hour 1 patch TD Q72H Qty: 2 RF: 0 levofloxacin [Levaquin] 750 mg Tablet 750 mg PO QAM Qty: 3 RF: 0 Bio-K plus 50 billion cell Capsule,Delayed Release(Dr/Ec) 1 cap PO BID Qty: 30 RF: 0 vancomycin [Vancocin] 125 mg capsule 125 mg PO QID Qty: 140 RF: 0 loratadine 10 mg Tablet 10 mg PO DAILY RF: 0 duloxetine [Cymbalta] 60 mg Capsule,Delayed Release(Dr/Ec) 60 mg PO HS RF: 0 letrozole 2.5 mg Tablet 2.5 mg PO DAILY RF: 0 hydrocodone-acetaminophen 5-325 mg Tablet 2 tab PO Q4H PRN PRNQty: 5 RF: 0 omeprazole 40 mg Capsule,Delayed Release(Dr/Ec) 40 mg PO DAILY RF: 0 carbamazepine [Tegretol XR] 200 mg Tablet Extended Release 12 Hr 200 mg PO BID RF: 0 ferrous sulfate 325 mg (65 mg iron) Tablet 325 mg PO DAILY RF: 0 Lactobacillus acidophilus [Acidophilus] Capsule 1 cap DAILY RF: 0 Verzenio 150 mg Tablet 150 mg PO BID RF: 0 oxybutynin chloride 5 mg Tablet 5 mg PO TID RF: 0 cranberry 450 mg Tablet 450 mg PO DAILY RF: 0 Narcan 4 mg/actuation [place],Non-Aerosol 1 spray INTRANASAL PRN PRNRF: 0 Glucagon (HCl) Emergency Kit 1 mg Recon Soln 1 mg PRN PRNRF: 0 Eliquis 5 mg tablet 5 mg PO BID RF: 0 guaifenesin [Mucinex] 600 mg tablet extended release 12hr 600 mg PO BID PRNRF: 0 Humulin R U-500 (Conc) Kwikpen 500 unit/mL (3 mL) insulin pen 40 unit SUBCUT QNOON RF: 0 Humulin R U-500 (Conc) Kwikpen 500 unit/mL (3 mL) insulin pen 40 unit SUBCUT QPM RF: 0 Humulin R U-500 (Conc) Kwikpen 500 unit/mL (3 mL) insulin pen 70 unit SUBCUT QAM RF: 0 Lactobacillus acidophilus Capsule 1,000 mmu cells PO BID Qty: 30 RF: 0 hydrocortisone 10 mg Tablet 5 mg PO DAILY@1500 Qty: 0 RF: 0 hydrocortisone 5 mg Tablet 20 mg PO DAILY Qty: 0 RF: 0 Discharge Instructions Instructions: Urinary Tract Infection in Women (ED) Additional Instructions: Fosfomycin as directed. Plenty of fluids to avoid dehydration. Please watch for new or worsening symptoms and return to the ER for any concerns. Please follow the instructions given to you by the care management team. I have also placed you on the urology list, please call Dr. Camargo's office tomorrow for prompt outpatient reevaluation. Referrals: Adrian Camargo MD [ [facility] STAFF PHYSICIAN] - Medical Decision Making 59-year-old female DNR/DNI with significant past medical history which includes chronic renal sufficiency, C. difficile, UTI, breast CA with mets, diabetes, obesity, pneumonia, presents to the ER today reporting this morning she felt warm and sweaty. Mild weakness, generalized also associated at that time. That has resolved completely. During that time she denies any other symptoms such as headache, chest pain, shortness of breath, abdominal pain. Her only complaint at this time is that of chronic pain which is caused by her breast CA metastasis. She is afebrile, appears to be in no acute distress, pulse in the 90s, blood pressure 116/53, O2 sats 92% on room air. She does not appear to be in any acute distress at this time. I was able to discuss the case with her daughter Bhargavi who does not have additional information to provide. She was the person who called the ambulance because her mother did look sweaty. Otherwise she was asymptomatic. Reports that she has been doing well since her recent hospitalization. Will obtain CBC, CMP, urinalysis, give IV fluids. It was a very hot and humid night and this may explain her feeling warm and sweaty but certainly cannot rule out some sort of infectious process. She appears neurologically intact. The weakness she described as generalized, did not cause her to fall. Laboratory values reveal a white count of 4.94 hemoglobin 8.1 hematocrit 26.6, anemia appears to be near baseline. Platelet count 311. Electrolytes unremarkable. Creatinine 1.30, GFR 41.78 which is near her baseline. Glucose of 287. Urinalysis with moderate leuk esterase, 10-20 red blood cells 20-50 white blood cells. Patient does not appear septic however given her age, multiple comorbidities, recent hospitalization requiring 7 days IV antibiotics I do question whether or not the patient will be best served here in the ER or discharged home. Difficult to say whether this is a failed outpatient therapy UTI versus recurrent. I spoke once again with the patient's daughter Bhargavi, she feels as though her mother will be better served staying here in the hospital. Given this, I will reach out to our hospitalist team to discuss potential admission for UTI and generalized weakness. I spoke with Dr. Huynh, who reviewed the case and felt as though the patient did not require hospitalization. After he reviewed the case including her most recent urinalysis and cultures, he recommends giving a single dose of fosfomycin now and a subsequent dose 3 days from now and 6 days from now with outpatient urology follow-up. I discussed the case with the patient's daughter once again who was concerned about taking her mother home in her current condition. Given this concern, I did request that our care management team discuss the situation both with patient and her daughter as well as calling her hospitalist team back and requesting that they do a [id number] evaluation and consultation note. Please see the note provided by the care management team. Dr. Huynh came to the ER personally to evaluate the patient. He was concerned about her discomfort in her right buttocks, questioning whether there could be an occult fracture. Please see his note. He ordered fentanyl and an x-ray. Plan was if patient was ambulatory at baseline and had no acute fracture, she will be discharged home with the plan above. Upon reevaluation the patient was actually sleeping and never received any fentanyl. Patient was able to ambulate using a walker at baseline. Pelvis x-ray with right hip read by radiology is unremarkable. I once again discussed the findings with the patient's daughter and the plan to be discharged with antibiotics and prompt outpatient urology follow-up. She did once again voiced her concern but was agreeable to taking her mother home in her current condition. She had spoken with our care management team regarding different options and home resources. Upon discharge patient and family has no additional questions or concerns. Medical Records Medical records reviewed: Yes I reviewed the patient's medical records. Imaging Data Radiologic Study: Attestation: I personally reviewed and interpreted this imaging study as follows: Imaging: X-Ray Radiologist's impression: Right hip and pelvis negative per radiology Lab Data Lab results reviewed: Yes I reviewed the patient's lab results. Lab results narrative: 09/28/19 09:43 Urine - Reflex from Ua Urine Culture - Pending Laboratory Tests Range/Units 09/28/19 09/28/19 09/28/19 09:06 09:06 09:43 WBC (4.4-10.8) k/cumm 4.94 RBC (4.00-5.20) m/cumm 2.83 L Hgb (12.0-15.5) g/dL 8.1 L Hct (36.0-46.0) % 26.6 L MCV (80-95) fL 94.0 MCH (27.0-33.0) pg 28.6 MCHC (32.0-36.0) g/dL 30.5 L RDW (11.7-14.6) % 16.1 H Plt Count (130-400) x1000/uL 311 MPV (8.0-11.0) fL 8.9 Immature Gran % % 0.4 Neutrophils % 70.6 Lymphocytes % 21.7 Monocytes % 6.5 Eosinophils % 0.6 Basophils % 0.2 Absolute Neutrophils (1.2-6.7) k/cumm 3.49 Absolute Lymphocytes (1.2-3.4) k/cumm 1.07 L Absolute Monocytes (0.11-0.7) k/cumm 0.32 Absolute Eosinophils (0.0-0.7) k/cumm 0.03 Absolute Basophils (0.0-0.2) k/cumm 0.01 Differential Comment Diff reviewed RBC Morphology See below Polychromasia Present Hypochromasia 1+ Poikilocytosis 1+ Anisocytosis 1+ Sodium (136-145) mmol/L 138 Potassium (3.5-5.1) mmol/L 4.6 Chloride (98-107) mmol/L 100 Carbon Dioxide (21.0-32.0) mmol/L 29.2 Anion Gap (3-11) mmol/L 8.8 BUN (7-18) mg/dL 19 H Creatinine (0.55-1.02) mg/dL 1.30 H Estimated GFR/1.73 m2 (mL/min/1.73m2) 41.78 Glucose (74-106) mg/dL 287 H Calcium (8.5-10.1) mg/dL 9.3 Total Bilirubin (0.2-1.0) mg/dL 0.5 AST (15-37) U/L 35 ALT (14-59) U/L 19 Alkaline Phosphatase (46-116) U/L 190 H Total Protein (6.4-8.2) g/dL 7.6 Albumin (3.4-5.0) g/dL 2.8 L Urine Color (Yellow) Yellow Urine Clarity (Clear) Cloudy Urine pH (5-8) 7.0 Ur Specific [place] (1.005-1.025) 1.020 Urine Protein (Negative) mg/dL 30 H Urine Ketones (Negative) mg/dL Negative Urine Blood (Negative) Trace-intact H Urine Nitrite (Negative) Negative Urine Bilirubin (Negative) Negative Urine Urobilinogen (Up TO 0.2) EU/dL 0.2 Ur Leukocyte Esterase (Negative) Moderate H Urine RBC (0-2) HPF 10-20 H Urine WBC (0-5) HPF 20-50 H Ur Epithelial Cells (Negative) HPF Rare Urine Crystals (Negative) HPF Negative Urine Bacteria (Negative) HPF Few Urine Casts (Negative) LPF Negative Urine Mucus (Negative) Trace Urine Other (Negative) Rare renal Ur Culture Indicated? Yes Urine Glucose (Negative) mg/dL Negative HPI General Mode of arrival: EMS. Date/Time Provider Initiated Documentation: 09/28/19 08:18. Limitations to Documentation: no limitations. Information obtained by: patient and EMS. HPI Narrative: This is a 59-year-old female who is a DNR, DNI, with a significant past medical history which includes C. difficile, chronic renal insufficiency, COPD, depression, diabetes, dyslipidemia, breast CA with metastasis, anemia, obesity, chronic pain, presenting to the ER today via EMS. She reports that yesterday she went to bed asymptomatic, woke this morning feeling sweaty and had generalized weakness. She lives with her daughter and her daughter called EMS. She reports that the feeling of sweatiness and generalized weakness has resolved completely and her only complaint now is that of chronic pain that she reports is from her cancer metastasis. She is scheduled to be seen by her oncology team in [place] today at 1 PM. She was seen in the ER on 09-10-19 admitted at that time with urinary tract infection, weakness, confusion, pneumonia, subsequently discharged on the and has been feeling well up until this morning. She denies fever, headache, neck pain, chest pain, any change of her chronic shortness of breath, abdominal pain, dysuria. Related Data Home Medications Medication Instructions Recorded Confirmed Spiriva Respimat 1 puff INHALATION DAILY 04/03/17 09/09/19 budesonide-formoterol [Symbicort] 2 puff INHALATION BID 04/03/17 09/09/19 cyanocobalamin (vitamin B-12) 1,000 mcg PO DAILY 04/03/17 09/09/19 [Vitamin B-12] folic acid 1 mg PO DAILY 04/03/17 09/28/19 montelukast [Singulair] 10 mg PO DAILY 04/03/17 09/28/19 ondansetron HCl [Zofran] 8 mg PO TID PRN 04/03/17 09/28/19 pregabalin [Lyrica] 200 mg PO TID 04/03/17 09/09/19 Trulicity 1.5 mg SUBCUT QWEEK 05/06/18 09/28/19 levothyroxine 150 mcg PO DAILY 05/06/18 09/09/19 benzonatate 200 mg PO TID PRN #15 cap 05/10/18 09/09/19 duloxetine [Cymbalta] 60 mg PO HS 02/02/19 09/09/19 loratadine 10 mg PO DAILY 02/02/19 09/09/19 letrozole 2.5 mg PO DAILY 02/04/19 09/09/19 hydrocodone-acetaminophen 2 tab PO Q4H PRN PRN #5 tab 03/28/19 09/28/19 fentanyl 1 patch TD Q72H #2 each 04/20/19 09/28/19 Eliquis 5 mg PO BID 07/25/19 09/28/19 Glucagon (HCl) Emergency Kit 1 mg PRN PRN 07/25/19 09/28/19 Humulin R U-500 (Conc) Kwikpen 40 unit SUBCUT QNOON 07/25/19 09/28/19 Humulin R U-500 (Conc) Kwikpen 40 unit SUBCUT QPM 07/25/19 09/09/19 Humulin R U-500 (Conc) Kwikpen 70 unit SUBCUT QAM 07/25/19 09/09/19 Lactobacillus acidophilus 1 cap DAILY 07/25/19 09/09/19 [Acidophilus] Narcan 1 spray INTRANASAL PRN PRN 07/25/19 09/09/19 Verzenio 150 mg PO BID 07/25/19 09/09/19 carbamazepine [Tegretol XR] 200 mg PO BID 07/25/19 09/28/19 cranberry 450 mg PO DAILY 07/25/19 09/09/19 ferrous sulfate 325 mg PO DAILY 07/25/19 09/09/19 guaifenesin [Mucinex] 600 mg PO BID PRN 07/25/19 09/09/19 omeprazole 40 mg PO DAILY 07/25/19 09/09/19 oxybutynin chloride 5 mg PO TID 07/25/19 09/09/19 Lactobacillus acidophilus 1,000 mmu cells PO BID #30 cap 08/01/19 09/09/19 hydrocortisone 5 mg PO DAILY@1500 #0 tab 08/24/19 09/09/19 hydrocortisone 20 mg PO DAILY #0 tab 08/24/19 09/28/19 Bio-K plus 1 cap PO BID #30 cap 09/17/19 levofloxacin [Levaquin] 750 mg PO QAM #3 tab 09/17/19 vancomycin [Vancocin] 125 mg PO QID #140 cap 09/17/19 09/28/19 fosfomycin tromethamine 3 gm PO Q3D #2 each 09/28/19 Previous Rx's Medication Instructions Recorded benzonatate 200 mg PO TID PRN #15 cap 05/10/18 hydrocodone-acetaminophen 2 tab PO Q4H PRN PRN #5 tab 03/28/19 fentanyl 1 patch TD Q72H #2 each 04/20/19 Lactobacillus acidophilus 1,000 mmu cells PO BID #30 cap 08/01/19 hydrocortisone 5 mg PO DAILY@1500 #0 tab 08/24/19 hydrocortisone 20 mg PO DAILY #0 tab 08/24/19 Bio-K plus 1 cap PO BID #30 cap 09/17/19 levofloxacin [Levaquin] 750 mg PO QAM #3 tab 09/17/19 vancomycin [Vancocin] 125 mg PO QID #140 cap 09/17/19 fosfomycin tromethamine 3 gm PO Q3D #2 each 09/28/19 Allergies Allergy/AdvReac Type Severity Reaction Status Date / Time bee venom protein (honey bee) Allergy Unknown Unverified 09/28/19 08:00 Latex, Natural Rubber AdvReac Intermediate Unverified 09/28/19 08:00 adhesive tape AdvReac Mild Unverified 09/28/19 08:00 General Stated Complaint: GenMedical CARMEN: 3 Review of Systems Constitutional Constitutional: Denies fatigue, Denies fever(s) and Reports weakness (Generalized) Eyes Eyes: Denies change in vision ENT Ears, Nose, Mouth, and Throat: Denies neck pain and Denies sore throat Cardiovascular Cardiovascular: Denies chest pain and Reports dyspnea (Chronic, baseline) Respiratory Respiratory: Denies cough and Reports dyspnea (Chronic, baseline) Gastrointestinal Gastrointestinal: Denies abdominal pain, Denies nausea and Denies vomiting Genitourinary Genitourinary: Denies dysuria Musculoskeletal Musculoskeletal: Reports back pain, Denies neck pain and Denies tingling Integumentary/Breasts Skin/Breast: Denies rash Neurologic Neurologic: Denies tingling and Reports weakness (Generalized) Endocrine Endocrine: Denies fatigue [facility] Medical History C. difficile diarrhea (Acute) Cancer related pain (Chronic) much improved with fentanyl patch Carpal tunnel syndrome (Acute) Chronic adrenal insufficiency (Acute) Chronic pain (Chronic) Chronic respiratory failure with hypoxia (Chronic) Chronic venous stasis dermatitis (Chronic) COPD (chronic obstructive pulmonary disease) (Chronic) On nocturnal oxygen - 2L prn Depression (Chronic) Diabetes mellitus (Chronic) Insulin dependent Diverticulosis (Acute) Dyslipidemia (Chronic) Goals of care, counseling/discussion (Acute) History of breast cancer (Chronic) metastatic, with lymphatic spread and bone mets Hyperlipidemia (Acute) Hypopituitarism (Chronic) Hypothyroidism (Chronic) Influenza B (Acute) Iron deficiency anemia (Acute) Metastatic breast cancer (Chronic) Obesity (Chronic) Obstructive sleep apnea (Chronic) per [facility] records Palliative care patient (Chronic) Pneumonia (Acute) POLST (Physician Orders for Life-Sustaining Treatment) (Acute) done 03/26/19; sent to [facility], [facility], [facility] to her Restless leg syndrome (Acute) Spinal stenosis (Acute) Stage IV breast cancer in female (Chronic) Uncontrolled pain (Resolved) Surgical History H/O bilateral mastectomy (Acute) H/O colonoscopy with polypectomy (Acute) History of carpal tunnel release of both wrists (Acute) Port-A-Cath in place (Acute) Status post transsphenoidal pituitary resection (Acute) Family History Father , age 83 from complications of diabetes Prostate cancer Diabetes Mother , age 79 from complications of Crohn's disease and colitis Crohn's disease Colitis Daughter No problems noted. Daughter No problems noted. Brother No problems noted. Sister Diabetes Obesity Sister No problems noted. Sister No problems noted. Sister No problems noted. Social History Smoking/Tobacco Use Status: Former Tobacco Use Alcohol Intake: never Drug use: Never Substance use type: does not use Caregiver/Support person: Yes Household members: children Number of Children: 2 Communication Needs: Hard of Hearing and Corrective Lenses Education Level: middle school Do you need help understanding health information?: Always current occupation: on disability What is your relationship status?: How often do you talk on the phone with friends or family?: once per week How often do you get together with friends or relatives?: three or more times per week Panel score (0-1 are the most socially isolated patients): 1 What type of physical activity do you participate in: none, sedentary lifestyle, wheelchair-bound and additional Details: needs a new wheelchair, cannot walk far, just a few steps Special pedro pablo needs: No Do you feel safe at home: Yes Do you feel safe in your relationship?: Yes Additional Social history: , with 2 children. 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 She is not currently working and is on disability. Has a history of tobacco, quit in 1992. Reports rare use of alcohol only. Lives with daughter Cherise, and her other daughter is close. Uses a walker to ambulate. Hard to do recently, depending more on WC. In a lot of pain. Recent scans show progression of breast cancer. Exam Const General: cooperative, comfortable, no acute distress and disheveled Orientation: alert, awake and oriented x3 HENMT Head: normal to inspection, normocephalic and atraumatic Face and sinus: normal facial exam Mouth: moist mucous membranes Throat: posterior oropharynx normal Eyes Conjunctivae: conjunctivae normal Sclera: sclerae normal Neck Neck: normal visual inspection, full ROM, no meningeal signs, trachea midline, supple and nontender Chest Chest: other (Right-sided port, appears unremarkable) Resp Effort & Inspection: normal respiratory effort and able to speak in complete sentences Auscultation: diminished lung sounds bilaterally in the lower lung sinclair Cardio Rate: regular rate Rhythm: regular rhythm GI Inspection: obesity Palpation: soft and nontender Auscultation: normal bowel sounds Back/Spine/Pelvis Back: No back tenderness Pelvis: buttock tenderness on the right Skin Lesions: other (Bilateral lower legs with hyperpigmentation at baseline per patient) Rashes: no rashes Neuro General: patient alert, patient awake, patient oriented x3, moves all extremities and no focal motor deficits Cranial Nerves: CN's II-XI intact bilaterally Cognition: normal cognition Motor: muscle tone normal throughout and strength 5/5 throughout Sensory Exam: no sensory deficits noted Extrem General: full ROM, capillary refill normal, no calf tenderness and pedal edema bilaterally (1+-2+, baseline per patient) Psych Appearance: grossly normal Mental Status: mental status grossly normal Course Vital Signs Vital signs: Vital Signs Temperature 36.6 C 09/28/19 07:56 Pulse 96 H 09/28/19 07:56 Respiratory Rate 20 09/28/19 07:56 Blood Pressure 116/53 L 09/28/19 07:56 Pulse Oximetry 92 L 09/28/19 07:56 Temperature 36.6 C 09/28/19 07:56 Temperature Source Skin 09/28/19 07:56 Pulse 91 H 09/28/19 08:47 Pulse 90 09/28/19 08:50 Respiratory Rate 22 09/28/19 08:50 Respiratory Effort 09/28/19 08:40 Respiratory Depth Normal 09/28/19 08:40 Respiratory Pattern Normal 09/28/19 08:40 Blood Pressure 122/35 L 09/28/19 08:47 Blood Pressure Mean 52 09/28/19 08:47 Blood Pressure Position Sitting 09/28/19 07:56 Pulse Oximetry 96 09/28/19 08:50 Oxygen Delivery Method Nasal Cannula 09/28/19 07:56 Oxygen Flow Rate 2 09/28/19 07:56 Pain Level 7 09/28/19 07:56
[2019-09-28 09:18] LABS: Abs Immature Grans 0.02 k/cumm (0.0-0.09); Absolute Basophil Count 0.01 k/cumm (0.0-0.2); Absolute Eosinophil Count 0.03 k/cumm (0.0-0.7); Absolute Lymphocyte Count 1.07 k/cumm (1.2-3.4); Absolute Monocyte Count 0.32 k/cumm (0.11-0.7); Absolute Neutrophil Count 3.49 k/cumm (1.2-6.7); Basophils % 0.2; Eosinophils % 0.6; HCT 26.6 % (36.0-46.0); HGB 8.1 g/dL (12.0-15.5); Immature Grans % 0.4 %; Lymphocytes % 21.7; Mean Corp. HGB Concentration 30.5 g/dL (32.0-36.0); Mean Corpuscular Hemoglobin 28.6 pg (27.0-33.0); Mean Platelet Volume 8.9 fL (8.0-11.0); Monocytes % 6.5; Neutrophils % 70.6; Platelet Count 311 x1000/uL (130-400); RBC 2.83 m/cumm (4.00-5.20); RBC Distribution Width 16.1 % (11.7-14.6); White Blood Cell Count 4.94 k/cumm (4.4-10.8)
[2019-09-28 09:37] LABS: ALT 19 U/L (14-59); AST 35 U/L (15-37); Albumin 2.8 g/dL (3.4-5.0); Alkaline Phosphatase 190 U/L (46-116); Anion Gap 8.8 mmol/L (3-11); BUN 19 mg/dL (7-18); Bilirubin, Total 0.5 mg/dL (0.2-1.0); CO2 29.2 mmol/L (21.0-32.0); Calcium 9.3 mg/dL (8.5-10.1); Chloride 100 mmol/L (98-107); Estimated GFR 41.78 (mL/min/1.73m2); Glucose 287 mg/dL (74-106); Potassium 4.6 mmol/L (3.5-5.1); Sodium 138 mmol/L (136-145); Total Protein 7.6 g/dL (6.4-8.2)
[2019-09-28 09:48] LABS: Anisocytosis 1+; Diff Comment Diff Reviewed; Hypochromasia 1+; Polychromasia Present
[2019-09-28 09:49] LABS: Poikilocytes 1+
[2019-09-28 09:52] LABS: Bilirubin Negative (Negative); Blood Trace-intact (Negative); Clarity Cloudy (Clear); Glucose Negative (Negative); Ketones Negative (Negative); Leukocyte Esterase Moderate (Negative); Nitrite Negative (Negative); Urobilinogen 0.2 EU/dL (Up TO 0.2)
[2019-09-28 10:00] LABS: WBC 20-50 HPF (0-5)
[2019-09-28 10:01] LABS: Bacteria Few HPF (Negative); C & S Indicated? Yes; Casts Negative LPF (Negative); Crystals Negative HPF (Negative); Epithelial Cells Rare HPF (Negative); Mucus Trace (Negative); Other Cells Rare Renal (Negative)
--- NOTE | 2019-09-28 11:17 | NUR.NOTE ---
Nursing Note: FAXED REFERRAL TO [facility] TO SEE LEWIS BY THE END OF THE WEEK. KW 09/28/2019
--- NOTE | 2019-09-28 11:21 | NUR.NOTE ---
Nursing Note: Unable to confirm medication list due to patient unable to confirm medication
[2019-09-28] MEDS: Fosfomycin Tromethamine 3 GM PACKET PO (11:34)
--- NOTE | 2019-09-28 13:03 | DI.RAD_ITS ---
EXAM: XR HIP RT COMPLETE AP PELVIS INDICATION: Hip pain right-sided. COMPARISON: No exams were available for comparison TECHNIQUE: 2D digital imaging was performed. FINDINGS: The exam is extremely limited by patient body habitus. The images are under penetrated. There is no evidence of dislocation. No grossly displaced fracture is identified. The SI joints and pubic symp hysis are not widened. There are mild degenerative changes. IMPRESSION: Limited exam. No acute abnormality. DATA REPOSITORY: RADIATION DOSE DELIVERED:
== END 2019-09-28 13:40 | disposition home or self-care (01) ==
PROVIDERS: Emergency Provider Physician Assistant; PCP Nurse Practitioner Family
DX: N39.0 Urinary tract infection, site not specified (principal); R53.1 Weakness; G89.3 Neoplasm related pain (acute) (chronic); C50.919 Malignant neoplasm of unspecified site of unspecified female breast; N18.9 Chronic kidney disease, unspecified; Z95.828 Presence of other vascular implants and grafts; Z87.442 Personal history of urinary calculi; J44.9 Chronic obstructive pulmonary disease, unspecified; Z87.891 Personal history of nicotine dependence; E11.9 Type 2 diabetes mellitus without complications; Z79.4 Long term (current) use of insulin
CPT/HCPCS: 36591; 51701; 80053; 87077; 96360; 96361; 99285; 73502; 81003; 81015; 85025; 87086; 87186; J3490

== ENCOUNTER 2019-10-05 10:10 | Emergency (ER) | payer MEDICARE, MEDICAID, SELFPAY ==
[2019-10-05] VITALS (21 sets, daily range): BP systolic 103–125; BP diastolic 45–106; PULSE 70–94; RESP 20; TEMP 36.5; O2SAT 94–100
--- NOTE | 2019-10-05 10:13 | ED.GENADUL_ITS ---
Discharge Plan Disposition Patient Disposition: HOME Condition: Stable Discharge Details Chief Complaint: Abd Prob Clinical Impression: Metastatic breast cancer, Abdominal pain Primary Care Provider: ANNA TORO ED Provider: Payton Gale Home Meds and New Rx's Prescriptions: Continued pregabalin [Lyrica] 200 MG capsule 200 mg PO TID RF: 0 montelukast [Singulair] 10 MG tablet 10 mg PO DAILY RF: 0 cyanocobalamin (vitamin B-12) [Vitamin B-12] 1,000 MCG tablet 1,000 mcg PO DAILY RF: 0 folic acid 1 MG tablet 1 mg PO DAILY RF: 0 Spiriva Respimat 4 GM mist 1 puff Inhalation DAILY RF: 0 budesonide-formoterol [Symbicort] 10.2 GM HFA aerosol inhaler 2 puff Inhalation BID RF: 0 ondansetron HCl [Zofran] 8 MG tablet 8 mg PO TID PRNRF: 0 levothyroxine 150 mcg Tablet 150 mcg PO DAILY RF: 0 Trulicity 1.5 mg/0.5 mL Pen Injector 1.5 mg SUBCUT QWEEK RF: 0 benzonatate 200 mg Capsule 200 mg PO TID PRN (Reason: cough) Qty: 15 RF: 0 fentanyl 50 mcg/hr patch 72 hour 1 patch TD Q72H Qty: 2 RF: 0 levofloxacin [Levaquin] 750 mg Tablet 750 mg PO QAM Qty: 3 RF: 0 Bio-K plus 50 billion cell Capsule,Delayed Release(Dr/Ec) 1 cap PO BID Qty: 30 RF: 0 vancomycin [Vancocin] 125 mg capsule 125 mg PO QID Qty: 140 RF: 0 loratadine 10 mg Tablet 10 mg PO DAILY RF: 0 duloxetine [Cymbalta] 60 mg Capsule,Delayed Release(Dr/Ec) 60 mg PO HS RF: 0 letrozole 2.5 mg Tablet 2.5 mg PO DAILY RF: 0 hydrocodone-acetaminophen 5-325 mg Tablet 2 tab PO Q4H PRN PRNQty: 5 RF: 0 omeprazole 40 mg Capsule,Delayed Release(Dr/Ec) 40 mg PO DAILY RF: 0 carbamazepine [Tegretol XR] 200 mg Tablet Extended Release 12 Hr 200 mg PO BID RF: 0 ferrous sulfate 325 mg (65 mg iron) Tablet 325 mg PO DAILY RF: 0 Lactobacillus acidophilus [Acidophilus] Capsule 1 cap DAILY RF: 0 Verzenio 150 mg Tablet 150 mg PO BID RF: 0 oxybutynin chloride 5 mg Tablet 5 mg PO TID RF: 0 cranberry 450 mg Tablet 450 mg PO DAILY RF: 0 Narcan 4 mg/actuation [place],Non-Aerosol 1 spray INTRANASAL PRN PRNRF: 0 Glucagon (HCl) Emergency Kit 1 mg Recon Soln 1 mg PRN PRNRF: 0 Eliquis 5 mg tablet 5 mg PO BID RF: 0 guaifenesin [Mucinex] 600 mg tablet extended release 12hr 600 mg PO BID PRNRF: 0 Humulin R U-500 (Conc) Kwikpen 500 unit/mL (3 mL) insulin pen 40 unit SUBCUT QNOON RF: 0 Humulin R U-500 (Conc) Kwikpen 500 unit/mL (3 mL) insulin pen 40 unit SUBCUT QPM RF: 0 Humulin R U-500 (Conc) Kwikpen 500 unit/mL (3 mL) insulin pen 70 unit SUBCUT QAM RF: 0 Lactobacillus acidophilus Capsule 1,000 mmu cells PO BID Qty: 30 RF: 0 hydrocortisone 10 mg Tablet 5 mg PO DAILY@1500 Qty: 0 RF: 0 hydrocortisone 5 mg Tablet 20 mg PO DAILY Qty: 0 RF: 0 fosfomycin tromethamine 3 gram packet 3 gm PO Q3D Qty: 2 RF: 0 Discharge Instructions Instructions: Abdominal Pain (ED) Additional Instructions: Your imaging today is significant for further evidence of metastatic disease which is likely causing your chronic right hip pain. Your labs are reassuring without acute abnormality. Your C. difficile testing was negative. \I have sent a referral for palliative care. You should hear from them in the next few days. Please continue medications as prescribed. [place] so that Dr. Walden is able to view these images today. Develop fever/chills, increased or the new/worsening symptoms to seek care urgently once again. Please apply barrier cream to be damaged skin on buttock. Follow-up primary care in the next 1 to 2 weeks for reevaluation. Referrals: ANNA TORO [Primary Care Provider] - Discharge Data Discharge Date/Time-TO BE ENTERED AT DEPARTURE: 10/05/19 15:18 Medical Decision Making <MARYSOL Patton - Last Filed: 10/06/19 22:56> Discussed the findings of the CT with the patient. She reports that she does have known tumor in this area and is actually scheduled to have imaging of this area tomorrow by her oncologist. She does state that the area of the right side of the pelvis has been painful for her. I will refer her to palliative care. I will consult with her oncologist and try to send images to them so that she does not have to have a repeat images tomorrow. Spoke with Dr. Walden, patients oncologist. He advised that patient has known progressive disease. He advises that the patient was scheduled to see orthopedics tomorrow for her right hip pain. He has een trying to get the patient to come to [facility] for radiation therapy as the patietn has been having severe pain in the area in quesiton today. <Malcom Gutierrez MD - Last Filed: 10/05/19 11:08> I had a [id number] encounter with the patient. I evaluated the patient. I discussed case with THERMOMETER PRODUCTION WORKER/PA and I reviewed THERMOMETER PRODUCTION WORKER/PA note and agree with note as documented. HPI <MARYSOL Patton - Last Filed: 10/06/19 22:56> General Mode of arrival: ambulatory . Date/Time Provider Initiated Documentation: 10/05/19 10:13 . Limitations to Documentation: no limitations . Information obtained by: patient and RN notes reviewed . Related Data Home Medications Medication Instructions Recorded Confirmed Spiriva Respimat 1 puff INHALATION DAILY 04/03/17 10/05/19 budesonide-formoterol [Symbicort] 2 puff INHALATION BID 04/03/17 10/05/19 cyanocobalamin (vitamin B-12) 1,000 mcg PO DAILY 04/03/17 10/05/19 [Vitamin B-12] folic acid 1 mg PO DAILY 04/03/17 10/05/19 montelukast [Singulair] 10 mg PO DAILY 04/03/17 10/05/19 ondansetron HCl [Zofran] 8 mg PO TID PRN 04/03/17 10/05/19 pregabalin [Lyrica] 200 mg PO TID 04/03/17 10/05/19 Trulicity 1.5 mg SUBCUT QWEEK 05/06/18 10/05/19 levothyroxine 150 mcg PO DAILY 05/06/18 10/05/19 benzonatate 200 mg PO TID PRN #15 cap 05/10/18 10/05/19 duloxetine [Cymbalta] 60 mg PO HS 02/02/19 10/05/19 loratadine 10 mg PO DAILY 02/02/19 10/05/19 letrozole 2.5 mg PO DAILY 02/04/19 10/05/19 hydrocodone-acetaminophen 2 tab PO Q4H PRN PRN #5 tab 03/28/19 10/05/19 fentanyl 1 patch TD Q72H #2 each 04/20/19 10/05/19 Eliquis 5 mg PO BID 07/25/19 10/05/19 Glucagon (HCl) Emergency Kit 1 mg PRN PRN 07/25/19 10/05/19 Humulin R U-500 (Conc) Kwikpen 40 unit SUBCUT QNOON 07/25/19 10/05/19 Humulin R U-500 (Conc) Kwikpen 40 unit SUBCUT QPM 07/25/19 10/05/19 Humulin R U-500 (Conc) Kwikpen 70 unit SUBCUT QAM 07/25/19 10/05/19 Lactobacillus acidophilus 1 cap DAILY 07/25/19 10/05/19 [Acidophilus] Narcan 1 spray INTRANASAL PRN PRN 07/25/19 10/05/19 Verzenio 150 mg PO BID 07/25/19 10/05/19 carbamazepine [Tegretol XR] 200 mg PO BID 07/25/19 10/05/19 cranberry 450 mg PO DAILY 07/25/19 10/05/19 ferrous sulfate 325 mg PO DAILY 07/25/19 10/05/19 guaifenesin [Mucinex] 600 mg PO BID PRN 07/25/19 10/05/19 omeprazole 40 mg PO DAILY 07/25/19 10/05/19 oxybutynin chloride 5 mg PO TID 07/25/19 10/05/19 Lactobacillus acidophilus 1,000 mmu cells PO BID #30 cap 08/01/19 10/05/19 hydrocortisone 5 mg PO DAILY@1500 #0 tab 08/24/19 10/05/19 hydrocortisone 20 mg PO DAILY #0 tab 08/24/19 10/05/19 Bio-K plus 1 cap PO BID #30 cap 09/17/19 10/05/19 levofloxacin [Levaquin] 750 mg PO QAM #3 tab 09/17/19 10/05/19 vancomycin [Vancocin] 125 mg PO QID #140 cap 09/17/19 10/05/19 fosfomycin tromethamine 3 gm PO Q3D #2 each 09/28/19 10/05/19 Previous Rx's Medication Instructions Recorded benzonatate 200 mg PO TID PRN #15 cap 05/10/18 hydrocodone-acetaminophen 2 tab PO Q4H PRN PRN #5 tab 03/28/19 fentanyl 1 patch TD Q72H #2 each 04/20/19 Lactobacillus acidophilus 1,000 mmu cells PO BID #30 cap 08/01/19 hydrocortisone 5 mg PO DAILY@1500 #0 tab 08/24/19 hydrocortisone 20 mg PO DAILY #0 tab 08/24/19 Bio-K plus 1 cap PO BID #30 cap 09/17/19 levofloxacin [Levaquin] 750 mg PO QAM #3 tab 09/17/19 vancomycin [Vancocin] 125 mg PO QID #140 cap 09/17/19 fosfomycin tromethamine 3 gm PO Q3D #2 each 09/28/19 Allergies Allergy/AdvReac Type Severity Reaction Status Date / Time bee venom protein (honey bee) Allergy Unknown Unverified 10/05/19 10:22 Latex, Natural Rubber AdvReac Intermediate Unverified 10/05/19 10:22 adhesive tape AdvReac Mild Unverified 10/05/19 10:22 General CARMEN: 3 PFSH <MARYSOL Patton - Last Filed: 10/06/19 22:56> Medical History C. difficile diarrhea (Acute) Cancer related pain (Chronic) much improved with fentanyl patch Carpal tunnel syndrome (Acute) Chronic adrenal insufficiency (Acute) Chronic pain (Chronic) Chronic respiratory failure with hypoxia (Chronic) Chronic venous stasis dermatitis (Chronic) COPD (chronic obstructive pulmonary disease) (Chronic) On nocturnal oxygen - 2L prn Depression (Chronic) Diabetes mellitus (Chronic) Insulin dependent Diverticulosis (Acute) Dyslipidemia (Chronic) Goals of care, counseling/discussion (Acute) History of breast cancer (Chronic) metastatic, with lymphatic spread and bone mets Hyperlipidemia (Acute) Hypopituitarism (Chronic) Hypothyroidism (Chronic) Influenza B (Acute) Iron deficiency anemia (Acute) Metastatic breast cancer (Chronic) Obesity (Chronic) Obstructive sleep apnea (Chronic) per [facility] records Palliative care patient (Chronic) Pneumonia (Acute) POLST (Physician Orders for Life-Sustaining Treatment) (Acute) done 03/26/19; sent to [facility], [facility], [facility], original to her Restless leg syndrome (Acute) Spinal stenosis (Acute) Stage IV breast cancer in female (Chronic) Uncontrolled pain (Resolved) Surgical History H/O bilateral mastectomy (Acute) H/O colonoscopy with polypectomy (Acute) History of carpal tunnel release of both wrists (Acute) Port-A-Cath in place (Acute) Status post transsphenoidal pituitary resection (Acute) Family History Father , age 83 from complications of diabetes Prostate cancer Diabetes Mother , age 79 from complications of Crohn's disease and colitis Crohn's disease Colitis Daughter No problems noted. Daughter No problems noted. Brother No problems noted. Sister Diabetes Obesity Sister No problems noted. Sister No problems noted. Sister No problems noted. Social History Smoking/Tobacco Use Status: Former Tobacco Use Alcohol Intake: never Drug use: Never Substance use type: does not use Caregiver/Support person: Yes Household members: children Number of Children: 2 Communication Needs: Hard of Hearing and Corrective Lenses Education Level: middle school Do you need help understanding health information?: Always current occupation: on disability What is your relationship status?: How often do you talk on the phone with friends or family?: once per week How often do you get together with friends or relatives?: three or more times per week Panel score (0-1 are the most socially isolated patients): 1 What type of physical activity do you participate in: none, sedentary lifestyle, wheelchair-bound and additional Details: needs a new wheelchair, cannot walk far, just a few steps Special pedro pablo needs: No Do you feel safe at home: Yes Do you feel safe in your relationship?: Yes Additional Social history: , with 2 children. 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 She is not currently working and is on disability. Has a history of tobacco, quit in 1992. Reports rare use of alcohol only. Lives with daughter Bhargavi and Oliver, and her other daughter is close. Uses a walker to ambulate. Hard to do recently, depending more on WC. In a lot of pain. Recent scans show progression of breast cancer.
[2019-10-05] MEDS: Lactated Ringers 1,000 ML 125 ML IV (11:23)
[2019-10-05 11:33] LABS: Abs Immature Grans 0.01 10^3/uL (0.0-0.06); Absolute Basophil Count 0.01 10^3/uL (0.0-0.2); Absolute Eosinophil Count 0.07 10^3/uL (0.0-0.7); Absolute Lymphocyte Count 0.89 10^3/uL (1.2-3.4); Absolute Monocyte Count 0.19 10^3/uL (0.1-0.8); Absolute Neutrophil Count 2.55 10^3/uL (1.2-6.7); Basophils % 0.3; Eosinophils % 1.9; HCT 25.7 % (36.0-46.0); Immature Grans % 0.3; Lymphocytes % 23.9; MCH 29.1 pg (27.0-33.0); MCHC 31.1 % (32.0-36.0); MCV 93.5 fL (80-95); MPV 9.4 fL (8.0-11.0); Monocytes % 5.1; Neutrophils % 68.5; Platelet Count 267 10^3/uL (130-400); RBC 2.75 10^6/uL (3.93-5.22); RDW 15.9 % (11.7-14.6); RDW-SD 54.2 fL; WBC 3.72 10^3/uL (4.4-10.8)
[2019-10-05 11:50] LABS: ALT 18 U/L (14-59); AST 37 U/L (15-37); Albumin 2.8 g/dL (3.4-5.0); Alkaline Phosphatase 200 U/L (46-116); Anion Gap 6.2 mmol/L (3-11); BUN 13 mg/dL (7-18); Bilirubin, Total 0.2 mg/dL (0.2-1.0); CO2 29.8 mmol/L (21.0-32.0); CREATININE 1.11 mg/dL (0.55-1.02); Calcium 8.5 mg/dL (8.5-10.1); Chloride 102 mmol/L (98-107); Estimated GFR 50.14 (mL/min/1.73m2); Glucose 265 mg/dL (74-106); Lipase 219 U/L (73-393); Magnesium 2.1 mg/dL (1.8-2.4); Potassium 3.8 mmol/L (3.5-5.1); Sodium 138 mmol/L (136-145); Total Protein 7.8 g/dL (6.4-8.2)
[2019-10-05] MEDS: Omnipaque 350 MG/ML 100 ML BTL IJ (13:25)
[2019-10-05] MEDS: Normal Saline - Diluent 50 ML VIAL IV (13:26)
--- NOTE | 2019-10-05 13:26 | DI.CT_ITS ---
EXAM: CT ABDOMEN PELVIS W CLINICAL HISTORY: abdominal pain, bloating, RUQ and LUQ pain, H/O BREAST CA COMPARISON: CT CT CHEST/ABD/PEL WO from 03/23/[address] CHEST PE CTA from 06/29/2019 CR,RF RF BARIUM ENEMA from 07/30/[address] ABDOMEN PELVIS WO from 08/10/2019 CR XR HIP RT COMPLETE AP PELVIS from 09/28/2019 FINDINGS: CT examination of the abdomen and pelvis was performed with bolus infusion of 100 cc of Omnipaque 350 . Abdominal structures are not entirely included on the images obtained due to the patient's size. Images obtained through the lung bases are unremarkable. Visualized portions of the liver are unremar kable. Visualized spleen and pancreas appear normal. There is a nonspecific, stable, 2 cm left adrena l nodule. No gross bowel obstruction. No gross free intraperitoneal air or free intraperitoneal fluid . Kidneys are unremarkable in appearance. No evidence of urinary tract obstruction. Abdominal aorta is of normal diameter. No gross abdominal or pelvic adenopathy. No gross evidence of bowel obstruction. There is a predominantly destructive process of right iliac bone noted with some additional areas of sclerosis with some associated prominence of iliacus muscle. There is also involvement of contiguous portions of right sacral ala, the findings would be suggestive of infectious process but the patient reportedly has known metastatic breast carcinoma and has no clinical indication of infectious process , accordingly this is most likely to represent metastatic lesion. No fluid collection seen associated with this destructive process. IMPRESSION: Predominantly destructive process with some associated areas of sclerosis involving right iliac bone and right sacral ala. The patient reportedly has known metastatic disease from breast carcinoma and t he findings are consistent with metastatic lesion. Infectious process not excluded on the basis of th e CT examination.
--- NOTE | 2019-10-05 13:54 | ED.GENADUL_ITS ---
Discharge Plan Disposition Patient Disposition: HOME Condition: Stable Discharge Details Chief Complaint: Abd Prob Clinical Impression: Metastatic breast cancer, Abdominal pain Primary Care Provider: ANNA TORO ED Provider: Payton Gale Home Meds and New Rx's Prescriptions: Continued pregabalin [Lyrica] 200 MG capsule 200 mg PO TID RF: 0 montelukast [Singulair] 10 MG tablet 10 mg PO DAILY RF: 0 cyanocobalamin (vitamin B-12) [Vitamin B-12] 1,000 MCG tablet 1,000 mcg PO DAILY RF: 0 folic acid 1 MG tablet 1 mg PO DAILY RF: 0 Spiriva Respimat 4 GM mist 1 puff Inhalation DAILY RF: 0 budesonide-formoterol [Symbicort] 10.2 GM HFA aerosol inhaler 2 puff Inhalation BID RF: 0 ondansetron HCl [Zofran] 8 MG tablet 8 mg PO TID PRNRF: 0 levothyroxine 150 mcg Tablet 150 mcg PO DAILY RF: 0 Trulicity 1.5 mg/0.5 mL Pen Injector 1.5 mg SUBCUT QWEEK RF: 0 benzonatate 200 mg Capsule 200 mg PO TID PRN (Reason: cough) Qty: 15 RF: 0 fentanyl 50 mcg/hr patch 72 hour 1 patch TD Q72H Qty: 2 RF: 0 levofloxacin [Levaquin] 750 mg Tablet 750 mg PO QAM Qty: 3 RF: 0 Bio-K plus 50 billion cell Capsule,Delayed Release(Dr/Ec) 1 cap PO BID Qty: 30 RF: 0 vancomycin [Vancocin] 125 mg capsule 125 mg PO QID Qty: 140 RF: 0 loratadine 10 mg Tablet 10 mg PO DAILY RF: 0 duloxetine [Cymbalta] 60 mg Capsule,Delayed Release(Dr/Ec) 60 mg PO HS RF: 0 letrozole 2.5 mg Tablet 2.5 mg PO DAILY RF: 0 hydrocodone-acetaminophen 5-325 mg Tablet 2 tab PO Q4H PRN PRNQty: 5 RF: 0 omeprazole 40 mg Capsule,Delayed Release(Dr/Ec) 40 mg PO DAILY RF: 0 carbamazepine [Tegretol XR] 200 mg Tablet Extended Release 12 Hr 200 mg PO BID RF: 0 ferrous sulfate 325 mg (65 mg iron) Tablet 325 mg PO DAILY RF: 0 Lactobacillus acidophilus [Acidophilus] Capsule 1 cap DAILY RF: 0 Verzenio 150 mg Tablet 150 mg PO BID RF: 0 oxybutynin chloride 5 mg Tablet 5 mg PO TID RF: 0 cranberry 450 mg Tablet 450 mg PO DAILY RF: 0 Narcan 4 mg/actuation [place],Non-Aerosol 1 spray INTRANASAL PRN PRNRF: 0 Glucagon (HCl) Emergency Kit 1 mg Recon Soln 1 mg PRN PRNRF: 0 Eliquis 5 mg tablet 5 mg PO BID RF: 0 guaifenesin [Mucinex] 600 mg tablet extended release 12hr 600 mg PO BID PRNRF: 0 Humulin R U-500 (Conc) Kwikpen 500 unit/mL (3 mL) insulin pen 40 unit SUBCUT QNOON RF: 0 Humulin R U-500 (Conc) Kwikpen 500 unit/mL (3 mL) insulin pen 40 unit SUBCUT QPM RF: 0 Humulin R U-500 (Conc) Kwikpen 500 unit/mL (3 mL) insulin pen 70 unit SUBCUT QAM RF: 0 Lactobacillus acidophilus Capsule 1,000 mmu cells PO BID Qty: 30 RF: 0 hydrocortisone 10 mg Tablet 5 mg PO DAILY@1500 Qty: 0 RF: 0 hydrocortisone 5 mg Tablet 20 mg PO DAILY Qty: 0 RF: 0 fosfomycin tromethamine 3 gram packet 3 gm PO Q3D Qty: 2 RF: 0 Discharge Instructions Instructions: Abdominal Pain (ED) Additional Instructions: Your imaging today is significant for further evidence of metastatic disease which is likely causing your chronic right hip pain. Your labs are reassuring without acute abnormality. Your C. difficile testing was negative. \I have sent a referral for palliative care. You should hear from them in the next few days. Please continue medications as prescribed. [place] so that Dr. Walden is able to view these images today. Develop fever/chills, increased or the new/worsening symptoms to seek care urgently once again. Please apply barrier cream to be damaged skin on buttock. Follow-up primary care in the next 1 to 2 weeks for reevaluation. Referrals: ANNA TORO [Primary Care Provider] - Discharge Data Discharge Date/Time-TO BE ENTERED AT DEPARTURE: 10/05/19 15:18 Medical Decision Making Patient is a 59 year old female, well known to the department and myself, with c/c of bloating, abdominal cramping. She reports this feels very similar when she is had C. difficile historically. She does state that she was recently on antibiotics for UTI. States that 2 days ago she began having more loose stools. States that she is been having approximately 2/day. No melena or hematochezia. States that she is having some abdominal discomfort and indicates the upper abdomen is area of pain. Denies increased shortness of breath. No chest pain. Denies any nausea vomiting. No change in appetite. Patient is chronically ill, currently undergoing oral chemo for metastatic breast cancer. Patient has past medical history significant for chronic renal insufficiency, chronic respiratory failure, COPD, depression, diabetes, diverticulosis, hyperlipidemia, hypopituitary is him, hypothyroidism, RAKAN, uncontrolled pain. On exam, patient appears to be at her baseline. She does appear chronically ill. She does not appear to be in any respiratory distress. Exam of her abdomen is significant for significant hepatomegaly. She is tender over this area as well as the epigastric and left upper quadrant. Abdominal exam is otherwise benign. She does not have any rebound tenderness or guarding. Will obtain stool sample once patient is able to give 1. Will obtain labs. As the patient is having such tenderness in the upper portion of her abdomen, I do feel that imaging would be appropriate at this point will move forward with CT.3 Labs reviewed. No leukocytosis. H&H is stable with a hemoglobin of 8. CMP significant for creatinine of 1.11 which is baseline for the patient. AST and ALT are within normal limits. Total bili is within normal limits. Her alk phos is elevated at 200 but this is baseline for the patient. Stool sample negative for C. difficile, positive for lactoferrin. CT was obtained. Discussed findings with the radiologist. He is quite concerned regarding discharge process as well as sclerosis in the right iliac and right sacrum. He is concerned potential infectious process. I recommend to discuss with the patient she does report that she has chronic pain in this area and is known metastasis here. She denies any recent increase in her pain. No erythema. No skin breakdown. Based on the patient's history, I am not have reason to believe that this is infectious. She does report that she was s cheduled to see orthopedics tomorrow and have outpatient x-ray of this area. She has been wondering if this may be associated with her hip and potentially having a surgical replacement. I advised that this is most consistent with metastasis . Also with the patient's oncologist Dr. Walden. I did advise on the change in her CT compared to previous. He agrees that orthopedic consultation tomorrow is futile and that she would likely need therapeutic radiation which the patient is declined. I did discuss this further with the patient once again and she continues to decline radiation treatment. However, she is aware that this is an option will recheck to Dr. Walden should she change her mind. In regard to the loose stools, patient is C. difficile negative and does have a reassuring abdominal exam. Patient is able to eat and drink here. I did encourage water intake. Encourage close follow-up with primary care provider. Patient did have a bowel movement while here and nursing staff noted blood when wiping her bottom. She reports that she does have a chronic wound in this area that, when wiped over, cannot open and bleed. Do not see any evidence of infection in this area. This is not a. To be a deep ulcer at this point. We will request to patient's oncologist. I did speak with the patient's daughter who is her primary caregiver. We discussed the findings on the imaging today. I have pushed imaging to Dr. Walden. Patient was given return precautions. All of her questions concerns were addressed and she is in agreement this plan. HPI General Mode of arrival: wheelchair . Date/Time Provider Initiated Documentation: 10/05/19 10:13 . Limitations to Documentation: no limitations . Information obtained by: patient and RN notes reviewed . History of Present Illness 59 year old F presents to the emergency department with the chief complaint of abdominal cramping and bloating, described as moderate and similar to prior episodes (reports it feels like her c.diff has historically), Quality is described as aching, and is localized to the abdomen. Patient reports no radiation. Patient started experiencing this day(s) (2) and it h as been constant. No relieving factors improve symptom(s), No exacerbating factors reported . Patient notes other (reports 2 soft stools today); denies chest pain, cough, fever/chills, headaches, loss of appetite, nausea/vomiting, rash and shortness of breath. Patient did receive the following treatments prior to arrival, none Related Data Home Medications Medication Instructions Recorded Confirmed Spiriva Respimat 1 puff INHALATION DAILY 04/03/17 10/05/19 budesonide-formoterol [Symbicort] 2 puff INHALATION BID 04/03/17 10/05/19 cyanocobalamin (vitamin B-12) 1,000 mcg PO DAILY 04/03/17 10/05/19 [Vitamin B-12] folic acid 1 mg PO DAILY 04/03/17 10/05/19 montelukast [Singulair] 10 mg PO DAILY 04/03/17 10/05/19 ondansetron HCl [Zofran] 8 mg PO TID PRN 04/03/17 10/05/19 pregabalin [Lyrica] 200 mg PO TID 04/03/17 10/05/19 Trulicity 1.5 mg SUBCUT QWEEK 05/06/18 10/05/19 levothyroxine 150 mcg PO DAILY 05/06/18 10/05/19 benzonatate 200 mg PO TID PRN #15 cap 05/10/18 10/05/19 duloxetine [Cymbalta] 60 mg PO HS 02/02/19 10/05/19 loratadine 10 mg PO DAILY 02/02/19 10/05/19 letrozole 2.5 mg PO DAILY 02/04/19 10/05/19 hydrocodone-acetaminophen 2 tab PO Q4H PRN PRN #5 tab 03/28/19 10/05/19 fentanyl 1 patch TD Q72H #2 each 04/20/19 10/05/19 Eliquis 5 mg PO BID 07/25/19 10/05/19 Glucagon (HCl) Emergency Kit 1 mg PRN PRN 07/25/19 10/05/19 Humulin R U-500 (Conc) Kwikpen 40 unit SUBCUT QNOON 07/25/19 10/05/19 Humulin R U-500 (Conc) Kwikpen 40 unit SUBCUT QPM 07/25/19 10/05/19 Humulin R U-500 (Conc) Kwikpen 70 unit SUBCUT QAM 07/25/19 10/05/19 Lactobacillus acidophilus 1 cap DAILY 07/25/19 10/05/19 [Acidophilus] Narcan 1 spray INTRANASAL PRN PRN 07/25/19 10/05/19 Verzenio 150 mg PO BID 07/25/19 10/05/19 carbamazepine [Tegretol XR] 200 mg PO BID 07/25/19 10/05/19 cranberry 450 mg PO DAILY 07/25/19 10/05/19 ferrous sulfate 325 mg PO DAILY 07/25/19 10/05/19 guaifenesin [Mucinex] 600 mg PO BID PRN 07/25/19 10/05/19 omeprazole 40 mg PO DAILY 07/25/19 10/05/19 oxybutynin chloride 5 mg PO TID 07/25/19 10/05/19 Lactobacillus acidophilus 1,000 mmu cells PO BID #30 cap 08/01/19 10/05/19 hydrocortisone 5 mg PO DAILY@1500 #0 tab 08/24/19 10/05/19 hydrocortisone 20 mg PO DAILY #0 tab 08/24/19 10/05/19 Bio-K plus 1 cap PO BID #30 cap 09/17/19 10/05/19 levofloxacin [Levaquin] 750 mg PO QAM #3 tab 09/17/19 10/05/19 vancomycin [Vancocin] 125 mg PO QID #140 cap 09/17/19 10/05/19 fosfomycin tromethamine 3 gm PO Q3D #2 each 09/28/19 10/05/19 Previous Rx's Medication Instructions Recorded benzonatate 200 mg PO TID PRN #15 cap 05/10/18 hydrocodone-acetaminophen 2 tab PO Q4H PRN PRN #5 tab 03/28/19 fentanyl 1 patch TD Q72H #2 each 04/20/19 Lactobacillus acidophilus 1,000 mmu cells PO BID #30 cap 08/01/19 hydrocortisone 5 mg PO DAILY@1500 #0 tab 08/24/19 hydrocortisone 20 mg PO DAILY #0 tab 08/24/19 Bio-K plus 1 cap PO BID #30 cap 09/17/19 levofloxacin [Levaquin] 750 mg PO QAM #3 tab 09/17/19 vancomycin [Vancocin] 125 mg PO QID #140 cap 09/17/19 fosfomycin tromethamine 3 gm PO Q3D #2 each 09/28/19 Allergies Allergy/AdvReac Type Severity Reaction Status Date / Time bee venom protein (honey bee) Allergy Unknown Unverified 10/05/19 10:22 Latex, Natural Rubber AdvReac Intermediate Unverified 10/05/19 10:22 adhesive tape AdvReac Mild Unverified 10/05/19 10:22 General Stated Complaint: Abd Prob CARMEN: 3 Review of Systems Constitutional Constitutional: Reports as per HPI, Denies chills, Reports fatigue, Denies fever(s) and Denies headache(s) ENT Ears, Nose, Mouth, and Throat: Denies headache(s) Cardiovascular Cardiovascular: Reports as per HPI, Denies chest pain and Denies dyspnea Respiratory Respiratory: Reports as per HPI, Denies cough and Denies dyspnea Gastrointestinal Gastrointestinal: Reports as per HPI Musculoskeletal Musculoskeletal: Reports as per HPI and Denies back pain Integumentary/Breasts Skin/Breast: Reports as per HPI and Denies rash Neurologic Neurologic: Reports as per HPI and Denies headache(s) Endocrine Endocrine: Reports fatigue [facility] Medical History C. difficile diarrhea (Acute) Cancer related pain (Chronic) much improved with fentanyl patch Carpal tunnel syndrome (Acute) Chronic adrenal insufficiency (Acute) Chronic pain (Chronic) Chronic respiratory failure with hypoxia (Chronic) Chronic venous stasis dermatitis (Chronic) COPD (chronic obstructive pulmonary disease) (Chronic) On nocturnal oxygen - 2L prn Depression (Chronic) Diabetes mellitus (Chronic) Insulin dependent Diverticulosis (Acute) Dyslipidemia (Chronic) Goals of care, counseling/discussion (Acute) History of breast cancer (Chronic) metastatic, with lymphatic spread and bone mets Hyperlipidemia (Acute) Hypopituitarism (Chronic) Hypothyroidism (Chronic) Influenza B (Acute) Iron deficiency anemia (Acute) Metastatic breast cancer (Chronic) Obesity (Chronic) Obstructive sleep apnea (Chronic) per [facility] records Palliative care patient (Chronic) Pneumonia (Acute) POLST (Physician Orders for Life-Sustaining Treatment) (Acute) done 03/26/19; sent to [facility], [facility], [place], original to her Restless leg syndrome (Acute) Spinal stenosis (Acute) Stage IV breast cancer in female (Chronic) Uncontrolled pain (Resolved) Surgical History H/O bilateral mastectomy (Acute) H/O colonoscopy with polypectomy (Acute) History of carpal tunnel release of both wrists (Acute) Port-A-Cath in place (Acute) Status post transsphenoidal pituitary resection (Acute) Family History Father , age 83 from complications of diabetes Prostate cancer Diabetes Mother , age 79 from complications of Crohn's disease and colitis Crohn's disease Colitis Daughter No problems noted. Daughter No problems noted. Brother No problems noted. Sister Diabetes Obesity Sister No problems noted. Sister No problems noted. Sister No problems noted. Social History Smoking/Tobacco Use Status: Former Tobacco Use Alcohol Intake: never Drug use: Never Substance use type: does not use Caregiver/Support person: Yes Household members: children Number of Children: 2 Communication Needs: Hard of Hearing and Corrective Lenses Education Level: middle school Do you need help understanding health information?: Always current occupation: on disability What is your relationship status?: How often do you talk on the phone with friends or family?: once per week How often do you get together with friends or relatives?: three or more times per week Panel score (0-1 are the most socially isolated patients): 1 What type of physical activity do you participate in: none, sedentary lifestyle, wheelchair-bound and additional Details: needs a new wheelchair, cannot walk far, just a few steps Special pedro pablo needs: No Do you feel safe at home: Yes Do you feel safe in your relationship?: Yes Additional Social history: , with 2 children. 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 She is not currently working and is on disability. Has a history of tobacco, quit in 1992. Reports rare use of alcohol only. Lives with daughter Cherise, and her other daughter is close. Uses a walker to ambulate. Hard to do recently, depending more on WC. In a lot of pain. Recent scans show progression of breast cancer. Exam Const General: cooperative, comfortable, no acute distress, disheveled and ill appearing chronically Nutritional Appearance: obese Orientation: alert and awake HENMT Head: normal to inspection Mouth: moist mucous membranes Resp Effort & Inspection: normal respiratory effort (on home O2 chronically), able to speak in complete sentences and no respiratory distress Auscultation: clear to auscultation bilaterally, no rales, no rhonchi and no wheezes Cardio Rate: regular rate Rhythm: regular rhythm Heart Sounds: S1 normal and S2 normal GI Inspection: obesity Palpation: soft, no guarding, hepatomegaly, no hernias, no masses, not rigid and tender in the epigastrum and in the LUQ; Mg's sign negative and with no rebound tenderness Percussion: normal to percussion Auscultation: normal bowel sounds Back/Spine/Pelvis Back: no CVA tenderness Skin Trauma: abrasion (in gluteal fold, no active bleeding) Neuro General: patient alert and patient awake Cognition: normal cognition Speech: speech normal Gait: normal gait (at baseline for the patient, 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) Psych Appearance: grossly normal and well kempt Mental Status: mental status grossly normal Speech and Movement: speech and movement normal Course Vital Signs Vital signs: Vital Signs Temperature 36.5 C 10/05/19 10:17 Pulse 94 H 10/05/19 10:17 Respiratory Rate 10/05/19 10:17 Blood Pressure 125/45 L 10/05/19 10:17 Pulse Oximetry 99 10/05/19 10:17 Temperature 36.5 C 10/05/19 10:17 Temperature Source Tympanic 10/05/19 10:17 Pulse 77 10/05/19 12:41 Respiratory Rate 10/05/19 10:17 Respiratory Effort Non-Labored 10/05/19 10:17 Blood Pressure 105/72 10/05/19 12:41 Blood Pressure Mean 80 10/05/19 12:41 Blood Pressure Position Sitting 10/05/19 10:17 Pulse Oximetry 100 10/05/19 12:41 Oxygen Delivery Method Room Air 10/05/19 10:17 Oxygen Flow Rate 0 10/05/19 10:17 Pain Level 8 10/05/19 10:17 Lab/Test Results Lab/Test Results: 10/05/19 11:55 Stool Clostridioides difficile Screen - Final 10/05/19 11:55 Stool Lactoferrin Latex Agglutination - Final Laboratory Tests Range/Units 10/05/19 10/05/19 11:12 11:12 WBC (4.4-10.8) 10^3/uL 3.72 L RBC (3.93-5.22) 10^6/uL 2.75 L Hgb (11.2-15.7) g/dL 8.0 L Hct (36.0-46.0) % 25.7 L MCV (80-95) fL 93.5 MCH (27.0-33.0) pg 29.1 MCHC (32.0-36.0) % 31.1 L RDW (11.7-14.6) % 15.9 H Plt Count (130-400) 10^3/uL 267 MPV (8.0-11.0) fL 9.4 Immature Gran % 0.3 Neutrophils % 68.5 Lymphocytes % 23.9 Monocytes % 5.1 Eosinophils % 1.9 Basophils % 0.3 Absolute Neutrophils (1.2-6.7) 10^3/uL 2.55 Absolute Lymphocytes (1.2-3.4) 10^3/uL 0.89 L Absolute Monocytes (0.1-0.8) 10^3/uL 0.19 Absolute Eosinophils (0.0-0.7) 10^3/uL 0.07 Absolute Basophils (0.0-0.2) 10^3/uL 0.01 Sodium (136-145) mmol/L 138 Potassium (3.5-5.1) mmol/L 3.8 Chloride (98-107) mmol/L 102 Carbon Dioxide (21.0-32.0) mmol/L 29.8 Anion Gap (3-11) mmol/L 6.2 BUN (7-18) mg/dL 13 Creatinine (0.55-1.02) mg/dL 1.11 H Estimated GFR/1.73 m2 (mL/min/1.73m2) 50.14 Glucose (74-106) mg/dL 265 H Calcium (8.5-10.1) mg/dL 8.5 Magnesium (1.8-2.4) mg/dL 2.1 Total Bilirubin (0.2-1.0) mg/dL 0.2 AST (15-37) U/L 37 ALT (14-59) U/L 18 Alkaline Phosphatase (46-116) U/L 200 H Total Protein (6.4-8.2) g/dL 7.8 Albumin (3.4-5.0) g/dL 2.8 L Lipase (73-393) U/L 219
== END 2019-10-05 15:18 | disposition home or self-care (01) ==
PROVIDERS: Emergency Provider Physician Assistant; PCP Nurse Practitioner Family
DX: R10.9 Unspecified abdominal pain (principal); C50.919 Malignant neoplasm of unspecified site of unspecified female breast; M25.561 Pain in right knee; G89.29 Other chronic pain; Z95.828 Presence of other vascular implants and grafts
CPT/HCPCS: 36591; 80053; 83690; 96360; 96361; 99285; 74177; 83630; 83735; 85025; 87324; 99281; J3490

== ENCOUNTER 2019-10-20 18:49 | Inpatient (IN) | payer MEDICARE, MEDICAID, SELFPAY ==
[2019-10-20 18:44] VITALS: BP 113/57; PULSE 100; RESP 18; TEMP 38; O2SAT 96
--- NOTE | 2019-10-20 18:47 | ED.GENADUL_ITS ---
Discharge Plan Disposition Patient Disposition: [facility] INPATIENT Condition: Fair Discharge Details Chief Complaint: Fever Clinical Impression: Unsteady gait, Urinary tract infection Admit Date/Time: 10/20/19 21:13 Admit Provider: Robert Jose Attending Provider: Robert Jose Primary Care Provider: ANNA TORO ED Provider: Payton Gale Discharge Data Discharge Date/Time-TO BE ENTERED AT DEPARTURE: 10/20/19 22:05 Medical Decision Making Patient is 59-year-old female, well-known to myself, chief complaint fever. Patient has past medical history significant for PE, C. difficile Anemia, stage IV breast cancer, CKD, toxic metabolic encephalopathy, RAKAN, dyslipidemia, hypothyroidism, diabetes, COPD, hypopituitary is him. Patient is morbidly obese. States that she has had some recent medication adjustments as question of this may be causing recurrent UTI. She reports she gets a UTI approximately once a month. She is concerned she has a recurrent UTI. She denies any back pain. She denies any dysuria, increased frequency urgency. No dysuria. She states she has been having some shortness of breath but no chest pain . Patient is anticoagulated on Eliquis. Her daughter does take care of her mom and ensures that she is been taking her medications as prescribed. Her primary complaint continues to be right-sided hip pain. She did recently have increasing her fentanyl. This was recently reviewed by myself and patient has metastasis to the area of discomfort. Spoke with patients daughter, Bhargavi [phone]. She states that she has noted her mothers appetite to be down, confusion, fevers. States that this is how she acts when she has UTIs historically. Last was a month ago. Was seen by Dr. Royal yesterday. They are waiting for consultation for palliative radiation of her right hip pain. Has appointment with urology at [facility] for her recurrent UTI. States that her ambulation ability is at baseline for her. She did sleep throughout much of the day. On exam, patient appears to be at her baseline. She does appear chronically ill and seems to be failing each time I see her. She is febrile with a temp of 38. She smells strongly of urine. Has [id number] in her depends. Skin breakdown of her groin. No CVA tenderness. Pain with any movement ofhte RLE, primarily at the hip. Patient has slight normal white count, patient is anemic with a hemoglobin of 8.2 which is baseline for the patient. ANC is 2.7. CMP significant for creatinine of 1.37 which is fairly baseline for the patient. Her calcium corrects to 8.8 based on a low albumin of 2.8. Glucose is 215, this is baseline for the patient. Lactate is elevated at 2.0 Nursisng staff attempted multiple times to obtain a clean urine with a catheter. However, her unable to do so. Patient was in a depends that was very small foul-smelling, overly saturated with urine. Patient does have skin breakdown Hammerle concern for UTI is quite high. We will begin prophylactically on antibiotics. Consulted with Dr. Jose. I am concerned that she has been confused, has had increased weakness. She lives alone with her daughter, I am concerned that with this combination she is at high risk for fall and is morbidly obese placing her and her daughter at risk for injury. He evaluated the patient. Patient will be admitted for continued failure at home with concerns for acute UTI. HPI General Mode of arrival: EMS . Date/Time Provider Initiated Documentation: 10/20/19 19:13 . Limitations to Documentation: no limitations . Information obtained by: patient, family (spoke with daughter who is primary home care provider over hte phone) and RN notes reviewed . HPI Narrative: Patient is a 59 year old, chronically ill female, presenting via EMS with concern for UTI. States that ehas had increased weakness and fever over the past few days. Patient is incontinent at baseline but she reports that this mimics when she has had UTI historically. Denies CP, increased SOB, new back or abdominal pain. Has chronic right hip pain associated with mets for which she recently had increase in her dosing of Fentanyl. Related Data Home Medications Medication Instructions Recorded Confirmed Spiriva Respimat 1 puff INHALATION DAILY 04/03/17 10/20/19 budesonide-formoterol [Symbicort] 2 puff INHALATION BID 04/03/17 10/20/19 cyanocobalamin (vitamin B-12) 1,000 mcg PO DAILY 04/03/17 10/20/19 [Vitamin B-12] folic acid 1 mg PO DAILY 04/03/17 10/20/19 montelukast [Singulair] 10 mg PO DAILY 02/01/18 08/19/20 ondansetron HCl [Zofran] 8 mg PO TID PRN 04/03/17 10/20/19 Trulicity 1.5 mg SUBCUT QWEEK 05/06/18 10/20/19 levothyroxine 150 mcg PO DAILY 05/06/18 10/20/19 benzonatate 200 mg PO TID PRN #15 cap 05/10/18 10/20/19 Eliquis 5 mg PO BID 07/25/19 10/20/19 Glucagon (HCl) Emergency Kit 1 mg PRN PRN 07/25/19 10/20/19 Humulin R U-500 (Conc) Kwikpen 40 unit SUBCUT QNOON 07/25/19 10/20/19 Humulin R U-500 (Conc) Kwikpen 40 unit SUBCUT QPM 07/25/19 10/20/19 Humulin R U-500 (Conc) Kwikpen 70 unit SUBCUT QAM 07/25/19 10/20/19 Narcan 1 spray INTRANASAL PRN PRN 07/25/19 10/20/19 cranberry 450 mg PO DAILY 07/25/19 10/20/19 ferrous sulfate 325 mg PO DAILY 07/25/19 10/20/19 guaifenesin [Mucinex] 600 mg PO BID PRN 07/25/19 10/20/19 omeprazole 40 mg PO DAILY 07/25/19 10/20/19 Lactobacillus acidophilus 1,000 mmu cells PO BID #30 cap 08/01/19 10/20/19 hydrocortisone 5 mg PO DAILY@1500 #0 tab 08/24/19 10/20/19 hydrocortisone 20 mg PO DAILY #0 tab 08/24/19 10/20/19 denosumab 120 mg/1.7 mL (70 mg/mL) 120 mg SC Q4W #1.7 ml 10/19/19 10/20/19 subcutaneous solution everolimus (antineoplastic) 10 mg 10 mg PO DAILY #30 tab 10/19/19 10/20/19 tablet exemestane 25 mg tablet 25 mg PO DAILY #90 tab 10/19/19 10/20/19 fentanyl 100 mcg/hr transdermal 1 patch TD Q72H #10 each MDD 125 10/19/19 10/20/19 patch mcg fentanyl 25 mcg/hr transdermal 1 patch TD Q72H #10 each MDD 125 10/19/19 10/20/19 patch mcg hydrocodone 7.5 mg-acetaminophen 2 tab PO Q8H PRN #90 tab MDD 45 mg 10/19/19 10/20/19 325 mg tablet Previous Rx's Medication Instructions Recorded benzonatate 200 mg PO TID PRN #15 cap 05/10/18 Lactobacillus acidophilus 1,000 mmu cells PO BID #30 cap 08/01/19 hydrocortisone 5 mg PO DAILY@1500 #0 tab 08/24/19 hydrocortisone 20 mg PO DAILY #0 tab 08/24/19 denosumab 120 mg/1.7 mL (70 mg/mL) 120 mg SC Q4W #1.7 ml 10/19/19 subcutaneous solution everolimus (antineoplastic) 10 mg 10 mg PO DAILY #30 tab 10/19/19 tablet exemestane 25 mg tablet 25 mg PO DAILY #90 tab 10/19/19 fentanyl 100 mcg/hr transdermal 1 patch TD Q72H #10 each MDD 125 10/19/19 patch mcg fentanyl 25 mcg/hr transdermal 1 patch TD Q72H #10 each MDD 125 10/19/19 patch mcg hydrocodone 7.5 mg-acetaminophen 2 tab PO Q8H PRN #90 tab MDD 45 mg 10/19/19 325 mg tablet Allergies Allergy/AdvReac Type Severity Reaction Status Date / Time bee venom protein (honey bee) Allergy Unknown Unverified 10/20/19 20:21 Latex, Natural Rubber AdvReac Intermediate Unverified 10/20/19 20:21 adhesive tape AdvReac Mild Unverified 10/20/19 20:21 General CARMEN: 3 Review of Systems Constitutional Constitutional: Reports as per HPI, Denies chills, Reports fatigue, Reports fever(s), Denies headache(s), Reports lethargy and Reports weakness ENT Ears, Nose, Mouth, and Throat: Denies headache(s) Cardiovascular Cardiovascular: Reports as per HPI, Denies chest pain and Reports dyspnea (chronic, unchanged from baseline) Respiratory Respiratory: Reports as per HPI, Denies cough and Reports dyspnea (chronic, unchanged from baseline) Gastrointestinal Gastrointestinal: Reports as per HPI, Denies abdominal pain and Denies change in bowel habits Genitourinary Genitourinary: Reports as per HPI Musculoskeletal Musculoskeletal: Reports as per HPI and Denies back pain Integumentary/Breasts Skin/Breast: Reports as per HPI and Denies rash Neurologic Neurologic: Reports as per HPI, Denies headache(s) and Reports weakness Endocrine Endocrine: Reports fatigue [facility] Medical History Acute confusion due to infection (Resolved) Acute UTI (Resolved) Adenoma of pituitary (Chronic) benign; renoved surgically on steroids and synthroid to replete Bacteremia (Resolved) Citrobacter C. difficile diarrhea (Acute) Cancer related pain (Chronic) improved with fentanyl patch Carpal tunnel syndrome (Acute) Chronic adrenal insufficiency (Acute) Chronic pain (Chronic) Chronic respiratory failure with hypoxia (Chronic) Chronic venous stasis dermatitis (Chronic) COPD (chronic obstructive pulmonary disease) (Chronic) On nocturnal oxygen - 2L prn Depression (Chronic) Diabetes mellitus (Chronic) Insulin dependent Discharge planning issues (Resolved) Diverticulosis (Acute) DNI (do not intubate) (Acute) DNR (do not resuscitate) (Acute) Dyslipidemia (Chronic) E. coli bacteremia (Resolved) Fatigue (Acute) Goals of care, counseling/discussion (Acute) History of breast cancer (Chronic) metastatic, with lymphatic spread and bone mets Hyperlipidemia (Acute) Hypopituitarism (Chronic) Hypothyroidism (Chronic) Influenza B (Acute) Iron deficiency anemia (Acute) Left lower lobe pneumonia (Resolved) Metastatic breast cancer (Chronic) Obesity (Chronic) Obstructive sleep apnea (Chronic) per [facility] records Palliative care patient (Chronic) Pneumonia (Acute) POLST (Physician Orders for Life-Sustaining Treatment) (Acute) done 03/26/19; DNR/DNI Positive blood cultures (Ruled-out) Pulmonary emboli (Inactive) Recurrent urinary tract infection (Acute) Restless leg syndrome (Acute) SOB (shortness of breath) (Resolved) Spinal stenosis (Acute) Stage IV breast cancer in female (Chronic) Toxic metabolic encephalopathy (Resolved) Uncontrolled pain (Resolved) Unsteady gait (Chronic) Urinary incontinence (Acute) UTI (urinary tract infection) (Resolved) Surgical History H/O bilateral mastectomy (Acute) H/O colonoscopy with polypectomy (Acute) H/O mastectomy (Chronic) bilateral History of carpal tunnel release of both wrists (Acute) Port-A-Cath in place (Acute) Status post transsphenoidal pituitary resection (Acute) Family History Father , age 83 from complications of diabetes Prostate cancer Diabetes Mother , age 79 from complications of Crohn's disease and colitis Crohn's disease Colitis Daughter No problems noted. Daughter No problems noted. Brother Arthritis severe Obesity Sister Diabetes Obesity Sister No problems noted. Sister No problems noted. Social History Smoking/Tobacco Use Status: Former Tobacco Use Alcohol Intake: never Drug use: Never Substance use type: does not use Caregiver/Support person: Yes Household members: children Number of Children: 2 Communication Needs: Hard of Hearing and Corrective Lenses Education Level: middle school Do you need help understanding health information?: Always current occupation: on disability Pets and animals: Yes (4 cats, 3 dogs, 1 bird, 6 hermit crabs) Pets and animals: cat(s), dog(s), bird(s) and other Details: hermit crabs Current gender identity: female What is your relationship status?: How often do you talk on the phone with friends or family?: once per week How often do you get together with friends or relatives?: three or more times per week Panel score (0-1 are the most socially isolated patients): 1 What type of physical activity do you participate in: none, sedentary lifestyle, wheelchair-bound and additional Details: needs a new wheelchair, cannot walk far, just a few steps Special pedro pablo needs: No Seatbelt use: always Working smoke detector in home: Yes Fire extinguisher in home: Yes Firearms in home: No Do you feel safe at home: Yes Do you feel safe in your relationship?: Yes Additional Social history: , with 2 children. 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 She is not currently working and is on disability. Has a history of tobacco, quit in 1992. Reports rare use of alcohol only. Lives with daughter Bhargavi in [place], and her other daughter is close. Uses a walker to ambulate. Hard to do recently, depending more on WC. In a lot of pain. Recent scans show progression of breast cancer. Exam Const General: cooperative, comfortable, no acute distress, disheveled and ill appearing chronically Nutritional Appearance: obese morbidly obese Orientation: alert, awake, oriented x3 and other (appears to be at her baseline, appropriate but slow to answer questions ) HENNC Head: normal to inspection Mouth: mucous membranes dry (dry) Resp Effort & Inspection: normal respiratory effort, able to speak in complete sentences and no respiratory distress Auscultation: clear to auscultation bilaterally, no rales, no rhonchi and no wheezes Cardio Rate: regular rate Rhythm: regular rhythm Heart Sounds: S1 normal and S2 normal GI Inspection: normal to inspection and obesity Palpation: soft, hepatomegaly and nontender Percussion: normal to percussion Auscultation: normal bowel sounds Back/Spine/Pelvis Back: no CVA tenderness Skin General skin exam: erythema (skin is raw in groin) Neuro General: patient alert and patient awake Cognition: normal cognition Speech: speech normal Psych Appearance: grossly normal and well kempt Mental Status: mental status grossly normal Speech and Movement: speech and movement normal
[2019-10-20 19:23] LABS: Abs Immature Grans 0.01 10^3/uL (0.0-0.06); Absolute Basophil Count 0.01 10^3/uL (0.0-0.2); Absolute Eosinophil Count 0.01 10^3/uL (0.0-0.7); Absolute Lymphocyte Count 1.17 10^3/uL (1.2-3.4); Absolute Monocyte Count 0.57 10^3/uL (0.1-0.8); Basophils % 0.2; Eosinophils % 0.2; HCT 26.1 % (36.0-46.0); HGB 8.2 g/dL (11.2-15.7); Immature Grans % 0.2; Lymphocytes % 26.2; MCH 28.4 pg (27.0-33.0); MCHC 31.4 % (32.0-36.0); MCV 90.3 fL (80-95); MPV 9.5 fL (8.0-11.0); Monocytes % 12.8; Neutrophils % 60.4; Nucleated RBC 0 %; Platelet Count 158 10^3/uL (130-400); RBC 2.89 10^6/uL (3.93-5.22); RDW 15.7 % (11.7-14.6); RDW-SD 52.1 fL; WBC 4.47 10^3/uL (4.4-10.8)
[2019-10-20 19:43] LABS: ALT 31 U/L (14-59); AST 126 U/L (15-37); Albumin 2.8 g/dL (3.4-5.0); Alkaline Phosphatase 188 U/L (46-116); BUN 14 mg/dL (7-18); Bilirubin, Total 0.5 mg/dL (0.2-1.0); CREATININE 1.37 mg/dL (0.55-1.02); Calcium 7.8 mg/dL (8.5-10.1); Chloride 100 mmol/L (98-107); Estimated GFR 39.33 (mL/min/1.73m2); Glucose 215 mg/dL (74-106); Potassium 3.7 mmol/L (3.5-5.1); Sodium 137 mmol/L (136-145)
[2019-10-20] MEDS: Acetaminophen 500 MG TAB 1000 MG PO (19:58)
--- NOTE | 2019-10-20 19:58 | NUR.NOTE ---
unable to physicly get a urine cath sample with twn nursesNursing Note:
[2019-10-20] MEDS: Normal Saline 1,000 ML 150 ML IV ×2 (20:20→23:20)
[2019-10-20] MEDS: cefTRIAXone 1 GM/50 ML BAG IVPB (20:20)
--- NOTE | 2019-10-20 20:28 | DI.RAD_ITS ---
EXAM: XR PORTABLE CHEST AP CLINICAL HISTORY: fever TECHNIQUE: 2D digital imaging was performed. COMPARISON: CR,XR XR CHEST 2V PA LATERAL from 09/09/2019 FINDINGS: The heart is enlarged. A port is again noted over the right upper chest. Leads overlie the chest. No infiltrate, effusion or pulmonary edema is seen. IMPRESSION: No acute pulmonary findings. DATA REPOSITORY: RADIATION DOSE DELIVERED:
--- NOTE | 2019-10-20 20:44 | DI.VRAD_ITS ---
PROCEDURE INFORMATION: Exam: XR Chest, 1 View Exam date and time: 10/20/2019 8:18 PM Age: 59 years old Clinical indication: Fever TECHNIQUE: Imaging protocol: XR of the chest Views: 1 view. COMPARISON: 1. CR XR CHEST 2V PA LATERAL 09/09/2019 11:39 PM 2. CR - XR PORTABLE CHEST AP 08/17/2019 9:40:55 AM FINDINGS: Tubes, catheters and devices: Stable right chest port. Lungs: No focal consolidation. Pleural space: No pleural effusion. No pneumothorax. Heart/Mediastinum: The heart is enlarged. Bones/joints: Unremarkable. IMPRESSION: No acute cardiopulmonary disease. Dictated and Authenticated by: Royal Yoo MD. Ordering:ELVIA Cain MD
--- NOTE | 2019-10-20 21:00 | W.PM.HP.N ---
Date of service: 10/20/19 Time of Service: 21:00 Assessment and Plan Assessment and plan (1) Fever: Status: Acute Assessment and plan: Fever, probable UTI. Hemodynamics satisfactory at present. Sensorium has cleared. Will obtain urine sample, continue Rocephin pending cxx, and give stress doses steroids given adrenal insufficiency. Usual meds as is except will reduce basal insulin by one half (with SS coverage) until we see how does with PO, and effects of steroids. Remains DNR History of Present Illness History of Present Illness Chief Complaint: fever Narrative: 59 female with multiple medical problems, including metastatic breast cancer and recurrent UTIs. Here today with fever, confusion and dysuria and weakness. In ER temp to 38, initially confused but has since cleared, but continues weak and unable to effectively ambulate. Blood cx obtained, staff unable to obtain urine sample. Given Rocephin 1 gr and admitted for further management. Review of Systems All systems reviewed & are unremarkable except as noted in HPI and below PFSH Medical History Acute confusion due to infection (Resolved) Acute UTI (Resolved) Adenoma of pituitary (Chronic) benign; renoved surgically on steroids and synthroid to replete Bacteremia (Resolved) Citrobacter C. difficile diarrhea (Acute) Cancer related pain (Chronic) improved with fentanyl patch Carpal tunnel syndrome (Acute) Chronic adrenal insufficiency (Acute) Chronic pain (Chronic) Chronic respiratory failure with hypoxia (Chronic) Chronic venous stasis dermatitis (Chronic) COPD (chronic obstructive pulmonary disease) (Chronic) On nocturnal oxygen - 2L prn Depression (Chronic) Diabetes mellitus (Chronic) Insulin dependent Discharge planning issues (Resolved) Diverticulosis (Acute) DNI (do not intubate) (Acute) DNR (do not resuscitate) (Acute) Dyslipidemia (Chronic) E. coli bacteremia (Resolved) Fatigue (Acute) Goals of care, counseling/discussion (Acute) History of breast cancer (Chronic) metastatic, with lymphatic spread and bone mets Hyperlipidemia (Acute) Hypopituitarism (Chronic) Hypothyroidism (Chronic) Influenza B (Acute) Iron deficiency anemia (Acute) Left lower lobe pneumonia (Resolved) Metastatic breast cancer (Chronic) Obesity (Chronic) Obstructive sleep apnea (Chronic) per [facility] records Palliative care patient (Chronic) Pneumonia (Acute) POLST (Physician Orders for Life-Sustaining Treatment) (Acute) done 03/26/19; DNR/DNI Positive blood cultures (Ruled-out) Pulmonary emboli (Inactive) Recurrent urinary tract infection (Acute) Restless leg syndrome (Acute) SOB (shortness of breath) (Resolved) Spinal stenosis (Acute) Stage IV breast cancer in female (Chronic) Toxic metabolic encephalopathy (Resolved) Uncontrolled pain (Resolved) Unsteady gait (Chronic) Urinary incontinence (Acute) UTI (urinary tract infection) (Resolved) Surgical History H/O bilateral mastectomy (Acute) H/O colonoscopy with polypectomy (Acute) H/O mastectomy (Chronic) bilateral History of carpal tunnel release of both wrists (Acute) Port-A-Cath in place (Acute) Status post transsphenoidal pituitary resection (Acute) Family History Father , age 83 from complications of diabetes Prostate cancer Diabetes Mother , age 79 from complications of Crohn's disease and colitis Crohn's disease Colitis Daughter No problems noted. Daughter No problems noted. Brother Arthritis severe Obesity Sister Diabetes Obesity Sister No problems noted. Sister No problems noted. Social History Smoking/Tobacco Use Status: Former Tobacco Use Alcohol Intake: never Drug use: Never Substance use type: does not use Caregiver/Support person: Yes Household members: children Number of Children: 2 Communication Needs: Hard of Hearing and Corrective Lenses Education Level: middle school Do you need help understanding health information?: Always current occupation: on disability Pets and animals: Yes (4 cats, 3 dogs, 1 bird, 6 hermit crabs) Pets and animals: cat(s), dog(s), bird(s) and other Details: hermit crabs Current gender identity: female What is your relationship status?: How often do you talk on the phone with friends or family?: once per week How often do you get together with friends or relatives?: three or more times per week Panel score (0-1 are the most socially isolated patients): 1 What type of physical activity do you participate in: none, sedentary lifestyle, wheelchair-bound and additional Details: needs a new wheelchair, cannot walk far, just a few steps Special pedro pablo needs: No Seatbelt use: always Working smoke detector in home: Yes Fire extinguisher in home: Yes Firearms in home: No Do you feel safe at home: Yes Do you feel safe in your relationship?: Yes Additional Social history: , with 2 children. 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 She is not currently working and is on disability. Has a history of tobacco, quit in 1992. Reports rare use of alcohol only. Lives with daughter Bhargavi in [place], and her other daughter is close. Uses a walker to ambulate. Hard to do recently, depending more on WC. In a lot of pain. Recent scans show progression of breast cancer. Meds Home Medications and Allergies Home Medications Medication Instructions Recorded Confirmed Type Spiriva Respimat 1 puff INHALATION DAILY 04/03/17 10/20/19 History budesonide-formoterol [Symbicort] 2 puff INHALATION BID 04/03/17 10/20/19 History cyanocobalamin (vitamin B-12) 1,000 mcg PO DAILY 04/03/17 10/20/19 History [Vitamin B-12] folic acid 1 mg PO DAILY 04/03/17 10/20/19 History montelukast [Singulair] 10 mg PO DAILY 04/03/17 10/20/19 History ondansetron HCl [Zofran] 8 mg PO TID PRN 04/03/17 10/20/19 History Trulicity 1.5 mg SUBCUT QWEEK 05/06/18 10/20/19 History levothyroxine 150 mcg PO DAILY 05/06/18 10/20/19 History benzonatate 200 mg PO TID PRN #15 cap 05/10/18 10/20/19 Rx Eliquis 5 mg PO BID 07/25/19 10/20/19 History Glucagon (HCl) Emergency Kit 1 mg PRN PRN 07/25/19 10/20/19 History Humulin R U-500 (Conc) Kwikpen 40 unit SUBCUT QNOON 07/25/19 10/20/19 History Humulin R U-500 (Conc) Kwikpen 40 unit SUBCUT QPM 07/25/19 10/20/19 History Humulin R U-500 (Conc) Kwikpen 70 unit SUBCUT QAM 07/25/19 10/20/19 History Narcan 1 spray INTRANASAL PRN PRN 07/25/19 10/20/19 History cranberry 450 mg PO DAILY 07/25/19 10/20/19 History ferrous sulfate 325 mg PO DAILY 07/25/19 10/20/19 History guaifenesin [Mucinex] 600 mg PO BID PRN 07/25/19 10/20/19 History omeprazole 40 mg PO DAILY 07/25/19 10/20/19 History Lactobacillus acidophilus 1,000 mmu cells PO BID #30 cap 08/01/19 10/20/19 Rx hydrocortisone 5 mg PO DAILY@1500 #0 tab 08/24/19 10/20/19 Rx hydrocortisone 20 mg PO DAILY #0 tab 08/24/19 10/20/19 Rx denosumab 120 mg/1.7 mL (70 mg/mL) 120 mg SC Q4W #1.7 ml 10/19/19 10/20/19 Rx subcutaneous solution everolimus (antineoplastic) 10 mg 10 mg PO DAILY #30 tab 10/19/19 10/20/19 Rx tablet exemestane 25 mg tablet 25 mg PO DAILY #90 tab 10/19/19 10/20/19 Rx fentanyl 100 mcg/hr transdermal 1 patch TD Q72H #10 each MDD 125 10/19/19 10/20/19 Rx patch mcg fentanyl 25 mcg/hr transdermal 1 patch TD Q72H #10 each MDD 125 10/19/19 10/20/19 Rx patch mcg hydrocodone 7.5 mg-acetaminophen 2 tab PO Q8H PRN #90 tab MDD 45 mg 10/19/19 10/20/19 Rx 325 mg tablet Allergies Allergy/AdvReac Type Severity Reaction Status Date / Time bee venom protein (honey bee) Allergy Unknown Unverified 10/20/19 20:21 Latex, Natural Rubber AdvReac Intermediate Unverified 10/20/19 20:21 adhesive tape AdvReac Mild Unverified 10/20/19 20:21 Exam Narrative Exam Narrative: 1123/57, 100, 38.0, 18, 96% RA. HEENT atraumatic; neck supple; lungs diminished; heart RRR; abdomen soft and NT; extremities chronic lymphedema with stasis changes; neuro ox3e, lucid, moves all 4s Results Labs Result diagrams: 10/20/19 19:00 10/20/19 19:00 Labs: Laboratory Results - last 24 hr 10/20/19 10/20/19 10/20/19 19:00 19:00 19:00 WBC 4.47 RBC 2.89 L Hgb 8.2 L Hct 26.1 L MCV 90.3 MCH 28.4 MCHC 31.4 L RDW 15.7 H Plt Count 158 D MPV 9.5 Immature Gran % 0.2 Neutrophils % 60.4 Lymphocytes % 26.2 Monocytes % 12.8 Eosinophils % 0.2 Basophils % 0.2 Nucleated RBC % 0 Absolute Neutrophils 2.70 Absolute Lymphocytes 1.17 L Absolute Monocytes 0.57 Absolute Eosinophils 0.01 Absolute Basophils 0.01 Sodium 137 Potassium 3.7 Chloride 100 Carbon Dioxide 28.0 Anion Gap 9.0 BUN 14 Creatinine 1.37 H Estimated GFR/1.73 m2 39.33 Glucose 215 H Lactate 2.0 H Calcium 7.8 L Total Bilirubin 0.5 AST 126 H ALT 31 Alkaline Phosphatase 188 H Total Protein 8.0 Albumin 2.8 L Last Vital Signs Temp 38 C H 10/20/19 18:44 Pulse 100 H 10/20/19 18:44 Resp 18 10/20/19 18:44 BP 113/57 L 10/20/19 18:44 Pulse Ox 96 10/20/19 18:44 COVID-19 Screening Have you,or household,traveled outside [place] in last 14 days?: No Had IN PERSON contact w/suspected or confirmed C-19 person: No
[2019-10-20 21:11] VITALS: PULSE 100; RESP 18; TEMP 38.4; O2SAT 97
[2019-10-20 21:35] LABS: Bilirubin Negative (Negative); Blood Moderate (Negative); Clarity Sl Cloudy (Clear); Glucose Negative (Negative); Ketones 15 mg/dL (Negative); Leukocyte Esterase Moderate (Negative); Nitrite Negative (Negative); Urobilinogen 0.2 EU/dL (Up TO 0.2)
[2019-10-20 21:36] VITALS: BP 135/58; PULSE 94; RESP 20; TEMP 36.7; O2SAT 99
--- NOTE | 2019-10-20 21:37 | NUR.NOTE ---
pt to commode per admitting Drs request . attempt to get clean catch. pt unable to bear weight on her right leg very weak transfer Nursing Note:
[2019-10-20 21:52] LABS: Epithelial Cells Few HPF (Negative); WBC >50 HPF (0-5)
[2019-10-20 21:53] LABS: Bacteria Many HPF (Negative); Casts 0-2 Coarse Granular LPF (Negative)
[2019-10-20 21:54] LABS: C & S Indicated? C&S Done As Ordered; Crystals Negative HPF (Negative); Mucus Negative (Negative)
[2019-10-20 22:52] VITALS: BP 99/65; PULSE 91; RESP 18; TEMP 37.6; O2SAT 97
[2019-10-21] MEDS: methylPREDNISolone SUCC 40 MG VIAL IVP ×2 (00:09→08:16)
[2019-10-21] MEDS: Normal Saline Flush 10 ML SYR IVP ×2 (00:10→08:13)
[2019-10-21 03:42] VITALS: BP 140/68; PULSE 103; RESP 18; TEMP 36.5; O2SAT 93
[2019-10-21] MEDS: Normal Saline 1,000 ML 150 ML IV ×3 (06:07→20:34)
[2019-10-21] MEDS: Levothyroxine 150 MCG TAB PO (06:07)
[2019-10-21 06:38] LABS: HCT 25.6 % (36.0-46.0); MCH 28.6 pg (27.0-33.0); MCHC 31.3 % (32.0-36.0); MCV 91.4 fL (80-95); MPV 9.6 fL (8.0-11.0); Platelet Count 170 10^3/uL (130-400); RDW 15.8 % (11.7-14.6); WBC 4.76 10^3/uL (4.4-10.8)
[2019-10-21 06:50] LABS: Anion Gap 16.1 mmol/L (3-11); BUN 14 mg/dL (7-18); CO2 19.9 mmol/L (21.0-32.0); CREATININE 1.31 mg/dL (0.55-1.02); Calcium 7.4 mg/dL (8.5-10.1); Chloride 100 mmol/L (98-107); Estimated GFR 41.41 (mL/min/1.73m2); Glucose 282 mg/dL (74-106); Potassium 4.2 mmol/L (3.5-5.1); Sodium 136 mmol/L (136-145)
[2019-10-21 07:53] VITALS: BP 102/56; PULSE 98; RESP 19; TEMP 36.5; O2SAT 96
[2019-10-21 07:55] VITALS: O2SAT 96
[2019-10-21] MEDS: Tiotropium Bromide-Respimat 10 PUFF INH IH (08:09)
[2019-10-21] MEDS: Budesonide/Formoterol 160/4.5 6 GM 60 PUFF INH IH ×2 (08:09→20:34)
[2019-10-21] MEDS: Insulin Aspart 300 UNITS/3 ML PEN SC ×3 (08:14→16:48)
[2019-10-21] MEDS: Cyanocobalamin 500 MCG TAB 1000 MCG PO (08:15)
[2019-10-21] MEDS: Apixaban 5 MG TAB PO ×2 (08:15→20:34)
[2019-10-21] MEDS: Omeprazole 20 MG CAPCR 40 MG PO (08:16)
[2019-10-21] MEDS: Montelukast 10 MG TAB PO (08:16)
[2019-10-21] MEDS: Ferrous Sulfate 325 MG TAB PO (08:16)
--- NOTE | 2019-10-21 09:33 | INITIAL_ITS ---
- If Service Date Differs Date of service: 10/21/19 Time of Service: 09:33 Care Management Initial Assess REASON FOR HOSPITALIZATION:: Fever PAST MEDICAL HISTORY/PAST SURGICAL HISTORY:: Medical History . Acute confusion due to infection (Resolved). Acute UTI (Resolved). Adenoma of pituitary (Chronic). benign; renoved surgically. on steroids and synthroid to replete. Bacteremia (Resolved). Citrobacter. C. difficile diarrhea (Acute). Cancer related pain (Chronic). improved with fentanyl patch. Carpal tunnel syndrome (Acute). Chronic adrenal insufficiency (Acute). Chronic pain (Chronic). Chronic respiratory failure with hypoxia (Chronic). Chronic venous stasis dermatitis (Chronic). COPD (chronic obstructive pulmonary disease) (Chronic). On nocturnal oxygen - 2L prn. Depression (Chronic). Diabetes mellitus (Chronic). Insulin dependent. Discharge planning issues (Resolved). Diverticulosis (Acute). DNI (do not intubate) (Acute). DNR (do not resuscitate) (Acute). Dyslipidemia (Chronic). E. coli bacteremia (Resolved). Fatigue (Acute). Goals of care, counseling/discussion (Acute). History of breast cancer (Chronic). metastatic, with lymphatic spread and bone mets. Hyperlipidemia (Acute). Hypopituitarism (Chronic). Hypothyroidism (Chronic). Influenza B (Acute). Iron deficiency anemia (Acute). Left lower lobe pneumonia (Resolved). Metastatic breast cancer (Chronic). Obesity (Chronic). Obstructive sleep apnea (Chronic). per [facility] Hospital records. Palliative care patient (Chronic). Pneumonia (Acute). POLST (Physician Orders for Life-Sustaining Treatment) (Acute). done 03/26/19; DNR/DNI. Positive blood cultures (Ruled-out). Pulmonary emboli (Inactive). Recurrent urinary tract infection (Acute). Restless leg syndrome (Acute). SOB (shortness of breath) (Resolved). Spinal stenosis (Acute). Stage IV breast cancer in female (Chronic). Toxic metabolic encephalopathy (Resolved). Uncontrolled pain (Resolved). Unsteady gait (Chronic). Urinary incontinence (Acute). UTI (urinary tract infection) (Resolved). Surgical History . H/O bilateral mastectomy (Acute). H/O colonoscopy with polypectomy (Acute). H/O mastectomy (Chronic). bilateral. History of carpal tunnel release of both wrists (Acute). Port-A-Cath in place (Acute). Status post transsphenoidal pituitary resection (Acute) PREVIOUS FUNCTIONAL STATUS/SOCIAL/FAMILY SUPPORTS:: Candace lives in a single family home with her daughter Kiki and her children, in [facility]. She has two daughters who reside locally. She is currently disabled and receives [employer] [facility] highest needs. Kiki is her primary caregiver. Candace utilizes a walker for ambulation, and a wheeled walker for distance. She is dependent on her daughter for transportation to and from appointments. CURRENT FUNCTIONAL STATUS:: Candace was sitting up in a chair when CM met with her. She was pleasant and coopertive and engaged readily with CM. Candace stated that she has been doing well at home since her last admission in August. She shared details of her family life and informed that her younger daughter is going to have a baby in March. That will be Candace's 4th grandchild. Candace also has a new puppy which she enjoys. Candace also shared that she met with Dr. Royal last week. Once again they discussed goals of care. When asked, Candace stated that she has not changed anything on her advanced directives at this time. She did state that she needs to have a conversation with her Oncologist about the safety of having radiation to her hip where she has metastasis The hip has been very painful for quite some time, although Candace shared that her Fentanyl patch has been increased and she is receiving better pain relief. ADVANCE DIRECTIVES:: On file. Kiki is agent Has patient been provided with info about the portal/API?: Yes Did the patient sign up for the portal?: No CODE STATUS:: DNR/DNI INSURANCE COVERAGE / FINANCIAL ISSUES:: Medicare/Medicaid CURRENT HOME/COMMUNITY SERVICES/EQUIPMENT:: Candace has [employer] [facility], highest needs. She uses a walker for ambulation and has home health nursing through [facility] PRIMARY CARE PHYSICIAN:: Nurys Martinez POTENTIAL DISCHARGE NEEDS:: Follow up with PCP and discharge plan of care PATIENT/FAMILY EDUCATION NEEDS:: Discharge plan, limitations, follow up plan, Ask Me Three TRANSPORTATION:: via private vehicle with daughter PLAN:: Candace will be discharged home with a resumption of home health services. She will follow up with her PCP and community providers and discharge plan of care. Candace will transport with her daughter. CM will continue to support patient and family and assess for discharge planning needs. Readmission - Within the Past 30 Days Yes or No: N
[2019-10-21 12:32] LABS: Glucose 387 mg/dL (74-106)
--- NOTE | 2019-10-21 14:31 | PGE_ITS ---
Date of Service Date of service: 10/21/19 Time of Service: 14:32 Assessment and Plan Assessment and plan (1) Recurrent urinary tract infection: Status: Acute Assessment and plan: Cx growing a gram neg lori. Cont Rocephin until final ID and sensitivities available. Has Urology appt scheduled for 10/27 at [facility] (2) Iron deficiency anemia: Status: Acute Assessment and plan: Hgb o 8. Baseline is in the 8's. Monitor. (3) Obesity: Status: Chronic Assessment and plan: Likely a factor in her recurrent UTIs; most likely difficult to maintain adequate hygiene. Qualifiers: Obesity type: due to excess calories Obesity classification: adult class 3 (BMI >= 40) Serious obesity comorbidity presence: with serious comorbidity Body mass index: BMI 50.0-59.9 Qualified Code(s): E66.01 - Morbid (severe) obesity due to excess calories; Z68.43 - Body mass index (BMI) 50.0- 59.9, adult (4) Adrenal insufficiency: Status: Chronic Assessment and plan: Received stress doses of IV solumedrol. Will convert back to her home corticosteroid. (5) COPD (chronic obstructive pulmonary disease): Status: Chronic Assessment and plan: No acute exaceration Cont supplemental O2; 1L at rest. Cont Spiriva. (6) CKD (chronic kidney disease): Status: Acute Assessment and plan: Maintain adequate hydration Avoid nephrotoxins and hypotension Monitor Subjective Subjective Patient reports: no new complaints Interval history since last seen: No further fevers since admission. No acute confusion. Exam Const General: cooperative and no acute distress Nutritional Appearance: obese (morbidly) Orientation: alert and oriented x3 Resp Effort & Inspection: normal respiratory effort Auscultation: clear to auscultation bilaterally Cardio Jugular venous pressure: no JVD Rate: regular rate Rhythm: regular rhythm Heart Sounds: S1 normal and S2 normal GI Inspection: large pannus and obesity Palpation: soft Auscultation: normal bowel sounds Extrem General: edema (nonpitting below the knees with brawny skin discoloration.) Objective Objective Clinical Data: Abnormal lab results 10/20/19 10/20/19 10/20/19 Range/Units 19:00 19:00 19:00 RBC 2.89 L (3.93-5.22) 10^6/uL Hgb 8.2 L (11.2-15.7) g/dL Hct 26.1 L (36.0-46.0) % MCHC 31.4 L (32.0-36.0) % RDW 15.7 H (11.7-14.6) % Absolute Lymphocytes 1.17 L (1.2-3.4) 10^3/uL Carbon Dioxide (21.0-32.0) mmol/L Anion Gap (3-11) mmol/L Creatinine 1.37 H (0.55-1.02) mg/dL Glucose 215 H (74-106) mg/dL Lactate 2.0 H (0.6-1.4) mmol/L Calcium 7.8 L (8.5-10.1) mg/dL AST 126 H (15-37) U/L Alkaline Phosphatase 188 H (46-116) U/L Albumin 2.8 L (3.4-5.0) g/dL Urine Protein (Negative) mg/dL Urine Ketones (Negative) mg/dL Urine Blood (Negative) Ur Leukocyte Esterase (Negative) Urine RBC (0-2) HPF Urine WBC (0-5) HPF 10/20/19 10/21/19 10/21/19 Range/Units 21:15 06:20 06:20 RBC 2.80 L (3.93-5.22) 10^6/uL Hgb 8.0 L (11.2-15.7) g/dL Hct 25.6 L (36.0-46.0) % MCHC 31.3 L (32.0-36.0) % RDW 15.8 H (11.7-14.6) % Absolute Lymphocytes (1.2-3.4) 10^3/uL Carbon Dioxide 19.9 L (21.0-32.0) mmol/L Anion Gap 16.1 H (3-11) mmol/L Creatinine 1.31 H (0.55-1.02) mg/dL Glucose 282 H (74-106) mg/dL Lactate (0.6-1.4) mmol/L Calcium 7.4 L (8.5-10.1) mg/dL AST (15-37) U/L Alkaline Phosphatase (46-116) U/L Albumin (3.4-5.0) g/dL Urine Protein 100 H (Negative) mg/dL Urine Ketones 15 H (Negative) mg/dL Urine Blood Moderate H (Negative) Ur Leukocyte Esterase Moderate H (Negative) Urine RBC 3-5 H (0-2) HPF Urine WBC >50 H (0-5) HPF 10/21/19 Range/Units 12:10 RBC (3.93-5.22) 10^6/uL Hgb (11.2-15.7) g/dL Hct (36.0-46.0) % MCHC (32.0-36.0) % RDW (11.7-14.6) % Absolute Lymphocytes (1.2-3.4) 10^3/uL Carbon Dioxide (21.0-32.0) mmol/L Anion Gap (3-11) mmol/L Creatinine (0.55-1.02) mg/dL Glucose 387 H D (74-106) mg/dL Lactate (0.6-1.4) mmol/L Calcium (8.5-10.1) mg/dL AST (15-37) U/L Alkaline Phosphatase (46-116) U/L Albumin (3.4-5.0) g/dL Urine Protein (Negative) mg/dL Urine Ketones (Negative) mg/dL Urine Blood (Negative) Ur Leukocyte Esterase (Negative) Urine RBC (0-2) HPF Urine WBC (0-5) HPF Vital Signs Temperature 36.5 C 10/21/19 07:53 Temperature Source Temporal Artery Scan 10/21/19 07:53 Pulse 98 H 10/21/19 07:53 Pulse Rhythm Regular 10/21/19 09:23 Respiratory Rate 19 10/21/19 07:53 Respiratory Effort Non-Labored 10/21/19 09:23 Respiratory Depth Normal 10/21/19 09:23 Respiratory Pattern Normal 10/21/19 09:23 Blood Pressure 102/56 L 10/21/19 07:53 Blood Pressure Position Supine 10/20/19 18:44 Pulse Oximetry 96 10/21/19 07:55 Oxygen Delivery Method Nasal Cannula 10/21/19 07:55 Oxygen Flow Rate 1 10/21/19 07:55 Pain Level 8 10/21/19 07:53 Comment 10/20/19 23:49 Intake & Output 10/20/19 10/21/19 10/21/19 23:59 11:59 23:59 Intake Total 450 / 450 1500 / 2740 1240 / 2740 Output Total 1400 / 1700 300 / 1700 Balance 450 / 450 100 / 1040 940 / 1040 Weight 146.057 kg Intake: IV 450 / 450 1000 / 2000 1000 / 2000 Oral 500 / 740 240 / 740 Output: Urine 1400 / 1700 300 / 1700 Other: Urine Color Yellow Yellow Urine Appearance Clear Comment Grossly incontinent. Voiding Methods Bedside Commode Bedside Commode Incontinent Laboratory Results WBC 4.76 10^3/uL (4.4-10.8) 10/21/19 06:20 RBC 2.80 10^6/uL (3.93-5.22) L 10/21/19 06:20 Hgb 8.0 g/dL (11.2-15.7) L 10/21/19 06:20 Hct 25.6 % (36.0-46.0) L 10/21/19 06:20 MCV 91.4 fL (80-95) 10/21/19 06:20 MCH 28.6 pg (27.0-33.0) 10/21/19 06:20 MCHC 31.3 % (32.0-36.0) L 10/21/19 06:20 RDW 15.8 % (11.7-14.6) H 10/21/19 06:20 Plt Count 170 10^3/uL (130-400) 10/21/19 06:20 MPV 9.6 fL (8.0-11.0) 10/21/19 06:20 Immature Gran % 0.2 10/20/19 19:00 Neutrophils % 60.4 10/20/19 19:00 Lymphocytes % 26.2 10/20/19 19:00 Monocytes % 12.8 10/20/19 19:00 Eosinophils % 0.2 10/20/19 19:00 Basophils % 0.2 10/20/19 19:00 Nucleated RBC % 0 % 10/20/19 19:00 Absolute Neutrophils 2.70 10^3/uL (1.2-6.7) 10/20/19 19:00 Absolute Lymphocytes 1.17 10^3/uL (1.2-3.4) L 10/20/19 19:00 Absolute Monocytes 0.57 10^3/uL (0.1-0.8) 10/20/19 19:00 Absolute Eosinophils 0.01 10^3/uL (0.0-0.7) 10/20/19 19:00 Absolute Basophils 0.01 10^3/uL (0.0-0.2) 10/20/19 19:00 Sodium 136 mmol/L (136-145) 10/21/19 06:20 Potassium 4.2 mmol/L (3.5-5.1) 10/21/19 06:20 Chloride 100 mmol/L (98-107) 10/21/19 06:20 Carbon Dioxide 19.9 mmol/L (21.0-32.0) L 10/21/19 06:20 Anion Gap 16.1 mmol/L (3-11) H 10/21/19 06:20 BUN 14 mg/dL (7-18) 10/21/19 06:20 Creatinine 1.31 mg/dL (0.55-1.02) H 10/21/19 06:20 Estimated GFR/1.73 m2 41.41 (mL/min/1.73m2) 10/21/19 06:20 Glucose 387 mg/dL (74-106) H D 10/21/19 12:10 Lactate 2.0 mmol/L (0.6-1.4) H 10/20/19 19:00 Calcium 7.4 mg/dL (8.5-10.1) L 10/21/19 06:20 Total Bilirubin 0.5 mg/dL (0.2-1.0) 10/20/19 19:00 AST 126 U/L (15-37) H 10/20/19 19:00 ALT 31 U/L (14-59) 10/20/19 19:00 Alkaline Phosphatase 188 U/L (46-116) H 10/20/19 19:00 Total Protein 8.0 g/dL (6.4-8.2) 10/20/19 19:00 Albumin 2.8 g/dL (3.4-5.0) L 10/20/19 19:00 Urine Color Yellow (Yellow) 10/20/19 21:15 Urine Clarity Sl cloudy (Clear) 10/20/19 21:15 Urine pH 6.0 (5-8) 10/20/19 21:15 Ur Specific [place] 1.020 (1.005-1.025) 10/20/19 21:15 Urine Protein 100 mg/dL (Negative) H 10/20/19 21:15 Urine Ketones 15 mg/dL (Negative) H 10/20/19 21:15 Urine Blood Moderate (Negative) H 10/20/19 21:15 Urine Nitrite Negative (Negative) 10/20/19 21:15 Urine Bilirubin Negative (Negative) 10/20/19 21:15 Urine Urobilinogen 0.2 EU/dL (Up TO 0.2) 10/20/19 21:15 Ur Leukocyte Esterase Moderate (Negative) H 10/20/19 21:15 Urine RBC 3-5 HPF (0-2) H 10/20/19 21:15 Urine WBC >50 HPF (0-5) H 10/20/19 21:15 Ur Epithelial Cells Few HPF (Negative) 10/20/19 21:15 Urine Crystals Negative HPF (Negative) 10/20/19 21:15 Urine Bacteria Many HPF (Negative) 10/20/19 21:15 Urine Casts 0-2 coarse granular LPF (Negative) 10/20/19 21:15 Urine Mucus Negative (Negative) 10/20/19 21:15 Ur Culture Indicated? C&s done as ordered 10/20/19 21:15 Urine Glucose Negative mg/dL (Negative) 10/20/19 21:15
[2019-10-21] MEDS: Hydrocortisone 10 MG TAB 5 MG PO (14:32)
--- NOTE | 2019-10-21 15:11 | CHAPLAIN ---
Candace explained that she has another UTI. She met yesterday with Dr. Royal for Palliative Care yesterday and said after that meeting she has decided not to have radiation on her hip. Candace's not sure if her daughter Kiki will be down to visit today. I left after Candace received a phone call. I will continue to visit.
[2019-10-21 15:50] VITALS: BP 111/72; PULSE 92; RESP 19; TEMP 36.1; O2SAT 98
[2019-10-21] MEDS: cefTRIAXone 1 GM/50 ML BAG IVPB (17:37)
[2019-10-21 19:05] VITALS: BP 130/74; PULSE 85; RESP 19; TEMP 36.5; O2SAT 100
[2019-10-21 21:47] LABS: COVID-19 RT-PCR UVMMC Result Negative (Negative)
[2019-10-22] VITALS (12 sets, daily range): BP systolic 99–127; BP diastolic 65–77; PULSE 70–83; RESP 15–18; TEMP 35.4–36.8; O2SAT 95–100
[2019-10-22] MEDS: Normal Saline 1,000 ML 150 ML IV (02:50)
[2019-10-22] MEDS: Levothyroxine 150 MCG TAB PO (06:09)
[2019-10-22 06:37] LABS: Abs Immature Grans 0.02 10^3/uL (0.0-0.06); Absolute Basophil Count 0.01 10^3/uL (0.0-0.2); Absolute Eosinophil Count 0.02 10^3/uL (0.0-0.7); Absolute Lymphocyte Count 0.94 10^3/uL (1.2-3.4); Absolute Monocyte Count 0.34 10^3/uL (0.1-0.8); Basophils % 0.3; Eosinophils % 0.6; Immature Grans % 0.6; Lymphocytes % 26.6; MCHC 31.3 % (32.0-36.0); MCV 89.6 fL (80-95); MPV 9.4 fL (8.0-11.0); Monocytes % 9.6; Neutrophils % 62.3; Nucleated RBC 0 %; Platelet Count 157 10^3/uL (130-400); RDW 15.7 % (11.7-14.6); RDW-SD 51.7 fL; WBC 3.53 10^3/uL (4.4-10.8)
[2019-10-22 06:55] LABS: HCT 22.4 % (36.0-46.0)
[2019-10-22 07:05] LABS: BUN 16 mg/dL (7-18); CREATININE 1.06 mg/dL (0.55-1.02); Calcium 7.1 mg/dL (8.5-10.1); Estimated GFR 52.88 (mL/min/1.73m2); Glucose 256 mg/dL (74-106)
[2019-10-22 07:26] LABS: Chloride 103 mmol/L (98-107); Potassium 3.4 mmol/L (3.5-5.1); Sodium 137 mmol/L (136-145)
[2019-10-22] MEDS: Tiotropium Bromide-Respimat 10 PUFF INH IH (07:47)
[2019-10-22] MEDS: Budesonide/Formoterol 160/4.5 6 GM 60 PUFF INH IH ×2 (07:47→19:39)
[2019-10-22] MEDS: Normal Saline Flush 10 ML SYR IVP ×5 (08:14→18:34)
[2019-10-22] MEDS: Cyanocobalamin 500 MCG TAB 1000 MCG PO (09:59)
[2019-10-22] MEDS: Apixaban 5 MG TAB PO ×2 (09:59→19:39)
[2019-10-22] MEDS: Omeprazole 20 MG CAPCR 40 MG PO (09:59)
[2019-10-22] MEDS: Montelukast 10 MG TAB PO (09:59)
[2019-10-22] MEDS: Ferrous Sulfate 325 MG TAB PO (09:59)
[2019-10-22] MEDS: Vancomycin 125 MG CAP PO ×3 (09:59→19:39)
[2019-10-22] MEDS: Hydrocortisone 10 MG TAB 20 MG PO (10:00)
[2019-10-22] MEDS: Potassium Chloride 20 MEQ TABCR 40 MEQ PO (10:00)
[2019-10-22] MEDS: Hydrocortisone SOD SUC. 100 MG VIAL 50 MG IVP (10:01)
[2019-10-22] MEDS: Insulin Aspart 300 UNITS/3 ML PEN SC ×2 (10:12→12:01)
[2019-10-22] MEDS: Acetaminophen 325 MG TAB 650 MG PO (10:40)
--- NOTE | 2019-10-22 11:52 | W.PM.PROGNOT ---
Date of Service Date of service: 10/22/19 Time of Service: 11:53 Assessment and Plan Assessment and plan (1) Recurrent urinary tract infection: Start date: 10/22/19 Start time: 12:00 Status: Acute Assessment and plan: Cx growing enterobacter cloacae resistant only to cefazolin, BCNGTD Afebrile, continue ceftriaxone, day 2 of 5 Has Urology appt scheduled for 10/27 at [facility] (2) Iron deficiency anemia: Start date: 10/22/19 Start time: 12:02 Status: Acute Assessment and plan: Hgb 7 today will transfuse 1 unit and check stools. Monitor. (3) Obesity: Start date: 10/22/19 Start time: 12:04 Status: Chronic Assessment and plan: Likely a factor in her recurrent UTIs; most likely difficult to maintain adequate hygiene. Qualifiers: Obesity type: due to excess calories Obesity classification: adult class 3 (BMI >= 40) Serious obesity comorbidity presence: with serious comorbidity Body mass index: BMI 50.0-59.9 Qualified Code(s): E66.01 - Morbid (severe) obesity due to excess calories; Z68.43 - Body mass index (BMI) 50.0-59.9, adult (4) Adrenal insufficiency: Start date: 10/22/19 Start time: 12:04 Status: Chronic Assessment and plan: Received stress doses of IV solumedrol. Will convert back to her home corticosteroid. (5) COPD (chronic obstructive pulmonary disease): Start date: 10/22/19 Start time: 12:04 Status: Chronic Assessment and plan: No acute exaceration Cont supplemental O2; 1L at rest. Cont Spiriva. (6) C. difficile colitis: Start date: 10/22/19 Start time: 12:05 Status: Inactive Assessment and plan: Due to recurrent cdiff per ID recommend vanco for prophylaxis when being treated with antibiotics. No diarrhea at this time will treat prophylactically. May need stool transplant in future if recurrent positive cdiff. (7) CKD (chronic kidney disease): Start date: 10/22/19 Start time: 12:04 Status: Acute Assessment and plan: Maintain adequate hydration Avoid nephrotoxins and hypotension Monitor above case discussed with Dr. Ibrahim who is in agreement Subjective Subjective Patient reports: afebrile and other Interval history since last seen: Afebrile, c/o chills and weakness. Will give stress dose steroids and transfuse 1 unit PRBC for hemoglobin 7. Hematest all stools. Though she denies blood, likely from CKD and chronic anticoagulation. Denies CP, SOB, N/V/D. Exam Const General: cooperative and no acute distress Nutritional Appearance: obese (morbidly) Orientation: alert and oriented x3 Resp Effort & Inspection: normal respiratory effort Auscultation: clear to auscultation bilaterally Cardio Jugular venous pressure: no JVD Rate: regular rate Rhythm: regular rhythm Heart Sounds: S1 normal and S2 normal GI Inspection: large pannus and obesity Palpation: soft Auscultation: normal bowel sounds Extrem General: edema (nonpitting below the knees with brawny skin discoloration.) Objective Objective Clinical Data: Abnormal lab results 10/21/19 10/22/19 10/22/19 Range/Units 12:10 06:10 06:10 WBC 3.53 L (4.4-10.8) 10^3/uL RBC 2.50 L (3.93-5.22) 10^6/uL Hgb 7.0 L (11.2-15.7) g/dL Hct 22.4 L (36.0-46.0) % MCHC 31.3 L (32.0-36.0) % RDW 15.7 H (11.7-14.6) % Absolute Lymphocytes 0.94 L (1.2-3.4) 10^3/uL Potassium 3.4 L (3.5-5.1) mmol/L Creatinine 1.06 H (0.55-1.02) mg/dL Glucose 387 H D 256 H D (74-106) mg/dL Calcium 7.1 L (8.5-10.1) mg/dL Crossmatch 10/22/19 Range/Units 08:14 WBC (4.4-10.8) 10^3/uL RBC (3.93-5.22) 10^6/uL Hgb (11.2-15.7) g/dL Hct (36.0-46.0) % MCHC (32.0-36.0) % RDW (11.7-14.6) % Absolute Lymphocytes (1.2-3.4) 10^3/uL Potassium (3.5-5.1) mmol/L Creatinine (0.55-1.02) mg/dL Glucose (74-106) mg/dL Calcium (8.5-10.1) mg/dL Crossmatch See Detail Vital Signs Temperature 36.7 C 10/22/19 11:30 Temperature Source Tympanic 10/22/19 07:20 Pulse 80 10/22/19 11:30 Pulse Rhythm Regular 10/21/19 20:30 Respiratory Rate 15 10/22/19 11:30 Respiratory Effort Non-Labored 10/21/19 20:30 Respiratory Depth Normal 10/21/19 20:30 Respiratory Pattern Normal 10/21/19 20:30 Blood Pressure 125/73 10/22/19 11:30 Blood Pressure Position Supine 10/20/19 18:44 Pulse Oximetry 97 10/22/19 11:30 Oxygen Delivery Method Room Air 10/22/19 11:30 Oxygen Flow Rate 0 10/22/19 11:30 Pain Level 8 10/22/19 08:12 Comment 10/22/19 02:17 Intake & Output 10/21/19 10/21/19 10/22/19 11:59 23:59 11:59 Intake Total 1500 / 3930.0 2430.0 / 3930.0 2240 / 2240 Output Total 1400 / 2350 950 / 2350 200 / 200 Balance 100 / 1580.0 1480.0 / 1580.0 2040 / 2040 Intake: IV 1000 / 2950.0 1950.0 / 2950.0 1999 / 1999 Oral 500 / 980 480 / 980 240 / 240 Output: Urine 1400 / 2350 950 / 2350 200 / 200 Other: Urine Color Yellow Yellow Yellow Urine Appearance Clear Clear Clear Urine Odor Normal Normal Comment Grossly incontinent. Stool Size Large Stool Characteristics Soft Brown Voiding Methods Bedside Commode Bedside Commode Bedside Commode Incontinent Laboratory Results WBC 3.53 10^3/uL (4.4-10.8) L 10/22/19 06:10 RBC 2.50 10^6/uL (3.93-5.22) L 10/22/19 06:10 Hgb 7.0 g/dL (11.2-15.7) L 10/22/19 06:10 Hct 22.4 % (36.0-46.0) L 10/22/19 06:10 MCV 89.6 fL (80-95) 10/22/19 06:10 MCH 28.0 pg (27.0-33.0) 10/22/19 06:10 MCHC 31.3 % (32.0-36.0) L 10/22/19 06:10 RDW 15.7 % (11.7-14.6) H 10/22/19 06:10 Plt Count 157 10^3/uL (130-400) 10/22/19 06:10 MPV 9.4 fL (8.0-11.0) 10/22/19 06:10 Immature Gran % 0.6 10/22/19 06:10 Neutrophils % 62.3 10/22/19 06:10 Lymphocytes % 26.6 10/22/19 06:10 Monocytes % 9.6 10/22/19 06:10 Eosinophils % 0.6 10/22/19 06:10 Basophils % 0.3 10/22/19 06:10 Nucleated RBC % 0 % 10/22/19 06:10 Absolute Neutrophils 2.20 10^3/uL (1.2-6.7) 10/22/19 06:10 Absolute Lymphocytes 0.94 10^3/uL (1.2-3.4) L 10/22/19 06:10 Absolute Monocytes 0.34 10^3/uL (0.1-0.8) 10/22/19 06:10 Absolute Eosinophils 0.02 10^3/uL (0.0-0.7) 10/22/19 06:10 Absolute Basophils 0.01 10^3/uL (0.0-0.2) 10/22/19 06:10 Sodium 137 mmol/L (136-145) 10/22/19 06:10 Potassium 3.4 mmol/L (3.5-5.1) L 10/22/19 06:10 Chloride 103 mmol/L (98-107) 10/22/19 06:10 Carbon Dioxide 24.0 mmol/L (21.0-32.0) 10/22/19 06:10 Anion Gap 10.0 mmol/L (3-11) 10/22/19 06:10 BUN 16 mg/dL (7-18) 10/22/19 06:10 Creatinine 1.06 mg/dL (0.55-1.02) H 10/22/19 06:10 Estimated GFR/1.73 m2 52.88 (mL/min/1.73m2) 10/22/19 06:10 Glucose 256 mg/dL (74-106) H D 10/22/19 06:10 Lactate 2.0 mmol/L (0.6-1.4) H 10/20/19 19:00 Calcium 7.1 mg/dL (8.5-10.1) L 10/22/19 06:10 Total Bilirubin 0.5 mg/dL (0.2-1.0) 10/20/19 19:00 AST 126 U/L (15-37) H 10/20/19 19:00 ALT 31 U/L (14-59) 10/20/19 19:00 Alkaline Phosphatase 188 U/L (46-116) H 10/20/19 19:00 Total Protein 8.0 g/dL (6.4-8.2) 10/20/19 19:00 Albumin 2.8 g/dL (3.4-5.0) L 10/20/19 19:00 Urine Color Yellow (Yellow) 10/20/19 21:15 Urine Clarity Sl cloudy (Clear) 10/20/19 21:15 Urine pH 6.0 (5-8) 10/20/19 21:15 Ur Specific [place] 1.020 (1.005-1.025) 10/20/19 21:15 Urine Protein 100 mg/dL (Negative) H 10/20/19 21:15 Urine Ketones 15 mg/dL (Negative) H 10/20/19 21:15 Urine Blood Moderate (Negative) H 10/20/19 21:15 Urine Nitrite Negative (Negative) 10/20/19 21:15 Urine Bilirubin Negative (Negative) 10/20/19 21:15 Urine Urobilinogen 0.2 EU/dL (Up TO 0.2) 10/20/19 21:15 Ur Leukocyte Esterase Moderate (Negative) H 10/20/19 21:15 Urine RBC 3-5 HPF (0-2) H 10/20/19 21:15 Urine WBC >50 HPF (0-5) H 10/20/19 21:15 Ur Epithelial Cells Few HPF (Negative) 10/20/19 21:15 Urine Crystals Negative HPF (Negative) 10/20/19 21:15 Urine Bacteria Many HPF (Negative) 10/20/19 21:15 Urine Casts 0-2 coarse granular LPF (Negative) 10/20/19 21:15 Urine Mucus Negative (Negative) 10/20/19 21:15 Ur Culture Indicated? C&s done as ordered 10/20/19 21:15 Urine Glucose Negative mg/dL (Negative) 10/20/19 21:15 COVID-19 PCR Negative (Negative) 10/20/19 23:14 Nasopharyn COVID-19 PCR Not Applicable 10/20/19 23:14 Ref Test Perform Site [facility] lab 10/20/19 23:14 Patient ABO/Rh A Positive 10/22/19 08:14 Antibody Screen Negative 10/22/19 08:14 Crossmatch See Detail 10/22/19 08:14
--- NOTE | 2019-10-22 12:51 | CMPROGNOTE_ITS ---
- If Service Date Differs Date of service: 10/22/19 Time of Service: 12:51 Care Management Progress Note S/O:Candace was sitting up in bed when CM met with her. She shared that she is not having a very good day as she is very tired. Candace said that she sat up in a chair for several hours in the middle of the night because she couldn't sleep. Candace's H&H has dropped a bit so she received a unit of blood today. CM updated Candace's daughter Kiki. At Kiki's request, CM also contacted Dr. Walden, Candace's Oncologist, and faxed clinical information from this admission. A: Candace is a 59 year old woman admitted to [facility] with fever and a UTI on 10/20/19. P:Candace will be discharged home with a resumption of home health services. She will follow up with her PCP and community providers and discharge plan of care. Candace will transport with her daughter. CM will continue to support patient and family and assess for discharge planning needs.
--- NOTE | 2019-10-22 13:10 | IN_ITS ---
Date of service: 10/22/19 Time of Service: 13:10 PT Notes Visit Reasons: FEVER Physical Therapy Inpatient Initial Evaluation Dates: 10/22/2019 Referring Doctor: Ami Sanchez NP PT Orders: PT CONSULT: Eval/Treat Precautions: Fall. Standard. Activity as tolerated. Patient Profile/Admitting Diagnosis: Candace is a 59-year-old female with chroninc adrenal insufficicency and matastatic breast carcinoma who presented to the ED on 10/20/2019 with chief presentation of fever. Patient is diagnose with fever from suspected UTI with referral for skilled physical therapy services in order to address resulting impairments in mobility performance. PMHX: Medical History Acute confusion due to infection (Resolved) Acute UTI (Resolved) Adenoma of pituitary (Chronic) benign; renoved surgically on steroids and synthroid to replete Bacteremia (Resolved) Citrobacter C. difficile diarrhea (Acute) Cancer related pain (Chronic) improved with fentanyl patch Carpal tunnel syndrome (Acute) Chronic adrenal insufficiency (Acute) Chronic pain (Chronic) Chronic respiratory failure with hypoxia (Chronic) Chronic venous stasis dermatitis (Chronic) COPD (chronic obstructive pulmonary disease) (Chronic) On nocturnal oxygen - 2L prn Depression (Chronic) Diabetes mellitus (Chronic) Insulin dependent Discharge planning issues (Resolved) Diverticulosis (Acute) DNI (do not intubate) (Acute) DNR (do not resuscitate) (Acute) Dyslipidemia (Chronic) E. coli bacteremia (Resolved) Fatigue (Acute) Goals of care, counseling/discussion (Acute) History of breast cancer (Chronic) metastatic, with lymphatic spread and bone mets Hyperlipidemia (Acute) Hypopituitarism (Chronic) Hypothyroidism (Chronic) Influenza B (Acute) Iron deficiency anemia (Acute) Left lower lobe pneumonia (Resolved) Metastatic breast cancer (Chronic) Obesity (Chronic) Obstructive sleep apnea (Chronic) per [facility] records Palliative care patient (Chronic) Pneumonia (Acute) POLST (Physician Orders for Life-Sustaining Treatment) (Acute) done 03/26/19; DNR/DNI Positive blood cultures (Ruled-out) Pulmonary emboli (Inactive) Recurrent urinary tract infection (Acute) Restless leg syndrome (Acute) SOB (shortness of breath) (Resolved) Spinal stenosis (Acute) Stage IV breast cancer in female (Chronic) Toxic metabolic encephalopathy (Resolved) Uncontrolled pain (Resolved) Unsteady gait (Chronic) Urinary incontinence (Acute) UTI (urinary tract infection) (Resolved) Surgical History H/O bilateral mastectomy (Acute) H/O colonoscopy with polypectomy (Acute) H/O mastectomy (Chronic) bilateral History of carpal tunnel release of both wrists (Acute) Port-A-Cath in place (Acute) Status post transsphenoidal pituitary resection (Acute) Social History/Home Situation: Candace lives with her daughter in [place], [place] in a two-story house with a ramp to enter with rails on both sides. Patient has stairs to the second floor of the house but has everything she needs on the first floor. She is disabled. She has 2 daughters locally. She receives choices for care highest needs, and her daughter Kiki is her primary provider for 12 years now. Kiki provides assistance with bathing and does meal preapration and assistance with lower body dressing. She was independent with front-wheeled walker for in-house ambulation and uses the 4-wheeled walker for outdoor ambulation. She has to walk about 80-90 feet to get to her car. She is dependent on her daughter for transportation to and from appointments. Daughter also provides assistance with bathing patient's back due to body habitus. Equipment Owned/DME: Bariatric FWW, bariatric hospital bed, bariatric recliner, bariatric front wheeled walker, new bariatric wheelchair with seat and back cushions Subjective: Candace reports that she has only gotten 2 hours of sleep the prior night. She is very much fatigued and refused any walking activity as she has just transferred from the bed to her recliner less than half hour ago. She is agreeable to walking tomorrow if everything goes well. Objective: General Observation: Candace is receiving a unit of blood via her [id number]-unel. Hemosiderin staining observed in bilateral distal legs from CVI. Abdominal panniculus. Mental Status: Alert and oriented x 4 Pain: 7-88/10 in right hip with muscle testing ROM: Right Upper Extremity: Shoulder flexion WFL. Elbow flexion WFL. Hands/wrist and fingers are WFL. Left Upper Extremity: Shoulder flexion WFL. Elbow flexion WFL. Hands/wrist and fingers are WFL. Right Lower Extremity: Patient is able to bend hip to about 20 degrees beyond 90 while seated at edge of bed. Knee flexion WFL. Dorsiflexion/plantarflexion WFL. Left Lower Extremity: Patient is able to bend hip to about 10 degrees beyond 90 while seated at edge of bed. Knee flexion WFL. Dorsiflexion/plantarflexion WFL. Strength: Right Upper Extremity: Shoulder flexion 4/5. Elbow flexion 4/5. Cassandra Consultant strong and functional Left Upper Extremity: Shoulder flexion 4/5. Elbow flexion 4/5. Cassandra Consultant strong and functional. Right Lower Extremity: Hip flexion 3-/5. Knee flexion 4/-5. Knee extension 4- /5. Ankle dorsiflexion/plantarflexion 3+/5. Left Lower Extremity: Hip flexion 3-/5. Knee flexion 4-/5. Knee extension 4-/5. Ankle dorsiflexion/plantarflexion 4-/5. Bed Mobility/Transfers: Per patient, there were 2 caregivers who assisted her from bed to chair earlier this afternoon. Gait: Refused. Hgb 7.0 as of 6 AM this morning. Being transfused with 1 PRBC when this PT came in to see patient. Balance: Static Sitting: Good Dynamic Sitting: Good Static Standing: NT Dynamic Standing: NT Special Tests: Mobility Limitations Standardized Measure [facility] AM-PAC 6 clicks Basic Mobility Inpatient Short Form: Raw Score: Right CMS Score: Informed Consent/Education: Patient instructed in purpose of PT consult and plan of care. Assessment: Candace demonstrates need for an assistive ambulatory device for all mobility ADL performance, minimal breathlessness, right hip pain limiting ambulation tolerance, and balance impairment resulting from admitting diagnoses and co-morbidities. Candace is a 59-year-old female with chronic adrenal insufficiency and matastatic breast carcinoma who presented to the ED on 10/20/2019 with chief presentation of fever. Patient is diagnose with fever from suspected UTI with referral for skilled physical therapy services in order to address resulting impairments in mobility performance. Patient presents with clinical signs and symptoms consistent with current/admitting diagnoses that have resulted to mobility limitations, gait instability, generalized weakness, and impairment of motor control as demonstrated by the following impairment level findings: 1. Decreased strength to both hip major muscle groups 2. Impaired sitting/standing balance 3. Impaired activity tolerance 4. Limitation of joint range of motion in B hips Impairments are contributing to the following functional limitations: 1. Dependent bed mobility skills 2. Increased dependence with transfers 3. Inability to safely ambulate without assistive device and physical assistance 4. Increase completion time for mobility ADL performance 5. Increased fall risk 6. Inability to negotiate steps alone safely Patient is assessed as a 48208 moderate complexity based on the following: History: 59-year-old female with impairment level findings, functional limitations, and past medical history as indicated above Examination: Demonstrable impairment in strength, balance, and mobility level with underlying impairments and functional limitations as documented above Presentation:Evolving Decision Makin moderate complexity Goals: Goals X 1 week 1. Supine-Sit SBA 2. Sit-Supine SBA 3. Sit-Stand SBA 4. Stand-Sit SBA 5. Bed-Chair SBA 6. Chair-Bed SBA 7. SBA indoor ambulation using FWW for at least 150 feet without dyspnea and 2/10 pain in R hip 8. Independent with home exercise program 9. Static/dynamic standing balance/tolerance good Plan of Care/Treatment Plan: 1-2x/day, 7 days/week x 1 week. Plan of care has been reviewed with the ELECTRICAL ENGINEERING PROFESSOR providing the service under Physical Therapy direction. Initiate Physical Therapy intervention for strengthening, bed mobility, transfers, gait, stairs, balance training, use of assistive device. DISCHARGE RECOMMENDATIONS: Patient will benefit from continued home health PT services in order to progress mobility level using four-wheeled walker, assess home safety, identify additional equipment needs, and cotninue with a functional maintenance program that will increase ability of patient to remain at home with daughter. No equipment needs at this time. TREATMENT CODE/TIME: 72608 x 20 minutes beginning at 13:10 PM. Thank you very much for this referral. Allie Miguel PT, DPT, CLT [facility] Inpatient PT at [place], [place]
--- NOTE | 2019-10-22 14:30 | DM INPTCON_ITS ---
Date of service: 10/22/19 Time of Service: 14:31 Diabetes Inpatient Consult DESCRIPTION/ASSESSMENT: 59 year old female admitted with reoccurring UTI, fever with multiple medical conditions including COPD, morbid obesity, COPD and stage 4 breast cancer. She is also a pallative care patient and is cared for at home by her daughters. I received Diabetes Consult for aCndace, however, she declined education as she has received it by insurance underwriter sales several times at previous admissions. Most recent A1C: 8.5% (06/29/19) indicating poorly controlled DM, however number may reflect multiple UTI infections. BS since admitted > 200 mg/dl, most likely due to infection. Following Diabetic Diet and meeting nutrient needs at this time. Home meds include Humulin U 500 70 units q AM, 40 units q noon, 40 units q pm. INTERVENTION: Candace refused Diabetes Education as she has received education at previous admissions. Daughter manages her diabetes at home. Diabetic Diet PLAN: continue current meal plan will be available prn Time Spent in Nutritional Counseling and Treatment: 5 min spent face to face
[2019-10-22] MEDS: Hydrocortisone 10 MG TAB 5 MG PO (15:08)
[2019-10-22] MEDS: Normal Saline 500 ML 30 ML IV (18:34)
[2019-10-22] MEDS: cefTRIAXone 1 GM/50 ML BAG IVPB (18:34)
[2019-10-22 20:05] LABS: HCT 23.8 % (36.0-46.0); HGB 7.6 g/dL (11.2-15.7)
[2019-10-23] MEDS: Vancomycin 125 MG CAP PO ×4 (02:13→19:52)
[2019-10-23] MEDS: Levothyroxine 150 MCG TAB PO (05:38)
[2019-10-23 07:31] VITALS: BP 120/71; PULSE 66; RESP 19; TEMP 36; O2SAT 98
[2019-10-23 07:38] LABS: HCT 25.2 % (36.0-46.0); HGB 8.3 g/dL (11.2-15.7); MCH 28.7 pg (27.0-33.0); MCHC 32.9 % (32.0-36.0); MCV 87.2 fL (80-95); MPV 9.6 fL (8.0-11.0); Platelet Count 187 10^3/uL (130-400); RBC 2.89 10^6/uL (3.93-5.22); RDW 15.7 % (11.7-14.6); WBC 3.75 10^3/uL (4.4-10.8)
[2019-10-23 07:53] LABS: Anion Gap 11.1 mmol/L (3-11); BUN 13 mg/dL (7-18); CO2 23.9 mmol/L (21.0-32.0); CREATININE 0.86 mg/dL (0.55-1.02); Calcium 7.5 mg/dL (8.5-10.1); Chloride 103 mmol/L (98-107); Glucose 103 mg/dL (74-106); Potassium 3.1 mmol/L (3.5-5.1); Sodium 138 mmol/L (136-145)
[2019-10-23] MEDS: Tiotropium Bromide-Respimat 10 PUFF INH IH (08:30)
[2019-10-23] MEDS: Budesonide/Formoterol 160/4.5 6 GM 60 PUFF INH IH ×2 (08:30→19:53)
[2019-10-23] MEDS: Omeprazole 20 MG CAPCR 40 MG PO (09:11)
[2019-10-23] MEDS: Apixaban 5 MG TAB PO ×2 (09:11→19:53)
[2019-10-23] MEDS: Hydrocortisone 10 MG TAB 20 MG PO (09:11)
[2019-10-23] MEDS: Potassium Chloride 20 MEQ TABCR 40 MEQ PO ×2 (09:11→14:56)
[2019-10-23] MEDS: Ferrous Sulfate 325 MG TAB PO (09:11)
[2019-10-23] MEDS: Montelukast 10 MG TAB PO (09:11)
[2019-10-23] MEDS: Ondansetron O.D.T. 4 MG TABEF 8 MG PO ×2 (09:12→16:09)
[2019-10-23] MEDS: fentaNYL 25 MCG PATCH TD (09:12)
[2019-10-23] MEDS: Cyanocobalamin 500 MCG TAB 1000 MCG PO (09:12)
[2019-10-23] MEDS: fentaNYL 100 MCG PATCH TD (09:13)
--- NOTE | 2019-10-23 09:46 | PT.INTREAT ---
Date of service: 10/23/19 Time of Service: 09:46 PT Notes Visit Reasons: FEVER Inpatient Physical Therapy Treatment Note [facility] Date: 10/23/2019 PRECAUTIONS: Fall, activity as tolerated SUBJECTIVE: Candace is agreeable to participating in PT, although she indicates that she is having severe nausea this morning due to increased pain. She would like to try to do what she can. OBJECTIVE: PAIN: Patient complained of right hip pain at rest, increasing with ther ex BED MOBILITY/TRANSFERS: Deferred due to pain and nausea GAIT: Deferred due to pain and nausea THEREX: Patient was instructed in several light lower extremity strengthening exercises, while in a long sitting position, as per flow sheet. Patient reports increased pain leading to increased nausea, and requests to hold further ther ex at this point. ASSESSMENT: Patient's participation in activity level is limited today due to pain and nausea. Patient would benefit from a global strengthening as well as participation in gait and transfer training for improved mobility and progression towards increased independence with daily functional tasks. She continues to demonstrate decreased strength and mobility on right lower extremity versus left lower extremity due to hip pain. PLAN: Continue instructed in global strengthening and begin gait and transfer training for progression towards baseline level of function. TREATMENT CODE/TIME: 8 minutes; [id number]
[2019-10-23] MEDS: Hydrocortisone SOD SUC. 100 MG VIAL 25 MG IVP (11:39)
[2019-10-23] MEDS: Normal Saline Flush 10 ML SYR IVP ×3 (11:40→18:25)
--- NOTE | 2019-10-23 11:40 | PGE_ITS ---
Date of Service Date of service: 10/23/19 Time of Service: 11:40 Assessment and Plan Assessment and plan (1) Recurrent urinary tract infection: Status: Acute Assessment and plan: Cx growing enterobacter cloacae resistant only to cefazolin, BCNGTD Afebrile, continue ceftriaxone, day 3 of 5 [place] [facility] [place] cultures no growth to date (2) Iron deficiency anemia: Status: Acute Assessment and plan: Received one unit PRBC yesterday. Feeling better and appearing improved. Hemoglobin 8.3, no stools at this time. Unlikely rectal bleeding. Monitor cbc (3) Obesity: Start date: 10/23/19 Start time: 11:49 Status: Chronic Assessment and plan: Likely a factor in her recurrent UTIs; most likely difficult to maintain adequate hygiene. Qualifiers: Obesity type: due to excess calories Obesity classification: adult class 3 (BMI >= 40) Serious obesity comorbidity presence: with serious comorbidity Body mass index: BMI 50.0-59.9 Qualified Code(s): E66.01 - Morbid (severe) obesity due to excess calories; Z68.43 - Body mass index (BMI) 50.0-59.9, adult (4) Adrenal insufficiency: Start date: 10/23/19 Start time: 11:49 Status: Chronic Assessment and plan: Received stress doses of IV solumedrol. Continue home corticosteroid. (5) COPD (chronic obstructive pulmonary disease): Start date: 10/23/19 Start time: 11:49 Status: Chronic Assessment and plan: No acute exaceration Cont supplemental O2; 1L at rest. Cont Spiriva. (6) C. difficile colitis: Start date: 10/23/19 Start time: 11:49 Status: Inactive Assessment and plan: Due to recurrent cdiff per ID recommend vanco for prophylaxis when being treated with antibiotics. No diarrhea at this time will treat prophylactically. May need stool transplant in future if recurrent positive cdiff. (7) CKD (chronic kidney disease): Start date: 10/23/19 Start time: 11:51 Status: Acute Assessment and plan: Maintain adequate hydration Avoid nephrotoxins and hypotension Monitor above case discussed with Dr. Huynh who is in agreement Qualifiers: Chronic kidney disease stage: stage 3 (moderate) Qualified Code(s): N18.3 - Chronic kidney disease, stage 3 (moderate) Subjective Subjective Patient reports: feels better Interval history since last seen: Feeling slightly improved. Sitting up in chair. Appears less pale and more perky today compared to yesterday. Will add meds for bowel movement. Exam Const General: cooperative and no acute distress Nutritional Appearance: obese (morbidly) Orientation: alert and oriented x3 Resp Effort & Inspection: normal respiratory effort Auscultation: clear to auscultation bilaterally Cardio Jugular venous pressure: no JVD Rate: regular rate Rhythm: regular rhythm Heart Sounds: S1 normal and S2 normal GI Inspection: large pannus and obesity Palpation: soft Auscultation: normal bowel sounds Extrem General: edema (nonpitting below the knees with brawny skin discoloration.) Objective Objective Clinical Data: Abnormal lab results 10/22/19 10/22/19 10/23/19 Range/Units 08:14 19:45 06:50 WBC (4.4-10.8) 10^3/uL RBC (3.93-5.22) 10^6/uL Hgb 7.6 L (11.2-15.7) g/dL Hct 23.8 L (36.0-46.0) % RDW (11.7-14.6) % Potassium 3.1 L (3.5-5.1) mmol/L Anion Gap 11.1 H (3-11) mmol/L Calcium 7.5 L (8.5-10.1) mg/dL Crossmatch See Detail 10/23/19 Range/Units 06:50 WBC 3.75 L (4.4-10.8) 10^3/uL RBC 2.89 L (3.93-5.22) 10^6/uL Hgb 8.3 L (11.2-15.7) g/dL Hct 25.2 L (36.0-46.0) % RDW 15.7 H (11.7-14.6) % Potassium (3.5-5.1) mmol/L Anion Gap (3-11) mmol/L Calcium (8.5-10.1) mg/dL Crossmatch Vital Signs Temperature 36 C L 10/23/19 07:31 Temperature Source Tympanic 10/23/19 07:31 Pulse 66 10/23/19 07:31 Pulse Rhythm Regular 10/22/19 20:00 Respiratory Rate 19 08/22/20 07:31 Respiratory Effort Non-Labored 10/22/19 20:00 Respiratory Depth Normal 10/22/19 20:00 Respiratory Pattern Normal 10/22/19 20:00 Blood Pressure 120/71 10/23/19 07:31 Blood Pressure Position Supine 10/20/19 18:44 Pulse Oximetry 98 10/23/19 07:31 Oxygen Delivery Method Room Air 10/23/19 07:31 Oxygen Flow Rate 0 10/23/19 07:31 Pain Level 0 10/23/19 07:31 Comment 10/22/19 02:17 Intake & Output 10/22/19 10/22/19 10/23/19 11:59 23:59 11:59 Intake Total 2260 / 3160.5 900.5 / 3160.5 720 / 720 Output Total 200 / 900 700 / 900 200 / 200 Balance 2060 / 2260.5 200.5 / 2260.5 520 / 520 Intake: IV 2020 / 0.5 40.5 / 2060.5 Oral 240 / 720 480 / 720 720 / 720 Blood Product 250 / 250 Rbc Leuko Reduced Unit 250 / 250 [id number] Other 130 / 130 Rbc Leuko Reduced Unit 130 / 130 [id number] Output: Urine 200 / 900 700 / 900 200 / 200 Other: Urine Color Yellow Straw Yellow Urine Appearance Clear Clear Clear Urine Odor Normal Normal Comment pt was also incontinent Stool Size Large Small Stool Characteristics Soft Soft Brown Formed Brown Voiding Methods Bedside Commode Bedside Commode Diaper Incontinent Incontinent Laboratory Results WBC 3.75 10^3/uL (4.4-10.8) L 10/23/19 06:50 RBC 2.89 10^6/uL (3.93-5.22) L 10/23/19 06:50 Hgb 8.3 g/dL (11.2-15.7) L 10/23/19 06:50 Hct 25.2 % (36.0-46.0) L 10/23/19 06:50 MCV 87.2 fL (80-95) 10/23/19 06:50 MCH 28.7 pg (27.0-33.0) 10/23/19 06:50 MCHC 32.9 % (32.0-36.0) 10/23/19 06:50 RDW 15.7 % (11.7-14.6) H 10/23/19 06:50 Plt Count 187 10^3/uL (130-400) 10/23/19 06:50 MPV 9.6 fL (8.0-11.0) 10/23/19 06:50 Immature Gran % 0.6 10/22/19 06:10 Neutrophils % 62.3 10/22/19 06:10 Lymphocytes % 26.6 10/22/19 06:10 Monocytes % 9.6 10/22/19 06:10 Eosinophils % 0.6 10/22/19 06:10 Basophils % 0.3 10/22/19 06:10 Nucleated RBC % 0 % 10/22/19 06:10 Absolute Neutrophils 2.20 10^3/uL (1.2-6.7) 10/22/19 06:10 Absolute Lymphocytes 0.94 10^3/uL (1.2-3.4) L 10/22/19 06:10 Absolute Monocytes 0.34 10^3/uL (0.1-0.8) 10/22/19 06:10 Absolute Eosinophils 0.02 10^3/uL (0.0-0.7) 10/22/19 06:10 Absolute Basophils 0.01 10^3/uL (0.0-0.2) 10/22/19 06:10 Sodium 138 mmol/L (136-145) 10/23/19 06:50 Potassium 3.1 mmol/L (3.5-5.1) L 10/23/19 06:50 Chloride 103 mmol/L (98-107) 10/23/19 06:50 Carbon Dioxide 23.9 mmol/L (21.0-32.0) 10/23/19 06:50 Anion Gap 11.1 mmol/L (3-11) H 10/23/19 06:50 BUN 13 mg/dL (7-18) 10/23/19 06:50 Creatinine 0.86 mg/dL (0.55-1.02) 10/23/19 06:50 Estimated GFR/1.73 m2 >= 60.00 (mL/min/1.73m2) 10/23/19 06:50 Glucose 103 mg/dL (74-106) D 10/23/19 06:50 Lactate 2.0 mmol/L (0.6-1.4) H 10/20/19 19:00 Calcium 7.5 mg/dL (8.5-10.1) L 10/23/19 06:50 Magnesium 2.0 mg/dL (1.8-2.4) 10/23/19 06:50 Total Bilirubin 0.5 mg/dL (0.2-1.0) 10/20/19 19:00 AST 126 U/L (15-37) H 10/20/19 19:00 ALT 31 U/L (14-59) 10/20/19 19:00 Alkaline Phosphatase 188 U/L (46-116) H 10/20/19 19:00 Total Protein 8.0 g/dL (6.4-8.2) 10/20/19 19:00 Albumin 2.8 g/dL (3.4-5.0) L 10/20/19 19:00 Urine Color Yellow (Yellow) 10/20/19 21:15 Urine Clarity Sl cloudy (Clear) 10/20/19 21:15 Urine pH 6.0 (5-8) 10/20/19 21:15 Ur Specific [place] 1.020 (1.005-1.025) 10/20/19 21:15 Urine Protein 100 mg/dL (Negative) H 10/20/19 21:15 Urine Ketones 15 mg/dL (Negative) H 10/20/19 21:15 Urine Blood Moderate (Negative) H 10/20/19 21:15 Urine Nitrite Negative (Negative) 10/20/19 21:15 Urine Bilirubin Negative (Negative) 10/20/19 21:15 Urine Urobilinogen 0.2 EU/dL (Up TO 0.2) 10/20/19 21:15 Ur Leukocyte Esterase Moderate (Negative) H 10/20/19 21:15 Urine RBC 3-5 HPF (0-2) H 10/20/19 21:15 Urine WBC >50 HPF (0-5) H 10/20/19 21:15 Ur Epithelial Cells Few HPF (Negative) 10/20/19 21:15 Urine Crystals Negative HPF (Negative) 10/20/19 21:15 Urine Bacteria Many HPF (Negative) 10/20/19 21:15 Urine Casts 0-2 coarse granular LPF (Negative) 10/20/19 21:15 Urine Mucus Negative (Negative) 10/20/19 21:15 Ur Culture Indicated? C&s done as ordered 10/20/19 21:15 Urine Glucose Negative mg/dL (Negative) 10/20/19 21:15 COVID-19 PCR Negative (Negative) 10/20/19 23:14 Nasopharyn COVID-19 PCR Not Applicable 10/20/19 23:14 Ref Test Perform Site [facility] lab 10/20/19 23:14 Patient ABO/Rh A Positive 10/22/19 08:14 Antibody Screen Negative 10/22/19 08:14 Crossmatch See Detail 10/22/19 08:14
[2019-10-23] MEDS: Docusate Sodium 100 MG CAP PO (11:59)
[2019-10-23] MEDS: Polyethylene Glycol 3350 17 GM PACKET PO (12:00)
[2019-10-23] MEDS: Insulin Aspart 300 UNITS/3 ML PEN SC ×2 (12:12→17:07)
[2019-10-23] MEDS: Hydrocortisone 10 MG TAB 5 MG PO (14:45)
[2019-10-23 16:33] VITALS: BP 119/59; PULSE 72; RESP 19; TEMP 36.2; O2SAT 97
[2019-10-23] MEDS: cefTRIAXone 1 GM/50 ML BAG IVPB (17:07)
[2019-10-23] MEDS: Melatonin 3 MG TAB PO (20:15)
--- NOTE | 2019-10-23 20:29 | CMPROGNOTE_ITS ---
- If Service Date Differs Date of service: 10/23/19 Time of Service: 20:29 Care Management Progress Note S/O: Candace was sitting up in her chair when CM met with her. She reported that she was not feeling her best today. She stated that she had eaten lunch recently and she was planning on resting this afternoon. CM will continue to follow. A: Candace is a 59 year old woman admitted to [facility] with fever and a UTI on 10/20/19. P:Candace will be discharged home with a resumption of home health services. She will follow up with her PCP and community providers and discharge plan of care. Candace will transport with her daughter. CM will continue to support patient and family and assess for discharge planning needs.
[2019-10-24 00:09] VITALS: BP 131/67; PULSE 77; RESP 20; TEMP 36.3; O2SAT 99
[2019-10-24] MEDS: Vancomycin 125 MG CAP PO ×4 (02:15→20:20)
[2019-10-24] MEDS: Levothyroxine 150 MCG TAB PO (05:39)
[2019-10-24 07:28] VITALS: BP 162/62; PULSE 67; RESP 19; TEMP 36.9; O2SAT 98
[2019-10-24] MEDS: Docusate Sodium 100 MG CAP PO (08:31)
[2019-10-24] MEDS: Hydrocortisone 10 MG TAB 20 MG PO (08:31)
[2019-10-24] MEDS: Ferrous Sulfate 325 MG TAB PO (08:31)
[2019-10-24] MEDS: Montelukast 10 MG TAB PO (08:32)
[2019-10-24] MEDS: Apixaban 5 MG TAB PO ×2 (08:32→20:20)
[2019-10-24] MEDS: Omeprazole 20 MG CAPCR 40 MG PO (08:32)
[2019-10-24] MEDS: Cyanocobalamin 500 MCG TAB 1000 MCG PO (08:32)
[2019-10-24] MEDS: Normal Saline Flush 10 ML SYR IVP ×2 (08:32→17:44)
[2019-10-24] MEDS: Polyethylene Glycol 3350 17 GM PACKET PO (08:32)
[2019-10-24 08:57] LABS: MCH 28.3 pg (27.0-33.0); MCV 88.3 fL (80-95); MPV 9.3 fL (8.0-11.0); Platelet Count 191 10^3/uL (130-400); RBC 2.83 10^6/uL (3.93-5.22); RDW-SD 51.5 fL
[2019-10-24 09:12] LABS: Anion Gap 9.3 mmol/L (3-11); BUN 9 mg/dL (7-18); CO2 25.7 mmol/L (21.0-32.0); CREATININE 0.75 mg/dL (0.55-1.02); Calcium 7.8 mg/dL (8.5-10.1); Chloride 103 mmol/L (98-107); Glucose 126 mg/dL (74-106); Potassium 3.7 mmol/L (3.5-5.1); Sodium 138 mmol/L (136-145)
--- NOTE | 2019-10-24 10:30 | PT.INTREAT ---
Date of service: 10/24/19 Time of Service: 10:30 PT Notes Visit Reasons: FEVER Inpatient Physical Therapy Treatment Note [facility] Date: 10/24/2019 PRECAUTIONS: Fall, activity as tolerated SUBJECTIVE: Candace is agreeable to participating in PT, although she indicates that she continues to experience nausea this morning. She also reports that she did not sleep well last night and is very tired today. She would like to try to do what she can. OBJECTIVE: PAIN: Patient complained of right hip pain at rest, increasing with ther ex BED MOBILITY/TRANSFERS: Deferred due to pain and nausea GAIT: Deferred due to pain and nausea THEREX: Patient was instructed in several light lower extremity strengthening exercises, while in a long sitting, and seated position, as per flow sheet. Patient reports increased pain and fatigue, and requests to hold further ther ex at this point. ASSESSMENT: Patient's participation in activity level is limited today due to pain, nausea, and fatigue. Patient would benefit from a global strengthening as well as participation in gait and transfer training for improved mobility and progression towards increased independence with daily functional tasks. She continues to demonstrate decreased strength and mobility on right lower extremity versus left lower extremity due to hip pain. PLAN: Continue instructed in global strengthening and begin gait and transfer training for progression towards baseline level of function. TREATMENT CODE/TIME:15 minutes; [id number]
[2019-10-24] MEDS: Ondansetron O.D.T. 4 MG TABEF 8 MG PO (11:11)
[2019-10-24] MEDS: Tiotropium Bromide-Respimat 10 PUFF INH IH (11:17)
[2019-10-24] MEDS: Budesonide/Formoterol 160/4.5 6 GM 60 PUFF INH IH ×2 (11:18→20:20)
--- NOTE | 2019-10-24 12:23 | DI.RAD_ITS ---
EXAM: XR CHEST 2V PA LATERAL CLINICAL HISTORY: SOB, feeling of fullness. TECHNIQUE: COMPARISON: CR,XR XR PORTABLE CHEST AP from 10/20/2019 FINDINGS: There is a Port-A-Cath in position on the right. Tip of the catheter overlies the superior vena cava . Cardiac enlargement noted. Lungs are grossly clear. No pleural effusion. IMPRESSION: No evidence of acute process. RADIATION DOSE DELIVERED: Total DLP
--- NOTE | 2019-10-24 12:23 | DI.RAD_ITS ---
EXAM: XR ABDOMEN FLAT UPRIGHT CLINICAL HISTORY: bloating, fullness, SOB TECHNIQUE: COMPARISON: CR,RF RF BARIUM ENEMA from 07/30/2019 FINDINGS: Three views were obtained. There are vascular clips overlying the lower thorax and upper abdomen riana aterally. The abdomen is incompletely visualized. Bowel gas pattern grossly unremarkable as seen. IMPRESSION: No evidence of acute process. RADIATION DOSE DELIVERED: Total DLP
--- NOTE | 2019-10-24 12:36 | DI.VRAD_ITS ---
PROCEDURE INFORMATION: Exam: XR Abdomen, 2 Views Exam date and time: 10/24/2019 11:49 AM Age: 59 years old Clinical indication: Other: Bloating, fullness, SOB TECHNIQUE: Imaging protocol: XR of the abdomen. Views: 2 Views. COMPARISON: CT ABDOMEN PELVIS W 10/05/2019 1:09 PM FINDINGS: Heart/Mediastinum: Cardiomegaly. Lungs: The visualized lungs are clear. Gastrointestinal tract: Non-specific, partially visualized bowel gas pattern. Intraperitoneal space: Surgical clips overlie upper abdomen/bilateral lower axilla. Vasculature: Stable right chest port. Bones/joints: No acute osseous findings. Other findings: Overpenetration limits the evaluation somewhat. IMPRESSION: Limited evaluation of the abdomen. No definitive acute findings. Surgical clips overlie the upper abdomen/bilateral lower axilla. Stable right chest port. Cardiomegaly. Dictated and Authenticated by: Vince Tilley MD. Ordering:ROMAN Mueller MD
--- NOTE | 2019-10-24 12:38 | DI.VRAD_ITS ---
PROCEDURE INFORMATION: Exam: XR Chest, 2 Views Exam date and time: 10/24/2019 11:46 AM Age: 59 years old Clinical indication: Other: SOB, feeling of fullness TECHNIQUE: Imaging protocol: XR of the chest Views: 2 views. COMPARISON: CR XR PORTABLE CHEST AP 10/20/2019 8:11 PM FINDINGS: Tubes, catheters and devices: Stable right chest port. Lungs: No focal airspace consolidation. Pleural space: No pneumothorax or pleural effusion. Heart/Mediastinum: Stable cardiomegaly. Bones/joints: Unchanged osseous structures. Soft tissues: Surgical clips are visualized over the right axilla and lower right chest. IMPRESSION: No acute findings. Dictated and Authenticated by: Vince Tilley MD. Ordering:ROMAN Mueller MD
[2019-10-24 12:54] LABS: Bilirubin Negative (Negative); Blood Trace-lysed (Negative); Clarity Clear (Clear); Glucose Negative (Negative); Ketones 15 mg/dL (Negative); Leukocyte Esterase Small (Negative); Nitrite Negative (Negative); Specific Gravity 1.015 (1.005-1.025); Urobilinogen 0.2 EU/dL (Up TO 0.2); pH 6.5 (5-8)
--- NOTE | 2019-10-24 13:05 | W.PM.PROGNOT ---
Date of Service Date of service: 10/24/19 Time of Service: 13:05 Assessment and Plan Assessment and plan (1) Recurrent urinary tract infection: Start date: 10/24/19 Start time: 13:55 Status: Acute Assessment and plan: Cx growing enterobacter cloacae resistant only to cefazolin, BCNGTD Afebrile, continue ceftriaxone, day 4 of 5 [place] [facility] [place] growth to date Repeat u/a today (2) Iron deficiency anemia: Start date: 10/24/19 Start time: 13:56 Status: Acute Assessment and plan: H/H Continue to monitor. (3) Obesity: Start date: 10/24/19 Start time: 13:56 Status: Chronic Assessment and plan: Likely a factor in her recurrent UTIs; most likely difficult to maintain adequate hygiene. Qualifiers: Obesity type: due to excess calories Obesity classification: adult class 3 (BMI >= 40) Serious obesity comorbidity presence: with serious comorbidity Body mass index: BMI 50.0-59.9 Qualified Code(s): E66.01 - Morbid (severe) obesity due to excess calories; Z68.43 - Body mass index (BMI) 50.0-59.9, adult (4) Adrenal insufficiency: Start date: 10/24/19 Start time: 13:56 Status: Chronic Assessment and plan: Received stress doses of IV solumedrol weaned down now Continue home corticosteroid. (5) COPD (chronic obstructive pulmonary disease): Start date: 10/24/19 Start time: 14:12 Status: Chronic Assessment and plan: No acute exaceration Cont supplemental O2; 1L at rest. Cont Spiriva. (6) C. difficile colitis: Start date: 10/24/19 Start time: 14:46 Status: Inactive Assessment and plan: Due to recurrent cdiff per ID recommend vanco for prophylaxis when being treated with antibiotics. No diarrhea at this time will treat prophylactically. May need stool transplant in future if recurrent positive cdiff. (7) CKD (chronic kidney disease): Start date: 10/24/19 Start time: 14:46 Status: Acute Assessment and plan: Maintain adequate hydration Avoid nephrotoxins and hypotension Monitor above case discussed with Dr. Huynh who is in agreement Qualifiers: Chronic kidney disease stage: stage 3 (moderate) Qualified Code(s): N18.3 - Chronic kidney disease, stage 3 (moderate) Subjective Subjective Patient reports: other Interval history since last seen: Feeling ok. States unable to fully take deep breath.CXR negative for any acute abnormality, KUB only revealing for cardiomegaly. IS ordered, will try small dose lasix. Otherwise feeling better. Denies CP, SOB but states can't fully take breath. Exam Const General: cooperative and no acute distress Nutritional Appearance: obese (morbidly) Orientation: alert and oriented x3 Resp Effort & Inspection: normal respiratory effort Auscultation: clear to auscultation bilaterally Cardio Jugular venous pressure: no JVD Rate: regular rate Rhythm: regular rhythm Heart Sounds: S1 normal and S2 normal GI Inspection: large pannus and obesity Palpation: soft Auscultation: normal bowel sounds Extrem General: edema (nonpitting below the knees with brawny skin discoloration.) Objective Objective Clinical Data: Abnormal lab results 10/24/19 10/24/19 10/24/19 Range/Units 08:30 08:30 12:45 WBC 3.30 L (4.4-10.8) 10^3/uL RBC 2.83 L (3.93-5.22) 10^6/uL Hgb 8.0 L (11.2-15.7) g/dL Hct 25.0 L (36.0-46.0) % RDW 16.0 H (11.7-14.6) % Glucose 126 H (74-106) mg/dL Calcium 7.8 L (8.5-10.1) mg/dL Urine Protein Trace H (Negative) mg/dL Urine Ketones 15 H (Negative) mg/dL Urine Blood Trace-lysed H (Negative) Ur Leukocyte Esterase Small H (Negative) Vital Signs Temperature 36.9 C 10/24/19 07:28 Temperature Source Temporal Artery Scan 10/24/19 07:28 Pulse 67 10/24/19 07:28 Pulse Rhythm Regular 10/23/19 20:00 Respiratory Rate 19 10/24/19 07:28 Respiratory Effort Non-Labored 10/23/19 20:00 Respiratory Depth Normal 10/23/19 20:00 Respiratory Pattern Normal 10/23/19 20:00 Blood Pressure 162/62 H 10/24/19 07:28 Blood Pressure Position Supine 10/20/19 18:44 Pulse Oximetry 98 10/24/19 07:28 Oxygen Delivery Method Room Air 10/24/19 07:28 Oxygen Flow Rate 0 10/24/19 07:28 Pain Level 10 10/24/19 12:41 Comment 10/22/19 02:17 Intake & Output 10/23/19 10/24/19 10/24/19 23:59 11:59 23:59 Intake Total 354 / 1344 550 / 550 Output Total 200 / 600 Balance 154 / 744 550 / 550 Intake: IV 114 / 134 Oral 240 / 1210 550 / 550 Output: Urine 200 / 600 Other: Urine Color Yellow Urine Appearance Clear Comment Void x1 in the bedside commode. RN unable to determine urine amount; urine mixed with stool. mixed with stool Stool Occult Blood Negative Stool Size Moderate Small Stool Characteristics Soft Soft Formed Formed Brown Brown Voiding Methods Bedside Commode Bedside Commode Incontinent Incontinent Laboratory Results WBC 3.30 10^3/uL (4.4-10.8) L 10/24/19 08:30 RBC 2.83 10^6/uL (3.93-5.22) L 10/24/19 08:30 Hgb 8.0 g/dL (11.2-15.7) L 10/24/19 08:30 Hct 25.0 % (36.0-46.0) L 10/24/19 08:30 MCV 88.3 fL (80-95) 10/24/19 08:30 MCH 28.3 pg (27.0-33.0) 10/24/19 08:30 MCHC 32.0 % (32.0-36.0) 10/24/19 08:30 RDW 16.0 % (11.7-14.6) H 10/24/19 08:30 Plt Count 191 10^3/uL (130-400) 10/24/19 08:30 MPV 9.3 fL (8.0-11.0) 10/24/19 08:30 Immature Gran % 0.6 10/22/19 06:10 Neutrophils % 62.3 10/22/19 06:10 Lymphocytes % 26.6 10/22/19 06:10 Monocytes % 9.6 10/22/19 06:10 Eosinophils % 0.6 10/22/19 06:10 Basophils % 0.3 10/22/19 06:10 Nucleated RBC % 0 % 10/22/19 06:10 Absolute Neutrophils 2.20 10^3/uL (1.2-6.7) 10/22/19 06:10 Absolute Lymphocytes 0.94 10^3/uL (1.2-3.4) L 10/22/19 06:10 Absolute Monocytes 0.34 10^3/uL (0.1-0.8) 10/22/19 06:10 Absolute Eosinophils 0.02 10^3/uL (0.0-0.7) 10/22/19 06:10 Absolute Basophils 0.01 10^3/uL (0.0-0.2) 10/22/19 06:10 Sodium 138 mmol/L (136-145) 10/24/19 08:30 Potassium 3.7 mmol/L (3.5-5.1) 10/24/19 08:30 Chloride 103 mmol/L (98-107) 10/24/19 08:30 Carbon Dioxide 25.7 mmol/L (21.0-32.0) 10/24/19 08:30 Anion Gap 9.3 mmol/L (3-11) 10/24/19 08:30 BUN 9 mg/dL (7-18) 10/24/19 08:30 Creatinine 0.75 mg/dL (0.55-1.02) 10/24/19 08:30 Estimated GFR/1.73 m2 >= 60.00 (mL/min/1.73m2) 10/24/19 08:30 Glucose 126 mg/dL (74-106) H 10/24/19 08:30 Lactate 2.0 mmol/L (0.6-1.4) H 10/20/19 19:00 Calcium 7.8 mg/dL (8.5-10.1) L 10/24/19 08:30 Magnesium 2.0 mg/dL (1.8-2.4) 10/23/19 06:50 Total Bilirubin 0.5 mg/dL (0.2-1.0) 10/20/19 19:00 AST 126 U/L (15-37) H 10/20/19 19:00 ALT 31 U/L (14-59) 10/20/19 19:00 Alkaline Phosphatase 188 U/L (46-116) H 10/20/19 19:00 Total Protein 8.0 g/dL (6.4-8.2) 10/20/19 19:00 Albumin 2.8 g/dL (3.4-5.0) L 10/20/19 19:00 Urine Color Yellow (Yellow) 10/24/19 12:45 Urine Clarity Clear (Clear) 10/24/19 12:45 Urine pH 6.5 (5-8) 10/24/19 12:45 Ur Specific [place] 1.015 (1.005-1.025) 10/24/19 12:45 Urine Protein Trace mg/dL (Negative) H 10/24/19 12:45 Urine Ketones 15 mg/dL (Negative) H 10/24/19 12:45 Urine Blood Trace-lysed (Negative) H 10/24/19 12:45 Urine Nitrite Negative (Negative) 10/24/19 12:45 Urine Bilirubin Negative (Negative) 10/24/19 12:45 Urine Urobilinogen 0.2 EU/dL (Up TO 0.2) 10/24/19 12:45 Ur Leukocyte Esterase Small (Negative) H 10/24/19 12:45 Urine RBC 3-5 HPF (0-2) H 10/20/19 21:15 Urine WBC >50 HPF (0-5) H 10/20/19 21:15 Ur Epithelial Cells Few HPF (Negative) 10/20/19 21:15 Urine Crystals Negative HPF (Negative) 10/20/19 21:15 Urine Bacteria Many HPF (Negative) 10/20/19 21:15 Urine Casts 0-2 coarse granular LPF (Negative) 10/20/19 21:15 Urine Mucus Negative (Negative) 10/20/19 21:15 Ur Culture Indicated? C&s done as ordered 10/20/19 21:15 Urine Glucose Negative mg/dL (Negative) 10/24/19 12:45 COVID-19 PCR Negative (Negative) 10/20/19 23:14 Nasopharyn COVID-19 PCR Not Applicable 10/20/19 23:14 Ref Test Perform Site [facility] lab 10/20/19 23:14 Patient ABO/Rh A Positive 10/22/19 08:14 Antibody Screen Negative 10/22/19 08:14 Crossmatch See Detail 10/22/19 08:14
[2019-10-24 13:08] LABS: Bacteria Moderate HPF (Negative); C & S Indicated? No/Sq. Contamination; Casts Negative LPF (Negative); Crystals Negative HPF (Negative); Epithelial Cells Moderate HPF (Negative); Mucus Negative (Negative); Other Cells Negative (Negative)
[2019-10-24] MEDS: Hydrocortisone 10 MG TAB 5 MG PO (14:04)
[2019-10-24] MEDS: Furosemide 20 MG/2 ML VIAL IVP (14:04)
[2019-10-24] MEDS: fentaNYL 25 MCG PATCH TD (14:04)
[2019-10-24 15:34] VITALS: BP 120/74; PULSE 80; RESP 17; TEMP 35.3; O2SAT 99
--- NOTE | 2019-10-24 16:19 | PDOC.CMPRO ---
- If Service Date Differs Date of service: 10/24/19 Time of Service: 16:19 Care Management Progress Note S/O: Per report, Candace is feeling ok today, but feels that she is unable to take a full, deep breath. She also reported not sleeping much as she has had significant chronic pack pain. The provider recommended scheduling pain medication prior to her going to bed in order to maintain pain control and get a good night's rest. CM will continue to follow. A: Candace is a 59 year old woman admitted to [facility] with fever and a UTI on 10/20/19. P:Candace will be discharged home with a resumption of home health services. She will follow up with her PCP and community providers and discharge plan of care. Candace will transport with her daughter. CM will continue to support patient and family and assess for discharge planning needs.
[2019-10-24] MEDS: Insulin Aspart 300 UNITS/3 ML PEN SC (16:54)
[2019-10-24] MEDS: Normal Saline 500 ML 30 ML IV (17:44)
[2019-10-24] MEDS: cefTRIAXone 1 GM/50 ML BAG IVPB (17:45)
[2019-10-24] MEDS: Melatonin 3 MG TAB PO (20:20)
[2019-10-25 00:25] VITALS: BP 121/73; PULSE 69; RESP 21; TEMP 36.3; O2SAT 97
[2019-10-25] MEDS: Vancomycin 125 MG CAP PO ×4 (02:15→20:20)
[2019-10-25] MEDS: Levothyroxine 150 MCG TAB PO (06:19)
[2019-10-25 07:16] LABS: HCT 25.8 % (36.0-46.0); HGB 8.2 g/dL (11.2-15.7); MCH 28.4 pg (27.0-33.0); MCHC 31.8 % (32.0-36.0); MCV 89.3 fL (80-95); MPV 9.5 fL (8.0-11.0); Platelet Count 217 10^3/uL (130-400); RBC 2.89 10^6/uL (3.93-5.22); RDW 16.1 % (11.7-14.6); RDW-SD 52.2 fL; WBC 3.37 10^3/uL (4.4-10.8)
[2019-10-25 07:24] VITALS: BP 122/73; PULSE 70; RESP 20; TEMP 36.1; O2SAT 100
[2019-10-25 07:28] LABS: Anion Gap 9.8 mmol/L (3-11); BUN 7 mg/dL (7-18); CO2 26.2 mmol/L (21.0-32.0); CREATININE 0.83 mg/dL (0.55-1.02); Calcium 7.7 mg/dL (8.5-10.1); Chloride 102 mmol/L (98-107); Glucose 93 mg/dL (74-106); Potassium 3.4 mmol/L (3.5-5.1); Sodium 138 mmol/L (136-145)
[2019-10-25] MEDS: Tiotropium Bromide-Respimat 10 PUFF INH IH (08:28)
[2019-10-25] MEDS: Budesonide/Formoterol 160/4.5 6 GM 60 PUFF INH IH ×2 (08:29→20:21)
[2019-10-25] MEDS: Hydrocortisone 10 MG TAB 20 MG PO (09:23)
[2019-10-25] MEDS: Montelukast 10 MG TAB PO (09:25)
[2019-10-25] MEDS: Apixaban 5 MG TAB PO ×2 (09:26→20:19)
[2019-10-25] MEDS: Ferrous Sulfate 325 MG TAB PO (09:26)
[2019-10-25] MEDS: Omeprazole 20 MG CAPCR 40 MG PO (09:26)
[2019-10-25] MEDS: Cyanocobalamin 500 MCG TAB 1000 MCG PO (09:26)
[2019-10-25] MEDS: Potassium Chloride 20 MEQ TABCR PO (10:43)
[2019-10-25] MEDS: Ondansetron O.D.T. 4 MG TABEF 8 MG PO (11:06)
--- NOTE | 2019-10-25 13:31 | CMPROGNOTE_ITS ---
- If Service Date Differs Date of service: 10/25/19 Time of Service: 13:31 Care Management Progress Note S/O: Candace was sitting up in a chair when CM met with her. As always, she was pleasant and appeared to be in good spirits. Candace share that she is tired as she has not been sleeping well. She stated that someone (another patient) was vomiting last night and the sounds were disturbing. The provider has indicated that Candace will likely be discharged home tomorrow. CM has updated Kiki, her da tyreeer, and will notify Chuy ELI. A: Candace is a 59 year old woman admitted to [facility] with fever and a UTI on 10/20/19. P:Candace will be discharged home with a resumption of home health services. She wi ll follow up with her PCP and community providers and discharge plan of care. Candace will transport with her daughter. CM will continue to support patient and family and assess for discharge planning needs.
[2019-10-25] MEDS: Hydrocortisone 10 MG TAB 5 MG PO (14:19)
--- NOTE | 2019-10-25 14:55 | PT.INTREAT ---
Date of service: 10/25/19 Time of Service: 15:00 PT Notes Visit Reasons: FEVER Inpatient Physical Therapy Treatment Note [facility] Date: 10/25/2019 SUBJECTIVE: Candace reports that she is tired. She reports not sleeping well and just wants to rest. I feel sleeping is more important than exercising right now. She reports going to commode to urinate frequently t/o the day. OBJECTIVE: [] THEREX: she was agreeable to exercise this am. She performed a global LE strengthening routine, see flowsheet for specific ex details. Refused ex this pm x 2. ASSESSMENT: tolerated ex this am. Pain in right hip seemed to limited her some in regards to how many reps she did. PLAN: continue with PT POC. TREATMENT CODE/TIME: 15 min this am. [id number].
[2019-10-25 15:50] VITALS: BP 115/72; PULSE 64; RESP 18; TEMP 36.1; O2SAT 97
--- NOTE | 2019-10-25 16:07 | CHAPLAIN ---
I had a long visit with Candace today. She thinks she will be discharged tomorrow. She said she really hasn't slept well since she's been here and is looking forward to sleeping in her chair at home. She told me about her dogs, her daughter's , and shared other personal history. She said she isn't as able to deal with pain and discomfort since her cancer treatments. She prays everyday for one more day, and said she is approaching live day to day these days.
--- NOTE | 2019-10-25 16:28 | W.PM.PROGNOT ---
Date of Service Date of service: 10/25/19 Time of Service: 16:29 Assessment and Plan Assessment and plan (1) Recurrent urinary tract infection: Status: Acute Assessment and plan: Urine Cx growing enterobacter cloacae resistant only to cefazolin. Blood cultures with no growth to date. Remains afebrile. Ceftriaxone course to be complete after 1800 dose today. Repeat UA yesterday with squamous contamination. [place] app[place] [facility] [place]. (2) Iron deficiency anemia: Status: Acute Assessment and plan: Hgb stable at 8.2. (3) Obesity: Status: Chronic Assessment and plan: Thought to be contributing to recurrent UTIs with difficulty maintaining personal hygiene. Qualifiers: Obesity type: due to excess calories Obesity classification: adult class 3 (BMI >= 40) Serious obesity comorbidity presence: with serious comorbidity Body mass index: BMI 50.0-59.9 Qualified Code(s): E66.01 - Morbid (severe) obesity due to excess calories; Z68.43 - Body mass index (BMI) 50.0-59.9, adult (4) Adrenal insufficiency: Status: Chronic Assessment and plan: Received stress doses of IV solumedrol weaned down now Continue home corticosteroid. (5) COPD (chronic obstructive pulmonary disease): Status: Chronic Assessment and plan: Not in acute exacerbation. Continue O2 at 1 lpm. Continue home spirivia. (6) C. difficile colitis: Status: Inactive Assessment and plan: Recurrent cdiff, per ID recommend vanco for prophylaxis when being treated with antibiotics. No diarrhea at this time, continue to treat prophylactically. May need stool transplant in future if recurrent positive cdiff. (7) CKD (chronic kidney disease): Status: Acute Assessment and plan: Creatinine improved from baseline at 0.83. Continue to maintain adequate hydration Avoid nephrotoxins and hypotension. Qualifiers: Chronic kidney disease stage: stage 3 (moderate) Qualified Code(s): N18.3 - Chronic kidney disease, stage 3 (moderate) (8) Discharge planning issues: Status: Acute Assessment and plan: Her antibiotic course will be complete tonight at 1800. Discharge home tomorrow. Candace is aware and in agreement with the plan. Subjective Subjective Interval history since last seen: Candace reports that she is feeling well, she denies any urinary symptoms. She is eating and drinking and tolerating her diet. She denies abdominal pain, nausea or vomiting. She has remained afebrile. She denies CP/pressure, palpitations, SOB, coughing, wheezing. She states, I think my UTI is gone. Discussed with her daughter via telephone. Exam Narrative Exam Narrative: General: very pleasant 59 year old female, overweight, sitting up in the recliner with feet elevated. Alert and oriented. HEENT: normocephalic, atraumatic, pupils equal and round, EOMI, edentulous, mucous membranes moist. Neck: supple. Cardiovascular: heart has regular rate and rhythm, no murmur appreciated. Respiratory: respiratons appear even and unlabored, lung sounds clear bilaterally. GI: large, round abdomen, +BS, abdomen soft, nontender on palpation, nondistended. Extremities: brown discoloration to BLEs consistent with vascular changes, mild, nonpitting edema to BLEs. Objective Objective Clinical Data: Abnormal lab results 10/25/19 10/25/19 Range/Units 06:30 06:30 WBC 3.37 L (4.4-10.8) 10^3/uL RBC 2.89 L (3.93-5.22) 10^6/uL Hgb 8.2 L (11.2-15.7) g/dL Hct 25.8 L (36.0-46.0) % MCHC 31.8 L (32.0-36.0) % RDW 16.1 H (11.7-14.6) % Potassium 3.4 L (3.5-5.1) mmol/L Calcium 7.7 L (8.5-10.1) mg/dL Vital Signs Temperature 36.1 C L 10/25/19 07:24 Temperature Source Temporal Artery Scan 10/25/19 07:24 Pulse 70 10/25/19 07:24 Pulse Rhythm Regular 10/25/19 08:45 Respiratory Rate 20 10/25/19 07:24 Respiratory Effort Non-Labored 10/25/19 08:45 Respiratory Depth Normal 10/25/19 08:45 Respiratory Pattern Normal 10/25/19 08:45 Blood Pressure 122/73 10/25/19 07:24 Blood Pressure Position Supine 10/20/19 18:44 Pulse Oximetry 100 10/25/19 07:24 Oxygen Delivery Method Room Air 10/25/19 07:24 Oxygen Flow Rate 0 10/25/19 07:24 Pain Level 0 10/25/19 07:24 Comment 10/25/19 00:25 Intake & Output 10/24/19 10/25/19 10/25/19 23:59 11:59 23:59 Intake Total 1270.5 / 2120.5 240 / 480 240 / 480 Output Total 300 / 300 Balance 1270.5 / 2120.5 -60 / 180 240 / 180 Intake: IV 70.5 / 120.5 Oral 1200 / 2000 240 / 480 240 / 480 Output: Urine 300 / 300 Other: Urine Color Yellow Yellow Urine Appearance Clear Clear Urine Odor Normal Normal Comment incontinent, large amount Stool Size Moderate Copious Stool Characteristics Soft Liquid Formed Mucoid Brown Brown Voiding Methods Bedside Commode Bedside Commode Incontinent Incontinent Laboratory Results WBC 3.37 10^3/uL (4.4-10.8) L 10/25/19 06:30 RBC 2.89 10^6/uL (3.93-5.22) L 10/25/19 06:30 Hgb 8.2 g/dL (11.2-15.7) L 10/25/19 06:30 Hct 25.8 % (36.0-46.0) L 10/25/19 06:30 MCV 89.3 fL (80-95) 10/25/19 06:30 MCH 28.4 pg (27.0-33.0) 10/25/19 06:30 MCHC 31.8 % (32.0-36.0) L 10/25/19 06:30 RDW 16.1 % (11.7-14.6) H 10/25/19 06:30 Plt Count 217 10^3/uL (130-400) 10/25/19 06:30 MPV 9.5 fL (8.0-11.0) 10/25/19 06:30 Immature Gran % 0.6 10/22/19 06:10 Neutrophils % 62.3 10/22/19 06:10 Lymphocytes % 26.6 10/22/19 06:10 Monocytes % 9.6 10/22/19 06:10 Eosinophils % 0.6 10/22/19 06:10 Basophils % 0.3 10/22/19 06:10 Nucleated RBC % 0 % 10/22/19 06:10 Absolute Neutrophils 2.20 10^3/uL (1.2-6.7) 10/22/19 06:10 Absolute Lymphocytes 0.94 10^3/uL (1.2-3.4) L 10/22/19 06:10 Absolute Monocytes 0.34 10^3/uL (0.1-0.8) 10/22/19 06:10 Absolute Eosinophils 0.02 10^3/uL (0.0-0.7) 10/22/19 06:10 Absolute Basophils 0.01 10^3/uL (0.0-0.2) 10/22/19 06:10 Sodium 138 mmol/L (136-145) 10/25/19 06:30 Potassium 3.4 mmol/L (3.5-5.1) L 10/25/19 06:30 Chloride 102 mmol/L (98-107) 10/25/19 06:30 Carbon Dioxide 26.2 mmol/L (21.0-32.0) 10/25/19 06:30 Anion Gap 9.8 mmol/L (3-11) 10/25/19 06:30 BUN 7 mg/dL (7-18) 10/25/19 06:30 Creatinine 0.83 mg/dL (0.55-1.02) 10/25/19 06:30 Estimated GFR/1.73 m2 >= 60.00 (mL/min/1.73m2) 10/25/19 06:30 Glucose 93 mg/dL (74-106) 10/25/19 06:30 Lactate 2.0 mmol/L (0.6-1.4) H 10/20/19 19:00 Calcium 7.7 mg/dL (8.5-10.1) L 10/25/19 06:30 Magnesium 2.0 mg/dL (1.8-2.4) 10/23/19 06:50 Total Bilirubin 0.5 mg/dL (0.2-1.0) 10/20/19 19:00 AST 126 U/L (15-37) H 10/20/19 19:00 ALT 31 U/L (14-59) 10/20/19 19:00 Alkaline Phosphatase 188 U/L (46-116) H 10/20/19 19:00 Total Protein 8.0 g/dL (6.4-8.2) 10/20/19 19:00 Albumin 2.8 g/dL (3.4-5.0) L 10/20/19 19:00 Urine Color Yellow (Yellow) 10/24/19 12:45 Urine Clarity Clear (Clear) 10/24/19 12:45 Urine pH 6.5 (5-8) 10/24/19 12:45 Ur Specific [place] 1.015 (1.005-1.025) 10/24/19 12:45 Urine Protein Trace mg/dL (Negative) H 10/24/19 12:45 Urine Ketones 15 mg/dL (Negative) H 10/24/19 12:45 Urine Blood Trace-lysed (Negative) H 10/24/19 12:45 Urine Nitrite Negative (Negative) 10/24/19 12:45 Urine Bilirubin Negative (Negative) 10/24/19 12:45 Urine Urobilinogen 0.2 EU/dL (Up TO 0.2) 10/24/19 12:45 Ur Leukocyte Esterase Small (Negative) H 10/24/19 12:45 Urine RBC 5-10 HPF (0-2) H 10/24/19 12:45 Urine WBC 10-20 HPF (0-5) H 10/24/19 12:45 Ur Epithelial Cells Moderate HPF (Negative) 10/24/19 12:45 Urine Crystals Negative HPF (Negative) 10/24/19 12:45 Urine Bacteria Moderate HPF (Negative) 10/24/19 12:45 Urine Casts Negative LPF (Negative) 10/24/19 12:45 Urine Mucus Negative (Negative) 10/24/19 12:45 Urine Other Negative (Negative) 10/24/19 12:45 Ur Culture Indicated? No/sq. contamination 10/24/19 12:45 Urine Glucose Negative mg/dL (Negative) 10/24/19 12:45 COVID-19 PCR Negative (Negative) 10/20/19 23:14 Nasopharyn COVID-19 PCR Not Applicable 10/20/19 23:14 Ref Test Perform Site [facility] lab 10/20/19 23:14 Patient ABO/Rh A Positive 10/22/19 08:14 Antibody Screen Negative 10/22/19 08:14 Crossmatch See Detail 10/22/19 08:14
[2019-10-25] MEDS: cefTRIAXone 1 GM/50 ML BAG IVPB (19:06)
[2019-10-25] MEDS: Normal Saline Flush 10 ML SYR IVP (19:06)
[2019-10-25] MEDS: Melatonin 3 MG TAB PO (21:10)
[2019-10-26 00:35] VITALS: BP 127/72; PULSE 72; RESP 20; TEMP 36.4; O2SAT 96
[2019-10-26] MEDS: Levothyroxine 150 MCG TAB PO (05:33)
[2019-10-26 06:16] LABS: Bilirubin Negative (Negative); Blood Negative (Negative); Clarity Clear (Clear); Glucose Negative (Negative); Ketones Negative (Negative); Leukocyte Esterase Negative (Negative); Nitrite Negative (Negative); Specific Gravity 1.015 (1.005-1.025); Urobilinogen 0.2 EU/dL (Up TO 0.2); pH 5.5 (5-8)
[2019-10-26] MEDS: Normal Saline Flush 10 ML SYR IVP (06:45)
[2019-10-26 08:00] VITALS: BP 127/79; PULSE 70; RESP 19; TEMP 35.5; O2SAT 98
[2019-10-26] MEDS: Budesonide/Formoterol 160/4.5 6 GM 60 PUFF INH IH (08:13)
[2019-10-26] MEDS: Tiotropium Bromide-Respimat 10 PUFF INH IH (08:13)
[2019-10-26 08:14] LABS: Anion Gap 8.6 mmol/L (3-11); BUN 8 mg/dL (7-18); CO2 25.4 mmol/L (21.0-32.0); CREATININE 0.75 mg/dL (0.55-1.02); Calcium 8.2 mg/dL (8.5-10.1); Chloride 104 mmol/L (98-107); Glucose 123 mg/dL (74-106); Potassium 3.4 mmol/L (3.5-5.1); Sodium 138 mmol/L (136-145)
[2019-10-26] MEDS: Apixaban 5 MG TAB PO (08:27)
[2019-10-26] MEDS: Omeprazole 20 MG CAPCR 40 MG PO (08:27)
[2019-10-26] MEDS: Hydrocortisone 10 MG TAB 20 MG PO (08:27)
[2019-10-26] MEDS: Montelukast 10 MG TAB PO (08:28)
[2019-10-26] MEDS: Cyanocobalamin 500 MCG TAB 1000 MCG PO (08:28)
[2019-10-26] MEDS: Ferrous Sulfate 325 MG TAB PO (08:28)
[2019-10-26] MEDS: fentaNYL 25 MCG PATCH TD (08:29)
[2019-10-26] MEDS: fentaNYL 100 MCG PATCH TD (08:30)
[2019-10-26] MEDS: Ondansetron O.D.T. 4 MG TABEF 8 MG PO (08:39)
--- NOTE | 2019-10-26 10:17 | DSE_ITS ---
Date of service: 10/26/19 Time of Service: 10:17 DS: Diagnosis Discharge Diagnosis (1) Recurrent urinary tract infection: Start date: 10/26/19 Start time: 10:17 Status: Resolved Asessment and Plan: Resolved, recurrent, likely due to obesity. Appt with [facility] this week. She received 5 days ceftriaxone. BCNGTD grew Enterobacter cloacae complex greater than 100,000 with sensitivity to ceftriaxone, symptoms improved. (2) Iron deficiency anemia: Start date: 10/26/19 Start time: 10:20 Status: Chronic Asessment and Plan: On chronic anticoagulation with CKD and chemo, she did trend down to 7, therefore she received one unit PRBC and hemoglobin has remained stable since. Follow up with Oncology/Hematology for further treatment. (3) Obesity: Start date: 10/26/19 Start time: 10:21 Status: Chronic Asessment and Plan: This likely significantly impacting her recurrent UTI's, due to poor self care. (4) Adrenal insufficiency: Start date: 10/26/19 Start time: 10:22 Status: Chronic Asessment and Plan: At baseline, did received steroid burst for illness. (5) COPD (chronic obstructive pulmonary disease): Start date: 10/26/19 Start time: 10:23 Status: Chronic Asessment and Plan: Not exacerbated, oxygen as needed during day and at night. Continue treatment regimen. LSC/diminished. (6) C. difficile colitis: Start date: 10/26/19 Start time: 10:24 Status: Inactive Asessment and Plan: History of recurrent Cdiff, therefore per ID anytime patient receives antibiotics she will need vanco as prophylactic. She did not have any diarrhea this admission, actually the opposite with constipation requiring bowel regimen. Will continue vanco for a full 10 day regimen following completion of antibiotics. (7) CKD (chronic kidney disease): Start date: 10/26/19 Start time: 10:25 Status: Chronic Asessment and Plan: Stable, above case discussed with Dr. Huynh who is in agreement. Discharge Plan Disposition Patient Disposition: HOME W/HOME HEALTH SERVICE Condition: Good Discharge Details Chief Complaint: Fever Clinical Impression: Unsteady gait, Urinary tract infection Reason For Visit: FEVER Admit Date/Time: 10/20/19 21:13 Admit Provider: Robert Jose Attending Provider: Robert Jose Primary Care Provider: ANNA TORO ED Provider: Payton Gale Hospital Course Hospital Course: 59 yo female well known to our service admitted to m/s for UTI. She has recurrent UTI's, she has a tendency to have AMS with her UTI, which was present on this admission as well along with confusion, dysuria. She does have an appt at [facility] this week with urology for further management of chronic UTI. She received stress dose steroids on admission for adrenal insufficiency, fevers defervesced over course of antibiotics. Urine culture with enterobacter, sensitive to ceftriaxone, she received a full 5 day course of IV antibiotics. In the past she has also had multiple episodes of cdiff due to antibiotic use on this admission however she was treated for constipation but she was placed on prophylaxis for her cdiff and will finish a 10 day course following completion of antibiotics. She c/o not being able to take a deep breath and fullness in her abd on 10/23, imaging revealing only cardiomegaly she was given a 20 mg IV dose lasix which improved her symptoms with no further complaints. She will have resumption of services. Home Meds and New Rx's Prescriptions: New vancomycin [Vancocin] 125 mg capsule 125 mg PO QID 10 Days Qty: 40 RF: 0 Continued fentanyl 100 mcg/hr patch 72 hour 1 patch TD Q72H MDD 125 mcg Qty: 10 RF: 0 fentanyl 25 mcg/hr patch 72 hour 1 patch TD Q72H MDD 125 mcg Qty: 10 RF: 0 hydrocodone-acetaminophen 7.5-325 mg tablet 2 tab PO Q8H MDD 45 mg PRN (Reason: pain) Qty: 90 RF: 0 exemestane 25 mg tablet 25 mg PO DAILY Qty: 90 RF: 0 Afinitor 10 mg tablet 10 mg PO DAILY Qty: 30 RF: 0 Xgeva 120 mg/1.7 mL (70 mg/mL) solution 120 mg SC Q4W Qty: 1.7 RF: 0 montelukast [Singulair] 10 MG tablet 10 mg PO DAILY RF: 0 cyanocobalamin (vitamin B-12) [Vitamin B-12] 1,000 MCG tablet 1,000 mcg PO DAILY RF: 0 folic acid 1 MG tablet 1 mg PO DAILY RF: 0 Spiriva Respimat 4 GM mist 1 puff Inhalation DAILY RF: 0 budesonide-formoterol [Symbicort] 10.2 GM HFA aerosol inhaler 2 puff Inhalation BID RF: 0 ondansetron HCl [Zofran] 8 MG tablet 8 mg PO TID PRNRF: 0 levothyroxine 150 mcg Tablet 150 mcg PO DAILY RF: 0 Trulicity 1.5 mg/0.5 mL Pen Injector 1.5 mg SUBCUT QWEEK RF: 0 benzonatate 200 mg Capsule 200 mg PO TID PRN (Reason: cough) Qty: 15 RF: 0 omeprazole 40 mg Capsule,Delayed Release(Dr/Ec) 40 mg PO DAILY RF: 0 ferrous sulfate 325 mg (65 mg iron) Tablet 325 mg PO DAILY RF: 0 cranberry 450 mg Tablet 450 mg PO DAILY RF: 0 Narcan 4 mg/actuation [place],Non-Aerosol 1 spray INTRANASAL PRN PRNRF: 0 Glucagon (HCl) Emergency Kit 1 mg Recon Soln 1 mg PRN PRNRF: 0 Eliquis 5 mg tablet 5 mg PO BID RF: 0 guaifenesin [Mucinex] 600 mg tablet extended release 12hr 600 mg PO BID PRNRF: 0 Humulin R U-500 (Conc) Kwikpen 500 unit/mL (3 mL) insulin pen 40 unit SUBCUT QNOON RF: 0 Humulin R U-500 (Conc) Kwikpen 500 unit/mL (3 mL) insulin pen 40 unit SUBCUT QPM RF: 0 Humulin R U-500 (Conc) Kwikpen 500 unit/mL (3 mL) insulin pen 70 unit SUBCUT QAM RF: 0 Lactobacillus acidophilus Capsule 1,000 mmu cells PO BID Qty: 30 RF: 0 hydrocortisone 10 mg Tablet 5 mg PO DAILY@1500 Qty: 0 RF: 0 hydrocortisone 5 mg Tablet 20 mg PO DAILY Qty: 0 RF: 0 Discharge Instructions Instructions: Urinary Tract Infection in Women (DC) Additional Instructions: Follow up with M as planned this week Take vanocmycin for 10 days to prevent Cdiff Resume services PT Activity:: Activity as Tolerated Equipment/Supplies:: No Equipment Needed Diet:: Carb Counting Discharge Orders Discharge Orders: Discharge Order (Routine); Ordered 10/26/19 Ordered By: Ami Sanchez DS: Summary Status at Discharge Functional status at discharge: uses cane/walker Overall status at discharge: patient is back to baseline Mental Status: mental status grossly normal Speech and Movement: speech and movement normal Mood: congruent mood Affect: normal affect Exam Narrative Exam Narrative: General: very pleasant 59 year old female, overweight, sitting up in the recliner with feet elevated. Alert and oriented. HEENT: normocephalic, atraumatic, pupils equal and round, EOMI, edentulous, mucous membranes moist. Neck: supple. Cardiovascular: heart has regular rate and rhythm, no murmur appreciated. Respiratory: respiratons appear even and unlabored, lung sounds clear bilaterally. GI: large, round abdomen, +BS, abdomen soft, nontender on palpation, nondistended. Extremities: brown discoloration to BLEs consistent with vascular changes, mild, nonpitting edema to BLEs. Psych Mental Status: mental status grossly normal Speech and Movement: speech and movement normal Mood: congruent mood Affect: normal affect DS: Data Vitals/I&O Vitals and I&O: Vital Signs Temperature 35.5 C L 10/26/19 08:00 Temperature Source Tympanic 10/26/19 08:00 Pulse 70 10/26/19 08:00 Pulse Rhythm Regular 10/26/19 00:38 Respiratory Rate 19 10/26/19 08:00 Respiratory Effort Non-Labored 10/26/19 00:38 Respiratory Depth Normal 10/26/19 00:38 Respiratory Pattern Normal 10/26/19 00:38 Blood Pressure 127/79 10/26/19 08:00 Blood Pressure Position Supine 10/20/19 18:44 Pulse Oximetry 98 10/26/19 08:00 Oxygen Delivery Method Room Air 10/26/19 08:00 Oxygen Flow Rate 0 10/26/19 08:00 Pain Level 0 10/26/19 08:00 Comment 10/25/19 00:25 Intake & Output 10/25/19 10/25/19 10/26/19 11:59 23:59 11:59 Intake Total 240 / 720 480 / 720 900 / 900 Output Total 300 / 300 Balance -60 / 420 480 / 420 900 / 900 Intake: Oral 240 / 720 480 / 720 900 / 900 Output: Urine 300 / 300 Other: Urine Color Yellow Yellow Yellow Urine Appearance Clear Clear Urine Odor Normal Normal Normal Comment void x 1 Stool Size Small Moderate Stool Characteristics Liquid Soft Brown Green Voiding Methods Bedside Commode Bedside Commode Bedside Commode Incontinent Data Completed and Pending Completed studies during hospitalization [Text1]: XAM: XR PORTABLE CHEST AP CLINICAL HISTORY: fever TECHNIQUE: 2D digital imaging was performed. COMPARISON: CR,XR XR CHEST 2V PA LATERAL from 09/09/2019 FINDINGS: The heart is enlarged. A port is again noted over the right upper chest. Leads overlie the chest. No infiltrate, effusion or pulmonary edema is seen. IMPRESSION: No acute pulmonary findings. Exam(s) PROCEDURE INFORMATION: Exam: XR Chest, 1 View Exam date and time: 10/20/2019 8:18 PM Age: 59 years old Clinical indication: Fever TECHNIQUE: Imaging protocol: XR of the chest Views: 1 view. COMPARISON: 1. CR XR CHEST 2V PA LATERAL 09/09/2019 11:39 PM 2. CR - XR PORTABLE CHEST AP 08/17/2019 9:40:55 AM FINDINGS: Tubes, catheters and devices: Stable right chest port. Lungs: No focal consolidation. Pleural space: No pleural effusion. No pneumothorax. Heart/Mediastinum: The heart is enlarged. Bones/joints: Unremarkable. IMPRESSION: No acute cardiopulmonary disease. EXAM: XR ABDOMEN FLAT UPRIGHT CLINICAL HISTORY: bloating, fullness, SOB TECHNIQUE: COMPARISON: CR,RF RF BARIUM ENEMA from 07/30/2019 FINDINGS: Three views were obtained. There are vascular clips overlying the lower thorax and upper abdomen bilaterally. The abdomen is incompletely visualized. Bowel gas pattern grossly unremarkable as seen. IMPRESSION: No evidence of acute process. EXAM: XR CHEST 2V PA LATERAL CLINICAL HISTORY: SOB, feeling of fullness. TECHNIQUE: COMPARISON: CR,XR XR PORTABLE CHEST AP from 10/20/2019 FINDINGS: There is a Port-A-Cath in position on the right. Tip of the catheter overlies the superior vena cava. Cardiac enlargement noted. Lungs are grossly clear. No pleural effusion. IMPRESSION: No evidence of acute process. Exam(s) PROCEDURE INFORMATION: Exam: XR Abdomen, 2 Views Exam date and time: 10/24/2019 11:49 AM Age: 59 years old Clinical indication: Other: Bloating, fullness, SOB TECHNIQUE: Imaging protocol: XR of the abdomen. Views: 2 Views. COMPARISON: CT ABDOMEN PELVIS W 10/05/2019 1:09 PM FINDINGS: Heart/Mediastinum: Cardiomegaly. Lungs: The visualized lungs are clear. Gastrointestinal tract: Non-specific, partially visualized bowel gas pattern. Intraperitoneal space: Surgical clips overlie upper abdomen/bilateral lower axilla. Vasculature: Stable right chest port. Bones/joints: No acute osseous findings. Other findings: Overpenetration limits the evaluation somewhat. IMPRESSION: Limited evaluation of the abdomen. No definitive acute findings. Surgical clips overlie the upper abdomen/bilateral lower axilla. Stable right chest port. Cardiomegaly. Dictated and Authenticated by: Vince Tilley MD. TECHNIQUE: Imaging protocol: XR of the chest Views: 2 views. COMPARISON: CR XR PORTABLE CHEST AP 10/20/2019 8:11 PM FINDINGS: Tubes, catheters and devices: Stable right chest port. Lungs: No focal airspace consolidation. Pleural space: No pneumothorax or pleural effusion. Heart/Mediastinum: Stable cardiomegaly. Bones/joints: Unchanged osseous structures. Soft tissues: Surgical clips are visualized over the right axilla and lower right chest. IMPRESSION: No acute findings. Labs on day of discharge: Labs from last 24 hours 10/26/19 10/26/19 06:30 05:05 Sodium 138 Potassium 3.4 L Chloride 104 Carbon Dioxide 25.4 Anion Gap 8.6 BUN 8 Creatinine 0.75 Estimated GFR/1.73 m2 >= 60.00 Glucose 123 H Calcium 8.2 L Urine Color Yellow Urine Clarity Clear Urine pH 5.5 Ur Specific [place] 1.015 Urine Protein Negative Urine Ketones Negative Urine Blood Negative Urine Nitrite Negative Urine Bilirubin Negative Urine Urobilinogen 0.2 Ur Leukocyte Esterase Negative Urine Glucose Negative [facility] Medical History Acute confusion due to infection (Resolved) Acute UTI (Resolved) Adenoma of pituitary (Chronic) benign; renoved surgically on steroids and synthroid to replete Bacteremia (Resolved) Citrobacter C. difficile diarrhea (Acute) Cancer related pain (Chronic) improved with fentanyl patch Carpal tunnel syndrome (Acute) Chronic adrenal insufficiency (Acute) Chronic pain (Chronic) Chronic respiratory failure with hypoxia (Chronic) Chronic venous stasis dermatitis (Chronic) COPD (chronic obstructive pulmonary disease) (Chronic) On nocturnal oxygen - 2L prn Depression (Chronic) Diabetes mellitus (Chronic) Insulin dependent Discharge planning issues (Resolved) Diverticulosis (Acute) DNI (do not intubate) (Acute) DNR (do not resuscitate) (Acute) Dyslipidemia (Chronic) E. coli bacteremia (Resolved) Fatigue (Acute) Goals of care, counseling/discussion (Acute) History of breast cancer (Chronic) metastatic, with lymphatic spread and bone mets Hyperlipidemia (Acute) Hypopituitarism (Chronic) Hypothyroidism (Chronic) Influenza B (Acute) Iron deficiency anemia (Chronic) Left lower lobe pneumonia (Resolved) Metastatic breast cancer (Chronic) Obesity (Chronic) Obstructive sleep apnea (Chronic) per [facility] records Palliative care patient (Chronic) Pneumonia (Acute) POLST (Physician Orders for Life-Sustaining Treatment) (Acute) done 03/26/19; DNR/DNI Positive blood cultures (Ruled-out) Pulmonary emboli (Inactive) Recurrent urinary tract infection (Resolved) Restless leg syndrome (Acute) SOB (shortness of breath) (Resolved) Spinal stenosis (Acute) Stage IV breast cancer in female (Chronic) Toxic metabolic encephalopathy (Resolved) Uncontrolled pain (Resolved) Unsteady gait (Chronic) Urinary incontinence (Acute) UTI (urinary tract infection) (Resolved) Surgical History H/O bilateral mastectomy (Acute) H/O colonoscopy with polypectomy (Acute) H/O mastectomy (Chronic) bilateral History of carpal tunnel release of both wrists (Acute) Port-A-Cath in place (Acute) Status post transsphenoidal pituitary resection (Acute) Family History Father , age 83 from complications of diabetes Prostate cancer Diabetes Mother , age 79 from complications of Crohn's disease and colitis Crohn's disease Colitis Daughter No problems noted. Daughter No problems noted. Brother Arthritis severe Obesity Sister Diabetes Obesity Sister No problems noted. Sister No problems noted. Social History Smoking/Tobacco Use Status: Former Tobacco Use Alcohol Intake: never Drug use: Never Substance use type: does not use Caregiver/Support person: Yes Household members: children Number of Children: 2 Communication Needs: Hard of Hearing and Corrective Lenses Education Level: middle school Do you need help understanding health information?: Always current occupation: on disability Pets and animals: Yes (4 cats, 3 dogs, 1 bird, 6 hermit crabs) Pets and animals: cat(s), dog(s), bird(s) and other Details: nanette luciano Current gender identity: female What is your relationship status?: How often do you talk on the phone with friends or family?: once per week How often do you get together with friends or relatives?: three or more times per week Panel score (0-1 are the most socially isolated patients): 1 What type of physical activity do you participate in: none, sedentary lifestyle, wheelchair-bound and additional Details: needs a new wheelchair, cannot walk far, just a few steps Special pedro pablo needs: No Seatbelt use: always Working smoke detector in home: Yes Fire extinguisher in home: Yes Firearms in home: No Do you feel safe at home: Yes Do you feel safe in your relationship?: Yes Additional Social history: , with 2 children. 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 She is not currently working and is on disability. Has a history of tobacco, quit in 1992. Reports rare use of alcohol only. Lives with daughter Bhargavi in [place], and her other daughter is close. Uses a walker to ambulate. Hard to do recently, depending more on WC. In a lot of pain. Recent scans show progression of breast cancer.
[2019-10-26] MEDS: Potassium Chloride 20 MEQ TABCR 40 MEQ PO (10:47)
[2019-10-26 11:05] VITALS: BP 118/75; PULSE 77; RESP 19; TEMP 36.2; O2SAT 99
[2019-10-26] MEDS: Heparin 500 UNITS/5 ML SYRINGE IVP (12:03)
--- NOTE | 2019-10-26 13:40 | PDOC.CMDIS ---
- If Service Date Differs Date of service: 10/26/19 Time of Service: 13:41 LACE Index Scoring Tool - Questions: Length of Stay (in days): 4 - 6 Acuity (Admit via E.D.?): Yes Comorbidities: Diabetes w/o Complication, Chronic Pulmonary Disease, Metastatic Solid Tumor E.D. Visits: 15 - Answers: Total Score: 16 Risk of Readmission: High Risk Care Management Discharge Reason for Hospitalization: Fever Discharge Plan: Candace will be discharged home with a resumption of home health nuring services and new PT. She will follow up with her PCP and community providers and discharge plan of care. Candace will transport with her daughter. Patient/Family Education Needs: Discharge plan, limitations, follow up care, Ask Me Three
--- NOTE | 2019-10-26 17:00 | PT.INDS ---
Date of service: 10/27/19 PT Notes Visit Reasons: FEVER Inpatient Physical Therapy Discharge Summary Dates: 10/26/2019 Dates of Service: 10/22/2019 through 10/25/2019 This is a clinical summary of care provided on the duration of dates listed above. No charge was made in the completion of this documentation. Referring Doctor: Ami Sanchez NP PT Orders: PT CONSULT: Eval/Treat Precautions: Fall. Standard. Activity as tolerated. Patient Profile/Admitting Diagnosis: Candace is a 59-year-old female with chroninc adrenal insufficicency and matastatic breast carcinoma who presented to the ED on 10/20/2019 with chief presentation of fever. Patient is diagnose with fever from suspected UTI with referral for skilled physical therapy services in order to address resulting impairments in mobility performance. PMHX: Medical History Acute confusion due to infection (Resolved) Acute UTI (Resolved) Adenoma of pituitary (Chronic) benign; renoved surgically on steroids and synthroid to replete Bacteremia (Resolved) Citrobacter C. difficile diarrhea (Acute) Cancer related pain (Chronic) improved with fentanyl patch Carpal tunnel syndrome (Acute) Chronic adrenal insufficiency (Acute) Chronic pain (Chronic) Chronic respiratory failure with hypoxia (Chronic) Chronic venous stasis dermatitis (Chronic) COPD (chronic obstructive pulmonary disease) (Chronic) On nocturnal oxygen - 2L prn Depression (Chronic) Diabetes mellitus (Chronic) Insulin dependent Discharge planning issues (Resolved) Diverticulosis (Acute) DNI (do not intubate) (Acute) DNR (do not resuscitate) (Acute) Dyslipidemia (Chronic) E. coli bacteremia (Resolved) Fatigue (Acute) Goals of care, counseling/discussion (Acute) History of breast cancer (Chronic) metastatic, with lymphatic spread and bone mets Hyperlipidemia (Acute) Hypopituitarism (Chronic) Hypothyroidism (Chronic) Influenza B (Acute) Iron deficiency anemia (Acute) Left lower lobe pneumonia (Resolved) Metastatic breast cancer (Chronic) Obesity (Chronic) Obstructive sleep apnea (Chronic) per [facility] records Palliative care patient (Chronic) Pneumonia (Acute) POLST (Physician Orders for Life-Sustaining Treatment) (Acute) done 03/26/19; DNR/DNI Positive blood cultures (Ruled-out) Pulmonary emboli (Inactive) Recurrent urinary tract infection (Acute) Restless leg syndrome (Acute) SOB (shortness of breath) (Resolved) Spinal stenosis (Acute) Stage IV breast cancer in female (Chronic) Toxic metabolic encephalopathy (Resolved) Uncontrolled pain (Resolved) Unsteady gait (Chronic) Urinary incontinence (Acute) UTI (urinary tract infection) (Resolved) Surgical History H/O bilateral mastectomy (Acute) H/O colonoscopy with polypectomy (Acute) H/O mastectomy (Chronic) bilateral History of carpal tunnel release of both wrists (Acute) Port-A-Cath in place (Acute) Status post transsphenoidal pituitary resection (Acute) Social History/Home Situation: Candace lives with her daughter in [place], [place] in a two-story house with a ramp to enter with rails on both sides. Patient has stairs to the second floor of the house but has everything she needs on the first floor. She is disabled. She has 2 daughters locally. She receives choices for care highest needs, and her daughter Kiki is her primary provider for 12 years now. Kiki provides assistance with bathing and does meal preapration and assistance with lower body dressing. She was independent with front-wheeled walker for in-house ambulation and uses the 4-wheeled walker for outdoor ambulation. She has to walk about 80-90 feet to get to her car. She is dependent on her daughter for transportation to and from appointments. Daughter also provides assistance with bathing patient's back due to body habitus. Equipment Owned/DME: Bariatric FWW, bariatric hospital bed, bariatric recliner, bariatric front wheeled walker, new bariatric wheelchair with seat and back cushions Subjective: NT. See most recent SENIOR [employer] NET DEVELOPER notes. Objective: General Observation: NT. See most recent SENIOR [employer] NET DEVELOPER notes. Mental Status: NT. See most recent SENIOR [employer] NET DEVELOPER notes. Pain: NT. See most recent SENIOR [employer] NET DEVELOPER notes. ROM: Right Upper Extremity: Shoulder flexion WFL. Elbow flexion WFL. Hands/wrist and fingers are WFL. Left Upper Extremity: Shoulder flexion WFL. Elbow flexion WFL. Hands/wrist and fingers are WFL. Right Lower Extremity: Patient is able to bend hip to about 20 degrees beyond 90 while seated at edge of bed. Knee flexion WFL. Dorsiflexion/plantarflexion WFL. Left Lower Extremity: Patient is able to bend hip to about 10 degrees beyond 90 while seated at edge of bed. Knee flexion WFL. Dorsiflexion/plantarflexion WFL. Strength: Right Upper Extremity: Shoulder flexion 4/5. Elbow flexion 4/5. Adjunct Business Instructor strong and functional Left Upper Extremity: Shoulder flexion 4/5. Elbow flexion 4/5. Adjunct Business Instructor strong and functional. Right Lower Extremity: Hip flexion 3-/5. Knee flexion 4/-5. Knee extension 4-/5. Ankle dorsiflexion/plantarflexion 3+/5. Left Lower Extremity: Hip flexion 3-/5. Knee flexion 4-/5. Knee extension 4-/5. Ankle dorsiflexion/plantarflexion 4-/5. Bed Mobility/Transfers: Requires assist of 1 for all bed activities due to hip pain and nausea. Gait: Refused due to pain and nausea. Balance: Static Sitting: Good Dynamic Sitting: Good Static Standing: NT Dynamic Standing: NT Assessment: Candace has refused all out of bed activities for this episode of care due to right pain and nausea. Candace continues to demonstrate need for an assistive ambulatory device for all mobility ADL performance, minimal breathlessness, right hip pain limiting ambulation tolerance, and balance impairment resulting from admitting diagnoses and co-morbidities. Candace is a 59-year-old female with chronic adrenal insufficiency and matastatic breast carcinoma who presented to the ED on 10/20/2019 with chief presentation of fever. Patient is diagnose with fever from suspected UTI with referral for skilled physical therapy services in order to address resulting impairments in mobility performance. Patient continues to present with clinical signs and symptoms consistent with current/admitting diagnoses that have resulted to mobility limitations, gait instability, generalized weakness, and impairment of motor control as demonstrated by the following impairment level findings: 1. Decreased strength to both hip major muscle groups 2. Impaired sitting/standing balance 3. Impaired activity tolerance 4. Limitation of joint range of motion in B hips Impairments are continuing to contribute to the following functional limitations: 1. Dependent bed mobility skills 2. Increased dependence with transfers 3. Inability to safely ambulate without assistive device and physical assistance 4. Increase completion time for mobility ADL performance 5. Increased fall risk 6. Inability to negotiate steps alone safely Goals: Goals X 1 week 1. Supine-Sit SBA NOT MET 2. Sit-Supine SBA NOT MET 3. Sit-Stand SBA NOT MET 4. Stand-Sit SBA NOT MET 5. Bed-Chair SBA NOT MET 6. Chair-Bed SBA NOT MET 7. SBA indoor ambulation using FWW for at least 150 feet without dyspnea and 2/10 pain in R hip NOT MET 8. Independent with home exercise program NOT MET 9. Static/dynamic standing balance/tolerance good NOT MET DISCHARGE RECOMMENDATIONS: Patient will benefit from continued home health PT services in order to progress mobility level using four-wheeled walker, assess home safety, identify additional equipment needs, and cotninue with a functional maintenance program that will increase ability of patient to remain at home with daughter. No equipment needs at this time. TREATMENT CODE/TIME: NC Thank you very much for this referral. Allie Miguel PT, DPT, CLT [facility] Inpatient PT at [place], [place]
== END 2019-10-26 12:17 | disposition home health service (06) | DRG 690 ==
LOC: ER 22:08 → MS 22:14
PROVIDERS: Family Medicine; Nurse Practitioner; Nurse Practitioner Family; Admitting Provider General Practice; Emergency Provider Physician Assistant; PCP Nurse Practitioner Family; Visit Provider General Practice
DX: N39.0 Urinary tract infection, site not specified; Z68.42 Body mass index [BMI] 45.0-49.9, adult; E27.40 Unspecified adrenocortical insufficiency; J96.11 Chronic respiratory failure with hypoxia; R26.81 Unsteadiness on feet; E66.01 Morbid (severe) obesity due to excess calories; Z86.711 Personal history of pulmonary embolism; D64.9 Anemia, unspecified; G47.33 Obstructive sleep apnea (adult) (pediatric); E78.5 Hyperlipidemia, unspecified; Z85.3 Personal history of malignant neoplasm of breast; Z79.01 Long term (current) use of anticoagulants; E89.3 Postprocedural hypopituitarism; Z99.81 Dependence on supplemental oxygen; I87.2 Venous insufficiency (chronic) (peripheral); J44.9 Chronic obstructive pulmonary disease, unspecified; Z79.4 Long term (current) use of insulin; K57.90 Diverticulosis of intestine, part unspecified, without perforation or abscess without bleeding; Z66 Do not resuscitate; F32.9 Major depressive disorder, single episode, unspecified; E03.9 Hypothyroidism, unspecified; D50.9 Iron deficiency anemia, unspecified; G25.81 Restless legs syndrome; M48.00 Spinal stenosis, site unspecified; R32 Unspecified urinary incontinence; B96.89 Other specified bacterial agents as the cause of diseases classified elsewhere; N18.3 Chronic kidney disease, stage 3 (moderate); E11.22 Type 2 diabetes mellitus with diabetic chronic kidney disease
CPT/HCPCS: 36415; 36591; 80048; 80053; 82947; 85027; 86850; 86900; 86901; 86920; 87040; 87077; 94640; 96361; 96365; 97110; 97163; 99222; 99232; 99233; 99239; 99285; U0003; 71045; 71046; 74019; 81003; 81015; 83605; 83735; 85014; 85018; 85025; 87086; 87186; J0696; J1720; J1941; P9016

== ENCOUNTER 2019-11-03 11:01 | Inpatient (IN) | payer MEDICARE, MEDICAID, SELFPAY ==
[2019-11-03] VITALS (98 sets, daily range): BP systolic 85–133; BP diastolic 26–86; PULSE 85–192; RESP 14–23; TEMP 36.1–37.3; O2SAT 89–100
--- NOTE | 2019-11-03 11:00 | RT.EKG_ITS ---
APPROVED REPORT Exam: Resting ECG Patient Location: E HR:102 bpm ECG Measurements Heart Rate 102 AXIS CA 167 P 67 QRSd 97 QRS 51 QT 342 T 56 QTc 448 Conclusion EKG 12: 29 Rate 102, intervals normal, sinus tachycardia, no significant ST elevations or depressions, very smal l Q wave in lead III. No evidence of STEMI.
--- NOTE | 2019-11-03 11:27 | W.ED.GENAD ---
Discharge Plan Disposition Patient Disposition: [facility] INPATIENT Condition: Serious Discharge Details Chief Complaint: GenMedical Clinical Impression: Sepsis associated hypotension, Diarrhea Admit Date/Time: 11/03/19 13:34 Admit Provider: Sheyla Reno Attending Provider: Sheyla Reno Primary Care Provider: ANNA TORO ED Provider: Kenia Melgoza Medical Decision Making 1157: At this time is concern for sepsis due to falling blood pressure tachycardia and report of temperature of 102 T-max. Fluid orders placed for 1 L, Zosyn and IV vancomycin. Expected disposition is admission. Care management paged to inform of patient's return to the department. 1244: Spoke with care management who reportedly had spoken with patient's daughter Kiki who is concerned that patient may be better suited for transfer to [facility] as patient has urology specialist and is set for some sort of urology procedure tomorrow. After receiving labs I will consult with hospitalist regarding this and discuss this. Patient does have an elevated white blood cell count of 12.630 which is up from 3 on 24 October. H&H is 8.6 and 28, absolute neutrophils 11.11 which is also elevated from 2 on October 24. Sodium is 135, potassium 4.5 glucose is 358, AST 72 ALT 20 alk phos is 179 urinalysis is insignificant for urinary tract infection. Does have 30 protein, urine blood is moderate 10-20 RBCs. No leukocytes or nitrites. COVID-19 at this time is pending, C. difficile is pending at this time and lactate is pending. Chest x-ray is also pending at this time. 1319: Hospitalist paged regarding possible admission. 1332: Spoke with Dr. Reno hospitalist who agrees to accept patient for admission to ICU for sepsis and C. difficile suspected infection. She recommends not giving Vanco IV and changing to Flagyl IV. Patient did already receive Zosyn. Informed the nurse to cancel the vancomycin at this time. Will give stress dose of steroids of hydrocortisone 100 mg IV at this time. 1340: Spoke with Bhargavi cordova daughter and relayed the plan of care to admit patient to ICU, verbalized understanding. She also relays that patients chemo meds are in her bag. 1530: Patient transferred up to the ICU with the nurse on monitor, last documented blood pressure per staff design engineer was 108 systolic. Did discuss plan with patient's daughter once again and informed that we can get the fidaxomicin this afternoon she verbalized understanding and is agreeable to plan to admit patient to this hospital. HPI General Mode of arrival: EMS. Date/Time Provider Initiated Documentation: 11/03/19 11:04. Limitations to Documentation: no limitations. Information obtained by: patient. HPI Narrative: 59-year-old female who is well-known to the department who presents to the ER via EMS for chief complaint of weakness, diarrhea and fever T-max 102 prior to arrival. Patient states that started this morning reports stool that looks like pudding. Patient was just recently admitted and discharged proximately 1 week ago for recurrent UTI where she received Rocephin IV for 5 days. She has a history of iron deficiency anemia received 1 unit of PRBCs during her hospital stay, chronic morbid obesity, adrenal in, COPD sufficiency, C. difficile colitis which patient is currently taking vancomycin for this time, and chronic kidney disease. Upon her initial exam she is alert and oriented. She does live with her daughter who is her primary caregiver and does have home health. Upon initial presentation her blood pressure is 95/46, pulse 107 she is satting 98% on 3 L nasal cannula. Temp is 37.3 Celsius. Related Data Home Medications Medication Instructions Recorded Confirmed Spiriva Respimat 1 puff INHALATION DAILY 04/03/17 11/03/19 budesonide-formoterol [Symbicort] 2 puff INHALATION BID 04/03/17 11/03/19 cyanocobalamin (vitamin B-12) 1,000 mcg PO DAILY 04/03/17 11/03/19 [Vitamin B-12] folic acid 1 mg PO DAILY 04/03/17 11/03/19 montelukast [Singulair] 10 mg PO DAILY 04/03/17 11/03/19 ondansetron HCl [Zofran] 8 mg PO TID PRN 04/03/17 11/03/19 Trulicity 1.5 mg SUBCUT QWEEK 05/06/18 11/03/19 levothyroxine 150 mcg PO DAILY 05/06/18 11/03/19 benzonatate 200 mg PO TID PRN #15 cap 05/10/18 10/20/19 Eliquis 5 mg PO BID 07/25/19 11/03/19 Glucagon (HCl) Emergency Kit 1 mg PRN PRN 07/25/19 11/03/19 Humulin R U-500 (Conc) Kwikpen 40 unit SUBCUT QNOON 07/25/19 11/03/19 Humulin R U-500 (Conc) Kwikpen 40 unit SUBCUT QPM 07/25/19 11/03/19 Humulin R U-500 (Conc) Kwikpen 70 unit SUBCUT QAM 07/25/19 11/03/19 Narcan 1 spray INTRANASAL PRN PRN 07/25/19 11/03/19 cranberry 450 mg PO DAILY 07/25/19 11/03/19 ferrous sulfate 325 mg PO DAILY 07/25/19 11/03/19 guaifenesin [Mucinex] 600 mg PO BID PRN 07/25/19 11/03/19 omeprazole 40 mg PO DAILY 07/25/19 11/03/19 Lactobacillus acidophilus 1,000 mmu cells PO BID #30 cap 08/01/19 11/03/19 hydrocortisone 5 mg PO DAILY@1500 #0 tab 08/24/19 11/03/19 hydrocortisone 20 mg PO DAILY #0 tab 08/24/19 11/03/19 denosumab 120 mg/1.7 mL (70 mg/mL) 120 mg SC Q4W #1.7 ml 10/19/19 11/03/19 subcutaneous solution exemestane 25 mg tablet 25 mg PO DAILY #90 tab 10/19/19 10/20/19 fentanyl 100 mcg/hr transdermal 1 patch TD Q72H #10 each MDD 125 10/19/19 10/20/19 patch mcg fentanyl 25 mcg/hr transdermal 1 patch TD Q72H #10 each MDD 125 10/19/19 10/20/19 patch mcg hydrocodone 7.5 mg-acetaminophen 2 tab PO Q8H PRN #90 tab MDD 45 mg 10/19/19 11/03/19 325 mg tablet vancomycin [Vancocin] 125 mg PO QID 10 Days #40 cap 10/26/19 11/03/19 everolimus (antineoplastic) 10 mg PO DAILY 11/03/19 11/03/19 [Afinitor] Previous Rx's Medication Instructions Recorded benzonatate 200 mg PO TID PRN #15 cap 05/10/18 Lactobacillus acidophilus 1,000 mmu cells PO BID #30 cap 08/01/19 hydrocortisone 5 mg PO DAILY@1500 #0 tab 08/24/19 hydrocortisone 20 mg PO DAILY #0 tab 08/24/19 denosumab 120 mg/1.7 mL (70 mg/mL) 120 mg SC Q4W #1.7 ml 10/19/19 subcutaneous solution exemestane 25 mg tablet 25 mg PO DAILY #90 tab 10/19/19 fentanyl 100 mcg/hr transdermal 1 patch TD Q72H #10 each MDD 125 10/19/19 patch mcg fentanyl 25 mcg/hr transdermal 1 patch TD Q72H #10 each MDD 125 10/19/19 patch mcg hydrocodone 7.5 mg-acetaminophen 2 tab PO Q8H PRN #90 tab MDD 45 mg 10/19/19 325 mg tablet vancomycin [Vancocin] 125 mg PO QID 10 Days #40 cap 10/26/19 Allergies Allergy/AdvReac Type Severity Reaction Status Date / Time bee venom protein (honey bee) Allergy Unknown Unverified 10/20/19 20:21 Latex, Natural Rubber AdvReac Intermediate Unverified 10/20/19 20:21 adhesive tape AdvReac Mild Unverified 10/20/19 20:21 General Stated Complaint: GenMedical CARMEN: 2 Review of Systems Narrative: Constitutional: Negative for weight loss, alert and oriented, morbidly obese, appears uncomfortable. Is covered in stool. Positive fever 102 reported. Is wearing a fentanyl patch noted to her left upper extremity. HEENT: Denies trauma, headaches, blurry vision, nasal discharge, sore throat, trouble swallowing. Chest: Denies chest pain, palpitations, irregular rhythm, hypertension. Has a implanted Port-A-Cath noted to right anterior chest. Respiratory: Denies Shortness of breath, cough, hemoptysis. GI: Denies abdominal pain, nausea, vomiting, constipation. Positive diarrhea. : Denies dysuria, hematuria, flank pain, rectal bleeding. Neuro: Denies dizziness, blurry vision, syncope, headache or facial numbness. Positive generalized weakness. Hematologic: Denies easy bruising, intolerance to heat or cold, hair loss. [facility] Medical History Acute confusion due to infection (Resolved) Acute UTI (Inactive) Adenoma of pituitary (Chronic) benign; renoved surgically on steroids and synthroid to replete Bacteremia (Resolved) Citrobacter C. difficile diarrhea (Acute) Cancer related pain (Chronic) improved with fentanyl patch Carpal tunnel syndrome (Acute) Chronic adrenal insufficiency (Acute) Chronic pain (Chronic) Chronic respiratory failure with hypoxia (Chronic) Chronic venous stasis dermatitis (Chronic) COPD (chronic obstructive pulmonary disease) (Chronic) On nocturnal oxygen - 2L prn Depression (Chronic) Diabetes mellitus (Chronic) Insulin dependent Discharge planning issues (Resolved) Diverticulosis (Acute) DNI (do not intubate) (Acute) DNR (do not resuscitate) (Acute) Dyslipidemia (Chronic) E. coli bacteremia (Resolved) Fatigue (Acute) Goals of care, counseling/discussion (Acute) History of breast cancer (Chronic) metastatic, with lymphatic spread and bone mets Hyperlipidemia (Acute) Hypopituitarism (Chronic) Hypothyroidism (Chronic) Influenza B (Acute) Iron deficiency anemia (Chronic) Left lower lobe pneumonia (Resolved) Metastatic breast cancer (Chronic) Obesity (Chronic) Obstructive sleep apnea (Chronic) per [facility] [place] [facility] records Palliative care patient (Chronic) Pneumonia (Acute) POLST (Physician Orders for Life-Sustaining Treatment) (Acute) done 03/26/19; DNR/DNI Positive blood cultures (Ruled-out) Pulmonary emboli (Inactive) Recurrent urinary tract infection (Resolved) Restless leg syndrome (Acute) SOB (shortness of breath) (Resolved) Spinal stenosis (Acute) Stage IV breast cancer in female (Chronic) Toxic metabolic encephalopathy (Resolved) Uncontrolled pain (Resolved) Unsteady gait (Chronic) Urinary incontinence (Acute) UTI (urinary tract infection) (Resolved) Surgical History H/O bilateral mastectomy (Acute) H/O colonoscopy with polypectomy (Acute) H/O mastectomy (Chronic) bilateral History of carpal tunnel release of both wrists (Acute) Port-A-Cath in place (Acute) Status post transsphenoidal pituitary resection (Acute) Family History Father , age 83 from complications of diabetes Prostate cancer Diabetes Mother , age 79 from complications of Crohn's disease and colitis Crohn's disease Colitis Daughter No problems noted. Daughter No problems noted. Brother Arthritis severe Obesity Sister Diabetes Obesity Sister No problems noted. Sister No problems noted. Social History Smoking/Tobacco Use Status: Former Tobacco Use Alcohol Intake: never Drug use: Never Substance use type: does not use Caregiver/Support person: Yes Household members: children Number of Children: 2 Communication Needs: Hard of Hearing and Corrective Lenses Education Level: middle school Do you need help understanding health information?: Always current occupation: on disability Pets and animals: Yes (4 cats, 3 dogs, 1 bird, 6 hermit crabs) Pets and animals: cat(s), dog(s), bird(s) and other Details: hermit crabs Current gender identity: female What is your relationship status?: How often do you talk on the phone with friends or family?: once per week How often do you get together with friends or relatives?: three or more times per week Panel score (0-1 are the most socially isolated patients): 1 What type of physical activity do you participate in: none, sedentary lifestyle, wheelchair-bound and additional Details: needs a new wheelchair, cannot walk far, just a few steps Special pedro pablo needs: No Seatbelt use: always Working smoke detector in home: Yes Fire extinguisher in home: Yes Firearms in home: No Do you feel safe at home: Yes Do you feel safe in your relationship?: Yes Additional Social history: , with 2 children. 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 She is not currently working and is on disability. Has a history of tobacco, quit in 1992. Reports rare use of alcohol only. Lives with daughter Bhargavi in [place], and her other daughter is close. Uses a walker to ambulate. Hard to do recently, depending more on WC. In a lot of pain. Recent scans show progression of breast cancer. Exam Narrative Exam Narrative: Constitutional: Alert and oriented x3. Appears stated age. Morbidly obese body habitus. Is covered in diarrhea and lower extremities. Disheveled. Head: Normocephalic, no trauma. Eyes: Pupils PERRLA, Red reflex noted, EOM's intact. Eyelids symmetrical without lesions, discharge, or swelling. ENT: Bilateral TM's WNL, External ear normal to inspection, no mastoid TTP, swelling, or erythema, Nasal turbinates WNL, no nasal discharge. Normal dentition, Posterior pharynx WNL, no exudate. Chest: Mildly tachycardic at 107 upon initial exam normal S1, S2, distal pulses intact. Blood pressure is low upon initial exam 95/46, 91/37 Resp: Lungs clear and diminished to auscultation bilaterally, no wheezes, rales, or rhonchi. Abdomen: Morbidly obese, reports left flank pain and rib pain and right hip pain Musculoskeletal: Chronic appearing peripheral vascular disease noted to bilateral lower extremities complains of right hip pain which is chronic she does have metastases to her right hip. Skin: Small superficial skin tear noted to her left lower extremity.. Capillary refill less than 2 sec. Neurologic: Cranial nerves II-XII intact. Alert and oriented x 3. DTR's intact. Hematologic/Lymphatic: No ecchymosis, no lymphadenopathy. Course Vital Signs Vital signs: Vital Signs Temperature 37.3 C 11/03/19 11:06 Pulse 107 H 11/03/19 11:06 Respiratory Rate 11/03/19 11:06 Blood Pressure 95/46 L 11/03/19 11:06 Pulse Oximetry 98 11/03/19 11:06 Temperature 37.3 C 11/03/19 11:06 Temperature Source Skin 11/03/19 11:06 Pulse 107 H 11/03/19 11:06 Respiratory Rate 20 11/03/19 11:06 Blood Pressure 95/46 L 11/03/19 11:06 Pulse Oximetry 98 11/03/19 11:06 Oxygen Delivery Method Room Air 11/03/19 11:06 Oxygen Flow Rate 0 11/03/19 11:06 Pain Level 8 11/03/19 11:06 Comment 11/03/19 11:06 Lab/Test Results Lab/Test Results: 11/03/19 11:04 Blood Blood Culture - Pending 11/03/19 11:04 Blood Blood Culture - Pending
[2019-11-03] MEDS: PIPERACILLIN/TAZO 3.375 GM in Normal Saline 50 ML IVPB (12:19)
[2019-11-03] MEDS: Normal Saline 1,000 ML 1000 ML IV (12:30)
[2019-11-03 12:35] LABS: Abs Immature Grans 0.05 10^3/uL (0.0-0.06); Absolute Eosinophil Count 0.05 10^3/uL (0.0-0.7); Basophils % 0.2; Eosinophils % 0.4; HGB 8.6 g/dL (11.2-15.7); Immature Grans % 0.4; Lymphocytes % 6.3; MCH 27.7 pg (27.0-33.0); MCHC 30.7 % (32.0-36.0); MCV 90.3 fL (80-95); MPV 9.4 fL (8.0-11.0); Monocytes % 2.4; Neutrophils % 90.3; Nucleated RBC 0 %; Platelet Count 223 10^3/uL (130-400); RDW 16.5 % (11.7-14.6); RDW-SD 54.4 fL
[2019-11-03 12:37] LABS: Bilirubin Negative (Negative); Blood Moderate (Negative); Clarity Clear (Clear); Glucose Negative (Negative); Ketones Negative (Negative); Leukocyte Esterase Negative (Negative); Nitrite Negative (Negative); Specific Gravity 1.025 (1.005-1.025); Urobilinogen 0.2 EU/dL (Up TO 0.2); pH 5.5 (5-8)
[2019-11-03 12:38] LABS: Absolute Basophil Count 0.02 10^3/uL (0.0-0.2); Absolute Lymphocyte Count 0.77 10^3/uL (1.2-3.4); Absolute Neutrophil Count 11.11 10^3/uL (1.2-6.7)
[2019-11-03 12:46] LABS: WBC 0-2 HPF (0-5)
[2019-11-03 12:47] LABS: Bacteria Negative HPF (Negative); C & S Indicated? No; Casts Negative LPF (Negative); Crystals Moderate Amorphous HPF (Negative); Epithelial Cells Few HPF (Negative); Mucus Negative (Negative)
[2019-11-03 12:50] LABS: ALT 20 U/L (14-59); AST 72 U/L (15-37); Albumin 2.8 g/dL (3.4-5.0); Alkaline Phosphatase 179 U/L (46-116); Anion Gap 9.5 mmol/L (3-11); Anisocytosis 1+; BUN 24 mg/dL (7-18); Bilirubin, Total 0.4 mg/dL (0.2-1.0); CO2 25.5 mmol/L (21.0-32.0); CREATININE 1.77 mg/dL (0.55-1.02); Calcium 8.9 mg/dL (8.5-10.1); Chloride 100 mmol/L (98-107); Diff Comment RBC Morph Reviewed; Estimated GFR 29.26 (mL/min/1.73m2); Glucose 358 mg/dL (74-106); Hypochromasia 1+; Magnesium 1.8 mg/dL (1.8-2.4); Polychromasia Present; Potassium 4.5 mmol/L (3.5-5.1); Sodium 135 mmol/L (136-145); Total Protein 7.2 g/dL (6.4-8.2)
[2019-11-03 12:53] LABS: Troponin I < 0.05 ng/mL (<0.06)
[2019-11-03] MEDS: Hydrocortisone SOD SUC. 100 MG VIAL IVP (13:57)
[2019-11-03] MEDS: metroNIDAZOLE 500 MG/100 ML BAG 100 MG IVPB (13:58)
[2019-11-03] MEDS: Normal Saline 500 ML IV (14:03)
[2019-11-03 14:23] LABS: Lactate 1.8 mmol/L (0.6-1.4)
[2019-11-03 14:43] LABS: Troponin I < 0.05 ng/mL (<0.06)
--- NOTE | 2019-11-03 15:32 | NUR.NOTE ---
1530 patient refused radiology tests on the way to ICU. ICU nurse Augusta notified.
[2019-11-03] MEDS: Normal Saline 1,000 ML 125 ML IV (16:50)
--- NOTE | 2019-11-03 17:12 | HPE_ITS ---
Date of service: 11/03/19 Time of Service: 16:00 Assessment and Plan Assessment and plan (1) Sepsis: Status: Suspected Assessment and plan: Ddx: recurrent C. Diff, possible intraabdominal process given LUQ pain, PNA not well visualized on CXR, bacteremia such as from the infected infusaport, but the patient hasn't actually been febrile yet (she was somewhat hypothermic). Consider CT imaging of chest/abdomen/pelvis. For now, continue stress dose steroids, Empiric therapy for C.Diff with IV flagyl and deficid, and await blood culture results. Given the patient's improvement, I do not think she needs systemic antibiotics other than IV flagyl. Should she deteriorate tonight, the antibiotic coverage should be expanded. The patient is considered PUI for COVID-19, though I feel she is low risk of a ctually having it. (2) Sepsis associated hypotension: Status: Suspected Assessment and plan: BP better with IVF and stress dose steroids. I do not believe that 1 dose of zosyn had an effect on BP. Continue stress dose steroids and IVF. (3) Recurrent Clostridium difficile diarrhea: Status: Suspected Assessment and plan: The most likely underlying etiology. Await C. Diff studies. Given the high likelihood of recurrence, the patient was initiated on empiric deficid and IV flagyl. The patient needs to follow up with [facility] for fecal transplant. (4) Adrenal insufficiency: Status: Chronic Assessment and plan: Acute on chronic. Looking for the infectious culprit. For now continue stress dose steroids. (5) Acute kidney injury superimposed on chronic kidney disease: Status: Acute Assessment and plan: Recheck tomorrow with IV hydration. (6) Toxic metabolic encephalopathy: Status: Acute Assessment and plan: Due to suspected underlying sepsis and adrenal insufficiency. Improving. Monitor mental status. (7) Diabetes mellitus: Status: Chronic Assessment and plan: Continue decreased doses of home U500 insulin. 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 Admitted to ICU. Total Critical Time 60 minutes. History of Present Illness History of Present Illness Chief Complaint: I just felt blah Narrative: Ms Maynard is a 59 year old female, who is well known to our service, with PMHx of r ecurrent UTIs and multiple bouts of C.Diff, as well as adrenal insufficiency, and breast cancer with infusaport in place, on chemo, who this morning states she woke up, had diarrhea, felt tired and went back to bed and just did not feel right, describing it as blah. The patient denies respiratory complains, runny nose, sore throat, contacts with known COVID-19 positive individuals. She chronically does not have a sense of smell, but her sense of taste has been intact. She reports a LUQ pain that started on the way to the hospital. On evaluation in the ED, she was found to be hypotensive to as low as 85/30 and tachycardic. She had a white count of 12. She was afebrile. She did not require supplemental oxygen. Sge had a negative UA. CXR was not performed until the patient arrived to the ICU but is per my read negative for a PNA. She was treated with IVF and received empiric zosyn and flagyl in the ED as well as a bolus of IV hydrocortisone. Her infusaport has now been cultured. Apparently, no stool sample has been collected yet. We were asked to admit the patient for further care. Review of Systems All systems reviewed & are unremarkable except as noted in HPI and below PFSH Medical History Acute confusion due to infection (Resolved) Acute UTI (Inactive) Adenoma of pituitary (Chronic) benign; renoved surgically on steroids and synthroid to replete Bacteremia (Resolved) Citrobacter C. difficile diarrhea (Acute) Cancer related pain (Chronic) improved with fentanyl patch Carpal tunnel syndrome (Acute) Chronic adrenal insufficiency (Acute) Chronic pain (Chronic) Chronic respiratory failure with hypoxia (Chronic) Chronic venous stasis dermatitis (Chronic) COPD (chronic obstructive pulmonary disease) (Chronic) On nocturnal oxygen - 2L prn Depression (Chronic) Diabetes mellitus (Chronic) Insulin dependent Discharge planning issues (Resolved) Diverticulosis (Acute) DNI (do not intubate) (Acute) DNR (do not resuscitate) (Acute) Dyslipidemia (Chronic) E. coli bacteremia (Resolved) Fatigue (Acute) Goals of care, counseling/discussion (Acute) History of breast cancer (Chronic) metastatic, with lymphatic spread and bone mets Hyperlipidemia (Acute) Hypopituitarism (Chronic) Hypothyroidism (Chronic) Influenza B (Acute) Iron deficiency anemia (Chronic) Left lower lobe pneumonia (Resolved) Metastatic breast cancer (Chronic) Obesity (Chronic) Obstructive sleep apnea (Chronic) per [facility] records Palliative care patient (Chronic) Pneumonia (Acute) POLST (Physician Orders for Life-Sustaining Treatment) (Acute) done 03/26/19; DNR/DNI Positive blood cultures (Ruled-out) Pulmonary emboli (Inactive) Recurrent urinary tract infection (Resolved) Restless leg syndrome (Acute) SOB (shortness of breath) (Resolved) Spinal stenosis (Acute) Stage IV breast cancer in female (Chronic) Toxic metabolic encephalopathy (Resolved) Uncontrolled pain (Resolved) Unsteady gait (Chronic) Urinary incontinence (Acute) UTI (urinary tract infection) (Resolved) Surgical History H/O bilateral mastectomy (Acute) H/O colonoscopy with polypectomy (Acute) H/O mastectomy (Chronic) bilateral History of carpal tunnel release of both wrists (Acute) Port-A-Cath in place (Acute) Status post transsphenoidal pituitary resection (Acute) Family History Father , age 83 from complications of diabetes Prostate cancer Diabetes Mother , age 79 from complications of Crohn's disease and colitis Crohn's disease Colitis Daughter No problems noted. Daughter No problems noted. Brother Arthritis severe Obesity Sister Diabetes Obesity Sister No problems noted. Sister No problems noted. Social History Smoking/Tobacco Use Status: Former Tobacco Use Alcohol Intake: never Drug use: Never Substance use type: does not use Caregiver/Support person: Yes Household members: children Number of Children: 2 Communication Needs: Hard of Hearing and Corrective Lenses Education Level: middle school Do you need help understanding health information?: Always current occupation: on disability Pets and animals: Yes (4 cats, 3 dogs, 1 bird, 6 hermit crabs) Pets and animals: cat(s), dog(s), bird(s) and other Details: hermit crabs Current gender identity: female What is your relationship status?: How often do you talk on the phone with friends or family?: once per week How often do you get together with friends or relatives?: three or more times per week Panel score (0-1 are the most socially isolated patients): 1 What type of physical activity do you participate in: none, sedentary lifestyle, wheelchair-bound and additional Details: needs a new wheelchair, cannot walk far, just a few steps Special pedro pablo needs: No Seatbelt use: always Working smoke detector in home: Yes Fire extinguisher in home: Yes Firearms in home: No Do you feel safe at home: Yes Do you feel safe in your relationship?: Yes Additional Social history: , with 2 children. 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 She is not currently working and is on disability. Has a history of tobacco, quit in 1992. Reports rare use of alcohol only. Lives with daughter Bhargavi in [place], and her other daughter is close. Uses a walker to ambulate. Hard to do recently, depending more on WC. In a lot of pain. Recent scans show progression of breast cancer. Meds Home Medications and Allergies Home Medications Medication Instructions Recorded Confirmed Type Spiriva Respimat 1 puff INHALATION DAILY 04/03/17 11/03/19 History budesonide-formoterol [Symbicort] 2 puff INHALATION BID 04/03/17 11/03/19 History cyanocobalamin (vitamin B-12) 1,000 mcg PO DAILY 04/03/17 11/03/19 History [Vitamin B-12] folic acid 1 mg PO DAILY 04/03/17 11/03/19 History montelukast [Singulair] 10 mg PO DAILY 04/03/17 11/03/19 History ondansetron HCl [Zofran] 8 mg PO TID PRN 04/03/17 11/03/19 History Trulicity 1.5 mg SUBCUT QWEEK 05/06/18 11/03/19 History levothyroxine 150 mcg PO DAILY 05/06/18 11/03/19 History benzonatate 200 mg PO TID PRN #15 cap 05/10/18 10/20/19 Rx Eliquis 5 mg PO BID 07/25/19 11/03/19 History Glucagon (HCl) Emergency Kit 1 mg PRN PRN 07/25/19 11/03/19 History Humulin R U-500 (Conc) Kwikpen 40 unit SUBCUT QNOON 07/25/19 11/03/19 History Humulin R U-500 (Conc) Kwikpen 40 unit SUBCUT QPM 07/25/19 11/03/19 History Humulin R U-500 (Conc) Kwikpen 70 unit SUBCUT QAM 07/25/19 11/03/19 History Narcan 1 spray INTRANASAL PRN PRN 07/25/19 11/03/19 History cranberry 450 mg PO DAILY 07/25/19 11/03/19 History ferrous sulfate 325 mg PO DAILY 07/25/19 11/03/19 History guaifenesin [Mucinex] 600 mg PO BID PRN 07/25/19 11/03/19 History omeprazole 40 mg PO DAILY 07/25/19 11/03/19 History Lactobacillus acidophilus 1,000 mmu cells PO BID #30 cap 08/01/19 11/03/19 Rx hydrocortisone 5 mg PO DAILY@1500 #0 tab 08/24/19 11/03/19 Rx hydrocortisone 20 mg PO DAILY #0 tab 08/24/19 11/03/19 Rx denosumab 120 mg/1.7 mL (70 mg/mL) 120 mg SC Q4W #1.7 ml 10/19/19 11/03/19 Rx subcutaneous solution exemestane 25 mg tablet 25 mg PO DAILY #90 tab 10/19/19 10/20/19 Rx fentanyl 100 mcg/hr transdermal 1 patch TD Q72H #10 each MDD 125 10/19/19 10/20/19 Rx patch mcg fentanyl 25 mcg/hr transdermal 1 patch TD Q72H #10 each MDD 125 10/19/19 10/20/19 Rx patch mcg hydrocodone 7.5 mg-acetaminophen 2 tab PO Q8H PRN #90 tab MDD 45 mg 10/19/19 11/03/19 Rx 325 mg tablet vancomycin [Vancocin] 125 mg PO QID 10 Days #40 cap 10/26/19 11/03/19 Rx everolimus (antineoplastic) 10 mg PO DAILY 11/03/19 11/03/19 History [Afinitor] Allergies Allergy/AdvReac Type Severity Reaction Status Date / Time bee venom protein (honey bee) Allergy Unknown Unverified 10/20/19 20:21 Latex, Natural Rubber AdvReac Intermediate Unverified 10/20/19 20:21 adhesive tape AdvReac Mild Unverified 10/20/19 20:21 Exam Narrative Exam Narrative: General: Very pleasant middle-aged obese female who is A&Ox3 but is a little more lethargic and slower to respond than her baseline Neurological: A&Ox3, mental status as above, no focal deficits Psychiatric: Appropriate speech pattern/content Skin: Chronic venous stasis dermatitis with skin abrasions BLEs HEENT: Atraumatic, normocephalic, EOMI, dry MM, clear oropharynx, no submandibular or cervical lymphadenopathy, no goiter or JVD Cardiovascular: RRR, mildly tachycard Lungs: CTAB Gastrointestinal: soft, tender in LUQ, not distended, +BS Genitourinary: has a alex - clear yellow urine Extremities: chronic BLE nonpitting edema with chronic venous stasis Results Imaging Additional studies: EKG: ST, HR 102, no acute ischemia CXR: atelectasis, cephalization, no PNA. No air under the diaphragm. Labs Result diagrams: 11/03/19 11:50 11/03/19 11:50 Labs: Laboratory Results - last 24 hr 11/03/19 11/03/19 11/03/19 11:04 11:45 11:50 WBC RBC Hgb Hct MCV MCH MCHC RDW Plt Count MPV Immature Gran % Neutrophils % Lymphocytes % Monocytes % Eosinophils % Basophils % Nucleated RBC % Absolute Neutrophils Absolute Lymphocytes Absolute Monocytes Absolute Eosinophils Absolute Basophils RBC Morphology Polychromasia Hypochromasia Anisocytosis VBG Lactate Cancelled Sodium 135 L Potassium 4.5 Chloride 100 Carbon Dioxide 25.5 Anion Gap 9.5 BUN 24 H Creatinine 1.77 H Estimated GFR/1.73 m2 29.26 Glucose 358 H Calcium 8.9 Magnesium 1.8 Total Bilirubin 0.4 AST 72 H ALT 20 Alkaline Phosphatase 179 H Troponin I < 0.05 Total Protein 7.2 Albumin 2.8 L Urine Color Yellow Urine Clarity Clear Urine pH 5.5 Ur Specific Strandquist 1.025 Urine Protein 30 H Urine Ketones Negative Urine Blood Moderate H Urine Nitrite Negative Urine Bilirubin Negative Urine Urobilinogen 0.2 Ur Leukocyte Esterase Negative Urine RBC 10-20 H Urine WBC 0-2 Ur Epithelial Cells Few Urine Crystals Moderate amorphous Urine Bacteria Negative Urine Casts Negative Urine Mucus Negative Ur Culture Indicated? No Urine Glucose Negative 11/03/19 11/03/19 11/03/19 11:50 14:15 14:15 WBC 12.30 H RBC 3.10 L Hgb 8.6 L Hct 28.0 L MCV 90.3 MCH 27.7 MCHC 30.7 L RDW 16.5 H Plt Count 223 MPV 9.4 Immature Gran % 0.4 Neutrophils % 90.3 Lymphocytes % 6.3 Monocytes % 2.4 Eosinophils % 0.4 Basophils % 0.2 Nucleated RBC % 0 Absolute Neutrophils 11.11 H Absolute Lymphocytes 0.77 L Absolute Monocytes 0.30 Absolute Eosinophils 0.05 Absolute Basophils 0.02 RBC Morphology See below Polychromasia Present Hypochromasia 1+ Anisocytosis 1+ VBG Lactate 1.8 H Sodium Potassium Chloride Carbon Dioxide Anion Gap BUN Creatinine Estimated GFR/1.73 m2 Glucose Calcium Magnesium Total Bilirubin AST ALT Alkaline Phosphatase Troponin I < 0.05 Total Protein Albumin Urine Color Urine Clarity Urine pH Ur Specific Strandquist Urine Protein Urine Ketones Urine Blood Urine Nitrite Urine Bilirubin Urine Urobilinogen Ur Leukocyte Esterase Urine RBC Urine WBC Ur Epithelial Cells Urine Crystals Urine Bacteria Urine Casts Urine Mucus Ur Culture Indicated? Urine Glucose Last Vital Signs Temp 37.3 C 11/03/19 11:06 Pulse 93 H 11/03/19 15:20 Resp 21 11/03/19 14:50 BP 98/29 L 11/03/19 15:20 Pulse Ox 89 L 11/03/19 14:50 COVID-19 Screening Have you,or household,traveled outside [place] in last 14 days?: No
[2019-11-03 17:46] LABS: Lactate 1.4 mmol/L (0.6-1.4)
[2019-11-03] MEDS: Normal Saline Flush 10 ML SYR IVP (18:00)
--- NOTE | 2019-11-03 18:11 | DI.RAD_ITS ---
EXAM: XR PORTABLE CHEST AP CLINICAL HISTORY: Fever, weakness PUI TECHNIQUE: 2D digital imaging was performed. COMPARISON: CR,XR XR PORTABLE CHEST AP from 10/20/2019 FINDINGS: MEDIASTINUM: Normal. HEART: Cardiomegaly. PULMONARY VASCULATURE: Normal. LUNGS: Atelectasis in the lung bases. No focal consolidating infiltrates. PLEURAL SPACE: No pleural effusion or pneumothorax. BONE:Within normal limits for the patient's age. OTHER FINDINGS:Stable indwelling central venous catheter. The tip is in good position in the SVC. IMPRESSION: Basilar atelectasis. DATA REPOSITORY: RADIATION DOSE DELIVERED:
--- NOTE | 2019-11-03 18:30 | DI.VRAD_ITS ---
PROCEDURE INFORMATION: Exam: XR Chest, 1 View Exam date and time: 11/03/2019 6:11 PM Age: 59 years old Clinical indication: Other: Fever, weakness TECHNIQUE: Imaging protocol: XR of the chest Views: 1 view. COMPARISON: CR XR CHEST 2V PA LATERAL 10/24/2019 11:46 AM FINDINGS: Tubes, catheters and devices: Stable right chest port. Lungs: Mild streaky bibasilar opacities. Pleural space: No pleural effusion or pneumothorax. Heart/Mediastinum: The heart is enlarged. Bones/joints: Unremarkable. IMPRESSION: Bibasilar atelectasis or infiltrate. Dictated and Authenticated by: Royal Yoo MD. Ordering:LOUIS Aquino MD
[2019-11-03 19:53] LABS: Lactate 1.3 mmol/L (0.6-1.4)
[2019-11-03] MEDS: Apixaban 5 MG TAB PO (20:54)
[2019-11-03] MEDS: fentaNYL 100 MCG PATCH TD (20:54)
[2019-11-03] MEDS: Fidaxomicin 200 MG TAB PO (20:55)
[2019-11-03] MEDS: Hydrocortisone SOD SUC. 100 MG VIAL 50 MG IVP (20:55)
[2019-11-03] MEDS: Insulin Aspart 300 UNITS/3 ML PEN SC (22:18)
[2019-11-04] VITALS (79 sets, daily range): BP systolic 101–126; BP diastolic 42–74; PULSE 70–89; RESP 10–18; TEMP 35.9–36.1; O2SAT 90–100
--- NOTE | 2019-11-04 | DI.CT_ITS ---
EXAM: CT ABDOMEN PELVIS WO CLINICAL HISTORY: sepsis, LUQ pain, no PO or IV contrast. TECHNIQUE: Imaging Protocol: Axial computed tomography images with coronal and sagittal reformatted images were created and reviewed. COMPARISON: CT CT ABDOMEN PELVIS W from 10/05/2019 FINDINGS: There is patient motion artifact. ABDOMEN: Lung Bases: Normal where visualized. Liver: Liver has a nodular contour with an enlarged left lobe suggesting hepatic cirrhosis. The live r measures 21 cm in length. No measurable mass. Gallbladder and biliary tract: No radiodense calculus or biliary ductal dilation. Pancreas: Normal density, no abnormal calcifications or inflammatory process. Spleen: Normal. Kidneys: Normal size, contour and axis.No radiodense stones or obstructive uropathy. No masses seen. Adrenal glands: No mass is seen. Lymph nodes: Within normal limits. Abdominal Aorta: Abdominal portion non-dilated. Atherosclerosis. PELVIS: Bladder:There is a Mendoza catheter within a nondistended urinary bladder. Bowel: No obstruction or bowel wall thickening. No evidence of acute appendicitis. Colonic diverticul osis without evidence of acute diverticulitis. Peritoneal cavity: No ascites, collection or mesenteric inflammatory response Reproductive organs: Calcified uterine masses consistent with fibroids. Bones: Degenerative changes. Soft Tissues: Mild diffuse subcutaneous edema. IMPRESSION: 1. Hepatomegaly and hepatic cirrhosis. 2. Colonic diverticulosis but no evidence of acute diverticulitis. 3. Diffuse mild subcutaneous edema. RADIATION DOSE DELIVERED: Total DLP DATA REPOSITORY: All CT scans at this facility are submitted to the National Radiology Data Registry (NRDR) Dose Index Registry (DIR) with the [employer] (ACR). RADIATION OPTIMIZATION: All CT scans at this facility use at least one of these dose optimization te chniques: automated exposure control; mA and/or kV adjustment per patient size (includes targeted exa ms where dose is matched to clinical indication); or iterative reconstruction.
[2019-11-04] MEDS: Hydrocortisone SOD SUC. 100 MG VIAL 50 MG IVP ×4 (01:03→19:33)
[2019-11-04] MEDS: Normal Saline 1,000 ML 125 ML IV ×2 (01:03→09:14)
[2019-11-04] MEDS: Levothyroxine 150 MCG TAB PO (05:43)
[2019-11-04 07:18] LABS: Anion Gap 5.9 mmol/L (3-11); BUN 22 mg/dL (7-18); CO2 27.1 mmol/L (21.0-32.0); CREATININE 1.34 mg/dL (0.55-1.02); Chloride 103 mmol/L (98-107); Estimated GFR 40.35 (mL/min/1.73m2); Glucose 309 mg/dL (74-106); Potassium 4.2 mmol/L (3.5-5.1); Sodium 136 mmol/L (136-145)
[2019-11-04 07:34] LABS: Abs Immature Grans 0.02 10^3/uL (0.0-0.06); Absolute Basophil Count 0.01 10^3/uL (0.0-0.2); Absolute Lymphocyte Count 0.74 10^3/uL (1.2-3.4); Absolute Monocyte Count 0.19 10^3/uL (0.1-0.8); Basophils % 0.1; HCT 24.2 % (36.0-46.0); HGB 7.6 g/dL (11.2-15.7); Immature Grans % 0.2; Lymphocytes % 9.1; MCH 27.8 pg (27.0-33.0); MCHC 31.4 % (32.0-36.0); MCV 88.6 fL (80-95); MPV 9.8 fL (8.0-11.0); Monocytes % 2.3; Neutrophils % 88.3; Nucleated RBC 0 %; Platelet Count 156 10^3/uL (130-400); RBC 2.73 10^6/uL (3.93-5.22); RDW 16.2 % (11.7-14.6); RDW-SD 53.2 fL; WBC 8.15 10^3/uL (4.4-10.8)
--- NOTE | 2019-11-04 08:21 | W.PM.PROGNOT ---
Date of Service Date of service: 11/04/19 Time of Service: 12:38 Assessment and Plan Assessment and plan (1) Sepsis: Status: Suspected Assessment and plan: Ddx: recurrent C. Diff, possible intraabdominal process given LUQ pain, PNA not well visualized on CXR, bacteremia such as from the infected infusaport. Obtain CT abdomen. Continue IVF flagyl and empiric fidoxamycin (could have an ileus due to C.Diff). Continue stress dose steroids, Await blood culture results. Decrease IVF. Can likely be transferred out of ICU today assuming CT findings are not acute. Should she deteriorate tonight, the antibiotic coverage should be expanded. Covid-19 ruled out with a negative nasopharyngeal PCR. (2) Sepsis associated hypotension: Status: Resolved Assessment and plan: BP normalized with IVF and stress dose steroids as well as with IV flagyl. No change in tx today. (3) Recurrent Clostridium difficile diarrhea: Status: Suspected Assessment and plan: The most likely underlying etiology, but no recurrences in diarrhea since arrival. Obtain CT abdomen - r/o ileus, perforation, megacolon. Continue empiric therapy. (4) Adrenal insufficiency: Status: Chronic Assessment and plan: Acute on chronic. Looking for the infectious culprit. Continue stress dose steroids. (5) Acute kidney injury superimposed on chronic kidney disease: Status: Acute Assessment and plan: Better. Continue (but decrease) IVF. (6) Toxic metabolic encephalopathy: Status: Resolved Assessment and plan: Due to suspected underlying sepsis and adrenal insufficiency. Resolved. Monitor mental status. (7) Diabetes mellitus: Status: Chronic Assessment and plan: Resume home doses of U500 insulin. Qualifiers: Diabetes mellitus type: type 2 Diabetes mellitus long-term insulin use: with long-term use Diabetes mellitus complication status: with kidney complications Diabetes mellitus complication detail: with chronic kidney disease Chronic kidney disease stage: stage 3 (moderate) Qualified Code(s): E11.22 - Type 2 diabetes mellitus with diabetic chronic kidney disease; N18.3 - Chronic kidney disease, stage 3 (moderate); Z79.4 - custodial (current) use of insulin (8) History of pulmonary embolism: Status: Chronic Assessment and plan: Continue eliquis (9) Discharge planning issues: Status: Acute Assessment and plan: DNR/DNI. The patient met with palliative care. If she ever is brought to the ED obtunded and unable to lift up her head from the pillow, she states she would like to be made comfort measures only. Subjective Subjective Interval history since last seen: Candace feels better, but still has LUQ pain. Reports getting a cancer shot (xgeva) on Friday. Denies dizziness, chest pain, shortness of breath, nausea, vomiting. No diarrhea since arrival to ICU. Agrees to have a CT scan. Good BPs. No fevers. 2L of O2 - 95% overnight. Exam Narrative Exam Narrative: General: Pleasant obese female, A&Ox3, appears to be back to baseline from mental status stand point. HEENT: EOMI, MMM Cardiovascular: RRR, no m/r/g Lungs: CTAB Gastrointestinal: soft, tender in LUQ, not distended, +BS Extremities: chronic BLE nonpitting edema with chronic venous stasis and skin tears Objective Objective Clinical Data: Abnormal lab results 11/03/19 11/03/19 11/03/19 Range/Units 11:45 11:50 11:50 WBC 12.30 H (4.4-10.8) 10^3/uL RBC 3.10 L (3.93-5.22) 10^6/uL Hgb 8.6 L (11.2-15.7) g/dL Hct 28.0 L (36.0-46.0) % MCHC 30.7 L (32.0-36.0) % RDW 16.5 H (11.7-14.6) % Absolute Neutrophils 11.11 H (1.2-6.7) 10^3/uL Absolute Lymphocytes 0.77 L (1.2-3.4) 10^3/uL VBG Lactate (0.6-1.4) mmol/L Sodium 135 L (136-145) mmol/L BUN 24 H (7-18) mg/dL Creatinine 1.77 H (0.55-1.02) mg/dL Glucose 358 H (74-106) mg/dL Calcium (8.5-10.1) mg/dL AST 72 H (15-37) U/L Alkaline Phosphatase 179 H (46-116) U/L Albumin 2.8 L (3.4-5.0) g/dL Urine Protein 30 H (Negative) mg/dL Urine Blood Moderate H (Negative) Urine RBC 10-20 H (0-2) HPF 11/03/19 11/04/19 Range/Units 14:15 06:00 WBC (4.4-10.8) 10^3/uL RBC (3.93-5.22) 10^6/uL Hgb (11.2-15.7) g/dL Hct (36.0-46.0) % MCHC (32.0-36.0) % RDW (11.7-14.6) % Absolute Neutrophils (1.2-6.7) 10^3/uL Absolute Lymphocytes (1.2-3.4) 10^3/uL VBG Lactate 1.8 H (0.6-1.4) mmol/L Sodium (136-145) mmol/L BUN 22 H (7-18) mg/dL Creatinine 1.34 H (0.55-1.02) mg/dL Glucose 309 H (74-106) mg/dL Calcium 8.0 L (8.5-10.1) mg/dL AST (15-37) U/L Alkaline Phosphatase (46-116) U/L Albumin (3.4-5.0) g/dL Urine Protein (Negative) mg/dL Urine Blood (Negative) Urine RBC (0-2) HPF Vital Signs Temperature 36.0 C L 11/04/19 05:30 Temperature Source Temporal Artery Scan 11/04/19 05:30 Pulse 75 11/04/19 04:00 Pulse 80 11/04/19 07:00 Respiratory Rate 14 11/04/19 07:00 Respiratory Effort 11/04/19 05:30 Respiratory Depth Normal 11/04/19 05:30 Respiratory Pattern Normal 11/04/19 05:30 Blood Pressure 124/58 L 11/04/19 04:00 Blood Pressure Mean 73 11/04/19 04:00 Blood Pressure Position Sitting 11/03/19 15:30 Pulse Oximetry 98 11/04/19 07:00 Oxygen Delivery Method Nasal Cannula 11/04/19 00:20 Oxygen Flow Rate 2 11/04/19 00:20 Pain Level 9 11/04/19 05:43 Comment 11/03/19 11:06 Intake & Output 11/03/19 11/03/19 11/04/19 11:59 23:59 11:59 Intake Total 2150 / 2150 1000 / 1000 Output Total 600 / 600 1100 / 1100 Balance 1550 / 1550 -100 / -100 Weight 146.057 kg 146.057 kg Intake: IV 2149 1000 / 1000 Output: Urine 600 / 600 1100 / 1100 Other: Urine Color Yellow Yellow Urine Appearance Clear Clear Urine Odor None None Voiding Methods Indwelling Catheter Indwelling Catheter Laboratory Results WBC 12.30 10^3/uL (4.4-10.8) H 11/03/19 11:50 RBC 3.10 10^6/uL (3.93-5.22) L 11/03/19 11:50 Hgb 8.6 g/dL (11.2-15.7) L 11/03/19 11:50 Hct 28.0 % (36.0-46.0) L 11/03/19 11:50 MCV 90.3 fL (80-95) 11/03/19 11:50 MCH 27.7 pg (27.0-33.0) 11/03/19 11:50 MCHC 30.7 % (32.0-36.0) L 11/03/19 11:50 RDW 16.5 % (11.7-14.6) H 11/03/19 11:50 Plt Count 223 10^3/uL (130-400) 11/03/19 11:50 MPV 9.4 fL (8.0-11.0) 11/03/19 11:50 Immature Gran % 0.4 11/03/19 11:50 Neutrophils % 90.3 11/03/19 11:50 Lymphocytes % 6.3 11/03/19 11:50 Monocytes % 2.4 11/03/19 11:50 Eosinophils % 0.4 11/03/19 11:50 Basophils % 0.2 11/03/19 11:50 Nucleated RBC % 0 % 11/03/19 11:50 Absolute Neutrophils 11.11 10^3/uL (1.2-6.7) H 11/03/19 11:50 Absolute Lymphocytes 0.77 10^3/uL (1.2-3.4) L 11/03/19 11:50 Absolute Monocytes 0.30 10^3/uL (0.1-0.8) 11/03/19 11:50 Absolute Eosinophils 0.05 10^3/uL (0.0-0.7) 11/03/19 11:50 Absolute Basophils 0.02 10^3/uL (0.0-0.2) 11/03/19 11:50 RBC Morphology See below 11/03/19 11:50 Polychromasia Present 11/03/19 11:50 Hypochromasia 1+ 11/03/19 11:50 Anisocytosis 1+ 11/03/19 11:50 VBG Lactate 1.3 mmol/L (0.6-1.4) 11/03/19 19:49 Sodium 136 mmol/L (136-145) 11/04/19 06:00 Potassium 4.2 mmol/L (3.5-5.1) 11/04/19 06:00 Chloride 103 mmol/L (98-107) 11/04/19 06:00 Carbon Dioxide 27.1 mmol/L (21.0-32.0) 11/04/19 06:00 Anion Gap 5.9 mmol/L (3-11) 11/04/19 06:00 BUN 22 mg/dL (7-18) H 11/04/19 06:00 Creatinine 1.34 mg/dL (0.55-1.02) H 11/04/19 06:00 Estimated GFR/1.73 m2 40.35 (mL/min/1.73m2) 11/04/19 06:00 Glucose 309 mg/dL (74-106) H 11/04/19 06:00 Calcium 8.0 mg/dL (8.5-10.1) L 11/04/19 06:00 Magnesium 2.0 mg/dL (1.8-2.4) 11/04/19 06:00 Total Bilirubin 0.4 mg/dL (0.2-1.0) 11/03/19 11:50 AST 72 U/L (15-37) H 11/03/19 11:50 ALT 20 U/L (14-59) 11/03/19 11:50 Alkaline Phosphatase 179 U/L (46-116) H 11/03/19 11:50 Troponin I < 0.05 ng/mL (<0.06) 11/03/19 14:15 Total Protein 7.2 g/dL (6.4-8.2) 11/03/19 11:50 Albumin 2.8 g/dL (3.4-5.0) L 11/03/19 11:50 Urine Color Yellow (Yellow) 11/03/19 11:45 Urine Clarity Clear (Clear) 11/03/19 11:45 Urine pH 5.5 (5-8) 11/03/19 11:45 Ur Specific [place] 1.025 (1.005-1.025) 11/03/19 11:45 Urine Protein 30 mg/dL (Negative) H 11/03/19 11:45 Urine Ketones Negative mg/dL (Negative) 11/03/19 11:45 Urine Blood Moderate (Negative) H 11/03/19 11:45 Urine Nitrite Negative (Negative) 11/03/19 11:45 Urine Bilirubin Negative (Negative) 11/03/19 11:45 Urine Urobilinogen 0.2 EU/dL (Up TO 0.2) 11/03/19 11:45 Ur Leukocyte Esterase Negative (Negative) 11/03/19 11:45 Urine RBC 10-20 HPF (0-2) H 11/03/19 11:45 Urine WBC 0-2 HPF (0-5) 11/03/19 11:45 Ur Epithelial Cells Few HPF (Negative) 11/03/19 11:45 Urine Crystals Moderate amorphous HPF (Negative) 11/03/19 11:45 Urine Bacteria Negative HPF (Negative) 11/03/19 11:45 Urine Casts Negative LPF (Negative) 11/03/19 11:45 Urine Mucus Negative (Negative) 11/03/19 11:45 Ur Culture Indicated? No 11/03/19 11:45 Urine Glucose Negative mg/dL (Negative) 11/03/19 11:45
[2019-11-04] MEDS: Apixaban 5 MG TAB PO ×2 (08:27→19:32)
[2019-11-04] MEDS: Omeprazole 20 MG CAPCR 40 MG PO (08:28)
[2019-11-04] MEDS: Montelukast 10 MG TAB PO (08:28)
[2019-11-04] MEDS: Folic Acid 1 MG TAB PO (08:28)
[2019-11-04] MEDS: Ferrous Sulfate 325 MG TAB PO (08:28)
[2019-11-04] MEDS: Cyanocobalamin 500 MCG TAB 1000 MCG PO (08:28)
[2019-11-04] MEDS: Fidaxomicin 200 MG TAB PO ×2 (08:28→19:32)
[2019-11-04] MEDS: Tiotropium Bromide-Respimat 10 PUFF INH IH (08:29)
[2019-11-04] MEDS: Budesonide/Formoterol 160/4.5 6 GM 60 PUFF INH IH ×2 (08:30→21:55)
[2019-11-04] MEDS: Insulin Aspart 300 UNITS/3 ML PEN SC ×4 (08:30→21:59)
[2019-11-04 09:14] LABS: Basophilic Stippling Present; Diff Comment RBC Morph Reviewed; Polychromasia Present
[2019-11-04 09:48] LABS: COVID-19 RT-PCR UVMMC Result Negative (Negative)
--- NOTE | 2019-11-04 10:47 | NUR.NOTE ---
Nursing Note: Aluren, career agent at bedside.
--- NOTE | 2019-11-04 11:15 | NUR.NOTE ---
Nursing Note: Chaplain Mary Carmen at bedside.
--- NOTE | 2019-11-04 12:18 | INITIAL_ITS ---
- If Service Date Differs Date of service: 11/04/19 Time of Service: 12:18 Care Management Initial Assess REASON FOR HOSPITALIZATION:: Sepsis PAST MEDICAL HISTORY/PAST SURGICAL HISTORY:: Medical History . Acute confusion due to infection (Resolved). Acute UTI (Inactive). Adenoma of pituitary (Chronic). benign; renoved surgically. on steroids and synthroid to replete. Bacteremia (Resolved). Citrobacter. C. difficile diarrhea (Acute). Cancer related pain (Chronic). improved with fentanyl patch. Carpal tunnel syndrome (Acute). Chronic adrenal insufficiency (Acute). Chronic pain (Chronic). Chronic respiratory failure with hypoxia (Chronic). Chronic venous stasis dermatitis (Chronic). COPD (chronic obstructive pulmonary disease) (Chronic). On nocturnal oxygen - 2L prn. Depression (Chronic). Diabetes mellitus (Chronic). Insulin dependent. Discharge planning issues (Resolved). Diverticulosis (Acute). DNI (do not intubate) (Acute). DNR (do not resuscitate) (Acute). Dyslipidemia (Chronic). E. coli bacteremia (Resolved). Fatigue (Acute). Goals of care, counseling/discussion (Acute). History of breast cancer (Chronic). metastatic, with lymphatic spread and bone mets. Hyperlipidemia (Acute). Hypopituitarism (Chronic). Hypothyroidism (Chronic). Influenza B (Acute). Iron deficiency anemia (Chronic). Left lower lobe pneumonia (Resolved). Metastatic breast cancer (Chronic). Obesity (Chronic). Obstructive sleep apnea (Chronic). per [facility] records. Palliative care patient (Chronic). Pneumonia (Acute). POLST (Physician Orders for Life-Sustaining Treatment) (Acute). done 03/26/19; DNR/DNI. Positive blood cultures (Ruled-out). Pulmonary emboli (Inactive). Recurrent urinary tract infection (Resolved). Restless leg syndrome (Acute). SOB (shortness of breath) (Resolved). Spinal stenosis (Acute). Stage IV breast cancer in female (Chronic). Toxic metabolic encephalopathy (Resolved). Uncontrolled pain (Resolved). Unsteady gait (Chronic). Urinary incontinence (Acute). UTI (urinary tract infection) (Resolved). Surgical History . H/O bilateral mastectomy (Acute). H/O colonoscopy with polypectomy (Acute). H/O mastectomy (Chronic). bilateral. History of carpal tunnel release of both wrists (Acute). Port-A-Cath in place (Acute). Status post transsphenoidal pituitary resection (Acute) PREVIOUS FUNCTIONAL STATUS/SOCIAL/FAMILY SUPPORTS:: Candace lives in a single family home with her daughter Kiki and her children, in [facility]. She has two daughters who reside locally. She is currently disabled and receives [facility] highest needs. Kiki is her primary caregiver. Candace utilizes a walker for ambulation, and a wheeled walker for distance. She is dependent on her daughter for transportation to and from appointments. CURRENT FUNCTIONAL STATUS:: Candace was sitting up in bed when CM met with her. She was pleasant and smiling and engaged readily with CM. Candace stated that she is feeling much better and is very happy that she did not have to go to [facility]. She shared that she hopes that she will be able to go home soon. Candace also shared that she had her Urology Consult at [facility] and is scheduled to have a procedure when she is out of the hospital. ADVANCE DIRECTIVES:: on file. Daughter Kiki [facility] Has patient been provided with info about the portal/API?: Yes Did the patient sign up for the portal?: No CODE STATUS:: DNR/DNI INSURANCE COVERAGE / FINANCIAL ISSUES:: Medicare. Medicaid CURRENT HOME/COMMUNITY SERVICES/EQUIPMENT:: Candace has home health nursing and PT through [facility]. She also has [facility] highest needs. She uses a walker for ambulation. and PRIMARY CARE PHYSICIAN:: Nurys Martinez POTENTIAL DISCHARGE NEEDS:: Follow up with PCP, oncologist and discharge plan of care PATIENT/FAMILY EDUCATION NEEDS:: Discharge plan, limitations, follow up plan, Ask Me Three TRANSPORTATION:: via private vehicle with daughter PLAN:: Candace will be discharged home with a resumption of home health services. She will follow up with her PCP and community providers and discharge plan of care. Candace will transport with her daughter. CM will continue to support patient and family and assess for discharge planning needs.
--- NOTE | 2019-11-04 14:03 | PHA.REVIEW ---
Pharmacy Admission Review - Admission Clinical Review (Last Reviewed 11/03/19 @ 11:33 by Kenia Melgoza) Discharge planning issues (Acute) Diarrhea (Acute) Acute kidney injury superimposed on chronic kidney disease (Acute) bee venom protein (honey bee) Allergy (Unknown, Unverified 10/20/19 20:21) Latex, Natural Rubber Adverse Reaction (Intermediate, Unverified 10/20/19 20:21) adhesive tape Adverse Reaction (Mild, Unverified 10/20/19 20:21) Height 5 ft 9 in Weight 146.057 kg - Renal Dosing Renal Dosing: BUN 22 mg/dL (7-18) H 11/04/19 06:00 Creatinine 1.34 mg/dL (0.55-1.02) H 11/04/19 06:00 Medications needing adjustments: Reviewed (CrCl 69.2 ml/min based of abw, all meds ok) - Anticoagulation Anticoagulation: Hgb 7.6 g/dL (11.2-15.7) L 11/04/19 06:00 Hct 24.2 % (36.0-46.0) L 11/04/19 06:00 Plt Count 156 10^3/uL (130-400) 11/04/19 06:00 Creatinine 1.34 mg/dL (0.55-1.02) H 11/04/19 06:00 DVT Prohphylaxis: N/A Therapeutic Anticoagulation: Reviewed Medications: Apixaban - Opiate Usage Evaluate Pain Scale/Pains Meds: Reviewed Scheduled Bowel Reg ordered if on Opiates?: No (suspected c.diff) - Relevant Labs Sodium 136 mmol/L (136-145) 11/04/19 06:00 Potassium 4.2 mmol/L (3.5-5.1) 11/04/19 06:00 Chloride 103 mmol/L (98-107) 11/04/19 06:00 Magnesium 2.0 mg/dL (1.8-2.4) 11/04/19 06:00 - DM Control DM Control: Glucose 309 mg/dL (74-106) H 11/04/19 06:00 Finger Stick Blood Glucose 307 Finger Stick Blood Glucose 312 - Heart Failure/OR Heart Failure/OR: Troponin I < 0.05 ng/mL (<0.06) 11/03/19 14:15 - BP Control BP Control: Blood Pressure 120/45 Blood Pressure 122/51 Blood Pressure 114/42 Blood Pressure 118/48 Blood Pressure 124/58 Blood Pressure 121/59 - Qtc Review If Elevated: N/A - IV to PO Switch IV Medications: Reviewed - Home Meds Home Med List reviewed: Intervened Relevent Home Meds Not ordered & why?: Med list was missing lyrica, tolterodine, and atorvastatin and I removed 25mcg fentanyl patch as patient reports not using it yet - noted this in the comments field of the 100mcg dose; Humulin R doses should be adjusted in med list prior to discharge - Current meds Current Medication Order Review: Reviewed - Comments Comments/Follow Ups: Dificid + Metronidazole continue
[2019-11-04] MEDS: Normal Saline Flush 10 ML SYR IVP (15:00)
--- NOTE | 2019-11-04 15:38 | CHAPLAIN ---
Candace is well know to hospital staff. She was last here last week. She said she is feeling much better than yesterday when she was brought her by ambulance. Dr. Royal from [facility] visited while I was in Candace's room and they talked about Candace's goals of care. She agreed to be transported to [facility] if it was necessary, as long as she can talk and lift her head up. She said she would want treatment as long as she can communicate. Her daughter Kiki knows Candace's preferences and they've talked about it, Candace said. Kiki is Candace's caregiver at home.
--- NOTE | 2019-11-04 16:33 | WOUNDCONS ---
- If Service Date Differs Date of service: 11/04/19 Time of Service: 16:34 Wound Initial Evaluation Narrative: Pt seen in ICU @ bedside. Agreeable to consult. Pt is well known to this scribe. Has chronic health problems, including venous stasis disease, which contributed to skin tear on LLE POA. Chart reviewed. LLE Wound cleansed, Mepilex applied, recommend changing weekly. Site doesn't show any S/Sx of infection @ this time. Pt also has small abrasion on RLE just below greco. old bandaid removed, area cleansed, new bandaid removed. Photo not taken @ this time. - Wound Left Lower Greco Wound Type: Skin Tear Wound Length: 0.1 cm Wound Width: 2.1 cm Wound Depth: 0.1 cm Wound Drainage Amount: None (wound bed dry) - Circulation, Sensation, Motion Edema Degree: 1+ - Treatment/Dressing Change Dressing Comment: Mepilex applied to LLE. Bandaid aplied to Right upper greco. - Recomendation Physcian/Nurse Practioner Notified: Yes (Dr. Reno) Treatment Time - Time Total Time Spent with Patient: 10 minuets. Education on nutrition included in teaching. - Patient Will be Seen Weekly Treatment: 1x/wk
--- NOTE | 2019-11-04 17:21 | PCNE_ITS ---
Date of service: 11/04/19 History of Present Illness History of Present Illness Chief Complaint: goals of care discussion, multiple admissions Narrative: I am familiar with Candace from both inpatient and outpatient visits. I saw her last in the office, accompanied by her daughter. She was admitted by Dr Reno the day before I saw her this time. This is her second hospitalization since my last visit with her. Today, Candace was in the ICU. She was taklative and alert. Hospital car greaser Mary Carmen Saldivar was present. Candace reported that she was admitted to the hospice as she once again had copious diarrhea with fecal incontinence at home. She was too weak to get into her daughter's van so her daughter called an ambulance to transport her. On admission, Dr Reno was concerned about possible sepsis. Candace was started on abx for c diff and given IVF. Candace did not require any pressors, despite having hypotension. She responded well to the IVF. Candace reports she is very thankful that Dr Reno went out of her way to get the appropriate antibiotic from [facility]'s pharmacy instead of transferring her to [facility]. Candace does not want to go to [facility]. She prefers getting her care through [facility]. I did ask the ICU nurses to get her oncologist, Dr Walden's, last note. Candace tells me all is well with her breast cancer. Continues on maintainace treatment. Consults Consult date: 11/04/19 Requesting physician: Sheyla Reno Assessment and Plan Assessment and plan (1) Stage IV breast cancer in female: Status: Chronic Assessment and plan: Most recent imaging showed progression of disease. Waiting for Dr Walden's oncology note. Continue cancer tx per his protocol. (2) Cancer related pain: Status: Chronic Assessment and plan: Mets are to her bones. Fentanyl patch 100 mcg working well. (3) Goals of care, counseling/discussion: Status: Acute Assessment and plan: Discussed Candace's wishes again. 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 As long as she can speak and lift her head, she wants treatment, including IF ABSOLUTELY necessary, a transfer to [facility] but not by helicopter. She is clear that she is DNR/DNI, but she is not ready for hospice. She wants to continue cancer treatment and treatment for other problems, including diarrhea and hypotension, for now. Once she cannot communicate, she is not interested in aggressive care. Staff are concerned that her daughter will not support Candace's wishes. She has seemed supportive of Candace in the past. Will check in with her. (4) Intractable diarrhea: Status: Acute Assessment and plan: Dr Reno believes c diff unlikely. Could be due to recurrent rounds of abx. Already bowels slowing down. (5) Fatigue: Status: Chronic Assessment and plan: Candace has been hospitalized at least one per month t his year, for a total of 10 admissions so far, not including ER visits. She is tired of being sick. Keeps on holding out hope that she will feel better for a while--meaning months at a time. Review of Systems Constitutional Constitutional: Reports as per HPI, Denies chills, Reports fatigue, Denies fever(s) and Denies headache(s) ENT Ears, Nose, Mouth, and Throat: Denies headache(s) Cardiovascular Cardiovascular: Reports as per HPI, Denies chest pain and Denies dyspnea Respiratory Respiratory: Reports as per HPI, Denies cough and Denies dyspnea Gastrointestinal Gastrointestinal: Reports as per HPI Musculoskeletal Musculoskeletal: Reports as per HPI and Denies back pain Integumentary/Breasts Skin/Breast: Reports as per HPI and Denies rash Neurologic Neurologic: Reports as per HPI and Denies headache(s) Psychiatric Psychiatric: Reports change in appetite (didn't feel like eating anything prior to admission; no appetite ) and Reports difficulty concentrating Endocrine Endocrine: Reports fatigue [facility] Medical History Acute confusion due to infection (Resolved) Acute UTI (Inactive) Adenoma of pituitary (Chronic) benign; renoved surgically on steroids and synthroid to replete Bacteremia (Resolved) Citrobacter C. difficile diarrhea (Acute) Cancer related pain (Chronic) improved with fentanyl patch Carpal tunnel syndrome (Acute) Chronic adrenal insufficiency (Acute) Chronic pain (Chronic) Chronic respiratory failure with hypoxia (Chronic) Chronic venous stasis dermatitis (Chronic) COPD (chronic obstructive pulmonary disease) (Chronic) On nocturnal oxygen - 2L prn Depression (Chronic) Diabetes mellitus (Chronic) Insulin dependent Discharge planning issues (Resolved) Diverticulosis (Acute) DNI (do not intubate) (Acute) DNR (do not resuscitate) (Acute) Dyslipidemia (Chronic) E. coli bacteremia (Resolved) Fatigue (Acute) Goals of care, counseling/discussion (Acute) History of breast cancer (Chronic) metastatic, with lymphatic spread and bone mets Hyperlipidemia (Acute) Hypopituitarism (Chronic) Hypothyroidism (Chronic) Influenza B (Acute) Iron deficiency anemia (Chronic) Left lower lobe pneumonia (Resolved) Metastatic breast cancer (Chronic) Obesity (Chronic) Obstructive sleep apnea (Chronic) per [facility] records Palliative care patient (Chronic) Pneumonia (Acute) POLST (Physician Orders for Life-Sustaining Treatment) (Acute) done 03/26/19; DNR/DNI Positive blood cultures (Ruled-out) Pulmonary emboli (Inactive) Recurrent urinary tract infection (Resolved) Restless leg syndrome (Acute) SOB (shortness of breath) (Resolved) Spinal stenosis (Acute) Stage IV breast cancer in female (Chronic) Toxic metabolic encephalopathy (Resolved) Uncontrolled pain (Resolved) Unsteady gait (Chronic) Urinary incontinence (Acute) UTI (urinary tract infection) (Resolved) Surgical History H/O bilateral mastectomy (Acute) H/O colonoscopy with polypectomy (Acute) H/O mastectomy (Chronic) bilateral History of carpal tunnel release of both wrists (Acute) Port-A-Cath in place (Acute) Status post transsphenoidal pituitary resection (Acute) Family History Father , age 83 from complications of diabetes Prostate cancer Diabetes Mother , age 79 from complications of Crohn's disease and colitis Crohn's disease Colitis Daughter No problems noted. Daughter No problems noted. Brother Arthritis severe Obesity Sister Diabetes Obesity Sister No problems noted. Sister No problems noted. Social History Smoking/Tobacco Use Status: Former Tobacco Use Alcohol Intake: never Drug use: Never Substance use type: does not use Caregiver/Support person: Yes Household members: children Number of Children: 2 Communication Needs: Hard of Hearing and Corrective Lenses Education Level: middle school Do you need help understanding health information?: Always current occupation: on disability Pets and animals: Yes (4 cats, 3 dogs, 1 bird, 6 hermit crabs) Pets and animals: cat(s), dog(s), bird(s) and other Details: hermit crabs Current gender identity: female What is your relationship status?: How often do you talk on the phone with friends or family?: once per week How often do you get together with friends or relatives?: three or more times per week Panel score (0-1 are the most socially isolated patients): 1 What type of physical activity do you participate in: none, sedentary lifestyle, wheelchair-bound and additional Details: needs a new wheelchair, cannot walk far, just a few steps Special pedro pablo needs: No Seatbelt use: always Working smoke detector in home: Yes Fire extinguisher in home: Yes Firearms in home: No Do you feel safe at home: Yes Do you feel safe in your relationship?: Yes Additional Social history: , with 2 children. 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 She is not currently working and is on disability. Has a history of tobacco, quit in 1992. Reports rare use of alcohol only. Lives with daughter Bhargavi in [place], and her other daughter is close. Uses a walker to ambulate. Hard to do recently, depending more on WC. In a lot of pain. Recent scans show progression of breast cancer. Exam Narrative Exam Narrative: General: Very pleasant middle-aged obese female who is A&Ox3. Talkative. Reflective. Clear about her desires. Back to her baseline Neurological: A&Ox3, no focal deficits Psychiatric: Appropriate speech pattern/content Skin: Chronic venous stasis dermatitis with skin abrasions BLEs HEENT: Atraumatic, normocephalic, EOMI, dry MM, clear oropharynx, no subman dibular or cervical lymphadenopathy, no goiter or JVD Cardiovascular: RRR, mildly tachycard Lungs: CTAB Gastrointestinal: soft, tender in LUQ, not distended, +BS Genitourinary: has a alex - clear yellow urine Extremities: chronic BLE nonpitting edema with chronic venous stasis Results Last Vital Signs Temp 96.8 F L 11/04/19 15:33 Pulse 75 11/04/19 15:00 Resp 13 09/03/20 15:30 BP 124/50 L 11/04/19 15:00 Pulse Ox 96 11/04/19 15:30 Labs Result diagrams: 11/04/19 06:00 11/04/19 06:00 Labs: Laboratory Results - last 24 hr 11/03/19 11/03/19 11/03/19 11:50 16:50 19:49 WBC RBC Hgb Hct MCV MCH MCHC RDW Plt Count MPV Immature Gran % Neutrophils % Lymphocytes % Monocytes % Eosinophils % Basophils % Nucleated RBC % Absolute Neutrophils Absolute Lymphocytes Absolute Monocytes Absolute Eosinophils Absolute Basophils RBC Morphology Polychromasia Basophilic Stippling VBG Lactate 1.4 1.3 Sodium Potassium Chloride Carbon Dioxide Anion Gap BUN Creatinine Estimated GFR/1.73 m2 Glucose Calcium Magnesium COVID-19 PCR Negative Nasopharyn COVID-19 PCR Not Applicable Ref Test Perform Site [facility] lab 11/04/19 11/04/19 06:00 06:00 WBC 8.15 D RBC 2.73 L Hgb 7.6 L Hct 24.2 L MCV 88.6 MCH 27.8 MCHC 31.4 L RDW 16.2 H Plt Count 156 MPV 9.8 Immature Gran % 0.2 Neutrophils % 88.3 Lymphocytes % 9.1 Monocytes % 2.3 Eosinophils % 0.0 Basophils % 0.1 Nucleated RBC % 0 Absolute Neutrophils 7.20 H Absolute Lymphocytes 0.74 L Absolute Monocytes 0.19 Absolute Eosinophils 0.00 Absolute Basophils 0.01 RBC Morphology See below Polychromasia Present Basophilic Stippling Present VBG Lactate Sodium 136 Potassium 4.2 Chloride 103 Carbon Dioxide 27.1 Anion Gap 5.9 BUN 22 H Creatinine 1.34 H Estimated GFR/1.73 m2 40.35 Glucose 309 H Calcium 8.0 L Magnesium 2.0 COVID-19 PCR Nasopharyn COVID-19 PCR Ref Test Perform Site
[2019-11-04] MEDS: Normal Saline 1,000 ML 75 ML IV (18:40)
[2019-11-04] MEDS: Pregabalin 100 MG CAP 200 MG PO (19:32)
[2019-11-04] MEDS: Atorvastatin 40 MG TAB PO (21:57)
[2019-11-04] MEDS: metroNIDAZOLE 500 MG/100 ML BAG 100 MG IVPB (21:58)
[2019-11-05] VITALS (10 sets, daily range): BP systolic 111–142; BP diastolic 60–69; PULSE 65–69; RESP 18; TEMP 36–36.6; O2SAT 96–100
[2019-11-05] MEDS: Hydrocortisone SOD SUC. 100 MG VIAL 50 MG IVP ×3 (00:51→16:57)
[2019-11-05] MEDS: VANCOMYCIN 2,000 MG in Normal Saline 500 ML 250 MG IVPB (02:34)
[2019-11-05] MEDS: Levothyroxine 150 MCG TAB PO (06:07)
[2019-11-05] MEDS: metroNIDAZOLE 500 MG/100 ML BAG 100 MG IVPB (06:07)
[2019-11-05 07:04] LABS: Abs Immature Grans 0.03 10^3/uL (0.0-0.06); Absolute Basophil Count 0.01 10^3/uL (0.0-0.2); Absolute Lymphocyte Count 0.82 10^3/uL (1.2-3.4); Absolute Neutrophil Count 5.02 10^3/uL (1.2-6.7); Basophils % 0.2; HCT 22.2 % (36.0-46.0); Immature Grans % 0.5; Lymphocytes % 13.5; MCH 27.7 pg (27.0-33.0); MCHC 31.1 % (32.0-36.0); MCV 89.2 fL (80-95); MPV 9.9 fL (8.0-11.0); Monocytes % 3.3; Neutrophils % 82.5; Nucleated RBC 0 %; Platelet Count 147 10^3/uL (130-400); RBC 2.49 10^6/uL (3.93-5.22); RDW 15.9 % (11.7-14.6); RDW-SD 51.6 fL; WBC 6.08 10^3/uL (4.4-10.8)
[2019-11-05 07:08] LABS: Anion Gap 4.8 mmol/L (3-11); BUN 16 mg/dL (7-18); CO2 27.2 mmol/L (21.0-32.0); CREATININE 1.05 mg/dL (0.55-1.02); Calcium 7.9 mg/dL (8.5-10.1); Chloride 104 mmol/L (98-107); Estimated GFR 53.46 (mL/min/1.73m2); Glucose 128 mg/dL (74-106); Magnesium 2.1 mg/dL (1.8-2.4); Sodium 136 mmol/L (136-145)
[2019-11-05 07:12] LABS: HGB 6.9 g/dL (11.2-15.7)
[2019-11-05] MEDS: Tiotropium Bromide-Respimat 10 PUFF INH IH (07:27)
[2019-11-05] MEDS: Budesonide/Formoterol 160/4.5 6 GM 60 PUFF INH IH ×2 (07:28→20:00)
--- NOTE | 2019-11-05 08:12 | PGE_ITS ---
Date of Service Date of service: 11/05/19 Time of Service: 11:29 Assessment and Plan Assessment and plan (1) Sepsis: Status: Resolved Assessment and plan: Due to an infected infusaport. Blood cultures positive for GPCs in clusters. Initiated on IV vanco. Consult general surgery for infusaport removal. Obtain echo to r/o endocarditis. Repeat blood cultures. Continue IVF x 24 more hours. I d/c'ed flagyl, but will continue fidoxamycin prophylactically (the patient still has not had a BM and no evience of ielus on CT). Start to taper stress dose steroids. Covid-19 ruled out with a negative nasopharyngeal PCR. (2) Sepsis associated hypotension: Status: Resolved Assessment and plan: BP normalized with Stress dose steroids. (3) Recurrent Clostridium difficile diarrhea: Status: Ruled-out Assessment and plan: Alternative source of infection found and no diarrhea/evidence of ileus on CT. Contnue fidoxamycin for prophylaxis while on systemic abx. (4) Adrenal insufficiency: Status: Chronic Assessment and plan: Acute on chronic. Triggered by infected infusaport. Start to taper stress dose steroids. (5) Acute kidney injury superimposed on chronic kidney disease: Status: Acute Assessment and plan: Better. Continue gentle IVF x 24 more hours. (6) Toxic metabolic encephalopathy: Status: Resolved Assessment and plan: Due to underlying sepsis and adrenal insufficiency. Resolved. Monitor mental status. (7) Diabetes mellitus: Status: Chronic Assessment and plan: Continue home doses of U500 insulin. Qualifiers: Diabetes mellitus type: type 2 Diabetes mellitus [facility] insulin use: with terminal gauger use Diabetes mellitus complication status: with kidney complications Diabetes mellitus complication detail: with chronic kidney disease Chronic kidney disease stage: stage 3 (moderate) Qualified Code(s): E11.22 - Type 2 diabetes mellitus with diabetic chronic kidney disease; N18.3 - Chronic kidney disease, stage 3 (moderate); Z79.4 - intermodal dispatcher (current) use of insulin (8) History of pulmonary embolism: Status: Chronic Assessment and plan: Continue eliquis (9) Discharge planning issues: Status: Acute Assessment and plan: DNR/DNI. The patient met with palliative care. If she ever is brought to the ED obtunded and unable to lift up her head from the pillow, she states she would like to be made comfort measures only. Subjective Subjective Interval history since last seen: Feels better. No diarrhea, dizziness, chest pain, shortness of breath, nausea. Didn't sleep well. C/o LUQ pain with palpation but not when she is left alone. Afebrile. Normotensive. BG in 150s. Blood cx from port - GPCs. Exam Narrative Exam Narrative: General: Pleasant obese female, A&Ox3, Looks better than yesterday HEENT: EOMI, MMM Cardiovascular: RRR, no m/r/g Lungs: CTAB Gastrointestinal: soft, tender in LUQ, not distended, +BS Extremities: chronic BLE nonpitting edema with chronic venous stasis and skin tears Objective Objective Clinical Data: Abnormal lab results 11/04/19 11/05/19 11/05/19 Range/Units 06:00 06:15 06:15 RBC 2.73 L 2.49 L (3.93-5.22) 10^6/uL Hgb 7.6 L 6.9 L* (11.2-15.7) g/dL Hct 24.2 L 22.2 L (36.0-46.0) % MCHC 31.4 L 31.1 L (32.0-36.0) % RDW 16.2 H 15.9 H (11.7-14.6) % Absolute Neutrophils 7.20 H (1.2-6.7) 10^3/uL Absolute Lymphocytes 0.74 L 0.82 L (1.2-3.4) 10^3/uL Creatinine 1.05 H (0.55-1.02) mg/dL Glucose 128 H D (74-106) mg/dL Calcium 7.9 L (8.5-10.1) mg/dL Vital Signs Temperature 36.0 C L 11/04/19 20:00 Temperature Source Temporal Artery Scan 11/04/19 20:00 Pulse 68 11/05/19 06:17 Pulse Rhythm Regular 11/05/19 06:37 Pulse 76 11/04/19 18:00 Respiratory Rate 16 11/04/19 18:00 Respiratory Effort 11/05/19 06:37 Respiratory Depth Normal 11/05/19 06:37 Respiratory Pattern Normal 11/05/19 06:37 Blood Pressure 130/69 11/05/19 06:17 Blood Pressure Mean 83 11/05/19 06:17 Blood Pressure Position Sitting 11/03/19 15:30 Pulse Oximetry 97 11/05/19 06:17 Oxygen Delivery Method Room Air 11/04/19 20:00 Oxygen Flow Rate 0 11/04/19 20:00 Pain Level 4 11/05/19 03:04 Comment 11/03/19 11:06 Intake & Output 11/04/19 11/04/19 11/05/19 11:59 23:59 11:59 Intake Total 2480 / 4200 1720 / 4200 500 / 500 Output Total 1100 / 2000 900 / 2000 700 / 700 Balance 1380 / 2200 820 / 2200 -200 / -200 Intake: IV 2000 / 3100 1100 / 3100 500 / 500 Oral 480 / 1100 620 / 1100 Output: Urine 1100 / 2000 900 / 2000 700 / 700 Other: Urine Color Yellow Yellow Yellow Urine Appearance Clear Clear Clear Urine Odor None Normal None Comment alex alex Voiding Methods Indwelling Catheter Indwelling Catheter Indwelling Catheter Laboratory Results WBC 6.08 10^3/uL (4.4-10.8) 11/05/19 06:15 RBC 2.49 10^6/uL (3.93-5.22) L 11/05/19 06:15 Hgb 6.9 g/dL (11.2-15.7) L* 11/05/19 06:15 Hct 22.2 % (36.0-46.0) L 11/05/19 06:15 MCV 89.2 fL (80-95) 11/05/19 06:15 MCH 27.7 pg (27.0-33.0) 11/05/19 06:15 MCHC 31.1 % (32.0-36.0) L 11/05/19 06:15 RDW 15.9 % (11.7-14.6) H 11/05/19 06:15 Plt Count 147 10^3/uL (130-400) 11/05/19 06:15 MPV 9.9 fL (8.0-11.0) 11/05/19 06:15 Immature Gran % 0.5 11/05/19 06:15 Neutrophils % 82.5 11/05/19 06:15 Lymphocytes % 13.5 11/05/19 06:15 Monocytes % 3.3 11/05/19 06:15 Eosinophils % 0.0 11/05/19 06:15 Basophils % 0.2 11/05/19 06:15 Nucleated RBC % 0 % 11/05/19 06:15 Absolute Neutrophils 5.02 10^3/uL (1.2-6.7) 11/05/19 06:15 Absolute Lymphocytes 0.82 10^3/uL (1.2-3.4) L 11/05/19 06:15 Absolute Monocytes 0.20 10^3/uL (0.1-0.8) 11/05/19 06:15 Absolute Eosinophils 0.00 10^3/uL (0.0-0.7) 11/05/19 06:15 Absolute Basophils 0.01 10^3/uL (0.0-0.2) 11/05/19 06:15 RBC Morphology See below 11/04/19 06:00 Polychromasia Present 11/04/19 06:00 Hypochromasia 1+ 11/03/19 11:50 Basophilic Stippling Present 11/04/19 06:00 Anisocytosis 1+ 11/03/19 11:50 VBG Lactate 1.3 mmol/L (0.6-1.4) 11/03/19 19:49 Sodium 136 mmol/L (136-145) 11/05/19 06:15 Potassium 4.0 mmol/L (3.5-5.1) 11/05/19 06:15 Chloride 104 mmol/L (98-107) 11/05/19 06:15 Carbon Dioxide 27.2 mmol/L (21.0-32.0) 11/05/19 06:15 Anion Gap 4.8 mmol/L (3-11) 11/05/19 06:15 BUN 16 mg/dL (7-18) D 11/05/19 06:15 Creatinine 1.05 mg/dL (0.55-1.02) H 11/05/19 06:15 Estimated GFR/1.73 m2 53.46 (mL/min/1.73m2) 11/05/19 06:15 Glucose 128 mg/dL (74-106) H D 11/05/19 06:15 Calcium 7.9 mg/dL (8.5-10.1) L 11/05/19 06:15 Magnesium 2.1 mg/dL (1.8-2.4) 11/05/19 06:15 Total Bilirubin 0.4 mg/dL (0.2-1.0) 11/03/19 11:50 AST 72 U/L (15-37) H 11/03/19 11:50 ALT 20 U/L (14-59) 11/03/19 11:50 Alkaline Phosphatase 179 U/L (46-116) H 11/03/19 11:50 Troponin I < 0.05 ng/mL (<0.06) 11/03/19 14:15 Total Protein 7.2 g/dL (6.4-8.2) 11/03/19 11:50 Albumin 2.8 g/dL (3.4-5.0) L 11/03/19 11:50 Urine Color Yellow (Yellow) 11/03/19 11:45 Urine Clarity Clear (Clear) 11/03/19 11:45 Urine pH 5.5 (5-8) 11/03/19 11:45 Ur Specific [place] 1.025 (1.005-1.025) 11/03/19 11:45 Urine Protein 30 mg/dL (Negative) H 11/03/19 11:45 Urine Ketones Negative mg/dL (Negative) 11/03/19 11:45 Urine Blood Moderate (Negative) H 11/03/19 11:45 Urine Nitrite Negative (Negative) 11/03/19 11:45 Urine Bilirubin Negative (Negative) 11/03/19 11:45 Urine Urobilinogen 0.2 EU/dL (Up TO 0.2) 11/03/19 11:45 Ur Leukocyte Esterase Negative (Negative) 11/03/19 11:45 Urine RBC 10-20 HPF (0-2) H 11/03/19 11:45 Urine WBC 0-2 HPF (0-5) 11/03/19 11:45 Ur Epithelial Cells Few HPF (Negative) 11/03/19 11:45 Urine Crystals Moderate amorphous HPF (Negative) 11/03/19 11:45 Urine Bacteria Negative HPF (Negative) 11/03/19 11:45 Urine Casts Negative LPF (Negative) 11/03/19 11:45 Urine Mucus Negative (Negative) 11/03/19 11:45 Ur Culture Indicated? No 11/03/19 11:45 Urine Glucose Negative mg/dL (Negative) 11/03/19 11:45 COVID-19 PCR Negative (Negative) 11/03/19 11:50 Nasopharyn COVID-19 PCR Not Applicable 11/03/19 11:50 Ref Test [facility]form [facility] 11/03/19 11:50
--- NOTE | 2019-11-05 08:21 | IN_ITS ---
Date of service: 11/05/19 Time of Service: 08:21 PT Notes Visit Reasons: SEPTIC SHOCK DUE TO C.DIFF, ADRENAL INSUFFUCIENCY Physical Therapy Inpatient Initial Evaluation Dates: 11/05/2019 Referring Doctor: Sheyla Reno MD PT Orders: PT CONSULT: Limited ability Precautions: Fall. Standard. Activity as tolerated. Patient Profile/Admitting Diagnosis: Candace is a 59-year-old female with chronic adrenal insufficiency and matastatic breast carcinoma who presented to the ED on 11/03/2019 with chief presentation of fever, low blood pressure, and suspicion of sepsis. Patient is diagnosed with sepsis due to infected [id number] (resolved as of 11/05/2019), sepsis associated hypotension (resolved as of 11/05/2019), and acute on chronic kidney injury. PMHX: Medical History Acute confusion due to infection (Resolved) Acute UTI (Resolved) Adenoma of pituitary (Chronic) benign; renoved surgically on steroids and synthroid to replete Bacteremia (Resolved) Citrobacter C. difficile diarrhea (Acute) Cancer related pain (Chronic) improved with fentanyl patch Carpal tunnel syndrome (Acute) Chronic adrenal insufficiency (Acute) Chronic pain (Chronic) Chronic respiratory failure with hypoxia (Chronic) Chronic venous stasis dermatitis (Chronic) COPD (chronic obstructive pulmonary disease) (Chronic) On nocturnal oxygen - 2L prn Depression (Chronic) Diabetes mellitus (Chronic) Insulin dependent Discharge planning issues (Resolved) Diverticulosis (Acute) DNI (do not intubate) (Acute) DNR (do not resuscitate) (Acute) Dyslipidemia (Chronic) E. coli bacteremia (Resolved) Fatigue (Acute) Goals of care, counseling/discussion (Acute) History of breast cancer (Chronic) metastatic, with lymphatic spread and bone mets Hyperlipidemia (Acute) Hypopituitarism (Chronic) Hypothyroidism (Chronic) Influenza B (Acute) Iron deficiency anemia (Acute) Left lower lobe pneumonia (Resolved) Metastatic breast cancer (Chronic) Obesity (Chronic) Obstructive sleep apnea (Chronic) per [facility] records Palliative care patient (Chronic) Pneumonia (Acute) POLST (Physician Orders for Life-Sustaining Treatment) (Acute) done 03/26/19; DNR/DNI Positive blood cultures (Ruled-out) Pulmonary emboli (Inactive) Recurrent urinary tract infection (Acute) Restless leg syndrome (Acute) SOB (shortness of breath) (Resolved) Spinal stenosis (Acute) Stage IV breast cancer in female (Chronic) Toxic metabolic encephalopathy (Resolved) Uncontrolled pain (Resolved) Unsteady gait (Chronic) Urinary incontinence (Acute) UTI (urinary tract infection) (Resolved) Surgical History H/O bilateral mastectomy (Acute) H/O colonoscopy with polypectomy (Acute) H/O mastectomy (Chronic) bilateral History of carpal tunnel release of both wrists (Acute) Port-A-Cath in place (Acute) Status post transsphenoidal pituitary resection (Acute) Social History/Home Situation: Candace lives with her daughter Kiki in [place], [place] in a two-story house with a ramp to enter with rails on both sides. Patient has stairs to the second floor of the house but has everything she needs on the first floor. She is disabled. She has 2 daughters locally. She receives choices for care highest needs, and her daughter Kiki is her primary provider for 12 years now. Kiki provides assistance with bathing and does meal preapration and assistance with lower body dressing. She was independent with front-wheeled walker for in-house ambulation and uses the 4-wheeled walker for outdoor ambulation. She has to walk about 80-90 feet to get to her car. She is dependent on her daughter for transportation to and from appointments. Daughter also provides assistance with bathing patient's back due to body habitus. Equipment Owned/DME: Bariatric FWW, bariatric hospital bed, bariatric recliner, bariatric front wheeled walker, new bariatric wheelchair with seat and back cushions Subjective: Candace reports continued pain in her R hip due to previously known cancer metastases to bone. She states that she has been working with HH PT with her mobility. She is agreeable to being transferred from bed to reclining chair for breakfast. Objective: General Observation: Telemetry monitoring in place. Hemosiderin staining observed in bilateral distal legs from CVI. Abdominal panniculus. Mental Status: Alert and oriented x 4 Pain: 7-8/10 in right hip with movement and weight bearing ROM: Right Upper Extremity: Shoulder flexion WFL. Elbow flexion WFL. Hands/wrist and fingers are WFL. Left Upper Extremity: Shoulder flexion WFL. Elbow flexion WFL. Hands/wrist and fingers are WFL. Right Lower Extremity: Patient is able to bend hip to about 20 degrees beyond 90 while seated at edge of bed. Knee flexion WFL. Dorsiflexion/plantarflexion WFL. Left Lower Extremity: Patient is able to bend hip to about 10 degrees beyond 90 while seated at edge of bed. Knee flexion WFL. Dorsiflexion/plantarflexion WFL. Strength: Right Upper Extremity: Shoulder flexion 4/5. Elbow flexion 4/5. Health Technical Writer strong and functional Left Upper Extremity: Shoulder flexion 4/5. Elbow flexion 4/5. Health Technical Writer strong and functional. Right Lower Extremity: Hip flexion 3-/5. Knee flexion 4/-5. Knee extension 4- /5. Ankle dorsiflexion/plantarflexion 3+/5. Left Lower Extremity: Hip flexion 3-/5. Knee flexion 4-/5. Knee extension 4-/5. Ankle dorsiflexion/plantarflexion 4-/5. Bed Mobility/Transfers: Supine to sit standby assist Sit to supine standby assist with HOB at 30 degrees Stand to sit standby assist with HOB elevated to about 22 inches from the floor Bed to chair standby assist with HOB elevated to about 22 inches from the floor Chair to bed standby assist from a high chair Gait: 10 steps using a bariatric front wheeled walker with standby assist and IV pole management of PT. reported increased pain in her right hip after activity. Balance: Static Sitting: Good Dynamic Sitting: Good Static Standing: Fair Dynamic Standing: Fair Special Tests: Mobility Limitations Standardized Measure [facility]-P[facility] 6 clicks Basic Mobility Inpatient Short Form: Raw Score: 18 CMS Score: 47% functional mobility deficit Informed Consent/Education: Patient instructed in purpose of PT consult and plan of care. Assessment: Candace demonstrates need for an assistive ambulatory device for all mobility ADL performance, minimal breathlessness, right hip pain limiting ambulation tolerance, and balance impairment resulting from admitting diagnoses and co-morbidities. Candace is a 59-year-old female with chronic adrenal insufficiency and matastatic breast carcinoma who presented to the ED on 10/20/2019 with chief presentation of fever. Patient is diagnose with fever from suspected UTI with referral for skilled physical therapy services in order to address resulting impairments in mobility performance. Patient presents with clinical signs and symptoms consistent with current/admitting diagnoses that have resulted to mobility limitations, gait instability, generalized weakness, and impairment of motor control as demonstrated by the following impairment level findings: 1. Decreased strength to both hip major muscle groups 2. Impaired sitting/standing balance 3. Impaired activity tolerance 4. Limitation of joint range of motion in B hips Impairments are contributing to the following functional limitations: 1. Dependent bed mobility skills 2. Increased dependence with transfers 3. Inability to safely ambulate without assistive device and physical assistance 4. Increase completion time for mobility ADL performance 5. Increased fall risk 6. Inability to negotiate steps alone safely Patient is assessed as a 10694 moderate complexity based on the following: History: 59-year-old female with impairment level findings, functional limitations, and past medical history as indicated above Examination: Demonstrable impairment in strength, balance, and mobility level with underlying impairments and functional limitations as documented above Presentation:Evolving Decision Makin moderate complexity Goals: Goals X 1 week 1. Supine-Sit independent 2. Sit-Supine independent 3. Sit-Stand supervision 4. Stand-Sit supervision 5. Bed-Chair supervision 6. Chair-Bed supervision 7. Supervision indoor ambulation using FWW for at least 150 feet without dyspnea and 2/10 pain in R hip 8. Independent with home exercise program 9. Static/dynamic standing balance/tolerance good Plan of Care/Treatment Plan: 1/day, 7 days/week x 1 week. Plan of care has been reviewed with the SUB ASSEMBLY TEAM WORKER providing the service under Physical Therapy direction. Initiate Physical Therapy intervention for strengthening, bed mobility, transfers, gait, balance training, use of assistive device. DISCHARGE RECOMMENDATIONS: Patient will benefit from continued home health PT services in order to progress mobility level using four-wheeled walker, assess home safety, identify additional equipment needs, and cotninue with a functional maintenance program that will increase ability of patient to remain at home with daughter. No equipment needs at this time. TREATMENT CODE/TIME: 10650 x 25 minutes beginning at 8:21 AM. Thank you very much for this referral. Allie Miguel PT, DPT, CLT [facility] Inpatient PT at [place], [place]
[2019-11-05] MEDS: Fidaxomicin 200 MG TAB PO ×2 (08:36→20:00)
[2019-11-05] MEDS: Folic Acid 1 MG TAB PO (08:36)
[2019-11-05] MEDS: Apixaban 5 MG TAB PO (08:36)
[2019-11-05] MEDS: Montelukast 10 MG TAB PO (08:36)
[2019-11-05] MEDS: Tolterodine 2 MG CAPCR 4 MG PO (08:36)
[2019-11-05] MEDS: Pregabalin 100 MG CAP 200 MG PO ×3 (08:36→20:00)
[2019-11-05] MEDS: Omeprazole 20 MG CAPCR 40 MG PO (08:36)
[2019-11-05] MEDS: Cyanocobalamin 500 MCG TAB 1000 MCG PO (08:36)
[2019-11-05] MEDS: Ferrous Sulfate 325 MG TAB PO (08:36)
[2019-11-05] MEDS: Normal Saline Flush 10 ML SYR IVP ×2 (09:02→16:58)
[2019-11-05] MEDS: fentaNYL 25 MCG PATCH TD (09:46)
[2019-11-05] MEDS: Docusate Sodium 100 MG CAP PO (09:48)
--- NOTE | 2019-11-05 09:58 | PDOC.CMPRO ---
- If Service Date Differs Date of service: 11/05/19 Time of Service: 09:58 Care Management Progress Note S/O:Candace was siting up in a chair when CM met with her. She was teary and shared that she is having a difficult day. She has been told that her implanted port needs to be removed and she is concerned about venous access. She stated that staff has a lot of difficulty when she needs blood drawn or have an IV medication. Candace also talked about the pain she is having and the fact that it is so difficult to control. Dr. Reno increased the dose of her Fentanyl patch today; hopefully that will bring some relief. A: Candace is a 59 year old woman admitted on11/03/19 with septic shock P:Candace will be discharged home with a resumption of home health services. She will follow up with her PCP and community providers and discharge plan of care. Candace will transport with her daughter. CM will continue to support patient and family and assess for discharge planning needs.
[2019-11-05] MEDS: Insulin Aspart 300 UNITS/3 ML PEN SC ×2 (11:24→16:58)
--- NOTE | 2019-11-05 14:23 | W.INDIABCONS ---
Date of service: 11/05/19 Time of Service: 14:23 Diabetes Inpatient Consult DESCRIPTION/ASSESSMENT: Received Diabetes Consult for Candace, however, due to her frequent hospitalizations, declines another education at this time. Candace is 59 yo female with stage 4 breast cancer with long history of reoccurent UTI, C diff. She is a palliative care patient and cared for at home by her daugher. She takes regular insulin 60 u at 7:30, 40 u at 1630, and 40 u at 1130. Blood sugars have not been well controlled during this hospitalization as result of active infection. She follows Diabetic Diet with excellent intake (>75% of meals) and tolerates regular texture despite lack of teeth. INTERVENTION: declined diabetic education Diabetic Diet encouraged Candace to eat yogurt, but does not like, takes probiotics PLAN: Continue Diabetic Diet and adjust as ordered with SS. Will follow po intake, labs and weights. Time Spent in Nutritional Counseling and Treatment: 15 min spent face to face
--- NOTE | 2019-11-05 15:30 | DI.US_ITS ---
APPROVED REPORT EXAM: Comprehensive 2D, Doppler, and color-flow Echocardiogram Patient Location: In-Patient Room/Bed: XNW171 Placement Secretary: Samra Yanez RDCS (AE) Indications: Bacteremia Other Information Technically limited study due to body habitus. Conclusion Left Ventricle : The left ventricle is normal size. The left ventricular systolic function is normal. The left ventricular ejection fraction is within the normal range. There is normal left ventricular wall thickness. There is normal LV segmental wall motion. Estimated ejection fraction 50%. Right Ventricle : Right ventricle is not well visualized. Right ventricular systolic function could n ot be assessed. Atria : The left atrium size is normal. Right atrium is not well visualized. Valves: There are no hemodynamically significant valvular lesions. There are no valvular vegetations seen. Great Vessels : The aortic root is normal in size. The ascending aorta is mildly dilated. The IVC col lapses <50% with inspiration. Please see remainder of study for further details. Wall motion Left Ventricle The left ventricle is normal size. The left ventricular systolic function is normal. The left ventric ular ejection fraction is within the normal range. There is normal left ventricular wall thickness. T here is normal LV segmental wall motion. Estimated ejection fraction 50%. Right Ventricle Right ventricle is not well visualized. Right ventricular systolic function could not be assessed. Atria The left atrium size is normal. Right atrium is not well visualized. Aortic Valve The Aortic valve is sclerotic. Aortic valve is probably trileaflet. There is no aortic valvular steno sis. No aortic regurgitation is present. Mitral Valve Mild mitral annular calcification. No evidence of mitral valve stenosis. Trace to mild mitral regurgi tation. Tricuspid Valve The tricuspid valve is normal in structure. There is no tricuspid valve stenosis. Trace tricuspid reg urgitation. Pulmonic Valve The pulmonary valve is normal in structure. There is no pulmonic valvular stenosis. Trace pulmonic re gurgitation. Great Vessels The aortic root is normal in size. The ascending aorta is mildly dilated. The IVC collapses <50% with inspiration. 2D Dimensions IVSD d PLAX 1.12 cm F: 0.6-1.0 LVPW d PLAX 1.10 cm F: 0.6 - 1.0 LVID d PLAX 4.65 cm F: 3.8 - 5.2 LVDs 3.45 cm F: 2.2 - 3.5 Ao Root d 3.07 cm F: 2.7 - 3.3 Ao Asc Diam d 3.35 cm F: 2.3 - 3.1 LV EF Jignesh 50.7 % FS 25.75 % M-Mode TAPSE 2.70 cm (M/F) >1.7 LV Diastology MV E' medial 0.108 (>0.07 m/s) E/A Ratio 1.4 LV E/e MED 11.20 (<14) MV E Vmax 1.22 (0.4-1.3 m/s) MV E' lateral 0.075 (>0.1 m/s) MV A Vmax 0.85 (0.4-1.3 m/s) LV E/e LAT 16.25 (<14) MV E/A Ratio 1.41 MV E/E' medial 11.25 MV E/E' lateral 16.26 Aortic Valve LVOT Area 3.44 cm2 AoV Area Vmax 2.49 cm2 LVOT Vmax 0.97 m/s AoV Area/ BSA (Vmax) 0.98 cm2/m2 LVOT Mean Ramos. 0.66 m/s GABRIELA Mean Ramos. 2.33 cm2 LVOT Peak Grad 3.8 mmHg GABRIELA Mean Ramos. Index 0.92 cm2/m2 LVOT Mean Grad 2.0 mmHg LVOT VTI 0.262 m LVOT Diam s 2.05 cm AoV Vmax 1.35 m/s Velocity Ratio 0.71 AoV Mean Ramos. 0.97 m/s AoV Peak Grad 7.3 mmHg LVOT SV 90.08 mL AoV Mean Grad 4.2 mmHg AoV VTI 0.310 m AoV Area VTI 2.91 cm2 AoV Area/ BSA (VTI) 1.15 cm/m2 Mitral Valve MV DT 185 (160-240 msec) MV PHT 54 msec MV Area PHT 4.10 cm2 Pulmonary Valve PV Vmax 1.18 (0.5-1.5 m/s) RVOT Peak Gr. 2.64 mmHg PV Peak Grad 5.6 mmHg RVOT Mean Gr. 1.30 mmHg PV Mean Grad 2.7 mmHg RVOT VTI 0.197 m PV VTI 0.272 m RVOT Vmax 0.81 m/s Tricuspid Valve TR Peak Grad 23.4 mmHg TR Vmax 2.42 m/s RA Pressure 8.00 mmHg RVSP (TR) 31.4 mmHg
[2019-11-05] MEDS: Atorvastatin 40 MG TAB PO (22:00)
--- NOTE | 2019-11-05 22:36 | NUR.NOTE ---
pt transferred to med surg via bed. Report given to Baldemar GRACIA.
--- NOTE | 2019-11-05 22:37 | NUR.NOTE ---
pt transferred to med surg. Report given to Amy GRACIA.
[2019-11-06] VITALS (7 sets, daily range): BP systolic 112–143; BP diastolic 64–72; PULSE 63–70; RESP 17–18; TEMP 35.8–36.7; O2SAT 94–100
[2019-11-06] MEDS: Normal Saline Flush 10 ML SYR IVP ×4 (01:15→23:46)
[2019-11-06] MEDS: Hydrocortisone SOD SUC. 100 MG VIAL 50 MG IVP ×4 (01:16→23:45)
[2019-11-06] MEDS: Levothyroxine 150 MCG TAB PO (06:12)
[2019-11-06 07:48] LABS: Abs Immature Grans 0.02 10^3/uL (0.0-0.06); Absolute Basophil Count 0.01 10^3/uL (0.0-0.2); Absolute Eosinophil Count 0.01 10^3/uL (0.0-0.7); Absolute Lymphocyte Count 0.86 10^3/uL (1.2-3.4); Absolute Monocyte Count 0.27 10^3/uL (0.1-0.8); Basophils % 0.2; Eosinophils % 0.2; HGB 7.5 g/dL (11.2-15.7); Immature Grans % 0.4; Lymphocytes % 15.7; MCH 27.1 pg (27.0-33.0); MCV 90.3 fL (80-95); MPV 9.4 fL (8.0-11.0); Monocytes % 4.9; Neutrophils % 78.6; Nucleated RBC 0 %; Platelet Count 146 10^3/uL (130-400); RBC 2.77 10^6/uL (3.93-5.22); RDW 15.8 % (11.7-14.6); RDW-SD 52.3 fL; WBC 5.47 10^3/uL (4.4-10.8)
[2019-11-06 07:59] LABS: BUN 14 mg/dL (7-18); Calcium 8.1 mg/dL (8.5-10.1); Chloride 105 mmol/L (98-107); Glucose 72 mg/dL (74-106); Magnesium 2.2 mg/dL (1.8-2.4); Potassium 4.1 mmol/L (3.5-5.1); Sodium 139 mmol/L (136-145)
[2019-11-06] MEDS: Tiotropium Bromide-Respimat 10 PUFF INH IH (08:10)
[2019-11-06] MEDS: Budesonide/Formoterol 160/4.5 6 GM 60 PUFF INH IH ×2 (08:11→20:06)
[2019-11-06] MEDS: Fidaxomicin 200 MG TAB PO ×2 (08:51→20:06)
[2019-11-06] MEDS: Pregabalin 100 MG CAP 200 MG PO ×3 (08:51→20:06)
[2019-11-06] MEDS: Montelukast 10 MG TAB PO (08:51)
[2019-11-06] MEDS: Omeprazole 20 MG CAPCR 40 MG PO (08:52)
[2019-11-06] MEDS: Cyanocobalamin 500 MCG TAB 1000 MCG PO (08:52)
[2019-11-06] MEDS: Tolterodine 2 MG CAPCR 4 MG PO (08:52)
[2019-11-06] MEDS: Ferrous Sulfate 325 MG TAB PO (08:52)
[2019-11-06] MEDS: Folic Acid 1 MG TAB PO (08:53)
--- NOTE | 2019-11-06 09:01 | PDOC.CMPRO ---
- If Service Date Differs Date of service: 11/06/19 Time of Service: 09:01 Care Management Progress Note S/O: No changes in the discharge plan today. CM reviewed chart, discharge plan and goals of care reviewed at morning rounds. CM to continue to follow for discharge planning and disposition needs. A: Candace is a 59 year old woman admitted on11/03/19 with septic shock, positive blood cultures, remains on IV abx, with a history of stage 4 breast cancer, and declining health. P:Candace will be discharged home with a resumption of home health services. She will follow up with her PCP and community providers and discharge plan of care. Candace will transport with her daughter. CM will continue to support patient and family and assess for discharge planning needs.
[2019-11-06] MEDS: Normal Saline 50 ML 200 ML (09:23)
--- NOTE | 2019-11-06 10:40 | PTTR_ITS ---
Date of service: 11/06/19 Time of Service: 10:40 PT Notes Visit Reasons: SEPTIC SHOCK DUE TO C.DIFF, ADRENAL INSUFFUCIENCY 11/06/2019 SUBJECTIVE: Candace complaining of pain in the right hip despite being premedicated. She also notes some discomfort into the left ribs. She does not want to get out of bed but willing to perform bed exercises. OBJECTIVE: [id number] GAIT/TRANSFERS: Not assessed today. THEREX: Perform LE strengthening in supine position focusing on left quad and hip strengthening. She is able to perform muscle setting on the right only. See flow sheet. ASSESSMENT/PLAN: Progress gait with walker as she is able to tolerate. Continue to work with pt after she is premedicated for pain. Treatment time: 15 minutes Adrianne Mera PTA Clinic location: [facility] [place], [place]
--- NOTE | 2019-11-06 12:32 | PGE_ITS ---
Date of Service Date of service: 11/06/19 Time of Service: 12:33 Assessment and Plan Assessment and plan (1) Discharge planning issues: Status: Acute (2) Sepsis: Status: Resolved Assessment and plan: resolved. On Fidoxamycin. On chronic steroids for adrenal insufficienty; weaning from stress doses to her home dose upon d/c. Qualifiers: Sepsis type: sepsis due to unspecified organism (3) Acute kidney injury superimposed on chronic kidney disease: Status: Acute (4) Right hip pain: Status: Acute Assessment and plan: Chronic. Cont Fentanyl patch and oral hydrocodone prn (5) Adrenal insufficiency: Status: Chronic Assessment and plan: IV hydrocortisone stress dosing; wean to home dose upon d/c. (6) Diabetes mellitus: Status: Chronic Assessment and plan: Cont insulin dosing. Improved control. May have to decrease insulin dosing while in hospital on controlled diet. 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 Cont Symbicort and Spiriva Subjective Subjective Patient reports: no new complaints Interval history since last seen: She describes that her hip hurts but this is n ot a new occurrence. No F/C, dizziness, confusion. Exam Const General: cooperative and no acute distress Nutritional Appearance: obese Orientation: alert and oriented x3 Neck Neck: full ROM Resp Effort & Inspection: normal respiratory effort Auscultation: clear to auscultation bilaterally and diminished lung sounds Cardio Jugular venous pressure: no JVD Rate: regular rate Rhythm: regular rhythm Heart Sounds: S1 normal and S2 normal Extrem General: no calf tenderness and edema Laterality: bilateral (nonpitting) Psych Appearance: grossly normal Mental Status: mental status grossly normal Mood: congruent mood Affect: normal affect Objective Objective Clinical Data: Abnormal lab results 11/06/19 11/06/19 Range/Units 06:50 06:50 RBC 2.77 L (3.93-5.22) 10^6/uL Hgb 7.5 L (11.2-15.7) g/dL Hct 25.0 L (36.0-46.0) % MCHC 30.0 L (32.0-36.0) % RDW 15.8 H (11.7-14.6) % Absolute Lymphocytes 0.86 L (1.2-3.4) 10^3/uL Glucose 72 L D (74-106) mg/dL Calcium 8.1 L (8.5-10.1) mg/dL Vital Signs Temperature 35.8 C L 11/06/19 07:23 Temperature Source Temporal Artery Scan 11/06/19 07:23 Pulse 63 11/06/19 07:23 Pulse Rhythm Regular 11/05/19 23:00 Pulse 76 11/04/19 18:00 Respiratory Rate 18 11/06/19 07:23 Respiratory Effort Non-Labored 11/05/19 23:00 Respiratory Depth Normal 11/05/19 23:00 Respiratory Pattern Normal 11/05/19 23:00 Blood Pressure 126/71 11/06/19 07:23 Blood Pressure Mean 85 11/05/19 16:07 Blood Pressure Position Sitting 11/03/19 15:30 Pulse Oximetry 100 11/06/19 08:07 Oxygen Delivery Method Nasal Cannula 11/06/19 08:07 Oxygen Flow Rate 2 11/06/19 08:07 Pain Level 8 11/06/19 09:42 Comment 11/03/19 11:06 Intake & Output 11/05/19 11/06/19 11/06/19 23:59 11:59 23:59 Intake Total 1590 / 2590 490 / 490 Output Total 600 / 1300 1050 / 1050 Balance 990 / 1290 -560 / -560 Weight 150.2 kg Intake: IV 1250 / 1750 Oral 340 / 840 490 / 490 Output: Urine 600 / 1300 1050 / 1050 Other: Urine Color Yellow Yellow Urine Appearance Clear Cloudy Laboratory Results WBC 5.47 10^3/uL (4.4-10.8) 11/06/19 06:50 RBC 2.77 10^6/uL (3.93-5.22) L 11/06/19 06:50 Hgb 7.5 g/dL (11.2-15.7) L 11/06/19 06:50 Hct 25.0 % (36.0-46.0) L 11/06/19 06:50 MCV 90.3 fL (80-95) 11/06/19 06:50 MCH 27.1 pg (27.0-33.0) 11/06/19 06:50 MCHC 30.0 % (32.0-36.0) L 11/06/19 06:50 RDW 15.8 % (11.7-14.6) H 11/06/19 06:50 Plt Count 146 10^3/uL (130-400) 11/06/19 06:50 MPV 9.4 fL (8.0-11.0) 11/06/19 06:50 Immature Gran % 0.4 11/06/19 06:50 Neutrophils % 78.6 11/06/19 06:50 Lymphocytes % 15.7 11/06/19 06:50 Monocytes % 4.9 11/06/19 06:50 Eosinophils % 0.2 11/06/19 06:50 Basophils % 0.2 11/06/19 06:50 Nucleated RBC % 0 % 11/06/19 06:50 Absolute Neutrophils 4.30 10^3/uL (1.2-6.7) 11/06/19 06:50 Absolute Lymphocytes 0.86 10^3/uL (1.2-3.4) L 11/06/19 06:50 Absolute Monocytes 0.27 10^3/uL (0.1-0.8) 11/06/19 06:50 Absolute Eosinophils 0.01 10^3/uL (0.0-0.7) 11/06/19 06:50 Absolute Basophils 0.01 10^3/uL (0.0-0.2) 11/06/19 06:50 RBC Morphology See below 11/04/19 06:00 Polychromasia Present 11/04/19 06:00 Hypochromasia 1+ 11/03/19 11:50 Basophilic Stippling Present 11/04/19 06:00 Anisocytosis 1+ 11/03/19 11:50 VBG Lactate 1.3 mmol/L (0.6-1.4) 11/03/19 19:49 Sodium 139 mmol/L (136-145) 11/06/19 06:50 Potassium 4.1 mmol/L (3.5-5.1) 11/06/19 06:50 Chloride 105 mmol/L (98-107) 11/06/19 06:50 Carbon Dioxide 28.0 mmol/L (21.0-32.0) 11/06/19 06:50 Anion Gap 6.0 mmol/L (3-11) 11/06/19 06:50 BUN 14 mg/dL (7-18) 11/06/19 06:50 Creatinine 0.90 mg/dL (0.55-1.02) 11/06/19 06:50 Estimated GFR/1.73 m2 >= 60.00 (mL/min/1.73m2) 11/06/19 06:50 Glucose 72 mg/dL (74-106) L D 11/06/19 06:50 Calcium 8.1 mg/dL (8.5-10.1) L 11/06/19 06:50 Magnesium 2.2 mg/dL (1.8-2.4) 11/06/19 06:50 Total Bilirubin 0.4 mg/dL (0.2-1.0) 11/03/19 11:50 AST 72 U/L (15-37) H 11/03/19 11:50 ALT 20 U/L (14-59) 11/03/19 11:50 Alkaline Phosphatase 179 U/L (46-116) H 11/03/19 11:50 Troponin I < 0.05 ng/mL (<0.06) 11/03/19 14:15 Total Protein 7.2 g/dL (6.4-8.2) 11/03/19 11:50 Albumin 2.8 g/dL (3.4-5.0) L 11/03/19 11:50 Urine Color Yellow (Yellow) 11/03/19 11:45 Urine Clarity Clear (Clear) 11/03/19 11:45 Urine pH 5.5 (5-8) 11/03/19 11:45 Ur Specific [place] 1.025 (1.005-1.025) 11/03/19 11:45 Urine Protein 30 mg/dL (Negative) H 11/03/19 11:45 Urine Ketones Negative mg/dL (Negative) 11/03/19 11:45 Urine Blood Moderate (Negative) H 11/03/19 11:45 Urine Nitrite Negative (Negative) 11/03/19 11:45 Urine Bilirubin Negative (Negative) 11/03/19 11:45 Urine Urobilinogen 0.2 EU/dL (Up TO 0.2) 11/03/19 11:45 Ur Leukocyte Esterase Negative (Negative) 11/03/19 11:45 Urine RBC 10-20 HPF (0-2) H 11/03/19 11:45 Urine WBC 0-2 HPF (0-5) 11/03/19 11:45 Ur Epithelial Cells Few HPF (Negative) 11/03/19 11:45 Urine Crystals Moderate amorphous HPF (Negative) 11/03/19 11:45 Urine Bacteria Negative HPF (Negative) 11/03/19 11:45 Urine Casts Negative LPF (Negative) 11/03/19 11:45 Urine Mucus Negative (Negative) 11/03/19 11:45 Ur Culture Indicated? No 11/03/19 11:45 Urine Glucose Negative mg/dL (Negative) 11/03/19 11:45 COVID-19 PCR Negative (Negative) 11/03/19 11:50 Nasopharyn COVID-19 PCR Not Applicable 11/03/19 11:50 Ref Test Perform Site [facility] lab 11/03/19 11:50
--- NOTE | 2019-11-06 12:48 | W.SURGCON ---
Date of service: 11/05/19 Time of Service: 18:30 Assessment and Plan Assessment and plan (1) Port or reservoir infection: Status: Acute Assessment and plan: A\\ 59 year old female with an infected Mediport. Patient is on Eliquis. Eliquis was stopped yesterday evening P\\ Will remove Mediport on Friday Morning at the Bedside Thank you for allowing me to participate in this patients care Qualifiers: Encounter type: initial encounter Qualified Code(s): T80.212A - Local infection due to central venous catheter, initial encounter History of Present Illness History of Present Illness Chief Complaint: POrt infection Narrative: Mrs. Maynard is a pleasant 59 year old female with a PMHx significant for Stage IV Breast cancer and recurrent C. Diff infections who was admited by the Hospitalist group on 11/03/2019 for Sepsis. It was felt at first that it was due to recurrent C.Diff. Blood cultures had also been drawn on her day of admission. The blood drawn from her Mediport grew out GPCs in clusters. The blood drawn from the peripheral vein did not grow anything. I was asked to see patient to remove her Mediport. The patient is still getting treatments for her Breast cancer Consults Consult date: 11/05/19 Requesting physician: Sheyla Reno Review of Systems Constitutional Constitutional: Denies fever(s), Denies headache(s) and Reports weakness Eyes Eyes: Denies blurry vision and Denies change in vision ENT Ears, Nose, Mouth, and Throat: Denies dysphagia, Denies headache(s) and Denies hoarseness Cardiovascular Cardiovascular: Denies chest pain, Denies chest pain at rest, Denies palpitations and Denies dyspnea Respiratory Respiratory: Denies cough and Denies dyspnea Gastrointestinal Gastrointestinal: Denies abdominal pain, Denies change in stool character, Denies dysphagia, Denies dyspepsia, Denies heartburn, Denies nausea and Denies vomiting Genitourinary Genitourinary: Reports system reviewed and no additional complaints, except as documented Neurologic Neurologic: Denies headache(s) and Reports weakness Endocrine Endocrine: Denies palpitations [facility] Medical History Acute confusion due to infection (Resolved) Acute UTI (Inactive) Adenoma of pituitary (Chronic) benign; renoved surgically on steroids and synthroid to replete Bacteremia (Resolved) Citrobacter C. difficile diarrhea (Acute) Cancer related pain (Chronic) improved with fentanyl patch Carpal tunnel syndrome (Acute) Chronic adrenal insufficiency (Acute) Chronic pain (Chronic) Chronic respiratory failure with hypoxia (Chronic) Chronic venous stasis dermatitis (Chronic) COPD (chronic obstructive pulmonary disease) (Chronic) On nocturnal oxygen - 2L prn Depression (Chronic) Diabetes mellitus (Chronic) Insulin dependent Discharge planning issues (Resolved) Diverticulosis (Acute) DNI (do not intubate) (Acute) DNR (do not resuscitate) (Acute) Dyslipidemia (Chronic) E. coli bacteremia (Resolved) Fatigue (Chronic) Goals of care, counseling/discussion (Acute) History of breast cancer (Chronic) metastatic, with lymphatic spread and bone mets Hyperlipidemia (Acute) Hypopituitarism (Chronic) Hypothyroidism (Chronic) Influenza B (Acute) Iron deficiency anemia (Chronic) Left lower lobe pneumonia (Resolved) Metastatic breast cancer (Chronic) Obesity (Chronic) Obstructive sleep apnea (Chronic) per [facility] records Palliative care patient (Chronic) Pneumonia (Acute) POLST (Physician Orders for Life-Sustaining Treatment) (Acute) done 03/26/19; DNR/DNI Positive blood cultures (Ruled-out) Pulmonary emboli (Inactive) Recurrent urinary tract infection (Resolved) Restless leg syndrome (Acute) SOB (shortness of breath) (Resolved) Spinal stenosis (Acute) Stage IV breast cancer in female (Chronic) Toxic metabolic encephalopathy (Resolved) Uncontrolled pain (Resolved) Unsteady gait (Chronic) Urinary incontinence (Acute) UTI (urinary tract infection) (Resolved) Surgical History H/O bilateral mastectomy (Acute) H/O colonoscopy with polypectomy (Acute) H/O mastectomy (Chronic) bilateral History of carpal tunnel release of both wrists (Acute) Port-A-Cath in place (Acute) Status post transsphenoidal pituitary resection (Acute) Family History Father , age 83 from complications of diabetes Prostate cancer Diabetes Mother , age 79 from complications of Crohn's disease and colitis Crohn's disease Colitis Daughter No problems noted. Daughter No problems noted. Brother Arthritis severe Obesity Sister Diabetes Obesity Sister No problems noted. Sister No problems noted. Social History Smoking/Tobacco Use Status: Former Tobacco Use Alcohol Intake: never Drug use: Never Substance use type: does not use Caregiver/Support person: Yes Household members: children Number of Children: 2 Communication Needs: Hard of Hearing and Corrective Lenses Education Level: middle school Do you need help understanding health information?: Always current occupation: on disability Pets and animals: Yes (4 cats, 3 dogs, 1 bird, 6 hermit crabs) Pets and animals: cat(s), dog(s), bird(s) and other Details: hermit crabs Current gender identity: female What is your relationship status?: How often do you talk on the phone with friends or family?: once per week How often do you get together with friends or relatives?: three or more times per week Panel score (0-1 are the most socially isolated patients): 1 What type of physical activity do you participate in: none, sedentary lifestyle, wheelchair-bound and additional Details: needs a new wheelchair, cannot walk far, just a few steps Special pedro pablo needs: No Seatbelt use: always Working smoke detector in home: Yes Fire extinguisher in home: Yes Firearms in home: No Do you feel safe at home: Yes Do you feel safe in your relationship?: Yes Additional Social history: , with 2 children. 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 She is not currently working and is on disability. Has a history of tobacco, quit in 1992. Reports rare use of alcohol only. Lives with daughter Bhargavi in [place], and her other daughter is close. Uses a walker to ambulate. Hard to do recently, depending more on WC. In a lot of pain. Recent scans show progression of breast cancer. Exam Const General: cooperative, comfortable and no acute distress Orientation: alert and oriented x3 HENMT Head: normocephalic and atraumatic Chest Other: mediport is under the right clavicle. No erythema to the overlying skin. Chest/axillae images: 1. mediport Resp Effort & Inspection: normal respiratory effort Auscultation: clear to auscultation bilaterally Cardio Rate: regular rate Rhythm: regular rhythm Heart Sounds: no gallops, no murmurs and no rubs Results Last Vital Signs Temp 96.4 F L 11/06/19 07:23 Pulse 63 11/06/19 07:23 Resp 18 11/06/19 07:23 BP 126/71 11/06/19 07:23 Pulse Ox 100 11/06/19 08:07 Labs Result diagrams: 11/06/19 06:50 11/06/19 06:50 Labs: Laboratory Results - last 24 hr 11/06/19 11/06/19 06:50 06:50 WBC 5.47 RBC 2.77 L Hgb 7.5 L Hct 25.0 L MCV 90.3 MCH 27.1 MCHC 30.0 L RDW 15.8 H Plt Count 146 MPV 9.4 Immature Gran % 0.4 Neutrophils % 78.6 Lymphocytes % 15.7 Monocytes % 4.9 Eosinophils % 0.2 Basophils % 0.2 Nucleated RBC % 0 Absolute Neutrophils 4.30 Absolute Lymphocytes 0.86 L Absolute Monocytes 0.27 Absolute Eosinophils 0.01 Absolute Basophils 0.01 Sodium 139 Potassium 4.1 Chloride 105 Carbon Dioxide 28.0 Anion Gap 6.0 BUN 14 Creatinine 0.90 Estimated GFR/1.73 m2 >= 60.00 Glucose 72 L D Calcium 8.1 L Magnesium 2.2
[2019-11-06] MEDS: cefTRIAXone 2 GM/50 ML BAG IVPB (14:35)
[2019-11-06] MEDS: fentaNYL 25 MCG PATCH TD (20:07)
[2019-11-06] MEDS: fentaNYL 100 MCG PATCH TD (20:08)
[2019-11-06] MEDS: Atorvastatin 40 MG TAB PO (21:11)
[2019-11-07] VITALS (8 sets, daily range): BP systolic 117–146; BP diastolic 64–79; PULSE 58–69; RESP 18–20; TEMP 35.3–36.7; O2SAT 94–99
[2019-11-07] MEDS: Levothyroxine 150 MCG TAB PO (05:28)
[2019-11-07] MEDS: Pregabalin 100 MG CAP 200 MG PO ×3 (08:14→19:10)
[2019-11-07] MEDS: Montelukast 10 MG TAB PO (08:14)
[2019-11-07] MEDS: Omeprazole 20 MG CAPCR 40 MG PO (08:14)
[2019-11-07] MEDS: Fidaxomicin 200 MG TAB PO ×2 (08:15→19:10)
[2019-11-07] MEDS: Ferrous Sulfate 325 MG TAB PO (08:15)
[2019-11-07] MEDS: Tolterodine 2 MG CAPCR 4 MG PO (08:15)
[2019-11-07] MEDS: Folic Acid 1 MG TAB PO (08:16)
[2019-11-07] MEDS: Cyanocobalamin 500 MCG TAB 1000 MCG PO (08:16)
[2019-11-07] MEDS: Insulin Aspart 300 UNITS/3 ML PEN SC ×2 (08:17→11:36)
[2019-11-07] MEDS: Hydrocortisone SOD SUC. 100 MG VIAL 50 MG IVP (08:52)
[2019-11-07] MEDS: Normal Saline 50 ML 200 ML IVPB (08:53)
--- NOTE | 2019-11-07 09:17 | CMPROGNOTE_ITS ---
- If Service Date Differs Date of service: 11/07/19 Time of Service: 09:17 Care Management Progress Note S/O: No changes in the discharge plan today. CM reviewed chart, discharge plan and goals of care reviewed at morning rounds. Mediport will be removed at the bedside on Friday, consulting. CM to continue to follow for discharge planning and disposition needs. A: Candace is a 59 year old woman admitted on11/03/19 with septic shock, positive blood cultures x 1 from [facility], remains on IV abx, with a history of stage 4 breast cancer, and declining health. P:Candace will be discharged home with a resumption of home health services. She will follow up with her PCP and community providers and discharge plan of care. Candace will transport with her daughter. CM will continue to support patient and family and assess for discharge planning needs.
[2019-11-07] MEDS: Tiotropium Bromide-Respimat 10 PUFF INH IH (09:26)
[2019-11-07] MEDS: Budesonide/Formoterol 160/4.5 6 GM 60 PUFF INH IH ×2 (09:27→19:15)
--- NOTE | 2019-11-07 10:33 | PT.INTREAT ---
Date of service: 11/07/19 Time of Service: 10:33 PT Notes Visit Reasons: SEPTIC SHOCK DUE TO C.DIFF, ADRENAL INSUFFUCIENCY 11/07/2019 SUBJECTIVE: Candace stating she continues to struggle with hip pain on the right but she would like to get up. OBJECTIVE: [id number] TRANSFERS Supine to sit: Min A Sit to stand: SBA Stand to sit: SBA GAIT Device: FWW Weight bearing: Full Assist: SBA Distance: 15'+5' Deviation: Wide AGUSTINA THEREX: to be performed independently. ASSESSMENT/PLAN: Pt moves relatively well for short distances. Minimal assist with transfers out of bed. Continues to completion of hip pain on the right with weight bearing. Continue to mobilize as she is able to tolerate. Treatment time: 15' Adrianne Mera PTA Clinic location: [facility] [place], [place]
[2019-11-07] MEDS: Normal Saline Flush 10 ML SYR IVP ×3 (12:45→23:58)
[2019-11-07] MEDS: cefTRIAXone 2 GM/50 ML BAG IVPB (14:02)
--- NOTE | 2019-11-07 14:51 | PGE_ITS ---
Date of Service Date of service: 11/07/19 Time of Service: 10:28 Assessment and Plan Assessment and plan (1) Adrenal insufficiency: Status: Chronic Assessment and plan: Weaning dose of IV hydrocortisone with plan to change to home dose of oral steroid soon. (2) COPD (chronic obstructive pulmonary disease): Status: Chronic Assessment and plan: No acute exacerbation Cont Symbicort and Spiriva (3) C. difficile colitis: Status: Inactive Assessment and plan: Has recurrently but not active now. On fidaxomicin (4) Staphylococcus epidermidis bacteremia: Status: Acute Assessment and plan: question of bacteremia vs contamination. On ceftriaxone but favor contamination given the equivical signs/symptoms of sepsis on admission. Will not remove port-a-cath. Subjective Subjective Patient reports: no new complaints and feels better Interval history since last seen: No F/C. No tenderness at port-a-cath site. Tolerating diet. Exam Const General: cooperative and no acute distress Nutritional Appearance: obese Chest Chest: other (R sided port-a-cath w/o tenderness, redness.) Resp Effort & Inspection: normal respiratory effort Auscultation: clear to auscultation bilaterally Cardio Rate: regular rate Rhythm: regular rhythm Heart Sounds: S1 normal and S2 normal GI Inspection: obesity Palpation: soft Auscultation: normal bowel sounds Skin Rashes: no rashes Extrem General: pedal edema bilaterally (nonpitting) Objective Objective Clinical Data: Vital Signs Temperature 36.6 C 11/07/19 11:32 Temperature Source Temporal Artery Scan 11/07/19 11:32 Pulse 60 11/07/19 11:32 Pulse Rhythm Regular 11/07/19 09:38 Pulse 76 11/04/19 18:00 Respiratory Rate 18 11/07/19 11:32 Respiratory Effort Non-Labored 11/07/19 09:38 Respiratory Depth Normal 11/07/19 09:38 Respiratory Pattern Normal 11/07/19 09:38 Blood Pressure 129/78 11/07/19 11:32 Blood Pressure Mean 85 11/05/19 16:07 Blood Pressure Position Sitting 11/03/19 15:30 Pulse Oximetry 94 L 11/07/19 11:32 Oxygen Delivery Method Room Air 11/07/19 11:32 Oxygen Flow Rate 0 11/07/19 11:32 Pain Level 9 11/07/19 11:36 Comment 11/03/19 11:06 Intake & Output 11/06/19 11/07/19 11/07/19 23:59 11:59 23:59 Intake Total 150 / 640 250 / 250 Output Total 750 / 1800 1400 / 1850 450 / 1850 Balance -600 / -1160 -1150 / -1600 -450 / -1600 Weight 151 kg Intake: IV 50 / 50 250 / 250 Oral 100 / 590 Output: Urine 750 / 1800 1400 / 1850 450 / 1850 Other: Urine Color Yellow Yellow Straw Urine Appearance Clear Clear Clear Stool Size Large Stool Characteristics Soft Brown Laboratory Results WBC 5.47 10^3/uL (4.4-10.8) 11/06/19 06:50 RBC 2.77 10^6/uL (3.93-5.22) L 11/06/19 06:50 Hgb 7.5 g/dL (11.2-15.7) L 11/06/19 06:50 Hct 25.0 % (36.0-46.0) L 11/06/19 06:50 MCV 90.3 fL (80-95) 11/06/19 06:50 MCH 27.1 pg (27.0-33.0) 11/06/19 06:50 MCHC 30.0 % (32.0-36.0) L 11/06/19 06:50 RDW 15.8 % (11.7-14.6) H 11/06/19 06:50 Plt Count 146 10^3/uL (130-400) 11/06/19 06:50 MPV 9.4 fL (8.0-11.0) 11/06/19 06:50 Immature Gran % 0.4 11/06/19 06:50 Neutrophils % 78.6 11/06/19 06:50 Lymphocytes % 15.7 11/06/19 06:50 Monocytes % 4.9 11/06/19 06:50 Eosinophils % 0.2 11/06/19 06:50 Basophils % 0.2 11/06/19 06:50 Nucleated RBC % 0 % 11/06/19 06:50 Absolute Neutrophils 4.30 10^3/uL (1.2-6.7) 11/06/19 06:50 Absolute Lymphocytes 0.86 10^3/uL (1.2-3.4) L 11/06/19 06:50 Absolute Monocytes 0.27 10^3/uL (0.1-0.8) 11/06/19 06:50 Absolute Eosinophils 0.01 10^3/uL (0.0-0.7) 11/06/19 06:50 Absolute Basophils 0.01 10^3/uL (0.0-0.2) 11/06/19 06:50 RBC Morphology See below 11/04/19 06:00 Polychromasia Present 11/04/19 06:00 Hypochromasia 1+ 11/03/19 11:50 Basophilic Stippling Present 11/04/19 06:00 Anisocytosis 1+ 11/03/19 11:50 VBG Lactate 1.3 mmol/L (0.6-1.4) 11/03/19 19:49 Sodium 139 mmol/L (136-145) 11/06/19 06:50 Potassium 4.1 mmol/L (3.5-5.1) 11/06/19 06:50 Chloride 105 mmol/L (98-107) 11/06/19 06:50 Carbon Dioxide 28.0 mmol/L (21.0-32.0) 11/06/19 06:50 Anion Gap 6.0 mmol/L (3-11) 11/06/19 06:50 BUN 14 mg/dL (7-18) 11/06/19 06:50 Creatinine 0.90 mg/dL (0.55-1.02) 11/06/19 06:50 Estimated GFR/1.73 m2 >= 60.00 (mL/min/1.73m2) 11/06/19 06:50 Glucose 72 mg/dL (74-106) L D 11/06/19 06:50 Calcium 8.1 mg/dL (8.5-10.1) L 11/06/19 06:50 Magnesium 2.2 mg/dL (1.8-2.4) 11/06/19 06:50 Total Bilirubin 0.4 mg/dL (0.2-1.0) 11/03/19 11:50 AST 72 U/L (15-37) H 11/03/19 11:50 ALT 20 U/L (14-59) 11/03/19 11:50 Alkaline Phosphatase 179 U/L (46-116) H 11/03/19 11:50 Troponin I < 0.05 ng/mL (<0.06) 11/03/19 14:15 Total Protein 7.2 g/dL (6.4-8.2) 11/03/19 11:50 Albumin 2.8 g/dL (3.4-5.0) L 11/03/19 11:50 Urine Color Yellow (Yellow) 11/03/19 11:45 Urine Clarity Clear (Clear) 11/03/19 11:45 Urine pH 5.5 (5-8) 11/03/19 11:45 Ur Specific [place] 1.025 (1.005-1.025) 11/03/19 11:45 Urine Protein 30 mg/dL (Negative) H 11/03/19 11:45 Urine Ketones Negative mg/dL (Negative) 11/03/19 11:45 Urine Blood Moderate (Negative) H 11/03/19 11:45 Urine Nitrite Negative (Negative) 11/03/19 11:45 Urine Bilirubin Negative (Negative) 11/03/19 11:45 Urine Urobilinogen 0.2 EU/dL (Up TO 0.2) 11/03/19 11:45 Ur Leukocyte Esterase Negative (Negative) 11/03/19 11:45 Urine RBC 10-20 HPF (0-2) H 11/03/19 11:45 Urine WBC 0-2 HPF (0-5) 11/03/19 11:45 Ur Epithelial Cells Few HPF (Negative) 11/03/19 11:45 Urine Crystals Moderate amorphous HPF (Negative) 11/03/19 11:45 Urine Bacteria Negative HPF (Negative) 11/03/19 11:45 Urine Casts Negative LPF (Negative) 11/03/19 11:45 Urine Mucus Negative (Negative) 11/03/19 11:45 Ur Culture Indicated? No 11/03/19 11:45 Urine Glucose Negative mg/dL (Negative) 11/03/19 11:45 COVID-19 PCR Negative (Negative) 11/03/19 11:50 Nasopharyn COVID-19 PCR Not Applicable 11/03/19 11:50 Ref Test Perform Site [facility] lab 11/03/19 11:50
[2019-11-07] MEDS: Acetaminophen 325 MG TAB PO (16:33)
[2019-11-07] MEDS: Hydrocortisone SOD SUC. 100 MG VIAL 25 MG IVP ×2 (16:33→23:59)
[2019-11-07] MEDS: Apixaban 5 MG TAB PO (19:11)
[2019-11-07] MEDS: Atorvastatin 40 MG TAB PO (21:24)
[2019-11-08] MEDS: Levothyroxine 150 MCG TAB PO (06:33)
[2019-11-08 07:34] VITALS: BP 136/82; PULSE 61; RESP 18; TEMP 36.5; O2SAT 96
[2019-11-08] MEDS: Cyanocobalamin 500 MCG TAB 1000 MCG PO (08:04)
[2019-11-08] MEDS: Montelukast 10 MG TAB PO (08:05)
[2019-11-08] MEDS: Pregabalin 100 MG CAP 200 MG PO ×3 (08:05→19:14)
[2019-11-08] MEDS: Omeprazole 20 MG CAPCR 40 MG PO (08:06)
[2019-11-08] MEDS: Ferrous Sulfate 325 MG TAB PO (08:06)
[2019-11-08] MEDS: Folic Acid 1 MG TAB PO (08:06)
[2019-11-08] MEDS: Tolterodine 2 MG CAPCR 4 MG PO (08:06)
[2019-11-08] MEDS: Hydrocortisone SOD SUC. 100 MG VIAL 25 MG IVP ×2 (08:11→16:51)
[2019-11-08] MEDS: Normal Saline Flush 10 ML SYR IVP (08:12)
[2019-11-08 08:16] VITALS: O2SAT 97
[2019-11-08] MEDS: Tiotropium Bromide-Respimat 10 PUFF INH IH (08:16)
[2019-11-08] MEDS: Budesonide/Formoterol 160/4.5 6 GM 60 PUFF INH IH ×2 (08:18→19:15)
--- NOTE | 2019-11-08 09:27 | PDOC.CMPRO ---
- If Service Date Differs Date of service: 11/08/19 Time of Service: 09:27 Care Management Progress Note S/O: Candace was sitting up in a chair when CM met with her. She shared that she is disappointed that she cannot go home. She indicated that she feels fine and only needs to stay to see if a repeat blood culture is positive. To date only one culture out of 5 was positive and that grew staph epidermidis which is often a contaminant. Originally she was to have her implanted port removed today but because there are no additional positive blood cultures, this has been deferred. A BC drawn yesterday remains negative at 24 hours. Candace has been afebrile throughout her stay and her WBC has been WNL for the past 5 days. A: Candace is a 59 year old woman admitted on11/03/19 with septic shock, positive blood cultures x [address] [facility], remains on IV abx, with a history of stage 4 breast cancer, and declining health. P:Candace will be discharged home with a resumption of home health services. She will follow up with her PCP and community providers and discharge plan of care. Candace will transport with her daughter. CM will continue to support patient and family and assess for discharge planning needs.
[2019-11-08] MEDS: Fidaxomicin 200 MG TAB PO ×2 (09:29→19:14)
--- NOTE | 2019-11-08 10:53 | PT.INNT ---
Date of service: 11/08/19 Time of Service: 10:53 PT Notes Visit Reasons: SEPTIC SHOCK DUE TO C.DIFF, ADRENAL INSUFFUCIENCY 11/08/2019 Pt declined PT today due to fatigue and pain. Adrianne Mera, [employer]
[2019-11-08 11:21] LABS: Abs Immature Grans 0.04 10^3/uL (0.0-0.06); Absolute Basophil Count 0.01 10^3/uL (0.0-0.2); Absolute Eosinophil Count 0.03 10^3/uL (0.0-0.7); Absolute Lymphocyte Count 1.05 10^3/uL (1.2-3.4); Absolute Monocyte Count 0.42 10^3/uL (0.1-0.8); Absolute Neutrophil Count 3.14 10^3/uL (1.2-6.7); Basophils % 0.2; Eosinophils % 0.6; HCT 26.3 % (36.0-46.0); Immature Grans % 0.9; Lymphocytes % 22.4; MCH 27.4 pg (27.0-33.0); MCHC 30.4 % (32.0-36.0); MCV 90.1 fL (80-95); MPV 9.8 fL (8.0-11.0); Neutrophils % 66.9; Nucleated RBC 0 %; Platelet Count 172 10^3/uL (130-400); RBC 2.92 10^6/uL (3.93-5.22); RDW 16.3 % (11.7-14.6); RDW-SD 53.2 fL; WBC 4.69 10^3/uL (4.4-10.8)
[2019-11-08 11:35] VITALS: BP 116/70; PULSE 61; RESP 18; TEMP 36.6; O2SAT 99
--- NOTE | 2019-11-08 12:42 | W.PM.PROGNOT ---
Date of Service Date of service: 11/08/19 Time of Service: 12:43 Assessment and Plan Assessment and plan (1) Staphylococcus epidermidis bacteremia: Status: Acute Assessment and plan: Questionable bacteremia vs contaminant. On Rocephin. Considering whether to continue or not (2) C. difficile colitis: Status: Inactive Assessment and plan: No current active infection. On fidaxomicin while on antibiotics d/t recurrent disease. (3) Adrenal insufficiency: Status: Chronic Assessment and plan: Finish IV stress dose steroid today. Begin oral replacement tomorrow at higher than her usual home dose, then wean to usual dose. (4) Chronic venous stasis dermatitis: Status: Chronic Assessment and plan: Lac-hytrin BID (5) Diabetes mellitus: Status: Chronic Assessment and plan: Control appears to be excessively tight. AM glucose readings in the low 70's. Will decrease nightly dose. Qualifiers: Diabetes mellitus type: type 2 Diabetes mellitus shelter insulin use: with shelter use Diabetes mellitus complication status: with kidney complications Diabetes mellitus complication detail: with chronic kidney disease Chronic kidney disease stage: stage 3 (moderate) Qualified Code(s): E11.22 - Type 2 diabetes mellitus with diabetic chronic kidney disease; N18.3 - Chronic kidney disease, stage 3 (moderate); Z79.4 - intermission coordinator (current) use of insulin Subjective Subjective Patient reports: no new complaints Interval history since last seen: No F/C No CP, palpitations, SOA No dysuria. Appetite OK; No N/V/abd pain. No constipation, diarrhea Exam Const General: cooperative and no acute distress Nutritional Appearance: obese Resp Effort & Inspection: normal respiratory effort Auscultation: clear to auscultation bilaterally Cardio Jugular venous pressure: no JVD Rate: regular rate Rhythm: regular rhythm Heart Sounds: S1 normal and S2 normal GI Inspection: obesity Auscultation: normal bowel sounds Skin Full body images: 1. Brawny skin discoloration with generalized desquamation. Neuro General: patient alert and patient oriented x3 Cognition: normal cognition Extrem General: pedal edema bilaterally (nonpitting) Psych Appearance: grossly normal Mental Status: mental status grossly normal Mood: congruent mood Affect: normal affect Attitude: cooperative Objective Objective Clinical Data: Abnormal lab results 11/08/19 Range/Units 11:10 RBC 2.92 L (3.93-5.22) 10^6/uL Hgb 8.0 L (11.2-15.7) g/dL Hct 26.3 L (36.0-46.0) % MCHC 30.4 L (32.0-36.0) % RDW 16.3 H (11.7-14.6) % Absolute Lymphocytes 1.05 L (1.2-3.4) 10^3/uL Vital Signs Temperature 36.6 C 11/08/19 11:35 Temperature Source Temporal Artery Scan 11/08/19 11:35 Pulse 61 11/08/19 11:35 Pulse Rhythm Regular 11/08/19 08:07 Pulse 76 11/04/19 18:00 Respiratory Rate 18 11/08/19 11:35 Respiratory Effort Non-Labored 11/08/19 08:07 Respiratory Depth Normal 11/08/19 08:07 Respiratory Pattern Normal 11/08/19 08:07 Blood Pressure 116/70 11/08/19 11:35 Blood Pressure Mean 85 11/05/19 16:07 Blood Pressure Position Sitting 11/03/19 15:30 Pulse Oximetry 99 11/08/19 11:35 Oxygen Delivery Method Room Air 11/08/19 11:35 Oxygen Flow Rate 0 11/08/19 11:35 Pain Level 0 11/08/19 11:35 Comment 11/08/19 07:34 Intake & Output 11/07/19 11/08/19 11/08/19 23:59 11:59 23:59 Intake Total 110 / 360 250 / 250 Output Total 1450 / 2850 750 / 750 Balance -1340 / -2490 -500 / -500 Weight 150.8 kg Intake: IV 110 / 360 Oral 250 / 250 Output: Urine 1450 / 2850 750 / 750 Other: Urine Color Yellow Yellow Urine Appearance Clear Cloudy Sediment Laboratory Results WBC 4.69 10^3/uL (4.4-10.8) 11/08/19 11:10 RBC 2.92 10^6/uL (3.93-5.22) L 11/08/19 11:10 Hgb 8.0 g/dL (11.2-15.7) L 11/08/19 11:10 Hct 26.3 % (36.0-46.0) L 11/08/19 11:10 MCV 90.1 fL (80-95) 11/08/19 11:10 MCH 27.4 pg (27.0-33.0) 11/08/19 11:10 MCHC 30.4 % (32.0-36.0) L 11/08/19 11:10 RDW 16.3 % (11.7-14.6) H 11/08/19 11:10 Plt Count 172 10^3/uL (130-400) 11/08/19 11:10 MPV 9.8 fL (8.0-11.0) 11/08/19 11:10 Immature Gran % 0.9 11/08/19 11:10 Neutrophils % 66.9 11/08/19 11:10 Lymphocytes % 22.4 11/08/19 11:10 Monocytes % 9.0 11/08/19 11:10 Eosinophils % 0.6 11/08/19 11:10 Basophils % 0.2 11/08/19 11:10 Nucleated RBC % 0 % 11/08/19 11:10 Absolute Neutrophils 3.14 10^3/uL (1.2-6.7) 11/08/19 11:10 Absolute Lymphocytes 1.05 10^3/uL (1.2-3.4) L 11/08/19 11:10 Absolute Monocytes 0.42 10^3/uL (0.1-0.8) 11/08/19 11:10 Absolute Eosinophils 0.03 10^3/uL (0.0-0.7) 11/08/19 11:10 Absolute Basophils 0.01 10^3/uL (0.0-0.2) 11/08/19 11:10 RBC Morphology See below 11/04/19 06:00 Polychromasia Present 11/04/19 06:00 Hypochromasia 1+ 11/03/19 11:50 Basophilic Stippling Present 11/04/19 06:00 Anisocytosis 1+ 11/03/19 11:50 VBG Lactate 1.3 mmol/L (0.6-1.4) 11/03/19 19:49 Sodium 139 mmol/L (136-145) 11/06/19 06:50 Potassium 4.1 mmol/L (3.5-5.1) 11/06/19 06:50 Chloride 105 mmol/L (98-107) 11/06/19 06:50 Carbon Dioxide 28.0 mmol/L (21.0-32.0) 11/06/19 06:50 Anion Gap 6.0 mmol/L (3-11) 11/06/19 06:50 BUN 14 mg/dL (7-18) 11/06/19 06:50 Creatinine 0.90 mg/dL (0.55-1.02) 11/06/19 06:50 Estimated GFR/1.73 m2 >= 60.00 (mL/min/1.73m2) 11/06/19 06:50 Glucose 72 mg/dL (74-106) L D 11/06/19 06:50 Calcium 8.1 mg/dL (8.5-10.1) L 11/06/19 06:50 Magnesium 2.2 mg/dL (1.8-2.4) 11/06/19 06:50 Total Bilirubin 0.4 mg/dL (0.2-1.0) 11/03/19 11:50 AST 72 U/L (15-37) H 11/03/19 11:50 ALT 20 U/L (14-59) 11/03/19 11:50 Alkaline Phosphatase 179 U/L (46-116) H 11/03/19 11:50 Troponin I < 0.05 ng/mL (<0.06) 11/03/19 14:15 Total Protein 7.2 g/dL (6.4-8.2) 11/03/19 11:50 Albumin 2.8 g/dL (3.4-5.0) L 11/03/19 11:50 Urine Color Yellow (Yellow) 11/03/19 11:45 Urine Clarity Clear (Clear) 11/03/19 11:45 Urine pH 5.5 (5-8) 11/03/19 11:45 Ur Specific [place] 1.025 (1.005-1.025) 11/03/19 11:45 Urine Protein 30 mg/dL (Negative) H 11/03/19 11:45 Urine Ketones Negative mg/dL (Negative) 11/03/19 11:45 Urine Blood Moderate (Negative) H 11/03/19 11:45 Urine Nitrite Negative (Negative) 11/03/19 11:45 Urine Bilirubin Negative (Negative) 11/03/19 11:45 Urine Urobilinogen 0.2 EU/dL (Up TO 0.2) 11/03/19 11:45 Ur Leukocyte Esterase Negative (Negative) 11/03/19 11:45 Urine RBC 10-20 HPF (0-2) H 11/03/19 11:45 Urine WBC 0-2 HPF (0-5) 11/03/19 11:45 Ur Epithelial Cells Few HPF (Negative) 11/03/19 11:45 Urine Crystals Moderate amorphous HPF (Negative) 11/03/19 11:45 Urine Bacteria Negative HPF (Negative) 11/03/19 11:45 Urine Casts Negative LPF (Negative) 11/03/19 11:45 Urine Mucus Negative (Negative) 11/03/19 11:45 Ur Culture Indicated? No 11/03/19 11:45 Urine Glucose Negative mg/dL (Negative) 11/03/19 11:45 COVID-19 PCR Negative (Negative) 11/03/19 11:50 Nasopharyn COVID-19 PCR Not Applicable 11/03/19 11:50 Ref Test Perform Site [facility] lab 11/03/19 11:50
[2019-11-08] MEDS: cefTRIAXone 2 GM/50 ML BAG IVPB (13:55)
[2019-11-08 15:40] VITALS: BP 124/72; PULSE 62; RESP 19; TEMP 36.7; O2SAT 96
[2019-11-08 19:05] VITALS: BP 126/65; PULSE 71; RESP 19; TEMP 36.2; O2SAT 98
[2019-11-08] MEDS: Lachydrin 12% LOTION 225 GM BTL TP (19:14)
[2019-11-08] MEDS: Atorvastatin 40 MG TAB PO (21:17)
[2019-11-08 23:15] VITALS: BP 128/79; PULSE 65; RESP 19; TEMP 36.7; O2SAT 97
[2019-11-09] MEDS: Levothyroxine 150 MCG TAB PO (06:42)
[2019-11-09] MEDS: Tiotropium Bromide-Respimat 10 PUFF INH IH (07:42)
[2019-11-09] MEDS: Budesonide/Formoterol 160/4.5 6 GM 60 PUFF INH IH (07:42)
[2019-11-09 07:53] VITALS: BP 128/76; PULSE 60; RESP 19; TEMP 36.9; O2SAT 100
[2019-11-09] MEDS: Lachydrin 12% LOTION 225 GM BTL TP (08:08)
[2019-11-09] MEDS: Pregabalin 100 MG CAP 200 MG PO (08:09)
[2019-11-09] MEDS: Montelukast 10 MG TAB PO (08:09)
[2019-11-09] MEDS: Omeprazole 20 MG CAPCR 40 MG PO (08:09)
[2019-11-09] MEDS: Hydrocortisone 10 MG TAB 30 MG PO (08:09)
[2019-11-09] MEDS: Ferrous Sulfate 325 MG TAB PO (08:10)
[2019-11-09] MEDS: Cyanocobalamin 500 MCG TAB 1000 MCG PO (08:10)
[2019-11-09] MEDS: Tolterodine 2 MG CAPCR 4 MG PO (08:10)
[2019-11-09] MEDS: Fidaxomicin 200 MG TAB PO (08:10)
[2019-11-09] MEDS: Folic Acid 1 MG TAB PO (08:10)
--- NOTE | 2019-11-09 09:44 | PDOC.CMDIS ---
- If Service Date Differs Date of service: 11/09/19 Time of Service: 09:44 LACE Index Scoring Tool - Questions: Length of Stay (in days): 7 - 13 Acuity (Admit via E.D.?): Yes Comorbidities: Diabetes w/o Complication, Any Tumor, Liver or Renal Disease E.D. Visits: 16 - Answers: Total Score: 17 Risk of Readmission: High Risk Care Management Discharge Reason for Hospitalization: Sepsis Discharge Plan: Candace is being discharged home today with resumption of home health services. her daughter Claire will transport her home. Candace feels ready for discharge and wants to go home. CM contacted [facility] and provided hand off and will fax discharge information. Patient/Family Education Needs: Discharge instructions and follow up plan ask me three and self management. Services Needed at Discharge: Home Health Care Services
--- NOTE | 2019-11-09 10:25 | DSE_ITS ---
Date of service: 11/09/19 Time of Service: 10:27 DS: Diagnosis Discharge Diagnosis (1) Staphylococcus epidermidis bacteremia: Status: Acute (2) C. difficile colitis: Status: Inactive (3) Adrenal insufficiency: Status: Chronic (4) Chronic venous stasis dermatitis: Status: Chronic (5) Diabetes mellitus: Status: Chronic Discharge Plan Disposition Condition: Good Discharge Details Chief Complaint: GenMedical Clinical Impression: Sepsis associated hypotension, Diarrhea Reason For Visit: SEPTIC SHOCK DUE TO C.DIFF, ADRENAL INSUFFUCIENCY Admit Date/Time: 11/03/19 13:34 Admit Provider: Sheyla Reno Attending Provider: Sheyla Reno Primary Care Provider: ANNA TORO ED Provider: Kenia Melgoza Hospital Course Hospital Course: Ms Maynard is a 59 year old female, who is well known to our service, with PMHx of recurrent UTIs and multiple bouts of C.Diff, as well as adrenal insufficiency, and breast cancer with infusaport in place, on chemo, who this morning states she woke up, had diarrhea, felt tired and went back to bed and just did not feel right, describing it as blah. The patient denies respiratory complains, runny nose, sore throat, contacts with known COVID-19 positive individuals. She chronically does not have a sense of smell, but her sense of taste has been intact. She reports a LUQ pain that started on the way to the hospital. On evaluation in the ED, she was found to be hypotensive to as low as 85/30 and tachycardic. She had a white count of 12. She was afebrile. She did not require supplemental oxygen. UA was negative. CXR negative for PNA. She was treated with IVF and received empiric zosyn and flagyl in the ED as well as a bolus of IV hydrocortisone. Her infusaport has now been cultured. Apparently, no stool sample has been collected yet. We were asked to admit the patient for further care. She returned to her usual baseline readily after IV hydration. Her blood culture grew staph epidermidis. She was changed to a course of Rocephin. Echocardiogram showed no valvular vegetations. Given the organism, it may likely have been a contaminant. She will d/c to home without further antibiotics. She did not want to continue anticoagulation tx with Eliquis or any other agents. She was taking AC for previous pulmonary embolism that she said was not a definitive diagnoses. Her insulin doses were adjusted downward given a more controlled diet. She will resume her usual home doses upon discharge. Follow up with PCP in 1-2 weeks. Home Meds and New Rx's Prescriptions: New ammonium lactate 12 % Lotion 0 g topical BID Qty: 14 RF: 0 hydrocodone-acetaminophen 7.5-325 mg Tablet 2 tab PO Q6H PRN PRN (Reason: pain) Qty: 20 RF: 0 Dificid 200 mg Tablet 200 mg PO BID Qty: 10 RF: 0 Continued fentanyl 100 mcg/hr patch 72 hour 1 patch TD Q72H MDD 125 mcg Qty: 10 RF: 0 exemestane 25 mg tablet 25 mg PO DAILY Qty: 90 RF: 0 Xgeva 120 mg/1.7 mL (70 mg/mL) solution 120 mg SC Q4W Qty: 1.7 RF: 0 montelukast [Singulair] 10 MG tablet 10 mg PO DAILY RF: 0 cyanocobalamin (vitamin B-12) [Vitamin B-12] 1,000 MCG tablet 1,000 mcg PO DAILY RF: 0 folic acid 1 MG tablet 1 mg PO DAILY RF: 0 Spiriva Respimat 4 GM mist 1 puff Inhalation DAILY RF: 0 budesonide-formoterol [Symbicort] 10.2 GM HFA aerosol inhaler 2 puff Inhalation BID RF: 0 ondansetron HCl [Zofran] 8 MG tablet 8 mg PO TID PRNRF: 0 levothyroxine 150 mcg Tablet 150 mcg PO DAILY RF: 0 Trulicity 1.5 mg/0.5 mL Pen Injector 1.5 mg SUBCUT QWEEK RF: 0 Afinitor 10 mg tablet 10 mg PO DAILY RF: 0 pregabalin 200 mg capsule 200 mg PO TID RF: 0 tolterodine 4 mg capsule,extended release 24hr 4 mg PO DAILY RF: 0 atorvastatin 40 mg tablet 40 mg PO HS RF: 0 fentanyl 25 mcg/hr patch 72 hour 1 patch transdermal Q72H RF: 0 omeprazole 40 mg Capsule,Delayed Release(Dr/Ec) 40 mg PO DAILY RF: 0 ferrous sulfate 325 mg (65 mg iron) Tablet 325 mg PO DAILY RF: 0 cranberry 450 mg Tablet 450 mg PO DAILY RF: 0 Narcan 4 mg/actuation [place],Non-Aerosol 1 spray INTRANASAL PRN PRNRF: 0 Glucagon (HCl) Emergency Kit 1 mg Recon Soln 1 mg PRN PRNRF: 0 Humulin R U-500 (Conc) Kwikpen 500 unit/mL (3 mL) insulin pen 40 unit SUBCUT QNOON RF: 0 Humulin R U-500 (Conc) Kwikpen 500 unit/mL (3 mL) insulin pen 40 unit SUBCUT QPM RF: 0 Humulin R U-500 (Conc) Kwikpen 500 unit/mL (3 mL) insulin pen 70 unit SUBCUT QAM RF: 0 Lactobacillus acidophilus Capsule 1,000 mmu cells PO BID Qty: 30 RF: 0 hydrocortisone 10 mg Tablet 5 mg PO DAILY@1500 Qty: 0 RF: 0 hydrocortisone 5 mg Tablet 20 mg PO DAILY Qty: 0 RF: 0 Discontinued hydrocodone-acetaminophen 7.5-325 mg tablet 1 tab PO QID PRN (Reason: Pain) RF: 0 Eliquis 5 mg tablet 5 mg PO BID RF: 0 guaifenesin [Mucinex] 600 mg tablet extended release 12hr 600 mg PO BID PRNRF: 0 vancomycin [Vancocin] 125 mg capsule 125 mg PO QID 10 Days Qty: 40 RF: 0 Discharge Instructions Instructions: Type 2 Diabetes Management for Adults (DC) Activity:: Activity as Tolerated Activity:: Activity as Tolerated Equipment/Supplies:: No Equipment Needed Diet:: Carb Counting Discharge Data Discharge Physician: Puma Ibrahim DS: Summary Status at Discharge Functional status at discharge: independent ambulation Overall status at discharge: patient is back to baseline Mental Status: mental status grossly normal Speech and Movement: speech and movement normal Mood: congruent mood Affect: normal affect Exam Const General: cooperative and no acute distress Nutritional Appearance: obese Resp Effort & Inspection: normal respiratory effort Auscultation: clear to auscultation bilaterally Cardio Jugular venous pressure: no JVD Rate: regular rate Rhythm: regular rhythm Heart Sounds: S1 normal and S2 normal GI Inspection: obesity Palpation: soft Auscultation: normal bowel sounds Skin General skin exam: no rashes or lesions noted and other (brawny skin discoloration of ankles.) Extrem General: edema Laterality: bilateral (nonpitting) Psych Appearance: grossly normal Mental Status: mental status grossly normal Speech and Movement: speech and movement normal Mood: congruent mood Affect: normal affect Attitude: cooperative DS: Data Vitals/I&O Vitals and I&O: Vital Signs Temperature 36.9 C 11/09/19 07:53 Temperature Source Tympanic 11/09/19 07:53 Pulse 60 11/09/19 07:53 Pulse Rhythm Regular 11/09/19 01:30 Pulse 76 11/04/19 18:00 Respiratory Rate 19 11/09/19 07:53 Respiratory Effort 11/09/19 01:30 Respiratory Depth Normal 11/09/19 01:30 Respiratory Pattern Normal 11/09/19 01:30 Blood Pressure 128/76 11/09/19 07:53 Blood Pressure Mean 85 11/05/19 16:07 Blood Pressure Position Sitting 11/03/19 15:30 Pulse Oximetry 100 11/09/19 07:53 Oxygen Delivery Method Nasal Cannula 11/09/19 07:53 Oxygen Flow Rate 2 11/09/19 07:53 Pain Level 8 11/09/19 08:19 Comment 11/08/19 07:34 Intake & Output 11/08/19 11/08/19 11/09/19 11:59 23:59 11:59 Intake Total 500 / 1280 780 / 1280 480 / 480 Output Total 750 / 2400 1650 / 2400 1600 / 1600 Balance -250 / -1120 -870 / -1120 -1120 / -1120 Weight 150.8 kg 149.3 kg Intake: Oral 500 / 1280 780 / 1280 480 / 480 Output: Urine 750 / 2400 1650 / 2400 1600 / 1600 Other: Urine Color Yellow Pale Yellow Urine Appearance Cloudy Clear Clear Sediment Data Completed and Pending Labs on day of discharge: Labs from last 24 hours 11/08/19 11:10 WBC 4.69 RBC 2.92 L Hgb 8.0 L Hct 26.3 L MCV 90.1 MCH 27.4 MCHC 30.4 L RDW 16.3 H Plt Count 172 MPV 9.8 Immature Gran % 0.9 Neutrophils % 66.9 Lymphocytes % 22.4 Monocytes % 9.0 Eosinophils % 0.6 Basophils % 0.2 Nucleated RBC % 0 Absolute Neutrophils 3.14 Absolute Lymphocytes 1.05 L Absolute Monocytes 0.42 Absolute Eosinophils 0.03 Absolute Basophils 0.01 Preliminary micro results at discharge 11/07/19 12:42 Blood Culture - Preliminary Blood NO GROWTH 24 HOURS 11/05/19 09:12 Blood Culture - Preliminary Blood NO GROWTH 72 HOURS 11/05/19 09:00 Blood Culture - Preliminary Blood NO GROWTH 72 HOURS 11/03/19 16:50 Blood Culture - Preliminary Blood Staphylococcus Epidermidis [facility] Medical History Acute confusion due to infection (Resolved) Acute UTI (Inactive) Adenoma of pituitary (Chronic) benign; renoved surgically on steroids and synthroid to replete Bacteremia (Resolved) Citrobacter C. difficile diarrhea (Acute) Cancer related pain (Chronic) improved with fentanyl patch Carpal tunnel syndrome (Acute) Chronic adrenal insufficiency (Acute) Chronic pain (Chronic) Chronic respiratory failure with hypoxia (Chronic) Chronic venous stasis dermatitis (Chronic) COPD (chronic obstructive pulmonary disease) (Chronic) On nocturnal oxygen - 2L prn Depression (Chronic) Diabetes mellitus (Chronic) Insulin dependent Discharge planning issues (Resolved) Diverticulosis (Acute) DNI (do not intubate) (Acute) DNR (do not resuscitate) (Acute) Dyslipidemia (Chronic) E. coli bacteremia (Resolved) Fatigue (Chronic) Goals of care, counseling/discussion (Acute) History of breast cancer (Chronic) metastatic, with lymphatic spread and bone mets Hyperlipidemia (Acute) Hypopituitarism (Chronic) Hypothyroidism (Chronic) Influenza B (Acute) Iron deficiency anemia (Chronic) Left lower lobe pneumonia (Resolved) Metastatic breast cancer (Chronic) Obesity (Chronic) Obstructive sleep apnea (Chronic) per [facility] records Palliative care patient (Chronic) Pneumonia (Acute) POLST (Physician Orders for Life-Sustaining Treatment) (Acute) done 03/26/19; DNR/DNI Positive blood cultures (Ruled-out) Pulmonary emboli (Inactive) Recurrent urinary tract infection (Resolved) Restless leg syndrome (Acute) SOB (shortness of breath) (Resolved) Spinal stenosis (Acute) Stage IV breast cancer in female (Chronic) Toxic metabolic encephalopathy (Resolved) Uncontrolled pain (Resolved) Unsteady gait (Chronic) Urinary incontinence (Acute) UTI (urinary tract infection) (Resolved) Surgical History H/O bilateral mastectomy (Acute) H/O colonoscopy with polypectomy (Acute) H/O mastectomy (Chronic) bilateral History of carpal tunnel release of both wrists (Acute) Port-A-Cath in place (Acute) Status post transsphenoidal pituitary resection (Acute) Family History Father , age 83 from complications of diabetes Prostate cancer Diabetes Mother , age 79 from complications of Crohn's disease and colitis Crohn's disease Colitis Daughter No problems noted. Daughter No problems noted. Brother Arthritis severe Obesity Sister Diabetes Obesity Sister No problems noted. Sister No problems noted. Social History Smoking/Tobacco Use Status: Former Tobacco Use Alcohol Intake: never Drug use: Never Substance use type: does not use Caregiver/Support person: Yes Household members: children Number of Children: 2 Communication Needs: Hard of Hearing and Corrective Lenses Education Level: middle school Do you need help understanding health information?: Always current occupation: on disability Pets and animals: Yes (4 cats, 3 dogs, 1 bird, 6 hermit crabs) Pets and animals: cat(s), dog(s), bird(s) and other Details: hermit crabs Current gender identity: female What is your relationship status?: How often do you talk on the phone with friends or family?: once per week How often do you get together with friends or relatives?: three or more times per week Panel score (0-1 are the most socially isolated patients): 1 What type of physical activity do you participate in: none, sedentary lifestyle, wheelchair-bound and additional Details: needs a new wheelchair, cannot walk far, just a few steps Special pedro pablo needs: No Seatbelt use: always Working smoke detector in home: Yes Fire extinguisher in home: Yes Firearms in home: No Do you feel safe at home: Yes Do you feel safe in your relationship?: Yes Additional Social history: , with 2 children. 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 She is not currently working and is on disability. Has a history of tobacco, quit in 1992. Reports rare use of alcohol only. Lives with daughter Bhargavi in [place], and her other daughter is close. Uses a walker to ambulate. Hard to do recently, depending more on WC. In a lot of pain. Recent scans show progression of breast cancer.
--- NOTE | 2019-11-09 10:51 | PDOC.HHF2F_ITS ---
Home Health Certification Home Health Certification: 1. Encounter Date and Reason I certify that LITO GONZALEZ was seen by Puma Ibrahim MD on 11/09/19 and that I had a [id number] encounter with this patient that meets the physician face to face encounter requirements. 2. Clinical Findings Supporting Skilled Need and Homebound Status I certify that home health services are medically necessary, include either intermittent mcc and/or physical/speech therapy, and that this patient is homebound in that absences from the home require considerable and taxing effort and are infrequent or of short duration, or are attributable to the need to receive medical care. [X] (a) Attached documentation from encounter provides clinical findings supporting skilled need and homebound status (including what assistance patient requires to leave the home). The encounter with the patient was in whole, or in part, for the following medical condition, which is the primary reason for home health care: SEPTIC SHOCK DUE TO C.DIFF, ADRENAL INSUFFUCIENCY Senior Living: Resume services Physical Therapy:Resume services Speech Therapy: Homebound: Dysmobility d/t obesity and chronic pain. Unable to safely ambulate w/o the assistance of another person when outside of the home environment. 3. Certification and Authentication I certify that I composed the above information based on my clinical judgement relating to this patient's medical condition and, if applicable, clinical findings communicated to me by the NPP or inpatient physician who performed the Home Health Referral. All further orders will be obtained through _Nurys Martinez (Community Based Physician - PCP)
[2019-11-09 11:42] VITALS: BP 134/78; PULSE 64; RESP 18; TEMP 36.7; O2SAT 97
--- NOTE | 2019-11-09 12:09 | PT.INTREAT ---
Date of service: 11/09/19 Time of Service: 11:00 PT Notes Visit Reasons: SEPTIC SHOCK DUE TO C.DIFF, ADRENAL INSUFFUCIENCY Inpatient Physical Therapy Treatment Note [facility] Date: 11/09/2019 PRECAUTIONS: Fall, activity as tolerated SUBJECTIVE: Candace states that she is excited to be going home today. She reports that she is feeling much better and is agreeable to participating in gait training. OBJECTIVE: PAIN: No c/o pain BED MOBILITY/TRANSFERS Supine-sit: S Sit-stand: S Stand-sit: S Bed-Chair: S Chair-bed: S GAIT Assistive Device: FWW Weight bearing: Full Assist: SBA Distance: 50' ASSESSMENT: Patient tolerated session well without complaint. She was able to tolerate a progression in gait distance with FWW support and SBA. PLAN: Continue therapeutic intervention via Home Health PT. TREATMENT CODE/TIME: 10 minutes; [id number]
[2019-11-09] MEDS: Heparin 500 UNITS/5 ML SYRINGE IVP (13:04)
[2019-11-09] MEDS: Normal Saline Flush 10 ML SYR IVP (13:04)
--- NOTE | 2019-11-09 13:55 | CHAPLAIN ---
I visited with Candace this morning. She said she is likely being discharged today. Her port was not removed, as was planned a few days ago but was cleaned up some. Candace shared some personal history, telling me about her parents when she was younger, and then caring for them before they . Her granddaughter, Logan, started 7th grade today.
--- NOTE | 2019-11-11 16:02 | PT.INDS ---
Date of service: 11/11/19 PT Notes Visit Reasons: SEPTIC SHOCK DUE TO C.DIFF, ADRENAL INSUFFUCIENCY Inpatient Physical Therapy Discharge Summary Dates: 11/11/2019 Dates of Service: 11/05/2019 through 11/09/2019 This is a clinical summary of care provided on the duration of dates listed above. No charge was made in the completion of this documentation. Referring Doctor: Sheyla Reno MD PT Orders: PT CONSULT: Limited ability Precautions: Fall. Standard. Activity as tolerated. Patient Profile/Admitting Diagnosis: Candace is a 59-year-old female with chronic adrenal insufficiency and matastatic breast carcinoma who presented to the ED on 11/03/2019 with chief presentation of fever, low blood pressure, and suspicion of sepsis. Patient is diagnosed with sepsis due to infected [id number] (resolved as of 11/05/2019), sepsis associated hypotension (resolved as of 11/05/2019), and acute on chronic kidney injury. PMHX: Medical History Acute confusion due to infection (Resolved) Acute UTI (Resolved) Adenoma of pituitary (Chronic) benign; renoved surgically on steroids and synthroid to replete Bacteremia (Resolved) Citrobacter C. difficile diarrhea (Acute) Cancer related pain (Chronic) improved with fentanyl patch Carpal tunnel syndrome (Acute) Chronic adrenal insufficiency (Acute) Chronic pain (Chronic) Chronic respiratory failure with hypoxia (Chronic) Chronic venous stasis dermatitis (Chronic) COPD (chronic obstructive pulmonary disease) (Chronic) On nocturnal oxygen - 2L prn Depression (Chronic) Diabetes mellitus (Chronic) Insulin dependent Discharge planning issues (Resolved) Diverticulosis (Acute) DNI (do not intubate) (Acute) DNR (do not resuscitate) (Acute) Dyslipidemia (Chronic) E. coli bacteremia (Resolved) Fatigue (Acute) Goals of care, counseling/discussion (Acute) History of breast cancer (Chronic) metastatic, with lymphatic spread and bone mets Hyperlipidemia (Acute) Hypopituitarism (Chronic) Hypothyroidism (Chronic) Influenza B (Acute) Iron deficiency anemia (Acute) Left lower lobe pneumonia (Resolved) Metastatic breast cancer (Chronic) Obesity (Chronic) Obstructive sleep apnea (Chronic) per [facility] records Palliative care patient (Chronic) Pneumonia (Acute) POLST (Physician Orders for Life-Sustaining Treatment) (Acute) done 03/26/19; DNR/DNI Positive blood cultures (Ruled-out) Pulmonary emboli (Inactive) Recurrent urinary tract infection (Acute) Restless leg syndrome (Acute) SOB (shortness of breath) (Resolved) Spinal stenosis (Acute) Stage IV breast cancer in female (Chronic) Toxic metabolic encephalopathy (Resolved) Uncontrolled pain (Resolved) Unsteady gait (Chronic) Urinary incontinence (Acute) UTI (urinary tract infection) (Resolved) Surgical History H/O bilateral mastectomy (Acute) H/O colonoscopy with polypectomy (Acute) H/O mastectomy (Chronic) bilateral History of carpal tunnel release of both wrists (Acute) Port-A-Cath in place (Acute) Status post transsphenoidal pituitary resection (Acute) Social History/Home Situation: Candace lives with her daughter Kiki in [place], [place] in a two-story house with a ramp to enter with rails on both sides. Patient has stairs to the second floor of the house but has everything she needs on the first floor. She is disabled. She has 2 daughters locally. She receives choices for care highest needs, and her daughter Kiki is her primary provider for 12 years now. Kiki provides assistance with bathing and does meal preapration and assistance with lower body dressing. She was independent with front-wheeled walker for in-house ambulation and uses the 4-wheeled walker for outdoor ambulation. She has to walk about 80-90 feet to get to her car. She is dependent on her daughter for transportation to and from appointments. Daughter also provides assistance with bathing patient's back due to body habitus. Equipment Owned/DME: Bariatric FWW, bariatric hospital bed, bariatric recliner, bariatric front wheeled walker, new bariatric wheelchair with seat and back cushions Subjective: NT. See most recent SUPERVISOR STATEMENT CLERKS notes. Objective: General Observation: NT. See most recent SUPERVISOR STATEMENT CLERKS notes. Mental Status: NT. See most recent SUPERVISOR STATEMENT CLERKS notes. Pain: NT. See most recent SUPERVISOR STATEMENT CLERKS notes. ROM: Right Upper Extremity: Shoulder flexion WFL. Elbow flexion WFL. Hands/wrist and fingers are WFL. Left Upper Extremity: Shoulder flexion WFL. Elbow flexion WFL. Hands/wrist and fingers are WFL. Right Lower Extremity: Patient is able to bend hip to about 20 degrees beyond 90 while seated at edge of bed. Knee flexion WFL. Dorsiflexion/plantarflexion WFL. Left Lower Extremity: Patient is able to bend hip to about 10 degrees beyond 90 while seated at edge of bed. Knee flexion WFL. Dorsiflexion/plantarflexion WFL. Strength: Right Upper Extremity: Shoulder flexion 4/5. Elbow flexion 4/5. Services Coordinator strong and functional Left Upper Extremity: Shoulder flexion 4/5. Elbow flexion 4/5. Services Coordinator strong and functional. Right Lower Extremity: Hip flexion 3-/5. Knee flexion 4/-5. Knee extension 4-/5. Ankle dorsiflexion/plantarflexion 3+/5. Left Lower Extremity: Hip flexion 3-/5. Knee flexion 4-/5. Knee extension 4-/5. Ankle dorsiflexion/plantarflexion 4-/5. Bed Mobility/Transfers: Supine to sit supervision Sit to supine supervision Stand to sit supervision Bed to chair supervision Chair to bed vision Gait: 50 feet using a bariatric front wheeled walker with standby assist without increase in pain in the right hip after activity. Balance: Static Sitting: Good Dynamic Sitting: Good Static Standing: Fair Dynamic Standing: Fair Assessment: Candace continues to demonstrates need for an assistive ambulatory device for all mobility ADL performance, minimal breathlessness, right hip pain limiting ambulation tolerance, and balance impairment resulting from admitting diagnoses and co-morbidities. Candace is a 59-year-old female with chronic adrenal insufficiency and matastatic breast carcinoma who presented to the ED on 10/20/2019 with chief presentation of fever. Patient is diagnose with fever from suspected UTI with referral for skilled physical therapy services in order to address resulting impairments in mobility performance. Patient continues to present with clinical signs and symptoms consistent with current/admitting diagnoses that have resulted to mobility limitations, gait instability, generalized weakness, and impairment of motor control as demonstrated by the following impairment level findings: 1. Decreased strength to both hip major muscle groups 2. Impaired sitting/standing balance 3. Impaired activity tolerance 4. Limitation of joint range of motion in B hips Impairments are continuing to contribute to the following functional limitations: 1. Dependent bed mobility skills 2. Increased dependence with transfers 3. Inability to safely ambulate without assistive device and physical assistance 4. Increase completion time for mobility ADL performance 5. Increased fall risk 6. Inability to negotiate steps alone safely Goals: Goals X 1 week 1. Supine-Sit independent NOT MET 2. Sit-Supine independent NOT MET 3. Sit-Stand supervision NOT MET 4. Stand-Sit supervision NOT MET 5. Bed-Chair supervision NOT MET 6. Chair-Bed supervision NOT MET 7. Supervision indoor ambulation using FWW for at least 150 feet without dyspnea and 2/10 pain in R hip NOT MET 8. Independent with home exercise program NOT MET 9. Static/dynamic standing balance/tolerance good NOT MET DISCHARGE RECOMMENDATIONS: Patient will benefit from continued home health PT services in order to progress mobility level using four-wheeled walker, assess home safety, identify additional equipment needs, and cotninue with a functional maintenance program that will increase ability of patient to remain at home with daughter. No equipment needs at this time. TREATMENT CODE/TIME: NC. Thank you very much for this referral. Allie Miguel PT, DPT, CLT [facility] Inpatient PT at [place], [place]
== END 2019-11-09 13:06 | disposition home health service (06) | DRG 682 ==
LOC: ER 13:47 → ICU 11-04 08:35 → MS 11-05 22:21
PROVIDERS: Family Medicine; Admitting Provider Internal Medicine; Emergency Provider Registered Nurse Emergency; PCP Nurse Practitioner Family; Visit Provider Internal Medicine
DX: N17.9 Acute kidney failure, unspecified (principal); G92 Toxic encephalopathy; R78.81 Bacteremia; E27.40 Unspecified adrenocortical insufficiency; J96.11 Chronic respiratory failure with hypoxia; C79.51 Secondary malignant neoplasm of bone; C77.9 Secondary and unspecified malignant neoplasm of lymph node, unspecified; E23.0 Hypopituitarism; Z68.42 Body mass index [BMI] 45.0-49.9, adult; G89.3 Neoplasm related pain (acute) (chronic); I87.2 Venous insufficiency (chronic) (peripheral); J44.9 Chronic obstructive pulmonary disease, unspecified; Z99.81 Dependence on supplemental oxygen; F32.9 Major depressive disorder, single episode, unspecified; Z66 Do not resuscitate; E78.5 Hyperlipidemia, unspecified; Z85.3 Personal history of malignant neoplasm of breast; E03.9 Hypothyroidism, unspecified; D50.9 Iron deficiency anemia, unspecified; G47.33 Obstructive sleep apnea (adult) (pediatric); Z86.711 Personal history of pulmonary embolism; G25.81 Restless legs syndrome; R26.81 Unsteadiness on feet; E11.22 Type 2 diabetes mellitus with diabetic chronic kidney disease; Z79.4 Long term (current) use of insulin; N18.3 Chronic kidney disease, stage 3 (moderate); Z99.3 Dependence on wheelchair; B95.7 Other staphylococcus as the cause of diseases classified elsewhere; E66.01 Morbid (severe) obesity due to excess calories; R00.0 Tachycardia, unspecified; I95.9 Hypotension, unspecified; R19.7 Diarrhea, unspecified; Z79.899 Other long term (current) drug therapy
CPT/HCPCS: 36415; 36591; 80048; 80053; 87040; 87077; 93005; 93306; 94640; 96361; 96365; 96366; 96368; 96375; 97110; 97162; 97530; 99222; 99232; 99233; 99239; 99253; 99255; 99285; 99291; U0003; 71045; 74176; 81003; 81015; 83605; 83735; 84484; 85025; 87186; 87324; 93010; 94668; J1720; J2543; J3370

== ENCOUNTER 2019-11-15 15:41 | Inpatient (IN) | payer MEDICARE, MEDICAID, SELFPAY ==
[2019-11-15] VITALS (7 sets, daily range): BP systolic 103–158; BP diastolic 47–74; PULSE 78–82; RESP 16–30; TEMP 36.4–36.6; O2SAT 93–100
--- NOTE | 2019-11-15 15:59 | ED.GENADUL_ITS ---
Discharge Plan Disposition Patient Disposition: [facility] INPATIENT Condition: Poor Discharge Details Chief Complaint: Orthopedic Clinical Impression: Pelvic fracture Admit Date/Time: 11/15/19 18:40 Admit Provider: Robert Jose Attending Provider: Robert Jose Primary Care Provider: ANNA TORO ED Provider: Payton Gale Discharge Data Discharge Date/Time-TO BE ENTERED AT DEPARTURE: 11/15/19 19:25 Medical Decision Making Patient is a 59-year-old female, well-known to myself, presenting today with chief complaint of right hip pain. She reports that approximately 2 PM today she was trying to stand and pivot from her mechanical wheelchair into the car. States that she felt a pop. She did not suffer a fall at that time and was able to continue to move into the car. She reports that even once home, she was a ambulate into the house but then began having severe discomfort in the right hip. Patient does have chronic pain management and she does have known metastasis to this area which causes chronic pain. States that she is now unable to stand secondary to the discomfort. Fentanyl patches were removed in route and patient was given Versed and ketamine. She indicates the groin is maximal area of discomfort and states that this can radiate medially. She denies any pain in her back. No sensory deficit. Pain does not radiate into the lower extremity. Denies any fall or injury. On exam, patient does appear more comfortable at the time but did have discomfort with transfer from EMS stretcher to our bed. Seems to be in good spirits and excited to tell me about the success that she has had recently with physical therapy. She continues to be chronic appearing however and morbidly obese. She has 2+ distal pulses in the right lower extremity, sensation is intact. She has no saddle paresthesias. Secondary to pain in the hip, it is difficult to fully assess her spine. Her pain seems to be primarily over the groin and under the fold of the pannus. Exam is limited secondary to her body habitus. She does have 2+ pitting edema in bilateral lower extremities which is baseline for the patient equal bilaterally. I am primarily concerned for pathologic fracture at this time and plan to move forward with x-rays. X-ray of the hip was reviewed by myself while in the radiology department, do not appreciate any fracture Refer to CT. CT concerning for pelvic fracture. Will send these to [facility] and speak with orthopedics. And baseline labs. Patient is anemic with a hemoglobin of 8.8, this is baseline for the patient. Normal coags. Creatinine is elevated at 1.15. AST and alk phos are both elevated which is chronic baseline for the patient. Consulted with Dr. Franklin who advised consultation with [facility] particularly given the patient's metastasis to this area. Consulted with orthopedics at [facility]. He advised that this is a non-operable fracture. He advised pain control and mobilization with PT. He advised AP pelvis nonweightbearing and weightbearing. He advised that if this was stable it would be pain control. They will f/u with the patient in a few weeks. Spoke with care management. Also spoke with the patient's daughter multiple occasions. Relayed these concerns. At this time, patient continues to have difficulty with mobility and pain. She is receiving IV Dilaudid. We will need to admit to have her pain regimen adjusted as well as have her work with physical therapy on mobilization. I do feel that discussion with Dr. Braswell would also be of benefit to discuss continuing palliative care versus hospice care at this point. She does have a scheduled appointment with Dr. Navarro tomorrow at 10 AM, I did relay to care management . Spoke with hospitalist who agrees to admission. FINDINGS: Intraperitoneal space: Limited evaluation of the intrapelvic contents is unremarkable. Bones/joints: There is an acute appearing comminuted, mildly displaced fracture of the right iliac wing. No other acute fracture or dislocation is identified. There is a similar heterogeneous appearance of the right ilium. Soft tissues: Soft tissue swelling/edema about the right hip. otherwise unremarkable superficial soft tissues. IMPRESSION: 1. Acute comminuted and mildly displaced fracture of the right iliac wing with associated soft tissue edema. 2. Similar heterogeneous appearance of the right ilium which could be related to Paget's disease however correlation should be made with any known history or signs of malignancy as bony metastasis can have a similar appearance. HPI General Mode of arrival: EMS . Date/Time Provider Initiated Documentation: 11/15/19 15:59 . Limitations to Documentation: no limitations . Information obtained by: patient, EMS, RN notes reviewed and old records reviewed . History of Present Illness 59 year old F presents to the emergency department with the chief complaint of right hip pain, described as severe, with intensity rated at 9. Quality is described as stabbing, and is localized to the right and upper extremity. Patient reports no radiation. Patient started experiencing this hour(s) (1400) and it has been constant. Immobilization improves symptom(s), Movement worsens symptoms . Patient notes no other symptoms.. Patient did receive the following treatments prior to arrival, other (given ketamine and versed by EMS) Related Data Home Medications Medication Instructions Recorded Confirmed Spiriva Respimat 1 puff INHALATION DAILY 04/03/17 11/15/19 budesonide-formoterol [Symbicort] 2 puff INHALATION BID 04/03/17 11/15/19 cyanocobalamin (vitamin B-12) 1,000 mcg PO DAILY 04/03/17 11/15/19 [Vitamin B-12] folic acid 1 mg PO DAILY 04/03/17 11/15/19 montelukast [Singulair] 10 mg PO DAILY 04/03/17 11/15/19 ondansetron HCl [Zofran] 8 mg PO TID PRN 04/03/17 11/15/19 Trulicity 1.5 mg SUBCUT QWEEK 05/06/18 11/15/19 levothyroxine 150 mcg PO DAILY 05/06/18 11/15/19 Glucagon (HCl) Emergency Kit 1 mg PRN PRN 07/25/19 11/15/19 Humulin R U-500 (Conc) Kwikpen 40 unit SUBCUT QNOON 07/25/19 11/15/19 Humulin R U-500 (Conc) Kwikpen 40 unit SUBCUT QPM 07/25/19 11/15/19 Humulin R U-500 (Conc) Kwikpen 70 unit SUBCUT QAM 07/25/19 11/15/19 Narcan 1 spray INTRANASAL PRN PRN 07/25/19 11/15/19 cranberry 450 mg PO DAILY 07/25/19 11/15/19 ferrous sulfate 325 mg PO DAILY 07/25/19 11/15/19 omeprazole 40 mg PO DAILY 07/25/19 11/15/19 Lactobacillus acidophilus 1,000 mmu cells PO BID #30 cap 08/01/19 11/15/19 hydrocortisone 5 mg PO DAILY@1500 #0 tab 08/24/19 11/15/19 hydrocortisone 20 mg PO DAILY #0 tab 08/24/19 11/15/19 denosumab 120 mg/1.7 mL (70 mg/mL) 120 mg SC Q4W #1.7 ml 10/19/19 11/15/19 subcutaneous solution exemestane 25 mg tablet 25 mg PO DAILY #90 tab 10/19/19 11/15/19 fentanyl 100 mcg/hr transdermal 1 patch TD Q72H #10 each MDD 125 10/19/19 11/15/19 patch mcg Afinitor 10 mg PO DAILY 11/03/19 11/15/19 atorvastatin 40 mg PO HS 11/04/19 11/15/19 pregabalin 200 mg PO TID 11/04/19 11/15/19 tolterodine 4 mg PO DAILY 11/04/19 11/15/19 fentanyl 1 patch TRANSDERMAL Q72H 11/05/19 11/15/19 ammonium lactate 0 g TOPICAL BID #14 oz 11/09/19 11/15/19 fidaxomicin [Dificid] 200 mg PO BID #10 tab 11/09/19 11/15/19 hydrocodone-acetaminophen 2 tab PO Q6H PRN PRN #20 tab 11/09/19 11/15/19 Previous Rx's Medication Instructions Recorded Lactobacillus acidophilus 1,000 mmu cells PO BID #30 cap 08/01/19 hydrocortisone 5 mg PO DAILY@1500 #0 tab 08/24/19 hydrocortisone 20 mg PO DAILY #0 tab 08/24/19 denosumab 120 mg/1.7 mL (70 mg/mL) 120 mg SC Q4W #1.7 ml 10/19/19 subcutaneous solution exemestane 25 mg tablet 25 mg PO DAILY #90 tab 10/19/19 fentanyl 100 mcg/hr transdermal 1 patch TD Q72H #10 each MDD 125 10/19/19 patch mcg ammonium lactate 0 g TOPICAL BID #14 oz 11/09/19 fidaxomicin [Dificid] 200 mg PO BID #10 tab 11/09/19 hydrocodone-acetaminophen 2 tab PO Q6H PRN PRN #20 tab 11/09/19 Allergies Allergy/AdvReac Type Severity Reaction Status Date / Time bee venom protein (honey bee) Allergy Unknown Unverified 10/20/19 20:21 Latex, Natural Rubber AdvReac Intermediate Unverified 10/20/19 20:21 adhesive tape AdvReac Mild Unverified 10/20/19 20:21 General Stated Complaint: Orthopedic CARMEN: 3 Review of Systems Constitutional Constitutional: Reports as per HPI, Denies chills, Denies fever(s), Denies headache(s) and Denies weakness ENT Ears, Nose, Mouth, and Throat: Denies headache(s) Cardiovascular Cardiovascular: Reports as per HPI Respiratory Respiratory: Reports as per HPI and Denies cough Musculoskeletal Musculoskeletal: Reports as per HPI and Denies tingling Integumentary/Breasts Skin/Breast: Reports as per HPI, Denies rash and Denies wounds Neurologic Neurologic: Reports as per HPI, Denies headache(s), Denies tingling, Denies paresthesias and Denies weakness [facility] Medical History (Updated 11/16/19 @ 16:30 by MARYSOL Patton) Acute confusion due to infection Acute UTI Adenoma of pituitary benign; renoved surgically on steroids and synthroid to replete Bacteremia Citrobacter C. difficile diarrhea Cancer related pain improved with fentanyl patch Carpal tunnel syndrome Chronic adrenal insufficiency Chronic pain Chronic respiratory failure with hypoxia Chronic venous stasis dermatitis COPD (chronic obstructive pulmonary disease) On nocturnal oxygen - 2L prn Depression Diabetes mellitus Insulin dependent Discharge planning issues Diverticulosis DNI (do not intubate) DNR (do not resuscitate) Dyslipidemia E. coli bacteremia Fatigue Goals of care, counseling/discussion History of breast cancer metastatic, with lymphatic spread and bone mets Hyperlipidemia Hypopituitarism Hypothyroidism Influenza B Iron deficiency anemia Left lower lobe pneumonia Metastatic breast cancer Obesity Obstructive sleep apnea per [facility] records Palliative care patient Pneumonia POLST (Physician Orders for Life-Sustaining Treatment) done 03/26/19; DNR/DNI Positive blood cultures Pulmonary emboli Recurrent urinary tract infection Restless leg syndrome SOB (shortness of breath) Spinal stenosis Stage IV breast cancer in female Toxic metabolic encephalopathy Uncontrolled pain Unsteady gait Urinary incontinence UTI (urinary tract infection) Surgical History H/O bilateral mastectomy H/O colonoscopy with polypectomy H/O mastectomy bilateral History of carpal tunnel release of both wrists Port-A-Cath in place Status post transsphenoidal pituitary resection Family History Father , age 83 from complications of diabetes Prostate cancer Diabetes Mother , age 79 from complications of Crohn's disease and colitis Crohn's disease Colitis Daughter No problems noted. Daughter No problems noted. Brother Arthritis severe Obesity Sister Diabetes Obesity Sister No problems noted. Sister No problems noted. Social History Smoking/Tobacco Use Status: Former Tobacco Use Alcohol Intake: never Drug use: Never Substance use type: does not use Caregiver/Support person: Yes Household members: children Number of Children: 2 Communication Needs: Hard of Hearing and Corrective Lenses Education Level: middle school Do you need help understanding health information?: Always current occupation: on disability Pets and animals: Yes (4 cats, 3 dogs, 1 bird, 6 hermit crabs) Pets and animals: cat(s), dog(s), bird(s) and other Details: hermit crabs Current gender identity: female What is your relationship status?: How often do you talk on the phone with friends or family?: once per week How often do you get together with friends or relatives?: three or more times per week Panel score (0-1 are the most socially isolated patients): 1 What type of physical activity do you participate in: none, sedentary lifestyle, wheelchair-bound and additional Details: needs a new wheelchair, cannot walk far, just a few steps Special pedro pablo needs: No Seatbelt use: always Working smoke detector in home: Yes Fire extinguisher in home: Yes Firearms in home: No Do you feel safe at home: Yes Do you feel safe in your relationship?: Yes Additional Social history: , with 2 children. 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 She is not currently working and is on disability. Has a history of tobacco, quit in 1992. Reports rare use of alcohol only. Lives with daughter Bhargavi in [place], and her other daughter is close. Uses a walker to ambulate. Hard to do recently, depending more on WC. In a lot of pain. Recent scans show progression of breast cancer. Exam Const General: cooperative, comfortable, no acute distress, well developed, well gr oomed and ill appearing chronically Nutritional Appearance: well nourished and obese Orientation: alert and awake Resp Effort & Inspection: normal respiratory effort, able to speak in complete sentences and no respiratory distress Auscultation: clear to auscultation bilaterally Cardio Rate: regular rate Rhythm: regular rhythm Heart Sounds: S1 normal and S2 normal GI Inspection: normal to inspection and obesity Palpation: soft, no hepatosplenomegaly, not firm, no guarding and nontender Skin General skin exam: no rashes or lesions noted Lesions: no lesions Rashes: no rashes Trauma: no lacerations or abrasions Neuro General: patient alert and patient awake Cognition: normal cognition Speech: speech normal Gait: normal gait Motor: muscle tone normal throughout Sensory Exam: no sensory deficits noted Extrem Right lower extremity: normal to inspection (exam of right hip is limited secondary to body habitus), normal capillary refill, no joint enlargement, hip/thigh Details: normal to inspection and tenderness (groin); no swelling, ROM abnormal (normal rotation but pain with flexion), no ecchymosis, no crepitus, no deformity and no unusual warmth, knee Details: normal to inspection; no tenderness and foot (edematous (equal to contralateral side), distal pulses intact, good sensati); no edema Psych Appearance: grossly normal and well kempt Mental Status: mental status grossly normal Speech and Movement: speech and movement normal Course Vital Signs Vital signs: Vital Signs Temperature 36.5 C 11/15/19 15:45 Pulse 82 11/15/19 15:45 Respiratory Rate 16 11/15/19 15:45 Blood Pressure 103/74 11/15/19 15:45 Pulse Oximetry 97 11/15/19 15:45 Temperature 36.5 C 11/15/19 15:45 Temperature Source Skin 11/15/19 15:45 Pulse 82 11/15/19 15:45 Respiratory Rate 16 11/15/19 15:45 Respiratory Effort Non-Labored 11/15/19 15:45 Blood Pressure 103/74 11/15/19 15:45 Blood Pressure Position Supine 11/15/19 15:45 Pulse Oximetry 97 11/15/19 15:45 Oxygen Delivery Method Room Air 11/15/19 15:45 Oxygen Flow Rate 0 11/15/19 15:45 Pain Level 9 11/15/19 15:52
--- NOTE | 2019-11-15 16:00 | DI.RAD_ITS ---
EXAM: XR HIP RT 1V CLINICAL HISTORY: twist with pop, known metastatic cancer TECHNIQUE: COMPARISON: CR XR HIP RT COMPLETE AP PELVIS from 09/28/[address] PELVIC WO from 11/15/[address] PELVIC WO from 11/15/2019 FINDINGS: Initial radiographs of the right hip and pelvis are interpreted in conjunction with CT of the pelvis. The initial radiographs are of very limited technical quality and do not demonstrate an obvious fra cture. However, on CT, there is a mild to moderately displaced fracture of the right iliac wing whic h appears to be a pathological fracture through area bony metastasis. There is mild comminution of t he fracture and there is marked loss integrity of the cortex of pathological basis. No additional fracture seen involving pelvis or hips. No hip dislocation. No gross pelvic mass or a denopathy. No evidence of urinary tract obstruction. IMPRESSION: Mild to moderately displaced pathological right iliac wing fracture as described above. RADIATION DOSE DELIVERED: Total DLP
[2019-11-15] MEDS: Normal Saline Flush 10 ML SYR IVP ×3 (16:45→23:49)
[2019-11-15] MEDS: HYDROmorphone 2 MG/ML VIAL IVP ×3 (16:45→23:49)
--- NOTE | 2019-11-15 16:45 | RT.EKG_ITS ---
APPROVED REPORT Exam: Resting ECG Patient Location: E HR:76 bpm ECG Measurements Heart Rate 76 AXIS ME 191 P 64 QRSd 102 QRS 38 QT 387 T 24 QTc 437 Conclusion Sinus rhythm...normal P axis, V-rate 60- 99 Low voltage, precordial leads...precordial leads <1.0mV. Sinus. Less than 1mm ST depression in aVL and questionable in III and aVF which appears new compared to prev ious. No STEMI. Nondiagnostic.
--- NOTE | 2019-11-15 17:01 | DI.VRAD_ITS ---
PROCEDURE INFORMATION: Exam: CT Pelvis Without Contrast; Skeletal Exam date and time: 11/15/2019 4:31 PM Age: 59 years old Clinical indication: Other: Right hip, concern for pathological fracture TECHNIQUE: Imaging protocol: Computed tomography images of the pelvis without contrast. Exam focused on the skeletal structures. Radiation optimization: All CT scans at this facility use at least one of these dose optimization techniques: automated exposure control; mA and/or kV adjustment per patient size (includes targeted exams where dose is matched to clinical indication); or iterative reconstruction. COMPARISON: CT ABDOMEN PELVIS WO 11/04/2019 1:54 PM FINDINGS: Intraperitoneal space: Limited evaluation of the intrapelvic contents is unremarkable. Bones/joints: There is an acute appearing comminuted, mildly displaced fracture of the right iliac wing. No other acute fracture or dislocation is identified. There is a similar heterogeneous appearance of the right ilium. Soft tissues: Soft tissue swelling/edema about the right hip. otherwise unremarkable superficial soft tissues. IMPRESSION: 1. Acute comminuted and mildly displaced fracture of the right iliac wing with associated soft tissue edema. 2. Similar heterogeneous appearance of the right ilium which could be related to Paget's disease however correlation should be made with any known history or signs of malignancy as bony metastasis can have a similar appearance. Dictated and Authenticated by: Terry Ríos MD. Ordering:ELVIA Cain MD
--- NOTE | 2019-11-15 17:02 | DI.VRAD_ITS ---
PROCEDURE INFORMATION: Exam: XR Right Hip with Pelvis when Performed Exam date and time: 11/15/2019 4:23 PM Age: 59 years old Clinical indication: Other: Twist with pop known metastatic cancer; Patient HX: Patient unable to tolerate laying flat for lat, CT done TECHNIQUE: Imaging protocol: XR Right hip with pelvis when performed. Views: 1 view. COMPARISON: CT ABDOMEN PELVIS WO 11/04/2019 1:54 PM FINDINGS: Bones/joints: No definite acute fracture or dislocation. Soft tissues: Unremarkable soft tissues. Other findings: Limited exam due to underpenetration. IMPRESSION: No acute findings on this limited exam. Dictated and Authenticated by: Terry Ríos MD. Ordering:ELVIA Cain MD
[2019-11-15 17:29] LABS: Abs Immature Grans 0.02 10^3/uL (0.0-0.06); Absolute Basophil Count 0.01 10^3/uL (0.0-0.2); Absolute Eosinophil Count 0.09 10^3/uL (0.0-0.7); Absolute Lymphocyte Count 1.18 10^3/uL (1.2-3.4); Absolute Monocyte Count 0.24 10^3/uL (0.1-0.8); Absolute Neutrophil Count 4.45 10^3/uL (1.2-6.7); Basophils % 0.2; Eosinophils % 1.5; HCT 29.9 % (36.0-46.0); Immature Grans % 0.3; Lymphocytes % 19.7; MCH 26.7 pg (27.0-33.0); MCHC 29.4 % (32.0-36.0); MCV 90.6 fL (80-95); MPV 9.4 fL (8.0-11.0); Neutrophils % 74.3; Nucleated RBC 0 %; Platelet Count 187 10^3/uL (130-400); RDW 16.7 % (11.7-14.6); RDW-SD 55.7 fL; WBC 5.99 10^3/uL (4.4-10.8)
[2019-11-15 17:30] LABS: HGB 8.8 g/dL (11.2-15.7)
[2019-11-15 17:41] LABS: ALT 30 U/L (14-59); AST 83 U/L (15-37); Alkaline Phosphatase 193 U/L (46-116); Anion Gap 6.8 mmol/L (3-11); BUN 15 mg/dL (7-18); Bilirubin, Total 0.4 mg/dL (0.2-1.0); CO2 30.2 mmol/L (21.0-32.0); CREATININE 1.15 mg/dL (0.55-1.02); Calcium 8.9 mg/dL (8.5-10.1); Chloride 100 mmol/L (98-107); Estimated GFR 48.13 (mL/min/1.73m2); Glucose 246 mg/dL (74-106); Potassium 4.4 mmol/L (3.5-5.1); Sodium 137 mmol/L (136-145); Total Protein 7.6 g/dL (6.4-8.2)
[2019-11-15 17:42] LABS: PTT Activated 26.3 sec (21.0-31.4); Prothrombin Time 10.4 sec (9.3-11.0)
--- NOTE | 2019-11-15 18:29 | HPE_ITS ---
Date of service: 11/15/19 Time of Service: 18:30 Assessment and Plan Assessment and plan (1) Pelvic fracture: Status: Acute Assessment and plan: Pelvic fracture, pathological. Will give prn analgesics and consult PT. Will also consult Ortho for any further input. I do not see that patient needs stress steroids at present and will continue usual dose HC. History of Present Illness History of Present Illness Chief Complaint: pelvic fracture Narrative: 59 female with metastatic breast CA. While standing up today felt a pop in right groin with immediate pain. In ER fracture of right iliac wing noted. case reviewed with [place]o, who [place] [facility] [place] [facility] [place] management[place] Parient given 2 mg Dilaudid IV, pain OK as long as she is still. Admitted for further management. Review of Systems All systems reviewed & are unremarkable except as noted in HPI and below PFSH Medical History (Updated 11/15/19 @ 18:37 by Robert Jose MD) Acute confusion due to infection Acute UTI Adenoma of pituitary benign; renoved surgically on steroids and synthroid to replete Bacteremia Citrobacter C. difficile diarrhea Cancer related pain improved with fentanyl patch Carpal tunnel syndrome Chronic adrenal insufficiency Chronic pain Chronic respiratory failure with hypoxia Chronic venous stasis dermatitis COPD (chronic obstructive pulmonary disease) On nocturnal oxygen - 2L prn Depression Diabetes mellitus Insulin dependent Discharge planning issues Diverticulosis DNI (do not intubate) DNR (do not resuscitate) Dyslipidemia E. coli bacteremia Fatigue Goals of care, counseling/discussion History of breast cancer metastatic, with lymphatic spread and bone mets Hyperlipidemia Hypopituitarism Hypothyroidism Influenza B Iron deficiency anemia Left lower lobe pneumonia Metastatic breast cancer Obesity Obstructive sleep apnea per [facility] records Palliative care patient Pneumonia POLST (Physician Orders for Life-Sustaining Treatment) done 03/26/19; DNR/DNI Positive blood cultures Pulmonary emboli Recurrent urinary tract infection Restless leg syndrome SOB (shortness of breath) Spinal stenosis Stage IV breast cancer in female Toxic metabolic encephalopathy Uncontrolled pain Unsteady gait Urinary incontinence UTI (urinary tract infection) Surgical History H/O bilateral mastectomy H/O colonoscopy with polypectomy H/O mastectomy bilateral History of carpal tunnel release of both wrists Port-A-Cath in place Status post transsphenoidal pituitary resection Family History Father , age 83 from complications of diabetes Prostate cancer Diabetes Mother , age 79 from complications of Crohn's disease and colitis Crohn's disease Colitis Daughter No problems noted. Daughter No problems noted. Brother Arthritis severe Obesity Sister Diabetes Obesity Sister No problems noted. Sister No problems noted. Social History Smoking/Tobacco Use Status: Former Tobacco Use Alcohol Intake: never Drug use: Never Substance use type: does not use Caregiver/Support person: Yes Household members: children Number of Children: 2 Communication Needs: Hard of Hearing and Corrective Lenses Education Level: middle school Do you need help understanding health information?: Always current occupation: on disability Pets and animals: Yes (4 cats, 3 dogs, 1 bird, 6 hermit crabs) Pets and animals: cat(s), dog(s), bird(s) and other Details: hermit crabs Current gender identity: female What is your relationship status?: How often do you talk on the phone with friends or family?: once per week How often do you get together with friends or relatives?: three or more times per week Panel score (0-1 are the most socially isolated patients): 1 What type of physical activity do you participate in: none, sedentary lifestyle, wheelchair-bound and additional Details: needs a new wheelchair, cannot walk far, just a few steps Special pedro pablo needs: No Seatbelt use: always Working smoke detector in home: Yes Fire extinguisher in home: Yes Firearms in home: No Do you feel safe at home: Yes Do you feel safe in your relationship?: Yes Additional Social history: , with 2 children. 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 She is not currently working and is on disability. Has a history of tobacco, quit in 1992. Reports rare use of alcohol only. Lives with daughter Bhargavi in [place], and her other daughter is close. Uses a walker to ambulate. Hard to do recently, depending more on WC. In a lot of pain. Recent scans show progression of breast cancer. Meds Home Medications and Allergies Home Medications Medication Instructions Recorded Confirmed Type Spiriva Respimat 1 puff INHALATION DAILY 04/03/17 11/15/19 History budesonide-formoterol [Symbicort] 2 puff INHALATION BID 04/03/17 11/15/19 History cyanocobalamin (vitamin B-12) 1,000 mcg PO DAILY 04/03/17 11/15/19 History [Vitamin B-12] folic acid 1 mg PO DAILY 04/03/17 11/15/19 History montelukast [Singulair] 10 mg PO DAILY 04/03/17 11/15/19 History ondansetron HCl [Zofran] 8 mg PO TID PRN 04/03/17 11/15/19 History Trulicity 1.5 mg SUBCUT QWEEK 05/06/18 11/15/19 History levothyroxine 150 mcg PO DAILY 05/06/18 11/15/19 History Glucagon (HCl) Emergency Kit 1 mg PRN PRN 07/25/19 11/15/19 History Humulin R U-500 (Conc) Kwikpen 40 unit SUBCUT QNOON 07/25/19 11/15/19 History Humulin R U-500 (Conc) Kwikpen 40 unit SUBCUT QPM 07/25/19 11/15/19 History Humulin R U-500 (Conc) Kwikpen 70 unit SUBCUT QAM 07/25/19 11/15/19 History Narcan 1 spray INTRANASAL PRN PRN 07/25/19 11/15/19 History cranberry 450 mg PO DAILY 07/25/19 11/15/19 History ferrous sulfate 325 mg PO DAILY 07/25/19 11/15/19 History omeprazole 40 mg PO DAILY 07/25/19 11/15/19 History Lactobacillus acidophilus 1,000 mmu cells PO BID #30 cap 08/01/19 11/15/19 Rx hydrocortisone 5 mg PO DAILY@1500 #0 tab 08/24/19 11/15/19 Rx hydrocortisone 20 mg PO DAILY #0 tab 08/24/19 11/15/19 Rx denosumab 120 mg/1.7 mL (70 mg/mL) 120 mg SC Q4W #1.7 ml 10/19/19 11/15/19 Rx subcutaneous solution exemestane 25 mg tablet 25 mg PO DAILY #90 tab 10/19/19 11/15/19 Rx fentanyl 100 mcg/hr transdermal 1 patch TD Q72H #10 each MDD 125 10/19/19 11/15/19 Rx patch mcg Afinitor 10 mg PO DAILY 11/03/19 11/15/19 History atorvastatin 40 mg PO HS 11/04/19 11/15/19 History pregabalin 200 mg PO TID 11/04/19 11/15/19 History tolterodine 4 mg PO DAILY 11/04/19 11/15/19 History fentanyl 1 patch TRANSDERMAL Q72H 11/05/19 11/15/19 History ammonium lactate 0 g TOPICAL BID #14 oz 11/09/19 11/15/19 Rx fidaxomicin [Dificid] 200 mg PO BID #10 tab 11/09/19 11/15/19 Rx hydrocodone-acetaminophen 2 tab PO Q6H PRN PRN #20 tab 11/09/19 11/15/19 Rx Allergies Allergy/AdvReac Type Severity Reaction Status Date / Time bee venom protein (honey bee) Allergy Unknown Unverified 10/20/19 20:21 Latex, Natural Rubber AdvReac Intermediate Unverified 10/20/19 20:21 adhesive tape AdvReac Mild Unverified 10/20/19 20:21 Exam Narrative Exam Narrative: 119/47, 79, 16-30, 95% RA. HEENT atraumatic; neck supple; lungs clear; heart RRR; abdomen soft and NT; extremities chronic lymphedema, pain right pelvis with hip PROM, distal CSM intact Results Labs Result diagrams: 11/15/19 17:20 11/15/19 17:20 Labs: Laboratory Results - last 24 hr 11/15/19 11/15/19 11/15/19 17:20 17:20 17:20 WBC 5.99 RBC 3.30 L Hgb 8.8 L Hct 29.9 L MCV 90.6 MCH 26.7 L MCHC 29.4 L RDW 16.7 H Plt Count 187 MPV 9.4 Immature Gran % 0.3 Neutrophils % 74.3 Lymphocytes % 19.7 Monocytes % 4.0 Eosinophils % 1.5 Basophils % 0.2 Nucleated RBC % 0 Absolute Neutrophils 4.45 Absolute Lymphocytes 1.18 L Absolute Monocytes 0.24 Absolute Eosinophils 0.09 Absolute Basophils 0.01 PT 10.4 INR 1.0 APTT 26.3 Sodium 137 Potassium 4.4 Chloride 100 Carbon Dioxide 30.2 Anion Gap 6.8 BUN 15 Creatinine 1.15 H Estimated GFR/1.73 m2 48.13 Glucose 246 H Calcium 8.9 Total Bilirubin 0.4 AST 83 H ALT 30 Alkaline Phosphatase 193 H Total Protein 7.6 Albumin 3.0 L Last Vital Signs Temp 36.5 C 11/15/19 15:45 Pulse 79 11/15/19 18:19 Resp 30 H 11/15/19 18:19 BP 119/47 L 11/15/19 18:19 Pulse Ox 95 11/15/19 18:19 COVID-19 Screening Have you,or household,traveled outside [place] in last 14 days?: No Had IN PERSON contact w/suspected or confirmed C-19 person: No
[2019-11-15] MEDS: Pregabalin 100 MG CAP 200 MG PO (22:02)
[2019-11-15] MEDS: Lactobacillus Acidophilus CAP 1 CAP PO (22:02)
[2019-11-15] MEDS: Atorvastatin 40 MG TAB PO (22:02)
[2019-11-16] MEDS: HYDROmorphone 2 MG/ML VIAL IVP (03:35)
[2019-11-16] MEDS: Normal Saline Flush 10 ML SYR IVP ×3 (03:36→18:21)
[2019-11-16 03:40] VITALS: BP 134/65; PULSE 101; RESP 19; TEMP 36.2; O2SAT 94
[2019-11-16] MEDS: Levothyroxine 150 MCG TAB PO (06:40)
[2019-11-16 07:40] VITALS: BP 142/54; PULSE 99; RESP 18; TEMP 36.7; O2SAT 95
[2019-11-16] MEDS: Budesonide/Formoterol 160/4.5 6 GM 60 PUFF INH IH ×2 (07:50→20:02)
[2019-11-16] MEDS: Tiotropium Bromide-Respimat 10 PUFF INH IH (07:51)
[2019-11-16] MEDS: fentaNYL 100 MCG PATCH TD (07:56)
[2019-11-16] MEDS: Hydrocortisone 10 MG TAB 20 MG PO (07:57)
[2019-11-16] MEDS: fentaNYL 25 MCG PATCH TD ×2 (07:57→11:43)
[2019-11-16] MEDS: Tolterodine 2 MG CAPCR 4 MG PO (07:57)
[2019-11-16] MEDS: Ferrous Sulfate 325 MG TAB PO (07:57)
[2019-11-16] MEDS: Omeprazole 20 MG CAPCR 40 MG PO (07:57)
[2019-11-16] MEDS: Pregabalin 100 MG CAP 200 MG PO ×2 (07:57→20:01)
[2019-11-16] MEDS: Lactobacillus Acidophilus CAP 1 CAP PO ×2 (07:58→20:02)
[2019-11-16] MEDS: Cyanocobalamin 500 MCG TAB 1000 MCG PO (07:58)
[2019-11-16] MEDS: Montelukast 10 MG TAB PO (07:58)
[2019-11-16] MEDS: Folic Acid 1 MG TAB PO (07:58)
[2019-11-16] MEDS: Insulin Aspart 300 UNITS/3 ML PEN SC ×2 (07:59→11:44)
--- NOTE | 2019-11-16 09:19 | PDOC.CMIN ---
- If Service Date Differs Date of service: 11/16/19 Time of Service: 09:19 Care Management Initial Assess REASON FOR HOSPITALIZATION:: Pelvic fracture PAST MEDICAL HISTORY/PAST SURGICAL HISTORY:: Medical History (Updated 11/15/19 @ 18:37 by Robert Jose MD). Acute confusion due to infection. Acute UTI. Adenoma of pituitary. benign; renoved surgically. on steroids and synthroid to replete. Bacteremia. Citrobacter. C. difficile diarrhea. Cancer related pain. improved with fentanyl patch. Carpal tunnel syndrome. Chronic adrenal insufficiency. Chronic pain. Chronic respiratory failure with hypoxia. Chronic venous stasis dermatitis. COPD (chronic obstructive pulmonary disease). On nocturnal oxygen - 2L prn. Depression. Diabetes mellitus. Insulin dependent. Discharge planning issues. Diverticulosis. DNI (do not intubate). DNR (do not resuscitate). Dyslipidemia. E. coli bacteremia. Fatigue. Goals of care, counseling/discussion. History of breast cancer. metastatic, with lymphatic spread and bone mets. Hyperlipidemia. Hypopituitarism. Hypothyroidism. Influenza B. Iron deficiency anemia. Left lower lobe pneumonia. Metastatic breast cancer. Obesity. Obstructive sleep apnea. per [facility] records. Palliative care patient. Pneumonia. POLST (Physician Orders for Life-Sustaining Treatment). done 03/26/19; DNR/DNI. Positive blood cultures. Pulmonary emboli. Recurrent urinary tract infection. Restless leg syndrome. SOB (shortness of breath). Spinal stenosis. Stage IV breast cancer in female. Toxic metabolic encephalopathy. Uncontrolled pain. Unsteady gait. Urinary incontinence. UTI (urinary tract infection). Surgical History . H/O bilateral mastectomy. H/O colonoscopy with polypectomy. H/O mastectomy. bilateral. History of carpal tunnel release of both wrists. Port-A-Cath in place. Status post transsphenoidal pituitary resection PREVIOUS FUNCTIONAL STATUS/SOCIAL/FAMILY SUPPORTS:: Candace lives in a single family home with her daughter Kiki and her children, in [facility]. She has two daughters who reside locally. She is currently disabled and receives [facility] highest needs. Kiki is her primary caregiver. Candace utilizes a walker for ambulation, and a wheeled walker for distance. She is dependent on her daughter for transportation to and from appointments. CURRENT FUNCTIONAL STATUS:: Candace was sitting up in bed when CM met with her. Dr. Royal came in to do a palliative care consult and Kiki, Masoud' daughter and caregiver, was also present. Dr. Royal discussed Masoud current injury and the fact that she had a pathological fracture that might not heal. Goals of care were discussed and both Candace and Kiki want to focus on pain control. The decision was made to discharge Candace with a pain pump that allows for Candace to bolus extra doses if needed. Dr. Royal will arrange for the pump to be started today to ensure it is able to control her pain before discharge. ADVANCE DIRECTIVES:: on file- [facility] Has patient been provided with info about the portal/API?: Yes Did the patient sign up for the portal?: No CODE STATUS:: DNR/DNI INSURANCE COVERAGE / FINANCIAL ISSUES:: Medicare. Medicaid ([facility] high highest) CURRENT HOME/COMMUNITY SERVICES/EQUIPMENT:: Candace has [facility], highest needs. She uses a walker forambulation and has home health nursing through [facility] PRIMARY CARE PHYSICIAN:: Nurys Martinez POTENTIAL DISCHARGE NEEDS:: Follow up with PCP, Oncology. [facility] and plan of care PATIENT/FAMILY EDUCATION NEEDS:: Discharge plan, limitations, follow up plan, Ask Me Three TRANSPORTATION:: via ambulance coordinated by CM PLAN:: Candace will be discharged home with a resumption of home health nursinbg. She will have a pain pump to deliver hydromorphone and will have the ability to bolus if needed for breakthrough pain. She will follow up with her PCP and Oncologist and transport via ambulance as she is unable to walk or sit up at this time. CM will continue to support patient, family and discharge planning needs. Readmission - Within the Past 30 Days Yes or No: Y - Date of First Admission Date of 1st Admission: 11/03/19 - Date of this Admission Date of Admission: 11/15/19 This admission was: Through ED - Office Visit Since 1st Admission Have you seen your PCP in the office since discharge?: No - If the patient had home care service Call them to discuss the patient's admission: Spoke with Rafaela, Intake nurse at [facility] and informed her of Candace's admission for a pathological fracture. They have been seeing her for a long time and knew she had metastasis to the right hip. CM will coordinate discharge with them. - Ask the Care Team Members: What do you think caused the patient to be readmitted: pathological fracture occurs with metastatic disease.. - Assessment for Readmission Summary of readmission circumstances, based upon interviews: Candace has a long history of metastatic cancer with involvement of bone. She moved to get into her van, felt a pop in her groin and experienced a great deal of pain a short time later.
--- NOTE | 2019-11-16 13:30 | W.ORTHOCONSU ---
Date of service: 11/16/19 Time of Service: 13:30 History of Present Illness History of Present Illness Chief Complaint: Right iliac wing pain Narrative: This is a 59-year-old white female status post mastectomy for breast CA for some 4 years ago. She did have chemotherapy but refused radiation in the past. She has not been experiencing any particular problems until she was getting into her van yesterday. As she went to lift her right leg up into the fan she felt a pop in the area of her right iliac wing. The pop itself did not hurt, but she experienced increasing pain in the area shortly thereafter. She was brought to the emergency room where x-rays showed extensive metastases to her right ilium with a pathologic fracture of her right iliac wing. She was admitted for pain control and further evaluation. She says she is already spoken with Dr. Navarro about further care. She says she is totally against any radiation. She is comfortable with the diagnosis and prognosis. She says the plans are for her to go home with comfort care. Assessment and Plan Assessment and plan (1) Pelvic fracture: Status: Acute Assessment and plan: Assessment: Pathologic fracture right ilium with extensive metastases throughout the right ilium. No particular involvement of the SI joint of the right hip joint is seen. Patient has known breast carcinoma. She is not having severe pain at rest. So far her pain is controlled with medication. She is adamant about not having radiation. I think as long as her pain is controlled with medication that I think that comfort care is totally appropriate for her. There are no indications for surgery for this fracture. Plan: Comfort Care to treat her pain as planned by her primary care providers. No need for any particular orthopedic care. Qualifiers: Encounter type: initial encounter Pelvic bone location: ilium Fracture type: closed Fracture morphology: unspecified fracture morphology Fracture alignment: displaced Laterality: right Qualified Code(s): S32.301A - Unspecified fracture of right ilium, initial encounter for closed fracture [facility] Medical History (Updated 11/16/19 @ 13:37 by Michael Franklin MD) Acute confusion due to infection Acute UTI Adenoma of pituitary benign; renoved surgically on steroids and synthroid to replete Bacteremia Citrobacter C. difficile diarrhea Cancer related pain improved with fentanyl patch Carpal tunnel syndrome Chronic adrenal insufficiency Chronic pain Chronic respiratory failure with hypoxia Chronic venous stasis dermatitis COPD (chronic obstructive pulmonary disease) On nocturnal oxygen - 2L prn Depression Diabetes mellitus Insulin dependent Discharge planning issues Diverticulosis DNI (do not intubate) DNR (do not resuscitate) Dyslipidemia E. coli bacteremia Fatigue Goals of care, counseling/discussion History of breast cancer metastatic, with lymphatic spread and bone mets Hyperlipidemia Hypopituitarism Hypothyroidism Influenza B Iron deficiency anemia Left lower lobe pneumonia Metastatic breast cancer Obesity Obstructive sleep apnea per [facility] records Palliative care patient Pneumonia POLST (Physician Orders for Life-Sustaining Treatment) done 03/26/19; DNR/DNI Positive blood cultures Pulmonary emboli Recurrent urinary tract infection Restless leg syndrome SOB (shortness of breath) Spinal stenosis Stage IV breast cancer in female Toxic metabolic encephalopathy Uncontrolled pain Unsteady gait Urinary incontinence UTI (urinary tract infection) Surgical History H/O bilateral mastectomy H/O colonoscopy with polypectomy H/O mastectomy bilateral History of carpal tunnel release of both wrists Port-A-Cath in place Status post transsphenoidal pituitary resection Family History Father , age 83 from complications of diabetes Prostate cancer Diabetes Mother , age 79 from complications of Crohn's disease and colitis Crohn's disease Colitis Daughter No problems noted. Daughter No problems noted. Brother Arthritis severe Obesity Sister Diabetes Obesity Sister No problems noted. Sister No problems noted. Social History Smoking/Tobacco Use Status: Former Tobacco Use Alcohol Intake: never Drug use: Never Substance use type: does not use Caregiver/Support person: Yes Household members: children Number of Children: 2 Communication Needs: Hard of Hearing and Corrective Lenses Education Level: middle school Do you need help understanding health information?: Always current occupation: on disability Pets and animals: Yes (4 cats, 3 dogs, 1 bird, 6 hermit crabs) Pets and animals: cat(s), dog(s), bird(s) and other Details: hermit crabs Current gender identity: female What is your relationship status?: How often do you talk on the phone with friends or family?: once per week How often do you get together with friends or relatives?: three or more times per week Panel score (0-1 are the most socially isolated patients): 1 What type of physical activity do you participate in: none, sedentary lifestyle, wheelchair-bound and additional Details: needs a new wheelchair, cannot walk far, just a few steps Special pedro pablo needs: No Seatbelt use: always Working smoke detector in home: Yes Fire extinguisher in home: Yes Firearms in home: No Do you feel safe at home: Yes Do you feel safe in your relationship?: Yes Additional Social history: , with 2 children. 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 She is not currently working and is on disability. Has a history of tobacco, quit in 1992. Reports rare use of alcohol only. Lives with daughter Bhargavi in [place], and her other daughter is close. Uses a walker to ambulate. Hard to do recently, depending more on WC. In a lot of pain. Recent scans show progression of breast cancer. Exam Narrative Exam Narrative: She is resting fairly comfortably in the bed.. BMI is 47.6. I reviewed the CT scan of her pelvis. The scan shows extensive metastases to the right ilium. In addition there is a mild to moderate displaced fracture of the right iliac wing. I do not see an extension of the fracture into the hip joint or SI joint. Results Last Vital Signs Temp 36.7 C 11/16/19 07:40 Pulse 99 H 11/16/19 07:40 Resp 18 11/16/19 07:40 BP 142/54 H 11/16/19 07:40 Pulse Ox 95 11/16/19 07:40 Labs Result diagrams: 11/15/19 17:20 11/15/19 17:20 Labs: Laboratory Results - last 24 hr 11/15/19 11/15/19 11/15/19 17:20 17:20 17:20 WBC 5.99 RBC 3.30 L Hgb 8.8 L Hct 29.9 L MCV 90.6 MCH 26.7 L MCHC 29.4 L RDW 16.7 H Plt Count 187 MPV 9.4 Immature Gran % 0.3 Neutrophils % 74.3 Lymphocytes % 19.7 Monocytes % 4.0 Eosinophils % 1.5 Basophils % 0.2 Nucleated RBC % 0 Absolute Neutrophils 4.45 Absolute Lymphocytes 1.18 L Absolute Monocytes 0.24 Absolute Eosinophils 0.09 Absolute Basophils 0.01 PT 10.4 INR 1.0 APTT 26.3 Sodium 137 Potassium 4.4 Chloride 100 Carbon Dioxide 30.2 Anion Gap 6.8 BUN 15 Creatinine 1.15 H Estimated GFR/1.73 m2 48.13 Glucose 246 H Calcium 8.9 Total Bilirubin 0.4 AST 83 H ALT 30 Alkaline Phosphatase 193 H Total Protein 7.6 Albumin 3.0 L
--- NOTE | 2019-11-16 14:35 | CHAPLAIN ---
Candace was in bed when I visited. She is well known to staff because of frequent admissions. She told me right away things don't look good, and then recounted how she walked around her house yesterday, farther than usual, then went to [facility] in [place], [place], shopped and then when she got back into her van she her a pop sound in her hip. When she got home, and back in her house, she was in significant pain. Her daughter, Kiki, who takes care of her called the ambulance. In the ER it as discovered that Candace had a pathological hip fracture and that her cancer had spread everywhere, Candace said. After meeting with Dr. Royal, Consult[facility], Candace said they made a plan to discharge Candace home in a few days after they are sure that a new morphine pump will control her pain. When other staff members came into her room, she told them as well that this isn't good. Candace talked about looking forward to seeing her parents again, and her Jose, whom she cared for before he . She has told her granddaughters, Logan, 12 and ,10, and her grandson Arnaud, 5, to ask her questions directly about her health. Candace said she has things she wants to give her grandchildren and has things she wants to tell them, and she knows this is the time to do that. She said she knows that her daughters, Kiki and Nevaeh, will be able to care for her. They also have neighbors who are very willing to help, she said. Candace did not say she was going on hospice, but she seemed to believe that she won't recover from this. She said it was important to have Ann with her during the palliative care consultation with Dr. Royal. I will continue to visit.
[2019-11-16 14:46] LABS: COVID-19 RT-PCR UVMMC Result Negative (Negative)
[2019-11-16 15:30] VITALS: BP 94/58; PULSE 92; RESP 16; TEMP 38.5; O2SAT 66
[2019-11-16 15:32] VITALS: O2SAT 93
--- NOTE | 2019-11-16 15:42 | W.PALLCONSUL ---
Date of service: 11/16/19 Time of Service: 09:40 History of Present Illness History of Present Illness Chief Complaint: pathologic fx due to metastatic breast ca Narrative: Candace reports that she stood to get out of her van and heard a crack. She did not fall. She assumed the noise was due to her knee popping. She was able to walk the few steps into her home and then experienced excruciating pain. Her daughter, Kiki, who lives with her, said she'd never seen her mother in such pain. They called the ambulance which transported her to [facility]. In the ambulance, she reports she received ketamine and fentanyl. She is usually on fentanyl patches at home. She was still uncomfortable at the time I was seeing her, but not as bad as she had been. She reports that pain returns when she moves. She understands that this fracture represents progression of her metastatic breast cancer. While I was in her room, I called her oncologist, Dr Walden, on her daughter's phone. I relayed [address] Walden's nurse: 1. does he think Candace should be referred to hospice at this time and 2. could we use her port for pain medication. In the meantime, Candace agreed to trial subcutaneous hydromorphone to treat her pain, along with SC boluses. Consults Consult date: 11/16/19 Requesting physician: Luke Huynh Assessment and Plan Assessment and plan (1) Pelvic fracture: Status: Acute Assessment and plan: Will change from fentanyl patch to hydromorphone continuous with boluses available per port in order to deal with acute waves of pain in setting of chronic severe background pain. Explained that this is a sign of progression of her cancer. Qualifiers: Encounter type: initial encounter Pelvic bone location: ilium Fracture type: closed Fracture morphology: unspecified fracture morphology Fracture alignment: displaced Laterality: right Qualified Code(s): S32.301A - Unspecified fracture of right ilium, initial encounter for closed fracture (2) Stage IV breast cancer in female: Status: Chronic Assessment and plan: Did talk to Dr Yary Walden, her oncologist, about this fracture being another sign of her cancer's progression. He agrees but would still like Candace to have another month of her oral chemo. He did ok our using her port for her pain medication, to avoid having a SC pump. Once Dr Walden agrees, Candace is planning on going on hospice. (3) Acute pain due to trauma: Status: Acute Assessment and plan: changed from fentanyl patches to hydromorphone IV through her port with boluses available prn (4) Weakness: Status: Chronic Assessment and plan: cancer is making her weaker will be bedbound now, due to her fracture will continue with alex at home no real opportunity for her to get stronger at this point in her life (5) Encounter for hospice care discussion: Status: Acute Assessment and plan: I was very praveen with Candace and with Kiki, her daughter. Candace understands that likely she will enroll in hospice within the next month or so. [facility]. Review of Systems Constitutional Constitutional: Denies chills, Reports fatigue, Denies fever(s), Denies headache(s), Reports lethargy and Reports weakness Eyes Eyes: Reports requires corrective lenses ENT Ears, Nose, Mouth, and Throat: Reports dry mouth, Denies headache(s) and Reports disequilibrium Cardiovascular Cardiovascular: Denies chest pain, Denies dyspnea and Reports dyspnea on exertion Respiratory Respiratory: Denies cough, Denies dyspnea and Reports dyspnea on exertion Gastrointestinal Gastrointestinal: Reports constipation and Reports early satiety Genitourinary Genitourinary: Reports urinary incontinence Musculoskeletal Musculoskeletal: Reports abnormal gait (cannot walk due to pain), Denies back pain, Reports arthralgias, Reports muscle cramps, Reports muscle weakness and Reports radiating pain into limb (goes all the way to her right foot) Integumentary/Breasts Skin/Breast: Reports breast mass (in left axilla, easy to palpate, large masses (LN) x 2), Reports change in breast shape (s/p bilateral mastectomies) and Denies rash Neurologic Neurologic: Reports as per HPI, Reports abnormal gait (cannot walk due to pain), Denies headache(s), Reports radicular pain, Reports disequilibrium and Reports weakness Psychiatric Psychiatric: Reports change in appetite (didn't feel like eating anything prior to admission; no appetite ), Reports difficulty concentrating and Reports other (more accepting of terminal nature of her disease) Endocrine Endocrine: Reports fatigue Hematologic/Lymphatic Hematologic/Lymphatic: Reports easy bruising [facility] Medical History (Updated 11/17/19 @ 20:40 by Nevaeh Royal MD) Acute confusion due to infection Acute pain due to trauma Acute UTI Adenoma of pituitary benign; renoved surgically on steroids and synthroid to replete Bacteremia Citrobacter C. difficile diarrhea Cancer related pain improved with fentanyl patch Carpal tunnel syndrome Chronic adrenal insufficiency Chronic pain Chronic respiratory failure with hypoxia Chronic venous stasis dermatitis COPD (chronic obstructive pulmonary disease) On nocturnal oxygen - 2L prn Depression Diabetes mellitus Insulin dependent Discharge planning issues Diverticulosis DNI (do not intubate) DNR (do not resuscitate) Dyslipidemia E. coli bacteremia Encounter for hospice care discussion Fatigue Goals of care, counseling/discussion History of breast cancer metastatic, with lymphatic spread and bone mets Hyperlipidemia Hypopituitarism Hypothyroidism Influenza B Iron deficiency anemia Left lower lobe pneumonia Metastatic breast cancer Obstructive sleep apnea per [facility] records Palliative care patient Pneumonia POLST (Physician Orders for Life-Sustaining Treatment) done 03/26/19; DNR/DNI Positive blood cultures Pulmonary emboli Recurrent urinary tract infection Restless leg syndrome SOB (shortness of breath) Spinal stenosis Stage IV breast cancer in female Toxic metabolic encephalopathy Uncontrolled pain Unsteady gait Urinary incontinence UTI (urinary tract infection) Surgical History H/O bilateral mastectomy H/O colonoscopy with polypectomy H/O mastectomy bilateral History of carpal tunnel release of both wrists Port-A-Cath in place Status post transsphenoidal pituitary resection Family History Father , age 83 from complications of diabetes Prostate cancer Diabetes Mother , age 79 from complications of Crohn's disease and colitis Crohn's disease Colitis Daughter No problems noted. Daughter No problems noted. Brother Arthritis severe Obesity Sister Diabetes Obesity Sister No problems noted. Sister No problems noted. Social History Smoking/Tobacco Use Status: Former Tobacco Use Alcohol Intake: never Drug use: Never Substance use type: does not use Caregiver/Support person: Yes Household members: children Number of Children: 2 Communication Needs: Hard of Hearing and Corrective Lenses Education Level: middle school Do you need help understanding health information?: Always current occupation: on disability Pets and animals: Yes (4 cats, 3 dogs, 1 bird, 6 hermit crabs) Pets and animals: cat(s), dog(s), bird(s) and other Details: hermit crabs Current gender identity: female What is your relationship status?: How often do you talk on the phone with friends or family?: once per week How often do you get together with friends or relatives?: three or more times per week Panel score (0-1 are the most socially isolated patients): 1 What type of physical activity do you participate in: none, sedentary lifestyle, wheelchair-bound and additional Details: needs a new wheelchair, cannot walk far, just a few steps Special pedro pablo needs: No Seatbelt use: always Working smoke detector in home: Yes Fire extinguisher in home: Yes Firearms in home: No Do you feel safe at home: Yes Do you feel safe in your relationship?: Yes Additional Social history: , with 2 children. 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 She is not currently working and is on disability. Has a history of tobacco, quit in 1992. Reports rare use of alcohol only. Lives with daughter Bhargavi in [place], and her other daughter is close. Uses a walker to ambulate. Hard to do recently, depending more on WC. In a lot of pain. Recent scans show progression of breast cancer. Exam Const General: cooperative, comfortable, no acute distress, well developed, well groomed and ill appearing chronically Nutritional Appearance: well nourished and obese Orientation: alert and awake Eyes Conjunctivae: conjunctivae normal Sclera: sclerae normal Chest Chest: other (s/p bilateral mastectomies) Breast palpation: axillary lymphadenopathy (large, fixed, firm) left Resp Effort & Inspection: normal respiratory effort, able to speak in complete sentences and no respiratory distress Auscultation: clear to auscultation bilaterally Cardio Rate: regular rate Rhythm: regular rhythm Heart Sounds: S1 normal and S2 normal GI Inspection: normal to inspection and obesity Palpation: soft, no hepatosplenomegaly, not firm, no guarding and nontender Skin General skin exam: no rashes or lesions noted Lesions: no lesions Rashes: no rashes Trauma: no lacerations or abrasions Neuro General: patient alert and patient awake Cognition: normal cognition Speech: speech normal Gait: normal gait Motor: muscle tone normal throughout Sensory Exam: no sensory deficits noted Extrem Right lower extremity: normal to inspection (exam of right hip is limited secondary to body habitus), normal capillary refill, no joint enlargement, hip/thigh Details: normal to inspection and tenderness (groin); no swelling, ROM abnormal (normal rotation but pain with flexion), no ecchymosis, no crepitus, no deformity and no unusual warmth, knee Details: normal to inspection; no tenderness and foot (edematous (equal to contralateral side), distal pulses intact, good sensati); no edema Psych Appearance: grossly normal and well kempt Mental Status: mental status grossly normal Speech and Movement: speech and movement normal Results Last Vital Signs Temp 101.3 F H 11/16/19 15:30 Pulse 92 H 11/16/19 15:30 Resp 16 11/16/19 15:30 BP 94/58 L 11/16/19 15:30 Pulse Ox 93 11/16/19 15:32 Labs Result diagrams: 11/17/19 16:17 11/17/19 16:17 Labs: Laboratory Results - last 24 hr 11/15/19 11/15/19 11/15/19 17:20 17:20 17:20 WBC 5.99 RBC 3.30 L Hgb 8.8 L Hct 29.9 L MCV 90.6 MCH 26.7 L MCHC 29.4 L RDW 16.7 H Plt Count 187 MPV 9.4 Immature Gran % 0.3 Neutrophils % 74.3 Lymphocytes % 19.7 Monocytes % 4.0 Eosinophils % 1.5 Basophils % 0.2 Nucleated RBC % 0 Absolute Neutrophils 4.45 Absolute Lymphocytes 1.18 L Absolute Monocytes 0.24 Absolute Eosinophils 0.09 Absolute Basophils 0.01 PT 10.4 INR 1.0 APTT 26.3 Sodium 137 Potassium 4.4 Chloride 100 Carbon Dioxide 30.2 Anion Gap 6.8 BUN 15 Creatinine 1.15 H Estimated GFR/1.73 m2 48.13 Glucose 246 H Calcium 8.9 Total Bilirubin 0.4 AST 83 H ALT 30 Alkaline Phosphatase 193 H Total Protein 7.6 Albumin 3.0 L COVID-19 PCR Nasopharyn COVID-19 PCR Ref Test Perform Site 11/15/19 19:15 WBC RBC Hgb Hct MCV MCH MCHC RDW Plt Count MPV Immature Gran % Neutrophils % Lymphocytes % Monocytes % Eosinophils % Basophils % Nucleated RBC % Absolute Neutrophils Absolute Lymphocytes Absolute Monocytes Absolute Eosinophils Absolute Basophils PT INR APTT Sodium Potassium Chloride Carbon Dioxide Anion Gap BUN Creatinine Estimated GFR/1.73 m2 Glucose Calcium Total Bilirubin AST ALT Alkaline Phosphatase Total Protein Albumin COVID-19 PCR Negative Nasopharyn COVID-19 PCR Not Applicable Ref Test Perform Site [facility]
--- NOTE | 2019-11-16 16:08 | W.PM.PROGNOT ---
Date of Service Date of service: 11/16/19 Time of Service: 16:08 Assessment and Plan Assessment and plan (1) Pelvic fracture: Status: Acute Assessment and plan: New left ilium metastatic fracture. Nonoperable. Patient started on hydromorphone drip at 3 mg an hour. We had to hold this because of hypotension and delirium. I will restart her drip at a reduced dose of 1.5 mg an hour with a as needed order for 1 mg IV every 1/2 hour as needed pain Qualifiers: Encounter type: initial encounter Pelvic bone location: ilium Fracture type: closed Fracture morphology: unspecified fracture morphology Fracture alignment: displaced Laterality: right Qualified Code(s): S32.301A - Unspecified fracture of right ilium, initial encounter for closed fracture (2) Cancer related pain: Status: Chronic Assessment and plan: Pain control as above (3) Acute kidney injury superimposed on chronic kidney disease: Status: Acute Assessment and plan: Patient has acute renal insufficiency superimposed on chronic kidney disease. We will continue with IV fluid hydration and repeat her labs in the morning. (4) Diabetes mellitus: Status: Chronic Assessment and plan: Patient was placed on her usual dose of Humulin R with each meal along with moderate dose sliding scale for coverage. Qualifiers: Diabetes mellitus type: type 2 Diabetes mellitus shelter insulin use: with exterminator termite use Diabetes mellitus complication status: with kidney complications Diabetes mellitus complication detail: with chronic kidney disease Chronic kidney disease stage: stage 3 (moderate) Qualified Code(s): E11.22 - Type 2 diabetes mellitus with diabetic chronic kidney disease; N18.3 - Chronic kidney disease, stage 3 (moderate); Z79.4 - exterminator termite (current) use of insulin (5) History of breast cancer: Status: Chronic Assessment and plan: Patient has metastatic breast cancer with spinal and pelvic mets. Patient is indicated that she is still wants to follow chemotherapy with Dr. Waledn and Dr. Walden would like to give her another month of treatment. (6) History of pulmonary embolism: Status: Chronic Assessment and plan: Patient had been on Eliquis for remote PE however Dr. Jose discontinued her Eliquis. Given her acute hypoxemia this afternoon and hypotension I am going to rule her out for PE with a stat CT of her chest. If her CTA is positive for new PEs I will start her on Lovenox 1 mg/kg subcu q12h (7) Hypopituitarism: Status: Chronic Assessment and plan: Patient was placed on her usual dose hydrocortisone 20 mg daily and 5 mg in the afternoon. If her hypotension does not respond to the fluid bolus she may need stress dose hydrocortisone. (8) Hypothyroidism: Status: Chronic Assessment and plan: Patient remains on her levothyroxine 150 mcg daily. Her last TSH was low at 0.15 on August 23, 2019 while her free T4 was normal at 0.96. I will recheck her levels while she is here. Qualifiers: Hypothyroidism type: acquired Qualified Code(s): E03.9 - Hypothyroidism, unspecified (9) Adrenal insufficiency: Status: Chronic Assessment and plan: As above per hypopituitarism (10) Chronic venous stasis dermatitis: Status: Chronic Assessment and plan: We will asked wound care nurse to address treatment of her legs (11) Advance directive discussed with patient: Status: Acute Assessment and plan: Dr. Royal met with the patient and her daughter this morning the patient is a full DNR DNI but would like to continue current treatment. Subjective Subjective Interval history since last seen: See Dr. Robert Jose's note for admission details. This 59-year-old female with a history of metastatic breast cancer including bony mets presented with a pathologic fracture of her right iliac wing causing severe pain and inability to ambulate. Patient is now admitted for pain control. Patient is currently a DNR/DNI and Dr. Royal, from palliative medicine met with the patient and her daughter. They are leaning towards hospice care however they wanted input from her oncologist Dr. Walden. Patient has indicated to me that she still wants to continue chemotherapy. Dr. Royal has called back this afternoon and indicated that Dr. Walden still wants to give another month trial of chemotherapy. Present time we will try and obtain pain control and get her home on a CADD pump of hydromorphone. Patient previously been on Duragesic patches 125 mcg every 72 hours. She is requiring hydrocodone 15 mg every 3 hours to control her pain. Pharmacist calculated her equivalent dose of narcotics and put her on a CADD pump of hydromorphone at 3 mg an hour. I was called and evaluate the patient this afternoon for hypotension and hypoxemia and low blood pressure. Dr. Royal has since called back after talking with Dr. Walden. Dr. Walden wants to continue chemotherapy for another month. According to the patient she would like to continue treatment. In the interim were trying to achieve pain control from her metastatic fractures. Orthopedics was consulted last night and she is not a candidate for any surgical treatment of her ilium fracture. Patient was found to be mildly hypoxemic this afternoon and required supplemental oxygen. She had been saturated 98% on room air but had dropped down to 66% but corrected to 93% on 2 L nasal cannula. Patient denies any dyspnea or chest discomfort. Patient is rather lethargic which I think is overmedication from her hydromorphone pump. She was started on 3 mg an hour after being given a bolus of 2 mg IV. She probably still has some residual effects from her Dilaudid patches that were taken off last night. We will get a get a CT of her chest to rule out a PE. Exam Narrative Exam Narrative: Obese female who is somnolent but when awakened she is coherent but she is not able to carry on any prolonged conversation because she she drifts off to sleep in the mid sentence. She seems stuporous. Lungs are clear to auscultation Heart is regular rate and rhythm no appreciable murmur rub. Abdomen is obese soft and nontender. Lower extremities are obese she has chronic venous stasis skin changes over her legs with the lower right greco has a small shallow ulcer that measures about 2-1/2 cm in diameter no purulent drainage. No appreciable calf tenderness with palpation. Objective Last Vital Signs Temp 38.5 C H 11/16/19 15:30 Pulse 92 H 11/16/19 15:30 Resp 16 11/16/19 15:30 BP 94/58 L 11/16/19 15:30 Pulse Ox 93 11/16/19 15:32 Laboratory Results - last 24 hr 11/15/19 11/15/19 11/15/19 17:20 17:20 17:20 WBC 5.99 RBC 3.30 L Hgb 8.8 L Hct 29.9 L MCV 90.6 MCH 26.7 L MCHC 29.4 L RDW 16.7 H Plt Count 187 MPV 9.4 Immature Gran % 0.3 Neutrophils % 74.3 Lymphocytes % 19.7 Monocytes % 4.0 Eosinophils % 1.5 Basophils % 0.2 Nucleated RBC % 0 Absolute Neutrophils 4.45 Absolute Lymphocytes 1.18 L Absolute Monocytes 0.24 Absolute Eosinophils 0.09 Absolute Basophils 0.01 PT 10.4 INR 1.0 APTT 26.3 Sodium 137 Potassium 4.4 Chloride 100 Carbon Dioxide 30.2 Anion Gap 6.8 BUN 15 Creatinine 1.15 H Estimated GFR/1.73 m2 48.13 Glucose 246 H Calcium 8.9 Total Bilirubin 0.4 AST 83 H ALT 30 Alkaline Phosphatase 193 H Total Protein 7.6 Albumin 3.0 L COVID-19 PCR Nasopharyn COVID-19 PCR Ref Test Perform Site 11/15/19 19:15 WBC RBC Hgb Hct MCV MCH MCHC RDW Plt Count MPV Immature Gran % Neutrophils % Lymphocytes % Monocytes % Eosinophils % Basophils % Nucleated RBC % Absolute Neutrophils Absolute Lymphocytes Absolute Monocytes Absolute Eosinophils Absolute Basophils PT INR APTT Sodium Potassium Chloride Carbon Dioxide Anion Gap BUN Creatinine Estimated GFR/1.73 m2 Glucose Calcium Total Bilirubin AST ALT Alkaline Phosphatase Total Protein Albumin COVID-19 PCR Negative Nasopharyn COVID-19 PCR Not Applicable Ref Test Perform Site [facility] lab
--- NOTE | 2019-11-16 16:17 | PHACLINREV_ITS ---
Pharmacy Admission Review - Admission Clinical Review (Last Reviewed 11/15/19 @ 18:34 by Robert Jose MD) Pelvic fracture (Acute) bee venom protein (honey bee) Allergy (Unknown, Unverified 10/20/19 20:21) Latex, Natural Rubber Adverse Reaction (Intermediate, Unverified 10/20/19 20:21) adhesive tape Adverse Reaction (Mild, Unverified 10/20/19 20:21) Height 5 ft 9 in Weight 146.057 kg - Renal Dosing Renal Dosing: BUN 15 mg/dL (7-18) 11/15/19 17:20 Creatinine 1.15 mg/dL (0.55-1.02) H 11/15/19 17:20 Medications needing adjustments: Reviewed (Crcl ~80.6 mL/min using adjusted body weight and yesterdays SCr (todays still pending), current meds okay) - Anticoagulation Anticoagulation: Hgb 8.8 g/dL (11.2-15.7) L 11/15/19 17:20 Hct 29.9 % (36.0-46.0) L 11/15/19 17:20 Plt Count 187 10^3/uL (130-400) 11/15/19 17:20 INR 1.0 (0.9-1.1) 11/15/19 17:20 Creatinine 1.15 mg/dL (0.55-1.02) H 11/15/19 17:20 DVT Prohphylaxis: Reviewed (Nothing mentioned in H&P, no indications for surgery for this fracture per ortho consult. Will ask provider.) - Opiate Usage Evaluate Pain Scale/Pains Meds: Reviewed Scheduled Bowel Reg ordered if on Opiates?: No (will mention to provider) - Relevant Labs Sodium 137 mmol/L (136-145) 11/15/19 17:20 Potassium 4.4 mmol/L (3.5-5.1) 11/15/19 17:20 Chloride 100 mmol/L (98-107) 11/15/19 17:20 Electrolytes, C-Reactive P, ESR: Reviewed - DM Control DM Control: Glucose 246 mg/dL (74-106) H 11/15/19 17:20 Finger Stick Blood Glucose 232 Finger Stick Blood Glucose 232 Insulin Dosing: Reviewed (Currently has insulin regular ordered at doses a bit lower than pt is on at home. Also has sliding scale aspart ordered.) - Heart Failure/PA EF%, MCKENNA's, B-Blockers, Diuretics: N/A - BP Control BP Control: Blood Pressure 94/58 Blood Pressure 142/54 If elevated: Reviewed (Has been up and down some this admission. HR-92) - Qtc Review If Elevated: N/A (QTc 437) - IV to PO Switch IV Medications: Reviewed - Home Meds Home Med List reviewed: Reviewed (multiple anticholinergic meds, recommended to avoid concurrent use. Multiple [employer] depressants, recommended to avoid concomitant use when possible. Multiple meds that may enhance hypoglycemia, consider dosing adjusments/monitor closely. Separate admin of levothyroxine and ferrous sulfate.) Relevent Home Meds Not ordered & why?: cranberry, denosumab, ferrous sulfate, naloxone, fentanyl and hydrocodone/APAP (hydromorphone CADD started) - Current meds Current Medication Order Review: Intervened (fidaxomycin ordered prophylactically while pt was on abxs, continued on discharge (low dose prophylactic vanco usually given for 5 days after abx stopped), has been a week since pts last abx dose so I talked to MD about discontinuing this. Adjusted insulin regular times to AC.) - Comments Comments/Follow Ups: Watch BP, HR, BG, SCr, H/H, and for med changes (need of BM meds, possible insulin adjustments). Hydromorphone CADD started today, dosing based off pts home fentanyl dosing (did not include the additional pain meds pts was getting while admitted). Nursing was initially concerned it may not be enough to cover pts pain. Pt was too sedated on it per MD, so he stopped/held the CADD and plans to restart at half the dose. Watch for additional dose adjustments.
[2019-11-16] MEDS: Normal Saline 500 ML 1000 ML IV (16:28)
[2019-11-16 16:45] LABS: Lactate 1.2 mmol/L (0.6-1.4)
[2019-11-16 16:49] VITALS: TEMP 38.5
[2019-11-16 16:49] LABS: Abs Immature Grans 0.03 10^3/uL (0.0-0.06); Absolute Basophil Count 0.01 10^3/uL (0.0-0.2); Absolute Eosinophil Count 0.13 10^3/uL (0.0-0.7); Absolute Lymphocyte Count 1.39 10^3/uL (1.2-3.4); Absolute Monocyte Count 0.54 10^3/uL (0.1-0.8); Absolute Neutrophil Count 6.44 10^3/uL (1.2-6.7); Basophils % 0.1; Eosinophils % 1.5; HGB 8.1 g/dL (11.2-15.7); Immature Grans % 0.4; Lymphocytes % 16.3; MCH 27.1 pg (27.0-33.0); MCV 90.3 fL (80-95); Monocytes % 6.3; Neutrophils % 75.4; Nucleated RBC 0 %; Platelet Count 218 10^3/uL (130-400); RBC 2.99 10^6/uL (3.93-5.22); RDW 17.5 % (11.7-14.6); WBC 8.54 10^3/uL (4.4-10.8)
[2019-11-16] MEDS: Acetaminophen 325 MG TAB PO (16:49)
[2019-11-16] MEDS: Hydrocortisone 10 MG TAB 5 MG PO (16:50)
[2019-11-16 16:59] LABS: ALT 28 U/L (14-59); AST 76 U/L (15-37); Albumin 2.9 g/dL (3.4-5.0); Alkaline Phosphatase 199 U/L (46-116); Anion Gap 4.9 mmol/L (3-11); BUN 20 mg/dL (7-18); Bilirubin, Total 0.4 mg/dL (0.2-1.0); CO2 30.1 mmol/L (21.0-32.0); CREATININE 1.49 mg/dL (0.55-1.02); Calcium 8.5 mg/dL (8.5-10.1); Chloride 101 mmol/L (98-107); Glucose 133 mg/dL (74-106); Potassium 4.3 mmol/L (3.5-5.1); Sodium 136 mmol/L (136-145); Total Protein 7.3 g/dL (6.4-8.2)
[2019-11-16 17:22] LABS: Procalcitonin 0.6 ng/mL
[2019-11-16] MEDS: Omnipaque 350 MG/ML 50 ML BTL IV (17:34)
--- NOTE | 2019-11-16 17:36 | DI.CT_ITS ---
EXAM: CT CHEST PE CTA CLINICAL HISTORY: dyspnea, hypoxemia, hypotension; r/o PE TECHNIQUE: COMPARISON: CT CT CHEST/ABD/PEL WO from 03/23/2019 FINDINGS: CT angiography of the chest was performed with intravenous infusion 100 cc of Omnipaque 350. Images obtained through the upper abdomen show unremarkable appearance of visualized portions of live r, spleen, and adrenals. There is significant motion artifact which limits evaluation of lobar, segmental, and smaller pulmona ry arteries. No central pulmonary embolus identified. No thoracic aortic dissection or aneurysm. There are enlarged lymph nodes in the pretracheal region, measuring up to 3.[address] ter. There is of previously noted left breast or axillary mass measuring about 5 cm in greatest diam eter, no change from March 2019. There is cardiomegaly and trace pleural effusions. There is mosaic attenuation of the lungs and ques tion of slight pulmonary edema. No gross focal consolidation seen. Tracheobronchial tree appears in tact IMPRESSION: No evidence of central pulmonary embolus on this limited study. Findings suspicious for neoplastic disease with the left axillary mass and pretracheal adenopathy, th e pretracheal adenopathy is more prominent than on prior examination of 03/23/2019. Cardiomegaly with question mild CHF. RADIATION DOSE DELIVERED: 721.15mGy.cm Total DLP
[2019-11-16] MEDS: Omnipaque 350 MG/ML 50 ML BTL IJ (17:42)
[2019-11-16] MEDS: Normal Saline - Diluent 50 ML VIAL IV ×2 (17:43→18:21)
[2019-11-16 18:16] VITALS: BP 124/70; PULSE 93; RESP 17; TEMP 37.8; O2SAT 93
[2019-11-16] MEDS: Omnipaque 350 MG/ML 100 ML BTL IJ (18:20)
[2019-11-16] MEDS: Enoxaparin 40 MG/0.4 ML SYR SC (18:22)
[2019-11-16] MEDS: Normal Saline 1,000 ML 100 ML IV ×2 (18:25→22:44)
[2019-11-16] MEDS: Enoxaparin 100 MG/ML SYR SC (18:50)
--- NOTE | 2019-11-16 19:13 | DI.VRAD_ITS ---
PROCEDURE INFORMATION: Exam: CT Angiography Chest With Contrast Exam date and time: 11/16/2019 5:56 PM Age: 59 years old Clinical indication: Other: Dyspnea, hypoxemia, hypotension; R/O pe TECHNIQUE: Imaging protocol: Computed tomographic angiography of the chest with intravenous contrast. 3D rendering (Not supervised by radiologist): MIP and/or 3D reconstructed images were created by the technologist. Radiation optimization: All CT scans at this facility use at least one of these dose optimization techniques: automated exposure control; mA and/or kV adjustment per patient size (includes targeted exams where dose is matched to clinical indication); or iterative reconstruction. Contrast material: OMNIPAQUE 350; Contrast volume: 100 ml; Contrast route: INTRAVENOUS (IV); COMPARISON: CT CHEST PE CTA 06/29/2019 2:48 PM FINDINGS: No evidence of pulmonary embolism. Normal thoracic aorta without aneurysm or dissection. There is cardiomegaly. There are patchy ground-glass opacities in the mid and upper lungs bilaterally. There is bibasilar dependent atelectasis. No pleural effusion or pneumothorax. The visualized abdominal structures are unremarkable. A right-sided MediPort is present. There is soft tissue swelling and subcutaneous gas around the catheter in the right chest wall. No acute fracture. IMPRESSION: 1. No evidence of pulmonary embolism. 2. Possible mild pulmonary edema. 3. Soft tissue swelling and subcutaneous gas around the MediPort in the right chest wall. Correlate clinically. Dictated and Authenticated by: Benjy Westfall MD. Ordering:[facility] Amina Butler MD
[2019-11-16] MEDS: Hydrocortisone SOD SUC. 100 MG VIAL IVP (20:27)
[2019-11-16] MEDS: Insulin NPH-Human 300 UNITS/3 ML PEN 25 UNIT SC (20:28)
[2019-11-16] MEDS: Atorvastatin 40 MG TAB PO (21:51)
[2019-11-16 22:29] LABS: Bilirubin Negative (Negative); Blood Negative (Negative); Clarity Clear (Clear); Glucose Negative (Negative); Ketones Negative (Negative); Leukocyte Esterase Trace (Negative); Nitrite Negative (Negative); Urobilinogen 0.2 EU/dL (Up TO 0.2); pH 5.5 (5-8)
[2019-11-16 22:35] LABS: C & S Indicated? C&S Done As Ordered
[2019-11-16 22:43] LABS: Epithelial Cells Negative HPF (Negative); WBC 20-50 HPF (0-5)
[2019-11-16 22:44] LABS: Bacteria Few HPF (Negative); Casts Negative LPF (Negative); Crystals Negative HPF (Negative); Mucus Negative (Negative); Other Cells Few Transitional (Negative)
[2019-11-17] MEDS: Hydrocortisone SOD SUC. 100 MG VIAL 50 MG IVP ×4 (01:58→20:59)
[2019-11-17] MEDS: Insulin NPH-Human 300 UNITS/3 ML PEN 25 UNIT SC ×3 (04:08→21:00)
[2019-11-17 04:12] VITALS: BP 127/68; PULSE 91; RESP 17; TEMP 37.2; O2SAT 93
[2019-11-17] MEDS: Levothyroxine 150 MCG TAB PO (05:11)
[2019-11-17] MEDS: Normal Saline Flush 10 ML SYR IVP ×3 (06:33→13:34)
[2019-11-17] MEDS: Budesonide/Formoterol 160/4.5 6 GM 60 PUFF INH IH ×2 (07:29→21:01)
[2019-11-17] MEDS: Tiotropium Bromide-Respimat 10 PUFF INH IH (07:29)
[2019-11-17 07:33] VITALS: BP 115/68; PULSE 100; RESP 17; TEMP 36.8; O2SAT 94
[2019-11-17 07:52] LABS: TSH (W/Ref FT4) 0.02 uIU/mL (0.36-3.74)
[2019-11-17] MEDS: Lactobacillus Acidophilus CAP 1 CAP PO ×2 (08:09→20:58)
[2019-11-17] MEDS: Cyanocobalamin 500 MCG TAB 1000 MCG PO (08:09)
[2019-11-17] MEDS: Omeprazole 20 MG CAPCR 40 MG PO (08:09)
[2019-11-17] MEDS: Folic Acid 1 MG TAB PO (08:09)
[2019-11-17 08:10] LABS: FREE T4 1.45 ng/dL (0.76-1.46)
[2019-11-17] MEDS: Pregabalin 100 MG CAP 200 MG PO ×3 (08:10→20:58)
[2019-11-17] MEDS: Montelukast 10 MG TAB PO (08:10)
[2019-11-17] MEDS: Ferrous Sulfate 325 MG TAB PO (08:10)
[2019-11-17] MEDS: Tolterodine 2 MG CAPCR 4 MG PO (08:10)
[2019-11-17] MEDS: Insulin Aspart 300 UNITS/3 ML PEN SC ×3 (08:11→17:14)
--- NOTE | 2019-11-17 08:40 | W.PALPGNOTE ---
Date of service: 11/17/19 Assessment and Plan Assessment and plan (1) Encounter for hospice care discussion: Status: Acute Assessment and plan: Continued conversation from yesterday. Explained that I had spoken to Dr Walden, her oncologist, who wants to try another 3-4 weeks of her oral cancer treatment. He acknowledged that her pelvic fracture is yet another sign of her cancer's progression. She is open to another month of treatment. Once Dr Walden gives ok for hospice, she will enroll. She is more and more aware of her terminal diagnosis. (2) Acute pain due to trauma: Status: Acute Assessment and plan: Much improved with hydromorphone pump through her port. At correct dosing today; able to speak and understand situation fully while being more comfortable. Still slightly uncomfortable when moving in her bed. (3) Pelvic fracture: Status: Acute Assessment and plan: Will take a while to heal--if ever--due to her bone mets. Likely will be bedbound the rest of her life. Dr Walden is willing to do home visits, as her cancer treatment is not IV. Qualifiers: Encounter type: initial encounter Pelvic bone location: ilium Fracture type: closed Fracture morphology: unspecified fracture morphology Fracture alignment: displaced Laterality: right Qualified Code(s): S32.301A - Unspecified fracture of right ilium, initial encounter for closed fracture (4) Discharge planning issues: Status: Acute Assessment and plan: She would like to go home sooner rather than later. Daughter not ready. She did not share this with me, so I could not explore reasons with her. I think some of her not being ready is a metaphor for not being ready for her mother's final weeks/months. Needs to be explored further with Kiki. (5) Physical deconditioning: Status: Chronic Assessment and plan: At this point in time, unlikely that Candace will be able to regain her strength in any significant way. Subjective Subjective Patient reports: feels better, pain is less and shortness of breath (chronically, but not bad) Interval history since last seen: Has alex in place. Not getting OOB due to her pathological fracture. Had an episode of over-sedation yesterday afternoon. Dr Huynh turned down her continuous dose. He would like her to go home tomorrow if her pain control remains stable. I relayed this information to her daughter Kiki who later called Care Management to report she wasn't ready for her mother to come home until the weekend. I defer to hospitalist. Exam Const General: cooperative, comfortable, no acute distress, well developed, well groomed and ill appearing chronically Nutritional Appearance: well nourished and obese Orientation: alert and awake Eyes Conjunctivae: conjunctivae normal Sclera: sclerae normal Chest Chest: other (s/p bilateral mastectomies) Breast palpation: axillary lymphadenopathy (large, fixed, firm) Resp Effort & Inspection: normal respiratory effort, able to speak in complete sentences and no respiratory distress Auscultation: clear to auscultation bilaterally Cardio Rate: regular rate Rhythm: regular rhythm Heart Sounds: S1 normal and S2 normal GI Inspection: normal to inspection and obesity Palpation: soft, no hepatosplenomegaly, not firm, no guarding and nontender Back/Spine/Pelvis Pelvis: other (visible pain with movement in her bed) Skin General skin exam: no rashes or lesions noted Lesions: no lesions Rashes: no rashes Trauma: no lacerations or abrasions Neuro General: patient alert, patient awake and patient oriented x3 Cognition: normal cognition Speech: speech normal Sensory Exam: no sensory deficits noted Extrem Right lower extremity: normal to inspection (exam of right hip is limited secondary to body habitus), normal capillary refill, no joint enlargement, hip/thigh Details: normal to inspection and tenderness (groin); no swelling, ROM abnormal (normal rotation but pain with flexion), no ecchymosis, no crepitus, no deformity and no unusual warmth, knee Details: normal to inspection; no tenderness and foot (edematous (equal to contralateral side), distal pulses intact, good sensati); no edema Psych Appearance: grossly normal and well kempt Mental Status: mental status grossly normal Speech and Movement: speech and movement normal Objective Last Vital Signs Temp 98.2 F 11/17/19 07:33 Pulse 100 H 11/17/19 07:33 Resp 17 11/17/19 07:33 BP 115/68 11/17/19 07:33 Pulse Ox 94 11/17/19 07:33 Laboratory Results - last 24 hr 11/15/19 11/16/19 11/16/19 19:15 16:22 16:22 WBC 8.54 D RBC 2.99 L Hgb 8.1 L Hct 27.0 L MCV 90.3 MCH 27.1 MCHC 30.0 L RDW 17.5 H Plt Count 218 MPV 9.0 Immature Gran % 0.4 Neutrophils % 75.4 Lymphocytes % 16.3 Monocytes % 6.3 Eosinophils % 1.5 Basophils % 0.1 Nucleated RBC % 0 Absolute Neutrophils 6.44 Absolute Lymphocytes 1.39 Absolute Monocytes 0.54 Absolute Eosinophils 0.13 Absolute Basophils 0.01 VBG Lactate 1.2 Sodium Potassium Chloride Carbon Dioxide Anion Gap BUN Creatinine Estimated GFR/1.73 m2 Glucose Calcium Total Bilirubin AST ALT Alkaline Phosphatase Total Protein Albumin Procalcitonin 0.6 TSH Free T4 Urine Color Urine Clarity Urine pH Ur Specific [place] Urine Protein Urine Ketones Urine Blood Urine Nitrite Urine Bilirubin Urine Urobilinogen Ur Leukocyte Esterase Urine RBC Urine WBC Ur Epithelial Cells Urine Crystals Urine Bacteria Urine Casts Urine Mucus Urine Other Ur Culture Indicated? Urine Glucose COVID-19 PCR Negative Nasopharyn COVID-19 PCR Not Applicable Ref Test Perform Site [facility] 11/16/19 11/16/19 11/17/19 16:32 20:30 06:40 WBC RBC Hgb Hct MCV MCH MCHC RDW Plt Count MPV Immature Gran % Neutrophils % Lymphocytes % Monocytes % Eosinophils % Basophils % Nucleated RBC % Absolute Neutrophils Absolute Lymphocytes Absolute Monocytes Absolute Eosinophils Absolute Basophils VBG Lactate Sodium 136 Potassium 4.3 Chloride 101 Carbon Dioxide 30.1 Anion Gap 4.9 BUN 20 H Creatinine 1.49 H Estimated GFR/1.73 m2 35.70 Glucose 133 H D Calcium 8.5 Total Bilirubin 0.4 AST 76 H ALT 28 Alkaline Phosphatase 199 H Total Protein 7.3 Albumin 2.9 L Procalcitonin TSH 0.02 L Free T4 1.45 Urine Color Yellow Urine Clarity Clear Urine pH 5.5 Ur Specific [place] 1.010 Urine Protein 30 H Urine Ketones Negative Urine Blood Negative Urine Nitrite Negative Urine Bilirubin Negative Urine Urobilinogen 0.2 Ur Leukocyte Esterase Trace H Urine RBC 3-5 H Urine WBC 20-50 H Ur Epithelial Cells Negative Urine Crystals Negative Urine Bacteria Few Urine Casts Negative Urine Mucus Negative Urine Other Few transitional Ur Culture Indicated? C&s done as ordered Urine Glucose Negative COVID-19 PCR Nasopharyn COVID-19 PCR Ref Test Perform Site
[2019-11-17] MEDS: Normal Saline 1,000 ML 100 ML IV (09:04)
--- NOTE | 2019-11-17 09:04 | CMPROGNOTE_ITS ---
- If Service Date Differs Date of service: 11/17/19 Time of Service: 09:04 Care Management Progress Note S/O:Candace was sitting up in bed when CM met with her. She was much more awake and shared that her pain is well controlled on the Dilaudid drip at the current rate of 1.5 mg/hr. She is looking forward to going home but understands that a safe discharge plan must be in place. She will need a hospital bed and a sling for the behzad lift she has at home. The bed has been ordered by CM through [facility] and CM is awaiting information re: the lift sling. Candace will also need to have Infusion services at home for the Hydromorphone drip she is on. A referral has been sent to [facility] by [employer]. A: Candace is a 59 year old woman admitted on 11/15/19 P:Candace will be discharged home with a resumption of home health nursing. She will have a pain pump to deliver hydromorphone and will have the ability to bolus if needed for breakthrough pain. [facility] has sent a referral to [facility] for this service. Candace will also need a hospital bed which has been ordered through [employer]. She will follow up with her PCP and Oncologist and transport via ambulance as she is unable to walk or sit up at this time. CM will continue to support patient, family and discharge planning needs.
--- NOTE | 2019-11-17 11:10 | PT.INIE ---
Date of service: 11/17/19 Time of Service: 11:10 PT Notes Visit Reasons: PELVIC FRACTURE Physical Therapy Inpatient Initial Evaluation Dates: 11/17/2019 Referring Doctor: Low Jose MD PT Orders: PT CONSULT: Eval/Treat Precautions: Fall. Standard. Activity as tolerated. Patient Profile/Admitting Diagnosis: Candace is a 59-year-old female with chronic adrenal insufficiency and matastatic breast carcinoma who presented to the ED on 11/15/2019 with chief complaint of right hip pain after hearing a pop in her right hip during a wheelchair to car transfer. X-rays revealed mild to moderately displaced pathological right iliac wing fracture, complicated UTI, and acute kidney injury. PMHX: Medical History Acute confusion due to infection (Resolved) Acute UTI (Resolved) Adenoma of pituitary (Chronic) benign; renoved surgically on steroids and synthroid to replete Bacteremia (Resolved) Citrobacter C. difficile diarrhea (Acute) Cancer related pain (Chronic) improved with fentanyl patch Carpal tunnel syndrome (Acute) Chronic adrenal insufficiency (Acute) Chronic pain (Chronic) Chronic respiratory failure with hypoxia (Chronic) Chronic venous stasis dermatitis (Chronic) COPD (chronic obstructive pulmonary disease) (Chronic) On nocturnal oxygen - 2L prn Depression (Chronic) Diabetes mellitus (Chronic) Insulin dependent Discharge planning issues (Resolved) Diverticulosis (Acute) DNI (do not intubate) (Acute) DNR (do not resuscitate) (Acute) Dyslipidemia (Chronic) E. coli bacteremia (Resolved) Fatigue (Acute) Goals of care, counseling/discussion (Acute) History of breast cancer (Chronic) metastatic, with lymphatic spread and bone mets Hyperlipidemia (Acute) Hypopituitarism (Chronic) Hypothyroidism (Chronic) Influenza B (Acute) Iron deficiency anemia (Acute) Left lower lobe pneumonia (Resolved) Metastatic breast cancer (Chronic) Obesity (Chronic) Obstructive sleep apnea (Chronic) per [facility] records Palliative care patient (Chronic) Pneumonia (Acute) POLST (Physician Orders for Life-Sustaining Treatment) (Acute) done 03/26/19; DNR/DNI Positive blood cultures (Ruled-out) Pulmonary emboli (Inactive) Recurrent urinary tract infection (Acute) Restless leg syndrome (Acute) SOB (shortness of breath) (Resolved) Spinal stenosis (Acute) Stage IV breast cancer in female (Chronic) Toxic metabolic encephalopathy (Resolved) Uncontrolled pain (Resolved) Unsteady gait (Chronic) Urinary incontinence (Acute) UTI (urinary tract infection) (Resolved) Surgical History H/O bilateral mastectomy (Acute) H/O colonoscopy with polypectomy (Acute) H/O mastectomy (Chronic) bilateral History of carpal tunnel release of both wrists (Acute) Port-A-Cath in place (Acute) Status post transsphenoidal pituitary resection (Acute) Social History/Home Situation: Candace lives with her daughter Kiki in [place], [place] in a two-story house with a ramp to enter with rails on both sides. Patient has stairs to the second floor of the house but has everything she needs on the first floor. She is disabled. She has 2 daughters locally. She receives choices for care highest needs, and her daughter Kiki is her primary provider for 12 years now. Kiki provides assistance with bathing and does meal preapration and assistance with lower body dressing. She was independent with front-wheeled walker for in-house ambulation and uses the 4-wheeled walker for outdoor ambulation. She has to walk about 80-90 feet to get to her car. She is dependent on her daughter for transportation to and from appointments. Daughter also provides assistance with bathing patient's back due to body habitus. Equipment Owned/DME: Bariatric FWW, bariatric hospital bed, bariatric recliner, bariatric front wheeled walker, new bariatric wheelchair with seat and back cushions Subjective: Candace is very reluctant about trying to sit up and stand up as she states that she is afraid of how much pain she will have and unsure of whether her R hip can handle her weight. She is agreeable to trying to go slow with mobilization and consented to doing edge of bed activities tomorrow instead. She only was amenable to doing bed level exercises for this session. Objective: General Observation: Telemetry monitoring in place. Hemosiderin staining observed in bilateral distal legs from CVI. Abdominal panniculus. Mental Status: Alert and oriented x 4 Pain: 7-8/10 in right hip with movement ROM: Right Upper Extremity: Shoulder flexion WFL. Elbow flexion WFL. Hands/wrist and fingers are WFL. Left Upper Extremity: Shoulder flexion WFL. Elbow flexion WFL. Hands/wrist and fingers are WFL. Right Lower Extremity: Patient is able to bend hip to about 10-20 degrees in supine. Knee flexion WFL. Dorsiflexion/plantarflexion WFL. Left Lower Extremity: Patient is able to bend hip to about 10-20 degrees in supine. Knee flexion WFL. Dorsiflexion/plantarflexion WFL. Strength: Right Upper Extremity: Shoulder flexion 4/5. Elbow flexion 4/5. Electrical Instrument Technician strong and functional Left Upper Extremity: Shoulder flexion 4/5. Elbow flexion 4/5. Electrical Instrument Technician strong and functional. Right Lower Extremity: Hip flexion 3-/5. Knee flexion 4/-5. Knee extension 4-/5. Ankle dorsiflexion/plantarflexion 3+/5. Left Lower Extremity: Hip flexion 3-/5. Knee flexion 4-/5. Knee extension 4-/5. Ankle dorsiflexion/plantarflexion 4-/5. Bed Mobility/Transfers: Supine to sit NT Sit to supine NT Stand to sit NT Bed to chair NT Chair to bed NT Gait: NT Balance: Static Sitting: NT Dynamic Sitting: NT Static Standing: NT Dynamic Standing: NT Special Tests: Mobility Limitations Standardized Measure [facility] AM-PAC 6 clicks Basic Mobility Inpatient Short Form: Raw Score: 7 CMS Score: 92% functional mobility deficit Informed Consent/Education: Patient instructed in purpose of PT consult and plan of care. Session today consisted of education and training on upper remedy strengthening exercises and lower extremity isometric exercises. Assessment: Candace's most recent pathologic fracture has made her very reluctant with moving out of bed at all. She feels that her right hip is not going to be strong enough to take her weight. She feels that even moving in bed while in supine. She demonstrates significant mobility decline and very much reduced self-confidence to do any big movements at this time due to her recent fracture. With these she [facility] for developing skin breakdown and further decline. Candace is a 59-year-old female with chronic adrenal insufficiency and matastatic breast carcinoma who presented to the ED on 11/15/2019 with chief complaint of right hip pain after hearing a pop in her right hip during a wheelchair to car transfer. X-rays revealed mild to moderately displaced pathological right iliac wing fracture, complicated UTI, and acute kidney injury. Patient presents with clinical signs and symptoms consistent with current/admitting diagnoses that have resulted to mobility limitations, gait instability, generalized weakness, and impairment of motor control as demonstrated by the following impairment level findings: 1. Decreased strength to both hip major muscle groups 2. Impaired sitting/standing balance 3. Impaired activity tolerance 4. Limitation of joint range of motion in B hips 5. fearful of falling and weight-bearing Impairments are contributing to the following functional limitations: 1. Dependent bed mobility skills 2. Increased dependence with transfers 3. Inability to ambulate due to recent fracture and decreased self-confidence 5. Increased rsik for skin breakdown Patient is assessed as a 13874 moderate complexity based on the following: History: 59-year-old female with impairment level findings, functional limitations, and past medical history as indicated above Examination: Demonstrable impairment in strength, balance, and mobility level with underlying impairments and functional limitations as documented above Presentation:Evolving Decision Makin moderate complexity Goals: Goals X 1 week 1. Supine-Sit contact-guard assist 2. Sit-Supine contact-guard assist 3. Sit-Stand contact-guard assist 4. Stand-Sit contact-guard assist 5. Bed-Chair contact-guard assist 6. Chair-Bed contact-guard assist 7. Contact-guard assist indoor ambulation using FWW for at least 15 feet without dyspnea and 2/10 pain in R hip 9. Static/dynamic standing balance/tolerance good Plan of Care/Treatment Plan: 1/day, 7 days/week x 1 week. Plan of care has been reviewed with the [employer] providing the service under Physical Therapy direction. Initiate Physical Therapy intervention for strengthening, bed mobility, transfers, gait, balance training, use of assistive device. DISCHARGE RECOMMENDATIONS: Patient will benefit from continued home health PT services in order to progress mobility level using four-wheeled walker, assess home safety, identify additional equipment needs, and cotninue with a functional maintenance program that will increase ability of patient to remain at home with daughter. No equipment needs at this time. TREATMENT CODE/TIME: [id number] x 20 minutes beginning at 11:10 AM. Thank you very much for this referral. Allie Miguel PT, DPT, CLT [facility] Inpatient PT at [place], [place]
--- NOTE | 2019-11-17 12:29 | PGE_ITS ---
Date of Service Date of service: 11/17/19 Time of Service: 12:29 Assessment and Plan Assessment and plan (1) Pelvic fracture: Status: Acute Assessment and plan: New left ilium metastatic fracture. Nonoperable. Patient was oversedated on the hydromorphone drip at 3 mg/h. I cut the dose down to 1.5 mg/h with a as needed dose of 1 mg IV every hour as needed for breakthrough pain. This seems to be holding her and keeping her pain and check without overly sedating her. Qualifiers: Encounter type: initial encounter Pelvic bone location: ilium Fracture type: closed Fracture morphology: unspecified fracture morphology Fracture alignment: displaced Laterality: right Qualified Code(s): S32.301A - Unspecified fracture of right ilium, initial encounter for closed fracture (2) Cancer related pain: Status: Chronic Assessment and plan: Pain control as above (3) Complicated UTI (urinary tract infection): Status: Acute Assessment and plan: Patient had low-grade fever yesterday of 38.5. Urine and blood cultures were obtained. Blood cultures have been no growth so far. Urine is growing less than 10,000 colonies of gram-negative rods. I will treat her with a one-time dose of fosfomycin 3 g p.o. and recheck her urine. For now I think she needs to have the Mendoza catheter kept in because she has difficulty completely emptying her bladder. (4) Acute kidney injury superimposed on chronic kidney disease: Status: Acute Assessment and plan: Patient has acute renal insufficiency superimposed on chronic kidney disease. We will continue with IV fluid hydration repeat labs did not get ordered for this morning. I have added them as routine for this afternoon. I have also ordered daily labs for tomorrow. She seems to making good urine output has a Mendoza catheter in place. (5) Diabetes mellitus: Status: Chronic Assessment and plan: Patient was placed on her usual dose of Humulin R with each meal along with moderate dose sliding scale for coverage. Add NPH coverage while she is on the high-dose hydrocortisone. 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 Patient is indicated that she is still wants to follow chemotherapy with Dr. Walden and Dr. Walden would like to give her another month of treatment. (7) History of pulmonary embolism: Status: Chronic Assessment and plan: CTA of the chest yesterday showed no pulmonary embolus but showed some groundglass opacities. Clinically she has no cough or sputum production. And when out this may be some chronic changes from previous radiation treatment for her breast cancer. I am and keep her on Lovenox 1 mg/kg subcutaneously every 12 hours because of her prior history of PE in June 2019 as well as her increased risk for future PE and DVT due to her morbid obesity decreased ambulatory status and metastatic breast cancer. (8) Hypopituitarism: Status: Chronic Assessment and plan: Patient was placed on stress dose hydrocortisone yesterday. I will treat her for 3 days and then taper her back to her usual dose of hydrocortisone. (9) Hypothyroidism: Status: Chronic Assessment and plan: Patient remains on her levothyroxine 150 mcg daily. Her last TSH was low at 0.15 on August 23, 2019 while her free T4 was normal at 0.96. TSH is suppressed at 0.02 but her free T4 is normal. I will get a total T3 level. She may need a reduction in her levothyroxine dose. Qualifiers: Hypothyroidism type: acquired Qualified Code(s): E03.9 - Hypothyroidism, unspecified (10) Adrenal insufficiency: Status: Chronic Assessment and plan: As above per hypopituitarism (11) Chronic venous stasis dermatitis: Status: Chronic Assessment and plan: We will asked wound care nurse to address treatment of her legs (12) Advance directive discussed with patient: Status: Acute Assessment and plan: Dr. Royal met with the patient and her daughter this morning the patient is a full DNR DNI but would like to continue current treatment. Case management is working with the patient and family to obtain a hospital bed as well as a trapeze bar to improve the patient's ability to do bed transfers. They are also working with the patient and her family and her home health provider to obtain an infusion pump for continue hydrocodone infusion at home. (13) Discharge planning issues: Status: Acute Assessment and plan: web content manager is working with the patient and her family to obtain a new hospital bed with trapeze bar to improve the patient's mobility and bed transfers. Also working on getting an infusion pump and obtaining approval for hydromorphone infusion at home to help control her pain from her metastatic fractures. Subjective Subjective Interval history since last seen: Patient is feeling markedly better today. Pain is very well controlled at her current dose of hydromorphone 1.5 mg/h with 1 mg IV every hour as needed breakthrough pain. Patient denies any shortness of breath or cough or wheezing or sputum production. She denies any nausea or vomiting or abdominal pain. She has no chest pain. Hip pain is well controlled. She is afebrile today. Exam Narrative Exam Narrative: Morbidly obese female who is alert and oriented person place time circumstance. She is sitting up in bed talk with case management. Lungs are clear to auscultation Heart is regular rate and rhythm. Abdomen is obese soft nontender, normal bowel sounds. Mendoza catheter is in place draining clear yellow urine Objective Last Vital Signs Temp 36.8 C 11/17/19 07:33 Pulse 100 H 11/17/19 07:33 Resp 17 11/17/19 07:33 BP 115/68 11/17/19 07:33 Pulse Ox 94 11/17/19 07:33 Laboratory Results - last 24 hr 11/15/19 11/16/19 11/16/19 19:15 16:22 16:22 WBC 8.54 D RBC 2.99 L Hgb 8.1 L Hct 27.0 L MCV 90.3 MCH 27.1 MCHC 30.0 L RDW 17.5 H Plt Count 218 MPV 9.0 Immature Gran % 0.4 Neutrophils % 75.4 Lymphocytes % 16.3 Monocytes % 6.3 Eosinophils % 1.5 Basophils % 0.1 Nucleated RBC % 0 Absolute Neutrophils 6.44 Absolute Lymphocytes 1.39 Absolute Monocytes 0.54 Absolute Eosinophils 0.13 Absolute Basophils 0.01 VBG Lactate 1.2 Sodium Potassium Chloride Carbon Dioxide Anion Gap BUN Creatinine Estimated GFR/1.73 m2 Glucose Calcium Total Bilirubin AST ALT Alkaline Phosphatase Total Protein Albumin Procalcitonin 0.6 TSH Free T4 Urine Color Urine Clarity Urine pH Ur Specific [place] Urine Protein Urine Ketones Urine Blood Urine Nitrite Urine Bilirubin Urine Urobilinogen Ur Leukocyte Esterase Urine RBC Urine WBC Ur Epithelial Cells Urine Crystals Urine Bacteria Urine Casts Urine Mucus Urine Other Ur Culture Indicated? Urine Glucose COVID-19 PCR Negative Nasopharyn COVID-19 PCR Not Applicable Ref Test Perform Site [facility] 11/16/19 11/16/19 11/17/19 16:32 20:30 06:40 WBC RBC Hgb Hct MCV MCH MCHC RDW Plt Count MPV Immature Gran % Neutrophils % Lymphocytes % Monocytes % Eosinophils % Basophils % Nucleated RBC % Absolute Neutrophils Absolute Lymphocytes Absolute Monocytes Absolute Eosinophils Absolute Basophils VBG Lactate Sodium 136 Potassium 4.3 Chloride 101 Carbon Dioxide 30.1 Anion Gap 4.9 BUN 20 H Creatinine 1.49 H Estimated GFR/1.73 m2 35.70 Glucose 133 H D Calcium 8.5 Total Bilirubin 0.4 AST 76 H ALT 28 Alkaline Phosphatase 199 H Total Protein 7.3 Albumin 2.9 L Procalcitonin TSH 0.02 L Free T4 1.45 Urine Color Yellow Urine Clarity Clear Urine pH 5.5 Ur Specific [place] 1.010 Urine Protein 30 H Urine Ketones Negative Urine Blood Negative Urine Nitrite Negative Urine Bilirubin Negative Urine Urobilinogen 0.2 Ur Leukocyte Esterase Trace H Urine RBC 3-5 H Urine WBC 20-50 H Ur Epithelial Cells Negative Urine Crystals Negative Urine Bacteria Few Urine Casts Negative Urine Mucus Negative Urine Other Few transitional Ur Culture Indicated? C&s done as ordered Urine Glucose Negative COVID-19 PCR Nasopharyn COVID-19 PCR Ref Test Perform Site
[2019-11-17] MEDS: Fosfomycin Tromethamine 3 GM PACKET PO (13:31)
--- NOTE | 2019-11-17 15:13 | CHAPLAIN ---
Candace was sitting up in bed when I visited. She said it was the first time she'd been sitting up since she was admitted, so she was feeling good about that. She also worked with PT today and had exercises to do hourly. Candace said it will likely be Friday before she's discharged so that Kiki has time to get her hospital bed and alonsoya lift in the house and set up. Candace said she wished Kiki would agree to have Candace go to a chcf, but she knows Kiki won't agree to that. We talked about how important it was for Candace to take care of her parents and how difficult it is to be the recipient of care sometimes. Candace also told me about how she met Jose, her . I will continue to visit.
[2019-11-17 15:30] VITALS: BP 106/66; PULSE 93; RESP 18; TEMP 36.8; O2SAT 95
[2019-11-17 16:31] LABS: Abs Immature Grans 0.02 10^3/uL (0.0-0.06); Absolute Basophil Count 0.01 10^3/uL (0.0-0.2); Absolute Lymphocyte Count 0.78 10^3/uL (1.2-3.4); Absolute Monocyte Count 0.22 10^3/uL (0.1-0.8); Absolute Neutrophil Count 5.23 10^3/uL (1.2-6.7); Basophils % 0.2; HGB 7.5 g/dL (11.2-15.7); Immature Grans % 0.3; Lymphocytes % 12.5; MCV 89.9 fL (80-95); MPV 9.5 fL (8.0-11.0); Monocytes % 3.5; Neutrophils % 83.5; Nucleated RBC 0 %; Platelet Count 152 10^3/uL (130-400); RBC 2.78 10^6/uL (3.93-5.22); RDW 16.6 % (11.7-14.6); RDW-SD 55.1 fL; WBC 6.26 10^3/uL (4.4-10.8)
[2019-11-17 17:02] LABS: Anion Gap 5.6 mmol/L (3-11); BUN 19 mg/dL (7-18); CO2 29.4 mmol/L (21.0-32.0); CREATININE 1.33 mg/dL (0.55-1.02); Calcium 8.4 mg/dL (8.5-10.1); Chloride 101 mmol/L (98-107); Glucose 180 mg/dL (74-106); Sodium 136 mmol/L (136-145)
[2019-11-17] MEDS: Atorvastatin 40 MG TAB PO (21:01)
[2019-11-18] MEDS: Normal Saline Flush 10 ML SYR IVP ×5 (01:57→20:05)
[2019-11-18] MEDS: Hydrocortisone SOD SUC. 100 MG VIAL 50 MG IVP ×4 (01:57→20:04)
[2019-11-18] MEDS: Insulin NPH-Human 300 UNITS/3 ML PEN 25 UNIT SC ×3 (03:29→20:03)
[2019-11-18 03:36] VITALS: BP 103/63; PULSE 85; RESP 18; TEMP 36.2; O2SAT 96
[2019-11-18] MEDS: Levothyroxine 150 MCG TAB PO (05:31)
[2019-11-18 06:57] LABS: Anion Gap 6.8 mmol/L (3-11); BUN 19 mg/dL (7-18); CO2 29.2 mmol/L (21.0-32.0); CREATININE 1.21 mg/dL (0.55-1.02); Calcium 8.4 mg/dL (8.5-10.1); Chloride 101 mmol/L (98-107); Estimated GFR 45.39 (mL/min/1.73m2); Glucose 115 mg/dL (74-106); Sodium 137 mmol/L (136-145)
[2019-11-18 07:55] VITALS: BP 111/66; PULSE 84; RESP 18; TEMP 36.9; O2SAT 94
[2019-11-18] MEDS: Tiotropium Bromide-Respimat 10 PUFF INH IH (08:09)
[2019-11-18] MEDS: Budesonide/Formoterol 160/4.5 6 GM 60 PUFF INH IH ×2 (08:09→20:03)
[2019-11-18] MEDS: Pregabalin 100 MG CAP 200 MG PO ×3 (09:04→20:03)
[2019-11-18] MEDS: Omeprazole 20 MG CAPCR 40 MG PO (09:05)
[2019-11-18] MEDS: Tolterodine 2 MG CAPCR 4 MG PO (09:05)
[2019-11-18] MEDS: Folic Acid 1 MG TAB PO (09:06)
[2019-11-18] MEDS: Cyanocobalamin 500 MCG TAB 1000 MCG PO (09:07)
--- NOTE | 2019-11-18 09:12 | PDOC.CMPRO ---
- If Service Date Differs Date of service: 11/18/19 Time of Service: 09:12 Care Management Progress Note S/O:Candace was sitting up in bed when CM met with her. She was agreeable to conversation and engaged readily with CM. Candace stated that she met with Dr. Royal again this morning and had further discussion about goals of care. 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 She stated that if she develops another serious infection she would still want to be treated, even if it meant going to the hospital. Candace also shared that she no longer wants to receive chemotherapy. She knows it is not helping and has side effects that can be harmful. Candace shared that she is looking forward to going home tomorrow if all arrangements can be finalized. ЮЛИЯ also spoke with Kiki who has beeen working hard to get their home ready for Candace's return. Changes needed to be made in Candace's bedroom to accommodate the hospital bed she will need. A: Candace is a 59 year old woman admitted on 11/15/19 with a pathologic fracture of her pelvis. P:Candace will be discharged home with a resumption of home health nursing. She will have a pain pump to deliver hydromorphone and will have the ability to bolus if needed for breakthrough pain. ЮЛИЯ has sent a referral to [facility] for this service. Candace will also need a hospital bed which has been ordered through [facility]. She will follow up with her PCP and Oncologist and transport via ambulance as she is unable to walk or sit up at this time. ЮЛИЯ will continue to support patient, family and discharge planning needs.
[2019-11-18] MEDS: Insulin Aspart 300 UNITS/3 ML PEN SC ×2 (09:16→11:43)
[2019-11-18] MEDS: Ferrous Sulfate 325 MG TAB PO (09:29)
[2019-11-18] MEDS: Montelukast 10 MG TAB PO (09:29)
[2019-11-18] MEDS: Lactobacillus Acidophilus CAP 1 CAP PO ×2 (09:30→20:03)
[2019-11-18 09:42] LABS: Abs Immature Grans 0.02 10^3/uL (0.0-0.06); Absolute Lymphocyte Count 0.83 10^3/uL (1.2-3.4); Absolute Monocyte Count 0.22 10^3/uL (0.1-0.8); Absolute Neutrophil Count 4.16 10^3/uL (1.2-6.7); Immature Grans % 0.4; Lymphocytes % 15.9; MCH 26.9 pg (27.0-33.0); MCHC 29.6 % (32.0-36.0); MCV 90.9 fL (80-95); MPV 9.9 fL (8.0-11.0); Monocytes % 4.2; Neutrophils % 79.5; Nucleated RBC 0 %; Platelet Count 149 10^3/uL (130-400); RBC 2.75 10^6/uL (3.93-5.22); RDW 16.6 % (11.7-14.6); RDW-SD 55.3 fL; WBC 5.23 10^3/uL (4.4-10.8)
[2019-11-18 09:43] LABS: HGB 7.4 g/dL (11.2-15.7)
--- NOTE | 2019-11-18 10:10 | PT.INDS ---
Date of service: 11/18/19 Time of Service: 10:10 PT Notes Visit Reasons: PELVIC FRACTURE Physical Therapy Inpatient Discharge Summary Dates: 11/18/2019 Dates of Service: 11/17/2019 through 11/18/2019 Referring Doctor: Low Jose MD PT Orders: PT CONSULT: Eval/Treat Precautions: Fall. Standard. Activity as tolerated. Patient Profile/Admitting Diagnosis: Canadce is a 59-year-old female with chronic adrenal insufficiency and matastatic breast carcinoma who presented to the ED on 11/15/2019 with chief complaint of right hip pain after hearing a pop in her right hip during a wheelchair to car transfer. X-rays revealed mild to moderately displaced pathological right iliac wing fracture, complicated UTI, and acute kidney injury. PMHX: Medical History Acute confusion due to infection (Resolved) Acute UTI (Resolved) Adenoma of pituitary (Chronic) benign; renoved surgically on steroids and synthroid to replete Bacteremia (Resolved) Citrobacter C. difficile diarrhea (Acute) Cancer related pain (Chronic) improved with fentanyl patch Carpal tunnel syndrome (Acute) Chronic adrenal insufficiency (Acute) Chronic pain (Chronic) Chronic respiratory failure with hypoxia (Chronic) Chronic venous stasis dermatitis (Chronic) COPD (chronic obstructive pulmonary disease) (Chronic) On nocturnal oxygen - 2L prn Depression (Chronic) Diabetes mellitus (Chronic) Insulin dependent Discharge planning issues (Resolved) Diverticulosis (Acute) DNI (do not intubate) (Acute) DNR (do not resuscitate) (Acute) Dyslipidemia (Chronic) E. coli bacteremia (Resolved) Fatigue (Acute) Goals of care, counseling/discussion (Acute) History of breast cancer (Chronic) metastatic, with lymphatic spread and bone mets Hyperlipidemia (Acute) Hypopituitarism (Chronic) Hypothyroidism (Chronic) Influenza B (Acute) Iron deficiency anemia (Acute) Left lower lobe pneumonia (Resolved) Metastatic breast cancer (Chronic) Obesity (Chronic) Obstructive sleep apnea (Chronic) per [facility] records Palliative care patient (Chronic) Pneumonia (Acute) POLST (Physician Orders for Life-Sustaining Treatment) (Acute) done 03/26/19; DNR/DNI Positive blood cultures (Ruled-out) Pulmonary emboli (Inactive) Recurrent urinary tract infection (Acute) Restless leg syndrome (Acute) SOB (shortness of breath) (Resolved) Spinal stenosis (Acute) Stage IV breast cancer in female (Chronic) Toxic metabolic encephalopathy (Resolved) Uncontrolled pain (Resolved) Unsteady gait (Chronic) Urinary incontinence (Acute) UTI (urinary tract infection) (Resolved) Surgical History H/O bilateral mastectomy (Acute) H/O colonoscopy with polypectomy (Acute) H/O mastectomy (Chronic) bilateral History of carpal tunnel release of both wrists (Acute) Port-A-Cath in place (Acute) Status post transsphenoidal pituitary resection (Acute) Social History/Home Situation: Candace lives with her daughter Kiki in [place], [place] in a two-story house with a ramp to enter with rails on both sides. Patient has stairs to the second floor of the house but has everything she needs on the first floor. She is disabled. She has 2 daughters locally. She receives choices for care highest needs, and her daughter Kiki is her primary provider for 12 years now. Kiki provides assistance with bathing and does meal preapration and assistance with lower body dressing. She was independent with front-wheeled walker for in-house ambulation and uses the 4-wheeled walker for outdoor ambulation. She has to walk about 80-90 feet to get to her car. She is dependent on her daughter for transportation to and from appointments. Daughter also provides assistance with bathing patient's back due to body habitus. Equipment Owned/DME: Bariatric FWW, bariatric hospital bed, bariatric recliner, bariatric front wheeled walker, new bariatric wheelchair with seat and back cushions Subjective: Agreeable to using mechanical lift nella for all out-of bed activities. Objective: General Observation: Telemetry monitoring in place. Hemosiderin staining observed in bilateral distal legs from CVI. Abdominal panniculus. Mental Status: Alert and oriented x 4 Pain: 7-8/10 in right hip with movement ROM: Right Upper Extremity: Shoulder flexion WFL. Elbow flexion WFL. Hands/wrist and fingers are WFL. Left Upper Extremity: Shoulder flexion WFL. Elbow flexion WFL. Hands/wrist and fingers are WFL. Right Lower Extremity: Patient is able to bend hip to about 10-20 degrees in supine. Knee flexion WFL. Dorsiflexion/plantarflexion WFL. Left Lower Extremity: Patient is able to bend hip to about 10-20 degrees in supine. Knee flexion WFL. Dorsiflexion/plantarflexion WFL. Strength: Right Upper Extremity: Shoulder flexion 4/5. Elbow flexion 4/5. Marble Polisher strong and functional Left Upper Extremity: Shoulder flexion 4/5. Elbow flexion 4/5. Marble Polisher strong and functional. Right Lower Extremity: Hip flexion 3-/5. Knee flexion 4/-5. Knee extension 4-/5. Ankle dorsiflexion/plantarflexion 3+/5. Left Lower Extremity: Hip flexion 3-/5. Knee flexion 4-/5. Knee extension 4-/5. Ankle dorsiflexion/plantarflexion 4-/5. Bed Mobility/Transfers: Supine to sit moderate assist Sit to supine moderate assist Stand to sit mechanical lift only Bed to chair mechanical lift only Chair to bed mechanical lift only Gait: Wheelchair only Balance: Static Sitting: NT Dynamic Sitting: NT Static Standing: NT Dynamic Standing: NT Assessment: Mechanical behzad only for all transfers. Candace's most recent pathologic fracture has made her very reluctant with moving out of bed at all. She feels that her right hip is not going to be strong enough to take her weight. She feels that even moving in bed while in supine. She demonstrates significant mobility decline and very much reduced self-confidence to do any big movements at this time due to her recent fracture. With these she is at [facility] risk for developing skin breakdown and further decline. Candace is a 59-year-old female with chronic adrenal insufficiency and matastatic breast carcinoma who presented to the ED on 11/15/2019 with chief complaint of right hip pain after hearing a pop in her right hip during a wheelchair to car transfer. X-rays revealed mild to moderately displaced pathological right iliac wing fracture, complicated UTI, and acute kidney injury. Patient continues to present with clinical signs and symptoms consistent with current/admitting diagnoses that have resulted to mobility limitations, gait instability, generalized weakness, and impairment of motor control as demonstrated by the following impairment level findings: 1. Decreased strength to both hip major muscle groups 2. Impaired sitting/standing balance 3. Impaired activity tolerance 4. Limitation of joint range of motion in B hips 5. fearful of falling and weight-bearing Impairments are continuing to contribute to the following functional limitations: 1. Dependent bed mobility skills 2. Increased dependence with transfers 3. Inability to ambulate due to recent fracture and decreased self-confidence 5. Increased risk for skin breakdown Goals: Goals X 1 week 1. Supine-Sit contact-guard assist NOT MET 2. Sit-Supine contact-guard assist NOT MET 3. Sit-Stand contact-guard assist NOT MET 4. Stand-Sit contact-guard assist NOT MET 5. Bed-Chair contact-guard assist NOT MET 6. Chair-Bed contact-guard assist NOT MET 7. Contact-guard assist indoor ambulation using FWW for at least 15 feet without dyspnea and 2/10 pain in R hip NOT MET 9. Static/dynamic standing balance/tolerance good NOT MET DISCHARGE RECOMMENDATIONS: Needs mechanical lift for all transfers for safety. Patient will benefit from continued home health PT services in order to progress mobility level using four-wheeled walker, assess home safety, identify additional equipment needs, and cotninue with a functional maintenance program that will increase ability of patient to remain at home with daughter. TREATMENT CODE/TIME: 62999 x 20 minutes beginning at 10:10 AM. Thank you very much for this referral. Allie Miguel PT, DPT, CLT [facility] Inpatient PT at [place], [place]
--- NOTE | 2019-11-18 14:05 | W.PM.PROGNOT ---
Date of Service Date of service: 11/18/19 Time of Service: 14:05 Assessment and Plan Assessment and plan (1) Pelvic fracture: Status: Acute Assessment and plan: New left ilium metastatic fracture. Nonoperable. Pain is much improved and she is very rarely requiring any prn boluses of her hydromorphone. Currently she is receiving hydromorphone at 1.5 mg IV every hour Qualifiers: Encounter type: initial encounter Pelvic bone location: ilium Fracture type: closed Fracture morphology: unspecified fracture morphology Fracture alignment: displaced Laterality: right Qualified Code(s): S32.301A - Unspecified fracture of right ilium, initial encounter for closed fracture (2) Cancer related pain: Status: Chronic Assessment and plan: Pain control as above (3) Complicated UTI (urinary tract infection): Status: Acute Assessment and plan: Mendoza is draining clear yellow urine. Urine grew multiple organisms all less than 10,000 colonies of 2 different gram-negative lori species and 1 gram-positive beverly. More than likely this is colonization. Patient was treated with fosfomycin. At this point I am not going to give her further antibiotics because of her history of C. difficile colitis (4) Acute kidney injury superimposed on chronic kidney disease: Status: Resolved Assessment and plan: Acute kidney failure has resolved. BUN is down to 19 creatinine is at 1.21. Patient is now eating and drinking well and no longer requiring IV fluids. (5) Diabetes mellitus: Status: Chronic Assessment and plan: Patient was placed on her usual dose of Humulin R with each meal along with moderate dose sliding scale for coverage. Add NPH coverage while she is on the high-dose hydrocortisone. Blood sugars are doing well. Fasting glucose was 150 and her afternoon blood sugar was 120. Continue sliding scale along with her usual dose of Humulin R. Continue NPH coverage while she is on high-dose hydrocortisone. I will continue the hydrocortisone through discharge and then put her on her usual dose of hydrocortisone. Qualifiers: Diabetes mellitus type: type 2 Diabetes mellitus prison insulin use: with prison use Diabetes mellitus complication status: with kidney complications Diabetes mellitus complication detail: with chronic kidney disease Chronic kidney disease stage: stage 3 (moderate) Qualified Code(s): E11.22 - Type 2 diabetes mellitus with diabetic chronic kidney disease; N18.3 - Chronic kidney disease, stage 3 (moderate); Z79.4 - shelter (current) use of insulin (6) History of breast cancer: Status: Chronic Assessment and plan: Patient has metastatic breast cancer with spinal and pelvic mets. Patient has indicated to me as well as to Dr. Royal that she no longer wishes to continue with chemotherapy. She will follow-up with Dr. Walden as an outpatient and discuss her wishes with him. She feels that the chemotherapy is no longer working for her and Dr. Royal feels the same. (7) History of pulmonary embolism: Status: Chronic Assessment and plan: CTA of the chest yesterday showed no pulmonary embolus but showed some groundglass opacities. Clinically she has no cough or sputum production. And when out this may be some chronic changes from previous radiation treatment for her breast cancer. I am and keep her on Lovenox 1 mg/kg subcutaneously every 12 hours because of her prior history of PE in June 2019 as well as her increased risk for future PE and DVT due to her morbid obesity decreased ambulatory status and metastatic breast cancer. (8) Hypopituitarism: Status: Chronic Assessment and plan: Patient was placed on stress dose hydrocortisone yesterday. I will treat her for 3 days and then taper her back to her usual dose of hydrocortisone. (9) Hypothyroidism: Status: Chronic Assessment and plan: Patient remains on her levothyroxine 150 mcg daily. Her last TSH was low at 0.15 on August 23, 2019 while her free T4 was normal at 0.96. TSH is suppressed at 0.02 but her free T4 is normal. I will get a total T3 level. She may need a reduction in her levothyroxine dose. Qualifiers: Hypothyroidism type: acquired Qualified Code(s): E03.9 - Hypothyroidism, unspecified (10) Adrenal insufficiency: Status: Chronic Assessment and plan: As above per hypopituitarism (11) Chronic venous stasis dermatitis: Status: Chronic Assessment and plan: We will asked wound care nurse to address treatment of her legs (12) Advance directive discussed with patient: Status: Acute Assessment and plan: Patient no longer wishes to continue with chemotherapy. She will discuss this with Dr. Walden after discharge. sheep farm manager has set up services at home including home infusion of hydromorphone for pain management as well as obtaining trapeze bar and new hospital bed. Patient is a DNR/DNI per her wishes (13) Discharge planning issues: Status: Acute Assessment and plan: strategic accounts manager is working with the patient and her family to obtain a new hospital bed with trapeze bar to improve the patient's mobility and bed transfers. Also working on getting an infusion pump and obtaining approval for hydromorphone infusion at home to help control her pain from her metastatic fractures. Subjective Subjective Patient reports: no new complaints, feels better and pain is less; denies nausea and shortness of breath Exam Narrative Exam Narrative: Morbidly obese female who is alert and oriented person place time circumstance. She is sitting up in bed talk with case management. Lungs are clear to auscultation Heart is regular rate and rhythm. Abdomen is obese soft nontender, normal bowel sounds. Mendoza catheter is in place draining clear yellow urine Objective Last Vital Signs Temp 36.9 C 11/18/19 07:55 Pulse 84 11/18/19 07:55 Resp 18 11/18/19 07:55 BP 111/66 11/18/19 07:55 Pulse Ox 94 11/18/19 07:55 Laboratory Results - last 24 hr 11/17/19 11/17/19 11/18/19 16:17 16:17 06:30 WBC 6.26 RBC 2.78 L Hgb 7.5 L Hct 25.0 L MCV 89.9 MCH 27.0 MCHC 30.0 L RDW 16.6 H Plt Count 152 MPV 9.5 Immature Gran % 0.3 Neutrophils % 83.5 Lymphocytes % 12.5 Monocytes % 3.5 Eosinophils % 0.0 Basophils % 0.2 Nucleated RBC % 0 Absolute Neutrophils 5.23 Absolute Lymphocytes 0.78 L Absolute Monocytes 0.22 Absolute Eosinophils 0.00 Absolute Basophils 0.01 Sodium 136 137 Potassium 4.0 4.0 Chloride 101 101 Carbon Dioxide 29.4 29.2 Anion Gap 5.6 6.8 BUN 19 H 19 H Creatinine 1.33 H 1.21 H Estimated GFR/1.73 m2 40.70 45.39 Glucose 180 H 115 H Calcium 8.4 L 8.4 L 11/18/19 06:30 WBC 5.23 RBC 2.75 L Hgb 7.4 L Hct 25.0 L MCV 90.9 MCH 26.9 L MCHC 29.6 L RDW 16.6 H Plt Count 149 MPV 9.9 Immature Gran % 0.4 Neutrophils % 79.5 Lymphocytes % 15.9 Monocytes % 4.2 Eosinophils % 0.0 Basophils % 0.0 Nucleated RBC % 0 Absolute Neutrophils 4.16 Absolute Lymphocytes 0.83 L Absolute Monocytes 0.22 Absolute Eosinophils 0.00 Absolute Basophils 0.00 Sodium Potassium Chloride Carbon Dioxide Anion Gap BUN Creatinine Estimated GFR/1.73 m2 Glucose Calcium
--- NOTE | 2019-11-18 14:38 | CHAPLAIN ---
Candace was sitting up in bed when I visited with her this morning. She shared some more personal history with me today. According to Odd Shoe Examiner, Lauren's notes, Candace said she wants to stop her chemo treatments, but continue to treat any infection she might get, even if it means coming to the hospital. Candace's daughter Kiki is setting up a hospital bed and other equipment at home for Candace. Kiki is her primary traction power engineer. Candace is also close to Kiki's daughter, Logan, who lives with them. Candace said they also have good neighbors who are helpful and supportive of both Candace and Kiki.
[2019-11-18 15:20] VITALS: BP 128/73; PULSE 79; RESP 19; TEMP 37.3; O2SAT 96
[2019-11-18 19:10] VITALS: BP 122/71; PULSE 85; RESP 18; TEMP 36.6; O2SAT 94
[2019-11-18] MEDS: Atorvastatin 40 MG TAB PO (21:44)
[2019-11-19] MEDS: Hydrocortisone SOD SUC. 100 MG VIAL 50 MG IVP ×2 (02:03→08:13)
[2019-11-19] MEDS: Normal Saline Flush 10 ML SYR IVP ×2 (02:03→08:12)
[2019-11-19] MEDS: Insulin NPH-Human 300 UNITS/3 ML PEN 25 UNIT SC ×2 (05:07→11:37)
[2019-11-19] MEDS: Levothyroxine 150 MCG TAB PO (06:21)
[2019-11-19 07:24] VITALS: BP 121/64; PULSE 78; RESP 19; TEMP 36.7; O2SAT 95
[2019-11-19] MEDS: Budesonide/Formoterol 160/4.5 6 GM 60 PUFF INH IH (07:36)
[2019-11-19] MEDS: Tiotropium Bromide-Respimat 10 PUFF INH IH (07:36)
[2019-11-19] MEDS: Pregabalin 100 MG CAP 200 MG PO (08:13)
[2019-11-19] MEDS: Lactobacillus Acidophilus CAP 1 CAP PO (08:14)
[2019-11-19] MEDS: Cyanocobalamin 500 MCG TAB 1000 MCG PO (08:14)
[2019-11-19] MEDS: Omeprazole 20 MG CAPCR 40 MG PO (08:14)
[2019-11-19] MEDS: Ferrous Sulfate 325 MG TAB PO (08:14)
[2019-11-19] MEDS: Montelukast 10 MG TAB PO (08:14)
[2019-11-19] MEDS: Folic Acid 1 MG TAB PO (08:14)
[2019-11-19] MEDS: Tolterodine 2 MG CAPCR 4 MG PO (08:14)
--- NOTE | 2019-11-19 11:55 | DSE_ITS ---
Date of service: 11/19/19 Time of Service: 11:55 DS: Diagnosis Discharge Diagnosis (1) Pelvic fracture: Status: Acute Asessment and Plan: Patient will be discharged on hydromorphone pump at 1.5 mg/h per her Mediport with 1 mg/h PRN bolus for breakthrough pain. Patient will continue to receive home physical therapy services. manager agriculture his work with [facility] and the patient's DME provider to obtain new hospital bed with trapeze bar. Patient is indicated she has no desire to undergo radiation therapy for her pathologic fracture. (2) Cancer related pain: Status: Chronic (3) Complicated UTI (urinary tract infection): Status: Resolved Asessment and Plan: Patient was treated with fosfomycin 3 g p.o. x1 dose for presumptive UTI. Subsequent urine culture grew out mixed gram-negative beverly gram-positive beverly less than 10,000 colonies each. (4) Acute kidney injury superimposed on chronic kidney disease: Status: Resolved Asessment and Plan: Patient presented the hospital mildly dehydrated with an elevated creatinine 1.49 and a BUN of 20. With IV hydration her creatinine came down to 1.21. At the time of discharge patient was eating and drinking well (5) Diabetes mellitus: Status: Chronic Asessment and Plan: At the time of admission her diabetes was out of control her glucose was 246 but with basal bolus insulin treatment along with carbohydrate coverage we brought her blood sugars down to a fasting level of 115. And over the last 48 hours prior to discharge her glucose ran between 107 and 150. (6) History of breast cancer: Status: Chronic Asessment and Plan: Patient is to follow-up with Dr. Walden to discuss her prognosis of her breast cancer. At this time the patient is indicated she no longer wishes to continue with chemotherapy. (7) History of pulmonary embolism: Status: Chronic Asessment and Plan: CT of the chest was performed during this admission and did not show any evidence for pulmonary embolism. Patient has remote history of pulmonary embolism in June 2019. Her apixaban had been discontinued recently. Patient should remain on long-term Lovenox given her metastatic breast cancer as well as her sedentary status which puts her at increased risk for DVT and PE. Lovenox was initiated at 150 mg subcutaneous every 12 hours. (8) Hypopituitarism: Status: Chronic Asessment and Plan: Patient was treated with high-dose hydrocortisone for 3 days for stress dose she can now resume her usual dose of hydrocortisone. (9) Hypothyroidism: Status: Chronic (10) Adrenal insufficiency: Status: Chronic (11) Chronic venous stasis dermatitis: Status: Chronic (12) Advance directive discussed with patient: Status: Acute (13) Discharge planning issues: Status: Acute Discharge Plan Disposition Patient Disposition: HOME W/HOME HEALTH SERVICE Condition: Stable Discharge Details Reason For Visit: PELVIC FRACTURE Admit Date/Time: 11/15/19 18:40 Admit Provider: Robert Jose Attending Provider: Robert Jose Primary Care Provider: ANNA TORO Hospital Course Hospital Course: Patient is a 59-year-old female with metastatic breast cancer with bone metastasis who presented to the hospital after a spontaneous fracture of her right iliac wing which caused her to have pain in her right groin and inability to ambulate. Patient's had a chronic medical history of type 2 diabetes mellitus requiring insulin, COPD, obstructive sleep apnea for which she wears a CPAP machine, history of pulmonary emboli for which she had been on Eliquis until recently, history of recurrent UTIs, history of C. difficile colitis, chronic adrenal insufficiency requiring chronic hydrocortisone therapy secondary to previous transsphenoidal resection of a pituitary adenoma, depression. Patient is a DNR/DNI but is not in hospice care. She has been followed and managed by Dr. Yary Walden her oncologist at [facility] in [facility]. Patient is also been followed by [facility] visiting nurse. She was admitted to the hospital for pain management due to her pelvic fracture. She was seen by [address] of our [address] surgeons [address]. Michael Franklin who felt that this was a nonoperative problem. He felt that this is a pathologic fracture of her right iliac wing and he discussed radiation treatment with her but the patient is adamantly against any further radiation treatment. He felt that there is no role for surgery in this fracture and recommended pain control. Palliative medicine was consulted Dr. Nevaeh Braswell saw the patient and has coordinated her care with Dr. Walden. She indicated that Dr. Walden wants her to try another 3 to 4 weeks of oral cancer treatment. She indicated that Dr. Walden acknowledges that her pelvic fracture is yet another sign of her cancers progression. Initially patient indicated willingness to try another month of treatment but has since changed her mind and decided that she does not want any further chemotherapy. She indicated that she will follow-up with Dr. Walden and discuss her cancer status with him and she will discuss her wishes to not continue chemotherapy. Patient was started on a hydromorphone infusion. Her fentanyl patch was discontinued. Based on her baseline requirements of fentanyl as well as the intermittent oxycodone that she was initially given the pharmacist calculated a baseline infusion of hydromorphone at 3 mg/h with intermittent boluses of 1 mg every 30 minutes. This seemed to over sedate the patient and I diminished her dose to 1.5 mg/h with an intermittent bolus 1 mg IV q. 60 minutes as needed for pain. This seemed to control her pain nicely and she was able to participate with physical therapy and nursing staff. Physical therapy recommended mechanical lift for all transfers to minimize recurrence of her pathologic fractures in the reduce her risk of fall. They felt she would benefit from a bariatric hospital bed with rails bariatric mattress and a bariatric wheelchair cushion to reduce risk for skin breakdown. All these recommendations were conveyed to the manager critical care unit who is working with the visiting nurse service out [facility] to provide the services for the patient. While hospitalized the patient was given stress dose hydrocortisone to prevent acute adrenal insufficiency. Patient will be discharged on her home dose of hydrocortisone as well as her home doses of insulin for diabetes. Home Meds and New Rx's Prescriptions: New enoxaparin [Lovenox] 150 mg/mL Syringe 150 mg subcut Q12H Qty: 60 RF: 0 Continued exemestane 25 mg tablet 25 mg PO DAILY Qty: 90 RF: 0 Xgeva 120 mg/1.7 mL (70 mg/mL) solution 120 mg SC Q4W Qty: 1.7 RF: 0 montelukast [Singulair] 10 MG tablet 10 mg PO DAILY RF: 0 cyanocobalamin (vitamin B-12) [Vitamin B-12] 1,000 MCG tablet 1,000 mcg PO DAILY RF: 0 folic acid 1 MG tablet 1 mg PO DAILY RF: 0 Spiriva Respimat 4 GM mist 1 puff Inhalation DAILY RF: 0 budesonide-formoterol [Symbicort] 10.2 GM HFA aerosol inhaler 2 puff Inhalation BID RF: 0 ondansetron HCl [Zofran] 8 MG tablet 8 mg PO TID PRNRF: 0 levothyroxine 150 mcg Tablet 150 mcg PO DAILY RF: 0 Trulicity 1.5 mg/0.5 mL Pen Injector 1.5 mg SUBCUT QWEEK RF: 0 Afinitor 10 mg tablet 10 mg PO DAILY RF: 0 pregabalin 200 mg capsule 200 mg PO TID RF: 0 tolterodine 4 mg capsule,extended release 24hr 4 mg PO DAILY RF: 0 atorvastatin 40 mg tablet 40 mg PO HS RF: 0 ammonium lactate 12 % Lotion 0 g topical BID Qty: 14 RF: 0 Dificid 200 mg Tablet 200 mg PO BID Qty: 10 RF: 0 omeprazole 40 mg Capsule,Delayed Release(Dr/Ec) 40 mg PO DAILY RF: 0 ferrous sulfate 325 mg (65 mg iron) Tablet 325 mg PO DAILY RF: 0 cranberry 450 mg Tablet 450 mg PO DAILY RF: 0 Narcan 4 mg/actuation [place],Non-Aerosol 1 spray INTRANASAL PRN PRNRF: 0 Glucagon (HCl) Emergency Kit 1 mg Recon Soln 1 mg PRN PRNRF: 0 Humulin R U-500 (Conc) Kwikpen 500 unit/mL (3 mL) insulin pen 40 unit SUBCUT QNOON RF: 0 Humulin R U-500 (Conc) Kwikpen 500 unit/mL (3 mL) insulin pen 40 unit SUBCUT QPM RF: 0 Humulin R U-500 (Conc) Kwikpen 500 unit/mL (3 mL) insulin pen 70 unit SUBCUT QAM RF: 0 Lactobacillus acidophilus Capsule 1,000 mmu cells PO BID Qty: 30 RF: 0 hydrocortisone 10 mg Tablet 5 mg PO DAILY@1500 Qty: 0 RF: 0 hydrocortisone 5 mg Tablet 20 mg PO DAILY Qty: 0 RF: 0 Discontinued fentanyl 100 mcg/hr patch 72 hour 1 patch TD Q72H MDD 125 mcg Qty: 10 RF: 0 fentanyl 25 mcg/hr patch 72 hour 1 patch transdermal Q72H RF: 0 hydrocodone-acetaminophen 7.5-325 mg Tablet 2 tab PO Q6H PRN PRN (Reason: pain) Qty: 20 RF: 0 Discharge Instructions Instructions: Pelvic Fracture (GEN), Pain Management (GEN), Non-pharmacological Pain Management Therapies for Adults (ED) Additional Instructions: Ordering Physician BRYAN CANO MD Start Date 11/16/19 20:00 Stop Date Rx Number [id number] Total Dose 100 mls @ 0.15 mls/hr Drug Class Opiate Agonists Label Text Concentration 10 mg/ml Hydromorphone HCl 1,000 mg (100 ml) Hydromorphone Dilaudid-Hp Injection Device 1 each (1 Device) Cadd Pump Cassette Medication Cassette Resevoir Titration Protocol HYDROmorphone IV or SC infusion Condition Dose/Route Instruction Bolus Dose (mg) 1 Bolus Interval (min) 60 Infusion Rate (mg/hr) 1.5 See limitations below Protocol Text Use the appropriate string noted below for these continuous rate ranges Low Dose 0.1-2 mg/hr (10 mg 4 hour limit if used SC) Moderate Dose 0.2-4 mg/hr (20 mg 4 hour limit if used SC) High Dose 1-40 mg/hr (200 mg 4 hour limit if used SC) Stand Alone Forms: Nursing Discharge Form Activity:: Activity as Tolerated Equipment/Supplies:: cadd pump, hospital bed Diet:: Carb Counting Discharge Orders Discharge Orders: Discharge Order (Routine); Ordered 11/19/19 Ordered By: Luke Cano Discharge Data Discharge Date/Time-TO BE ENTERED AT DEPARTURE: 11/19/19 12:37 DS: Summary Status at Discharge Functional status at discharge: bed bound Overall status at discharge: patient is not back to baseline Mental Status: mental status grossly normal Speech and Movement: speech and movement normal Mood: congruent mood Affect: normal affect Exam Psych Mental Status: mental status grossly normal Speech and Movement: speech and movement normal Mood: congruent mood Affect: normal affect DS: Data Vitals/I&O Vitals and I&O: Vital Signs Temperature 36.7 C 11/19/19 07:24 Temperature Source Tympanic 11/19/19 07:24 Pulse 78 11/19/19 07:24 Pulse Rhythm Regular 11/19/19 08:25 Respiratory Rate 19 11/19/19 07:24 Respiratory Effort Non-Labored 11/19/19 08:25 Respiratory Depth Normal 11/19/19 08:25 Respiratory Pattern Normal 11/19/19 08:25 Blood Pressure 121/64 11/19/19 07:24 Blood Pressure Mean 62 11/15/19 18:17 Blood Pressure Position Supine 11/15/19 15:45 Pulse Oximetry 95 11/19/19 07:24 Oxygen Delivery Method Nasal Cannula 11/19/19 07:24 Oxygen Flow Rate 2 11/19/19 07:24 Pain Level 6 11/19/19 11:13 Comment 11/16/19 15:32 Intake & Output 11/18/19 11/18/19 11/19/19 11:59 23:59 11:59 Intake Total 120 / 600 480 / 600 500 / 500 Output Total 650 / 1575 925 / 1575 750 / 750 Balance -530 / -975 -445 / -975 -250 / -250 Intake: IV Oral 120 / 600 480 / 600 480 / 480 Output: Urine 650 / 1575 925 / 1575 750 / 750 Other: Urine Color Straw Yellow Light Giselle Urine Appearance Clear Clear Clear Stool Size Large Moderate Stool Characteristics Soft Soft Data Completed and Pending Labs on day of discharge: Labs from last 24 hours 11/19/19 06:45 Total T3 Pending Preliminary micro results at discharge 11/18/19 00:00 Sputum Culture - Preliminary Sputum 11/16/19 16:32 Blood Culture - Preliminary Blood NO GROWTH 48 HOURS 11/16/19 16:22 Blood Culture - Preliminary Blood NO GROWTH 48 HOURS [facility] Medical History (Updated 11/19/19 @ 15:13 by Luke Cano) Acute confusion due to infection Acute pain due to trauma Acute UTI Adenoma of pituitary benign; renoved surgically on steroids and synthroid to replete Bacteremia Citrobacter C. difficile diarrhea Cancer related pain improved with fentanyl patch Carpal tunnel syndrome Chronic adrenal insufficiency Chronic pain Chronic respiratory failure with hypoxia Chronic venous stasis dermatitis COPD (chronic obstructive pulmonary disease) On nocturnal oxygen - 2L prn Depression Diabetes mellitus Insulin dependent Discharge planning issues Diverticulosis DNI (do not intubate) DNR (do not resuscitate) Dyslipidemia E. coli bacteremia Encounter for hospice care discussion Fatigue Goals of care, counseling/discussion History of breast cancer metastatic, with lymphatic spread and bone mets Hyperlipidemia Hypopituitarism Hypothyroidism Influenza B Iron deficiency anemia Left lower lobe pneumonia Metastatic breast cancer Obstructive sleep apnea per [facility] Hospital records Palliative care patient Pneumonia POLST (Physician Orders for Life-Sustaining Treatment) done 03/26/19; DNR/DNI Positive blood cultures Pulmonary emboli Recurrent urinary tract infection Restless leg syndrome SOB (shortness of breath) Spinal stenosis Stage IV breast cancer in female Toxic metabolic encephalopathy Uncontrolled pain Unsteady gait Urinary incontinence UTI (urinary tract infection) Surgical History H/O bilateral mastectomy H/O colonoscopy with polypectomy H/O mastectomy bilateral History of carpal tunnel release of both wrists Port-A-Cath in place Status post transsphenoidal pituitary resection Family History Father , age 83 from complications of diabetes Prostate cancer Diabetes Mother , age 79 from complications of Crohn's disease and colitis Crohn's disease Colitis Daughter No problems noted. Daughter No problems noted. Brother Arthritis severe Obesity Sister Diabetes Obesity Sister No problems noted. Sister No problems noted. Social History Smoking/Tobacco Use Status: Former Tobacco Use Alcohol Intake: never Drug use: Never Substance use type: does not use Caregiver/Support person: Yes Household members: children Number of Children: 2 Communication Needs: Hard of Hearing and Corrective Lenses Education Level: middle school Do you need help understanding health information?: Always current occupation: on disability Pets and animals: Yes (4 cats, 3 dogs, 1 bird, 6 hermit crabs) Pets and animals: cat(s), dog(s), bird(s) and other Details: hermit crabs Current gender identity: female What is your relationship status?: How often do you talk on the phone with friends or family?: once per week How often do you get together with friends or relatives?: three or more times per week Panel score (0-1 are the most socially isolated patients): 1 What type of physical activity do you participate in: none, sedentary lifestyle, wheelchair-bound and additional Details: needs a new wheelchair, cannot walk far, just a few steps Special pedro pablo needs: No Seatbelt use: always Working smoke detector in home: Yes Fire extinguisher in home: Yes Firearms in home: No Do you feel safe at home: Yes Do you feel safe in your relationship?: Yes Additional Social history: , with 2 children. 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 She is not currently working and is on disability. Has a history of tobacco, quit in 1992. Reports rare use of alcohol only. Lives with daughter Bhargavi in [place], and her other daughter is close. Uses a walker to ambulate. Hard to do recently, depending more on WC. In a lot of pain. Recent scans show progression of breast cancer.
--- NOTE | 2019-11-19 13:45 | PDOC.CMDIS ---
- If Service Date Differs Date of service: 11/19/19 Time of Service: 13:45 LACE Index Scoring Tool - Questions: Length of Stay (in days): 4 - 6 Acuity (Admit via E.D.?): Yes Comorbidities: Diabetes w/o Complication, Chronic Pulmonary Disease, Liver or Renal Disease, Metastatic Solid Tumor E.D. Visits: 17 - Answers: Total Score: 16 Risk of Readmission: High Risk Care Management Discharge Reason for Hospitalization: Pelvic fracture Discharge Plan: Candace will return home with a resumption of HH RN, and added PT, OT, GAME PROGRAMER through [email or web address], coordinated by [employer]. She will transport via [facility]. [employer] coordinated a same day visit with in order to set up the [place] pump, which was coordinated through [facility] by [employer]. [employer] also coordinated a hospital bed for Candace that was delivered by [employer]. [employer] called her daughter, Kiki, who stated that everything has been delivered and she is ready to receive Candace. Candace is happy to be going home. She will follow up with Palliative care and her discharge plan of care. Patient/Family Education Needs: Review discharge instructions regarding activity levels and medications, discussion of self care needs and goals of care. Services Needed at Discharge: DME Agency ([employer]), Home Health Care Services ([email or web address]), Transportation ([employer])
[2019-11-19 17:02] LABS: T3, Total 63 ng/dL (97-169)
--- NOTE | 2019-11-21 10:21 | PCPN_ITS ---
Date of service: 11/18/19 Assessment and Plan Assessment and plan (1) Acute pain due to trauma: Status: Acute Assessment and plan: Acute on chronic pain. Has pathologic fx from bone mets. On hydromorphone pump. Working well. (2) Encounter for hospice care discussion: Status: Acute Assessment and plan: Qualifies for hospice. Would help her and her daughter get DME more easily. She wants to hear from Dr Walden. Given her body habitus, likely has months to live still. But overall less than six months. Daughter Kiki wants to ensure that she would still be able to receive [employer] money. Explained that I thought she could. (3) Discharge planning issues: Status: Acute (4) Pelvic fracture: Status: Acute Qualifiers: Encounter type: initial encounter Pelvic bone location: ilium Fracture type: closed Fracture morphology: unspecified fracture morphology Fracture alignment: displaced Laterality: right Qualified Code(s): S32.301A - Unspecified fracture of right ilium, initial encounter for closed fracture (5) History of breast cancer: Status: Chronic Subjective Subjective Patient reports: feels better and pain is less Interval history since last seen: Candace's hydromorphone pump is working well for pain control. Was too high a basal dose at first. Improved with decrease in hourly rate. Care management working on getting her DME for safe home discharge scheduled for 11/18. Her PCP, Nurys Martinez, ELECTRICIAN SUBSTATION SUPERVISOR from [facility] texted me early in am, worried about Candace. Francoises cancer is clearly progressing through her current cancer regimen. I did talk to Candace's oncologist, Dr Yary Walden. He wanted to continue treatment for another month. Candace, Nurys and I all share the same concern that treatment might shorten her life rather than extend it. Dr Walden is planning a home visit. Candace is no longer ambulatory. Exam Const General: cooperative, comfortable, no acute distress, well developed, well groomed and ill appearing chronically Nutritional Appearance: well nourished and obese Orientation: alert and awake Eyes Conjunctivae: conjunctivae normal Sclera: sclerae normal Chest Chest: other (s/p bilateral mastectomies) Breast palpation: axillary lymphadenopathy (large, fixed, firm) Resp Effort & Inspection: normal respiratory effort, able to speak in complete sentences and no respiratory distress Auscultation: clear to auscultation bilaterally Cardio Rate: regular rate Rhythm: regular rhythm Heart Sounds: S1 normal and S2 normal GI Inspection: normal to inspection and obesity Palpation: soft, no hepatosplenomegaly, not firm, no guarding and nontender Back/Spine/Pelvis Pelvis: other (visible pain with movement in her bed) Skin General skin exam: no rashes or lesions noted Lesions: no lesions Rashes: no rashes Trauma: no lacerations or abrasions Neuro General: patient alert, patient awake and patient oriented x3 Cognition: normal cognition Speech: speech normal Sensory Exam: no sensory deficits noted Extrem Right lower extremity: normal to inspection (exam of right hip is limited secondary to body habitus), normal capillary refill, no joint enlargement, hip/thigh Details: normal to inspection and tenderness (groin); no swelling, ROM abnormal (normal rotation but pain with flexion), no ecchymosis, no crepitus, no deformity and no unusual warmth, knee Details: normal to inspection; no tenderness and foot (edematous (equal to contralateral side), distal pulses intact, good sensati); no edema Psych Appearance: grossly normal and well kempt Mental Status: mental status grossly normal Speech and Movement: speech and movement normal Objective Last Vital Signs Temp 98.1 F 11/19/19 07:24 Pulse 78 11/19/19 07:24 Resp 19 11/19/19 07:24 BP 121/64 11/19/19 07:24 Pulse Ox 95 11/19/19 07:24
--- NOTE | 2019-11-22 09:17 | CHAPLAIN ---
I visited Candace on Friday (11/18). She was getting ready to be discharged home. She shared more personal history. We talked about her daughters and their relationships with Candace and each other. Candace was anxious to get the process of getting home started.
--- NOTE | 2019-11-23 09:00 | PT.INDS ---
Date of service: 11/23/19 PT Notes Visit Reasons: PELVIC FRACTURE Inpatient Physical Therapy Discharge Summary Date: 11/23/2019 Dates of Service: 11/17/2019 through 11/18/2019 Referring Doctor: Robert Jose MD PT Orders: PT CONSULT: Eval/Treat Precautions: Fall. Standard. Activity as tolerated. Patient Profile/Admitting Diagnosis: Candace is a 59-year-old female with chronic adrenal insufficiency and matastatic breast carcinoma who presented to the ED on 11/15/2019 with chief complaint of right hip pain after hearing a pop in her right hip during a wheelchair to car transfer. X-rays revealed mild to moderately displaced pathological right iliac wing fracture, complicated UTI, and acute kidney injury. PMHX: Medical History Acute confusion due to infection (Resolved) Acute UTI (Resolved) Adenoma of pituitary (Chronic) benign; renoved surgically on steroids and synthroid to replete Bacteremia (Resolved) Citrobacter C. difficile diarrhea (Acute) Cancer related pain (Chronic) improved with fentanyl patch Carpal tunnel syndrome (Acute) Chronic adrenal insufficiency (Acute) Chronic pain (Chronic) Chronic respiratory failure with hypoxia (Chronic) Chronic venous stasis dermatitis (Chronic) COPD (chronic obstructive pulmonary disease) (Chronic) On nocturnal oxygen - 2L prn Depression (Chronic) Diabetes mellitus (Chronic) Insulin dependent Discharge planning issues (Resolved) Diverticulosis (Acute) DNI (do not intubate) (Acute) DNR (do not resuscitate) (Acute) Dyslipidemia (Chronic) E. coli bacteremia (Resolved) Fatigue (Acute) Goals of care, counseling/discussion (Acute) History of breast cancer (Chronic) metastatic, with lymphatic spread and bone mets Hyperlipidemia (Acute) Hypopituitarism (Chronic) Hypothyroidism (Chronic) Influenza B (Acute) Iron deficiency anemia (Acute) Left lower lobe pneumonia (Resolved) Metastatic breast cancer (Chronic) Obesity (Chronic) Obstructive sleep apnea (Chronic) per [facility] records Palliative care patient (Chronic) Pneumonia (Acute) POLST (Physician Orders for Life-Sustaining Treatment) (Acute) done 03/26/19; DNR/DNI Positive blood cultures (Ruled-out) Pulmonary emboli (Inactive) Recurrent urinary tract infection (Acute) Restless leg syndrome (Acute) SOB (shortness of breath) (Resolved) Spinal stenosis (Acute) Stage IV breast cancer in female (Chronic) Toxic metabolic encephalopathy (Resolved) Uncontrolled pain (Resolved) Unsteady gait (Chronic) Urinary incontinence (Acute) UTI (urinary tract infection) (Resolved) Surgical History H/O bilateral mastectomy (Acute) H/O colonoscopy with polypectomy (Acute) H/O mastectomy (Chronic) bilateral History of carpal tunnel release of both wrists (Acute) Port-A-Cath in place (Acute) Status post transsphenoidal pituitary resection (Acute) Social History/Home Situation: Candace lives with her daughter Kiki in [place], [place] in a two-story house with a ramp to enter with rails on both sides. Patient has stairs to the second floor of the house but has everything she needs on the first floor. She is disabled. She has 2 daughters locally. She receives choices for care highest needs, and her daughter Kkii is her primary provider for 12 years now. Kiki provides assistance with bathing and does meal preapration and assistance with lower body dressing. She was independent with front-wheeled walker for in-house ambulation and uses the 4-wheeled walker for outdoor ambulation. She has to walk about 80-90 feet to get to her car. She is dependent on her daughter for transportation to and from appointments. Daughter also provides assistance with bathing patient's back due to body habitus. Equipment Owned/DME: Bariatric FWW, bariatric hospital bed, bariatric recliner, bariatric front wheeled walker, new bariatric wheelchair with seat and back cushions Subjective: Candace continues to be reluctant about trying to sit up and stand up as she states that she is afraid of how much pain she will have and unsure of whether her R hip can handle her weight. She is agreeable to trying to go slow with mobilization and consented to doing edge of bed activities tomorrow instead. She expresses good understanding on HEP to prevent further strength declines. Objective: General Observation: Telemetry monitoring in place. Hemosiderin staining observed in bilateral distal legs from CVI. Abdominal panniculus. Mental Status: Alert and oriented x 4 Pain: 7-8/10 in right hip with movement ROM: Right Upper Extremity: Shoulder flexion WFL. Elbow flexion WFL. Hands/wrist and fingers are WFL. Left Upper Extremity: Shoulder flexion WFL. Elbow flexion WFL. Hands/wrist and fingers are WFL. Right Lower Extremity: Patient is able to bend hip to about 10-20 degrees in supine. Knee flexion WFL. Dorsiflexion/plantarflexion WFL. Left Lower Extremity: Patient is able to bend hip to about 10-20 degrees in supine. Knee flexion WFL. Dorsiflexion/plantarflexion WFL. Strength: Right Upper Extremity: Shoulder flexion 4/5. Elbow flexion 4/5. Ship Officer strong and functional Left Upper Extremity: Shoulder flexion 4/5. Elbow flexion 4/5. Ship Officer strong and functional. Right Lower Extremity: Hip flexion 3-/5. Knee flexion 4/-5. Knee extension 4-/5. Ankle dorsiflexion/plantarflexion 3+/5. Left Lower Extremity: Hip flexion 3-/5. Knee flexion 4-/5. Knee extension 4-/5. Ankle dorsiflexion/plantarflexion 4-/5. Bed Mobility/Transfers: Supine to sit NT Sit to supine NT Stand to sit NT Bed to chair NT Chair to bed NT Gait: NT Balance: Static Sitting: NT Dynamic Sitting: NT Static Standing: NT Dynamic Standing: NT Assessment: Cnadace's most recent pathologic fracture has made her very reluctant with moving out of bed at all. She feels that her right hip is not going to be strong enough to take her weight. She feels that even moving in bed while in supine. She demonstrates significant mobility decline and very much reduced self-confidence to do any big movements at this time due to her recent fracture. With these she is at high risk for developing skin breakdown and further decline. She will be going home today requiring mechanical behzad for all transfers as her body habitus is in itself a risk for more pathologic fractures at this time. Patient continues to present with clinical signs and symptoms consistent with current/admitting diagnoses that have resulted to mobility limitations, gait instability, generalized weakness, and impairment of motor control as demonstrated by the following impairment level findings: 1. Decreased strength to both hip major muscle groups 2. Impaired sitting/standing balance 3. Impaired activity tolerance 4. Limitation of joint range of motion in B hips 5. fearful of falling and weight-bearing Impairments are continuing to contribute to the following functional limitations: 1. Dependent bed mobility skills 2. Increased dependence with transfers 3. Inability to ambulate due to recent fracture and decreased self-confidence 5. Increased rsik for skin breakdown Goals: Goals X 1 week 1. Supine-Sit contact-guard assist NOT MET 2. Sit-Supine contact-guard assist NOT MET 3. Sit-Stand contact-guard assist NOT MET 4. Stand-Sit contact-guard assist NOT MET 5. Bed-Chair contact-guard assist NOT MET 6. Chair-Bed contact-guard assist NOT MET 7. Contact-guard assist indoor ambulation using FWW for at least 15 feet without dyspnea and 2/10 pain in R hip NOT MET 9. Static/dynamic standing balance/tolerance good NOT MET DISCHARGE RECOMMENDATIONS: Patient will benefit from continued home health PT services in order to progress mobility level using four-wheeled walker, assess home safety, identify additional equipment needs, and continue with a functional maintenance program that will increase ability of patient to remain at home with daughter. Mechanical lift to reduce fall risk and pathologic fracture worsening/recurrence. TREATMENT CODE/TIME: 73131 x 15 minutes. Thank you very much for this referral. Allie Miguel PT, DPT, CLT [facility] at [place], [place]
== END 2019-11-19 12:37 | disposition home health service (06) | DRG 543 ==
LOC: ER 18:46 → MS 19:26
PROVIDERS: Internal Medicine; Admitting Provider General Practice; Emergency Provider Physician Assistant; PCP Nurse Practitioner Family; Visit Provider General Practice
DX: M84.550A Pathological fracture in neoplastic disease, pelvis, initial encounter for fracture (principal); E27.40 Unspecified adrenocortical insufficiency; J96.11 Chronic respiratory failure with hypoxia; C79.51 Secondary malignant neoplasm of bone; C77.9 Secondary and unspecified malignant neoplasm of lymph node, unspecified; E23.0 Hypopituitarism; Z68.42 Body mass index [BMI] 45.0-49.9, adult; N17.9 Acute kidney failure, unspecified; N39.0 Urinary tract infection, site not specified; F32.9 Major depressive disorder, single episode, unspecified; I87.2 Venous insufficiency (chronic) (peripheral); K57.90 Diverticulosis of intestine, part unspecified, without perforation or abscess without bleeding; Z66 Do not resuscitate; E78.5 Hyperlipidemia, unspecified; Z85.3 Personal history of malignant neoplasm of breast; E03.9 Hypothyroidism, unspecified; D50.9 Iron deficiency anemia, unspecified; E66.9 Obesity, unspecified; G47.33 Obstructive sleep apnea (adult) (pediatric); M48.00 Spinal stenosis, site unspecified; G25.81 Restless legs syndrome; Z87.440 Personal history of urinary (tract) infections; G89.3 Neoplasm related pain (acute) (chronic); R32 Unspecified urinary incontinence; Z90.13 Acquired absence of bilateral breasts and nipples; Z92.21 Personal history of antineoplastic chemotherapy; R53.1 Weakness; E11.22 Type 2 diabetes mellitus with diabetic chronic kidney disease; Z79.4 Long term (current) use of insulin; N18.3 Chronic kidney disease, stage 3 (moderate); I95.9 Hypotension, unspecified
CPT/HCPCS: 36415; 36591; 71275; 80048; 80053; 84145; 87040; 93005; 94640; 96374; 97162; 97530; 99221; 99222; 99232; 99233; 99239; 99252; 99255; 99285; J1650; U0003; 72192; 73501; 81003; 81015; 83605; 84439; 84443; 84480; 85025; 85610; 85730; 87070; 87086; 87205; 93010; J1170; J1720; J3490; Q9967

== ENCOUNTER 2019-11-25 10:12 | Emergency (ER) | payer MEDICARE, MEDICAID, SELFPAY ==
[2019-11-25] VITALS (30 sets, daily range): BP systolic 127–168; BP diastolic 60–124; PULSE 101–106; RESP 13–19; TEMP 36.4; O2SAT 88–96
--- NOTE | 2019-11-25 10:15 | RT.EKG_ITS ---
APPROVED REPORT Exam: Resting ECG Patient Location: E HR:103 bpm ECG Measurements Heart Rate 103 AXIS CA 192 P 51 QRSd 104 QRS 20 QT 343 T 16 QTc 450 Conclusion Sinus tachycardia...rate> 99 Low voltage, precordial leads...precordial leads <1.0mV Consider anterior infarct...Q >30mS in V2-V5 S1Q3T3 present.
--- NOTE | 2019-11-25 10:43 | W.ED.GENAD ---
Discharge Plan Disposition Patient Disposition: HOME Condition: Stable Discharge Details Clinical Impression: UTI (urinary tract infection), Low O2 saturation Primary Care Provider: ANNA TORO ED Provider: Kenia Melgoza Home Meds and New Rx's Prescriptions: New cephalexin 500 mg tablet 500 mg PO BID 7 Days Qty: 14 RF: 0 Continued exemestane 25 mg tablet 25 mg PO DAILY Qty: 90 RF: 0 Xgeva 120 mg/1.7 mL (70 mg/mL) solution 120 mg SC Q4W Qty: 1.7 RF: 0 montelukast [Singulair] 10 MG tablet 10 mg PO DAILY RF: 0 cyanocobalamin (vitamin B-12) [Vitamin B-12] 1,000 MCG tablet 1,000 mcg PO DAILY RF: 0 folic acid 1 MG tablet 1 mg PO DAILY RF: 0 Spiriva Respimat 4 GM mist 1 puff Inhalation DAILY RF: 0 budesonide-formoterol [Symbicort] 10.2 GM HFA aerosol inhaler 2 puff Inhalation BID RF: 0 ondansetron HCl [Zofran] 8 MG tablet 8 mg PO TID PRNRF: 0 levothyroxine 150 mcg Tablet 150 mcg PO DAILY RF: 0 Trulicity 1.5 mg/0.5 mL Pen Injector 1.5 mg SUBCUT QWEEK RF: 0 Afinitor 10 mg tablet 10 mg PO DAILY RF: 0 pregabalin 200 mg capsule 200 mg PO TID RF: 0 tolterodine 4 mg capsule,extended release 24hr 4 mg PO DAILY RF: 0 atorvastatin 40 mg tablet 40 mg PO HS RF: 0 ammonium lactate 12 % Lotion 0 g topical BID Qty: 14 RF: 0 Dificid 200 mg Tablet 200 mg PO BID Qty: 10 RF: 0 enoxaparin 40 mg/0.4 mL syringe 40 mg subcut DAILY Qty: 30 RF: 0 omeprazole 40 mg Capsule,Delayed Release(Dr/Ec) 40 mg PO DAILY RF: 0 ferrous sulfate 325 mg (65 mg iron) Tablet 325 mg PO DAILY RF: 0 cranberry 450 mg Tablet 450 mg PO DAILY RF: 0 Narcan 4 mg/actuation [place],Non-Aerosol 1 spray INTRANASAL PRN PRNRF: 0 Glucagon (HCl) Emergency Kit 1 mg Recon Soln 1 mg PRN PRNRF: 0 Humulin R U-500 (Conc) Kwikpen 500 unit/mL (3 mL) insulin pen 40 unit SUBCUT QNOON RF: 0 Humulin R U-500 (Conc) Kwikpen 500 unit/mL (3 mL) insulin pen 40 unit SUBCUT QPM RF: 0 Humulin R U-500 (Conc) Kwikpen 500 unit/mL (3 mL) insulin pen 70 unit SUBCUT QAM RF: 0 Lactobacillus acidophilus Capsule 1,000 mmu cells PO BID Qty: 30 RF: 0 hydrocortisone 10 mg Tablet 5 mg PO DAILY@1500 Qty: 0 RF: 0 hydrocortisone 5 mg Tablet 20 mg PO DAILY Qty: 0 RF: 0 Discharge Instructions Instructions: Urinary Tract Infection in Women (ED) Additional Instructions: At this time I am concerned that the hydromorphone may be causing increased sedation and therefore low O2 sats. Please follow-up with your PCP or Dr. Braswell regarding decreasing the basal rate of the hydromorphone. Care management will be following up to make you a appointment with Dr. Braswell. Return to the ED for any fever worsening symptoms or any concerns. Wear the oxygen that you have at home 23/09 until your follow-up appointment. It was also found you may be developing a small urinary tract infection at this time. Will place you on antibiotics cephalexin 5 mg twice a day. Referrals: Nevaeh Royal MD [ [facility] STAFF PHYSICIAN] - ANNA TORO [Primary Care Provider] - Discharge Data Discharge Date/Time-TO BE ENTERED AT DEPARTURE: 11/25/19 13:48 Medical Decision Making At this time work-up ordered including CBC, CMP, CT chest rule out PE, troponin, magnesium. Discussed work-up with patient who verbalizes understanding and she is agreeable to chest CT at this time. EKG was reviewed by Inocencio Alcazar MD ER attending, please see his official read. Does have S1Q3T3 which is concerning for PE. Due to patient's recent diagnosis of pelvic fracture PE is high probability at this time and in conjunction with shortness of breath hypoxia and tachycardia. Among the differential is oversedation from hydromorphone pump. 1156: Spoke with radiologist Dr. Abdi who states negative for pulmonary embolism or any acute on chest CT. CLINICAL HISTORY: SOB, Hx of pelvic fracture, R/O PE. TECHNIQUE: Imaging Protocol: Axial CT angiography was performed with multi-slice acquisition and multi-planar and/or 3D reconstructions. CONTRAST MATERIAL: Intravenous: Omnipaque 350 Contrast volume:100 mL COMPARISON: CT CT CHEST PE CTA from 11/16/2019 FINDINGS: Pulmonary Arteries: No evidence of filling defect to suggest pulmonary emboli. Tracheobronchial tree: Patent where visualized. Mediastinum and Mariely: Stable mediastinal adenopathy. Pulmonary parenchyma: Infiltrates are seen in the dependent portions of the lungs. There is poor inspiration. No focal consolidation. Pleura: No effusion or pneumothorax. Heart: Cardiomegaly. No coronary artery calcifications are seen. No pericardial effusion. Aorta: Thoracic aorta non-dilated. Atherosclerosis. Upper abdomen: Unremarkable. Bones: Degenerative changes.There is sclerosis of portions of the C7 and T5 vertebral bodies. Metastases cannot be excluded. Soft tissues: The left axillary/breast mass is incompletely imaged on the current examination. IMPRESSION: 1. No evidence of pulmonary embolism, thoracic aortic dissection or aneurysm. 2. The left breast/axillary mass is is present but incompletely imaged on the current examination. 3. Sclerosis of portions of the C7 and T5 vertebral bodies consistent with metastatic disease. 4. Small dependent infiltrates in the lungs may represent atelectasis. 5. Findings were discussed with the emergency department on the date of the examination. 1211: Spoke with daughter Bhargavi who reports that Dr. Royal may be the prescriber of the Hydromorphone pump, Patient returns from CT is on oxygen 2 L nasal cannula and is satting approximately 88 to 87% on room air she is sleeping. 1242: Page out to Nevaeh Royal with pallitave care, she is out of the office at this time. She is to call me back regarding decreasing the hydromorphone pump. Urinalysis added onto labs which shows positive nitrites and small leukocytes. This is concerning for UTI which patient does have a chronic history of. Will order antibiotics to treat for possible UTI. I have not heard back from home health, will instruct patient and plan discharge papers that I am concerned for oversedation. Patient to be with transferred to home via EMS due to nonambulatory status. HPI General Mode of arrival: EMS. Date/Time Provider Initiated Documentation: 11/25/19 10:14. Limitations to Documentation: altered mental status. Information obtained by: patient and EMS. HPI Narrative: 59-year-old female who is well-known to the department presents via EMS with chief complaint of low oxygen saturation. She does appear relatively sleepy and sedated upon initial exam. She is responsive to verbal stimulus. She has a history of metastatic breast cancer COPD, insulin-dependent diabetes, urinary tract infection, fibromyalgia, adrenal insufficiency she has a right pelvis fracture from bone mets she is on a hydromorphone pump. She is recently had a palliative care visit for hospice care discussion. Related Data Home Medications Medication Instructions Recorded Confirmed Spiriva Respimat 1 puff INHALATION DAILY 04/03/17 11/25/19 budesonide-formoterol [Symbicort] 2 puff INHALATION BID 04/03/17 11/25/19 cyanocobalamin (vitamin B-12) 1,000 mcg PO DAILY 04/03/17 11/25/19 [Vitamin B-12] folic acid 1 mg PO DAILY 04/03/17 11/25/19 montelukast [Singulair] 10 mg PO DAILY 04/03/17 11/25/19 ondansetron HCl [Zofran] 8 mg PO TID PRN 04/03/17 11/25/19 Trulicity 1.5 mg SUBCUT QWEEK 05/06/18 11/25/19 levothyroxine 150 mcg PO DAILY 05/06/18 11/25/19 Glucagon (HCl) Emergency Kit 1 mg PRN PRN 07/25/19 11/25/19 Humulin R U-500 (Conc) Kwikpen 40 unit SUBCUT QNOON 07/25/19 11/25/19 Humulin R U-500 (Conc) Kwikpen 40 unit SUBCUT QPM 07/25/19 11/25/19 Humulin R U-500 (Conc) Kwikpen 70 unit SUBCUT QAM 07/25/19 11/25/19 Narcan 1 spray INTRANASAL PRN PRN 07/25/19 11/25/19 cranberry 450 mg PO DAILY 07/25/19 11/25/19 ferrous sulfate 325 mg PO DAILY 07/25/19 11/25/19 omeprazole 40 mg PO DAILY 07/25/19 11/25/19 Lactobacillus acidophilus 1,000 mmu cells PO BID #30 cap 08/01/19 11/25/19 hydrocortisone 5 mg PO DAILY@1500 #0 tab 08/24/19 11/25/19 hydrocortisone 20 mg PO DAILY #0 tab 08/24/19 11/25/19 denosumab 120 mg/1.7 mL (70 mg/mL) 120 mg SC Q4W #1.7 ml 10/19/19 11/25/19 subcutaneous solution exemestane 25 mg tablet 25 mg PO DAILY #90 tab 10/19/19 11/25/19 Afinitor 10 mg PO DAILY 11/03/19 11/25/19 atorvastatin 40 mg PO HS 11/04/19 11/25/19 pregabalin 200 mg PO TID 11/04/19 11/25/19 tolterodine 4 mg PO DAILY 11/04/19 11/25/19 Dificid 200 mg PO BID #10 tab 11/09/19 11/25/19 ammonium lactate 0 g TOPICAL BID #14 oz 11/09/19 11/25/19 enoxaparin 40 mg SUBCUT DAILY #30 ml 11/21/19 11/25/19 cephalexin 500 mg PO BID 7 Days #14 tab 11/25/19 Previous Rx's Medication Instructions Recorded Lactobacillus acidophilus 1,000 mmu cells PO BID #30 cap 08/01/19 hydrocortisone 5 mg PO DAILY@1500 #0 tab 08/24/19 hydrocortisone 20 mg PO DAILY #0 tab 08/24/19 denosumab 120 mg/1.7 mL (70 mg/mL) 120 mg SC Q4W #1.7 ml 10/19/19 subcutaneous solution exemestane 25 mg tablet 25 mg PO DAILY #90 tab 10/19/19 Dificid 200 mg PO BID #10 tab 11/09/19 ammonium lactate 0 g TOPICAL BID #14 oz 11/09/19 enoxaparin 40 mg SUBCUT DAILY #30 ml 11/21/19 cephalexin 500 mg PO BID 7 Days #14 tab 11/25/19 Allergies Allergy/AdvReac Type Severity Reaction Status Date / Time bee venom protein (honey bee) Allergy Unknown Unverified 11/25/19 10:25 adhesive tape AdvReac Mild Unverified 11/25/19 10:25 Latex, Natural Rubber AdvReac Mild Unverified 11/25/19 10:25 General Stated Complaint: Orthopedic CARMEN: 3 Review of Systems Narrative: Constitutional: Negative for weight loss, alert and oriented, appears sedated, well groomed, obese body habitus, appears comfortable. HEENT: Denies trauma, headaches, blurry vision, nasal discharge, sore throat, trouble swallowing. Chest: Denies chest pain, palpitations, irregular rhythm, hypertension. Respiratory: Denies Shortness of breath, cough, hemoptysis. GI: Denies abdominal pain, nausea, vomiting, diarrhea, constipation. : Denies dysuria, hematuria, flank pain, rectal bleeding. Neuro: Denies dizziness, blurry vision, weakness, syncope, or facial numbness. Hematologic: Denies easy bruising, intolerance to heat or cold, hair loss. [facility] Medical History Acute confusion due to infection Acute pain due to trauma Acute UTI Adenoma of pituitary benign; renoved surgically on steroids and synthroid to replete Bacteremia Citrobacter C. difficile diarrhea Cancer related pain improved with fentanyl patch Carpal tunnel syndrome Chronic adrenal insufficiency Chronic pain Chronic respiratory failure with hypoxia Chronic venous stasis dermatitis COPD (chronic obstructive pulmonary disease) On nocturnal oxygen - 2L prn Depression Diabetes mellitus Insulin dependent Discharge planning issues Diverticulosis DNI (do not intubate) DNR (do not resuscitate) Dyslipidemia E. coli bacteremia Encounter for hospice care discussion Fatigue Goals of care, counseling/discussion History of breast cancer metastatic, with lymphatic spread and bone mets Hyperlipidemia Hypopituitarism Hypothyroidism Influenza B Iron deficiency anemia Left lower lobe pneumonia Metastatic breast cancer Obstructive sleep apnea per [facility] records Palliative care patient Pneumonia POLST (Physician Orders for Life-Sustaining Treatment) done 03/26/19; DNR/DNI Positive blood cultures Pulmonary emboli Recurrent urinary tract infection Restless leg syndrome SOB (shortness of breath) Spinal stenosis Stage IV breast cancer in female Toxic metabolic encephalopathy Uncontrolled pain Unsteady gait Urinary incontinence UTI (urinary tract infection) Surgical History H/O bilateral mastectomy H/O colonoscopy with polypectomy H/O mastectomy bilateral History of carpal tunnel release of both wrists Port-A-Cath in place Status post transsphenoidal pituitary resection Family History Father , age 83 from complications of diabetes Prostate cancer Diabetes Mother , age 79 from complications of Crohn's disease and colitis Crohn's disease Colitis Daughter No problems noted. Daughter No problems noted. Brother Arthritis severe Obesity Sister Diabetes Obesity Sister No problems noted. Sister No problems noted. Social History Smoking/Tobacco Use Status: Former Tobacco Use Alcohol Intake: never Drug use: Never Substance use type: does not use Caregiver/Support person: Yes Household members: children Number of Children: 2 Communication Needs: Hard of Hearing and Corrective Lenses Education Level: middle school Do you need help understanding health information?: Always current occupation: on disability Pets and animals: Yes (4 cats, 3 dogs, 1 bird, 6 hermit crabs) Pets and animals: cat(s), dog(s), bird(s) and other Details: hermit crabs Current gender identity: female What is your relationship status?: How often do you talk on the phone with friends or family?: once per week How often do you get together with friends or relatives?: three or more times per week Panel score (0-1 are the most socially isolated patients): 1 What type of physical activity do you participate in: none, sedentary lifestyle, wheelchair-bound and additional Details: needs a new wheelchair, cannot walk far, just a few steps Special pedro pablo needs: No Seatbelt use: always Working smoke detector in home: Yes Fire extinguisher in home: Yes Firearms in home: No Do you feel safe at home: Yes Do you feel safe in your relationship?: Yes Additional Social history: , with 2 children. 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 She is not currently working and is on disability. Has a history of tobacco, quit in 1992. Reports rare use of alcohol only. Lives with daughter Bhargavi in [place], and her other daughter is close. Uses a walker to ambulate. Hard to do recently, depending more on WC. In a lot of pain. Recent scans show progression of breast cancer. Exam Narrative Exam Narrative: Constitutional: Alert and oriented x3. Appears stated age. Morbidly obese body habitus. Is very sleepy falls asleep during conversation. Head: Normocephalic, no trauma. Eyes: Pupils PERRLA, Red reflex noted, EOM's intact. Eyelids symmetrical without lesions, discharge, or swelling. ENT: Bilateral TM's WNL, External ear normal to inspection, no mastoid TTP, swelling, or erythema, Nasal turbinates WNL, no nasal discharge. Normal dentition, Posterior pharynx WNL, no exudate. Chest: Tachycardia, normal S1, S2, distal pulses intact. Resp: Lungs clear to auscultation bilaterally, no wheezes, rales, or rhonchi. Musculoskeletal: Unable to assess gait. Patient is normally nonambulatory Skin: No suspicious rashes or lesions. Capillary refill less than 2 sec. no pitting edema noted to the bilateral lower extremities. Neurologic: Cranial nerves II-XII intact. Alert and oriented x 3. DTR's intact. Hematologic/Lymphatic: No ecchymosis, no lymphadenopathy. Course Vital Signs Vital signs: Vital Signs Temperature 36.4 C L 11/25/19 10:20 Pulse 106 H 11/25/19 10:20 Respiratory Rate 16 11/25/19 10:20 Blood Pressure 146/73 H 11/25/19 10:20 Pulse Oximetry 92 11/25/19 10:20 Temperature 36.4 C L 11/25/19 10:20 Temperature Source Tympanic 11/25/19 10:20 Pulse 106 H 11/25/19 10:20 Respiratory Rate 16 11/25/19 10:20 Respiratory Effort Non-Labored 11/25/19 10:24 Blood Pressure 146/73 H 11/25/19 10:20 Blood Pressure Position Sitting 11/25/19 10:20 Pulse Oximetry 92 11/25/19 10:20 Oxygen Delivery Method Room Air 11/25/19 10:20 Oxygen Flow Rate 0 11/25/19 10:20 Pain Level 6 11/25/19 10:26 Comment hip 08/1011/25/19 10:20
[2019-11-25 10:54] LABS: Abs Immature Grans 0.02 10^3/uL (0.0-0.06); Absolute Basophil Count 0.01 10^3/uL (0.0-0.2); Absolute Eosinophil Count 0.11 10^3/uL (0.0-0.7); Absolute Lymphocyte Count 0.99 10^3/uL (1.2-3.4); Absolute Monocyte Count 0.34 10^3/uL (0.1-0.8); Basophils % 0.2; HCT 28.8 % (36.0-46.0); HGB 8.3 g/dL (11.2-15.7); Immature Grans % 0.4; Lymphocytes % 18.1; MCH 26.2 pg (27.0-33.0); MCHC 28.8 % (32.0-36.0); MCV 90.9 fL (80-95); MPV 9.6 fL (8.0-11.0); Monocytes % 6.2; Neutrophils % 73.1; Nucleated RBC 0 %; Platelet Count 193 10^3/uL (130-400); RBC 3.17 10^6/uL (3.93-5.22); RDW 16.6 % (11.7-14.6); RDW-SD 55.8 fL; WBC 5.47 10^3/uL (4.4-10.8)
[2019-11-25 10:57] LABS: ALT 110 U/L (14-59); AST 188 U/L (15-37); Albumin 2.7 g/dL (3.4-5.0); Alkaline Phosphatase 262 U/L (46-116); Anion Gap 4.4 mmol/L (3-11); BUN 15 mg/dL (7-18); Bilirubin, Total 0.5 mg/dL (0.2-1.0); CO2 32.6 mmol/L (21.0-32.0); Calcium 8.7 mg/dL (8.5-10.1); Chloride 101 mmol/L (98-107); Estimated GFR 56.56 (mL/min/1.73m2); Glucose 153 mg/dL (74-106); Magnesium 2.2 mg/dL (1.8-2.4); Potassium 4.2 mmol/L (3.5-5.1); Sodium 138 mmol/L (136-145); Total Protein 7.4 g/dL (6.4-8.2)
[2019-11-25 11:00] LABS: Troponin I < 0.05 ng/mL (<0.06)
[2019-11-25 11:04] LABS: Diff Comment RBC Morph Reviewed
[2019-11-25 11:06] LABS: Anisocytosis 1+; Polychromasia Present
--- NOTE | 2019-11-25 11:42 | DI.CT_ITS ---
EXAM: CT CHEST PE CTA CLINICAL HISTORY: SOB, Hx of pelvic fracture, R/O PE. TECHNIQUE: Imaging Protocol: Axial CT angiography was performed with multi-slice acquisition and mu lti-planar and/or 3D reconstructions. CONTRAST MATERIAL: Intravenous: Omnipaque 350 Contrast volume:100 mL COMPARISON: CT CT CHEST PE CTA from 11/16/2019 FINDINGS: Pulmonary Arteries: No evidence of filling defect to suggest pulmonary emboli. Tracheobronchial tree: Patent where visualized. Mediastinum and Mariely: Stable mediastinal adenopathy. Pulmonary parenchyma: Infiltrates are seen in the dependent portions of the lungs. There is poor insp iration. No focal consolidation. Pleura: No effusion or pneumothorax. Heart: Cardiomegaly. No coronary artery calcifications are seen. No pericardial effusion. Aorta: Thoracic aorta non-dilated. Atherosclerosis. Upper abdomen: Unremarkable. Bones: Degenerative changes.There is sclerosis of portions of the C7 and T5 vertebral bodies. Metasta ses cannot be excluded. Soft tissues: The left axillary/breast mass is incompletely imaged on the current examination. IMPRESSION: 1. No evidence of pulmonary embolism, thoracic aortic dissection or aneurysm. 2. The left breast/axillary mass is is present but incompletely imaged on the current examination. 3. Sclerosis of portions of the C7 and T5 vertebral bodies consistent with metastatic disease. 4. Small dependent infiltrates in the lungs may represent atelectasis. 5. Findings were discussed with the emergency department on the date of the examination. RADIATION DOSE DELIVERED: 763.86mGy.cm Total DLP DATA REPOSITORY: All CT scans at this facility are submitted to the National Radiology Data Registry (NRDR) Dose Index Registry (DIR) with the [employer] ([employer]). RADIATION OPTIMIZATION: All CT scans at this facility use at least one of these dose optimization te chniques: automated exposure control; mA and/or kV adjustment per patient size (includes targeted exa ms where dose is matched to clinical indication); or iterative reconstruction.
[2019-11-25] MEDS: Normal Saline - Diluent 50 ML VIAL IV (11:44)
[2019-11-25] MEDS: Omnipaque 350 MG/ML 100 ML BTL IJ (11:44)
[2019-11-25 12:29] LABS: Bilirubin Negative (Negative); Blood Trace-intact (Negative); Clarity Cloudy (Clear); Glucose Negative (Negative); Ketones 15 mg/dL (Negative); Leukocyte Esterase Small (Negative); Nitrite Positive (Negative); Urobilinogen 0.2 EU/dL (Up TO 0.2); pH 5.5 (5-8)
[2019-11-25 12:48] LABS: Epithelial Cells Negative HPF (Negative); WBC >50 HPF (0-5)
[2019-11-25 12:49] LABS: Bacteria Many HPF (Negative); C & S Indicated? Yes; Crystals Rare Uric Acid HPF (Negative); Mucus Heavy (Negative); Other Cells Few Renal (Negative)
--- NOTE | 2019-11-25 12:49 | NUR.NOTE ---
Nursing Note: Referral for follow up with Palliative Care given to Care Management. Sachi Gallardo
[2019-11-25] MEDS: Cephalexin 500 MG CAP PO (12:54)
--- NOTE | 2019-11-26 09:02 | PDOC.ERCMPRO ---
- If Service Date Differs Date of service: 11/25/19 Time of Service: 09:02 Care Management Progress Note Candace comes to the ED via EMS due to low O2 saturation. Kenia, ED provider, diagnoses her with a UTI and is concerned that the rate of the hydromorphone cadd pump is causing increased sedation, resulting in low O2 saturation. At the request of ED provider, ЮЛИЯ contacts Aarti Kaye of Palliative Care to inquire if she can order a decrease in the infusion rate of the hydromorphone pump. Aarti will call the ED provider directly to further discuss.
== END 2019-11-25 13:48 | disposition home or self-care (01) ==
PROVIDERS: Emergency Provider Registered Nurse Emergency; PCP Nurse Practitioner Family
DX: N39.0 Urinary tract infection, site not specified (principal); R09.02 Hypoxemia; Z79.01 Long term (current) use of anticoagulants; C50.912 Malignant neoplasm of unspecified site of left female breast; Z87.440 Personal history of urinary (tract) infections; J44.9 Chronic obstructive pulmonary disease, unspecified; Z87.891 Personal history of nicotine dependence; E11.9 Type 2 diabetes mellitus without complications; Z79.4 Long term (current) use of insulin
CPT/HCPCS: 36415; 71275; 80053; 87077; 93005; 99285; 81003; 81015; 83735; 84484; 85025; 87086; 93010; 99284; J3490

== ENCOUNTER 2019-11-26 13:36 | Inpatient (IN) | payer MEDICARE, MEDICAID, SELFPAY ==
[2019-11-26] VITALS (11 sets, daily range): BP systolic 125–142; BP diastolic 53–76; PULSE 82–88; RESP 16–19; TEMP 35.9–36.6; O2SAT 95–96
--- NOTE | 2019-11-26 13:45 | RT.EKG_ITS ---
APPROVED REPORT Exam: Resting ECG Patient Location: E HR:86 bpm ECG Measurements Heart Rate 86 AXIS HI 192 P 41 QRSd 91 QRS 23 QT 384 T 35 QTc 460 Conclusion Sinus rhythm...normal P axis, V-rate 60- 99 Low voltage, precordial leads...precordial leads <1.0mV
--- NOTE | 2019-11-26 13:58 | W.ED.GENAD ---
Discharge Plan Disposition Patient Disposition: [facility] INPATIENT Condition: Serious Discharge Details Clinical Impression: CHF (congestive heart failure), UTI (urinary tract infection), Headache, Anemia Admit Date/Time: 11/26/19 17:06 Admit Provider: Puma Ibrahim Attending Provider: Puma Ibrahim Primary Care Provider: ANNA TORO ED Provider: Inocencio Alcazar Discharge Data Discharge Date/Time-TO BE ENTERED AT DEPARTURE: 11/26/19 17:55 Medical Decision Making 59-year-old female with multiple medical problems including metastatic breast cancer, recent pelvic fracture, indwelling Alex catheter, seen here in the emergency department for altered mental status and presumed oversedation and UTI and shortness of breath yesterday, returns today with headache and persistent shortness of breath. CT of the chest rule out pulmonary embolism was performed yesterday and nondiagnostic. Labs reviewed: Persistent anemia, mild elevation of LFTs, elevated BNP greater than 2000 which given her lower extremity edema and shortness of breath is consistent with acute CHF exacerbation. Lasix 20 mg IV was administered. Patient was diagnosed with UTI yesterday. She has chronic indwelling Alex. She was started on Keflex yesterday. I did consider acute intracranial hemorrhage. Headache is been present for a few hours and would expect abnormal finding on CT if bleed present. CT of the head was interpreted by radiology as no acute abnormality. Screening ECG was reviewed and interpreted by me: Please see report Patient has generalized weakness and does not thriving in home environment. Plan to admit for CHF, UTI. I called and spoke with on-call hospitalist Dr. Ibrahim who will admit the patient. Care transition to hospitalist service. HPI General Mode of arrival: EMS. Date/Time Provider Initiated Documentation: 11/26/19 13:39. Limitations to Documentation: no limitations. Information obtained by: patient and EMS. HPI Narrative: 59-year-old female with multiple medical problems, including metastatic breast cancer, COPD, diabetes, recent urinary tract infection, seen here in the emergency department yesterday for altered mental status and presumed oversedation and UTI and shortness of breath, presents today with chief complaint of headache. Patient notes frontal superior headache started a few hours ago and has persisted. Headache is severe. No modifiers. No associated nausea or vomiting. Patient notes she continues to have shortness of breath that is persistent. She has associated increased fatigue. In the emergency room yesterday she was diagnosed with urinary tract infection. There was concern that her Dilaudid pump rate was too high resulting in oversedation. This subsequently was decreased. She had a CT of the chest to rule out pulmonary embolism. Related Data Home Medications Medication Instructions Recorded Confirmed Spiriva Respimat 1 puff INHALATION DAILY 04/03/17 11/26/19 budesonide-formoterol [Symbicort] 2 puff INHALATION BID 04/03/17 11/26/19 cyanocobalamin (vitamin B-12) 1,000 mcg PO DAILY 04/03/17 11/26/19 [Vitamin B-12] folic acid 1 mg PO DAILY 04/03/17 11/26/19 montelukast [Singulair] 10 mg PO DAILY 04/03/17 11/26/19 ondansetron HCl [Zofran] 8 mg PO TID PRN 04/03/17 11/26/19 Trulicity 1.5 mg SUBCUT QWEEK 05/06/18 11/26/19 levothyroxine 150 mcg PO DAILY 05/06/18 11/26/19 Glucagon (HCl) Emergency Kit 1 mg PRN PRN 07/25/19 11/26/19 Humulin R U-500 (Conc) Kwikpen 40 unit SUBCUT QNOON 07/25/19 11/26/19 Humulin R U-500 (Conc) Kwikpen 40 unit SUBCUT QPM 07/25/19 11/26/19 Humulin R U-500 (Conc) Kwikpen 70 unit SUBCUT QAM 07/25/19 11/26/19 Narcan 1 spray INTRANASAL PRN PRN 07/25/19 11/26/19 cranberry 450 mg PO DAILY 07/25/19 11/26/19 ferrous sulfate 325 mg PO DAILY 07/25/19 11/26/19 omeprazole 40 mg PO DAILY 07/25/19 11/26/19 Lactobacillus acidophilus 1,000 mmu cells PO BID #30 cap 08/01/19 11/26/19 hydrocortisone 5 mg PO DAILY@1500 #0 tab 08/24/19 11/26/19 hydrocortisone 20 mg PO DAILY #0 tab 08/24/19 11/26/19 denosumab 120 mg/1.7 mL (70 mg/mL) 120 mg SC Q4W #1.7 ml 10/19/19 11/26/19 subcutaneous solution exemestane 25 mg tablet 25 mg PO DAILY #90 tab 10/19/19 11/26/19 Afinitor 10 mg PO DAILY 11/03/19 11/26/19 atorvastatin 40 mg PO HS 11/04/19 11/26/19 pregabalin 200 mg PO TID 11/04/19 11/26/19 tolterodine 4 mg PO DAILY 11/04/19 11/26/19 Dificid 200 mg PO BID #10 tab 11/09/19 11/26/19 ammonium lactate 0 g TOPICAL BID #14 oz 11/09/19 11/26/19 enoxaparin 40 mg SUBCUT DAILY #30 ml 11/21/19 11/26/19 cephalexin 500 mg PO BID 7 Days #14 tab 11/25/19 Previous Rx's Medication Instructions Recorded Lactobacillus acidophilus 1,000 mmu cells PO BID #30 cap 08/01/19 hydrocortisone 5 mg PO DAILY@1500 #0 tab 08/24/19 hydrocortisone 20 mg PO DAILY #0 tab 08/24/19 denosumab 120 mg/1.7 mL (70 mg/mL) 120 mg SC Q4W #1.7 ml 10/19/19 subcutaneous solution exemestane 25 mg tablet 25 mg PO DAILY #90 tab 10/19/19 Dificid 200 mg PO BID #10 tab 11/09/19 ammonium lactate 0 g TOPICAL BID #14 oz 11/09/19 enoxaparin 40 mg SUBCUT DAILY #30 ml 11/21/19 cephalexin 500 mg PO BID 7 Days #14 tab 11/25/19 Allergies Allergy/AdvReac Type Severity Reaction Status Date / Time bee venom protein (honey bee) Allergy Unknown Unverified 11/26/19 16:40 adhesive tape AdvReac Mild Unverified 11/26/19 16:40 Latex, Natural Rubber AdvReac Mild Unverified 11/26/19 16:40 General Stated Complaint: GenMedical CARMEN: 3 Review of Systems All systems reviewed & are unremarkable except as noted in HPI and below Constitutional Constitutional: Reports fatigue, Denies fever(s), Reports headache(s) and Denies weakness ENT Ears, Nose, Mouth, and Throat: Reports headache(s) Cardiovascular Cardiovascular: Reports dyspnea Respiratory Respiratory: Reports dyspnea Neurologic Neurologic: Reports headache(s) and Denies weakness Endocrine Endocrine: Reports fatigue [facility] Medical History Acute confusion due to infection Acute pain due to trauma Acute UTI Adenoma of pituitary benign; renoved surgically on steroids and synthroid to replete Bacteremia Citrobacter C. difficile diarrhea Cancer related pain improved with fentanyl patch Carpal tunnel syndrome Chronic adrenal insufficiency Chronic pain Chronic respiratory failure with hypoxia Chronic venous stasis dermatitis COPD (chronic obstructive pulmonary disease) On nocturnal oxygen - 2L prn Depression Diabetes mellitus Insulin dependent Discharge planning issues Diverticulosis DNI (do not intubate) DNR (do not resuscitate) Dyslipidemia E. coli bacteremia Encounter for hospice care discussion Fatigue Goals of care, counseling/discussion History of breast cancer metastatic, with lymphatic spread and bone mets Hyperlipidemia Hypopituitarism Hypothyroidism Influenza B Iron deficiency anemia Left lower lobe pneumonia Metastatic breast cancer Obstructive sleep apnea per [facility] records Palliative care patient Pneumonia POLST (Physician Orders for Life-Sustaining Treatment) done 03/26/19; DNR/DNI Positive blood cultures Pulmonary emboli Recurrent urinary tract infection Restless leg syndrome SOB (shortness of breath) Spinal stenosis Stage IV breast cancer in female Toxic metabolic encephalopathy Uncontrolled pain Unsteady gait Urinary incontinence UTI (urinary tract infection) Surgical History H/O bilateral mastectomy H/O colonoscopy with polypectomy H/O mastectomy bilateral History of carpal tunnel release of both wrists Port-A-Cath in place Status post transsphenoidal pituitary resection Family History Father , age 83 from complications of diabetes Prostate cancer Diabetes Mother , age 79 from complications of Crohn's disease and colitis Crohn's disease Colitis Daughter No problems noted. Daughter No problems noted. Brother Arthritis severe Obesity Sister Diabetes Obesity Sister No problems noted. Sister No problems noted. Social History Smoking/Tobacco Use Status: Former Tobacco Use Alcohol Intake: never Drug use: Never Substance use type: does not use Caregiver/Support person: Yes Household members: children Number of Children: 2 Communication Needs: Hard of Hearing and Corrective Lenses Education Level: middle school Do you need help understanding health information?: Always current occupation: on disability Pets and animals: Yes (4 cats, 3 dogs, 1 bird, 6 hermit crabs) Pets and animals: cat(s), dog(s), bird(s) and other Details: hermit crabs Current gender identity: female What is your relationship status?: How often do you talk on the phone with friends or family?: once per week How often do you get together with friends or relatives?: three or more times per week Panel score (0-1 are the most socially isolated patients): 1 What type of physical activity do you participate in: none, sedentary lifestyle, wheelchair-bound and additional Details: needs a new wheelchair, cannot walk far, just a few steps Special pedro pablo needs: No Seatbelt use: always Working smoke detector in home: Yes Fire extinguisher in home: Yes Firearms in home: No Do you feel safe at home: Yes Do you feel safe in your relationship?: Yes Additional Social history: , with 2 children. 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 She is not currently working and is on disability. Has a history of tobacco, quit in 1992. Reports rare use of alcohol only. Lives with daughter Bhargavi in [place], and her other daughter is close. Uses a walker to ambulate. Hard to do recently, depending more on WC. In a lot of pain. Recent scans show progression of breast cancer. Exam Const General: cooperative and no acute distress HENMD Head: normocephalic and atraumatic Mouth: moist mucous membranes Eyes Conjunctivae: normal conjunctivae Sclera: normal sclerae Neck Neck: trachea midline and supple Resp Effort & Inspection: not labored and no respiratory distress Auscultation: rales, rhonchi and no wheezes Cardio Jugular venous pressure: no JVD Rate: regular rate and not tachycardic Rhythm: regular rhythm GI Palpation: soft, not firm, no guarding, no masses, not rigid and nontender Other: alex intact Skin General skin exam: no rashes or lesions noted Neuro General: patient alert, patient awake, patient oriented x3 and tone normal Extrem General: edema Laterality: bilateral Psych Appearance: grossly normal Course Vital Signs Vital signs: Vital Signs Temperature 36.3 C L 11/26/19 13:39 Pulse 87 11/26/19 13:39 Respiratory Rate 16 11/26/19 13:39 Blood Pressure 125/55 L 11/26/19 13:39 Pulse Oximetry 95 11/26/19 13:39 Temperature 36.3 C L 11/26/19 13:39 Temperature Source Tympanic 11/26/19 13:39 Pulse 87 11/26/19 13:39 Respiratory Rate 16 11/26/19 13:39 Respiratory Effort 11/26/19 13:44 Blood Pressure 125/55 L 11/26/19 13:39 Blood Pressure Position Supine 11/26/19 13:39 Pulse Oximetry 95 11/26/19 13:39 Oxygen Delivery Method Room Air 11/26/19 13:39 Oxygen Flow Rate 0 11/26/19 13:39 Pain Level 7 11/26/19 13:39
[2019-11-26 14:08] LABS: Abs Immature Grans 0.02 10^3/uL (0.0-0.06); Absolute Basophil Count 0.01 10^3/uL (0.0-0.2); Absolute Eosinophil Count 0.05 10^3/uL (0.0-0.7); Absolute Lymphocyte Count 0.85 10^3/uL (1.2-3.4); Absolute Monocyte Count 0.32 10^3/uL (0.1-0.8); Absolute Neutrophil Count 3.79 10^3/uL (1.2-6.7); Basophils % 0.2; HCT 24.9 % (36.0-46.0); HGB 7.5 g/dL (11.2-15.7); Immature Grans % 0.4; Lymphocytes % 16.9; MCH 26.3 pg (27.0-33.0); MCHC 30.1 % (32.0-36.0); MCV 87.4 fL (80-95); MPV 9.4 fL (8.0-11.0); Monocytes % 6.3; Neutrophils % 75.2; Nucleated RBC 0 %; Platelet Count 145 10^3/uL (130-400); RBC 2.85 10^6/uL (3.93-5.22); RDW 16.9 % (11.7-14.6); RDW-SD 53.7 fL; WBC 5.04 10^3/uL (4.4-10.8)
[2019-11-26 14:23] LABS: ALT 75 U/L (14-59); AST 114 U/L (15-37); Albumin 2.5 g/dL (3.4-5.0); Alkaline Phosphatase 228 U/L (46-116); Anion Gap 4.1 mmol/L (3-11); BUN 13 mg/dL (7-18); Bilirubin, Total 0.6 mg/dL (0.2-1.0); CO2 32.9 mmol/L (21.0-32.0); CREATININE 0.75 mg/dL (0.55-1.02); Calcium 8.7 mg/dL (8.5-10.1); Chloride 101 mmol/L (98-107); Glucose 122 mg/dL (74-106); Potassium 4.5 mmol/L (3.5-5.1); Sodium 138 mmol/L (136-145)
[2019-11-26 14:32] LABS: NT-proBNP 2282 pg/mL (<300)
[2019-11-26 14:33] LABS: Troponin I < 0.05 ng/mL (<0.06)
--- NOTE | 2019-11-26 15:02 | DI.CT_ITS ---
EXAM: CT HEAD WO CLINICAL HISTORY: Severe headache. TECHNIQUE: Imaging Protocol: Axial computed tomography images with coronal and sagittal reformatted images were created and reviewed COMPARISON: CT CT HEAD WO from 09/09/2019 FINDINGS: Ventricles and Extra axial spaces: Normal in size and morphology for the patient's age. Hemorrhage: None. Cerebral parenchyma: There are areas of decreased attenuation in the white matter most consistent wit h small vessel ischemic disease. No acute territorial infarct. Midline shift: None. Brainstem/Cerebellum: Normal. Calvarium: Normal. Visualized Paranasal sinuses/Mastoids: Prior sinus surgery. Mild mucosal thickening in the ethmoid c avity. Soft Tissues: Unremarkable. IMPRESSION: No acute intracranial process. Findings were discussed with the emergency department on the date of the examination. RADIATION DOSE DELIVERED: 866.98mGy.cm Total DLP DATA REPOSITORY: All CT scans at this facility are submitted to the National Radiology Data Registry (NRDR) Dose Index Registry (DIR) with the [employer] ([employer]). RADIATION OPTIMIZATION: All CT scans at this facility use at least one of these dose optimization te chniques: automated exposure control; mA and/or kV adjustment per patient size (includes targeted exa ms where dose is matched to clinical indication); or iterative reconstruction.
[2019-11-26] MEDS: Normal Saline Flush 10 ML SYR IVP (16:07)
[2019-11-26] MEDS: Furosemide 20 MG/2 ML VIAL IVP (16:07)
[2019-11-26] MEDS: cefTRIAXone 1 GM/50 ML BAG IVPB (16:45)
--- NOTE | 2019-11-26 19:15 | HPE_ITS ---
Date of service: 11/26/19 Time of Service: 19:15 Assessment and Plan Assessment and plan (1) UTI (urinary tract infection): Status: Acute Assessment and plan: She has a chronic indwelling Mendoza catheter. The urinalysis is suggestive of a urinary tract infection and given her acute mental status changes she is being treated empirically for a urinary tract infection. She was given ceftriaxone 1 g IV in the ER and will continue that an acute 24- hour basis. Urine culture is pending (2) Acute pain due to trauma: Status: Acute Assessment and plan: She has been on a Dilaudid infusion because of the pelvic fracture. There are conflicting stories as to whether she is overly medicated. Her pain appears to be well controlled and she is able to attend reasonably well. We will continue the Dilaudid infusion at 1.5 mg/h with a 1 mg bolus available for breakthrough pain. Will ask palliative care to consult again regarding her chronic pain and acute pain issues. Given she has widespread bony metastases I think pain control is essential at this juncture. (3) Pelvic fracture: Status: Acute Assessment and plan: Her pelvic fracture is stable and nonoperative. Pain control is the main modality at this point. It is unclear how well healing is going to occur given it is related to bony metastases in that region. Qualifiers: Encounter type: initial encounter Pelvic bone location: ilium Fracture type: closed Fracture morphology: unspecified fracture morphology Fracture alignment: displaced Laterality: right Qualified Code(s): S32.301A - Unspecified fracture of right ilium, initial encounter for closed fracture (4) Fatigue: Status: Chronic Assessment and plan: Certainly her fatigue and lack of general reality could be related to the Dilaudid infusion. I suspect this is all related to the burden of her disease and the infused opiates. We will continue to monitor. We can back off on the Dilaudid if needed. (5) Stage IV breast cancer in female: Status: Chronic Assessment and plan: She has stage IV breast cancer. She apparently is still actively taking modulating medications. They are ordering them from [place]. We will hold on her oral chemotherapy medications for now given her debilitated state and the acute infection. Will ask palliative care to weigh in as the patient was contemplating going on hospice care. (6) Hypopituitarism: Status: Chronic Assessment and plan: Patient has apparent adrenal insufficiency. Her vital signs are stable. We will continue on the hydrocortisone at her usual outpatient dosing. (7) Diabetes mellitus: Status: Chronic Assessment and plan: She is insulin-dependent and on 3 times daily Humulin RU 500. Will check blood sugars before meals. Monitor for low blood sugars. Qualifiers: Diabetes mellitus type: type 2 Diabetes mellitus terminal make up operator insulin use: with terminal make up operator use Diabetes mellitus complication status: with kidney complications Diabetes mellitus complication detail: with chronic kidney disease Chronic kidney disease stage: stage 3 (moderate) Qualified Code(s): E11.22 - Type 2 diabetes mellitus with diabetic chronic kidney disease; N18.3 - Chronic kidney disease, stage 3 (moderate); Z79.4 - snf (current) use of insulin (8) Discharge planning issues: Status: Acute Assessment and plan: Patient is clearly DNR DNI with stage IV breast cancer. She is contemplating going on hospice care. Will ask palliative care to weigh in. We will continue with IV antibiotic treatment for potential UTI and continue to monitor on the intravenous opiate therapy. History of Present Illness History of Present Illness Chief Complaint: Urinary tract infection/stage IV breast cancer/pathologic pelvic fracture Narrative: This is a 59-year-old woman with stage IV breast cancer with metastases to bone that was just discharged from [facility] on 11/19/2019. She had suffered a pathologic fracture of the right iliac crest. She was discharged on an IV Dilaudid infusion. Patient was seen in the emergency room yesterday because of increasing somnolence. Her Dilaudid infusion was held for a few hours. [facility] saw her in follow-up a few hours later and she seemed to be about at baseline. Today she presented via EMS because of altered mental status. She was found to be moderately hypoxic, sleepy, sedated on initial exam. She was responsive to verbal stimuli. Work-up included a urinalysis which showed a moderate urinary tract infection. She was given IV ceftriaxone. Arrangements were made for her to be admitted for further monitoring and therapy. Her daughter states that her chemotherapeutic agents are on order they are expecting a package on Friday. She has been without her usual chemotherapeutic agents for several days now. Her anticoagulation using Lovenox was discontinued by Dr. Walden. A recent CT angiogram showed no evidence of a pulmonary embolism. Review of Systems Narrative: Patient is able answer questions. Her pain seems reasonably well controlled. She is not complaining of any chest pain or shortness of breath. She does say that her lungs are crackling. She had no abdominal discomfort. She does have some pain in the pelvic region that appears to be under good control. She has a Mendoza catheter that was in at the time of her discharge last week. Her lower extremities are not causing her any discomfort. [facility] Medical History Acute confusion due to infection Acute pain due to trauma Acute UTI Adenoma of pituitary benign; renoved surgically on steroids and synthroid to replete Bacteremia Citrobacter C. difficile diarrhea Cancer related pain improved with fentanyl patch Carpal tunnel syndrome Chronic adrenal insufficiency Chronic pain Chronic respiratory failure with hypoxia Chronic venous stasis dermatitis COPD (chronic obstructive pulmonary disease) On nocturnal oxygen - 2L prn Depression Diabetes mellitus Insulin dependent Discharge planning issues Diverticulosis DNI (do not intubate) DNR (do not resuscitate) Dyslipidemia E. coli bacteremia Encounter for hospice care discussion Fatigue Goals of care, counseling/discussion History of breast cancer metastatic, with lymphatic spread and bone mets Hyperlipidemia Hypopituitarism Hypothyroidism Influenza B Iron deficiency anemia Left lower lobe pneumonia Metastatic breast cancer Obstructive sleep apnea per [facility] records Palliative care patient Pneumonia POLST (Physician Orders for Life-Sustaining Treatment) done 03/26/19; DNR/DNI Positive blood cultures Pulmonary emboli Recurrent urinary tract infection Restless leg syndrome SOB (shortness of breath) Spinal stenosis Stage IV breast cancer in female Toxic metabolic encephalopathy Uncontrolled pain Unsteady gait Urinary incontinence UTI (urinary tract infection) Surgical History H/O bilateral mastectomy H/O colonoscopy with polypectomy H/O mastectomy bilateral History of carpal tunnel release of both wrists Port-A-Cath in place Status post transsphenoidal pituitary resection Family History Father , age 83 from complications of diabetes Prostate cancer Diabetes Mother , age 79 from complications of Crohn's disease and colitis Crohn's disease Colitis Daughter No problems noted. Daughter No problems noted. Brother Arthritis severe Obesity Sister Diabetes Obesity Sister No problems noted. Sister No problems noted. Social History Smoking/Tobacco Use Status: Former Tobacco Use Alcohol Intake: never Drug use: Never Substance use type: does not use Caregiver/Support person: Yes Household members: children Number of Children: 2 Communication Needs: Hard of Hearing and Corrective Lenses Education Level: middle school Do you need help understanding health information?: Always current occupation: on disability Pets and animals: Yes (4 cats, 3 dogs, 1 bird, 6 hermit crabs) Pets and animals: cat(s), dog(s), bird(s) and other Details: hermit crabs Current gender identity: female What is your relationship status?: How often do you talk on the phone with friends or family?: once per week How often do you get together with friends or relatives?: three or more times per week Panel score (0-1 are the most socially isolated patients): 1 What type of physical activity do you participate in: none, sedentary lifestyle, wheelchair-bound and additional Details: needs a new wheelchair, cannot walk far, just a few steps Special pedro pablo needs: No Seatbelt use: always Working smoke detector in home: Yes Fire extinguisher in home: Yes Firearms in home: No Do you feel safe at home: Yes Do you feel safe in your relationship?: Yes Additional Social history: , with 2 children. 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 She is not currently working and is on disability. Has a history of tobacco, quit in 1992. Reports rare use of alcohol only. Lives with daughter Bhargavi in [place], and her other daughter is close. Uses a walker to ambulate. Hard to do recently, depending more on WC. In a lot of pain. Recent scans show progression of breast cancer. Meds Home Medications and Allergies Home Medications Medication Instructions Recorded Confirmed Type Spiriva Respimat 1 puff INHALATION DAILY 04/03/17 11/26/19 History budesonide-formoterol [Symbicort] 2 puff INHALATION BID 04/03/17 11/26/19 History cyanocobalamin (vitamin B-12) 1,000 mcg PO DAILY 04/03/17 11/26/19 History [Vitamin B-12] folic acid 1 mg PO DAILY 04/03/17 11/26/19 History montelukast [Singulair] 10 mg PO DAILY 04/03/17 11/26/19 History ondansetron HCl [Zofran] 8 mg PO TID PRN 04/03/17 11/26/19 History Trulicity 1.5 mg SUBCUT QWEEK 05/06/18 11/26/19 History levothyroxine 150 mcg PO DAILY 05/06/18 11/26/19 History Glucagon (HCl) Emergency Kit 1 mg PRN PRN 07/25/19 11/26/19 History Humulin R U-500 (Conc) Kwikpen 40 unit SUBCUT QNOON 07/25/19 11/26/19 History Humulin R U-500 (Conc) Kwikpen 40 unit SUBCUT QPM 07/25/19 11/26/19 History Humulin R U-500 (Conc) Kwikpen 70 unit SUBCUT QAM 07/25/19 11/26/19 History Narcan 1 spray INTRANASAL PRN PRN 07/25/19 11/26/19 History cranberry 450 mg PO DAILY 07/25/19 11/26/19 History ferrous sulfate 325 mg PO DAILY 07/25/19 11/26/19 History omeprazole 40 mg PO DAILY 07/25/19 11/26/19 History Lactobacillus acidophilus 1,000 mmu cells PO BID #30 cap 08/01/19 11/26/19 Rx hydrocortisone 5 mg PO DAILY@1500 #0 tab 08/24/19 11/26/19 Rx hydrocortisone 20 mg PO DAILY #0 tab 08/24/19 11/26/19 Rx denosumab 120 mg/1.7 mL (70 mg/mL) 120 mg SC Q4W #1.7 ml 10/19/19 11/26/19 Rx subcutaneous solution exemestane 25 mg tablet 25 mg PO DAILY #90 tab 10/19/19 11/26/19 Rx Afinitor 10 mg PO DAILY 11/03/19 11/26/19 History atorvastatin 40 mg PO HS 11/04/19 11/26/19 History pregabalin 200 mg PO TID 11/04/19 11/26/19 History tolterodine 4 mg PO DAILY 11/04/19 11/26/19 History Dificid 200 mg PO BID #10 tab 11/09/19 11/26/19 Rx ammonium lactate 0 g TOPICAL BID #14 oz 11/09/19 11/26/19 Rx enoxaparin 40 mg SUBCUT DAILY #30 ml 11/21/19 11/26/19 Rx cephalexin 500 mg PO BID 7 Days #14 tab 11/25/19 Rx Allergies Allergy/AdvReac Type Severity Reaction Status Date / Time bee venom protein (honey bee) Allergy Unknown Unverified 11/26/19 16:40 adhesive tape AdvReac Mild Unverified 11/26/19 16:40 Latex, Natural Rubber AdvReac Mild Unverified 11/26/19 16:40 Exam Narrative Exam Narrative: On exam she is fiddling with her cell phone and asked me to plug it in for her. She was going through her belongings in an overnight bag. She did seem a little spacey but was awake and alert and did attempt to answer ques tions. She did not joke around as her daughter said she normally does. Her lungs sounded completely clear to auscultation on the right and left. Her heart sounds were regular and strong. Her abdomen was quite massively obese but overall nontender to palpation. She did have some discomfort in the pelvic region to light palpation. Her lower extremities appear to be well perfused. She did have hemosiderin deposits in both lower ankles in approximately the lower 25%. There were no open sores or any skin breakdown. Neurologically she could move all extremities and would cooperate with exam. Results Labs Result diagrams: 11/26/19 14:00 11/26/19 14:00 Labs: Laboratory Results - last 24 hr 11/26/19 11/26/19 11/26/19 14:00 14:00 14:00 WBC 5.04 RBC 2.85 L Hgb 7.5 L Hct 24.9 L MCV 87.4 MCH 26.3 L MCHC 30.1 L RDW 16.9 H Plt Count 145 MPV 9.4 Immature Gran % 0.4 Neutrophils % 75.2 Lymphocytes % 16.9 Monocytes % 6.3 Eosinophils % 1.0 Basophils % 0.2 Nucleated RBC % 0 Absolute Neutrophils 3.79 Absolute Lymphocytes 0.85 L Absolute Monocytes 0.32 Absolute Eosinophils 0.05 Absolute Basophils 0.01 Sodium 138 Potassium 4.5 Chloride 101 Carbon Dioxide 32.9 H Anion Gap 4.1 BUN 13 Creatinine 0.75 Estimated GFR/1.73 m2 >= 60.00 Glucose 122 H Calcium 8.7 Total Bilirubin 0.6 AST 114 H ALT 75 H Alkaline Phosphatase 228 H Troponin I < 0.05 NT-Pro-B Natriuret Pep 2282 H Total Protein 7.0 Albumin 2.5 L Last Vital Signs Temp 35.9 C L 11/26/19 17:52 Pulse 82 11/26/19 17:52 Resp 19 11/26/19 17:52 BP 132/75 11/26/19 17:52 Pulse Ox 96 11/26/19 17:52 COVID-19 Screening Have you,or household,traveled outside OR in last 14 days?: No Had IN PERSON contact w/suspected or confirmed C-19 person: No
[2019-11-26 19:57] LABS: Troponin I < 0.05 ng/mL (<0.06)
[2019-11-26] MEDS: Pregabalin 100 MG CAP 200 MG PO (19:59)
[2019-11-26] MEDS: Atorvastatin 40 MG TAB PO (22:41)
[2019-11-27] VITALS (7 sets, daily range): BP systolic 125–150; BP diastolic 62–77; PULSE 77–89; RESP 17–18; TEMP 35.8–37; O2SAT 96–99
[2019-11-27] MEDS: Levothyroxine 150 MCG TAB PO (06:30)
[2019-11-27 07:34] LABS: COVID-19 RT-PCR UVMMC Result Negative (Negative)
[2019-11-27] MEDS: Budesonide/Formoterol 160/4.5 6 GM 60 PUFF INH IH ×2 (08:38→20:53)
[2019-11-27] MEDS: Tiotropium Bromide-Respimat 10 PUFF INH IH (08:38)
[2019-11-27] MEDS: Omeprazole 20 MG CAPCR 40 MG PO (08:40)
[2019-11-27] MEDS: Hydrocortisone 10 MG TAB 20 MG PO (08:40)
[2019-11-27] MEDS: Lachydrin 12% LOTION 225 GM BTL TP ×2 (08:40→20:52)
[2019-11-27] MEDS: Pregabalin 100 MG CAP 200 MG PO ×3 (08:45→20:50)
[2019-11-27 09:12] LABS: Abs Immature Grans 0.02 10^3/uL (0.0-0.06); Absolute Lymphocyte Count 1.14 10^3/uL (1.2-3.4); Absolute Monocyte Count 0.37 10^3/uL (0.1-0.8); Absolute Neutrophil Count 2.23 10^3/uL (1.2-6.7); Eosinophils % 2.6; HCT 25.5 % (36.0-46.0); HGB 7.7 g/dL (11.2-15.7); Immature Grans % 0.5; Lymphocytes % 29.5; MCH 26.6 pg (27.0-33.0); MCHC 30.2 % (32.0-36.0); MCV 88.2 fL (80-95); MPV 9.5 fL (8.0-11.0); Monocytes % 9.6; Neutrophils % 57.8; Nucleated RBC 0 %; Platelet Count 158 10^3/uL (130-400); RBC 2.89 10^6/uL (3.93-5.22); RDW 16.1 % (11.7-14.6); RDW-SD 51.7 fL; WBC 3.86 10^3/uL (4.4-10.8)
[2019-11-27 09:23] LABS: Anion Gap 3.9 mmol/L (3-11); BUN 13 mg/dL (7-18); CO2 35.1 mmol/L (21.0-32.0); CREATININE 0.78 mg/dL (0.55-1.02); Calcium 8.9 mg/dL (8.5-10.1); Chloride 99 mmol/L (98-107); Glucose 92 mg/dL (74-106); Potassium 3.9 mmol/L (3.5-5.1); Sodium 138 mmol/L (136-145)
--- NOTE | 2019-11-27 10:22 | INITIAL_ITS ---
- If Service Date Differs Date of service: 11/27/19 Time of Service: 10:22 Care Management Initial Assess REASON FOR HOSPITALIZATION:: UTI PAST MEDICAL HISTORY/PAST SURGICAL HISTORY:: Medical History . Acute confusion due to infection. Acute pain due to trauma. Acute UTI. Adenoma of pituitary. benign; renoved surgically. on steroids and synthroid to replete. Bacteremia. Citrobacter. C. difficile diarrhea. Cancer related pain. improved with fentanyl patch. Carpal tunnel syndrome. Chronic adrenal insufficiency. Chronic pain. Chronic respiratory failure with hypoxia. Chronic venous stasis dermatitis. COPD (chronic obstructive pulmonary disease). On nocturnal oxygen - 2L prn. Depression. Diabetes mellitus. Insulin dependent. Discharge planning issues. Diverticulosis. DNI (do not intubate). DNR (do not resuscitate). Dyslipidemia. E. coli bacteremia. Encounter for hospice care discussion. Fatigue. Goals of care, counseling/discussion. History of breast cancer. metastatic, with lymphatic spread and bone mets. Hyperlipidemia. Hypopituitarism. Hypothyroidism. Influenza B. Iron deficiency anemia. Left lower lobe pneumonia. Metastatic breast cancer. Obstructive sleep apnea. per [facility] records. Palliative care patient. Pneumonia. POLST (Physician Orders for Life-Sustaining Treatment). done 03/26/19; DNR/DNI. Positive blood cultures. Pulmonary emboli. Recurrent urinary tract infection. Restless leg syndrome. SOB (shortness of breath). Spinal stenosis. Stage IV breast cancer in female. Toxic metabolic encephalopathy. Uncontrolled pain. Unsteady gait. Urinary incontinence. UTI (urinary tract infection). Surgical History . H/O bilateral mastectomy. H/O colonoscopy with polypectomy. H/O mastectomy. bilateral. History of carpal tunnel release of both wrists. Port-A-Cath in place. Status post transsphenoidal pituitary resect PREVIOUS FUNCTIONAL STATUS/SOCIAL/FAMILY SUPPORTS:: Candace lives in a single family home with her daughter Kiki and her children, in [facility]. She has two daughters who reside locally. She is currently disabled and receives [facility] highest needs. Kiki is her primary caregiver. Candace has utilized a walker for ambulation, and a wheeled walker for distance, however since her recent pelvic fracture she has been bedbound. She has been dependent on her daughter for transportation to and from appointments, however at thispoint she may require EMS transport. CURRENT FUNCTIONAL STATUS:: Candace was sitting up in bed when CM met with her. When asked how she was , Candace responded tired, dizzy and weak. She was flushed and appeared to be as tired as she stated. A brief conversation was held again about her goals of care but Candace does not seem to be sure what she wants. She recently stated she did not want any more chemo but today is vacillating. The BRAID CUTTER also had a similar discussion with her about this and her comments indicated that she might be looking for a modified NEUROSCIENCE DIRECTOR NA approach. CM will meet with Candace and Kiki tomorrow with the palliative MULTIFOCAL BUTTON INSPECTOR to further elucidate what her true wishes are. ADVANCE DIRECTIVES:: On file. [facility] mandy Burk Has patient been provided with info about the portal/API?: Yes Did the patient sign up for the portal?: No CODE STATUS:: DNR/DNI INSURANCE COVERAGE / FINANCIAL ISSUES:: Medicare, Medicaid ([facility] highest needs) CURRENT HOME/COMMUNITY SERVICES/EQUIPMENT:: hospital bed, commode, w/c, walker, Home health nursing, CAD pump for pain control. [facility] highrest needs- daughter Kiki caregiver PRIMARY CARE PHYSICIAN:: Nurys Martinez. Dr. Walden Oncologist who sees her frequently as well POTENTIAL DISCHARGE NEEDS:: Pain control, continued home health, follow up with providers PATIENT/FAMILY EDUCATION NEEDS:: Discharge and follow up plans, limitations, Ask Me Three TRANSPORTATION:: via ambulance to be coordinated by CM PLAN:: Candace will return home with a resumption of services. She will follow up with her PCP and Oncologist and plan of care and transport via ambulance. CM will continue to support Candace and her family and their discharge planning needs. Readmission - Within the Past 30 Days Yes or No: Y - Date of First Admission Date of 1st Admission: 11/15/19 - Date of this Admission Date of Admission: 11/26/19 - Office Visit Since 1st Admission Have you seen your PCP in the office since discharge?: No Date of PCP Appointment: seen at home by Oncologist on 11/25/19 - I. Interview patient and/or Family Difficulty reaching your doctor or getting an office appt?: No Have you had trouble purchasing/ or taking medication?: Yes Describe barriers fpr purchasing or taking medication: upon discharge, confusion over Lovenox dosing caused delay in obtaining medication How do you take your medications and set up your pills?: daughter helps Have you had trouble with getting meals at home?: No Did you feel ready for discharge when you left the last time: Yes Were services received that you thought were set up on disch: Yes What services were received?: Home health nursing - CAD pump Did you call your physician beore you came to the ED?: No How do you think you became sick enough to come back?: chronically ill with terminal illness - If the patient had a VNA ordered Did the patient have a VNA order?: Yes Did you call the VNA before you came?: No Did the VNA tell you to come to the hospital?: No Do you know if the VNA called your physician?: No - If the patient had home care service Call them to discuss the patient's admission: Candace has been failing at home. Became somnolent on dilaudid drip, dosing adj usted - Ask the Care Team Members: What do you think caused the patient to be readmitted: Multiple medical problems in terminally ill woman - ED visits How many ED visits in the past 12 months: 18 - Assessment for Readmission Summary of readmission circumstances, based upon interviews: Candace has been battling breast cancer with bony metastasis for the past 4 years. She has chronic UTIs and has had 18 ED visits in the past year with 13 of those resulting in admission.
[2019-11-27] MEDS: Insulin Aspart 300 UNITS/3 ML PEN SC (12:42)
--- NOTE | 2019-11-27 14:18 | PGE_ITS ---
Date of Service Date of service: 11/27/19 Time of Service: 14:19 Assessment and Plan Assessment and plan (1) UTI (urinary tract infection): Start date: 11/27/19 Start time: 14:22 Status: Acute Assessment and plan: Candace made it clear that she does not want aggressive treatment. Will continue anbtx. She does want comfort measures but still questions hospice. Will do modified treatment no lab draws, palliative consult. Continue to assess [place] readiness. She had recent fracture giving her months to live. (2) Pelvic fracture: Start date: 11/27/19 Start time: 14:24 Status: Acute Assessment and plan: Her pelvic fracture is stable and nonoperative. Pain control is the main modality at this point. It is unclear how well healing is going to occur given it is related to bony metastases in that region. Qualifiers: Encounter type: initial encounter Pelvic bone location: ilium Fracture type: closed Fracture morphology: unspecified fracture morphology Fracture alignment: displaced Laterality: right Qualified Code(s): S32.301A - Unspecified fracture of right ilium, initial encounter for closed fracture (3) Acute pain due to trauma: Start date: 11/27/19 Start time: 14:25 Status: Acute Assessment and plan: Continue diluadid infusion. 0.7 mg/hr at home, will decrease to this dose. It appeared to do well with her. Pain controlled. Palliative consulted, as above (4) Fatigue: Start date: 11/27/19 Start time: 14: Status: Chronic Assessment and plan: This is likely due to her disease. Qualifiers: Fatigue type: due to neoplasm Qualified Code(s): R53.0 - Neoplastic (malignant) related fatigue (5) Stage IV breast cancer in female: Start date: 11/27/19 Start time: 14: Status: Chronic Assessment and plan: With mets. She does not want to do chemo per our conversation this afternoon she also wants minimal treatment. (6) Hypopituitarism: Start date: 11/27/19 Start time: 14:27 Status: Chronic Assessment and plan: Patient has apparent adrenal insufficiency. Her vital signs are stable. Does not appear to be insufficient. We will continue on the hydrocortisone at her usual outpatient dosing. (7) Diabetes mellitus: Start date: 11/27/19 Start time: 14:27 Status: Chronic Assessment and plan: She is insulin-dependent and on 3 times daily Humulin RU 500. Will check blood sugars before meals. Monitor for low blood sugars. Qualifiers: Diabetes mellitus type: type 2 Diabetes mellitus [facility] insulin use: with [facility] use Diabetes mellitus complication status: with kidney complications Diabetes mellitus complication detail: with chronic kidney disease Chronic kidney disease stage: stage 3 (moderate) Qualified Code(s): E11.22 - Type 2 diabetes mellitus with diabetic chronic kidney disease; N18.3 - Chronic kidney disease, stage 3 (moderate); Z79.4 - senior living (current) use of insulin (8) Discharge planning issues: Start date: 11/27/19 Start time: 14:28 Status: Acute Assessment and plan: Patient is clearly DNR DNI with stage IV breast cancer and mets. She is contemplating going on hospice care. Will ask palliative care to weigh in. We will continue with IV antibiotic treatment for potential UTI and continue to monitor on the intravenous opiate therapy. above case discussed with Dr. Reno who is in agreement Subjective Subjective Patient reports: other Interval history since last seen: Candace is feeling weak and tired. She does not want to have any more poking or prodding. I did speak to her about comfort measures which she was agreeable, but she is still unsure about hospice. Spoke to her about quality of life vs quantity. She is unsure at this time but was very clear she would like to not have aggressive treatment. Will do modified comfort, no lab draws. Exam Const General: cooperative, no acute distress and ill appearing chronically Nutritional Appearance: obese Orientation: alert, awake and oriented x3 HENMT Ears: hearing grossly normal bilaterally Mouth: moist mucous membranes Resp Effort & Inspection: normal respiratory effort Auscultation: clear to auscultation bilaterally Cardio Jugular venous pressure: no JVD Rate: regular rate Rhythm: regular rhythm GI Inspection: large pannus and obesity Auscultation: normal bowel sounds Skin General skin exam: no rashes or lesions noted Neuro General: patient alert, patient awake and patient oriented x3 Cognition: normal cognition Speech: speech normal Objective Last Vital Signs Temp 36.1 C L 11/27/19 12:15 Pulse 89 11/27/19 12:15 Resp 18 11/27/19 12:15 BP 135/69 11/27/19 12:15 Pulse Ox 96 11/27/19 12:15 Laboratory Results - last 24 hr 11/26/19 11/26/19 11/26/19 14:00 14:00 16:35 WBC RBC Hgb Hct MCV MCH MCHC RDW Plt Count MPV Immature Gran % Neutrophils % Lymphocytes % Monocytes % Eosinophils % Basophils % Nucleated RBC % Absolute Neutrophils Absolute Lymphocytes Absolute Monocytes Absolute Eosinophils Absolute Basophils Sodium 138 Potassium 4.5 Chloride 101 Carbon Dioxide 32.9 H Anion Gap 4.1 BUN 13 Creatinine 0.75 Estimated GFR/1.73 m2 >= 60.00 Glucose 122 H Calcium 8.7 Total Bilirubin 0.6 AST 114 H ALT 75 H Alkaline Phosphatase 228 H Troponin I < 0.05 NT-Pro-B Natriuret Pep 2282 H Total Protein 7.0 Albumin 2.5 L COVID-19 PCR Negative Nasopharyn COVID-19 PCR Not Applicable Ref Test Perform Site [facility] lab 11/26/19 11/27/19 11/27/19 19:27 08:50 08:50 WBC 3.86 L RBC 2.89 L Hgb 7.7 L Hct 25.5 L MCV 88.2 MCH 26.6 L MCHC 30.2 L RDW 16.1 H Plt Count 158 MPV 9.5 Immature Gran % 0.5 Neutrophils % 57.8 Lymphocytes % 29.5 Monocytes % 9.6 Eosinophils % 2.6 Basophils % 0.0 Nucleated RBC % 0 Absolute Neutrophils 2.23 Absolute Lymphocytes 1.14 L Absolute Monocytes 0.37 Absolute Eosinophils 0.10 Absolute Basophils 0.00 Sodium 138 Potassium 3.9 Chloride 99 Carbon Dioxide 35.1 H Anion Gap 3.9 BUN 13 Creatinine 0.78 Estimated GFR/1.73 m2 >= 60.00 Glucose 92 Calcium 8.9 Total Bilirubin AST ALT Alkaline Phosphatase Troponin I < 0.05 NT-Pro-B Natriuret Pep Total Protein Albumin COVID-19 PCR Nasopharyn COVID-19 PCR Ref Test Perform Site
[2019-11-27] MEDS: Hydrocortisone 10 MG TAB 5 MG PO (15:03)
[2019-11-27] MEDS: cefTRIAXone 1 GM/50 ML BAG IVPB (15:58)
[2019-11-27] MEDS: Normal Saline Flush 10 ML SYR IVP (15:59)
[2019-11-27] MEDS: Acetaminophen 325 MG TAB 650 MG PO (18:20)
[2019-11-27] MEDS: Ondansetron O.D.T. 4 MG TABEF 8 MG PO (18:21)
[2019-11-27] MEDS: Atorvastatin 40 MG TAB PO (20:51)
[2019-11-28 03:10] VITALS: BP 118/72; PULSE 80; RESP 17; TEMP 36; O2SAT 99
[2019-11-28] MEDS: Levothyroxine 150 MCG TAB PO (05:10)
[2019-11-28 08:00] VITALS: BP 142/71; PULSE 80; RESP 18; TEMP 36.4; O2SAT 97
[2019-11-28] MEDS: Pregabalin 100 MG CAP 200 MG PO ×3 (08:46→20:55)
[2019-11-28] MEDS: Hydrocortisone 10 MG TAB 20 MG PO (08:46)
[2019-11-28] MEDS: Lachydrin 12% LOTION 225 GM BTL TP ×2 (08:46→20:56)
[2019-11-28] MEDS: Omeprazole 20 MG CAPCR 40 MG PO (08:46)
[2019-11-28] MEDS: Tiotropium Bromide-Respimat 10 PUFF INH IH (09:27)
[2019-11-28] MEDS: Budesonide/Formoterol 160/4.5 6 GM 60 PUFF INH IH (09:27)
--- NOTE | 2019-11-28 11:38 | PDOC.CMPRO ---
- If Service Date Differs Date of service: 11/28/19 Time of Service: 11:38 Care Management Progress Note S/O:Candace was sitting up in bed when CM and MAINTENANCE ASSOCIATE Aarti met with her with daughter Kiki on the phone using Face Time. Goals of care were again discussed as Candace and Kiki continues to verbalize ambivalence about continuing chemotherapy and more aggressive treatment vs [employer]. Please see provider Progress Note for details. At the end of the conversation, both Candace and Kiki seemed comfortable with the decisions they made. Chemo will continue for another couple of months at which point a pet scan will be done to evaluate the effectiveness. Candace verbalizes that her pain is well controlled on the Dilaudid drip at 0.7 mg/hr. A: Candace is a pleasant 59 year old woman admitted on 11/26/19 with a UTI P:Candace will return home with a resumption of services. She will follow up with her PCP and Oncologist and plan of care and transport via ambulance. CM will continue to support aCndace and her family and their discharge planning needs.
[2019-11-28 11:50] VITALS: BP 136/76; PULSE 86; RESP 18; TEMP 36; O2SAT 96
[2019-11-28] MEDS: Insulin Aspart 300 UNITS/3 ML PEN SC ×2 (12:15→16:34)
--- NOTE | 2019-11-28 14:43 | PGE_ITS ---
Date of Service Date of service: 11/28/19 Time of Service: 14:43 Assessment and Plan Assessment and plan (1) UTI (urinary tract infection): Start date: 11/27/19 Start time: 14:22 Status: Acute Assessment and plan: Candace prefers a more conservative approach to her care. She is not ready for comfort care or hospice as she just started a new oral chemotherapy medication on 10/12/2019. After discussing her goals with her and her daughter Kiki, Candace would like to continue taking the oral chemo for a couple of months with a follow-up PET scan, per Dr. Walden. She has also been referred to [facility] radiation oncology by Dr. Walden, she plans to attend a telehealth visit to discuss options, however, she does not believe that she would have radiation at this point. Continue antibiotics for urinary tract infection. She is currently on day #3 of ceftriaxone. (2) Pelvic fracture: Start date: 11/27/19 Start time: 14:24 Status: Acute Assessment and plan: Her pelvic fracture is stable and nonoperative. Pain control is the main modality at this point. It is unclear how well healing is going to occur given it is related to bony metastases in that region. Continue pain control with hydromorphone pump. Qualifiers: Encounter type: initial encounter Pelvic bone location: ilium Fracture type: closed Fracture morphology: unspecified fracture morphology Fracture alignment: displaced Laterality: right Qualified Code(s): S32.301A - Unspecified fracture of right ilium, initial encounter for closed fracture (3) Acute pain due to trauma: Start date: 11/27/19 Start time: 14:25 Status: Acute Assessment and plan: As above. Continue diluadid infusion at 0.7 mg/hr at home. Follow-up with palliative care. (4) Fatigue: Start date: 11/27/19 Start time: 14:26 Status: Chronic Assessment and plan: This is likely due to her disease. Qualifiers: Fatigue type: due to neoplasm Qualified Code(s): R53.0 - Neoplastic (ma lignant) related fatigue (5) Stage IV breast cancer in female: Start date: 11/27/19 Start time: 14:26 Status: Chronic Assessment and plan: Yesterday she verbalized that she did not want to continue chemotherapy. Today she is clear that she wants to continue her new oral chemotherapy as above. When questioned what the goal of the chemotherapy is, neither Candace or Kiki are clear on this. They are urged to ask Dr. Katelin seals what the goal is at this point. Follow-up with Dr. Walden as scheduled. Follow-up with Dr. Royal for palliative care. (6) Hypopituitarism: Start date: 11/27/19 Start time: 14: Status: Chronic Assessment and plan: Continue hydrocortisone at her usual outpatient dosing. (7) Diabetes mellitus: Start date: 11/27/19 Start time: 14:27 Status: Chronic Assessment and plan: She is insulin-dependent and on 3 times daily Humulin RU 500. Her blood glucose has been stable. Continue to monitor blood glucose at AC and at bedtime. 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 She would be eligible for hospice, however, she is not ready for hospice at this point. Continue the conversation about goals of care with Candace. Continue a more conservative approach to her care. This case was discussed with Dr. Reno who is in agreement Subjective Subjective Interval history since last seen: Candace was seen in her room with care managers Lauren present and her daughter Kiki present via [employer]. Candace reports that her pain is well controlled with the hydromorphone pump. She denies nausea. She is eating and drinking and tolerating her diet. She denies shortness of breath, coughing, wheezing, chest pain/pressure, palpitations. She endorses some dizziness, which was worse yesterday, mild today. Yesterday, Candace had expressed that she wanted her care directed more towards her comfort and quality of life. She was clear that she preferred not to have blood work done. However, during our meeting today, it is clear that Candace wants to continue her oral chemo medication. She reports that this is a new oral chemo that was started on 10/12/2019. Dr. Walden plans to do a PET scan after a couple of months of therapy. Candace and Kiki are not sure when the PET scan will be yet. Dr. Walden has also referred Candace to [facility] for consideration for radiation treatment. Candace states, I am not going to have it. She states she wants to see what they have to offer. Although Candace wants a more conservative approach to her care, she is not yet ready for comfort measures or hospice as she wants to continue oral chemo to treat her stage IV breast cancer. Her daughter, Kiki reports that she has a lot of support at home. They have a hospital bed with a trapeze. Candace has not been out of bed since she fractured her pelvis, and getting out of bed is not a goal of hers. We discussed what Candace would want if her condition changes abruptly and she is not able to speak for herself. At that point, Candace is clear that she would want to be kept comfortable with pain and symptoms managed. Exam Narrative Exam Narrative: General: 59-year-old female, appears older than stated age, overweight, lying in bed with head of bed elevated. Sleeping initially but awakens easily to verbal stimuli. She appears fatigued, chronically ill, in no acute distress. HEENT: Normocephalic, atraumatic, pupils equal and round, mucous membranes moist, edentulous. Neck: Supple. Cardiovascular: Heart has regular rate and rhythm, 2/6 murmur noted at left sternal border, non-tachycardic. Respiratory: Respirations appear even and unlabored, lungs sound clear on limited anterior and lateral exam. GI: Large, round abdomen,+ bowel sounds, soft, nontender on palpation, nondistended. Extremities: Venous stasis changes noted to bilateral lower extremities. Dressing over ulceration on left lower extremity. Objective Last Vital Signs Temp 36.0 C L 11/28/19 11:50 Pulse 86 11/28/19 11:50 Resp 18 11/28/19 11:50 BP 136/76 11/28/19 11:50 Pulse Ox 96 11/28/19 11:50
[2019-11-28 16:15] VITALS: BP 152/72; PULSE 87; RESP 19; TEMP 36.5; O2SAT 93
[2019-11-28] MEDS: Hydrocortisone 10 MG TAB 5 MG PO (16:34)
[2019-11-28] MEDS: Normal Saline Flush 10 ML SYR IVP (16:34)
[2019-11-28] MEDS: cefTRIAXone 1 GM/50 ML BAG IVPB (16:35)
[2019-11-28 19:55] VITALS: BP 131/74; PULSE 79; RESP 18; TEMP 36.1; O2SAT 97
[2019-11-28] MEDS: Atorvastatin 40 MG TAB PO (20:55)
[2019-11-28 22:55] VITALS: BP 131/67; PULSE 77; RESP 19; TEMP 36.3; O2SAT 96
[2019-11-29 03:35] VITALS: BP 130/76; PULSE 73; RESP 18; TEMP 36.3; O2SAT 97
[2019-11-29] MEDS: Levothyroxine 150 MCG TAB PO (05:39)
[2019-11-29] MEDS: Lachydrin 12% LOTION 225 GM BTL TP ×2 (08:24→20:41)
[2019-11-29] MEDS: Omeprazole 20 MG CAPCR 40 MG PO (08:25)
[2019-11-29] MEDS: Pregabalin 100 MG CAP 200 MG PO ×3 (08:25→20:40)
[2019-11-29] MEDS: Hydrocortisone 10 MG TAB 20 MG PO (08:25)
[2019-11-29 08:30] VITALS: BP 144/74; PULSE 75; RESP 18; TEMP 37; O2SAT 99
[2019-11-29] MEDS: Meclizine 25 MG TAB PO (08:35)
[2019-11-29] MEDS: HYDROmorphone 200 MG in CADD PUMP CASSETTE 1 EACH, Normal Saline 80 ML IV (09:10)
[2019-11-29 09:28] VITALS: O2SAT 97
[2019-11-29] MEDS: Budesonide/Formoterol 160/4.5 6 GM 60 PUFF INH IH ×2 (09:29→20:39)
[2019-11-29] MEDS: Tiotropium Bromide-Respimat 10 PUFF INH IH (09:29)
--- NOTE | 2019-11-29 11:07 | PDOC.CMPRO ---
- If Service Date Differs Date of service: 11/29/19 Time of Service: 11:07 Care Management Progress Note S/O:Candace is alert and engaged at time of CM visit. She will see [facility] care on Friday she is well known to from previous admissions. Candace has expressed over the weekend that she would like to continue, Chemo will continue for another couple of months at which point a pet scan will be done to evaluate the effectiveness. Candace verbalizes that her pain is well controlled on the Dilaudid CADD she will be discharged with the CADD. CM notified [facility] that Candace is in the hospital. A: Candace is a 59 year old female admitted on 11/26/19 with a UTI, with a history of metastatic breast cancer and several admission, most recent fractured pelvis. P:Candace will return home with a resumption of services and highest needs choices for care. She will follow up with her PCP and Oncologist and plan of care and transport via ambulance. will continue to support Candace and her family and their discharge planning needs.
[2019-11-29] MEDS: Insulin Aspart 300 UNITS/3 ML PEN SC ×2 (12:04→16:50)
--- NOTE | 2019-11-29 13:43 | PGE_ITS ---
Date of Service Date of service: 11/29/19 Time of Service: 13:43 Assessment and Plan Assessment and plan (1) UTI (urinary tract infection): Start date: 11/29/19 Start time: 13:58 Status: Acute Assessment and plan: Candace prefers a more conservative approach to her care. She is not ready for comfort care or hospice as she just started a new oral chemotherapy medication on 10/12/2019. After discussing her goals with her and her daughter Kiki, Candace would like to continue taking the oral chemo for a couple of months with a follow-up PET scan, per Dr. Walden. She has also been referred to [facility] radiation oncology by Dr. Walden, she plans to attend a telehealth visit to discuss options, however, she does not believe that she would have radiation at this point. She is on day 4/5 of ceftriaxone. She could be discharged home tomorrow with dificid x 10 days (2) Pelvic fracture: Start date: 11/29/19 Start time: 14:03 Status: Acute Assessment and plan: Her pelvic fracture is stable and nonoperative. Pain control is the main modality at this point. It is unclear how well healing is going to occur given it is related to bony metastases in that region. Qualifiers: Encounter type: initial encounter Pelvic bone location: ilium Fracture type: closed Fracture morphology: unspecified fracture morphology Fracture alignment: displaced Laterality: right Qualified Code(s): S32.301A - Unspecified fracture of right ilium, initial encounter for closed fracture (3) Acute pain due to trauma: Start date: 11/29/19 Start time: 14:03 Status: Acute Assessment and plan: Continue diluadid infusion. 0.7 mg/hr She is doing well with this rate. Pain controlled. Palliative consulted, as above (4) Fatigue: Start date: 11/29/19 Start time: 14:04 Status: Chronic Assessment and plan: This is likely due to her disease. She appears to be looking more worn out. Given her current health and fracture she likely does not have long to live. Qualifiers: Fatigue type: due to neoplasm Qualified Code(s): R53.0 - Neoplastic (malignant) related fatigue (5) Stage IV breast cancer in female: Start date: 11/29/19 Start time: 14:05 Status: Chronic Assessment and plan: With mets. She wants conservative treatment but however wants to continue chemo. (6) Hypopituitarism: Start date: 11/29/19 Start time: 14:06 Status: Chronic Assessment and plan: Patient has apparent adrenal insufficiency. Her vital signs are stable. Does not appear to be insufficient. We will continue on the hydrocortisone at her usual outpatient dosing. (7) Diabetes mellitus: Start date: 11/29/19 Start time: 14:06 Status: Chronic Assessment and plan: She is insulin-dependent and on 3 times daily Humulin RU 500. Will check blood sugars before meals. She did have hypoglycemia overn ight. Insulin regimen readjusted to prevent hypoglycemia. 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 Will ask palliative care to weigh in. We will continue with IV antibiotic treatment for potential UTI and continue to monitor on the intravenous opiate therapy. above case discussed with Dr. Reno who is in agreement Subjective Subjective Patient reports: no new complaints Interval history since last seen: Sitting in bed with HOB elevated, watching tv. Candace looks tired and worn out. She states she feels worn out. She has limited time given her immobilization and hip fracture. This has been discussed with both her and her daughter. She wishes to continue with chemo, but does not want labs drawn. She states she is comfortable at the current rate with her dilaudid pump, will continue this rate. Possible discharge home in am. Exam Narrative Exam Narrative: General: 59-year-old female, appears older than stated age, obese, lying in bed with head of bed elevated. Sleeping initially but awakens easily to verbal stimuli. She appears fatigued, chronically ill, in no acute distress. HEENT: Normocephalic, atraumatic, pupils equal and round, mucous membranes moist, edentulous. Neck: Supple. Cardiovascular: Heart has regular rate and rhythm, 2/6 murmur noted at left sternal border, non-tachycardic. Respiratory: Respirations appear even and unlabored, lungs sound clear on limited anterior and lateral exam. GI: Large, round abdomen,+ bowel sounds, soft, nontender on palpation, nondistended. Extremities: Venous stasis changes noted to bilateral lower extremities. Dressing over ulceration on left lower extremity. Objective Last Vital Signs Temp 37 C 11/29/19 08:30 Pulse 75 11/29/19 08:30 Resp 18 11/29/19 08:30 BP 144/74 H 11/29/19 08:30 Pulse Ox 97 11/29/19 09:28
[2019-11-29] MEDS: Polyethylene Glycol 3350 17 GM PACKET PO (13:56)
[2019-11-29] MEDS: Hydrocortisone 10 MG TAB 5 MG PO (14:49)
[2019-11-29] MEDS: cefTRIAXone 1 GM/50 ML BAG IVPB (15:14)
[2019-11-29 15:40] VITALS: BP 152/67; PULSE 77; RESP 18; TEMP 36.7; O2SAT 96
--- NOTE | 2019-11-29 15:47 | CHAPLAIN ---
Candace and I know each other from previous admissions. Candace said she doesn't remember a lot about coming to the hospital on or Friday. The pain from her pelvic fracture (the reason she was here last) is being controlled by a pump, and that is working well, Candace said. Since she was here last, she said her oncologist, Dr. Walden, made a home visit and after talking with him, Candace agreed to continue taking the new oral chem drug for another couple of months. She said the medication doesn't have any side effects, so she's okay with giving it a couple more months trial. Yesterday she met with THANIA Broussard, from [facility], and again talked about her goals and plans. She is not interested about hospice or [facility] at this point. Tomorrow, Dr. Royal from [facility] will see her. I will continue to visit.
[2019-11-29] MEDS: Water,Injection,Sterile 10 ML VIAL (16:05)
[2019-11-29] MEDS: cefTRIAXone 1 GM VIAL IM (16:06)
--- NOTE | 2019-11-29 16:13 | PHA.REVIEW ---
Pharmacy Admission Review - Admission Clinical Review (Last Reviewed 11/27/19 @ 11:56 by Inocencio Alcazar MD) UTI (urinary tract infection) (Acute) Headache (Acute) Acute pain due to trauma (Acute) Discharge planning issues (Acute) Pelvic fracture (Acute) bee venom protein (honey bee) Allergy (Unknown, Unverified 11/26/19 16:40) adhesive tape Adverse Reaction (Mild, Unverified 11/26/19 16:40) Latex, Natural Rubber Adverse Reaction (Mild, Unverified 11/26/19 16:40) Height 5 ft 9 in Weight 145.8 kg - Renal Dosing Renal Dosing: BUN 13 mg/dL (7-18) 11/27/19 08:50 Creatinine 0.78 mg/dL (0.55-1.02) 11/27/19 08:50 Medications needing adjustments: Reviewed (Crcl ~118.7 mL/min using adjusted body weight. Current meds okay.) - Anticoagulation Anticoagulation: Hgb 7.7 g/dL (11.2-15.7) L 11/27/19 08:50 Hct 25.5 % (36.0-46.0) L 11/27/19 08:50 Plt Count 158 10^3/uL (130-400) 11/27/19 08:50 Creatinine 0.78 mg/dL (0.55-1.02) 11/27/19 08:50 DVT Prohphylaxis: Intervened (Nothing ordered so I checked with the provider and leaving as is for now. Pt. doesnt want anymore bloodwork done per provider.) Therapeutic Anticoagulation: N/A - Opiate Usage Evaluate Pain Scale/Pains Meds: Reviewed Scheduled Bowel Reg ordered if on Opiates?: No (PRN meds ordered) - Relevant Labs Sodium 138 mmol/L (136-145) 11/27/19 08:50 Potassium 3.9 mmol/L (3.5-5.1) 11/27/19 08:50 Chloride 99 mmol/L (98-107) 11/27/19 08:50 Electrolytes, C-Reactive P, ESR: Reviewed - DM Control DM Control: Glucose 92 mg/dL (74-106) 11/27/19 08:50 Finger Stick Blood Glucose 172 Finger Stick Blood Glucose 176 Finger Stick Blood Glucose 59 Finger Stick Blood Glucose 59 Insulin Dosing: Reviewed (has scheduled insulin regular AC and sliding scale aspart ordered) - Heart Failure/HI Heart Failure/HI: Troponin I < 0.05 ng/mL (<0.06) 11/26/19 19:27 NT-Pro-B Natriuret Pep 2282 pg/mL (<300) H 11/26/19 14:00 EF%, MCKENNA's, B-Blockers, Diuretics: Reviewed - BP Control BP Control: Blood Pressure 144/74 If elevated: Reviewed (Was low on admission, has been okay with some intermittent highs since then. No BP meds ordered or on home med list.) - Qtc Review If Elevated: N/A (QTc 460) - IV to PO Switch IV Medications: Reviewed - Home Meds Home Med List reviewed: Reviewed (Multiple anticholinergic meds, recommended to avoid concurrent use. Multiple LICENSED PSYCHOLOGIST MANAGER depressants, recommended to avoid concomitant use when possible. Multiple meds that may enhance hypoglycemia, monitor closely. Separate admin of levothyroxine and ferrous sulfate.) Relevent Home Meds Not ordered & why?: afinitor, cephalexin (has other abx ordered), cranberry, cyanocobalamin, denosumab, enoxaparin (discontinued by outpt provider per H&P), exemastane, ferrous sulfate, folic acid, lactobacillus, montelukast, naloxone (PRN), tolterodine, trulicity. Pt's chemo meds are on order per H&P. - Current meds Current Medication Order Review: Intervened (adjusted insulin regular and omeprazole administration times per med administration time policy.) - Comments Comments/Follow Ups: Watch BP, BG, labs (if done), and for med changes (home meds ordered). Pts own hydromorphone CADD finished today, started on one made by pharmacy. Antibiotic Activity - Pharmacy Antibiotic Review Pharmacy Antibiotic Activity: Abx regimen adjustment (Ceftriaxone changed from IV to IM as pt lost IV access. Two more days left of ceftriaxone. Dificid on order for tomrormicah for C.Diff prophylaxis.)
[2019-11-29 18:50] VITALS: BP 117/60; PULSE 72; RESP 18; TEMP 37.2; O2SAT 95
[2019-11-29] MEDS: Atorvastatin 40 MG TAB PO (20:39)
[2019-11-30] MEDS: Levothyroxine 150 MCG TAB PO (05:35)
[2019-11-30] MEDS: Tiotropium Bromide-Respimat 10 PUFF INH IH (07:58)
[2019-11-30] MEDS: Budesonide/Formoterol 160/4.5 6 GM 60 PUFF INH IH (07:59)
[2019-11-30] MEDS: Pregabalin 100 MG CAP 200 MG PO (08:09)
[2019-11-30] MEDS: Hydrocortisone 10 MG TAB 20 MG PO ×2 (08:10→09:25)
[2019-11-30] MEDS: Omeprazole 20 MG CAPCR 40 MG PO (08:10)
[2019-11-30] MEDS: Lachydrin 12% LOTION 225 GM BTL TP (08:11)
[2019-11-30 08:44] VITALS: BP 134/70; PULSE 77; RESP 20; TEMP 37; O2SAT 98
[2019-11-30] MEDS: Fidaxomicin 200 MG TAB PO (08:56)
--- NOTE | 2019-11-30 10:16 | W.NUTRFU ---
Date of service: 11/30/19 Time of Service: 10:16 Nutritional Follow up NOTE: 59 year old female readmitted with UTI. Long hx of reoccurant UTIs, with Stage 4 metastatic breast cancer with pathological pelvic fracture. Following Diabetic soft bite size diet with adequate intake. Weight has been stable for last 8 weeks, BMI indicates morbid obesity. Will continue to follow. Time Spent in Nutritional Counseling and Treatment: 0 time spent face to face
[2019-11-30 11:06] VITALS: BP 137/69; PULSE 89; RESP 18; TEMP 36.5; O2SAT 98
--- NOTE | 2019-11-30 11:31 | W.PM.DS.N ---
Date of service: 11/30/19 Time of Service: 11:31 DS: Diagnosis Discharge Diagnosis (1) UTI (urinary tract infection): Start date: 11/30/19 Start time: 11:32 Status: Acute Asessment and Plan: Treated with 5 days of ceftriaxone for UTI with positive nitrates urine culture with enterobacter. She will be treated with 10 days prophylactic dificid. (2) Pelvic fracture: Start date: 11/30/19 Start time: 11:36 Status: Acute Asessment and Plan: Found prior to admission. Secondary to mets from Breast ca. Candace admits she does not get out of bed for fear of falling. She is now bed bound, but wishes to continue chemo She is currently on hydromorphone pump for fracture. (3) Acute pain due to trauma: Start date: 11/30/19 Start time: 11:36 Status: Acute Asessment and Plan: Continue pump at 0.7 mg/hr (4) Fatigue: Start date: 11/30/19 Start time: 11:38 Status: Chronic Asessment and Plan: Underlying disease contributing with, bed bound and pain pump (5) Stage IV breast cancer in female: Start date: 11/30/19 Start time: 11:39 Status: Chronic Asessment and Plan: Wants to continue chemo. With pelvic fracture she likely has less than weeks to months to live. above case discussed with Dr. Reno who is in agreement. Discharge Plan Disposition Patient Disposition: HOME W/HOME HEALTH SERVICE Condition: Improving Discharge Details Reason For Visit: CHF, HEADACHE, UTI Admit Date/Time: 11/26/19 17:06 Admit Provider: Puma Ibrahim Attending Provider: Puma Ibrahim Primary Care Provider: ANNA TORO Hospital Course Hospital Course: Urinary tract infection/stage IV breast cancer/pathologic pelvic fracture 59-year-old woman with stage IV breast cancer with metastases to bone that was discharged from [facility] on 11/19/2019. She had suffered a pathologic fracture of the right iliac crest. She was discharged on an IV Dilaudid infusion. Patient was seen in the emergency room day before admission because of increasing somnolence. Her Dilaudid infusion was held for a few hours. Home health saw her in follow-up a few hours later and she seemed to be about at baseline. She presented via EMS because of altered mental status. She was found to be moderately hypoxic, sleepy, sedated on initial exam in the emergency department. She was responsive to verbal stimuli. Work-up included a urinalysis which showed a moderate urinary tract infection. She was given IV ceftriaxone. Arrangements were made for her to be admitted for further monitoring and therapy. Her daughter states that her chemotherapeutic agents are on order they are expecting a package on Friday. She has been without her usual chemotherapeutic agents for several days now. Her anticoagulation using Lovenox was discontinued by Dr. Walden. A recent CT angiogram showed no evidence of a pulmonary embolism. Over course of hospitalization she received po vancomycin for prophylaxis cdiff. She received 5 days of ceftriaxone. Hydromorphone pump continued. Several conversations took place with Candace and her daughter Kiki regarding the seriousness of her pelvic fracture and possibly hospice. She was willing to stay palliative but not willing to go on hospice at this time even though she likely has weeks to months to live. She wanted more conservative treatment while in the hospital. We did follow her wishes and hold lab draws. She Candace is becoming more tired, she does not get out of bed. Her time is limited, especially in setting of pelvic fracture. She is ready to go home. She is being discharged home with resumption of services, nursing.She will be discharged home on our CAD. 0.7 mg/hr. Palliative care will see her in the community and continue to assess her readiness. She denies CP, SOB, N/V/D. She will be sent home with her dose of dificid to finish out the 10 day course. Home Meds and New Rx's Prescriptions: New Dificid 200 mg Tablet 200 mg PO BID Qty: 1 RF: 0 Continued exemestane 25 mg tablet 25 mg PO DAILY Qty: 90 RF: 0 Xgeva 120 mg/1.7 mL (70 mg/mL) solution 120 mg SC Q4W Qty: 1.7 RF: 0 montelukast [Singulair] 10 MG tablet 10 mg PO DAILY RF: 0 cyanocobalamin (vitamin B-12) [Vitamin B-12] 1,000 MCG tablet 1,000 mcg PO DAILY RF: 0 folic acid 1 MG tablet 1 mg PO DAILY RF: 0 Spiriva Respimat 4 GM mist 1 puff Inhalation DAILY RF: 0 budesonide-formoterol [Symbicort] 10.2 GM HFA aerosol inhaler 2 puff Inhalation BID RF: 0 ondansetron HCl [Zofran] 8 MG tablet 8 mg PO TID PRNRF: 0 levothyroxine 150 mcg Tablet 150 mcg PO DAILY RF: 0 Trulicity 1.5 mg/0.5 mL Pen Injector 1.5 mg SUBCUT QWEEK RF: 0 Afinitor 10 mg tablet 10 mg PO DAILY RF: 0 pregabalin 200 mg capsule 200 mg PO TID RF: 0 tolterodine 4 mg capsule,extended release 24hr 4 mg PO DAILY RF: 0 atorvastatin 40 mg tablet 40 mg PO HS RF: 0 ammonium lactate 12 % Lotion 0 g topical BID Qty: 14 RF: 0 Dificid 200 mg Tablet 200 mg PO BID Qty: 10 RF: 0 enoxaparin 40 mg/0.4 mL syringe 40 mg subcut DAILY Qty: 30 RF: 0 cephalexin 500 mg tablet 500 mg PO BID 7 Days Qty: 14 RF: 0 omeprazole 40 mg Capsule,Delayed Release(Dr/Ec) 40 mg PO DAILY RF: 0 ferrous sulfate 325 mg (65 mg iron) Tablet 325 mg PO DAILY RF: 0 cranberry 450 mg Tablet 450 mg PO DAILY RF: 0 Narcan 4 mg/actuation [place],Non-Aerosol 1 spray INTRANASAL PRN PRNRF: 0 Glucagon (HCl) Emergency Kit 1 mg Recon Soln 1 mg PRN PRNRF: 0 Humulin R U-500 (Conc) Kwikpen 500 unit/mL (3 mL) insulin pen 40 unit SUBCUT QNOON RF: 0 Humulin R U-500 (Conc) Kwikpen 500 unit/mL (3 mL) insulin pen 40 unit SUBCUT QPM RF: 0 Humulin R U-500 (Conc) Kwikpen 500 unit/mL (3 mL) insulin pen 70 unit SUBCUT QAM RF: 0 Lactobacillus acidophilus Capsule 1,000 mmu cells PO BID Qty: 30 RF: 0 hydrocortisone 10 mg Tablet 5 mg PO DAILY@1500 Qty: 0 RF: 0 hydrocortisone 5 mg Tablet 20 mg PO DAILY Qty: 0 RF: 0 Discharge Instructions Instructions: Pelvic Fracture (DC) Additional Instructions: Finish dificid. You can take home patient dose. Discharge home with CAD cassette from our facility at 0.7 mg/hr with 60 min 0.5 bolus. Follow up with palliative as an outpatient. Continue HH services. Activity:: Activity as Tolerated Equipment/Supplies:: No Equipment Needed Diet:: Carb Counting Discharge Orders Discharge Orders: Discharge Order (Routine); Ordered 11/30/19 Ordered By: Ami Sanchez DS: Summary Status at Discharge Functional status at discharge: independent ambulation Overall status at discharge: patient is back to baseline Mental Status: mental status grossly normal Speech and Movement: speech and movement normal Mood: congruent mood Affect: normal affect Exam Narrative Exam Narrative: General: 59-year-old female, appears older than stated age, obese, lying in bed with head of bed elevated. She appears fatigued, chronically ill, in no acute distress. HEENT: Normocephalic, atraumatic, pupils equal and round, mucous membranes moist, edentulous. Neck: Supple. Cardiovascular: Heart has regular rate and rhythm, 2/6 murmur noted at left sternal border, non-tachycardic. Respiratory: Respirations appear even and unlabored, lungs sound clear on limited anterior and lateral exam. GI: Large, round abdomen,+ bowel sounds, soft, nontender on palpation, nondistended. Extremities: Venous stasis changes noted to bilateral lower extremities. Dressing over ulceration on left lower extremity. Psych Mental Status: mental status grossly normal Speech and Movement: speech and movement normal Mood: congruent mood Affect: normal affect DS: Data Vitals/I&O Vitals and I&O: Vital Signs Temperature 36.5 C 11/30/19 11:06 Temperature Source Tympanic 11/30/19 11:06 Pulse 89 11/30/19 11:06 Pulse Rhythm Regular 11/30/19 08:45 Respiratory Rate 18 11/30/19 11:06 Respiratory Effort 11/30/19 08:45 Respiratory Depth Normal 11/30/19 08:45 Respiratory Pattern Normal 11/30/19 08:45 Blood Pressure 137/69 11/30/19 11:06 Blood Pressure Position Supine 11/26/19 13:39 Pulse Oximetry 98 11/30/19 11:06 Oxygen Delivery Method Nasal Cannula 11/30/19 11:06 Oxygen Flow Rate 2 11/30/19 11:06 Pain Level 4 11/30/19 11:06 Comment 11/26/19 16:48 Intake & Output 11/29/19 11/29/19 11/30/19 11:59 23:59 11:59 Intake Total 250 / 835 585 / 835 240 / 240 Output Total 1400 / 1950 550 / 1950 700 / 700 Balance -1150 / -1115 35 / -1115 -460 / -460 Weight 145.8 kg 144.242 kg Intake: IV 45 / 45 Oral 250 / 790 540 / 790 240 / 240 Output: Urine 1400 / 1950 550 / 1950 700 / 700 Other: Urine Color Yellow Yellow Yellow Urine Appearance Clear Clear Clear Urine Odor Strong Voiding Methods Indwelling Catheter [facility] Medical History Acute confusion due to infection Acute pain due to trauma Acute UTI Adenoma of pituitary benign; renoved surgically on steroids and synthroid to replete Bacteremia Citrobacter C. difficile diarrhea Cancer related pain improved with fentanyl patch Carpal tunnel syndrome Chronic adrenal insufficiency Chronic pain Chronic respiratory failure with hypoxia Chronic venous stasis dermatitis COPD (chronic obstructive pulmonary disease) On nocturnal oxygen - 2L prn Depression Diabetes mellitus Insulin dependent Discharge planning issues Diverticulosis DNI (do not intubate) DNR (do not resuscitate) Dyslipidemia E. coli bacteremia Encounter for hospice care discussion Fatigue Goals of care, counseling/discussion History of breast cancer metastatic, with lymphatic spread and bone mets Hyperlipidemia Hypopituitarism Hypothyroidism Influenza B Iron deficiency anemia Left lower lobe pneumonia Metastatic breast cancer Obstructive sleep apnea per [facility] records Palliative care patient Pneumonia POLST (Physician Orders for Life-Sustaining Treatment) done 03/26/19; DNR/DNI Positive blood cultures Pulmonary emboli Recurrent urinary tract infection Restless leg syndrome SOB (shortness of breath) Spinal stenosis Stage IV breast cancer in female Toxic metabolic encephalopathy Uncontrolled pain Unsteady gait Urinary incontinence UTI (urinary tract infection) Surgical History H/O bilateral mastectomy H/O colonoscopy with polypectomy H/O mastectomy bilateral History of carpal tunnel release of both wrists Port-A-Cath in place Status post transsphenoidal pituitary resection Family History Father , age 83 from complications of diabetes Prostate cancer Diabetes Mother , age 79 from complications of Crohn's disease and colitis Crohn's disease Colitis Daughter No problems noted. Daughter No problems noted. Brother Arthritis severe Obesity Sister Diabetes Obesity Sister No problems noted. Sister No problems noted. Social History Smoking/Tobacco Use Status: Former Tobacco Use Alcohol Intake: never Drug use: Never Substance use type: does not use Caregiver/Support person: Yes Household members: children Number of Children: 2 Communication Needs: Hard of Hearing and Corrective Lenses Education Level: middle school Do you need help understanding health information?: Always current occupation: on disability Pets and animals: Yes (4 cats, 3 dogs, 1 bird, 6 hermit crabs) Pets and animals: cat(s), dog(s), bird(s) and other Details: hermit crabs Current gender identity: female What is your relationship status?: How often do you talk on the phone with friends or family?: once per week How often do you get together with friends or relatives?: three or more times per week Panel score (0-1 are the most socially isolated patients): 1 What type of physical activity do you participate in: none, sedentary lifestyle, wheelchair-bound and additional Details: needs a new wheelchair, cannot walk far, just a few steps Special pedro pablo needs: No Seatbelt use: always Working smoke detector in home: Yes Fire extinguisher in home: Yes Firearms in home: No Do you feel safe at home: Yes Do you feel safe in your relationship?: Yes Additional Social history: , with 2 children. 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 She is not currently working and is on disability. Has a history of tobacco, quit in 1992. Reports rare use of alcohol only. Lives with daughter Bhargavi in [place], and her other daughter is close. Uses a walker to ambulate. Hard to do recently, depending more on WC. In a lot of pain. Recent scans show progression of breast cancer.
[2019-11-30] MEDS: Insulin Aspart 300 UNITS/3 ML PEN SC (12:17)
[2019-11-30] MEDS: cefTRIAXone 1 GM VIAL IM (12:18)
[2019-11-30] MEDS: Lidocaine 1% Multi-Dose 50 ML VIAL (13:41)
--- NOTE | 2019-11-30 14:37 | PCNE_ITS ---
Date of service: 11/30/19 History of Present Illness History of Present Illness Chief Complaint: advanced stage IV breast cancer; pain from same Narrative: I am familiar with Candace from her multiple prior admissions for symptom management of her stage IV breast cancer. She was recently admitted with a pathological pelvic fracture and during that admission was started on a hydromorphone pump for pain control. She came in this time with another UTI and concern for possible over-sedation from her pain pump. The ER dropped her basal dose of hydromorphone to 0.7 mg/hr. When I arrived this am, she was on that dose and had a bolus dose of 1 mg q 60 minutes. I explained to her and to her nurses that this was not the best use of bolus dosing; a bolus should be half the basal dose (or less) and given q 15 minutes. She has used very little of her basal dosing since admission. We changed the bolus dosing to 0.3 mg q 15 minutes prior to her discharge home, so that Home Health could take over pump management. She said he pain was still at a 5 or 6, but she could live with that. When I spoke to her last, she said she was thinking of stopping her chemo. She then met with her oncologist, Dr Walden, and he encouraged her to give this current treatment, started on 10/11, another two or three months. Given her clinical presentation, it seems unlikely that she will live another 2-3 months. We discussed this. She feels she owes it to everyone to try everything. Consults Consult date: 11/30/19 Requesting physician: Malcom Lr Assessment and Plan Assessment and plan (1) Pelvic fracture: Status: Chronic Assessment and plan: from previous visit still one of her main sources of pain also pain in her lateral left chest, RUQ Qualifiers: Encounter type: initial encounter Pelvic bone location: ilium Fracture type: closed Fracture morphology: unspecified fracture morphology Fracture alignment: displaced Laterality: right Qualified Code(s): S32.301A - Unspeci fied fracture of right ilium, initial encounter for closed fracture (2) Fatigue: Status: Chronic Assessment and plan: severe and chronic due to her cancer possibly worse due to her narcotic pain medication reports without the pain medication, she cannot sleep due to the pain Qualifiers: Fatigue type: due to neoplasm Qualified Code(s): R53.0 - Neoplastic (malignant) related fatigue (3) UTI (urinary tract infection): Status: Acute Assessment and plan: she is incontinent of urine and with her pelvic fracture, it is harder to do personal care high risk for recurrence once discharged (4) Urinary incontinence: Status: Acute (5) Weakness generalized: Status: Chronic Assessment and plan: unlikely to get any stronger due to her pain with movement high risk for another pathological fracture due to widespread bone mets cannot do PT (6) Cancer related pain: Status: Chronic Assessment and plan: pretty well controlled on her hydromorphone pump bolus dose decreased as was interval expect she will be on this for the rest of her life explained that after hour and weekend adjustments of her pain medication need to go through her PCP office [facility] is not open at nights or weekends once she goes on hospice, then they can adjust it (7) Weakness: Status: Chronic (8) Goals of care, counseling/discussion: Status: Acute Assessment and plan: Talked to daughter Kiki when I was in the room with Candace. She reported Dr Walden wants to keep on doing chemo. THey are holding on to hope that Candace will be able to enjoy her life and have some quality of life. Review of Systems Constitutional Constitutional: Denies chills, Reports fatigue, Denies fever(s), Reports lethargy and Reports weakness Eyes Eyes: Reports requires corrective lenses ENT Ears, Nose, Mouth, and Throat: Reports dry mouth Cardiovascular Cardiovascular: Denies chest pain, Denies dyspnea and Reports dyspnea on exertion Respiratory Respiratory: Denies cough, Denies dyspnea and Reports dyspnea on exertion Gastrointestinal Gastrointestinal: Reports constipation and Reports early satiety Genitourinary Genitourinary: Reports urinary incontinence Musculoskeletal Musculoskeletal: Reports back pain, Reports arthralgias, Reports limited range of motion, Reports muscle cramps and Reports muscle weakness Comments: Candace is bedbound. Cannot walk due to her pathologic pelvic fracture. Cannot bear weight. Integumentary/Breasts Skin/Breast: Reports breast mass (in left axilla, easy to palpate, large masses (LN) x 2), Reports change in breast shape (s/p bilateral mastectomies), Reports dry skin and Reports unusual bruising Neurologic Neurologic: Reports radicular pain and Reports weakness Psychiatric Psychiatric: Reports change in appetite (didn't feel like eating anything prior to admission; no appetite ), Reports difficulty concentrating, Reports anhedonia and Reports other (more accepting of terminal nature of her disease) Endocrine Endocrine: Reports fatigue Hematologic/Lymphatic Hematologic/Lymphatic: Reports easy bruising [facility] Medical History Acute confusion due to infection Acute pain due to trauma Acute UTI Adenoma of pituitary benign; renoved surgically on steroids and synthroid to replete Bacteremia Citrobacter C. difficile diarrhea Cancer related pain improved with fentanyl patch Carpal tunnel syndrome Chronic adrenal insufficiency Chronic pain Chronic respiratory failure with hypoxia Chronic venous stasis dermatitis COPD (chronic obstructive pulmonary disease) On nocturnal oxygen - 2L prn Depression Diabetes mellitus Insulin dependent Discharge planning issues Diverticulosis DNI (do not intubate) DNR (do not resuscitate) Dyslipidemia E. coli bacteremia Encounter for hospice care discussion Fatigue Goals of care, counseling/discussion History of breast cancer metastatic, with lymphatic spread and bone mets Hyperlipidemia Hypopituitarism Hypothyroidism Influenza B Iron deficiency anemia Left lower lobe pneumonia Metastatic breast cancer Obstructive sleep apnea per [facility] records Palliative care patient Pneumonia POLST (Physician Orders for Life-Sustaining Treatment) done 03/26/19; DNR/DNI Positive blood cultures Pulmonary emboli Recurrent urinary tract infection Restless leg syndrome SOB (shortness of breath) Spinal stenosis Stage IV breast cancer in female Toxic metabolic encephalopathy Uncontrolled pain Unsteady gait Urinary incontinence UTI (urinary tract infection) Surgical History H/O bilateral mastectomy H/O colonoscopy with polypectomy H/O mastectomy bilateral History of carpal tunnel release of both wrists Port-A-Cath in place Status post transsphenoidal pituitary resection Family History Father , age 83 from complications of diabetes Prostate cancer Diabetes Mother , age 79 from complications of Crohn's disease and colitis Crohn's disease Colitis Daughter No problems noted. Daughter No problems noted. Brother Arthritis severe Obesity Sister Diabetes Obesity Sister No problems noted. Sister No problems noted. Social History Smoking/Tobacco Use Status: Former Tobacco Use Alcohol Intake: never Drug use: Never Substance use type: does not use Caregiver/Support person: Yes Household members: children Number of Children: 2 Communication Needs: Hard of Hearing and Corrective Lenses Education Level: middle school Do you need help understanding health information?: Always current occupation: on disability Pets and animals: Yes (4 cats, 3 dogs, 1 bird, 6 hermit crabs) Pets and animals: cat(s), dog(s), bird(s) and other Details: hermit crabs Current gender identity: female What is your relationship status?: How often do you talk on the phone with friends or family?: once per week How often do you get together with friends or relatives?: three or more times per week Panel score (0-1 are the most socially isolated patients): 1 What type of physical activity do you participate in: none, sedentary lifestyle, wheelchair-bound and additional Details: needs a new wheelchair, cannot walk far, just a few steps Special pedro pablo needs: No Seatbelt use: always Working smoke detector in home: Yes Fire extinguisher in home: Yes Firearms in home: No Do you feel safe at home: Yes Do you feel safe in your relationship?: Yes Additional Social history: , with 2 children. 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 She is not currently working and is on disability. Has a history of tobacco, quit in 1992. Reports rare use of alcohol only. Lives with daughter Bhargavi in [place], and her other daughter is close. Uses a walker to ambulate. Hard to do recently, depending more on WC. In a lot of pain. Recent scans show progression of breast cancer. Exam Narrative Exam Narrative: General: 59-year-old female, appears older than stated age, obese, lying in bed with head of bed elevated. She appears fatigued, chronically ill, in no acute distress. HEENT: Normocephalic, atraumatic, pupils equal and round, mucous membranes moist, edentulous. Neck: Supple. Cardiovascular: Heart has regular rate and rhythm, 2/6 murmur noted at left sternal border, non-tachycardic. Respiratory: Respirations appear even and unlabored, lungs sound clear on limited anterior and lateral exam. GI: Large, round abdomen,+ bowel sounds, soft, nontender on palpation, nondistended. Extremities: Venous stasis changes noted to bilateral lower extremities. Dressing over ulceration on left lower extremity. Eyes Conjunctivae: conjunctivae normal Sclera: sclerae normal Chest Breast palpation: axillary lymphadenopathy (large, firm fixed lymph nodes) left Psych Mental Status: mental status grossly normal Speech and Movement: speech and movement normal Mood: congruent mood Affect: normal affect Results Last Vital Signs Temp 97.7 F 11/30/19 11:06 Pulse 89 11/30/19 11:06 Resp 18 11/30/19 11:06 BP 137/69 11/30/19 11:06 Pulse Ox 98 11/30/19 11:06 Labs Result diagrams: 11/27/19 08:50 11/27/19 08:50
--- NOTE | 2019-11-30 14:52 | CHAPLAIN ---
Candace said she was being discharged today, when I visited this morning. Today during our conversation she said she is worried about falling asleep during the day. She is not fear about sleeping at night, and she's not sure why there is a difference but being afraid she might not wake up during the day. Kiki will be her to pickling machine operator her mom. Candace said Kiki did a good job getting room set up at home, getting the hospital bed in and situating her room.
--- NOTE | 2019-11-30 16:30 | CMDISCH_ITS ---
- If Service Date Differs Date of service: 11/30/19 Time of Service: 16:30 LACE Index Scoring Tool - Questions: Length of Stay (in days): 4 - 6 Acuity (Admit via E.D.?): Yes Comorbidities: Diabetes w/o Complication, Any Tumor E.D. Visits: 19 - Answers: Total Score: 14 Risk of Readmission: High Risk Care Management Discharge Reason for Hospitalization: UTI Discharge Plan: Candace was discharged home today with home health services, via [facility]. CM spoke with her daughter and reviewed the discharge plan. [facility] and reviewed the discharge [facility], Cadnace was discharged home with CADD and Cassette for pain control. Candace will be seen by today at 1600 and follow up with her primary care via telehealth. was able to see her prior to discharge and will follow up with Candace as outpatient. Candace states she wants to be home with her family that is where she likes to be. She is worried about Montse and her coping with Candace's illness. Francoises pain was well controlled at time of discharged. CM faxed discharged information to primary care for follow up. Patient/Family Education Needs: Discharge education, limitations and follow up plan of care. Services Needed at Discharge: DME Agency, Home Health Care Services, Oxygen Therapy, Transportation
== END 2019-11-30 12:39 | disposition home health service (06) | DRG 690 ==
LOC: ER 17:20 → MS 17:34
PROVIDERS: Family Medicine; Admitting Provider Family Medicine; Emergency Provider Student in an Organized Health Care Education/Training Program; PCP Nurse Practitioner Family; Visit Provider Family Medicine
DX: N39.0 Urinary tract infection, site not specified (principal); E27.40 Unspecified adrenocortical insufficiency; C79.51 Secondary malignant neoplasm of bone; J96.11 Chronic respiratory failure with hypoxia; C77.9 Secondary and unspecified malignant neoplasm of lymph node, unspecified; B96.89 Other specified bacterial agents as the cause of diseases classified elsewhere; R53.0 Neoplastic (malignant) related fatigue; M84.550D Pathological fracture in neoplastic disease, pelvis, subsequent encounter for fracture with routine healing; R32 Unspecified urinary incontinence; G89.3 Neoplasm related pain (acute) (chronic); Z79.4 Long term (current) use of insulin; E11.22 Type 2 diabetes mellitus with diabetic chronic kidney disease; N18.3 Chronic kidney disease, stage 3 (moderate); Z66 Do not resuscitate; Z85.3 Personal history of malignant neoplasm of breast; I87.2 Venous insufficiency (chronic) (peripheral); J44.9 Chronic obstructive pulmonary disease, unspecified; Z99.81 Dependence on supplemental oxygen; F32.9 Major depressive disorder, single episode, unspecified; E78.5 Hyperlipidemia, unspecified; E89.3 Postprocedural hypopituitarism; D50.9 Iron deficiency anemia, unspecified; E03.9 Hypothyroidism, unspecified; G47.33 Obstructive sleep apnea (adult) (pediatric); Z86.711 Personal history of pulmonary embolism; M48.00 Spinal stenosis, site unspecified; G25.81 Restless legs syndrome; G89.11 Acute pain due to trauma
CPT/HCPCS: 36415; 80048; 80053; 93005; 94640; 96365; 96375; 99223; 99232; 99233; 99239; 99255; 99285; U0003; 70450; 83880; 84484; 85025; 93010; J0696; J1170; J1941

== ENCOUNTER 2019-12-13 18:17 | Inpatient (IN) | payer MEDICARE, MEDICAID, SELFPAY ==
[2019-12-13 18:21] VITALS: BP 117/94; PULSE 87; RESP 22; TEMP 36.9; O2SAT 93
[2019-12-13 18:28] VITALS: O2SAT 93
--- NOTE | 2019-12-13 18:28 | ED.GENADUL_ITS ---
Discharge Plan Disposition Patient Disposition: [facility] INPATIENT Condition: Serious Discharge Details Chief Complaint: Fever Clinical Impression: UTI (urinary tract infection), Sepsis Admit Date/Time: 12/13/19 20:23 Admit Provider: Robert Jose Attending Provider: Robert Jose Primary Care Provider: ANNA TORO ED Provider: Payton Gale Discharge Data Discharge Date/Time-TO BE ENTERED AT DEPARTURE: 12/13/19 21:21 Medical Decision Making Patient is a 59 year old female, well known to myself and department, presenting today [facility] concern for UTI. Sthe states that she has been on antibiotics for the past week. States that she contacted EMS as she developed a fever. Patient is currently bedbound, resides with her daughter. Shesuffered a patholoigc fracgture to her pelvis and since has had a fonley in place. States this was last changed one month ago. Denies any new pains, suffers with chronic pain associated with her cancer metastesis. On exam, patient appears chronically ill. Her physcial apperarance is at baseline but her speech pattern is different than her typical. She is A&O x 3 but her answers do not seem consistent with her normal. I wonder if there is an element of confusion. She has had urosepsis historically, will speak with her daughter, Bhargavi, who typically cares for her. Spoke with daughter, Bhargavi at [phone]. She states that she has lost appetite, is confused, has had a fever. states that this started today. Was seen by home health today, they went down on her pain pump today becuase she was tired. She states that patient has not been on any antibiotics since her recent discharge. CBC significant for anemia with a hemoglobin of 10, this actually quite good for patient. Lactate is elevated 2.6. Creatinine 1.08 which is baseline for the patient. Patient does have transaminitis which is also baseline for the patient. UA significant for positive nitrite, moderate leukocyte esterase, many bacteria. We will begin treatment with antibiotics. Patient's most recent culture and sensitivity shows that her urine grew out Enterobacter. This is susceptible to Bactrim, meropenem, ciprofloxacin. Patient started on IV abx. Plan for admission as she is unable to participate in her own care at home at this time and has not been eating/drinking per daughters report. Discussed admission with hospitalist xuan is in agreement. HPI General Mode of arrival: EMS . Date/Time Provider Initiated Documentation: 12/13/19 18:28 . Limitations to Documentation: no limitations . Information obtained by: patient and family (called daughter Bhargavi) . HPI Narrative: Patient pleasant 5-year-old female, well-known to myself in the department, brought in via EMS with concern for UTI. Patient reports that she clearly has a UTI and has been on antibiotics. Feels that symptoms have been worsening. States he states she began developing a fever. Patient does have a Mendoza catheter in place status post pelvic fracture. She reports that this Mendoza has been in place for the past month. She denies any shortness of breath or difficulty breathing. Patient is chronically on oxygen. She denies any chest pain. Denies any diarrhea. Patient has had C. difficile historically. Denies any new abdominal pain. She continues to endorse right-sided hip pain. Patient did suffer pelvic fracture associated with metastasis to this area. Patient states since a fracture she is been bedbound at home requiring large amount of assistance from her daughter. Related Data Home Medications Medication Instructions Recorded Confirmed Spiriva Respimat 1 puff INHALATION DAILY 04/03/17 12/13/19 budesonide-formoterol [Symbicort] 2 puff INHALATION BID 04/03/17 12/13/19 cyanocobalamin (vitamin B-12) 1,000 mcg PO DAILY 04/03/17 12/13/19 [Vitamin B-12] folic acid 1 mg PO DAILY 04/03/17 12/13/19 montelukast [Singulair] 10 mg PO DAILY 04/03/17 12/13/19 ondansetron HCl [Zofran] 8 mg PO TID PRN 04/03/17 12/13/19 Trulicity 1.5 mg SUBCUT QWEEK 05/06/18 12/13/19 levothyroxine 150 mcg PO DAILY 05/06/18 12/13/19 Glucagon (HCl) Emergency Kit 1 mg PRN PRN 07/25/19 12/13/19 Humulin R U-500 (Conc) Kwikpen 40 unit SUBCUT QNOON 07/25/19 12/13/19 Humulin R U-500 (Conc) Kwikpen 40 unit SUBCUT QPM 07/25/19 12/13/19 Humulin R U-500 (Conc) Kwikpen 70 unit SUBCUT QAM 07/25/19 12/13/19 Narcan 1 spray INTRANASAL PRN PRN 07/25/19 12/13/19 cranberry 450 mg PO DAILY 07/25/19 12/13/19 ferrous sulfate 325 mg PO DAILY 07/25/19 12/13/19 omeprazole 40 mg PO DAILY 07/25/19 12/13/19 Lactobacillus acidophilus 1,000 mmu cells PO BID #30 cap 08/01/19 12/13/19 hydrocortisone 5 mg PO DAILY@1500 #0 tab 08/24/19 12/13/19 hydrocortisone 20 mg PO DAILY #0 tab 08/24/19 12/13/19 denosumab 120 mg/1.7 mL (70 mg/mL) 120 mg SC Q4W #1.7 ml 10/19/19 12/13/19 subcutaneous solution exemestane 25 mg tablet 25 mg PO DAILY #90 tab 10/19/19 12/13/19 Afinitor 10 mg PO DAILY 11/03/19 12/13/19 atorvastatin 40 mg PO HS 11/04/19 12/13/19 pregabalin 200 mg PO TID 11/04/19 12/13/19 tolterodine 4 mg PO DAILY 11/04/19 12/13/19 Dificid 200 mg PO BID #10 tab 11/09/19 12/13/19 ammonium lactate 0 g TOPICAL BID #14 oz 11/09/19 12/13/19 enoxaparin 40 mg SUBCUT DAILY #30 ml 11/21/19 12/13/19 fidaxomicin [Dificid] 200 mg PO BID #1 tab 11/30/19 12/13/19 hydromorphone in 0.9 % NaCl 0.4 mg IV Q1H 12/14/19 12/14/19 Previous Rx's Medication Instructions Recorded Lactobacillus acidophilus 1,000 mmu cells PO BID #30 cap 08/01/19 hydrocortisone 5 mg PO DAILY@1500 #0 tab 08/24/19 hydrocortisone 20 mg PO DAILY #0 tab 08/24/19 denosumab 120 mg/1.7 mL (70 mg/mL) 120 mg SC Q4W #1.7 ml 10/19/19 subcutaneous solution exemestane 25 mg tablet 25 mg PO DAILY #90 tab 10/19/19 Dificid 200 mg PO BID #10 tab 11/09/19 ammonium lactate 0 g TOPICAL BID #14 oz 11/09/19 enoxaparin 40 mg SUBCUT DAILY #30 ml 11/21/19 fidaxomicin [Dificid] 200 mg PO BID #1 tab 11/30/19 Allergies Allergy/AdvReac Type Severity Reaction Status Date / Time bee venom protein (honey bee) Allergy Unknown Unverified 11/26/19 16:40 adhesive tape AdvReac Mild Unverified 11/26/19 16:40 Latex, Natural Rubber AdvReac Mild Unverified 11/26/19 16:40 General Stated Complaint: Fever CARMEN: 2 Review of Systems Constitutional Constitutional: Reports as per HPI, Denies chills, Reports fatigue, Reports fever(s) and Reports poor appetite Cardiovascular Cardiovascular: Denies chest pain and Denies dyspnea Respiratory Respiratory: Denies cough and Denies dyspnea Gastrointestinal Gastrointestinal: Denies abdominal pain, Denies change in bowel habits, Denies nausea and Denies vomiting Genitourinary Genitourinary: Reports as per HPI Musculoskeletal Musculoskeletal: Reports as per HPI and Denies back pain Integumentary/Breasts Skin/Breast: Reports as per HPI and Denies rash Endocrine Endocrine: Reports fatigue [facility] Medical History Acute confusion due to infection Acute pain due to trauma Acute UTI Adenoma of pituitary benign; renoved surgically on steroids and synthroid to replete Bacteremia Citrobacter C. difficile diarrhea Cancer related pain on hydromorphone pump Carpal tunnel syndrome Chronic adrenal insufficiency Chronic pain Chronic respiratory failure with hypoxia Chronic venous stasis dermatitis COPD (chronic obstructive pulmonary disease) On nocturnal oxygen - 2L prn Depression Diabetes mellitus Insulin dependent Discharge planning issues Diverticulosis DNI (do not intubate) DNR (do not resuscitate) Dyslipidemia E. coli bacteremia Encounter for hospice care discussion Fatigue Goals of care, counseling/discussion History of breast cancer metastatic, with lymphatic spread and bone mets Hyperlipidemia Hypopituitarism Hypothyroidism Influenza B Iron deficiency anemia Left lower lobe pneumonia Metastatic breast cancer Obstructive sleep apnea per [facility] records Palliative care patient Pneumonia POLST (Physician Orders for Life-Sustaining Treatment) done 03/26/19; DNR/DNI Positive blood cultures Pulmonary emboli Recurrent urinary tract infection Restless leg syndrome SOB (shortness of breath) Spinal stenosis Stage IV breast cancer in female Toxic metabolic encephalopathy Uncontrolled pain Unsteady gait Urinary incontinence UTI (urinary tract infection) Surgical History H/O bilateral mastectomy H/O colonoscopy with polypectomy H/O mastectomy bilateral History of carpal tunnel release of both wrists Port-A-Cath in place Status post transsphenoidal pituitary resection Family History Father , age 83 from complications of diabetes Prostate cancer Diabetes Mother , age 79 from complications of Crohn's disease and colitis Crohn's disease Colitis Daughter No problems noted. Daughter No problems noted. Brother Arthritis severe Obesity Sister Diabetes Obesity Sister No problems noted. Sister No problems noted. Social History Smoking/Tobacco Use Status: Former Tobacco Use Alcohol Intake: never Drug use: Never Substance use type: does not use Caregiver/Support person: Yes Household members: children Number of Children: 2 Communication Needs: Hard of Hearing and Corrective Lenses Education Level: middle school Do you need help understanding health information?: Always current occupation: on disability Pets and animals: Yes (4 cats, 3 dogs, 1 bird, 6 hermit crabs) Pets and animals: cat(s), dog(s), bird(s) and other Details: hermit crabs Current gender identity: female What is your relationship status?: How often do you talk on the phone with friends or family?: once per week How often do you get together with friends or relatives?: three or more times per week Panel score (0-1 are the most socially isolated patients): 1 What type of physical activity do you participate in: none, sedentary lifestyle, wheelchair-bound and additional Details: needs a new wheelchair, cannot walk far, just a few steps Special pedro pablo needs: No Seatbelt use: always Working smoke detector in home: Yes Fire extinguisher in home: Yes Firearms in home: No Do you feel safe at home: Yes Do you feel safe in your relationship?: Yes Additional Social history: , with 2 children. 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 She is not currently working and is on disability. Has a history of tobacco, quit in 1992. Reports rare use of alcohol only. Lives with daughter Bhargavi in [place], who is her Arnold caregiver; her other daughter lives close by. Bedbound since pelvic fracture. Pain controlled with hydromorphone pump. Recent scans show progression of breast cancer. Exam Const General: cooperative, comfortable, no acute distress, well developed, well groomed and ill appearing chronically Nutritional Appearance: well nourished and obese Orientation: alert, awake and oriented x3 HENMT Face and sinus: dry mucous membranes Resp Effort & Inspection: normal respiratory effort and no respiratory distress Auscultation: clear to auscultation bilaterally, no rales, no rhonchi and no wheezes Cardio Rate: regular rate Rhythm: regular rhythm Heart Sounds: S1 normal and S2 normal GI Inspection: normal to inspection Palpation: soft, no hepatosplenomegaly, not firm, no guarding, not rigid and nontender Back/Spine/Pelvis Back: no CVA tenderness Skin General skin exam: no rashes or lesions noted Trauma: no lacerations or abrasions Neuro General: patient alert and patient awake Cognition: normal cognition (Patient ANO x3 but does seem slightly off from her baseline) Speech: speech normal Gait: gait abnormal (Unable to ambulate at baseline) Psych Appearance: grossly normal and well kempt Mental Status: mental status grossly normal Speech and Movement: speech and movement normal Course Vital Signs Vital signs: Vital Signs Temperature 36.9 C 12/13/19 18:21 Pulse 87 12/13/19 18:21 Respiratory Rate 22 12/13/19 18:21 Blood Pressure 117/94 H 12/13/19 18:21 Pulse Oximetry 93 12/13/19 18:21 Temperature 36.9 C 12/13/19 18:21 Temperature Source Oral 12/13/19 18:21 Pulse 87 12/13/19 18:21 Respiratory Rate 22 12/13/19 18:21 Blood Pressure 117/94 H 12/13/19 18:21 Blood Pressure Position Supine 12/13/19 18:21 Pulse Oximetry 93 12/13/19 18:21 Oxygen Delivery Method Nasal Cannula 12/13/19 18:21 Oxygen Flow Rate 2 12/13/19 18:21 Pain Level 3 12/13/19 18:21
[2019-12-13 19:10] LABS: Abs Immature Grans 0.03 10^3/uL (0.0-0.06); Absolute Basophil Count 0.01 10^3/uL (0.0-0.2); Absolute Eosinophil Count 0.05 10^3/uL (0.0-0.7); Absolute Lymphocyte Count 1.01 10^3/uL (1.2-3.4); Absolute Monocyte Count 0.18 10^3/uL (0.1-0.8); Absolute Neutrophil Count 4.05 10^3/uL (1.2-6.7); Basophils % 0.2; Eosinophils % 0.9; HCT 33.1 % (36.0-46.0); Immature Grans % 0.6; Lymphocytes % 18.9; MCH 25.7 pg (27.0-33.0); MCHC 30.2 % (32.0-36.0); MCV 85.1 fL (80-95); MPV 9.3 fL (8.0-11.0); Monocytes % 3.4; Nucleated RBC 0 %; Platelet Count 152 10^3/uL (130-400); RBC 3.89 10^6/uL (3.93-5.22); RDW 17.2 % (11.7-14.6); RDW-SD 52.9 fL; WBC 5.33 10^3/uL (4.4-10.8)
[2019-12-13 19:12] LABS: Lactate 2.6 mmol/L (0.6-1.4)
[2019-12-13 19:14] LABS: Bilirubin Negative (Negative); Blood Small (Negative); Clarity Cloudy (Clear); Glucose Negative (Negative); Ketones Negative (Negative); Leukocyte Esterase Moderate (Negative); Nitrite Positive (Negative); Urobilinogen 0.2 EU/dL (Up TO 0.2); pH 6.5 (5-8)
[2019-12-13 19:27] LABS: Bacteria Many HPF (Negative); C & S Indicated? Yes; Casts Negative LPF (Negative); Crystals Negative HPF (Negative); Epithelial Cells Few HPF (Negative); Mucus Trace (Negative); WBC 20-50 HPF (0-5)
[2019-12-13 19:29] LABS: ALT 76 U/L (14-59); AST 155 U/L (15-37); Albumin 3.2 g/dL (3.4-5.0); Alkaline Phosphatase 260 U/L (46-116); Anion Gap 5.1 mmol/L (3-11); BUN 14 mg/dL (7-18); Bilirubin, Total 0.4 mg/dL (0.2-1.0); CO2 33.9 mmol/L (21.0-32.0); CREATININE 1.08 mg/dL (0.55-1.02); Calcium 9.4 mg/dL (8.5-10.1); Chloride 99 mmol/L (98-107); Estimated GFR 51.75 (mL/min/1.73m2); Glucose 59 mg/dL (74-106); Magnesium 2.3 mg/dL (1.8-2.4); Potassium 4.1 mmol/L (3.5-5.1); Sodium 138 mmol/L (136-145); Total Protein 8.9 g/dL (6.4-8.2)
[2019-12-13] MEDS: Normal Saline 1,000 ML 250 ML IV (19:30)
[2019-12-13 19:33] LABS: Troponin I < 0.05 ng/mL (<0.06)
[2019-12-13] MEDS: Dextrose 50%-Water 25 GM/50 ML SYR (19:42)
[2019-12-13] MEDS: CIPROFLOXACIN 400 MG/200 ML BAG 200 MG IVPB (19:42)
--- NOTE | 2019-12-13 19:55 | DI.RAD_ITS ---
EXAM: XR PORTABLE CHEST AP CLINICAL HISTORY: fever TECHNIQUE: 2D digital imaging was performed. COMPARISON: CR,XR XR PORTABLE CHEST AP from 11/03/2019 FINDINGS: MEDIASTINUM: Normal. HEART: Stable cardiac size. PULMONARY VASCULATURE: Normal. LUNGS: Increased lung markings are seen in the left base. PLEURAL SPACE: No pleural effusion or pneumothorax. BONE:Within normal limits for the patient's age. OTHER FINDINGS:There is a stable indwelling central venous catheter. The tip is in the superior vena cava. Surgical clips are are seen in the soft tissues IMPRESSION: Left basilar infiltrate. DATA REPOSITORY: RADIATION DOSE DELIVERED:
--- NOTE | 2019-12-13 20:09 | W.PM.HP.N ---
Date of service: 12/13/19 Time of Service: 20:09 Assessment and Plan Assessment and plan (1) UTI (urinary tract infection): Status: Acute Assessment and plan: UTI with dehydration. Hemodynamics satisfactory. Elevated lactate noted, uncertain clinical significance. Will continue IV hydration and Cipro, pending cultures. Usual meds as is otherwise except will decrease insulin by one half in light of hypoglycemia and apparent limited PO, will cover with SS. Remains DNR History of Present Illness History of Present Illness Chief Complaint: weakness Narrative: 59 female with multiple problems, notably metastatic breast CA, recent pathological pelvic fracture and UTI. Cared for at home by daughter. Here with one day of increasing weakness and confusion. In ER findings of note for absence of fever, normal white count and pyuria. Also sugar 59. Patient given 400 IV Cipro and admitted for further management. Patient states she feels a little better but is still quite weak and does not feel she can participate in assisting with her home care. Denies dysuria or bladder spasm. Note indwelling Mendoza. Does not know when last changed. Review of Systems All systems reviewed & are unremarkable except as noted in HPI and below PFSH Medical History Acute confusion due to infection Acute pain due to trauma Acute UTI Adenoma of pituitary benign; renoved surgically on steroids and synthroid to replete Bacteremia Citrobacter C. difficile diarrhea Cancer related pain on hydromorphone pump Carpal tunnel syndrome Chronic adrenal insufficiency Chronic pain Chronic respiratory failure with hypoxia Chronic venous stasis dermatitis COPD (chronic obstructive pulmonary disease) On nocturnal oxygen - 2L prn Depression Diabetes mellitus Insulin dependent Discharge planning issues Diverticulosis DNI (do not intubate) DNR (do not resuscitate) Dyslipidemia E. coli bacteremia Encounter for hospice care discussion Fatigue Goals of care, counseling/discussion History of breast cancer metastatic, with lymphatic spread and bone mets Hyperlipidemia Hypopituitarism Hypothyroidism Influenza B Iron deficiency anemia Left lower lobe pneumonia Metastatic breast cancer Obstructive sleep apnea per [facility] records Palliative care patient Pneumonia POLST (Physician Orders for Life-Sustaining Treatment) done 03/26/19; DNR/DNI Positive blood cultures Pulmonary emboli Recurrent urinary tract infection Restless leg syndrome SOB (shortness of breath) Spinal stenosis Stage IV breast cancer in female Toxic metabolic encephalopathy Uncontrolled pain Unsteady gait Urinary incontinence UTI (urinary tract infection) Surgical History H/O bilateral mastectomy H/O colonoscopy with polypectomy H/O mastectomy bilateral History of carpal tunnel release of both wrists Port-A-Cath in place Status post transsphenoidal pituitary resection Family History Father , age 83 from complications of diabetes Prostate cancer Diabetes Mother , age 79 from complications of Crohn's disease and colitis Crohn's disease Colitis Daughter No problems noted. Daughter No problems noted. Brother Arthritis severe Obesity Sister Diabetes Obesity Sister No problems noted. Sister No problems noted. Social History Smoking/Tobacco Use Status: Former Tobacco Use Alcohol Intake: never Drug use: Never Substance use type: does not use Caregiver/Support person: Yes Household members: children Number of Children: 2 Communication Needs: Hard of Hearing and Corrective Lenses Education Level: middle school Do you need help understanding health information?: Always current occupation: on disability Pets and animals: Yes (4 cats, 3 dogs, 1 bird, 6 hermit crabs) Pets and animals: cat(s), dog(s), bird(s) and other Details: hermit crabs Current gender identity: female What is your relationship status?: How often do you talk on the phone with friends or family?: once per week How often do you get together with friends or relatives?: three or more times per week Panel score (0-1 are the most socially isolated patients): 1 What type of physical activity do you participate in: none, sedentary lifestyle, wheelchair-bound and additional Details: needs a new wheelchair, cannot walk far, just a few steps Special pedro pablo needs: No Seatbelt use: always Working smoke detector in home: Yes Fire extinguisher in home: Yes Firearms in home: No Do you feel safe at home: Yes Do you feel safe in your relationship?: Yes Additional Social history: , with 2 children. 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 She is not currently working and is on disability. Has a history of tobacco, quit in 1992. Reports rare use of alcohol only. Lives with daughter Bhargavi in [place], and her other daughter is close. Uses a walker to ambulate. Hard to do recently, depending more on WC. In a lot of pain. Recent scans show progression of breast cancer. Meds Home Medications and Allergies Home Medications Medication Instructions Recorded Confirmed Type Spiriva Respimat 1 puff INHALATION DAILY 04/03/17 12/13/19 History budesonide-formoterol [Symbicort] 2 puff INHALATION BID 04/03/17 12/13/19 History cyanocobalamin (vitamin B-12) 1,000 mcg PO DAILY 04/03/17 12/13/19 History [Vitamin B-12] folic acid 1 mg PO DAILY 04/03/17 12/13/19 History montelukast [Singulair] 10 mg PO DAILY 04/03/17 12/13/19 History ondansetron HCl [Zofran] 8 mg PO TID PRN 04/03/17 12/13/19 History Trulicity 1.5 mg SUBCUT QWEEK 05/06/18 12/13/19 History levothyroxine 150 mcg PO DAILY 05/06/18 12/13/19 History Glucagon (HCl) Emergency Kit 1 mg PRN PRN 07/25/19 12/13/19 History Humulin R U-500 (Conc) Kwikpen 40 unit SUBCUT QNOON 07/25/19 12/13/19 History Humulin R U-500 (Conc) Kwikpen 40 unit SUBCUT QPM 07/25/19 12/13/19 History Humulin R U-500 (Conc) Kwikpen 70 unit SUBCUT QAM 07/25/19 12/13/19 History Narcan 1 spray INTRANASAL PRN PRN 07/25/19 12/13/19 History cranberry 450 mg PO DAILY 07/25/19 12/13/19 History ferrous sulfate 325 mg PO DAILY 07/25/19 12/13/19 History omeprazole 40 mg PO DAILY 07/25/19 12/13/19 History Lactobacillus acidophilus 1,000 mmu cells PO BID #30 cap 08/01/19 12/13/19 Rx hydrocortisone 5 mg PO DAILY@1500 #0 tab 08/24/19 12/13/19 Rx hydrocortisone 20 mg PO DAILY #0 tab 08/24/19 12/13/19 Rx denosumab 120 mg/1.7 mL (70 mg/mL) 120 mg SC Q4W #1.7 ml 10/19/19 12/13/19 Rx subcutaneous solution exemestane 25 mg tablet 25 mg PO DAILY #90 tab 10/19/19 12/13/19 Rx Afinitor 10 mg PO DAILY 11/03/19 12/13/19 History atorvastatin 40 mg PO HS 11/04/19 12/13/19 History pregabalin 200 mg PO TID 11/04/19 12/13/19 History tolterodine 4 mg PO DAILY 11/04/19 12/13/19 History Dificid 200 mg PO BID #10 tab 11/09/19 12/13/19 Rx ammonium lactate 0 g TOPICAL BID #14 oz 11/09/19 12/13/19 Rx enoxaparin 40 mg SUBCUT DAILY #30 ml 11/21/19 12/13/19 Rx fidaxomicin [Dificid] 200 mg PO BID #1 tab 11/30/19 12/13/19 Rx morphine in 0.9 % sodium chlor See Rx Instructions .ROUTE .COMPLEX 12/13/19 12/13/19 History Allergies Allergy/AdvReac Type Severity Reaction Status Date / Time bee venom protein (honey bee) Allergy Unknown Unverified 11/26/19 16:40 adhesive tape AdvReac Mild Unverified 11/26/19 16:40 Latex, Natural Rubber AdvReac Mild Unverified 11/26/19 16:40 Exam Narrative Exam Narrative: 117/94, 87, 36.7, 22, 92-98% 2L. HEENT dry oral mucosa; neck supple; lungs clear; heart distant but RRR; abdomen soft and NT; extremities chronic lymphedema; neuro somewhat sleepy but Ox3, moves all 4s Results Labs Result diagrams: 12/13/19 18:55 12/13/19 18:55 Labs: Laboratory Results - last 24 hr 12/13/19 12/13/19 12/13/19 18:55 18:55 18:55 WBC 5.33 RBC 3.89 L Hgb 10.0 L Hct 33.1 L MCV 85.1 MCH 25.7 L MCHC 30.2 L RDW 17.2 H Plt Count 152 MPV 9.3 Immature Gran % 0.6 Neutrophils % 76.0 Lymphocytes % 18.9 Monocytes % 3.4 Eosinophils % 0.9 Basophils % 0.2 Nucleated RBC % 0 Absolute Neutrophils 4.05 Absolute Lymphocytes 1.01 L Absolute Monocytes 0.18 Absolute Eosinophils 0.05 Absolute Basophils 0.01 VBG Lactate 2.6 H* Sodium 138 Potassium 4.1 Chloride 99 Carbon Dioxide 33.9 H Anion Gap 5.1 BUN 14 Creatinine 1.08 H Estimated GFR/1.73 m2 51.75 Glucose 59 L Calcium 9.4 Magnesium 2.3 Total Bilirubin 0.4 AST 155 H ALT 76 H Alkaline Phosphatase 260 H Troponin I < 0.05 Total Protein 8.9 H Albumin 3.2 L Urine Color Urine Clarity Urine pH Ur Specific K[place] Urine Protein Urine Ketones Urine Blood Urine Nitrite Urine Bilirubin Urine Urobilinogen Ur Leukocyte Esterase Urine RBC Urine WBC Ur Epithelial Cells Urine Crystals Urine Bacteria Urine Casts Urine Mucus Ur Culture Indicated? Urine Glucose 12/13/19 18:55 WBC RBC Hgb Hct MCV MCH MCHC RDW Plt Count MPV Immature Gran % Neutrophils % Lymphocytes % Monocytes % Eosinophils % Basophils % Nucleated RBC % Absolute Neutrophils Absolute Lymphocytes Absolute Monocytes Absolute Eosinophils Absolute Basophils VBG Lactate Sodium Potassium Chloride Carbon Dioxide Anion Gap BUN Creatinine Estimated GFR/1.73 m2 Glucose Calcium Magnesium Total Bilirubin AST ALT Alkaline Phosphatase Troponin I Total Protein Albumin Urine Color Yellow Urine Clarity Cloudy Urine pH 6.5 Ur Specific [place] 1.020 Urine Protein 100 H Urine Ketones Negative Urine Blood Small H Urine Nitrite Positive H Urine Bilirubin Negative Urine Urobilinogen 0.2 Ur Leukocyte Esterase Moderate H Urine RBC 3-5 H Urine WBC 20-50 H Ur Epithelial Cells Few Urine Crystals Negative Urine Bacteria Many Urine Casts Negative Urine Mucus Trace Ur Culture Indicated? Yes Urine Glucose Negative Last Vital Signs Temp 36.9 C 12/13/19 18:21 Pulse 87 12/13/19 18:21 Resp 22 12/13/19 18:21 BP 117/94 H 12/13/19 18:21 Pulse Ox 93 12/13/19 18:28 COVID-19 Screening Have you,or household,traveled outside [place] in last 14 days?: No Had IN PERSON contact w/suspected or confirmed C-19 person: No
--- NOTE | 2019-12-13 20:13 | NUR.NOTE ---
daughter contacted via phone by provider, she states that the last folley cath change was one month agoNursing Note:
[2019-12-13 20:44] VITALS: BP 118/83; PULSE 85; RESP 18; TEMP 36.6; O2SAT 97
[2019-12-13 21:46] VITALS: BP 110/58; PULSE 86; RESP 18; TEMP 37.6; O2SAT 97
[2019-12-13] MEDS: Atorvastatin 40 MG TAB PO (22:43)
[2019-12-13] MEDS: Normal Saline 1,000 ML 100 ML IV (22:44)
[2019-12-14] VITALS (12 sets, daily range): BP systolic 106–124; BP diastolic 56–68; PULSE 83–103; RESP 17–19; TEMP 36.6–38.3; O2SAT 79–97
[2019-12-14] MEDS: Acetaminophen 325 MG TAB 650 MG PO ×2 (03:16→08:24)
[2019-12-14] MEDS: Levothyroxine 150 MCG TAB PO (06:17)
[2019-12-14] MEDS: Omeprazole 20 MG CAPCR 40 MG PO (06:34)
[2019-12-14] MEDS: Pregabalin 100 MG CAP 200 MG PO ×3 (08:24→19:44)
[2019-12-14] MEDS: Hydrocortisone 10 MG TAB 20 MG PO (08:25)
[2019-12-14] MEDS: Enoxaparin 40 MG/0.4 ML SYR SC (08:25)
[2019-12-14] MEDS: Montelukast 10 MG TAB PO (08:25)
[2019-12-14] MEDS: Ferrous Sulfate 325 MG TAB PO (08:25)
[2019-12-14] MEDS: Cyanocobalamin 500 MCG TAB 1000 MCG PO (08:25)
[2019-12-14] MEDS: Folic Acid 1 MG TAB PO (08:25)
[2019-12-14] MEDS: Tolterodine 2 MG CAPCR 4 MG PO (08:25)
[2019-12-14] MEDS: CIPROFLOXACIN 400 MG/200 ML BAG 200 MG IVPB ×2 (08:26→19:44)
[2019-12-14] MEDS: Normal Saline Flush 10 ML SYR IVP ×3 (08:26→21:52)
--- NOTE | 2019-12-14 09:23 | W.PM.PROGNOT ---
Date of Service Date of service: 12/14/19 Time of Service: 09:25 Assessment and Plan Assessment and plan (1) Sepsis due to gram-negative UTI: Status: Acute Assessment and plan: Present on admission. Awaiting blood culture results and culturing the port. As Candace states she would like us to continue aggressive therapy, will continue empiric ciprofloxacin and increase the rate of IVF. Start Bio K and prophylactic PO vanco. Check for C.Diff. Provide stress dose steroids. Consult palliative care. (2) Toxic metabolic encephalopathy: Status: Acute Assessment and plan: Usual part of Candace's septic picture, also reflective of her adrenal insufficiency. Tx as above. (3) Dehydration: Status: Acute Assessment and plan: Increase the rate of IVF. (4) Adrenal insufficiency: Status: Acute Assessment and plan: Acute on chronic. Provide stress dose steroids. 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 She usually takes prophylactic dificid, but we do not have it in the pharmacy currently. Will order PO vanco. Check for C.diff, and if positive add IV flagyl while awaiting arrival of dificid. (6) Stage IV breast cancer in female: Status: Chronic Assessment and plan: Consult palliative care. (7) Cancer related pain: Status: Chronic Assessment and plan: Continue dilaudid pump. Adjust rate to comfort. Hold chemo during acute infection. (8) Pelvic fracture: Status: Chronic Assessment and plan: Treating non-operatively. This fx is pathologic. Will obtain a wound care consult given presence of a decub ulcer due to immobility and diarrhea. Qualifiers: Encounter type: initial encounter Pelvic bone location: ilium Fracture type: closed Fracture morphology: unspecified fracture morphology Fracture alignment: displaced Laterality: right Qualified Code(s): S32.301A - Unspecified fracture of right ilium, initial encounter for closed fracture (9) DVT prophylaxis: Status: Acute Assessment and plan: on SC lovenox. WIll investigate whether ancicoagulation was stopped intentionally as outpatient as Candace does have a h/o a small PE. (10) Discharge planning issues: Status: Acute Assessment and plan: DNR/DNI. Palliative care consulted. Candace would like us to continue to treat her infection and draw labs for now. She states that pain control is more important than staying awake and she would like us to continue her dilaudid pump. I will discuss this with her daughter Bhargavi, whom Candace asked me to contact. Subjective Subjective Interval history since last seen: Candace states that she feels like crap, is in pain and feels tired, falling asleep frequently. Denies shortness of breath or abdominal pain. She denies h/a. Complains of pain of the pain in her wound (buttocks). She states that she has had diarrhea 3 times yesterday. Nursing notes very little UOP, urine is dark. Requiring 3 L of O2 today. Candace states that at this time she would like us to continue treating her with IVF and antibiotics. She is ok with having her bloodwork done. She states that she is ok with staying on the dilaudid pump even if it is making her sleepy right now. Exam Narrative Exam Narrative: General: Obese female who looks visibly very tired and dehydrated, A&Ox3 but falls asleep easily; answers questions appropriately and is arousable HEENT: EOMI, dry MM Heart: RRR, no m/r/g Lungs: CTAB anteriorly - diminished breath sounds Abdomen: soft, obese, nontender : alex catheter with a small amount of concentrated jaye urine Extremities: chronic venous stasis dermatitis BLE's, no edema Objective Last Vital Signs Temp 37.8 C H 12/14/19 08:24 Pulse 103 H 12/14/19 07:42 Resp 19 12/14/19 07:42 BP 106/57 L 12/14/19 07:42 Pulse Ox 93 12/14/19 07:42 Laboratory Results - last 24 hr 12/13/19 12/13/19 12/13/19 18:55 18:55 18:55 WBC 5.33 RBC 3.89 L Hgb 10.0 L Hct 33.1 L MCV 85.1 MCH 25.7 L MCHC 30.2 L RDW 17.2 H Plt Count 152 MPV 9.3 Immature Gran % 0.6 Neutrophils % 76.0 Lymphocytes % 18.9 Monocytes % 3.4 Eosinophils % 0.9 Basophils % 0.2 Nucleated RBC % 0 Absolute Neutrophils 4.05 Absolute Lymphocytes 1.01 L Absolute Monocytes 0.18 Absolute Eosinophils 0.05 Absolute Basophils 0.01 VBG Lactate 2.6 H* Sodium 138 Potassium 4.1 Chloride 99 Carbon Dioxide 33.9 H Anion Gap 5.1 BUN 14 Creatinine 1.08 H Estimated GFR/1.73 m2 51.75 Glucose 59 L Calcium 9.4 Magnesium 2.3 Total Bilirubin 0.4 AST 155 H ALT 76 H Alkaline Phosphatase 260 H Troponin I < 0.05 Total Protein 8.9 H Albumin 3.2 L Urine Color Urine Clarity Urine pH Ur Specific [place] Urine Protein Urine Ketones Urine Blood Urine Nitrite Urine Bilirubin Urine Urobilinogen Ur Leukocyte Esterase Urine RBC Urine WBC Ur Epithelial Cells Urine Crystals Urine Bacteria Urine Casts Urine Mucus Ur Culture Indicated? Urine Glucose 12/13/19 18:55 WBC RBC Hgb Hct MCV MCH MCHC RDW Plt Count MPV Immature Gran % Neutrophils % Lymphocytes % Monocytes % Eosinophils % Basophils % Nucleated RBC % Absolute Neutrophils Absolute Lymphocytes Absolute Monocytes Absolute Eosinophils Absolute Basophils VBG Lactate Sodium Potassium Chloride Carbon Dioxide Anion Gap BUN Creatinine Estimated GFR/1.73 m2 Glucose Calcium Magnesium Total Bilirubin AST ALT Alkaline Phosphatase Troponin I Total Protein Albumin Urine Color Yellow Urine Clarity Cloudy Urine pH 6.5 Ur Specific [place] 1.020 Urine Protein 100 H Urine Ketones Negative Urine Blood Small H Urine Nitrite Positive H Urine Bilirubin Negative Urine Urobilinogen 0.2 Ur Leukocyte Esterase Moderate H Urine RBC 3-5 H Urine WBC 20-50 H Ur Epithelial Cells Few Urine Crystals Negative Urine Bacteria Many Urine Casts Negative Urine Mucus Trace Ur Culture Indicated? Yes Urine Glucose Negative
[2019-12-14] MEDS: Tiotropium Bromide-Respimat 10 PUFF INH 2 PUFF IH (09:24)
[2019-12-14] MEDS: Budesonide/Formoterol 160/4.5 6 GM 60 PUFF INH IH ×2 (09:24→19:46)
[2019-12-14] MEDS: Hydrocortisone SOD SUC. 100 MG VIAL IVP (09:57)
[2019-12-14 10:03] LABS: Abs Immature Grans 0.02 10^3/uL (0.0-0.06); Absolute Basophil Count 0.01 10^3/uL (0.0-0.2); Absolute Eosinophil Count 0.07 10^3/uL (0.0-0.7); Absolute Lymphocyte Count 1.43 10^3/uL (1.2-3.4); Absolute Monocyte Count 0.34 10^3/uL (0.1-0.8); Absolute Neutrophil Count 3.79 10^3/uL (1.2-6.7); Basophils % 0.2; Eosinophils % 1.2; HCT 25.1 % (36.0-46.0); HGB 7.5 g/dL (11.2-15.7); Immature Grans % 0.4; Lymphocytes % 25.3; MCH 25.3 pg (27.0-33.0); MCHC 29.9 % (32.0-36.0); MCV 84.8 fL (80-95); MPV 9.3 fL (8.0-11.0); Neutrophils % 66.9; Nucleated RBC 0 %; RBC 2.96 10^6/uL (3.93-5.22); RDW 17.5 % (11.7-14.6); RDW-SD 54.8 fL; WBC 5.66 10^3/uL (4.4-10.8)
[2019-12-14] MEDS: Normal Saline 1,000 ML 175 ML IV ×3 (10:07→22:29)
[2019-12-14 10:18] LABS: Basophilic Stippling Present; Diff Comment Diff Reviewed; Hypochromasia 2+; Platelet Count 124 10^3/uL (130-400)
[2019-12-14 10:19] LABS: Anion Gap 6.6 mmol/L (3-11); BUN 18 mg/dL (7-18); CO2 29.4 mmol/L (21.0-32.0); CREATININE 1.55 mg/dL (0.55-1.02); Calcium 8.1 mg/dL (8.5-10.1); Chloride 101 mmol/L (98-107); Estimated GFR 34.11 (mL/min/1.73m2); Glucose 144 mg/dL (74-106); Sodium 137 mmol/L (136-145)
[2019-12-14 10:32] LABS: Lactate 1.5 mmol/L (0.6-1.4)
[2019-12-14] MEDS: HYDROmorphone 100 MG in CADD PUMP CASSETTE 1 EACH, Normal Saline 90 ML IV (10:46)
--- NOTE | 2019-12-14 11:07 | PHA.REVIEW ---
Pharmacy Admission Review - Admission Clinical Review (Last Reviewed 12/13/19 @ 20:13 by Robert Jose MD) DVT prophylaxis (Acute) Diarrhea (Acute) Adrenal insufficiency (Acute) Dehydration (Acute) Toxic metabolic encephalopathy (Acute) Sepsis due to gram-negative UTI (Acute) UTI (urinary tract infection) (Acute) Discharge planning issues (Acute) bee venom protein (honey bee) Allergy (Unknown, Unverified 11/26/19 16:40) adhesive tape Adverse Reaction (Mild, Unverified 11/26/19 16:40) Latex, Natural Rubber Adverse Reaction (Mild, Unverified 11/26/19 16:40) Height 5 ft 9 in Weight 140.7 kg UTI-SEPSIS - Comments Comments/Follow Ups: Fever, HR 103, BP soft 106/57, patient is sedated. Original CADD orders were Hydromorphone 0.7mg/hr but was reduced to 0.4mg by [facility]. Reporting pain as 6/10. Follow H/H and Plt-patient is on Lovenox. Vanco oral and Acidophyllis added for history of C.diff-sample pending. Currently sedated, waxes and wanes. Stress dosed steroids in addition to her home doses of Hydrocortisone for sepsis/adrenal insufficiency. IF C.Diff positive, will need to order Dificid. Palliative consult: Stage-4 breast cancer meds not ordered at this time, also has inoperable pelvic fracture. Continuing Hydromorphone CADD made by [facility] pharmacy - Renal Dosing Renal Dosing: BUN 18 mg/dL (7-18) 12/14/19 09:50 Creatinine 1.55 mg/dL (0.55-1.02) H 12/14/19 09:50 Medications needing adjustments: Reviewed (CrCl~40ml/min-Cipro dose ok as long as CrCl>30ml/min) - Anticoagulation Anticoagulation: Hgb 7.5 g/dL (11.2-15.7) L D 12/14/19 09:50 Hct 25.1 % (36.0-46.0) L D 12/14/19 09:50 Plt Count 124 10^3/uL (130-400) L 12/14/19 09:50 Creatinine 1.55 mg/dL (0.55-1.02) H 12/14/19 09:50 DVT Prohphylaxis: Reviewed (H/H dipped 7.5/25.1 and Plt 124....please follow) Medications: Enoxaparin Therapeutic Anticoagulation: N/A - Opiate Usage Evaluate Pain Scale/Pains Meds: Intervened (Hydromorphone CADD via IV Port @ 0.4mg/hr with 1mg bolus every 60min as needed (Palliative care patient) Spoke with [employer] [facility] [employer] [facility] [employer] [facility] to verify order, concentration and dose) Scheduled Bowel Reg ordered if on Opiates?: No (reported diarrhea) - Relevant Labs Sodium 137 mmol/L (136-145) 12/14/19 09:50 Potassium 4.0 mmol/L (3.5-5.1) 12/14/19 09:50 Chloride 101 mmol/L (98-107) 12/14/19 09:50 Magnesium 2.0 mg/dL (1.8-2.4) 12/14/19 09:50 Electrolytes, C-Reactive P, ESR: Reviewed - DM Control DM Control: Glucose 144 mg/dL (74-106) H D 12/14/19 09:50 Finger Stick Blood Glucose 126 Finger Stick Blood Glucose 88 Finger Stick Blood Glucose 88 Insulin Dosing: Reviewed (Novolog scale QID, Humulin-R U-500 TID scheduled) - Heart Failure/CA Heart Failure/CA: Troponin I < 0.05 ng/mL (<0.06) 12/13/19 18:55 - BP Control BP Control: Blood Pressure 106/57 Blood Pressure 117/56 - Home Meds Home Med List reviewed: Reviewed Relevent Home Meds Not ordered & why?: Trscottie, Cancer meds: Everolimus and Exemesatne intentionally held, Antibiotic Activity - Pharmacy Antibiotic Review Pharmacy Antibiotic Activity: C/S review (Cipro IV treatment of UTI>100K gram negative/Sepsis..awaiting blood culture results) - Antibiotic Information Antibiotic Review Info: Cipro IV for UTI>100K gram negative
--- NOTE | 2019-12-14 11:12 | W.PALLCONSUL ---
Date of service: 12/14/19 History of Present Illness History of Present Illness Chief Complaint: febrile UTI/urosepsis in setting of metastatic breast cancer on immunothera Narrative: I saw Candace this am at the bequest of Dr Reno. Candace was flushed, minimally responsive, with IVF running at 175 cc/hr. She's put out 300 ccs over the previous 9 hrs, though the rate was just increased at 10 am, 2 hrs prior to the recorded output. She is on her usual hydromorphone drip for cancer-related pain control. She kept her eyes closed during most of my visit. Nurses and Dr Reno reported that early in the am, she was feeling better. She ate all her breakfast; she was not interested at all in her lunch tray. She is on IV abx as well as steroids for her adrenal insufficiency. The respiratory therapist mAi came in to check her oxygenation. (She used an ear clip). Last night, Candace has required 3L/min, up until this am, to achieve oxygenation rates over 90%. When I was present, she was 93% on 2L nc. At home, Candace usually just uses her oxygen at night, when sleeping. During the day, in her usual state of health, she is only on RA. All of this points to her being sicker than she usually is when I see her. She has stated that she wants to avoid the ICU. She does want fluid resuscitation and IV antibiotics. Mostly, though, she doesn't want aggressive measures. She has been on her current cancer regimen of immunotherapy for 2 months now. She still is bedbound from her pathologic pelvic fracture. She looks exhausted. She said one or two words, opened her eyes briefly once. Consults Consult date: 12/14/19 Requesting physician: Sheyla Reno Assessment and Plan Assessment and plan (1) Cancer related pain: Status: Chronic Assessment and plan: On [facility] cassette of hydromorphone at 0.4 mg/hr will revert back to her HH cassette when discharged (2) Stage IV breast cancer in female: Status: Chronic Assessment and plan: Followed by Dr Walden receiving immunotherapy since October 2019 has had 13 admissions in 2020 to [facility], 5 since she began her immunotherapy unclear whether her natural illness is leading to her rapid decline, or if her immunotherapy is making her much more vulnerable to bacteria in her environment or both (3) Weakness generalized: Status: Chronic Assessment and plan: bedbound not able to move much in bed could wiggle her toes when asked (4) Toxic metabolic encephalopathy: Status: Acute Assessment and plan: Has had previously on other admissions I have never seen Candace in this condition Concerning about the decline in her health (5) Adrenal insufficiency: Status: Chronic Assessment and plan: Dr Reno treating with steroids (6) Sepsis due to gram-negative UTI: Status: Acute Assessment and plan: On appropriate high dose IV abx (7) Low O2 saturation: Status: Acute Assessment and plan: Despite known RAKAN and h./o smoking, usually doesn't need oxygen during the day. Concerning re: sign of advancing illness. (8) Pelvic fracture: Status: Chronic Assessment and plan: pathologic due to mets to bone on hydromorphone for pain control Qualifiers: Encounter type: initial encounter Pelvic bone location: ilium Fracture type: closed Fracture morphology: unspecified fracture morphology Fracture alignment: displaced Laterality: right Qualified Code(s): S32.301A - Unspecified fracture of right ilium, initial encounter for closed fracture (9) Palliative care status: Status: Chronic Assessment and plan: Will continue to follow during this admission Review of Systems Unobtainable due to mental condition (showing toxic metabolic encephalopathy, cannot hold conversation) [facility] Medical History Acute confusion due to infection Acute pain due to trauma Acute UTI Adenoma of pituitary benign; renoved surgically on steroids and synthroid to replete Bacteremia Citrobacter C. difficile diarrhea Cancer related pain on hydromorphone pump Carpal tunnel syndrome Chronic adrenal insufficiency Chronic pain Chronic respiratory failure with hypoxia Chronic venous stasis dermatitis COPD (chronic obstructive pulmonary disease) On nocturnal oxygen - 2L prn Depression Diabetes mellitus Insulin dependent Discharge planning issues Diverticulosis DNI (do not intubate) DNR (do not resuscitate) Dyslipidemia E. coli bacteremia Encounter for hospice care discussion Fatigue Goals of care, counseling/discussion History of breast cancer metastatic, with lymphatic spread and bone mets Hyperlipidemia Hypopituitarism Hypothyroidism Influenza B Iron deficiency anemia Left lower lobe pneumonia Metastatic breast cancer Obstructive sleep apnea per [facility] records Palliative care patient Pneumonia POLST (Physician Orders for Life-Sustaining Treatment) done 03/26/19; DNR/DNI Positive blood cultures Pulmonary emboli Recurrent urinary tract infection Restless leg syndrome SOB (shortness of breath) Spinal stenosis Stage IV breast cancer in female Toxic metabolic encephalopathy Uncontrolled pain Unsteady gait Urinary incontinence UTI (urinary tract infection) Surgical History H/O bilateral mastectomy H/O colonoscopy with polypectomy H/O mastectomy bilateral History of carpal tunnel release of both wrists Port-A-Cath in place Status post transsphenoidal pituitary resection Family History Father , age 83 from complications of diabetes Prostate cancer Diabetes Mother , age 79 from complications of Crohn's disease and colitis Crohn's disease Colitis Daughter No problems noted. Daughter No problems noted. Brother Arthritis severe Obesity Sister Diabetes Obesity Sister No problems noted. Sister No problems noted. Social History Smoking/Tobacco Use Status: Former Tobacco Use Alcohol Intake: never Drug use: Never Substance use type: does not use Caregiver/Support person: Yes Household members: children Number of Children: 2 Communication Needs: Hard of Hearing and Corrective Lenses Education Level: middle school Do you need help understanding health information?: Always current occupation: on disability Pets and animals: Yes (4 cats, 3 dogs, 1 bird, 6 hermit crabs) Pets and animals: cat(s), dog(s), bird(s) and other Details: hermit crabs Current gender identity: female What is your relationship status?: How often do you talk on the phone with friends or family?: once per week How often do you get together with friends or relatives?: three or more times per week Panel score (0-1 are the most socially isolated patients): 1 What type of physical activity do you participate in: none, sedentary lifestyle, wheelchair-bound and additional Details: needs a new wheelchair, cannot walk far, just a few steps Special pedro pablo needs: No Seatbelt use: always Working smoke detector in home: Yes Fire extinguisher in home: Yes Firearms in home: No Do you feel safe at home: Yes Do you feel safe in your relationship?: Yes Additional Social history: , with 2 children. 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 She is not currently working and is on disability. Has a history of tobacco, quit in 1992. Reports rare use of alcohol only. Lives with daughter Bhargavi in [place], who is her Arnold caregiver; her other daughter lives close by. Bedbound since pelvic fracture. Pain controlled with hydromorphone pump. Recent scans show progression of breast cancer. Exam Narrative Exam Narrative: General: Obese female who looks acutely ill and very tired and dehydrated, face is flushed, not able to answer questions. She is minimally arousable HEENT: dry MM, no rhinnorhea, wearing her nasal cannula, hearing grossly intact Heart: distant, tachycardic, no m/r/g Lungs: CTAB anteriorly - diminished breath sounds Abdomen: soft, obese, nontender Chest: bilateral mastectomies : alex catheter with a small amount of concentrated jaye urine--300 ccs at time of my exam Extremities: chronic venous stasis dermatitis BLE's, no edema skin: face flushed, BLE dermatitis, pale psych: doesn't look anxious just exhausted and sick Results Last Vital Signs Temp 100.0 F H 12/14/19 08:24 Pulse 103 H 12/14/19 07:42 Resp 19 12/14/19 07:42 BP 106/57 L 12/14/19 07:42 Pulse Ox 95 12/14/19 09:26 Labs Result diagrams: 12/14/19 09:50 12/14/19 09:50 Labs: Laboratory Results - last 24 hr 12/13/19 12/13/19 12/13/19 18:55 18:55 18:55 WBC 5.33 RBC 3.89 L Hgb 10.0 L Hct 33.1 L MCV 85.1 MCH 25.7 L MCHC 30.2 L RDW 17.2 H Plt Count 152 MPV 9.3 Immature Gran % 0.6 Neutrophils % 76.0 Lymphocytes % 18.9 Monocytes % 3.4 Eosinophils % 0.9 Basophils % 0.2 Nucleated RBC % 0 Absolute Neutrophils 4.05 Absolute Lymphocytes 1.01 L Absolute Monocytes 0.18 Absolute Eosinophils 0.05 Absolute Basophils 0.01 RBC Morphology Hypochromasia Basophilic Stippling VBG Lactate 2.6 H* Sodium 138 Potassium 4.1 Chloride 99 Carbon Dioxide 33.9 H Anion Gap 5.1 BUN 14 Creatinine 1.08 H Estimated GFR/1.73 m2 51.75 Glucose 59 L Calcium 9.4 Magnesium 2.3 Total Bilirubin 0.4 AST 155 H ALT 76 H Alkaline Phosphatase 260 H Troponin I < 0.05 Total Protein 8.9 H Albumin 3.2 L Urine Color Urine Clarity Urine pH Ur Specific Sarles Urine Protein Urine Ketones Urine Blood Urine Nitrite Urine Bilirubin Urine Urobilinogen Ur Leukocyte Esterase Urine RBC Urine WBC Ur Epithelial Cells Urine Crystals Urine Bacteria Urine Casts Urine Mucus Ur Culture Indicated? Urine Glucose 12/13/19 12/14/19 12/14/19 18:55 09:50 09:50 WBC RBC Hgb Hct MCV MCH MCHC RDW Plt Count MPV Immature Gran % Neutrophils % Lymphocytes % Monocytes % Eosinophils % Basophils % Nucleated RBC % Absolute Neutrophils Absolute Lymphocytes Absolute Monocytes Absolute Eosinophils Absolute Basophils RBC Morphology Hypochromasia Basophilic Stippling VBG Lactate Cancelled Sodium 137 Potassium 4.0 Chloride 101 Carbon Dioxide 29.4 Anion Gap 6.6 BUN 18 Creatinine 1.55 H Estimated GFR/1.73 m2 34.11 Glucose 144 H D Calcium 8.1 L Magnesium 2.0 Total Bilirubin AST ALT Alkaline Phosphatase Troponin I Total Protein Albumin Urine Color Yellow Urine Clarity Cloudy Urine pH 6.5 Ur Specific Sarles 1.020 Urine Protein 100 H Urine Ketones Negative Urine Blood Small H Urine Nitrite Positive H Urine Bilirubin Negative Urine Urobilinogen 0.2 Ur Leukocyte Esterase Moderate H Urine RBC 3-5 H Urine WBC 20-50 H Ur Epithelial Cells Few Urine Crystals Negative Urine Bacteria Many Urine Casts Negative Urine Mucus Trace Ur Culture Indicated? Yes Urine Glucose Negative 12/14/19 12/14/19 09:50 10:25 WBC 5.66 RBC 2.96 L Hgb 7.5 L D Hct 25.1 L D MCV 84.8 MCH 25.3 L MCHC 29.9 L RDW 17.5 H Plt Count 124 L MPV 9.3 Immature Gran % 0.4 Neutrophils % 66.9 Lymphocytes % 25.3 Monocytes % 6.0 Eosinophils % 1.2 Basophils % 0.2 Nucleated RBC % 0 Absolute Neutrophils 3.79 Absolute Lymphocytes 1.43 Absolute Monocytes 0.34 Absolute Eosinophils 0.07 Absolute Basophils 0.01 RBC Morphology See below Hypochromasia 2+ Basophilic Stippling Present VBG Lactate 1.5 H Sodium Potassium Chloride Carbon Dioxide Anion Gap BUN Creatinine Estimated GFR/1.73 m2 Glucose Calcium Magnesium Total Bilirubin AST ALT Alkaline Phosphatase Troponin I Total Protein Albumin Urine Color Urine Clarity Urine pH Ur Specific Sarles Urine Protein Urine Ketones Urine Blood Urine Nitrite Urine Bilirubin Urine Urobilinogen Ur Leukocyte Esterase Urine RBC Urine WBC Ur Epithelial Cells Urine Crystals Urine Bacteria Urine Casts Urine Mucus Ur Culture Indicated? Urine Glucose
--- NOTE | 2019-12-14 11:40 | WOUNDCONS ---
- If Service Date Differs Date of service: 12/14/19 Time of Service: 11:41 Wound Initial Evaluation Narrative: Pt is a 59 year old female, pallative care patient well known to this scribe. Wound consult placed for sacral decub POA. Upon assessment Pt found to have a slit in her gluteal cleft, no sacral wound noted. Wound is full thickness, subcutaneuous tissue noted. Pt reports she has had wound for a while and has been putting that blue stuff on it. Surrounding skin on buttocks and upper posterior thighs is reddened, deep purple, but all all blanchable @ this time. Pt has Fx pelvis which has caused her to have mobility issues. Recommend turning Q2H to Pt's tolerance to prevent skin breakdown. use barrier cream as needed to protect phoebe area. - Wound Gluteal cleft Wound Type: Full Thickness Wound General Appearance: Unapproximated Wound Bed Greatest Portion: Red (Granulation) Wound Length: 3.5 cm Wound Width: 0.3 cm Wound Depth: 0.2 cm Wound Drainage Amount: None Wound Drainage Description: No drainage - Treatment/Dressing Change Topicals/Ointments: Anasept Gel Cleanse With: Cleanser with Surfactant Dressing Types: Mepilex w/Border - Recomendation Recomendation:: Cleanse wound with wound cleanser. Pat dry. Apply small amount of Anasept gel to wound bed. Apply scaral mepilex, ensuring contact with gluteal cleft and wound. Change every 3 days and PRN. Physcian/Nurse Practioner Notified: Yes (Shadia) Treatment Time - Time Total Time Spent with Patient: 10 mins - Nutrition education not reviewed at this time. Pt febrile.
[2019-12-14] MEDS: Insulin Aspart 300 UNITS/3 ML PEN SC ×3 (12:49→22:24)
--- NOTE | 2019-12-14 14:13 | DM INPTCON_ITS ---
Date of service: 12/14/19 Time of Service: 14:13 Diabetes Inpatient Consult DESCRIPTION/ASSESSMENT: Diabetes Inpatient consult generated but not warranted at this time. 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 Candace admitted with UTI, with long standing hx of stage 4 breast CA with mets, undergoing chemo therapy for last 8 weeks with drastic reduction in appetite and weight. Down 22 lbs in last month (-7% weight loss) indicating protein calorie malnutrition. Labs note anemia with Hgb trending down. Now with pressure wound on sacral cleft. Blood sugars adequately controlled. Receives hospice services at home. Following diabetic diet with varied intake. Not meeting nutrient and fluid needs by mouth at this time. IV fluid provided. INTERVENTION: continue to provide meal preferences, comfort main focus at this time consider liquid protein supplement 1 oz BID to supplement po intake PLAN: will continue to monitor intake, weight and labs on this admission. Time Spent in Nutritional Counseling and Treatment: 0 time spent face to face
[2019-12-14 14:25] LABS: COVID-19 RT-PCR UVMMC Result Negative (Negative)
--- NOTE | 2019-12-14 14:31 | PDOC.CMIN ---
- If Service Date Differs Date of service: 12/14/19 Time of Service: 14:31 Care Management Initial Assess REASON FOR HOSPITALIZATION:: UTI PAST MEDICAL HISTORY/PAST SURGICAL HISTORY:: Medical History . Acute confusion due to infection. Acute pain due to trauma. Acute UTI. Adenoma of pituitary. benign; renoved surgically. on steroids and synthroid to replete. Bacteremia. Citrobacter. C. difficile diarrhea. Cancer related pain. on hydromorphone pump. Carpal tunnel syndrome. Chronic adrenal insufficiency. Chronic pain. Chronic respiratory failure with hypoxia. Chronic venous stasis dermatitis. COPD (chronic obstructive pulmonary disease). On nocturnal oxygen - 2L prn. Depression. Diabetes mellitus. Insulin dependent. Discharge planning issues. Diverticulosis. DNI (do not intubate). DNR (do not resuscitate). Dyslipidemia. E. coli bacteremia. Encounter for hospice care discussion. Fatigue. Goals of care, counseling/discussion. History of breast cancer. metastatic, with lymphatic spread and bone mets. Hyperlipidemia. Hypopituitarism. Hypothyroidism. Influenza B. Iron deficiency anemia. Left lower lobe pneumonia. Metastatic breast cancer. Obstructive sleep apnea. per [facility] records. Palliative care patient. Pneumonia. POLST (Physician Orders for Life-Sustaining Treatment). done 03/26/19; DNR/DNI. Positive blood cultures. Pulmonary emboli. Recurrent urinary tract infection. Restless leg syndrome. SOB (shortness of breath). Spinal stenosis. Stage IV breast cancer in female. Toxic metabolic encephalopathy. Uncontrolled pain. Unsteady gait. Urinary incontinence. UTI (urinary tract infection). Surgical History . H/O bilateral mastectomy. H/O colonoscopy with polypectomy. H/O mastectomy. bilateral. History of carpal tunnel release of both wrists. Port-A-Cath in place. Status post transsphenoidal pituitary resection PREVIOUS FUNCTIONAL STATUS/SOCIAL/FAMILY SUPPORTS:: Candace lives in a single family home with her daughter Kiki and her children, in [facility]. She has two daughters who reside locally. She is currently disabled and receives [facility] highest needs. Kiki is her primary caregiver. Candace has utilized a walker for ambulation, and a wheeled walker for distance, however since her recent pelvic fracture she has been bedbound. She has been dependent on her daughter for transportation to and from appointments, however at thispoint she may require EMS transport. CURRENT FUNCTIONAL STATUS:: Candace was lying in bed dozing when CM met with her. She admitted that she is not feeling good at all. She was unable to stay awake or queenie[ her eyes open for more than a few seconds at a time. Candace spiked a fever of 38.3 this morning. She is receiving IV Cipro to treat the UTI. ADVANCE DIRECTIVES:: on file. mandy Swanson agent Has patient been provided with info about the portal/API?: Yes Did the patient sign up for the portal?: No CODE STATUS:: DNR/DNI INSURANCE COVERAGE / FINANCIAL ISSUES:: Medicare. Medicaid ([facility]) CURRENT HOME/COMMUNITY SERVICES/EQUIPMENT:: hospital bed, commode, w/c, walker, Home health nursing, CAD pump for pain control. [facility] highrest needs- mandy Swanson caregiver PRIMARY CARE PHYSICIAN:: Nurys Martinez POTENTIAL DISCHARGE NEEDS:: Pain control, continued home health, follow up with providers PATIENT/FAMILY EDUCATION NEEDS:: Discharge and follow up plans, limitations, Ask Me Three TRANSPORTATION:: via ambulance coordinated by CM PLAN:: Candace will return home with a resumption of services. She will follow up with her PCP and Oncologist and plan of care and transport via ambulance. CM will continue to support Candace and her family and their discharge planning needs.
[2019-12-14] MEDS: Hydrocortisone 10 MG TAB 5 MG PO (14:48)
--- NOTE | 2019-12-14 14:53 | CHAPLAIN ---
When I check in Candace's room a couple of times this morning, Candace was sleeping. This afternoon I caught her with her eyes open briefly. She fell back asleep while I was talking. She answered a question or two briefly, then asked how I was. Candace was admitted last night for a UTI. She has metastatic breast cancer and a recent broken hip. She is still taking some chemo medicine, since she said they don't have any side effects for her. Dr. Royal, from Palliative Care met with Candace this morning. Candace didn't provide an new information. In the past, she has told Dr. Royal that she wants to continue with the treatments of antibiotics for her UTIs and but not aggressive treatments. In the past, Candace has said that her goal is to still be able to lift her head and talk with her daughters and grandchildren. I will continue to visit.
[2019-12-14] MEDS: Hydrocortisone SOD SUC. 100 MG VIAL 50 MG IVP ×2 (17:10→21:51)
[2019-12-14] MEDS: Atorvastatin 40 MG TAB PO (21:51)
[2019-12-15] MEDS: Hydrocortisone SOD SUC. 100 MG VIAL 50 MG IVP ×2 (03:48→09:44)
[2019-12-15] MEDS: Normal Saline 1,000 ML 175 ML IV ×2 (03:49→08:10)
[2019-12-15] MEDS: Levothyroxine 150 MCG TAB PO (06:36)
[2019-12-15] MEDS: Omeprazole 20 MG CAPCR 40 MG PO (06:36)
[2019-12-15 07:04] LABS: Abs Immature Grans 0.02 10^3/uL (0.0-0.06); Absolute Lymphocyte Count 0.73 10^3/uL (1.2-3.4); Absolute Monocyte Count 0.07 10^3/uL (0.1-0.8); Absolute Neutrophil Count 3.42 10^3/uL (1.2-6.7); HCT 22.7 % (36.0-46.0); Immature Grans % 0.5; Lymphocytes % 17.2; MCH 25.6 pg (27.0-33.0); MCHC 30.8 % (32.0-36.0); MCV 83.2 fL (80-95); MPV 9.9 fL (8.0-11.0); Monocytes % 1.7; Neutrophils % 80.6; Nucleated RBC 0 %; Platelet Count 131 10^3/uL (130-400); RBC 2.73 10^6/uL (3.93-5.22); RDW 17.2 % (11.7-14.6); WBC 4.24 10^3/uL (4.4-10.8)
[2019-12-15 07:14] VITALS: BP 160/62; PULSE 62; RESP 16; TEMP 35.8; O2SAT 96
[2019-12-15 07:15] LABS: Anion Gap 9.5 mmol/L (3-11); BUN 17 mg/dL (7-18); CO2 27.5 mmol/L (21.0-32.0); CREATININE 1.14 mg/dL (0.55-1.02); Calcium 7.8 mg/dL (8.5-10.1); Chloride 103 mmol/L (98-107); Estimated GFR 48.62 (mL/min/1.73m2); Glucose 207 mg/dL (74-106); Magnesium 2.1 mg/dL (1.8-2.4); Potassium 3.7 mmol/L (3.5-5.1); Sodium 140 mmol/L (136-145)
[2019-12-15] MEDS: Tiotropium Bromide-Respimat 10 PUFF INH 2 PUFF IH (07:23)
[2019-12-15] MEDS: Budesonide/Formoterol 160/4.5 6 GM 60 PUFF INH IH ×2 (07:23→20:30)
[2019-12-15 07:56] VITALS: O2SAT 96
[2019-12-15] MEDS: Montelukast 10 MG TAB PO (08:08)
[2019-12-15] MEDS: Folic Acid 1 MG TAB PO (08:08)
[2019-12-15] MEDS: Pregabalin 100 MG CAP 200 MG PO ×3 (08:08→20:29)
[2019-12-15] MEDS: Hydrocortisone 10 MG TAB 20 MG PO (08:08)
[2019-12-15] MEDS: Ferrous Sulfate 325 MG TAB PO (08:09)
[2019-12-15] MEDS: Tolterodine 2 MG CAPCR 4 MG PO (08:09)
[2019-12-15] MEDS: Normal Saline Flush 10 ML SYR IVP ×3 (08:09→20:28)
[2019-12-15] MEDS: Cyanocobalamin 500 MCG TAB 1000 MCG PO (08:09)
[2019-12-15] MEDS: Insulin Aspart 300 UNITS/3 ML PEN SC ×4 (08:10→21:56)
[2019-12-15] MEDS: CIPROFLOXACIN 400 MG/200 ML BAG 200 MG IVPB ×2 (08:10→20:31)
[2019-12-15] MEDS: Enoxaparin 40 MG/0.4 ML SYR SC (08:11)
--- NOTE | 2019-12-15 09:20 | PDOC.CMPRO ---
- If Service Date Differs Date of service: 12/15/19 Time of Service: 09:20 Care Management Progress Note S/O:Candace was sitting up in bed, awake and alert when CM met with her. She was pleasant in her interactions and quite talkative today. She described yesterday as a lost day, stating she had no recollection of having seen CM or about much of what happened. She stated she feels good today and that her pain is well controlled. Candace shared a lot about her family, her parents in particular. Tomorrow is the anniversary of her mother's and Candace was teary when talking about her and the last few weeks of her life. Candace also talked about some of her congregational and spiritual beliefs and some of the books that have been important in the formulation of her beliefs. A:Candace is a 59 year old woman admitted with a UTI P:Candace will return home with a resumption of services and will have the hydromorphone CAD pump for pain control. She will follow up with her PCP and Oncologist and plan of care and transport via ambulance. CM will continue to support Candace and her family and their discharge planning needs.
[2019-12-15 10:25] LABS: C Diff PCR Negative (Negative)
--- NOTE | 2019-12-15 10:32 | PGE_ITS ---
Date of Service Date of service: 12/15/19 Time of Service: 10:32 Assessment and Plan Assessment and plan (1) Sepsis due to gram-negative UTI: Status: Acute Assessment and plan: IV cipro day 3, urine ID and sensitivities pending blood cultures show no growth to date. 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 back on her home dificid stool for C.diff is negative (3) Cancer related pain: Status: Chronic Assessment and plan: On [facility] cassette of hydromorphone at 0.4 mg/hr will revert back to her HH cassette when discharged (4) Stage IV breast cancer in female: Status: Chronic Assessment and plan: Followed by Dr Walden receiving immunotherapy since October 2019 has had 13 admissions in 2020 to [facility], 5 since she began her immunotherapy unclear whether her natural illness is leading to her rapid decline, or if her immunotherapy is making her much more vulnerable to bacteria in her environment or both (5) Weakness generalized: Status: Chronic Assessment and plan: bedbound not able to move much in bed could wiggle her toes when asked (6) Toxic metabolic encephalopathy: Status: Acute Assessment and plan: Has had previously on other admissions I have never seen Candace in this condition Concerning about the decline in her health (7) Pelvic fracture: Status: Chronic Assessment and plan: pathologic due to mets to bone on hydromorphone for pain control Qualifiers: Encounter type: initial encounter Fracture alignment: displaced Fracture morphology: unspecified fracture morphology Fracture type: closed Laterality: right Pelvic bone location: ilium Qualified Code(s): S32.301A - Unspecified fracture of right ilium, initial encounter for closed fracture (8) Palliative care status: Status: Chronic Assessment and plan: Will continue to follow during this admission (9) Dehydration: Status: Acute Assessment and plan: resolved, stop IV fluids today (10) Adrenal insufficiency: Status: Acute Assessment and plan: Acute on chronic. Taper stress dose steroids. (11) DVT prophylaxis: Status: Acute Assessment and plan: on SC lovenox. does have a h/o a small PE. (12) Discharge planning issues: Status: Acute Assessment and plan: DNR/DNI. Palliative care consulted. Candace would like us to continue to treat her infection and draw labs for now. She states that pain control is more important than staying awake and she would like us to continue her dilaudid pump. Subjective Subjective Patient reports: no new complaints, feels better, tolerating liquids well, tolerating a regular diet and afebrile; denies nausea and vomiting Interval history since last seen: alex draining med yellow urine. reports she feels significantly better than yesterday, no confusion, Exam Narrative Exam Narrative: General: Obese female who looks chronically and acutely ill, pink warm dry and well perfused. HEENT: dry MM, no rhinnorhea, wearing her nasal cannula, hearing grossly intact Heart: distant, tachycardic, no m/r/g Lungs: respirations even and unlabored - diminished breath sounds, no wheeze or rhonchi Abdomen: soft, obese, nontender Chest: bilateral mastectomies : alex catheter with a small amount of concentrated jaye urine Extremities: chronic venous stasis dermatitis BLE's, no edema skin: face flushed, BLE dermatitis, pale Objective Last Vital Signs Temp 35.8 C L 12/15/19 07:14 Pulse 62 12/15/19 07:14 Resp 16 12/15/19 07:14 BP 160/62 H 12/15/19 07:14 Pulse Ox 96 12/15/19 07:56 Laboratory Results - last 24 hr 12/13/19 12/14/19 12/15/19 21:05 10:25 06:15 WBC RBC Hgb Hct MCV MCH MCHC RDW Plt Count MPV Immature Gran % Neutrophils % Lymphocytes % Monocytes % Eosinophils % Basophils % Nucleated RBC % Absolute Neutrophils Absolute Lymphocytes Absolute Monocytes Absolute Eosinophils Absolute Basophils VBG Lactate 1.5 H Sodium 140 Potassium 3.7 Chloride 103 Carbon Dioxide 27.5 Anion Gap 9.5 BUN 17 Creatinine 1.14 H Estimated GFR/1.73 m2 48.62 Glucose 207 H Calcium 7.8 L Magnesium 2.1 Stl C.difficile Tox PCR COVID-19 PCR Negative Nasopharyn COVID-19 PCR Not Applicable Ref Test Perform Site [facility] 12/15/19 12/15/19 06:15 09:00 WBC 4.24 L RBC 2.73 L Hgb 7.0 L Hct 22.7 L MCV 83.2 MCH 25.6 L MCHC 30.8 L RDW 17.2 H Plt Count 131 MPV 9.9 Immature Gran % 0.5 Neutrophils % 80.6 Lymphocytes % 17.2 Monocytes % 1.7 Eosinophils % 0.0 Basophils % 0.0 Nucleated RBC % 0 Absolute Neutrophils 3.42 Absolute Lymphocytes 0.73 L Absolute Monocytes 0.07 L Absolute Eosinophils 0.00 Absolute Basophils 0.00 VBG Lactate Sodium Potassium Chloride Carbon Dioxide Anion Gap BUN Creatinine Estimated GFR/1.73 m2 Glucose Calcium Magnesium Stl C.difficile Tox PCR Negative COVID-19 PCR Nasopharyn COVID-19 PCR Ref Test Perform Site
--- NOTE | 2019-12-15 11:20 | CHAPLAIN ---
Candace was much more alert when I visit this morning. She said yesterday couldn't stay and awake and did not feel well. She didn't really remember being brought in by ambulance on Friday. She is relieved to be feeling better. I will continue to visit.
[2019-12-15] MEDS: Hydrocortisone 10 MG TAB 5 MG PO (14:58)
[2019-12-15 15:43] VITALS: BP 114/68; PULSE 79; RESP 18; TEMP 36.7; O2SAT 95
[2019-12-15] MEDS: Hydrocortisone SOD SUC. 100 MG VIAL 25 MG IVP (17:14)
[2019-12-15] MEDS: Fidaxomicin 200 MG TAB PO (20:28)
[2019-12-15] MEDS: Atorvastatin 40 MG TAB PO (21:56)
[2019-12-16] MEDS: Hydrocortisone SOD SUC. 100 MG VIAL 25 MG IVP ×3 (02:01→18:25)
[2019-12-16] MEDS: Normal Saline Flush 10 ML SYR IVP ×5 (02:02→19:55)
[2019-12-16 02:07] VITALS: BP 125/70; PULSE 69; RESP 18; TEMP 35.7; O2SAT 96
[2019-12-16] MEDS: Levothyroxine 150 MCG TAB PO (05:58)
[2019-12-16 07:40] VITALS: BP 110/67; PULSE 73; RESP 15; TEMP 35.8; O2SAT 98
[2019-12-16] MEDS: Tiotropium Bromide-Respimat 10 PUFF INH 2 PUFF IH (07:44)
[2019-12-16] MEDS: Budesonide/Formoterol 160/4.5 6 GM 60 PUFF INH IH ×2 (07:44→19:55)
[2019-12-16] MEDS: Pregabalin 100 MG CAP 200 MG PO ×3 (07:49→19:54)
[2019-12-16] MEDS: Cyanocobalamin 500 MCG TAB 1000 MCG PO (07:49)
[2019-12-16] MEDS: Ferrous Sulfate 325 MG TAB PO ×4 (07:49→19:54)
[2019-12-16] MEDS: Tolterodine 2 MG CAPCR 4 MG PO (07:49)
[2019-12-16] MEDS: Folic Acid 1 MG TAB PO (07:50)
[2019-12-16] MEDS: Fidaxomicin 200 MG TAB PO ×2 (07:50→19:54)
[2019-12-16] MEDS: Omeprazole 20 MG CAPCR 40 MG PO (07:50)
[2019-12-16] MEDS: Enoxaparin 40 MG/0.4 ML SYR SC (07:50)
[2019-12-16] MEDS: Montelukast 10 MG TAB PO (07:50)
[2019-12-16] MEDS: Hydrocortisone 10 MG TAB 20 MG PO (07:50)
[2019-12-16] MEDS: Insulin Aspart 300 UNITS/3 ML PEN SC ×4 (07:51→22:01)
[2019-12-16] MEDS: CIPROFLOXACIN 400 MG/200 ML BAG 200 MG IVPB ×2 (07:52→19:55)
--- NOTE | 2019-12-16 10:25 | PDOC.CMPRO ---
- If Service Date Differs Date of service: 12/16/19 Time of Service: 10:25 Care Management Progress Note S/O: Candace was sitting up in bed when CM met with her. She talked a bit about her goals of care and requested that she be able to go home on oral antibiotics for UTI and C. difficile prophylaxis and be allowed to have the alex catheter remain in place. Candace shared that she is really tired of coming back and forth to the hospital all of the time. She has had 13 admissions to the hospital so far this year and 5 since mid-October. She said several times, I just want to be with my babies. Our family is very close. A:Candace is a 59 year old woman admitted with a UTI P:Candace will return home with a resumption of HH services and will have the hydromorphone CAD pump for pain control. She will follow up with her PCP and Oncologist and plan of care and transport via ambulance. CM will continue to support Candace and her family and their discharge planning needs.
--- NOTE | 2019-12-16 12:20 | PGE_ITS ---
Date of Service Date of service: 12/16/19 Time of Service: 12:20 Assessment and Plan Assessment and plan (1) Sepsis due to gram-negative UTI: Status: Acute Assessment and plan: IV cipro day 06/07, urine ID and sensitivities pending blood cultures show no growth to date. 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 back on her home dificid stool for C.diff is negative (3) Cancer related pain: Status: Chronic Assessment and plan: On [facility] cassette of hydromorphone at 0.4 mg/hr will revert back to her HH cassette when discharged (4) Stage IV breast cancer in female: Status: Chronic Assessment and plan: Followed by Dr Walden receiving immunotherapy since October 2019 has had 13 admissions in 2020 to [facility], 5 since she began her immunotherapy unclear whether her natural illness is leading to her rapid decline, or if her immunotherapy is making her much more vulnerable to bacteria in her environment or both (5) Weakness generalized: Status: Chronic Assessment and plan: bedbound and at baseline (6) Toxic metabolic encephalopathy: Status: Acute Assessment and plan: resolved. (7) Pelvic fracture: Status: Chronic Assessment and plan: pathologic due to mets to bone on hydromorphone for pain control Qualifiers: Encounter type: initial encounter Fracture alignment: displaced Fracture morphology: unspecified fracture morphology Fracture type: closed Laterality: right Pelvic bone location: ilium Qualified Code(s): S32.301A - Unspecified fracture of right ilium, initial encounter for closed fracture (8) Palliative care status: Status: Chronic Assessment and plan: Will continue to follow during this admission (9) Dehydration: Status: Acute Assessment and plan: resolved, (10) Adrenal insufficiency: Status: Acute Assessment and plan: Acute on chronic. Taper stress dose steroids, last day today. (11) DVT prophylaxis: Status: Acute Assessment and plan: on SC lovenox. does have a h/o a small PE. (12) Discharge planning issues: Status: Acute Assessment and plan: DNR/DNI. Palliative care following. likely will discharge home to complete course of cipro then will keep prophylactic daily dosing, keep indwelling alex catheter with resumption of home health services. Subjective Subjective Patient reports: no new complaints, feels better, tolerating liquids well, tolerating a regular diet and bowel movement (formed) Exam Narrative Exam Narrative: General: Obese female who looks chronically and acutely ill, pink warm dry and well perfused. HEENT: dry MM, no rhinnorhea, wearing her nasal cannula, hearing grossly intact Heart: distant, tachycardic, no m/r/g Lungs: respirations even and unlabored - diminished breath sounds, no wheeze or rhonchi Abdomen: soft, obese, nontender Chest: bilateral mastectomies : alex catheter with a small amount of concentrated jaye urine Extremities: chronic venous stasis dermatitis BLE's, no edema skin: face flushed, BLE dermatitis, pale Objective Last Vital Signs Temp 35.8 C L 12/16/19 07:40 Pulse 73 12/16/19 07:40 Resp 15 12/16/19 07:40 BP 110/67 12/16/19 07:40 Pulse Ox 98 12/16/19 07:40
--- NOTE | 2019-12-16 14:56 | CHAPLAIN ---
Candace said she will be discharged tomorrow. She advocated to go home with her folley in place and she said Bhargavi, THANIA, and Dr. Royal, agreed. Candace is happy about this, explaining that it will be much easier for Kiki to care for her, and she won't be wet all the time. Candace said at this point she doesn't have any worried about going home and looks forward to being with her daughters and grandkids, and her dog.
[2019-12-16] MEDS: Hydrocortisone 10 MG TAB 5 MG PO (14:59)
[2019-12-16 16:00] VITALS: BP 113/67; PULSE 70; RESP 16; TEMP 36.7; O2SAT 100
--- NOTE | 2019-12-16 16:03 | DI.VRAD_ITS ---
PROCEDURE INFORMATION: Exam: XR Chest, 1 View Exam date and time: 12/13/2019 7:51 PM Age: 59 years old Clinical indication: Fever TECHNIQUE: Imaging protocol: XR of the chest Views: 1 view. COMPARISON: CR XR PORTABLE CHEST AP 04/11/2019 18:00 FINDINGS: Tubes, catheters and devices: Stable right central line in place with the tip in the mid superior vena cava. EKG wires overlie the chest. Lungs: Stable pulmonary vascular congestion with increased interstitial markings and peribronchial thickening. Left lower lobe infiltrate. Pleural space: Unremarkable. No pleural effusion. No pneumothorax. Heart/Mediastinum: Stable cardiomegaly. Bones/joints: Unremarkable for patient's age. Soft tissues: Surgical clips left lower chest left upper abdomen. Surgical clips right lateral chest. IMPRESSION: 1. Suspect left lower lobe infiltrate. 2. Stable pulmonary vascular congestion. 3. Stable cardiomegaly. Dictated and Authenticated by: Kimberly Shipley MD. Ordering:ELVIA Cain MD
--- NOTE | 2019-12-16 20:27 | W.PALPGNOTE ---
Date of service: 12/16/19 Assessment and Plan Assessment and plan (1) Encounter for hospice care discussion: Status: Acute Assessment and plan: If PET scan shows progression, will transition to hospice. (2) Stage IV breast cancer in female: Status: Chronic Assessment and plan: Under the care of Yary Walden, oncology. On immunotherapy since mid-October. Has had pathological fracture since then, as well as 5 admissions, many for infections, (3) Cancer related pain: Status: Chronic Assessment and plan: controlled on hydromorphone pump (4) Sepsis due to gram-negative UTI: Status: Acute Assessment and plan: She continues to have remarkable resilience She looked deathly ill 2 days ago, and today was her usual pleasant self. Will trial prophylactic antibiotics at home. Her primary goal is to stay home with her daughter and enjoy her life. (5) Alex catheter in place: Status: Acute Assessment and plan: wants to keep in place indefinitely will take prophylactiv abx (6) Palliative care status: Status: Chronic (7) Goals of care, counseling/discussion: Status: Acute Assessment and plan: Wants to go home and be comfortable, Willing to continue cancer treatment if proof that it is working. Otherwise, ready mentally to transition to hospice. Subjective Subjective Patient reports: no new complaints, feels better and pain is less Interval history since last seen: Candace has improved quite a bit since I saw her last. I am surprised that she remembered by coming to see her, as she was minimally responsive during my visit roughly 48 hrs prior to today's visit. Today, she was alert, interactive, back to her usual pleasant very social self. Her pain remains controlled. She is wanting to go home. I discussed her discharge plan with her hospitalist provider, Bhargavi Myers NP. She would like to send her home to complete her course of po cipro and then have go on prophylactic Cipro at 200 mg daily with her Alex catheter still in place. Candace felt this was a good plan. She said she gets UTIs no matter what and having the alex in place makes her life and her daugher Kiki's life easier. She also said she would be willing to continue po abx for her recurrent c diff at home. Candace does have a limited life expectancy due to her stage IV breast cancer. She continues on her immunotherapy for now. She is due for a PET scan next week. If this shows progression, she is interested in proceeding to hospice care with [facility]. Exam Narrative Exam Narrative: General: Obese female who looks chronically and acutely ill, pink warm dry and well perfused. HEENT: dry MM, no rhinnorhea, wearing her nasal cannula, hearing grossly intact Heart: distant, tachycardic, no m/r/g Lungs: respirations even and unlabored - diminished breath sounds, no wheeze or rhonchi Abdomen: soft, obese, nontender Chest: bilateral mastectomies : alex catheter with a small amount of concentrated jaye urine Extremities: chronic venous stasis dermatitis BLE's, no edema skin: face flushed, BLE dermatitis, pale Objective Last Vital Signs Temp 98.1 F 12/16/19 16:00 Pulse 70 12/16/19 16:00 Resp 16 12/16/19 16:00 BP 113/67 12/16/19 16:00 Pulse Ox 100 12/16/19 16:00
[2019-12-16] MEDS: Atorvastatin 40 MG TAB PO (22:01)
[2019-12-16 23:36] VITALS: BP 128/74; PULSE 74; RESP 16; TEMP 36.4; O2SAT 99
[2019-12-17] MEDS: Hydrocortisone SOD SUC. 100 MG VIAL 25 MG IVP (02:20)
[2019-12-17] MEDS: Normal Saline Flush 10 ML SYR IVP ×2 (02:21→09:52)
[2019-12-17] MEDS: Levothyroxine 150 MCG TAB PO (06:11)
[2019-12-17 07:17] LABS: Abs Immature Grans 0.09 10^3/uL (0.0-0.06); Absolute Eosinophil Count 0.01 10^3/uL (0.0-0.7); Absolute Lymphocyte Count 1.02 10^3/uL (1.2-3.4); Absolute Monocyte Count 0.29 10^3/uL (0.1-0.8); Absolute Neutrophil Count 3.49 10^3/uL (1.2-6.7); Eosinophils % 0.2; HCT 25.9 % (36.0-46.0); HGB 7.7 g/dL (11.2-15.7); Immature Grans % 1.8; Lymphocytes % 20.8; MCH 25.2 pg (27.0-33.0); MCHC 29.7 % (32.0-36.0); MCV 84.9 fL (80-95); MPV 9.7 fL (8.0-11.0); Monocytes % 5.9; Neutrophils % 71.3; Nucleated RBC 0 %; Platelet Count 130 10^3/uL (130-400); RBC 3.05 10^6/uL (3.93-5.22); RDW 17.2 % (11.7-14.6); RDW-SD 53.4 fL
[2019-12-17 07:25] VITALS: O2SAT 98
[2019-12-17 07:26] LABS: Anion Gap 6.4 mmol/L (3-11); BUN 18 mg/dL (7-18); CO2 31.6 mmol/L (21.0-32.0); CREATININE 1.19 mg/dL (0.55-1.02); Chloride 102 mmol/L (98-107); Estimated GFR 46.27 (mL/min/1.73m2); Glucose 176 mg/dL (74-106); Potassium 3.4 mmol/L (3.5-5.1); Sodium 140 mmol/L (136-145)
[2019-12-17] MEDS: Tiotropium Bromide-Respimat 10 PUFF INH 2 PUFF IH (07:32)
[2019-12-17] MEDS: Budesonide/Formoterol 160/4.5 6 GM 60 PUFF INH IH (07:32)
[2019-12-17 07:43] LABS: Diff Comment RBC Morph Reviewed; Hypochromasia 2+; Microcytosis 2+
[2019-12-17 08:01] VITALS: BP 127/75; PULSE 74; RESP 20; TEMP 36.6; O2SAT 95
--- NOTE | 2019-12-17 09:07 | DSE_ITS ---
Date of service: 12/17/19 Time of Service: 09:07 DS: Diagnosis Discharge Diagnosis (1) Encounter for hospice care discussion: Status: Acute (2) Stage IV breast cancer in female: Status: Chronic (3) Cancer related pain: Status: Chronic (4) Sepsis due to gram-negative UTI: Status: Acute (5) Alex catheter in place: Status: Acute (6) Palliative care status: Status: Chronic (7) Goals of care, counseling/discussion: Status: Acute Discharge Plan Disposition Patient Disposition: HOME W/HOME HEALTH SERVICE Condition: Improving Discharge Details Reason For Visit: UTI Admit Date/Time: 12/13/19 20:23 Admit Provider: Robert Jose Attending Provider: Robert Jose Primary Care Provider: ANNA TORO Hospital Course Hospital Course: This is a 59 year old female, well known to hospitalist services, with complex medical history including mets breast cancer, recurrent UTI, CHF, adrenal insufficiency on palliative care who presented with altered mental status d/t toxic metabolic encephalopathy from UTI, she was placed on cipro based on old cultures and improved to her baseline. Her urine culture showed mixed growth, blood cultures negative. she was continued on her dilaudid pump at 0.4 mg and tolerating well. she will be discharged back to home with resumption of services and will complete 7 day course of cipro. she will then take cipro 250mg daily prophylactically and will continue with alex catheter to be changed out monthly. discussed with Dr Reno who is in agreement Home Meds and New Rx's Prescriptions: New ciprofloxacin HCl [Cipro] 500 mg tablet 500 mg PO BID Qty: 7 RF: 0 ciprofloxacin HCl 250 mg tablet 250 mg PO DAILY Qty: 30 RF: 0 Continued exemestane 25 mg tablet 25 mg PO DAILY Qty: 90 RF: 0 Xgeva 120 mg/1.7 mL (70 mg/mL) solution 120 mg SC Q4W Qty: 1.7 RF: 0 Humulin R U-500 (Conc) Kwikpen 500 unit/mL (3 mL) insulin pen 40 - 70 unit SUBCUT AC RF: 0 montelukast [Singulair] 10 MG tablet 10 mg PO DAILY RF: 0 cyanocobalamin (vitamin B-12) [Vitamin B-12] 1,000 MCG tablet 1,000 mcg PO DAILY RF: 0 folic acid 1 MG tablet 1 mg PO DAILY RF: 0 Spiriva Respimat 4 GM mist 1 puff Inhalation DAILY RF: 0 budesonide-formoterol [Symbicort] 10.2 GM HFA aerosol inhaler 2 puff Inhalation BID RF: 0 ondansetron HCl [Zofran] 8 MG tablet 8 mg PO TID PRNRF: 0 levothyroxine 150 mcg Tablet 150 mcg PO DAILY RF: 0 Trulicity 1.5 mg/0.5 mL Pen Injector 1.5 mg SUBCUT QWEEK RF: 0 Afinitor 10 mg tablet 10 mg PO DAILY RF: 0 pregabalin 200 mg capsule 200 mg PO TID RF: 0 tolterodine 4 mg capsule,extended release 24hr 4 mg PO DAILY RF: 0 atorvastatin 40 mg tablet 40 mg PO HS RF: 0 ammonium lactate 12 % Lotion 0 g topical BID Qty: 14 RF: 0 Dificid 200 mg Tablet 200 mg PO BID Qty: 10 RF: 0 enoxaparin 40 mg/0.4 mL syringe 40 mg subcut DAILY Qty: 30 RF: 0 Dificid 200 mg Tablet 200 mg PO BID Qty: 1 RF: 0 hydromorphone in 0.9 % NaCl 1 mg/mL Solution 0.4 mg IV Q1H RF: 0 omeprazole 40 mg Capsule,Delayed Release(Dr/Ec) 40 mg PO DAILY RF: 0 ferrous sulfate 325 mg (65 mg iron) Tablet 325 mg PO DAILY RF: 0 cranberry 450 mg Tablet 450 mg PO DAILY RF: 0 Narcan 4 mg/actuation Joanna,Non-Aerosol 1 spray INTRANASAL PRN PRNRF: 0 Glucagon (HCl) Emergency Kit 1 mg Recon Soln 1 mg PRN PRNRF: 0 Lactobacillus acidophilus Capsule 1,000 mmu cells PO BID Qty: 30 RF: 0 hydrocortisone 10 mg Tablet 5 mg PO DAILY@1500 Qty: 0 RF: 0 hydrocortisone 5 mg Tablet 20 mg PO DAILY Qty: 0 RF: 0 Discharge Instructions Instructions: Urinary Tract Infection in Women (DC) Additional Instructions: Routine alex catheter care. Complete antibiotics cipro 500 mg by mouth twice daily for 4 more days, then decrease to 250 mg daily for prophylaxis. Continue usual medications as previously directed. Resume home health services. Stand Alone Forms: Nursing Discharge Form Referrals: Yary Walden [ [facility] STAFF PHYSICIAN] - 12/23/19 4:00 pm ANNA TORO [Primary Care Provider] - 12/22/19 5:30 pm Activity:: Activity as Tolerated Equipment/Supplies:: No Equipment Needed Diet:: As Tolerated Discharge Orders Discharge Orders: Discharge Order (Routine); Ordered 12/17/19 Ordered By: Bhargavi Myers Discharge Data Discharge Date/Time-TO BE ENTERED AT DEPARTURE: 12/17/19 11:52 DS: Summary Status at Discharge Functional status at discharge: bed bound Overall status at discharge: patient is back to baseline Mental Status: mental status grossly normal Speech and Movement: speech and movement normal Mood: congruent mood Affect: normal affect Exam Narrative Exam Narrative: General: Obese female who looks chronically and acutely ill, pink warm dry and well perfused. HEENT: dry MM, no rhinnorhea, wearing her nasal cannula, hearing grossly intact Heart: distant, tachycardic, no m/r/g Lungs: respirations even and unlabored - diminished breath sounds, no wheeze or rhonchi Abdomen: soft, obese, nontender Chest: bilateral mastectomies : alex catheter with a small amount of concentrated jaye urine Extremities: chronic venous stasis dermatitis BLE's, no edema skin: face flushed, BLE dermatitis, pale Psych Mental Status: mental status grossly normal Speech and Movement: speech and movement normal Mood: congruent mood Affect: normal affect DS: Data Vitals/I&O Vitals and I&O: Vital Signs Temperature 36.6 C 12/17/19 08:01 Temperature Source Tympanic 12/17/19 08:01 Pulse 74 12/17/19 08:01 Pulse Rhythm Regular 12/16/19 20:19 Respiratory Rate 20 12/17/19 08:01 Respiratory Effort Non-Labored 12/16/19 20:19 Respiratory Depth Normal 12/16/19 20:19 Respiratory Pattern Normal 12/16/19 20:19 Blood Pressure 127/75 12/17/19 08:01 Blood Pressure Position Supine 12/13/19 18:21 Pulse Oximetry 95 12/17/19 08:01 Oxygen Delivery Method Room Air 12/17/19 08:01 Oxygen Flow Rate 0 12/17/19 08:01 Pain Level 5 12/17/19 08:40 Comment 12/14/19 08:10 Intake & Output 12/16/19 12/16/19 12/17/19 11:59 23:59 11:59 Intake Total 440 / 920 480 / 920 Output Total 300 / 775 475 / 775 Balance 140 / 145 5 / 145 Intake: IV 200 / 200 Oral 240 / 720 480 / 720 Output: Urine 300 / 775 475 / 775 Other: Urine Color Yellow Light Jaye Urine Appearance Clear Clear Stool Size Moderate Moderate Stool Characteristics Soft Soft Green Liquid Data Completed and Pending Labs on day of discharge: Labs from last 24 hours 12/17/19 12/17/19 06:50 06:50 WBC 4.90 RBC 3.05 L Hgb 7.7 L Hct 25.9 L MCV 84.9 MCH 25.2 L MCHC 29.7 L RDW 17.2 H Plt Count 130 MPV 9.7 Immature Gran % 1.8 Neutrophils % 71.3 Lymphocytes % 20.8 Monocytes % 5.9 Eosinophils % 0.2 Basophils % 0.0 Nucleated RBC % 0 Absolute Neutrophils 3.49 Absolute Lymphocytes 1.02 L Absolute Monocytes 0.29 Absolute Eosinophils 0.01 Absolute Basophils 0.00 RBC Morphology See below Hypochromasia 2+ Microcytosis 2+ Sodium 140 Potassium 3.4 L Chloride 102 Carbon Dioxide 31.6 Anion Gap 6.4 BUN 18 Creatinine 1.19 H Estimated GFR/1.73 m2 46.27 Glucose 176 H Calcium 8.0 L Preliminary micro results at discharge 12/13/19 19:28 Blood Culture - Preliminary Blood NO GROWTH 72 HOURS 12/13/19 18:55 Blood Culture - Preliminary Blood NO GROWTH 72 HOURS 12/14/19 09:50 Blood Culture - Preliminary Blood NO GROWTH 48 HOURS [facility] Medical History (Updated 12/16/19 @ 20:34 by Nevaeh Royal MD) Acute confusion due to infection Acute pain due to trauma Acute UTI Adenoma of pituitary benign; renoved surgically on steroids and synthroid to replete Bacteremia Citrobacter C. difficile diarrhea Cancer related pain on hydromorphone pump Carpal tunnel syndrome Chronic adrenal insufficiency Chronic pain Chronic respiratory failure with hypoxia Chronic venous stasis dermatitis COPD (chronic obstructive pulmonary disease) On nocturnal oxygen - 2L prn Depression Diabetes mellitus Insulin dependent Discharge planning issues Diverticulosis DNI (do not intubate) DNR (do not resuscitate) Dyslipidemia E. coli bacteremia Encounter for hospice care discussion Fatigue Alex catheter in place Goals of care, counseling/discussion History of breast cancer metastatic, with lymphatic spread and bone mets Hyperlipidemia Hypopituitarism Hypothyroidism Influenza B Iron deficiency anemia Left lower lobe pneumonia Metastatic breast cancer Obstructive sleep apnea per [facility] records Palliative care patient Pneumonia POLST (Physician Orders for Life-Sustaining Treatment) done 03/26/19; DNR/DNI Positive blood cultures Pulmonary emboli Recurrent urinary tract infection Restless leg syndrome SOB (shortness of breath) Spinal stenosis Stage IV breast cancer in female Toxic metabolic encephalopathy Uncontrolled pain Unsteady gait Urinary incontinence UTI (urinary tract infection) UTI (urinary tract infection) UTI (urinary tract infection) Surgical History H/O bilateral mastectomy H/O colonoscopy with polypectomy H/O mastectomy bilateral History of carpal tunnel release of both wrists Port-A-Cath in place Status post transsphenoidal pituitary resection Family History Father , age 83 from complications of diabetes Prostate cancer Diabetes Mother , age 79 from complications of Crohn's disease and colitis Crohn's disease Colitis Daughter No problems noted. Daughter No problems noted. Brother Arthritis severe Obesity Sister Diabetes Obesity Sister No problems noted. Sister No problems noted. Social History Smoking/Tobacco Use Status: Former Tobacco Use Alcohol Intake: never Drug use: Never Substance use type: does not use Caregiver/Support person: Yes Household members: children Number of Children: 2 Communication Needs: Hard of Hearing and Corrective Lenses Education Level: middle school Do you need help understanding health information?: Always current occupation: on disability Pets and animals: Yes (4 cats, 3 dogs, 1 bird, 6 hermit crabs) Pets and animals: cat(s), dog(s), bird(s) and other Details: hermit crabs Current gender identity: female What is your relationship status?: How often do you talk on the phone with friends or family?: once per week How often do you get together with friends or relatives?: three or more times per week Panel score (0-1 are the most socially isolated patients): 1 What type of physical activity do you participate in: none, sedentary lifestyle, wheelchair-bound and additional Details: needs a new wheelchair, cannot walk far, just a few steps Special pedro pablo needs: No Seatbelt use: always Working smoke detector in home: Yes Fire extinguisher in home: Yes Firearms in home: No Do you feel safe at home: Yes Do you feel safe in your relationship?: Yes Additional Social history: , with 2 children. 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 She is not currently working and is on disability. Has a history of tobacco, quit in 1992. Reports rare use of alcohol only. Lives with daughter Bhargavi in [place], who is her Arnold caregiver; her other daughter lives close by. Bedbound since pelvic fracture. Pain controlled with hydromorphone pump. Recent scans show progression of breast cancer.
[2019-12-17 09:25] VITALS: O2SAT 93
[2019-12-17] MEDS: Omeprazole 20 MG CAPCR 40 MG PO (09:50)
[2019-12-17] MEDS: Hydrocortisone 10 MG TAB 20 MG PO (09:51)
[2019-12-17] MEDS: Ferrous Sulfate 325 MG TAB PO (09:51)
[2019-12-17] MEDS: Tolterodine 2 MG CAPCR 4 MG PO (09:51)
[2019-12-17] MEDS: Fidaxomicin 200 MG TAB PO (09:51)
[2019-12-17] MEDS: Folic Acid 1 MG TAB PO (09:52)
[2019-12-17] MEDS: Montelukast 10 MG TAB PO (09:52)
[2019-12-17] MEDS: Pregabalin 100 MG CAP 200 MG PO (09:52)
[2019-12-17] MEDS: Cyanocobalamin 500 MCG TAB 1000 MCG PO (09:52)
[2019-12-17] MEDS: Enoxaparin 40 MG/0.4 ML SYR SC (09:53)
[2019-12-17] MEDS: Insulin Aspart 300 UNITS/3 ML PEN SC (09:54)
[2019-12-17] MEDS: CIPROFLOXACIN 400 MG/200 ML BAG 200 MG IVPB (09:55)
[2019-12-17] MEDS: Normal Saline 500 ML 30 ML IV (09:55)
[2019-12-17] MEDS: Potassium Chloride Liquid 20 MEQ PKT 40 MEQ PO (11:00)
[2019-12-17 11:54] LABS: Magnesium 2.6 mg/dL (1.8-2.4)
--- NOTE | 2019-12-17 12:05 | PDOC.CMDIS ---
- If Service Date Differs Date of service: 12/17/19 Time of Service: 12:05 LACE Index Scoring Tool - Questions: Length of Stay (in days): 4 - 6 Acuity (Admit via E.D.?): Yes Comorbidities: Diabetes w/o Complication, Chronic Pulmonary Disease, Metastatic Solid Tumor E.D. Visits: 20 - Answers: Total Score: 16 Risk of Readmission: High Risk Care Management Discharge Reason for Hospitalization: UTI Discharge Plan: Candace will return home with a resumption of services. She will follow up with her PCP and Oncologist and plan of care and transport via ambulance. Candace will be given prophhylaxis for C. difficile as well as to prevent UTIs. Patient/Family Education Needs: Discharge plan, limitations, follow up plan, Ask Me Three
--- NOTE | 2019-12-17 14:07 | NUR.NOTE ---
Nursing Note: Pt discharged at 11:50 via ambulance with EMS to home. Pt discharged with home hydromorphone CADD pump through R chest wall port. Transferred to [facility] via slide board with 4 person assist.
== END 2019-12-17 11:52 | disposition home health service (06) | DRG 871 ==
LOC: ER 20:43 → MS 21:13
PROVIDERS: Internal Medicine; Nurse Practitioner Acute Care; Admitting Provider General Practice; Emergency Provider Physician Assistant; PCP Nurse Practitioner Family; Visit Provider General Practice
DX: A41.50 Gram-negative sepsis, unspecified (principal); L89.893 Pressure ulcer of other site, stage 3; G92 Toxic encephalopathy; N39.0 Urinary tract infection, site not specified; C79.51 Secondary malignant neoplasm of bone; E27.40 Unspecified adrenocortical insufficiency; J96.11 Chronic respiratory failure with hypoxia; C77.9 Secondary and unspecified malignant neoplasm of lymph node, unspecified; Z68.42 Body mass index [BMI] 45.0-49.9, adult; D64.9 Anemia, unspecified; Z74.01 Bed confinement status; Z99.81 Dependence on supplemental oxygen; I87.2 Venous insufficiency (chronic) (peripheral); J44.9 Chronic obstructive pulmonary disease, unspecified; F32.9 Major depressive disorder, single episode, unspecified; Z79.4 Long term (current) use of insulin; K57.90 Diverticulosis of intestine, part unspecified, without perforation or abscess without bleeding; Z66 Do not resuscitate; E78.5 Hyperlipidemia, unspecified; R53.83 Other fatigue; Z85.3 Personal history of malignant neoplasm of breast; E89.3 Postprocedural hypopituitarism; E03.9 Hypothyroidism, unspecified; D50.9 Iron deficiency anemia, unspecified; G47.33 Obstructive sleep apnea (adult) (pediatric); Z86.711 Personal history of pulmonary embolism; G25.81 Restless legs syndrome; Z87.440 Personal history of urinary (tract) infections; M48.00 Spinal stenosis, site unspecified; G89.3 Neoplasm related pain (acute) (chronic); R26.81 Unsteadiness on feet; E86.0 Dehydration; E11.649 Type 2 diabetes mellitus with hypoglycemia without coma; R19.7 Diarrhea, unspecified; M84.550D Pathological fracture in neoplastic disease, pelvis, subsequent encounter for fracture with routine healing; E66.9 Obesity, unspecified; R53.1 Weakness
CPT/HCPCS: 36415; 36416; 51702; 80048; 80053; 82962; 87040; 87493; 94640; 96361; 96365; 96366; 99222; 99232; 99233; 99239; 99255; 99285; J1650; U0003; 71045; 81003; 81015; 83605; 83735; 84484; 85025; 87086; J0744; J1170; J1720

== ENCOUNTER 2019-12-30 13:12 | Emergency (ER) | payer MEDICARE, MEDICAID, SELFPAY ==
[2019-12-30 13:09] VITALS: BP 114/59; PULSE 90; RESP 12; TEMP 36.6; O2SAT 93
--- NOTE | 2019-12-30 13:15 | RT.EKG_ITS ---
APPROVED REPORT Exam: Resting ECG Patient Location: E HR:99 bpm ECG Measurements Heart Rate 99 AXIS AL 59 P 0 QRSd 104 QRS 10 QT 436 T [id number] QTc 523 Conclusion Sinus rhythm...normal P axis, V-rate 60- 99 Multiform ventricular premature complexes...short R-R, variable morphology Right atrial enlargement...P>0.25mV 2 lds or<-0.24mV aVR/aVL Low voltage, precordial leads...precordial leads <1.0mV Prolonged QT interval...QTc >510mS Significant artifact with poor baseline. I have reviewed and interpreted ECG and agree with software generated interpretation.
[2019-12-30 13:17] VITALS: BP 122/53; PULSE 90; RESP 18; O2SAT 90
[2019-12-30 13:18] VITALS: RESP 21; O2SAT 92
[2019-12-30 13:19] VITALS: RESP 20
[2019-12-30 13:20] VITALS: PULSE 92; RESP 15; O2SAT 92
--- NOTE | 2019-12-30 13:31 | W.ED.GENAD ---
Discharge Plan Disposition Patient Disposition: HOME Condition: Improving Discharge Details Clinical Impression: Dizziness, Hypoglycemia, On antibiotic therapy, UTI (urinary tract infection) Primary Care Provider: ANNA TORO ED Provider: Gavi Cervantes Home Meds and New Rx's Prescriptions: Continued exemestane 25 mg tablet 25 mg PO DAILY Qty: 90 RF: 0 Xgeva 120 mg/1.7 mL (70 mg/mL) solution 120 mg SC Q4W Qty: 1.7 RF: 0 Humulin R U-500 (Conc) Kwikpen 500 unit/mL (3 mL) insulin pen 40 - 70 unit SUBCUT AC RF: 0 montelukast [Singulair] 10 MG tablet 10 mg PO DAILY RF: 0 cyanocobalamin (vitamin B-12) [Vitamin B-12] 1,000 MCG tablet 1,000 mcg PO DAILY RF: 0 folic acid 1 MG tablet 1 mg PO DAILY RF: 0 Spiriva Respimat 4 GM mist 1 puff Inhalation DAILY RF: 0 budesonide-formoterol [Symbicort] 10.2 GM HFA aerosol inhaler 2 puff Inhalation BID RF: 0 ondansetron HCl [Zofran] 8 MG tablet 8 mg PO TID PRNRF: 0 levothyroxine 150 mcg Tablet 150 mcg PO DAILY RF: 0 Trulicity 1.5 mg/0.5 mL Pen Injector 1.5 mg SUBCUT QWEEK RF: 0 Afinitor 10 mg tablet 10 mg PO DAILY RF: 0 pregabalin 200 mg capsule 200 mg PO TID RF: 0 tolterodine 4 mg capsule,extended release 24hr 4 mg PO DAILY RF: 0 atorvastatin 40 mg tablet 40 mg PO HS RF: 0 ammonium lactate 12 % Lotion 0 g topical BID Qty: 14 RF: 0 Dificid 200 mg Tablet 200 mg PO BID Qty: 10 RF: 0 enoxaparin 40 mg/0.4 mL syringe 40 mg subcut DAILY Qty: 30 RF: 0 Dificid 200 mg Tablet 200 mg PO BID Qty: 1 RF: 0 hydromorphone in 0.9 % NaCl 1 mg/mL Solution 0.4 mg IV Q1H RF: 0 ciprofloxacin HCl [Cipro] 500 mg tablet 500 mg PO BID Qty: 7 RF: 0 ciprofloxacin HCl 250 mg tablet 250 mg PO DAILY Qty: 30 RF: 0 omeprazole 40 mg Capsule,Delayed Release(Dr/Ec) 40 mg PO DAILY RF: 0 ferrous sulfate 325 mg (65 mg iron) Tablet 325 mg PO DAILY RF: 0 cranberry 450 mg Tablet 450 mg PO DAILY RF: 0 Narcan 4 mg/actuation [place],Non-Aerosol 1 spray INTRANASAL PRN PRNRF: 0 Glucagon (HCl) Emergency Kit 1 mg Recon Soln 1 mg PRN PRNRF: 0 Lactobacillus acidophilus Capsule 1,000 mmu cells PO BID Qty: 30 RF: 0 hydrocortisone 10 mg Tablet 5 mg PO DAILY@1500 Qty: 0 RF: 0 hydrocortisone 5 mg Tablet 20 mg PO DAILY Qty: 0 RF: 0 Discharge Instructions Instructions: Urinary Tract Infection in Women (ED), Hypoglycemia in a Person with Diabetes (ED), Dizziness (ED) Additional Instructions: Drink plenty of fluids and get plenty of rest. Take your antibiotics until finished. Be sure to eat frequent small well-balanced meals and check your sugar regularly. Follow-up with your primary care doctor in 1 week. Return to the emergency department with any worsening or new concerning symptoms. Discharge Data Discharge Date/Time-TO BE ENTERED AT DEPARTURE: 12/30/19 18:57 Discharge Physician: Gavi Cervantes Medical Decision Making 1315 -- 59-year-old female with a history of morbid obesity, metastatic breast cancer, diabetes, COPD, hypertension, hyperlipidemia currently on antibiotics for UTI and currently bedbound due to pathologic right pelvis fracture presents for hypoglycemia and a period of altered mental status at home just prior to arrival. She states she did not eat as much as usual today but did hold her insulin. Glucose 53 per home health which improved to 161 on EMS arrival. Fingerstick glucose within normal limits on arrival. Her vitals are within normal limits. Patient currently denies any symptoms on evaluation. Patient unable to ambulate due to her pelvis fracture and had a bowel movement on the stretcher in route with black color stool which she states is her baseline due to taking iron. Guaiac negative. Her abdomen is soft nontender. Her lungs are clear. 1700 -- Patient referred for labs and imaging. Normal WBC and lactate. Hemoglobin at baseline at 8. Urinalysis notes findings consistent with her current treated UTI. CT head and chest x-ray negative. Patient was able to eat here and recheck of her sugar within normal limits at 160. Patient denies any acute complaints and feels good to go home. Nursing staff had difficulty accessing her port while she was here but this was assessed by infusion nurse and working properly prior to discharge. Advised to continue her antibiotics as directed. Advised to follow up with the primary care doctor for re-evaluation. Usual and customary return precautions given prior to discharge. Medical Records Medical records reviewed: Yes I reviewed the patient's medical records. Imaging Data Radiologic Study: Radiologist's impression: XR CHEST 2V PA LATERAL CLINICAL HISTORY: altered mental status, r/o acute disease TECHNIQUE: COMPARISON: CR,XR XR PORTABLE CHEST AP from 12/13/2019 FINDINGS: Heart is enlarged. Lungs are grossly clear. No pleural effusion seen. Indwelling right Port-A-Cath noted the tip which overlies the SVC. IMPRESSION: Cardiomegaly, no evidence of acute process. CT HEAD WO CLINICAL HISTORY: altered mental status, r/o acute cva. TECHNIQUE: Imaging Protocol: Axial computed tomography images with coronal and sagittal reformatted images were created and reviewed COMPARISON: CT CT HEAD WO from 11/26/2019 FINDINGS: There is moderate generalized cerebral atrophy. No evidence of acute intracranial hemorrhage, mass effect, or midline shift. The orbital structures are unremarkable. The temporal bone structures appear intact. Calvarium: Normal. Visualized Paranasal sinuses/Mastoids: Clear. IMPRESSION: Cerebral atrophy, otherwise normal cranial CT Lab Data Lab results reviewed: Yes I reviewed the patient's lab results. Labs: 12/30/19 14:13 Urine - Reflex from Ua Urine Culture - Pending Laboratory Tests Range/Units 12/30/19 12/30/19 12/30/19 14:03 14:03 14:03 WBC (4.4-10.8) 10^3/uL RBC (3.93-5.22) 10^6/uL Hgb (11.2-15.7) g/dL Hct (36.0-46.0) % MCV (80-95) fL MCH (27.0-33.0) pg MCHC (32.0-36.0) % RDW (11.7-14.6) % Plt Count (130-400) 10^3/uL MPV (8.0-11.0) fL Immature Gran % Neutrophils % Lymphocytes % Monocytes % Eosinophils % Basophils % Nucleated RBC % % Absolute Neutrophils (1.2-6.7) 10^3/uL Absolute Lymphocytes (1.2-3.4) 10^3/uL Absolute Monocytes (0.1-0.8) 10^3/uL Absolute Eosinophils (0.0-0.7) 10^3/uL Absolute Basophils (0.0-0.2) 10^3/uL PT (9.3-11.0) sec 10.5 INR (0.9-1.1) 1.0 APTT (21.0-31.4) sec 26.1 VBG Lactate (0.6-1.4) mmol/L 1.2 Sodium (136-145) mmol/L 140 Potassium (3.5-5.1) mmol/L 3.9 Chloride (98-107) mmol/L 102 Carbon Dioxide (21.0-32.0) mmol/L 34.7 H Anion Gap (3-11) mmol/L 3.3 BUN (7-18) mg/dL 13 Creatinine (0.55-1.02) mg/dL 1.00 Estimated GFR/1.73 m2 (mL/min/1.73m2) 56.56 Glucose (74-106) mg/dL 132 H Calcium (8.5-10.1) mg/dL 8.5 Magnesium (1.8-2.4) mg/dL 2.2 Total Bilirubin (0.2-1.0) mg/dL 0.5 AST (15-37) U/L 182 H ALT (14-59) U/L 59 Alkaline Phosphatase (46-116) U/L 278 H Troponin I (<0.06) ng/mL < 0.05 Total Protein (6.4-8.2) g/dL 7.1 Albumin (3.4-5.0) g/dL 2.6 L Urine Color (Yellow) Urine Clarity (Clear) Urine pH (5-8) Ur Specific [place] (1.005-1.025) Urine Protein (Negative) mg/dL Urine Ketones (Negative) mg/dL Urine Blood (Negative) Urine Nitrite (Negative) Urine Bilirubin (Negative) Urine Urobilinogen (Up TO 0.2) EU/dL Ur Leukocyte Esterase (Negative) Urine RBC (0-2) HPF Urine WBC (0-5) HPF Ur Epithelial Cells (Negative) HPF Urine Crystals (Negative) HPF Urine Bacteria (Negative) HPF Urine Casts (Negative) LPF Urine Mucus (Negative) Urine Other (Negative) Ur Culture Indicated? Urine Glucose (Negative) mg/dL Range/Units 12/30/19 12/30/19 14:03 14:13 WBC (4.4-10.8) 10^3/uL 4.44 RBC (3.93-5.22) 10^6/uL 3.23 L Hgb (11.2-15.7) g/dL 8.0 L Hct (36.0-46.0) % 27.0 L MCV (80-95) fL 83.6 MCH (27.0-33.0) pg 24.8 L MCHC (32.0-36.0) % 29.6 L RDW (11.7-14.6) % 18.0 H Plt Count (130-400) 10^3/uL 159 MPV (8.0-11.0) fL 9.5 Immature Gran % 0.2 Neutrophils % 71.9 Lymphocytes % 20.0 Monocytes % 5.9 Eosinophils % 1.8 Basophils % 0.2 Nucleated RBC % % 0 Absolute Neutrophils (1.2-6.7) 10^3/uL 3.19 Absolute Lymphocytes (1.2-3.4) 10^3/uL 0.89 L Absolute Monocytes (0.1-0.8) 10^3/uL 0.26 Absolute Eosinophils (0.0-0.7) 10^3/uL 0.08 Absolute Basophils (0.0-0.2) 10^3/uL 0.01 PT (9.3-11.0) sec INR (0.9-1.1) APTT (21.0-31.4) sec VBG Lactate (0.6-1.4) mmol/L Sodium (136-145) mmol/L Potassium (3.5-5.1) mmol/L Chloride (98-107) mmol/L Carbon Dioxide (21.0-32.0) mmol/L Anion Gap (3-11) mmol/L BUN (7-18) mg/dL Creatinine (0.55-1.02) mg/dL Estimated GFR/1.73 m2 (mL/min/1.73m2) Glucose (74-106) mg/dL Calcium (8.5-10.1) mg/dL Magnesium (1.8-2.4) mg/dL Total Bilirubin (0.2-1.0) mg/dL AST (15-37) U/L ALT (14-59) U/L Alkaline Phosphatase (46-116) U/L Troponin I (<0.06) ng/mL Total Protein (6.4-8.2) g/dL Albumin (3.4-5.0) g/dL Urine Color (Yellow) Yellow Urine Clarity (Clear) Clear Urine pH (5-8) 7.0 Ur Specific [place] (1.005-1.025) 1.015 Urine Protein (Negative) mg/dL Negative Urine Ketones (Negative) mg/dL Negative Urine Blood (Negative) Small H Urine Nitrite (Negative) Negative Urine Bilirubin (Negative) Negative Urine Urobilinogen (Up TO 0.2) EU/dL 0.2 Ur Leukocyte Esterase (Negative) Moderate H Urine RBC (0-2) HPF 3-5 H Urine WBC (0-5) HPF 20-50 H Ur Epithelial Cells (Negative) HPF Negative Urine Crystals (Negative) HPF Negative Urine Bacteria (Negative) HPF Moderate Urine Casts (Negative) LPF Negative Urine Mucus (Negative) Negative Urine Other (Negative) Few renal Ur Culture Indicated? Yes Urine Glucose (Negative) mg/dL Negative ECG Data Attestation: I personally reviewed and interpreted this ECG (s) as follows: Interpretation: Rate of 99, sinus, significant artifact with poor baseline. No STEMI. HPI General Mode of arrival: EMS. Date/Time Provider Initiated Documentation: 12/30/19 13:21. Limitations to Documentation: physical limitation. Information obtained by: patient. HPI Narrative: Patient is a 59-year-old female with a history of morbid obesity, COPD, diabetes, metastatic stage IV breast cancer, currently on antibiotics for UTI presents for altered mental status with a blood glucose of 53 per EMS. Patient states home health was assessing her port today and they noted her to be confused and checked her blood sugar and it was 53. Patient does not recall if she was given something for her blood sugar but upon EMS arrival her fingerstick was 161. Patient states she did not take her insulin this morning due to her hypoglycemia. She states she has not eaten since breakfast earlier this morning. Patient states she feels fine at this time and does not feel that she needs to be here. Patient denies headache, dizziness, chest pain, shortness of breath, abdominal pain, nausea, vomiting. She states she is taking iron and has chronic loose black stools. Related Data Home Medications Medication Instructions Recorded Confirmed Spiriva Respimat 1 puff INHALATION DAILY 04/03/17 01/03/20 budesonide-formoterol [Symbicort] 2 puff INHALATION BID 04/03/17 01/03/20 cyanocobalamin (vitamin B-12) 1,000 mcg PO DAILY 04/03/17 01/03/20 [Vitamin B-12] folic acid 1 mg PO DAILY 04/03/17 01/03/20 montelukast [Singulair] 10 mg PO DAILY 04/03/17 01/03/20 ondansetron HCl [Zofran] 8 mg PO TID PRN 04/03/17 01/03/20 Trulicity 1.5 mg SUBCUT QWEEK 05/06/18 01/03/20 levothyroxine 150 mcg PO DAILY 05/06/18 01/03/20 Glucagon (HCl) Emergency Kit 1 mg PRN PRN 07/25/19 01/03/20 Narcan 1 spray INTRANASAL PRN PRN 07/25/19 01/03/20 cranberry 450 mg PO DAILY 07/25/19 01/03/20 ferrous sulfate 325 mg PO DAILY 07/25/19 01/03/20 omeprazole 40 mg PO DAILY 07/25/19 01/03/20 Lactobacillus acidophilus 1,000 mmu cells PO BID #30 cap 08/01/19 01/03/20 hydrocortisone 5 mg PO DAILY@1500 #0 tab 08/24/19 01/03/20 hydrocortisone 20 mg PO DAILY #0 tab 08/24/19 01/03/20 denosumab 120 mg/1.7 mL (70 mg/mL) 120 mg SC Q4W #1.7 ml 10/19/19 01/03/20 subcutaneous solution exemestane 25 mg tablet 25 mg PO DAILY #90 tab 10/19/19 01/03/20 Afinitor 10 mg PO DAILY 11/03/19 01/03/20 atorvastatin 40 mg PO HS 11/04/19 01/03/20 pregabalin 200 mg PO TID 11/04/19 01/03/20 tolterodine 4 mg PO DAILY 11/04/19 01/03/20 Dificid 200 mg PO BID #10 tab 11/09/19 01/03/20 ammonium lactate 0 g TOPICAL BID #14 oz 11/09/19 01/03/20 enoxaparin 40 mg SUBCUT DAILY #30 ml 11/21/19 01/03/20 Dificid 200 mg PO BID #1 tab 11/30/19 01/03/20 hydromorphone in 0.9 % NaCl 0.4 mg IV Q1H 12/14/19 01/03/20 Humulin R U-500 (Conc) Kwikpen 40 - 70 unit SUBCUT AC 12/15/19 01/03/20 ciprofloxacin HCl 250 mg PO DAILY #30 tab 12/17/19 01/03/20 ciprofloxacin HCl [Cipro] 500 mg PO BID #7 tab 12/17/19 01/03/20 Previous Rx's Medication Instructions Recorded Lactobacillus acidophilus 1,000 mmu cells PO BID #30 cap 08/01/19 hydrocortisone 5 mg PO DAILY@1500 #0 tab 08/24/19 hydrocortisone 20 mg PO DAILY #0 tab 08/24/19 denosumab 120 mg/1.7 mL (70 mg/mL) 120 mg SC Q4W #1.7 ml 10/19/19 subcutaneous solution exemestane 25 mg tablet 25 mg PO DAILY #90 tab 10/19/19 Dificid 200 mg PO BID #10 tab 11/09/19 ammonium lactate 0 g TOPICAL BID #14 oz 11/09/19 enoxaparin 40 mg SUBCUT DAILY #30 ml 11/21/19 Dificid 200 mg PO BID #1 tab 11/30/19 ciprofloxacin HCl 250 mg PO DAILY #30 tab 12/17/19 ciprofloxacin HCl [Cipro] 500 mg PO BID #7 tab 12/17/19 Allergies Allergy/AdvReac Type Severity Reaction Status Date / Time bee venom protein (honey bee) Allergy Unknown Unverified 01/03/20 09:06 adhesive tape AdvReac Mild Unverified 01/03/20 09:06 Latex, Natural Rubber AdvReac Mild Unverified 01/03/20 09:06 General Stated Complaint: AMS/LOC CARMEN: 2 Review of Systems All systems reviewed & are unremarkable except as noted in HPI and below Constitutional Constitutional: Reports as per HPI, Denies chills and Denies fever(s) Eyes Eyes: Denies blurry vision ENT Ears, Nose, Mouth, and Throat: Denies dizziness, Denies sore throat and Denies throat swelling Cardiovascular Cardiovascular: Denies chest pain and Denies dyspnea Respiratory Respiratory: Denies cough and Denies dyspnea Gastrointestinal Gastrointestinal: Denies abdominal pain, Denies diarrhea and Denies vomiting Genitourinary Genitourinary: Denies hematuria and Denies dysuria Musculoskeletal Musculoskeletal: Denies back pain and Denies numbness Integumentary/Breasts Skin/Breast: Denies lesions and Denies rash Neurologic Neurologic: Denies dizziness, Denies localized weakness and Denies numbness Allergic/Immunologic Allergic/Immunologic: Denies throat swelling [facility] Medical History Acute confusion due to infection Acute pain due to trauma Acute UTI Adenoma of pituitary benign; renoved surgically on steroids and synthroid to replete Bacteremia Citrobacter C. difficile diarrhea Cancer related pain on hydromorphone pump Carpal tunnel syndrome Chronic adrenal insufficiency Chronic pain Chronic respiratory failure with hypoxia Chronic venous stasis dermatitis COPD (chronic obstructive pulmonary disease) On nocturnal oxygen - 2L prn Depression Diabetes mellitus Insulin dependent Discharge planning issues Diverticulosis DNI (do not intubate) DNR (do not resuscitate) Dyslipidemia E. coli bacteremia Encounter for hospice care discussion Fatigue Mendoza catheter in place Goals of care, counseling/discussion History of breast cancer metastatic, with lymphatic spread and bone mets Hyperlipidemia Hypopituitarism Hypothyroidism Influenza B Iron deficiency anemia Left lower lobe pneumonia Metastatic breast cancer Obstructive sleep apnea per [facility] records Palliative care patient Pneumonia POLST (Physician Orders for Life-Sustaining Treatment) done 03/26/19; DNR/DNI Positive blood cultures Pulmonary emboli Recurrent urinary tract infection Restless leg syndrome SOB (shortness of breath) Spinal stenosis Stage IV breast cancer in female Toxic metabolic encephalopathy Uncontrolled pain Unsteady gait Urinary incontinence UTI (urinary tract infection) UTI (urinary tract infection) UTI (urinary tract infection) Surgical History H/O bilateral mastectomy H/O colonoscopy with polypectomy H/O mastectomy bilateral History of carpal tunnel release of both wrists Port-A-Cath in place Status post transsphenoidal pituitary resection Family History Father , age 83 from complications of diabetes Prostate cancer Diabetes Mother , age 79 from complications of Crohn's disease and colitis Crohn's disease Colitis Daughter No problems noted. Daughter No problems noted. Brother Arthritis severe Obesity Sister Diabetes Obesity Sister No problems noted. Sister No problems noted. Social History Smoking/Tobacco Use Status: Former Tobacco Use Smoking risk assessment performed?: Yes Alcohol Intake: never Drug use: Never Substance use type: does not use Caregiver/Support person: Yes Household members: children Number of Children: 2 Communication Needs: Hard of Hearing and Corrective Lenses Education Level: middle school Do you need help understanding health information?: Always current occupation: on disability Pets and animals: Yes (4 cats, 3 dogs, 1 bird, 6 hermit crabs) Pets and animals: cat(s), dog(s), bird(s) and other Details: hermit crabs Current gender identity: female What is your relationship status?: How often do you talk on the phone with friends or family?: once per week How often do you get together with friends or relatives?: three or more times per week Panel score (0-1 are the most socially isolated patients): 1 What type of physical activity do you participate in: none, sedentary lifestyle, wheelchair-bound and additional Details: needs a new wheelchair, cannot walk far, just a few steps Special pedro pablo needs: No Seatbelt use: always Working smoke detector in home: Yes Fire extinguisher in home: Yes Firearms in home: No Do you feel safe at home: Yes Do you feel safe in your relationship?: Yes Additional Social history: , with 2 children. 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 She is not currently working and is on disability. Has a history of tobacco, quit in 1992. Reports rare use of alcohol only. Lives with daughter Bhargavi in [place], who is her Arnold caregiver; her other daughter lives close by. Bedbound since pelvic fracture. Pain controlled with hydromorphone pump. Recent scans show progression of breast cancer. Exam Const General: ill appearing chronically Nutritional Appearance: obese morbidly obese Orientation: alert, awake and oriented x3 HENMT Head: normal to inspection Ears: hearing grossly normal bilaterally and external ears normal General nose exam: external nose normal Face and sinus: normal facial exam Mouth: mucous membranes dry Eyes General: appearance normal, both eyes and all related structures Eyelids: eyelids normal Pupils: PERRL EOM: EOM intact bilaterally Neck Neck: normal visual inspection Lymphatic: no lymphadenopathy noted Chest Chest: normal inspection of the chest Resp Effort & Inspection: normal respiratory effort and able to speak in complete sentences Auscultation: clear to auscultation bilaterally Cardio Rate: regular rate Rhythm: regular rhythm GI Inspection: normal to inspection and obesity Palpation: soft, not firm, no guarding, no hepatosplenomegaly, no masses and nontender Auscultation: hypoactive bowel sounds Back/Spine/Pelvis Thoracic/Lumbar Spine: thoracic and lumbar spine normal to inspection Skin General skin exam: no rashes or lesions noted Neuro General: patient alert and patient awake Cognition: normal cognition Speech: speech normal Motor: muscle tone normal throughout Sensory Exam: no sensory deficits noted Extrem General: capillary refill normal and no edema Other: Unable to lift right lower extremity due to recently diagnosed right pelvic fracture. Bilateral upper and left lower extremity with normal range of motion. Psych Appearance: grossly normal Mental Status: mental status grossly normal Speech and Movement: speech and movement normal Affect: normal affect Thought Process: normal Course Vital Signs Vital signs: Vital Signs Temperature 97.9 F 12/30/19 13:09 Pulse 90 12/30/19 13:09 Respiratory Rate 12 12/30/19 13:09 Blood Pressure 114/59 L 12/30/19 13:09 Pulse Oximetry 93 12/30/19 13:09 Temperature 97.9 F 12/30/19 13:09 Temperature Source Skin 12/30/19 13:09 Pulse 90 12/30/19 13:17 Pulse 92 H 12/30/19 13:20 Respiratory Rate 15 12/30/19 13:20 Respiratory Effort Non-Labored 12/30/19 13:22 Respiratory Depth Normal 12/30/19 13:19 Respiratory Pattern Normal 12/30/19 13:19 Blood Pressure 122/53 L 12/30/19 13:17 Blood Pressure Mean 71 12/30/19 13:17 Blood Pressure Position Supine 12/30/19 13:09 Pulse Oximetry 92 12/30/19 13:20 Oxygen Delivery Method Room Air 12/30/19 13:09 Oxygen Flow Rate 0 12/30/19 13:09 Pain Level 4 12/30/19 13:09
[2019-12-30 14:12] LABS: Lactate 1.2 mmol/L (0.6-1.4)
[2019-12-30 14:15] LABS: Abs Immature Grans 0.01 10^3/uL (0.0-0.06); Absolute Basophil Count 0.01 10^3/uL (0.0-0.2); Absolute Eosinophil Count 0.08 10^3/uL (0.0-0.7); Absolute Lymphocyte Count 0.89 10^3/uL (1.2-3.4); Absolute Monocyte Count 0.26 10^3/uL (0.1-0.8); Absolute Neutrophil Count 3.19 10^3/uL (1.2-6.7); Basophils % 0.2; Eosinophils % 1.8; Immature Grans % 0.2; MCH 24.8 pg (27.0-33.0); MCHC 29.6 % (32.0-36.0); MCV 83.6 fL (80-95); MPV 9.5 fL (8.0-11.0); Monocytes % 5.9; Neutrophils % 71.9; Nucleated RBC 0 %; Platelet Count 159 10^3/uL (130-400); RBC 3.23 10^6/uL (3.93-5.22); RDW-SD 54.8 fL; WBC 4.44 10^3/uL (4.4-10.8)
[2019-12-30 14:36] LABS: ALT 59 U/L (14-59); AST 182 U/L (15-37); Albumin 2.6 g/dL (3.4-5.0); Alkaline Phosphatase 278 U/L (46-116); Anion Gap 3.3 mmol/L (3-11); BUN 13 mg/dL (7-18); Bilirubin, Total 0.5 mg/dL (0.2-1.0); CO2 34.7 mmol/L (21.0-32.0); Calcium 8.5 mg/dL (8.5-10.1); Chloride 102 mmol/L (98-107); Estimated GFR 56.56 (mL/min/1.73m2); Glucose 132 mg/dL (74-106); Magnesium 2.2 mg/dL (1.8-2.4); Potassium 3.9 mmol/L (3.5-5.1); Sodium 140 mmol/L (136-145); Total Protein 7.1 g/dL (6.4-8.2)
[2019-12-30 14:38] LABS: PTT Activated 26.1 sec (21.0-31.4); Prothrombin Time 10.5 sec (9.3-11.0)
[2019-12-30 14:43] LABS: Troponin I < 0.05 ng/mL (<0.06)
[2019-12-30 14:47] LABS: Bilirubin Negative (Negative); Blood Small (Negative); Clarity Clear (Clear); Glucose Negative (Negative); Ketones Negative (Negative); Leukocyte Esterase Moderate (Negative); Nitrite Negative (Negative); Specific Gravity 1.015 (1.005-1.025); Urobilinogen 0.2 EU/dL (Up TO 0.2)
[2019-12-30 15:01] LABS: Bacteria Moderate HPF (Negative); C & S Indicated? Yes; Casts Negative LPF (Negative); Crystals Negative HPF (Negative); Epithelial Cells Negative HPF (Negative); Mucus Negative (Negative); Other Cells Few Renal (Negative); WBC 20-50 HPF (0-5)
--- NOTE | 2019-12-30 15:33 | DI.CT_ITS ---
EXAM: CT HEAD WO CLINICAL HISTORY: altered mental status, r/o acute cva. TECHNIQUE: Imaging Protocol: Axial computed tomography images with coronal and sagittal reformatted images were created and reviewed COMPARISON: CT CT HEAD WO from 11/26/2019 FINDINGS: There is moderate generalized cerebral atrophy. No evidence of acute intracranial hemorrhage, mass effect, or midline shift. The orbital structures are unremarkable. The temporal bone structures appear intact. Calvarium: Normal. Visualized Paranasal sinuses/Mastoids: Clear. IMPRESSION: Cerebral atrophy, otherwise normal cranial CT. RADIATION DOSE DELIVERED: 809.88mGy.cm Total DLP 809.88mGy.cm Total DLP DATA REPOSITORY: All CT scans at this facility are submitted to the National Radiology Data Registry (NRDR) Dose Index Registry (DIR) with the [employer] ([employer]). RADIATION OPTIMIZATION: All CT scans at this facility use at least one of these dose optimization te chniques: automated exposure control; mA and/or kV adjustment per patient size (includes targeted exa ms where dose is matched to clinical indication); or iterative reconstruction.
--- NOTE | 2019-12-30 15:34 | DI.RAD_ITS ---
EXAM: XR CHEST 2V PA LATERAL CLINICAL HISTORY: altered mental status, r/o acute disease TECHNIQUE: COMPARISON: CR,XR XR PORTABLE CHEST AP from 12/13/2019 FINDINGS: Heart is enlarged. Lungs are grossly clear. No pleural effusion seen. Indwelling right Port-A-Cath noted the tip which overlies the SVC. IMPRESSION: Cardiomegaly, no evidence of acute process. RADIATION DOSE DELIVERED: Total DLP
== END 2019-12-30 18:57 | disposition home or self-care (01) ==
PROVIDERS: Emergency Provider Physician Assistant; PCP Nurse Practitioner Family
DX: R42 Dizziness and giddiness (principal); E11.649 Type 2 diabetes mellitus with hypoglycemia without coma; N39.0 Urinary tract infection, site not specified; B96.4 Proteus (mirabilis) (morganii) as the cause of diseases classified elsewhere; C50.919 Malignant neoplasm of unspecified site of unspecified female breast; Z79.4 Long term (current) use of insulin; J44.9 Chronic obstructive pulmonary disease, unspecified; Z87.891 Personal history of nicotine dependence; I10 Essential (primary) hypertension; Z45.2 Encounter for adjustment and management of vascular access device
CPT/HCPCS: 80053; 87077; 93005; 99284; 70450; 71046; 81003; 81015; 83605; 83735; 84484; 85025; 85610; 85730; 87086; 87186; 93010

== ENCOUNTER 2020-01-03 08:58 | Emergency (ER) | payer MEDICARE, MEDICAID, SELFPAY ==
[2020-01-03] VITALS (37 sets, daily range): BP systolic 93–130; BP diastolic 40–90; PULSE 77–140; RESP 15–26; TEMP 36.5–36.6; O2SAT 97–100
[2020-01-03] MEDS: Normal Saline 500 ML IV (09:20)
[2020-01-03 09:43] LABS: Lactate 3.6 mmol/L (0.6-1.4)
[2020-01-03 09:46] LABS: Abs Immature Grans 0.02 10^3/uL (0.0-0.06); Absolute Basophil Count 0.01 10^3/uL (0.0-0.2); Absolute Eosinophil Count 0.08 10^3/uL (0.0-0.7); Absolute Monocyte Count 0.26 10^3/uL (0.1-0.8); Basophils % 0.2; Eosinophils % 1.6; HCT 27.7 % (36.0-46.0); HGB 8.2 g/dL (11.2-15.7); Immature Grans % 0.4; Lymphocytes % 18.1; MCH 24.6 pg (27.0-33.0); MCHC 29.6 % (32.0-36.0); MCV 82.9 fL (80-95); MPV 9.9 fL (8.0-11.0); Monocytes % 5.2; Neutrophils % 74.5; Nucleated RBC 0 %; Platelet Count 201 10^3/uL (130-400); RBC 3.34 10^6/uL (3.93-5.22); RDW 18.1 % (11.7-14.6); RDW-SD 54.4 fL; WBC 4.97 10^3/uL (4.4-10.8)
[2020-01-03 09:51] LABS: Bilirubin Small (Negative); Blood Trace-intact (Negative); Clarity Cloudy (Clear); Glucose Negative (Negative); Ketones Trace mg/dL (Negative); Leukocyte Esterase Small (Negative); Nitrite Negative (Negative); Specific Gravity 1.015 (1.005-1.025); pH >= 9.0 (5-8)
[2020-01-03 09:55] LABS: ALT 52 U/L (14-59); AST 164 U/L (15-37); Albumin 2.5 g/dL (3.4-5.0); Alkaline Phosphatase 263 U/L (46-116); Anion Gap 6.3 mmol/L (3-11); BUN 14 mg/dL (7-18); Bilirubin, Total 0.6 mg/dL (0.2-1.0); CO2 31.7 mmol/L (21.0-32.0); Calcium 8.4 mg/dL (8.5-10.1); Chloride 102 mmol/L (98-107); Estimated GFR 41.78 (mL/min/1.73m2); Glucose 97 mg/dL (74-106); Sodium 140 mmol/L (136-145)
[2020-01-03 09:58] LABS: Potassium 2.9 mmol/L (3.5-5.1)
[2020-01-03] MEDS: cefTRIAXone 1 GM/50 ML BAG IVPB (09:59)
[2020-01-03] MEDS: POTASSIUM CHLORIDE 20 MEQ/100 ML BAG 50 MEQ IVPB ×2 (10:07→12:18)
[2020-01-03] MEDS: Potassium Chloride 20 MEQ TABCR 40 MEQ PO (10:21)
[2020-01-03 10:29] LABS: Epithelial Cells Rare HPF (Negative)
[2020-01-03 10:30] LABS: Bacteria Many HPF (Negative); C & S Indicated? Yes; Crystals Moderate Triple Phos HPF (Negative); Mucus Moderate (Negative)
--- NOTE | 2020-01-03 10:40 | ED.GENADUL_ITS ---
Discharge Plan Discharge Details Chief Complaint: Urinary Primary Care Provider: ANNA TORO ED Provider: Faith Alcazar Home Meds and New Rx's Prescriptions: No Action exemestane 25 mg tablet 25 mg PO DAILY Qty: 90 RF: 0 Xgeva 120 mg/1.7 mL (70 mg/mL) solution 120 mg SC Q4W Qty: 1.7 RF: 0 Humulin R U-500 (Conc) Kwikpen 500 unit/mL (3 mL) insulin pen 40 - 70 unit SUBCUT AC RF: 0 montelukast [Singulair] 10 MG tablet 10 mg PO DAILY RF: 0 cyanocobalamin (vitamin B-12) [Vitamin B-12] 1,000 MCG tablet 1,000 mcg PO DAILY RF: 0 folic acid 1 MG tablet 1 mg PO DAILY RF: 0 Spiriva Respimat 4 GM mist 1 puff Inhalation DAILY RF: 0 budesonide-formoterol [Symbicort] 10.2 GM HFA aerosol inhaler 2 puff Inhalation BID RF: 0 ondansetron HCl [Zofran] 8 MG tablet 8 mg PO TID PRNRF: 0 levothyroxine 150 mcg Tablet 150 mcg PO DAILY RF: 0 Trulicity 1.5 mg/0.5 mL Pen Injector 1.5 mg SUBCUT QWEEK RF: 0 Afinitor 10 mg tablet 10 mg PO DAILY RF: 0 pregabalin 200 mg capsule 200 mg PO TID RF: 0 tolterodine 4 mg capsule,extended release 24hr 4 mg PO DAILY RF: 0 atorvastatin 40 mg tablet 40 mg PO HS RF: 0 ammonium lactate 12 % Lotion 0 g topical BID Qty: 14 RF: 0 Dificid 200 mg Tablet 200 mg PO BID Qty: 10 RF: 0 enoxaparin 40 mg/0.4 mL syringe 40 mg subcut DAILY Qty: 30 RF: 0 Dificid 200 mg Tablet 200 mg PO BID Qty: 1 RF: 0 hydromorphone in 0.9 % NaCl 1 mg/mL Solution 0.4 mg IV Q1H RF: 0 ciprofloxacin HCl [Cipro] 500 mg tablet 500 mg PO BID Qty: 7 RF: 0 ciprofloxacin HCl 250 mg tablet 250 mg PO DAILY Qty: 30 RF: 0 omeprazole 40 mg Capsule,Delayed Release(Dr/Ec) 40 mg PO DAILY RF: 0 ferrous sulfate 325 mg (65 mg iron) Tablet 325 mg PO DAILY RF: 0 cranberry 450 mg Tablet 450 mg PO DAILY RF: 0 Narcan 4 mg/actuation [place],Non-Aerosol 1 spray INTRANASAL PRN PRNRF: 0 Glucagon (HCl) Emergency Kit 1 mg Recon Soln 1 mg PRN PRNRF: 0 Lactobacillus acidophilus Capsule 1,000 mmu cells PO BID Qty: 30 RF: 0 hydrocortisone 10 mg Tablet 5 mg PO DAILY@1500 Qty: 0 RF: 0 hydrocortisone 5 mg Tablet 20 mg PO DAILY Qty: 0 RF: 0 Discharge Data Discharge Date/Time-TO BE ENTERED AT DEPARTURE: 01/03/20 13:16 Medical Decision Making Candace Maynard is a 59 y/o woman with history of multiple medical problems including stage IV breast cancer who presented to the emergency department for decreased urine output, concern for UTI. On exam patient is chronically ill- appearing. There is no abdominal tenderness palpation. 300 cc dark urine in Mendoza bag. Concern for UTI, metabolic/lyte derangement, possible early sepsis, dehydration, other. Doubt respiratory etiology. Exam/history is not consistent with acute emergent surgical intra-abdominal process, acute coronary syndrome, meningitis, encephalitis. Plan for UA, screening labs, IV fluid hydration, chest x-ray, telemetry. Will send C. difficile for report of loose stool since last night. Will monitor and reassess. UA consistent with UTI. Recent sensitivities show Proteus resistant to ciprofloxacin, sensitive to cephalosporins, plan for ceftriaxone. Lab review shows hemoglobin 8.2 (chronic) WBC 4.97, lactate 3.6, potassium 2.9, creatinine 1.3. Will replete potassium. Given history of adrenal suppression, elevated lactate, will give 100 mg hydrocortisone. Plan for admission. [facility] with no bed availability, plan for lateral transfer. Patient requests not to go to [facility] or [facility]. [facility] and [facility] report they have no bed availability for non level 1 patients. 10:41 [facility] contacted for possible lateral transfer. Awaiting callback. 10:45 [facility] contacted for possible lateral transfer. Awaiting yuko lback. Patient accepted for transfer by Dr. Alarcon at [facility]. Medical Records Medical records reviewed: Yes I reviewed the patient's medical records. Lab Data Lab results reviewed: Yes I reviewed the patient's lab results. Labs: 01/03/20 09:30 Urine - Reflex from Ua Urine Culture - Pending 01/03/20 09:31 Blood Blood Culture - Pending 01/03/20 09:40 Blood Blood Culture - Pending Laboratory Tests Range/Units 01/03/20 01/03/20 01/03/20 09:30 09:31 09:31 WBC (4.4-10.8) 10^3/uL RBC (3.93-5.22) 10^6/uL Hgb (11.2-15.7) g/dL Hct (36.0-46.0) % MCV (80-95) fL MCH (27.0-33.0) pg MCHC (32.0-36.0) % RDW (11.7-14.6) % Plt Count (130-400) 10^3/uL MPV (8.0-11.0) fL Immature Gran % Neutrophils % Lymphocytes % Monocytes % Eosinophils % Basophils % Nucleated RBC % % Absolute Neutrophils (1.2-6.7) 10^3/uL Absolute Lymphocytes (1.2-3.4) 10^3/uL Absolute Monocytes (0.1-0.8) 10^3/uL Absolute Eosinophils (0.0-0.7) 10^3/uL Absolute Basophils (0.0-0.2) 10^3/uL VBG Lactate (0.6-1.4) mmol/L 3.6 H* Sodium (136-145) mmol/L 140 Potassium (3.5-5.1) mmol/L 2.9 L* Chloride (98-107) mmol/L 102 Carbon Dioxide (21.0-32.0) mmol/L 31.7 Anion Gap (3-11) mmol/L 6.3 BUN (7-18) mg/dL 14 Creatinine (0.55-1.02) mg/dL 1.30 H Estimated GFR/1.73 m2 (mL/min/1.73m2) 41.78 Glucose (74-106) mg/dL 97 Calcium (8.5-10.1) mg/dL 8.4 L Total Bilirubin (0.2-1.0) mg/dL 0.6 AST (15-37) U/L 164 H ALT (14-59) U/L 52 Alkaline Phosphatase (46-116) U/L 263 H Total Protein (6.4-8.2) g/dL 7.0 Albumin (3.4-5.0) g/dL 2.5 L Urine Color (Yellow) Yellow Urine Clarity (Clear) Cloudy Urine pH (5-8) >= 9.0 H Ur Specific [employer] (1.005-1.025) 1.015 Urine Protein (Negative) mg/dL >=300 H Urine Ketones (Negative) mg/dL Trace H Urine Blood (Negative) Trace-intact H Urine Nitrite (Negative) Negative Urine Bilirubin (Negative) Small H Urine Urobilinogen (Up TO 0.2) EU/dL 1.0 H Ur Leukocyte Esterase (Negative) Small H Urine RBC (0-2) HPF Urine WBC (0-5) HPF 10-20 H Ur Epithelial Cells (Negative) HPF Rare Urine Crystals (Negative) HPF Moderate triple phos Urine Bacteria (Negative) HPF Many Urine Mucus (Negative) Moderate Ur Culture Indicated? Yes Urine Glucose (Negative) mg/dL Negative Range/Units 01/03/20 09:31 WBC (4.4-10.8) 10^3/uL 4.97 RBC (3.93-5.22) 10^6/uL 3.34 L Hgb (11.2-15.7) g/dL 8.2 L Hct (36.0-46.0) % 27.7 L MCV (80-95) fL 82.9 MCH (27.0-33.0) pg 24.6 L MCHC (32.0-36.0) % 29.6 L RDW (11.7-14.6) % 18.1 H Plt Count (130-400) 10^3/uL 201 MPV (8.0-11.0) fL 9.9 Immature Gran % 0.4 Neutrophils % 74.5 Lymphocytes % 18.1 Monocytes % 5.2 Eosinophils % 1.6 Basophils % 0.2 Nucleated RBC % % 0 Absolute Neutrophils (1.2-6.7) 10^3/uL 3.70 Absolute Lymphocytes (1.2-3.4) 10^3/uL 0.90 L Absolute Monocytes (0.1-0.8) 10^3/uL 0.26 Absolute Eosinophils (0.0-0.7) 10^3/uL 0.08 Absolute Basophils (0.0-0.2) 10^3/uL 0.01 VBG Lactate (0.6-1.4) mmol/L Sodium (136-145) mmol/L Potassium (3.5-5.1) mmol/L Chloride (98-107) mmol/L Carbon Dioxide (21.0-32.0) mmol/L Anion Gap (3-11) mmol/L BUN (7-18) mg/dL Creatinine (0.55-1.02) mg/dL Estimated GFR/1.73 m2 (mL/min/1.73m2) Glucose (74-106) mg/dL Calcium (8.5-10.1) mg/dL Total Bilirubin (0.2-1.0) mg/dL AST (15-37) U/L ALT (14-59) U/L Alkaline Phosphatase (46-116) U/L Total Protein (6.4-8.2) g/dL Albumin (3.4-5.0) g/dL Urine Color (Yellow) Urine Clarity (Clear) Urine pH (5-8) Ur Specific [employer] (1.005-1.025) Urine Protein (Negative) mg/dL Urine Ketones (Negative) mg/dL Urine Blood (Negative) Urine Nitrite (Negative) Urine Bilirubin (Negative) Urine Urobilinogen (Up TO 0.2) EU/dL Ur Leukocyte Esterase (Negative) Urine RBC (0-2) HPF Urine WBC (0-5) HPF Ur Epithelial Cells (Negative) HPF Urine Crystals (Negative) HPF Urine Bacteria (Negative) HPF Urine Mucus (Negative) Ur Culture Indicated? Urine Glucose (Negative) mg/dL ECG Data Attestation: I personally reviewed and interpreted this ECG (s) as follows: Interpretation: EKG shows sinus rhythm at 98 (significant artifact), normal axis, no STEMI, nondiagnostic EKG HPI General Mode of arrival: EMS . Date/Time Provider Initiated Documentation: 01/03/20 09:03 . Limitations to Documentation: no limitations . Information obtained by: patient, RN notes reviewed and old records reviewed . HPI Narrative: Candace Maynard is a 59 y/o woman with history of adrenal insufficiency, CHF, chronic kidney disease, stage IV breast cancer, COPD, indwelling Mendoza catheter presenting to the emergency department for presumed urinary tract infection. Patient reports that 2 days ago her Mendoza balloon pump, and her Mendoza was replaced by home health. Patient reports that there was a significant amount of blood in the Mendoza bag after that. Patient reports that since yesterday she has had a decreased amount of urine in the Mendoza bag, and her urine appears dark. Patient reports that she has had many UTIs in the past, and they typically present in this manner. Patient also reports that she feels generally tired and weak. She denies new pain, cough, shortness of breath, rash, numbness, focal weakness, vomiting. Patient does report that she has had loose stool since last night and has had C. difficile in the past. Patient is taking Cipro prophylactically for UTI. Related Data Home Medications Medication Instructions Recorded Confirmed Spiriva Respimat 1 puff INHALATION DAILY 04/03/17 01/03/20 budesonide-formoterol [Symbicort] 2 puff INHALATION BID 04/03/17 01/03/20 cyanocobalamin (vitamin B-12) 1,000 mcg PO DAILY 04/03/17 01/03/20 [Vitamin B-12] folic acid 1 mg PO DAILY 04/03/17 01/03/20 montelukast [Singulair] 10 mg PO DAILY 04/03/17 01/03/20 ondansetron HCl [Zofran] 8 mg PO TID PRN 04/03/17 01/03/20 Trulicity 1.5 mg SUBCUT QWEEK 05/06/18 01/03/20 levothyroxine 150 mcg PO DAILY 05/06/18 01/03/20 Glucagon (HCl) Emergency Kit 1 mg PRN PRN 07/25/19 01/03/20 Narcan 1 spray INTRANASAL PRN PRN 07/25/19 01/03/20 cranberry 450 mg PO DAILY 07/25/19 01/03/20 ferrous sulfate 325 mg PO DAILY 07/25/19 01/03/20 omeprazole 40 mg PO DAILY 07/25/19 01/03/20 Lactobacillus acidophilus 1,000 mmu cells PO BID #30 cap 08/01/19 01/03/20 hydrocortisone 5 mg PO DAILY@1500 #0 tab 08/24/19 01/03/20 hydrocortisone 20 mg PO DAILY #0 tab 08/24/19 01/03/20 denosumab 120 mg/1.7 mL (70 mg/mL) 120 mg SC Q4W #1.7 ml 10/19/19 01/03/20 subcutaneous solution exemestane 25 mg tablet 25 mg PO DAILY #90 tab 10/19/19 01/03/20 Afinitor 10 mg PO DAILY 11/03/19 01/03/20 atorvastatin 40 mg PO HS 11/04/19 01/03/20 pregabalin 200 mg PO TID 11/04/19 01/03/20 tolterodine 4 mg PO DAILY 11/04/19 01/03/20 Dificid 200 mg PO BID #10 tab 11/09/19 01/03/20 ammonium lactate 0 g TOPICAL BID #14 oz 11/09/19 01/03/20 enoxaparin 40 mg SUBCUT DAILY #30 ml 11/21/19 01/03/20 Dificid 200 mg PO BID #1 tab 11/30/19 01/03/20 hydromorphone in 0.9 % NaCl 0.4 mg IV Q1H 12/14/19 01/03/20 Humulin R U-500 (Conc) Kwikpen 40 - 70 unit SUBCUT AC 12/15/19 01/03/20 ciprofloxacin HCl 250 mg PO DAILY #30 tab 12/17/19 01/03/20 ciprofloxacin HCl [Cipro] 500 mg PO BID #7 tab 12/17/19 01/03/20 Previous Rx's Medication Instructions Recorded Lactobacillus acidophilus 1,000 mmu cells PO BID #30 cap 08/01/19 hydrocortisone 5 mg PO DAILY@1500 #0 tab 08/24/19 hydrocortisone 20 mg PO DAILY #0 tab 08/24/19 denosumab 120 mg/1.7 mL (70 mg/mL) 120 mg SC Q4W #1.7 ml 10/19/19 subcutaneous solution exemestane 25 mg tablet 25 mg PO DAILY #90 tab 10/19/19 Dificid 200 mg PO BID #10 tab 11/09/19 ammonium lactate 0 g TOPICAL BID #14 oz 11/09/19 enoxaparin 40 mg SUBCUT DAILY #30 ml 11/21/19 Dificid 200 mg PO BID #1 tab 11/30/19 ciprofloxacin HCl 250 mg PO DAILY #30 tab 12/17/19 ciprofloxacin HCl [Cipro] 500 mg PO BID #7 tab 12/17/19 Allergies Allergy/AdvReac Type Severity Reaction Status Date / Time bee venom protein (honey bee) Allergy Unknown Unverified 01/03/20 09:06 adhesive tape AdvReac Mild Unverified 01/03/20 09:06 Latex, Natural Rubber AdvReac Mild Unverified 01/03/20 09:06 General Stated Complaint: Urinary CARMEN: 4 Review of Systems Narrative: Constitutional: denies fevers, reports fatigue, generalized weakness Eyes: denies eye pain ENT: denies ear pain, dental pain, sore throat Cardiovascular: denies chest pain Respiratory: denies SOB, cough GI: denies abdominal pain, vomiting, reports diarrhea : denies flank pain MSK: denies back pain, neck pain, arthralgias, myalgias Skin: denies rash Neuro: denies headaches, numbness, focal weakness [facility] Medical History Acute confusion due to infection Acute pain due to trauma Acute UTI Adenoma of pituitary benign; renoved surgically on steroids and synthroid to replete Bacteremia Citrobacter C. difficile diarrhea Cancer related pain on hydromorphone pump Carpal tunnel syndrome Chronic adrenal insufficiency Chronic pain Chronic respiratory failure with hypoxia Chronic venous stasis dermatitis COPD (chronic obstructive pulmonary disease) On nocturnal oxygen - 2L prn Depression Diabetes mellitus Insulin dependent Discharge planning issues Diverticulosis DNI (do not intubate) DNR (do not resuscitate) Dyslipidemia E. coli bacteremia Encounter for hospice care discussion Fatigue Mendoza catheter in place Goals of care, counseling/discussion History of breast cancer metastatic, with lymphatic spread and bone mets Hyperlipidemia Hypopituitarism Hypothyroidism Influenza B Iron deficiency anemia Left lower lobe pneumonia Metastatic breast cancer Obstructive sleep apnea per [facility] records Palliative care patient Pneumonia POLST (Physician Orders for Life-Sustaining Treatment) done 03/26/19; DNR/DNI Positive blood cultures Pulmonary emboli Recurrent urinary tract infection Restless leg syndrome SOB (shortness of breath) Spinal stenosis Stage IV breast cancer in female Toxic metabolic encephalopathy Uncontrolled pain Unsteady gait Urinary incontinence UTI (urinary tract infection) UTI (urinary tract infection) UTI (urinary tract infection) Surgical History H/O bilateral mastectomy H/O colonoscopy with polypectomy H/O mastectomy bilateral History of carpal tunnel release of both wrists Port-A-Cath in place Status post transsphenoidal pituitary resection Family History Father , age 83 from complications of diabetes Prostate cancer Diabetes Mother , age 79 from complications of Crohn's disease and colitis Crohn's disease Colitis Daughter No problems noted. Daughter No problems noted. Brother Arthritis severe Obesity Sister Diabetes Obesity Sister No problems noted. Sister No problems noted. Social History Smoking/Tobacco Use Status: Former Tobacco Use Smoking risk assessment performed?: Yes Alcohol Intake: never Drug use: Never Substance use type: does not use Caregiver/Support person: Yes Household members: children Number of Children: 2 Communication Needs: Hard of Hearing and Corrective Lenses Education Level: middle school Do you need help understanding health information?: Always current occupation: on disability Pets and animals: Yes (4 cats, 3 dogs, 1 bird, 6 hermit crabs) Pets and animals: cat(s), dog(s), bird(s) and other Details: hermit crabs Current gender identity: female What is your relationship status?: How often do you talk on the phone with friends or family?: once per week How often do you get together with friends or relatives?: three or more times per week Panel score (0-1 are the most socially isolated patients): 1 What type of physical activity do you participate in: none, sedentary lifestyle, wheelchair-bound and additional Details: needs a new wheelchair, cannot walk far, just a few steps Special pedro pablo needs: No Seatbelt use: always Working smoke detector in home: Yes Fire extinguisher in home: Yes Firearms in home: No Do you feel safe at home: Yes Do you feel safe in your relationship?: Yes Additional Social history: , with 2 children. 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 She is not currently working and is on disability. Has a history of tobacco, quit in 1992. Reports rare use of alcohol only. Lives with daughter Bhargavi in [place], who is her Arnold caregiver; her other daughter lives close by. Bedbound since pelvic fracture. Pain controlled with hydromorphone pump. Recent scans show progression of breast cancer. Exam Narrative Exam Narrative: Constitutional: Chronically ill but acutely [id number], pleasant, conversing normally HENT: head atraumatic/normocephalic/normal inspection, mucous membranes moist Eyes: conjunctiva normal, sclera normal, pupils 3mm b/l Neck: no stridor, normal ROM, trachea midline Chest: normal inspection Resp: normal work of breathing, speaking in full sentences sentences Cardio: normal rate, normal rhythm GI: abdomen soft, non-tender, non-distended : Mendoza in place, 300 cc dark urine in bag, no apparent hematuria Skin: warm, dry, normal color, no rash Neuro: alert, not altered, grossly non-focal, normal tone Ext: 2+ bilateral lower extremity edema with chronic venous stasis changes bilaterally, no posterior calf tenderness to palpation Psych: normal mood, normal affect, normal behavior Course Vital Signs Vital signs: Vital Signs Temperature 36.5 C 01/03/20 09:01 Pulse 105 H 01/03/20 09:01 Respiratory Rate 22 01/03/20 09:01 Blood Pressure 130/61 01/03/20 09:01 Pulse Oximetry 98 01/03/20 09:01 Temperature 36.5 C 01/03/20 09:01 Temperature Source Skin 01/03/20 09:01 Pulse 96 H 01/03/20 10:21 Pulse 98 H 01/03/20 10:21 Respiratory Rate 16 01/03/20 10:21 Respiratory Effort Non-Labored 01/03/20 09:07 Blood Pressure 103/54 L 01/03/20 10:21 Blood Pressure Mean 65 01/03/20 10:21 Blood Pressure Position Sitting 01/03/20 09:01 Pulse Oximetry 100 01/03/20 10:21 Oxygen Delivery Method Nasal Cannula 01/03/20 09:01 Oxygen Flow Rate 2 01/03/20 09:01 Pain Level 9 01/03/20 09:01 Comment 01/03/20 09:01 Lab/Test Results Lab/Test Results: 01/03/20 09:30 Urine - Reflex from Ua Urine Culture - Pending 01/03/20 09:31 Blood Blood Culture - Pending 01/03/20 09:40 Blood Blood Culture - Pending Laboratory Tests Range/Units 01/03/20 01/03/20 01/03/20 09:30 09:31 09:31 WBC (4.4-10.8) 10^3/uL RBC (3.93-5.22) 10^6/uL Hgb (11.2-15.7) g/dL Hct (36.0-46.0) % MCV (80-95) fL MCH (27.0-33.0) pg MCHC (32.0-36.0) % RDW (11.7-14.6) % Plt Count (130-400) 10^3/uL MPV (8.0-11.0) fL Immature Gran % Neutrophils % Lymphocytes % Monocytes % Eosinophils % Basophils % Nucleated RBC % % Absolute Neutrophils (1.2-6.7) 10^3/uL Absolute Lymphocytes (1.2-3.4) 10^3/uL Absolute Monocytes (0.1-0.8) 10^3/uL Absolute Eosinophils (0.0-0.7) 10^3/uL Absolute Basophils (0.0-0.2) 10^3/uL VBG Lactate (0.6-1.4) mmol/L 3.6 H* Sodium (136-145) mmol/L 140 Potassium (3.5-5.1) mmol/L 2.9 L* Chloride (98-107) mmol/L 102 Carbon Dioxide (21.0-32.0) mmol/L 31.7 Anion Gap (3-11) mmol/L 6.3 BUN (7-18) mg/dL 14 Creatinine (0.55-1.02) mg/dL 1.30 H Estimated GFR/1.73 m2 (mL/min/1.73m2) 41.78 Glucose (74-106) mg/dL 97 Calcium (8.5-10.1) mg/dL 8.4 L Total Bilirubin (0.2-1.0) mg/dL 0.6 AST (15-37) U/L 164 H ALT (14-59) U/L 52 Alkaline Phosphatase (46-116) U/L 263 H Total Protein (6.4-8.2) g/dL 7.0 Albumin (3.4-5.0) g/dL 2.5 L Urine Color (Yellow) Yellow Urine Clarity (Clear) Cloudy Urine pH (5-8) >= 9.0 H Ur Specific [employer] (1.005-1.025) 1.015 Urine Protein (Negative) mg/dL >=300 H Urine Ketones (Negative) mg/dL Trace H Urine Blood (Negative) Trace-intact H Urine Nitrite (Negative) Negative Urine Bilirubin (Negative) Small H Urine Urobilinogen (Up TO 0.2) EU/dL 1.0 H Ur Leukocyte Esterase (Negative) Small H Urine RBC (0-2) HPF Urine WBC (0-5) HPF 10-20 H Ur Epithelial Cells (Negative) HPF Rare Urine Crystals (Negative) HPF Moderate triple phos Urine Bacteria (Negative) HPF Many Urine Mucus (Negative) Moderate Ur Culture Indicated? Yes Urine Glucose (Negative) mg/dL Negative Range/Units 01/03/20 09:31 WBC (4.4-10.8) 10^3/uL 4.97 RBC (3.93-5.22) 10^6/uL 3.34 L Hgb (11.2-15.7) g/dL 8.2 L Hct (36.0-46.0) % 27.7 L MCV (80-95) fL 82.9 MCH (27.0-33.0) pg 24.6 L MCHC (32.0-36.0) % 29.6 L RDW (11.7-14.6) % 18.1 H Plt Count (130-400) 10^3/uL 201 MPV (8.0-11.0) fL 9.9 Immature Gran % 0.4 Neutrophils % 74.5 Lymphocytes % 18.1 Monocytes % 5.2 Eosinophils % 1.6 Basophils % 0.2 Nucleated RBC % % 0 Absolute Neutrophils (1.2-6.7) 10^3/uL 3.70 Absolute Lymphocytes (1.2-3.4) 10^3/uL 0.90 L Absolute Monocytes (0.1-0.8) 10^3/uL 0.26 Absolute Eosinophils (0.0-0.7) 10^3/uL 0.08 Absolute Basophils (0.0-0.2) 10^3/uL 0.01 VBG Lactate (0.6-1.4) mmol/L Sodium (136-145) mmol/L Potassium (3.5-5.1) mmol/L Chloride (98-107) mmol/L Carbon Dioxide (21.0-32.0) mmol/L Anion Gap (3-11) mmol/L BUN (7-18) mg/dL Creatinine (0.55-1.02) mg/dL Estimated GFR/1.73 m2 (mL/min/1.73m2) Glucose (74-106) mg/dL Calcium (8.5-10.1) mg/dL Total Bilirubin (0.2-1.0) mg/dL AST (15-37) U/L ALT (14-59) U/L Alkaline Phosphatase (46-116) U/L Total Protein (6.4-8.2) g/dL Albumin (3.4-5.0) g/dL Urine Color (Yellow) Urine Clarity (Clear) Urine pH (5-8) Ur Specific [employer] (1.005-1.025) Urine Protein (Negative) mg/dL Urine Ketones (Negative) mg/dL Urine Blood (Negative) Urine Nitrite (Negative) Urine Bilirubin (Negative) Urine Urobilinogen (Up TO 0.2) EU/dL Ur Leukocyte Esterase (Negative) Urine RBC (0-2) HPF Urine WBC (0-5) HPF Ur Epithelial Cells (Negative) HPF Urine Crystals (Negative) HPF Urine Bacteria (Negative) HPF Urine Mucus (Negative) Ur Culture Indicated? Urine Glucose (Negative) mg/dL
--- NOTE | 2020-01-03 10:45 | RT.EKG_ITS ---
APPROVED REPORT Exam: Resting ECG Patient Location: E HR:98 bpm ECG Measurements Heart Rate 98 AXIS ID [id number] P [id number] QRSd 104 QRS 14 QT 338 T 12 QTc 432 Conclusion Poor quality tracing. Unable to follow p-wave. Rate appears regular
--- NOTE | 2020-01-03 11:45 | DI.RAD_ITS ---
EXAM: XR PORTABLE CHEST AP CLINICAL HISTORY: malaise TECHNIQUE: 2D digital imaging was performed. COMPARISON: CR,XR XR PORTABLE CHEST AP from 12/13/2019 FINDINGS: MEDIASTINUM: Normal. HEART: Normal. PULMONARY VASCULATURE: Normal. LUNGS: Increased markings in the right base. PLEURAL SPACE: No pleural effusion or pneumothorax. BONE:Within normal limits for the patient's age. OTHER FINDINGS:The indwelling central venous catheter is stable. IMPRESSION: Question of a right basilar infiltrate. This may represent atelectasis or pneumonia. DATA REPOSITORY: RADIATION DOSE DELIVERED:
[2020-01-03] MEDS: Hydrocortisone SOD SUC. 100 MG VIAL IVP (12:15)
--- NOTE | 2020-01-04 13:18 | NUR.NOTE ---
Nursing Note: Received call from Nurse @ [facility] regarding pt cancer medications- states she had them in her duffel bag in our department yesterday but now not in bag. Belongings room checked and contacted pharmacy via phone- no medications are in pharmacy under this patients name and no belongings in belongings room. Nurse notified that there are no belongings left behind for this patient and pt duffel bag had remained in her room with her during her stay yesterday.
--- NOTE | 2020-01-06 11:33 | NUR.NOTE ---
Nursing Note: Urine culture result came back on patient. She was transferred to [facility]. The result was faxed to that facility and Dr. Inocencio Alcazar is aware. Sachi Gallardo
== END 2020-01-03 13:16 ==
PROVIDERS: Emergency Provider Student in an Organized Health Care Education/Training Program; PCP Nurse Practitioner Family
DX: R39.0 Extravasation of urine (principal); E87.6 Hypokalemia; E27.40 Unspecified adrenocortical insufficiency; Z87.440 Personal history of urinary (tract) infections; Z95.828 Presence of other vascular implants and grafts; Z96.0 Presence of urogenital implants; J44.9 Chronic obstructive pulmonary disease, unspecified; Z99.81 Dependence on supplemental oxygen; E11.22 Type 2 diabetes mellitus with diabetic chronic kidney disease; Z79.4 Long term (current) use of insulin; Z87.891 Personal history of nicotine dependence
CPT/HCPCS: 36415; 36591; 80053; 87040; 87077; 93005; 96361; 96365; 96368; 96375; 99285; 71045; 81003; 81015; 83605; 85025; 87086; 87186; 93010; J0696; J1720; J3480

== ENCOUNTER 2020-02-08 16:54 | Inpatient (IN) | payer MEDICARE, MEDICAID, SELFPAY ==
[2020-02-08] VITALS (23 sets, daily range): BP systolic 115–135; BP diastolic 62–79; PULSE 91–101; RESP 0–20; TEMP 36.2–36.6; O2SAT 95–100
--- NOTE | 2020-02-08 17:25 | W.ED.GENAD ---
Discharge Plan Disposition Patient Disposition: [facility] Condition: Stable Discharge Details Chief Complaint: Urinary Clinical Impression: Recurrent urinary tract infection Admit Date/Time: 02/08/20 18:20 Admit Provider: Vince Ta Attending Provider: Vince Ta Primary Care Provider: ANNA TORO ED Provider: Bhargavi Myers Discharge Data Discharge Date/Time-TO BE ENTERED AT DEPARTURE: 02/08/20 19:45 Medical Decision Making Patient presents for Mendoza catheter change and suspected urinary tract infection. Stage II decubitus intergluteal crease Yasmany applied, present on arrival. IV fluid bolus given we will check urinalysis CBC and CMP, She has dark loose stool but is positive for occult blood. Discussed blood transfusion for her and she states that she would not want a blood transfusion. We will give 1 g of IV ceftriaxone based on her previous urine cultures. She has a longstanding history of C. difficile colitis and will continue empiric treatment with Dificid. admit to med/surg report and care of patient given to Dr Ta. Medical Records Medical records reviewed: Yes I reviewed the patient's medical records. Medical records narrative: Last urine culture grew 2 strains of Proteus Mirabilis which was sensitive to ceftriaxone, Lab Data Lab results reviewed: Yes I reviewed the patient's lab results. HPI General Mode of arrival: EMS. Date/Time Provider Initiated Documentation: 02/08/20 17:06. Limitations to Documentation: no limitations. Information obtained by: patient. HPI Narrative: Patient presents by EMS for evaluation of altered mental status and likely urinary tract infection. Her Mendoza catheter does need to be changed out. She has a slit in her gluteal fold that is open, present on arrival, she is afebrile and hemodynamically stable. She is awake oriented and able to provide an accurate history. Her urine is cloudy with sediment. She has had incontinence of dark stools but is positive for occult blood Related Data Home Medications Medication Instructions Recorded Confirmed Spiriva Respimat 1 puff INHALATION DAILY 04/03/17 02/08/20 budesonide-formoterol [Symbicort] 2 puff INHALATION BID 04/03/17 02/08/20 cyanocobalamin (vitamin B-12) 1,000 mcg PO DAILY 04/03/17 02/08/20 [Vitamin B-12] folic acid 1 mg PO DAILY 04/03/17 02/08/20 montelukast [Singulair] 10 mg PO DAILY 04/03/17 02/08/20 ondansetron HCl [Zofran] 8 mg PO TID PRN 04/03/17 01/03/20 Trulicity 1.5 mg SUBCUT QWEEK 05/06/18 02/08/20 levothyroxine 150 mcg PO DAILY 05/06/18 02/08/20 Glucagon (HCl) Emergency Kit 1 mg PRN PRN 07/25/19 02/08/20 Narcan 1 spray INTRANASAL PRN PRN 07/25/19 02/08/20 cranberry 450 mg PO DAILY 07/25/19 02/08/20 ferrous sulfate 325 mg PO DAILY 07/25/19 02/08/20 omeprazole 40 mg PO DAILY 07/25/19 02/08/20 Lactobacillus acidophilus 1,000 mmu cells PO BID #30 cap 08/01/19 02/08/20 denosumab 120 mg/1.7 mL (70 mg/mL) 120 mg SC Q4W #1.7 ml 10/19/19 01/03/20 subcutaneous solution exemestane 25 mg tablet 25 mg PO DAILY #90 tab 10/19/19 01/03/20 Afinitor 10 mg PO DAILY 11/03/19 02/08/20 atorvastatin 40 mg PO HS 11/04/19 01/03/20 pregabalin 200 mg PO TID 11/04/19 02/08/20 tolterodine 4 mg PO DAILY 11/04/19 01/03/20 Dificid 200 mg PO BID #10 tab 11/09/19 01/03/20 ammonium lactate 0 g TOPICAL BID #14 oz 11/09/19 01/03/20 enoxaparin 40 mg SUBCUT DAILY #30 ml 11/21/19 01/03/20 Dificid 200 mg PO BID #1 tab 11/30/19 01/03/20 hydromorphone in 0.9 % NaCl 0.4 mg IV Q1H 12/14/19 01/03/20 Humulin R U-500 (Conc) Kwikpen See Rx Instructions .ROUTE .COMPLEX 12/15/19 02/08/20 Lactobacillus acidophilus 02/08/20 [Acidophilus] abemaciclib [Verzenio] 150 mg PO BID 02/08/20 02/08/20 albuterol sulfate 1 - 2 puff INHALATION QID PRN 02/08/20 02/08/20 albuterol sulfate 2.5 mg INHALATION Q4H PRN 02/08/20 02/08/20 apixaban 5 mg PO BID 02/08/20 02/08/20 benzonatate 100 mg PO TID PRN 02/08/20 02/08/20 calcium mg PO 02/08/20 carbamazepine 200 mg PO BID 02/08/20 02/08/20 cholestyramine (with sugar) 1 packet PO BID PRN 02/08/20 02/08/20 dextromethorphan-guaifenesin 1 tab PO BID PRN 02/08/20 02/08/20 duloxetine 60 mg PO DAILY 02/08/20 02/08/20 epinephrine [EpiPen 2-Domingo] 02/08/20 exemestane 25 mg PO DAILY 02/08/20 02/08/20 fentanyl 25 mcg TRANSDERMAL Q72H 02/08/20 02/08/20 fentanyl 75 mcg TRANSDERMAL Q72H 02/08/20 02/08/20 fentanyl 100 mcg TRANSDERMAL Q72H 02/08/20 02/08/20 fluconazole [Diflucan] 150 mg PO PRN PRN 02/08/20 02/08/20 furosemide 20 mg PO PRN PRN 02/08/20 02/08/20 hydrocodone-acetaminophen 1 tab PO QID PRN 02/08/20 02/08/20 hydrocortisone 5 mg PO DAILY 02/08/20 hydrocortisone 25 mg PO DAILY 02/08/20 02/08/20 loratadine 10 mg PO DAILY 02/08/20 02/08/20 nystatin 1 applic TOPICAL BID 02/08/20 02/08/20 nystatin TOPICAL 02/08/20 ondansetron 8 mg PO Q8H PRN 02/08/20 02/08/20 oxybutynin chloride 5 mg PO TID 02/08/20 02/08/20 psyllium 02/08/20 Previous Rx's Medication Instructions Recorded Lactobacillus acidophilus 1,000 mmu cells PO BID #30 cap 08/01/19 denosumab 120 mg/1.7 mL (70 mg/mL) 120 mg SC Q4W #1.7 ml 10/19/19 subcutaneous solution exemestane 25 mg tablet 25 mg PO DAILY #90 tab 10/19/19 Dificid 200 mg PO BID #10 tab 11/09/19 ammonium lactate 0 g TOPICAL BID #14 oz 11/09/19 enoxaparin 40 mg SUBCUT DAILY #30 ml 11/21/19 Dificid 200 mg PO BID #1 tab 11/30/19 Allergies Allergy/AdvReac Type Severity Reaction Status Date / Time bee venom protein (honey bee) Allergy Unknown Unverified 01/03/20 09:06 adhesive tape AdvReac Mild Unverified 01/03/20 09:06 Latex, Natural Rubber AdvReac Mild Unverified 01/03/20 09:06 General CARMEN: 4 Review of Systems Constitutional Constitutional: Reports fatigue, Denies fever(s) and Reports weakness Eyes Eyes: Denies change in vision Cardiovascular Cardiovascular: Denies chest pain and Denies dyspnea Respiratory Respiratory: Denies cough and Denies dyspnea Gastrointestinal Gastrointestinal: Reports melena and Reports diarrhea Genitourinary Genitourinary: Reports other (Menodza not functioning needs replacement urine is concentrated cloudy with s) Integumentary/Breasts Skin/Breast: Reports lesions (Gluteal fold) Neurologic Neurologic: Reports confusion and Reports weakness Psychiatric Psychiatric: Reports confusion Endocrine Endocrine: Reports fatigue [facility] Medical History Acute confusion due to infection Acute pain due to trauma Acute UTI Adenoma of pituitary benign; renoved surgically on steroids and synthroid to replete Bacteremia Citrobacter C. difficile diarrhea Cancer related pain on hydromorphone pump Carpal tunnel syndrome Chronic adrenal insufficiency Chronic pain Chronic respiratory failure with hypoxia Chronic venous stasis dermatitis COPD (chronic obstructive pulmonary disease) On nocturnal oxygen - 2L prn Depression Diabetes mellitus Insulin dependent Discharge planning issues Diverticulosis DNI (do not intubate) DNR (do not resuscitate) Dyslipidemia E. coli bacteremia Encounter for hospice care discussion Fatigue Mendoza catheter in place Goals of care, counseling/discussion History of breast cancer metastatic, with lymphatic spread and bone mets Hyperlipidemia Hypopituitarism Hypothyroidism Influenza B Iron deficiency anemia Left lower lobe pneumonia Metastatic breast cancer Obstructive sleep apnea per [facility] records Palliative care patient Pneumonia POLST (Physician Orders for Life-Sustaining Treatment) done 03/26/19; DNR/DNI Positive blood cultures Pulmonary emboli Recurrent urinary tract infection Restless leg syndrome SOB (shortness of breath) Spinal stenosis Stage IV breast cancer in female Toxic metabolic encephalopathy Uncontrolled pain Unsteady gait Urinary incontinence UTI (urinary tract infection) UTI (urinary tract infection) UTI (urinary tract infection) Surgical History H/O bilateral mastectomy H/O colonoscopy with polypectomy H/O mastectomy bilateral History of carpal tunnel release of both wrists Port-A-Cath in place Status post transsphenoidal pituitary resection Family History Father , age 83 from complications of diabetes Prostate cancer Diabetes Mother , age 79 from complications of Crohn's disease and colitis Crohn's disease Colitis Daughter No problems noted. Daughter No problems noted. Brother Arthritis severe Obesity Sister Diabetes Obesity Sister No problems noted. Sister No problems noted. Social History Smoking/Tobacco Use Status: Former Tobacco Use Smoking risk assessment performed?: Yes Alcohol Intake: never Drug use: Never Substance use type: does not use Caregiver/Support person: Yes Household members: children Number of Children: 2 Communication Needs: Hard of Hearing and Corrective Lenses Education Level: middle school Do you need help understanding health information?: Always current occupation: on disability Pets and animals: Yes (4 cats, 3 dogs, 1 bird, 6 hermit crabs) Pets and animals: cat(s), dog(s), bird(s) and other Details: hermit crabs Current gender identity: female What is your relationship status?: How often do you talk on the phone with friends or family?: once per week How often do you get together with friends or relatives?: three or more times per week Panel score (0-1 are the most socially isolated patients): 1 What type of physical activity do you participate in: none, sedentary lifestyle, wheelchair-bound and additional Details: needs a new wheelchair, cannot walk far, just a few steps Special pedro pablo needs: No Seatbelt use: always Working smoke detector in home: Yes Fire extinguisher in home: Yes Firearms in home: No Do you feel safe at home: Yes Do you feel safe in your relationship?: Yes Additional Social history: , with 2 children. 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 She is not currently working and is on disability. Has a history of tobacco, quit in 1992. Reports rare use of alcohol only. Lives with daughter Bhargvai in [place], who is her Arnold caregiver; her other daughter lives close by. Bedbound since pelvic fracture. Pain controlled with hydromorphone pump. Recent scans show progression of breast cancer. Exam Const General: cooperative, comfortable, no acute distress and ill appearing chronically Nutritional Appearance: obese Orientation: alert, awake and oriented x3 Resp Effort & Inspection: normal respiratory effort Cardio Rate: regular rate Rhythm: regular rhythm GI Inspection: large pannus and obesity Palpation: soft Other: Mendoza draining cloudy yellow urine, with sediment Skin Lesions: lesion noted (Gluteal fold) Neuro General: patient alert, patient awake, patient oriented x3 and no focal motor deficits Extrem General: normal to inspection and full ROM
[2020-02-08] MEDS: Normal Saline 1,000 ML 1000 ML IV (17:29)
[2020-02-08 17:33] LABS: Bilirubin Small (Negative); Blood Large (Negative); Clarity Cloudy (Clear); Glucose Negative (Negative); Ketones >=160 mg/dL (Negative); Leukocyte Esterase Large (Negative); Nitrite Negative (Negative); Specific Gravity 1.025 (1.005-1.025); Urobilinogen 0.2 EU/dL (Up TO 0.2)
[2020-02-08 17:42] LABS: Abs Immature Grans 0.08 10^3/uL (0.0-0.06); Absolute Basophil Count 0.01 10^3/uL (0.0-0.2); Absolute Eosinophil Count 0.05 10^3/uL (0.0-0.7); Absolute Lymphocyte Count 2.48 10^3/uL (1.2-3.4); Absolute Monocyte Count 0.35 10^3/uL (0.1-0.8); Absolute Neutrophil Count 3.98 10^3/uL (1.2-6.7); Basophils % 0.1; Eosinophils % 0.7; HCT 24.3 % (36.0-46.0); HGB 7.2 g/dL (11.2-15.7); Immature Grans % 1.2; Lymphocytes % 35.7; MCHC 29.6 % (32.0-36.0); MCV 84.4 fL (80-95); MPV 10.6 fL (8.0-11.0); Neutrophils % 57.3; Nucleated RBC 1 %; Platelet Count 175 10^3/uL (130-400); RBC 2.88 10^6/uL (3.93-5.22); RDW 20.2 % (11.7-14.6); RDW-SD 62.2 fL; WBC 6.95 10^3/uL (4.4-10.8)
[2020-02-08 17:50] LABS: WBC >50 HPF (0-5)
[2020-02-08 17:51] LABS: Bacteria Packed HPF (Negative); C & S Indicated? Yes
[2020-02-08] MEDS: cefTRIAXone 1 GM/50 ML BAG IVPB (17:51)
[2020-02-08 18:02] LABS: ALT 68 U/L (14-59); AST 334 U/L (15-37); Albumin 2.7 g/dL (3.4-5.0); Alkaline Phosphatase 463 U/L (46-116); BUN 22 mg/dL (7-18); Bilirubin, Total 0.7 mg/dL (0.2-1.0); CREATININE 1.23 mg/dL (0.55-1.02); Calcium 9.1 mg/dL (8.5-10.1); Chloride 103 mmol/L (98-107); Estimated GFR 44.54 (mL/min/1.73m2); Glucose 228 mg/dL (74-106); Potassium 3.7 mmol/L (3.5-5.1); Sodium 142 mmol/L (136-145); Total Protein 7.3 g/dL (6.4-8.2)
[2020-02-08] MEDS: Atorvastatin 40 MG TAB PO (21:55)
--- NOTE | 2020-02-08 22:17 | HPE_ITS ---
Date of service: 02/08/20 Time of Service: 22:17 Assessment and Plan Assessment and plan (1) Recurrent urinary tract infection: Status: Acute Assessment and plan: Patient's generalized symptoms and urinalysis suggest urinary tract infection. Her symptoms are consistent with her previous episodes. With a chronic indwelling Mendoza, urine cultures can be hard to interpret, but I still think we should go with culture obtained today unless other cause of infection or metabolic derangement manifests. I agree with ceftriaxone based on last culture growing 2 strains of Proteus both sensitive to ceftriaxone. (2) Adrenal insufficiency: Status: Acute Assessment and plan: Patient has a history of adrenal insufficiency and is on oral hydrocortisone chronically. Her blood pressure has been stable here. We will treat her with stress dose IV hydrocortisone given her infection. (3) Toxic metabolic encephalopathy: Status: Acute Assessment and plan: Patient's diffuse symptoms and mild somnolence likely associate with her infection. Treat as above. (4) CHF (congestive heart failure): Status: Chronic Assessment and plan: History of CHF with preserved ejection fraction. [place] st echocardiogram 09/16/2019. current presentation not consistent with active just of heart failure. (5) Iron deficiency anemia: Status: Chronic Assessment and plan: Patient has significant anemia that is worse than at her last evaluation a month ago. She has heme positive stools, though denies gross bleeding. She is declining transfusions in the emergency room. Plan to follow her CBC in the morning and include iron studies to confirm iron deficiency. She may be amenable to iron infusion if she does not want blood transfusion. (6) Metastatic breast cancer: Status: Chronic Assessment and plan: Patient has known slow-growing metastatic breast cancer. She is unsure if she is still taking chemotherapeutic agents. We are going to hold the Verenzio that may affect immune function and it can also inflame the liver. We will try to clarify her active medications with her fabiano barnarder in the morning. (7) Diabetes mellitus: Status: Chronic Assessment and plan: Continue outpatient insulin regimen and GLP-1 antagonist. Qualifiers: Diabetes mellitus type: type 2 Diabetes mellitus senior living insulin use: with senior living use Diabetes mellitus complication status: with kidney complications Diabetes mellitus complication detail: with chronic kidney disease Chronic kidney disease stage: stage 3 (moderate) Qualified Code(s): E11.22 - Type 2 diabetes mellitus with diabetic chronic kidney disease; N18.3 - Chronic kidney disease, stage 3 (moderate); Z79.4 - senior living (current) use of insulin (8) Elevated liver function tests: Status: Acute Assessment and plan: This is been a chronic issue but slightly worse than baseline today. This may be related to her medications or progression of her breast cancer. We will follow in the morning and further assess if worsening. If not improving, I would stop the statin. (9) C. difficile diarrhea: Status: Acute Assessment and plan: Current symptoms not consistent with C. difficile diarrhea. Is not totally clear if she still taking the Dificid that she was discharged on last time. We will clarify this in the morning. (10) DVT prophylaxis: Status: Acute Assessment and plan: Patient confirmed she is not on apixaban. Will give low molecular weight heparin prophylaxis. (11) Discharge planning issues: Status: Acute Assessment and plan: Patient desires to return home after UTI is treated. She confirms DNR/DNI. Palliative care has been consulted they are following this case. History of Present Illness History of Present Illness Chief Complaint: Malaise, Mendoza fell out Narrative: 59-year-old female with multiple recent admissions and complex medical history including metastatic breast cancer on opioids pain, recurrent UTIs with indwe lling Mendoza catheter, adrenal insufficiency, anemia, and chronic C. difficile presented to emergency room after starting to fill diffuse fatigue and malaise this morning and inability to urinate after Mendoza catheter fell out. The patient relates her feeling of malaise to when she previously had UTIs. She has been living at home with caretaking support from her daughter and palliative care since her last discharge in December and she had sepsis and adrenal insufficiency secondary to UTI. Patient also notes some dark stools that are soft, though they are not diarrhea. She was discharged on Dificid due to history of severe recurrent C. difficile infection. She denies overt blood in the stool. She states she has not been taking blood thinners including apixaban. Review of Systems Constitutional Constitutional: Denies anorexia, Denies chills, Reports fatigue, Denies fever(s), Denies headache(s), Reports lethargy and Reports malaise Eyes Eyes: Denies change in vision, Denies diplopia and Denies irritation ENT Ears, Nose, Mouth, and Throat: Denies bleeding gums, Denies dizziness, Reports dry mouth, Denies headache(s), Denies nasal congestion, Denies nasal discharge and Denies sore throat Cardiovascular Cardiovascular: Denies chest pain, Denies palpitations and Denies orthopnea Respiratory Respiratory: Denies cough, Denies excessive phlegm production and Denies wheezing Gastrointestinal Gastrointestinal: Denies abdominal pain, Denies heartburn, Denies nausea and Denies vomiting Genitourinary Genitourinary: Denies hematuria, Denies dysuria and Denies urinary incontinence Musculoskeletal Musculoskeletal: Reports arthralgias Integumentary/Breasts Skin/Breast: Denies rash, Reports skin ulcer, Reports sores and Denies unusual bruising Neurologic Neurologic: Denies dizziness, Denies headache(s), Denies seizure-like activity, Denies sensory deficit and Denies tremor(s) Comments: Denies taking carbamazepine recently. Psychiatric Psychiatric: Denies mood swings and Denies panic attacks Endocrine Endocrine: Reports fatigue and Denies palpitations Hematologic/Lymphatic Hematologic/Lymphatic: Denies easy bleeding Allergic/Immunologic Allergic/Immunologic: Denies wheezing [facility] Medical History Acute confusion due to infection Acute pain due to trauma Acute UTI Adenoma of pituitary benign; renoved surgically on steroids and synthroid to replete Bacteremia Citrobacter C. difficile diarrhea Cancer related pain on hydromorphone pump Carpal tunnel syndrome Chronic adrenal insufficiency Chronic pain Chronic respiratory failure with hypoxia Chronic venous stasis dermatitis COPD (chronic obstructive pulmonary disease) On nocturnal oxygen - 2L prn Depression Diabetes mellitus Insulin dependent Discharge planning issues Diverticulosis DNI (do not intubate) DNR (do not resuscitate) Dyslipidemia E. coli bacteremia Encounter for hospice care discussion Fatigue Mendoza catheter in place Goals of care, counseling/discussion History of breast cancer metastatic, with lymphatic spread and bone mets Hyperlipidemia Hypopituitarism Hypothyroidism Influenza B Iron deficiency anemia Left lower lobe pneumonia Metastatic breast cancer Obstructive sleep apnea per [facility] records Palliative care patient Pneumonia POLST (Physician Orders for Life-Sustaining Treatment) done 03/26/19; DNR/DNI Positive blood cultures Pulmonary emboli Recurrent urinary tract infection Restless leg syndrome SOB (shortness of breath) Spinal stenosis Stage IV breast cancer in female Toxic metabolic encephalopathy Uncontrolled pain Unsteady gait Urinary incontinence UTI (urinary tract infection) UTI (urinary tract infection) UTI (urinary tract infection) Surgical History H/O bilateral mastectomy H/O colonoscopy with polypectomy H/O mastectomy bilateral History of carpal tunnel release of both wrists Port-A-Cath in place Status post transsphenoidal pituitary resection Family History Father , age 83 from complications of diabetes Prostate cancer Diabetes Mother , age 79 from complications of Crohn's disease and colitis Crohn's disease Colitis Daughter No problems noted. Daughter No problems noted. Brother Arthritis severe Obesity Sister Diabetes Obesity Sister No problems noted. Sister No problems noted. Social History (Updated 02/08/20 @ 22:28 by Vince Ta) Smoking/Tobacco Use Status: Former Tobacco Use Smoking risk assessment performed?: Yes Alcohol Intake: never Drug use: Never Substance use type: does not use Caregiver/Support person: Yes Household members: children Number of Children: 2 Communication Needs: Hard of Hearing and Corrective Lenses Education Level: middle school Do you need help understanding health information?: Always current occupation: on disability Pets and animals: Yes (4 cats, 3 dogs, 1 bird, 6 hermit crabs) Pets and animal s: cat(s), dog(s), bird(s) and other Details: hermit crabs Current gender identity: female What is your relationship status?: How often do you talk on the phone with friends or family?: once per week How often do you get together with friends or relatives?: three or more times per week Panel score (0-1 are the most socially isolated patients): 1 What type of physical activity do you participate in: none, sedentary lifestyle, wheelchair-bound and additional Details: needs a new wheelchair, cannot walk far, just a few steps Special pedro pablo needs: No Seatbelt use: always Working smoke detector in home: Yes Fire extinguisher in home: Yes Firearms in home: No Do you feel safe at home: Yes Do you feel safe in your relationship?: Yes Additional Social history: , with 2 children. 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 She is not currently working and is on disability. Has a history of tobacco, quit in 1992. Reports rare use of alcohol only. Lives with daughter Bhargavi in [place], who is her Arnold caregiver; her other daughter lives close by. Bedbound since pelvic fracture. Recent scans show progression of breast cancer. Meds Home Medications and Allergies Home Medications Medication Instructions Recorded Confirmed Type Spiriva Respimat 1 puff INHALATION DAILY 04/03/17 02/08/20 History budesonide-formoterol [Symbicort] 2 puff INHALATION BID 04/03/17 02/08/20 History cyanocobalamin (vitamin B-12) 1,000 mcg PO DAILY 04/03/17 02/08/20 History [Vitamin B-12] folic acid 1 mg PO DAILY 04/03/17 02/08/20 History montelukast [Singulair] 10 mg PO DAILY 04/03/17 02/08/20 History ondansetron HCl [Zofran] 8 mg PO TID PRN 04/03/17 01/03/20 History Trulicity 1.5 mg SUBCUT QWEEK 05/06/18 02/08/20 History levothyroxine 150 mcg PO DAILY 05/06/18 02/08/20 History Glucagon (HCl) Emergency Kit 1 mg PRN PRN 07/25/19 02/08/20 History Narcan 1 spray INTRANASAL PRN PRN 07/25/19 02/08/20 History cranberry 450 mg PO DAILY 07/25/19 02/08/20 History ferrous sulfate 325 mg PO DAILY 07/25/19 02/08/20 History omeprazole 40 mg PO DAILY 07/25/19 02/08/20 History Lactobacillus acidophilus 1,000 mmu cells PO BID #30 cap 08/01/19 02/08/20 Rx denosumab 120 mg/1.7 mL (70 mg/mL) 120 mg SC Q4W #1.7 ml 10/19/19 01/03/20 Rx subcutaneous solution exemestane 25 mg tablet 25 mg PO DAILY #90 tab 10/19/19 01/03/20 Rx Afinitor 10 mg PO DAILY 11/03/19 02/08/20 History atorvastatin 40 mg PO HS 11/04/19 01/03/20 History pregabalin 200 mg PO TID 11/04/19 02/08/20 History tolterodine 4 mg PO DAILY 11/04/19 01/03/20 History Dificid 200 mg PO BID #10 tab 11/09/19 01/03/20 Rx ammonium lactate 0 g TOPICAL BID #14 oz 11/09/19 01/03/20 Rx enoxaparin 40 mg SUBCUT DAILY #30 ml 11/21/19 01/03/20 Rx Dificid 200 mg PO BID #1 tab 11/30/19 01/03/20 Rx hydromorphone in 0.9 % NaCl 0.4 mg IV Q1H 12/14/19 01/03/20 History Humulin R U-500 (Conc) Kwikpen See Rx Instructions .ROUTE .COMPLEX 12/15/19 02/08/20 History Lactobacillus acidophilus 02/08/20 History [Acidophilus] abemaciclib [Verzenio] 150 mg PO BID 02/08/20 02/08/20 History albuterol sulfate 1 - 2 puff INHALATION QID PRN 02/08/20 02/08/20 History albuterol sulfate 2.5 mg INHALATION Q4H PRN 02/08/20 02/08/20 History apixaban 5 mg PO BID 02/08/20 02/08/20 History benzonatate 100 mg PO TID PRN 02/08/20 02/08/20 History calcium mg PO 02/08/20 History carbamazepine 200 mg PO BID 02/08/20 02/08/20 History cholestyramine (with sugar) 1 packet PO BID PRN 02/08/20 02/08/20 History dextromethorphan-guaifenesin 1 tab PO BID PRN 02/08/20 02/08/20 History duloxetine 60 mg PO DAILY 02/08/20 02/08/20 History epinephrine [EpiPen 2-Domingo] 02/08/20 History exemestane 25 mg PO DAILY 02/08/20 02/08/20 History fentanyl 25 mcg TRANSDERMAL Q72H 02/08/20 02/08/20 History fentanyl 75 mcg TRANSDERMAL Q72H 02/08/20 02/08/20 History fentanyl 100 mcg TRANSDERMAL Q72H 02/08/20 02/08/20 History fluconazole [Diflucan] 150 mg PO PRN PRN 02/08/20 02/08/20 History furosemide 20 mg PO PRN PRN 02/08/20 02/08/20 History hydrocodone-acetaminophen 1 tab PO QID PRN 02/08/20 02/08/20 History hydrocortisone 5 mg PO DAILY 02/08/20 History hydrocortisone 25 mg PO DAILY 02/08/20 02/08/20 History loratadine 10 mg PO DAILY 02/08/20 02/08/20 History nystatin 1 applic TOPICAL BID 02/08/20 02/08/20 History nystatin TOPICAL 02/08/20 History ondansetron 8 mg PO Q8H PRN 02/08/20 02/08/20 History oxybutynin chloride 5 mg PO TID 02/08/20 02/08/20 History psyllium 02/08/20 History Allergies Allergy/AdvReac Type Severity Reaction Status Date / Time bee venom protein (honey bee) Allergy Unknown Unverified 01/03/20 09:06 adhesive tape AdvReac Mild Unverified 01/03/20 09:06 Latex, Natural Rubber AdvReac Mild Unverified 01/03/20 09:06 Exam Narrative Exam Narrative: GEN: Initially somnolent, but becomes more alert and oriented x3. pleasent and cooperative. Speech is slow and history is sparse but coherent. No acute distress at rest. HEENT: Head atraumatic. Conjunctiva clear, no icterus. PEERL, EOMI. no rhinorrhea. Dry mucous membranes, edentulous, OP otherwise benign. Neck is supple with no masses or lymphadenopathy, trachea midline LUNGS: CTAB with normal effort CV: RRR with no murmurs, gallops, or rubs. ABD: +BS, soft, nontender nondistended. I do not appreciate any masses, but limited exam due to habitus. EXT: no cyanosis, clubbing, or edema MSK: No joint redness or swelling NEURO: CN 2-12 grossly intact. Normal movement of 4 extremities. Normal speech and coordination SKIN: Dressed ulcerations in gluteal cleft and left buttocks. Fissure under right side of pannus with whitish discharge and mild foul smell. Skin is warm overall. Hyperpigmented ankles bilaterally with some dry scale, but no open wounds. PSYCH: mood and affect mildly depressed. Results Labs Result diagrams: 02/08/20 17:35 02/08/20 17:35 Labs: Laboratory Results - last 24 hr 02/08/20 02/08/20 02/08/20 17:25 17:35 17:35 WBC 6.95 RBC 2.88 L Hgb 7.2 L Hct 24.3 L MCV 84.4 MCH 25.0 L MCHC 29.6 L RDW 20.2 H Plt Count 175 MPV 10.6 Immature Gran % 1.2 Neutrophils % 57.3 Lymphocytes % 35.7 Monocytes % 5.0 Eosinophils % 0.7 Basophils % 0.1 Nucleated RBC % 1 Absolute Neutrophils 3.98 Absolute Lymphocytes 2.48 Absolute Monocytes 0.35 Absolute Eosinophils 0.05 Absolute Basophils 0.01 Sodium 142 Potassium 3.7 Chloride 103 Carbon Dioxide 28.0 Anion Gap 11.0 BUN 22 H Creatinine 1.23 H Estimated GFR/1.73 m2 44.54 Glucose 228 H Calcium 9.1 Total Bilirubin 0.7 AST 334 H ALT 68 H Alkaline Phosphatase 463 H Total Protein 7.3 Albumin 2.7 L Urine Color Yellow Urine Clarity Cloudy Urine pH 7.0 Ur Specific [place] 1.025 Urine Protein 100 H Urine Ketones >=160 H Urine Blood Large H Urine Nitrite Negative Urine Bilirubin Small H Urine Urobilinogen 0.2 Ur Leukocyte Esterase Large H Urine RBC Urine WBC >50 H Ur Epithelial Cells Not Applicable Urine Crystals Not Applicable Urine Bacteria Packed Urine Mucus Not Applicable Urine Other Many renal Ur Culture Indicated? Yes Urine Glucose Negative Last Vital Signs Temp 36.2 C L 02/08/20 20:20 Pulse 91 H 02/08/20 20:20 Resp 18 02/08/20 20:20 BP 115/72 02/08/20 20:20 Pulse Ox 100 02/08/20 20:20 COVID-19 Screening Have you, or household traveled for leisure in last 14 days?: No Had IN PERSON contact w/suspected or confirmed C-19 person: No
[2020-02-08] MEDS: Hydrocortisone SOD SUC. 100 MG VIAL 50 MG IVP (23:26)
[2020-02-08] MEDS: Normal Saline Flush 10 ML SYR IVP ×2 (23:27→23:29)
[2020-02-09 03:18] VITALS: BP 152/73; PULSE 106; RESP 17; TEMP 37.7; O2SAT 96
[2020-02-09] MEDS: Levothyroxine 75 MCG TAB 150 MCG PO (06:08)
[2020-02-09 06:48] LABS: Abs Immature Grans 0.08 10^3/uL (0.0-0.06); Absolute Basophil Count 0.02 10^3/uL (0.0-0.2); Absolute Eosinophil Count 0.04 10^3/uL (0.0-0.7); Absolute Lymphocyte Count 1.72 10^3/uL (1.2-3.4); Absolute Monocyte Count 0.19 10^3/uL (0.1-0.8); Absolute Neutrophil Count 6.11 10^3/uL (1.2-6.7); Basophils % 0.2; Eosinophils % 0.5; HCT 24.9 % (36.0-46.0); HGB 7.2 g/dL (11.2-15.7); Lymphocytes % 21.1; MCH 24.7 pg (27.0-33.0); MCHC 28.9 % (32.0-36.0); MCV 85.3 fL (80-95); MPV 10.2 fL (8.0-11.0); Monocytes % 2.3; Neutrophils % 74.9; Nucleated RBC 1 %; Platelet Count 189 10^3/uL (130-400); RBC 2.92 10^6/uL (3.93-5.22); RDW 20.6 % (11.7-14.6); RDW-SD 63.3 fL; WBC 8.16 10^3/uL (4.4-10.8)
[2020-02-09 07:00] LABS: ALT 74 U/L (14-59); AST 317 U/L (15-37); Albumin 2.7 g/dL (3.4-5.0); Alkaline Phosphatase 462 U/L (46-116); Anion Gap 12.9 mmol/L (3-11); BUN 21 mg/dL (7-18); Bilirubin, Total 0.7 mg/dL (0.2-1.0); CO2 25.1 mmol/L (21.0-32.0); Calcium 8.9 mg/dL (8.5-10.1); Chloride 104 mmol/L (98-107); Estimated GFR 45.83 (mL/min/1.73m2); Glucose 221 mg/dL (74-106); Potassium 4.1 mmol/L (3.5-5.1); Sodium 142 mmol/L (136-145); Total Protein 7.5 g/dL (6.4-8.2)
[2020-02-09 07:03] LABS: Iron 40 ug/dL (50-170); Total Iron Binding Capacity 163 ug/dL (250-450); Transferrin Sat 25 % (15-50)
[2020-02-09 07:35] VITALS: BP 122/61; PULSE 89; RESP 18; TEMP 36.8; O2SAT 97
[2020-02-09] MEDS: Hydrocortisone SOD SUC. 100 MG VIAL 50 MG IVP ×2 (08:13→16:02)
[2020-02-09] MEDS: Normal Saline Flush 10 ML SYR IVP ×5 (08:14→20:17)
[2020-02-09 09:00] VITALS: TEMP 37.8
--- NOTE | 2020-02-09 09:13 | PGE_ITS ---
Date of Service Date of service: 02/09/20 Time of Service: 09:13 Assessment and Plan Assessment and plan (1) Recurrent urinary tract infection: Status: Acute Assessment and plan: Continue ceftriaxone day 2. cultures pending alex catheter changed 02/08/20 (2) Adrenal insufficiency: Status: Acute Assessment and plan: Patient has a history of adrenal insufficiency and is on oral hydrocortisone chronically. Her blood pressure has been stable here. Treated with stress dose IV hydrocortisone given her infection. (3) Toxic metabolic encephalopathy: Status: Acute Assessment and plan: Patient's diffuse symptoms and mild somnolence likely associate with her infection. Treat as above. (4) CHF (congestive heart failure): Status: Chronic Assessment and plan: History of CHF with preserved ejection fraction. Last echocardiogram 09/16/2019. current presentation not consistent with active just of heart failure. (5) Iron deficiency anemia: Status: Chronic Assessment and plan: Patient has significant anemia that is worse than at her last evaluation a month ago. She has heme positive stools, though denies gross bleeding. She is declining transfusions in the emergency room. Plan to follow her CBC in the morning and include iron studies to confirm iron deficiency. She may be amenable to iron infusion if she does not want blood transfusion. (6) Metastatic breast cancer: Status: Chronic Assessment and plan: Patient has known slow-growing metastatic breast cancer. She is unsure if she is still taking chemotherapeutic agents. We are going to hold the Verenzio that may affect immune function and it can also inflame the liver. We will try to clarify her active medications with her daughter in the morning. (7) Diabetes mellitus: Status: Chronic Assessment and plan: Continue outpatient insulin regimen and GLP-1 antagonist. Qualifiers: Chronic kidney disease stage: stage 3 (moderate) Diabetes mellitus complication detail: with chronic kidney disease Diabetes mellitus complication status: with kidney complications Diabetes mellitus penitentiary insulin use: with terminal press operator use Diabetes mellitus type: type 2 Qualified Code(s): E11.22 - Type 2 diabetes mellitus with diabetic chronic kidney disease; N18.3 - Chronic kidney disease, stage 3 (moderate); Z79.4 - jail (current) use of insulin (8) Elevated liver function tests: Status: Acute Assessment and plan: This is been a chronic issue but slightly worse than baseline today. This may be related to her medications or progression of her breast cancer. We will follow in the morning and further assess if worsening. If not improving, I would stop the statin. (9) C. difficile diarrhea: Status: Acute Assessment and plan: Current symptoms not consistent with C. difficile diarrhea. Is not totally clear if she still taking the Dificid that she was discharged on last time. We will clarify this in the morning. (10) DVT prophylaxis: Status: Acute Assessment and plan: Patient confirmed she is not on apixaban. Will give low molecular weight heparin prophylaxis. (11) Discharge planning issues: Status: Acute Assessment and plan: Patient desires to return home after UTI is treated. She confirms DNR/DNI. Palliative care has been consulted they are following this case. Subjective Subjective Patient reports: afebrile; denies tolerating liquids well, tolerating a regular diet and shortness of breath Interval history since last seen: alex draining cloudy yellow urine, patient is lethargic but arousable. denies any new c/o Exam Const General: cooperative, comfortable, no acute distress and ill appearing chronically Nutritional Appearance: obese Orientation: oriented x3 and other (lethargic but arousable) Resp Effort & Inspection: normal respiratory effort Cardio Rate: regular rate Rhythm: regular rhythm GI Inspection: large pannus and obesity Palpation: soft Skin Lesions: lesion noted (Gluteal fold) Neuro General: patient oriented x3 and no focal motor deficits Extrem General: normal to inspection and full ROM Objective Last Vital Signs Temp 37.8 C H 02/09/20 09:00 Pulse 89 02/09/20 07:35 Resp 18 02/09/20 07:35 BP 122/61 02/09/20 07:35 Pulse Ox 97 02/09/20 07:35 Laboratory Results - last 24 hr 02/08/20 02/08/20 02/08/20 17:25 17:35 17:35 WBC 6.95 RBC 2.88 L Hgb 7.2 L Hct 24.3 L MCV 84.4 MCH 25.0 L MCHC 29.6 L RDW 20.2 H Plt Count 175 MPV 10.6 Immature Gran % 1.2 Neutrophils % 57.3 Lymphocytes % 35.7 Monocytes % 5.0 Eosinophils % 0.7 Basophils % 0.1 Nucleated RBC % 1 Absolute Neutrophils 3.98 Absolute Lymphocytes 2.48 Absolute Monocytes 0.35 Absolute Eosinophils 0.05 Absolute Basophils 0.01 Sodium 142 Potassium 3.7 Chloride 103 Carbon Dioxide 28.0 Anion Gap 11.0 BUN 22 H Creatinine 1.23 H Estimated GFR/1.73 m2 44.54 Glucose 228 H Calcium 9.1 Iron TIBC Transferrin % Sat Total Bilirubin 0.7 AST 334 H ALT 68 H Alkaline Phosphatase 463 H Total Protein 7.3 Albumin 2.7 L Urine Color Yellow Urine Clarity Cloudy Urine pH 7.0 Ur Specific [place] 1.025 Urine Protein 100 H Urine Ketones >=160 H Urine Blood Large H Urine Nitrite Negative Urine Bilirubin Small H Urine Urobilinogen 0.2 Ur Leukocyte Esterase Large H Urine RBC Urine WBC >50 H Ur Epithelial Cells Not Applicable Urine Crystals Not Applicable Urine Bacteria Packed Urine Mucus Not Applicable Urine Other Many renal Ur Culture Indicated? Yes Urine Glucose Negative 02/09/20 02/09/20 02/09/20 06:30 06:30 06:30 WBC 8.16 RBC 2.92 L Hgb 7.2 L Hct 24.9 L MCV 85.3 MCH 24.7 L MCHC 28.9 L RDW 20.6 H Plt Count 189 MPV 10.2 Immature Gran % 1.0 Neutrophils % 74.9 Lymphocytes % 21.1 Monocytes % 2.3 Eosinophils % 0.5 Basophils % 0.2 Nucleated RBC % 1 Absolute Neutrophils 6.11 Absolute Lymphocytes 1.72 Absolute Monocytes 0.19 Absolute Eosinophils 0.04 Absolute Basophils 0.02 Sodium 142 Potassium 4.1 Chloride 104 Carbon Dioxide 25.1 Anion Gap 12.9 H BUN 21 H Creatinine 1.20 H Estimated GFR/1.73 m2 45.83 Glucose 221 H Calcium 8.9 Iron 40 L TIBC 163 L Transferrin % Sat 25 Total Bilirubin 0.7 AST 317 H ALT 74 H Alkaline Phosphatase 462 H Total Protein 7.5 Albumin 2.7 L Urine Color Urine Clarity Urine pH Ur Specific [place] Urine Protein Urine Ketones Urine Blood Urine Nitrite Urine Bilirubin Urine Urobilinogen Ur Leukocyte Esterase Urine RBC Urine WBC Ur Epithelial Cells Urine Crystals Urine Bacteria Urine Mucus Urine Other Ur Culture Indicated? Urine Glucose
[2020-02-09] MEDS: cefTRIAXone 2 GM/50 ML BAG IVPB (11:05)
[2020-02-09] MEDS: Nystatin CREAM 15 GM TUBE TP ×2 (11:47→20:19)
[2020-02-09] MEDS: Nystatin POWDER 60 GM JAR TP ×2 (11:47→20:19)
[2020-02-09 11:51] VITALS: TEMP 37.8
[2020-02-09] MEDS: ACETAMINOPHEN 1,000 MG/100 ML BTL 400 MG IVPB (11:51)
[2020-02-09] MEDS: Normal Saline 1,000 ML 150 ML IV ×2 (11:51→20:09)
[2020-02-09] MEDS: Insulin Aspart 300 UNITS/3 ML PEN SC (12:59)
[2020-02-09] MEDS: Patch Removal 1 EACH TD (13:02)
[2020-02-09] MEDS: Pantoprazole 40 MG VIAL IVP ×2 (14:38→20:17)
--- NOTE | 2020-02-09 15:47 | PHACLINREV_ITS ---
Pharmacy Admission Review - Admission Clinical Review (Last Updated 02/08/20 @ 23:00 by Vince Ta) Elevated liver function tests (Acute) C. difficile diarrhea (Acute) Recurrent urinary tract infection (Acute) Adrenal insufficiency (Acute) Toxic metabolic encephalopathy (Acute) DVT prophylaxis (Acute) Discharge planning issues (Acute) bee venom protein (honey bee) Allergy (Unknown, Unverified 01/03/20 09:06) adhesive tape Adverse Reaction (Mild, Unverified 01/03/20 09:06) Latex, Natural Rubber Adverse Reaction (Mild, Unverified 01/03/20 09:06) Height 5 ft 9 in Weight 120.3 kg - Comments Comments/Follow Ups: Went over Candace's home med list in detail. What is current right now on 02/09/20 should be referred to on future admissions. Consulted Chuy ELI, Dr. Centeno in [place], Melisa Malhotra in [place], and discharge paperwork from a recent admission to [facility]. Please do not refer to Dr. Ta's H&P done at 02/07 as the med rec was not done in its entirety prior to the patient being admitted to the floor. - Renal Dosing Renal Dosing: BUN 21 mg/dL (7-18) H 02/09/20 06:30 Creatinine 1.20 mg/dL (0.55-1.02) H 02/09/20 06:30 Medications needing adjustments: Reviewed List of meds needing interventions: all ok - Anticoagulation Anticoagulation: Hgb 7.2 g/dL (11.2-15.7) L 02/09/20 06:30 Hct 24.9 % (36.0-46.0) L 02/09/20 06:30 Plt Count 189 10^3/uL (130-400) 02/09/20 06:30 Creatinine 1.20 mg/dL (0.55-1.02) H 02/09/20 06:30 DVT Prohphylaxis: N/A Medications: Enoxaparin Therapeutic Anticoagulation: N/A (NOTE: I DC'D APIXAPAN FROM HOME MED LIST -- IT WAS STARTED IN JUNE THEN CHANGED TO LMWH WHICH WAS THEN DC'D BY ONCOLOGIST) Medications: Enoxaparin - Opiate Usage Evaluate Pain Scale/Pains Meds: Reviewed Scheduled Bowel Reg ordered if on Opiates?: No (acute diarrhea) - Relevant Labs Sodium 142 mmol/L (136-145) 02/09/20 06:30 Potassium 4.1 mmol/L (3.5-5.1) 02/09/20 06:30 Chloride 104 mmol/L (98-107) 02/09/20 06:30 Electrolytes, C-Reactive P, ESR: Reviewed - DM Control DM Control: Glucose 221 mg/dL (74-106) H 02/09/20 06:30 Finger Stick Blood Glucose 250 Finger Stick Blood Glucose 250 Finger Stick Blood Glucose 233 Insulin Dosing: Reviewed (Aspart ordered; home U500 was dc'd -- solomon MURILLO to review (home dose is 70-40-40)) - Heart Failure/NV EF%, MCKENNA's, B-Blockers, Diuretics: Reviewed - BP Control BP Control: Blood Pressure 122/61 If elevated: Reviewed - Qtc Review If Elevated: N/A - IV to PO Switch IV Medications: Reviewed - Home Meds Home Med List reviewed: Intervened Relevent Home Meds Not ordered & why?: Discontinued several medications that had been stopped on prior admissions but ended up getting confirmed again -- apixiban (stopped in November), Enoxaparin (stopped after november discarge by oncologist), carbamazepine (stopped due to drug interactions with oral chemo medications), duloxetine (no record of this on any med list, unsure why it was added -- nursing is aware), oxybutynin (stopped in june), Verzenio dc'd and changed to different OCAs several months ago, fentanyl patch and hydrocodone was changed to reflect most recent prescription (oncologist is managing pain), etc etc; Insulin U500 - just MD myrna notified, ammonium lactate lotion, tolterodine - Current meds Current Medication Order Review: Intervened (Patient's own chemo meds are on hold for now due to acute illness, Hydrocortisone PO order was on hold -- dc'd because the dose did not reflect corrected dose after med rec completed (increased IV dose is ordered)) - Comments Comments/Follow Ups: Ceftriaxone 2gm daily for UTI, oral vanco 125 QID for cdiff prophylaxis ordered
[2020-02-09 15:52] VITALS: BP 115/58; PULSE 102; RESP 17; TEMP 37.6; O2SAT 96
--- NOTE | 2020-02-09 17:01 | INITIAL_ITS ---
- If Service Date Differs Date of service: 02/09/20 Time of Service: 17:01 Care Management Initial Assess REASON FOR HOSPITALIZATION:: UTI PAST MEDICAL HISTORY/PAST SURGICAL HISTORY:: Medical History . Acute confusion due to infection. Acute pain due to trauma. Acute UTI. Adenoma of pituitary. benign; renoved surgically. on steroids and synthroid to replete. Bacteremia. Citrobacter. C. difficile diar lynn. Cancer related pain. on hydromorphone pump. Carpal tunnel syndrome. Chronic adrenal insufficiency. Chronic pain. Chronic respiratory failure with hypoxia. Chronic venous stasis dermatitis. COPD (chronic obstructive pulmonary disease). On nocturnal oxygen - 2L prn. Depression. Diabetes mellitus. Insulin dependent. Discharge planning issues. Diverticulosis. DNI (do not intubate). DNR (do not resuscitate). Dyslipidemia. E. coli bacteremia. Encounter for hospice care discussion. Fatigue. Goals of care, counseling/discussion. History of breast cancer. metastatic, with lymphatic spread and bone mets. Hyperlipidemia. Hypopituitarism. Hypothyroidism. Influenza B. Iron deficiency anemia. Left lower lobe pneumonia. Metastatic breast cancer. Obstructive sleep apnea. per [facility] records. Palliative care patient. Pneumonia. POLST (Physician Orders for Life- Sustaining Treatment). done 03/26/19; DNR/DNI. Positive blood cultures. Pulmonary emboli. Recurrent urinary tract infection. Restless leg syndrome. SOB (shortness of breath). Spinal stenosis. Stage IV breast cancer in female. Toxic metabolic encephalopathy. Uncontrolled pain. Unsteady gait. Urinary incontinence. UTI (urinary tract infection). Surgical History . H/O bilateral mastectomy. H/O colonoscopy with polypectomy. H/O mastectomy. bilateral. History of carpal tunnel release of both wrists. Port-A-Cath in place. Status post transsphenoidal pituitary resection PREVIOUS FUNCTIONAL STATUS/SOCIAL/FAMILY SUPPORTS:: Candace lives in a single family home with her daughter Kiki and her granddaughter, in [facility]. She has two daughters who reside locally. She is currently disabled and receives [facility] highest needs. Kiki is her primary caregiver. Candace has utilized a walker for ambulation, and a wheeled walker for distance, however since her recent pelvic fracture she has been bedbound. She has been dependent on her daughter for transportation to and from appointments, however at this point she require EMS transport. CURRENT FUNCTIONAL STATUS:: Candace was lying in bed when CM met with her. She was flushed and somnolent and warm to the touch. Candace had a low grade fever this morning and blood cultures were drawn. While she appeared to recognize CM, she was unable to participate in conversation. ADVANCE DIRECTIVES:: on file - Kiki RODRIGUEZOA Has patient been provided with info about the portal/API?: Yes Did the patient sign up for the portal?: No CODE STATUS:: DNR/DNI INSURANCE COVERAGE / FINANCIAL ISSUES:: Medicare. Medicaid [facility] high highest CURRENT HOME/COMMUNITY SERVICES/EQUIPMENT:: hospital bed, commode, w/c, walker, Home health nursingl. [facility] highest needs- daughter Kiki caregiver PRIMARY CARE PHYSICIAN:: Nurys Martinez POTENTIAL DISCHARGE NEEDS:: Pain control, continued home health, follow up with providers PATIENT/FAMILY EDUCATION NEEDS:: Discharge and follow up plans, limitations, Ask Me Three TRANSPORTATION:: via ambulance coordinated by CM PLAN:: Candace will likely return home with a resumption of services. She will follow up with her PCP and Oncologist and plan of care and transport via ambulance. CM will continue to support Candace and her family and their discharge planning needs.
[2020-02-09] MEDS: Normal Saline 500 ML 1000 ML IV (18:00)
--- NOTE | 2020-02-09 19:00 | PCNE_ITS ---
Date of service: 02/09/20 History of Present Illness History of Present Illness Chief Complaint: admitted with recurrent urosepsis, advanced metastatic breast cancer Narrative: I saw Candace in her room. We spoke to her daughter Bhargavi and her oncologist by phone. She continues to fail. Since I saw her last, her pain control was changed from hydromorphone CADD pump to patches. Montse, her daughter, doesn't think the patches are working. It is unclear to staff what her patches are supposed to be. Changed to this when she was inpatient at [facility]. Her oncologist Dr Walden stated that Candace has been offered a new medication with a very low chance of working. He stated that she was considering it. She is confused and lethargic during my visit and cannot make adequate decisions. When I spoke to Montse, she said she wants to make sure her mother is comfortable number one. She knows she is very weak. She would not be surprised if she is too weak to take another cancer treatment. Candace has not been eating or drinking much at home. She appears to be dying. I believe she has less than a month to live. Consults Consult date: 02/09/20 Requesting physician: Bhargavi Myers Assessment and Plan Assessment and plan (1) Recurrent urinary tract infection: Status: Acute Assessment and plan: being treated by hospitalized team contributing to her relative malaise, fatigue, lethargy (2) Toxic metabolic encephalopathy: Status: Acute Assessment and plan: usually clear with IVF and abx some delirium today wants pain controlled wants to go home when able explained to her that I did not think she was strong enough to have another cancer tx, especially if likelihood of effect is low (3) Palliative care status: Status: Chronic (4) Fatigue: Status: Chronic Assessment and plan: severe from her chronic cancer and acute infx Qualifiers: Fatigue type: due to neoplasm Qualified Code(s): R53.0 - Neoplastic (malignant) related fatigue (5) Stage IV breast cancer in female: Status: Chronic Assessment and plan: Her recent imaging showed progression of disease. Her axillary mass is palpably larger. She looks worse. Her PPS is 30-40% at best. Given this, I think she has only weeks left to live. Strongly recommend that she focus on her comfort, stop pursuing cancer tx, as I fear this is shortening her life and increasing her suffering at this time. Needs pain controlled at all times. Not good for her QOL to have chronic pain. (6) Cancer related pain: Status: Chronic Assessment and plan: restart hydromorphone CADD pump Review of Systems Constitutional Constitutional: Reports fatigue, Denies fever(s) and Reports weakness Eyes Eyes: Denies change in vision Cardiovascular Cardiovascular: Denies chest pain and Denies dyspnea Respiratory Respiratory: Denies cough and Denies dyspnea Gastrointestinal Gastrointestinal: Reports melena and Reports diarrhea Genitourinary Genitourinary: Reports other (Mendoza not functioning needs replacement urine is concentrated cloudy with s) Integumentary/Breasts Skin/Breast: Reports lesions (Gluteal fold) Neurologic Neurologic: Reports confusion and Reports weakness Psychiatric Psychiatric: Reports confusion Endocrine Endocrine: Reports fatigue [facility] Medical History Acute confusion due to infection Acute pain due to trauma Acute UTI Adenoma of pituitary benign; renoved surgically on steroids and synthroid to replete Bacteremia Citrobacter C. difficile diarrhea Cancer related pain on hydromorphone pump Carpal tunnel syndrome Chronic adrenal insufficiency Chronic pain Chronic respiratory failure with hypoxia Chronic venous stasis dermatitis COPD (chronic obstructive pulmonary disease) On nocturnal oxygen - 2L prn Depression Diabetes mellitus Insulin dependent Discharge planning issues Diverticulosis DNI (do not intubate) DNR (do not resuscitate) Dyslipidemia E. coli bacteremia Encounter for hospice care discussion Fatigue Mendoza catheter in place Goals of care, counseling/discussion History of breast cancer metastatic, with lymphatic spread and bone mets Hyperlipidemia Hypopituitarism Hypothyroidism Influenza B Iron deficiency anemia Left lower lobe pneumonia Metastatic breast cancer Obstructive sleep apnea per [facility] records Palliative care patient Pneumonia POLST (Physician Orders for Life-Sustaining Treatment) done 03/26/19; DNR/DNI Positive blood cultures Pulmonary emboli Recurrent urinary tract infection Restless leg syndrome SOB (shortness of breath) Spinal stenosis Stage IV breast cancer in female Toxic metabolic encephalopathy Uncontrolled pain Unsteady gait Urinary incontinence UTI (urinary tract infection) UTI (urinary tract infection) UTI (urinary tract infection) Surgical History H/O bilateral mastectomy H/O colonoscopy with polypectomy H/O mastectomy bilateral History of carpal tunnel release of both wrists Port-A-Cath in place Status post transsphenoidal pituitary resection Family History Father , age 83 from complications of diabetes Prostate cancer Diabetes Mother , age 79 from complications of Crohn's disease and colitis Crohn's disease Colitis Daughter No problems noted. Daughter No problems noted. Brother Arthritis severe Obesity Sister Diabetes Obesity Sister No problems noted. Sister No problems noted. Social History Smoking/Tobacco Use Status: Former Tobacco Use Smoking risk assessment performed?: Yes Alcohol Intake: never Drug use: Never Substance use type: does not use Caregiver/Support person: Yes Household members: children Number of Children: 2 Communication Needs: Hard of Hearing and Corrective Lenses Education Level: middle school Do you need help understanding health information?: Always current occupation: on disability Pets and animals: Yes (4 cats, 3 dogs, 1 bird, 6 hermit crabs) Pets and animals: cat(s), dog(s), bird(s) and other Details: hermit crabs Current gender identity: female What is your relationship status?: How often do you talk on the phone with friends or family?: once per week How often do you get together with friends or relatives?: three or more times per week Panel score (0-1 are the most socially isolated patients): 1 What type of physical activity do you participate in: none, sedentary lifestyle, wheelchair-bound and additional Details: needs a new wheelchair, cannot walk far, just a few steps Special pedro pablo needs: No Seatbelt use: always Working smoke detector in home: Yes Fire extinguisher in home: Yes Firearms in home: No Do you feel safe at home: Yes Do you feel safe in your relationship?: Yes Additional Social history: , with 2 children. 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 She is not currently working and is on disability. Has a history of tobacco, quit in 1992. Reports rare use of alcohol only. Lives with daughter Bhargavi in [place], who is her Arnold caregiver; her other daughter lives close by. Bedbound since pelvic fracture. Recent scans show progression of breast cancer. Exam Const General: cooperative, no acute distress and ill appearing chronically Nutritional Appearance: obese Orientation: oriented x3 and other (lethargic but arousable) Eyes Conjunctivae: conjunctivae normal Sclera: sclerae normal Neck Neck: lymphadenopathy (left supraclavicular) Chest Breast inspection: abnormal inspection of the axilla (left LAD, large fixed masses) and abnormal inspection of the breast (bilateral mastectomies) Resp Effort & Inspection: normal respiratory effort Cardio Rate: regular rate Rhythm: regular rhythm GI Inspection: large pannus and obesity Palpation: soft Skin Lesions: lesion noted (Gluteal fold) Neuro General: no focal motor deficits Extrem General: normal to inspection and full ROM Psych Appearance: disheveled Speech and Movement: delayed speech and slowed movement Affect: blunted Attitude: cooperative Results Last Vital Signs Temp 99.7 F H 02/09/20 15:52 Pulse 102 H 02/09/20 15:52 Resp 17 02/09/20 15:52 BP 115/58 L 02/09/20 15:52 Pulse Ox 96 02/09/20 15:52 Labs Result diagrams: 02/15/20 06:20 02/15/20 06:20 Labs: Laboratory Results - last 24 hr 02/09/20 02/09/20 02/09/20 06:30 06:30 06:30 WBC 8.16 RBC 2.92 L Hgb 7.2 L Hct 24.9 L MCV 85.3 MCH 24.7 L MCHC 28.9 L RDW 20.6 H Plt Count 189 MPV 10.2 Immature Gran % 1.0 Neutrophils % 74.9 Lymphocytes % 21.1 Monocytes % 2.3 Eosinophils % 0.5 Basophils % 0.2 Nucleated RBC % 1 Absolute Neutrophils 6.11 Absolute Lymphocytes 1.72 Absolute Monocytes 0.19 Absolute Eosinophils 0.04 Absolute Basophils 0.02 Sodium 142 Potassium 4.1 Chloride 104 Carbon Dioxide 25.1 Anion Gap 12.9 H BUN 21 H Creatinine 1.20 H Estimated GFR/1.73 m2 45.83 Glucose 221 H Calcium 8.9 Iron 40 L TIBC 163 L Transferrin % Sat 25 Total Bilirubin 0.7 AST 317 H ALT 74 H Alkaline Phosphatase 462 H Total Protein 7.5 Albumin 2.7 L
[2020-02-09 19:55] VITALS: BP 146/77; PULSE 101; RESP 19; TEMP 37.5; O2SAT 95
[2020-02-09] MEDS: Vancomycin 125 MG CAP PO (20:18)
[2020-02-09] MEDS: Pregabalin 100 MG CAP 200 MG PO (20:18)
[2020-02-09] MEDS: Budesonide/Formoterol 160/4.5 6 GM 60 PUFF INH IH (20:18)
[2020-02-09] MEDS: Lactobacillus Acidophilus CAP 1 CAP PO (20:18)
[2020-02-09] MEDS: Atorvastatin 40 MG TAB PO (21:13)
[2020-02-10] MEDS: Normal Saline Flush 10 ML SYR IVP ×3 (00:08→20:23)
[2020-02-10] MEDS: Hydrocortisone SOD SUC. 100 MG VIAL 50 MG IVP ×2 (00:08→08:26)
[2020-02-10 00:15] VITALS: BP 144/79; PULSE 95; RESP 20; TEMP 36.7; O2SAT 98
[2020-02-10] MEDS: Normal Saline 1,000 ML 150 ML IV ×4 (03:05→23:49)
[2020-02-10] MEDS: Levothyroxine 75 MCG TAB 150 MCG PO (05:53)
[2020-02-10 07:57] VITALS: BP 127/63; PULSE 86; RESP 18; TEMP 36.8; O2SAT 96
[2020-02-10] MEDS: Tiotropium Bromide-Respimat 10 PUFF INH IH (07:58)
[2020-02-10] MEDS: Budesonide/Formoterol 160/4.5 6 GM 60 PUFF INH IH ×2 (07:58→20:22)
[2020-02-10] MEDS: Insulin Aspart 300 UNITS/3 ML PEN SC ×3 (08:24→16:50)
[2020-02-10] MEDS: Pantoprazole 40 MG VIAL IVP ×2 (08:25→20:21)
[2020-02-10 08:28] LABS: COVID-19 RT-PCR UVMMC Result Negative (Negative)
[2020-02-10] MEDS: Enoxaparin 40 MG/0.4 ML SYR SC (08:28)
[2020-02-10] MEDS: Pregabalin 100 MG CAP 200 MG PO ×3 (08:29→20:21)
[2020-02-10] MEDS: Lactobacillus Acidophilus CAP 1 CAP PO ×2 (08:29→20:21)
[2020-02-10] MEDS: Vancomycin 125 MG CAP PO ×4 (08:29→20:22)
[2020-02-10] MEDS: Montelukast 10 MG TAB PO (08:29)
[2020-02-10] MEDS: Loratidine 10 MG TAB PO (08:29)
[2020-02-10] MEDS: Psyllium PKT 1 EACH PO (08:29)
[2020-02-10] MEDS: Nystatin CREAM 15 GM TUBE TP ×2 (08:29→20:23)
[2020-02-10] MEDS: Nystatin POWDER 60 GM JAR TP ×2 (08:29→20:23)
[2020-02-10] MEDS: Cyanocobalamin 500 MCG TAB 1000 MCG PO (08:29)
[2020-02-10] MEDS: Folic Acid 1 MG TAB PO (08:29)
[2020-02-10] MEDS: cefTRIAXone 2 GM/50 ML BAG IVPB (10:46)
[2020-02-10] MEDS: HYDROmorphone 2 MG/ML VIAL IVP (11:50)
--- NOTE | 2020-02-10 14:11 | NS.NUTBLAN_ITS ---
Date of service: 02/10/20 Time of Service: 14:11 Nutritional Consult ASSESSMENT: Candace has lost 44 lbs in last 8 weeks. BMI high but rate of loss (- 16%) indicates malnutrition of acute and chronic illness. PMH: UTI, C. Diff, hx of CHF, DM, CKD, metastatic breast cancer with recent pelvic fracture leaving her bed bound. Cared for at home by her daughters. Unable to meet with Candace today as covid pending. Following Diabetic Diet with frequent meal refusals. At high nutritional risk, at high risk for skin breakdown. Labs indicates elevated BS, BUN, Cre and liver enzymes. Followed by pallative care team. Most recent A1C: 8.5%, home meds include ss insulin. NUTRITIONAL DIAGNOSIS: Malnutrition of chronic disease in view of 16% weight loss in last 8 weeks INTERVENTION: Continue diabetic diet, comfort main goal at this time MONITORING AND EVALUATION: wt, po intake, labs Time Spent in Nutritional Counseling and Treatment: 0
--- NOTE | 2020-02-10 15:34 | W.PM.PROGNOT ---
Date of Service Date of service: 02/10/20 Time of Service: 15:34 Assessment and Plan Assessment and plan (1) Recurrent urinary tract infection: Status: Acute Assessment and plan: Continue ceftriaxone day 3. cultures pending alex catheter changed 02/08/20 (2) Adrenal insufficiency: Status: Acute Assessment and plan: Patient has a history of adrenal insufficiency and is on oral hydrocortisone chronically. Her blood pressure has been stable here. Treated with stress dose IV hydrocortisone given her infection. (3) Toxic metabolic encephalopathy: Status: Resolved Assessment and plan: resolved, (4) CHF (congestive heart failure): Status: Chronic Assessment and plan: History of CHF with preserved ejection fraction. Last echocardiogram 09/16/2019. current presentation not consistent with active congestive heart failure. will stop IV fluids as she is now taking good PO (5) Iron deficiency anemia: Status: Chronic Assessment and plan: Patient has significant anemia that is worse than at her last evaluation a month ago. She has heme positive stools, though denies gross bleeding. She is declining transfusions in the emergency room. Plan to follow her CBC in the morning and include iron studies to confirm iron deficiency. She may be amenable to iron infusion if she does not want blood transfusion. (6) Metastatic breast cancer: Status: Chronic Assessment and plan: Patient has known slow-growing metastatic breast cancer. She is unsure if she is still taking chemotherapeutic agents. We are going to hold the Verenzio that may affect immune function and it can also inflame the liver. We will try to clarify her active medications with her daughter in the morning. (7) Diabetes mellitus: Status: Chronic Assessment and plan: Continue outpatient insulin regimen and GLP-1 antagonist. Qualifiers: Chronic kidney disease stage: stage 3 (moderate) Diabetes mellitus complication detail: with chronic kidney disease Diabetes mellitus complication status: with kidney complications Diabetes mellitus longterm insulin use: with longterm use Diabetes mellitus type: type 2 Qualified Code(s): E11.22 - Type 2 diabetes mellitus with diabetic chronic kidney disease; N18.3 - Chronic kidney disease, stage 3 (moderate); Z79.4 - meterman (current) use of insulin (8) Elevated liver function tests: Status: Acute Assessment and plan: stable, consider stopping statin if worsening (9) C. difficile diarrhea: Status: Acute Assessment and plan: Current symptoms not consistent with C. difficile diarrhea. Is not totally clear if she still taking the Dificid that she was discharged on last time. We will clarify this in the morning. (10) DVT prophylaxis: Status: Acute Assessment and plan: low molecular weight heparin prophylaxis. (11) Discharge planning issues: Status: Acute Assessment and plan: Patient desires to return home after UTI is treated. She confirms DNR/DNI. Palliative care has been consulted they are following this case. (12) Palliative care patient: Status: Chronic Assessment and plan: dilaudid pump was discontinued last month when she was hospitalized at [facility] she was placed on a fentanyl patch which was removed yesterday for somnolence. she is awake today and reporting her typical pain. discussed with Dr Royal who recommends resuming Dilaudid pump. will will start at 0.2 mg/hr and adjust as needed. Subjective Subjective Patient reports: feels better, tolerating liquids well, tolerating a regular diet and afebrile Interval history since last seen: alex draining clear yellow urine. Exam Const General: cooperative, comfortable, no acute distress and ill appearing chronically Nutritional Appearance: obese Orientation: alert, awake and oriented x3 HENMT Head: normal to inspection, normocephalic and atraumatic Mouth: oral mucosae normal Resp Effort & Inspection: normal respiratory effort and able to speak in complete sentences Cardio Rate: regular rate Rhythm: regular rhythm GI Inspection: large pannus and obesity Palpation: soft General: other (alex draining clear yellow urine) Skin Lesions: lesion noted (Gluteal fold) Neuro General: patient alert, patient awake, patient oriented x3 and no focal motor deficits Cognition: normal cognition Speech: speech normal Extrem General: normal to inspection and full ROM Objective Last Vital Signs Temp 36.8 C 02/10/20 07:57 Pulse 86 02/10/20 07:57 Resp 18 02/10/20 07:57 BP 127/63 02/10/20 07:57 Pulse Ox 96 02/10/20 07:57 Laboratory Results - last 24 hr 02/08/20 18:50 COVID-19 PCR Negative Nasopharyn COVID-19 PCR Not Applicable Ref Test Perform Site [facility] lab
[2020-02-10] MEDS: HYDROmorphone 100 MG in CADD PUMP CASSETTE 1 EACH, Normal Saline 90 ML SC INF (15:56)
[2020-02-10 16:10] VITALS: BP 131/68; PULSE 92; RESP 17; TEMP 36.7; O2SAT 97
--- NOTE | 2020-02-10 16:26 | CHAPLAIN ---
Candace was much more like her usual self today after being very groggy and less responsive yesterday. Candace is very familiar to staff her due to frequent hospitalizations, usually for UTIs. Candace lives with her daughter and granddaughter. Her daughter is her caregiver. Candace has stage 4 breast cancer and fell recently and is dealing with a hip fracture. The last time she was hospitalized, she went to [facility] because there were no beds here. She wasn't happy with her experience at [facility]. Call has talked in the past about knowing the life is limited by the cancer, and had told Dr. Nevaeh Royal, from Palliative Care, that as long as she can lifte her head and communicate with others, she wishes to receive treatment. Candace is close to her daughter, as well as to the beds in their home, especially her dog.
--- NOTE | 2020-02-10 20:02 | PDOC.CMPRO ---
- If Service Date Differs Date of service: 02/10/20 Time of Service: 20:02 Care Management Progress Note S/O: Candace was sitting up in bed when CM met with her. She was much more awake and interactive than yesterday and revealed glimpses of her usual good humor. Candace stated that she has been in pain since her discharge from [facility] a few weeks ago. Her CAD pump was discontinued while she was there but neither Candace nor her daughter/POA Kiki have been told why that happened. She has been on a Fentanyl patch but Candace states that it was not as effective. Candace shared some details of her experience at [facility] and both she and Kiki requested that it be documented that she never wants to go back to that facility. Candace noted that she is feeling much better today and clinically she is doing well. her WBC is normal, her BPs are stable and she remains afebrile. A: Candace is a 59 year old woman admitted on 02/09/20 with a UTI P: Candace will likely be discharged home with a resumption of home health nursing services. She will follow up with her community providers including Dr. Walden her Oncologist and Nurys Martinez her PCP. She will transport via ambulance coordinated by ЮЛИ[facility]. CM will continue to support Candace, her family and assess for discharge planning needs.
[2020-02-10] MEDS: Ferrous Sulfate 325 MG TAB PO (20:22)
[2020-02-10] MEDS: Atorvastatin 40 MG TAB PO (21:30)
[2020-02-11] VITALS (11 sets, daily range): BP systolic 105–130; BP diastolic 61–77; PULSE 71–97; RESP 15–20; TEMP 35.7–37.1; O2SAT 96–100
[2020-02-11] MEDS: Normal Saline 1,000 ML 150 ML IV ×2 (05:44→17:12)
[2020-02-11] MEDS: Levothyroxine 75 MCG TAB 150 MCG PO (05:47)
[2020-02-11 07:22] LABS: HCT 21.9 % (36.0-46.0); MCHC 28.8 % (32.0-36.0); MCV 86.9 fL (80-95); MPV 10.1 fL (8.0-11.0); Nucleated RBC 3 %; Platelet Count 150 10^3/uL (130-400); RBC 2.52 10^6/uL (3.93-5.22); RDW 21.1 % (11.7-14.6); RDW-SD 66.4 fL; WBC 7.23 10^3/uL (4.4-10.8)
[2020-02-11 07:41] LABS: Anion Gap 8.9 mmol/L (3-11); BUN 19 mg/dL (7-18); CO2 28.1 mmol/L (21.0-32.0); CREATININE 1.02 mg/dL (0.55-1.02); Calcium 7.6 mg/dL (8.5-10.1); Chloride 108 mmol/L (98-107); Estimated GFR 55.28 (mL/min/1.73m2); Glucose 115 mg/dL (74-106); Potassium 3.1 mmol/L (3.5-5.1); Sodium 145 mmol/L (136-145)
[2020-02-11] MEDS: Tiotropium Bromide-Respimat 10 PUFF INH IH (07:51)
[2020-02-11] MEDS: Budesonide/Formoterol 160/4.5 6 GM 60 PUFF INH IH ×2 (07:51→21:21)
[2020-02-11 07:53] LABS: HGB 6.3 g/dL (11.2-15.7)
[2020-02-11 08:01] LABS: Absolute Lymphocyte Count 2.53 10^3/uL (1.2-3.4); Absolute Monocyte Count 0.36 10^3/uL (0.1-0.8); Absolute Neutrophil Count 4.27 10^3/uL (1.2-6.7)
[2020-02-11 08:02] LABS: Anisocytosis 3+; Diff Comment Manual Differential; Hypochromasia 2+; Metamyelocytes % 1; Microcytosis 2+; Polychromasia Present
[2020-02-11 08:03] LABS: Poikilocytes 1+
[2020-02-11] MEDS: cefTRIAXone 2 GM/50 ML BAG IVPB (10:07)
[2020-02-11] MEDS: Pantoprazole 40 MG VIAL IVP ×2 (10:08→21:21)
[2020-02-11] MEDS: Normal Saline Flush 10 ML SYR IVP (10:09)
[2020-02-11] MEDS: Psyllium PKT 1 EACH PO (10:09)
[2020-02-11] MEDS: Pregabalin 100 MG CAP 200 MG PO ×3 (10:09→21:22)
[2020-02-11] MEDS: Montelukast 10 MG TAB PO (10:09)
[2020-02-11] MEDS: Cyanocobalamin 500 MCG TAB 1000 MCG PO (10:10)
[2020-02-11] MEDS: Hydrocortisone 10 MG TAB 20 MG PO (10:10)
[2020-02-11] MEDS: Ferrous Sulfate 325 MG TAB PO ×2 (10:10→21:23)
[2020-02-11] MEDS: Folic Acid 1 MG TAB PO (10:10)
[2020-02-11] MEDS: Lactobacillus Acidophilus CAP 1 CAP PO ×2 (10:11→21:22)
[2020-02-11] MEDS: Vancomycin 125 MG CAP PO ×4 (10:11→21:23)
[2020-02-11] MEDS: Loratidine 10 MG TAB PO (10:11)
[2020-02-11] MEDS: Nystatin POWDER 60 GM JAR TP ×2 (10:12→21:24)
[2020-02-11] MEDS: Nystatin CREAM 15 GM TUBE TP ×2 (10:12→21:24)
[2020-02-11 12:03] LABS: Magnesium 2.1 mg/dL (1.8-2.4)
[2020-02-11] MEDS: Sucralfate 1 GM TAB PO ×3 (12:04→21:22)
[2020-02-11] MEDS: Potassium Chloride Liquid 20 MEQ PKT 40 MEQ PO ×2 (12:06→21:20)
--- NOTE | 2020-02-11 13:22 | W.SURGCON ---
Date of service: 02/11/20 Time of Service: 13:23 Assessment and Plan Assessment and plan (1) Acute on chronic anemia: Status: Acute Assessment and plan: We discussed the option of EGD and/or colonoscopy to rule out blood loss as a cause of her anemia. Will obtain records from [facility] for review. If no recent endoscopic evaluation has been done, can consider proceeding early next week or as an outpatient. Will follow. History of Present Illness Narrative: This patient with multiple medical problems and metastatic breast cancer was admitted for treatment of recurrent UTI. She has chronic anemia but has had a drop in her hemoglobin to 6.3 during this admission. She is getting 1 unit of blood. She has Hemoccult positive stool but denies melena or bright red blood per rectum. She denies abdominal pain and is eating well. No heartburn or dysphagia. No change in bowel habits. She believes she had a colonoscopy at [facility] fairly recently. The patient is typically on omeprazole as well as steroids for her adrenal insufficiency. The PPI has just been increased to twice a day and Carafate added to her medication regimen. [facility] Medical History Acute confusion due to infection Acute pain due to trauma Acute UTI Adenoma of pituitary benign; renoved surgically on steroids and synthroid to replete Bacteremia Citrobacter C. difficile diarrhea Cancer related pain on hydromorphone pump Carpal tunnel syndrome Chronic adrenal insufficiency Chronic pain Chronic respiratory failure with hypoxia Chronic venous stasis dermatitis COPD (chronic obstructive pulmonary disease) On nocturnal oxygen - 2L prn Depression Diabetes mellitus Insulin dependent Discharge planning issues Diverticulosis DNI (do not intubate) DNR (do not resuscitate) Dyslipidemia E. coli bacteremia Encounter for hospice care discussion Fatigue Mendoza catheter in place Goals of care, counseling/discussion History of breast cancer metastatic, with lymphatic spread and bone mets Hyperlipidemia Hypopituitarism Hypothyroidism Influenza B Iron deficiency anemia Left lower lobe pneumonia Metastatic breast cancer Obstructive sleep apnea per [facility] records Palliative care patient Pneumonia POLST (Physician Orders for Life-Sustaining Treatment) done 03/26/19; DNR/DNI Positive blood cultures Pulmonary emboli Recurrent urinary tract infection Restless leg syndrome SOB (shortness of breath) Spinal stenosis Stage IV breast cancer in female Toxic metabolic encephalopathy Uncontrolled pain Unsteady gait Urinary incontinence UTI (urinary tract infection) UTI (urinary tract infection) UTI (urinary tract infection) Surgical History H/O bilateral mastectomy H/O colonoscopy with polypectomy H/O mastectomy bilateral History of carpal tunnel release of both wrists Port-A-Cath in place Status post transsphenoidal pituitary resection Family History Father , age 83 from complications of diabetes Prostate cancer Diabetes Mother , age 79 from complications of Crohn's disease and colitis Crohn's disease Colitis Daughter No problems noted. Daughter No problems noted. Brother Arthritis severe Obesity Sister Diabetes Obesity Sister No problems noted. Sister No problems noted. Social History Smoking/Tobacco Use Status: Former Tobacco Use Smoking risk assessment performed?: Yes Alcohol Intake: never Drug use: Never Substance use type: does not use Caregiver/Support person: Yes Household members: children Number of Children: 2 Communication Needs: Hard of Hearing and Corrective Lenses Education Level: middle school Do you need help understanding health information?: Always current occupation: on disability Pets and animals: Yes (4 cats, 3 dogs, 1 bird, 6 hermit crabs) Pets and animals: cat(s), dog(s), bird(s) and other Details: hermit crabs Current gender identity: female What is your relationship status?: How often do you talk on the phone with friends or family?: once per week How often do you get together with friends or relatives?: three or more times per week Panel score (0-1 are the most socially isolated patients): 1 What type of physical activity do you participate in: none, sedentary lifestyle, wheelchair-bound and additional Details: needs a new wheelchair, cannot walk far, just a few steps Special pedro pablo needs: No Seatbelt use: always Working smoke detector in home: Yes Fire extinguisher in home: Yes Firearms in home: No Do you feel safe at home: Yes Do you feel safe in your relationship?: Yes Additional Social history: , with 2 children. 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 She is not currently working and is on disability. Has a history of tobacco, quit in 1992. Reports rare use of alcohol only. Lives with daughter Bhargavi in [place], who is her Arnold caregiver; her other daughter lives close by. Bedbound since pelvic fracture. Recent scans show progression of breast cancer. Exam Narrative Exam Narrative: Alert, no distress, eating lunch Abdomen soft, non tender, no masses. Results Last Vital Signs Temp 97.5 F L 02/11/20 07:11 Pulse 71 02/11/20 07:11 Resp 18 02/11/20 07:11 BP 130/64 02/11/20 07:11 Pulse Ox 98 02/11/20 07:11 Labs Result diagrams: 02/11/20 06:40 02/11/20 06:40 Labs: Laboratory Results - last 24 hr 02/11/20 02/11/20 02/11/20 06:40 06:40 06:40 WBC 7.23 RBC 2.52 L Hgb 6.3 L* Hct 21.9 L MCV 86.9 MCH 25.0 L MCHC 28.8 L RDW 21.1 H Plt Count 150 MPV 10.1 Immature Gran % See Differential Neutrophils % 59.0 Lymphocytes % 35.0 Monocytes % 5.0 Eosinophils % 0.0 Basophils % 0.0 Metamyelocytes % 1 Nucleated RBC % 3 Absolute Neutrophils 4.27 Absolute Lymphocytes 2.53 Absolute Monocytes 0.36 Absolute Eosinophils 0.00 Absolute Basophils 0.00 RBC Morphology See below Polychromasia Present Hypochromasia 2+ Poikilocytosis 1+ Anisocytosis 3+ Microcytosis 2+ Sodium 145 Potassium 3.1 L D Chloride 108 H Carbon Dioxide 28.1 Anion Gap 8.9 BUN 19 H Creatinine 1.02 Estimated GFR/1.73 m2 55.28 Glucose 115 H D Calcium 7.6 L Magnesium 2.1 Patient ABO/Rh Antibody Screen Crossmatch 02/11/20 12:00 WBC RBC Hgb Hct MCV MCH MCHC RDW Plt Count MPV Immature Gran % Neutrophils % Lymphocytes % Monocytes % Eosinophils % Basophils % Metamyelocytes % Nucleated RBC % Absolute Neutrophils Absolute Lymphocytes Absolute Monocytes Absolute Eosinophils Absolute Basophils RBC Morphology Polychromasia Hypochromasia Poikilocytosis Anisocytosis Microcytosis Sodium Potassium Chloride Carbon Dioxide Anion Gap BUN Creatinine Estimated GFR/1.73 m2 Glucose Calcium Magnesium Patient ABO/Rh A Positive Antibody Screen Negative Crossmatch See Detail
--- NOTE | 2020-02-11 13:23 | CMPROGNOTE_ITS ---
- If Service Date Differs Date of service: 02/11/20 Time of Service: 13:23 Care Management Progress Note S/O: Candace was sitting up in bed when ЮЛИЯ met with her. She appeared more tired than yesterday, frequently closing her eyes during conversation. Candace's hgb was only 6.3 this morning and she is receiving a unit of blood. That may be contributing to her fatigue. Candace also complained that she was still in a lot of pain. She stated that her pain level was an 8/10 at the time CM was meeting with her. ЮЛИЯ discussed this with the provider. Candace was restarted on a hydromorphone CADD pump today at 0.2 mls/hr. The provider will add the ability to bolus the medication when her pain is not well controlled. ЮЛИЯ contacted the [facility] to update them on Candace's condition and anticipated discharge plan. A: Candace is a 59 year old woman admitted on 02/09/20 with a UTI P: Candace will likely be discharged home with a resumption of home health nursing services. She will follow up with her community providers including Dr. Walden her Oncologist and Nurys Martinez her PCP. She will transport via ambulance coordinated by ЮЛ[facility]. CM will continue to support Candace, her family and assess for discharge planning needs.
--- NOTE | 2020-02-11 14:04 | W.PM.PROGNOT ---
Date of Service Date of service: 02/11/20 Time of Service: 14:04 Assessment and Plan Assessment and plan (1) Recurrent urinary tract infection: Status: Acute Assessment and plan: Continue ceftriaxone day 4 cultures growing proteus irene sensitive to ceftriaxone. alex catheter changed 02/08/20 (2) Adrenal insufficiency: Status: Acute Assessment and plan: Patient has a history of adrenal insufficiency and is on oral hydrocortisone chronically. Her blood pressure has been stable here. Treated with stress dose IV hydrocortisone given her infection, continue home steroid dosing (3) Toxic metabolic encephalopathy: Status: Resolved Assessment and plan: resolved, (4) CHF (congestive heart failure): Status: Chronic Assessment and plan: History of CHF with preserved ejection fraction. Last echocardiogram 09/16/2019. current presentation not consistent with active congestive heart failure. will stop IV fluids as she is now taking good PO (5) Iron deficiency anemia: Status: Chronic Assessment and plan: Patient has significant anemia that is worse than at her last evaluation a month ago. She has heme positive stools, though denies gross bleeding. She is agreeable to a unit of PRBC now that Hemoglobin down to 6.3. surgery has been consulted as patient does want to pursue a work up. will continue protonix BID and add carafate (6) Metastatic breast cancer: Status: Chronic Assessment and plan: Patient has known slow-growing metastatic breast cancer. She is unsure if she is still taking chemotherapeutic agents. We are going to hold the Verenzio that may affect immune function and it can also inflame the liver. We will try to clarify her active medications with her daughter in the morning. (7) Diabetes mellitus: Status: Chronic Assessment and plan: Continue outpatient insulin regimen and GLP-1 antagonist. 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 difficile diarrhea: Status: Acute Assessment and plan: Current symptoms not consistent with C. difficile diarrhea. Is not totally clear if she still taking the Dificid that she was discharged on last time. We will clarify this in the morning. (10) DVT prophylaxis: Status: Acute Assessment and plan: TEDS and SCD's, enoxaparin discontinued in setting of dropping H&H with heme positive stool. (11) Discharge planning issues: Status: Acute Assessment and plan: Patient desires to return home after UTI is treated. She confirms DNR/DNI. Palliative care has been consulted they are following this case. (12) Palliative care patient: Status: Chronic Assessment and plan: dilaudid pump was discontinued last month when she was hospitalized at [facility] she was placed on a fentanyl patch which was removed secondary to somnolence. she is now awake today and reporting her oaub pain managed better on dilauadid cadd pump. continue at 0.2 mg/hr as pain is managed and adjust as needed. discussed with DR Bahena Subjective Subjective Patient reports: no new complaints, pain is less and afebrile; denies shortness of breath Interval history since last seen: pain management improved today on cadd pump. Exam Const General: cooperative, comfortable, no acute distress and ill appearing chronically Nutritional Appearance: obese Orientation: alert, awake and oriented x3 HENMT Head: normal to inspection, normocephalic and atraumatic Mouth: oral mucosae normal Resp Effort & Inspection: normal respiratory effort and able to speak in complete sentences Cardio Rate: regular rate Rhythm: regular rhythm GI Inspection: large pannus and obesity Palpation: soft General: other (alex draining clear yellow urine) Skin Lesions: lesion noted (Gluteal fold) Neuro General: patient alert, patient awake, patient oriented x3 and no focal motor deficits Cognition: normal cognition Speech: speech normal Extrem General: normal to inspection and full ROM Objective Last Vital Signs Temp 36.6 C 02/11/20 13:47 Pulse 93 H 02/11/20 13:47 Resp 18 02/11/20 13:47 BP 110/68 02/11/20 13:47 Pulse Ox 100 02/11/20 13:47 Laboratory Results - last 24 hr 02/11/20 02/11/20 02/11/20 06:40 06:40 06:40 WBC 7.23 RBC 2.52 L Hgb 6.3 L* Hct 21.9 L MCV 86.9 MCH 25.0 L MCHC 28.8 L RDW 21.1 H Plt Count 150 MPV 10.1 Immature Gran % See Differential Neutrophils % 59.0 Lymphocytes % 35.0 Monocytes % 5.0 Eosinophils % 0.0 Basophils % 0.0 Metamyelocytes % 1 Nucleated RBC % 3 Absolute Neutrophils 4.27 Absolute Lymphocytes 2.53 Absolute Monocytes 0.36 Absolute Eosinophils 0.00 Absolute Basophils 0.00 RBC Morphology See below Polychromasia Present Hypochromasia 2+ Poikilocytosis 1+ Anisocytosis 3+ Microcytosis 2+ Sodium 145 Potassium 3.1 L D Chloride 108 H Carbon Dioxide 28.1 Anion Gap 8.9 BUN 19 H Creatinine 1.02 Estimated GFR/1.73 m2 55.28 Glucose 115 H D Calcium 7.6 L Magnesium 2.1 Patient ABO/Rh Antibody Screen Crossmatch 02/11/20 12:00 WBC RBC Hgb Hct MCV MCH MCHC RDW Plt Count MPV Immature Gran % Neutrophils % Lymphocytes % Monocytes % Eosinophils % Basophils % Metamyelocytes % Nucleated RBC % Absolute Neutrophils Absolute Lymphocytes Absolute Monocytes Absolute Eosinophils Absolute Basophils RBC Morphology Polychromasia Hypochromasia Poikilocytosis Anisocytosis Microcytosis Sodium Potassium Chloride Carbon Dioxide Anion Gap BUN Creatinine Estimated GFR/1.73 m2 Glucose Calcium Magnesium Patient ABO/Rh A Positive Antibody Screen Negative Crossmatch See Detail
[2020-02-11] MEDS: Acetaminophen 325 MG TAB 650 MG PO (14:08)
[2020-02-11] MEDS: Hydrocortisone 10 MG TAB 5 MG PO (16:12)
--- NOTE | 2020-02-11 16:28 | CHAPLAIN ---
Candace was visiting with her Addiction Counselor, Lauren, when I stopped in. She is tired today, but able to carry on a conversation. She is being given a unit of blood today. Lauren is in touch with Candace's daughter and caregiver, Kiki, and Candace has her phone with her as well. I will continue to visit.
[2020-02-11] MEDS: Insulin Aspart 300 UNITS/3 ML PEN SC (17:00)
[2020-02-11] MEDS: Atorvastatin 40 MG TAB PO (21:23)
[2020-02-12] MEDS: Normal Saline 1,000 ML 150 ML IV ×4 (00:29→20:35)
[2020-02-12 03:50] VITALS: BP 116/68; PULSE 96; RESP 17; TEMP 36.3; O2SAT 98
[2020-02-12] MEDS: Levothyroxine 75 MCG TAB 150 MCG PO (06:07)
[2020-02-12 07:05] LABS: HCT 25.3 % (36.0-46.0); HGB 7.6 g/dL (11.2-15.7); MCH 25.4 pg (27.0-33.0); MCV 84.6 fL (80-95); MPV 10.9 fL (8.0-11.0); Nucleated RBC 6 %; Platelet Count 145 10^3/uL (130-400); RBC 2.99 10^6/uL (3.93-5.22); RDW 20.3 % (11.7-14.6); RDW-SD 61.8 fL; WBC 8.41 10^3/uL (4.4-10.8)
[2020-02-12 07:13] LABS: Anion Gap 8.9 mmol/L (3-11); BUN 15 mg/dL (7-18); CO2 26.1 mmol/L (21.0-32.0); CREATININE 0.99 mg/dL (0.55-1.02); Calcium 7.2 mg/dL (8.5-10.1); Chloride 108 mmol/L (98-107); Estimated GFR 57.22 (mL/min/1.73m2); Glucose 191 mg/dL (74-106); Potassium 3.9 mmol/L (3.5-5.1); Sodium 143 mmol/L (136-145)
[2020-02-12 07:34] LABS: Absolute Eosinophil Count 0.08 10^3/uL (0.0-0.7); Absolute Monocyte Count 0.59 10^3/uL (0.1-0.8); Absolute Neutrophil Count 4.46 10^3/uL (1.2-6.7); Bands % 3; Metamyelocytes % 1
[2020-02-12 07:35] LABS: Anisocytosis 2+; Diff Comment Manual Differential; Polychromasia Present
[2020-02-12] MEDS: Tiotropium Bromide-Respimat 10 PUFF INH IH (07:41)
[2020-02-12] MEDS: Budesonide/Formoterol 160/4.5 6 GM 60 PUFF INH IH ×2 (07:42→20:07)
[2020-02-12] MEDS: Ferrous Sulfate 325 MG TAB PO ×2 (09:09→20:05)
[2020-02-12] MEDS: Lactobacillus Acidophilus CAP 1 CAP PO ×2 (09:09→20:06)
[2020-02-12] MEDS: Folic Acid 1 MG TAB PO (09:10)
[2020-02-12] MEDS: Vancomycin 125 MG CAP PO ×4 (09:10→20:06)
[2020-02-12] MEDS: Hydrocortisone 10 MG TAB 20 MG PO (09:10)
[2020-02-12] MEDS: Loratidine 10 MG TAB PO (09:10)
[2020-02-12] MEDS: Cyanocobalamin 500 MCG TAB 1000 MCG PO (09:10)
[2020-02-12] MEDS: Sucralfate 1 GM TAB PO ×4 (09:11→20:08)
[2020-02-12] MEDS: Psyllium PKT 1 EACH PO (09:11)
[2020-02-12] MEDS: Pregabalin 100 MG CAP 200 MG PO ×3 (09:11→20:06)
[2020-02-12] MEDS: Montelukast 10 MG TAB PO (09:11)
[2020-02-12] MEDS: Normal Saline 50 ML 200 ML (09:12)
[2020-02-12] MEDS: Normal Saline Flush 10 ML SYR IVP ×2 (09:12→20:06)
[2020-02-12] MEDS: Pantoprazole 40 MG VIAL IVP ×2 (09:12→20:06)
[2020-02-12] MEDS: Nystatin POWDER 60 GM JAR TP ×2 (09:19→20:07)
[2020-02-12] MEDS: Nystatin CREAM 15 GM TUBE TP ×2 (09:19→20:07)
[2020-02-12 09:40] VITALS: BP 118/79; PULSE 103; RESP 18; TEMP 37.4; O2SAT 98
[2020-02-12] MEDS: Insulin Aspart 300 UNITS/3 ML PEN SC ×3 (10:32→17:26)
[2020-02-12] MEDS: Potassium Chloride Liquid 20 MEQ PKT 40 MEQ PO ×2 (10:33→20:06)
[2020-02-12] MEDS: cefTRIAXone 2 GM/50 ML BAG IVPB (10:34)
--- NOTE | 2020-02-12 14:30 | PDOC.CMPRO ---
- If Service Date Differs Date of service: 02/12/20 Time of Service: 14:30 Care Management Progress Note S/O: Candace remains acute surgery consulted and continue to evaluate if she will have a scope while inpatient of follow up as outpatient. She is now on a CADD if she is to return Home with it she will need new orders for [facility] to deliver. CM will continue to assess and coordinate discharge needs. Anticipate she may be ready for discharge early in the week. A: Candace is a 59 year old woman admitted on 02/09/20 with a UTI P: Candace will likely be discharged home with a resumption of home health nursing services. She will follow up with her community providers including Dr. Walden her Oncologist and Nurys Martinez her PCP. She will transport via ambulance coordinated by CM. CM will continue to support Candace, her family and assess for discharge planning needs.
--- NOTE | 2020-02-12 15:15 | W.PM.PROGNOT ---
Date of Service Date of service: 02/12/20 Time of Service: 15:15 Assessment and Plan Assessment and plan (1) Recurrent urinary tract infection: Start date: 02/12/20 Start time: 15:19 Status: Acute Assessment and plan: Continue ceftriaxone day 5 cultures growing proteus irene sensitive to ceftriaxone. alex catheter changed 02/08/20 (2) Adrenal insufficiency: Start date: 02/12/20 Start time: 15:19 Status: Acute Assessment and plan: Patient has a history of adrenal insufficiency and is on oral hydrocortisone chronically. Her blood pressure has been stable here. Treated with stress dose IV hydrocortisone given her infection, continue home steroid dosing (3) CHF (congestive heart failure): Start date: 02/12/20 Start time: 15:19 Status: Chronic Assessment and plan: History of CHF with preserved ejection fraction. Last echocardiogram 09/16/2019. current presentation not consistent with active congestive heart failure. will stop IV fluids as she is now taking good PO (4) Iron deficiency anemia: Start date: 02/12/20 Start time: 15:19 Status: Chronic Assessment and plan: Surgery consulted. She did receive 1 unit PRBC Stable HH today will continue to monitor. (5) Metastatic breast cancer: Start date: 02/12/20 Start time: 15:21 Status: Chronic Assessment and plan: Patient has known slow-growing metastatic breast cancer. she states no longer taking chemo. We are going to hold the Verenzio that may affect immune function and it can also inflame the liver. We will try to clarify her active medications with her daughter in the morning. (6) Diabetes mellitus: Start date: 02/12/20 Start time: 15:21 Status: Chronic Assessment and plan: Continue outpatient insulin regimen and GLP-1 antagonist. 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 difficile diarrhea: Start date: 02/12/20 Start time: 15:21 Status: Acute Assessment and plan: Current symptoms not consistent with C. difficile diarrhea. Will give oral vanco and finish a 10 day course post antibiotic of vanco (9) DVT prophylaxis: Start date: 02/12/20 Start time: 15:22 Status: Acute Assessment and plan: TEDS and SCD's, enoxaparin discontinued in setting of dropping H&H with heme positive stool. (10) Discharge planning issues: Start date: 02/12/20 Start time: 15:22 Status: Acute Assessment and plan: Patient desires to return home after UTI is treated. She confirms DNR/DNI. Palliative care has been consulted they are following this case. (11) Palliative care patient: Start date: 02/12/20 Start time: 15:22 Status: Chronic Assessment and plan: Awaiting for new Cadd pump prior to discharge discussed with DR Ibrahim Subjective Subjective Patient reports: no new complaints Interval history since last seen: Doing well. New Cadd for friday. Per nursing she has not had positive heme since . She denies CP, SOB, N/V/D Exam Const General: cooperative, comfortable, no acute distress and ill appearing chronically Nutritional Appearance: obese Orientation: alert, awake and oriented x3 HENMT Head: normal to inspection, normocephalic and atraumatic Mouth: oral mucosae normal Resp Effort & Inspection: normal respiratory effort and able to speak in complete sentences Cardio Rate: regular rate Rhythm: regular rhythm GI Inspection: large pannus and obesity Palpation: soft General: other (alex draining clear yellow urine) Skin Lesions: lesion noted (Gluteal fold) Neuro General: patient alert, patient awake, patient oriented x3 and no focal motor deficits Cognition: normal cognition Speech: speech normal Extrem General: normal to inspection and full ROM Objective Last Vital Signs Temp 37.4 C 02/12/20 09:40 Pulse 103 H 02/12/20 09:40 Resp 18 02/12/20 09:40 BP 118/79 02/12/20 09:40 Pulse Ox 98 02/12/20 09:40 Laboratory Results - last 24 hr 02/11/20 02/12/20 02/12/20 12:00 06:20 06:20 WBC 8.41 RBC 2.99 L Hgb 7.6 L Hct 25.3 L MCV 84.6 MCH 25.4 L MCHC 30.0 L RDW 20.3 H Plt Count 145 MPV 10.9 Immature Gran % See Differential Neutrophils % 50.0 Band Neutrophils % 3 Lymphocytes % 38.0 Monocytes % 7.0 Eosinophils % 1.0 Basophils % 0.0 Metamyelocytes % 1 Nucleated RBC % 6 Absolute Neutrophils 4.46 Absolute Lymphocytes 3.20 Absolute Monocytes 0.59 Absolute Eosinophils 0.08 Absolute Basophils 0.00 RBC Morphology See below Polychromasia Present Anisocytosis 2+ Sodium 143 Potassium 3.9 D Chloride 108 H Carbon Dioxide 26.1 Anion Gap 8.9 BUN 15 Creatinine 0.99 Estimated GFR/1.73 m2 57.22 Glucose 191 H D Calcium 7.2 L Crossmatch See Detail
[2020-02-12 16:18] VITALS: BP 120/71; PULSE 101; RESP 20; TEMP 36.7; O2SAT 92
[2020-02-12] MEDS: Hydrocortisone 10 MG TAB 5 MG PO (16:22)
[2020-02-12] MEDS: Ondansetron O.D.T. 4 MG TABEF 8 MG PO (17:57)
[2020-02-12] MEDS: Atorvastatin 40 MG TAB PO (20:07)
--- NOTE | 2020-02-12 20:39 | W.PM.PROGNOT ---
Date of Service Date of service: 02/12/20 Time of Service: 13:00 Assessment and Plan Assessment and plan (1) Acute on chronic anemia: Status: Acute Assessment and plan: Her HgB has responded appropriately to transfusion. She has no evidence of active bleeding. No records were found at [facility], but review of [facility] chart shows she had EGD and colonoscopy in 08/2017. Mild gastritis and diverticulosis were found. With her multiple medical issues, the risks of endoscopy outweigh the benefits and will not likely change coordinator. It can assumed she has some gastritis related to steroids. Continue PPI and carafate. If active bleeding occurs, evaluation can be reconsidered. Subjective Subjective Interval history since last seen: No new complaints. Denies abdominal pain or blood in stool. Objective Last Vital Signs Temp 98.1 F 02/12/20 16:18 Pulse 101 H 02/12/20 16:18 Resp 20 02/12/20 16:18 BP 120/71 02/12/20 16:18 Pulse Ox 92 02/12/20 16:18 Laboratory Results - last 24 hr 02/12/20 02/12/20 06:20 06:20 WBC 8.41 RBC 2.99 L Hgb 7.6 L Hct 25.3 L MCV 84.6 MCH 25.4 L MCHC 30.0 L RDW 20.3 H Plt Count 145 MPV 10.9 Immature Gran % See Differential Neutrophils % 50.0 Band Neutrophils % 3 Lymphocytes % 38.0 Monocytes % 7.0 Eosinophils % 1.0 Basophils % 0.0 Metamyelocytes % 1 Nucleated RBC % 6 Absolute Neutrophils 4.46 Absolute Lymphocytes 3.20 Absolute Monocytes 0.59 Absolute Eosinophils 0.08 Absolute Basophils 0.00 RBC Morphology See below Polychromasia Present Anisocytosis 2+ Sodium 143 Potassium 3.9 D Chloride 108 H Carbon Dioxide 26.1 Anion Gap 8.9 BUN 15 Creatinine 0.99 Estimated GFR/1.73 m2 57.22 Glucose 191 H D Calcium 7.2 L
[2020-02-12 23:51] VITALS: BP 123/73; PULSE 70; RESP 18; TEMP 36.7; O2SAT 97
[2020-02-13] VITALS (15 sets, daily range): BP systolic 108–132; BP diastolic 68–76; PULSE 105–113; RESP 16–24; TEMP 36.6–37.6; O2SAT 91–97
[2020-02-13] MEDS: Normal Saline 1,000 ML 150 ML IV ×3 (03:21→23:53)
[2020-02-13] MEDS: Normal Saline Flush 10 ML SYR IVP ×3 (06:50→19:37)
[2020-02-13] MEDS: Levothyroxine 75 MCG TAB 150 MCG PO (07:18)
[2020-02-13 08:04] LABS: Abs Immature Grans 0.14 10^3/uL (0.0-0.06); Absolute Basophil Count 0.01 10^3/uL (0.0-0.2); Absolute Eosinophil Count 0.05 10^3/uL (0.0-0.7); Absolute Lymphocyte Count 2.84 10^3/uL (1.2-3.4); Absolute Monocyte Count 0.83 10^3/uL (0.1-0.8); Absolute Neutrophil Count 4.99 10^3/uL (1.2-6.7); Basophils % 0.1; Eosinophils % 0.6; HCT 23.4 % (36.0-46.0); Immature Grans % 1.6; Lymphocytes % 32.1; MCH 25.7 pg (27.0-33.0); MCHC 29.5 % (32.0-36.0); MPV 10.8 fL (8.0-11.0); Monocytes % 9.4; Neutrophils % 56.2; Nucleated RBC 4 %; Platelet Count 125 10^3/uL (130-400); RBC 2.69 10^6/uL (3.93-5.22); RDW-SD 65.6 fL; WBC 8.86 10^3/uL (4.4-10.8)
[2020-02-13 08:05] LABS: Anion Gap 9.4 mmol/L (3-11); BUN 15 mg/dL (7-18); CO2 22.6 mmol/L (21.0-32.0); CREATININE 1.04 mg/dL (0.55-1.02); Calcium 7.2 mg/dL (8.5-10.1); Chloride 110 mmol/L (98-107); Estimated GFR 54.05 (mL/min/1.73m2); Glucose 188 mg/dL (74-106); Magnesium 1.7 mg/dL (1.8-2.4); Potassium 4.3 mmol/L (3.5-5.1); Sodium 142 mmol/L (136-145)
[2020-02-13 08:25] LABS: Diff Comment RBC Morph Reviewed; HGB 6.9 g/dL (11.2-15.7)
[2020-02-13 08:26] LABS: Anisocytosis 2+; Macrocytosis 1+; Microcytosis 1+; Polychromasia Present
[2020-02-13] MEDS: Nystatin POWDER 60 GM JAR TP ×2 (08:32→19:37)
[2020-02-13] MEDS: Nystatin CREAM 15 GM TUBE TP ×2 (08:32→19:37)
[2020-02-13] MEDS: Polyethylene Glycol 3350 17 GM PACKET PO (08:33)
[2020-02-13] MEDS: Psyllium PKT 1 EACH PO (08:33)
[2020-02-13] MEDS: Pantoprazole 40 MG VIAL IVP ×2 (08:33→19:36)
[2020-02-13] MEDS: Normal Saline 50 ML 200 ML (08:33)
[2020-02-13] MEDS: Insulin Aspart 300 UNITS/3 ML PEN SC ×3 (08:34→17:07)
[2020-02-13] MEDS: Pregabalin 100 MG CAP 200 MG PO ×3 (08:35→19:35)
[2020-02-13] MEDS: Potassium Chloride Liquid 20 MEQ PKT 40 MEQ PO ×2 (08:35→19:34)
[2020-02-13] MEDS: Sucralfate 1 GM TAB PO ×4 (08:35→19:36)
[2020-02-13] MEDS: Montelukast 10 MG TAB PO (08:35)
[2020-02-13] MEDS: Lactobacillus Acidophilus CAP 1 CAP PO ×2 (08:36→19:36)
[2020-02-13] MEDS: Folic Acid 1 MG TAB PO (08:36)
[2020-02-13] MEDS: Ferrous Sulfate 325 MG TAB PO ×2 (08:36→19:36)
[2020-02-13] MEDS: Hydrocortisone 10 MG TAB 20 MG PO (08:36)
[2020-02-13] MEDS: Cyanocobalamin 500 MCG TAB 1000 MCG PO (08:36)
[2020-02-13] MEDS: Vancomycin 125 MG CAP PO ×4 (08:36→19:36)
[2020-02-13] MEDS: Loratidine 10 MG TAB PO (08:36)
--- NOTE | 2020-02-13 09:34 | PGE_ITS ---
Date of Service Date of service: 02/13/20 Time of Service: 09:34 Assessment and Plan Assessment and plan (1) Recurrent urinary tract infection: Start date: 02/13/20 Start time: 09:39 Status: Acute Assessment and plan: Continue ceftriaxone day 5, finished antbx cultures growing proteus irene sensitive to ceftriaxone. alex catheter changed 02/08/20 Will treat with additional dosing for prophylactic cdiff (2) Adrenal insufficiency: Start date: 02/13/20 Start time: 09:40 Status: Acute Assessment and plan: Patient has a history of adrenal insufficiency and is on oral hydrocortisone chronically. Her blood pressure has been stable here. Treated with stress dose IV hydrocortisone given her infection, continue home steroid dosing (3) CHF (congestive heart failure): Start date: 02/13/20 Start time: 09:40 Status: Chronic Assessment and plan: History of CHF with preserved ejection fraction. Last echocardiogram 09/16/2019. current presentation not consistent with active congestive heart failure. (4) Iron deficiency anemia: Start date: 02/13/20 Start time: 09:42 Status: Chronic Assessment and plan: Today hemoglobin 6.9 Transfuse 2 units, with tylenol and benadryl Surgery evaluated patient, she is a high risk vs. benefit and would benefit from tertiary center with GI and Hem/oc Continue carafate and PPI at this time. (5) Metastatic breast cancer: Start date: 02/13/20 Start time: 09:51 Status: Chronic Assessment and plan: Patient has known slow-growing metastatic breast cancer. she states no longer taking chemo. We are going to hold the Verenzio that may affect immune function and it can also inflame the liver. We will try to clarify her active medications with her daughter in the morning. (6) Diabetes mellitus: Start date: 02/13/20 Start time: 09:52 Status: Chronic Assessment and plan: Continue outpatient insulin regimen and GLP-1 antagonist. Qualifiers: Diabetes mellitus type: type 2 Diabetes mellitus usp insulin use: with long term care pharmacist use Diabetes mellitus complication status: with kidney complications Diabetes mellitus complication detail: with chronic kidney disease Chronic kidney disease stage: stage 3 (moderate) Qualified Code(s): E11.22 - Type 2 diabetes mellitus with diabetic chronic kidney disease; N18.3 - Chronic kidney disease, stage 3 (moderate); Z79.4 - supervisor intermediates (current) use of insulin (7) Elevated liver function tests: Start date: 02/13/20 Start time: :52 Status: Acute Assessment and plan: stable, consider stopping statin if worsening (8) C. difficile diarrhea: Start date: 02/13/20 Start time: :52 Status: Acute Assessment and plan: Current symptoms not consistent with C. difficile diarrhea. Will give oral vanco and finish a 10 day course post antibiotic of vanco (9) DVT prophylaxis: Start date: 02/13/20 Start time: 52 Status: Acute Assessment and plan: TEDS and SCD's, enoxaparin discontinued in setting of dropping H&H with heme positive stool. (10) Discharge planning issues: Start date: 02/13/20 Start time: Status: Acute Assessment and plan: Patient desires to return home after UTI is treated. She confirms DNR/DNI. Palliative care has been consulted they are following this case. (11) Palliative care patient: Start date: 02/13/20 Start time: :53 Status: Chronic Assessment and plan: Awaiting for new Cadd pump prior to discharge discussed with DR Ibrahim Subjective Subjective Patient reports: no new complaints Interval history since last seen: Candace Looks tired today. She states she didn't sleep well. H/H is below 7 she will be transfused 2 units. Monitor H/H she denies CP, SOB, N/V/D. She is stating she is still having pain. She is on infusion with po as needed. Cadd orders will be set up for home. Possible discharge tomorrow or Friday. Will reach out to Dr. Walden tomorrow regarding her bleeding Exam Const General: cooperative, comfortable, no acute distress and ill appearing chronically Nutritional Appearance: obese Orientation: alert, awake and oriented x3 HENAR Head: normal to inspection, normocephalic and atraumatic Mouth: oral mucosae normal Resp Effort & Inspection: normal respiratory effort and able to speak in complete sentences Cardio Rate: regular rate Rhythm: regular rhythm GI Inspection: large pannus and obesity Palpation: soft General: other (alex draining clear yellow urine) Skin Lesions: lesion noted (Gluteal fold) Neuro General: patient alert, patient awake, patient oriented x3 and no focal motor deficits Cognition: normal cognition Speech: speech normal Extrem General: normal to inspection and full ROM Objective Last Vital Signs Temp 37.6 C H 02/13/20 08:06 Pulse 109 H 02/13/20 08:06 Resp 16 02/13/20 08:06 BP 108/68 02/13/20 08:06 Pulse Ox 91 L 02/13/20 08:06 Laboratory Results - last 24 hr 02/11/20 02/13/20 02/13/20 12:00 07:00 07:00 WBC 8.86 RBC 2.69 L Hgb 6.9 L* Hct 23.4 L MCV 87.0 MCH 25.7 L MCHC 29.5 L RDW 21.0 H Plt Count 125 L MPV 10.8 Immature Gran % 1.6 Neutrophils % 56.2 Lymphocytes % 32.1 Monocytes % 9.4 Eosinophils % 0.6 Basophils % 0.1 Nucleated RBC % 4 Absolute Neutrophils 4.99 Absolute Lymphocytes 2.84 Absolute Monocytes 0.83 H Absolute Eosinophils 0.05 Absolute Basophils 0.01 RBC Morphology See below Polychromasia Present Anisocytosis 2+ Microcytosis 1+ Macrocytosis 1+ Sodium 142 Potassium 4.3 Chloride 110 H Carbon Dioxide 22.6 Anion Gap 9.4 BUN 15 Creatinine 1.04 H Estimated GFR/1.73 m2 54.05 Glucose 188 H Calcium 7.2 L Magnesium 1.7 L Patient ABO/Rh A Positive Antibody Screen Negative Crossmatch See Detail
[2020-02-13] MEDS: diphenhydrAMINE 25 MG CAP PO (09:53)
[2020-02-13] MEDS: Acetaminophen 325 MG TAB 650 MG PO (09:53)
[2020-02-13] MEDS: Magnesium Oxide 400 MG TAB 800 MG PO (09:54)
[2020-02-13] MEDS: Normal Saline 500 ML 50 ML IVPB ×2 (10:00→13:40)
--- NOTE | 2020-02-13 12:55 | CMPROGNOTE_ITS ---
- If Service Date Differs Date of service: 02/13/20 Time of Service: 12:55 Care Management Progress Note S/O: Candace was alert during today's assessment she did sound tired. Her plan today hgb dropped she will recieve another transfusion. CM met with her and her daughter Montse over the phone. Candace does not have a current GI provider at [facility] and will need a new referral as she wishes to have a work up r/t source of GI bleeding. She reports that she is still having a lot of pain despite the CADD pump in place. [facility] to [facility] to [facility] Dilaudid at home to manage her pain at home. She does still have CADD pumps at home from [facility]. New orders will need to be coordinated. Montse reports that Candace is still taking her oral chemotherapy, she has close follow up with with home visits. Candace will need close monitoring of her H&H at home and possible outpatient infusions for PRBC has requested a consult to discuss the possibility of supra pubic cath at the [facility] and family request. A: Candace is a 59 year old woman admitted on 02/09/20 with a UTI P: Candace will likely be discharged home with a resumption of home health nursing services. [facility] care orders for CADD pump, for pain management. She will follow up with her community providers including her Oncologist and Nurys Martinez her PCP. She will need new orders for home health for frequent labs and possibly out patient transfusions which can be set up through our infusion suite. She will transport via ambulance coordinated by [facility]. She will need new referral to GI at [facility] for heme positive stools and significant anemia. CM will continue to support Candace, her family and assess for discharge planning needs.
[2020-02-13] MEDS: Hydrocortisone 10 MG TAB 5 MG PO (16:31)
[2020-02-13] MEDS: Atorvastatin 40 MG TAB PO (19:35)
[2020-02-13] MEDS: Budesonide/Formoterol 160/4.5 6 GM 60 PUFF INH IH (19:39)
[2020-02-14] MEDS: Normal Saline 1,000 ML 150 ML IV (06:08)
[2020-02-14] MEDS: Levothyroxine 75 MCG TAB 150 MCG PO (06:08)
[2020-02-14 06:54] LABS: HCT 27.2 % (36.0-46.0); HGB 8.4 g/dL (11.2-15.7); MCH 26.3 pg (27.0-33.0); MCHC 30.9 % (32.0-36.0); MCV 85.3 fL (80-95); Platelet Count 114 10^3/uL (130-400); RBC 3.19 10^6/uL (3.93-5.22); RDW-SD 57.5 fL
[2020-02-14 07:06] LABS: Anion Gap 8.9 mmol/L (3-11); CO2 23.1 mmol/L (21.0-32.0); Calcium 7.1 mg/dL (8.5-10.1); Chloride 112 mmol/L (98-107); Estimated GFR 50.67 (mL/min/1.73m2); Glucose 197 mg/dL (74-106); Magnesium 1.8 mg/dL (1.8-2.4); Potassium 4.8 mmol/L (3.5-5.1); Sodium 144 mmol/L (136-145)
[2020-02-14 07:12] LABS: BUN 16 mg/dL (7-18)
[2020-02-14 07:25] VITALS: BP 138/80; PULSE 105; RESP 22; TEMP 36.3; O2SAT 98
[2020-02-14] MEDS: Normal Saline Flush 10 ML SYR IVP ×2 (07:28→19:39)
[2020-02-14] MEDS: Pantoprazole 40 MG VIAL IVP ×2 (07:28→19:38)
[2020-02-14] MEDS: Loratidine 10 MG TAB PO (07:29)
[2020-02-14] MEDS: Pregabalin 100 MG CAP 200 MG PO ×3 (07:29→19:39)
[2020-02-14] MEDS: Hydrocortisone 10 MG TAB 20 MG PO (07:29)
[2020-02-14] MEDS: Sucralfate 1 GM TAB PO ×4 (07:29→19:42)
[2020-02-14] MEDS: Montelukast 10 MG TAB PO (07:29)
[2020-02-14] MEDS: Vancomycin 125 MG CAP PO ×4 (07:29→20:07)
[2020-02-14] MEDS: Lactobacillus Acidophilus CAP 1 CAP PO ×2 (07:29→19:39)
[2020-02-14] MEDS: Potassium Chloride Liquid 20 MEQ PKT 40 MEQ PO ×2 (07:29→19:38)
[2020-02-14] MEDS: Folic Acid 1 MG TAB PO (07:29)
[2020-02-14] MEDS: Ferrous Sulfate 325 MG TAB PO ×2 (07:29→19:39)
[2020-02-14] MEDS: Cyanocobalamin 500 MCG TAB 1000 MCG PO (07:29)
[2020-02-14] MEDS: Nystatin CREAM 15 GM TUBE TP ×2 (07:30→19:39)
[2020-02-14] MEDS: Nystatin POWDER 60 GM JAR TP ×2 (07:30→19:39)
[2020-02-14] MEDS: Psyllium PKT 1 EACH PO (07:30)
[2020-02-14] MEDS: Budesonide/Formoterol 160/4.5 6 GM 60 PUFF INH IH ×2 (08:11→19:38)
[2020-02-14] MEDS: Tiotropium Bromide-Respimat 10 PUFF INH IH (08:13)
[2020-02-14] MEDS: Insulin Aspart 300 UNITS/3 ML PEN SC ×3 (08:28→16:53)
[2020-02-14] MEDS: Lactulose 20 GM/30 ML CUP 15 GM PO (09:32)
[2020-02-14] MEDS: Furosemide 40 MG/4 ML VIAL IVP ×2 (09:35→16:53)
--- NOTE | 2020-02-14 12:30 | W.PM.PROGNOT ---
Date of Service Date of service: 02/14/20 Time of Service: 12:30 Assessment and Plan Assessment and plan (1) Palliative care patient: Start date: 02/14/20 Start time: 12:49 Status: Chronic Assessment and plan: Patient in pain will start WINDMILL TECHNICIAN pump with 2 hours IVP doses as needed. This should help to alleviate her pain. CADD pump for tomorrow for home. She is followed by Dr. Royal, PET scan from 02/04/2020 obtained with new nodules and lesion with worsening mets (see scanned PET). Will defer to Dr. Royal to have discussion with Patient and daughter regarding results, and further treatment plans. At this time after reviewing PET scan patient is futile. discussed with DR Ibrahim (2) Metastatic breast cancer: Start date: 02/14/20 Start time: 12:53 Status: Chronic Assessment and plan: as above (3) Recurrent urinary tract infection: Start date: 02/14/20 Start time: 12:48 Status: Resolved Assessment and plan: Finished course antibiotics, doing well, afebrile, no leukocytosis. BC NGTD (4) Adrenal insufficiency: Start date: 02/14/20 Start time: 12:54 Status: Acute Assessment and plan: Patient given IV dose steroids in addition to daily regimen Stable at this time, continue to monitor, (5) CHF (congestive heart failure): Start date: 02/14/20 Start time: 12:57 Status: Chronic Assessment and plan: She does appear volume overloaded after receiving 3 units blood in addition to IVF. IVF dcd. Lasix IV given. Will monitor wt and volume status. (6) Iron deficiency anemia: Start date: 02/14/20 Start time: 13:00 Status: Chronic Assessment and plan: Today hemoglobin 8.4 post transfusion she is volume overloaded, as above. Not a good surgical or procedural candidate as above. (7) Diabetes mellitus: Start date: 02/14/20 Start time: 13:03 Status: Chronic Assessment and plan: Continue outpatient insulin regimen and GLP-1 antagonist. Qualifiers: Diabetes mellitus type: type 2 Diabetes mellitus senior care insulin use: with senior care use Diabetes mellitus complication status: with kidney complications Diabetes mellitus complication detail: with chronic kidney disease Chronic kidney disease stage: stage 3 (moderate) Qualified Code(s): E11.22 - Type 2 diabetes mellitus with diabetic chronic kidney disease; N18.3 - Chronic kidney disease, stage 3 (moderate); Z79.4 - intermediate manager (current) use of insulin (8) Elevated liver function tests: Start date: 02/14/20 Start time: 13:04 Status: Acute Assessment and plan: stable, consider stopping statin if worsening (9) C. difficile diarrhea: Start date: 02/14/20 Start time: 13:04 Status: Acute Assessment and plan: Current symptoms not consistent with C. difficile diarrhea. Will give oral vanco and finish a 10 day course post antibiotic of vanco (10) DVT prophylaxis: Start date: 02/14/20 Start time: 13:04 Status: Acute Assessment and plan: TEDS and SCD's, enoxaparin discontinued in setting of dropping H&H with heme positive stool. (11) Discharge planning issues: Start date: 02/14/20 Start time: 13:04 Status: Acute Assessment and plan: Patient desires to return home after UTI is treated. She confirms DNR/DNI. Palliative care has been consulted they are following this case. Subjective Subjective Patient reports: still having pain Interval history since last seen: Candace is tired though she states she is feeling better today than yesterday. She is having increased pain with every movement. Will change infusion to WINDMILL TECHNICIAN for better pain management. PET scan from [facility] with worsening metastatic disease and new nodules. See scanned document. Dr. Royal to see patient, will defer further discussion of PET scan to Dr. Royal. Exam Const General: cooperative, comfortable, no acute distress and ill appearing chronically Nutritional Appearance: obese Orientation: alert, awake and oriented x3 HENMT Head: normal to inspection, normocephalic and atraumatic Mouth: oral mucosae normal Resp Effort & Inspection: normal respiratory effort and able to speak in complete sentences Cardio Rate: regular rate Rhythm: regular rhythm GI Inspection: large pannus and obesity Palpation: soft General: other (alex draining clear yellow urine) Skin Lesions: lesion noted (Gluteal fold) Neuro General: patient alert, patient awake, patient oriented x3 and no focal motor deficits Cognition: normal cognition Speech: speech normal Extrem General: normal to inspection and full ROM Other: Left leg with + 2 edema right Lower extremity with pitting edema, venous stasis discoloration. Objective Last Vital Signs Temp 36.3 C L 02/14/20 07:25 Pulse 105 H 1214/20 07:25 Resp 22 02/14/20 07:25 BP 138/80 02/14/20 07:25 Pulse Ox 98 02/14/20 07:25 Laboratory Results - last 24 hr 02/11/20 02/14/20 02/14/20 12:00 06:15 06:15 WBC 9.20 RBC 3.19 L Hgb 8.4 L Hct 27.2 L MCV 85.3 MCH 26.3 L MCHC 30.9 L RDW 19.0 H Plt Count 114 L MPV 10.0 Sodium 144 Potassium 4.8 Chloride 112 H Carbon Dioxide 23.1 Anion Gap 8.9 BUN 16 Creatinine 1.10 H Estimated GFR/1.73 m2 50.67 Glucose 197 H Calcium 7.1 L Magnesium 1.8 Patient ABO/Rh A Positive Antibody Screen Negative Crossmatch See Detail
[2020-02-14] MEDS: Hydrocortisone SOD SUC. 100 MG VIAL 50 MG IVP (12:36)
[2020-02-14] MEDS: Normal Saline 1,000 ML 15 ML IV (12:53)
[2020-02-14 15:49] VITALS: BP 107/59; PULSE 96; RESP 18; TEMP 36.1; O2SAT 99
--- NOTE | 2020-02-14 16:24 | CHAPLAIN ---
Candace was sleeping when I stopped in today, and has been sleeping much of the day. Her Psychology Tech, Lauren, has contacted Dr. Royal for a palliative care consult for tomorrow as the recent scans seem to show that Candace's condition is worsening, while she is getting conflicting information from the doctor who has been her oncologist in the [place].
[2020-02-14] MEDS: Hydrocortisone 10 MG TAB 5 MG PO (16:53)
--- NOTE | 2020-02-14 17:01 | PDOC.CMPRO ---
- If Service Date Differs Date of service: 02/14/20 Time of Service: 17:01 Care Management Progress Note S/O: Candace was lying in bed when CM met with her. She was alert but appeared a bit confused. She was attempting to eat her lunch but was unable to successfully feed herself without spilling food and liquids. Candace continues to complain of pain despite having the continuous hydromorphone infusion. The DRIVER'S LICENSE EXAMINER following Candace today changed the orders to a ORTHOTIC/PROSTHETIC CLINICIAN pump to allow for additional doses if needed. Kiki was unable to speak to Candace today because candace was having issues with her phone but CM updated Kiki regarding her condition. Kiki did ask id we could transfer Candace [place] [facility] to determine the source of her anemia. CM informed her that Dr. Royal will see her tomorrow when Kiki will be on the phone and further discussion can take place. A: Candace is a 59 year old woman admitted on 02/09/20 with a UTI P: Candace will likely be discharged home with a resumption of home health nursing services. [place] care orders for CADD pump, for pain management. She will follow up with her community providers including her Oncologist and Nurys Martinez her PCP. She will need new orders for home health for frequent labs and possibly out patient transfusions which can be set up through our infusion suite. She will transport via ambulance coordinated by [facility]. She may need new referral to GI at [facility] for heme positive stools and significant anemia. CM will continue to support Candace, her family and assess for discharge planning needs.
[2020-02-14] MEDS: Atorvastatin 40 MG TAB PO (19:42)
[2020-02-14 23:35] VITALS: BP 104/57; PULSE 101; RESP 16; TEMP 36.6; O2SAT 96
[2020-02-15] MEDS: Levothyroxine 75 MCG TAB 150 MCG PO (05:23)
[2020-02-15] MEDS: Normal Saline Flush 10 ML SYR IVP ×4 (06:13→22:14)
[2020-02-15 06:41] LABS: Abs Immature Grans 0.12 10^3/uL (0.0-0.06); Absolute Basophil Count 0.01 10^3/uL (0.0-0.2); Absolute Eosinophil Count 0.01 10^3/uL (0.0-0.7); Absolute Lymphocyte Count 1.75 10^3/uL (1.2-3.4); Absolute Monocyte Count 0.88 10^3/uL (0.1-0.8); Basophils % 0.1; Eosinophils % 0.1; HCT 26.7 % (36.0-46.0); HGB 8.1 g/dL (11.2-15.7); Immature Grans % 1.4; Lymphocytes % 19.7; MCH 26.3 pg (27.0-33.0); MCHC 30.3 % (32.0-36.0); MCV 86.7 fL (80-95); MPV 10.3 fL (8.0-11.0); Monocytes % 9.9; Neutrophils % 68.8; Nucleated RBC 3 %; Platelet Count 129 10^3/uL (130-400); RBC 3.08 10^6/uL (3.93-5.22); RDW 18.9 % (11.7-14.6); WBC 8.87 10^3/uL (4.4-10.8)
[2020-02-15 06:51] LABS: BUN 20 mg/dL (7-18); CREATININE 1.43 mg/dL (0.55-1.02); Calcium 7.5 mg/dL (8.5-10.1); Chloride 108 mmol/L (98-107); Estimated GFR 37.43 (mL/min/1.73m2); Glucose 259 mg/dL (74-106); Potassium 3.8 mmol/L (3.5-5.1); Sodium 141 mmol/L (136-145)
[2020-02-15] MEDS: Budesonide/Formoterol 160/4.5 6 GM 60 PUFF INH IH ×2 (07:44→21:58)
[2020-02-15] MEDS: Tiotropium Bromide-Respimat 10 PUFF INH IH (07:45)
[2020-02-15 08:27] VITALS: BP 143/81; PULSE 106; RESP 18; TEMP 36.7; O2SAT 95
[2020-02-15] MEDS: Potassium Chloride Liquid 20 MEQ PKT 40 MEQ PO ×2 (08:38→21:31)
[2020-02-15] MEDS: Insulin Aspart 300 UNITS/3 ML PEN SC ×3 (08:39→17:18)
[2020-02-15] MEDS: Furosemide 40 MG/4 ML VIAL IVP ×2 (08:39→15:53)
[2020-02-15] MEDS: Pantoprazole 40 MG VIAL IVP ×2 (08:39→21:33)
[2020-02-15] MEDS: Psyllium PKT 1 EACH PO (08:39)
[2020-02-15] MEDS: Pregabalin 100 MG CAP 200 MG PO ×3 (08:40→21:30)
[2020-02-15] MEDS: Sucralfate 1 GM TAB PO ×4 (08:41→21:30)
[2020-02-15] MEDS: Cyanocobalamin 500 MCG TAB 1000 MCG PO (08:41)
[2020-02-15] MEDS: Vancomycin 125 MG CAP PO ×4 (08:41→21:30)
[2020-02-15] MEDS: Folic Acid 1 MG TAB PO (08:41)
[2020-02-15] MEDS: Ferrous Sulfate 325 MG TAB PO ×2 (08:41→21:30)
[2020-02-15] MEDS: Loratidine 10 MG TAB PO (08:41)
[2020-02-15] MEDS: Montelukast 10 MG TAB PO (08:41)
[2020-02-15] MEDS: Hydrocortisone 10 MG TAB 20 MG PO (08:41)
[2020-02-15] MEDS: Lactobacillus Acidophilus CAP 1 CAP PO ×2 (08:41→21:30)
[2020-02-15] MEDS: Normal Saline 100 ML 200 ML (08:43)
[2020-02-15] MEDS: Nystatin CREAM 15 GM TUBE TP ×2 (08:44→21:34)
[2020-02-15] MEDS: Nystatin POWDER 60 GM JAR TP ×2 (08:44→21:34)
--- NOTE | 2020-02-15 14:05 | DSE_ITS ---
Date of service: 02/15/20 Time of Service: 14:05 DS: Diagnosis Discharge Diagnosis (1) Palliative care patient: Status: Chronic (2) Metastatic breast cancer: Status: Chronic (3) Recurrent urinary tract infection: Status: Resolved (4) Adrenal insufficiency: Status: Acute (5) CHF (congestive heart failure): Status: Chronic (6) Iron deficiency anemia: Status: Chronic (7) Diabetes mellitus: Status: Chronic (8) Elevated liver function tests: Status: Acute (9) C. difficile diarrhea: Status: Acute Discharge Plan Disposition Patient Disposition: HOME W/HOME HEALTH SERVICE Condition: Poor Discharge Details Reason For Visit: UTI Admit Date/Time: 02/08/20 18:20 Admit Provider: Vince Ta Attending Provider: Vince Ta Primary Care Provider: ANNA TORO Hospital Course Hospital Course: This is a 59-year-old female with multiple recent admissions and complex medical history including metastatic breast cancer on opioids for chronic pain, recurrent UTIs with indwelling Aelx catheter, adrenal insufficiency, anemia, and chronic C. difficile who presented to emergency room after starting to feel generalized malaise and fatigue and inability to urinate after Alex catheter fell out. Work up in the ED showed acute UTI, acute on chronic kidney injury and poorly managed pain on fentanyl patch (switched at some point from CADD pump). She was noted to have black tarry stools with a drop in her H&H requiring blood transfusion. She did initially refuse a blood transfusion but when her hemoglobin dropped to 6.3 she agreed to it and requested a GI work up. Surgery was consulted. Her HgB has responded appropriately to transfusion. She has no evidence of ongoing active bleeding. 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 It was assumed she has some gastritis related to steroids and recommendations were to continue PPI and carafate. She saw palliative again and now is requesting discharge to home on hospice services. She will be discharged with hospice, cadd pump and appropriate medication. discharge delay to tomorrow so all medication can be obtained. discussed with DR edouard who is in agreement. Home Meds and New Rx's Prescriptions: Continued Xgeva 120 mg/1.7 mL (70 mg/mL) solution 120 mg SC Q4W Qty: 1.7 RF: 0 Humulin R U-500 (Conc) Kwikpen 500 unit/mL (3 mL) insulin pen See Rx Instructions .ROUTE .COMPLEX RF: 0 montelukast [Singulair] 10 MG tablet 10 mg PO DAILY RF: 0 cyanocobalamin (vitamin B-12) [Vitamin B-12] 1,000 MCG tablet 1,000 mcg PO DAILY RF: 0 folic acid 1 MG tablet 1 mg PO DAILY RF: 0 Spiriva Respimat 4 GM mist 1 puff Inhalation DAILY RF: 0 budesonide-formoterol [Symbicort] 10.2 GM HFA aerosol inhaler 2 puff Inhalation BID RF: 0 levothyroxine 150 mcg Tablet 150 mcg PO DAILY RF: 0 Trulicity 1.5 mg/0.5 mL Pen Injector 1.5 mg SUBCUT QWEEK RF: 0 Afinitor 10 mg tablet 10 mg PO DAILY RF: 0 pregabalin 200 mg capsule 200 mg PO TID RF: 0 tolterodine 4 mg capsule,extended release 24hr 4 mg PO DAILY RF: 0 atorvastatin 40 mg tablet 40 mg PO HS RF: 0 omeprazole 40 mg Capsule,Delayed Release(Dr/Ec) 40 mg PO BID RF: 0 ferrous sulfate 325 mg (65 mg iron) Tablet 325 mg PO TID RF: 0 cranberry 450 mg Tablet 450 mg PO DAILY RF: 0 Narcan 4 mg/actuation Sassafras,Non-Aerosol 1 spray INTRANASAL PRN PRNRF: 0 Glucagon (HCl) Emergency Kit 1 mg Recon Soln 1 mg PRN PRNRF: 0 Lactobacillus acidophilus Capsule 1,000 mmu cells PO BID Qty: 30 RF: 0 exemestane 25 mg Tablet 25 mg PO DAILY RF: 0 albuterol sulfate 2.5 mg /3 mL (0.083 %) Solution For Nebulization 2.5 mg inhalation Q4H PRNRF: 0 ondansetron 8 mg Tablet,Disintegrating 8 mg PO Q8H PRNRF: 0 benzonatate 100 mg Capsule 200 mg PO TID PRN (Reason: Cough) RF: 0 nystatin 100,000 unit/gram Cream 1 applic TOPICAL BID RF: 0 nystatin 100,000 unit/gram Powder 1 applic TOPICAL BID RF: 0 epinephrine [EpiPen 2-Domingo] 0.3 mg/0.3 mL Auto-Injector 0.3 mg subcut PRN PRNRF: 0 albuterol sulfate 90 mcg/actuation Hfa Aerosol Inhaler 1 - 2 puff INHALATION QID PRNRF: 0 loratadine 10 mg Tablet 10 mg PO DAILY RF: 0 hydrocortisone 5 mg tablet 20 mg PO QAM RF: 0 fentanyl 50 mcg/hr patch 72 hour 50 mcg transdermal Q72H RF: 0 hydrocortisone 5 mg tablet 5 mg PO QDAY RF: 0 psyllium Packet 1 packet PO DAILY RF: 0 ammonium lactate 12 % Lotion 1 applic TOPICAL BID RF: 0 hydrocodone-acetaminophen 5-325 mg tablet 1 tab PO Q6H PRNRF: 0 ferrous sulfate 325 mg (65 mg iron) tablet,delayed release (DR/EC) 325 mg PO TID RF: 0 Discontinued ciprofloxacin HCl 100 mg tablet 100 mg PO DAILY RF: 0 Discharge Instructions Instructions: Urinary Tract Infection in Women (DC) Additional Instructions: outpatient orders and medications per hospice team. Stand Alone Forms: Nursing Discharge Form Referrals: ANNA TORO [Primary Care Provider] - Activity:: Activity as Tolerated Equipment/Supplies:: No Equipment Needed Diet:: As Tolerated Discharge Orders Discharge Orders: Discharge Order (Routine); Ordered 02/16/20 Ordered By: Bhargavi Myers DS: Summary Status at Discharge Functional status at discharge: bed bound Overall status at discharge: patient is not back to baseline Mental Status: other (some intermittent confusion) Speech and Movement: speech and movement normal Mood: congruent mood Affect: normal affect Exam Const General: cooperative, comfortable, no acute distress and ill appearing chronically Nutritional Appearance: obese Orientation: alert, awake and oriented x3 HENMT Head: normal to inspection, normocephalic and atraumatic Mouth: oral mucosae normal Resp Effort & Inspection: normal respiratory effort and able to speak in complete sentences Cardio Rate: regular rate Rhythm: regular rhythm GI Inspection: large pannus and obesity Palpation: soft General: other (alex draining clear yellow urine) Skin Lesions: lesion noted (Gluteal fold) Neuro General: patient alert, patient awake, patient oriented x3 and no focal motor deficits Cognition: normal cognition Speech: speech normal Extrem General: normal to inspection and full ROM Psych Speech and Movement: speech and movement normal Mood: congruent mood Affect: normal affect DS: Data Vitals/I&O Vitals and I&O: Vital Signs Temperature 36.7 C 02/15/20 08:27 Temperature Source Tympanic 02/15/20 08:27 Pulse 106 H 02/15/20 08:27 Pulse Rhythm Regular 02/15/20 11:10 Pulse 91 H 02/08/20 18:50 Respiratory Rate 18 02/15/20 08:27 Respiratory Effort Non-Labored 02/15/20 11:10 Respiratory Depth Normal 02/15/20 11:10 Respiratory Pattern Normal 02/15/20 11:10 Blood Pressure 143/81 H 02/15/20 08:27 Blood Pressure Mean 78 02/08/20 18:45 Blood Pressure Position Supine 02/08/20 17:45 Pulse Oximetry 95 02/15/20 08:27 Oxygen Delivery Method Nasal Cannula 02/15/20 08:27 Oxygen Flow Rate 2 02/15/20 08:27 Pain Level 3 02/15/20 08:27 Comment 02/14/20 23:35 Intake & Output 02/14/20 02/15/20 02/15/20 23:59 11:59 23:59 Intake Total 2498.59 / 4096.09 Output Total 3800 / 4600 1150 / 1150 Balance -1301.41 / -503.91 -1150 / -1150 Weight 134.7 kg Intake: IV 2018.59 / 2976.09 Oral 480 / 1120 Output: Urine 3800 / 4600 1150 / 1150 Other: Urine Color Pale Light Giselle Yellow Urine Appearance Clear Clear Stool Size Small Stool Characteristics Liquid Black Green Data Completed and Pending Labs on day of discharge: Labs from last 24 hours 02/15/20 02/15/20 06:20 06:20 WBC 8.87 RBC 3.08 L Hgb 8.1 L Hct 26.7 L MCV 86.7 MCH 26.3 L MCHC 30.3 L RDW 18.9 H Plt Count 129 L MPV 10.3 Immature Gran % 1.4 Neutrophils % 68.8 Lymphocytes % 19.7 Monocytes % 9.9 Eosinophils % 0.1 Basophils % 0.1 Nucleated RBC % 3 Absolute Neutrophils 6.10 Absolute Lymphocytes 1.75 Absolute Monocytes 0.88 H Absolute Eosinophils 0.01 Absolute Basophils 0.01 Sodium 141 Potassium 3.8 D Chloride 108 H Carbon Dioxide 23.0 Anion Gap 10.0 BUN 20 H Creatinine 1.43 H Estimated GFR/1.73 m2 37.43 Glucose 259 H Calcium 7.5 L PFSH Medical History Acute confusion due to infection Acute pain due to trauma Acute UTI Adenoma of pituitary benign; renoved surgically on steroids and synthroid to replete Bacteremia Citrobacter C. difficile diarrhea Cancer related pain on hydromorphone pump Carpal tunnel syndrome Chronic adrenal insufficiency Chronic pain Chronic respiratory failure with hypoxia Chronic venous stasis dermatitis COPD (chronic obstructive pulmonary disease) On nocturnal oxygen - 2L prn Depression Diabetes mellitus Insulin dependent Discharge planning issues Diverticulosis DNI (do not intubate) DNR (do not resuscitate) Dyslipidemia E. coli bacteremia Encounter for hospice care discussion Fatigue Alex catheter in place Goals of care, counseling/discussion History of breast cancer metastatic, with lymphatic spread and bone mets Hyperlipidemia Hypopituitarism Hypothyroidism Influenza B Iron deficiency anemia Left lower lobe pneumonia Metastatic breast cancer Obstructive sleep apnea per [facility] records Palliative care patient Pneumonia POLST (Physician Orders for Life-Sustaining Treatment) done 03/26/19; DNR/DNI Positive blood cultures Pulmonary emboli Recurrent urinary tract infection Restless leg syndrome SOB (shortness of breath) Spinal stenosis Stage IV breast cancer in female Toxic metabolic encephalopathy Uncontrolled pain Unsteady gait Urinary incontinence UTI (urinary tract infection) UTI (urinary tract infection) UTI (urinary tract infection) Surgical History H/O bilateral mastectomy H/O colonoscopy with polypectomy H/O mastectomy bilateral History of carpal tunnel release of both wrists Port-A-Cath in place Status post transsphenoidal pituitary resection Family History Father , age 83 from complications of diabetes Prostate cancer Diabetes Mother , age 79 from complications of Crohn's disease and colitis Crohn's disease Colitis Daughter No problems noted. Daughter No problems noted. Brother Arthritis severe Obesity Sister Diabetes Obesity Sister No problems noted. Sister No problems noted. Social History Smoking/Tobacco Use Status: Former Tobacco Use Smoking risk assessment performed?: Yes Alcohol Intake: never Drug use: Never Substance use type: does not use Caregiver/Support person: Yes Household members: children Number of Children: 2 Communication Needs: Hard of Hearing and Corrective Lenses Education Level: middle school Do you need help understanding health information?: Always current occupation: on disability Pets and animals: Yes (4 cats, 3 dogs, 1 bird, 6 hermit crabs) Pets and animals: cat(s), dog(s), bird(s) and other Details: hermit crabs Current gender identity: female What is your relationship status?: How often do you talk on the phone with friends or family?: once per week How often do you get together with friends or relatives?: three or more times per week Panel score (0-1 are the most socially isolated patients): 1 What type of physical activity do you participate in: none, sedentary lifestyle, wheelchair-bound and additional Details: needs a new wheelchair, cannot walk far, just a few steps Special pedro pablo needs: No Seatbelt use: always Working smoke detector in home: Yes Fire extinguisher in home: Yes Firearms in home: No Do you feel safe at home: Yes Do you feel safe in your relationship?: Yes Additional Social history: , with 2 children. 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 She is not currently working and is on disability. Has a history of tobacco, quit in 1992. Reports rare use of alcohol only. Lives with daughter Bhargavi in [place], who is her Arnold caregiver; her other daughter lives close by. Bedbound since pelvic fracture. Recent scans show progression of breast cancer.
--- NOTE | 2020-02-15 14:52 | PCPN_ITS ---
Date of service: 02/15/20 Time of Service: 12:53 Assessment and Plan Assessment and plan (1) Anemia associated with acute blood loss: Status: Acute Assessment and plan: Likely from the mets to her stomach from her breast cancer. Likely to bleed again despite PPI. Another indication of why she would be best served by changing to comfort measures, stopping testing, interventions, etc. (2) Symptomatic anemia: Status: Acute (3) Shortness of breath: Status: Acute Assessment and plan: multifactorial from anemia, from cancer, from deconditioning suggest use of low dose opioid to help with dyspnea oxygen for comfort (4) Encounter for hospice care discussion: Status: Acute Assessment and plan: will be on [facility] are aware Kiki and Candace understanding that there are no aggressive interventions available, but hospitalist team and hospice team committed to keeping her comfortable she wants to go home SUKHDEV (5) Fatigue: Status: Chronic Qualifiers: Fatigue type: due to neoplasm Qualified Code(s): R53.0 - Neoplastic (malignant) related fatigue (6) Stage IV breast cancer in female: Status: Chronic Assessment and plan: Candace has lived longer than anyone expected she is now in her last days to weeks suggest we get her home and keep her comfortable with no further hospitalizations, unless we cannot keep her comfortable at home or if Kiki needs a break, in keeping with hospice philosophy (7) Cancer related pain: Status: Chronic Assessment and plan: does better on CADD pump than with patches Subjective Subjective Patient reports: pain is less Interval history since last seen: I spoke to Candace's oncologist, Dr Walden in the am prior to seeing her. Drill Runner Helper Lauren Wilkerson and I then called her daughter, Kiki soon before we saw Candace clinically. I reviewed the recent PET scan results in detail with Kiki. In general, the radiologist listed 8 bullet points. 7/8 described advancement/progression of her metastatic breast cancer. In particular, she was noted to have a lesion in her stomach, which could be one of the causes for her anemia, along with her advanced liver mets. Exam Const General: cooperative, comfortable, no acute distress and ill appearing chronically Nutritional Appearance: obese Orientation: alert, awake and oriented x3 HENMT Head: normal to inspection, normocephalic and atraumatic Mouth: oral mucosae normal Resp Effort & Inspection: normal respiratory effort and able to speak in complete sentences Cardio Rate: regular rate Rhythm: regular rhythm GI Inspection: large pannus and obesity Palpation: soft General: other (alex draining clear yellow urine) Skin Lesions: lesion noted (Gluteal fold) Neuro General: patient alert, patient awake, patient oriented x3 and no focal motor deficits Cognition: normal cognition Speech: speech normal Extrem General: normal to inspection and full ROM Psych Speech and Movement: speech and movement normal Mood: congruent mood Affect: normal affect Objective Last Vital Signs Temp 98.1 F 02/15/20 08:27 Pulse 106 H 02/15/20 08:27 Resp 18 02/15/20 08:27 BP 143/81 H 02/15/20 08:27 Pulse Ox 95 02/15/20 08:27 Laboratory Results - last 24 hr 02/15/20 02/15/20 06:20 06:20 WBC 8.87 RBC 3.08 L Hgb 8.1 L Hct 26.7 L MCV 86.7 MCH 26.3 L MCHC 30.3 L RDW 18.9 H Plt Count 129 L MPV 10.3 Immature Gran % 1.4 Neutrophils % 68.8 Lymphocytes % 19.7 Monocytes % 9.9 Eosinophils % 0.1 Basophils % 0.1 Nucleated RBC % 3 Absolute Neutrophils 6.10 Absolute Lymphocytes 1.75 Absolute Monocytes 0.88 H Absolute Eosinophils 0.01 Absolute Basophils 0.01 Sodium 141 Potassium 3.8 D Chloride 108 H Carbon Dioxide 23.0 Anion Gap 10.0 BUN 20 H Creatinine 1.43 H Estimated GFR/1.73 m2 37.43 Glucose 259 H Calcium 7.5 L
[2020-02-15] MEDS: Hydrocortisone 10 MG TAB 5 MG PO (15:56)
--- NOTE | 2020-02-15 16:11 | CHAPLAIN ---
I visited Candace this morning and we had a short conversation. I returned later and was with Candace when Dr. Royal and Infrastructure Administrator Lauren came in for a palliative care consult. Lauren had Candace's daughter Claire on the phone so she could talk with her mom. Dr. Royal said she has spoken with Candace's oncologist, who said that Francoises cancer has spread and there is one more treatment option to try which has a zero to one percent chance of being affective. It's been unclear if Claire and Candace understood from their last conversation with the oncologist that Francoises cancer has spread through out her body. Dr. Royal explained the options of trying the last treatment the oncologist offered or going home on hospice. Claire said she was willing to do whatever Candace wanted to do. They decided Candace would go home on hospice tomorrow. Yesterday Candace was very tired and it was difficult to rouse her for a conversation. Today she is much more alert, but a bit forgetful and had trouble feeding herself, although she was determined and got a few bites of mashed potato and custard in her mouth. Lauren and Dr. Royal assured Candace that she could come back the hospital to treat her UTIs or any other issue or symptom, but they would not continue to treat her cancer any more. After the consult, Candace said it had been a difficult decision to make, but she is confident in Claire's care. I will continue to visit.
[2020-02-15 16:27] VITALS: BP 127/77; PULSE 98; RESP 18; TEMP 36.6; O2SAT 100
--- NOTE | 2020-02-15 17:21 | CMPROGNOTE_ITS ---
- If Service Date Differs Date of service: 02/15/20 Time of Service: 17:21 Care Management Progress Note S/O: Candace was sitting up in bed visiting with Mary Carmen Bryan, the receiving coordinator, when ЮЛИЯ and Dr. Royal entered the room. Dr. Royal had a conversation with Dr. Walden, Candace's Oncologist, shortly before the meeting. Dr. Walden shared the results of the PET Scan done on 02/04/20. It showed widely metastatic disease with progression of existing lesions as well as several new areas of invol vement. Dr. Royal also had a copy of the report and shared it with Kiki prior to meeting with Candace. With Kiki on speaker phone, and ЮЛИЯ Lentz and nurse Kaya present, Dr. Royal discussed the report and prognosis, focusing her attention on Candace. She again suggested hospice as an alternative to proceeding with an invasive workup for the possible GI bleed Candace has experienced and also discussed goals of care. After Kiki and Candace had a conversation and asked a few questions, Candace made the decision to go home on hospice. Kiki asserted that she would support any decision that Candace made. Later ЮЛИЯ returned to Candace's room to ensure that she was comfortable with the conversation and subsequent decision. She stated I am done. I just want to go home and stay there and be with my family. A: Candace is a 59 year old woman admitted on 02/09/20 with a UTI P: Candace will be discharged home with a resumption of home health nursing services, likely tomorrow. She will be admitted to hospice through [facility]. ЮЛИЯ contacted them today to discuss. Orders for CADD pump, for pain management were sent to [facility]. Candace will follow up with her community providers including her Oncologist and Nurys Martinez her PCP. She will need new orders for home health for frequent labs and possibly out patient transfusions which can be set up through our infusion suite. She will transport via ambulance coordinated by ЮЛИЯ. ЮЛИЯ will continue to support Candace, her family and assess for discharge planning needs.
[2020-02-15] MEDS: Atorvastatin 40 MG TAB PO (21:30)
[2020-02-15] MEDS: Normal Saline 1,000 ML 15 ML IV (21:57)
[2020-02-15 23:34] VITALS: BP 130/80; PULSE 94; RESP 18; TEMP 36.7; O2SAT 98
[2020-02-16] MEDS: Levothyroxine 75 MCG TAB 150 MCG PO (05:44)
[2020-02-16] MEDS: Furosemide 40 MG/4 ML VIAL IVP (07:46)
[2020-02-16] MEDS: Normal Saline Flush 10 ML SYR IVP ×2 (07:46→12:28)
[2020-02-16] MEDS: Sucralfate 1 GM TAB PO ×2 (07:47→10:41)
[2020-02-16 07:51] VITALS: BP 119/68; PULSE 107; RESP 19; TEMP 36.9; O2SAT 100
[2020-02-16] MEDS: Tiotropium Bromide-Respimat 10 PUFF INH IH (08:02)
[2020-02-16] MEDS: Budesonide/Formoterol 160/4.5 6 GM 60 PUFF INH IH (08:02)
[2020-02-16] MEDS: Montelukast 10 MG TAB PO (08:05)
[2020-02-16] MEDS: Potassium Chloride Liquid 20 MEQ PKT 40 MEQ PO (08:05)
[2020-02-16] MEDS: Pregabalin 100 MG CAP 200 MG PO (08:05)
[2020-02-16] MEDS: Vancomycin 125 MG CAP PO ×2 (08:06→11:47)
[2020-02-16] MEDS: Hydrocortisone 10 MG TAB 20 MG PO (08:06)
[2020-02-16] MEDS: Cyanocobalamin 500 MCG TAB 1000 MCG PO (08:07)
[2020-02-16] MEDS: Lactobacillus Acidophilus CAP 1 CAP PO (08:07)
[2020-02-16] MEDS: Pantoprazole 40 MG VIAL IVP (08:07)
[2020-02-16] MEDS: Loratidine 10 MG TAB PO (08:07)
[2020-02-16] MEDS: Folic Acid 1 MG TAB PO (08:07)
[2020-02-16] MEDS: Psyllium PKT 1 EACH PO (08:07)
[2020-02-16] MEDS: Ferrous Sulfate 325 MG TAB PO (08:07)
[2020-02-16] MEDS: Nystatin POWDER 60 GM JAR TP (09:11)
[2020-02-16] MEDS: Nystatin CREAM 15 GM TUBE TP (09:11)
[2020-02-16] MEDS: Insulin Aspart 300 UNITS/3 ML PEN SC (11:42)
[2020-02-16] MEDS: Heparin 500 UNITS/5 ML SYRINGE IVP (12:28)
--- NOTE | 2020-02-16 13:08 | CMDISCH_ITS ---
- If Service Date Differs Date of service: 02/16/20 Time of Service: 13:08 LACE Index Scoring Tool - Questions: Length of Stay (in days): 7 - 13 Acuity (Admit via E.D.?): Yes Comorbidities: Diabetes w/o Complication, Chronic Pulmonary Disease, Metastatic Solid Tumor E.D. Visits: 22 - Answers: Total Score: 17 Risk of Readmission: High Risk Care Management Discharge Reason for Hospitalization: UTI Discharge Plan: Candace will be discharged home with a resumption of home health nursing services. She will be admitted to hospice through [facility]. Orders for CADD pump, for pain management through [facility]. Candace will follow up with her community providers including her Oncologist and Nurys Martinez her PCP. She will transport via ambulance coordinated by CM. Patient/Family Education Needs: Discharge plan, limitations, follow up plan, Ask Me Three Services Needed at Discharge: Home Health Care Services, Infusion Therapy, Transportation
--- NOTE | 2020-02-17 14:21 | CHAPLAIN ---
I visited Candace a couple of times yesterday before she was discharged home. She'd made a difficult decision the day before to go home on hospice. She talked about that being a hard decision to make. She is confident that her daughter Kiki will be able to care for her, and she said she wants to be home with Kiki, Kiki's daughter Logan, and Candace's dog. Dr. Royal explained that Candace could still return to [facility] for treatments for UTIs and symptom management. Kiki usually calls ahead if Kiki is being transferred here.
== END 2020-02-16 12:50 | disposition home health service (06) | DRG 689 ==
LOC: ER 19:03 → MS 19:48
PROVIDERS: Nurse Practitioner Family; Admitting Provider Family Medicine; Emergency Provider Nurse Practitioner Acute Care; PCP Nurse Practitioner Family; Visit Provider Family Medicine
DX: N39.0 Urinary tract infection, site not specified (principal); G92 Toxic encephalopathy; E27.40 Unspecified adrenocortical insufficiency; J96.11 Chronic respiratory failure with hypoxia; C79.51 Secondary malignant neoplasm of bone; C77.9 Secondary and unspecified malignant neoplasm of lymph node, unspecified; E23.0 Hypopituitarism; Z68.41 Body mass index [BMI] 40.0-44.9, adult; K92.1 Melena; I50.32 Chronic diastolic (congestive) heart failure; A04.71 Enterocolitis due to Clostridium difficile, recurrent; N17.9 Acute kidney failure, unspecified; L89.152 Pressure ulcer of sacral region, stage 2; Z51.5 Encounter for palliative care; I87.2 Venous insufficiency (chronic) (peripheral); J44.9 Chronic obstructive pulmonary disease, unspecified; Z99.81 Dependence on supplemental oxygen; Z79.01 Long term (current) use of anticoagulants; F32.9 Major depressive disorder, single episode, unspecified; Z66 Do not resuscitate; E78.5 Hyperlipidemia, unspecified; E03.9 Hypothyroidism, unspecified; D50.9 Iron deficiency anemia, unspecified; G47.33 Obstructive sleep apnea (adult) (pediatric); Z86.711 Personal history of pulmonary embolism; G25.81 Restless legs syndrome; Z87.440 Personal history of urinary (tract) infections; M48.00 Spinal stenosis, site unspecified; R26.81 Unsteadiness on feet; R32 Unspecified urinary incontinence; E66.9 Obesity, unspecified; E11.22 Type 2 diabetes mellitus with diabetic chronic kidney disease; N18.30 Chronic kidney disease, stage 3 unspecified; Z79.4 Long term (current) use of insulin; Z79.52 Long term (current) use of systemic steroids; G89.3 Neoplasm related pain (acute) (chronic); C50.912 Malignant neoplasm of unspecified site of left female breast; C50.911 Malignant neoplasm of unspecified site of right female breast; B96.4 Proteus (mirabilis) (morganii) as the cause of diseases classified elsewhere; K29.60 Other gastritis without bleeding; Z74.01 Bed confinement status
CPT/HCPCS: 36415; 36591; 51702; 80048; 80053; 85027; 86850; 86900; 86901; 86920; 86945; 87040; 87077; 94640; 96361; 96365; 99221; 99223; 99231; 99233; 99239; 99252; 99255; 99285; J1650; U0003; 81003; 81015; 83540; 83550; 83735; 85025; 87086; 87186; 99232; 99238; J0131; J0696; J1170; J1720; J1940; J3490; P9016

== ENCOUNTER 2020-02-23 10:45 | Inpatient (IN) | payer MEDICARE, MEDICAID, SELFPAY ==
[2020-02-23] VITALS (147 sets, daily range): BP systolic 58–136; BP diastolic 22–101; PULSE 71–115; RESP 14–37; TEMP 35.8–36.4; O2SAT 90–100
--- NOTE | 2020-02-23 10:44 | W.ED.GENAD ---
Discharge Plan Disposition Patient Disposition: [facility] INPATIENT Condition: Stable Discharge Details Clinical Impression: Acute on chronic anemia, GI bleed, Shortness of breath, Hypoglycemia Admit Date/Time: 02/23/20 14:35 Admit Provider: Sheyla Reno Attending Provider: Sheyla Reno Primary Care Provider: ANNA TORO ED Provider: Gavi Cervantes Medical Decision Making 59yo F w/ multiple recent admissions and complex medical history including metastatic breast cancer on opioids for chronic pain, recurrent UTIs with indwelling Mendoza catheter, adrenal insufficiency, chronic C. difficile, recent GI bleed with anemia requiring blood transfusions presents for shortness of breath, hypoglycemia and difficulty swallowing this morning. Case discussed with care management who stated that pt's hospice has now been revoked as she has been brought to the hospital. Discussed with patient's daughter Bhargavi over the phone and she understands this. EKG notes a rate of 97, sinus, no STEMI, nondiagnostic. Patient is significantly drowsy but able to answer questions and oriented x3. She is complaining of pain in her right hip and lower back which is chronic. She had a fentanyl patch placed just prior to arrival. After discussion with daughter, her Dilaudid CADD pump was DC'd per her daughter's request due to increased somnolence. Will order dose of morphine IV. Discussed with daughter that as patient was on hospice, acute concerns are usually managed at home accordingly. She expressed that she understands this but that the patient requested to go to the ED. Case discussed with Amber from [facility] who had stated that daughter requested for patient to come to the ER for evaluation. Amber expressed that she does not feel that daughter can manage patient on hospice and she may need to be palliative care and come to the hospital as needed. Screening labs obtained on arrival and noted a hemoglobin of 3.8. She had a hemoglobin of 6.9 on her recent admission and was given a blood transfusion. She was found to be high risk for EGD on recent admission and this was never performed. Patient and daughter now consent to blood transfusion. Troponin 0.08 which I suspect is likely demand due to anemia. White blood cell count 19, bands 2, lactate 4.4. Urinalysis chronically contaminated due to indwelling Mendoza. Chest x-ray notes a questionable right lower lobe pneumonia. We will start vancomycin and Zosyn for presumed pneumonia in setting of shortness of breath and reported hypoxia at home in addition to possible UTI. Daughter is agreeable with plan for admission. Case discussed with hospitalist to request palliative care consult as discussion with daughter and plan for home hospice may be more advisable. Attempted to contact Dr. Madera by phone and no response. Hospitalist accepts patient for admission. Hospitalist evaluated patient at bedside and there was discussion about possible transfer to [facility] for the EGD as the general surgeons here would not perform this high risk procedure here. Candace appears to have waxing and waning alertness and I question her ability to make decisions. Case discussed with patient's daughter NAJMA Burk and she does not want patient to be transferred to [facility] as she was told by Dr. Royal briefly that this is a high risk procedure with a high chance of her bleeding on the operating table and would rather her to be treated at this time with blood, IV antibiotics and fluids with discussion of palliative care and she would like to eventually go home. Case discussed with care management who will attempt to have a family meeting patient, patient's daughter Bhargavi, palliative care, care management and hospitalist to discuss patient plan of care going forward. Medical Records Medical records reviewed: Yes I reviewed the patient's medical records. Imaging Data Radiologic Study: Radiologist's impression: XR PORTABLE CHEST AP CLINICAL HISTORY: sob, r/o acute disease TECHNIQUE: 2D digital imaging was performed. COMPARISON: CR XR PORTABLE CHEST AP from 01/03/2020 FINDINGS: MEDIASTINUM: Normal. HEART: Normal. PULMONARY VASCULATURE: Normal. LUNGS: There appears to be a right basilar infiltrate. This may represent atelectasis or pneumonia. PLEURAL SPACE: No pleural effusion or pneumothorax. BONE:Within normal limits for the patient's age. OTHER FINDINGS:The indwelling central venous catheter is stable. The tip is seen in the superior vena cava. IMPRESSION: Right basilar infiltrate which may represent atelectasis or pneumonia. Lab Data Lab results reviewed: Yes I reviewed the patient's lab results. Labs: 02/23/20 13:15 Blood Blood Culture - Pending 02/23/20 12:11 Urine - Clean Catch Urine Culture - Pending 02/23/20 12:07 Blood Blood Culture - Pending Laboratory Tests Range/Units 02/23/20 02/23/20 02/23/20 10:55 10:55 10:55 WBC (4.4-10.8) 10^3/uL 19.73 H RBC (3.93-5.22) 10^6/uL 1.40 L Hgb (11.2-15.7) g/dL 3.8 L* Hct (36.0-46.0) % 13.4 L* MCV (80-95) fL 95.7 H MCH (27.0-33.0) pg 27.1 MCHC (32.0-36.0) % 28.4 L RDW (11.7-14.6) % 26.5 H Plt Count (130-400) 10^3/uL 189 MPV (8.0-11.0) fL 11.8 H Immature Gran % 0.0 Neutrophils % 62.0 Band Neutrophils % 2 Lymphocytes % 17.0 Monocytes % 3.0 Eosinophils % 1.0 Basophils % 1.0 Metamyelocytes % 2 Myelocytes % 5 Promyelocytes % 5 Other Cells % 2 Nucleated RBC % % 22 Absolute Neutrophils (1.2-6.7) 10^3/uL 12.63 H Absolute Lymphocytes (1.2-3.4) 10^3/uL 3.35 Absolute Monocytes (0.1-0.8) 10^3/uL 0.59 Absolute Eosinophils (0.0-0.7) 10^3/uL 0.20 Absolute Basophils (0.0-0.2) 10^3/uL 0.20 RBC Morphology See below Polychromasia Present Hypochromasia 3+ Poikilocytosis 2+ Anisocytosis 3+ PT (9.3-11.0) sec 12.8 H INR (0.9-1.1) 1.3 H APTT (21.0-27.5) sec 24.5 VBG Lactate (0.6-1.4) mmol/L Sodium (136-145) mmol/L 145 Potassium (3.5-5.1) mmol/L 3.7 Chloride (98-107) mmol/L 108 H Carbon Dioxide (21.0-32.0) mmol/L 26.7 Anion Gap (3-11) mmol/L 10.3 BUN (7-18) mg/dL 37 H Creatinine (0.55-1.02) mg/dL 1.55 H Estimated GFR/1.73 m2 (mL/min/1.73m2) 34.11 Glucose (74-106) mg/dL 74 Calcium (8.5-10.1) mg/dL 8.2 L Magnesium (1.8-2.4) mg/dL 1.7 L Total Bilirubin (0.2-1.0) mg/dL 0.7 AST (15-37) U/L 578 H ALT (14-59) U/L 89 H Alkaline Phosphatase (46-116) U/L 716 H Troponin I (<0.06) ng/mL 0.08 H* Total Protein (6.4-8.2) g/dL 5.2 L Albumin (3.4-5.0) g/dL 1.8 L Procalcitonin ng/mL Urine Color (Yellow) Urine Clarity (Clear) Urine pH (5-8) Ur Specific [place] (1.005-1.025) Urine Protein (Negative) mg/dL Urine Ketones (Negative) mg/dL Urine Blood (Negative) Urine Nitrite (Negative) Urine Bilirubin (Negative) Urine Urobilinogen (Up TO 0.2) EU/dL Ur Leukocyte Esterase (Negative) Urine RBC (0-2) HPF Urine WBC (0-5) HPF Ur Epithelial Cells (Negative) HPF Urine Crystals (Negative) HPF Urine Bacteria (Negative) HPF Urine Casts (Negative) LPF Urine Mucus (Negative) Urine Other (Negative) Ur Culture Indicated? Urine Glucose (Negative) mg/dL Patient ABO/Rh Antibody Screen Crossmatch Range/Units 02/23/20 02/23/20 02/23/20 12:11 12:19 12:19 WBC (4.4-10.8) 10^3/uL RBC (3.93-5.22) 10^6/uL Hgb (11.2-15.7) g/dL Hct (36.0-46.0) % MCV (80-95) fL MCH (27.0-33.0) pg MCHC (32.0-36.0) % RDW (11.7-14.6) % Plt Count (130-400) 10^3/uL MPV (8.0-11.0) fL Immature Gran % Neutrophils % Band Neutrophils % Lymphocytes % Monocytes % Eosinophils % Basophils % Metamyelocytes % Myelocytes % Promyelocytes % Other Cells % Nucleated RBC % % Absolute Neutrophils (1.2-6.7) 10^3/uL Absolute Lymphocytes (1.2-3.4) 10^3/uL Absolute Monocytes (0.1-0.8) 10^3/uL Absolute Eosinophils (0.0-0.7) 10^3/uL Absolute Basophils (0.0-0.2) 10^3/uL RBC Morphology Polychromasia Hypochromasia Poikilocytosis Anisocytosis PT (9.3-11.0) sec INR (0.9-1.1) APTT (21.0-27.5) sec VBG Lactate (0.6-1.4) mmol/L 4.4 H* Sodium (136-145) mmol/L Potassium (3.5-5.1) mmol/L Chloride (98-107) mmol/L Carbon Dioxide (21.0-32.0) mmol/L Anion Gap (3-11) mmol/L BUN (7-18) mg/dL Creatinine (0.55-1.02) mg/dL Estimated GFR/1.73 m2 (mL/min/1.73m2) Glucose (74-106) mg/dL Calcium (8.5-10.1) mg/dL Magnesium (1.8-2.4) mg/dL Total Bilirubin (0.2-1.0) mg/dL AST (15-37) U/L ALT (14-59) U/L Alkaline Phosphatase (46-116) U/L Troponin I (<0.06) ng/mL Total Protein (6.4-8.2) g/dL Albumin (3.4-5.0) g/dL Procalcitonin ng/mL 2.0 Urine Color (Yellow) Yellow Urine Clarity (Clear) Cloudy Urine pH (5-8) 5.5 Ur Specific [place] (1.005-1.025) 1.015 Urine Protein (Negative) mg/dL 30 H Urine Ketones (Negative) mg/dL Negative Urine Blood (Negative) Moderate H Urine Nitrite (Negative) Positive H Urine Bilirubin (Negative) Small H Urine Urobilinogen (Up TO 0.2) EU/dL 0.2 Ur Leukocyte Esterase (Negative) Moderate H Urine RBC (0-2) HPF 10-20 H Urine WBC (0-5) HPF >50 H Ur Epithelial Cells (Negative) HPF Few Urine Crystals (Negative) HPF Few amorphous Urine Bacteria (Negative) HPF Moderate Urine Casts (Negative) LPF 0-2 coarse granular Urine Mucus (Negative) Negative Urine Other (Negative) Ur Culture Indicated? Yes Urine Glucose (Negative) mg/dL Negative Patient ABO/Rh A Positive Antibody Screen Negative Crossmatch See Detail ECG Data Attestation: I personally reviewed and interpreted this ECG (s) as follows: Interpretation: rate of 97, sinus, no acute ST elevation or depression, DE 147, QRS 102, QTc 474. HPI General Mode of arrival: EMS. Date/Time Provider Initiated Documentation: 02/23/20 12:02. Limitations to Documentation: physical limitation. Information obtained by: patient and family. HPI Narrative: Pt is a 59yo F w/ a h/o multiple recent admissions and complex medical history including metastatic breast cancer on opioids for chronic pain, recurrent UTIs with indwelling Mendoza catheter, adrenal insufficiency, chronic C. 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 Pt was last admitted here last week and discharged on home hospice. Daughter states she became concerned about pt's symptoms and requested she come to the ED. daughter states that patient also requested to come to the ER for evaluation. Related Data Home Medications Medication Instructions Recorded Confirmed Spiriva Respimat 1 puff INHALATION DAILY 04/03/17 02/08/20 budesonide-formoterol [Symbicort] 2 puff INHALATION BID 04/03/17 02/08/20 cyanocobalamin (vitamin B-12) 1,000 mcg PO DAILY 04/03/17 02/08/20 [Vitamin B-12] folic acid 1 mg PO DAILY 04/03/17 02/08/20 montelukast [Singulair] 10 mg PO DAILY 04/03/17 02/08/20 Trulicity 1.5 mg SUBCUT QWEEK 05/06/18 02/08/20 levothyroxine 150 mcg PO DAILY 05/06/18 02/08/20 Glucagon (HCl) Emergency Kit 1 mg PRN PRN 07/25/19 02/08/20 Narcan 1 spray INTRANASAL PRN PRN 07/25/19 02/08/20 cranberry 450 mg PO DAILY 07/25/19 02/08/20 ferrous sulfate 325 mg PO TID 07/25/19 02/09/20 omeprazole 40 mg PO BID 07/25/19 02/09/20 Lactobacillus acidophilus 1,000 mmu cells PO BID #30 cap 08/01/19 02/08/20 denosumab 120 mg/1.7 mL (70 mg/mL) 120 mg SC Q4W #1.7 ml 10/19/19 02/09/20 subcutaneous solution Afinitor 10 mg PO DAILY 11/03/19 02/08/20 atorvastatin 40 mg PO HS 11/04/19 02/09/20 pregabalin 200 mg PO TID 11/04/19 02/08/20 tolterodine 4 mg PO DAILY 11/04/19 02/09/20 Humulin R U-500 (Conc) Hoikpen See Rx Instructions .ROUTE .COMPLEX 12/15/19 02/09/20 albuterol sulfate 1 - 2 puff INHALATION QID PRN 02/08/20 02/08/20 albuterol sulfate 2.5 mg INHALATION Q4H PRN 02/08/20 02/08/20 benzonatate 200 mg PO TID PRN 02/08/20 02/09/20 epinephrine [EpiPen 2-Domingo] 0.3 mg SUBCUT PRN PRN 02/08/20 02/09/20 exemestane 25 mg PO DAILY 02/08/20 02/08/20 hydrocortisone 20 mg PO QAM 02/08/20 02/09/20 loratadine 10 mg PO DAILY 02/08/20 02/08/20 nystatin 1 applic TOPICAL BID 02/08/20 02/08/20 nystatin 1 applic TOPICAL BID 02/08/20 02/09/20 ondansetron 8 mg PO Q8H PRN 02/08/20 02/08/20 ammonium lactate 1 applic TOPICAL BID 02/09/20 02/09/20 fentanyl 50 mcg TRANSDERMAL Q72H 02/09/20 02/09/20 ferrous sulfate 325 mg PO TID 02/09/20 02/09/20 hydrocodone-acetaminophen 1 tab PO Q6H PRN 02/09/20 02/09/20 hydrocortisone 5 mg PO QDAY 02/09/20 02/09/20 psyllium 1 packet PO DAILY 02/09/20 02/09/20 Previous Rx's Medication Instructions Recorded Lactobacillus acidophilus 1,000 mmu cells PO BID #30 cap 08/01/19 denosumab 120 mg/1.7 mL (70 mg/mL) 120 mg SC Q4W #1.7 ml 10/19/19 subcutaneous solution Allergies Allergy/AdvReac Type Severity Reaction Status Date / Time bee venom protein (honey bee) Allergy Unknown Unverified 02/23/20 10:48 adhesive tape AdvReac Mild Unverified 02/23/20 10:48 Latex, Natural Rubber AdvReac Mild Unverified 02/23/20 10:48 General CARMEN: 3 Review of Systems All systems reviewed & are unremarkable except as noted in HPI and below Constitutional Constitutional: Reports as per HPI, Denies chills and Denies fever(s) Eyes Eyes: Denies blurry vision ENT Ears, Nose, Mouth, and Throat: Denies dizziness, Denies sore throat and Denies throat swelling Cardiovascular Cardiovascular: Denies chest pain and Reports dyspnea Respiratory Respiratory: Denies cough and Reports dyspnea Gastrointestinal Gastrointestinal: Denies abdominal pain, Denies diarrhea and Denies vomiting Genitourinary Genitourinary: Denies hematuria and Denies dysuria Musculoskeletal Musculoskeletal: Denies back pain and Denies numbness Integumentary/Breasts Skin/Breast: Denies lesions and Denies rash Neurologic Neurologic: Denies dizziness, Denies localized weakness and Denies numbness Allergic/Immunologic Allergic/Immunologic: Denies throat swelling [facility] Medical History Acute confusion due to infection Acute pain due to trauma Acute UTI Adenoma of pituitary benign; renoved surgically on steroids and synthroid to replete Bacteremia Citrobacter C. difficile diarrhea Cancer related pain on hydromorphone pump Carpal tunnel syndrome Chronic adrenal insufficiency Chronic pain Chronic respiratory failure with hypoxia Chronic venous stasis dermatitis COPD (chronic obstructive pulmonary disease) On nocturnal oxygen - 2L prn Depression Diabetes mellitus Insulin dependent Discharge planning issues Diverticulosis DNI (do not intubate) DNR (do not resuscitate) Dyslipidemia E. coli bacteremia Encounter for hospice care discussion Fatigue Mendoza catheter in place Goals of care, counseling/discussion History of breast cancer metastatic, with lymphatic spread and bone mets Hyperlipidemia Hypopituitarism Hypothyroidism Influenza B Iron deficiency anemia Left lower lobe pneumonia Metastatic breast cancer Obstructive sleep apnea per [facility] records Palliative care patient Pneumonia POLST (Physician Orders for Life-Sustaining Treatment) done 03/26/19; DNR/DNI Positive blood cultures Pulmonary emboli Recurrent urinary tract infection Restless leg syndrome SOB (shortness of breath) Spinal stenosis Stage IV breast cancer in female Toxic metabolic encephalopathy Uncontrolled pain Unsteady gait Urinary incontinence UTI (urinary tract infection) UTI (urinary tract infection) UTI (urinary tract infection) Surgical History H/O bilateral mastectomy H/O colonoscopy with polypectomy H/O mastectomy bilateral History of carpal tunnel release of both wrists Port-A-Cath in place Status post transsphenoidal pituitary resection Family History Father , age 83 from complications of diabetes Prostate cancer Diabetes Mother , age 79 from complications of Crohn's disease and colitis Crohn's disease Colitis Daughter No problems noted. Daughter No problems noted. Brother Arthritis severe Obesity Sister Diabetes Obesity Sister No problems noted. Sister No problems noted. Social History Smoking/Tobacco Use Status: Former Tobacco Use Smoking risk assessment performed?: Yes Alcohol Intake: never Drug use: Never Substance use type: does not use Caregiver/Support person: Yes Household members: children Number of Children: 2 Communication Needs: Hard of Hearing and Corrective Lenses Education Level: middle school Do you need help understanding health information?: Always current occupation: on disability Pets and animals: Yes (4 cats, 3 dogs, 1 bird, 6 hermit crabs) Pets and animals: cat(s), dog(s), bird(s) and other Details: hermit crabs Current gender identity: female What is your relationship status?: How often do you talk on the phone with friends or family?: once per week How often do you get together with friends or relatives?: three or more times per week Panel score (0-1 are the most socially isolated patients): 1 What type of physical activity do you participate in: none, sedentary lifestyle, wheelchair-bound and additional Details: needs a new wheelchair, cannot walk far, just a few steps Special pedro pablo needs: No Seatbelt use: always Working smoke detector in home: Yes Fire extinguisher in home: Yes Firearms in home: No Do you feel safe at home: Yes Do you feel safe in your relationship?: Yes Additional Social history: , with 2 children. 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 She is not currently working and is on disability. Has a history of tobacco, quit in 1992. Reports rare use of alcohol only. Lives with daughter Bhargavi in [place], who is her Arnold caregiver; her other daughter lives close by. Bedbound since pelvic fracture. Recent scans show progression of breast cancer. Exam Const General: ill appearing chronically and lethargic Orientation: oriented x3 HENMT Head: normal to inspection Ears: hearing grossly normal bilaterally and external ears normal General nose exam: external nose normal Face and sinus: normal facial exam Mouth: mucous membranes dry Teeth and gingiva: edentulous Eyes General: appearance normal, both eyes and all related structures Eyelids: eyelids normal Pupils: PERRL EOM: EOM intact bilaterally Neck Neck: normal visual inspection Lymphatic: no lymphadenopathy noted Chest Chest: normal inspection of the chest Resp Effort & Inspection: normal respiratory effort and able to speak in complete sentences Auscultation: clear to auscultation bilaterally Cardio Rate: regular rate Rhythm: regular rhythm GI Inspection: normal to inspection and obesity Palpation: soft, not firm, no guarding, no hepatosplenomegaly, no masses and nontender Auscultation: hypoactive bowel sounds Rectal Exam - female: heme positive stool Rectal exam heme positive - female: gross blood (maroon colored stool) Skin General skin exam: no rashes or lesions noted Neuro General: moves all extremities Speech: abnormal speech slurred (baseline) Extrem General: full ROM and other (significantly edematous legs, nonpitting, chronic) Psych Appearance: disheveled Mental Status: other (responses slowed by oriented x 3) Attitude: cooperative
--- NOTE | 2020-02-23 10:45 | RT.EKG_ITS ---
APPROVED REPORT Exam: Resting ECG Patient Location: E HR:97 bpm ECG Measurements Heart Rate 97 AXIS UT 147 P 58 QRSd 102 QRS 11 QT 372 T 19 QTc 474 Conclusion Sinus rhythm...normal P axis, V-rate 60- 99 Low voltage, precordial leads...precordial leads <1.0mV I have reviewed and interpreted ECG and agree with software generated interpretation.
--- NOTE | 2020-02-23 11:00 | DI.RAD_ITS ---
EXAM: XR PORTABLE CHEST AP CLINICAL HISTORY: sob, r/o acute disease TECHNIQUE: 2D digital imaging was performed. COMPARISON: CR XR PORTABLE CHEST AP from 01/03/2020 FINDINGS: MEDIASTINUM: Normal. HEART: Normal. PULMONARY VASCULATURE: Normal. LUNGS: There appears to be a right basilar infiltrate. This may represent atelectasis or pneumonia. PLEURAL SPACE: No pleural effusion or pneumothorax. BONE:Within normal limits for the patient's age. OTHER FINDINGS:The indwelling central venous catheter is stable. The tip is seen in the superior shamir a cava. IMPRESSION: Right basilar infiltrate which may represent atelectasis or pneumonia. DATA REPOSITORY: RADIATION DOSE DELIVERED:
[2020-02-23] MEDS: Dextrose 50%-Water 25 GM/50 ML SYR IVP (11:02)
[2020-02-23 11:03] LABS: Abs Immature Grans 1.42 10^3/uL (0.0-0.06); MCH 27.1 pg (27.0-33.0); MCHC 28.4 % (32.0-36.0); MCV 95.7 fL (80-95); MPV 11.8 fL (8.0-11.0); RDW 26.5 % (11.7-14.6); RDW-SD 70.2 fL; WBC 19.73 10^3/uL (4.4-10.8)
[2020-02-23 11:38] LABS: INR 1.3 (0.9-1.1); PTT Activated 24.5 sec (21.0-27.5); Prothrombin Time 12.8 sec (9.3-11.0)
[2020-02-23] MEDS: Normal Saline 250 ML IV (11:39)
[2020-02-23 11:41] LABS: ALT 89 U/L (14-59); AST 578 U/L (15-37); Albumin 1.8 g/dL (3.4-5.0); Alkaline Phosphatase 716 U/L (46-116); Anion Gap 10.3 mmol/L (3-11); BUN 37 mg/dL (7-18); Bilirubin, Total 0.7 mg/dL (0.2-1.0); CO2 26.7 mmol/L (21.0-32.0); CREATININE 1.55 mg/dL (0.55-1.02); Calcium 8.2 mg/dL (8.5-10.1); Chloride 108 mmol/L (98-107); Estimated GFR 34.11 (mL/min/1.73m2); Glucose 74 mg/dL (74-106); Magnesium 1.7 mg/dL (1.8-2.4); Potassium 3.7 mmol/L (3.5-5.1); Sodium 145 mmol/L (136-145); Total Protein 5.2 g/dL (6.4-8.2)
[2020-02-23 11:45] LABS: Troponin I 0.08 ng/mL (<0.06)
[2020-02-23 11:46] LABS: HGB 3.8 g/dL (11.2-15.7)
[2020-02-23 11:47] LABS: HCT 13.4 % (36.0-46.0)
[2020-02-23 11:48] LABS: Absolute Lymphocyte Count 3.35 10^3/uL (1.2-3.4); Absolute Monocyte Count 0.59 10^3/uL (0.1-0.8); Absolute Neutrophil Count 12.63 10^3/uL (1.2-6.7); Bands % 2; Nucleated RBC 22 %
[2020-02-23 11:50] LABS: Metamyelocytes % 2; Myelocytes % 5; Other Cells % 2; Promyelocytes % 5
[2020-02-23 11:51] LABS: Diff Comment Manual Differential
[2020-02-23 11:54] LABS: Anisocytosis 3+; Platelet Count 189 10^3/uL (130-400)
[2020-02-23 11:55] LABS: Hypochromasia 3+
[2020-02-23 11:56] LABS: Poikilocytes 2+; Polychromasia Present
[2020-02-23 12:28] LABS: Lactate 4.4 mmol/L (0.6-1.4)
[2020-02-23] MEDS: Normal Saline 500 ML IV (12:34)
[2020-02-23 12:36] LABS: Bilirubin Small (Negative); Blood Moderate (Negative); Clarity Cloudy (Clear); Glucose Negative (Negative); Ketones Negative (Negative); Leukocyte Esterase Moderate (Negative); Nitrite Positive (Negative); Specific Gravity 1.015 (1.005-1.025); Urobilinogen 0.2 EU/dL (Up TO 0.2); pH 5.5 (5-8)
[2020-02-23 12:54] LABS: WBC >50 HPF (0-5)
[2020-02-23 12:55] LABS: Bacteria Moderate HPF (Negative); Crystals Few Amorphous HPF (Negative); Epithelial Cells Few HPF (Negative); Mucus Negative (Negative)
[2020-02-23 12:56] LABS: C & S Indicated? Yes; Casts 0-2 Coarse Granular LPF (Negative)
[2020-02-23] MEDS: PIPERACILLIN/TAZO 3.375 GM in Normal Saline 50 ML IVPB ×2 (13:36→19:49)
[2020-02-23] MEDS: Normal Saline 1,000 ML 100 ML IV (13:38)
[2020-02-23 13:59] LABS: TSH (W/Ref FT4) 0.14 uIU/mL (0.36-3.74)
[2020-02-23] MEDS: Hydrocortisone SOD SUC. 100 MG VIAL IVP (14:19)
[2020-02-23] MEDS: VANCOMYCIN/WATER (PEG) 2 GM/400 ML BAG IV (14:21)
[2020-02-23 14:22] LABS: FREE T4 1.46 ng/dL (0.76-1.46)
--- NOTE | 2020-02-23 14:43 | HPE_ITS ---
Date of service: 02/23/20 Time of Service: 14:20 Assessment and Plan Assessment and plan (1) Anemia associated with acute blood loss: Status: Acute Assessment and plan: Transfusing 3 units pRBCS. Will monitor H/H. Admit to the ICU with IV protonix BID. Depending on patient's and family's decision, consider transfer [place] [facility] [place] vs home with palliative care/hospice/inpatient comfort measures. (2) Sepsis: Status: Acute Assessment and plan: Multifactorial, due to UTI, aspiration pneumonia given report of difficulty swallowing earlier today and appropriate location on CXR. Agree with zosyn and aggressive IVF. Await blood and urine C&S. (3) Aspiration pneumonia: Status: Acute Assessment and plan: Cover with zosyn NPO until mental status improves. (4) UTI (urinary tract infection): Status: Acute Assessment and plan: Most recent UTIs have all be due to proteus, which was sensitive to zosyn. Will continue. (5) Adrenal insufficiency: Status: Chronic Assessment and plan: Does appear acutely adrenally insufficient now. Provide stress dose steroids. (6) Hypoglycemia: Status: Acute Assessment and plan: Result of patient's adrenal insufficiency. For now, adding D5 to her fluids and treating with stress dose steroids. Hold home insulin at this time. (7) Toxic metabolic encephalopathy: Status: Acute Assessment and plan: In light of sepsis, adrenal insufficiency, anemia, pain medicaion clearance being affected by above. Monitor mental status as above conditions are getting addressed. (8) Acute kidney injury superimposed on chronic kidney disease: Status: Resolved Assessment and plan: IVF. (9) Stage IV breast cancer in female: Status: Chronic Assessment and plan: Consult palliative care to help discuss goals of care. Patient is very hospice appropriate, but patient's and family's expectations of what from cancer looks like were not being met at home. Candace's prognosis is poor. Aggressive measures at this point could be viewed as futile. Medical team and the patient/family need to get on the same page. (10) DVT prophylaxis: Status: Acute Assessment and plan: chemical dvt prophylaxis is contraindicated in seeting of profound anemia, likely due to GI source (11) Discharge planning issues: Status: Acute Assessment and plan: DNR/DNI; came off hospice. Admit to ICU. Consult palliative care. Total Critical Care Time 60 minutes. History of Present Illness History of Present Illness Chief Complaint: altered mental status, hypoglycvemia, shortness of breath Narrative: Ms Maynard is a 59 year old female with PMHx of Stage IV breast cancer, Chronic adrenal insufficiency, recurrent UTIs and C.Diff, who is coming off of home hospice today and presenting to [facility] ED with shortness of breath, hypoglycemia, altered mental status and difficulty swallowing. History is being largely obtained from my numerous conversations with the ED provider/ED notes, as Candace has difficulty providing history at this time. [facility] hospice expressed that they feel that the daughter has difficulty managing the patient on hospice at home. The patient was hypoglycemic en route to the ED. Her ED workup revealed H/H of 3.8/13.4, a leuocytosis of 19.73 with evidence of a UTI, a lactate of 4.4, blood glucose of 74 by chemistry, a troponin of 0.08. There is evidence of right basilar infiltrate on her CXR, c/w atelectasis or pneumonia. The patient was ordered 3 units of PRBCs as she and her daughter both consented to transfusion, though Candace cannot participate in the discussion fully. She was initiated on IV zosyn. Currently further direction of care is being discussed between daughter and Candace - Candace, who previously would not consent to transfer [place] [facility], said ye s to that question in my conversation with her, but is not able to have a full discussion about it. THe patient's DPOA, Bhargavi, feels that this is not what her mom would previously want and feels that her mom is not able to make that decision right now. Care management and palliative care are both consulted to help clarify further goals of care. Bhargavi expressed to the ED provider that IVF, antibiotics, steroids, and blood transfusions would be ok, though not a procedure such as an EGD. The patient is getting admitted to the ICU. Review of Systems Unobtainable due to mental status [facility] Medical History Acute confusion due to infection Acute pain due to trauma Acute UTI Adenoma of pituitary benign; renoved surgically on steroids and synthroid to replete Bacteremia Citrobacter C. difficile diarrhea Cancer related pain on hydromorphone pump Carpal tunnel syndrome Chronic adrenal insufficiency Chronic pain Chronic respiratory failure with hypoxia Chronic venous stasis dermatitis COPD (chronic obstructive pulmonary disease) On nocturnal oxygen - 2L prn Depression Diabetes mellitus Insulin dependent Discharge planning issues Diverticulosis DNI (do not intubate) DNR (do not resuscitate) Dyslipidemia E. coli bacteremia Encounter for hospice care discussion Fatigue Alex catheter in place Goals of care, counseling/discussion History of breast cancer metastatic, with lymphatic spread and bone mets Hyperlipidemia Hypopituitarism Hypothyroidism Influenza B Iron deficiency anemia Left lower lobe pneumonia Metastatic breast cancer Obstructive sleep apnea per [facility] records Palliative care patient Pneumonia POLST (Physician Orders for Life-Sustaining Treatment) done 03/26/19; DNR/DNI Positive blood cultures Pulmonary emboli Recurrent urinary tract infection Restless leg syndrome SOB (shortness of breath) Spinal stenosis Stage IV breast cancer in female Toxic metabolic encephalopathy Uncontrolled pain Unsteady gait Urinary incontinence UTI (urinary tract infection) UTI (urinary tract infection) UTI (urinary tract infection) Surgical History H/O bilateral mastectomy H/O colonoscopy with polypectomy H/O mastectomy bilateral History of carpal tunnel release of both wrists Port-A-Cath in place Status post transsphenoidal pituitary resection Family History Father , age 83 from complications of diabetes Prostate cancer Diabetes Mother , age 79 from complications of Crohn's disease and colitis Crohn's disease Colitis Daughter No problems noted. Daughter No problems noted. Brother Arthritis severe Obesity Sister Diabetes Obesity Sister No problems noted. Sister No problems noted. Social History Smoking/Tobacco Use Status: Former Tobacco Use Smoking risk assessment performed?: Yes Alcohol Intake: never Drug use: Never Substance use type: does not use Caregiver/Support person: Yes Household members: children Number of Children: 2 Communication Needs: Hard of Hearing and Corrective Lenses Education Level: middle school Do you need help understanding health information?: Always current occupation: on disability Pets and animals: Yes (4 cats, 3 dogs, 1 bird, 6 hermit crabs) Pets and animals: cat(s), dog(s), bird(s) and other Details: hermit crabs Current gender identity: female What is your relationship status?: How often do you talk on the phone with friends or family?: once per week How often do you get together with friends or relatives?: three or more times per week Panel score (0-1 are the most socially isolated patients): 1 What type of physical activity do you participate in: none, sedentary lifestyle, wheelchair-bound and additional Details: needs a new wheelchair, cannot walk far, just a few steps Special pedro pablo needs: No Seatbelt use: always Working smoke detector in home: Yes Fire extinguisher in home: Yes Firearms in home: No Do you feel safe at home: Yes Do you feel safe in your relationship?: Yes Additional Social history: , with 2 children. 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 She is not currently working and is on disability. Has a history of tobacco, quit in 1992. Reports rare use of alcohol only. Lives with daughter Bhargavi in [place], who is her Arnold caregiver; her other daughter lives close by. Bedbound since pelvic fracture. Recent scans show progression of breast cancer. Meds Home Medications and Allergies Home Medications Medication Instructions Recorded Confirmed Type Spiriva Respimat 1 puff INHALATION DAILY 04/03/17 02/08/20 History budesonide-formoterol [Symbicort] 2 puff INHALATION BID 04/03/17 02/08/20 History cyanocobalamin (vitamin B-12) 1,000 mcg PO DAILY 04/03/17 02/08/20 History [Vitamin B-12] folic acid 1 mg PO DAILY 04/03/17 02/08/20 History montelukast [Singulair] 10 mg PO DAILY 04/03/17 02/08/20 History Trulicity 1.5 mg SUBCUT QWEEK 05/06/18 02/08/20 History levothyroxine 150 mcg PO DAILY 05/06/18 02/08/20 History Glucagon (HCl) Emergency Kit 1 mg PRN PRN 07/25/19 02/08/20 History Narcan 1 spray INTRANASAL PRN PRN 07/25/19 02/08/20 History cranberry 450 mg PO DAILY 07/25/19 02/08/20 History ferrous sulfate 325 mg PO TID 07/25/19 02/09/20 History omeprazole 40 mg PO BID 07/25/19 02/09/20 History Lactobacillus acidophilus 1,000 mmu cells PO BID #30 cap 08/01/19 02/08/20 Rx denosumab 120 mg/1.7 mL (70 mg/mL) 120 mg SC Q4W #1.7 ml 10/19/19 02/09/20 Rx subcutaneous solution Afinitor 10 mg PO DAILY 11/03/19 02/08/20 History atorvastatin 40 mg PO HS 11/04/19 02/09/20 History pregabalin 200 mg PO TID 11/04/19 02/08/20 History tolterodine 4 mg PO DAILY 11/04/19 02/09/20 History Humulin R U-500 (Conc) Kwikpen See Rx Instructions .ROUTE .COMPLEX 12/15/19 02/09/20 History albuterol sulfate 1 - 2 puff INHALATION QID PRN 02/08/20 02/08/20 History albuterol sulfate 2.5 mg INHALATION Q4H PRN 02/08/20 02/08/20 History benzonatate 200 mg PO TID PRN 02/08/20 02/09/20 History epinephrine [EpiPen 2-Domingo] 0.3 mg SUBCUT PRN PRN 02/08/20 02/09/20 History exemestane 25 mg PO DAILY 02/08/20 02/08/20 History hydrocortisone 20 mg PO QAM 02/08/20 02/09/20 History loratadine 10 mg PO DAILY 02/08/20 02/08/20 History nystatin 1 applic TOPICAL BID 02/08/20 02/08/20 History nystatin 1 applic TOPICAL BID 02/08/20 02/09/20 History ondansetron 8 mg PO Q8H PRN 02/08/20 02/08/20 History ammonium lactate 1 applic TOPICAL BID 02/09/20 02/09/20 History fentanyl 50 mcg TRANSDERMAL Q72H 02/09/20 02/09/20 History ferrous sulfate 325 mg PO TID 02/09/20 02/09/20 History hydrocodone-acetaminophen 1 tab PO Q6H PRN 02/09/20 02/09/20 History hydrocortisone 5 mg PO QDAY 02/09/20 02/09/20 History psyllium 1 packet PO DAILY 02/09/20 02/09/20 History Allergies Allergy/AdvReac Type Severity Reaction Status Date / Time bee venom protein (honey bee) Allergy Unknown Unverified 02/23/20 10:48 adhesive tape AdvReac Mild Unverified 02/23/20 10:48 Latex, Natural Rubber AdvReac Mild Unverified 02/23/20 10:48 Exam Narrative Exam Narrative: General: Obese female who looks the sickest I have ever seen her, slow to respond, not talking in full sentences, moderately tachypneic Neurological: Lethargic, A&Ox2, slow to respond, no focal deficits Psychiatric: difficult to establish given mental status Skin: visible skin dry, intact HEENT: Atrauamtic, normocephalic, EOMI, dry MM, no lymphadenopathy, goiter or JVD Cardiovascular: RRR, tachycardic Lungs: Diminished breath sounds B Gastrointestinal: soft, nontender, nondistended Genitourinary: has a alex - not more than 50 cc in the bag - dark concentrated urine Extremities: BLEs with chronic venous stasis dermatitis, pedal edema Results Imaging Additional studies: CXR: Right basilar infiltrate which may represent atelectasis or pneumonia. Labs Result diagrams: 02/23/20 10:55 02/23/20 10:55 Labs: Laboratory Results - last 24 hr 02/23/20 02/23/20 02/23/20 10:55 10:55 10:55 WBC 19.73 H RBC 1.40 L Hgb 3.8 L* Hct 13.4 L* MCV 95.7 H MCH 27.1 MCHC 28.4 L RDW 26.5 H Plt Count 189 MPV 11.8 H Immature Gran % 0.0 Neutrophils % 62.0 Band Neutrophils % 2 Lymphocytes % 17.0 Monocytes % 3.0 Eosinophils % 1.0 Basophils % 1.0 Metamyelocytes % 2 Myelocytes % 5 Promyelocytes % 5 Other Cells % 2 Nucleated RBC % 22 Absolute Neutrophils 12.63 H Absolute Lymphocytes 3.35 Absolute Monocytes 0.59 Absolute Eosinophils 0.20 Absolute Basophils 0.20 RBC Morphology See below Polychromasia Present Hypochromasia 3+ Poikilocytosis 2+ Anisocytosis 3+ PT 12.8 H INR 1.3 H APTT 24.5 VBG Lactate Sodium 145 Potassium 3.7 Chloride 108 H Carbon Dioxide 26.7 Anion Gap 10.3 BUN 37 H Creatinine 1.55 H Estimated GFR/1.73 m2 34.11 Glucose 74 Calcium 8.2 L Magnesium 1.7 L Total Bilirubin 0.7 AST 578 H ALT 89 H Alkaline Phosphatase 716 H Troponin I 0.08 H* Total Protein 5.2 L Albumin 1.8 L Procalcitonin TSH Free T4 Urine Color Urine Clarity Urine pH Ur Specific [place] Urine Protein Urine Ketones Urine Blood Urine Nitrite Urine Bilirubin Urine Urobilinogen Ur Leukocyte Esterase Urine RBC Urine WBC Ur Epithelial Cells Urine Crystals Urine Bacteria Urine Casts Urine Mucus Urine Other Ur Culture Indicated? Urine Glucose Patient ABO/Rh Antibody Screen Crossmatch 02/23/20 02/23/20 02/23/20 12:11 12:19 12:19 WBC RBC Hgb Hct MCV MCH MCHC RDW Plt Count MPV Immature Gran % Neutrophils % Band Neutrophils % Lymphocytes % Monocytes % Eosinophils % Basophils % Metamyelocytes % Myelocytes % Promyelocytes % Other Cells % Nucleated RBC % Absolute Neutrophils Absolute Lymphocytes Absolute Monocytes Absolute Eosinophils Absolute Basophils RBC Morphology Polychromasia Hypochromasia Poikilocytosis Anisocytosis PT INR APTT VBG Lactate 4.4 H* Sodium Potassium Chloride Carbon Dioxide Anion Gap BUN Creatinine Estimated GFR/1.73 m2 Glucose Calcium Magnesium Total Bilirubin AST ALT Alkaline Phosphatase Troponin I Total Protein Albumin Procalcitonin 2.0 TSH Free T4 Urine Color Yellow Urine Clarity Cloudy Urine pH 5.5 Ur Specific [place] 1.015 Urine Protein 30 H Urine Ketones Negative Urine Blood Moderate H Urine Nitrite Positive H Urine Bilirubin Small H Urine Urobilinogen 0.2 Ur Leukocyte Esterase Moderate H Urine RBC 10-20 H Urine WBC >50 H Ur Epithelial Cells Few Urine Crystals Few amorphous Urine Bacteria Moderate Urine Casts 0-2 coarse granular Urine Mucus Negative Urine Other Ur Culture Indicated? Yes Urine Glucose Negative Patient ABO/Rh A Positive Antibody Screen Negative Crossmatch See Detail 02/23/20 12:35 WBC RBC Hgb Hct MCV MCH MCHC RDW Plt Count MPV Immature Gran % Neutrophils % Band Neutrophils % Lymphocytes % Monocytes % Eosinophils % Basophils % Metamyelocytes % Myelocytes % Promyelocytes % Other Cells % Nucleated RBC % Absolute Neutrophils Absolute Lymphocytes Absolute Monocytes Absolute Eosinophils Absolute Basophils RBC Morphology Polychromasia Hypochromasia Poikilocytosis Anisocytosis PT INR APTT VBG Lactate Sodium Potassium Chloride Carbon Dioxide Anion Gap BUN Creatinine Estimated GFR/1.73 m2 Glucose Calcium Magnesium Total Bilirubin AST ALT Alkaline Phosphatase Troponin I Total Protein Albumin Procalcitonin TSH 0.14 L Free T4 1.46 Urine Color Urine Clarity Urine pH Ur Specific [place] Urine Protein Urine Ketones Urine Blood Urine Nitrite Urine Bilirubin Urine Urobilinogen Ur Leukocyte Esterase Urine RBC Urine WBC Ur Epithelial Cells Urine Crystals Urine Bacteria Urine Casts Urine Mucus Urine Other Ur Culture Indicated? Urine Glucose Patient ABO/Rh Antibody Screen Crossmatch Last Vital Signs Temp 36.4 C L 02/23/20 13:42 Pulse 98 H 02/23/20 14:31 Resp 19 02/23/20 14:40 BP 113/29 L 02/23/20 14:31 Pulse Ox 100 02/23/20 14:40 COVID-19 Screening Have you, or household traveled for leisure in last 14 days?: No Had IN PERSON contact w/suspected or confirmed C-19 person: No
--- NOTE | 2020-02-23 15:25 | NUR.NOTE ---
Patient arrives with one [address] noted to left shoulder which was placed by daughter prior to arrival per EMS report Nursing Note:
[2020-02-23] MEDS: Pantoprazole 40 MG VIAL IVP (19:48)
[2020-02-23] MEDS: Hydrocortisone SOD SUC. 100 MG VIAL 50 MG IVP (19:48)
[2020-02-23] MEDS: Normal Saline Flush 10 ML SYR IVP ×2 (19:51→21:31)
[2020-02-23] MEDS: Insulin Aspart 300 UNITS/3 ML PEN SC (21:00)
[2020-02-23 21:29] LABS: HCT 22.9 % (36.0-46.0); HGB 7.2 g/dL (11.2-15.7)
[2020-02-23 21:31] LABS: Lactate 3.2 mmol/L (0.6-1.4)
[2020-02-23 21:54] LABS: Troponin I 0.08 ng/mL (<0.06)
[2020-02-23 22:36] LABS: COVID-19 RT-PCR UVMMC Result Negative (Negative)
[2020-02-24] VITALS (37 sets, daily range): BP systolic 100–123; BP diastolic 37–65; PULSE 103–117; RESP 15–25; TEMP 35.9–36.9; O2SAT 90–99
[2020-02-24] MEDS: Normal Saline Flush 10 ML SYR IVP ×5 (00:48→08:08)
[2020-02-24] MEDS: Hydrocortisone SOD SUC. 100 MG VIAL 50 MG IVP ×2 (01:41→08:07)
[2020-02-24] MEDS: PIPERACILLIN/TAZO 3.375 GM in Normal Saline 50 ML IVPB ×2 (01:44→08:42)
[2020-02-24 07:08] LABS: HCT 23.4 % (36.0-46.0); HGB 7.6 g/dL (11.2-15.7); MCH 29.1 pg (27.0-33.0); MCHC 32.5 % (32.0-36.0); MCV 89.7 fL (80-95); MPV 11.6 fL (8.0-11.0); RBC 2.61 10^6/uL (3.93-5.22); RDW 18.8 % (11.7-14.6); WBC 20.22 10^3/uL (4.4-10.8)
[2020-02-24 07:21] LABS: Lactate 2.9 mmol/L (0.6-1.4)
[2020-02-24 07:28] LABS: ALT 119 U/L (14-59); AST 892 U/L (15-37); Albumin 1.7 g/dL (3.4-5.0); Alkaline Phosphatase 692 U/L (46-116); Anion Gap 13.9 mmol/L (3-11); BUN 42 mg/dL (7-18); Bilirubin, Direct 0.53 mg/dL (0.00-0.20); CO2 23.1 mmol/L (21.0-32.0); CREATININE 1.55 mg/dL (0.55-1.02); Calcium 7.9 mg/dL (8.5-10.1); Chloride 107 mmol/L (98-107); Estimated GFR 34.11 (mL/min/1.73m2); Glucose 196 mg/dL (74-106); Magnesium 1.7 mg/dL (1.8-2.4); Potassium 4.2 mmol/L (3.5-5.1); Sodium 144 mmol/L (136-145); Total Protein 5.2 g/dL (6.4-8.2); Troponin I 0.06 ng/mL (<0.06)
[2020-02-24 07:33] LABS: Absolute Lymphocyte Count 5.26 10^3/uL (1.2-3.4); Absolute Monocyte Count 0.61 10^3/uL (0.1-0.8); Absolute Neutrophil Count 13.55 10^3/uL (1.2-6.7); Anisocytosis 3+; Bands % 1; Basophilic Stippling Present; Diff Comment Manual Differential; Metamyelocytes % 3; Nucleated RBC 22 %
[2020-02-24 07:34] LABS: Hypochromasia 1+; Macrocytosis 1+; Microcytosis 1+; Platelet Count 137 10^3/uL (130-400); Poikilocytes 1+; Polychromasia Present
[2020-02-24] MEDS: Pantoprazole 40 MG VIAL IVP (08:07)
[2020-02-24] MEDS: MAGNESIUM SULFATE 2 GM/50 ML BAG IVPB (08:11)
--- NOTE | 2020-02-24 08:15 | PGE_ITS ---
Date of Service Date of service: 02/24/20 Time of Service: 11:05 Assessment and Plan Assessment and plan (1) Anemia associated with acute blood loss: Status: Acute Assessment and plan: S/p 3 units pRBCS - H/H 7.6/23.4. Despite transfusion, antibiotic therapy, IVF, Candace is not making progress. Will abstain from further blood draws at this time. Per daughter's wishes, no EGD/transfer to [facility] [place]. Continue protonix BID and await palliative care meeting. (2) Sepsis: Status: Acute Assessment and plan: Multifactorial, due to UTI, aspiration pneumonia. Blood and urine C&S are pending. Continue empiric zosyn, IVF, stress dose steroids. Candace is not improving on this therapy, however. (3) Aspiration pneumonia: Status: Acute Assessment and plan: Continue zosyn Unable to take PO due to mental status. (4) UTI (urinary tract infection): Status: Acute Assessment and plan: Present on admission. Continue zosyn. Most recent UTIs have all be due to proteus. (5) Adrenal insufficiency: Status: Acute Assessment and plan: Acute on chronic. Continue stress dose steroids. BGs better. (6) Hypoglycemia: Status: Resolved Assessment and plan: D/c D5 in fluids. Continue stress dose steroids - due to adrenal insufficiency. (7) Toxic metabolic encephalopathy: Status: Acute Assessment and plan: In light of sepsis, adrenal insufficiency, anemia, pain medication clearance being affected by above. Fentanyl patch taken off. Will monitor if mental status improves with it off. Currently, mental status is worse than it was yesterday. (8) Acute kidney injury superimposed on chronic kidney disease: Status: Acute Assessment and plan: Cr unchanged despite IVF, blood transfusions, abx. Continue IVF. (9) Stage IV breast cancer in female: Status: Chronic Assessment and plan: I think Candace is dying. Comfort measures would be appropriate at this time as she looks restless. Await palliative care consult. (10) DVT prophylaxis: Status: Acute Assessment and plan: chemical dvt prophylaxis is contraindicated in see ting of profound anemia, likely due to GI source (11) Discharge planning issues: Status: Acute Assessment and plan: DNR/DNI; came off hospice. Keep in ICU. Await palliative care meeting - I think [facility] would be very appropriate. Total Critical Care Time 45 minutes. Subjective Subjective Interval history since last seen: Obtunded, but seem to responds to pain and opens eyes when turning. She is not following commands and is not verbal this morning. Evidently, her fentanyl patch was still on her until this morning. Incomprehensible last night when she did try to say something. 3L 97-98%. No dyspnea/tachypnea. Pitting edema BLEs and multiple skin lesions. Nursing requests wound care consult. BGs in 220. Palliative care consult expected any minute. Exam Narrative Exam Narrative: General: Obese female, obtunded, not answering questions or following commands, nonverbal. Not dyspneic/tachypneic (was yesterday). HEENT: EOMI, dry MM Cardiovascular: RRR Lungs: Diminished breath sounds B Gastrointestinal: soft, nontender, nondistended Genitourinary: has a alex Extremities: BLEs with chronic venous stasis dermatitis, +1 pedal edema Objective Last Vital Signs Temp 35.9 C L 02/24/20 03:45 Pulse 111 H 02/24/20 06:00 Resp 20 02/24/20 06:00 BP 110/54 L 02/24/20 06:00 Pulse Ox 97 02/24/20 06:00 Laboratory Results - last 24 hr 02/23/20 02/23/20 02/23/20 10:55 10:55 10:55 WBC 19.73 H RBC 1.40 L Hgb 3.8 L* Hct 13.4 L* MCV 95.7 H MCH 27.1 MCHC 28.4 L RDW 26.5 H Plt Count 189 MPV 11.8 H Immature Gran % 0.0 Neutrophils % 62.0 Band Neutrophils % 2 Lymphocytes % 17.0 Monocytes % 3.0 Eosinophils % 1.0 Basophils % 1.0 Metamyelocytes % 2 Myelocytes % 5 Promyelocytes % 5 Other Cells % 2 Nucleated RBC % 22 Absolute Neutrophils 12.63 H Absolute Lymphocytes 3.35 Absolute Monocytes 0.59 Absolute Eosinophils 0.20 Absolute Basophils 0.20 RBC Morphology See below Polychromasia Present Hypochromasia 3+ Poikilocytosis 2+ Basophilic Stippling Anisocytosis 3+ Microcytosis Macrocytosis PT 12.8 H INR 1.3 H APTT 24.5 VBG Lactate Sodium 145 Potassium 3.7 Chloride 108 H Carbon Dioxide 26.7 Anion Gap 10.3 BUN 37 H Creatinine 1.55 H Estimated GFR/1.73 m2 34.11 Glucose 74 Calcium 8.2 L Magnesium 1.7 L Total Bilirubin 0.7 Conjugated Bilirubin AST 578 H ALT 89 H Alkaline Phosphatase 716 H Troponin I 0.08 H* Total Protein 5.2 L Albumin 1.8 L Procalcitonin TSH Free T4 Urine Color Urine Clarity Urine pH Ur Specific [place] Urine Protein Urine Ketones Urine Blood Urine Nitrite Urine Bilirubin Urine Urobilinogen Ur Leukocyte Esterase Urine RBC Urine WBC Ur Epithelial Cells Urine Crystals Urine Bacteria Urine Casts Urine Mucus Urine Other Ur Culture Indicated? Urine Glucose SARS-CoV-2 (PCR) Nasopharyn COVID-19 PCR Ref Test Perform Site Patient ABO/Rh Antibody Screen Crossmatch 02/23/20 02/23/20 02/23/20 12:11 12:19 12:19 WBC RBC Hgb Hct MCV MCH MCHC RDW Plt Count MPV Immature Gran % Neutrophils % Band Neutrophils % Lymphocytes % Monocytes % Eosinophils % Basophils % Metamyelocytes % Myelocytes % Promyelocytes % Other Cells % Nucleated RBC % Absolute Neutrophils Absolute Lymphocytes Absolute Monocytes Absolute Eosinophils Absolute Basophils RBC Morphology Polychromasia Hypochromasia Poikilocytosis Basophilic Stippling Anisocytosis Microcytosis Macrocytosis PT INR APTT VBG Lactate 4.4 H* Sodium Potassium Chloride Carbon Dioxide Anion Gap BUN Creatinine Estimated GFR/1.73 m2 Glucose Calcium Magnesium Total Bilirubin Conjugated Bilirubin AST ALT Alkaline Phosphatase Troponin I Total Protein Albumin Procalcitonin 2.0 TSH Free T4 Urine Color Yellow Urine Clarity Cloudy Urine pH 5.5 Ur Specific [place] 1.015 Urine Protein 30 H Urine Ketones Negative Urine Blood Moderate H Urine Nitrite Positive H Urine Bilirubin Small H Urine Urobilinogen 0.2 Ur Leukocyte Esterase Moderate H Urine RBC 10-20 H Urine WBC >50 H Ur Epithelial Cells Few Urine Crystals Few amorphous Urine Bacteria Moderate Urine Casts 0-2 coarse granular Urine Mucus Negative Urine Other Ur Culture Indicated? Yes Urine Glucose Negative SARS-CoV-2 (PCR) Nasopharyn COVID-19 PCR Ref Test Perform Site Patient ABO/Rh A Positive Antibody Screen Negative Crossmatch See Detail 02/23/20 02/23/20 02/23/20 12:32 12:35 21:15 WBC RBC Hgb 7.2 L D Hct 22.9 L D MCV MCH MCHC RDW Plt Count MPV Immature Gran % Neutrophils % Band Neutrophils % Lymphocytes % Monocytes % Eosinophils % Basophils % Metamyelocytes % Myelocytes % Promyelocytes % Other Cells % Nucleated RBC % Absolute Neutrophils Absolute Lymphocytes Absolute Monocytes Absolute Eosinophils Absolute Basophils RBC Morphology Polychromasia Hypochromasia Poikilocytosis Basophilic Stippling Anisocytosis Microcytosis Macrocytosis PT INR APTT VBG Lactate Sodium Potassium Chloride Carbon Dioxide Anion Gap BUN Creatinine Estimated GFR/1.73 m2 Glucose Calcium Magnesium Total Bilirubin Conjugated Bilirubin AST ALT Alkaline Phosphatase Troponin I Total Protein Albumin Procalcitonin TSH 0.14 L Free T4 1.46 Urine Color Urine Clarity Urine pH Ur Specific [place] Urine Protein Urine Ketones Urine Blood Urine Nitrite Urine Bilirubin Urine Urobilinogen Ur Leukocyte Esterase Urine RBC Urine WBC Ur Epithelial Cells Urine Crystals Urine Bacteria Urine Casts Urine Mucus Urine Other Ur Culture Indicated? Urine Glucose SARS-CoV-2 (PCR) Negative Nasopharyn COVID-19 PCR Not Applicable Ref Test Perform Site [facility] lab Patient ABO/Rh Antibody Screen Crossmatch 02/23/20 02/23/20 02/24/20 21:15 21:15 05:40 WBC RBC Hgb Hct MCV MCH MCHC RDW Plt Count MPV Immature Gran % Neutrophils % Band Neutrophils % Lymphocytes % Monocytes % Eosinophils % Basophils % Metamyelocytes % Myelocytes % Promyelocytes % Other Cells % Nucleated RBC % Absolute Neutrophils Absolute Lymphocytes Absolute Monocytes Absolute Eosinophils Absolute Basophils RBC Morphology Polychromasia Hypochromasia Poikilocytosis Basophilic Stippling Anisocytosis Microcytosis Macrocytosis PT INR APTT VBG Lactate 3.2 H* Sodium 144 Potassium 4.2 Chloride 107 Carbon Dioxide 23.1 Anion Gap 13.9 H BUN 42 H Creatinine 1.55 H Estimated GFR/1.73 m2 34.11 Glucose 196 H D Calcium 7.9 L Magnesium 1.7 L Total Bilirubin 1.0 Conjugated Bilirubin 0.53 H AST 892 H ALT 119 H Alkaline Phosphatase 692 H Troponin I 0.08 H* 0.06 Total Protein 5.2 L Albumin 1.7 L Procalcitonin TSH Free T4 Urine Color Urine Clarity Urine pH Ur Specific [place] Urine Protein Urine Ketones Urine Blood Urine Nitrite Urine Bilirubin Urine Urobilinogen Ur Leukocyte Esterase Urine RBC Urine WBC Ur Epithelial Cells Urine Crystals Urine Bacteria Urine Casts Urine Mucus Urine Other Ur Culture Indicated? Urine Glucose SARS-CoV-2 (PCR) Nasopharyn COVID-19 PCR Ref Test Perform Site Patient ABO/Rh Antibody Screen Crossmatch 02/24/20 02/24/20 05:40 07:11 WBC 20.22 H RBC 2.61 L Hgb 7.6 L Hct 23.4 L MCV 89.7 D MCH 29.1 MCHC 32.5 RDW 18.8 H Plt Count 137 MPV 11.6 H Immature Gran % See Differential Neutrophils % 66.0 Band Neutrophils % 1 Lymphocytes % 26.0 Monocytes % 3.0 Eosinophils % 1.0 Basophils % 0.0 Metamyelocytes % 3 Myelocytes % Promyelocytes % Other Cells % Nucleated RBC % 22 Absolute Neutrophils 13.55 H Absolute Lymphocytes 5.26 H Absolute Monocytes 0.61 Absolute Eosinophils 0.20 Absolute Basophils 0.00 RBC Morphology See below Polychromasia Present Hypochromasia 1+ Poikilocytosis 1+ Basophilic Stippling Present Anisocytosis 3+ Microcytosis 1+ Macrocytosis 1+ PT INR APTT VBG Lactate 2.9 H* Sodium Potassium Chloride Carbon Dioxide Anion Gap BUN Creatinine Estimated GFR/1.73 m2 Glucose Calcium Magnesium Total Bilirubin Conjugated Bilirubin AST ALT Alkaline Phosphatase Troponin I Total Protein Albumin Procalcitonin TSH Free T4 Urine Color Urine Clarity Urine pH Ur Specific [place] Urine Protein Urine Ketones Urine Blood Urine Nitrite Urine Bilirubin Urine Urobilinogen Ur Leukocyte Esterase Urine RBC Urine WBC Ur Epithelial Cells Urine Crystals Urine Bacteria Urine Casts Urine Mucus Urine Other Ur Culture Indicated? Urine Glucose SARS-CoV-2 (PCR) Edith COVID-19 PCR Ref Test Perform Site Patient ABO/Rh Antibody Screen Crossmatch
[2020-02-24] MEDS: Insulin Aspart 300 UNITS/3 ML PEN SC ×2 (08:42→11:43)
[2020-02-24] MEDS: Normal Saline 1,000 ML 75 ML IV (08:50)
--- NOTE | 2020-02-24 12:16 | PCNE_ITS ---
Date of service: 02/24/20 Time of Service: 12:00 History of Present Illness History of Present Illness Chief Complaint: Unresponsive Narrative: Candace is a 59 year old female with metastatic breast cancer who is well known to [facility] and Palliative care. She was recently inpatient at [facility] and was discharged home on hospice. She presented back to the [facility] ED yesterday on 02/23/20 with SOB, hypoglycemia, altered mental status and difficulty s wallowing. She was noted to have a Hgb of 3.8 and sepsis due to UTI and likely aspiration PNA. She was given blood transfusions IV antibiotics. A palliative consult was placed to determine next steps. Candace was seen in the ICU, she was completely unresponsive. Her daughter/DPOA, Kiki was contacted via phone. We discussed Masoud present status. Kiki states she wants her mother to come home on hospice for end of life care. Comfort measures was offered at the hospital, however, Kiki's sister would not be able to come see her mom at the hospital due to COVID-19 visitation restrictions and this is important to them. This information was relayed to the hospitalist, Dr. Reno, who will place c omfort orders. [facility] contacted and agrees to admit Candace to hospice this afternoon. Care management to coordinate. Assessment and Plan Assessment and plan (1) Sepsis: Status: Acute (2) Hypoglycemia: Status: Resolved (3) UTI (urinary tract infection): Status: Acute (4) Aspiration pneumonia: Status: Acute (5) Anemia associated with acute blood loss: Status: Acute (6) Symptomatic anemia: Status: Acute (7) GI bleed: Status: Chronic (8) Stage IV breast cancer in female: Status: Chronic (9) Cancer related pain: Status: Chronic (10) POLST (Physician Orders for Life-Sustaining Treatment): Status: Acute (11) Palliative care patient: Status: Chronic (12) Goals of care, counseling/discussion: Status: Acute Assessment and plan: Candace appears to be actively dying. After talking with her daughter, Candace will be transported home via ambulance and admitted back on to hospice for end of life care. [facility] agrees to admit Candace this afternoon. Discussed with Dr. Reno, who will discharge the pateint. She will be discharged home on fentanyl patch 50 mcg and with liquid morphine and liquid lorazepam for PRN use. 90 minutes spent reviewing the chart, seeing the patient, discussing the case with family and medical providers and documentation. Review of Systems Unobtainable due to mental status [facility] Medical History Acute confusion due to infection Acute pain due to trauma Acute UTI Adenoma of pituitary benign; renoved surgically on steroids and synthroid to replete Bacteremia Citrobacter C. difficile diarrhea Cancer related pain on hydromorphone pump Carpal tunnel syndrome Chronic adrenal insufficiency Chronic pain Chronic respiratory failure with hypoxia Chronic venous stasis dermatitis COPD (chronic obstructive pulmonary disease) On nocturnal oxygen - 2L prn Depression Diabetes mellitus Insulin dependent Discharge planning issues Diverticulosis DNI (do not intubate) DNR (do not resuscitate) Dyslipidemia E. coli bacteremia Encounter for hospice care discussion Fatigue Mendoza catheter in place Goals of care, counseling/discussion History of breast cancer metastatic, with lymphatic spread and bone mets Hyperlipidemia Hypopituitarism Hypothyroidism Influenza B Iron deficiency anemia Left lower lobe pneumonia Metastatic breast cancer Obstructive sleep apnea per [facility] records Palliative care patient Pneumonia POLST (Physician Orders for Life-Sustaining Treatment) done 03/26/19; DNR/DNI Positive blood cultures Pulmonary emboli Recurrent urinary tract infection Restless leg syndrome SOB (shortness of breath) Spinal stenosis Stage IV breast cancer in female Toxic metabolic encephalopathy Uncontrolled pain Unsteady gait Urinary incontinence UTI (urinary tract infection) UTI (urinary tract infection) UTI (urinary tract infection) Surgical History H/O bilateral mastectomy H/O colonoscopy with polypectomy H/O mastectomy bilateral History of carpal tunnel release of both wrists Port-A-Cath in place Status post transsphenoidal pituitary resection Family History Father , age 83 from complications of diabetes Prostate cancer Diabetes Mother , age 79 from complications of Crohn's disease and colitis Crohn's disease Colitis Daughter No problems noted. Daughter No problems noted. Brother Arthritis severe Obesity Sister Diabetes Obesity Sister No problems noted. Sister No problems noted. Social History Smoking/Tobacco Use Status: Former Tobacco Use Smoking risk assessment performed?: Yes Alcohol Intake: never Drug use: Never Substance use type: does not use Caregiver/Support person: Yes Household members: children Number of Children: 2 Communication Needs: Hard of Hearing and Corrective Lenses Education Level: middle school Do you need help understanding health information?: Always current occupation: on disability Pets and animals: Yes (4 cats, 3 dogs, 1 bird, 6 hermit crabs) Pets and animals: cat(s), dog(s), bird(s) and other Details: hermit crabs Current gender identity: female What is your relationship status?: How often do you talk on the phone with friends or family?: once per week How often do you get together with friends or relatives?: three or more times per week Panel score (0-1 are the most socially isolated patients): 1 What type of physical activity do you participate in: none, sedentary lifestyle, wheelchair-bound and additional Details: needs a new wheelchair, cannot walk far, just a few steps Special pedro pablo needs: No Seatbelt use: always Working smoke detector in home: Yes Fire extinguisher in home: Yes Firearms in home: No Do you feel safe at home: Yes Do you feel safe in your relationship?: Yes Additional Social history: , with 2 children. 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 She is not currently working and is on disability. Has a history of tobacco, quit in 1992. Reports rare use of alcohol only. Lives with daughter Bhargavi in [place], who is her Arnold caregiver; her other daughter lives close by. Bedbound since pelvic fracture. Recent scans show progression of breast cancer. Exam Narrative Exam Narrative: General: laying in bed, eyes closed, mouth open, completely unresponsive. HEENT: mucous membranes moist Cardiovascular: heart sounds regular, tacycardic. Respiratory: respirations appear even and unlabored, lung sounds clear on limited anterior and lateral exam. GI: abdomen does not appear to be tender on palpation, nondistended. Extremities: unable to move extremities, +pitting edema and skin discoloration noted to BLEs. Results Last Vital Signs Temp 36.9 C 02/24/20 07:34 Pulse 108 H 02/24/20 11:30 Resp 19 02/24/20 11:30 BP 109/49 L 02/24/20 11:30 Pulse Ox 95 02/24/20 11:30 Labs Result diagrams: 02/24/20 05:40 02/24/20 05:40 Labs: Laboratory Results - last 24 hr 02/23/20 02/23/20 02/23/20 12:11 12:19 12:19 WBC RBC Hgb Hct MCV MCH MCHC RDW Plt Count MPV Immature Gran % Neutrophils % Band Neutrophils % Lymphocytes % Monocytes % Eosinophils % Basophils % Metamyelocytes % Nucleated RBC % Absolute Neutrophils Absolute Lymphocytes Absolute Monocytes Absolute Eosinophils Absolute Basophils RBC Morphology Polychromasia Hypochromasia Poikilocytosis Basophilic Stippling Anisocytosis Microcytosis Macrocytosis VBG Lactate 4.4 H* Sodium Potassium Chloride Carbon Dioxide Anion Gap BUN Creatinine Estimated GFR/1.73 m2 Glucose Calcium Magnesium Total Bilirubin Conjugated Bilirubin AST ALT Alkaline Phosphatase Troponin I Total Protein Albumin Procalcitonin 2.0 TSH Free T4 Urine Color Yellow Urine Clarity Cloudy Urine pH 5.5 Ur Specific [place] 1.015 Urine Protein 30 H Urine Ketones Negative Urine Blood Moderate H Urine Nitrite Positive H Urine Bilirubin Small H Urine Urobilinogen 0.2 Ur Leukocyte Esterase Moderate H Urine RBC 10-20 H Urine WBC >50 H Ur Epithelial Cells Few Urine Crystals Few amorphous Urine Bacteria Moderate Urine Casts 0-2 coarse granular Urine Mucus Negative Urine Other Ur Culture Indicated? Yes Urine Glucose Negative SARS-CoV-2 (PCR) Nasopharyn COVID-19 PCR Ref Test Perform Site Patient ABO/Rh A Positive Antibody Screen Negative Crossmatch See Detail 02/23/20 02/23/20 02/23/20 12:32 12:35 21:15 WBC RBC Hgb 7.2 L D Hct 22.9 L D MCV MCH MCHC RDW Plt Count MPV Immature Gran % Neutrophils % Band Neutrophils % Lymphocytes % Monocytes % Eosinophils % Basophils % Metamyelocytes % Nucleated RBC % Absolute Neutrophils Absolute Lymphocytes Absolute Monocytes Absolute Eosinophils Absolute Basophils RBC Morphology Polychromasia Hypochromasia Poikilocytosis Basophilic Stippling Anisocytosis Microcytosis Macrocytosis VBG Lactate Sodium Potassium Chloride Carbon Dioxide Anion Gap BUN Creatinine Estimated GFR/1.73 m2 Glucose Calcium Magnesium Total Bilirubin Conjugated Bilirubin AST ALT Alkaline Phosphatase Troponin I Total Protein Albumin Procalcitonin TSH 0.14 L Free T4 1.46 Urine Color Urine Clarity Urine pH Ur Specific [place] Urine Protein Urine Ketones Urine Blood Urine Nitrite Urine Bilirubin Urine Urobilinogen Ur Leukocyte Esterase Urine RBC Urine WBC Ur Epithelial Cells Urine Crystals Urine Bacteria Urine Casts Urine Mucus Urine Other Ur Culture Indicated? Urine Glucose SARS-CoV-2 (PCR) Negative Nasopharyn COVID-19 PCR Not Applicable Ref Test Perform Site [facility] lab Patient ABO/Rh Antibody Screen Crossmatch 02/23/20 02/23/20 02/24/20 21:15 21:15 05:40 WBC RBC Hgb Hct MCV MCH MCHC RDW Plt Count MPV Immature Gran % Neutrophils % Band Neutrophils % Lymphocytes % Monocytes % Eosinophils % Basophils % Metamyelocytes % Nucleated RBC % Absolute Neutrophils Absolute Lymphocytes Absolute Monocytes Absolute Eosinophils Absolute Basophils RBC Morphology Polychromasia Hypochromasia Poikilocytosis Basophilic Stippling Anisocytosis Microcytosis Macrocytosis VBG Lactate 3.2 H* Sodium 144 Potassium 4.2 Chloride 107 Carbon Dioxide 23.1 Anion Gap 13.9 H BUN 42 H Creatinine 1.55 H Estimated GFR/1.73 m2 34.11 Glucose 196 H D Calcium 7.9 L Magnesium 1.7 L Total Bilirubin 1.0 Conjugated Bilirubin 0.53 H AST 892 H ALT 119 H Alkaline Phosphatase 692 H Troponin I 0.08 H* 0.06 Total Protein 5.2 L Albumin 1.7 L Procalcitonin TSH Free T4 Urine Color Urine Clarity Urine pH Ur Specific [place] Urine Protein Urine Ketones Urine Blood Urine Nitrite Urine Bilirubin Urine Urobilinogen Ur Leukocyte Esterase Urine RBC Urine WBC Ur Epithelial Cells Urine Crystals Urine Bacteria Urine Casts Urine Mucus Urine Other Ur Culture Indicated? Urine Glucose SARS-CoV-2 (PCR) Nasopharyn COVID-19 PCR Ref Test Perform Site Patient ABO/Rh Antibody Screen Crossmatch 02/24/20 02/24/20 05:40 07:11 WBC 20.22 H RBC 2.61 L Hgb 7.6 L Hct 23.4 L MCV 89.7 D MCH 29.1 MCHC 32.5 RDW 18.8 H Plt Count 137 MPV 11.6 H Immature Gran % See Differential Neutrophils % 66.0 Band Neutrophils % 1 Lymphocytes % 26.0 Monocytes % 3.0 Eosinophils % 1.0 Basophils % 0.0 Metamyelocytes % 3 Nucleated RBC % 22 Absolute Neutrophils 13.55 H Absolute Lymphocytes 5.26 H Absolute Monocytes 0.61 Absolute Eosinophils 0.20 Absolute Basophils 0.00 RBC Morphology See below Polychromasia Present Hypochromasia 1+ Poikilocytosis 1+ Basophilic Stippling Present Anisocytosis 3+ Microcytosis 1+ Macrocytosis 1+ VBG Lactate 2.9 H* Sodium Potassium Chloride Carbon Dioxide Anion Gap BUN Creatinine Estimated GFR/1.73 m2 Glucose Calcium Magnesium Total Bilirubin Conjugated Bilirubin AST ALT Alkaline Phosphatase Troponin I Total Protein Albumin Procalcitonin TSH Free T4 Urine Color Urine Clarity Urine pH Ur Specific [place] Urine Protein Urine Ketones Urine Blood Urine Nitrite Urine Bilirubin Urine Urobilinogen Ur Leukocyte Esterase Urine RBC Urine WBC Ur Epithelial Cells Urine Crystals Urine Bacteria Urine Casts Urine Mucus Urine Other Ur Culture Indicated? Urine Glucose SARS-CoV-2 (PCR) Nasopharyn COVID-19 PCR Ref Test Perform Site Patient ABO/Rh Antibody Screen Crossmatch
--- NOTE | 2020-02-24 12:58 | DSE_ITS ---
Date of service: 02/24/20 Time of Service: 12:58 DS: Diagnosis Discharge Diagnosis (1) Anemia associated with acute blood loss: Status: Acute (2) Sepsis: Status: Acute (3) Aspiration pneumonia: Status: Acute (4) UTI (urinary tract infection): Status: Acute (5) Toxic metabolic encephalopathy: Status: Acute (6) Adrenal insufficiency: Status: Acute (7) Hypoglycemia: Status: Resolved (8) Acute kidney injury superimposed on chronic kidney disease: Status: Acute (9) Stage IV breast cancer in female: Status: Chronic (10) Transaminitis: Status: Acute (11) Hypomagnesemia: Status: Acute (12) COVID-19 ruled out by laboratory testing: Status: Ruled-out Discharge Plan Disposition Patient Disposition: HOME W/HOME HEALTH SERVICE Condition: Poor Discharge Details Reason For Visit: SEPSIS DUE TO UTI, SEVERE SYMPTOMATIC ANEMIA, ADRE Admit Date/Time: 02/23/20 14:35 Admit Provider: Sheyla Reno Attending Provider: Sheyla Reno Primary Care Provider: ANNA TORO Hospital Course Hospital Course: Ms Maynard is a 59 year old female with PMHx of stage IV breast cancer, recurrent UTIs, chronic adrenal insufficiency, NIDDM2, chronic pain, who was a patient in [facility] ICU under the hospitalist service from 02/23/2020 until 02/24/2020 after coming off hospice and presenting to [facility] ED with severe symptomatic anemia with Hgb of 3.8, as well as evidence of sepsis due to UTI, adrenal insufficiency with hypoglycemia, and toxic metabolic encephalopathy. Candace remained DNR/DNI but was admitted to the ICU. She received 3 units of PRBCs, empiric antibiotics, stress dose steroids, and IVF. Despite this, Candace did not improve and became even more lethargic/obtunded. Palliative care consult was obtained, and the family did verbalize that they would like Candace home and readmitted to hospice. She is not verbal or following commands. She had a fentanyl patch put back her to ensure that she is comfortable. Coordination of care and completion of discharge summary on day of discharge took 45 minutes. Home Meds and New Rx's Prescriptions: New morphine concentrate 100 mg/5 mL (20 mg/mL) solution 5 - 20 mg PO Q1H PRN MDD hospice PRNQty: 30 RF: 0 lorazepam 2 mg/mL concentrate 1 mg PO Q4H PRN MDD hospice PRNQty: 30 RF: 0 fentanyl 50 mcg/hr patch 72 hour 1 patch transdermal Q72H MDD hospice Qty: 5 RF: 0 No Action Xgeva 120 mg/1.7 mL (70 mg/mL) solution 120 mg SC Q4W Qty: 1.7 RF: 0 Humulin R U-500 (Conc) Kwikpen 500 unit/mL (3 mL) insulin pen See Rx Instructions .ROUTE .COMPLEX RF: 0 montelukast [Singulair] 10 MG tablet 10 mg PO DAILY RF: 0 cyanocobalamin (vitamin B-12) [Vitamin B-12] 1,000 MCG tablet 1,000 mcg PO DAILY RF: 0 folic acid 1 MG tablet 1 mg PO DAILY RF: 0 Spiriva Respimat 4 GM mist 1 puff Inhalation DAILY RF: 0 budesonide-formoterol [Symbicort] 10.2 GM HFA aerosol inhaler 2 puff Inhalation BID RF: 0 levothyroxine 150 mcg Tablet 150 mcg PO DAILY RF: 0 Trulicity 1.5 mg/0.5 mL Pen Injector 1.5 mg SUBCUT QWEEK RF: 0 Afinitor 10 mg tablet 10 mg PO DAILY RF: 0 pregabalin 200 mg capsule 200 mg PO TID RF: 0 tolterodine 4 mg capsule,extended release 24hr 4 mg PO DAILY RF: 0 fulvestrant 250 mg/5 mL Syringe 250 mg IM Q14D RF: 0 omeprazole 40 mg Capsule,Delayed Release(Dr/Ec) 40 mg PO BID RF: 0 ferrous sulfate 325 mg (65 mg iron) Tablet 325 mg PO TID RF: 0 cranberry 450 mg Tablet 450 mg PO DAILY RF: 0 Narcan 4 mg/actuation [place],Non-Aerosol 1 spray INTRANASAL PRN PRNRF: 0 Glucagon (HCl) Emergency Kit 1 mg Recon Soln 1 mg subcut PRN PRNRF: 0 Lactobacillus acidophilus Capsule 1,000 mmu cells PO BID Qty: 30 RF: 0 exemestane 25 mg Tablet 25 mg PO DAILY RF: 0 albuterol sulfate 2.5 mg /3 mL (0.083 %) Solution For Nebulization 2.5 mg inhalation Q4H PRNRF: 0 ondansetron 8 mg Tablet,Disintegrating 8 mg PO Q8H PRNRF: 0 benzonatate 100 mg Capsule 200 mg PO TID PRN (Reason: Cough) RF: 0 epinephrine [EpiPen 2-Domingo] 0.3 mg/0.3 mL Auto-Injector 0.3 mg subcut PRN PRNRF: 0 albuterol sulfate 90 mcg/actuation Hfa Aerosol Inhaler 1 - 2 puff INHALATION QID PRNRF: 0 hydrocortisone 5 mg tablet 20 mg PO QAM RF: 0 fentanyl 50 mcg/hr patch 72 hour 50 mcg transdermal Q72H RF: 0 hydrocortisone 5 mg tablet 5 mg PO QDAY RF: 0 ammonium lactate 12 % Lotion 1 applic TOPICAL BID RF: 0 hydrocodone-acetaminophen 5-325 mg tablet 2 tab PO TID PRNRF: 0 ferrous sulfate 325 mg (65 mg iron) tablet,delayed release (DR/EC) 325 mg PO TID RF: 0 Discharge Instructions Activity:: bedrest, turn Q2H Equipment/Supplies:: No Equipment Needed Diet:: NPO Discharge Orders Discharge Orders: Discharge Order (Routine); Ordered 02/24/20 Ordered By: Sheyla Reno DS: Summary Status at Discharge Functional status at discharge: bed bound Overall status at discharge: patient is not back to baseline Mental Status: other Speech and Movement: other Mood: other Affect: other Exam Narrative Exam Narrative: General: Obese female, obtunded, not answering questions or following commands, nonverbal. Not dyspneic/tachypneic (was ). HEENT: EOMI, dry MM Cardiovascular: RRR Lungs: Diminished breath sounds B Gastrointestinal: soft, nontender, nondistended Genitourinary: has a alex Extremities: BLEs with chronic venous stasis dermatitis, +1 pedal edema Psych Mental Status: other Speech and Movement: other Mood: other Affect: other DS: Data Vitals/I&O Vitals and I&O: Vital Signs Temperature 36.9 C 02/24/20 07:34 Temperature Source Temporal Artery Scan 02/24/20 07:34 Pulse 108 H 02/24/20 11:30 Pulse 109 H 02/24/20 11:30 Respiratory Rate 19 02/24/20 11:30 Respiratory Effort 02/24/20 07:34 Respiratory Depth Normal 02/24/20 07:34 Respiratory Pattern Normal 02/24/20 07:34 Blood Pressure 109/49 L 02/24/20 11:30 Blood Pressure Mean 62 02/24/20 11:30 Blood Pressure Position Left Lateral 02/24/20 07:34 Pulse Oximetry 95 02/24/20 11:30 Oxygen Delivery Method Nasal Cannula 02/24/20 07:34 Oxygen Flow Rate 3 02/24/20 07:34 Pain Level 0 02/24/20 03:45 Intake & Output 02/23/20 02/24/20 02/24/20 23:59 11:59 23:59 Intake Total 1771.667 / 1771.667 530 / 530 Output Total 475 / 475 350 / 350 Balance 1296.667 / 1296.667 180 / 180 Weight 131.3 kg 133.5 kg Intake: IV 961.667 / 961.667 130 / 130 Blood Product 750 / 750 350 / 350 Rbc Leuko Reduced Unit 420 / 420 [id number] Rbc Leuko Reduced Unit 330 / 330 [id number] Rbc Leuko Reduced Unit 350 / 350 [id number] Other 60 / 60 50 / 50 Rbc Leuko Reduced Unit 60 / 60 [id number] Rbc Leuko Reduced Unit 50 / 50 [id number] Output: Urine 475 / 475 350 / 350 Other: Urine Color Light Giselle Light Giselle Urine Appearance Clear Comment Alex in place Bathing provided by [place] ANSARI, Lili ANSARI and Sheng Uribe RN Data Completed and Pending Completed studies during hospitalization [Text1]: CXR: Right basilar infiltrate which may represent atelectasis or pneumonia. Labs on day of discharge: Labs from last 24 hours 02/24/20 02/24/20 02/24/20 07:11 05:40 05:40 WBC 20.22 H RBC 2.61 L Hgb 7.6 L Hct 23.4 L MCV 89.7 D MCH 29.1 MCHC 32.5 RDW 18.8 H Plt Count 137 MPV 11.6 H Immature Gran % See Differential Neutrophils % 66.0 Band Neutrophils % 1 Lymphocytes % 26.0 Monocytes % 3.0 Eosinophils % 1.0 Basophils % 0.0 Metamyelocytes % 3 Nucleated RBC % 22 Absolute Neutrophils 13.55 H Absolute Lymphocytes 5.26 H Absolute Monocytes 0.61 Absolute Eosinophils 0.20 Absolute Basophils 0.00 RBC Morphology See below Polychromasia Present Hypochromasia 1+ Poikilocytosis 1+ Basophilic Stippling Present Anisocytosis 3+ Microcytosis 1+ Macrocytosis 1+ VBG Lactate 2.9 H* Sodium 144 Potassium 4.2 Chloride 107 Carbon Dioxide 23.1 Anion Gap 13.9 H BUN 42 H Creatinine 1.55 H Estimated GFR/1.73 m2 34.11 Glucose 196 H D Calcium 7.9 L Magnesium 1.7 L Total Bilirubin 1.0 Conjugated Bilirubin 0.53 H AST 892 H ALT 119 H Alkaline Phosphatase 692 H Troponin I 0.06 Total Protein 5.2 L Albumin 1.7 L Procalcitonin TSH Free T4 SARS-CoV-2 (PCR) [facility] COVID-19 PCR Ref Test Perform Site Patient ABO/Rh Antibody Screen Crossmatch 02/23/20 02/23/20 02/23/20 21:15 21:15 21:15 WBC RBC Hgb 7.2 L D Hct 22.9 L D MCV MCH MCHC RDW Plt Count MPV Immature Gran % Neutrophils % Band Neutrophils % Lymphocytes % Monocytes % Eosinophils % Basophils % Metamyelocytes % Nucleated RBC % Absolute Neutrophils Absolute Lymphocytes Absolute Monocytes Absolute Eosinophils Absolute Basophils RBC Morphology Polychromasia Hypochromasia Poikilocytosis Basophilic Stippling Anisocytosis Microcytosis Macrocytosis VBG Lactate 3.2 H* Sodium Potassium Chloride Carbon Dioxide Anion Gap BUN Creatinine Estimated GFR/1.73 m2 Glucose Calcium Magnesium Total Bilirubin Conjugated Bilirubin AST ALT Alkaline Phosphatase Troponin I 0.08 H* Total Protein Albumin Procalcitonin TSH Free T4 [facility] ([facility] Ref Test Perform Site Patient ABO/Rh Antibody Screen Crossmatch 02/23/20 02/23/20 02/23/20 12:35 12:32 12:19 WBC RBC Hgb Hct MCV MCH MCHC RDW Plt Count MPV Immature Gran % Neutrophils % Band Neutrophils % Lymphocytes % Monocytes % Eosinophils % Basophils % Metamyelocytes % Nucleated RBC % Absolute Neutrophils Absolute Lymphocytes Absolute Monocytes Absolute Eosinophils Absolute Basophils RBC Morphology Polychromasia Hypochromasia Poikilocytosis Basophilic Stippling Anisocytosis Microcytosis Macrocytosis VBG Lactate Sodium Potassium Chloride Carbon Dioxide Anion Gap BUN Creatinine Estimated GFR/1.73 m2 Glucose Calcium Magnesium Total Bilirubin Conjugated Bilirubin AST ALT Alkaline Phosphatase Troponin I Total Protein Albumin Procalcitonin 2.0 TSH 0.14 L Free T4 1.46 SARS-CoV-2 (PCR) Negative [facility] COVID-19 PCR Not Applicable Ref Test Perform Site [facility] lab Patient ABO/Rh Antibody Screen Crossmatch 02/23/20 12:19 WBC RBC Hgb Hct MCV MCH MCHC RDW Plt Count MPV Immature Gran % Neutrophils % Band Neutrophils % Lymphocytes % Monocytes % Eosinophils % Basophils % Metamyelocytes % Nucleated RBC % Absolute Neutrophils Absolute Lymphocytes Absolute Monocytes Absolute Eosinophils Absolute Basophils RBC Morphology Polychromasia Hypochromasia Poikilocytosis Basophilic Stippling Anisocytosis Microcytosis Macrocytosis VBG Lactate Sodium Potassium Chloride Carbon Dioxide Anion Gap BUN Creatinine Estimated GFR/1.73 m2 Glucose Calcium Magnesium Total Bilirubin Conjugated Bilirubin AST ALT Alkaline Phosphatase Troponin I Total Protein Albumin Procalcitonin TSH Free T4 SARS-CoV-2 (PCR) [facility] COVID-19 PCR Ref Test Perform Site Patient ABO/Rh A Positive Antibody Screen Negative Crossmatch See Detail 02/23/20 13:25 Blood Blood Culture - Pending 02/23/20 13:15 Blood Blood Culture - Pending 02/23/20 12:11 Urine - Clean Catch Urine Culture - Pending Preliminary micro results at discharge 02/23/20 13:25 Blood Culture - Pending Blood 02/23/20 13:15 Blood Culture - Pending Blood 02/23/20 12:11 Urine Culture - Pending Urine - Clean Catch [facility] Medical History Acute confusion due to infection Acute pain due to trauma Acute UTI Adenoma of pituitary benign; renoved surgically on steroids and synthroid to replete Bacteremia Citrobacter C. difficile diarrhea Cancer related pain on hydromorphone pump Carpal tunnel syndrome Chronic adrenal insufficiency Chronic pain Chronic respiratory failure with hypoxia Chronic venous stasis dermatitis COPD (chronic obstructive pulmonary disease) On nocturnal oxygen - 2L prn Depression Diabetes mellitus Insulin dependent Discharge planning issues Diverticulosis DNI (do not intubate) DNR (do not resuscitate) Dyslipidemia E. coli bacteremia Encounter for hospice care discussion Fatigue Alex catheter in place Goals of care, counseling/discussion History of breast cancer metastatic, with lymphatic spread and bone mets Hyperlipidemia Hypopituitarism Hypothyroidism Influenza B Iron deficiency anemia Left lower lobe pneumonia Metastatic breast cancer Obstructive sleep apnea per [facility] records Palliative care patient Pneumonia POLST (Physician Orders for Life-Sustaining Treatment) done 03/26/19; DNR/DNI Positive blood cultures Pulmonary emboli Recurrent urinary tract infection Restless leg syndrome SOB (shortness of breath) Spinal stenosis Stage IV breast cancer in female Toxic metabolic encephalopathy Uncontrolled pain Unsteady gait Urinary incontinence UTI (urinary tract infection) UTI (urinary tract infection) UTI (urinary tract infection) Surgical History H/O bilateral mastectomy H/O colonoscopy with polypectomy H/O mastectomy bilateral History of carpal tunnel release of both wrists Port-A-Cath in place Status post transsphenoidal pituitary resection Family History Father , age 83 from complications of diabetes Prostate cancer Diabetes Mother , age 79 from complications of Crohn's disease and colitis Crohn's disease Colitis Daughter No problems noted. Daughter No problems noted. Brother Arthritis severe Obesity Sister Diabetes Obesity Sister No problems noted. Sister No problems noted. Social History Smoking/Tobacco Use Status: Former Tobacco Use Smoking risk assessment performed?: Yes Alcohol Intake: never Drug use: Never Substance use type: does not use Caregiver/Support person: Yes Household members: children Number of Children: 2 Communication Needs: Hard of Hearing and Corrective Lenses Education Level: middle school Do you need help understanding health information?: Always current occupation: on disability Pets and animals: Yes (4 cats, 3 dogs, 1 bird, 6 hermit crabs) Pets and animals: cat(s), dog(s), bird(s) and other Details: hermit crabs Current gender identity: female What is your relationship status?: How often do you talk on the phone with friends or family?: once per week How often do you get together with friends or relatives?: three or more times per week Panel score (0-1 are the most socially isolated patients): 1 What type of physical activity do you participate in: none, sedentary lifestyle, wheelchair-bound and additional Details: needs a new wheelchair, cannot walk far, just a few steps Special pedro pablo needs: No Seatbelt use: always Working smoke detector in home: Yes Fire extinguisher in home: Yes Firearms in home: No Do you feel safe at home: Yes Do you feel safe in your relationship?: Yes Additional Social history: , with 2 children. 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 She is not currently working and is on disability. Has a history of tobacco, quit in 1992. Reports rare use of alcohol only. Lives with daughter Bhargavi in [place], who is her Arnold caregiver; her other daughter lives close by. Bedbound since pelvic fracture. Recent scans show progression of breast cancer.
--- NOTE | 2020-02-24 13:58 | PDOC.CMDIS ---
- If Service Date Differs Date of service: 02/24/20 Time of Service: 14:11 LACE Index Scoring Tool - Questions: Length of Stay (in days): 2 Acuity (Admit via E.D.?): Yes Comorbidities: Diabetes w/o Complication, Congestive Heart Failure, Chronic Pulmonary Disease, Liver or Renal Disease, Metastatic Solid Tumor E.D. Visits: 22 - Answers: Total Score: 14 Risk of Readmission: High Risk Care Management Discharge Reason for Hospitalization: Sepsis due to UTI, severe symptomatic anemia Discharge Plan: Candace presented to the ED with severe anemia, GI bleed, shortness of breath and hypoglycemia. She had previously been admitted to Hospice care, but Hospice was revoked when family chose to send her to [facility]. She was admitted overnight, and became unresponsive. Palliative Care was consulted, and had a meeting with the hospitalist MD and Kiki, Candace's daughter. Candace transitioned to [facility], and she appeared to be actively passing. With the family's wish for her to be home, she was discharged back to Hospice care. coordinated ambulance transport home by [facility]. She will be admitted to Hospice upon her arrival. Patient/Family Education Needs: Review discussion of expectations for hospice care, discussion of goals of care. Services Needed at Discharge: Home Health Care Services ([facility]), Transportation ([facility])
[2020-02-24] MEDS: Scopolamine 1 MG/3 DAYS PATCH TD (14:04)
[2020-02-24] MEDS: fentaNYL 50 MCG PATCH TD (14:05)
--- NOTE | 2020-02-24 14:10 | WOUNDCONS_ITS ---
- If Service Date Differs Date of service: 02/24/20 Time of Service: 13:10 Wound Initial Evaluation Narrative: Called in to see pt for numerous wounds. Pt made [employer] prior to this nurses arrival, per MD to see pt for comfort based wound care recommendations. Pt has mepilex on sacrum and heel protectors on at time of assessment. Right lower extremity with weeping noted, no obvious open wound to visual inspection, pt grimacing with movement of limb so leg cleansed and positioned for comfort. Deferrred assessment of sacrum d/t pt discomfort at this time since dressing in place. Right lateral ankle wound cleansed with ns, pat dry measures 0.8 cm round and 0.2 cm deep. Mepilex applied. Per prior nursing assessment, interglueal fold open area meaures6 cn x 1 cm. Underneath pannus on right is open area measuring approximately 2.5 cm x 1 cm x 0.1 cm. L pannus has an approximately 1 cm x 0.1 cm x 0.1 cm open area. Cream and interdry applied. Pt premedicated prior to asssessment but assessment limited by pt tolerance. I do not recommend a nutrition consult at this time. - Wound right pannus Wound Type: Full Thickness Wound General Appearance: Unapproximated Wound Bed Greatest Portion: Red (Granulation) Wound Bed Lesser Portion: Red (Granulation) Wound Drainage Amount: Minimal Wound Drainage Description: Serous left pannus Wound Type: Full Thickness Wound General Appearance: Unapproximated Wound Bed Greatest Portion: Red (Granulation) Wound Drainage Amount: Minimal Wound Drainage Description: Serous right lateral ankle Wound Type: Full Thickness Wound General Appearance: Unapproximated Wound Bed Greatest Portion: Pale [place] Wound Drainage Amount: Minimal Wound Drainage Description: Serous gluteal fold Wound Type: Full Thickness Wound General Appearance: Unapproximated Wound Bed Greatest Portion: Dusky Red - Pain Pain Level: 8 (with movement) Pain Scale Used: Lopez-Baez Faces - Recomendation Recomendation:: Cleanse gluteal fold wound with saline, pat dry, apply mepilex with border. Change q 5 days and PRN. Left and right pannus wounds- cleanse with ns, apply barrier cream and interdry daily and PRN. Right lateral ankle, cleanse with ns, apply mepilex with border. Change q 5 days and PRN.
--- NOTE | 2020-02-24 14:38 | NUR.NOTE ---
Nursing Note: 02/24/20 1400- Spoke with Dr. Reno regarding de-accessing port on right chest. Relayed that the patient bled more than usual with removal of peripheral IV on left hand. Asked if nursing should use heparin to de-access port. stated that we should leave port accessed for transport home.
--- NOTE | 2020-02-24 15:25 | CHAPLAIN ---
Candace was admitted yesterday to the ICU. She is well known to hospital staff because of multiple admissions. The last time Candace was discharged, a couple of weeks ago, she went home and was admitted to hospice through the [facility]. Candace's daughter Kiki is here caregiver. Kiki requested that Candace be discharged from hospice and transferred here for treatment, for what Kiki thought might be a UTI. She asked that Candace be treated with antibiotics, an infusion, whatever was needed. Yesterday in the ED Candace provided one word answers, but since that time has not been responsive to any familiar voices. Palliative care consult was requested. Medical staff believed that Candace was actively dying and would not survive this admission. In conversation with Kiki a decision was made to transfer Candace home. She was transported about 2 p.m.
== END 2020-02-24 14:20 | disposition home health service (06) | DRG 811 ==
LOC: ER 15:03 → ICU 15:50
PROVIDERS: Admitting Provider Internal Medicine; Emergency Provider Physician Assistant; PCP Nurse Practitioner Family; Visit Provider Internal Medicine
DX: D62 Acute posthemorrhagic anemia (principal); A41.9 Sepsis, unspecified organism; J69.0 Pneumonitis due to inhalation of food and vomit; G92 Toxic encephalopathy; N39.0 Urinary tract infection, site not specified; E27.40 Unspecified adrenocortical insufficiency; N17.9 Acute kidney failure, unspecified; J96.11 Chronic respiratory failure with hypoxia; C79.51 Secondary malignant neoplasm of bone; C77.9 Secondary and unspecified malignant neoplasm of lymph node, unspecified; E16.1 Other hypoglycemia; Z79.4 Long term (current) use of insulin; N18.9 Chronic kidney disease, unspecified; Z66 Do not resuscitate; E11.649 Type 2 diabetes mellitus with hypoglycemia without coma; E11.22 Type 2 diabetes mellitus with diabetic chronic kidney disease; G89.3 Neoplasm related pain (acute) (chronic); I87.8 Other specified disorders of veins; J44.9 Chronic obstructive pulmonary disease, unspecified; Z99.81 Dependence on supplemental oxygen; F32.9 Major depressive disorder, single episode, unspecified; E78.5 Hyperlipidemia, unspecified; Z85.3 Personal history of malignant neoplasm of breast; E89.3 Postprocedural hypopituitarism; E03.9 Hypothyroidism, unspecified; G47.33 Obstructive sleep apnea (adult) (pediatric); Z86.711 Personal history of pulmonary embolism; M48.00 Spinal stenosis, site unspecified
CPT/HCPCS: 36415; 36416; 36430; 36591; 80048; 80053; 80076; 82962; 84145; 86850; 86900; 86901; 86920; 87040; 93005; 96361; 96365; 96366; 96368; 96375; 99239; 99255; 99285; 99291; E0191; U0003; 71045; 81003; 81015; 83605; 83735; 84439; 84443; 84484; 85014; 85018; 85025; 85610; 85730; 87086; 93010; J1720; J2543; P9016